=== PATIENT | female | born 1960 | race American Indian/Alaskan Native ===

== ENCOUNTER 2016-09-21 06:10 | Day surgery (SDC) | payer BC ==
[2016-09-21] MEDS ORDERED: ECOTRIN PO ONE (06:46)
[2016-09-21] MEDS ORDERED: NACL 0.9% 500 ML 500 ML IV SCH (07:00)
[2016-09-21] MEDS ORDERED: CALAN ONE (08:31)
[2016-09-21] MEDS ORDERED: HEPARIN/NS 5000 UNIT/500ML(CATH LAB) 1,000 ML IR ONE (08:31)
[2016-09-21] MEDS ORDERED: HEPARIN 10,000 UNITS/10 ML ONE (08:31)
[2016-09-21] MEDS ORDERED: NITROGLYCERIN SYRINGE 3 ML ONE (08:32)
[2016-09-21] MEDS: XYLOCAINE 2% INFILTRATI ONE ×2 (08:56→09:10)
[2016-09-21] MEDS: VERSED ONE ×3 (08:56→09:13)
[2016-09-21] MEDS: SUBLIMAZE ONE ×3 (08:56→09:13)
[2016-09-21] MEDS ORDERED: APRESOLINE ONE (09:06)
[2016-09-21] MEDS ORDERED: NORMODYNE IV ONE (09:10)
[2016-09-21] MEDS ORDERED: WATER FOR INJ (PF) 0 ML ONE (09:14)
[2016-09-21] MEDS ORDERED: ANGIOMAX IV ONE (09:14)
[2016-09-21] MEDS ORDERED: NACL 0.9% 0 ML ONE (09:14)
[2016-09-21] MEDS ORDERED: NITROSTAT SL ONE (09:16)
[2016-09-21] MEDS ORDERED: LASIX ONE (09:19)
--- NOTE | 2016-09-21 09:43 | Short Stay Summary ---
Short Stay Documentation Date of service: 09/21/16 - History H&P: obtained from office - Allergies and Medications Current Medications: Allergies Penicillins Allergy (Severe, Verified 09/28/15 09:22) GO INTO SHOCK Home Medications Medication Instructions Recorded Confirmed Last Taken Type Aspirin EC [Aspirin Enteric Coated 81 mg PO QDAY #30 tablet 09/30/15 09/21/16 Rx TAB] Furosemide [Lasix TAB] 40 mg PO QDAY #30 tablet 09/30/15 09/21/16 09/20/16 Rx Valsartan [Diovan] 320 mg PO DAILY #60 tablet 09/30/15 09/21/16 09/20/16 Rx metFORMIN [Glucophage] 500 mg PO QDAY #30 tab 09/30/15 09/21/16 09/20/16 Rx oxyCODONE /ACETAMINOPHEN [Percocet 1 tab PO Q6H PRN #20 tablet 09/30/15 Unknown Rx 5/325 mg] cloNIDine [Catapres] 0.2 mg PO BID 09/21/16 09/21/16 09/20/16 History Active Medications Sodium Chloride (Nacl 0.9% 500 Ml) 500 mls @ 50 mls/hr IV DIRECT ANN MARIE Stop: 09/21/16 16:59 Last Admin: 09/21/16 08:00 Dose: 50 mls/hr - Brief post op/procedure progress note Date of procedure: 09/21/16 Pre-op diagnosis: sob Post-op diagnosis: same Procedure: see report Anesthesia: local Estimated blood loss: none Pathology: none - Disposition Condition at discharge: Good Disposition: DISCHARGED TO HOME OR SELFCARE - Discharge Diagnoses (1) SOBOE (shortness of breath on exertion) Status: Acute (2) Acute on chronic diastolic heart failure Status: Chronic (3) COPD with chronic bronchitis Status: Chronic (4) CAD (coronary artery disease) Status: Chronic Qualifiers: Coronary Disease-Associated Artery/Lesion type: [place] artery [place] vs. transplanted heart: comanche heart Associated angina: with stable angina Qualified Code(s): I25.118 - Atherosclerotic heart disease of [place] coronary artery with other forms of angina pectoris (5) Hyperlipidemia Status: Chronic Qualifiers: Hyperlipidemia type: mixed hyperlipidemia Qualified Code(s): E78.2 - Mixed hyperlipidemia (6) Hypertension Status: Chronic Qualifiers: Hypertension type: essential hypertension Qualified Code(s): I10 - Essential (primary) hypertension (7) Morbid obesity Status: Chronic Qualifiers: Obesity type: due to excess calories Qualified Code(s): E66.01 - Morbid ( severe) obesity due to excess calories (8) Obstructive sleep apnea Status: Chronic (9) Tobacco abuse Status: Chronic Short Stay Discharge Plan Activity: advance as tolerated Diet: low fat, low cholesterol, low salt, diabetic Wound: keep clean and dry Special Instructions: hold Metformin (for two days) Follow up with: VIPUL JACOBS MD [Primary Care Provider] - 7 Days
--- NOTE | 2016-09-21 10:35 | Cardiac Catherization Report ---
LEFT HEART CATHETERIZATION ORDERING PHYSICIAN: Emmanuel Garsia M.D. CLINICAL INFORMATION: This is a 56-year-old female with morbid obesity, smoker, hypertension and has known coronary artery disease, PCI of the ramus several years ago last year had PCI of the mid RCA with a drug-eluting Resolute 3, presents with shortness of breath with minimal exertion with elevated BP, and in view of patient's risk factors and is on appropriate medications here for left heart catheterization. Left heart catheterization performed via the right radial artery, sterile technique, local anesthesia, 6-Namibian radial sheath inserted. FINDINGS: Left system with a JL3.5 catheter. It is a short left main. LAD is a large caliber vessel that is patent from proximally and distally is a wraparound LAD with mild luminal irregularities. Diagonal 1, diagonal 2, and medium caliber vessels are patent. Ramus is a medium caliber vessel, mid stent is widely patent just proximal to that is about 20% lesion. Circumflex and AV groove is a large caliber vessel, patent. OM1 is a medium caliber vessel, has a mid diffuse 50%. RCA engaged with JR4, is a medium caliber vessel with moderate tortuosity, proximal is patent, mid stent widely patent distal patent. Small PDA and PLV. LV gram done in the JAQUELINE and LYNNE view shows normal LV function, LVEDP of 40 to 45 mmHg, LV is 198/18, aortic is 204/113, no gradient across the aortic valve on pullback. 5-Namibian catheters were taken over a 6-Namibian sheath taken out. Radial dressing applied. No hematoma. No bleeding. SUMMARY: 1. Nonobstructive coronary artery disease left main short and patent. LAD large caliber wraparound LAD with mild luminal irregularities. Diagonal 1 and diagonal 2 are patent, circumflex and AV groove patent. Ramus stent patent, proximally 20%. OM1 is medium caliber vessel to the mid 50%. RCA mid stent widely patent with moderate tortuosity. 2. Normal LV function with elevated left end-diastolic pressure. The patient's shortness of breath for uncontrolled BP and diastolic dysfunction. The patient received 40 of Lasix during the procedure and also IV labetalol and hydralazine for better BP control. JOB# [id number] KINA/MARCK
[2016-09-21 11:22] VITALS: BP 157/91
== END 2016-09-21 11:40 | disposition home or self-care (01) ==
LOC: OPU 06:10
PROVIDERS: ATTEND Internal Medicine
DX: I25.10 Atherosclerotic heart disease of native coronary artery without angina pectoris (principal); I11.0 Hypertensive heart disease with heart failure; I50.33 Acute on chronic diastolic (congestive) heart failure; J44.9 Chronic obstructive pulmonary disease, unspecified; F17.210 Nicotine dependence, cigarettes, uncomplicated; E78.5 Hyperlipidemia, unspecified; G47.33 Obstructive sleep apnea (adult) (pediatric); E66.01 Morbid (severe) obesity due to excess calories; Z68.42 Body mass index [BMI] 45.0-49.9, adult; Z95.5 Presence of coronary angioplasty implant and graft; Z79.899 Other long term (current) drug therapy
CPT/HCPCS: 93005; 93010; 93458; C1894; J0360; J1644; J1940; J2250; J3010; J7040; J0583; Q9967

== ENCOUNTER 2018-06-19 15:01 | Inpatient (IN) | payer BC ==
[2018-06-19] MEDS ORDERED: ASPIRIN PO ONE (15:20)
--- NOTE | 2018-06-19 15:20 | Emergency Department Report ---
Blank Doc - Documentation Documentation: This is a 58-year-old female c/o chest pain and shortness of breathe x2 days. Patient stated that feels like someone is sitting on her chest. Patient also has some nausea and vomiting. Denies any radiation. PMH includes Cardiac stents, CHF, HTN, DM Will order EKG, Labs, CXR Sent to Main ED for further evaluation and treatment
[2018-06-19] MEDS ORDERED: NITROSTAT SL ONE (15:21)
[2018-06-19] MEDS ORDERED: BABY ASPIRIN ONE (15:24)
[2018-06-19 15:51] LABS: Basophils # (Auto) 0.1 K/mm3 (0.0-0.1); Basophils % (Auto) 0.9 % (0.0-1.8); Eosinophils # (Auto) 0.3 K/mm3 (0.0-0.4); Eosinophils % (Auto) 4.6 % (0.0-4.3); Hematocrit 32.7 % (30.3-42.9); Hemoglobin 10.1 gm/dl (10.1-14.3); Lymphocytes # (Auto) 1.6 K/mm3 (1.2-5.4); Lymphocytes % (Auto) 22.4 % (13.4-35.0); Mean Corpuscular HGB Conc 31 % (30-34); Monocytes # (Auto) 0.6 K/mm3 (0.0-0.8); Monocytes % (Auto) 7.7 % (0.0-7.3); Platelet Count 325 K/mm3 (140-440); Red Blood Count 4.97 M/mm3 (3.65-5.03)
[2018-06-19 15:52] LABS: Mean Corpuscular Volume 66 fl (79-97); Red Cell Distribution Width 20.8 % (13.2-15.2)
[2018-06-19 16:01] LABS: INR 0.9 (0.87-1.13)
[2018-06-19 16:16] LABS: Partial Thromboplastin Time 62.1 Sec. (24.2-36.6)
--- NOTE | 2018-06-19 16:16 | XRay Report ---
FINAL REPORT PROCEDURE: Chest. TECHNIQUE: Portable AP view. HISTORY: Chest pain. COMPARISON: No prior studies are available for comparison. FINDINGS: The radiograph is underpenetrated. The heart size is enlarged. There is tortuosity of the thoracic ao rta. The lungs are grossly clear. There are no pleural effusions. The soft tissues and regional skele ton are unremarkable. IMPRESSION: Limited study. Mild cardiomegaly.
[2018-06-19 16:50] LABS: Alanine Aminotransferase 11 units/L (7-56); Albumin 3.4 g/dL (3.9-5); BUN/Creatinine Ratio 17; Blood Urea Nitrogen 12 mg/dL (7-17); Calcium 8.6 mg/dL (8.4-10.2); Hemolysis Index 15
[2018-06-19] MEDS ORDERED: MORPHINE IV ONE ×2 (16:56→19:35)
[2018-06-19] MEDS ORDERED: NORMODYNE IV ONE (16:56)
[2018-06-19 17:25] LABS: Chol/HDL Ratio 4.57 %; HDL Cholesterol 28 mg/dL (40-59); LDL Cholesterol,Direct 92 mg/dL (50-130)
[2018-06-19] MEDS ORDERED: NITRO-BID 2% TP ONE (17:28)
--- NOTE | 2018-06-19 17:29 | Emergency Department Report ---
ED Chest Pain HPI - General Chief Complaint: Chest Pain Stated Complaint: CHEST PAIN Time Seen by Provider: 06/19/18 15:21 Source: patient Mode of arrival: Ambulatory Limitations: No Limitations - History of Present Illness Initial Comments: 58 year-old female presents to the emergency department from home with complaint of some midsternal to left-sided chest pain, nausea, vomiting and diarrhea, that all started about Saturday, 4 days ago. Patient says it feels like "something is sitting on my chest." There is associated shortness of breath. She also complains of some right ear pain and throat pain. She denies any fever. Patient has a past medical history of hypertension, CHF, coronary artery disease with stents. She is a tobacco smoker. No recent travel or sick contacts at home. She did not take anything for her symptoms prior to presentation. Primary care physician is Dr. Marion and she follows with [facility] cardiology. Severity scale (0 -10): 10 - Related Data Home Medications Medication Instructions Recorded Confirmed Last Taken Clonidine HCl [Catapres] 0.3 mg PO BID 06/19/18 06/19/18 Unknown Furosemide [Lasix] 80 mg PO DAILY 06/19/18 06/19/18 Unknown Nitroglycerin [Nitrostat] 0.4 mg SL TID 06/19/18 06/19/18 Unknown Allergies Allergy/AdvReac Type Severity Reaction Status Date / Time Penicillins Allergy Severe GO INTO Verified 06/19/18 15:03 SHOCK Heart Score - HEART Score History: Moderately suspicious EKG: Non-specific Age: 45-65 Risk factors: > 3 risk factors or hx of atherosclerotic disease Troponin: > 3x normal limit HEART Score: 7 - Critical Actions Critical Actions: >7 pts:50-65% risk of adverse cardiac event. Early invasive measures ED Review of Systems ROS: Stated complaint: CHEST PAIN Other details as noted in HPI Comment: All other systems reviewed and negative Constitutional: denies: chills, fever Eyes: denies: eye pain, vision change ENT: ear pain, throat pain Respiratory: shortness of breath. denies: cough Cardiovascular: chest pain. denies: edema Gastrointestinal: denies: abdominal pain, vomiting Genitourinary: denies: dysuria, discharge Musculoskeletal: denies: back pain, arthralgia Skin: denies: rash, lesions Neurological: denies: headache, weakness ED Past Medical Hx - Past Medical History Hx Hypertension: Yes Hx Heart Attack/AMI: No Hx Congestive Heart Failure: Yes Hx Diabetes: Yes Hx Deep Vein Thrombosis: Yes Hx Arthritis: Yes Hx COPD: Yes Additional medical history: CAD - Surgical History Hx Coronary Stent: Yes (2004, 2007, 09/2015) Hx Cholecystectomy: Yes Hx Appendectomy: Yes Additional Surgical History: HYSTERECTOMY. TONSILLECTOMY - Social History Smoking Status: Unknown if ever smoked Substance Use Type: None - Medications Home Medications: Home Medications Medication Instructions Recorded Confirmed Last Taken Type Clonidine HCl [Catapres] 0.3 mg PO BID 06/19/18 06/19/18 Unknown History Furosemide [Lasix] 80 mg PO DAILY 06/19/18 06/19/18 Unknown History Nitroglycerin [Nitrostat] 0.4 mg SL TID 06/19/18 06/19/18 Unknown History ED Physical Exam - General Limitations: No Limitations - Other Other exam information: GENERAL: The patient is well-developed well-nourished. HEENT: Normocephalic. Atraumatic. Patient has moist mucous membranes. Oropharynx is clear. Normal-appearing bilateral external ear canals and tympanic membranes. EYES: Extraocular motions are intact. Pupils are equal and reactive to light bilaterally. NECK: Supple. Trachea is midline. CHEST/LUNGS: Clear to auscultation. There is no respiratory distress noted. No chest pain to palpation of the chest wall. HEART/CARDIOVASCULAR: Regular. There is no tachycardia. There is no obvious murmur. ABDOMEN: Abdomen is soft, nontender. Patient has normal bowel sounds. Obese habitus. SKIN: Skin is warm and dry. NEURO: The patient is awake, alert, and oriented. The patient is cooperative. The patient has no focal neurologic deficits. The patient has normal speech. MUSCULOSKELETAL: There is no tenderness or deformity. There is no limitation range of motion. There is no evidence of acute injury. ED Course Vital Signs 06/19/18 06/19/18 06/19/18 15:20 15:23 15:28 Temperature 98.4 F Pulse Rate 105 H 105 H 105 H Respiratory 26 H Rate Blood Pressure 219/137 219/137 219/137 Blood Pressure [Right] O2 Sat by Pulse 93 100 Oximetry 06/19/18 06/19/18 06/19/18 15:42 15:45 16:01 Temperature Pulse Rate 105 H 97 H 89 Respiratory 22 23 Rate Blood Pressure Blood Pressure [Right] O2 Sat by Pulse 98 98 Oximetry 06/19/18 06/19/18 06/19/18 16:15 16:31 16:45 Temperature Pulse Rate 75 93 H 76 Respiratory 17 14 15 Rate Blood Pressure Blood Pressure [Right] O2 Sat by Pulse 95 95 91 Oximetry 06/19/18 06/19/18 06/19/18 17:01 17:15 17:31 Temperature Pulse Rate 84 80 81 Respiratory 20 20 21 Rate Blood Pressure 198/87 198/87 Blood Pressure [Right] O2 Sat by Pulse 96 91 94 Oximetry 06/19/18 06/19/18 06/19/18 17:45 18:01 19:19 Temperature 98.3 F Pulse Rate 74 73 88 Respiratory 15 15 20 Rate Blood Pressure 198/87 198/87 Blood Pressure 196/89 [Right] O2 Sat by Pulse 94 91 97 Oximetry - Consultations Consultation #1: I spoke with the preassembler and inspector air conditioning installer for [facility], Dr. Hernandez. He recommended starting heparin, Nitropaste, nothing after midnight to eat and they will see the patient has a consult. 06/19/18 20:07 LAMIN score - Lamin Score Age > 65: (0) No Aspirin use within the Past 7 Days: (1) Yes 3 or more CAD Risk Factors: (1) Yes 2 or more Angina events in past 24 hrs: (1) Yes Known CAD with more than 50% Stenosis: (1) Yes Elevated Cardiac Markers: (0) No ST Deviation Greater than 0.5mm: (0) No LAMIN Score: 4 ED Medical Decision Making - Lab Data Result diagrams: 06/19/18 15:40 06/19/18 16:13 - EKG Data -: EKG Interpreted by Me EKG shows normal: sinus rhythm, axis, intervals, QRS complexes (Q waves to the septal leads), ST-T waves Rate: normal - EKG Data When compared to previous EKG there are: no significant change Interpretation: unchanged when compared t (03/15/17) - Radiology Data Radiology results: report reviewed, image reviewed interpreted by me: Chest x-ray does not show any pneumothorax, pleural effusion, pneumonia or obvious focal consolidation. PROCEDURE: CT angiogram chest with contrast. TECHNIQUE: Computerized tomographic angiography of the chest was performed after the IV injection of iodinated nonionic contrast including image processing. The image data was postprocessed using 2- dimensional multiplanar reformatted (MPR) and 3-dimensional (MIP and/or volume rendered) techniques. HISTORY: Chest pain, elevated D-dimer. COMPARISON: No prior studies are available for comparison. FINDINGS: Image quality is limited by the patient's obesity. The trachea and central bronchi appear normal. There is mild subsegmental atelectasis located laterally in the lingula. The lungs are otherwise grossly clear. There are no pleural effusions. The thoracic aorta has a normal caliber without evidence of dissection. The pulmonary arteries enhance normally. There are no definite filling defects to indicate pulmonary embolism. There are small nonspecific mediastinal lymph nodes. The heart size is mildly enlarged. The adrenal glands are not enlarged. The thoracic skeleton appears intact. IMPRESSION: No evidence of pulmonary embolism. Mild cardiomegaly. Transcribed By: RAMSEY Dictated By: JEAN CLAUDE MOORE MD Electronically Authenticated By: JEAN CLAUDE MOORE MD Signed Date/Time: 06/19/181956 - Medical Decision Making Patient presents with a four-day history of chest pain, nausea, vomiting, diarrhea. Just complains of some right ear pain. EKG does not show any signs of ST elevation WI. Chest x-ray does not show any focal consolidation, pneumothorax, pleural effusions, pneumonia or any other acute process. Patient does have an elevated d-dimer and therefore a CT angiography of the chest was done but there was no signs of any pulmonary embolism. Patient does have eleva abhinav troponin levels that are trending upwards without any renal insufficiency. I spoke with cardiology and they are aware of the patient's presentation, lab results, EKG and will see the patient is a consult. The patient has been started on a heparin drip and given a 1 inch Nitropaste. The patient will be admitted to the hospital for further evaluation and treatment was accepted for admission by the hospitalist service. - Differential Diagnosis WI, PE, Costochondritis, Gerd, Pneumonia Critical Care Time: Yes Critical care time in (mins) excluding proc time.: 35 Critical care attestation.: If time is entered above; I have spent that time in minutes in the direct care of this critically ill patient, excluding procedure time. Critical time has been spent on this patient during her initial evaluation, multiple re-evaluations, ordering and interpretation of labs and imaging, discussion with the hospitalist and cardiology service. There is a high probability of clinically significant, sudden, or life-threatening deterioration that has required multiple and direct attention, intervention, and management. Critical Care Time: 35 minutes ED Disposition Clinical Impression: NSTEMI (non-ST elevated myocardial infarction), Hypertensive urgency, Acute chest pain Disposition: 09 OP ADMIT IP TO THIS HOSP Is pt being admited?: Yes Condition: Serious Time of Disposition: 19:32
[2018-06-19] MEDS ORDERED: HEPARIN 10,000 UNITS/10 ML IV ONE (18:36)
[2018-06-19] MEDS ORDERED: HEPARIN/ 0.45% NACL-25,000 UNIT/500 ML 25,000 UNIT/500 ML BAG IV SCH (19:00)
--- NOTE | 2018-06-19 19:57 | Cat Scan Report ---
FINAL REPORT PROCEDURE: CT angiogram chest with contrast. TECHNIQUE: Computerized tomographic angiography of the chest was performed after the IV injection of iodinated nonionic contrast including image processing. The image data was postprocessed using 2-dim ensional multiplanar reformatted (MPR) and 3-dimensional (MIP and/or volume rendered) techniques. HISTORY: Chest pain, elevated D-dimer. COMPARISON: No prior studies are available for comparison. FINDINGS: Image quality is limited by the patient's obesity. The trachea and central bronchi appear normal. The re is mild subsegmental atelectasis located laterally in the lingula. The lungs are otherwise grossly clear. There are no pleural effusions. The thoracic aorta has a normal caliber without evidence of d issection. The pulmonary arteries enhance normally. There are no definite filling defects to indicate pulmonary embolism. There are small nonspecific mediastinal lymph nodes. The heart size is mildly en larged. The adrenal glands are not enlarged. The thoracic skeleton appears intact. IMPRESSION: No evidence of pulmonary embolism. Mild cardiomegaly.
[2018-06-19] MEDS ORDERED: TYLENOL PO PRN (20:24)
[2018-06-19] MEDS ORDERED: NITROSTAT SL PRN (20:24)
[2018-06-19] MEDS ORDERED: SODIUM CHLORIDE FLUSH SYRINGE 10 ML IV PRN (20:24)
--- NOTE | 2018-06-19 21:26 | History and Physical Report ---
<IMELDA MCGEE - Last Filed: 06/20/18 02:32> History of Present Illness Date of examination: 06/19/18 Date of admission: 06/19/18 19:32 Chief complaint: chest pain History of present illness: Pt is a 58 year-old black female with PMHx od CAD s/p stent, DM type2, who presents to the ER today from home with complaint of midsternal chest pain x 4 days. Pt states that the symptoms started on Saturday (4 days ago), she developed chest pain, sudden nausea/vomiting and diarrhea, diaphoresis and SOB, pt states that the pain is located in the midsternal area, it was a pressure-like pain, it felt like "something is sitting on my chest." Pt states that she was having SOB, rigging in the right ear pain and throat pain. Patient states at first she thought that she was getting sick, but she states when the chest pain increased and became persisted today she decided to come to the ER for evaluation. Pt denies any headache, denies LOC, denies chills, denies cough, denies chest congestion. In the ER, pt c/o chest pain 10/10 in intensity, EKG shows no ST elevation criteria, her first troponin was elevated at 0.261. Pt reports an intense family history of heart disease in her father side, most of the family in the father side is including her father and her grand mother. Pt states that she has been following with cardiology frequently for cardiac disease, her Primary care physician is Dr. Marion and her cardiology is with [facility]. Medications and Allergies Allergies Allergy/AdvReac Type Severity Reaction Status Date / Time Penicillins Allergy Severe GO INTO Verified 06/19/18 15:03 SHOCK Home Medications Medication Instructions Recorded Confirmed Last Taken Type Clonidine HCl [Catapres] 0.3 mg PO BID 06/19/18 06/19/18 Unknown History Furosemide [Lasix] 80 mg PO DAILY 06/19/18 06/19/18 Unknown History Nitroglycerin [Nitrostat] 0.4 mg SL TID 06/19/18 06/19/18 Unknown History Active Meds: Active Medications Acetaminophen (Tylenol) 650 mg PO Q4H PRN PRN Reason: Pain MILD(1-3)/Fever >100.5/ALAS Atorvastatin Calcium (Lipitor) 40 mg PO QHS [facility] Famotidine (Pepcid) 20 mg IV BID [facility] Heparin Sodium/Sodium Chloride (Heparin/ 0.45% Nacl-25,000 Unit/500 Ml) 25,000 unit in 500 mls @ 20 mls/hr IV TITRATE [facility]; Protocol Last Admin: 06/19/18 19:30 Dose: 1,000 units/hr, 20 mls/hr Documented by: Metoprolol Tartrate (Lopressor) 50 mg PO BID [facility] Morphine Sulfate (Morphine) 2 mg IV Q4H PRN PRN Reason: Pain, Moderate (4-6) Nitroglycerin (Nitrostat) 0.4 mg SL .Q5MIN PRN PRN Reason: Chest Pain Ondansetron HCl (Zofran) 4 mg IV Q8H PRN PRN Reason: Nausea And Vomiting Sodium Chloride (Sodium Chloride Flush Syringe 10 Ml) 10 ml IV BID [facility] Sodium Chloride (Sodium Chloride Flush Syringe 10 Ml) 10 ml IV PRN PRN PRN Reason: LINE FLUSH Exam - Constitutional Vitals: Temp Pulse Resp BP Pulse Ox 98.3 F 75 15 187/98 90 06/19/18 19:19 06/19/18 20:31 06/19/18 20:31 06/19/18 20:31 06/19/18 20:31 General appearance: Present: no acute distress - EENT Eyes: Present: PERRL, EOM intact ENT: hearing intact - Neck Neck: Present: normal ROM - Respiratory Respiratory effort: normal Respiratory: bilateral: diminished - Cardiovascular Rhythm: regular - Extremities Extremities: no ischemia - Abdominal General gastrointestinal: Present: non-tender, non-distended Female genitourinary: Present: deferred - Rectal Rectal Exam: deferred - Integumentary Integumentary: Present: warm, dry - Musculoskeletal Musculoskeletal: strength equal bilaterally - Psychiatric Psychiatric: appropriate mood/affect - Neurologic Neurologic: moves all extremities Results - Labs CBC & Chem 7: 06/19/18 15:40 06/19/18 16:13 Labs: Laboratory Last Values WBC 7.3 K/mm3 (4.5-11.0) 06/19/18 15:40 RBC 4.97 M/mm3 (3.65-5.03) 06/19/18 15:40 Hgb 10.1 gm/dl (10.1-14.3) 06/19/18 15:40 Hct 32.7 % (30.3-42.9) 06/19/18 15:40 MCV 66 fl (79-97) L 06/19/18 15:40 MCH 20 pg (28-32) L 06/19/18 15:40 MCHC 31 % (30-34) 06/19/18 15:40 RDW 20.8 % (13.2-15.2) H 06/19/18 15:40 Plt Count 325 K/mm3 (140-440) 06/19/18 15:40 Lymph % (Auto) 22.4 % (13.4-35.0) 06/19/18 15:40 [place] % (Auto) 7.7 % (0.0-7.3) H 06/19/18 15:40 Eos % (Auto) 4.6 % (0.0-4.3) H 06/19/18 15:40 Baso % (Auto) 0.9 % (0.0-1.8) 06/19/18 15:40 Lymph # 1.6 K/mm3 (1.2-5.4) 06/19/18 15:40 [place] # 0.6 K/mm3 (0.0-0.8) 06/19/18 15:40 Eos # 0.3 K/mm3 (0.0-0.4) 06/19/18 15:40 Baso # 0.1 K/mm3 (0.0-0.1) 06/19/18 15:40 Seg Neutrophils % 64.4 % (40.0-70.0) 06/19/18 15:40 Seg Neutrophils # 4.7 K/mm3 (1.8-7.7) 06/19/18 15:40 PT 12.6 Sec. (12.2-14.9) 06/19/18 15:40 INR 0.90 (0.87-1.13) 06/19/18 15:40 APTT 65.0 Sec. (24.2-36.6) H* 06/19/18 17:40 D-Dimer 621.4 ng/mlDDU (0-234) H 06/19/18 15:40 Sodium 141 mmol/L (137-145) 06/19/18 16:13 Potassium 3.8 mmol/L (3.6-5.0) 06/19/18 16:13 Chloride 106.0 mmol/L (98-107) 06/19/18 16:13 Carbon Dioxide 24 mmol/L (22-30) 06/19/18 16:13 Anion Gap 15 mmol/L 06/19/18 16:13 BUN 12 mg/dL (7-17) 06/19/18 16:13 Creatinine 0.7 mg/dL (0.7-1.2) 06/19/18 16:13 Estimated GFR > 60 ml/min 06/19/18 16:13 BUN/Creatinine Ratio 17 % 06/19/18 16:13 Glucose 94 mg/dL (65-100) 06/19/18 16:13 Calcium 8.6 mg/dL (8.4-10.2) 06/19/18 16:13 Total Bilirubin < 0.20 mg/dL (0.1-1.2) 06/19/18 16:13 AST 23 units/L (5-40) 06/19/18 16:13 ALT 11 units/L (7-56) 06/19/18 16:13 Alkaline Phosphatase 159 units/L (35-129) H 06/19/18 16:13 Troponin T 0.347 ng/mL (0.00-0.029) H* D 06/19/18 17:40 Total Protein 7.1 g/dL (6.3-8.2) 06/19/18 16:13 Albumin 3.4 g/dL (3.9-5) L 06/19/18 16:13 Albumin/Globulin Ratio 0.9 % 06/19/18 16:13 Triglycerides 87 mg/dL (2-149) 06/19/18 16:13 Cholesterol 128 mg/dL (50-199) 06/19/18 16:13 LDL Cholesterol Direct 92 mg/dL (50-130) 06/19/18 16:13 HDL Cholesterol 28 mg/dL (40-59) L 06/19/18 16:13 Cholesterol/HDL Ratio 4.57 % 06/19/18 16:13 Assessment and Plan Assessment and plan: 1. Chest pain 2. NSTEMI 3. CAD/s/p PTCA with stent 4. Accelerated HTN 5. Uncontrolled DM type 2 6. Morbid obesity 7. Tobacco used disorder Plan: Admit to medtele for chest pain Continue CE Q6hr x2 more Heparin gtt infusing per protocol Nitro sublingual PRN for chest pain Repeat EKG in am Morphine PRN for chest pain Resume home meds Accu check ACHS with insulin per sliding scale Consult cardiology for evaluation in am Further plan per cardiology recommendation Plan was d/w pt, voiced understanding Pt's condition and plan of care discussed with Advance Directives: Yes VTE prophylaxis?: Mechanical Plan of care discussed with patient/family: Yes <HUONG MEAD - Last Filed: 06/20/18 03:57> History of Present Illness Date of admission: 06/19/18 19:32 Medications and Allergies Active Meds: Active Medications Acetaminophen (Tylenol) 650 mg PO Q4H PRN PRN Reason: Pain MILD(1-3)/Fever >100.5/ALAS Aspirin (Baby Aspirin) 81 mg PO QDAY [facility] Atorvastatin Calcium (Lipitor) 40 mg PO QHS [facility] Last Admin: 06/19/18 21:56 Dose: 40 mg Documented by: Famotidine (Pepcid) 20 mg IV BID [facility] Last Admin: 06/19/18 21:56 Dose: 20 mg Documented by: Furosemide (Lasix) 80 mg PO DAILY@0600 [facility] Hydralazine HCl (Apresoline) 5 mg IV Q6H PRN PRN Reason: Hypertension Last Admin: 06/20/18 02:22 Dose: 5 mg Documented by: Heparin Sodium/Sodium Chloride (Heparin/ 0.45% Nacl-25,000 Unit/500 Ml) 25,000 unit in 500 mls @ 20 mls/hr IV TITRATE [facility]; Protocol Last Titration: 06/20/18 03:35 Dose: 1,500 units/hr, 30 mls/hr Documented by: Lisinopril (Zestril) 2.5 mg PO QDAY [facility] Metoprolol Tartrate (Lopressor) 50 mg PO BID [facility] Last Admin: 06/19/18 21:56 Dose: 50 mg Documented by: Morphine Sulfate (Morphine) 2 mg IV Q4H PRN PRN Reason: Pain, Moderate (4-6) Last Admin: 06/19/18 22:12 Dose: 2 mg Documented by: Nitroglycerin (Nitrostat) 0.4 mg SL .Q5MIN PRN PRN Reason: Chest Pain Ondansetron HCl (Zofran) 4 mg IV Q8H PRN PRN Reason: Nausea And Vomiting Last Admin: 06/19/18 22:12 Dose: 4 mg Documented by: Sodium Chloride (Sodium Chloride Flush Syringe 10 Ml) 10 ml IV BID [facility] Last Admin: 06/19/18 21:57 Dose: 10 ml Documented by: Sodium Chloride (Sodium Chloride Flush Syringe 10 Ml) 10 ml IV PRN PRN PRN Reason: LINE FLUSH Exam - Constitutional Vitals: Temp Pulse Resp BP Pulse Ox 98.4 F 67 18 177/103 99 06/19/18 23:57 06/19/18 23:57 06/19/18 23:57 06/20/18 02:22 06/19/18 23:57 Results - Labs CBC & Chem 7: 06/19/18 15:40 06/19/18 16:13 Labs: Laboratory Last Values WBC 7.3 K/mm3 (4.5-11.0) 06/19/18 15:40 RBC 4.97 M/mm3 (3.65-5.03) 06/19/18 15:40 Hgb 10.1 gm/dl (10.1-14.3) 06/19/18 15:40 Hct 32.7 % (30.3-42.9) 06/19/18 15:40 MCV 66 fl (79-97) L 06/19/18 15:40 MCH 20 pg (28-32) L 06/19/18 15:40 MCHC 31 % (30-34) 06/19/18 15:40 RDW 20.8 % (13.2-15.2) H 06/19/18 15:40 Plt Count 325 K/mm3 (140-440) 06/19/18 15:40 Lymph % (Auto) 22.4 % (13.4-35.0) 06/19/18 15:40 [place] % (Auto) 7.7 % (0.0-7.3) H 06/19/18 15:40 Eos % (Auto) 4.6 % (0.0-4.3) H 06/19/18 15:40 Baso % (Auto) 0.9 % (0.0-1.8) 06/19/18 15:40 Lymph # 1.6 K/mm3 (1.2-5.4) 06/19/18 15:40 [place] # 0.6 K/mm3 (0.0-0.8) 06/19/18 15:40 Eos # 0.3 K/mm3 (0.0-0.4) 06/19/18 15:40 Baso # 0.1 K/mm3 (0.0-0.1) 06/19/18 15:40 Seg Neutrophils % 64.4 % (40.0-70.0) 06/19/18 15:40 Seg Neutrophils # 4.7 K/mm3 (1.8-7.7) 06/19/18 15:40 PT 12.6 Sec. (12.2-14.9) 06/19/18 15:40 INR 0.90 (0.87-1.13) 06/19/18 15:40 APTT 65.0 Sec. (24.2-36.6) H* 06/19/18 17:40 D-Dimer 621.4 ng/mlDDU (0-234) H 06/19/18 15:40 Heparin Anti-Xa Level < 0.10 U.I./ml (0.3-0.7) L 06/20/18 02:37 Sodium 141 mmol/L (137-145) 06/19/18 16:13 Potassium 3.8 mmol/L (3.6-5.0) 06/19/18 16:13 Chloride 106.0 mmol/L (98-107) 06/19/18 16:13 Carbon Dioxide 24 mmol/L (22-30) 06/19/18 16:13 Anion Gap 15 mmol/L 06/19/18 16:13 BUN 12 mg/dL (7-17) 06/19/18 16:13 Creatinine 0.7 mg/dL (0.7-1.2) 06/19/18 16:13 Estimated GFR > 60 ml/min 06/19/18 16:13 BUN/Creatinine Ratio 17 % 06/19/18 16:13 Glucose 94 mg/dL (65-100) 06/19/18 16:13 Hemoglobin A1c 6.4 % (4-6) H 06/19/18 23:00 Calcium 8.6 mg/dL (8.4-10.2) 06/19/18 16:13 Total Bilirubin < 0.20 mg/dL (0.1-1.2) 06/19/18 16:13 AST 23 units/L (5-40) 06/19/18 16:13 ALT 11 units/L (7-56) 06/19/18 16:13 Alkaline Phosphatase 159 units/L (35-129) H 06/19/18 16:13 Total Creatine Kinase 704 units/L (30-135) H 06/20/18 02:37 CK-MB (CK-2) 107.7 ng/mL (0.0-4.0) H 06/20/18 02:37 CK-MB (CK-2) Rel Index 15.2 (0-4) H 06/20/18 02:37 Troponin T 0.347 ng/mL (0.00-0.029) H* D 06/19/18 17:40 Total Protein 7.1 g/dL (6.3-8.2) 06/19/18 16:13 Albumin 3.4 g/dL (3.9-5) L 06/19/18 16:13 Albumin/Globulin Ratio 0.9 % 06/19/18 16:13 Triglycerides 87 mg/dL (2-149) 06/19/18 16:13 Cholesterol 128 mg/dL (50-199) 06/19/18 16:13 LDL Cholesterol Direct 92 mg/dL (50-130) 06/19/18 16:13 HDL Cholesterol 28 mg/dL (40-59) L 06/19/18 16:13 Cholesterol/HDL Ratio 4.57 % 06/19/18 16:13 TSH 1.050 mlU/mL (0.270-4.200) 06/19/18 20:50 Assessment and Plan Assessment and plan: 58-year-old man with a history of hypertension, CHF, coronary artery disease, diabetes, COPD on 2 L oxygen, gout, tobacco abuse comes to the emergency room with complaints of chest pain, which she states feels as if someone is sitting on her chest. Patient became very diaphoretic, short of breath. Patient is being admitted for NSTEMI., Continue heparin drip, start beta vamsi, LETTY inhibitor, aspirin, statin, morphine,cardiology is consulted to see the patient
[2018-06-19] MEDS: LOPRESSOR PO SCH (21:56)
[2018-06-19] MEDS: PEPCID IV SCH (21:56)
[2018-06-19] MEDS ORDERED: SODIUM CHLORIDE FLUSH SYRINGE 10 ML IV SCH (22:00)
[2018-06-19] MEDS: ZOFRAN IV PRN (22:12)
[2018-06-19] MEDS: MORPHINE IV PRN (22:12)
[2018-06-20] MEDS ORDERED: APRESOLINE IV PRN ×2 (02:11→09:04)
[2018-06-20 03:18] LABS: Creatine Kinase MB 107.7 ng/mL (0.0-4.0)
[2018-06-20] MEDS ORDERED: HEPARIN 10,000 UNITS/10 ML IV ONE (03:41)
[2018-06-20] MEDS: MORPHINE IV PRN ×3 (05:56→21:30)
[2018-06-20] MEDS: ZOFRAN IV PRN (05:57)
[2018-06-20] MEDS ORDERED: LASIX PO SCH (06:00)
[2018-06-20] MEDS ORDERED: NACL 0.9% 500 ML 500 ML ONE (08:51)
[2018-06-20] MEDS ORDERED: HALFPRIN EC PO ONE (08:51)
[2018-06-20] MEDS ORDERED: TYLENOL ONE (09:02)
--- NOTE | 2018-06-20 09:13 | Consultation ---
History of Present Illness Consult date: 06/20/18 Requesting physician: CELESTINE DICKEY Consult reason: chest pain, elevated troponin History of present illness: This is a 58-year-old female with morbid obesity hypertension cholesterol known coronary disease smoker who for the last few days since Saturday had right-sided and left-sided chest pressure and some radiation to the left arm on and off thought it was food poisoning. Patient has some nausea and vomiting. No loss of consciousness no fever no chills no melena no syncope no seizures. Patient has chronic shortness of breath with exertion. Patient came to emergency room with 10 out of 10 chest pain and elevated troponin her than her normal And was admitted for acute coronary syndrome\non-ST elevation [place]. Patient been treated medically with recurrent chest pain received morphine earlier this morning. Past History Past Medical History: CAD, hypertension, hyperlipidemia Social history: smoking. denies: alcohol abuse, prescription drug abuse Medications and Allergies Allergies Allergy/AdvReac Type Severity Reaction Status Date / Time Penicillins Allergy Severe GO INTO Verified 06/19/18 15:03 SHOCK Home Medications Medication Instructions Recorded Confirmed Last Taken Type Clonidine HCl [Catapres] 0.3 mg PO BID 06/19/18 06/19/18 Unknown History Furosemide [Lasix] 80 mg PO DAILY 06/19/18 06/19/18 Unknown History Nitroglycerin [Nitrostat] 0.4 mg SL TID 06/19/18 06/19/18 Unknown History Active Meds: Active Medications Acetaminophen (Tylenol) 650 mg PO Q4H PRN PRN Reason: Pain MILD(1-3)/Fever >100.5/ALAS Last Admin: 06/20/18 09:01 Dose: 650 mg Documented by: Aspirin (Baby Aspirin) 81 mg PO QDAY [facility] Atorvastatin Calcium (Lipitor) 40 mg PO QHS [facility] Last Admin: 06/19/18 21:56 Dose: 40 mg Documented by: Famotidine (Pepcid) 20 mg IV BID [facility] Last Admin: 06/19/18 21:56 Dose: 20 mg Documented by: Furosemide (Lasix) 80 mg PO DAILY@0600 [facility] Last Admin: 06/20/18 05:53 Dose: 80 mg Documented by: Hydralazine HCl (Apresoline) 5 mg IV Q6H PRN PRN Reason: Hypertension Last Admin: 06/20/18 02:22 Dose: 5 mg Documented by: Hydralazine HCl (Apresoline) 20 mg IV ONCE ONE Stop: 06/20/18 09:05 Hydralazine HCl (Apresoline) 10 mg IV Q4HR PRN PRN Reason: Hypertension Heparin Sodium/Sodium Chloride (Heparin/ 0.45% Nacl-25,000 Unit/500 Ml) 25,000 unit in 500 mls @ 20 mls/hr IV TITRATE [facility]; Protocol Last Titration: 06/20/18 03:35 Dose: 1,500 units/hr, 30 mls/hr Documented by: Sodium Chloride (Nacl 0.9% 500 Ml) 500 mls @ 50 mls/hr IV DIRECT [facility] Stop: 06/20/18 19:59 Lisinopril (Zestril) 2.5 mg PO QDAY [facility] Metoprolol Tartrate (Lopressor) 50 mg PO BID [facility] Last Admin: 06/19/18 21:56 Dose: 50 mg Documented by: Miscellaneous Medication (Clonidine Hcl [Catapres]) 0.3 mg PO BID [facility] Morphine Sulfate (Morphine) 2 mg IV Q4H PRN PRN Reason: Pain, Moderate (4-6) Last Admin: 06/20/18 05:56 Dose: 2 mg Documented by: Nitroglycerin (Nitrostat) 0.4 mg SL .Q5MIN PRN PRN Reason: Chest Pain Ondansetron HCl (Zofran) 4 mg IV Q8H PRN PRN Reason: Nausea And Vomiting Last Admin: 06/20/18 05:57 Dose: 4 mg Documented by: Sodium Chloride (Sodium Chloride Flush Syringe 10 Ml) 10 ml IV BID [facility] Last Admin: 06/19/18 21:57 Dose: 10 ml Documented by: Sodium Chloride (Sodium Chloride Flush Syringe 10 Ml) 10 ml IV PRN PRN PRN Reason: LINE FLUSH Review of Systems All systems: negative Physical Examination Vital Signs Pulse BP Pulse Ox 105 H 219/137 93 06/19/18 15:20 06/19/18 15:20 06/19/18 15:20 General appearance: no acute distress, well-nourished HEENT: Positive: PERRL, Mucus Membranes Moist Neck: Positive: neck supple, trachea midline Cardiac: Positive: Reg Rate and Rhythm, S1/S2. Negative: Audible Murmur Lungs: Positive: clear to auscultation, Normal Breath Sounds Neuro: Positive: Grossly Intact Abdomen: Positive: Soft, Active Bowel Sounds. Negative: Tender, Distended Female genitourinary: deferred Skin: Positive: Clear Incision: Cardiac Cath Site Musculoskeletal: No Pain, Normal Range of Motion Extremities: Present: normal. Absent: edema Results 06/19/18 15:40 06/19/18 16:13 Cardiac Enzymes 06/19/18 06/20/18 Range/Units 16:13 02:37 AST 23 (5-40) units/L CK-MB (CK-2) 107.7 H (0.0-4.0) ng/mL Coagulation 06/19/18 06/19/18 Range/Units 15:40 17:40 PT 12.6 (12.2-14.9) Sec. INR 0.90 (0.87-1.13) APTT 62.1 H* 65.0 H* (24.2-36.6) Sec. Lipids 06/19/18 Range/Units 16:13 Triglycerides 87 (2-149) mg/dL Cholesterol 128 (50-199) mg/dL HDL Cholesterol 28 L (40-59) mg/dL Cholesterol/HDL Ratio 4.57 % CBC 06/19/18 Range/Units 15:40 WBC 7.3 (4.5-11.0) K/mm3 RBC 4.97 (3.65-5.03) M/mm3 Hgb 10.1 (10.1-14.3) gm/dl Hct 32.7 (30.3-42.9) % Plt Count 325 (140-440) K/mm3 Lymph # 1.6 (1.2-5.4) K/mm3 [place] # 0.6 (0.0-0.8) K/mm3 Eos # 0.3 (0.0-0.4) K/mm3 Baso # 0.1 (0.0-0.1) K/mm3 Comprehensive Metabolic Panel 06/19/18 Range/Units 16:13 Sodium 141 (137-145) mmol/L Potassium 3.8 (3.6-5.0) mmol/L Chloride 106.0 (98-107) mmol/L Carbon Dioxide 24 (22-30) mmol/L BUN 12 (7-17) mg/dL Creatinine 0.7 (0.7-1.2) mg/dL Glucose 94 (65-100) mg/dL Calcium 8.6 (8.4-10.2) mg/dL AST 23 (5-40) units/L ALT 11 (7-56) units/L Alkaline Phosphatase 159 H (35-129) units/L Total Protein 7.1 (6.3-8.2) g/dL Albumin 3.4 L (3.9-5) g/dL - Imaging and Cardiology Echo: report reviewed (03/2017 normal LV function impaired relaxation pattern no significant regurgitations) Cardiac cath: report reviewed (03/2017 left main. LAD patent mild luminal irregularities ramus stent patent proximal 20% circumflex patent RCA mid stents patent normal LV function) EKG interpretations - Telemetry EKG Rhythm: Sinus Rhythm (normal sinus rhythm nonspecific ST-T wave) Assessment and Plan Patient in view of elevated blood pressure recurrent chest pain with abnormal troponin suggestive of non-ST elevation [place] patient will proceed with cardiac catheterization continue medical management for blood pressure control patient states stopped smoking 2 weeks ago patient was explained the risk and benefits cardiac catheterization and has agreed - Patient Problems (1) Hypertensive urgency Current Visit: Yes Status: Acute (2) NSTEMI (non-ST elevated myocardial infarction) Current Visit: Yes Status: Acute (3) Acute exacerbation of CHF (congestive heart failure) Current Visit: No Status: Acute Qualifiers: Qualified Code(s): I50.43 - Acute on chronic combined systolic (congestive) and diastolic (congestive) heart failure (4) Respiratory failure Current Visit: No Status: Acute Qualifiers: Chronicity: acute Respiratory failure complication: hypoxia Qualified Code(s): J96.01 - Acute respiratory failure with hypoxia (5) Acute on chronic diastolic heart failure Current Visit: No Status: Chronic (6) Hyperlipidemia Current Visit: No Status: Chronic Qualifiers: Hyperlipidemia type: mixed hyperlipidemia Qualified Code(s): E78.2 - Mixed hyperlipidemia
[2018-06-20] MEDS ORDERED: SUBLIMAZE ONE (09:24)
[2018-06-20] MEDS ORDERED: HEPARIN/NS 5000 UNIT/500ML(CATH LAB) 1,000 ML IR ONE (09:24)
[2018-06-20] MEDS ORDERED: HEPARIN 10,000 UNITS/10 ML ONE (09:24)
[2018-06-20] MEDS ORDERED: CALAN ONE (09:25)
[2018-06-20] MEDS ORDERED: NITROGLYCERIN SYRINGE 3 ML ONE (09:25)
[2018-06-20] MEDS ORDERED: XYLOCAINE 2% INFILTRATI ONE (09:25)
[2018-06-20] MEDS: VERSED ONE ×2 (09:59→10:03)
[2018-06-20] MEDS ORDERED: NACL 0.9% 500 ML 500 ML IV SCH (10:00)
[2018-06-20] MEDS ORDERED: ZESTRIL PO SCH (10:00)
[2018-06-20] MEDS ORDERED: APRESOLINE IV ONE (10:00)
[2018-06-20] MEDS ORDERED: NON-FORMULARY (Clonidine Hcl [Catapres] 0.3 MG) PO SCH (10:00)
[2018-06-20] MEDS ORDERED: NORMODYNE IV ONE (10:08)
[2018-06-20] MEDS: ANGIOMAX IV ONE ×2 (10:12→10:18)
[2018-06-20] MEDS ORDERED: WATER FOR INJ (PF) ONE (10:13)
[2018-06-20] MEDS ORDERED: NACL 0.9% 50 ML ONE (10:13)
[2018-06-20] MEDS ORDERED: LASIX ONE (10:21)
[2018-06-20] MEDS ORDERED: ALUM-MAG HYDROX-SIMETH 200-200-20MG/5ML ONE (10:32)
[2018-06-20] MEDS ORDERED: PLAVIX ONE (10:32)
[2018-06-20] MEDS ORDERED: NACL 0.9% 1000 ML 1,000 ML IV SCH (11:00)
[2018-06-20] MEDS: CATAPRES PO SCH ×2 (13:37→21:32)
[2018-06-20] MEDS ORDERED: CATAPRES ONE (13:39)
--- NOTE | 2018-06-20 13:40 | Progress Note ---
Assessment and Plan Assessment and plan: --Non-ST elevation [place]; status post left heart catheterization; Left heart cath revealed left main patent LAD patent circumflex pain OM1 50% ramus 100% RCA stent patent EF 50% with elevated left end-diastolic pressure. PCI of the ramus with a drug- eluting 2.5 x 30 mm stent patient. Continue aspirin and Plavix and high-dose statin and beta vamsi and losartan Optimize blood pressure medications --Hypertensive urgency; continue current antihypertensives, adjusted dose When necessary hydralazine --History of coronary artery disease status post PCI/stent; Continue current cardiac medications, cardiology following --Type 2 diabetes mellitus; Accu-Chek sliding scale coverage ADA diet and insulin as needed --Morbid obesity; BMI 49.1; advised diet modification and exercise as tolerated and weight reduction, when medically stable --Ongoing tobacco use; smoking cessation, nicotine patch as needed --DVT prophylaxis; SCDs, Lovenox Closely monitor the patient and adjust management as needed Possible discharge home tomorrow if stable Plan of care reviewed with the patient and family and the I also discussed with executive talent acquisition consultant Dr. Hernandez History Interval history: Patient seen and examined medical records reviewed Patient was admitted for chest pain and non-ST elevation [place] Underwent heart cath, status post PCI Patient feels slightly better no new complaints Blood pressure sounds uncontrolled Alert awake oriented 3 Vital signs review Hospitalist Physical - Constitutional Vitals: Temp Pulse Resp BP Pulse Ox 98.5 F 86 17 150/80 99 06/20/18 11:15 06/20/18 13:37 06/20/18 13:00 06/20/18 13:37 06/20/18 13:00 General appearance: Present: no acute distress, well-nourished - EENT Eyes: Present: PERRL, EOM intact - Neck Neck: Present: supple, normal ROM - Respiratory Respiratory effort: normal Respiratory: bilateral: diminished, negative: rales, rhonchi, wheezing - Cardiovascular Rhythm: regular Heart Sounds: Present: S1 & S2 - Extremities Extremities: no ischemia, No edema - Abdominal General gastrointestinal: soft, non-tender, non-distended, normal bowel sounds - Integumentary Integumentary: Present: clear, warm - Psychiatric Psychiatric: appropriate mood/affect, cooperative - Neurologic Neurologic: CNII-XII intact, moves all extremities Results - Labs CBC & Chem 7: 06/21/18 05:50 06/21/18 05:50 Labs: Laboratory Last Values WBC 7.3 K/mm3 (4.5-11.0) 06/19/18 15:40 RBC 4.97 M/mm3 (3.65-5.03) 06/19/18 15:40 Hgb 10.1 gm/dl (10.1-14.3) 06/19/18 15:40 Hct 32.7 % (30.3-42.9) 06/19/18 15:40 MCV 66 fl (79-97) L 06/19/18 15:40 MCH 20 pg (28-32) L 06/19/18 15:40 MCHC 31 % (30-34) 06/19/18 15:40 RDW 20.8 % (13.2-15.2) H 06/19/18 15:40 Plt Count 325 K/mm3 (140-440) 06/19/18 15:40 Lymph % (Auto) 22.4 % (13.4-35.0) 06/19/18 15:40 [place] % (Auto) 7.7 % (0.0-7.3) H 06/19/18 15:40 Eos % (Auto) 4.6 % (0.0-4.3) H 06/19/18 15:40 Baso % (Auto) 0.9 % (0.0-1.8) 06/19/18 15:40 Lymph # 1.6 K/mm3 (1.2-5.4) 06/19/18 15:40 [place] # 0.6 K/mm3 (0.0-0.8) 06/19/18 15:40 Eos # 0.3 K/mm3 (0.0-0.4) 06/19/18 15:40 Baso # 0.1 K/mm3 (0.0-0.1) 06/19/18 15:40 Seg Neutrophils % 64.4 % (40.0-70.0) 06/19/18 15:40 Seg Neutrophils # 4.7 K/mm3 (1.8-7.7) 06/19/18 15:40 PT 12.6 Sec. (12.2-14.9) 06/19/18 15:40 INR 0.90 (0.87-1.13) 06/19/18 15:40 APTT 65.0 Sec. (24.2-36.6) H* 06/19/18 17:40 Activated Clotting Time 340 (74-137) H 06/20/18 10:39 D-Dimer 621.4 ng/mlDDU (0-234) H 06/19/18 15:40 Heparin Anti-Xa Level 0.10 U.I./ml (0.3-0.7) L 06/20/18 12:24 Sodium 141 mmol/L (137-145) 06/19/18 16:13 Potassium 3.8 mmol/L (3.6-5.0) 06/19/18 16:13 Chloride 106.0 mmol/L (98-107) 06/19/18 16:13 Carbon Dioxide 24 mmol/L (22-30) 06/19/18 16:13 Anion Gap 15 mmol/L 06/19/18 16:13 BUN 12 mg/dL (7-17) 06/19/18 16:13 Creatinine 0.7 mg/dL (0.7-1.2) 06/19/18 16:13 Estimated GFR > 60 ml/min 06/19/18 16:13 BUN/Creatinine Ratio 17 % 06/19/18 16:13 Glucose 94 mg/dL (65-100) 06/19/18 16:13 Hemoglobin A1c 6.4 % (4-6) H 06/19/18 23:00 Calcium 8.6 mg/dL (8.4-10.2) 06/19/18 16:13 Total Bilirubin < 0.20 mg/dL (0.1-1.2) 06/19/18 16:13 AST 23 units/L (5-40) 06/19/18 16:13 ALT 11 units/L (7-56) 06/19/18 16:13 Alkaline Phosphatase 159 units/L (35-129) H 06/19/18 16:13 Total Creatine Kinase 1017 units/L (30-135) H 06/20/18 12:24 CK-MB (CK-2) 138.0 ng/mL (0.0-4.0) H 06/20/18 12:24 CK-MB (CK-2) Rel Index 13.5 (0-4) H 06/20/18 12:24 Troponin T 4.130 ng/mL (0.00-0.029) H* D 06/20/18 12:24 Total Protein 7.1 g/dL (6.3-8.2) 06/19/18 16:13 Albumin 3.4 g/dL (3.9-5) L 06/19/18 16:13 Albumin/Globulin Ratio 0.9 % 06/19/18 16:13 Triglycerides 87 mg/dL (2-149) 06/19/18 16:13 Cholesterol 128 mg/dL (50-199) 06/19/18 16:13 LDL Cholesterol Direct 92 mg/dL (50-130) 06/19/18 16:13 HDL Cholesterol 28 mg/dL (40-59) L 06/19/18 16:13 Cholesterol/HDL Ratio 4.57 % 06/19/18 16:13 TSH 1.050 mlU/mL (0.270-4.200) 06/19/18 20:50
[2018-06-20] MEDS: COZAAR PO SCH (14:49)
--- NOTE | 2018-06-20 15:32 | Cardiac Catherization Report ---
LEFT HEART CATHETERIZATION/PERCUTANEOUS CORONARY INTERVENTION CLINICAL INFORMATION: This is a 58-year-old -L[place] female with known history of coronary artery disease with ramus stent and right coronary artery stent. Catheterization in 2014 showed patency with mild 20% ramus stent, noncompliant with medication, is a smoker, presents with shortness of breath with a non-ST elevation VA. DESCRIPTION OF PROCEDURE: The patient was brought to the labor union business representative. Moderate sedation was given, 1.5 mg of Versed and 75 mcg of fentanyl was given. Total sedation time was 31 minutes, started at 10:02 a.m., finished at 10:33 a.m. Procedure was performed by the right radial artery, sterile technique, local anesthesia, 6-Mexican radial sheath inserted. PROCEDURAL FINDINGS: Left system engaged with JL3.5 catheter. Left main is large and patent. LAD is a large caliber vessel, patent with mild luminal irregularities wraparound LAD. Diagonal 1 and diagonal 2 patent. Circumflex and AV groove is a medium caliber vessel, patent with mild luminal irregularities. OM1 is a small to medium caliber vessel, mid 50% lesion. Ramus 100% proximally. RCA engaged with JR4 anterior takeoff, large caliber vessel has moderate to severe tortuosity. Mid stent patent. PDA and PLV are medium caliber vessel, it is patent. LV gram done in CHINESE and LYNNE shows borderline normal LV function, EF 50%, LVEDP of 45-50 mmHg. LV is 163. Aortic is 165/96. In view of elevated left end-diastolic pressure, we gave IV Lasix. The patient was satting normal and was not short of breath. I then proceeded with PCI of the ramus/intravascular ultrasound of the ramus. Engaged the left system with an EBU 3.5 guiding catheter. Used a short run-through coronary wire with difficulty crossing the occlusion, it was totaled. Stent ballooned with a 2.0 x 15 balloon x 2 inflations restored MORA 3 flow from MORA 0. Ballooned further. It became a medium caliber ramus with mild thrombus within the stent. Intravascular ultrasound showed we were within the lumen and distal reference vessel 3.0 x 2.5 and proximal same 3.0 x 2.5. Stented with a drug-eluting Resolute 2.5 x 30 mm overlapping with the previously placed stent and inflated at 15 atmospheres. Excellent angiographic result. Repeat IVUS showed good stent apposition and expansion noted. Coronary wire was removed. Multiple angiograms continued MORA 3 flow, no dissection, no perforation, good stent apposition and MORA 3 flow. A 6-Mexican guiding catheter taken over guidewire, 6-Mexican radial sheath was discontinued. Radial band applied. No hematoma, no bleeding. SUMMARY: 1. Successful PCI with intravascular ultrasound of the ramus, which was 100% culprit vessel with a drug-eluting Resolute Lux 2.5 x 30 mm. 2. Left main patent, LAD patent. RCA moderate to severe tortuosity with mid stent patent, circumflex patent, OM1 50% with ramus 100% with successful PCI. 3. acute diastolic dysfunction and stressed the importance of compliance with medications and smoking cessation. JOB# [id number] WHITNEY/MARCK HARMON
[2018-06-20] MEDS: BABY ASPIRIN PO SCH (19:57)
[2018-06-20] MEDS: LOPRESSOR PO SCH ×2 (19:57→21:31)
[2018-06-20] MEDS: PEPCID IV SCH ×2 (19:58→21:31)
[2018-06-20] MEDS ORDERED: LOVENOX SUB-Q SCH (22:00)
[2018-06-21 01:07] LABS: Bilirubin,Urine NEG (Negative); Blood,Urine NEG (Negative); Color,Urine Yellow (Yellow); Protein,Urine <15 mg/dL mg/dL (Negative); Urobilinogen,Urine < 2.0 mg/dL (<2.0); WBC,Urine < 1.0 /HPF (0.0-6.0)
[2018-06-21 06:04] LABS: Basophils # (Auto) 0.1 K/mm3 (0.0-0.1); Basophils % (Auto) 0.7 % (0.0-1.8); Eosinophils # (Auto) 0.2 K/mm3 (0.0-0.4); Eosinophils % (Auto) 2.9 % (0.0-4.3); Hematocrit 30.5 % (30.3-42.9); Hemoglobin 9.5 gm/dl (10.1-14.3); Lymphocytes # (Auto) 1.4 K/mm3 (1.2-5.4); Lymphocytes % (Auto) 18.6 % (13.4-35.0); Mean Corpuscular HGB Conc 31 % (30-34); Monocytes # (Auto) 0.7 K/mm3 (0.0-0.8); Monocytes % (Auto) 9.6 % (0.0-7.3); Platelet Count 310 K/mm3 (140-440); Red Blood Count 4.72 M/mm3 (3.65-5.03)
[2018-06-21 06:08] LABS: Mean Corpuscular Volume 65 fl (79-97)
[2018-06-21 06:19] LABS: Creatine Kinase MB 29.3 ng/mL (0.0-4.0)
[2018-06-21 06:20] LABS: BUN/Creatinine Ratio 15; Blood Urea Nitrogen 15 mg/dL (7-17); Calcium 8.7 mg/dL (8.4-10.2); Hemolysis Index 9
[2018-06-21 08:05] VITALS: BP 123/69
[2018-06-21] MEDS ORDERED: MILK OF MAGNESIA PO ONE (08:32)
[2018-06-21] MEDS ORDERED: CHLORASEPTIC MM PRN (08:33)
[2018-06-21] MEDS ORDERED: CATAPRES PO SCH (08:48)
[2018-06-21] MEDS: COZAAR PO SCH (09:53)
[2018-06-21] MEDS: BABY ASPIRIN PO SCH (09:53)
[2018-06-21] MEDS: LOPRESSOR PO SCH (09:54)
[2018-06-21] MEDS: PEPCID IV SCH (09:55)
[2018-06-21] MEDS ORDERED: IMDUR PO SCH (10:00)
[2018-06-21] MEDS ORDERED: PLAVIX PO SCH (10:00)
[2018-06-21] MEDS: MORPHINE IV PRN (10:02)
--- NOTE | 2018-06-21 10:05 | Discharge Summary ---
Providers - Providers Date of Admission: 06/19/18 19:32 Date of discharge: 06/21/18 Attending physician: SIDDHARTHA MERCER 06/19/18 Consult to Cardiac Rehabilitation [CONS] Routine Reason For Exam: Phase 1 06/19/18 20:08 Consult to Cardiology [CONS] Routine Consulting Provider: MAGGI ROBERTS Reason For Exam: NSTEMI 06/20/18 Consult to Cardiac Rehabilitation [CONS] Routine Reason For Exam: post pci Primary care physician: VIPUL JACOBS Hospitalization Reason for admission: chest pain and positive cardiac enzymes Condition: Good Pertinent studies: CTA chest no PE mild cardiomegaly Chest x-ray; limited study mild cardiomegaly Echo; EF 45-50% Procedures: Left heart cath ;revealed left main patent LAD patent circumflex pain OM1 50% ramus 100% RCA stent patent PCI of the ramus with a drug-eluting 2.5 x 30 mm stent patient. EF 50% with elevated left end-diastolic pressure. Hospital course: Very pleasant morbidly obese 58-year-old -[place] female patient with significant past medical history of coronary artery disease status post PCI type 2 diabetes mellitus hypertension dyslipidemia ongoing tobacco use noncompliance with medications was admitted through emergency room with chest pain and positive cardiac enzymes patient was admitted symptomatically managed, evaluated by cardiology, underwent stress test, status post PCI to ramus/DIANELYS Medications were optimized.Patient counseled smoking cessation, advised weight reduction, strongly advised to comply with medications and diet to follow up visits,Verbalized understanding Today she is comfortable no new complaints Physical examination unremarkable, Cardiology cleared Patient is hemodynamically and clinically stable at discharge Discharge diagnosis; --Non-ST elevation MO; status post PCI/DIANELYS to ramus --Hypertensive urgency; POA, moderate control --History of coronary artery disease status post PCI/stent; advised compliance --Type 2 diabetes mellitus; continue current management --Morbid obesity;BMI 49.1;adv diet modification,exercise and weight reduction,when medically stable --Ongoing tobacco use; smoking cessation, nicotine patch as needed --Dyslipidemia; statin Disposition: TO HOME OR SELFCARE Time spent for discharge: 32 min Core Measure Documentation - Palliative Care Palliative Care/ Comfort Measures: Not Applicable - Core Measures Any of the following diagnoses?: heart failure - Heart Failure Discharge Requirements LETTY/ARB for LVSD if EF <40%: Yes Beta vamsi at discharge: Yes Exam - Constitutional Vitals: Temp Pulse Resp BP Pulse Ox 99.1 F 84 20 123/69 96 06/21/18 08:04 06/21/18 08:00 06/21/18 08:00 06/21/18 08:00 06/21/18 08:00 General appearance: Present: no acute distress, well-nourished, obese - EENT Eyes: Present: PERRL, EOM intact - Neck Neck: Present: supple, normal ROM - Respiratory Respiratory effort: normal Respiratory: bilateral: diminished, negative: rales, rhonchi, wheezing - Cardiovascular Rhythm: regular Heart Sounds: Present: S1 & S2 - Extremities Extremities: no ischemia, No edema - Abdominal General gastrointestinal: Present: soft, non-tender, non-distended, normal bowel sounds - Integumentary Integumentary: Present: clear, warm - Musculoskeletal Musculoskeletal: strength equal bilaterally - Psychiatric Psychiatric: appropriate mood/affect, cooperative - Neurologic Neurologic: CNII-XII intact, moves all extremities Plan Activity: advance as tolerated, fall precautions Diet: other (cardiac diet) Special Instructions: smoking cessation Additional Instructions: If you have chest pain or shortness of breath. Contact M.D. or go to emergency room Follow up with: HINA LEVINE DO [Staff Physician] - 3-5 Days MAGGI ROBERTS MD [Staff Physician] - 7 Days Forms: [facility] PCI D/C Instructions, Work/School Release Form Prescriptions: Aspirin [Aspirin BABY CHEW TAB] 81 mg PO QDAY #30 tab.chew AtorvaSTATin [Lipitor] 40 mg PO QHS #30 tablet cloNIDine [Catapres] 0.1 mg PO BID #60 tablet Clopidogrel [Plavix] 75 mg PO QDAY #30 tablet Furosemide [Lasix] 20 mg PO DAILY #30 tablet ISOSORBIDE MONOnitrate [Imdur ER] 30 mg PO DAILY #30 tab.er.24h Losartan [Cozaar] 100 mg PO QDAY #30 tablet Metoprolol [Lopressor TAB] 50 mg PO BID #60 tablet Nicotine [Habitrol] 21 mg TD DAILY #30 patch
--- NOTE | 2018-06-21 11:06 | Progress Note ---
Assessment and Plan Patient is chest pain-free blood pressures controlled labs are stable urged compliance with medications and smoking sensation patient will follow-up office next week continue dual antiplatelet therapy - Patient Problems (1) Hypertensive urgency Current Visit: Yes Status: Acute (2) NSTEMI (non-ST elevated myocardial infarction) Current Visit: Yes Status: Acute (3) Acute exacerbation of CHF (congestive heart failure) Current Visit: No Status: Acute (4) Respiratory failure Current Visit: No Status: Acute Qualifiers: Chronicity: acute Respiratory failure complication: hypoxia Qualified Code(s): J96.01 - Acute respiratory failure with hypoxia (5) Acute on chronic diastolic heart failure Current Visit: No Status: Chronic (6) Hyperlipidemia Current Visit: No Status: Chronic Qualifiers: Hyperlipidemia type: mixed hyperlipidemia Qualified Code(s): E78.2 - Mixed hyperlipidemia Subjective Date of service: 06/21/18 Principal diagnosis: nstemi Interval history: feeling much better Objective Vital Signs Temp Pulse Pulse Resp Resp BP BP 06/21/18 08:04 99.1 F 06/21/18 08:00 84 20 123/69 06/21/18 04:27 89 18 152/87 06/20/18 23:44 98.3 F 77 18 158/85 06/20/18 22:30 90 18 06/20/18 22:00 18 18 06/20/18 21:32 90 112/49 06/20/18 21:31 90 112/49 06/20/18 21:30 18 06/20/18 20:04 82 06/20/18 19:44 98.1 F 90 18 112/49 06/20/18 17:30 157/84 06/20/18 17:14 79 06/20/18 17:00 98.3 F 79 18 146/73 06/20/18 16:20 98.6 F 79 18 157/84 06/20/18 15:13 18 06/20/18 14:49 150/86 06/20/18 13:37 86 150/80 06/20/18 13:00 88 17 153/83 06/20/18 12:30 86 14 175/109 06/20/18 12:00 96 H 15 135/83 06/20/18 11:45 75 20 148/81 06/20/18 11:30 76 17 151/82 06/20/18 11:15 98.5 F 75 17 170/91 Pulse Ox 06/21/18 08:04 06/21/18 08:00 96 06/21/18 04:27 95 06/20/18 23:44 100 06/20/18 22:30 100 06/20/18 22:00 06/20/18 21:32 06/20/18 21:31 06/20/18 21:30 06/20/18 20:04 06/20/18 19:44 100 06/20/18 17:30 06/20/18 17:14 96 06/20/18 17:00 06/20/18 16:20 06/20/18 15:13 06/20/18 14:49 06/20/18 13:37 06/20/18 13:00 99 06/20/18 12:30 99 06/20/18 12:00 99 06/20/18 11:45 95 06/20/18 11:30 97 06/20/18 11:15 94 - Physical Examination General: Appears Well HEENT: Positive: PERRL, Mucus Membranes Moist Neck: Positive: neck supple, trachea midline Cardiac: Positive: Reg Rate and Rhythm Lungs: Positive: clear to auscultation Neuro: Positive: Grossly Intact Abdomen: Positive: Soft, Active Bowel Sounds. Negative: Tender, Distended Skin: Positive: Clear Incision: Cardiac Cath Site (no hemtoma and soft) Musculoskeletal: No Pain, Normal Range of Motion Extremities: Present: normal. Absent: edema - Labs and Meds Cardiac Enzymes 06/20/18 06/21/18 Range/Units 12:24 05:50 CK-MB (CK-2) 138.0 H 29.3 H (0.0-4.0) ng/mL CBC 06/21/18 Range/Units 05:50 WBC 7.7 (4.5-11.0) K/mm3 RBC 4.72 (3.65-5.03) M/mm3 Hgb 9.5 L (10.1-14.3) gm/dl Hct 30.5 (30.3-42.9) % Plt Count 310 (140-440) K/mm3 Lymph # 1.4 (1.2-5.4) K/mm3 Rich # 0.7 (0.0-0.8) K/mm3 Eos # 0.2 (0.0-0.4) K/mm3 Baso # 0.1 (0.0-0.1) K/mm3 Comprehensive Metabolic Panel 06/21/18 Range/Units 05:50 Sodium 137 (137-145) mmol/L Potassium 4.0 (3.6-5.0) mmol/L Chloride 100.8 (98-107) mmol/L Carbon Dioxide 25 (22-30) mmol/L BUN 15 (7-17) mg/dL Creatinine 1.0 (0.7-1.2) mg/dL Glucose 128 H (65-100) mg/dL Calcium 8.7 (8.4-10.2) mg/dL - Imaging and Cardiology Echo: report reviewed (03/2017 normal LV function impaired relaxation pattern no significant regurgitations), other (06/20/2018 ef 45-50% moderate lvh diastolic dsyfunction ) Cardiac cath: report reviewed (03/2017 left main. LAD patent mild luminal irregularities ramus stent patent proximal 20% circumflex patent RCA mid stents patent normal LV function) - Telemetry EKG Rhythm: Sinus Rhythm
== END 2018-06-21 11:22 | disposition home or self-care (01) | DRG 246 ==
LOC: ED 15:01 → 4A 19:32
PROVIDERS: ADMIT Internal Medicine; ATTEND Internal Medicine
PROC: 027034Z Dilation of Coronary Artery, One Artery with Drug-eluting Intraluminal Device, Percutaneous Approach (ICD-10-PCS; principal; 2018-06-20)
PROC: 4A023N7 Measurement of Cardiac Sampling and Pressure, Left Heart, Percutaneous Approach (ICD-10-PCS; 2018-06-20)
PROC: B2111ZZ Fluoroscopy of Multiple Coronary Arteries using Low Osmolar Contrast (ICD-10-PCS; 2018-06-20)
PROC: B2151ZZ Fluoroscopy of Left Heart using Low Osmolar Contrast (ICD-10-PCS; 2018-06-20)
DX: I21.4 Non-ST elevation (NSTEMI) myocardial infarction (principal); J96.01 Acute respiratory failure with hypoxia; I50.33 Acute on chronic diastolic (congestive) heart failure; Z68.42 Body mass index [BMI] 45.0-49.9, adult; I16.0 Hypertensive urgency; E66.01 Morbid (severe) obesity due to excess calories; I25.10 Atherosclerotic heart disease of native coronary artery without angina pectoris; E11.9 Type 2 diabetes mellitus without complications; F17.200 Nicotine dependence, unspecified, uncomplicated; I11.0 Hypertensive heart disease with heart failure; M19.90 Unspecified osteoarthritis, unspecified site; J44.9 Chronic obstructive pulmonary disease, unspecified; E78.2 Mixed hyperlipidemia; Z88.0 Allergy status to penicillin; Z91.14 Patient's other noncompliance with medication regimen; Z71.6 Tobacco abuse counseling; Z71.3 Dietary counseling and surveillance; Z79.899 Other long term (current) drug therapy; Z95.5 Presence of coronary angioplasty implant and graft; Z86.718 Personal history of other venous thrombosis and embolism; Z90.49 Acquired absence of other specified parts of digestive tract; Z90.710 Acquired absence of both cervix and uterus
CPT/HCPCS: 36415; 71045; 71275; 80048; 80053; 80061; 81001; 82550; 82553; 82962; 83036; 84443; 84484; 85014; 85018; 85025; 85347; 85379; 85520; 85610; 85730; 92928; 92978; 93005; 93010; 93306; 93458; 96374; 96375; 96376; G0378; A9270-GY; C1725; C1753; C1769; C1874; C1887; C1894; C9600; J0360; J0583; J1644; J1650; J1940; J2250; J2270; J2405; J3010; J7040; Q9967

== ENCOUNTER 2019-04-12 11:52 | Inpatient (IN) | payer BC ==
[2019-04-12] MEDS ORDERED: IPRATROPIUM/ALBUTEROL SULFATE 3 ML AMPUL.NEB IH ONE (12:10)
--- NOTE | 2019-04-12 12:13 | Emergency Department Report ---
Chief Complaint: Dyspnea/Respdistress Stated Complaint: SANDOVAL/SOB Time Seen by Provider: 04/12/19 12:07 - Exam Vital Signs: Vital Signs 04/12/19 04/12/19 11:56 12:05 Temperature 98.1 F 98.1 F Pulse Rate 105 H 112 H Respiratory 18 24 Rate Blood Pressure 205/91 205/91 O2 Sat by Pulse 98 91 Oximetry MSE screening note: Focused history and physical exam performed. Pt c/o sob, chest pain, pedal edema. On home 02, nc 5L. Lungs +wheezing pedal edema Due to findings the following was ordered: EKG CXR CBC,CMP,TROP,BNP, DUOBEB ED Disposition for MSE Condition: Stable
[2019-04-12 13:07] LABS: Basophils % (Auto) 0.8 % (0.0-1.8); Eosinophils # (Auto) 0.6 K/mm3 (0.0-0.4); Eosinophils % (Auto) 9.3 % (0.0-4.3); Lymphocytes # (Auto) 1.2 K/mm3 (1.2-5.4); Lymphocytes % (Auto) 18.9 % (13.4-35.0); Mean Corpuscular HGB Conc 30 % (30-34); Monocytes # (Auto) 0.5 K/mm3 (0.0-0.8); Monocytes % (Auto) 7.2 % (0.0-7.3); Platelet Count 329 K/mm3 (140-440); Red Blood Count 4.82 M/mm3 (3.65-5.03)
--- NOTE | 2019-04-12 13:10 | XRay Report ---
CHEST 2 VIEWS INDICATION / CLINICAL INFORMATION: SOB, CHEST PAIN ,COUGH. COMPARISON: Chest radiograph 06/19/2018 FINDINGS: SUPPORT DEVICES: None. HEART / MEDIASTINUM: Stable mild cardiomegaly. LUNGS / PLEURA: Minimal subsegmental atelectasis in the left midlung. The lungs are otherwise clear. No pleural effusion. No pneumothorax. ADDITIONAL FINDINGS: No significant additional findings. IMPRESSION: 1. Stable cardiomegaly. No acute cardiopulmonary abnormality identified. Signer Name: Rylie Martinez MD Signed: 04/12/2019 1:06 PM Workstation Name: [id number]
[2019-04-12 13:12] LABS: Hematocrit 30.8 % (30.3-42.9); Hemoglobin 9.2 gm/dl (10.1-14.3); Mean Corpuscular Volume 64 fl (79-97); Red Cell Distribution Width 22.1 % (13.2-15.2)
[2019-04-12 13:19] LABS: Alanine Aminotransferase 8 units/L (7-56); Albumin 3.8 g/dL (3.9-5); BUN/Creatinine Ratio 32; Blood Urea Nitrogen 19 mg/dL (7-17); Calcium 8.9 mg/dL (8.4-10.2); Hemolysis Index 0
[2019-04-12] MEDS ORDERED: ALBUTEROL 2.5 MG/3 ML NEBU IH ONE (13:37)
[2019-04-12] MEDS ORDERED: IPRATROPIUM 0.02% NEBU 2.5 ML IH ONE (13:38)
[2019-04-12] MEDS ORDERED: methylPREDNISolone Sod Succinate 125 MG/2 ML INJ IV ONE (13:38)
[2019-04-12] MEDS ORDERED: AZITHROMYCIN 500 MG in SODIUM CHLORIDE 0.9% 250ML 250 ML IV ONE (13:38)
[2019-04-12] MEDS ORDERED: BENZONATATE 100 MG CAP PO ONE (13:38)
[2019-04-12] MEDS ORDERED: cloNIDine 0.1 MG TAB PO ONE (13:39)
[2019-04-12] MEDS ORDERED: FUROSEMIDE 40 MG/4 ML INJ IV ONE ×2 (13:40→22:57)
[2019-04-12] MEDS ORDERED: MAGNESIUM SULFATE 2 GM/50 ML BAG IV ONE (13:40)
[2019-04-12] MEDS ORDERED: HYDROcodone/ACETAMINOPHEN 5-325 MG TAB PO ONE (14:38)
--- NOTE | 2019-04-12 14:56 | Emergency Department Report ---
ED Shortness of Breath HPI - General Chief Complaint: Dyspnea/Respdistress Stated Complaint: SANDOVAL/SOB Time Seen by Provider: 04/12/19 12:07 Source: patient Mode of arrival: Ambulatory Limitations: No Limitations - History of Present Illness Initial Comments: 59-year-old female with a past medical history of CHF, COPD on home oxygen 5L, previous DVT, diabetes, CAD with multiple stents presents to the hospital complaining of shortness of breath 3 days. Patient also having a cough productive of yellow sputum and occasionally blood-tinged. She complains of sternal chest pain that is worse with deep inspiration and palpation. She has bilateral leg edema. Patient denies fever. She presents with audible wheezing and tachypnea. Patient has been noncompliant with her coumadin, Lasix, and albuterol for about 2 weeks. She did try her albuterol yesterday but discontinued use because it was not helping. - Related Data Previous Rx's Medication Instructions Recorded Last Taken Type Aspirin [Aspirin BABY CHEW TAB] 81 mg PO QDAY #30 tab.chew 06/21/18 Unknown Rx AtorvaSTATin [Lipitor] 40 mg PO QHS #30 tablet 06/21/18 Unknown Rx Clopidogrel [Plavix] 75 mg PO QDAY #30 tablet 06/21/18 Unknown Rx Furosemide [Lasix] 20 mg PO DAILY #30 tablet 06/21/18 Unknown Rx ISOSORBIDE MONOnitrate [Imdur ER] 30 mg PO DAILY #30 tab.er.24h 06/21/18 Unknown Rx Losartan [Cozaar] 100 mg PO QDAY #30 tablet 06/21/18 Unknown Rx Metoprolol [Lopressor TAB] 50 mg PO BID #60 tablet 06/21/18 Unknown Rx Nicotine [Habitrol] 21 mg TD DAILY #30 patch 06/21/18 Unknown Rx cloNIDine [Catapres] 0.1 mg PO BID #60 tablet 06/21/18 Unknown Rx Allergies Allergy/AdvReac Type Severity Reaction Status Date / Time Penicillins Allergy Severe GO INTO Verified 06/19/18 15:03 SHOCK ED Review of Systems ROS: Stated complaint: SANDOVAL/SOB Other details as noted in HPI Comment: All other systems reviewed and negative ED Past Medical Hx - Past Medical History Previous Medical History?: Yes Hx Hypertension: Yes Hx Heart Attack/AMI: No Hx Congestive Heart Failure: Yes Hx Diabetes: Yes Hx Deep Vein Thrombosis: Yes (left leg) Hx Arthritis: Yes Hx COPD: Yes (home O2) Additional medical history: CAD - Surgical History Past Surgical History?: Yes Hx Coronary Stent: Yes (2004, 2007, 09/2015) Hx Cholecystectomy: Yes Hx Appendectomy: Yes Additional Surgical History: HYSTERECTOMY. TONSILLECTOMY - Social History Smoking Status: Current Every Day Smoker Substance Use Type: None - Medications Home Medications: Home Medications Medication Instructions Recorded Confirmed Last Taken Type Aspirin [Aspirin BABY CHEW TAB] 81 mg PO QDAY #30 tab.chew 06/21/18 Unknown Rx AtorvaSTATin [Lipitor] 40 mg PO QHS #30 tablet 06/21/18 Unknown Rx Clopidogrel [Plavix] 75 mg PO QDAY #30 tablet 06/21/18 Unknown Rx Furosemide [Lasix] 20 mg PO DAILY #30 tablet 06/21/18 Unknown Rx ISOSORBIDE MONOnitrate [Imdur ER] 30 mg PO DAILY #30 tab.er.24h 06/21/18 Unknown Rx Losartan [Cozaar] 100 mg PO QDAY #30 tablet 06/21/18 Unknown Rx Metoprolol [Lopressor TAB] 50 mg PO BID #60 tablet 06/21/18 Unknown Rx Nicotine [Habitrol] 21 mg TD DAILY #30 patch 06/21/18 Unknown Rx cloNIDine [Catapres] 0.1 mg PO BID #60 tablet 06/21/18 Unknown Rx ED Physical Exam - General Limitations: No Limitations - Other Other exam information: General: Mild respiratory distress Head: Atraumatic Eyes: normal appearance ENT: Moist mucous membranes Neck: Normal appearance, no midline tenderness Chest: Clear to auscultation bilaterally bilateral wheezing, tachypnea, accessory muscle use. Reproducible sternal chest wall tenderness palpation CV: Regular rate and rhythm Abdomen: Soft, normal bowel sounds, nontender, nondistended, no rebound or guarding Back: Normal inspection Extremity: One plus pitting lower extremity edema 2, full range of motion Neuro: Alert O x 3, no facial asymmetry, speech clear, no gross motor sensory deficit Psych: Appropriate behavior Skin: No rash ED Course Vital Signs 04/12/19 04/12/19 04/12/19 11:56 12:05 13:16 Temperature 98.1 F 98.1 F 98 F Pulse Rate 105 H 112 H 91 H Respiratory 18 24 24 Rate Blood Pressure 205/91 205/91 Blood Pressure 222/112 [Left] O2 Sat by Pulse 98 91 100 Oximetry ED Medical Decision Making - Lab Data Result diagrams: 04/12/19 12:34 04/12/19 12:34 Lab Results 04/12/19 04/12/19 04/12/19 Range/Units 12:34 12:34 12:34 WBC 6.4 (4.5-11.0) K/mm3 RBC 4.82 (3.65-5.03) M/mm3 Hgb 9.2 L (10.1-14.3) gm/dl Hct 30.8 (30.3-42.9) % MCV 64 L (79-97) fl MCH 19 L (28-32) pg MCHC 30 (30-34) % RDW 22.1 H (13.2-15.2) % Plt Count 329 (140-440) K/mm3 Lymph % (Auto) 18.9 (13.4-35.0) % [place] % (Auto) 7.2 (0.0-7.3) % Eos % (Auto) 9.3 H (0.0-4.3) % Baso % (Auto) 0.8 (0.0-1.8) % Lymph # 1.2 (1.2-5.4) K/mm3 [place] # 0.5 (0.0-0.8) K/mm3 Eos # 0.6 H (0.0-0.4) K/mm3 Baso # 0.0 (0.0-0.1) K/mm3 Seg Neutrophils % 63.8 (40.0-70.0) % Seg Neutrophils # 4.1 (1.8-7.7) K/mm3 Sodium 141 (137-145) mmol/L Potassium 4.2 (3.6-5.0) mmol/L Chloride 106.2 (98-107) mmol/L Carbon Dioxide 20 L (22-30) mmol/L Anion Gap 19 mmol/L BUN 19 H (7-17) mg/dL Creatinine 0.6 L (0.7-1.2) mg/dL Estimated GFR > 60 ml/min BUN/Creatinine Ratio 32 % Glucose 103 H (65-100) mg/dL Calcium 8.9 (8.4-10.2) mg/dL Total Bilirubin 0.20 (0.1-1.2) mg/dL AST 10 (5-40) units/L ALT 8 (7-56) units/L Alkaline Phosphatase 155 H (35-129) units/L Troponin T < 0.010 (0.00-0.029) ng/mL NT-Pro-B Natriuret Pep 989.6 H (0-900) pg/mL Total Protein 7.7 (6.3-8.2) g/dL Albumin 3.8 L (3.9-5) g/dL Albumin/Globulin Ratio 1.0 % - EKG Data -: EKG Interpreted by Me EKG shows normal: sinus rhythm, ST-T waves (no stemi) Rate: normal (83) - EKG Data When compared to previous EKG there are: no significant change - Radiology Data Radiology results: report reviewed CHEST 2 VIEWS INDICATION / CLINICAL INFORMATION: SOB, CHEST PAIN ,COUGH. COMPARISON: Chest radiograph 06/19/2018 FINDINGS: SUPPORT DEVICES: None. HEART / MEDIASTINUM: Stable mild cardiomegaly. LUNGS / PLEURA: Minimal subsegmental atelectasis in the left midlung. The lungs are otherwise clear. No pleural effusion. No pneumothorax. ADDITIONAL FINDINGS: No significant additional findings. IMPRESSION: 1. Stable cardiomegaly. No acute cardiopulmonary abnormality identified. - Medical Decision Making Presents with COPD exacerbation. Patient treated in the ED with Solu-Medrol, albuterol, Atrovent, Bell, Toradol, and Tessalon Perles. Patient also has a significantly elevated blood pressure despite taking her BP medication prior to arrival. Clonidine 0.1 mg provided. She has been noncompliant with Lasix, Coumadin, and albuterol inhaler. Azithromycin provided empirically due to respiratory symptoms. No infiltrate on chest x-ray. No signs of pulmonary edema. Lasix provided lower extremity edema the possibility of right heart failure. Sternal chest pain reproducible on exam. Unchanged EKG. Negative troponin. Aspirin provided. Patient will be admitted by the hospitalist service - Differential Diagnosis CHF, pneumonia, bronchitis, COPD, PE, [place] Critical Care Time: No Critical care attestation.: If time is entered above; I have spent that time in minutes in the direct care of this critically ill patient, excluding procedure time. ED Disposition Clinical Impression: COPD exacerbation, Leg edema, Noncompliance with medication regimen, Uncontrolled hypertension, Obstructive sleep apnea, Tobacco abuse, Chest pain, O2 dependent Disposition: DC-09 OP ADMIT IP TO THIS HOSP Is pt being admited?: Yes Condition: Stable Time of Disposition: 15:01 (Dr. Haile/hospitalist)
[2019-04-12] MEDS ORDERED: ASPIRIN 325 MG TAB PO ONE (15:01)
--- NOTE | 2019-04-12 15:02 | History and Physical Report ---
History of Present Illness Chief complaint: I feel bloated, and i cant breathe History of present illness: 59 YO Female with HTN, Diastolic CHF(EF 45%), COPD, OA, Chronic Respiratory Failure on Home Oxygen via NC, DM, CAD S/P Stent Placement on DAPT, Nicotine Dependence, Medication Noncompliance presents to ED for evaluation. Pt states that she has experienced shortness of breath, productive cough with yellow sputum as well as chest discomfort with deep breathing. Pt acknowledges Orthopnea/PND, Dypsnea on Exertion, Dypsnea at rest, leg edema. Pt acknowledges dietary and medication noncompliance. Pt transported to [facility] via private vehicle. Pt seen and evaluated in ED and found to have Acute Hypoxemic Respiratory failure, and placed on supplemental oxygen, and nebulizer therapy without improvement. Pt also found to have CHF Decompensation, Hypertensive Urgency. Pt admitted to Medical floor with remote telemetry. Cardiology consulted in ED. Pt denies fever, chills, palpitations, hemoptysis, BRBPR, skin rash, recent ill contacts. Prior admission on 06/19/18 reviewed. All medication listed at time of admission has been reconciled. Past History Past Medical History: other (see HPI) Past Surgical History: appendectomy, cholecystectomy, hysterectomy, tonsillectomy Social history: single, smoking Family history: diabetes, hypertension Medications and Allergies Allergies Allergy/AdvReac Type Severity Reaction Status Date / Time Penicillins Allergy Severe GO INTO Verified 06/19/18 15:03 SHOCK Home Medications Medication Instructions Recorded Confirmed Last Taken Type Aspirin [Aspirin BABY CHEW TAB] 81 mg PO QDAY #30 tab.chew 06/21/18 Unknown Rx AtorvaSTATin [Lipitor] 40 mg PO QHS #30 tablet 06/21/18 Unknown Rx Clopidogrel [Plavix] 75 mg PO QDAY #30 tablet 06/21/18 Unknown Rx Furosemide [Lasix] 20 mg PO DAILY #30 tablet 06/21/18 Unknown Rx ISOSORBIDE MONOnitrate [Imdur ER] 30 mg PO DAILY #30 tab.er.24h 06/21/18 Unknown Rx Losartan [Cozaar] 100 mg PO QDAY #30 tablet 06/21/18 Unknown Rx Metoprolol [Lopressor TAB] 50 mg PO BID #60 tablet 06/21/18 Unknown Rx Nicotine [Habitrol] 21 mg TD DAILY #30 patch 06/21/18 Unknown Rx cloNIDine [Catapres] 0.1 mg PO BID #60 tablet 06/21/18 Unknown Rx Review of Systems Constitutional: no weight loss, no weight gain, no fever, no chills Ears, nose, mouth and throat: no ear pain, no ear discharge, no tinnitis, no decreased hearing, no nasal congestion, no nasal discharge Cardiovascular: orthopnea, shortness of breath, dyspnea on exertion, paroxysmal nocturnal dyspnea, leg edema, decreased exercise tolerance, no chest pain, no rapid/irregular heart beat Respiratory: cough, shortness of breath, wheezing, pain on inspiration, no excessive sputum Gastrointestinal: no nausea, no vomiting, no diarrhea, no constipation Genitourinary Female: no pelvic pain, no flank pain, no menorrhagia, no dysuria, no urinary frequency Rectal: no pain, no incontinence, no bleeding Musculoskeletal: no neck stiffness, no neck pain, no arm numbness/tingling, no low back pain, no shooting leg pain Integumentary: no rash, no pruritis, no redness, no sores, no wounds Neurological: no paralysis, no weakness, no parathesias, no numbness, no syncope Psychiatric: no anxiety, no memory loss, no sleep disturbances, no insomnia, no change in appetite, no change in libido, no suicidal ideation Endocrine: no cold intolerance, no heat intolerance, no excessive thirst, no excessive sweating Hematologic/Lymphatic: no easy bruising, no easy bleeding, no lymphadenopathy, no lymphedema Allergic/Immunologic: no allergic rhinitis, no persistent infections, no anaphylaxis Exam - Constitutional Vitals: Temp Pulse Resp BP Pulse Ox 98 F 91 H 24 222/112 100 04/12/19 13:16 04/12/19 13:16 04/12/19 13:16 04/12/19 13:16 04/12/19 13:16 General appearance: Present: mild distress, obese - EENT Eyes: Present: PERRL ENT: hearing intact, clear oral mucosa - Neck Neck: Present: supple, normal ROM - Respiratory Respiratory effort: labored, accessory muscle use, stridor Respiratory: bilateral: diminished - Cardiovascular Heart Sounds: Present: S1 & S2. Absent: rub, click - Extremities Extremities: pulses symmetrical, No edema Peripheral Pulses: within normal limits - Abdominal General gastrointestinal: Present: soft, non-tender, non-distended, normal bowel sounds Female genitourinary: Present: normal - Integumentary Integumentary: Present: clear, warm, dry - Musculoskeletal Musculoskeletal: gait normal, strength equal bilaterally - Psychiatric Psychiatric: appropriate mood/affect, intact judgment & insight - Neurologic Neurologic: CNII-XII intact, moves all extremities Results - Labs CBC & Chem 7: 04/12/19 12:34 04/12/19 12:34 Labs: Abnormal lab results 04/12/19 04/12/19 04/12/19 Range/Units 12:34 12:34 12:34 Hgb 9.2 L (10.1-14.3) gm/dl MCV 64 L (79-97) fl MCH 19 L (28-32) pg RDW 22.1 H (13.2-15.2) % Eos % (Auto) 9.3 H (0.0-4.3) % Eos # 0.6 H (0.0-0.4) K/mm3 Carbon Dioxide 20 L (22-30) mmol/L BUN 19 H (7-17) mg/dL Creatinine 0.6 L (0.7-1.2) mg/dL Glucose 103 H (65-100) mg/dL Alkaline Phosphatase 155 H (35-129) units/L NT-Pro-B Natriuret Pep 989.6 H (0-900) pg/mL Albumin 3.8 L (3.9-5) g/dL Assessment and Plan - Patient Problems (1) Acute respiratory failure with hypoxia Current Visit: No Status: Acute Plan to address problem: Supplemental oxygen, nebulizer therapy, pulse oximetry, NIPPV as clinically indicated, chest X ray, CTA Chest pending at time of admission (2) Acute exacerbation of CHF (congestive heart failure) Current Visit: No Status: Acute Plan to address problem: Strict I/O, daily weight, monitor uop q shift, cardiology consulted in ED, diuresis, pulse oximetry, supplemental oxygen, chest x ray, thyroid panel, magnesium level. (3) Obesity hypoventilation syndrome Current Visit: Yes Status: Acute Plan to address problem: supplemental oxygen, NIPPV as clinically indicated, pulse oximetry, chest x ray, balanced diet, outpatient bariatric surgery evaluation. (4) Hypertensive urgency Current Visit: No Status: Acute Plan to address problem: IV hydralazine prn, supportive care, monitor BP q shift, continue medical management. (5) Noncompliance with medication regimen Current Visit: No Status: Acute Plan to address problem: Behavior change counseling, supportive care. (6) Nicotine dependence Current Visit: Yes Status: Acute Qualifiers: Substance use status: in withdrawal Plan to address problem: smoking cessation counseling, supportive care. (7) Diabetes Current Visit: Yes Status: Acute Plan to address problem: ADA diet, insulin, accu check, hypoglycemia protocol (8) DVT prophylaxis Current Visit: Yes Status: Acute Plan to address problem: SCD to BLE while in bed, prophylactic lovenox
[2019-04-12] MEDS ORDERED: ALBUTEROL 2.5 MG/3 ML NEBU IH PRN (15:07)
[2019-04-12] MEDS ORDERED: ONDANSETRON 4 MG/2 ML INJ IV PRN (15:07)
[2019-04-12] MEDS ORDERED: LORazepam 2 MG/ML VIAL ONE (17:37)
[2019-04-12] MEDS ORDERED: LORazepam 2 MG/ML VIAL IV ONE (17:41)
[2019-04-12] MEDS: cloNIDine 0.1 MG TAB PO SCH (21:49)
[2019-04-12] MEDS: ENOXAPARIN 40 MG/0.4 ML INJ SUB-Q SCH (22:12)
[2019-04-12 22:13] LABS: Free T4 (Free Thyroxine) 1.16 ng/dL (0.76-1.46)
[2019-04-13] MEDS: LORazepam 2 MG/ML VIAL IV PRN ×4 (00:29→23:52)
[2019-04-13] MEDS: INSULIN LISPRO 100 UNIT/ML SUB-Q SCH ×5 (00:30→23:15)
[2019-04-13] MEDS: hydrALAZINE 20 MG/1 ML INJ IV PRN (06:53)
[2019-04-13] MEDS ORDERED: INSULIN LISPRO 100 UNIT/ML SUB-Q SCH (07:30)
[2019-04-13 09:16] LABS: Basophils % (Auto) 0.4 % (0.0-1.8); Lymphocytes # (Auto) 0.7 K/mm3 (1.2-5.4); Lymphocytes % (Auto) 8.8 % (13.4-35.0); Mean Corpuscular HGB Conc 30 % (30-34); Monocytes # (Auto) 0.4 K/mm3 (0.0-0.8); Monocytes % (Auto) 5.3 % (0.0-7.3); Platelet Count 337 K/mm3 (140-440); Red Blood Count 4.82 M/mm3 (3.65-5.03)
[2019-04-13 09:17] LABS: Hemoglobin 9.3 gm/dl (10.1-14.3); Mean Corpuscular Volume 64 fl (79-97); Red Cell Distribution Width 22.1 % (13.2-15.2)
[2019-04-13 09:37] LABS: BUN/Creatinine Ratio 34; Blood Urea Nitrogen 27 mg/dL (7-17); Calcium 9.6 mg/dL (8.4-10.2); Hemolysis Index 0
[2019-04-13] MEDS: ASPIRIN 81 MG TAB CHEW PO SCH (09:56)
[2019-04-13] MEDS: NICOTINE 21 MG/24 HR PATCH TD SCH (09:56)
[2019-04-13] MEDS: CLOPIDOGREL 75 MG TAB PO SCH (09:56)
[2019-04-13] MEDS: cloNIDine 0.1 MG TAB PO SCH (10:05)
[2019-04-13] MEDS: LOSARTAN 50 MG TAB PO SCH (10:06)
--- NOTE | 2019-04-13 11:10 | Consultation ---
History of Present Illness Consult date: 04/13/19 Requesting physician: CAROLINE PRATER Consult reason: congestive heart failure History of present illness: The pt is a 59 YO female with a past medical history of CAD s/p PCI, HTN, HLP, COPD, ongoing tobacco use, chronic respiratory failure on home O2 @ 5L (follows Dr. Shahid), ADAN, morbid obesity. She is followed in our office by Dr. Hernandez. She presented with c/o one month of progressively worsening BLE edema, SOB, PERALES, orthopnea and wheezing. She admits that she stopped taking her lasix several weeks ago because she was irritated by frequent urination. She also stopped taking her home breathing treatments because "steroids make you gain weight". Additionally, she ran out of Plavix several months ago. She also c/o frequent cough with frothy pink sputum and intermittent pleuritic chest pain associated with coughing. She denies any palpitations, n/v, diaphoresis, dizziness or syncope. [facility] 06/2018 with PCI of ramus with DIANELYS, left main patent, LAD patent, RCA moderate to severe tortuosity with mid stent patent, circ patent, OM1 50% with ramus 100% with successful PCI, acute diastolic dysfunction. Echo done 06/2018 showed EF 45-50%, mod LVH. Past History Past Medical History: other (see HPI) Past Surgical History: appendectomy, cholecystectomy, hysterectomy, tonsillectomy Social history: single, smoking Family history: diabetes, hypertension Medications and Allergies Allergies Allergy/AdvReac Type Severity Reaction Status Date / Time Penicillins Allergy Severe GO INTO Verified 06/19/18 15:03 SHOCK Home Medications Medication Instructions Recorded Confirmed Last Taken Type Aspirin [Aspirin BABY CHEW TAB] 81 mg PO QDAY #30 tab.chew 06/21/18 04/13/19 Unknown Rx AtorvaSTATin [Lipitor] 40 mg PO QHS #30 tablet 06/21/18 04/13/19 Unknown Rx Clopidogrel [Plavix] 75 mg PO QDAY #30 tablet 06/21/18 04/13/19 Unknown Rx Furosemide [Lasix] 20 mg PO DAILY #30 tablet 06/21/18 04/13/19 Unknown Rx ISOSORBIDE MONOnitrate [Imdur ER] 30 mg PO DAILY #30 tab.er.24h 06/21/18 04/13/19 Unknown Rx Losartan [Cozaar] 100 mg PO QDAY #30 tablet 06/21/18 04/13/19 Unknown Rx Metoprolol [Lopressor TAB] 50 mg PO BID #60 tablet 06/21/18 04/13/19 Unknown Rx cloNIDine [Catapres] 0.1 mg PO BID #60 tablet 06/21/18 04/13/19 Unknown Rx Active Meds: Active Medications Acetaminophen (Tylenol) 650 mg PO Q4H PRN PRN Reason: Pain MILD(1-3)/Fever >100.5/ALAS Albuterol (Proventil) 2.5 mg IH Q4HRT PRN PRN Reason: Shortness Of Breath Aspirin (Baby Aspirin) 81 mg PO QDAY [facility] Last Admin: 04/13/19 09:56 Dose: 81 mg Documented by: Atorvastatin Calcium (Lipitor) 40 mg PO QHS [facility] Last Admin: 04/12/19 21:50 Dose: 40 mg Documented by: Clonidine HCl (Catapres) 0.1 mg PO BID [facility] Last Admin: 04/13/19 10:05 Dose: 0.1 mg Documented by: Clopidogrel Bisulfate (Plavix) 75 mg PO QDAY [facility] Last Admin: 04/13/19 09:56 Dose: 75 mg Documented by: Enoxaparin Sodium (Enoxaparin) 40 mg SUB-Q QDAY@2200 [facility] Last Admin: 04/12/19 22:12 Dose: 40 mg Documented by: Hydralazine HCl (Apresoline) 10 mg IV Q6H PRN PRN Reason: Hypertension Last Admin: 04/13/19 06:53 Dose: 10 mg Documented by: Insulin Human Lispro (Humalog) 0 unit SUB-Q [facility]; Protocol Last Admin: 04/13/19 09:57 Dose: 1 unit Documented by: Isosorbide Mononitrate (Imdur) 30 mg PO DAILY [facility] Last Admin: 04/13/19 10:02 Dose: 30 mg Documented by: Lorazepam (Ativan) 1 mg IV Q3H PRN PRN Reason: Anxiety Last Admin: 04/13/19 00:29 Dose: 1 mg Documented by: Losartan Potassium (Cozaar) 100 mg PO QDAY [facility] Last Admin: 04/13/19 10:06 Dose: 100 mg Documented by: Nicotine (Habitrol) 21 mg TD DAILY [facility] Last Admin: 04/13/19 09:56 Dose: 21 mg Documented by: Ondansetron HCl (Zofran) 4 mg IV Q8H PRN PRN Reason: Nausea And Vomiting Sodium Chloride (Sodium Chloride Flush Syringe 10 Ml) 10 ml IV BID [facility] Last Admin: 04/13/19 10:05 Dose: 10 ml Documented by: Sodium Chloride (Sodium Chloride Flush Syringe 10 Ml) 10 ml IV PRN PRN PRN Reason: LINE FLUSH Review of Systems Constitutional: no weight loss, no weight gain, no fever, no chills, no sweats Ears, nose, mouth and throat: no ear pain, no nose pain, no sinus pressure, no sinus pain Cardiovascular: chest pain, orthopnea, edema, shortness of breath, dyspnea on exertion, paroxysmal nocturnal dyspnea, high blood pressure, leg edema, decreased exercise tolerance, no palpitations, no rapid/irregular heart beat, no syncope, no lightheadedness Respiratory: cough, cough with sputum, shortness of breath, dyspnea on exertion, wheezing, pain on inspiration, no congestion Gastrointestinal: no abdominal pain, no nausea, no vomiting, no diarrhea, no constipation, no change in bowel habits Genitourinary Female: no pelvic pain, no flank pain, no dysuria, no urinary frequency, no urgency Musculoskeletal: no neck stiffness, no neck pain, no shooting arm pain, no arm numbness/tingling, no low back pain, no shooting leg pain Integumentary: no rash, no pruritis, no redness, no sores, no wounds Neurological: no head injury, no paralysis, no weakness, no parathesias, no numbness, no tingling, no seizures, no syncope Psychiatric: no anxiety Endocrine: no cold intolerance, no heat intolerance Hematologic/Lymphatic: no easy bruising, no easy bleeding Allergic/Immunologic: no urticaria, no wheezing Physical Examination Vital Signs Temp Pulse Resp BP Pulse Ox 98.1 F 105 H 18 205/91 98 04/12/19 11:56 04/12/19 11:56 04/12/19 11:56 04/12/19 11:56 04/12/19 11:56 General appearance: no acute distress HEENT: Positive: PERRL, Normocephaly, Mucus Membranes Moist Neck: Positive: neck supple, trachea midline Cardiac: Positive: Reg Rate and Rhythm, S1/S2 Lungs: Positive: Decreased Breath Sounds, Wheezes, Oxygen Neuro: Positive: Grossly Intact Abdomen: Negative: Tender Skin: Negative: Rash Musculoskeletal: No Pain Extremities: Present: +2 Edema (BLE) Results 04/13/19 08:38 04/13/19 08:38 Cardiac Enzymes 04/12/19 Range/Units 12:34 AST 10 (5-40) units/L CBC 04/12/19 12 Range/Units 12:34 08:38 WBC 6.4 7.4 (4.5-11.0) K/mm3 RBC 4.82 4.82 (3.65-5.03) M/mm3 Hgb 9.2 L 9.3 L (10.1-14.3) gm/dl Hct 30.8 31.0 (30.3-42.9) % Plt Count 329 337 (140-440) K/mm3 Lymph # 1.2 0.7 L (1.2-5.4) K/mm3 [place] # 0.5 0.4 (0.0-0.8) K/mm3 Eos # 0.6 H 0.0 (0.0-0.4) K/mm3 Baso # 0.0 0.0 (0.0-0.1) K/mm3 Comprehensive Metabolic Panel 04/12/19 04/13/19 Range/Units 12:34 08:38 Sodium 141 140 (137-145) mmol/L Potassium 4.2 4.6 (3.6-5.0) mmol/L Chloride 106.2 104.8 (98-107) mmol/L Carbon Dioxide 20 L 19 L (22-30) mmol/L BUN 19 H 27 H (7-17) mg/dL Creatinine 0.6 L 0.8 (0.7-1.2) mg/dL Glucose 103 H 149 H (65-100) mg/dL Calcium 8.9 9.6 (8.4-10.2) mg/dL AST 10 (5-40) units/L ALT 8 (7-56) units/L Alkaline Phosphatase 155 H (35-129) units/L Total Protein 7.7 (6.3-8.2) g/dL Albumin 3.8 L (3.9-5) g/dL - Imaging and Cardiology Echo: report reviewed (06/2018 showed EF 45-50%, mod LVH. ) Cardiac cath: report reviewed ( 06/2018 with PCI of ramus with DIANELYS, left main patent, LAD patent, RCA moderate to severe tortuosity with mid stent patent, circ patent, OM1 50% with ramus 100% with successful PCI, acute diastolic dysfunction. ) EKG: report reviewed, image reviewed EKG interpretations - Telemetry EKG Rhythm: Sinus Rhythm - EKG Sinus rhythms and dysrhythmias: sinus rhythm Assessment and Plan Initiate scheduled IV diuresis. Optimize anti-hypertensive regimen - will avoid BB at this time in setting of COPD with acute exacerbation. Obtain echo. Recommend pulmonary consultation per primary. Further recs to follow per hospital course. The patient has been seen in conjunction with Dr. Joselito Brian who agrees with the assessment and plan of care. - Patient Problems (1) Acute HFrEF (heart failure with reduced ejection fraction) Current Visit: Yes Status: Acute (2) COPD exacerbation Current Visit: Yes Status: Acute (3) Acute on chronic respiratory failure Current Visit: Yes Status: Acute (4) Accelerated hypertension Current Visit: Yes Status: Acute (5) CAD (coronary artery disease) Current Visit: Yes Status: Chronic Qualifiers: Coronary Disease-Associated Artery/Lesion type: [place] artery [place] vs. transplanted heart: [place] heart Associated angina: with stable angina Qualified Code(s): I25.118 - Atherosclerotic heart disease of [place] coronary artery with other forms of angina pectoris (6) Stented coronary artery Current Visit: Yes Status: Chronic (7) Diabetes Current Visit: Yes Status: Chronic (8) Pleuritic chest pain Current Visit: Yes Status: Acute (9) Hyperlipidemia Current Visit: Yes Status: Chronic Qualifiers: Hyperlipidemia type: mixed hyperlipidemia Qualified Code(s): E78.2 - Mixed hyperlipidemia (10) Morbid obesity Current Visit: Yes Status: Chronic (11) Obstructive sleep apnea Current Visit: Yes Status: Chronic (12) Tobacco abuse Current Visit: Yes Status: Chronic (13) Medical non-compliance Current Visit: Yes Status: Chronic
[2019-04-13] MEDS ORDERED: cloNIDine 0.1 MG TAB PO SCH (11:27)
[2019-04-13] MEDS ORDERED: cloNIDine 0.1 MG TAB PO ONE ×2 (12:00→15:00)
--- NOTE | 2019-04-13 13:32 | Progress Note ---
Assessment and Plan Assessment and plan: Acute HFrEF. Cont IV diuresis per Cardiology. F/U ECHO. Cardiology consulted. Acute COPD exacerbation. Cont steroids,, bronchodilators/nebs. Pulm consult Accel HTN. Cont home regimen and adjust as needed CAD. hx of stent. Cont per Cards DMII. Accuchecks and SSRI HLD. Cont statin Morbid obesity. Pt will be couseled on weight loss and exercise Tobacco abuse. Pt will be couseled on cessation History Interval history: Pt still c/o SOB Hospitalist Physical - Constitutional Vitals: Temp Pulse Resp BP Pulse Ox 97.4 F L 90 22 198/108 100 04/13/19 12:15 04/13/19 12:15 04/13/19 12:15 04/13/19 12:15 04/13/19 12:15 General appearance: Present: no acute distress - EENT Eyes: Present: PERRL, EOM intact ENT: hearing intact, clear oral mucosa, dentition normal - Neck Neck: Present: supple, normal ROM - Respiratory Respiratory effort: normal Respiratory: bilateral: CTA - Cardiovascular Rhythm: regular Heart Sounds: Present: S1 & S2. Absent: gallop, rub - Extremities Extremities: no ischemia, No edema, Full ROM Extremity abnormal: edema - Abdominal General gastrointestinal: soft, non-tender, non-distended, normal bowel sounds - Integumentary Integumentary: Present: clear, warm, dry - Neurologic Neurologic: CNII-XII intact, moves all extremities Results - Labs CBC & Chem 7: 04/13/19 08:38 04/13/19 08:38 Labs: Laboratory Last Values WBC 7.4 K/mm3 (4.5-11.0) 04/13/19 08:38 RBC 4.82 M/mm3 (3.65-5.03) 04/13/19 08:38 Hgb 9.3 gm/dl (10.1-14.3) L 04/13/19 08:38 Hct 31.0 % (30.3-42.9) 04/13/19 08:38 MCV 64 fl (79-97) L 04/13/19 08:38 MCH 19 pg (28-32) L 04/13/19 08:38 MCHC 30 % (30-34) 04/13/19 08:38 RDW 22.1 % (13.2-15.2) H 04/13/19 08:38 Plt Count 337 K/mm3 (140-440) 04/13/19 08:38 Lymph % (Auto) 8.8 % (13.4-35.0) L 04/13/19 08:38 [place] % (Auto) 5.3 % (0.0-7.3) 04/13/19 08:38 Eos % (Auto) 0.0 % (0.0-4.3) 04/13/19 08:38 Baso % (Auto) 0.4 % (0.0-1.8) 04/13/19 08:38 Lymph # 0.7 K/mm3 (1.2-5.4) L 04/13/19 08:38 [place] # 0.4 K/mm3 (0.0-0.8) 04/13/19 08:38 Eos # 0.0 K/mm3 (0.0-0.4) 04/13/19 08:38 Baso # 0.0 K/mm3 (0.0-0.1) 04/13/19 08:38 Seg Neutrophils % 85.5 % (40.0-70.0) H 04/13/19 08:38 Seg Neutrophils # 6.3 K/mm3 (1.8-7.7) 04/13/19 08:38 Sodium 140 mmol/L (137-145) 04/13/19 08:38 Potassium 4.6 mmol/L (3.6-5.0) 04/13/19 08:38 Chloride 104.8 mmol/L (98-107) 04/13/19 08:38 Carbon Dioxide 19 mmol/L (22-30) L 04/13/19 08:38 Anion Gap 21 mmol/L 04/13/19 08:38 BUN 27 mg/dL (7-17) H 04/13/19 08:38 Creatinine 0.8 mg/dL (0.7-1.2) 04/13/19 08:38 Estimated GFR > 60 ml/min 04/13/19 08:38 BUN/Creatinine Ratio 34 % 04/13/19 08:38 Glucose 149 mg/dL (65-100) H 04/13/19 08:38 POC Glucose 412 (70-105) H 04/13/19 12:23 Calcium 9.6 mg/dL (8.4-10.2) 04/13/19 08:38 Magnesium 2.40 mg/dL (1.7-2.3) H 04/12/19 20:51 Total Bilirubin 0.20 mg/dL (0.1-1.2) 04/12/19 12:34 AST 10 units/L (5-40) 04/12/19 12:34 ALT 8 units/L (7-56) 04/12/19 12:34 Alkaline Phosphatase 155 units/L (35-129) H 04/12/19 12:34 Troponin T < 0.010 ng/mL (0.00-0.029) 04/12/19 12:34 NT-Pro-B Natriuret Pep 989.6 pg/mL (0-900) H 04/12/19 12:34 Total Protein 7.7 g/dL (6.3-8.2) 04/12/19 12:34 Albumin 3.8 g/dL (3.9-5) L 04/12/19 12:34 Albumin/Globulin Ratio 1.0 % 04/12/19 12:34 TSH 0.417 mlU/mL (0.270-4.200) 04/12/19 20:51 Free T4 1.16 ng/dL (0.76-1.46) 04/12/19 20:51 Active Medications - Current Medications Current Medications: Generic Name Dose Route Start Last Admin Trade Name Freq PRN Reason Stop Dose Admin Acetaminophen 650 mg 04/12/19 15:07 Tylenol PO Q4H PRN Pain MILD(1-3)/Fever >100.5/ALAS Albuterol 2.5 mg 04/12/19 15:07 Proventil IH Q4HRT PRN Shortness Of Breath Amlodipine Besylate 10 mg 04/13/19 12:00 Amlodipine PO QDAY [facility] Aspirin 81 mg 04/13/19 10:00 04/13/19 09:56 Baby Aspirin PO 81 mg QDAY [facility]IE Administration Atorvastatin Calcium 40 mg 04/12/19 22:00 04/12/19 21:50 Lipitor PO 40 mg QHS [facility]IE Administration Clonidine HCl 0.2 mg 04/13/19 22:00 Catapres PO BID [facility]IE Clopidogrel Bisulfate 75 mg 04/13/19 10:00 04/13/19 09:56 Plavix PO 75 mg QDAY [facility]IE Administration Enoxaparin Sodium 40 mg 04/12/19 22:00 04/12/19 22:12 Enoxaparin SUB-Q 40 mg QDAY@2200 [facility] Administration Furosemide 40 mg 04/13/19 11:22 Lasix IV 0600,1800 [facility]IE Hydralazine HCl 10 mg 04/12/19 20:22 04/13/19 06:53 Apresoline IV 10 mg Q6H PRN Administration Hypertension Insulin Human Lispro 0 unit 04/13/19 00:01 04/13/19 09:57 Humalog SUB-Q 1 unit ACHS ANN MARIE Administration Protocol Isosorbide Mononitrate 60 mg 04/14/19 10:00 Imdur PO QDAY [facility]IE Lorazepam 1 mg 04/12/19 23:57 04/13/19 11:23 Ativan IV 1 mg Q3H PRN Administration Anxiety Losartan Potassium 100 mg 04/13/19 10:00 04/13/19 10:06 Cozaar PO 100 mg QDAY [facility]IE Administration Nicotine 21 mg 04/13/19 10:00 04/13/19 09:56 Habitrol TD 21 mg DAILY [facility] Administration Ondansetron HCl 4 mg 04/12/19 15:07 Zofran IV Q8H PRN Nausea And Vomiting Sodium Chloride 10 ml 04/12/19 22:00 04/13/19 10:05 Sodium Chloride Flush Syringe 10 Ml IV 10 ml BID [facility] Administration Sodium Chloride 10 ml 04/12/19 15:07 Sodium Chloride Flush Syringe 10 Ml IV PRN PRN LINE FLUSH
[2019-04-13] MEDS: FUROSEMIDE 40 MG/4 ML INJ IV SCH ×2 (13:51→18:30)
[2019-04-13] MEDS: methylPREDNISolone Sod Succinate 125 MG/2 ML INJ IV SCH ×2 (15:02→23:16)
[2019-04-13] MEDS: amLODIPine 10 MG TAB PO SCH (15:14)
--- NOTE | 2019-04-13 17:48 | Consultation ---
History of Present Illness Consult date: 04/13/19 Reason for consult: dyspnea, cough, chest pain, COPD, obstructive sleep apnea History of present illness: PULMONARY AND CRITICAL CARE CONSULTATION. DR. Haile thank you for asking us to participate in the care of this patient. 59 YO Female with HTN, Diastolic CHF(EF 45%), COPD, OA, Chronic Respiratory Failure on Home Oxygen via NC, DM, CAD S/P Stent Placement on DAPT, Nicotine Dependence, Medication Noncompliance presents to ED for evaluation. Pt states that she has experienced shortness of breath, productive cough with yellow sputum as well as chest discomfort with deep breathing. Pt acknowledges Orthopnea/PND, Dypsnea on Exertion, Dypsnea at rest, leg edema. Pt acknowledges dietary and medication noncompliance. Pt transported to [facility] via private vehicle. Pt seen and evaluated in ED and found to have Acute Hypoxemic Respiratory failure, and placed on supplemental oxygen, and nebulizer therapy without improvement. Pt also found to have CHF Decompensation, Hypertensive Urgency. Pt admitted to Medical floor with remote telemetry. Cardiology consulted in ED. Pt denies fever, chills, palpitations, hemoptysis, BRBPR, skin rash, recent ill contacts. Prior admission on 06/19/18 reviewed. All medication listed at time of admission has been reconciled. Patient complaining cough with russell sputum. Denies hemoptysis. Patient has history of smoking . Counselled to stop smoking 30 years. Denies alcohol or drug abuse. Patient allergic to pencillins. Patient not and has 3 children. Patient alert, awake. sitting up in chair. On 5 litres O2. O2 saturation 98% Patient still has mild wheezing. No acute respiratory distress. Patient has history of sleep apnea. Uses CPAP at home. Past History Past Medical History: other (see HPI) Past Surgical History: appendectomy, cholecystectomy, hysterectomy, tonsillectomy Social history: single, smoking Family history: diabetes, hypertension Medications and Allergies Allergies Allergy/AdvReac Type Severity Reaction Status Date / Time Penicillins Allergy Severe GO INTO Verified 06/19/18 15:03 SHOCK Home Medications Medication Instructions Recorded Confirmed Last Taken Type Aspirin [Aspirin BABY CHEW TAB] 81 mg PO QDAY #30 tab.chew 06/21/18 04/13/19 Unknown Rx AtorvaSTATin [Lipitor] 40 mg PO QHS #30 tablet 06/21/18 04/13/19 Unknown Rx Clopidogrel [Plavix] 75 mg PO QDAY #30 tablet 06/21/18 04/13/19 Unknown Rx Furosemide [Lasix] 20 mg PO DAILY #30 tablet 06/21/18 04/13/19 Unknown Rx ISOSORBIDE MONOnitrate [Imdur ER] 30 mg PO DAILY #30 tab.er.24h 06/21/18 04/13/19 Unknown Rx Losartan [Cozaar] 100 mg PO QDAY #30 tablet 06/21/18 04/13/19 Unknown Rx Metoprolol [Lopressor TAB] 50 mg PO BID #60 tablet 06/21/18 04/13/19 Unknown Rx cloNIDine [Catapres] 0.1 mg PO BID #60 tablet 06/21/18 04/13/19 Unknown Rx Active Meds: Active Medications Acetaminophen (Tylenol) 650 mg PO Q4H PRN PRN Reason: Pain MILD(1-3)/Fever >100.5/ALAS Albuterol (Proventil) 2.5 mg IH Q4HRT PRN PRN Reason: Shortness Of Breath Amlodipine Besylate (Amlodipine) 10 mg PO QDAY [facility] Last Admin: 04/13/19 15:14 Dose: 10 mg Documented by: Aspirin (Baby Aspirin) 81 mg PO QDAY [facility] Last Admin: 04/13/19 09:56 Dose: 81 mg Documented by: Atorvastatin Calcium (Lipitor) 40 mg PO QHS [facility] Last Admin: 04/12/19 21:50 Dose: 40 mg Documented by: Clonidine HCl (Catapres) 0.2 mg PO BID [facility] Clopidogrel Bisulfate (Plavix) 75 mg PO QDAY [facility] Last Admin: 04/13/19 09:56 Dose: 75 mg Documented by: Enoxaparin Sodium (Enoxaparin) 40 mg SUB-Q QDAY@2200 [facility] Last Admin: 04/12/19 22:12 Dose: 40 mg Documented by: Furosemide (Lasix) 40 mg IV 0600,1800 [facility] Last Admin: 04/13/19 13:51 Dose: 40 mg Documented by: Hydralazine HCl (Apresoline) 10 mg IV Q6H PRN PRN Reason: Hypertension Last Admin: 04/13/19 06:53 Dose: 10 mg Documented by: Insulin Glargine (Lantus) 10 units SUB-Q QHS [facility] Insulin Human Lispro (Humalog) 0 unit SUB-Q ACHS [facility]; Protocol Last Admin: 04/13/19 17:22 Dose: Not Given Documented by: Isosorbide Mononitrate (Imdur) 60 mg PO QDAY [facility] Lorazepam (Ativan) 1 mg IV Q3H PRN PRN Reason: Anxiety Last Admin: 04/13/19 11:23 Dose: 1 mg Documented by: Losartan Potassium (Cozaar) 100 mg PO QDAY [facility] Last Admin: 04/13/19 10:06 Dose: 100 mg Documented by: Methylprednisolone Sodium Succinate (Solu-Medrol) 60 mg IV Q8HR [facility] Last Admin: 04/13/19 15:02 Dose: 60 mg Documented by: Nicotine (Habitrol) 21 mg TD DAILY [facility] Last Admin: 04/13/19 09:56 Dose: 21 mg Documented by: Ondansetron HCl (Zofran) 4 mg IV Q8H PRN PRN Reason: Nausea And Vomiting Sodium Chloride (Sodium Chloride Flush Syringe 10 Ml) 10 ml IV BID [facility] Last Admin: 04/13/19 10:05 Dose: 10 ml Documented by: Sodium Chloride (Sodium Chloride Flush Syringe 10 Ml) 10 ml IV PRN PRN PRN Reason: LINE FLUSH Review of Systems All systems: negative Physical Examination Vital signs: Vital Signs Temp Pulse Resp BP Pulse Ox 98.1 F 105 H 18 205/91 98 04/12/19 11:56 04/12/19 11:56 04/12/19 11:56 04/12/19 11:56 04/12/19 11:56 General appearance: no acute distress, alert Eyes: non-icteric Neck: supple, no JVD Ascultation: Bilateral: wheezes Cardiovascular: regular rate and rhythm Gastrointestinal: normoactive bowel sounds, soft, non-tender Integumentary: normal Extremities: no cyanosis, no edema Musculoskeletal: no deformities Gait: other (Can not assess at this time.) normal mental status, non-focal exam, pupils equal and round, CN II-XII normal mood appropriate Results - Laboratory Findings CBC and BMP: 04/13/19 08:38 04/13/19 08:38 Abnormal lab findings: Abnormal Labs 04/12/19 04/12/19 04/12/19 12:34 12:34 12:34 Hgb 9.2 L MCV 64 L MCH 19 L RDW 22.1 H Lymph % (Auto) Eos % (Auto) 9.3 H Lymph # Eos # 0.6 H Seg Neutrophils % Carbon Dioxide 20 L BUN 19 H Creatinine 0.6 L Glucose 103 H POC Glucose Magnesium Alkaline Phosphatase 155 H NT-Pro-B Natriuret Pep 989.6 H Albumin 3.8 L 04/12/19 04/12/19 04/13/19 20:51 21:48 07:37 Hgb MCV MCH RDW Lymph % (Auto) Eos % (Auto) Lymph # Eos # Seg Neutrophils % Carbon Dioxide BUN Creatinine Glucose POC Glucose 180 H 153 H Magnesium 2.40 H Alkaline Phosphatase NT-Pro-B Natriuret Pep Albumin 04/13/19 04/13/19 04/13/19 08:38 08:38 12:23 Hgb 9.3 L MCV 64 L MCH 19 L RDW 22.1 H Lymph % (Auto) 8.8 L Eos % (Auto) Lymph # 0.7 L Eos # Seg Neutrophils % 85.5 H Carbon Dioxide 19 L BUN 27 H Creatinine Glucose 149 H POC Glucose 412 H Magnesium Alkaline Phosphatase NT-Pro-B Natriuret Pep Albumin 04/13/19 17:01 Hgb MCV MCH RDW Lymph % (Auto) Eos % (Auto) Lymph # Eos # Seg Neutrophils % Carbon Dioxide BUN Creatinine Glucose POC Glucose 131 H Magnesium Alkaline Phosphatase NT-Pro-B Natriuret Pep Albumin - Diagnostic Findings Chest x-ray: report reviewed (Stable cardiomegaly and no acute cardiopulmonary process.), image reviewed Assessment and Plan 59 YO Female with HTN, Diastolic CHF(EF 45%), COPD, OA, Chronic Respiratory Failure on Home Oxygen via NC, DM, CAD S/P Stent Placement on DAPT, Nicotine Dependence, Medication Noncompliance presents to ED for evaluation. Pt states that she has experienced shortness of breath, productive cough with yellow sputum as well as chest discomfort with deep breathing. Pt acknowledges Orthopnea/PND, Dypsnea on Exertion, Dypsnea at rest, leg edema. Pt acknowledges dietary and medication noncompliance. Pt transported to [facility] via private vehicle. Pt seen and evaluated in ED and found to have Acute Hypoxemic Respiratory failure, and placed on supplemental oxygen, and nebulizer therapy without improvement. Pt also found to have CHF Decompensation, Hypertensive Urgency. Pt admitted to Medical floor with remote telemetry. Cardiology consulted in ED. Pt denies fever, chills, palpitations, hemoptysis, BRBPR, skin rash, recent ill contacts. Prior admission on 06/19/18 reviewed. All medication listed at time of admission has been reconciled. Patient complaining cough with russell sputum. Denies hemoptysis. Patient has history of smoking . Counselled to stop smoking 30 years. Denies alcohol or drug abuse. Patient allergic to pencillins. Patient not and has 3 children. Patient alert, awake. sitting up in chair. On 5 litres O2. O2 saturation 98% Patient still has mild wheezing. No acute respiratory distress. Patient has history of sleep apnea. Uses CPAP at home. - Patient Problems (1) Acute on chronic respiratory failure Current Visit: Yes Status: Acute Plan to address problem: O2 5 litres O2. BIPAP during night time and Prn for shortness of breath during day time. Albuterol/atrovent aerosol treatments q 6 hours. Continue I/V solumedrol. Continue S/C Lovenox. Recommend GI prophylaxis. (2) COPD exacerbation Current Visit: Yes Status: Acute Plan to address problem: O2 5 litres O2. BIPAP during night time and Prn for shortness of breath during day time. Albuterol/atrovent aerosol treatments q 6 hours. Continue I/V solumedrol. Continue S/C Lovenox. Recommend GI prophylaxis. ABGs on O2. (3) Morbid obesity Current Visit: Yes Status: Chronic Plan to address problem: Recommend loose weight. Diet and exercise. Recommend to consult stone derrickman and rigger for weight reduction diet. (4) Obesity hypoventilation syndrome Current Visit: Yes Status: Acute Plan to address problem: ABGs on O2. BIPAP during night time and Prn for shortness of breath during day time. (5) Obstructive sleep apnea Current Visit: Yes Status: Chronic Plan to address problem: BIPAP during night time and Prn for shortness of breath during day time. (6) Accelerated hypertension Current Visit: Yes Status: Acute Plan to address problem: Management as per primary care. (7) Nicotine dependence Current Visit: Yes Status: Acute Qualifiers: Substance use status: in withdrawal Plan to address problem: Counselled to stop smoking.
[2019-04-13] MEDS: cloNIDine 0.2 MG TAB PO SCH (23:14)
[2019-04-13] MEDS: ENOXAPARIN 40 MG/0.4 ML INJ SUB-Q SCH (23:16)
[2019-04-13] MEDS: INSULIN GLARGINE 100 UNITS/ML SUB-Q SCH (23:17)
[2019-04-14] MEDS: methylPREDNISolone Sod Succinate 125 MG/2 ML INJ IV SCH ×3 (06:03→22:00)
[2019-04-14] MEDS: FUROSEMIDE 40 MG/4 ML INJ IV SCH ×2 (06:03→17:30)
[2019-04-14] MEDS: hydrALAZINE 20 MG/1 ML INJ IV PRN (06:03)
[2019-04-14 06:14] LABS: BUN/Creatinine Ratio 38; Blood Urea Nitrogen 30 mg/dL (7-17); Calcium 9.2 mg/dL (8.4-10.2); Hemolysis Index 38
[2019-04-14] MEDS: INSULIN LISPRO 100 UNIT/ML SUB-Q SCH ×4 (08:38→22:01)
[2019-04-14] MEDS: NICOTINE 21 MG/24 HR PATCH TD SCH (09:20)
[2019-04-14] MEDS: CLOPIDOGREL 75 MG TAB PO SCH (09:21)
[2019-04-14] MEDS: LOSARTAN 50 MG TAB PO SCH (09:21)
[2019-04-14] MEDS: cloNIDine 0.2 MG TAB PO SCH ×2 (09:22→22:00)
[2019-04-14] MEDS: amLODIPine 10 MG TAB PO SCH (09:22)
[2019-04-14] MEDS: LORazepam 2 MG/ML VIAL IV PRN ×2 (09:22→17:31)
[2019-04-14] MEDS: ASPIRIN 81 MG TAB CHEW PO SCH (09:22)
--- NOTE | 2019-04-14 10:32 | Progress Note ---
Assessment and Plan Cont IV diuresis. Echo reviewed - EF 35-40%, mild LVH, restrictive diastolic filling, moderate pulm HTN. Echo done 06/2018 showed EF 45-50%, mod LVH. Wheezing is greatly improved. Will initiate lopressor (beta selective) for BP optimization in setting of CMP. Pulmonary recs appreciated. The patient has been seen in conjunction with Dr. Joselito Brian who agrees with the assessment and plan of care. - Patient Problems (1) Acute HFrEF (heart failure with reduced ejection fraction) Current Visit: Yes Status: Acute (2) Cardiomyopathy Current Visit: Yes Status: Chronic (3) COPD exacerbation Current Visit: Yes Status: Acute (4) Acute on chronic respiratory failure Current Visit: Yes Status: Acute (5) Accelerated hypertension Current Visit: Yes Status: Acute (6) CAD (coronary artery disease) Current Visit: Yes Status: Chronic Qualifiers: Coronary Disease-Associated Artery/Lesion type: ramona artery [place] vs. transplanted heart: ramona heart Associated angina: with stable angina Qualified Code(s): I25.118 - Atherosclerotic heart disease of ramona coronary artery with other forms of angina pectoris (7) Stented coronary artery Current Visit: Yes Status: Chronic (8) Diabetes Current Visit: Yes Status: Chronic (9) Pleuritic chest pain Current Visit: Yes Status: Acute (10) Hyperlipidemia Current Visit: Yes Status: Chronic Qualifiers: Hyperlipidemia type: mixed hyperlipidemia Qualified Code(s): E78.2 - Mixed hyperlipidemia (11) Morbid obesity Current Visit: Yes Status: Chronic (12) Obstructive sleep apnea Current Visit: Yes Status: Chronic (13) Tobacco abuse Current Visit: Yes Status: Chronic (14) Medical non-compliance Current Visit: Yes Status: Chronic Subjective Date of service: 04/14/19 Principal diagnosis: HF; COPD exac Interval history: pt resting in bed, feeling better today. in SR on tele. Objective Last Vital Signs Temp 98.1 F 04/14/19 05:11 Pulse 95 H 04/14/19 06:33 Resp 24 04/14/19 05:11 BP 180/102 04/14/19 06:33 Pulse Ox 98 04/14/19 07:59 - Physical Examination General: No Apparent Distress HEENT: Positive: PERRL, Normocephaly, Mucus Membranes Moist Neck: Positive: neck supple, trachea midline Cardiac: Positive: Reg Rate and Rhythm, S1/S2 Lungs: Positive: Decreased Breath Sounds Neuro: Positive: Grossly Intact Abdomen: Negative: Tender Skin: Negative: Rash Musculoskeletal: No Pain Extremities: Present: +1 Edema (BLE) - Labs and Meds Comprehensive Metabolic Panel 04/14/19 Range/Units 05:32 Sodium 137 (137-145) mmol/L Potassium 5.0 (3.6-5.0) mmol/L Chloride 103.0 (98-107) mmol/L Carbon Dioxide 24 (22-30) mmol/L BUN 30 H (7-17) mg/dL Creatinine 0.8 (0.7-1.2) mg/dL Glucose 210 H (65-100) mg/dL Calcium 9.2 (8.4-10.2) mg/dL - Imaging and Cardiology EKG: report reviewed, image reviewed Echo: report reviewed (06/2018 showed EF 45-50%, mod LVH. ) Cardiac cath: report reviewed ( 06/2018 with PCI of ramus with DIANELYS, left main patent, LAD patent, RCA moderate to severe tortuosity with mid stent patent, circ patent, OM1 50% with ramus 100% with successful PCI, acute diastolic dysfunction. ) - Telemetry EKG Rhythm: Sinus Rhythm - EKG Sinus rhythms and dysrhythmias: sinus rhythm
[2019-04-14] MEDS ORDERED: FLU VACC QUAD 2019-20 (3 YR UP)/PF 60 MCG/0.5 ML SYRINGE IM ONE (12:00)
[2019-04-14] MEDS: METOPROLOL TARTRATE 25 MG TAB PO SCH ×2 (14:46→22:00)
--- NOTE | 2019-04-14 15:17 | Progress Note ---
Assessment and Plan Assessment and plan: Acute HFrEF. Cont IV diuresis per Cardiology. ECHO revealed - EF 35-40%, mild LVH, restrictive diastolic filling, moderate pulm HTN. Echo done 06/2018 showed EF 45-50%, mod LVH. Cardiology following Acute COPD exacerbation. Cont steroids, bronchodilators/nebs. Accel HTN. Cont home regimen and adjust as needed CAD. hx of stent. Cont per Cards DMII. Accuchecks and SSRI HLD. Cont statin Morbid obesity. Pt will be couseled on weight loss and exercise Tobacco abuse. Pt will be couseled on cessation History Interval history: Pt still c/o SOB Hospitalist Physical - Constitutional Vitals: Temp Pulse Resp BP Pulse Ox 98.0 F 82 20 165/87 94 04/14/19 11:41 04/14/19 11:41 04/14/19 11:41 04/14/19 11:41 04/14/19 11:41 General appearance: Present: no acute distress - EENT Eyes: Present: PERRL, EOM intact ENT: hearing intact, clear oral mucosa, dentition normal - Neck Neck: Present: supple, normal ROM - Respiratory Respiratory effort: normal Respiratory: bilateral: CTA - Cardiovascular Rhythm: regular Heart Sounds: Present: S1 & S2. Absent: gallop, rub - Extremities Extremities: no ischemia, No edema, Full ROM - Abdominal General gastrointestinal: soft, non-tender, non-distended, normal bowel sounds - Integumentary Integumentary: Present: clear, warm, dry - Neurologic Neurologic: CNII-XII intact, moves all extremities Results - Labs CBC & Chem 7: 04/13/19 08:38 04/14/19 05:32 Labs: Laboratory Last Values WBC 7.4 K/mm3 (4.5-11.0) 04/13/19 08:38 RBC 4.82 M/mm3 (3.65-5.03) 04/13/19 08:38 Hgb 9.3 gm/dl (10.1-14.3) L 04/13/19 08:38 Hct 31.0 % (30.3-42.9) 04/13/19 08:38 MCV 64 fl (79-97) L 04/13/19 08:38 MCH 19 pg (28-32) L 04/13/19 08:38 MCHC 30 % (30-34) 04/13/19 08:38 RDW 22.1 % (13.2-15.2) H 04/13/19 08:38 Plt Count 337 K/mm3 (140-440) 04/13/19 08:38 Lymph % (Auto) 8.8 % (13.4-35.0) L 04/13/19 08:38 Moody % (Auto) 5.3 % (0.0-7.3) 04/13/19 08:38 Eos % (Auto) 0.0 % (0.0-4.3) 04/13/19 08:38 Baso % (Auto) 0.4 % (0.0-1.8) 04/13/19 08:38 Lymph # 0.7 K/mm3 (1.2-5.4) L 04/13/19 08:38 Moody # 0.4 K/mm3 (0.0-0.8) 04/13/19 08:38 Eos # 0.0 K/mm3 (0.0-0.4) 04/13/19 08:38 Baso # 0.0 K/mm3 (0.0-0.1) 04/13/19 08:38 Seg Neutrophils % 85.5 % (40.0-70.0) H 04/13/19 08:38 Seg Neutrophils # 6.3 K/mm3 (1.8-7.7) 04/13/19 08:38 Sodium 137 mmol/L (137-145) 04/14/19 05:32 Potassium 5.0 mmol/L (3.6-5.0) 04/14/19 05:32 Chloride 103.0 mmol/L (98-107) 04/14/19 05:32 Carbon Dioxide 24 mmol/L (22-30) 04/14/19 05:32 Anion Gap 15 mmol/L 04/14/19 05:32 BUN 30 mg/dL (7-17) H 04/14/19 05:32 Creatinine 0.8 mg/dL (0.7-1.2) 04/14/19 05:32 Estimated GFR > 60 ml/min 04/14/19 05:32 BUN/Creatinine Ratio 38 % 04/14/19 05:32 Glucose 210 mg/dL (65-100) H 04/14/19 05:32 POC Glucose 288 (70-105) H 04/14/19 11:30 Calcium 9.2 mg/dL (8.4-10.2) 04/14/19 05:32 Magnesium 2.40 mg/dL (1.7-2.3) H 04/12/19 20:51 Total Bilirubin 0.20 mg/dL (0.1-1.2) 04/12/19 12:34 AST 10 units/L (5-40) 04/12/19 12:34 ALT 8 units/L (7-56) 04/12/19 12:34 Alkaline Phosphatase 155 units/L (35-129) H 04/12/19 12:34 Troponin T < 0.010 ng/mL (0.00-0.029) 04/12/19 12:34 NT-Pro-B Natriuret Pep 989.6 pg/mL (0-900) H 04/12/19 12:34 Total Protein 7.7 g/dL (6.3-8.2) 04/12/19 12:34 Albumin 3.8 g/dL (3.9-5) L 04/12/19 12:34 Albumin/Globulin Ratio 1.0 % 04/12/19 12:34 TSH 0.417 mlU/mL (0.270-4.200) 04/12/19 20:51 Free T4 1.16 ng/dL (0.76-1.46) 04/12/19 20:51 Active Medications - Current Medications Current Medications: Generic Name Dose Route Start Last Admin Trade Name Freq PRN Reason Stop Dose Admin Acetaminophen 650 mg 04/12/19 15:07 Tylenol PO Q4H PRN Pain MILD(1-3)/Fever >100.5/ALAS Albuterol 2.5 mg 04/12/19 15:07 04/13/19 21:25 Proventil IH 2.5 mg Q4HRT PRN Administration Shortness Of Breath Amlodipine Besylate 10 mg 04/13/19 12:00 04/14/19 09:22 Amlodipine PO 10 mg QDAY ANN MARIE Administration Aspirin 81 mg 04/13/19 10:00 04/14/19 09:22 Baby Aspirin PO 81 mg QDAY ANN MARIE Administration Atorvastatin Calcium 40 mg 04/12/19 22:00 04/13/19 23:14 Lipitor PO 40 mg QHS ANN MARIE Administration Clonidine HCl 0.2 mg 04/13/19 22:00 04/14/19 09:22 Catapres PO 0.2 mg BID ANN MARIE Administration Clopidogrel Bisulfate 75 mg 04/13/19 10:00 04/14/19 09:21 Plavix PO 75 mg QDAY ANN MARIE Administration Enoxaparin Sodium 40 mg 04/12/19 22:00 04/13/19 23:16 Enoxaparin SUB-Q 40 mg QDAY@2200 ANN MARIE Administration Furosemide 40 mg 04/13/19 11:22 04/14/19 06:03 Lasix IV 40 mg 0600,1800 ANN MARIE Administration Hydralazine HCl 10 mg 04/12/19 20:22 04/14/19 06:03 Apresoline IV 10 mg Q6H PRN Administration Hypertension Insulin Glargine 10 units 04/13/19 22:00 04/13/19 23:17 Lantus SUB-Q 10 units QHS ANN MARIE Administration Insulin Human Lispro 0 unit 04/13/19 00:01 04/14/19 12:30 Humalog SUB-Q 4 unit ACHS ANN MARIE Administration Protocol Isosorbide Mononitrate 60 mg 04/14/19 10:00 04/14/19 09:22 Imdur PO 60 mg QDAY ANN MARIE Administration Lorazepam 1 mg 04/12/19 23:57 04/14/19 09:22 Ativan IV 1 mg Q3H PRN Administration Anxiety Losartan Potassium 100 mg 04/13/19 10:00 04/14/19 09:21 Cozaar PO 100 mg QDAY ANN MARIE Administration Methylprednisolone Sodium Succinate 60 mg 04/13/19 14:00 04/14/19 14:44 Solu-Medrol IV 60 mg Q8HR ANN MARIE Administration Metoprolol Tartrate 25 mg 04/14/19 13:00 04/14/19 14:46 Metoprolol PO 25 mg BID ANN MARIE Administration Nicotine 21 mg 04/13/19 10:00 04/14/19 09:20 Habitrol TD 21 mg DAILY ANN MARIE Administration Ondansetron HCl 4 mg 04/12/19 15:07 Zofran IV Q8H PRN Nausea And Vomiting Sodium Chloride 10 ml 04/12/19 22:00 04/14/19 09:21 Sodium Chloride Flush Syringe 10 Ml IV 10 ml BID ANN MARIE Administration Sodium Chloride 10 ml 04/12/19 15:07 Sodium Chloride Flush Syringe 10 Ml IV PRN PRN LINE FLUSH
--- NOTE | 2019-04-14 18:10 | Progress Note ---
Assessment and Plan IPatient alert, awake . Still complaining shortness of breath and wheezing.Patient is on 5 litres O2. O2 saturation 100%.Patient is on I/V solumedrol and aerosolized bronchodilators. Patients blood sugar recorded 500. Patient is on Insulin coverage. - Patient Problems (1) Acute on chronic respiratory failure Current Visit: Yes Status: Acute Plan to address problem: O2 5 litres O2. BIPAP during night time and Prn for shortness of breath during day time. Albuterol/atrovent aerosol treatments q 6 hours. Continue I/V solumedrol. Continue S/C Lovenox. Recommend GI prophylaxis. (2) COPD exacerbation Current Visit: Yes Status: Acute Plan to address problem: O2 5 litres O2. BIPAP during night time and Prn for shortness of breath during day time. Albuterol/atrovent aerosol treatments q 6 hours. Continue I/V solumedrol. Continue S/C Lovenox. Recommend GI prophylaxis. ABGs on O2. (3) Morbid obesity Current Visit: Yes Status: Chronic Plan to address problem: Recommend loose weight. Diet and exercise. Recommend to consult senior electronics technician for weight reduction diet. (4) Obesity hypoventilation syndrome Current Visit: Yes Status: Acute Plan to address problem: ABGs on O2. BIPAP during night time and Prn for shortness of breath during day time. (5) Obstructive sleep apnea Current Visit: Yes Status: Chronic Plan to address problem: BIPAP during night time and Prn for shortness of breath during day time. (6) Accelerated hypertension Current Visit: Yes Status: Acute Plan to address problem: Management as per primary care. (7) Nicotine dependence Current Visit: Yes Status: Acute Qualifiers: Substance use status: in withdrawal Plan to address problem: Counselled to stop smoking. Subjective Date of service: 04/14/19 Principal diagnosis: HF; COPD exac Interval history: Patient alert, awake . Still complaining shortness of breath and wheezing.Patient is on 5 litres O2. O2 saturation 100%.Patient is on I/V solume drol and aerosolized bronchodilators. Patients blood sugar recorded 500. Patient is on Insulin coverage. Objective Vital Signs - 12hr 04/14/19 04/14/19 04/14/19 06:33 07:59 11:41 Temperature 98.0 F Pulse Rate 95 H 82 Respiratory 20 Rate Blood Pressure 180/102 165/87 O2 Sat by Pulse 99 98 94 Oximetry 04/14/19 17:30 Temperature 98.0 F Pulse Rate 81 Respiratory 18 Rate Blood Pressure 139/95 O2 Sat by Pulse 100 Oximetry Constitutional: no acute distress, alert Eyes: non-icteric Neck: supple, no JVD Ascultation: Bilateral: wheezes Cardiovascular: regular rate and rhythm Gastrointestinal: normoactive bowel sounds, soft, non-tender Integumentary: normal Extremities: no cyanosis, no edema Neurologic: normal mental status, non-focal exam, pupils equal and round, CN II- XII normal Psychiatric: mood appropriate CBC and BMP: 04/13/19 08:38 04/14/19 16:48 Abnormal lab findings: Abnormal Labs 04/12/19 04/12/19 04/12/19 12:34 12:34 12:34 Hgb 9.2 L MCV 64 L MCH 19 L RDW 22.1 H Lymph % (Auto) Eos % (Auto) 9.3 H Lymph # Eos # 0.6 H Seg Neutrophils % Carbon Dioxide 20 L BUN 19 H Creatinine 0.6 L Glucose 103 H POC Glucose Magnesium Alkaline Phosphatase 155 H NT-Pro-B Natriuret Pep 989.6 H Albumin 3.8 L 04/12/19 04/12/19 04/13/19 20:51 21:48 07:37 Hgb MCV MCH RDW Lymph % (Auto) Eos % (Auto) Lymph # Eos # Seg Neutrophils % Carbon Dioxide BUN Creatinine Glucose POC Glucose 180 H 153 H Magnesium 2.40 H Alkaline Phosphatase NT-Pro-B Natriuret Pep Albumin 04/13/19 04/13/19 04/13/19 08:38 08:38 12:23 Hgb 9.3 L MCV 64 L MCH 19 L RDW 22.1 H Lymph % (Auto) 8.8 L Eos % (Auto) Lymph # 0.7 L Eos # Seg Neutrophils % 85.5 H Carbon Dioxide 19 L BUN 27 H Creatinine Glucose 149 H POC Glucose 412 H Magnesium Alkaline Phosphatase NT-Pro-B Natriuret Pep Albumin 04/13/19 04/13/19 04/14/19 17:01 21:31 05:32 Hgb MCV MCH RDW Lymph % (Auto) Eos % (Auto) Lymph # Eos # Seg Neutrophils % Carbon Dioxide BUN 30 H Creatinine Glucose 210 H POC Glucose 131 H 274 H Magnesium Alkaline Phosphatase NT-Pro-B Natriuret Pep Albumin 04/14/19 04/14/19 04/14/19 07:46 11:30 16:09 Hgb MCV MCH RDW Lymph % (Auto) Eos % (Auto) Lymph # Eos # Seg Neutrophils % Carbon Dioxide BUN Creatinine Glucose POC Glucose 240 H 288 H 500 H Magnesium Alkaline Phosphatase NT-Pro-B Natriuret Pep Albumin 04/14/19 16:48 Hgb MCV MCH RDW Lymph % (Auto) Eos % (Auto) Lymph # Eos # Seg Neutrophils % Carbon Dioxide BUN Creatinine Glucose 388 H POC Glucose Magnesium Alkaline Phosphatase NT-Pro-B Natriuret Pep Albumin
[2019-04-14] MEDS: ENOXAPARIN 40 MG/0.4 ML INJ SUB-Q SCH (22:00)
[2019-04-14] MEDS: INSULIN GLARGINE 100 UNITS/ML SUB-Q SCH (22:01)
[2019-04-15] MEDS: methylPREDNISolone Sod Succinate 125 MG/2 ML INJ IV SCH ×3 (05:30→21:44)
[2019-04-15] MEDS: FUROSEMIDE 40 MG/4 ML INJ IV SCH ×2 (05:30→18:21)
[2019-04-15] MEDS: LORazepam 2 MG/ML VIAL IV PRN ×3 (05:41→21:55)
[2019-04-15] MEDS: amLODIPine 10 MG TAB PO SCH (10:40)
[2019-04-15] MEDS: ASPIRIN 81 MG TAB CHEW PO SCH (10:41)
[2019-04-15] MEDS: cloNIDine 0.2 MG TAB PO SCH ×2 (10:41→21:44)
[2019-04-15] MEDS: METOPROLOL TARTRATE 25 MG TAB PO SCH (10:41)
[2019-04-15] MEDS: LOSARTAN 50 MG TAB PO SCH (10:42)
[2019-04-15] MEDS: NICOTINE 21 MG/24 HR PATCH TD SCH (10:42)
[2019-04-15] MEDS: CLOPIDOGREL 75 MG TAB PO SCH (10:43)
[2019-04-15] MEDS: INSULIN LISPRO 100 UNIT/ML SUB-Q SCH ×4 (10:47→22:50)
[2019-04-15] MEDS ORDERED: METOPROLOL TARTRATE 25 MG TAB PO SCH (11:01)
--- NOTE | 2019-04-15 11:04 | Progress Note ---
Assessment and Plan Cont IV diuresis. Echo reviewed - EF 35-40%, mild LVH, restrictive diastolic filling, moderate pulm HTN. Echo done 06/2018 showed EF 45-50%, mod LVH. Optimize BPs - increase lopressor, consider addition of hydralazine. Pulmonary recs appreciated. The patient has been seen in conjunction with Dr. Joselito Brian who agrees with the assessment and plan of care. - Patient Problems (1) Acute HFrEF (heart failure with reduced ejection fraction) Current Visit: Yes Status: Acute (2) Cardiomyopathy Current Visit: Yes Status: Chronic (3) COPD exacerbation Current Visit: Yes Status: Acute (4) Acute on chronic respiratory failure Current Visit: Yes Status: Acute (5) Accelerated hypertension Current Visit: Yes Status: Acute (6) CAD (coronary artery disease) Current Visit: Yes Status: Chronic Qualifiers: Coronary Disease-Associated Artery/Lesion type: [place] artery [place] vs. transplanted heart: [place] heart Associated angina: with stable angina Qualified Code(s): I25.118 - Atherosclerotic heart disease of [place] coronary artery with other forms of angina pectoris (7) Stented coronary artery Current Visit: Yes Status: Chronic (8) Diabetes Current Visit: Yes Status: Chronic (9) Pleuritic chest pain Current Visit: Yes Status: Acute (10) Hyperlipidemia Current Visit: Yes Status: Chronic Qualifiers: Hyperlipidemia type: mixed hyperlipidemia Qualified Code(s): E78.2 - Mixed hyperlipidemia (11) Morbid obesity Current Visit: Yes Status: Chronic (12) Obstructive sleep apnea Current Visit: Yes Status: Chronic (13) Tobacco abuse Current Visit: Yes Status: Chronic (14) Medical non-compliance Current Visit: Yes Status: Chronic Subjective Date of service: 04/15/19 Principal diagnosis: HF; COPD exac Interval history: pt resting in bed, feeling better today. in SR on tele. Objective Last Vital Signs Temp 98.1 F 04/15/19 04:07 Pulse 82 04/15/19 10:41 Resp 20 04/15/19 04:07 BP 193/90 04/15/19 10:42 Pulse Ox 98 04/15/19 10:46 - Physical Examination General: No Apparent Distress HEENT: Positive: PERRL, Normocephaly, Mucus Membranes Moist Neck: Positive: neck supple, trachea midline Cardiac: Positive: Reg Rate and Rhythm, S1/S2 Lungs: Positive: Decreased Breath Sounds, Wheezes, Oxygen Neuro: Positive: Grossly Intact Abdomen: Negative: Tender Skin: Negative: Rash Musculoskeletal: No Pain Extremities: Present: +1 Edema (BLE) - Labs and Meds Comprehensive Metabolic Panel 04/14/19 Range/Units 16:48 Glucose 388 H (65-100) mg/dL - Imaging and Cardiology EKG: report reviewed, image reviewed Echo: report reviewed (06/2018 showed EF 45-50%, mod LVH. ) Cardiac cath: report reviewed ( 06/2018 with PCI of ramus with DIANELYS, left main patent, LAD patent, RCA moderate to severe tortuosity with mid stent patent, circ patent, OM1 50% with ramus 100% with successful PCI, acute diastolic dysfunction. ) - EKG Sinus rhythms and dysrhythmias: sinus rhythm
[2019-04-15] MEDS ORDERED: METOPROLOL TARTRATE 25 MG TAB PO ONE (12:00)
--- NOTE | 2019-04-15 14:00 | Progress Note ---
Assessment and Plan Patient alert, awake. Patient says shortness of breath is somewhat better today. Patient is on 2 litres O2. O2 saturation 92%. Patient is on I/V solumedrol and aerosolized bronchodilators. Patients blood sugar recorded 280 today. Patient is on Insulin coverage. Patient has blood gas on room air. ABG POC ABG pH 7.409 (7.35-7.45) 04/15/19 08:55 POC ABG pCO2 41.4 (35-45) 04/15/19 08:55 POC ABG pO2 68 (80-105) L 04/15/19 08:55 POC ABG HCO3 26.2 (22-26 mml/L) 04/15/19 08:55 POC ABG Total CO2 27 (23-27mmol/L) 04/15/19 08:55 POC ABG O2 Sat 94 04/15/19 08:55 - Patient Problems (1) Acute on chronic respiratory failure Current Visit: Yes Status: Acute Plan to address problem: O2 2 litres O2. BIPAP during night time and Prn for shortness of breath during day time. Albuterol/atrovent aerosol treatments q 6 hours. Continue I/V solumedrol. Continue S/C Lovenox. Recommend GI prophylaxis. (2) COPD exacerbation Current Visit: Yes Status: Acute Plan to address problem: O2 2 litres O2. BIPAP during night time and Prn for shortness of breath during day time. Albuterol/atrovent aerosol treatments q 6 hours. Continue I/V solumedrol. Continue S/C Lovenox. Recommend GI prophylaxis. . (3) Morbid obesity Current Visit: Yes Status: Chronic Plan to address problem: Recommend loose weight. Diet and exercise. Recommend to consult salvage inspector for weight reduction diet. (4) Obesity hypoventilation syndrome Current Visit: Yes Status: Acute Plan to address problem: BIPAP during night time and Prn for shortness of breath during day time. (5) Obstructive sleep apnea Current Visit: Yes Status: Chronic Plan to address problem: BIPAP during night time and Prn for shortness of breath during day time. (6) Accelerated hypertension Current Visit: Yes Status: Acute Plan to address problem: Management as per primary care. (7) Nicotine dependence Current Visit: Yes Status: Acute Qualifiers: Substance use status: in withdrawal Plan to address problem: Counselled to stop smoking. Subjective Date of service: 04/15/19 Principal diagnosis: HF; COPD exac Interval history: Patient alert, awake. Patient says shortness of breath is somewhat better today. Patient is on 2 litres O2. O2 saturation 92%. Patient is on I/V solumedrol and aerosolized bronchodilators. Patients blood sugar recorded 280 today. Patient is on Insulin coverage. Patient has blood gas on room air. ABG POC ABG pH 7.409 (7.35-7.45) 04/15/19 08:55 POC ABG pCO2 41.4 (35-45) 04/15/19 08:55 POC ABG pO2 68 (80-105) L 04/15/19 08:55 POC ABG HCO3 26.2 (22-26 mml/L) 04/15/19 08:55 POC ABG Total CO2 27 (23-27mmol/L) 04/15/19 08:55 POC ABG O2 Sat 94 04/15/19 08:55 Objective Vital Signs - 12hr 04/15/19 04/15/19 04/15/19 04:07 10:20 10:40 Temperature 98.1 F Pulse Rate 88 Respiratory 20 Rate Blood Pressure 197/107 193/90 193/90 O2 Sat by Pulse 97 Oximetry 04/15/19 04/15/19 04/15/19 10:41 10:42 10:46 Temperature Pulse Rate 82 Respiratory Rate Blood Pressure 193/90 193/90 O2 Sat by Pulse 98 Oximetry 04/15/19 04/15/19 12:13 12:44 Temperature 98.0 F Pulse Rate 75 Respiratory 19 Rate Blood Pressure 169/93 169/93 O2 Sat by Pulse 96 Oximetry Constitutional: no acute distress, alert Eyes: non-icteric Neck: supple, no JVD Ascultation: Bilateral: wheezes Cardiovascular: regular rate and rhythm Gastrointestinal: normoactive bowel sounds, soft, non-tender Integumentary: normal Extremities: no cyanosis, no edema Neurologic: normal mental status, non-focal exam, pupils equal and round, CN II- XII normal Psychiatric: mood appropriate CBC and BMP: 04/13/19 08:38 04/14/19 16:48 ABG, PT/INR, D-dimer: ABG POC ABG pH 7.409 (7.35-7.45) 04/15/19 08:55 POC ABG pCO2 41.4 (35-45) 04/15/19 08:55 POC ABG pO2 68 (80-105) L 04/15/19 08:55 POC ABG HCO3 26.2 (22-26 mml/L) 04/15/19 08:55 POC ABG Total CO2 27 (23-27mmol/L) 04/15/19 08:55 POC ABG O2 Sat 94 04/15/19 08:55 Abnormal lab findings: Abnormal Labs 04/12/19 04/12/19 04/12/19 12:34 12:34 12:34 Hgb 9.2 L MCV 64 L MCH 19 L RDW 22.1 H Lymph % (Auto) Eos % (Auto) 9.3 H Lymph # Eos # 0.6 H Seg Neutrophils % POC ABG pO2 Carbon Dioxide 20 L BUN 19 H Creatinine 0.6 L Glucose 103 H POC Glucose Magnesium Alkaline Phosphatase 155 H NT-Pro-B Natriuret Pep 989.6 H Albumin 3.8 L 04/12/19 04/12/19 04/13/19 20:51 21:48 07:37 Hgb MCV MCH RDW Lymph % (Auto) Eos % (Auto) Lymph # Eos # Seg Neutrophils % POC ABG pO2 Carbon Dioxide BUN Creatinine Glucose POC Glucose 180 H 153 H Magnesium 2.40 H Alkaline Phosphatase NT-Pro-B Natriuret Pep Albumin 04/13/19 04/13/19 04/13/19 08:38 08:38 12:23 Hgb 9.3 L MCV 64 L MCH 19 L RDW 22.1 H Lymph % (Auto) 8.8 L Eos % (Auto) Lymph # 0.7 L Eos # Seg Neutrophils % 85.5 H POC ABG pO2 Carbon Dioxide 19 L BUN 27 H Creatinine Glucose 149 H POC Glucose 412 H Magnesium Alkaline Phosphatase NT-Pro-B Natriuret Pep Albumin 04/13/19 04/13/19 04/14/19 17:01 21:31 05:32 Hgb MCV MCH RDW Lymph % (Auto) Eos % (Auto) Lymph # Eos # Seg Neutrophils % POC ABG pO2 Carbon Dioxide BUN 30 H Creatinine Glucose 210 H POC Glucose 131 H 274 H Magnesium Alkaline Phosphatase NT-Pro-B Natriuret Pep Albumin 04/14/19 04/14/1904/14/19 07:46 11:30 16:09 Hgb MCV MCH RDW Lymph % (Auto) Eos % (Auto) Lymph # Eos # Seg Neutrophils % POC ABG pO2 Carbon Dioxide BUN Creatinine Glucose POC Glucose 240 H 288 H 500 H Magnesium Alkaline Phosphatase NT-Pro-B Natriuret Pep Albumin 04/14/19 04/14/19 04/15/19 16:48 21:24 07:29 Hgb MCV MCH RDW Lymph % (Auto) Eos % (Auto) Lymph # Eos # Seg Neutrophils % POC ABG pO2 Carbon Dioxide BUN Creatinine Glucose 388 H POC Glucose 386 H 187 H Magnesium Alkaline Phosphatase NT-Pro-B Natriuret Pep Albumin 04/15/19 04/15/19 08:55 13:02 Hgb MCV MCH RDW Lymph % (Auto) Eos % (Auto) Lymph # Eos # Seg Neutrophils % POC ABG pO2 68 L Carbon Dioxide BUN Creatinine Glucose POC Glucose 218 H Magnesium Alkaline Phosphatase NT-Pro-B Natriuret Pep Albumin
--- NOTE | 2019-04-15 18:18 | Progress Note ---
Assessment and Plan Assessment and plan: Acute HFrEF. Cont IV diuresis per Cardiology. ECHO revealed - EF 35-40%, mild LVH, restrictive diastolic filling, moderate pulm HTN. Echo done 06/2018 showed EF 45-50%, mod LVH. Cardiology following Acute COPD exacerbation. Cont steroids, bronchodilators/nebs. Accel HTN. Cont home regimen and adjust as needed CAD. hx of stent. Cont per Cards DMII. Accuchecks and SSRI HLD. Cont statin Morbid obesity. Pt will be couseled on weight loss and exercise Tobacco abuse. Pt will be couseled on cessation History Interval history: Pt still c/o SOB Hospitalist Physical - Constitutional Vitals: Temp Pulse Resp BP Pulse Ox 98.8 F 84 18 159/82 92 04/15/19 17:41 04/15/19 17:41 04/15/19 17:41 04/15/19 17:41 04/15/19 17:41 General appearance: Present: no acute distress - EENT Eyes: Present: PERRL, EOM intact ENT: hearing intact, clear oral mucosa, dentition normal - Neck Neck: Present: supple, normal ROM - Respiratory Respiratory effort: normal Respiratory: bilateral: CTA - Cardiovascular Rhythm: regular Heart Sounds: Present: S1 & S2. Absent: gallop, rub - Extremities Extremities: no ischemia, No edema, Full ROM - Abdominal General gastrointestinal: soft, non-tender, non-distended, normal bowel sounds - Integumentary Integumentary: Present: clear, warm, dry - Neurologic Neurologic: CNII-XII intact, moves all extremities Results - Labs CBC & Chem 7: 04/13/19 08:38 04/14/19 16:48 Labs: Laboratory Last Values WBC 7.4 K/mm3 (4.5-11.0) 04/13/19 08:38 RBC 4.82 M/mm3 (3.65-5.03) 04/13/19 08:38 Hgb 9.3 gm/dl (10.1-14.3) L 04/13/19 08:38 Hct 31.0 % (30.3-42.9) 04/13/19 08:38 MCV 64 fl (79-97) L 04/13/19 08:38 MCH 19 pg (28-32) L 04/13/19 08:38 MCHC 30 % (30-34) 04/13/19 08:38 RDW 22.1 % (13.2-15.2) H 04/13/19 08:38 Plt Count 337 K/mm3 (140-440) 04/13/19 08:38 Lymph % (Auto) 8.8 % (13.4-35.0) L 04/13/19 08:38 [place] % (Auto) 5.3 % (0.0-7.3) 04/13/19 08:38 Eos % (Auto) 0.0 % (0.0-4.3) 04/13/19 08:38 Baso % (Auto) 0.4 % (0.0-1.8) 04/13/19 08:38 Lymph # 0.7 K/mm3 (1.2-5.4) L 04/13/19 08:38 [place] # 0.4 K/mm3 (0.0-0.8) 04/13/19 08:38 Eos # 0.0 K/mm3 (0.0-0.4) 04/13/19 08:38 Baso # 0.0 K/mm3 (0.0-0.1) 04/13/19 08:38 Seg Neutrophils % 85.5 % (40.0-70.0) H 04/13/19 08:38 Seg Neutrophils # 6.3 K/mm3 (1.8-7.7) 04/13/19 08:38 POC ABG pH 7.409 (7.35-7.45) 04/15/19 08:55 POC ABG pCO2 41.4 (35-45) 04/15/19 08:55 POC ABG pO2 68 (80-105) L 04/15/19 08:55 POC ABG HCO3 26.2 (22-26 mml/L) 04/15/19 08:55 POC ABG Total CO2 27 (23-27mmol/L) 04/15/19 08:55 POC ABG O2 Sat 94 04/15/19 08:55 POC ABG Base Excess 2 ((-2) - (+3)mmol/L) 04/15/19 08:55 FiO2 21 % 04/15/19 08:55 Sodium 137 mmol/L (137-145) 04/14/19 05:32 Potassium 5.0 mmol/L (3.6-5.0) 04/14/19 05:32 Chloride 103.0 mmol/L (98-107) 04/14/19 05:32 Carbon Dioxide 24 mmol/L (22-30) 04/14/19 05:32 Anion Gap 15 mmol/L 04/14/19 05:32 BUN 30 mg/dL (7-17) H 04/14/19 05:32 Creatinine 0.8 mg/dL (0.7-1.2) 04/14/19 05:32 Estimated GFR > 60 ml/min 04/14/19 05:32 BUN/Creatinine Ratio 38 % 04/14/19 05:32 Glucose 388 mg/dL (65-100) H 04/14/19 16:48 POC Glucose 218 (70-105) H 04/15/19 13:02 Calcium 9.2 mg/dL (8.4-10.2) 04/14/19 05:32 Magnesium 2.40 mg/dL (1.7-2.3) H 04/12/19 20:51 Total Bilirubin 0.20 mg/dL (0.1-1.2) 04/12/19 12:34 AST 10 units/L (5-40) 04/12/19 12:34 ALT 8 units/L (7-56) 04/12/19 12:34 Alkaline Phosphatase 155 units/L (35-129) H 04/12/19 12:34 Troponin T < 0.010 ng/mL (0.00-0.029) 04/12/19 12:34 NT-Pro-B Natriuret Pep 989.6 pg/mL (0-900) H 04/12/19 12:34 Total Protein 7.7 g/dL (6.3-8.2) 04/12/19 12:34 Albumin 3.8 g/dL (3.9-5) L 04/12/19 12:34 Albumin/Globulin Ratio 1.0 % 04/12/19 12:34 TSH 0.417 mlU/mL (0.270-4.200) 04/12/19 20:51 Free T4 1.16 ng/dL (0.76-1.46) 04/12/19 20:51 Active Medications - Current Medications Current Medications: Generic Name Dose Route Start Last Admin Trade Name Freq PRN Reason Stop Dose Admin Acetaminophen 650 mg 04/12/19 15:07 Tylenol PO Q4H PRN Pain MILD(1-3)/Fever >100.5/ALAS Albuterol 2.5 mg 04/12/19 15:07 04/13/19 21:25 Proventil IH 2.5 mg Q4HRT PRN Administration Shortness Of Breath Amlodipine Besylate 10 mg 04/13/19 12:00 04/15/19 10:40 Amlodipine PO 10 mg QDAY ANN MARIE Administration Aspirin 81 mg 04/13/19 10:00 04/15/19 10:41 Baby Aspirin PO 81 mg QDAY ANN MARIE Administration Atorvastatin Calcium 40 mg 04/12/19 22:00 04/14/19 22:00 Lipitor PO 40 mg QHS ANN MARIE Administration Clonidine HCl 0.2 mg 04/13/19 22:00 04/15/19 10:41 Catapres PO 0.2 mg BID ANN MARIE Administration Clopidogrel Bisulfate 75 mg 04/13/19 10:00 04/15/19 10:43 Plavix PO 75 mg QDAY ANN MARIE Administration Enoxaparin Sodium 40 mg 04/12/19 22:00 04/14/19 22:00 Enoxaparin SUB-Q 40 mg QDAY@2200 ANN MARIE Administration Furosemide 40 mg 04/13/19 11:22 04/15/19 05:30 Lasix IV 40 mg 0600,1800 ANN MARIE Administration Hydralazine HCl 10 mg 04/12/19 20:22 04/14/19 06:03 Apresoline IV 10 mg Q6H PRN Administration Hypertension Insulin Glargine 10 units 04/13/19 22:00 04/14/19 22:01 Lantus SUB-Q 10 units QHS ANN MARIE Administration Insulin Human Lispro 0 unit 04/13/19 00:01 04/15/19 14:11 Humalog SUB-Q 3 unit ACHS ANN MARIE Administration Protocol Isosorbide Mononitrate 60 mg 04/14/19 10:00 04/15/19 10:41 Imdur PO 60 mg QDAY ANN MARIE Administration Lorazepam 1 mg 04/12/19 23:57 04/15/19 14:06 Ativan IV 1 mg Q3H PRN Administration Anxiety Losartan Potassium 100 mg 04/13/19 10:00 04/15/19 10:42 Cozaar PO 100 mg QDAY ANN MARIE Administration Methylprednisolone Sodium Succinate 60 mg 04/13/19 14:00 04/15/19 14:02 Solu-Medrol IV 60 mg Q8HR ANN MARIE Administration Metoprolol Tartrate 50 mg 04/15/19 22:00 Metoprolol PO BID ANN MARIE Nicotine 21 mg 04/13/19 10:00 04/15/19 10:42 Habitrol TD 21 mg DAILY ANN MARIE Administration Ondansetron HCl 4 mg 04/12/19 15:07 Zofran IV Q8H PRN Nausea And Vomiting Sodium Chloride 10 ml 04/12/19 22:00 04/15/19 10:48 Sodium Chloride Flush Syringe 10 Ml IV Not Given BID ANN MARIE Sodium Chloride 10 ml 04/12/19 15:07 Sodium Chloride Flush Syringe 10 Ml IV PRN PRN LINE FLUSH
[2019-04-15] MEDS: METOPROLOL TARTRATE 50 MG TAB PO SCH (21:43)
[2019-04-15] MEDS: ENOXAPARIN 40 MG/0.4 ML INJ SUB-Q SCH (21:45)
[2019-04-15] MEDS: INSULIN GLARGINE 100 UNITS/ML SUB-Q SCH (22:50)
[2019-04-16 05:55] LABS: BUN/Creatinine Ratio 36; Blood Urea Nitrogen 36 mg/dL (7-17); Calcium 9.3 mg/dL (8.4-10.2); Hemolysis Index 38
[2019-04-16] MEDS: methylPREDNISolone Sod Succinate 125 MG/2 ML INJ IV SCH ×3 (06:15→22:37)
[2019-04-16] MEDS: FUROSEMIDE 40 MG/4 ML INJ IV SCH ×2 (06:17→17:36)
[2019-04-16] MEDS: INSULIN LISPRO 100 UNIT/ML SUB-Q SCH ×4 (09:02→22:34)
--- NOTE | 2019-04-16 10:02 | Progress Note ---
Assessment and Plan Pt appears to be clinically improving. Cont present cardiac management. Encourage increased activity and ambulation - will consult physical therapy. The patient has been seen in conjunction with Dr. Joselito Brian who agrees with the assessment and plan of care. - Patient Problems (1) Acute HFrEF (heart failure with reduced ejection fraction) Current Visit: Yes Status: Acute (2) Cardiomyopathy Current Visit: Yes Status: Chronic (3) COPD exacerbation Current Visit: Yes Status: Acute (4) Acute on chronic respiratory failure Current Visit: Yes Status: Acute (5) Accelerated hypertension Current Visit: Yes Status: Acute (6) CAD (coronary artery disease) Current Visit: Yes Status: Chronic Qualifiers: Coronary Disease-Associated Artery/Lesion type: [place] artery [place] vs. transplanted heart: [place] heart Associated angina: with stable angina Qualified Code(s): I25.118 - Atherosclerotic heart disease of [place] coronary artery with other forms of angina pectoris (7) Stented coronary artery Current Visit: Yes Status: Chronic (8) Diabetes Current Visit: Yes Status: Chronic (9) Pleuritic chest pain Current Visit: Yes Status: Acute (10) Hyperlipidemia Current Visit: Yes Status: Chronic Qualifiers: Hyperlipidemia type: mixed hyperlipidemia Qualified Code(s): E78.2 - Mixed hyperlipidemia (11) Morbid obesity Current Visit: Yes Status: Chronic (12) Obstructive sleep apnea Current Visit: Yes Status: Chronic (13) Tobacco abuse Current Visit: Yes Status: Chronic (14) Medical non-compliance Current Visit: Yes Status: Chronic Subjective Date of service: 04/16/19 Principal diagnosis: HF; COPD exac Interval history: pt resting in bed, feeling better today. in SR on tele. has not been OOB. Objective Last Vital Signs Temp 98.9 F 04/16/19 05:34 Pulse 70 04/16/19 05:34 Resp 20 04/16/19 05:34 BP 185/88 04/16/19 05:34 Pulse Ox 99 04/16/19 05:34 - Physical Examination General: No Apparent Distress HEENT: Positive: PERRL, Normocephaly, Mucus Membranes Moist Neck: Positive: neck supple, trachea midline Cardiac: Positive: Reg Rate and Rhythm, S1/S2 Lungs: Positive: Decreased Breath Sounds Neuro: Positive: Grossly Intact Abdomen: Negative: Tender Skin: Negative: Rash Musculoskeletal: No Pain Extremities: Present: +1 Edema (BLE) - Labs and Meds Comprehensive Metabolic Panel 04/16/19 Range/Units 04:46 Sodium 137 (137-145) mmol/L Potassium 4.9 (3.6-5.0) mmol/L Chloride 97.6 L (98-107) mmol/L Carbon Dioxide 26 (22-30) mmol/L BUN 36 H (7-17) mg/dL Creatinine 1.0 (0.7-1.2) mg/dL Glucose 258 H (65-100) mg/dL Calcium 9.3 (8.4-10.2) mg/dL - Imaging and Cardiology EKG: report reviewed, image reviewed Echo: report reviewed (EF 35-40%, mild LVH, restrictive diastolic filling, moderate pulm HTN. Echo done 06/2018 showed EF 45-50%, mod LVH. ) Cardiac cath: report reviewed ( 06/2018 with PCI of ramus with DIANELYS, left main patent, LAD patent, RCA moderate to severe tortuosity with mid stent patent, circ patent, OM1 50% with ramus 100% with successful PCI, acute diastolic dysfunction. ) - Telemetry EKG Rhythm: Sinus Rhythm - EKG Sinus rhythms and dysrhythmias: sinus rhythm
--- NOTE | 2019-04-16 11:28 | Progress Note ---
Assessment and Plan Acute on chronic hypoxic respiratory failure AE COPD Tobacco use disorder-[place] dependence Acute HFrEF - ECHO revealed - EF 35-40%, mild LVH, restrictive diastolic filling, moderate pulm HTN. Echo done 06/2018 showed EF 45-50%, mod LVH. Morbid obesity Accel HTN CAD Type 2 DM -Continue supplemental oxygen to keep O2 sats>90% -Nocturnal BIPAP and prn -Antibiotics to complete course for severe AE-COPD -Bronchodilators -Continue Montelukast -Start steroid taper in the next 48 hours -Accucheck with glycemic control -VTE prophylaxis -Smoking cessation counselling done at the bedside for 7 minutes. States she is ready to quit -Nicotine withdrawal precautions -Cardioprotective measures, heart failure measures and education -Gentle diuresis while monitoring renal function, hemodynamics and electrolyte profile -Increase activity -Weight loss and life style modifications -CXR and ABG prn -Influenza and pneumonia vaccination per protocol -Blood pressure control Subjective Date of service: 04/16/19 Principal diagnosis: HF; COPD exac Interval history: Patient is seen today for: Acute Hypoxemic and Hypercapnic Respiratory failure; AE-COPD; ADAN-OHS; Tobacco use disorder-nicotine dependence; Morbid obesity Seen and examined at bedside; 24hour events reviewed; nursing and respiratory care staff consulted; no adverse overnight events reported to me; resting in bed; on going shortness of breath with minimal exertion; no nausea or vomiting; no fevers; no diarrhea; cough is improving Vitals, labs, medications, chart reviewed Objective Vital Signs - 12hr 04/16/19 05:34 Temperature 98.9 F Pulse Rate 70 Respiratory 20 Rate Blood Pressure 185/88 O2 Sat by Pulse 99 Oximetry Constitutional: no acute distress, alert Eyes: non-icteric Neck: supple, no JVD Effort: mildly labored Ascultation: Bilateral: wheezes Cardiovascular: regular rate and rhythm, other (S1,S2) Gastrointestinal: normoactive bowel sounds, soft, non-tender Integumentary: normal Extremities: no cyanosis, no edema Neurologic: normal mental status, non-focal exam, pupils equal and round, CN II- XII normal, motor strength normal and Psychiatric: mood appropriate, affect normal CBC and BMP: 04/13/19 08:38 04/18/19 07:16 ABG, PT/INR, D-dimer: ABG POC ABG pH 7.409 (7.35-7.45) 12/04/19 08:55 POC ABG pCO2 41.4 (35-45) 04/15/19 08:55 POC ABG pO2 68 (80-105) L 04/15/19 08:55 POC ABG HCO3 26.2 (22-26 mml/L) 04/15/19 08:55 POC ABG Total CO2 27 (23-27mmol/L) 04/15/19 08:55 POC ABG O2 Sat 94 04/15/19 08:55 Abnormal lab findings: Abnormal Labs 04/12/19 04/12/19 04/12/19 12:34 12:34 12:34 Hgb 9.2 L MCV 64 L MCH 19 L RDW 22.1 H Lymph % (Auto) Eos % (Auto) 9.3 H Lymph # Eos # 0.6 H Seg Neutrophils % POC ABG pO2 Chloride Carbon Dioxide 20 L BUN 19 H Creatinine 0.6 L Glucose 103 H POC Glucose Magnesium Alkaline Phosphatase 155 H NT-Pro-B Natriuret Pep 989.6 H Albumin 3.8 L 04/12/19 04/12/19 04/13/19 20:51 21:48 07:37 Hgb MCV MCH RDW Lymph % (Auto) Eos % (Auto) Lymph # Eos # Seg Neutrophils % POC ABG pO2 Chloride Carbon Dioxide BUN Creatinine Glucose POC Glucose 180 H 153 H Magnesium 2.40 H Alkaline Phosphatase NT-Pro-B Natriuret Pep Albumin 04/13/19 04/13/19 04/13/19 08:38 08:38 12:23 Hgb 9.3 L MCV 64 L MCH 19 L RDW 22.1 H Lymph % (Auto) 8.8 L Eos % (Auto) Lymph # 0.7 L Eos # Seg Neutrophils % 85.5 H POC ABG pO2 Chloride Carbon Dioxide 19 L BUN 27 H Creatinine Glucose 149 H POC Glucose 412 H Magnesium Alkaline Phosphatase NT-Pro-B Natriuret Pep Albumin 04/13/19 04/13/19 04/14/19 17:01 21:31 05:32 Hgb MCV MCH RDW Lymph % (Auto) Eos % (Auto) Lymph # Eos # Seg Neutrophils % POC ABG pO2 Chloride Carbon Dioxide BUN 30 H Creatinine Glucose 210 H POC Glucose 131 H 274 H Magnesium Alkaline Phosphatase NT-Pro-B Natriuret Pep Albumin 04/14/19 04/14/19 04/14/19 07:46 11:30 16:09 Hgb MCV MCH RDW Lymph % (Auto) Eos % (Auto) Lymph # Eos # Seg Neutrophils % POC ABG pO2 Chloride Carbon Dioxide BUN Creatinine Glucose POC Glucose 240 H 288 H 500 H Magnesium Alkaline Phosphatase NT-Pro-B Natriuret Pep Albumin 04/14/19 04/14/19 04/15/19 16:48 21:24 07:29 Hgb MCV MCH RDW Lymph % (Auto) Eos % (Auto) Lymph # Eos # Seg Neutrophils % POC ABG pO2 Chloride Carbon Dioxide BUN Creatinine Glucose 388 H POC Glucose 386 H 187 H Magnesium Alkaline Phosphatase NT-Pro-B Natriuret Pep Albumin 04/15/19 04/15/19 04/15/19 08:55 13:02 16:35 Hgb MCV MCH RDW Lymph % (Auto) Eos % (Auto) Lymph # Eos # Seg Neutrophils % POC ABG pO2 68 L Chloride Carbon Dioxide BUN Creatinine Glucose POC Glucose 218 H 278 H Magnesium Alkaline Phosphatase NT-Pro-B Natriuret Pep Albumin 04/15/19 04/16/19 04/16/19 22:22 04:46 08:13 Hgb MCV MCH RDW Lymph % (Auto) Eos % (Auto) Lymph # Eos # Seg Neutrophils % POC ABG pO2 Chloride 97.6 L Carbon Dioxide BUN 36 H Creatinine Glucose 258 H POC Glucose 304 H 239 H Magnesium Alkaline Phosphatase NT-Pro-B Natriuret Pep Albumin Chest x-ray: image reviewed
[2019-04-16] MEDS: cloNIDine 0.2 MG TAB PO SCH ×2 (12:14→22:35)
[2019-04-16] MEDS: NICOTINE 21 MG/24 HR PATCH TD SCH (12:14)
[2019-04-16] MEDS: METOPROLOL TARTRATE 50 MG TAB PO SCH ×2 (12:15→22:36)
[2019-04-16] MEDS: ASPIRIN 81 MG TAB CHEW PO SCH (12:17)
[2019-04-16] MEDS: amLODIPine 10 MG TAB PO SCH (12:17)
[2019-04-16] MEDS: CLOPIDOGREL 75 MG TAB PO SCH (12:17)
[2019-04-16] MEDS: LOSARTAN 50 MG TAB PO SCH (12:18)
[2019-04-16] MEDS: LORazepam 2 MG/ML VIAL IV PRN ×2 (12:35→22:35)
--- NOTE | 2019-04-16 16:27 | Progress Note ---
Assessment and Plan Assessment and plan: Acute HFrEF. Cont IV diuresis per Cardiology. ECHO revealed - EF 35-40%, mild LVH, restrictive diastolic filling, moderate pulm HTN. Echo done 06/2018 showed EF 45-50%, mod LVH. Cardiology following Acute COPD exacerbation. Cont steroids, bronchodilators/nebs. Accel HTN. Cont home regimen and adjust as needed CAD. hx of stent. Cont per Cards DMII. Accuchecks and SSRI HLD. Cont statin Morbid obesity. Pt will be couseled on weight loss and exercise Tobacco abuse. Pt will be couseled on cessation Disposition. Anticipate d/c in 1-2 days History Interval history: Pt still c/o SOB Hospitalist Physical - Constitutional Vitals: Temp Pulse Resp BP Pulse Ox 98.2 F 72 22 182/119 99 04/16/19 11:59 04/16/19 12:18 04/16/19 11:59 04/16/19 12:18 04/16/19 11:59 General appearance: Present: no acute distress - EENT Eyes: Present: PERRL, EOM intact ENT: hearing intact, clear oral mucosa, dentition normal - Neck Neck: Present: supple, normal ROM - Respiratory Respiratory effort: normal Respiratory: bilateral: CTA - Cardiovascular Rhythm: regular Heart Sounds: Present: S1 & S2. Absent: gallop, rub - Extremities Extremities: no ischemia, No edema, Full ROM - Abdominal General gastrointestinal: soft, non-tender, non-distended, normal bowel sounds - Integumentary Integumentary: Present: clear, warm, dry - Neurologic Neurologic: CNII-XII intact, moves all extremities Results - Labs CBC & Chem 7: 04/13/19 08:38 04/16/19 04:46 Labs: Laboratory Last Values WBC 7.4 K/mm3 (4.5-11.0) 04/13/19 08:38 RBC 4.82 M/mm3 (3.65-5.03) 04/13/19 08:38 Hgb 9.3 gm/dl (10.1-14.3) L 04/13/19 08:38 Hct 31.0 % (30.3-42.9) 04/13/19 08:38 MCV 64 fl (79-97) L 04/13/19 08:38 MCH 19 pg (28-32) L 04/13/19 08:38 MCHC 30 % (30-34) 04/13/19 08:38 RDW 22.1 % (13.2-15.2) H 04/13/19 08:38 Plt Count 337 K/mm3 (140-440) 04/13/19 08:38 Lymph % (Auto) 8.8 % (13.4-35.0) L 04/13/19 08:38 [place] % (Auto) 5.3 % (0.0-7.3) 04/13/19 08:38 Eos % (Auto) 0.0 % (0.0-4.3) 04/13/19 08:38 Baso % (Auto) 0.4 % (0.0-1.8) 04/13/19 08:38 Lymph # 0.7 K/mm3 (1.2-5.4) L 04/13/19 08:38 [place] # 0.4 K/mm3 (0.0-0.8) 04/13/19 08:38 Eos # 0.0 K/mm3 (0.0-0.4) 04/13/19 08:38 Baso # 0.0 K/mm3 (0.0-0.1) 04/13/19 08:38 Seg Neutrophils % 85.5 % (40.0-70.0) H 04/13/19 08:38 Seg Neutrophils # 6.3 K/mm3 (1.8-7.7) 04/13/19 08:38 POC ABG pH 7.409 (7.35-7.45) 04/15/19 08:55 POC ABG pCO2 41.4 (35-45) 04/15/19 08:55 POC ABG pO2 68 (80-105) L 04/15/19 08:55 POC ABG HCO3 26.2 (22-26 mml/L) 04/15/19 08:55 POC ABG Total CO2 27 (23-27mmol/L) 04/15/19 08:55 POC ABG O2 Sat 94 04/15/19 08:55 POC ABG Base Excess 2 ((-2) - (+3)mmol/L) 04/15/19 08:55 FiO2 21 % 04/15/19 08:55 Sodium 137 mmol/L (137-145) 04/16/19 04:46 Potassium 4.9 mmol/L (3.6-5.0) 04/16/19 04:46 Chloride 97.6 mmol/L (98-107) L 04/16/19 04:46 Carbon Dioxide 26 mmol/L (22-30) 04/16/19 04:46 Anion Gap 18 mmol/L 04/16/19 04:46 BUN 36 mg/dL (7-17) H 04/16/19 04:46 Creatinine 1.0 mg/dL (0.7-1.2) 04/16/19 04:46 Estimated GFR > 60 ml/min 04/16/19 04:46 BUN/Creatinine Ratio 36 % 04/16/19 04:46 Glucose 258 mg/dL (65-100) H 04/16/19 04:46 POC Glucose 261 (70-105) H 04/16/19 12:05 Calcium 9.3 mg/dL (8.4-10.2) 04/16/19 04:46 Magnesium 2.40 mg/dL (1.7-2.3) H 04/12/19 20:51 Total Bilirubin 0.20 mg/dL (0.1-1.2) 04/12/19 12:34 AST 10 units/L (5-40) 04/12/19 12:34 ALT 8 units/L (7-56) 04/12/19 12:34 Alkaline Phosphatase 155 units/L (35-129) H 04/12/19 12:34 Troponin T < 0.010 ng/mL (0.00-0.029) 04/12/19 12:34 NT-Pro-B Natriuret Pep 989.6 pg/mL (0-900) H 04/12/19 12:34 Total Protein 7.7 g/dL (6.3-8.2) 04/12/19 12:34 Albumin 3.8 g/dL (3.9-5) L 04/12/19 12:34 Albumin/Globulin Ratio 1.0 % 04/12/19 12:34 TSH 0.417 mlU/mL (0.270-4.200) 04/12/19 20:51 Free T4 1.16 ng/dL (0.76-1.46) 04/12/19 20:51 Active Medications - Current Medications Current Medications: Generic Name Dose Route Start Last Admin Trade Name Freq PRN Reason Stop Dose Admin Acetaminophen 650 mg 04/12/19 15:07 Tylenol PO Q4H PRN Pain MILD(1-3)/Fever >100.5/ALAS Albuterol 2.5 mg 04/12/19 15:07 04/13/19 21:25 Proventil IH 2.5 mg Q4HRT PRN Administration Shortness Of Breath Amlodipine Besylate 10 mg 04/13/19 12:00 04/16/19 12:17 Amlodipine PO 10 mg QDAY ANN MARIE Administration Aspirin 81 mg 04/13/19 10:00 04/16/19 12:17 Baby Aspirin PO 81 mg QDAY ANN MARIE Administration Atorvastatin Calcium 40 mg 04/12/19 22:00 04/15/19 21:44 Lipitor PO 40 mg QHS ANN MARIE Administration Clonidine HCl 0.2 mg 04/13/19 22:00 04/16/19 12:14 Catapres PO 0.2 mg BID ANN MARIE Administration Clopidogrel Bisulfate 75 mg 04/13/19 10:00 04/16/19 12:17 Plavix PO 75 mg QDAY ANN MARIE Administration Enoxaparin Sodium 40 mg 04/12/19 22:00 04/15/19 21:45 Enoxaparin SUB-Q 40 mg QDAY@2200 ANN MARIE Administration Furosemide 40 mg 04/13/19 11:22 04/16/19 06:17 Lasix IV 40 mg 0600,1800 ANN MARIE Administration Hydralazine HCl 10 mg 04/12/19 20:22 04/14/19 06:03 Apresoline IV 10 mg Q6H PRN Administration Hypertension Insulin Glargine 10 units 04/13/19 22:00 04/15/19 22:50 Lantus SUB-Q 10 units QHS ANN MARIE Administration Insulin Human Lispro 0 unit 04/13/19 00:01 04/16/19 12:35 Humalog SUB-Q 4 unit ACHS ANN MARIE Administration Protocol Isosorbide Mononitrate 60 mg 04/14/19 10:00 04/16/19 12:16 Imdur PO 60 mg QDAY ANN MARIE Administration Lorazepam 1 mg 04/12/19 23:57 04/16/19 12:35 Ativan IV 1 mg Q3H PRN Administration Anxiety Losartan Potassium 100 mg 04/13/19 10:00 04/16/19 12:18 Cozaar PO 100 mg QDAY ANN MARIE Administration Methylprednisolone Sodium Succinate 60 mg 04/13/19 14:00 04/16/19 16:10 Solu-Medrol IV 60 mg Q8HR ANN MARIE Administration Metoprolol Tartrate 50 mg 04/15/19 22:00 04/16/19 12:15 Metoprolol PO 50 mg BID ANN MARIE Administration Nicotine 21 mg 04/13/19 10:00 04/16/19 12:14 Habitrol TD 21 mg DAILY ANN MARIE Administration Ondansetron HCl 4 mg 04/12/19 15:07 Zofran IV Q8H PRN Nausea And Vomiting Sodium Chloride 10 ml 04/12/19 22:00 04/16/19 12:18 Sodium Chloride Flush Syringe 10 Ml IV 10 ml BID ANN MARIE Administration Sodium Chloride 10 ml 04/12/19 15:07 Sodium Chloride Flush Syringe 10 Ml IV PRN PRN LINE FLUSH
[2019-04-16] MEDS: ENOXAPARIN 40 MG/0.4 ML INJ SUB-Q SCH (22:34)
[2019-04-16] MEDS: INSULIN GLARGINE 100 UNITS/ML SUB-Q SCH (22:36)
[2019-04-16] MEDS: ACETAMINOPHEN 325 MG TAB PO PRN (22:38)
[2019-04-17] MEDS: hydrALAZINE 20 MG/1 ML INJ IV PRN ×2 (06:55→17:10)
[2019-04-17] MEDS: FUROSEMIDE 40 MG/4 ML INJ IV SCH ×2 (06:55→17:11)
[2019-04-17] MEDS: methylPREDNISolone Sod Succinate 125 MG/2 ML INJ IV SCH ×3 (06:55→21:36)
[2019-04-17] MEDS: INSULIN LISPRO 100 UNIT/ML SUB-Q SCH ×4 (08:40→22:10)
[2019-04-17] MEDS: ASPIRIN 81 MG TAB CHEW PO SCH (09:39)
[2019-04-17] MEDS: NICOTINE 21 MG/24 HR PATCH TD SCH (09:39)
[2019-04-17] MEDS: CLOPIDOGREL 75 MG TAB PO SCH (09:39)
[2019-04-17] MEDS: METOPROLOL TARTRATE 50 MG TAB PO SCH ×2 (09:41→21:37)
[2019-04-17] MEDS: cloNIDine 0.2 MG TAB PO SCH ×2 (09:41→21:38)
[2019-04-17] MEDS: amLODIPine 10 MG TAB PO SCH (09:41)
[2019-04-17] MEDS: LOSARTAN 50 MG TAB PO SCH (09:42)
[2019-04-17] MEDS: LORazepam 2 MG/ML VIAL IV PRN ×2 (09:53→22:10)
--- NOTE | 2019-04-17 11:37 | Progress Note ---
Assessment and Plan Assessment and plan: Acute HFrEF. Cont IV diuresis per Cardiology. ECHO revealed - EF 35-40%, mild LVH, restrictive diastolic filling, moderate pulm HTN. Echo done 06/2018 showed EF 45-50%, mod LVH. Cardiology following Acute COPD exacerbation. Cont steroids, bronchodilators/nebs. Accel HTN. Cont home regimen and adjust as needed CAD. hx of stent. Cont per Cards DMII. Accuchecks and SSRI. Increase Lantus. Attempt to wean steroids. HLD. Cont statin Morbid obesity. Pt will be couseled on weight loss and exercise Tobacco abuse. Pt couseled on cessation History Interval history: Pt still c/o SOB. Patient on HFNC requiring 15 L Hospitalist Physical - Constitutional Vitals: Temp Pulse Resp BP Pulse Ox 98.1 F 82 20 152/80 96 04/17/19 05:24 04/17/19 09:42 04/17/19 05:24 04/17/19 09:42 04/17/19 05:24 General appearance: Present: mild distress, obese - EENT Eyes: Present: PERRL, EOM intact ENT: hearing intact, clear oral mucosa, dentition normal - Neck Neck: Present: supple, normal ROM - Respiratory Respiratory effort: normal Respiratory: bilateral: diminished, rhonchi - Cardiovascular Rhythm: regular Heart Sounds: Present: S1 & S2. Absent: gallop, rub - Extremities Extremities: no ischemia, No edema, Full ROM - Abdominal General gastrointestinal: soft, non-tender, non-distended, normal bowel sounds - Integumentary Integumentary: Present: clear, warm, dry - Neurologic Neurologic: CNII-XII intact, moves all extremities Results - Labs CBC & Chem 7: 04/13/19 08:38 04/16/19 04:46 Labs: Laboratory Last Values WBC 7.4 K/mm3 (4.5-11.0) 04/13/19 08:38 RBC 4.82 M/mm3 (3.65-5.03) 04/13/19 08:38 Hgb 9.3 gm/dl (10.1-14.3) L 04/13/19 08:38 Hct 31.0 % (30.3-42.9) 04/13/19 08:38 MCV 64 fl (79-97) L 04/13/19 08:38 MCH 19 pg (28-32) L 04/13/19 08:38 MCHC 30 % (30-34) 04/13/19 08:38 RDW 22.1 % (13.2-15.2) H 04/13/19 08:38 Plt Count 337 K/mm3 (140-440) 04/13/19 08:38 Lymph % (Auto) 8.8 % (13.4-35.0) L 04/13/19 08:38 [place] % (Auto) 5.3 % (0.0-7.3) 04/13/19 08:38 Eos % (Auto) 0.0 % (0.0-4.3) 04/13/19 08:38 Baso % (Auto) 0.4 % (0.0-1.8) 04/13/19 08:38 Lymph # 0.7 K/mm3 (1.2-5.4) L 04/13/19 08:38 [place] # 0.4 K/mm3 (0.0-0.8) 04/13/19 08:38 Eos # 0.0 K/mm3 (0.0-0.4) 04/13/19 08:38 Baso # 0.0 K/mm3 (0.0-0.1) 04/13/19 08:38 Seg Neutrophils % 85.5 % (40.0-70.0) H 04/13/19 08:38 Seg Neutrophils # 6.3 K/mm3 (1.8-7.7) 04/13/19 08:38 POC ABG pH 7.409 (7.35-7.45) 04/15/19 08:55 POC ABG pCO2 41.4 (35-45) 04/15/19 08:55 POC ABG pO2 68 (80-105) L 04/15/19 08:55 POC ABG HCO3 26.2 (22-26 mml/L) 04/15/19 08:55 POC ABG Total CO2 27 (23-27mmol/L) 04/15/19 08:55 POC ABG O2 Sat 94 04/15/19 08:55 POC ABG Base Excess 2 ((-2) - (+3)mmol/L) 04/15/19 08:55 FiO2 21 % 04/15/19 08:55 Sodium 137 mmol/L (137-145) 04/16/19 04:46 Potassium 4.9 mmol/L (3.6-5.0) 04/16/19 04:46 Chloride 97.6 mmol/L (98-107) L 04/16/19 04:46 Carbon Dioxide 26 mmol/L (22-30) 04/16/19 04:46 Anion Gap 18 mmol/L 04/16/19 04:46 BUN 36 mg/dL (7-17) H 04/16/19 04:46 Creatinine 1.0 mg/dL (0.7-1.2) 04/16/19 04:46 Estimated GFR > 60 ml/min 04/16/19 04:46 BUN/Creatinine Ratio 36 % 04/16/19 04:46 Glucose 258 mg/dL (65-100) H 04/16/19 04:46 POC Glucose 181 (70-105) H 04/17/19 07:38 Calcium 9.3 mg/dL (8.4-10.2) 04/16/19 04:46 Magnesium 2.40 mg/dL (1.7-2.3) H 04/12/19 20:51 Total Bilirubin 0.20 mg/dL (0.1-1.2) 04/12/19 12:34 AST 10 units/L (5-40) 04/12/19 12:34 ALT 8 units/L (7-56) 04/12/19 12:34 Alkaline Phosphatase 155 units/L (35-129) H 04/12/19 12:34 Troponin T < 0.010 ng/mL (0.00-0.029) 04/12/19 12:34 NT-Pro-B Natriuret Pep 989.6 pg/mL (0-900) H 04/12/19 12:34 Total Protein 7.7 g/dL (6.3-8.2) 04/12/19 12:34 Albumin 3.8 g/dL (3.9-5) L 04/12/19 12:34 Albumin/Globulin Ratio 1.0 % 04/12/19 12:34 TSH 0.417 mlU/mL (0.270-4.200) 04/12/19 20:51 Free T4 1.16 ng/dL (0.76-1.46) 04/12/19 20:51 Active Medications - Current Medications Current Medications: Generic Name Dose Route Start Last Admin Trade Name Freq PRN Reason Stop Dose Admin Acetaminophen 650 mg 04/12/19 15:07 04/16/19 22:38 Tylenol PO 650 mg Q4H PRN Administration Pain MILD(1-3)/Fever >100.5/ALAS Albuterol 2.5 mg 04/12/19 15:07 04/13/19 21:25 Proventil IH 2.5 mg Q4HRT PRN Administration Shortness Of Breath Amlodipine Besylate 10 mg 04/13/19 12:00 04/17/19 09:41 Amlodipine PO 10 mg QDAY ANN MARIE Administration Aspirin 81 mg 04/13/19 10:00 04/17/19 09:39 Baby Aspirin PO 81 mg QDAY ANN MARIE Administration Atorvastatin Calcium 40 mg 04/12/19 22:00 04/16/19 22:35 Lipitor PO 40 mg QHS ANN MARIE Administration Clonidine HCl 0.2 mg 04/13/19 22:00 04/17/19 09:41 Catapres PO 0.2 mg BID ANN MARIE Administration Clopidogrel Bisulfate 75 mg 04/13/19 10:00 04/17/19 09:39 Plavix PO 75 mg QDAY ANN MARIE Administration Enoxaparin Sodium 40 mg 04/12/19 22:00 04/16/19 22:34 Enoxaparin SUB-Q 40 mg QDAY@2200 ANN MARIE Administration Furosemide 40 mg 04/13/19 11:22 04/17/19 06:55 Lasix IV 40 mg 0600,1800 ANN MARIE Administration Hydralazine HCl 10 mg 04/12/19 20:22 04/17/19 06:55 Apresoline IV 10 mg Q6H PRN Administration Hypertension Insulin Glargine 10 units 04/13/19 22:00 04/16/19 22:36 Lantus SUB-Q 10 units QHS ANN MARIE Administration Insulin Human Lispro 0 unit 04/13/19 00:01 04/17/19 08:40 Humalog SUB-Q 2 unit ACHS ANN MARIE Administration Protocol Isosorbide Mononitrate 60 mg 04/14/19 10:00 04/17/19 09:40 Imdur PO 60 mg QDAY ANN MARIE Administration Lorazepam 1 mg 04/12/19 23:57 04/17/19 09:53 Ativan IV 1 mg Q3H PRN Administration Anxiety Losartan Potassium 100 mg 04/13/19 10:00 04/17/19 09:42 Cozaar PO 100 mg QDAY ANN MARIE Administration Methylprednisolone Sodium Succinate 60 mg 04/13/19 14:00 04/17/19 06:55 Solu-Medrol IV 60 mg Q8HR ANN MARIE Administration Metoprolol Tartrate 50 mg 04/15/19 22:00 04/17/19 09:41 Metoprolol PO 50 mg BID ANN MARIE Administration Nicotine 21 mg 04/13/19 10:00 04/17/19 09:39 Habitrol TD 21 mg DAILY ANN MARIE Administration Ondansetron HCl 4 mg 04/12/19 15:07 Zofran IV Q8H PRN Nausea And Vomiting Sodium Chloride 10 ml 04/12/19 22:00 04/17/19 09:43 Sodium Chloride Flush Syringe 10 Ml IV 10 ml BID ANN MARIE Administration Sodium Chloride 10 ml 04/12/19 15:07 Sodium Chloride Flush Syringe 10 Ml IV PRN PRN LINE FLUSH Nutrition/Malnutrition Assess - Dietary Evaluation Nutrition/Malnutrition Findings: Nutrition Notes Start: 04/17/19 10:48 Freq: Status: Active Protocol: Document 04/17/19 10:48 CT (Rec: 04/17/19 10:48 CT [id number]) Co-Sign 04/17/19 10:48 LP Nutrition Notes Need for Assessment generated from: LOS Subjective/Other Information Pt eating 100% of meals per ADLs. Nutrition Intervention Anticipated Discharge Needs: Cardiac/Consistent CHO Revisit per MD consult or patient Sign Off request:
--- NOTE | 2019-04-17 11:54 | Progress Note ---
Assessment and Plan Acute on chronic hypoxic respiratory failure AE COPD Tobacco use disorder-Nicoit[place] dependence Acute HFrEF - ECHO revealed - EF 35-40%, mild LVH, restrictive diastolic filling, moderate pulm HTN. Echo done 06/2018 showed EF 45-50%, mod LVH. Morbid obesity Accel HTN CAD Type 2 DM Continue all current care With ongoing wheezing, add azithromycin for anti-inflammatory properties while monitoring closely for arrhythmias -Continue supplemental oxygen to keep O2 sats>90% -Nocturnal BIPAP and prn -Antibiotics to complete course for severe AE-COPD -Bronchodilators -Continue Montelukast -Start steroid taper in the next 24 hours hours -Accucheck with glycemic control -VTE prophylaxis -Smoking cessation counselling done at the bedside for 7 minutes. States she is ready to quit -Nicotine withdrawal precautions -Cardioprotective measures, heart failure measures and education -Gentle diuresis while monitoring renal function, hemodynamics and electrolyte profile -Increase activity -Weight loss and life style modifications -CXR and ABG prn -Influenza and pneumonia vaccination per protocol -Blood pressure control Subjective Date of service: 04/17/19 Principal diagnosis: HF; COPD exac Interval history: Patient is seen today for: Acute Hypoxemic and Hypercapnic Respiratory failure; AE-COPD; ADAN-OHS; Tobacco use disorder-nicotine dependence; Morbid obesity Seen and examined at bedside; 24hour events reviewed; nursing and respiratory care staff consulted; no adverse overnight events reported to me; resting in chair; on going shortness of breath with minimal exertion; no nausea or vomiting; no fevers; no diarrhea; cough is improving Home oxygen was delivered this morning- portable tank Vitals, labs, medications, chart reviewed Objective Vital Signs - 12hr 04/17/19 04/17/19 04/17/19 05:24 06:55 09:40 Temperature 98.1 F Pulse Rate 71 71 82 Respiratory 20 Rate Blood Pressure 191/110 191/110 152/80 O2 Sat by Pulse 96 Oximetry 04/17/19 04/17/19 04/17/19 09:41 09:42 11:27 Temperature 98.2 F Pulse Rate 82 82 79 Respiratory 22 Rate Blood Pressure 152/80 152/80 185/97 O2 Sat by Pulse 93 Oximetry Constitutional: no acute distress, alert Eyes: non-icteric Neck: supple, no lymphadenopathy, no JVD Effort: mildly labored Ascultation: Bilateral: wheezes Cardiovascular: regular rate and rhythm, other (S1,S2) Gastrointestinal: normoactive bowel sounds, soft, non-tender Integumentary: normal Extremities: no cyanosis, no edema Neurologic: normal mental status, non-focal exam, pupils equal and round, CN II- XII normal Psychiatric: mood appropriate, affect normal CBC and BMP: 04/13/19 08:38 04/18/19 07:16 ABG, PT/INR, D-dimer: ABG POC ABG pH 7.409 (7.35-7.45) 04/15/19 08:55 POC ABG pCO2 41.4 (35-45) 04/15/19 08:55 POC ABG pO2 68 (80-105) L 04/15/19 08:55 POC ABG HCO3 26.2 (22-26 mml/L) 04/15/19 08:55 POC ABG Total CO2 27 (23-27mmol/L) 04/15/19 08:55 POC ABG O2 Sat 94 04/15/19 08:55 Abnormal lab findings: Abnormal Labs 04/12/19 04/12/19 04/12/19 12:34 12:34 12:34 Hgb 9.2 L MCV 64 L MCH 19 L RDW 22.1 H Lymph % (Auto) Eos % (Auto) 9.3 H Lymph # Eos # 0.6 H Seg Neutrophils % POC ABG pO2 Chloride Carbon Dioxide 20 L BUN 19 H Creatinine 0.6 L Glucose 103 H POC Glucose Magnesium Alkaline Phosphatase 155 H NT-Pro-B Natriuret Pep 989.6 H Albumin 3.8 L 04/12/19 04/12/19 04/13/19 20:51 21:48 07:37 Hgb MCV MCH RDW Lymph % (Auto) Eos % (Auto) Lymph # Eos # Seg Neutrophils % POC ABG pO2 Chloride Carbon Dioxide BUN Creatinine Glucose POC Glucose 180 H 153 H Magnesium 2.40 H Alkaline Phosphatase NT-Pro-B Natriuret Pep Albumin 04/13/19 04/13/19 04/13/19 08:38 08:38 12:23 Hgb 9.3 L MCV 64 L MCH 19 L RDW 22.1 H Lymph % (Auto) 8.8 L Eos % (Auto) Lymph # 0.7 L Eos # Seg Neutrophils % 85.5 H POC ABG pO2 Chloride Carbon Dioxide 19 L BUN 27 H Creatinine Glucose 149 H POC Glucose 412 H Magnesium Alkaline Phosphatase NT-Pro-B Natriuret Pep Albumin 04/13/19 04/13/19 04/14/19 17:01 21:31 05:32 Hgb MCV MCH RDW Lymph % (Auto) Eos % (Auto) Lymph # Eos # Seg Neutrophils % POC ABG pO2 Chloride Carbon Dioxide BUN 30 H Creatinine Glucose 210 H POC Glucose 131 H 274 H Magnesium Alkaline Phosphatase NT-Pro-B Natriuret Pep Albumin 04/14/19 04/14/19 04/14/19 07:46 11:30 16:09 Hgb MCV MCH RDW Lymph % (Auto) Eos % (Auto) Lymph # Eos # Seg Neutrophils % POC ABG pO2 Chloride Carbon Dioxide BUN Creatinine Glucose POC Glucose 240 H 288 H 500 H Magnesium Alkaline Phosphatase NT-Pro-B Natriuret Pep Albumin 04/14/19 04/14/19 04/15/19 16:48 21:24 07:29 Hgb MCV MCH RDW Lymph % (Auto) Eos % (Auto) Lymph # Eos # Seg Neutrophils % POC ABG pO2 Chloride Carbon Dioxide BUN Creatinine Glucose 388 H POC Glucose 386 H 187 H Magnesium Alkaline Phosphatase NT-Pro-B Natriuret Pep Albumin 04/15/19 04/15/19 04/15/19 08:55 13:02 16:35 Hgb MCV MCH RDW Lymph % (Auto) Eos % (Auto) Lymph # Eos # Seg Neutrophils % POC ABG pO2 68 L Chloride Carbon Dioxide BUN Creatinine Glucose POC Glucose 218 H 278 H Magnesium Alkaline Phosphatase NT-Pro-B Natriuret Pep Albumin 04/15/19 04/16/19 04/16/19 22:22 04:46 08:13 Hgb MCV MCH RDW Lymph % (Auto) Eos % (Auto) Lymph # Eos # Seg Neutrophils % POC ABG pO2 Chloride 97.6 L Carbon Dioxide BUN 36 H Creatinine Glucose 258 H POC Glucose 304 H 239 H Magnesium Alkaline Phosphatase NT-Pro-B Natriuret Pep Albumin 04/16/19 04/16/19 04/16/19 12:05 16:51 21:59 Hgb MCV MCH RDW Lymph % (Auto) Eos % (Auto) Lymph # Eos # Seg Neutrophils % POC ABG pO2 Chloride Carbon Dioxide BUN Creatinine Glucose POC Glucose 261 H 285 H 317 H Magnesium Alkaline Phosphatase NT-Pro-B Natriuret Pep Albumin 04/17/19 04/17/19 07:38 11:32 Hgb MCV MCH RDW Lymph % (Auto) Eos % (Auto) Lymph # Eos # Seg Neutrophils % POC ABG pO2 Chloride Carbon Dioxide BUN Creatinine Glucose POC Glucose 181 H 349 H Magnesium Alkaline Phosphatase NT-Pro-B Natriuret Pep Albumin
--- NOTE | 2019-04-17 12:04 | Progress Note ---
Assessment and Plan Pt still with wheezing and developed cough overnight. Follow pulmonary recs. Physical therapy did not start yesterday because her blood pressures were too high. She has still not been OOB. Optimize BPs - initiate hydralazine. Encourage increased activity and ambulation. Pt appears to be nearing euvolemia. Will convert IV lasix to PO lasix from tomorrow AM. Hopeful d/c within next 24-48hrs. The patient has been seen in conjunction with Dr. Joselito Brian who agrees with the assessment and plan of care. - Patient Problems (1) Acute HFrEF (heart failure with reduced ejection fraction) Current Visit: Yes Status: Acute (2) Cardiomyopathy Current Visit: Yes Status: Chronic (3) COPD exacerbation Current Visit: Yes Status: Acute (4) Acute on chronic respiratory failure Current Visit: Yes Status: Acute (5) Accelerated hypertension Current Visit: Yes Status: Acute (6) CAD (coronary artery disease) Current Visit: Yes Status: Chronic Qualifiers: Coronary Disease-Associated Artery/Lesion type: [place] artery [place] vs. transplanted heart: [place] heart Associated angina: with stable angina Qualified Code(s): I25.118 - Atherosclerotic heart disease of [place] coronary artery with other forms of angina pectoris (7) Stented coronary artery Current Visit: Yes Status: Chronic (8) Diabetes Current Visit: Yes Status: Chronic (9) Pleuritic chest pain Current Visit: Yes Status: Acute (10) Hyperlipidemia Current Visit: Yes Status: Chronic Qualifiers: Hyperlipidemia type: mixed hyperlipidemia Qualified Code(s): E78.2 - Mixed hyperlipidemia (11) Morbid obesity Current Visit: Yes Status: Chronic (12) Obstructive sleep apnea Current Visit: Yes Status: Chronic (13) Tobacco abuse Current Visit: Yes Status: Chronic (14) Medical non-compliance Current Visit: Yes Status: Chronic Subjective Date of service: 04/17/19 Principal diagnosis: HF; COPD exac Interval history: pt resting in bed, feeling better today. still wheezing and developed cough overnight. in SR on tele. has not been OOB. Objective Last Vital Signs Temp 98.2 F 04/17/19 11:27 Pulse 79 04/17/19 11:27 Resp 22 04/17/19 11:27 BP 185/97 04/17/19 11:27 Pulse Ox 93 04/17/19 11:27 - Physical Examination General: No Apparent Distress HEENT: Positive: PERRL, Normocephaly, Mucus Membranes Moist Neck: Positive: neck supple, trachea midline Cardiac: Positive: Reg Rate and Rhythm, S1/S2 Lungs: Positive: Wheezes Neuro: Positive: Grossly Intact Abdomen: Negative: Tender Skin: Negative: Rash Musculoskeletal: No Pain Extremities: Present: edema (trace BLE) - Imaging and Cardiology EKG: report reviewed, image reviewed Echo: report reviewed (EF 35-40%, mild LVH, restrictive diastolic filling, moderate pulm HTN. Echo done 06/2018 showed EF 45-50%, mod LVH. ) Cardiac cath: report reviewed ( 06/2018 with PCI of ramus with DIANELYS, left main patent, LAD patent, RCA moderate to severe tortuosity with mid stent patent, circ patent, OM1 50% with ramus 100% with successful PCI, acute diastolic dysfunction. ) - EKG Sinus rhythms and dysrhythmias: sinus rhythm
[2019-04-17 12:31] LABS: BUN/Creatinine Ratio 45; Blood Urea Nitrogen 36 mg/dL (7-17); Calcium 9.1 mg/dL (8.4-10.2); Hemolysis Index 14
[2019-04-17] MEDS: hydrALAZINE 25 MG TAB PO SCH ×2 (13:09→21:37)
[2019-04-17] MEDS: ENOXAPARIN 40 MG/0.4 ML INJ SUB-Q SCH (21:42)
[2019-04-17] MEDS: INSULIN GLARGINE 100 UNITS/ML SUB-Q SCH (22:11)
[2019-04-18] MEDS: hydrALAZINE 20 MG/1 ML INJ IV PRN (00:44)
[2019-04-18] MEDS: hydrALAZINE 25 MG TAB PO SCH ×3 (06:41→22:22)
[2019-04-18] MEDS: methylPREDNISolone Sod Succinate 125 MG/2 ML INJ IV SCH ×3 (06:41→22:24)
[2019-04-18] MEDS: INSULIN LISPRO 100 UNIT/ML SUB-Q SCH ×4 (07:30→22:24)
[2019-04-18 07:47] LABS: BUN/Creatinine Ratio 43; Blood Urea Nitrogen 34 mg/dL (7-17); Calcium 9.1 mg/dL (8.4-10.2); Hemolysis Index 15
--- NOTE | 2019-04-18 08:37 | Progress Note ---
Assessment and Plan - Patient Problems (1) Acute HFrEF (heart failure with reduced ejection fraction) Current Visit: Yes Status: Acute (2) Cardiomyopathy Current Visit: Yes Status: Chronic (3) COPD exacerbation Current Visit: Yes Status: Acute (4) Acute on chronic respiratory failure Current Visit: Yes Status: Acute (5) Accelerated hypertension Current Visit: Yes Status: Acute (6) CAD (coronary artery disease) Current Visit: Yes Status: Chronic Qualifiers: Coronary Disease-Associated Artery/Lesion type: [place] artery [place] vs. transplanted heart: [place] heart Associated angina: with stable angina Qualified Code(s): I25.118 - Atherosclerotic heart disease of [place] coronary artery with other forms of angina pectoris (7) Stented coronary artery Current Visit: Yes Status: Chronic (8) Diabetes Current Visit: Yes Status: Chronic (9) Pleuritic chest pain Current Visit: Yes Status: Acute (10) Hyperlipidemia Current Visit: Yes Status: Chronic Qualifiers: Hyperlipidemia type: mixed hyperlipidemia Qualified Code(s): E78.2 - Mixed hyperlipidemia (11) Morbid obesity Current Visit: Yes Status: Chronic (12) Obstructive sleep apnea Current Visit: Yes Status: Chronic (13) Tobacco abuse Current Visit: Yes Status: Chronic (14) Medical non-compliance Current Visit: Yes Status: Chronic cardiac status stable bp elevated still wheezing rec: per pulm escalate antihtn therapy--consider increasing dose of hydralazine continue current mgt Subjective Date of service: 04/18/19 Principal diagnosis: HF; COPD exac Interval history: pt denies cp or palp. remains sob and still coughing Objective Vital Signs Temp Pulse Resp BP Pulse Ox 04/18/19 06:41 70 184/92 04/18/19 06:14 97.8 F 70 20 184/92 97 04/18/19 00:44 69 198/104 04/18/19 00:08 98.5 F 69 20 198/104 98 04/17/19 21:44 94 04/17/19 21:38 80 202/96 04/17/19 21:37 80 202/96 04/17/19 17:10 68 209/113 04/17/19 16:33 98.0 F 68 24 226/115 95 04/17/19 13:09 79 185/97 04/17/19 12:47 100 04/17/19 11:27 98.2 F 79 22 185/97 93 04/17/19 09:42 82 152/80 04/17/19 09:41 82 152/80 04/17/19 09:40 82 152/80 - Physical Examination General: No Apparent Distress HEENT: Positive: PERRL, Normocephaly, Mucus Membranes Moist Neck: Positive: neck supple, trachea midline Cardiac: Positive: Reg Rate and Rhythm Lungs: Positive: Decreased Breath Sounds, Wheezes (on expiration) Neuro: Positive: Grossly Intact Abdomen: Negative: Tender Skin: Negative: Rash Musculoskeletal: No Pain Extremities: Present: edema (trace BLE) - Labs and Meds Comprehensive Metabolic Panel 04/17/19 04/18/19 Range/Units 11:28 07:16 Sodium 134 L 135 L (137-145) mmol/L Potassium 4.3 4.3 (3.6-5.0) mmol/L Chloride 94.1 L 94.1 L (98-107) mmol/L Carbon Dioxide 24 25 (22-30) mmol/L BUN 36 H 34 H (7-17) mg/dL Creatinine 0.8 0.8 (0.7-1.2) mg/dL Glucose 352 H 255 H (65-100) mg/dL Calcium 9.1 9.1 (8.4-10.2) mg/dL - Imaging and Cardiology EKG: report reviewed, image reviewed Echo: report reviewed (EF 35-40%, mild LVH, restrictive diastolic filling, moderate pulm HTN. Echo done 06/2018 showed EF 45-50%, mod LVH. ) Cardiac cath: report reviewed ( 06/2018 with PCI of ramus with DIANELYS, left main patent, LAD patent, RCA moderate to severe tortuosity with mid stent patent, circ patent, OM1 50% with ramus 100% with successful PCI, acute diastolic dysfunction. ) - EKG Sinus rhythms and dysrhythmias: sinus rhythm
--- NOTE | 2019-04-18 09:19 | Progress Note ---
Assessment and Plan Assessment and plan: Acute HFrEF. Cont IV diuresis per Cardiology. ECHO revealed - EF 35-40%, mild LVH, restrictive diastolic filling, moderate pulm HTN. Echo done 06/2018 showed EF 45-50%, mod LVH. Cardiology following Acute COPD exacerbation. Cont steroids, bronchodilators/nebs. Hypertensive urgency. BP still uncontrolled Increase clonidine to 0.3mg bid Increase hydralazine to 20mg iv prn CAD. hx of stent. Cont per Cards DMII. Accuchecks and SSRI. Increase Lantus. Attempt to wean steroids. HLD. Cont statin Morbid obesity. Pt will be couseled on weight loss and exercise Tobacco abuse. Pt couseled on cessation History Interval history: Shortness of breath Hospitalist Physical - Physical exam Narrative exam: Gen: Not in acute distress, lying in bed HEENT: Normocephalic, atraumatic Neck: supple, no JVD Heart: S1 and S2 reg, no murmurs, rubs or gallop Lungs: Clear to auscultation bilaterally, Abd: soft, mild tender, [place] over surgical wound, surgical drain,bowel sounds present Ext: No edema, no clubbing, no cyanosis Neuro: Awake, alert, oriented X 3, moves all ext - Constitutional Vitals: Temp Pulse Resp BP Pulse Ox 97.8 F 70 20 184/92 97 04/18/19 06:14 04/18/19 06:41 04/18/19 06:14 04/18/19 06:41 04/18/19 06:14 General appearance: Present: obese Results - Labs CBC & Chem 7: 04/13/19 08:38 04/18/19 07:16 Labs: Laboratory Last Values WBC 7.4 K/mm3 (4.5-11.0) 04/13/19 08:38 RBC 4.82 M/mm3 (3.65-5.03) 04/13/19 08:38 Hgb 9.3 gm/dl (10.1-14.3) L 04/13/19 08:38 Hct 31.0 % (30.3-42.9) 04/13/19 08:38 MCV 64 fl (79-97) L 04/13/19 08:38 MCH 19 pg (28-32) L 04/13/19 08:38 MCHC 30 % (30-34) 04/13/19 08:38 RDW 22.1 % (13.2-15.2) H 04/13/19 08:38 Plt Count 337 K/mm3 (140-440) 04/13/19 08:38 Lymph % (Auto) 8.8 % (13.4-35.0) L 04/13/19 08:38 [place] % (Auto) 5.3 % (0.0-7.3) 04/13/19 08:38 Eos % (Auto) 0.0 % (0.0-4.3) 04/13/19 08:38 Baso % (Auto) 0.4 % (0.0-1.8) 04/13/19 08:38 Lymph # 0.7 K/mm3 (1.2-5.4) L 04/13/19 08:38 [place] # 0.4 K/mm3 (0.0-0.8) 04/13/19 08:38 Eos # 0.0 K/mm3 (0.0-0.4) 04/13/19 08:38 Baso # 0.0 K/mm3 (0.0-0.1) 04/13/19 08:38 Seg Neutrophils % 85.5 % (40.0-70.0) H 04/13/19 08:38 Seg Neutrophils # 6.3 K/mm3 (1.8-7.7) 04/13/19 08:38 POC ABG pH 7.409 (7.35-7.45) 04/15/19 08:55 POC ABG pCO2 41.4 (35-45) 04/15/19 08:55 POC ABG pO2 68 (80-105) L 04/15/19 08:55 POC ABG HCO3 26.2 (22-26 mml/L) 04/15/19 08:55 POC ABG Total CO2 27 (23-27mmol/L) 04/15/19 08:55 POC ABG O2 Sat 94 04/15/19 08:55 POC ABG Base Excess 2 ((-2) - (+3)mmol/L) 04/15/19 08:55 FiO2 21 % 04/15/19 08:55 Sodium 135 mmol/L (137-145) L 04/18/19 07:16 Potassium 4.3 mmol/L (3.6-5.0) 04/18/19 07:16 Chloride 94.1 mmol/L (98-107) L 04/18/19 07:16 Carbon Dioxide 25 mmol/L (22-30) 04/18/19 07:16 Anion Gap 20 mmol/L 04/18/19 07:16 BUN 34 mg/dL (7-17) H 04/18/19 07:16 Creatinine 0.8 mg/dL (0.7-1.2) 04/18/19 07:16 Estimated GFR > 60 ml/min 04/18/19 07:16 BUN/Creatinine Ratio 43 % 04/18/19 07:16 Glucose 255 mg/dL (65-100) H 04/18/19 07:16 POC Glucose 242 (70-105) H 04/18/19 07:42 Calcium 9.1 mg/dL (8.4-10.2) 04/18/19 07:16 Magnesium 2.40 mg/dL (1.7-2.3) H 04/12/19 20:51 Total Bilirubin 0.20 mg/dL (0.1-1.2) 04/12/19 12:34 AST 10 units/L (5-40) 04/12/19 12:34 ALT 8 units/L (7-56) 04/12/19 12:34 Alkaline Phosphatase 155 units/L (35-129) H 04/12/19 12:34 Troponin T < 0.010 ng/mL (0.00-0.029) 04/12/19 12:34 NT-Pro-B Natriuret Pep 989.6 pg/mL (0-900) H 04/12/19 12:34 Total Protein 7.7 g/dL (6.3-8.2) 04/12/19 12:34 Albumin 3.8 g/dL (3.9-5) L 04/12/19 12:34 Albumin/Globulin Ratio 1.0 % 04/12/19 12:34 TSH 0.417 mlU/mL (0.270-4.200) 04/12/19 20:51 Free T4 1.16 ng/dL (0.76-1.46) 04/12/19 20:51 Active Medications - Current Medications Current Medications: Generic Name Dose Route Start Last Admin Trade Name Freq PRN Reason Stop Dose Admin Acetaminophen 650 mg 04/12/19 15:07 04/16/19 22:38 Tylenol PO 650 mg Q4H PRN Administration Pain MILD(1-3)/Fever >100.5/ALAS Albuterol 2.5 mg 04/12/19 15:07 04/13/19 21:25 Proventil IH 2.5 mg Q4HRT PRN Administration Shortness Of Breath Amlodipine Besylate 10 mg 04/13/19 12:00 04/17/19 09:41 Amlodipine PO 10 mg QDAY ANN MARIE Administration Aspirin 81 mg 04/13/19 10:00 04/17/19 09:39 Baby Aspirin PO 81 mg QDAY ANN MARIE Administration Atorvastatin Calcium 40 mg 04/12/19 22:00 04/17/19 21:37 Lipitor PO 40 mg QHS ANN MARIE Administration Clonidine HCl 0.2 mg 04/13/19 22:00 04/17/19 21:38 Catapres PO 0.2 mg BID ANN MARIE Administration Clopidogrel Bisulfate 75 mg 04/13/19 10:00 04/17/19 09:39 Plavix PO 75 mg QDAY ANN MARIE Administration Enoxaparin Sodium 40 mg 04/12/19 22:00 04/17/19 21:42 Enoxaparin SUB-Q 40 mg QDAY@2200 ANN MARIE Administration Furosemide 40 mg 04/18/19 10:00 Lasix PO QDAY ANN MARIE Hydralazine HCl 10 mg 04/12/19 20:22 04/18/19 00:44 Apresoline IV 10 mg Q6H PRN Administration Hypertension Hydralazine HCl 50 mg 04/17/19 14:00 04/18/19 06:41 Apresoline PO 50 mg Q8HR ANN MARIE Administration Insulin Glargine 15 units 04/17/19 22:00 04/17/19 22:11 Lantus SUB-Q 15 units QHS ANN MARIE Administration Insulin Human Lispro 0 unit 04/13/19 00:01 04/18/19 07:30 Humalog SUB-Q 3 unit ACHS ANN MARIE Administration Protocol Isosorbide Mononitrate 60 mg 04/14/19 10:00 04/17/19 09:40 Imdur PO 60 mg QDAY ANN MARIE Administration Lorazepam 1 mg 04/12/19 23:57 04/17/19 22:10 Ativan IV 1 mg Q3H PRN Administration Anxiety Losartan Potassium 100 mg 04/13/19 10:00 04/17/19 09:42 Cozaar PO 100 mg QDAY ANN MARIE Administration Methylprednisolone Sodium Succinate 60 mg 04/13/19 14:00 04/18/19 06:41 Solu-Medrol IV 60 mg Q8HR ANN MARIE Administration Metoprolol Tartrate 50 mg 04/15/19 22:00 04/17/19 21:37 Metoprolol PO 50 mg BID ANN MARIE Administration Nicotine 21 mg 04/13/19 10:00 04/17/19 09:39 Habitrol TD 21 mg DAILY ANN MARIE Administration Ondansetron HCl 4 mg 04/12/19 15:07 Zofran IV Q8H PRN Nausea And Vomiting Sodium Chloride 10 ml 04/12/19 22:00 04/17/19 21:39 Sodium Chloride Flush Syringe 10 Ml IV 10 ml BID ANN MARIE Administration Sodium Chloride 10 ml 04/12/19 15:07 Sodium Chloride Flush Syringe 10 Ml IV PRN PRN LINE FLUSH Nutrition/Malnutrition Assess - Dietary Evaluation Nutrition/Malnutrition Findings: Nutrition Notes Start: 04/17/19 10:48 Freq: Status: Active Protocol: Document 04/17/19 10:48 CT (Rec: 04/17/19 10:48 CT [id number]) Co-Sign 04/17/19 10:48 LP Nutrition Notes Need for Assessment generated from: LOS Initial or Follow up Brief Note Subjective/Other Information Pt eating 100% of meals per ADLs. Nutrition Intervention Anticipated Discharge Needs: Cardiac/Consistent CHO Revisit per MD consult or patient Sign Off request:
[2019-04-18] MEDS: FUROSEMIDE 40 MG TAB PO SCH (09:56)
[2019-04-18] MEDS: LOSARTAN 50 MG TAB PO SCH (09:56)
[2019-04-18] MEDS: CLOPIDOGREL 75 MG TAB PO SCH (09:57)
[2019-04-18] MEDS: cloNIDine 0.2 MG TAB PO SCH (09:57)
[2019-04-18] MEDS: NICOTINE 21 MG/24 HR PATCH TD SCH (09:57)
[2019-04-18] MEDS: amLODIPine 10 MG TAB PO SCH (09:57)
[2019-04-18] MEDS: METOPROLOL TARTRATE 50 MG TAB PO SCH ×2 (09:57→22:23)
[2019-04-18] MEDS: ASPIRIN 81 MG TAB CHEW PO SCH (09:57)
[2019-04-18] MEDS ORDERED: cloNIDine 0.1 MG TAB PO SCH (18:00)
--- NOTE | 2019-04-18 19:36 | Progress Note ---
Assessment and Plan Patient alert, awake. Patient says shortness of breath is better . Patient is on 2 litres O2. O2 saturation 95%. Patient is on I/V solumedrol and aerosolized bronchodilators. Patients blood sugar recorded 228 today. Patient is on Insulin coverage. Patient has blood gas on room air. ABG POC ABG pH 7.409 (7.35-7.45) 04/15/19 08:55 POC ABG pCO2 41.4 (35-45) 04/15/19 08:55 POC ABG pO2 68 (80-105) L 04/15/19 08:55 POC ABG HCO3 26.2 (22-26 mml/L) 04/15/19 08:55 POC ABG Total CO2 27 (23-27mmol/L) 04/15/19 08:55 POC ABG O2 Sat 94 04/15/19 08:55 - Patient Problems (1) Acute on chronic respiratory failure Current Visit: Yes Status: Acute Plan to address problem: O2 2 litres O2. BIPAP during night time and Prn for shortness of breath during day time. Albuterol/atrovent aerosol treatments q 6 hours. Continue I/V solumedrol. Continue S/C Lovenox. Recommend GI prophylaxis. (2) COPD exacerbation Current Visit: Yes Status: Acute Plan to address problem: O2 2 litres O2. BIPAP during night time and Prn for shortness of breath during day time. Albuterol/atrovent aerosol treatments q 6 hours. Continue I/V solumedrol. Continue S/C Lovenox. Recommend GI prophylaxis. . (3) Morbid obesity Current Visit: Yes Status: Chronic Plan to address problem: Recommend loose weight. Diet and exercise. Recommend to consult neurobiologist for weight reduction diet. (4) Obesity hypoventilation syndrome Current Visit: Yes Status: Acute Plan to address problem: BIPAP during night time and Prn for shortness of breath during day time. (5) Obstructive sleep apnea Current Visit: Yes Status: Chronic Plan to address problem: BIPAP during night time and Prn for shortness of breath during day time. (6) Accelerated hypertension Current Visit: Yes Status: Acute Plan to address problem: Management as per primary care. (7) Nicotine dependence Current Visit: Yes Status: Acute Qualifiers: Substance use status: in withdrawal Plan to address problem: Counselled to stop smoking. Subjective Date of service: 04/18/19 Principal diagnosis: HF; COPD exac Interval history: Patient alert, awake. Patient says shortness of breath is better . Patient is on 2 litres O2. O2 saturation 95%. Patient is on I/V solumedrol and aerosolized bronchodilators. Patients blood sugar recorded 228 today. Patient is on Insulin coverage. Patient has blood gas on room air. ABG POC ABG pH 7.409 (7.35-7.45) 04/15/19 08:55 POC ABG pCO2 41.4 (35-45) 04/15/19 08:55 POC ABG pO2 68 (80-105) L 04/15/19 08:55 POC ABG HCO3 26.2 (22-26 mml/L) 04/15/19 08:55 POC ABG Total CO2 27 (23-27mmol/L) 04/15/19 08:55 POC ABG O2 Sat 94 04/15/19 08:55 Objective Vital Signs - 12hr 04/18/19 04/18/19 04/18/19 09:48 12:02 17:18 Temperature 98.4 F 98.0 F Pulse Rate 66 72 Respiratory 22 20 Rate Blood Pressure 187/106 198/170 O2 Sat by Pulse 93 97 95 Oximetry Constitutional: no acute distress, alert Eyes: non-icteric ENT: oropharynx moist Neck: supple, no JVD Effort: mildly labored Ascultation: Bilateral: wheezes Cardiovascular: regular rate and rhythm, other (S1,S2) Gastrointestinal: normoactive bowel sounds, soft, non-tender Integumentary: normal Extremities: no cyanosis, no edema Neurologic: normal mental status, non-focal exam, pupils equal and round, CN II- XII normal Psychiatric: mood appropriate, affect normal CBC and BMP: 04/13/19 08:38 04/18/19 07:16 ABG, PT/INR, D-dimer: ABG POC ABG pH 7.409 (7.35-7.45) 04/15/19 08:55 POC ABG pCO2 41.4 (35-45) 04/15/19 08:55 POC ABG pO2 68 (80-105) L 04/15/19 08:55 POC ABG HCO3 26.2 (22-26 mml/L) 04/15/19 08:55 POC ABG Total CO2 27 (23-27mmol/L) 04/15/19 08:55 POC ABG O2 Sat 94 04/15/19 08:55 Abnormal lab findings: Abnormal Labs 04/12/19 04/12/19 04/12/19 12:34 12:34 12:34 Hgb 9.2 L MCV 64 L MCH 19 L RDW 22.1 H Lymph % (Auto) Eos % (Auto) 9.3 H Lymph # Eos # 0.6 H Seg Neutrophils % POC ABG pO2 Sodium Chloride Carbon Dioxide 20 L BUN 19 H Creatinine 0.6 L Glucose 103 H POC Glucose Magnesium Alkaline Phosphatase 155 H NT-Pro-B Natriuret Pep 989.6 H Albumin 3.8 L 04/12/19 04/12/19 04/13/19 20:51 21:48 07:37 Hgb MCV MCH RDW Lymph % (Auto) Eos % (Auto) Lymph # Eos # Seg Neutrophils % POC ABG pO2 Sodium Chloride Carbon Dioxide BUN Creatinine Glucose POC Glucose 180 H 153 H Magnesium 2.40 H Alkaline Phosphatase NT-Pro-B Natriuret Pep Albumin 04/13/19 04/13/19 04/13/19 08:38 08:38 12:23 Hgb 9.3 L MCV 64 L MCH 19 L RDW 22.1 H Lymph % (Auto) 8.8 L Eos % (Auto) Lymph # 0.7 L Eos # Seg Neutrophils % 85.5 H POC ABG pO2 Sodium Chloride Carbon Dioxide 19 L BUN 27 H Creatinine Glucose 149 H POC Glucose 412 H Magnesium Alkaline Phosphatase NT-Pro-B Natriuret Pep Albumin 04/13/19 04/13/19 04/14/19 17:01 21:31 05:32 Hgb MCV MCH RDW Lymph % (Auto) Eos % (Auto) Lymph # Eos # Seg Neutrophils % POC ABG pO2 Sodium Chloride Carbon Dioxide BUN 30 H Creatinine Glucose 210 H POC Glucose 131 H 274 H Magnesium Alkaline Phosphatase NT-Pro-B Natriuret Pep Albumin 04/14/19 04/14/19 04/14/19 07:46 11:30 16:09 Hgb MCV MCH RDW Lymph % (Auto) Eos % (Auto) Lymph # Eos # Seg Neutrophils % POC ABG pO2 Sodium Chloride Carbon Dioxide BUN Creatinine Glucose POC Glucose 240 H 288 H 500 H Magnesium Alkaline Phosphatase NT-Pro-B Natriuret Pep Albumin 04/14/19 04/14/19 04/15/19 16:48 21:24 07:29 Hgb MCV MCH RDW Lymph % (Auto) Eos % (Auto) Lymph # Eos # Seg Neutrophils % POC ABG pO2 Sodium Chloride Carbon Dioxide BUN Creatinine Glucose 388 H POC Glucose 386 H 187 H Magnesium Alkaline Phosphatase NT-Pro-B Natriuret Pep Albumin 04/15/19 04/15/19 04/15/19 08:55 13:02 16:35 Hgb MCV MCH RDW Lymph % (Auto) Eos % (Auto) Lymph # Eos # Seg Neutrophils % POC ABG pO2 68 L Sodium Chloride Carbon Dioxide BUN Creatinine Glucose POC Glucose 218 H 278 H Magnesium Alkaline Phosphatase NT-Pro-B Natriuret Pep Albumin 04/15/19 04/16/19 04/16/19 22:22 04:46 08:13 Hgb MCV MCH RDW Lymph % (Auto) Eos % (Auto) Lymph # Eos # Seg Neutrophils % POC ABG pO2 Sodium Chloride 97.6 L Carbon Dioxide BUN 36 H Creatinine Glucose 258 H POC Glucose 304 H 239 H Magnesium Alkaline Phosphatase NT-Pro-B Natriuret Pep Albumin 04/16/19 04/16/19 04/16/19 12:05 16:51 21:59 Hgb MCV MCH RDW Lymph % (Auto) Eos % (Auto) Lymph # Eos # Seg Neutrophils % POC ABG pO2 Sodium Chloride Carbon Dioxide BUN Creatinine Glucose POC Glucose 261 H 285 H 317 H Magnesium Alkaline Phosphatase NT-Pro-B Natriuret Pep Albumin 04/17/19 04/17/19 04/17/19 07:38 11:28 11:32 Hgb MCV MCH RDW Lymph % (Auto) Eos % (Auto) Lymph # Eos # Seg Neutrophils % POC ABG pO2 Sodium 134 L Chloride 94.1 L Carbon Dioxide BUN 36 H Creatinine Glucose 352 H POC Glucose 181 H 349 H Magnesium Alkaline Phosphatase NT-Pro-B Natriuret Pep Albumin 04/17/19 04/17/19 04/18/19 16:18 21:22 07:16 Hgb MCV MCH RDW Lymph % (Auto) Eos % (Auto) Lymph # Eos # Seg Neutrophils % POC ABG pO2 Sodium 135 L Chloride 94.1 L Carbon Dioxide BUN 34 H Creatinine Glucose 255 H POC Glucose 316 H 374 H Magnesium Alkaline Phosphatase NT-Pro-B Natriuret Pep Albumin 04/18/19 04/18/19 04/18/19 07:42 11:42 16:44 Hgb MCV MCH RDW Lymph % (Auto) Eos % (Auto) Lymph # Eos # Seg Neutrophils % POC ABG pO2 Sodium Chloride Carbon Dioxide BUN Creatinine Glucose POC Glucose 242 H 200 H 228 H Magnesium Alkaline Phosphatase NT-Pro-B Natriuret Pep Albumin
[2019-04-18] MEDS: ENOXAPARIN 40 MG/0.4 ML INJ SUB-Q SCH (22:23)
[2019-04-18] MEDS: LORazepam 2 MG/ML VIAL IV PRN (22:27)
[2019-04-18] MEDS: INSULIN GLARGINE 100 UNITS/ML SUB-Q SCH (22:28)
[2019-04-19] MEDS: hydrALAZINE 100 MG TAB PO SCH ×3 (05:12→22:26)
[2019-04-19] MEDS: cloNIDine 0.1 MG TAB PO SCH ×3 (05:12→22:31)
[2019-04-19] MEDS: methylPREDNISolone Sod Succinate 125 MG/2 ML INJ IV SCH ×3 (05:13→22:26)
[2019-04-19] MEDS: ACETAMINOPHEN 325 MG TAB PO PRN (06:57)
[2019-04-19] MEDS: hydrALAZINE 20 MG/1 ML INJ IV PRN ×2 (06:58→19:37)
[2019-04-19] MEDS: INSULIN LISPRO 100 UNIT/ML SUB-Q SCH ×4 (07:30→22:27)
--- NOTE | 2019-04-19 09:09 | Progress Note ---
Assessment and Plan Assessment and plan: Acute HFrEF. Cont IV diuresis per Cardiology. ECHO revealed - EF 35-40%, mild LVH, restrictive diastolic filling, moderate pulm HTN. Echo done 06/2018 showed EF 45-50%, mod LVH. Cardiology following Acute COPD exacerbation. Cont steroids, bronchodilators/nebs. Hypertensive urgency. BP still uncontrolled Increased clonidine to 0.3mg bid Increased hydralazine to 20mg iv prn Today , increase Hydralazine to 100mg tid CAD. hx of stent. Cont per Cards DMII. Accuchecks and SSRI. Increase Lantus. Attempt to wean steroids. HLD. Cont statin Morbid obesity. Pt will be couseled on weight loss and exercise Tobacco abuse. Pt counseled on cessation History Interval history: Less Shortness of breath No chest pain Hospitalist Physical - Physical exam Narrative exam: Gen: Not in acute distress, lying in bed HEENT: Normocephalic, atraumatic Neck: supple, no JVD Heart: S1 and S2 reg, no murmurs, rubs or gallop Lungs: Clear to auscultation bilaterally, Abd: soft, nontender, normal bowel sounds Ext: No edema, no clubbing, no cyanosis Neuro: Awake, alert, oriented X 3, moves all ext - Constitutional Vitals: Temp Pulse Resp BP Pulse Ox 98.1 F 60 18 192/94 96 04/18/19 20:15 04/19/19 06:58 04/19/19 06:57 04/19/19 06:58 04/19/19 08:17 General appearance: Present: obese Results - Labs CBC & Chem 7: 04/13/19 08:38 04/18/19 07:16 Labs: Laboratory Last Values WBC 7.4 K/mm3 (4.5-11.0) 04/13/19 08:38 RBC 4.82 M/mm3 (3.65-5.03) 04/13/19 08:38 Hgb 9.3 gm/dl (10.1-14.3) L 04/13/19 08:38 Hct 31.0 % (30.3-42.9) 04/13/19 08:38 MCV 64 fl (79-97) L 04/13/19 08:38 MCH 19 pg (28-32) L 04/13/19 08:38 MCHC 30 % (30-34) 04/13/19 08:38 RDW 22.1 % (13.2-15.2) H 04/13/19 08:38 Plt Count 337 K/mm3 (140-440) 04/13/19 08:38 Lymph % (Auto) 8.8 % (13.4-35.0) L 04/13/19 08:38 [place] % (Auto) 5.3 % (0.0-7.3) 04/13/19 08:38 Eos % (Auto) 0.0 % (0.0-4.3) 04/13/19 08:38 Baso % (Auto) 0.4 % (0.0-1.8) 04/13/19 08:38 Lymph # 0.7 K/mm3 (1.2-5.4) L 04/13/19 08:38 [place] # 0.4 K/mm3 (0.0-0.8) 04/13/19 08:38 Eos # 0.0 K/mm3 (0.0-0.4) 04/13/19 08:38 Baso # 0.0 K/mm3 (0.0-0.1) 04/13/19 08:38 Seg Neutrophils % 85.5 % (40.0-70.0) H 04/13/19 08:38 Seg Neutrophils # 6.3 K/mm3 (1.8-7.7) 04/13/19 08:38 POC ABG pH 7.409 (7.35-7.45) 04/15/19 08:55 POC ABG pCO2 41.4 (35-45) 04/15/19 08:55 POC ABG pO2 68 (80-105) L 04/15/19 08:55 POC ABG HCO3 26.2 (22-26 mml/L) 04/15/19 08:55 POC ABG Total CO2 27 (23-27mmol/L) 04/15/19 08:55 POC ABG O2 Sat 94 04/15/19 08:55 POC ABG Base Excess 2 ((-2) - (+3)mmol/L) 04/15/19 08:55 FiO2 21 % 04/15/19 08:55 Sodium 135 mmol/L (137-145) L 04/18/19 07:16 Potassium 4.3 mmol/L (3.6-5.0) 04/18/19 07:16 Chloride 94.1 mmol/L (98-107) L 04/18/19 07:16 Carbon Dioxide 25 mmol/L (22-30) 04/18/19 07:16 Anion Gap 20 mmol/L 04/18/19 07:16 BUN 34 mg/dL (7-17) H 04/18/19 07:16 Creatinine 0.8 mg/dL (0.7-1.2) 04/18/19 07:16 Estimated GFR > 60 ml/min 04/18/19 07:16 BUN/Creatinine Ratio 43 % 04/18/19 07:16 Glucose 255 mg/dL (65-100) H 04/18/19 07:16 POC Glucose 260 (70-105) H 04/19/19 08:19 Calcium 9.1 mg/dL (8.4-10.2) 04/18/19 07:16 Magnesium 2.40 mg/dL (1.7-2.3) H 04/12/19 20:51 Total Bilirubin 0.20 mg/dL (0.1-1.2) 04/12/19 12:34 AST 10 units/L (5-40) 04/12/19 12:34 ALT 8 units/L (7-56) 04/12/19 12:34 Alkaline Phosphatase 155 units/L (35-129) H 04/12/19 12:34 Troponin T < 0.010 ng/mL (0.00-0.029) 04/12/19 12:34 NT-Pro-B Natriuret Pep 989.6 pg/mL (0-900) H 04/12/19 12:34 Total Protein 7.7 g/dL (6.3-8.2) 04/12/19 12:34 Albumin 3.8 g/dL (3.9-5) L 04/12/19 12:34 Albumin/Globulin Ratio 1.0 % 04/12/19 12:34 TSH 0.417 mlU/mL (0.270-4.200) 04/12/19 20:51 Free T4 1.16 ng/dL (0.76-1.46) 04/12/19 20:51 Active Medications - Current Medications Current Medications: Generic Name Dose Route Start Last Admin Trade Name Freq PRN Reason Stop Dose Admin Acetaminophen 650 mg 04/12/19 15:07 04/19/19 06:57 Tylenol PO 650 mg Q4H PRN Administration Pain MILD(1-3)/Fever >100.5/ALAS Albuterol 2.5 mg 04/12/19 15:07 04/13/19 21:25 Proventil IH 2.5 mg Q4HRT PRN Administration Shortness Of Breath Amlodipine Besylate 10 mg 04/13/19 12:00 04/18/19 09:57 Amlodipine PO 10 mg QDAY ANN MARIE Administration Aspirin 81 mg 04/13/19 10:00 04/18/19 09:57 Baby Aspirin PO 81 mg QDAY ANN MARIE Administration Atorvastatin Calcium 40 mg 04/12/19 22:00 04/18/19 22:24 Lipitor PO 40 mg QHS ANN MARIE Administration Clonidine HCl 0.3 mg 04/19/19 06:00 04/19/19 05:12 Catapres PO 0.3 mg Q8H ANN MARIE Administration Clopidogrel Bisulfate 75 mg 04/13/19 10:00 04/18/19 09:57 Plavix PO 75 mg QDAY ANN MARIE Administration Enoxaparin Sodium 40 mg 04/12/19 22:00 04/18/19 22:23 Enoxaparin SUB-Q 40 mg QDAY@2200 ANN MARIE Administration Furosemide 40 mg 04/18/19 10:00 04/18/19 09:56 Lasix PO 40 mg QDAY ANN MARIE Administration Hydralazine HCl 20 mg 04/18/19 16:40 04/19/19 06:58 Apresoline IV 20 mg Q4H PRN Administration SBP>180 or DBP>110 Hydralazine HCl 100 mg 04/19/19 06:00 04/19/19 05:12 Apresoline PO 100 mg Q8HR ANN MARIE Administration Insulin Glargine 15 units 04/17/19 22:00 04/18/19 22:28 Lantus SUB-Q 15 units QHS ANN MARIE Administration Insulin Human Lispro 0 unit 04/13/19 00:01 04/19/19 07:30 Humalog SUB-Q 4 unit ACHS ANN MARIE Administration Protocol Isosorbide Mononitrate 60 mg 04/14/19 10:00 04/18/19 09:57 Imdur PO 60 mg QDAY ANN MARIE Administration Lorazepam 1 mg 04/12/19 23:57 04/18/19 22:27 Ativan IV 1 mg Q3H PRN Administration Anxiety Losartan Potassium 100 mg 04/13/19 10:00 04/18/19 09:56 Cozaar PO 100 mg QDAY ANN MARIE Administration Methylprednisolone Sodium Succinate 60 mg 04/13/19 14:00 04/19/19 05:13 Solu-Medrol IV 60 mg Q8HR ANN MARIE Administration Metoprolol Tartrate 50 mg 04/15/19 22:00 04/18/19 22:23 Metoprolol PO 50 mg BID ANN MARIE Administration Nicotine 21 mg 04/13/19 10:00 04/18/19 09:57 Habitrol TD 21 mg DAILY ANN MARIE Administration Ondansetron HCl 4 mg 04/12/19 15:07 04/18/19 17:55 Zofran IV 4 mg Q8H PRN Administration Nausea And Vomiting Sodium Chloride 10 ml 04/12/19 22:00 04/18/19 22:24 Sodium Chloride Flush Syringe 10 Ml IV 10 ml BID ANN MARIE Administration Sodium Chloride 10 ml 04/12/19 15:07 Sodium Chloride Flush Syringe 10 Ml IV PRN PRN LINE FLUSH Nutrition/Malnutrition Assess - Dietary Evaluation Nutrition/Malnutrition Findings: Nutrition Notes Start: 04/17/19 10:48 Freq: Status: Active Protocol: Document 04/17/19 10:48 CT (Rec: 04/17/19 10:48 CT [id number]) Co-Sign 04/17/19 10:48 LP Nutrition Notes Need for Assessment generated from: LOS Initial or Follow up Brief Note Subjective/Other Information Pt eating 100% of meals per ADLs. Nutrition Intervention Anticipated Discharge Needs: Cardiac/Consistent CHO Revisit per MD consult or patient Sign Off request:
[2019-04-19] MEDS: amLODIPine 10 MG TAB PO SCH (09:37)
[2019-04-19] MEDS: LOSARTAN 50 MG TAB PO SCH (09:37)
[2019-04-19] MEDS: FUROSEMIDE 40 MG TAB PO SCH (09:37)
[2019-04-19] MEDS: CLOPIDOGREL 75 MG TAB PO SCH (09:37)
[2019-04-19] MEDS: ASPIRIN 81 MG TAB CHEW PO SCH (09:37)
[2019-04-19] MEDS: NICOTINE 21 MG/24 HR PATCH TD SCH (09:38)
[2019-04-19] MEDS: METOPROLOL TARTRATE 50 MG TAB PO SCH ×2 (09:38→22:24)
--- NOTE | 2019-04-19 19:29 | Progress Note ---
Assessment and Plan Patient alert, awake. Patient says shortness of breath is better . Patient is on 2 litres O2. O2 saturation 98%. Patient is on I/V solumedrol and aerosolized bronchodilators. Patients blood sugar recorded 259 today. Patient is on Insulin coverage. Patient has blood gas on room air. ABG POC ABG pH 7.409 (7.35-7.45) 04/15/19 08:55 POC ABG pCO2 41.4 (35-45) 04/15/19 08:55 POC ABG pO2 68 (80-105) L 04/15/19 08:55 POC ABG HCO3 26.2 (22-26 mml/L) 04/15/19 08:55 POC ABG Total CO2 27 (23-27mmol/L) 04/15/19 08:55 POC ABG O2 Sat 94 04/15/19 08:55 - Patient Problems (1) Acute on chronic respiratory failure Current Visit: Yes Status: Acute Plan to address problem: Patient is on 2 litres o2. Albuterol/atrovent aerosol treatments q 6 hours. Continue I/V solumedrol. Continue S/C Lovenox. Recommend GI prophylaxis. (2) COPD exacerbation Current Visit: Yes Status: Acute Plan to address problem: O2 2 litres O2. BIPAP during night time and Prn for shortness of breath during day time. Albuterol/atrovent aerosol treatments q 6 hours. Continue I/V solumedrol. Continue S/C Lovenox. Recommend GI prophylaxis. . (3) Morbid obesity Current Visit: Yes Status: Chronic Plan to address problem: Recommend loose weight. Diet and exercise. Recommend to consult supervisor fiber locking for weight reduction diet. (4) Obesity hypoventilation syndrome Current Visit: Yes Status: Acute Plan to address problem: BIPAP during night time and Prn for shortness of breath during day time. (5) Obstructive sleep apnea Current Visit: Yes Status: Chronic Plan to address problem: BIPAP during night time and Prn for shortness of breath during day time. (6) Accelerated hypertension Current Visit: Yes Status: Acute Plan to address problem: Management as per primary care. (7) Nicotine dependence Current Visit: Yes Status: Acute Qualifiers: Substance use status: in withdrawal Plan to address problem: Counselled to stop smoking. Subjective Date of service: 04/19/19 Principal diagnosis: HF; COPD exac Interval history: Patient alert, awake. Patient says shortness of breath is better . Patient is on 2 litres O2. O2 saturation 98%. Patient is on I/V solumedrol and aerosolized bronchodilators. Patients blood sugar recorded 259 today. Patient is on Insulin coverage. Patient has blood gas on room air. ABG POC ABG pH 7.409 (7.35-7.45) 04/15/19 08:55 POC ABG pCO2 41.4 (35-45) 04/15/19 08:55 POC ABG pO2 68 (80-105) L 04/15/19 08:55 POC ABG HCO3 26.2 (22-26 mml/L) 04/15/19 08:55 POC ABG Total CO2 27 (23-27mmol/L) 04/15/19 08:55 POC ABG O2 Sat 94 04/15/19 08:55 Objective Vital Signs - 12hr 04/19/19 04/19/19 04/19/19 08:17 12:01 17:19 Temperature 97.8 F 98.5 F Pulse Rate 68 70 Respiratory 22 22 Rate Blood Pressure 191/95 185/99 O2 Sat by Pulse 96 98 98 Oximetry Constitutional: no acute distress, alert Eyes: non-icteric ENT: oropharynx moist Neck: supple, no lymphadenopathy, no JVD Effort: mildly labored Ascultation: Bilateral: wheezes (Ocasional wheezing.) Cardiovascular: regular rate and rhythm, other (S1,S2) Gastrointestinal: normoactive bowel sounds, soft, non-tender Integumentary: normal Extremities: no cyanosis, no edema Neurologic: normal mental status, non-focal exam, pupils equal and round, CN II- XII normal Psychiatric: mood appropriate, affect normal CBC and BMP: 04/13/19 08:38 04/18/19 07:16 ABG, PT/INR, D-dimer: ABG POC ABG pH 7.409 (7.35-7.45) 04/15/19 08:55 POC ABG pCO2 41.4 (35-45) 04/15/19 08:55 POC ABG pO2 68 (80-105) L 04/15/19 08:55 POC ABG HCO3 26.2 (22-26 mml/L) 04/15/19 08:55 POC ABG Total CO2 27 (23-27mmol/L) 04/15/19 08:55 POC ABG O2 Sat 94 04/15/19 08:55 Abnormal lab findings: Abnormal Labs 04/12/19 04/12/19 04/12/19 12:34 12:34 12:34 Hgb 9.2 L MCV 64 L MCH 19 L RDW 22.1 H Lymph % (Auto) Eos % (Auto) 9.3 H Lymph # Eos # 0.6 H Seg Neutrophils % POC ABG pO2 Sodium Chloride Carbon Dioxide 20 L BUN 19 H Creatinine 0.6 L Glucose 103 H POC Glucose Magnesium Alkaline Phosphatase 155 H NT-Pro-B Natriuret Pep 989.6 H Albumin 3.8 L 04/12/19 04/12/19 04/13/19 20:51 21:48 07:37 Hgb MCV MCH RDW Lymph % (Auto) Eos % (Auto) Lymph # Eos # Seg Neutrophils % POC ABG pO2 Sodium Chloride Carbon Dioxide BUN Creatinine Glucose POC Glucose 180 H 153 H Magnesium 2.40 H Alkaline Phosphatase NT-Pro-B Natriuret Pep Albumin 04/13/19 04/13/19 04/13/19 08:38 08:38 12:23 Hgb 9.3 L MCV 64 L MCH 19 L RDW 22.1 H Lymph % (Auto) 8.8 L Eos % (Auto) Lymph # 0.7 L Eos # Seg Neutrophils % 85.5 H POC ABG pO2 Sodium Chloride Carbon Dioxide 19 L BUN 27 H Creatinine Glucose 149 H POC Glucose 412 H Magnesium Alkaline Phosphatase NT-Pro-B Natriuret Pep Albumin 04/13/19 04/13/19 04/14/19 17:01 21:31 05:32 Hgb MCV MCH RDW Lymph % (Auto) Eos % (Auto) Lymph # Eos # Seg Neutrophils % POC ABG pO2 Sodium Chloride Carbon Dioxide BUN 30 H Creatinine Glucose 210 H POC Glucose 131 H 274 H Magnesium Alkaline Phosphatase NT-Pro-B Natriuret Pep Albumin 04/14/19 04/14/19 04/14/19 07:46 11:30 16:09 Hgb MCV MCH RDW Lymph % (Auto) Eos % (Auto) Lymph # Eos # Seg Neutrophils % POC ABG pO2 Sodium Chloride Carbon Dioxide BUN Creatinine Glucose POC Glucose 240 H 288 H 500 H Magnesium Alkaline Phosphatase NT-Pro-B Natriuret Pep Albumin 04/14/19 04/14/19 04/15/19 16:48 21:24 07:29 Hgb MCV MCH RDW Lymph % (Auto) Eos % (Auto) Lymph # Eos # Seg Neutrophils % POC ABG pO2 Sodium Chloride Carbon Dioxide BUN Creatinine Glucose 388 H POC Glucose 386 H 187 H Magnesium Alkaline Phosphatase NT-Pro-B Natriuret Pep Albumin 04/15/19 04/15/19 04/15/19 08:55 13:02 16:35 Hgb MCV MCH RDW Lymph % (Auto) Eos % (Auto) Lymph # Eos # Seg Neutrophils % POC ABG pO2 68 L Sodium Chloride Carbon Dioxide BUN Creatinine Glucose POC Glucose 218 H 278 H Magnesium Alkaline Phosphatase NT-Pro-B Natriuret Pep Albumin 04/15/19 04/16/19 04/16/19 22:22 04:46 08:13 Hgb MCV MCH RDW Lymph % (Auto) Eos % (Auto) Lymph # Eos # Seg Neutrophils % POC ABG pO2 Sodium Chloride 97.6 L Carbon Dioxide BUN 36 H Creatinine Glucose 258 H POC Glucose 304 H 239 H Magnesium Alkaline Phosphatase NT-Pro-B Natriuret Pep Albumin 04/16/19 04/16/19 04/16/19 12:05 16:51 21:59 Hgb MCV MCH RDW Lymph % (Auto) Eos % (Auto) Lymph # Eos # Seg Neutrophils % POC ABG pO2 Sodium Chloride Carbon Dioxide BUN Creatinine Glucose POC Glucose 261 H 285 H 317 H Magnesium Alkaline Phosphatase NT-Pro-B Natriuret Pep Albumin 04/17/19 04/17/19 04/17/19 07:38 11:28 11:32 Hgb MCV MCH RDW Lymph % (Auto) Eos % (Auto) Lymph # Eos # Seg Neutrophils % POC ABG pO2 Sodium 134 L Chloride 94.1 L Carbon Dioxide BUN 36 H Creatinine Glucose 352 H POC Glucose 181 H 349 H Magnesium Alkaline Phosphatase NT-Pro-B Natriuret Pep Albumin 04/17/19 04/17/19 04/18/19 16:18 21:22 07:16 Hgb MCV MCH RDW Lymph % (Auto) Eos % (Auto) Lymph # Eos # Seg Neutrophils % POC ABG pO2 Sodium 135 L Chloride 94.1 L Carbon Dioxide BUN 34 H Creatinine Glucose 255 H POC Glucose 316 H 374 H Magnesium Alkaline Phosphatase NT-Pro-B Natriuret Pep Albumin 04/18/19 04/18/19 04/18/19 07:42 11:42 16:44 Hgb MCV MCH RDW Lymph % (Auto) Eos % (Auto) Lymph # Eos # Seg Neutrophils % POC ABG pO2 Sodium Chloride Carbon Dioxide BUN Creatinine Glucose POC Glucose 242 H 200 H 228 H Magnesium Alkaline Phosphatase NT-Pro-B Natriuret Pep Albumin 04/18/19 04/19/19 04/19/19 21:23 08:19 11:33 Hgb MCV MCH RDW Lymph % (Auto) Eos % (Auto) Lymph # Eos # Seg Neutrophils % POC ABG pO2 Sodium Chloride Carbon Dioxide BUN Creatinine Glucose POC Glucose 265 H 260 H 293 H Magnesium Alkaline Phosphatase NT-Pro-B Natriuret Pep Albumin 04/19/19 16:51 Hgb MCV MCH RDW Lymph % (Auto) Eos % (Auto) Lymph # Eos # Seg Neutrophils % POC ABG pO2 Sodium Chloride Carbon Dioxide BUN Creatinine Glucose POC Glucose 259 H Magnesium Alkaline Phosphatase NT-Pro-B Natriuret Pep Albumin
[2019-04-19] MEDS ORDERED: INSULIN GLARGINE 100 UNITS/ML SUB-Q SCH (22:00)
[2019-04-19] MEDS: LORazepam 2 MG/ML VIAL IV PRN (22:27)
[2019-04-19] MEDS: ENOXAPARIN 40 MG/0.4 ML INJ SUB-Q SCH (22:27)
[2019-04-20] MEDS: hydrALAZINE 100 MG TAB PO SCH ×2 (05:43→13:06)
[2019-04-20] MEDS: cloNIDine 0.1 MG TAB PO SCH ×2 (05:43→13:05)
[2019-04-20] MEDS: methylPREDNISolone Sod Succinate 125 MG/2 ML INJ IV SCH ×2 (05:44→13:06)
[2019-04-20] MEDS: INSULIN LISPRO 100 UNIT/ML SUB-Q SCH ×2 (07:30→11:30)
[2019-04-20] MEDS: CLOPIDOGREL 75 MG TAB PO SCH (09:40)
[2019-04-20] MEDS: NICOTINE 21 MG/24 HR PATCH TD SCH (09:40)
[2019-04-20] MEDS: LOSARTAN 50 MG TAB PO SCH (09:40)
[2019-04-20] MEDS: amLODIPine 10 MG TAB PO SCH (09:40)
[2019-04-20] MEDS: ASPIRIN 81 MG TAB CHEW PO SCH (09:41)
[2019-04-20] MEDS: METOPROLOL TARTRATE 50 MG TAB PO SCH (09:41)
[2019-04-20] MEDS: FUROSEMIDE 40 MG TAB PO SCH (09:42)
--- NOTE | 2019-04-20 10:44 | Progress Note ---
Hospitalist Physical - Constitutional Vitals: Temp Pulse Resp BP Pulse Ox 97.9 F 65 20 188/102 93 04/20/19 05:12 04/20/19 09:41 04/20/19 05:12 04/20/19 09:41 04/20/19 05:12 General appearance: Present: obese Results - Labs CBC & Chem 7: 04/13/19 08:38 04/18/19 07:16 Labs: Laboratory Last Values WBC 7.4 K/mm3 (4.5-11.0) 04/13/19 08:38 RBC 4.82 M/mm3 (3.65-5.03) 04/13/19 08:38 Hgb 9.3 gm/dl (10.1-14.3) L 04/13/19 08:38 Hct 31.0 % (30.3-42.9) 04/13/19 08:38 MCV 64 fl (79-97) L 04/13/19 08:38 MCH 19 pg (28-32) L 04/13/19 08:38 MCHC 30 % (30-34) 04/13/19 08:38 RDW 22.1 % (13.2-15.2) H 04/13/19 08:38 Plt Count 337 K/mm3 (140-440) 04/13/19 08:38 Lymph % (Auto) 8.8 % (13.4-35.0) L 04/13/19 08:38 [place] % (Auto) 5.3 % (0.0-7.3) 04/13/19 08:38 Eos % (Auto) 0.0 % (0.0-4.3) 04/13/19 08:38 Baso % (Auto) 0.4 % (0.0-1.8) 04/13/19 08:38 Lymph # 0.7 K/mm3 (1.2-5.4) L 04/13/19 08:38 [place] # 0.4 K/mm3 (0.0-0.8) 04/13/19 08:38 Eos # 0.0 K/mm3 (0.0-0.4) 04/13/19 08:38 Baso # 0.0 K/mm3 (0.0-0.1) 04/13/19 08:38 Seg Neutrophils % 85.5 % (40.0-70.0) H 04/13/19 08:38 Seg Neutrophils # 6.3 K/mm3 (1.8-7.7) 04/13/19 08:38 POC ABG pH 7.409 (7.35-7.45) 04/15/19 08:55 POC ABG pCO2 41.4 (35-45) 04/15/19 08:55 POC ABG pO2 68 (80-105) L 04/15/19 08:55 POC ABG HCO3 26.2 (22-26 mml/L) 04/15/19 08:55 POC ABG Total CO2 27 (23-27mmol/L) 04/15/19 08:55 POC ABG O2 Sat 94 04/15/19 08:55 POC ABG Base Excess 2 ((-2) - (+3)mmol/L) 04/15/19 08:55 FiO2 21 % 04/15/19 08:55 Sodium 135 mmol/L (137-145) L 04/18/19 07:16 Potassium 4.3 mmol/L (3.6-5.0) 04/18/19 07:16 Chloride 94.1 mmol/L (98-107) L 04/18/19 07:16 Carbon Dioxide 25 mmol/L (22-30) 04/18/19 07:16 Anion Gap 20 mmol/L 04/18/19 07:16 BUN 34 mg/dL (7-17) H 04/18/19 07:16 Creatinine 0.8 mg/dL (0.7-1.2) 04/18/19 07:16 Estimated GFR > 60 ml/min 04/18/19 07:16 BUN/Creatinine Ratio 43 % 04/18/19 07:16 Glucose 255 mg/dL (65-100) H 04/18/19 07:16 POC Glucose 198 (70-105) H 04/20/19 08:04 Calcium 9.1 mg/dL (8.4-10.2) 04/18/19 07:16 Magnesium 2.40 mg/dL (1.7-2.3) H 04/12/19 20:51 Total Bilirubin 0.20 mg/dL (0.1-1.2) 04/12/19 12:34 AST 10 units/L (5-40) 04/12/19 12:34 ALT 8 units/L (7-56) 04/12/19 12:34 Alkaline Phosphatase 155 units/L (35-129) H 04/12/19 12:34 Troponin T < 0.010 ng/mL (0.00-0.029) 04/12/19 12:34 NT-Pro-B Natriuret Pep 989.6 pg/mL (0-900) H 04/12/19 12:34 Total Protein 7.7 g/dL (6.3-8.2) 04/12/19 12:34 Albumin 3.8 g/dL (3.9-5) L 04/12/19 12:34 Albumin/Globulin Ratio 1.0 % 04/12/19 12:34 TSH 0.417 mlU/mL (0.270-4.200) 04/12/19 20:51 Free T4 1.16 ng/dL (0.76-1.46) 04/12/19 20:51 Active Medications - Current Medications Current Medications: Generic Name Dose Route Start Last Admin Trade Name Freq PRN Reason Stop Dose Admin Acetaminophen 650 mg 04/12/19 15:07 04/19/19 06:57 Tylenol PO 650 mg Q4H PRN Administration Pain MILD(1-3)/Fever >100.5/ALAS Albuterol 2.5 mg 04/12/19 15:07 04/13/19 21:25 Proventil IH 2.5 mg Q4HRT PRN Administration Shortness Of Breath Amlodipine Besylate 10 mg 04/13/19 12:00 04/20/19 09:40 Amlodipine PO 10 mg QDAY ANN MARIE Administration Aspirin 81 mg 04/13/19 10:00 04/20/19 09:41 Baby Aspirin PO 81 mg QDAY ANN MARIE Administration Atorvastatin Calcium 40 mg 04/12/19 22:00 04/19/19 22:26 Lipitor PO 40 mg QHS ANN MARIE Administration Clonidine HCl 0.3 mg 04/19/19 06:00 04/20/19 05:43 Catapres PO 0.3 mg Q8H ANN MARIE Administration Clopidogrel Bisulfate 75 mg 04/13/19 10:00 04/20/19 09:40 Plavix PO 75 mg QDAY ANN MARIE Administration Enoxaparin Sodium 40 mg 04/12/19 22:00 04/19/19 22:27 Enoxaparin SUB-Q 40 mg QDAY@2200 ANN MARIE Administration Furosemide 40 mg 04/18/19 10:00 04/20/19 09:42 Lasix PO 40 mg QDAY ANN MARIE Administration Hydralazine HCl 20 mg 04/18/19 16:40 04/19/19 19:37 Apresoline IV 20 mg Q4H PRN Administration SBP>180 or DBP>110 Hydralazine HCl 100 mg 04/19/19 06:00 04/20/19 05:43 Apresoline PO 100 mg Q8HR ANN MARIE Administration Insulin Glargine 25 units 04/19/19 22:00 04/19/19 22:28 Lantus SUB-Q 25 units QHS ANN MARIE Administration Insulin Human Lispro 0 unit 04/13/19 00:01 04/20/19 07:30 Humalog SUB-Q 2 unit ACHS ANN MARIE Administration Protocol Isosorbide Mononitrate 60 mg 04/14/19 10:00 04/20/19 09:41 Imdur PO 60 mg QDAY ANN MARIE Administration Lorazepam 1 mg 04/12/19 23:57 04/19/19 22:27 Ativan IV 1 mg Q3H PRN Administration Anxiety Losartan Potassium 100 mg 04/13/19 10:00 04/20/19 09:40 Cozaar PO 100 mg QDAY ANN MARIE Administration Methylprednisolone Sodium Succinate 60 mg 04/13/19 14:00 04/20/19 05:44 Solu-Medrol IV 60 mg Q8HR ANN MARIE Administration Metoprolol Tartrate 50 mg 04/15/19 22:00 04/20/19 09:41 Metoprolol PO 50 mg BID ANN MARIE Administration Nicotine 21 mg 04/13/19 10:00 04/20/19 09:40 Habitrol TD 21 mg DAILY ANN MARIE Administration Ondansetron HCl 4 mg 04/12/19 15:07 04/18/19 17:55 Zofran IV 4 mg Q8H PRN Administration Nausea And Vomiting Sodium Chloride 10 ml 04/12/19 22:00 04/20/19 09:42 Sodium Chloride Flush Syringe 10 Ml IV 10 ml BID ANN MARIE Administration Sodium Chloride 10 ml 04/12/19 15:07 Sodium Chloride Flush Syringe 10 Ml IV PRN PRN LINE FLUSH Nutrition/Malnutrition Assess - Dietary Evaluation Nutrition/Malnutrition Findings: Nutrition Notes Start: 04/17/19 10:48 Freq: Status: Active Protocol: Document 04/19/19 11:23 LP (Rec: 04/19/19 11:25 LP [id number]) Nutrition Notes Need for Assessment generated from: MD Order,Education Initial or Follow up Brief Note Current Diagnosis COPD,Diabetes,Hypertension, Heart Failure Subjective/Other Information Pt states not following diet at home.Pt wanting to change diet. #1 Nutrition Diagnosis Food and nutrition-related knowledge deficit Etiology DM and HTN diet As Evidenced by Signs and Symptoms Pt states not following diet at home Nutrition Intervention Teaching Recipient Patient Learning Readiness Good Teaching Methods Discussion,Handout Response to Teaching Verbalize understanding Education Handouts Provided Consistent CHO and HTN diet Barriers to Learning No Barriers RD phone number provided Yes Patient aware of follow up options Yes Revisit per MD consult or patient Sign Off request:
--- NOTE | 2019-04-20 11:58 | Progress Note ---
Assessment and Plan Currently stable cardiac status. BPs remain elevated- hydralazine increased per primary. Pt may discharge home from cardiology standpoint on present cardiac regimen. Recommend follow up in our office with Dr. Hernandez within 3-5 days ([phone]). Pt states she will call and make her own appointment. The patient has been seen in conjunction with Dr. Matute who agrees with the assessment and plan of care. - Patient Problems (1) Acute HFrEF (heart failure with reduced ejection fraction) Current Visit: Yes Status: Acute (2) Cardiomyopathy Current Visit: Yes Status: Chronic (3) COPD exacerbation Current Visit: Yes Status: Acute (4) Acute on chronic respiratory failure Current Visit: Yes Status: Acute (5) Accelerated hypertension Current Visit: Yes Status: Acute (6) CAD (coronary artery disease) Current Visit: Yes Status: Chronic Qualifiers: Coronary Disease-Associated Artery/Lesion type: [place] artery [place] vs. transplanted heart: [place] heart Associated angina: with stable angina Qualified Code(s): I25.118 - Atherosclerotic heart disease of [place] coronary artery with other forms of angina pectoris (7) Stented coronary artery Current Visit: Yes Status: Chronic (8) Diabetes Current Visit: Yes Status: Chronic (9) Pleuritic chest pain Current Visit: Yes Status: Acute (10) Hyperlipidemia Current Visit: Yes Status: Chronic Qualifiers: Hyperlipidemia type: mixed hyperlipidemia Qualified Code(s): E78.2 - Mixed hyperlipidemia (11) Morbid obesity Current Visit: Yes Status: Chronic (12) Obstructive sleep apnea Current Visit: Yes Status: Chronic (13) Tobacco abuse Current Visit: Yes Status: Chronic (14) Medical non-compliance Current Visit: Yes Status: Chronic Subjective Date of service: 04/20/19 Principal diagnosis: HF; COPD exac Interval history: pt resting up in chair, feeling better. wheezing has resolved. in SR on tele. Objective Last Vital Signs Temp 97.9 F 04/20/19 05:12 Pulse 65 04/20/19 09:41 Resp 20 04/20/19 05:12 BP 188/102 04/20/19 09:41 Pulse Ox 93 04/20/19 05:12 - Physical Examination General: No Apparent Distress HEENT: Positive: PERRL, Normocephaly, Mucus Membranes Moist Neck: Positive: neck supple, trachea midline Cardiac: Positive: Reg Rate and Rhythm, S1/S2 Lungs: Positive: Decreased Breath Sounds, Oxygen Neuro: Positive: Grossly Intact Abdomen: Negative: Tender Skin: Negative: Rash Musculoskeletal: No Pain Extremities: Present: edema (trace BLE) - Imaging and Cardiology EKG: report reviewed, image reviewed Echo: report reviewed (EF 35-40%, mild LVH, restrictive diastolic filling, moderate pulm HTN. Echo done 06/2018 showed EF 45-50%, mod LVH. ) Cardiac cath: report reviewed ( 06/2018 with PCI of ramus with DIANELYS, left main patent, LAD patent, RCA moderate to severe tortuosity with mid stent patent, circ patent, OM1 50% with ramus 100% with successful PCI, acute diastolic dysfunction. ) - EKG Sinus rhythms and dysrhythmias: sinus rhythm
[2019-04-20] MEDS: LORazepam 2 MG/ML VIAL IV PRN (13:23)
--- NOTE | 2019-04-20 13:34 | Progress Note ---
Assessment and Plan Patient alert, awake. Patient says shortness of breath is better . Patient is on 2 litres O2. O2 saturation 99%. Patient is on I/V solumedrol and aerosolized bronchodilators. Patients blood sugar recorded 230 today. Patient is on Insulin coverage. Patient has blood gas on room air. ABG POC ABG pH 7.409 (7.35-7.45) 04/15/19 08:55 POC ABG pCO2 41.4 (35-45) 04/15/19 08:55 POC ABG pO2 68 (80-105) L 04/15/19 08:55 POC ABG HCO3 26.2 (22-26 mml/L) 04/15/19 08:55 POC ABG Total CO2 27 (23-27mmol/L) 04/15/19 08:55 POC ABG O2 Sat 94 04/15/19 08:55 Patients blood pressure is high. primary care waiting for the blood pressure to come down for discharge. If patient going home, recommend to come to the office within 1 week for pulmonary follow up. - Patient Problems (1) Acute on chronic respiratory failure Current Visit: Yes Status: Acute Plan to address problem: Patient is on 2 litres o2. Albuterol/atrovent aerosol treatments q 6 hours. Continue I/V solumedrol. Continue S/C Lovenox. Recommend GI prophylaxis. (2) COPD exacerbation Current Visit: Yes Status: Acute Plan to address problem: O2 2 litres O2. BIPAP during night time and Prn for shortness of breath during day time. Albuterol/atrovent aerosol treatments q 6 hours. Continue I/V solumedrol. Continue S/C Lovenox. Recommend GI prophylaxis. . (3) Morbid obesity Current Visit: Yes Status: Chronic Plan to address problem: Recommend loose weight. Diet and exercise. Recommend to consult front office spec for weight reduction diet. (4) Obesity hypoventilation syndrome Current Visit: Yes Status: Acute Plan to address problem: BIPAP during night time and Prn for shortness of breath during day time. (5) Obstructive sleep apnea Current Visit: Yes Status: Chronic Plan to address problem: BIPAP during night time and Prn for shortness of breath during day time. (6) Accelerated hypertension Current Visit: Yes Status: Acute Plan to address problem: Management as per primary care. (7) Nicotine dependence Current Visit: Yes Status: Acute Qualifiers: Substance use status: in withdrawal Plan to address problem: Counselled to stop smoking. Subjective Date of service: 04/20/19 Principal diagnosis: HF; COPD exac Interval history: Patient alert, awake. Patient says shortness of breath is better . Patient is on 2 litres O2. O2 saturation 99%. Patient is on I/V solumedrol and aerosolized bronchodilators. Patients blood sugar recorded 230 today. Patient is on Insulin coverage. Patient has blood gas on room air. ABG POC ABG pH 7.409 (7.35-7.45) 04/15/19 08:55 POC ABG pCO2 41.4 (35-45) 04/15/19 08:55 POC ABG pO2 68 (80-105) L 04/15/19 08:55 POC ABG HCO3 26.2 (22-26 mml/L) 04/15/19 08:55 POC ABG Total CO2 27 (23-27mmol/L) 04/15/19 08:55 POC ABG O2 Sat 94 04/15/19 08:55 Patients blood pressure is high. primary care waiting for the blood pressure to come down for discharge. If patient going home, recommend to come to the office within 1 week for pulmonary follow up. Objective Vital Signs - 12hr 04/20/19 04/20/19 04/20/19 04:47 05:12 05:43 Temperature 97.9 F 97.9 F Pulse Rate 20 L 65 Respiratory 20 20 Rate Blood Pressure 188/102 188/102 Blood Pressure 188/102 [Left] O2 Sat by Pulse 93 Oximetry 04/20/19 04/20/19 04/20/19 09:40 09:41 11:46 Temperature 98.2 F Pulse Rate 62 65 56 L Respiratory 20 Rate Blood Pressure 188/102 188/102 144/79 Blood Pressure [Left] O2 Sat by Pulse 98 Oximetry 04/20/19 04/20/19 12:37 13:05 Temperature Pulse Rate 60 Respiratory Rate Blood Pressure 144/79 Blood Pressure [Left] O2 Sat by Pulse 99 Oximetry Constitutional: no acute distress, alert Eyes: non-icteric ENT: oropharynx moist Neck: supple, no lymphadenopathy, no JVD Effort: mildly labored Ascultation: Bilateral: wheezes (Ocasional wheezing.) Cardiovascular: regular rate and rhythm, other (S1,S2) Gastrointestinal: normoactive bowel sounds, soft, non-tender Integumentary: normal Extremities: no cyanosis, no edema Neurologic: normal mental status, non-focal exam, pupils equal and round, CN II- XII normal Psychiatric: mood appropriate, affect normal CBC and BMP: 04/13/19 08:38 04/18/19 07:16 ABG, PT/INR, D-dimer: ABG POC ABG pH 7.409 (7.35-7.45) 04/15/19 08:55 POC ABG pCO2 41.4 (35-45) 04/15/19 08:55 POC ABG pO2 68 (80-105) L 04/15/19 08:55 POC ABG HCO3 26.2 (22-26 mml/L) 04/15/19 08:55 POC ABG Total CO2 27 (23-27mmol/L) 04/15/19 08:55 POC ABG O2 Sat 94 04/15/19 08:55 Abnormal lab findings: Abnormal Labs 04/12/19 04/12/19 04/12/19 12:34 12:34 12:34 Hgb 9.2 L MCV 64 L MCH 19 L RDW 22.1 H Lymph % (Auto) Eos % (Auto) 9.3 H Lymph # Eos # 0.6 H Seg Neutrophils % POC ABG pO2 Sodium Chloride Carbon Dioxide 20 L BUN 19 H Creatinine 0.6 L Glucose 103 H POC Glucose Magnesium Alkaline Phosphatase 155 H NT-Pro-B Natriuret Pep 989.6 H Albumin 3.8 L 04/12/19 04/12/19 04/13/19 20:51 21:48 07:37 Hgb MCV MCH RDW Lymph % (Auto) Eos % (Auto) Lymph # Eos # Seg Neutrophils % POC ABG pO2 Sodium Chloride Carbon Dioxide BUN Creatinine Glucose POC Glucose 180 H 153 H Magnesium 2.40 H Alkaline Phosphatase NT-Pro-B Natriuret Pep Albumin 04/13/19 04/13/19 04/13/19 08:38 08:38 12:23 Hgb 9.3 L MCV 64 L MCH 19 L RDW 22.1 H Lymph % (Auto) 8.8 L Eos % (Auto) Lymph # 0.7 L Eos # Seg Neutrophils % 85.5 H POC ABG pO2 Sodium Chloride Carbon Dioxide 19 L BUN 27 H Creatinine Glucose 149 H POC Glucose 412 H Magnesium Alkaline Phosphatase NT-Pro-B Natriuret Pep Albumin 04/13/19 04/13/19 04/14/19 17:01 21:31 05:32 Hgb MCV MCH RDW Lymph % (Auto) Eos % (Auto) Lymph # Eos # Seg Neutrophils % POC ABG pO2 Sodium Chloride Carbon Dioxide BUN 30 H Creatinine Glucose 210 H POC Glucose 131 H 274 H Magnesium Alkaline Phosphatase NT-Pro-B Natriuret Pep Albumin 04/14/19 04/14/19 04/14/19 07:46 11:30 16:09 Hgb MCV MCH RDW Lymph % (Auto) Eos % (Auto) Lymph # Eos # Seg Neutrophils % POC ABG pO2 Sodium Chloride Carbon Dioxide BUN Creatinine Glucose POC Glucose 240 H 288 H 500 H Magnesium Alkaline Phosphatase NT-Pro-B Natriuret Pep Albumin 04/14/19 04/14/19 04/15/19 16:48 21:24 07:29 Hgb MCV MCH RDW Lymph % (Auto) Eos % (Auto) Lymph # Eos # Seg Neutrophils % POC ABG pO2 Sodium Chloride Carbon Dioxide BUN Creatinine Glucose 388 H POC Glucose 386 H 187 H Magnesium Alkaline Phosphatase NT-Pro-B Natriuret Pep Albumin 04/15/19 04/15/19 04/15/19 08:55 13:02 16:35 Hgb MCV MCH RDW Lymph % (Auto) Eos % (Auto) Lymph # Eos # Seg Neutrophils % POC ABG pO2 68 L Sodium Chloride Carbon Dioxide BUN Creatinine Glucose POC Glucose 218 H 278 H Magnesium Alkaline Phosphatase NT-Pro-B Natriuret Pep Albumin 04/15/19 04/16/19 04/16/19 22:22 04:46 08:13 Hgb MCV MCH RDW Lymph % (Auto) Eos % (Auto) Lymph # Eos # Seg Neutrophils % POC ABG pO2 Sodium Chloride 97.6 L Carbon Dioxide BUN 36 H Creatinine Glucose 258 H POC Glucose 304 H 239 H Magnesium Alkaline Phosphatase NT-Pro-B Natriuret Pep Albumin 04/16/19 04/16/19 04/16/19 12:05 16:51 21:59 Hgb MCV MCH RDW Lymph % (Auto) Eos % (Auto) Lymph # Eos # Seg Neutrophils % POC ABG pO2 Sodium Chloride Carbon Dioxide BUN Creatinine Glucose POC Glucose 261 H 285 H 317 H Magnesium Alkaline Phosphatase NT-Pro-B Natriuret Pep Albumin 04/17/19 04/17/19 04/17/19 07:38 11:28 11:32 Hgb MCV MCH RDW Lymph % (Auto) Eos % (Auto) Lymph # Eos # Seg Neutrophils % POC ABG pO2 Sodium 134 L Chloride 94.1 L Carbon Dioxide BUN 36 H Creatinine Glucose 352 H POC Glucose 181 H 349 H Magnesium Alkaline Phosphatase NT-Pro-B Natriuret Pep Albumin 04/17/19 04/17/19 04/18/19 16:18 21:22 07:16 Hgb MCV MCH RDW Lymph % (Auto) Eos % (Auto) Lymph # Eos # Seg Neutrophils % POC ABG pO2 Sodium 135 L Chloride 94.1 L Carbon Dioxide BUN 34 H Creatinine Glucose 255 H POC Glucose 316 H 374 H Magnesium Alkaline Phosphatase NT-Pro-B Natriuret Pep Albumin 04/18/19 04/18/19 04/18/19 07:42 11:42 16:44 Hgb MCV MCH RDW Lymph % (Auto) Eos % (Auto) Lymph # Eos # Seg Neutrophils % POC ABG pO2 Sodium Chloride Carbon Dioxide BUN Creatinine Glucose POC Glucose 242 H 200 H 228 H Magnesium Alkaline Phosphatase NT-Pro-B Natriuret Pep Albumin 04/18/19 04/19/19 04/19/19 21:23 08:19 11:33 Hgb MCV MCH RDW Lymph % (Auto) Eos % (Auto) Lymph # Eos # Seg Neutrophils % POC ABG pO2 Sodium Chloride Carbon Dioxide BUN Creatinine Glucose POC Glucose 265 H 260 H 293 H Magnesium Alkaline Phosphatase NT-Pro-B Natriuret Pep Albumin 04/19/19 04/19/19 04/20/19 16:51 21:50 08:04 Hgb MCV MCH RDW Lymph % (Auto) Eos % (Auto) Lymph # Eos # Seg Neutrophils % POC ABG pO2 Sodium Chloride Carbon Dioxide BUN Creatinine Glucose POC Glucose 259 H 318 H 198 H Magnesium Alkaline Phosphatase NT-Pro-B Natriuret Pep Albumin 04/20/19 12:04 Hgb MCV MCH RDW Lymph % (Auto) Eos % (Auto) Lymph # Eos # Seg Neutrophils % POC ABG pO2 Sodium Chloride Carbon Dioxide BUN Creatinine Glucose POC Glucose 230 H Magnesium Alkaline Phosphatase NT-Pro-B Natriuret Pep Albumin
[2019-04-20 13:59] VITALS: BP 148/81
--- NOTE | 2019-04-20 14:59 | Discharge Summary ---
Providers - Providers Date of Admission: 04/12/19 15:07 Date of discharge: 04/20/19 Attending physician: JEAN CLAUDE CYR 04/12/19 20:34 Consult to Physician [CONS] Routine Comment: Consulting Provider: FIDEL MILLER Physician Instructions: Reason For Exam: CHF 04/13/19 13:30 Consult to Physician [CONS] Routine Comment: Consulting Provider: MAGED LANDERS Physician Instructions: Reason For Exam: resp failure 04/16/19 10:03 Physical Therapy Evaluation and Treat [CONS] Routine Comment: Reason For Exam: deconditioning 04/19/19 09:08 Consult to Dietitian/Nutrition [CONS] Routine Physician Instructions: Reason For Exam: Hypertension,diabetes,morbid obesity Reason for Consult: Diet education Primary care physician: VIPUL JACOBS Hospitalization Condition: Fair Hospital course: 59 YO Female with HTN, Diastolic CHF(EF 45%), COPD, OA, Chronic Respiratory Failure on Home Oxygen via NC, DM, CAD S/P Stent Placement on DAPT, Nicotine Dependence, Medication Noncompliance . She presented to ED for evaluation for shortness of breath, productive cough with yellow sputum as well as chest discomfort with deep breathing. Pt acknowledges Orthopnea/PND, Dypsnea on Exertion, Dypsnea at rest, leg edema. Pt acknowledges dietary and medication noncompliance. She was seen and evaluated in ED and found to have Acute Hypoxemic Respiratory failure, and placed on supplemental oxygen, nebulizer therapy and admitted. he was seen by sourcing intern, [employer]. He improved slowly and was discharged home 04/20/19 Acute on chronic systolic CHF. He was followed by cardiology. Lasix, Beta blockers, ARB Acute COPD exacerbation. Treated with solumedrol, bronchodilators/nebs. Hypertensive urgency, controlled after increasing clonidine to 0.3mg bid, Hydralazine to 20mg iv prn and 100mg tid CAD. hx of stent. DMII. Accuchecks and SSRI. Increased Lantus. HLD. Cont statin Morbid obesity. Pt counseled on diet and exercise to lose weight. Tobacco abuse. Pt counseled on cessation Total time spent on discharge, 35 mins Disposition: [id number] HOME UNDER HOME HLTH - Discharge Diagnoses (1) Acute respiratory failure with hypoxia Status: Acute (2) COPD exacerbation Status: Acute (3) HTN (hypertension) Status: Acute Qualifiers: Hypertension type: essential hypertension Qualified Code(s): I10 - Essential (primary) hypertension (4) Hypertensive urgency Status: Acute (5) Diabetes mellitus, type 2 Status: Chronic (6) Hyperlipidemia Status: Chronic Qualifiers: Hyperlipidemia type: mixed hyperlipidemia Qualified Code(s): E78.2 - Mixed hyperlipidemia (7) Morbid obesity Status: Chronic (8) CAD (coronary artery disease) Status: Acute (9) Acute on chronic systolic (congestive) heart failure Status: Acute Core Measure Documentation - Palliative Care Palliative Care/ Comfort Measures: Not Applicable - Core Measures Any of the following diagnoses?: heart failure - Heart Failure Discharge Requirements LETTY/ARB for LVSD if EF <40%: Yes Beta vamsi at discharge: Yes Exam - Constitutional Vitals: Temp Pulse Resp BP Pulse Ox 98.2 F 62 20 148/81 99 04/20/19 11:46 04/20/19 13:58 04/20/19 11:46 04/20/19 13:58 04/20/19 12:37 Plan Activity: advance as tolerated Diet: low fat, low cholesterol, low salt, diabetic Plan of Treatment: 1.Follow up with PCP in 1 week. 2.Follow up with cardiology in 1 week. 3.Follow up with Dr. Shahid in 1 week Follow up with: MARTHA ESTRADAMANOR MD JIAN [Referring] - 7 Days Forms: Work/School Release Form Prescriptions: amLODIPine 10 mg PO QDAY #30 tablet hydrALAZINE [Apresoline TAB] 100 mg PO Q8HR #90 tab cloNIDine [Catapres] 0.2 mg PO BID #60 tablet ISOSORBIDE MONOnitrate [Imdur ER] 60 mg PO QDAY #30 tablet Prednisone [predniSONE 5 mg (6-Day Pack, 21 Tabs)] 5 mg PO .TAPER #1 tab.ds.pk
== END 2019-04-20 18:30 | disposition home health service (06) | DRG 291 ==
LOC: ED 11:52 → 3A 15:07
PROVIDERS: ADMIT Internal Medicine; ATTEND Internal Medicine
PROC: 5A09357 Assistance with Respiratory Ventilation, Less than 24 Consecutive Hours, Continuous Positive Airway Pressure (ICD-10-PCS; 2019-04-14)
PROC: 4A033R1 Measurement of Arterial Saturation, Peripheral, Percutaneous Approach (ICD-10-PCS; principal; 2019-04-15)
DX: I11.0 Hypertensive heart disease with heart failure (principal); J96.21 Acute and chronic respiratory failure with hypoxia; J44.1 Chronic obstructive pulmonary disease with (acute) exacerbation; Z68.42 Body mass index [BMI] 45.0-49.9, adult; E66.2 Morbid (severe) obesity with alveolar hypoventilation; F17.213 Nicotine dependence, cigarettes, with withdrawal; I50.43 Acute on chronic combined systolic (congestive) and diastolic (congestive) heart failure; I42.9 Cardiomyopathy, unspecified; E11.9 Type 2 diabetes mellitus without complications; M19.90 Unspecified osteoarthritis, unspecified site; R60.0 Localized edema; I16.0 Hypertensive urgency; I25.118 Atherosclerotic heart disease of native coronary artery with other forms of angina pectoris; E78.2 Mixed hyperlipidemia; R07.81 Pleurodynia; Z88.0 Allergy status to penicillin; Z99.81 Dependence on supplemental oxygen; Z91.14 Patient's other noncompliance with medication regimen; Z95.1 Presence of aortocoronary bypass graft; Z86.718 Personal history of other venous thrombosis and embolism; Z79.899 Other long term (current) drug therapy; Z90.49 Acquired absence of other specified parts of digestive tract; Z90.710 Acquired absence of both cervix and uterus; Z79.82 Long term (current) use of aspirin; Z71.3 Dietary counseling and surveillance; Z83.3 Family history of diabetes mellitus; Z82.49 Family history of ischemic heart disease and other diseases of the circulatory system; Z90.89 Acquired absence of other organs; Z95.5 Presence of coronary angioplasty implant and graft; Z71.6 Tobacco abuse counseling
CPT/HCPCS: 36415; 36600; 71046; 80048; 80053; 82803; 82947; 82962; 83735; 83880; 84439; 84443; 84484; 85025; 87116; 90686; 93005; 93010; 93306; 94640; 94660; 94760; 99406; G0378; A9270-GY; J0360; J0456; J1650; J1815; J1940; J2060; J2405; J2930; J3475; J7050

== ENCOUNTER 2019-10-06 10:13 | Inpatient (IN) | payer BC ==
--- NOTE | 2019-10-06 10:42 | Emergency Department Report ---
ED General Adult HPI - General Chief complaint: Adult Asthma Stated complaint: CHEST PAINS PUI?: Yes Time Seen by Provider: 10/06/19 10:40 Source: patient, RN notes reviewed, old records reviewed Mode of arrival: Ambulatory Limitations: No Limitations - History of Present Illness Initial comments: For the entire history and physical examination, I had on complete personal protective equipment Primary care doctor: Dr Bishop Pulmonology: Dr Victor M Goldman Cardiology: [facility] Past medical history: Heart disease, multiple stents, on aspirin therapy, COPD, obesity, hypertension, on home oxygen therapy, question CHF versus dependent edema The patient is a 59-year-old female. She is not known to myself previously. S he presents to the ER with a complaint of cough, wheezing, chest wall pain, shortness of breath, intermittent hemoptysis, malaise, fatigue, and weakness. She states that she has been staying at home. She states that she was ruled out for coronavirus 2 weeks ago. She denies sick contacts. Chest wall pain is present for 1 week. It is constant, and does not radiate to the back, arms or neck. Cough, wheezing, shortness of breath present for the past 3 to 4 days. She endorses intermittent minimal hemoptysis. There is no abdominal pain. There is no urinary symptoms. She denies bright red blood per rectum. She denies focal extremity weakness and or numbness. Chest wall pain increases with palpation and decreases with rest. Cough, wheezing, shortness of breath constant, worsened with physical exertion, decreased with rest. -: days(s), week(s) (1) Location: chest (Chest wall pain) Severity scale (0 -10): 0 Quality: other Consistency: other Improves with: other Worsens with: other - Related Data Home Medications Medication Instructions Recorded Confirmed Last Taken Furosemide 40 mg PO DAILY 10/28/13 10/06/19 10/28/13 Aspirin [Aspirin BABY CHEW TAB] 81 mg PO DAILY 10/06/19 10/06/19 Unknown Budesonide/Formoterol Fumarate 10.2 gm PO 10/06/19 Unknown [Budesonide-Formoterol 160-4.5] Losartan [Cozaar] 50 mg PO DAILY 10/06/19 10/06/19 Unknown Nitroglycerin [Nitrostat] 0.4 mg SL PRN 10/06/19 10/06/19 Unknown Previous Rx's Medication Instructions Recorded Last Taken Type Aspirin EC [Halfprin EC] 81 mg PO QDAY #30 tablet 10/30/13 Unknown Rx Metoprolol [Lopressor TAB] 50 mg PO BID #60 tablet 10/30/13 Unknown Rx Allergies Allergy/AdvReac Type Severity Reaction Status Date / Time Penicillins Allergy Anaphylaxis Verified 10/28/13 15:50 ED Review of Systems ROS: Stated complaint: CHEST PAINS Other details as noted in HPI Constitutional: malaise, weakness. denies: fever Eyes: denies: eye discharge ENT: congestion Respiratory: cough, orthopnea, shortness of breath, SOB with exertion, SOB at rest, wheezing Cardiovascular: as per HPI, dyspnea on exertion, orthopnea Gastrointestinal: denies: nausea, vomiting, hematemesis, melena, hematochezia Genitourinary: denies: dysuria Musculoskeletal: myalgia Skin: denies: lesions Neurological: weakness Psychiatric: anxiety Hematological/Lymphatic: denies: easy bleeding ED Past Medical Hx - Past Medical History Hx Hypertension: Yes Hx Heart Attack/AMI: No Hx Congestive Heart Failure: Yes Hx Diabetes: Yes Hx Deep Vein Thrombosis: No Hx Pulmonary Embolism: No Hx Liver Disease: No Hx Sickle Cell Disease: No Hx Arthritis: Yes Hx Asthma: Yes Hx COPD: Yes Hx Tuberculosis: No Hx HIV: No Additional medical history: gout - Surgical History Hx Coronary Stent: Yes Hx Pacemaker: No Hx Internal Defibrillator: No Hx Cholecystectomy: Yes - Social History Smoking Status: Former Smoker - Medications Home Medications: Home Medications Medication Instructions Recorded Confirmed Last Taken Type Furosemide 40 mg PO DAILY 10/28/13 10/06/19 10/28/13 History Aspirin EC [Halfprin EC] 81 mg PO QDAY #30 tablet 10/30/13 Unknown Rx Metoprolol [Lopressor TAB] 50 mg PO BID #60 tablet 10/30/13 10/06/19 Unknown Rx Aspirin [Aspirin BABY CHEW TAB] 81 mg PO DAILY 10/06/19 10/06/19 Unknown History Budesonide/Formoterol Fumarate 10.2 gm PO 10/06/19 Unknown History [Budesonide-Formoterol 160-4.5] Losartan [Cozaar] 50 mg PO DAILY 10/06/19 10/06/19 Unknown History Nitroglycerin [Nitrostat] 0.4 mg SL PRN 10/06/19 10/06/19 Unknown History ED Physical Exam - General Limitations: Physical Limitation General appearance: alert, anxious, in distress, obese - Head Head exam: Present: atraumatic, normocephalic - Eye Eye exam: Present: normal appearance - ENT ENT exam: Present: normal exam, mucous membranes moist, normal external ear exam - Neck Neck exam: Present: normal inspection, full ROM - Respiratory Respiratory exam: Present: respiratory distress, wheezes, rhonchi, chest wall tenderness. Absent: stridor - Cardiovascular Cardiovascular Exam: Present: regular rate, normal rhythm, normal heart sounds. Absent: bradycardia, tachycardia, irregular rhythm, systolic murmur, diastolic murmur, rubs, gallop - GI/Abdominal GI/Abdominal exam: Present: soft. Absent: distended, tenderness, guarding, rebound, rigid, pulsatile mass - Extremities Exam Extremities exam: Present: normal inspection, full ROM, pedal edema, other (2+ pulses noted in the bilateral upper and lower extremities. There is no palpable cord. negative Homans sign. Muscular compartments are soft. The pelvis is stable.). Absent: calf tenderness - Back Exam Back exam: Present: normal inspection, full ROM. Absent: tenderness, CVA tenderness (R), CVA tenderness (L), paraspinal tenderness, vertebral tenderness - Neurological Exam Neurological exam: Present: alert, other (No facial droop. Tongue midline. Extraocular movements intact bilaterally. Facial sensation intact to light touch in V1, V2, V3 distribution bilaterally. 5 and a 5 strength in 4 extremities. Sensation intact to light touch in 4 extremities.). Absent: motor sensory deficit - Psychiatric Psychiatric exam: Present: anxious - Skin Skin exam: Present: warm, dry, intact, normal color. Absent: rash ED Course Vital Signs 10/06/19 10/06/19 10/06/19 10:22 11:33 11:35 Temperature 98.6 F Pulse Rate 104 H Pulse Rate [ 91 H Bilateral] Respiratory 20 Rate Respiratory 18 Rate [Bilateral ] Blood Pressure 214/140 [Left] O2 Sat by Pulse 94 96 Oximetry - Reevaluation(s) Reevaluation #1: 10/06/19 11:21 Differential diagnosis, including but not limited to: COPD exacerbation, bronchitis bronchiectasis, pneumonia, pulmonary embolism, costochondritis, CHF, acute coronary syndrome Novel coronavirus Assessment and plan: 59-year-old female with numerous cardiovascular risk factors, numerous pulmonary comorbidities, presenting with chest wall pain, cough, hemoptysis, shortness of breath, wheezing, resolving tachycardia, and borderline hypoxia on supplemental oxygen; she is typically on 3 to 5 L of supplemental oxygen. Suspect COPD exacerbation, with costochondritis. We will treat her symptoms with albuterol, Atrovent, steroids, magnesium, and acetaminophen/Pepcid. She describes intolerance to nitroglycerin. Blood pressure somewhat improved, 180/134, however, given history of heart disease, endorsement of chest wall pain, we will withhold subcutaneous epinephrine. We will reassess after her data points have resulted. Patient at moderate risk for major adverse cardiac event as per heart score. Think pulmonary embolism is unlikely, but we will riskstratify the patient with a d-dimer. Patient has numerous medical comorbidities which put her at risk for decompensation for coronavirus, and given her impressive symptomatology and inability to follow-up at this time, anticipate admission once initial diagnostics have resulted. Reevaluation #2: 10/06/19 13:06 In spite of aggressive therapy, patient still wheezing and short of breath as per verbal report from nursing team. Patient to be admitted for COPD exacerbation, chest pain, presented to hospital physician, Dr. Haile. ED Medical Decision Making - Lab Data Result diagrams: 10/06/19 11:26 10/06/19 11:00 Vital Signs 10/06/19 10:22 Temperature 98.6 F Pulse Rate 104 H Respiratory 20 Rate Blood Pressure 214/140 [Left] O2 Sat by Pulse 94 Oximetry - EKG Data -: EKG Interpreted by Me - EKG Data 10/06/19 11:24 The EKG today shows a sinus rhythm, 91 bpm, with a normal axis, QTC is prolonged, atrial enlargement, the EKG is not a STEMI. The EKG appears to be unchanged from prior EKG from October 30, 2013 - Radiology Data Radiology results: pending, report reviewed, image reviewed interpreted by me: X-ray of the chest shows enlarged cardiac silhouette, likely secondary to portab le technique, no obvious pneumothorax, mild pulmonary vascular congestion, no obvious infiltrate, no obvious bony deformity. Print Report Referring Physician: JEAN CLAUDE INGRAM Patient Name: SHAHID FERNANDEZ Date of : 1960 Sex: Female Report Date: 2019-10-06 Report Status: Finalized Findings [facility] [address] [place] [address] XRay Report Signed Patient: SHAHID FERNANDEZ MR#: [id number] : 1960 Acct:[id number] Age/Sex: 59 / F ADM Date: 10/06/19 Loc: ED Attending Dr: Ordering Physician: JEAN CLAUDE INGRAM MD Date of Service: 10/06/19 Procedure(s): XR chest 1V ap Accession Number(s): [id number] cc: JEAN CLAUDE INGRAM MD Fluoro Time In Minutes: CHEST 1 VIEW 10:57 AM INDICATION / CLINICAL INFORMATION: Dyspnea. COMPARISON: 09/06/2019. FINDINGS: SUPPORT DEVICES: None. HEART / MEDIASTINUM: Cardiomegaly is stable. Pulmonary vasculature is normal. LUNGS / PLEURA: No significant pulmonary or pleural abnormality. No pneumothorax. ADDITIONAL FINDINGS: No significant additional findings. IMPRESSION: No acute findings. Signer Name: Prashanth Cantrell MD Signed: 10/06/2019 12:13 PM Workstation Name: [id number] Transcribed By: RT Dictated By: Prashanth Cantrell MD Electronically Authenticated By: Prashanth Cantrell MD Signed Date/Time: 10/06/19 1213 DD/ 1212 TD/TT: Critical Care Time: Yes Critical care time in (mins) excluding proc time.: 35 Critical care attestation.: If time is entered above; I have spent that time in minutes in the direct care of this critically ill patient, excluding procedure time. ED Disposition Clinical Impression: Accelerated hypertension, Acute chest pain, COPD exacerbation, Suspected 2019 novel coronavirus infection Disposition: OP ADMIT IP TO THIS HOSP Is pt being admited?: Yes Does the pt Need Aspirin: No Condition: Stable Instructions: Chest Pain (ED), Chronic Obstructive Pulmonary Disease (ED), Hypertension (ED) Referrals: PRIMARY CARE, [Primary Care Provider] - 3-5 Days
[2019-10-06] MEDS ORDERED: ALBUTEROL 2.5 MG/3 ML NEBU IH ONE (10:56)
[2019-10-06] MEDS ORDERED: IPRATROPIUM 0.02% NEBU 2.5 ML IH ONE (10:56)
[2019-10-06] MEDS ORDERED: MAGNESIUM SULFATE 2 GM/50 ML BAG IV ONE (10:56)
[2019-10-06] MEDS ORDERED: methylPREDNISolone Sod Succinate 125 MG/2 ML INJ IV ONE (10:56)
[2019-10-06] MEDS ORDERED: FAMOTIDINE 20 MG TAB PO ONE (11:25)
[2019-10-06] MEDS ORDERED: ACETAMINOPHEN 325 MG TAB PO ONE (11:25)
[2019-10-06 12:08] LABS: Basophils # (Auto) 0.1 K/mm3 (0.0-0.1); Basophils % (Auto) 1.2 % (0.0-1.8); Eosinophils # (Auto) 0.7 K/mm3 (0.0-0.4); Eosinophils % (Auto) 8.9 % (0.0-4.3); Hematocrit 30.6 % (30.3-42.9); Hemoglobin 9.2 gm/dl (10.1-14.3); Lymphocytes # (Auto) 1.2 K/mm3 (1.2-5.4); Lymphocytes % (Auto) 15.2 % (13.4-35.0); Mean Corpuscular HGB Conc 30 % (30-34); Monocytes # (Auto) 0.7 K/mm3 (0.0-0.8); Monocytes % (Auto) 8.1 % (0.0-7.3); Platelet Count 364 K/mm3 (140-440); Red Blood Count 4.97 M/mm3 (3.65-5.03)
[2019-10-06 12:15] LABS: Mean Corpuscular Volume 62 fl (79-97); Red Cell Distribution Width 23.1 % (13.2-15.2)
--- NOTE | 2019-10-06 12:18 | XRay Report ---
CHEST 1 VIEW 10:57 AM INDICATION / CLINICAL INFORMATION: Dyspnea. COMPARISON: 09/06/2019. FINDINGS: SUPPORT DEVICES: None. HEART / MEDIASTINUM: Cardiomegaly is stable. Pulmonary vasculature is normal. LUNGS / PLEURA: No significant pulmonary or pleural abnormality. No pneumothorax. ADDITIONAL FINDINGS: No significant additional findings. IMPRESSION: No acute findings. Signer Name: Prashanth Cantrell MD Signed: 10/06/2019 12:13 PM Workstation Name: [id number]
[2019-10-06 12:20] LABS: INR 1.08 (0.87-1.13)
[2019-10-06 12:21] LABS: Partial Thromboplastin Time 31.5 Sec. (24.2-36.6)
[2019-10-06] MEDS ORDERED: ASPIRIN 81 MG TAB CHEW PO ONE (12:32)
[2019-10-06 12:40] LABS: Alanine Aminotransferase 8 units/L (7-56); Albumin 3.8 g/dL (3.9-5); BUN/Creatinine Ratio 27; Blood Urea Nitrogen 16 mg/dL (7-17); Hemolysis Index 82
[2019-10-06 12:44] LABS: C-Reactive Protein 1.8 mg/dL (0.00-1.30)
[2019-10-06] MEDS ORDERED: DOXYCYCLINE 100 MG CAP PO ONE (13:07)
[2019-10-06] MEDS ORDERED: FUROSEMIDE 20 MG/2 ML INJ IV ONE (13:08)
[2019-10-06] MEDS ORDERED: hydrALAZINE 20 MG/1 ML INJ IV ONE (13:08)
--- NOTE | 2019-10-06 13:09 | History and Physical Report ---
History of Present Illness Chief complaint: I cannot breathe History of present illness: 59 YO Female with HTN, OA, CAD S/P Stent x2, Nicotine Dependence, HI, Morbid Obesity, COPD, Obesity Hypoventilation Syndrome, Chronic Respiratory Failure on Home Oxygen presents to ED for evaluation. Patient states that she has e xperienced shortness of breath, orthopnea, paroxysmal nocturnal dyspnea, decreased exercise tolerance, increased productive cough with clear sputum, increased frequency of bronchodilator therapy without relief of symptoms, and increased use of supplemental oxygen without relief. Patient was seen by her advertising solicitor 1 week ago and has experienced worsening symptoms since that evaluation. Patient transported to [facility] via private vehicle for further care and evaluation. Patient seen and evaluated in the emergency department. Lab and imaging studies reviewed. Patient found to have acute on chronic respiratory failure with a pulse oximetry of 87% on room air as well as clinical findings consistent with COPD exacerbation, congestive heart failure exacerbation, and a blood pressure of 214/140 which is consistent with accelerated hypertension. Patient admitted to telemetry. Pulmonology team consulted in ED. Cardiology team consulted in ED. Patient initiated on CHF protocol and treated with supplemental oxygen. Patient denies fever, chills, chest pain, palpitations, NVD, Medication noncompliance, unilateral leg/calf swelling, recent prolonged car/air travel, difficulty breathing, individual/family history of DVT/bleeding/blood clotting disorders, or hemoptysis. Patient denies known exposure to COVID-19. Patient underwent coronavirus PCR swab and was found to be -2 weeks ago. All medication listed at time of admission has been reconciled. Past History Past Medical History: acute HI, CAD, heart failure, hypertension Past Surgical History: cholecystectomy, Other (Cardiac stent placement) Social history: , smoking. denies: alcohol abuse, prescription drug abuse Family history: diabetes, hypertension Medications and Allergies Allergies Allergy/AdvReac Type Severity Reaction Status Date / Time Penicillins Allergy Anaphylaxis Verified 10/28/13 15:50 Home Medications Medication Instructions Recorded Confirmed Last Taken Type Furosemide 40 mg PO DAILY 10/28/13 10/06/19 10/28/13 History Aspirin EC [Halfprin EC] 81 mg PO QDAY #30 tablet 10/30/13 10/06/19 Unknown Rx Metoprolol [Lopressor TAB] 50 mg PO BID #60 tablet 10/30/13 10/06/19 Unknown Rx ALBUTEROL NEB's 0.083 inh PO Q6H 10/06/19 10/06/19 Unknown History Albuterol INH(or & Nicu Only) 6.7 gm PO Q6H PRN 10/06/19 10/06/19 Unknown History Aspirin [Aspirin BABY CHEW TAB] 81 mg PO DAILY 10/06/19 10/06/19 Unknown History AtorvaSTATin 40 mg PO DAILY 10/06/19 10/06/19 Unknown History Budesonide/Formoterol Fumarate 10.2 gm PO 10/06/19 Unknown History [Budesonide-Formoterol 160-4.5] Celecoxib [celeBREX] 200 mg PO DAILY 10/06/19 10/06/19 Unknown History Clopidogrel [Plavix] 75 mg PO QWEEK 10/06/19 10/06/19 Unknown History Dulaglutide [Trulicity] 0.75 mg SQ 10/06/19 Unknown History HumuLIN 70/30 Kwikpen 15 units SQ BID 10/06/19 10/06/19 Unknown History Insulin Glargine,Hum.rec.anlog 20 units SQ QHS 10/06/19 10/06/19 Unknown History [Lantus Solostar] Losartan [Cozaar] 50 mg PO DAILY 10/06/19 10/06/19 Unknown History Nitroglycerin [Nitrostat] 0.4 mg SL PRN 10/06/19 10/06/19 Unknown History Symbicort 160-4.5 Mcg Inhaler 10/06/19 Unknown History cloNIDine [Catapres] 0.2 mg PO BID 10/06/19 10/06/19 Unknown History metFORMIN 500 mg PO BID 10/06/19 10/06/19 Unknown History Active Meds: Active Medications Furosemide (Lasix) 20 mg IV ONCE ONE Stop: 10/06/19 13:09 Hydralazine HCl (Apresoline) 10 mg IV ONCE ONE Stop: 10/06/19 13:09 Review of Systems Constitutional: no weight loss, no weight gain, no fever, no chills Ears, nose, mouth and throat: no ear pain, no ear discharge, no tinnitis, no nose pain, no nasal congestion Breasts: no change in shape, no swelling, no mass Cardiovascular: orthopnea, shortness of breath, dyspnea on exertion, paroxysmal nocturnal dyspnea, leg edema, decreased exercise tolerance, no chest pain Respiratory: cough, cough with sputum, shortness of breath, dyspnea on exertion, no hemoptysis Gastrointestinal: no abdominal pain, no nausea, no vomiting, no diarrhea, no constipation Genitourinary Female: no pelvic pain, no flank pain, no menorrhagia, no dysuria, no urinary frequency, no urgency Rectal: no pain, no incontinence, no bleeding Musculoskeletal: no neck stiffness, no neck pain, no shooting arm pain, no low back pain, no shooting leg pain, no leg numbness/tingling Integumentary: no rash, no pruritis, no redness, no sores, no wounds Neurological: no paralysis, no weakness, no parathesias, no numbness, no tingling Psychiatric: no anxiety, no memory loss, no change in sleep habits, no sleep disturbances, no insomnia, no hypersomnia Endocrine: no cold intolerance, no heat intolerance, no polyphagia, no excessive thirst, no polydipsia Hematologic/Lymphatic: no easy bruising, no easy bleeding Allergic/Immunologic: no urticaria, no wheezing Exam - Constitutional Vitals: Temp Pulse Resp BP Pulse Ox 98.6 F 91 H 18 214/140 96 10/06/19 10:22 10/06/19 11:35 10/06/19 11:35 10/06/19 10:22 10/06/19 11:33 General appearance: Present: mild distress, obese - EENT Eyes: Present: PERRL ENT: hearing intact, clear oral mucosa - Neck Neck: Present: supple, normal ROM - Respiratory Respiratory effort: labored, accessory muscle use, stridor Respiratory: bilateral: CTA, diminished - Cardiovascular Heart Sounds: Present: S1 & S2. Absent: rub, click - Extremities Extremities: pulses symmetrical Extremity abnormal: edema Peripheral Pulses: within normal limits - Abdominal General gastrointestinal: Present: soft, non-tender, non-distended, normal bowel sounds Female genitourinary: Present: normal - Integumentary Integumentary: Present: clear, warm, dry - Musculoskeletal Musculoskeletal: gait normal, strength equal bilaterally - Psychiatric Psychiatric: appropriate mood/affect, intact judgment & insight - Neurologic Neurologic: CNII-XII intact, moves all extremities HEART Score - HEART Score Troponin: Troponin T < 0.010 ng/mL (0.00-0.029) 10/06/19 10:57 Results - Labs CBC & Chem 7: 10/06/19 11:26 10/06/19 11:00 Labs: Abnormal lab results 10/06/19 10/06/19 10/06/19 Range/Units 10:56 10:57 11:00 Hgb (10.1-14.3) gm/dl MCV (79-97) fl MCH (28-32) pg RDW (13.2-15.2) % [place] % (Auto) (0.0-7.3) % Eos % (Auto) (0.0-4.3) % Eos # (0.0-0.4) K/mm3 Creatinine 0.6 L (0.7-1.2) mg/dL Glucose 119 H 120 H (65-100) mg/dL Alkaline Phosphatase 177 H (35-129) units/L Lactate Dehydrogenase 379 H 600 H (91-180) units/L C-Reactive Protein 1.80 H 1.80 H (0.00-1.30) mg/dL NT-Pro-B Natriuret Pep 1182 H (0-900) pg/mL Albumin 3.8 L (3.9-5) g/dL 10/06/19 Range/Units 11:26 Hgb 9.2 L (10.1-14.3) gm/dl MCV 62 L (79-97) fl MCH 19 L (28-32) pg RDW 23.1 H (13.2-15.2) % [place]comb % (Auto) 8.1 H (0.0-7.3) % Eos % (Auto) 8.9 H (0.0-4.3) % Eos # 0.7 H (0.0-0.4) K/mm3 Creatinine (0.7-1.2) mg/dL Glucose (65-100) mg/dL Alkaline Phosphatase (35-129) units/L Lactate Dehydrogenase (91-180) units/L C-Reactive Protein (0.00-1.30) mg/dL NT-Pro-B Natriuret Pep (0-900) pg/mL Albumin (3.9-5) g/dL Assessment and Plan - Patient Problems (1) Acute and chronic respiratory failure Current Visit: Yes Status: Acute Qualifiers: Respiratory failure complication: hypoxia Qualified Code(s): J96.21 - Acute and chronic respiratory failure with hypoxia Plan to address problem: Submental oxygen, pulse oximetry, chest x-ray, nebulizer therapy, noninvasive positive pressure ventilation as clinically indicated, pulmonary team consulted in ED. (2) Congestive heart failure Current Visit: Yes Status: Acute Qualifiers: Heart failure type: systolic Heart failure chronicity: acute on chronic Qualified Code(s): I50.23 - Acute on chronic systolic (congestive) heart failure Plan to address problem: Strict I's/O, monitor urine output every shift, daily weight, pulse oximetry, diuretic therapy with Lasix, blood pressure control. Hospitalist nebulizer therapy, BNP, chest x-ray, cardiology consulted in ED. (3) Accelerated hypertension Current Visit: Yes Status: Acute Plan to address problem: Monitor blood pressure every shift, IV hydralazine every 6 hours as needed for systolic blood pressure greater than 155, resume prehospital antihypertensive th erapy. (4) Obesity hypoventilation syndrome Current Visit: Yes Status: Acute Plan to address problem: Submental oxygen, pulse oximetry, nebulizer therapy, noninvasive positive pressure ventilation as clinically indicated, outpatient pulmonary follow-up for sleep study. (5) COPD with exacerbation Current Visit: Yes Status: Acute Plan to address problem: Supplemental oxygen, nebulizer therapy, IV steroid therapy, pulmonology team consulted in ED. (6) Coronary artery disease Current Visit: Yes Status: Acute Qualifiers: Associated angina: without angina Plan to address problem: Low-cholesterol diet, risk factor reduction therapy, dual antiplatelet therapy, supportive care. (7) Morbid obesity with body mass index of 40.0-49.9 Current Visit: No Status: Acute Plan to address problem: Balanced diet, increase physical activity at discharge, outpatient bariatric surgery follow-up. (8) Advance care planning Current Visit: Yes Status: Acute Plan to address problem: Disease education conducted, patient acknowledges understanding and agreement with care plan, patient is full code, +30 minutes. (9) DVT prophylaxis Current Visit: No Status: Acute Plan to address problem: SCD to bilateral lower extremities while in bed, patient is ambulatory
[2019-10-06] MEDS ORDERED: ONDANSETRON 4 MG/2 ML INJ IV PRN (13:13)
[2019-10-06] MEDS ORDERED: ACETAMINOPHEN 325 MG TAB PO PRN (13:13)
[2019-10-06] MEDS ORDERED: DOXYCYCLINE 100 MG CAP ONE (13:51)
[2019-10-06] MEDS ORDERED: FUROSEMIDE 20 MG/2 ML INJ ONE (13:51)
[2019-10-06] MEDS ORDERED: hydrALAZINE 20 MG/1 ML INJ ONE ×2 (13:52→18:25)
[2019-10-06] MEDS ORDERED: NITROGLYCERIN 0.4 MG TAB SUBL SL PRN (14:00)
--- NOTE | 2019-10-06 14:31 | Consultation ---
History of Present Illness Consult date: 10/06/19 Requesting physician: CAROLINE PRATER Reason for consult: COPD (Acute Exacerbation) History of present illness: PULMONARY/CCM CONSULT NOTE (Full dictation # [id number]) Please see dictated notes for full details Past History Past Medical History: acute [place], CAD, heart failure, hypertension Past Surgical History: cholecystectomy, Other (Cardiac stent placement) Social history: , smoking. denies: alcohol abuse, prescription drug abuse Family history: diabetes, hypertension Medications and Allergies Allergies Allergy/AdvReac Type Severity Reaction Status Date / Time Penicillins Allergy Anaphylaxis Verified 10/28/13 15:50 Home Medications Medication Instructions Recorded Confirmed Last Taken Type Furosemide 40 mg PO DAILY 10/28/13 10/06/19 10/28/13 History Aspirin EC [Halfprin EC] 81 mg PO QDAY #30 tablet 10/30/13 10/06/19 Unknown Rx Metoprolol [Lopressor TAB] 50 mg PO BID #60 tablet 10/30/13 10/06/19 Unknown Rx ALBUTEROL NEB's 0.083 inh PO Q6H 10/06/19 10/06/19 Unknown History Albuterol INH(or & Nicu Only) 6.7 gm PO Q6H PRN 10/06/19 10/06/19 Unknown History Aspirin [Aspirin BABY CHEW TAB] 81 mg PO DAILY 10/06/19 10/06/19 Unknown History AtorvaSTATin 40 mg PO DAILY 10/06/19 10/06/19 Unknown History Budesonide/Formoterol Fumarate 10.2 gm PO 10/06/19 Unknown History [Budesonide-Formoterol 160-4.5] Celecoxib [celeBREX] 200 mg PO DAILY 10/06/19 10/06/19 Unknown History Clopidogrel [Plavix] 75 mg PO QWEEK 10/06/19 10/06/19 Unknown History Dulaglutide [Trulicity] 0.75 mg SQ 10/06/19 Unknown History HumuLIN 70/30 Kwikpen 15 units SQ BID 10/06/19 10/06/19 Unknown History Insulin Glargine,Hum.rec.anlog 20 units SQ QHS 10/06/19 10/06/19 Unknown History [Lantus Solostar] Losartan [Cozaar] 50 mg PO DAILY 10/06/19 10/06/19 Unknown History Nitroglycerin [Nitrostat] 0.4 mg SL PRN 10/06/19 10/06/19 Unknown History Symbicort 160-4.5 Mcg Inhaler 10/06/19 Unknown History cloNIDine [Catapres] 0.2 mg PO BID 10/06/19 10/06/19 Unknown History metFORMIN 500 mg PO BID 10/06/19 10/06/19 Unknown History Active Meds: Active Medications Acetaminophen (Tylenol) 650 mg PO Q4H PRN PRN Reason: Pain MILD(1-3)/Fever >100.5/ALAS Aspirin (Baby Aspirin) 81 mg PO DAILY ANN MARIE Furosemide (Lasix) 40 mg IV BID@0600,1800 ANN MARIE Losartan Potassium (Cozaar) 50 mg PO DAILY ANN MARIE Metoprolol Tartrate (Metoprolol) 12.5 mg PO BID ANN MARIE Nitroglycerin (Nitrostat) 0.4 mg SL PRN PRN PRN Reason: Chest Pain Ondansetron HCl (Zofran) 4 mg IV Q8H PRN PRN Reason: Nausea And Vomiting Sodium Chloride (Sodium Chloride Flush Syringe 10 Ml) 10 ml IV BID ANN MARIE Sodium Chloride (Sodium Chloride Flush Syringe 10 Ml) 10 ml IV PRN PRN PRN Reason: LINE FLUSH Physical Examination Vital signs: Vital Signs Temp Pulse Resp BP Pulse Ox 98.6 F 104 H 20 214/140 94 10/06/19 10:22 10/06/19 10:22 10/06/19 10:22 10/06/19 10:22 10/06/19 10:22 Results - Laboratory Findings CBC and BMP: 10/06/19 11:26 10/06/19 11:00 PT/INR, D-dimer PT 13.8 Sec. (12.2-14.9) 10/06/19 11:26 INR 1.08 (0.87-1.13) 10/06/19 11:26 D-Dimer 178.53 ng/mlDDU (0-234) 10/06/19 11:26 Abnormal lab findings: Abnormal Labs 10/06/19 10/06/19 10/06/19 10:56 10:57 11:00 Hgb MCV MCH RDW [place] % (Auto) Eos % (Auto) Eos # Creatinine 0.6 L Glucose 119 H 120 H Alkaline Phosphatase 177 H Lactate Dehydrogenase 379 H 600 H C-Reactive Protein 1.80 H 1.80 H NT-Pro-B Natriuret Pep 1182 H Albumin 3.8 L 10/06/19 11:26 Hgb 9.2 L MCV 62 L MCH 19 L RDW 23.1 H [place] % (Auto) 8.1 H Eos % (Auto) 8.9 H Eos # 0.7 H Creatinine Glucose Alkaline Phosphatase Lactate Dehydrogenase C-Reactive Protein NT-Pro-B Natriuret Pep Albumin
[2019-10-06 14:55] LABS: Free T4 (Free Thyroxine) 1.23 ng/dL (0.76-1.46)
[2019-10-06] MEDS ORDERED: ALBUTEROL 2.5 MG/3 ML NEBU IH PRN (17:39)
[2019-10-06] MEDS ORDERED: levoFLOXacin 500 MG TAB ONE (17:57)
[2019-10-06] MEDS: levoFLOXacin 500 MG TAB PO SCH (17:58)
[2019-10-06] MEDS ORDERED: FUROSEMIDE 40 MG/4 ML INJ ONE (17:58)
[2019-10-06] MEDS: FUROSEMIDE 40 MG/4 ML INJ IV SCH (17:58)
[2019-10-06] MEDS ORDERED: oxyCODONE /ACETAMINOPHEN 5-325MG TAB ONE (18:25)
[2019-10-06] MEDS: oxyCODONE /ACETAMINOPHEN 5-325MG TAB PO PRN (18:26)
[2019-10-06] MEDS: hydrALAZINE 20 MG/1 ML INJ IV PRN (18:27)
--- NOTE | 2019-10-06 20:26 | Consultation ---
PULMONARY CRITICAL CARE CONSULTATION NOTE CONSULTING PHYSICIAN: Dr. Emanuel Haile. REASON FOR CONSULTATION: Acute hypoxemic respiratory failure. CHIEF COMPLAINT AND HISTORY OF PRESENT ILLNESS: The patient is a 59-year-old -Slov[place] female with past medical history significant amongst other things for a diagnosis of chronic obstructive lung disease, but also being evaluated for congestive heart failure, came into the Emergency Room complaining of about 2-3 days of increasing shortness of breath, dyspnea on exertion. She had a cough and began to notice intermittent hemoptysis. She denied fevers or chills. She admitted she was wheezing. She used her bronchodilators at home without any improvement in her symptoms. She then noticed lower extremity swelling bilaterally. She admitted to some element of orthopnea, came into the Emergency Room with chest wall pain that was pleuritic in nature, mostly in the left side. In the Emergency Room, she was evaluated and found to indeed be in acute hypoxemic respiratory failure, to be wheezing and we were asked to assist with management. When I stopped by to see her, she was resting in bed, feeling a little bit better, but still short of breath, still with increased respiratory effort at rest. She denied any vomiting or overt aspiration. She denied any sick contacts. This really is as much of the history of presentation as I have. I should mention she has a 10+ pack year tobacco smoking history, admitted that she has tried to smoke once or twice, but that in the past 3 weeks, she has been as an abstinent as she has ever been in her life. PAST MEDICAL HISTORY: Again, significant for COPD, morbid obesity, history of cardiomyopathy, coronary artery disease, history of obstructive sleep apnea, on noninvasive ventilation at home, history of arthritis, history of gout as well as a history of diabetes. PAST SURGICAL HISTORY: History of cholecystectomy. MEDICATIONS: She was on at the time I stopped by to see her, according to the medication administration record included the following: Tylenol 650 mg p.o. q. 4 hours p.r.n. mild pain or fevers, aspirin 81 mg p.o. daily, Lipitor 40 mg p.o. at bedtime, Celebrex 200 mg p.o. daily, Catapres 0.2 mg p.o. b.i.d., Plavix 75 mg p.o. daily, Lasix 40 mg IV b.i.d., Cozaar 50 mg p.o. daily, Solu-Medrol 40 mg IV q. 12 hours, metoprolol 12.5 mg p.o. b.i.d., Zofran 4 mg IV q. 8 hours p.r.n. nausea and vomiting. ALLERGIES: PENICILLINS. Nature of this allergy is unknown. DIET: Morbidly obese. Denies acute weight loss or gain in the preceding few weeks to months. FAMILY AND SOCIAL HISTORY: Lives in the community. She has a 10+ pack year tobacco smoking history. Denies alcohol or illicit drug use or abuse. Family history, otherwise I believe positive for hypertension. REVIEW OF SYSTEMS: No loss of consciousness. No new onset seizures. No new onset focal weakness. Denies gross hematochezia or melena. Denies gross hematuria or dysuria. Denies polydipsia or polyuria. Denies heat or cold intolerance. She denies periods of unexplained sadness and/or elation as may be consistent with psychiatric type disorders. Complete 13-system review of systems obtained. Pertinent positives and/or negatives as in body of history above, otherwise are noncontributory. PHYSICAL EXAMINATION: VITAL SIGNS: At presentation, she was afebrile, temperature 98.6 degrees Fahrenheit with a pulse of 104, respiratory rate of 20 at that time and blood pressure 214/140. O2 sats 94%, inspired oxygen concentration at that time was not recorded. When I stopped by to see her, O2 sats were 98%; however, that was on 3-4 liters nasal cannula. GENERAL: Elderly looking obese -[place] female, normocephalic, atraumatic, talking to me in slightly interrupted sentences with mild to moderately increased respiratory effort at rest. HEAD, EYES, EARS, NOSE AND THROAT: She is anicteric. No conjunctival erythema. Mallampati #4 oropharynx. No gross jugular venous distention. She has a large neck circumference. Grossly, there were no palpable lymph nodes in the supraclavicular or submandibular lymph node chains. LUNGS: Auscultation of both lung low significant for bilateral expiratory wheezing with prolonged expiratory phase and slightly diminished breath sounds. HEART: Heart sounds 1 and 2 are heard at the time of my evaluation, regular rate and rhythm without overt rubs or murmurs. ABDOMEN: Soft, full, protuberant. Bowel sounds are positive, nontender, no palpable hepatosplenomegaly. EXTREMITIES: Without overt digital clubbing or cyanosis. She has about a 1-2+ bipedal pitting edema. Pedal pulses are 2+ bilaterally. NEUROLOGIC: Pupils are equal, round, about 4 mm, reactive to light. Extraocular muscle movements are intact. She moves all 4 extremities spontaneously. SKIN: Normal turgor in the areas examined without overt cellulitis or rash. PSYCHIATRIC: Her mood is normal. Affect is appropriate. LABORATORY DATA: From my review, admission, white cell count 8000, hemoglobin 9.2, hematocrit 30.6, and platelet count was 364. D-dimer is within normal limits. INR is within normal limits. Serum sodium 140, potassium 4.6, chloride 104, bicarbonate 25, BUN 16, creatinine 0.6, glucose was 120. Lactic acid is level within normal limits. BNP elevated at 1182. CRP is 1.8. TSH is within normal limits. Procalcitonin less than 0.04, two sets of blood cultures have been drawn, no growth to date. A chest x-ray was done. I have reviewed the chest x-ray. I have also reviewed the radiologist's interpretation and compared it with an x-ray from 10/29/2019. She does have gross cardiomegaly, blunting of the costophrenic angles may be secondary to the soft tissue shadows/breast shadows. Unfortunately, I am unable to actually pull the last film, but the comparison for this film is also from a prior film and essentially no acute process that I can see. Again, perhaps mild interstitial edema pattern at worst. No gross pneumothorax, no gross bony fracture. ASSESSMENT: 1. Acute hypoxemic respiratory failure. 2. Acute chronic obstructive pulmonary disease exacerbation. 3. Acute congestive heart failure exacerbation. 4. Mild pulmonary edema. 5. Obstructive sleep apnea. 6. Morbid obesity. 7. Tobacco use disorder. 8. Diabetes. 9. Hypertensive emergency. 10. Anemia that is microcytic. 11. Elevated serum BNP. PLAN: It seems like it is a combined feature going on here, she certainly I think will benefit from diuresis for the interstitial edema component/acute CHF component. She will also need better hypertension controlled. As she was certainly having an element of hypertensive urgency, I do also feel there is a significant amount of COPD here at play. She will be continued on systemic steroids. I will start long-acting bronchodilators as well as inhaled corticosteroids as well as p.r.n. short-acting bronchodilator therapy. I will put her empirically on Levaquin monotherapy for an acute COPD exacerbation. I have a rather low clinical suspicion for venous thromboembolic disorder, just clinically. I will not pursue that diagnosis further. We will see how she responds to symptomatic treatment. Cardiology evaluation, I believe, has been placed and otherwise we will defer to the attending physician. Troponin is within normal limits. She will be placed on GI prophylaxis as well as DVT prophylaxis. Flu and pneumonia vaccination will be addressed per protocol. Thank you very much for the consult. I should mention she will be continued on bilevel positive air pressure ventilation therapy at bedtime with p.r.n. use during the day. She is going to be admitted to the telemetry floor. We will follow along and make further recommendations as picture progresses/becomes clearer. JOB# [id number] KAYLA/MARCK HARMON
[2019-10-06] MEDS: ARFORMOTEROL 15 MCG/2 ML NEBU IH SCH (21:36)
[2019-10-06] MEDS: BUDESONIDE 0.5 MG/2 ML NEBU IH SCH (21:36)
[2019-10-06] MEDS: INSULIN LISPRO 100 UNIT/ML SUB-Q SCH (22:42)
[2019-10-06] MEDS: methylPREDNISolone Sod Succinate 40 MG/1 ML INJ IV SCH (22:43)
[2019-10-06] MEDS: ENOXAPARIN 40 MG/0.4 ML INJ SUB-Q SCH (22:43)
[2019-10-06] MEDS: cloNIDine 0.2 MG TAB PO SCH (22:43)
[2019-10-06] MEDS: METOPROLOL TARTRATE 25 MG TAB PO SCH (22:44)
[2019-10-07] MEDS: oxyCODONE /ACETAMINOPHEN 5-325MG TAB PO PRN (04:23)
[2019-10-07 05:31] LABS: BUN/Creatinine Ratio 29; Blood Urea Nitrogen 20 mg/dL (7-17); Calcium 9.3 mg/dL (8.4-10.2); Hemolysis Index 82
[2019-10-07] MEDS: hydrALAZINE 20 MG/1 ML INJ IV PRN (06:04)
[2019-10-07] MEDS: FUROSEMIDE 40 MG/4 ML INJ IV SCH ×2 (06:04→17:45)
[2019-10-07] MEDS: ARFORMOTEROL 15 MCG/2 ML NEBU IH SCH ×2 (07:50→22:19)
[2019-10-07] MEDS: IPRATROPIUM/ALBUTEROL SULFATE 3 ML AMPUL.NEB IH SCH ×3 (07:50→21:47)
[2019-10-07] MEDS: BUDESONIDE 0.5 MG/2 ML NEBU IH SCH ×2 (07:50→21:47)
[2019-10-07] MEDS: cloNIDine 0.2 MG TAB PO SCH (09:50)
[2019-10-07] MEDS: METOPROLOL TARTRATE 25 MG TAB PO SCH ×3 (09:50→22:51)
[2019-10-07] MEDS: FAMOTIDINE 20 MG TAB PO SCH (09:50)
[2019-10-07] MEDS: ASPIRIN 81 MG TAB CHEW PO SCH (09:51)
[2019-10-07] MEDS: CLOPIDOGREL 75 MG TAB PO SCH (09:51)
[2019-10-07] MEDS: INSULIN LISPRO 100 UNIT/ML SUB-Q SCH ×4 (09:56→22:50)
[2019-10-07] MEDS: methylPREDNISolone Sod Succinate 40 MG/1 ML INJ IV SCH ×2 (09:56→22:50)
[2019-10-07] MEDS ORDERED: LOSARTAN 50 MG TAB PO SCH (10:00)
[2019-10-07] MEDS ORDERED: NON-FORMULARY EACH (Atorvastatin 40 MG) PO SCH (10:00)
[2019-10-07] MEDS ORDERED: ASPIRIN EC 81 MG TAB PO SCH (10:00)
[2019-10-07] MEDS: CELECOXIB 200 MG CAP PO SCH (10:07)
--- NOTE | 2019-10-07 11:12 | Consultation ---
History of Present Illness Consult date: 10/07/19 Requesting physician: CAROLINE PRATER Consult reason: congestive heart failure History of present illness: The pt is a 59 YO female with a past medical history of CAD s/p PCI, HTN, HLP, COPD, ongoing tobacco use (quit 3.5 weeks ago), chronic respiratory failure on home O2 @ 5L (follows Dr. Shahid), ADAN, morbid obesity. She is followed in our office by Dr. Hernandez. She presented with c/o several days of progressively wor sening SOB, SOB, PERALES, orthopnea and BLE edema. She also c/o cough and intermittent pleuritic chest pain associated with coughing. She denies any palpitations, n/v, diaphoresis, dizziness or syncope. She reports compliance with her home medication regimen. Admission BP was 214/140. [facility] 06/2018 with PCI of ramus with DIANELYS, left main patent, LAD patent, RCA moderate to severe tortuosity with mid stent patent, circ patent, OM1 50% with ramus 100% with successful PCI, acute diastolic dysfunction. Echo done 04/2019 showed EF 35-40%, mild LVH, restrictive diastolic filling, moderate pulm HTN RVSP 53mmHg. Echo done 06/2018 showed EF 45-50%, mod LVH. Past History Past Medical History: acute PR, CAD, heart failure, hypertension Past Surgical History: cholecystectomy, Other (Cardiac stent placement) Social history: , smoking. denies: alcohol abuse, prescription drug abuse Family history: diabetes, hypertension Medications and Allergies Allergies Allergy/AdvReac Type Severity Reaction Status Date / Time Penicillins Allergy Anaphylaxis Verified 10/28/13 15:50 Home Medications Medication Instructions Recorded Confirmed Last Taken Type Furosemide 40 mg PO DAILY 10/28/13 10/06/19 10/28/13 History Aspirin EC [Halfprin EC] 81 mg PO QDAY #30 tablet 10/30/13 10/06/19 Unknown Rx Metoprolol [Lopressor TAB] 50 mg PO BID #60 tablet 10/30/13 10/06/19 Unknown Rx ALBUTEROL NEB's 0.083 inh PO Q6H 10/06/19 10/06/19 Unknown History Albuterol INH(or & Nicu Only) 6.7 gm PO Q6H PRN 10/06/19 10/06/19 Unknown History Aspirin [Aspirin BABY CHEW TAB] 81 mg PO DAILY 10/06/19 10/06/19 Unknown History AtorvaSTATin 40 mg PO DAILY 10/06/19 10/06/19 Unknown History Budesonide/Formoterol Fumarate 10.2 gm PO 10/06/19 Unknown History [Budesonide-Formoterol 160-4.5] Celecoxib [celeBREX] 200 mg PO DAILY 10/06/19 10/06/19 Unknown History Clopidogrel [Plavix] 75 mg PO QWEEK 10/06/19 10/06/19 Unknown History Dulaglutide [Trulicity] 0.75 mg SQ 10/06/19 Unknown History HumuLIN 70/30 Kwikpen 15 units SQ BID 10/06/19 10/06/19 Unknown History Insulin Glargine,Hum.rec.anlog 20 units SQ QHS 10/06/19 10/06/19 Unknown History [Lantus Solostar] Losartan [Cozaar] 50 mg PO DAILY 10/06/19 10/06/19 Unknown History Nitroglycerin [Nitrostat] 0.4 mg SL PRN 10/06/19 10/06/19 Unknown History Symbicort 160-4.5 Mcg Inhaler 10/06/19 Unknown History cloNIDine [Catapres] 0.2 mg PO BID 10/06/19 10/06/19 Unknown History metFORMIN 500 mg PO BID 10/06/19 10/06/19 Unknown History Active Meds: Active Medications Acetaminophen (Tylenol) 650 mg PO Q4H PRN PRN Reason: Pain MILD(1-3)/Fever >100.5/ALAS Albuterol (Proventil) 2.5 mg IH Q4HRT PRN PRN Reason: Shortness Of Breath Albuterol/Ipratropium (Duoneb *Not For Prn Use*) 1 ampul IH TIDRT [facility] Last Admin: 10/07/19 07:50 Dose: Not Given Documented by: Arformoterol Tartrate (Brovana Nebu) 15 mcg IH Q12HRT [facility] Last Admin: 10/07/19 07:50 Dose: 15 mcg Documented by: Aspirin (Baby Aspirin) 81 mg PO DAILY [facility] Last Admin: 10/07/19 09:51 Dose: 81 mg Documented by: Atorvastatin Calcium (Lipitor) 40 mg PO QHS [facility] Last Admin: 10/06/19 22:43 Dose: 40 mg Documented by: Budesonide (Pulmicort) 0.5 mg IH Q12HRT [facility] Last Admin: 10/07/19 07:50 Dose: 0.5 mg Documented by: Celecoxib (Celebrex) 200 mg PO DAILY [facility] Last Admin: 10/07/19 10:07 Dose: 200 mg Documented by: Clopidogrel Bisulfate (Plavix) 75 mg PO DAILY [facility] Last Admin: 10/07/19 09:51 Dose: 75 mg Documented by: Ezetimibe (Zetia) 10 mg PO QHS [facility] Enoxaparin Sodium (Enoxaparin) 40 mg SUB-Q QDAY@2200 [facility] Last Admin: 10/06/19 22:43 Dose: 40 mg Documented by: Famotidine (Pepcid) 20 mg PO QDAY [facility] Last Admin: 10/07/19 09:50 Dose: 20 mg Documented by: Furosemide (Lasix) 40 mg IV BID@0600,1800 [facility] Last Admin: 10/07/19 06:04 Dose: 40 mg Documented by: Hydralazine HCl (Apresoline) 10 mg IV Q6HR PRN PRN Reason: SBP > 160 Last Admin: 10/07/19 06:04 Dose: 10 mg Documented by: Hydralazine HCl (Apresoline) 50 mg PO Q8HR [facility] Insulin Human Lispro (Humalog) 0 unit SUB-Q [facility]; Protocol Last Admin: 10/07/19 09:56 Dose: 2 unit Documented by: Isosorbide Mononitrate (Imdur) 30 mg PO QDAY [facility] Levofloxacin (Levaquin) 500 mg PO Q24H [facility] Last Admin: 10/06/19 17:58 Dose: 500 mg Documented by: Losartan Potassium (Cozaar) 100 mg PO DAILY [facility] Methylprednisolone Sodium Succinate (Solu-Medrol) 40 mg IV Q12H [facility] Last Admin: 10/07/19 09:56 Dose: 40 mg Documented by: Metoprolol Tartrate (Metoprolol) 50 mg PO BID [facility] Nitroglycerin (Nitrostat) 0.4 mg SL PRN PRN PRN Reason: Chest Pain Ondansetron HCl (Zofran) 4 mg IV Q8H PRN PRN Reason: Nausea And Vomiting Oxycodone/Acetaminophen (Percocet 5/325) 1 tab PO Q6H PRN PRN Reason: Pain, Moderate (4-6) Last Admin: 10/07/19 04:23 Dose: 1 tab Documented by: Sodium Chloride (Sodium Chloride Flush Syringe 10 Ml) 10 ml IV BID ANN MARIE Last Admin: 10/07/19 09:59 Dose: 10 ml Documented by: Sodium Chloride (Sodium Chloride Flush Syringe 10 Ml) 10 ml IV PRN PRN PRN Reason: LINE FLUSH Last Admin: 10/07/19 06:05 Dose: 10 ml Documented by: Review of Systems Constitutional: no fever, no chills, no sweats Ears, nose, mouth and throat: no ear pain, no nose pain, no sinus pressure, no sinus pain Cardiovascular: chest pain, orthopnea, edema, shortness of breath, dyspnea on exertion, paroxysmal nocturnal dyspnea, high blood pressure, leg edema, decreased exercise tolerance, no palpitations, no rapid/irregular heart beat, no syncope, no lightheadedness Respiratory: cough, shortness of breath, dyspnea on exertion, no congestion, no wheezing Gastrointestinal: no abdominal pain, no nausea, no vomiting, no diarrhea, no constipation, no change in bowel habits Genitourinary Female: no pelvic pain, no flank pain, no dysuria, no urinary frequency, no urgency Musculoskeletal: no neck stiffness, no neck pain, no shooting arm pain, no arm numbness/tingling, no low back pain, no shooting leg pain Integumentary: no rash, no pruritis, no redness, no sores, no wounds Neurological: no head injury, no paralysis, no weakness, no parathesias, no numbness, no tingling, no seizures, no syncope Psychiatric: no anxiety Endocrine: no cold intolerance, no heat intolerance Hematologic/Lymphatic: no easy bruising Allergic/Immunologic: no urticaria Physical Examination Vital Signs Temp Pulse Resp BP Pulse Ox 98.6 F 104 H 20 214/140 94 10/06/19 10:22 10/06/19 10:22 10/06/19 10:22 10/06/19 10:22 10/06/19 10:22 General appearance: no acute distress HEENT: Positive: PERRL, Normocephaly, Mucus Membranes Moist Neck: Positive: neck supple, trachea midline Cardiac: Positive: Reg Rate and Rhythm, S1/S2 Lungs: Positive: Decreased Breath Sounds Neuro: Positive: Grossly Intact Abdomen: Negative: Tender Skin: Negative: Rash Musculoskeletal: No Pain Extremities: Present: +1 Edema Results 10/06/19 11:26 10/07/19 04:28 Cardiac Enzymes 10/06/19 10/06/19 Range/Units 10:56 11:00 AST 15 (5-40) units/L Lactate Dehydrogenase 379 H 600 H (91-180) units/L Coagulation 10/06/19 Range/Units 11:26 PT 13.8 (12.2-14.9) Sec. INR 1.08 (0.87-1.13) APTT 31.5 (24.2-36.6) Sec. CBC 10/06/19 Range/Units 11:26 WBC 8.0 (4.5-11.0) K/mm3 RBC 4.97 (3.65-5.03) M/mm3 Hgb 9.2 L (10.1-14.3) gm/dl Hct 30.6 (30.3-42.9) % Plt Count 364 (140-440) K/mm3 Lymph # 1.2 (1.2-5.4) K/mm3 [place] # 0.7 (0.0-0.8) K/mm3 Eos # 0.7 H (0.0-0.4) K/mm3 Baso # 0.1 (0.0-0.1) K/mm3 Comprehensive Metabolic Panel 10/06/19 10/06/19 10/07/19 Range/Units 10:56 11:00 04:28 Sodium 140 136 L (137-145) mmol/L Potassium 4.6 5.4 H (3.6-5.0) mmol/L Chloride 103.6 99.7 (98-107) mmol/L Carbon Dioxide 25 21 L (22-30) mmol/L BUN 16 20 H (7-17) mg/dL Creatinine 0.6 L 0.7 (0.7-1.2) mg/dL Glucose 119 H 120 H 187 H (65-100) mg/dL Calcium 9.0 9.3 (8.4-10.2) mg/dL AST 15 (5-40) units/L ALT 8 (7-56) units/L Alkaline Phosphatase 177 H (35-129) units/L Total Protein 7.4 (6.3-8.2) g/dL Albumin 3.8 L (3.9-5) g/dL - Imaging and Cardiology Echo: report reviewed (04/2019 showed EF 35-40%, mild LVH, restrictive diastolic filling, moderate pulm HTN, RVSP 53mmHg. ) EKG: report reviewed, image reviewed EKG interpretations - Telemetry EKG Rhythm: Sinus Rhythm - EKG Sinus rhythms and dysrhythmias: sinus rhythm Assessment and Plan Cont GDMT and IV lasix BID as tolerated. Optimize anti-hypertensive regimen. Chest pain appears pleuritic. AMI r/o. No plans for repeat ischemic evaluation at this time. F/u pulmonary recs. The patient has been seen in conjunction with Dr. Hernandez who agrees with the assessment and plan of care. - Patient Problems (1) Acute on chronic HFrEF (heart failure with reduced ejection fraction) Current Visit: Yes Status: Acute (2) Cardiomyopathy Current Visit: Yes Status: Chronic (3) Acute on chronic respiratory failure Current Visit: Yes Status: Acute (4) Accelerated hypertension Current Visit: Yes Status: Acute (5) Chest pain Current Visit: Yes Status: Acute Plan to address problem: appears pleuritic (6) COPD (chronic obstructive pulmonary disease) Current Visit: Yes Status: Chronic (7) Coronary artery disease Current Visit: Yes Status: Chronic Qualifiers: Associated angina: without angina (8) Stented coronary artery Current Visit: Yes Status: Chronic (9) Hyperlipemia Current Visit: Yes Status: Chronic (10) Morbid obesity with body mass index of 40.0-49.9 Current Visit: Yes Status: Acute (11) Sleep apnea Current Visit: Yes Status: Chronic (12) Pulmonary hypertension Current Visit: Yes Status: Chronic
[2019-10-07] MEDS: hydrALAZINE 25 MG TAB PO SCH ×2 (13:04→22:51)
[2019-10-07] MEDS: LOSARTAN 50 MG TAB PO SCH (13:05)
--- NOTE | 2019-10-07 14:05 | Progress Note ---
Assessment and Plan Acute hypoxemic respiratory failure. Acute chronic obstructive pulmonary disease exacerbation. Acute congestive heart failure exacerbation. Mild pulmonary edema. Obstructive sleep apnea. Morbid obesity. Tobacco use disorder. Diabetes. Hypertensive emergency. Anemia that is microcytic. Elevated serum BNP - continue supplemental oxygen to keep O2 sats>90% - optimize cardiac function per cardiology - continue empiric diuresis while monitoring electrolytes and hemodynamics - Nocturnal BIPAP and prn daytime use - no indication for empiric antibiotics acutely - continue bronchodilators with pulmonary hygiene per RT - no indication for systemic steroids - Accucheck with glycemic control for target BG < 180 mg/dl - VTE prophylaxis - Smoking cessation counselling done at the bedside - Nicotine withdrawal precautions - Cardioprotective measures, heart failure measures and education - PT/OT to Increase activity as tolerated - Weight loss and life style modifications - CXR and ABG prn - Influenza and pneumonia vaccination per protocol - Blood pressure control - continue other care per attending / other conbsultants ... re-evaluate in am & prn Subjective Date of service: 10/07/19 Principal diagnosis: Ac Hypoxemic Resp failure; AE-COPD; AE-CHF; HTNsive Urgency; ADAN-OHS Interval history: Patient is seen today for: Acute Hypoxemic and Hypercapnic Respiratory failure; AE-COPD; Acute CHF exacerbation; Hypertensive Urgency; ADAN-OHS; Tobacco use disorder-nicotine dependence; Morbid obesity Seen and examined at bedside; 24hour events reviewed; nursing and respiratory care staff consulted; no adverse overnight events reported to me; resting peac efully in bed; feels better; No chest pains or palpitations Objective Vital Signs - 12hr 10/07/19 10/07/19 10/07/19 04:11 06:04 07:47 Temperature 98.1 F Pulse Rate 92 H Pulse Rate [ Bilateral] Respiratory 20 Rate Respiratory Rate [Bilateral ] Blood Pressure 175/120 201/120 O2 Sat by Pulse 99 97 Oximetry 10/07/19 10/07/19 10/07/19 07:50 08:25 12:08 Temperature 97.7 F 97.8 F Pulse Rate 78 79 Pulse Rate [ 75 Bilateral] Respiratory 17 17 Rate Respiratory 20 Rate [Bilateral ] Blood Pressure 150/77 187/101 O2 Sat by Pulse 97 95 Oximetry 10/07/19 13:29 Temperature Pulse Rate Pulse Rate [ 83 Bilateral] Respiratory Rate Respiratory 20 Rate [Bilateral ] Blood Pressure O2 Sat by Pulse Oximetry Constitutional: appears uncomfortable, other (elderly obese AAF with mildly increased respiratory effort at rest) Eyes: non-icteric ENT: oropharynx moist Neck: supple, no lymphadenopathy, no JVD Effort: mildly labored Ascultation: Bilateral: diminished breath sounds, rhonchi Percussion: Bilateral: not dull Cardiovascular: regular rate and rhythm Gastrointestinal: normoactive bowel sounds, soft, non-tender, non-distended Integumentary: rash Extremities: no cyanosis, no edema, pulses normal, no ischemia or petechiae Neurologic: normal mental status, non-focal exam, pupils equal and round, motor strength normal and Psychiatric: anxious CBC and BMP: 10/06/19 11:26 10/08/19 05:10 ABG, PT/INR, D-dimer: PT/INR, D-dimer PT 13.8 Sec. (12.2-14.9) 10/06/19 11:26 INR 1.08 (0.87-1.13) 10/06/19 11:26 D-Dimer 178.53 ng/mlDDU (0-234) 10/06/19 11:26 Abnormal lab findings: Abnormal Labs 10/06/19 10/06/19 10/06/19 10:56 10:57 11:00 Hgb MCV MCH RDW [place] % (Auto) Eos % (Auto) Eos # Sodium Potassium Carbon Dioxide BUN Creatinine 0.6 L Glucose 119 H 120 H POC Glucose Alkaline Phosphatase 177 H Lactate Dehydrogenase 379 H 600 H C-Reactive Protein 1.80 H 1.80 H NT-Pro-B Natriuret Pep 1182 H Albumin 3.8 L 10/06/19 10/06/19 10/07/19 11:26 20:51 04:28 Hgb 9.2 L MCV 62 L MCH 19 L RDW 23.1 H [place] % (Auto) 8.1 H Eos % (Auto) 8.9 H Eos # 0.7 H Sodium 136 L Potassium 5.4 H Carbon Dioxide 21 L BUN 20 H Creatinine Glucose 187 H POC Glucose 226 H Alkaline Phosphatase Lactate Dehydrogenase C-Reactive Protein NT-Pro-B Natriuret Pep Albumin 10/07/19 10/07/19 09:53 12:19 Hgb MCV MCH RDW [place] % (Auto) Eos % (Auto) Eos # Sodium Potassium Carbon Dioxide BUN Creatinine Glucose POC Glucose 199 H 194 H Alkaline Phosphatase Lactate Dehydrogenase C-Reactive Protein NT-Pro-B Natriuret Pep Albumin Chest x-ray: image reviewed Allied health notes reviewed: nursing
--- NOTE | 2019-10-07 17:13 | Progress Note ---
Assessment and Plan - Patient Problems (1) Acute and chronic respiratory failure Current Visit: Yes Status: Acute Qualifiers: Respiratory failure complication: hypoxia Qualified Code(s): J96.21 - Acute and chronic respiratory failure with hypoxia Plan to address problem: Submental oxygen, pulse oximetry, chest x-ray, nebulizer therapy, noninvasive positive pressure ventilation as clinically indicated, pulmonary team consulted in ED. (2) Congestive heart failure Current Visit: Yes Status: Acute Qualifiers: Heart failure type: systolic Heart failure chronicity: acute on chronic Qualified Code(s): I50.23 - Acute on chronic systolic (congestive) heart failure Plan to address problem: Strict I's/O, monitor urine output every shift, daily weight, pulse oximetry, diuretic therapy with Lasix, blood pressure control. Hospitalist nebulizer therapy, BNP, chest x-ray, cardiology consulted in ED. (3) Accelerated hypertension Current Visit: Yes Status: Acute Plan to address problem: Monitor blood pressure every shift, IV hydralazine every 6 hours as needed for systolic blood pressure greater than 155, resume prehospital antihypertensive therapy. (4) Obesity hypoventilation syndrome Current Visit: Yes Status: Acute Plan to address problem: Submental oxygen, pulse oximetry, nebulizer therapy, noninvasive positive pressure ventilation as clinically indicated, outpatient pulmonary follow-up for sleep study. (5) COPD with exacerbation Current Visit: Yes Status: Acute Plan to address problem: Supplemental oxygen, nebulizer therapy, IV steroid therapy, pulmonology team consulted in ED. (6) Coronary artery disease Current Visit: Yes Status: Chronic Qualifiers: Associated angina: without angina Plan to address problem: Low-cholesterol diet, risk factor reduction therapy, dual antiplatelet therapy, supportive care. (7) Morbid obesity with body mass index of 40.0-49.9 Current Visit: Yes Status: Acute Plan to address problem: Balanced diet, increase physical activity at discharge, outpatient bariatric surgery follow-up. (8) Advance care planning Current Visit: Yes Status: Acute Plan to address problem: Disease education conducted, patient acknowledges understanding and agreement with care plan, patient is full code, +30 minutes. (9) DVT prophylaxis Current Visit: No Status: Acute Plan to address problem: SCD to bilateral lower extremities while in bed, patient is ambulatory History Interval history: 59 YO Female HD #2 with CHF Decompensation, Acute on Chronic Respiratory Failure, COPD Exacerbation, Accelerated HTN. Patient states that she feels somewhat better today. Patient acknowledges response to diuretic and steroid therapy. Patient acknowledges improvement in dyspnea on exertion as well as dyspnea at rest. Patient denies fever, chills, chest pain, palpitation. No reported nursing events overnight. Hospitalist Physical - Constitutional Vitals: Temp Pulse Resp BP Pulse Ox 98.0 F 74 17 155/87 96 10/07/19 16:25 10/07/19 16:25 10/07/19 16:25 10/07/19 16:25 10/07/19 16:25 General appearance: Present: no acute distress - EENT Eyes: Present: PERRL, EOM intact - Neck Neck: Present: supple - Respiratory Respiratory: bilateral: diminished - Cardiovascular Rhythm: regular Heart Sounds: Present: S1 & S2 - Extremities Extremities: no ischemia Extremity abnormal: edema Peripheral Pulses: within normal limits - Abdominal General gastrointestinal: soft, non-tender, non-distended - Integumentary Integumentary: Present: clear, warm, dry - Psychiatric Psychiatric: appropriate mood/affect, cooperative - Neurologic Neurologic: CNII-XII intact HEART Score - HEART Score Troponin: Troponin T < 0.010 ng/mL (0.00-0.029) 10/06/19 17:00 Results - Labs CBC & Chem 7: 10/06/19 11:26 10/07/19 04:28 Labs: Laboratory Last Values WBC 8.0 K/mm3 (4.5-11.0) 10/06/19 11: RBC 4.97 M/mm3 (3.65-5.03) 10/06/19 11:26 Hgb 9.2 gm/dl (10.1-14.3) L 10/06/19 11:26 Hct 30.6 % (30.3-42.9) 10/06/19 11: MCV 62 fl (79-97) L 10/06/19 11: MCH 19 pg (28-32) L 10/06/19 11:26 MCHC 30 % (30-34) 10/06/19 11:26 RDW 23.1 % (13.2-15.2) H 10/06/19 11:26 Plt Count 364 K/mm3 (140-440) 10/06/19 11:26 Lymph % (Auto) 15.2 % (13.4-35.0) 10/06/19 11:26 [place] % (Auto) 8.1 % (0.0-7.3) H 10/06/19 11:26 Eos % (Auto) 8.9 % (0.0-4.3) H 10/06/19 11:26 Baso % (Auto) 1.2 % (0.0-1.8) 10/06/19 11:26 Lymph # 1.2 K/mm3 (1.2-5.4) 10/06/19 11:26 [place] # 0.7 K/mm3 (0.0-0.8) 10/06/19 11:26 Eos # 0.7 K/mm3 (0.0-0.4) H 10/06/19 11:26 Baso # 0.1 K/mm3 (0.0-0.1) 10/06/19 11: Seg Neutrophils % 66.6 % (40.0-70.0) 10/06/19 11: Seg Neutrophils # 5.3 K/mm3 (1.8-7.7) 10/06/19 11:26 PT 13.8 Sec. (12.2-14.9) 10/06/19 11: INR 1.08 (0.87-1.13) 10/06/19 11:26 APTT 31.5 Sec. (24.2-36.6) 10/06/19 11:26 D-Dimer 178.53 ng/mlDDU (0-234) 10/06/19 11:26 Sodium 136 mmol/L (137-145) L 10/07/19 04:28 Potassium 5.4 mmol/L (3.6-5.0) H 10/07/19 04:28 Chloride 99.7 mmol/L (98-107) 10/07/19 04:28 Carbon Dioxide 21 mmol/L (22-30) L 10/07/19 04:28 Anion Gap 21 mmol/L 10/07/19 04:28 BUN 20 mg/dL (7-17) H 10/07/19 04:28 Creatinine 0.7 mg/dL (0.7-1.2) 10/07/19 04:28 Estimated GFR > 60 ml/min 10/07/19 04:28 BUN/Creatinine Ratio 29 % 10/07/19 04:28 Glucose 187 mg/dL (65-100) H 10/07/19 04:28 POC Glucose 229 (70-105) H 10/07/19 16:36 Lactic Acid 1.30 mmol/L (0.7-2.0) 10/06/19 11:26 Calcium 9.3 mg/dL (8.4-10.2) 10/07/19 04:28 Magnesium 2.10 mg/dL (1.7-2.3) 10/06/19 11:26 Ferritin 23.4 ng/mL (13.0-400.0) 10/06/19 11:26 Total Bilirubin 0.20 mg/dL (0.1-1.2) 10/06/19 10:56 AST 15 units/L (5-40) 10/06/19 10:56 ALT 8 units/L (7-56) 10/06/19 10:56 Alkaline Phosphatase 177 units/L (35-129) H 10/06/19 10:56 Lactate Dehydrogenase 600 units/L (91-180) H 10/06/19 11:00 Total Creatine Kinase 80 units/L (30-135) 10/06/19 10:57 Troponin T < 0.010 ng/mL (0.00-0.029) 10/06/19 17:00 C-Reactive Protein 1.80 mg/dL (0.00-1.30) H 10/06/19 11:00 NT-Pro-B Natriuret Pep 1182 pg/mL (0-900) H 10/06/19 10:57 Total Protein 7.4 g/dL (6.3-8.2) 10/06/19 10:56 Albumin 3.8 g/dL (3.9-5) L 10/06/19 10:56 Albumin/Globulin Ratio 1.1 % 10/06/19 10:56 Procalcitonin < 0.05 ng/mL (<0.15) 10/06/19 11:26 TSH 1.330 mlU/mL (0.270-4.200) 10/06/19 11:26 Free T4 1.23 ng/dL (0.76-1.46) 10/06/19 11:26 Microbiology: Microbiology 10/06/19 14:55 Peripheral/Venous Blood Culture - Preliminary NO GROWTH AFTER 24 HOURS 10/06/19 14:55 Peripheral/Venous Blood Culture - Preliminary NO GROWTH AFTER 24 HOURS Fabian/IV: Voiding Method Toilet IV Catheter Type [Left Forearm INT / Saline Lock ] Active Medications - Current Medications Current Medications: Generic Name Dose Route Start Last Admin Trade Name Freq PRN Reason Stop Dose Admin Acetaminophen 650 mg 10/06/19 13:13 10/07/19 13:04 Tylenol PO 650 mg Q4H PRN Administration Pain MILD(1-3)/Fever >100.5/ALAS Albuterol 2.5 mg 10/06/19 17:39 Proventil IH Q4HRT PRN Shortness Of Breath Albuterol/Ipratropium 1 ampul 10/07/19 08:00 10/07/19 13:29 Duoneb *Not For Prn Use* IH 1 ampul TIDRT ANN MARIE Administration Arformoterol Tartrate 15 mcg 10/06/19 20:00 10/07/19 07:50 Brovana Nebu IH 15 mcg Q12HRT ANN MARIE Administration Aspirin 81 mg 10/07/19 10:00 10/07/19 09:51 Baby Aspirin PO 81 mg DAILY ANN MARIE Administration Atorvastatin Calcium 40 mg 10/06/19 22:00 10/06/19 22:43 Lipitor PO 40 mg QHS ANN MARIE Administration Budesonide 0.5 mg 10/06/19 20:00 10/07/19 07:50 Pulmicort IH 0.5 mg Q12HRT ANN MARIE Administration Celecoxib 200 mg 10/07/19 10:00 10/07/19 10:07 Celebrex PO 200 mg DAILY ANN MARIE Administration Clopidogrel Bisulfate 75 mg 10/06/19 10:00 10/07/19 09:51 Plavix PO 75 mg DAILY ANN MARIE Administration Ezetimibe 10 mg 10/07/19 22:00 Zetia PO QHS ANN MARIE Enoxaparin Sodium 40 mg 10/06/19 22:00 10/06/19 22:43 Enoxaparin SUB-Q 40 mg QDAY@2200 ANN MARIE Administration Famotidine 20 mg 10/07/19 10:00 10/07/19 09:50 Pepcid PO 20 mg QDAY ANN MARIE Administration Furosemide 40 mg 10/06/19 18:00 10/07/19 06:04 Lasix IV 40 mg BID@0600,1800 ANN MARIE Administration Hydralazine HCl 10 mg 10/06/19 18:15 10/07/19 06:04 Apresoline IV 10 mg Q6HR PRN Administration SBP > 160 Hydralazine HCl 50 mg 10/07/19 14:00 10/07/19 13:04 Apresoline PO 50 mg Q8HR ANN MARIE Administration Insulin Human Lispro 0 unit 10/06/19 22:00 10/07/19 13:04 Humalog SUB-Q 2 unit ACHS ANN MARIE Administration Protocol Isosorbide Mononitrate 30 mg 10/07/19 11:00 10/07/19 13:04 Imdur PO 30 mg QDAY ANN MARIE Administration Levofloxacin 500 mg 10/06/19 18:00 10/06/19 17:58 Levaquin PO 10/10/19 18:01 500 mg Q24H ANN MARIE Administration Lorazepam 1 mg 10/07/19 17:11 Ativan IV Q6H PRN Agitation Losartan Potassium 100 mg 10/07/19 11:00 10/07/19 13:05 Cozaar PO 100 mg DAILY ANN MARIE Administration Methylprednisolone Sodium Succinate 40 mg 10/06/19 22:00 10/07/19 09:56 Solu-Medrol IV 40 mg Q12H ANN MARIE Administration Metoprolol Tartrate 50 mg 10/07/19 11:00 10/07/19 13:05 Metoprolol PO 50 mg BID ANN MARIE Administration Nitroglycerin 0.4 mg 10/06/19 14:00 Nitrostat SL PRN PRN Chest Pain Ondansetron HCl 4 mg 10/06/19 13:13 Zofran IV Q8H PRN Nausea And Vomiting Oxycodone/Acetaminophen 1 tab 10/06/19 18:14 10/07/19 04:23 Percocet 5/325 PO 1 tab Q6H PRN Administration Pain, Moderate (4-6) Sodium Chloride 10 ml 10/06/19 22:00 10/07/19 09:59 Sodium Chloride Flush Syringe 10 Ml IV 10 ml BID ANN MARIE Administration Sodium Chloride 10 ml 10/06/19 13:13 10/07/19 06:05 Sodium Chloride Flush Syringe 10 Ml IV 10 ml PRN PRN Administration LINE FLUSH
[2019-10-07] MEDS: levoFLOXacin 500 MG TAB PO SCH (17:45)
[2019-10-07] MEDS: ENOXAPARIN 40 MG/0.4 ML INJ SUB-Q SCH (22:50)
[2019-10-07] MEDS: EZETIMIBE 10 MG TAB PO SCH (22:52)
[2019-10-07] MEDS: LORazepam 2 MG/ML VIAL IV PRN (23:02)
[2019-10-08] MEDS: FUROSEMIDE 40 MG/4 ML INJ IV SCH ×2 (06:42→18:50)
[2019-10-08] MEDS: hydrALAZINE 25 MG TAB PO SCH (06:43)
[2019-10-08 07:01] LABS: Alanine Aminotransferase 8 units/L (7-56); Albumin 3.8 g/dL (3.9-5); BUN/Creatinine Ratio 33; Blood Urea Nitrogen 33 mg/dL (7-17); Calcium 9.2 mg/dL (8.4-10.2); Hemolysis Index 8
--- NOTE | 2019-10-08 07:09 | Progress Note ---
Assessment and Plan Acute and chronic hypoxemic-hypercapnic respiratory failure. Acute chronic obstructive pulmonary disease exacerbation. Acute congestive heart failure exacerbation. Mild pulmonary edema. Obstructive sleep apnea. Morbid obesity. Tobacco use disorder. Diabetes. Hypertensive emergency. Anemia that is microcytic. Elevated serum BNP - continue supplemental oxygen to keep O2 sats>90% - optimize cardiac function per cardiology - continue empiric diuresis while monitoring electrolytes and hemodynamics - Nocturnal BIPAP and prn daytime use - no indication for empiric antibiotics at this time - continue bronchodilators with pulmonary hygiene per RT - no indication for systemic steroids - Accucheck with glycemic control for target BG < 180 mg/dl - VTE prophylaxis - Smoking cessation counselling done at the bedside - Nicotine withdrawal precautions - Cardioprotective measures, heart failure measures and education - PT/OT to Increase activity as tolerated - Weight loss and life style modifications - CXR and ABG prn - Influenza and pneumonia vaccination per protocol - Blood pressure control - continue other care per attending / other consultants -discharge planning with early outpatient follow up with her community [employer] Subjective Date of service: 10/08/19 Principal diagnosis: Ac Hypoxemic Resp failure; AE-COPD; AE-CHF; HTNsive Urgency; AADN-OHS Interval history: Patient is seen today for: Acute Hypoxemic and Hypercapnic Respiratory failure; AE-COPD; Acute CHF exacerbation; Hypertensive Urgency; ADAN-OHS; Tobacco use disorder-nicotine dependence; Morbid obesity Seen and examined at bedside; 24hour events reviewed; nursing and respiratory care staff consulted; no adverse overnight events reported to me; sitting up in chair, improving but still has some shortness of breath. Asking fro "something for my cough"; no fevers or chills; anxious. Denies any diarrhea or vomiting, no chest pains Objective - Exam Narrative Exam: Vitals reviewed Constitutional: appears uncomfortable, other (elderly obese AAF with mildly increased respiratory effort at rest) Eyes: non-icteric ENT: oropharynx moist Neck: supple, no lymphadenopathy, no JVD Effort: mildly labored Ascultation: Bilateral: diminished breath sounds, rhonchi Percussion: Bilateral: not dull Cardiovascular: regular rate and rhythm Gastrointestinal: normoactive bowel sounds, soft, non-tender, non-distended Integumentary: rash Extremities: no cyanosis, no edema, pulses normal, no ischemia or petechiae Neurologic: normal mental status, non-focal exam, pupils equal and round, motor strength normal and Psychiatric: anxious Vital Signs - 12hr 10/07/19 10/07/19 10/07/19 19:25 21:47 22:00 Temperature 97.8 F Pulse Rate 66 Pulse Rate [ 91 H Bilateral] Pulse Rate [ 66 Left Radial] Pulse Rate [ 66 Right Radial] Respiratory 20 18 Rate Respiratory 18 Rate [Bilateral ] Blood Pressure 160/90 O2 Sat by Pulse 98 98 Oximetry 10/07/19 10/07/19 10/07/19 22:09 22:51 23:00 Temperature Pulse Rate 68 67 Pulse Rate [ Bilateral] Pulse Rate [ Left Radial] Pulse Rate [ Right Radial] Respiratory Rate Respiratory Rate [Bilateral ] Blood Pressure 144/74 O2 Sat by Pulse 99 Oximetry 10/08/19 10/08/19 10/08/19 00:12 03:54 06:43 Temperature 98.0 F 98.0 F Pulse Rate 68 72 72 Pulse Rate [ Bilateral] Pulse Rate [ Left Radial] Pulse Rate [ Right Radial] Respiratory 18 18 Rate Respiratory Rate [Bilateral ] Blood Pressure 142/78 136/84 188/106 O2 Sat by Pulse 98 100 Oximetry CBC and BMP: 10/06/19 11:26 10/08/19 05:10 ABG, PT/INR, D-dimer: PT/INR, D-dimer PT 13.8 Sec. (12.2-14.9) 10/06/19 11:26 INR 1.08 (0.87-1.13) 10/06/19 11:26 D-Dimer 178.53 ng/mlDDU (0-234) 10/06/19 11:26 Abnormal lab findings: Abnormal Labs 10/06/19 10/06/19 10/06/19 10:56 10:57 11:00 Hgb MCV MCH RDW [place] % (Auto) Eos % (Auto) Eos # Sodium Potassium Carbon Dioxide BUN Creatinine 0.6 L Glucose 119 H 120 H POC Glucose Magnesium Alkaline Phosphatase 177 H Lactate Dehydrogenase 379 H 600 H C-Reactive Protein 1.80 H 1.80 H NT-Pro-B Natriuret Pep 1182 H Albumin 3.8 L 10/06/19 10/06/19 10/07/19 11:26 20:51 04:28 Hgb 9.2 L MCV 62 L MCH 19 L RDW 23.1 H [place] % (Auto) 8.1 H Eos % (Auto) 8.9 H Eos # 0.7 H Sodium 136 L Potassium 5.4 H Carbon Dioxide 21 L BUN 20 H Creatinine Glucose 187 H POC Glucose 226 H Magnesium Alkaline Phosphatase Lactate Dehydrogenase C-Reactive Protein NT-Pro-B Natriuret Pep Albumin 10/07/19 10/07/19 10/07/19 09:53 12:19 16:36 Hgb MCV MCH RDW [place] % (Auto) Eos % (Auto) Eos # Sodium Potassium Carbon Dioxide BUN Creatinine Glucose POC Glucose 199 H 194 H 229 H Magnesium Alkaline Phosphatase Lactate Dehydrogenase C-Reactive Protein NT-Pro-B Natriuret Pep Albumin 10/07/19 10/08/19 22:42 05:10 Hgb MCV MCH RDW [place] % (Auto) Eos % (Auto) Eos # Sodium 136 L Potassium Carbon Dioxide BUN 33 H Creatinine Glucose 218 H POC Glucose 125 H Magnesium 2.40 H Alkaline Phosphatase 168 H Lactate Dehydrogenase C-Reactive Protein NT-Pro-B Natriuret Pep Albumin 3.8 L
[2019-10-08] MEDS: IPRATROPIUM/ALBUTEROL SULFATE 3 ML AMPUL.NEB IH SCH ×3 (08:13→21:27)
[2019-10-08] MEDS: ARFORMOTEROL 15 MCG/2 ML NEBU IH SCH ×2 (08:13→21:29)
[2019-10-08] MEDS: BUDESONIDE 0.5 MG/2 ML NEBU IH SCH ×2 (08:13→21:27)
[2019-10-08] MEDS: INSULIN LISPRO 100 UNIT/ML SUB-Q SCH ×4 (10:33→22:34)
[2019-10-08] MEDS: CELECOXIB 200 MG CAP PO SCH (10:34)
[2019-10-08] MEDS: FAMOTIDINE 20 MG TAB PO SCH (10:36)
[2019-10-08] MEDS: LOSARTAN 50 MG TAB PO SCH (10:36)
[2019-10-08] MEDS: methylPREDNISolone Sod Succinate 40 MG/1 ML INJ IV SCH ×2 (10:36→22:34)
[2019-10-08] MEDS: CLOPIDOGREL 75 MG TAB PO SCH ×2 (10:37→10:38)
[2019-10-08] MEDS: ASPIRIN 81 MG TAB CHEW PO SCH (10:37)
[2019-10-08] MEDS: METOPROLOL TARTRATE 25 MG TAB PO SCH ×2 (10:37→22:31)
--- NOTE | 2019-10-08 12:31 | Progress Note ---
Assessment and Plan Pulm recs noted. Cont IV Lasix 40mg BID with strict I/Os. Cont BB, ARB, and Imdur. Increase PO Hydralazine to 100mg TID. Cont ASA, Plavix, and statin. Pt seen in conjunction with Dr. Hernandez, who agrees with the assessment and plan of care. - Patient Problems (1) Acute on chronic HFrEF (heart failure with reduced ejection fraction) Current Visit: Yes Status: Acute (2) Cardiomyopathy Current Visit: Yes Status: Chronic (3) Pleuritic chest pain Current Visit: Yes Status: Acute (4) Acute on chronic respiratory failure Current Visit: Yes Status: Acute (5) COPD (chronic obstructive pulmonary disease) Current Visit: Yes Status: Chronic (6) Pulmonary hypertension Current Visit: Yes Status: Chronic (7) Accelerated hypertension Current Visit: Yes Status: Acute (8) Coronary artery disease Current Visit: Yes Status: Chronic Qualifiers: Associated angina: without angina (9) Stented coronary artery Current Visit: Yes Status: Chronic (10) Hyperlipemia Current Visit: Yes Status: Chronic Qualifiers: Hyperlipidemia type: mixed hyperlipidemia Qualified Code(s): E78.2 - Mixed hyperlipidemia (11) ADAN (obstructive sleep apnea) Current Visit: Yes Status: Chronic (12) Morbid obesity Current Visit: Yes Status: Chronic Subjective Date of service: 10/08/19 Principal diagnosis: AC Hypoxemic Resp Failure; AE-COPD; AE-CHF; HTNsive Urgency; ADAN-OHS Interval history: Pt sitting up in bed comfortably upon exam. She states her breathing is much better today. No current cardiac complaints. Tele reviewed - NSR 70s with no acute events noted. Objective Last Vital Signs Temp 97.7 F 10/08/19 08:14 Pulse 78 10/08/19 10:37 Resp 20 10/08/19 10:34 BP 168/86 10/08/19 10:37 Pulse Ox 90 10/08/19 08:14 - Physical Examination General: No Apparent Distress HEENT: Positive: EOMI, Normocephaly, Mucus Membranes Moist Neck: Positive: neck supple, trachea midline. Negative: JVD/HJR Cardiac: Positive: Reg Rate and Rhythm, S1/S2 Lungs: Positive: Decreased Breath Sounds (bilaterally) Neuro: Positive: Grossly Intact, Motor Function Intact, Coordination Normal, Sensory Function Intact Abdomen: Positive: Soft, Active Bowel Sounds. Negative: Tender Skin: Negative: Rash Musculoskeletal: No Pain, Normal Range of Motion Extremities: Present: upper extr. pulses, lower extr. pulses, edema (trace BLE edema) - Labs and Meds Cardiac Enzymes 10/08/19 Range/Units 05:10 AST 8 (5-40) units/L Comprehensive Metabolic Panel 10/08/19 Range/Units 05:10 Sodium 136 L (137-145) mmol/L Potassium 4.6 (3.6-5.0) mmol/L Chloride 100.6 (98-107) mmol/L Carbon Dioxide 22 (22-30) mmol/L BUN 33 H (7-17) mg/dL Creatinine 1.0 (0.7-1.2) mg/dL Glucose 218 H (65-100) mg/dL Calcium 9.2 (8.4-10.2) mg/dL AST 8 (5-40) units/L ALT 8 (7-56) units/L Alkaline Phosphatase 168 H (35-129) units/L Total Protein 7.4 (6.3-8.2) g/dL Albumin 3.8 L (3.9-5) g/dL - Imaging and Cardiology EKG: report reviewed, image reviewed Echo: report reviewed (04/2019: EF 35-40%, mild LVH, restrictive diastolic filling, mod pHTN (RVSP 53mmHg) ) Cardiac cath: report reviewed (06/2018 with PCI of ramus with DIANELYS, left main patent, LAD patent, RCA moderate to severe tortuosity with mid stent patent, circ patent, OM1 50% with ramus 100% with successful PCI, acute diastolic dysfunction) - Telemetry EKG Rhythm: Sinus Rhythm - EKG Sinus rhythms and dysrhythmias: sinus rhythm
[2019-10-08] MEDS: hydrALAZINE 100 MG TAB PO SCH ×2 (14:08→20:36)
[2019-10-08] MEDS: guaiFENesin ER 600 MG TAB PO SCH ×2 (14:20→22:31)
--- NOTE | 2019-10-08 17:20 | Progress Note ---
Assessment and Plan - Patient Problems (1) Acute and chronic respiratory failure Current Visit: Yes Status: Acute Qualifiers: Respiratory failure complication: hypoxia Qualified Code(s): J96.21 - Acute and chronic respiratory failure with hypoxia Plan to address problem: Submental oxygen, pulse oximetry, chest x-ray, nebulizer therapy, noninvasive positive pressure ventilation as clinically indicated, pulmonary team consulted in ED. (2) Congestive heart failure Current Visit: Yes Status: Acute Qualifiers: Heart failure type: systolic Heart failure chronicity: acute on chronic Qualified Code(s): I50.23 - Acute on chronic systolic (congestive) heart failure Plan to address problem: Strict I's/O, monitor urine output every shift, daily weight, pulse oximetry, diuretic therapy with Lasix, blood pressure control. Hospitalist nebulizer therapy, BNP, chest x-ray, cardiology consulted in ED. (3) Accelerated hypertension Current Visit: Yes Status: Acute Plan to address problem: Monitor blood pressure every shift, IV hydralazine every 6 hours as needed for systolic blood pressure greater than 155, resume prehospital antihypertensive therapy. (4) Obesity hypoventilation syndrome Current Visit: Yes Status: Acute Plan to address problem: Submental oxygen, pulse oximetry, nebulizer therapy, noninvasive positive pressure ventilation as clinically indicated, outpatient pulmonary follow-up for sleep study. (5) COPD with exacerbation Current Visit: Yes Status: Acute Plan to address problem: Supplemental oxygen, nebulizer therapy, IV steroid therapy, pulmonology team consulted in ED. (6) Coronary artery disease Current Visit: Yes Status: Chronic Qualifiers: Associated angina: without angina Plan to address problem: Low-cholesterol diet, risk factor reduction therapy, dual antiplatelet therapy, supportive care. (7) Morbid obesity with body mass index of 40.0-49.9 Current Visit: Yes Status: Acute Plan to address problem: Balanced diet, increase physical activity at discharge, outpatient bariatric surgery follow-up. (8) Advance care planning Current Visit: Yes Status: Acute Plan to address problem: Disease education conducted, patient acknowledges understanding and agreement with care plan, patient is full code, +30 minutes. (9) DVT prophylaxis Current Visit: No Status: Acute Plan to address problem: SCD to bilateral lower extremities while in bed, patient is ambulatory History Interval history: 59 YO Female HD #3 with CHF Decompensation, Acute on Chronic Respiratory Failure, COPD Exacerbation, Accelerated HTN. Patient states that she feels a little bit better today. Patient acknowledges continued response to diuretic and steroid therapy. Patient acknowledges improvement in dyspnea on exertion as well as dyspnea at rest again today but continues to acknowledge decreased exercise tolerance. Patient denies fever, chills, chest pain, palpitation. No reported nursing events overnight. Hospitalist Physical - Constitutional Vitals: Temp Pulse Resp BP Pulse Ox 98.0 F 74 18 156/84 96 10/08/19 11:13 10/08/19 11:13 10/08/19 11:13 10/08/19 11:13 10/08/19 11:13 General appearance: Present: no acute distress, obese - EENT Eyes: Present: PERRL, EOM intact ENT: hearing intact - Neck Neck: Present: supple - Respiratory Respiratory: bilateral: diminished, wheezing - Cardiovascular Rhythm: regular Heart Sounds: Present: S1 & S2 - Extremities Extremities: no ischemia Extremity abnormal: edema Peripheral Pulses: within normal limits - Abdominal General gastrointestinal: soft, non-tender, non-distended - Integumentary Integumentary: Present: clear, warm, dry - Psychiatric Psychiatric: appropriate mood/affect, cooperative - Neurologic Neurologic: CNII-XII intact, moves all extremities, gait normal HEART Score - HEART Score Troponin: Troponin T < 0.010 ng/mL (0.00-0.029) 10/06/19 17:00 Results - Labs CBC & Chem 7: 10/06/19 11:26 10/08/19 05:10 Labs: Laboratory Last Values WBC 8.0 K/mm3 (4.5-11.0) 10/06/19 11: RBC 4.97 M/mm3 (3.65-5.03) 10/06/19 11:26 Hgb 9.2 gm/dl (10.1-14.3) L 10/06/19 11: Hct 30.6 % (30.3-42.9) 10/06/19 11: MCV 62 fl (79-97) L 10/06/19 11: MCH 19 pg (28-32) L 10/06/19 11: MCHC 30 % (30-34) 10/06/19 11: RDW 23.1 % (13.2-15.2) H 10/06/19 11:26 Plt Count 364 K/mm3 (140-440) 10/06/19 11:26 Lymph % (Auto) 15.2 % (13.4-35.0) 10/06/19 11:26 Hayes % (Auto) 8.1 % (0.0-7.3) H 10/06/19 11:26 Eos % (Auto) 8.9 % (0.0-4.3) H 10/06/19 11:26 Baso % (Auto) 1.2 % (0.0-1.8) 10/06/19 11:26 Lymph # 1.2 K/mm3 (1.2-5.4) 10/06/19 11: Hayes # 0.7 K/mm3 (0.0-0.8) 10/06/19 11:26 Eos # 0.7 K/mm3 (0.0-0.4) H 10/06/19 11:26 Baso # 0.1 K/mm3 (0.0-0.1) 10/06/19 11:26 Seg Neutrophils % 66.6 % (40.0-70.0) 10/06/19 11:26 Seg Neutrophils # 5.3 K/mm3 (1.8-7.7) 10/06/19 11:26 PT 13.8 Sec. (12.2-14.9) 10/06/19 11:26 INR 1.08 (0.87-1.13) 10/06/19 11:26 APTT 31.5 Sec. (24.2-36.6) 10/06/19 11:26 D-Dimer 178.53 ng/mlDDU (0-234) 10/06/19 11:26 Sodium 136 mmol/L (137-145) L 10/08/19 05:10 Potassium 4.6 mmol/L (3.6-5.0) 10/08/19 05:10 Chloride 100.6 mmol/L (98-107) 10/08/19 05:10 Carbon Dioxide 22 mmol/L (22-30) 10/08/19 05:10 Anion Gap 18 mmol/L 10/08/19 05:10 BUN 33 mg/dL (7-17) H 10/08/19 05:10 Creatinine 1.0 mg/dL (0.7-1.2) 10/08/19 05:10 Estimated GFR > 60 ml/min 10/08/19 05:10 BUN/Creatinine Ratio 33 % 10/08/19 05:10 Glucose 218 mg/dL (65-100) H 10/08/19 05:10 POC Glucose 216 (70-105) H 10/08/19 16:23 Lactic Acid 1.30 mmol/L (0.7-2.0) 10/06/19 11:26 Calcium 9.2 mg/dL (8.4-10.2) 10/08/19 05:10 Magnesium 2.40 mg/dL (1.7-2.3) H 10/08/19 05:10 Ferritin 23.4 ng/mL (13.0-400.0) 10/06/19 11:26 Total Bilirubin 0.20 mg/dL (0.1-1.2) 10/08/19 05:10 AST 8 units/L (5-40) 10/08/19 05:10 ALT 8 units/L (7-56) 10/08/19 05:10 Alkaline Phosphatase 168 units/L (35-129) H 10/08/19 05:10 Lactate Dehydrogenase 600 units/L (91-180) H 10/06/19 11:00 Total Creatine Kinase 80 units/L (30-135) 10/06/19 10:57 Troponin T < 0.010 ng/mL (0.00-0.029) 10/06/19 17:00 C-Reactive Protein 1.80 mg/dL (0.00-1.30) H 10/06/19 11:00 NT-Pro-B Natriuret Pep 1182 pg/mL (0-900) H 10/06/19 10:57 Total Protein 7.4 g/dL (6.3-8.2) 10/08/19 05:10 Albumin 3.8 g/dL (3.9-5) L 10/08/19 05:10 Albumin/Globulin Ratio 1.1 % 10/08/19 05:10 Procalcitonin < 0.05 ng/mL (<0.15) 10/06/19 11:26 TSH 1.330 mlU/mL (0.270-4.200) 10/06/19 11:26 Free T4 1.23 ng/dL (0.76-1.46) 10/06/19 11:26 Microbiology: Microbiology 10/06/19 14:55 Peripheral/Venous Blood Culture - Preliminary NO GROWTH AFTER 48 HOURS 10/06/19 14:55 Peripheral/Venous Blood Culture - Preliminary NO GROWTH AFTER 48 HOURS Fabian/IV: Voiding Method Toilet IV Catheter Type [Left Forearm INT / Saline Lock ] Active Medications - Current Medications Current Medications: Generic Name Dose Route Start Last Admin Trade Name Freq PRN Reason Stop Dose Admin Acetaminophen 650 mg 10/06/19 13:13 10/07/19 13:04 Tylenol PO 650 mg Q4H PRN Administration Pain MILD(1-3)/Fever >100.5/ALAS Albuterol 2.5 mg 10/06/19 17:39 Proventil IH Q4HRT PRN Shortness Of Breath Albuterol/Ipratropium 1 ampul 10/07/19 08:00 10/08/19 14:15 Duoneb *Not For Prn Use* IH 1 ampul TIDRT ANN MARIE Administration Arformoterol Tartrate 15 mcg 10/06/19 20:00 10/08/19 08:13 Brovana Nebu IH 15 mcg Q12HRT ANN MARIE Administration Aspirin 81 mg 10/07/19 10:00 10/08/19 10:37 Baby Aspirin PO 81 mg DAILY ANN MARIE Administration Atorvastatin Calcium 40 mg 10/06/19 22:00 10/07/19 22:50 Lipitor PO 40 mg QHS ANN MARIE Administration Budesonide 0.5 mg 10/06/19 20:00 10/08/19 08:13 Pulmicort IH 0.5 mg Q12HRT ANN MARIE Administration Celecoxib 200 mg 10/07/19 10:00 10/08/19 10:34 Celebrex PO 200 mg DAILY ANN MARIE Administration Clopidogrel Bisulfate 75 mg 10/06/19 10:00 10/08/19 10:38 Plavix PO 75 mg DAILY ANN MARIE Administration Ezetimibe 10 mg 10/07/19 22:00 10/07/19 22:52 Zetia PO 10 mg QHS ANN MARIE Administration Enoxaparin Sodium 40 mg 10/06/19 22:00 10/07/19 22:50 Enoxaparin SUB-Q 40 mg QDAY@2200 ANN MARIE Administration Famotidine 20 mg 10/07/19 10:00 10/08/19 10:36 Pepcid PO 20 mg QDAY ANN MARIE Administration Furosemide 40 mg 10/06/19 18:00 10/08/19 06:42 Lasix IV 40 mg BID@0600,1800 ANN MARIE Administration Guaifenesin 600 mg 10/08/19 14:00 10/08/19 14:20 Mucinex Er PO 600 mg BID ANN MARIE Administration Hydralazine HCl 10 mg 10/06/19 18:15 10/07/19 06:04 Apresoline IV 10 mg Q6HR PRN Administration SBP > 160 Hydralazine HCl 100 mg 10/08/19 14:00 10/08/19 14:08 Apresoline PO 100 mg TID ANN MARIE Administration Insulin Human Lispro 0 unit 10/06/19 22:00 10/08/19 14:20 Humalog SUB-Q 4 unit ACHS ANN MARIE Administration Protocol Isosorbide Mononitrate 30 mg 10/07/19 11:00 10/08/19 10:37 Imdur PO 30 mg QDAY ANN MARIE Administration Levofloxacin 500 mg 10/06/19 18:00 10/07/19 17:45 Levaquin PO 10/10/19 18:01 500 mg Q24H ANN MARIE Administration Lorazepam 1 mg 10/07/19 17:11 10/07/19 23:02 Ativan IV 1 mg Q6H PRN Administration Agitation Losartan Potassium 100 mg 10/07/19 11:00 10/08/19 10:36 Cozaar PO 100 mg DAILY ANN MARIE Administration Methylprednisolone Sodium Succinate 40 mg 10/06/19 22:00 10/08/19 10:36 Solu-Medrol IV 40 mg Q12H ANN MARIE Administration Metoprolol Tartrate 50 mg 10/07/19 11:00 10/08/19 10:37 Metoprolol PO 50 mg BID ANN MARIE Administration Nitroglycerin 0.4 mg 10/06/19 14:00 Nitrostat SL PRN PRN Chest Pain Ondansetron HCl 4 mg 10/06/19 13:13 Zofran IV Q8H PRN Nausea And Vomiting Oxycodone/Acetaminophen 1 tab 10/06/19 18:14 10/07/19 04:23 Percocet 5/325 PO 1 tab Q6H PRN Administration Pain, Moderate (4-6) Sodium Chloride 10 ml 10/06/19 22:00 10/08/19 10:38 Sodium Chloride Flush Syringe 10 Ml IV 10 ml BID ANN MARIE Administration Sodium Chloride 10 ml 10/06/19 13:13 10/07/19 06:05 Sodium Chloride Flush Syringe 10 Ml IV 10 ml PRN PRN Administration LINE FLUSH
[2019-10-08] MEDS: levoFLOXacin 500 MG TAB PO SCH (18:50)
[2019-10-08] MEDS: ENOXAPARIN 40 MG/0.4 ML INJ SUB-Q SCH (22:30)
[2019-10-08] MEDS: EZETIMIBE 10 MG TAB PO SCH (22:31)
[2019-10-08] MEDS: LORazepam 2 MG/ML VIAL IV PRN (22:46)
[2019-10-09] MEDS: FUROSEMIDE 40 MG/4 ML INJ IV SCH (06:13)
[2019-10-09] MEDS: BUDESONIDE 0.5 MG/2 ML NEBU IH SCH ×2 (07:41→20:21)
[2019-10-09] MEDS: ARFORMOTEROL 15 MCG/2 ML NEBU IH SCH ×2 (07:41→20:21)
[2019-10-09] MEDS: IPRATROPIUM/ALBUTEROL SULFATE 3 ML AMPUL.NEB IH SCH ×3 (07:41→20:20)
[2019-10-09] MEDS: INSULIN LISPRO 100 UNIT/ML SUB-Q SCH ×4 (08:56→21:38)
[2019-10-09] MEDS: guaiFENesin ER 600 MG TAB PO SCH ×2 (09:37→21:27)
[2019-10-09] MEDS: CELECOXIB 200 MG CAP PO SCH (09:37)
[2019-10-09] MEDS: CLOPIDOGREL 75 MG TAB PO SCH (09:37)
[2019-10-09] MEDS: FAMOTIDINE 20 MG TAB PO SCH (09:37)
[2019-10-09] MEDS: METOPROLOL TARTRATE 25 MG TAB PO SCH ×2 (09:38→21:27)
[2019-10-09] MEDS: hydrALAZINE 100 MG TAB PO SCH ×3 (09:38→20:18)
[2019-10-09] MEDS: ASPIRIN 81 MG TAB CHEW PO SCH (09:38)
[2019-10-09] MEDS: LOSARTAN 50 MG TAB PO SCH (09:39)
[2019-10-09] MEDS: methylPREDNISolone Sod Succinate 40 MG/1 ML INJ IV SCH ×2 (09:46→21:26)
--- NOTE | 2019-10-09 11:51 | Progress Note ---
Assessment and Plan Acute hypoxemic respiratory failure. Acute chronic obstructive pulmonary disease exacerbation. Acute congestive heart failure exacerbation. Mild pulmonary edema. Obstructive sleep apnea. Morbid obesity. Tobacco use disorder. Diabetes. Hypertensive emergency. Anemia that is microcytic. Elevated serum BNP - continue supplemental oxygen to keep O2 sats>90% - optimize cardiac function per cardiology - continue empiric diuresis while monitoring electrolytes and hemodynamics - Nocturnal BIPAP and prn daytime use - no indication for empiric antibiotics acutely - continue bronchodilators with pulmonary hygiene per RT - no indication for systemic steroids - Accucheck with glycemic control for target BG < 180 mg/dl - VTE prophylaxis - Smoking cessation counselling done at the bedside - Nicotine withdrawal precautions - Cardioprotective measures, heart failure measures and education - PT/OT to Increase activity as tolerated - Weight loss and life style modifications - CXR and ABG prn - Influenza and pneumonia vaccination per protocol - Blood pressure control - continue other care per attending / other conbsultants ... re-evaluate in am & prn Subjective Date of service: 10/09/19 Principal diagnosis: Ac Hypoxemic Resp failure; AE-COPD; AE-CHF; HTNsive Urgency; ADAN-OHS Interval history: Patient is seen today for: Acute Hypoxemic and Hypercapnic Respiratory failure; AE-COPD; Acute CHF exacerbation; Hypertensive Urgency; ADAN-OHS; Tobacco use disorder-nicotine dependence; Morbid obesity Seen and examined at bedside; 24hour events reviewed; nursing and respiratory care staff consulted; no adverse overnight events reported to me; resting peace fully in bed; Objective Vital Signs - 12hr 10/09/19 10/09/19 10/09/19 04:20 05:37 07:40 Temperature 98.0 F Pulse Rate 89 89 Pulse Rate [ Bilateral] Respiratory 18 Rate Respiratory Rate [Bilateral ] Blood Pressure 146/73 O2 Sat by Pulse 94 97 Oximetry 10/09/19 10/09/19 10/09/19 07:41 08:30 09:38 Temperature 97.9 F Pulse Rate 73 77 Pulse Rate [ 72 Bilateral] Respiratory 20 Rate Respiratory 18 Rate [Bilateral ] Blood Pressure 177/78 177/78 O2 Sat by Pulse 92 Oximetry 10/09/19 09:39 Temperature Pulse Rate 77 Pulse Rate [ Bilateral] Respiratory Rate Respiratory Rate [Bilateral ] Blood Pressure 177/78 O2 Sat by Pulse Oximetry Constitutional: appears uncomfortable, other (elderly obese AAF with mildly increased respiratory effort at rest) Eyes: non-icteric ENT: oropharynx moist Neck: supple, no lymphadenopathy, no JVD Effort: mildly labored Ascultation: Bilateral: diminished breath sounds, rhonchi Percussion: Bilateral: not dull Cardiovascular: regular rate and rhythm Gastrointestinal: normoactive bowel sounds, soft, non-tender, non-distended Integumentary: rash Extremities: no cyanosis, no edema, pulses normal, no ischemia or petechiae Neurologic: normal mental status, non-focal exam, pupils equal and round, motor strength normal and Psychiatric: anxious CBC and BMP: 10/06/19 11:26 10/08/19 05:10 ABG, PT/INR, D-dimer: PT/INR, D-dimer PT 13.8 Sec. (12.2-14.9) 10/06/19 11: INR 1.08 (0.87-1.13) 10/06/19 11:26 D-Dimer 178.53 ng/mlDDU (0-234) 10/06/19 11:26 Abnormal lab findings: Abnormal Labs 10/06/19 10/06/19 10/06/19 10:56 10:57 11:00 Hgb MCV MCH RDW [place] % (Auto) Eos % (Auto) Eos # Sodium Potassium Carbon Dioxide BUN Creatinine 0.6 L Glucose 119 H 120 H POC Glucose Magnesium Alkaline Phosphatase 177 H Lactate Dehydrogenase 379 H 600 H C-Reactive Protein 1.80 H 1.80 H NT-Pro-B Natriuret Pep 1182 H Albumin 3.8 L 10/06/19 10/06/19 10/07/19 11:26 20:51 04:28 Hgb 9.2 L MCV 62 L MCH 19 L RDW 23.1 H [place] % (Auto) 8.1 H Eos % (Auto) 8.9 H Eos # 0.7 H Sodium 136 L Potassium 5.4 H Carbon Dioxide 21 L BUN 20 H Creatinine Glucose 187 H POC Glucose 226 H Magnesium Alkaline Phosphatase Lactate Dehydrogenase C-Reactive Protein NT-Pro-B Natriuret Pep Albumin 10/07/19 10/07/19 10/07/19 09:53 12:19 16:36 Hgb MCV MCH RDW [place] % (Auto) Eos % (Auto) Eos # Sodium Potassium Carbon Dioxide BUN Creatinine Glucose POC Glucose 199 H 194 H 229 H Magnesium Alkaline Phosphatase Lactate Dehydrogenase C-Reactive Protein NT-Pro-B Natriuret Pep Albumin 10/07/19 10/08/19 10/08/19 22:42 05:10 08:25 Hgb MCV MCH RDW [place] % (Auto) Eos % (Auto) Eos # Sodium 136 L Potassium Carbon Dioxide BUN 33 H Creatinine Glucose 218 H POC Glucose 125 H 217 H Magnesium 2.40 H Alkaline Phosphatase 168 H Lactate Dehydrogenase C-Reactive Protein NT-Pro-B Natriuret Pep Albumin 3.8 L 10/08/19 10/08/19 10/08/19 14:19 16:23 21:13 Hgb MCV MCH RDW [place] % (Auto) Eos % (Auto) Eos # Sodium Potassium Carbon Dioxide BUN Creatinine Glucose POC Glucose 271 H 216 H 207 H Magnesium Alkaline Phosphatase Lactate Dehydrogenase C-Reactive Protein NT-Pro-B Natriuret Pep Albumin 10/09/19 08:41 Hgb MCV MCH RDW [place] % (Auto) Eos % (Auto) Eos # Sodium Potassium Carbon Dioxide BUN Creatinine Glucose POC Glucose 197 H Magnesium Alkaline Phosphatase Lactate Dehydrogenase C-Reactive Protein NT-Pro-B Natriuret Pep Albumin Allied health notes reviewed: nursing
--- NOTE | 2019-10-09 13:43 | Progress Note ---
Assessment and Plan Convert to PO Lasix 40mg qDay. Start Entresto /. Will coordinate w/Case Mgmt to provide coupon. Cont BB, Imdur, and Hydralazine. Cont ASA, Plavix, and statin. Lifestyle modifications, including diet (salt/fluid intake), weight loss, and continuance of smoking cessation discussed with pt at bedside. Currently stable cardiac status. Pt may be discharged from a Cardiology standpoint. Will schedule OP BMP in 1 week. F/u with Dr. Hernandez in our office in 2 weeks ([phone]). Pt seen in conjunction with Dr. Hernandez, who agrees with the assessment and plan of care. - Patient Problems (1) Acute on chronic HFrEF (heart failure with reduced ejection fraction) Current Visit: Yes Status: Resolved (2) Cardiomyopathy Current Visit: Yes Status: Chronic (3) Pleuritic chest pain Current Visit: Yes Status: Resolved (4) Acute on chronic respiratory failure Current Visit: Yes Status: Acute (5) COPD (chronic obstructive pulmonary disease) Current Visit: Yes Status: Chronic (6) Pulmonary hypertension Current Visit: Yes Status: Chronic (7) ADAN (obstructive sleep apnea) Current Visit: Yes Status: Chronic (8) Accelerated hypertension Current Visit: Yes Status: Resolved (9) Coronary artery disease Current Visit: Yes Status: Chronic Qualifiers: Associated angina: without angina (10) Stented coronary artery Current Visit: Yes Status: Chronic (11) Hyperlipemia Current Visit: Yes Status: Chronic Qualifiers: Hyperlipidemia type: mixed hyperlipidemia Qualified Code(s): E78.2 - Mixed hyperlipidemia (12) Morbid obesity Current Visit: Yes Status: Chronic Subjective Date of service: 10/09/19 Principal diagnosis: A/C Hypoxemic Resp Failure; AE-COPD; AE-CHF; HTNsive Urgency; ADAN-OHS Interval history: Pt sitting up in chair comfortably upon exam. She states her breathing has significantly improved. No current cardiac complaints. Tele reviewed - NSR 80s with no acute events noted. Objective Last Vital Signs Temp 97.9 F 10/09/19 08:30 Pulse 66 10/09/19 13:49 Resp 10/09/19 13:49 BP 165/90 10/09/19 11:51 Pulse Ox 92 10/09/19 08:30 - Physical Examination General: No Apparent Distress HEENT: Positive: EOMI, Normocephaly, Mucus Membranes Moist Neck: Positive: neck supple, trachea midline. Negative: JVD/HJR Cardiac: Positive: Reg Rate and Rhythm, S1/S2 Lungs: Positive: clear to auscultation (bilaterally) Neuro: Positive: Grossly Intact, Motor Function Intact, Coordination Normal, Sensory Function Intact Abdomen: Positive: Soft, Active Bowel Sounds. Negative: Tender Skin: Negative: Rash, Wound Musculoskeletal: No Pain, Normal Range of Motion Extremities: Present: upper extr. pulses, lower extr. pulses, edema (trace pedal edema) - Imaging and Cardiology EKG: report reviewed, image reviewed Echo: report reviewed (04/2019: EF 35-40%, mild LVH, restrictive diastolic filling, mod pHTN (RVSP 53mmHg) ) Cardiac cath: report reviewed (06/2018 with PCI of ramus with DIANELYS, left main patent, LAD patent, RCA moderate to severe tortuosity with mid stent patent, circ patent, OM1 50% with ramus 100% with successful PCI, acute diastolic dysfunction) - Telemetry EKG Rhythm: Sinus Rhythm - EKG Sinus rhythms and dysrhythmias: sinus rhythm - Allied health notes Allied health notes reviewed: nursing
[2019-10-09] MEDS: levoFLOXacin 500 MG TAB PO SCH (17:18)
--- NOTE | 2019-10-09 20:02 | Progress Note ---
Assessment and Plan - Patient Problems (1) Acute and chronic respiratory failure Current Visit: Yes Status: Acute Qualifiers: Respiratory failure complication: hypoxia Qualified Code(s): J96.21 - Acute and chronic respiratory failure with hypoxia Plan to address problem: Submental oxygen, pulse oximetry, chest x-ray, nebulizer therapy, noninvasive positive pressure ventilation as clinically indicated, pulmonary team consulted in ED. (2) Congestive heart failure Current Visit: Yes Status: Acute Qualifiers: Heart failure type: systolic Heart failure chronicity: acute on chronic Qualified Code(s): I50.23 - Acute on chronic systolic (congestive) heart failure Plan to address problem: Strict I's/O, monitor urine output every shift, daily weight, pulse oximetry, diuretic therapy with Lasix, blood pressure control. Hospitalist nebulizer therapy, BNP, chest x-ray, cardiology consulted in ED. (3) Accelerated hypertension Current Visit: Yes Status: Resolved Plan to address problem: Monitor blood pressure every shift, IV hydralazine every 6 hours as needed for systolic blood pressure greater than 155, resume prehospital antihypertensive therapy. (4) Obesity hypoventilation syndrome Current Visit: Yes Status: Acute Plan to address problem: Submental oxygen, pulse oximetry, nebulizer therapy, noninvasive positive pressure ventilation as clinically indicated, outpatient pulmonary follow-up for sleep study. (5) COPD with exacerbation Current Visit: Yes Status: Acute Plan to address problem: Supplemental oxygen, nebulizer therapy, IV steroid therapy, pulmonology team consulted in ED. (6) Coronary artery disease Current Visit: Yes Status: Chronic Qualifiers: Associated angina: without angina Plan to address problem: Low-cholesterol diet, risk factor reduction therapy, dual antiplatelet therapy, supportive care. (7) Morbid obesity with body mass index of 40.0-49.9 Current Visit: Yes Status: Acute Plan to address problem: Balanced diet, increase physical activity at discharge, outpatient bariatric surgery follow-up. (8) Advance care planning Current Visit: Yes Status: Acute Plan to address problem: Disease education conducted, patient acknowledges understanding and agreement with care plan, patient is full code, +30 minutes. (9) DVT prophylaxis Current Visit: No Status: Acute Plan to address problem: SCD to bilateral lower extremities while in bed, patient is ambulatory History Interval history: 59 YO Female HD #4 with CHF Decompensation, Acute on Chronic Respiratory Failure, COPD Exacerbation, Accelerated HTN. Patient states that she feels better today and continues to improve. Patient acknowledges continued response to diuretic and steroid therapy. Patient acknowledges improvement in dyspnea on exertion as well as dyspnea at rest again today . Patient denies fever, chills, chest pain, palpitation. No reported nursing events overnight. Diacharge in am on home oxygen. Hospitalist Physical - Constitutional Vitals: Temp Pulse Resp BP Pulse Ox 97.9 F 102 H 20 164/97 92 10/09/19 08:30 10/09/19 19:10 10/09/19 13:49 10/09/19 19:10 10/09/19 08:30 General appearance: Present: no acute distress, obese - EENT Eyes: Present: PERRL, EOM intact ENT: hearing intact - Neck Neck: Present: supple - Respiratory Respiratory effort: normal Respiratory: bilateral: CTA - Cardiovascular Rhythm: regular Heart Sounds: Present: S1 & S2 - Extremities Extremities: no ischemia Peripheral Pulses: within normal limits - Abdominal General gastrointestinal: soft, non-tender, non-distended - Integumentary Integumentary: Present: clear, warm, dry - Psychiatric Psychiatric: appropriate mood/affect, cooperative - Neurologic Neurologic: CNII-XII intact HEART Score - HEART Score Troponin: Troponin T < 0.010 ng/mL (0.00-0.029) 10/06/19 17:00 Results - Labs CBC & Chem 7: 10/06/19 11:26 10/08/19 05:10 Labs: Laboratory Last Values WBC 8.0 K/mm3 (4.5-11.0) 10/06/19 11: RBC 4.97 M/mm3 (3.65-5.03) 10/06/19 11:26 Hgb 9.2 gm/dl (10.1-14.3) L 10/06/19 11: Hct 30.6 % (30.3-42.9) 10/06/19 11: MCV 62 fl (79-97) L 10/06/19 11: MCH 19 pg (28-32) L 10/06/19 11: MCHC 30 % (30-34) 10/06/19 11: RDW 23.1 % (13.2-15.2) H 10/06/19 11:26 Plt Count 364 K/mm3 (140-440) 10/06/19 11:26 Lymph % (Auto) 15.2 % (13.4-35.0) 10/06/19 11:26 Rains % (Auto) 8.1 % (0.0-7.3) H 10/06/19 11:26 Eos % (Auto) 8.9 % (0.0-4.3) H 10/06/19 11:26 Baso % (Auto) 1.2 % (0.0-1.8) 10/06/19 11:26 Lymph # 1.2 K/mm3 (1.2-5.4) 10/06/19 11:26 Rains # 0.7 K/mm3 (0.0-0.8) 10/06/19 11:26 Eos # 0.7 K/mm3 (0.0-0.4) H 10/06/19 11:26 Baso # 0.1 K/mm3 (0.0-0.1) 10/06/19 11:26 Seg Neutrophils % 66.6 % (40.0-70.0) 10/06/19 11:26 Seg Neutrophils # 5.3 K/mm3 (1.8-7.7) 10/06/19 11:26 PT 13.8 Sec. (12.2-14.9) 10/06/19 11:26 INR 1.08 (0.87-1.13) 10/06/19 11:26 APTT 31.5 Sec. (24.2-36.6) 10/06/19 11:26 D-Dimer 178.53 ng/mlDDU (0-234) 10/06/19 11:26 Sodium 136 mmol/L (137-145) L 10/08/19 05:10 Potassium 4.6 mmol/L (3.6-5.0) 10/08/19 05:10 Chloride 100.6 mmol/L (98-107) 10/08/19 05:10 Carbon Dioxide 22 mmol/L (22-30) 10/08/19 05:10 Anion Gap 18 mmol/L 10/08/19 05:10 BUN 33 mg/dL (7-17) H 10/08/19 05:10 Creatinine 1.0 mg/dL (0.7-1.2) 10/08/19 05:10 Estimated GFR > 60 ml/min 10/08/19 05:10 BUN/Creatinine Ratio 33 % 10/08/19 05:10 Glucose 218 mg/dL (65-100) H 10/08/19 05:10 POC Glucose 215 (70-105) H 10/09/19 16:37 Lactic Acid 1.30 mmol/L (0.7-2.0) 10/06/19 11:26 Calcium 9.2 mg/dL (8.4-10.2) 10/08/19 05:10 Magnesium 2.40 mg/dL (1.7-2.3) H 10/08/19 05:10 Ferritin 23.4 ng/mL (13.0-400.0) 10/06/19 11:26 Total Bilirubin 0.20 mg/dL (0.1-1.2) 10/08/19 05:10 AST 8 units/L (5-40) 10/08/19 05:10 ALT 8 units/L (7-56) 10/08/19 05:10 Alkaline Phosphatase 168 units/L (35-129) H 10/08/19 05:10 Lactate Dehydrogenase 600 units/L (91-180) H 10/06/19 11:00 Total Creatine Kinase 80 units/L (30-135) 10/06/19 10:57 Troponin T < 0.010 ng/mL (0.00-0.029) 10/06/19 17:00 C-Reactive Protein 1.80 mg/dL (0.00-1.30) H 10/06/19 11:00 NT-Pro-B Natriuret Pep 1182 pg/mL (0-900) H 10/06/19 10:57 Total Protein 7.4 g/dL (6.3-8.2) 10/08/19 05:10 Albumin 3.8 g/dL (3.9-5) L 10/08/19 05:10 Albumin/Globulin Ratio 1.1 % 10/08/19 05:10 Procalcitonin < 0.05 ng/mL (<0.15) 10/06/19 11:26 TSH 1.330 mlU/mL (0.270-4.200) 10/06/19 11:26 Free T4 1.23 ng/dL (0.76-1.46) 10/06/19 11:26 Microbiology: Microbiology 10/07/19 09:50 Nares - Right MRSA Culture - Preliminary 10/06/19 14:55 Peripheral/Venous Blood Culture - Preliminary NO GROWTH AFTER 72 HOURS 10/06/19 14:55 Peripheral/Venous Blood Culture - Preliminary NO GROWTH AFTER 72 HOURS Fabian/IV: Voiding Method Toilet IV Catheter Type [Left Forearm INT / Saline Lock ] Active Medications - Current Medications Current Medications: Generic Name Dose Route Start Last Admin Trade Name Freq PRN Reason Stop Dose Admin Acetaminophen 650 mg 10/06/19 13:13 10/07/19 13:04 Tylenol PO 650 mg Q4H PRN Administration Pain MILD(1-3)/Fever >100.5/ALAS Albuterol 2.5 mg 10/06/19 17:39 Proventil IH Q4HRT PRN Shortness Of Breath Albuterol/Ipratropium 1 ampul 10/07/19 08:00 10/09/19 13:48 Duoneb *Not For Prn Use* IH 1 ampul TIDRT ANN MARIE Administration Arformoterol Tartrate 15 mcg 10/06/19 20:00 10/09/19 07:41 Brovana Nebu IH 15 mcg Q12HRT ANN MARIE Administration Aspirin 81 mg 10/07/19 10:00 10/09/19 09:38 Baby Aspirin PO 81 mg DAILY ANN MARIE Administration Atorvastatin Calcium 40 mg 10/06/19 22:00 10/08/19 22:31 Lipitor PO 40 mg QHS ANN MARIE Administration Budesonide 0.5 mg 10/06/19 20:00 10/09/19 07:41 Pulmicort IH 0.5 mg Q12HRT ANN MARIE Administration Celecoxib 200 mg 10/07/19 10:00 10/09/19 09:37 Celebrex PO 200 mg DAILY ANN MARIE Administration Clopidogrel Bisulfate 75 mg 10/06/19 10:00 10/09/19 09:37 Plavix PO 75 mg DAILY ANN MARIE Administration Ezetimibe 10 mg 10/07/19 22:00 10/08/19 22:31 Zetia PO 10 mg QHS ANN MARIE Administration Enoxaparin Sodium 40 mg 10/06/19 22:00 10/08/19 22:30 Enoxaparin SUB-Q 40 mg QDAY@2200 ANN MARIE Administration Famotidine 20 mg 10/07/19 10:00 10/09/19 09:37 Pepcid PO 20 mg QDAY ANN MARIE Administration Furosemide 40 mg 10/10/19 10:00 Lasix PO QDAY ANN MARIE Guaifenesin 600 mg 10/08/19 14:00 10/09/19 09:37 Mucinex Er PO 600 mg BID ANN MARIE Administration Hydralazine HCl 10 mg 10/06/19 18:15 10/07/19 06:04 Apresoline IV 10 mg Q6HR PRN Administration SBP > 160 Hydralazine HCl 100 mg 10/08/19 14:00 10/09/19 13:40 Apresoline PO 100 mg TID ANN MARIE Administration Insulin Human Lispro 0 unit 10/06/19 22:00 10/09/19 17:18 Humalog SUB-Q 3 unit ACHS ANN MARIE Administration Protocol Isosorbide Mononitrate 30 mg 10/07/19 11:00 10/09/19 09:39 Imdur PO 30 mg QDAY ANN MARIE Administration Levofloxacin 500 mg 10/06/19 18:00 10/09/19 17:18 Levaquin PO 10/10/19 18:01 500 mg Q24H ANN MARIE Administration Lorazepam 1 mg 10/07/19 17:11 10/08/19 22:46 Ativan IV 1 mg Q6H PRN Administration Agitation Methylprednisolone Sodium Succinate 40 mg 10/06/19 22:00 10/09/19 09:46 Solu-Medrol IV 40 mg Q12H ANN MARIE Administration Metoprolol Tartrate 50 mg 10/07/19 11:00 10/09/19 09:38 Metoprolol PO 50 mg BID ANN MARIE Administration Nitroglycerin 0.4 mg 10/06/19 14:00 Nitrostat SL PRN PRN Chest Pain Ondansetron HCl 4 mg 10/06/19 13:13 Zofran IV Q8H PRN Nausea And Vomiting Oxycodone/Acetaminophen 1 tab 10/06/19 18:14 10/07/19 04:23 Percocet 5/325 PO 1 tab Q6H PRN Administration Pain, Moderate (4-6) Sodium Chloride 10 ml 10/06/19 22:00 10/09/19 09:39 Sodium Chloride Flush Syringe 10 Ml IV 10 ml BID ANN MARIE Administration Sodium Chloride 10 ml 10/06/19 13:13 10/07/19 06:05 Sodium Chloride Flush Syringe 10 Ml IV 10 ml PRN PRN Administration LINE FLUSH
[2019-10-09] MEDS: ENOXAPARIN 40 MG/0.4 ML INJ SUB-Q SCH (21:26)
[2019-10-09] MEDS: EZETIMIBE 10 MG TAB PO SCH (21:27)
[2019-10-09] MEDS: SACUBITRIL/VALSARTAN 49-51 MG TAB PO SCH (21:27)
[2019-10-10] MEDS: hydrALAZINE 20 MG/1 ML INJ IV PRN (02:53)
[2019-10-10 08:22] VITALS: BP 166/86
[2019-10-10] MEDS: INSULIN LISPRO 100 UNIT/ML SUB-Q SCH ×2 (08:31→11:27)
[2019-10-10] MEDS: hydrALAZINE 100 MG TAB PO SCH (08:32)
[2019-10-10] MEDS: BUDESONIDE 0.5 MG/2 ML NEBU IH SCH (08:33)
[2019-10-10] MEDS: IPRATROPIUM/ALBUTEROL SULFATE 3 ML AMPUL.NEB IH SCH (08:33)
[2019-10-10] MEDS: ARFORMOTEROL 15 MCG/2 ML NEBU IH SCH (08:33)
[2019-10-10] MEDS: CLOPIDOGREL 75 MG TAB PO SCH (09:36)
[2019-10-10] MEDS: ASPIRIN 81 MG TAB CHEW PO SCH (09:36)
[2019-10-10] MEDS: guaiFENesin ER 600 MG TAB PO SCH (09:36)
[2019-10-10] MEDS: FAMOTIDINE 20 MG TAB PO SCH (09:36)
[2019-10-10] MEDS: METOPROLOL TARTRATE 25 MG TAB PO SCH (09:36)
[2019-10-10] MEDS: CELECOXIB 200 MG CAP PO SCH (09:38)
[2019-10-10] MEDS: SACUBITRIL/VALSARTAN 49-51 MG TAB PO SCH (09:38)
[2019-10-10] MEDS: methylPREDNISolone Sod Succinate 40 MG/1 ML INJ IV SCH (09:49)
[2019-10-10] MEDS ORDERED: FUROSEMIDE 40 MG TAB PO SCH (10:00)
[2019-10-10] MEDS ORDERED: SPIRONOLACTONE 25 MG TAB PO SCH (10:00)
--- NOTE | 2019-10-10 12:13 | Discharge Summary ---
Providers - Providers Date of Admission: 10/06/19 13:13 Attending physician: CAROLINE PRATER 10/06/19 13:33 Consult to Physician [CONS] Routine Comment: Consulting Provider: MAGED LANDERS Physician Instructions: Reason For Exam: Respiratory failure 10/06/19 13:35 Consult to Physician [CONS] Routine Comment: Consulting Provider: FIDEL MILLER Physician Instructions: Reason For Exam: CHF Primary care physician: ETIQUETTE TEACHER Hospitalization Condition: Stable Hospital course: 59 YO Female with HTN, OA, CAD S/P Stent x2, Nicotine Dependence, [place], Morbid Obesity, COPD, Obesity Hypoventilation Syndrome, Chronic Respiratory Failure on Home Oxygen presented to ED for evaluation. Patient stated that she had experienced shortness of breath, orthopnea, paroxysmal nocturnal dyspnea, decreased exercise tolerance, increased productive cough with clear sputum, increased frequency of bronchodilator therapy without relief of symptoms, and increased use of supplemental oxygen without relief. Patient was seen by her rn production 1 week prior to presentation and had experienced worsening symptoms since that evaluation. Patient transported to [facility] via private vehicle for further care and evaluation. Patient seen and evaluated in the emergency department. Lab and imaging studies reviewed. Patient found to have acute on chronic respiratory failure with a pulse oximetry of 87% on room air as well as clinical findings consistent with COPD exacerbation, congestive heart failure exacerbation, and a blood pressure of 214/140 which is consistent with accelerated hypertension. Patient admitted to telemetry. Pulmonology team consulted in ED. Cardiology team consulted in ED. Patient initiated on CHF protocol and treated with supplemental oxygen for respiratory failure. Patient found to be negative for coronavirus after outpatient testing. Patient responded to the aforementioned therapy with modest clinical improvement on hospital day 1, followed by incremental improvement during the ensuing hospital stay. Patient status improved and patient is subsequently medically optimized on the day of discharge and is back to usual state of health. Patient antihypertensive therapy was adjusted and strict I's/O monitoring was conducted. Patient medically optimized and subsequently discharged home. Patient seen and evaluated prior to discharge but no significant new physical exam findings. Patient discharged home and instructed to follow-up with primary care physician within 3 to 5 days, pulmonology as instructed, and cardiology team as instructed. Patient instructed to conduct daily weights and notify cardiology/primary care physician if patient gains more than 3 pounds within a 24-hour timeframe using the same weight scale which has been calibrated. Patient knowledges understanding instructions. 35 minutes dedicated to patient discharge and coordination of care. Disposition: DC-01 TO HOME OR SELFCARE - Discharge Diagnoses (1) Morbid obesity with body mass index of 40.0-49.9 Status: Acute (2) DVT prophylaxis Status: Acute (3) Accelerated hypertension Status: Resolved (4) Obesity hypoventilation syndrome Status: Acute (5) Congestive heart failure Status: Acute Qualifiers: Heart failure type: systolic Heart failure chronicity: acute on chronic Qualified Code(s): I50.23 - Acute on chronic systolic (congestive) heart failure (6) Acute and chronic respiratory failure Status: Acute Qualifiers: Respiratory failure complication: hypoxia Qualified Code(s): J96.21 - Acute and chronic respiratory failure with hypoxia (7) COPD with exacerbation Status: Acute (8) Coronary artery disease Status: Chronic Qualifiers: Associated angina: without angina (9) Advance care planning Status: Acute Core Measure Documentation - Palliative Care Palliative Care/ Comfort Measures: Not Applicable - Core Measures Any of the following diagnoses?: heart failure - Heart Failure Discharge Requirements LETTY/ARB for LVSD if EF <40%: Yes Beta vamsi at discharge: Yes Exam - Constitutional Vitals: Temp Pulse Resp BP Pulse Ox 97.7 F 70 20 166/86 98 10/10/19 08:05 10/10/19 09:37 10/10/19 08:33 10/10/19 09:37 10/10/19 08:30 General appearance: Present: no acute distress, obese - EENT Eyes: Present: PERRL ENT: hearing intact, clear oral mucosa - Neck Neck: Present: supple, normal ROM - Respiratory Respiratory effort: normal Respiratory: bilateral: CTA - Cardiovascular Heart Sounds: Present: S1 & S2. Absent: rub, click - Extremities Extremities: pulses symmetrical, No edema Extremity abnormal: edema Peripheral Pulses: within normal limits - Abdominal General gastrointestinal: Present: soft, non-tender, non-distended, normal bowel sounds Female genitourinary: Present: normal - Integumentary Integumentary: Present: clear, warm, dry - Musculoskeletal Musculoskeletal: gait normal, strength equal bilaterally - Psychiatric Psychiatric: appropriate mood/affect, intact judgment & insight - Neurologic Neurologic: CNII-XII intact, moves all extremities Plan Activity: advance as tolerated Diet: low fat, low cholesterol, low salt Special Instructions: restrict fluid intake to (8 glasses of water daily), record daily weights, record daily BP diary Follow up with: PRIMARY CARE, [Primary Care Provider] - 3-5 Days Prescriptions: hydrALAZINE [Apresoline TAB] 100 mg PO Q8H #90 tablet Sacubitril/Valsartan [Entresto 97 mg-103 mg Tablet] 1 each PO DAILY #30 tablet Aspirin EC [Halfprin EC] 81 mg PO QDAY #30 tablet ISOSORBIDE MONOnitrate [Imdur ER] 30 mg PO DAILY #30 tab.er.24h Furosemide [Lasix TAB] 40 mg PO QDAY #30 tablet Metoprolol [Lopressor TAB] 50 mg PO BID #60 tablet Clopidogrel [Plavix] 75 mg PO QDAY #30 tablet Simvastatin 40 mg PO QHS #30 tablet Other Discharge Orders: Home Health Care (Amb) Location: None Selected Bedside Commode- Elevator (Amb) Location: None Selected Shower Chair (Amb) Location: None Selected
== END 2019-10-10 12:10 | disposition home or self-care (01) | DRG 291 ==
LOC: ED 10:13 → MERGE 13:13 → 4A 13:13
PROVIDERS: ADMIT Internal Medicine; ATTEND Internal Medicine
PROC: 5A09357 Assistance with Respiratory Ventilation, Less than 24 Consecutive Hours, Continuous Positive Airway Pressure (ICD-10-PCS; principal; 2019-10-06)
DX: I11.0 Hypertensive heart disease with heart failure (principal); J96.21 Acute and chronic respiratory failure with hypoxia; J44.1 Chronic obstructive pulmonary disease with (acute) exacerbation; E66.2 Morbid (severe) obesity with alveolar hypoventilation; Z68.42 Body mass index [BMI] 45.0-49.9, adult; I16.1 Hypertensive emergency; I50.23 Acute on chronic systolic (congestive) heart failure; I25.10 Atherosclerotic heart disease of native coronary artery without angina pectoris; I42.9 Cardiomyopathy, unspecified; I27.20 Pulmonary hypertension, unspecified; E78.2 Mixed hyperlipidemia; F17.200 Nicotine dependence, unspecified, uncomplicated; M10.9 Gout, unspecified; D64.9 Anemia, unspecified; Z90.49 Acquired absence of other specified parts of digestive tract; Z82.49 Family history of ischemic heart disease and other diseases of the circulatory system; Z95.5 Presence of coronary angioplasty implant and graft; Z83.3 Family history of diabetes mellitus; Z88.0 Allergy status to penicillin; Z79.899 Other long term (current) drug therapy; I25.2 Old myocardial infarction; Z79.82 Long term (current) use of aspirin
CPT/HCPCS: 36415; 71045; 80048; 80053; 82140; 82550; 82728; 82947; 82962; 83615; 83735; 83880; 84145; 84439; 84443; 84484; 85025; 85379; 85610; 85730; 86140; 87040; 87116; 93005; 94640; 94644; 94660; 94760; G0378; A9270-GY; J0360; J1650; J1815; J1940; J2060; J2405; J2920; J2930; J3475

== ENCOUNTER 2020-07-21 15:53 | Inpatient (IN) | payer BC ==
[2020-07-21] MEDS ORDERED: ASPIRIN 325 MG TAB PO ONE (16:01)
--- NOTE | 2020-07-21 16:31 | XRay Report ---
XR chest 1V ap INDICATION / CLINICAL INFORMATION: Chest Pain COMPARISON: 02/09/2020 FINDINGS: SUPPORT DEVICES: None. HEART / MEDIASTINUM: Prominent cardiac silhouette, similar prior. LUNGS / PLEURA: Pulmonary vascular congestion. No definite pleural effusion. No pneumothorax. ADDITIONAL FINDINGS: No significant additional findings. IMPRESSION: 1. Cardiomegaly with pulmonary vascular congestion. Signer Name: Rafi Masters MD Signed: 07/21/2020 4:27 PM Workstation Name: [id number]
[2020-07-21 16:43] LABS: Basophils # (Auto) 0.1 K/mm3 (0.0-0.1); Basophils % (Auto) 0.7 % (0.0-1.8); Eosinophils # (Auto) 0.2 K/mm3 (0.0-0.4); Eosinophils % (Auto) 2.4 % (0.0-4.3); Lymphocytes # (Auto) 1.3 K/mm3 (1.2-5.4); Lymphocytes % (Auto) 16.5 % (13.4-35.0); Mean Corpuscular HGB Conc 29 % (30-34); Monocytes # (Auto) 0.7 K/mm3 (0.0-0.8); Monocytes % (Auto) 9.3 % (0.0-7.3); Platelet Count 350 K/mm3 (140-440); Red Blood Count 5.24 M/mm3 (3.65-5.03)
[2020-07-21 16:44] LABS: Hematocrit 31.2 % (30.3-42.9); Mean Corpuscular Volume 60 fl (79-97); Red Cell Distribution Width 24.7 % (13.2-15.2)
[2020-07-21 16:56] LABS: INR 1.04 (0.87-1.13)
[2020-07-21] MEDS ORDERED: FUROSEMIDE 40 MG/4 ML INJ IV ONE (17:02)
[2020-07-21] MEDS ORDERED: NITROGLYCERIN 2% OINT 1 GM TP ONE (17:03)
--- NOTE | 2020-07-21 17:06 | Emergency Department Report ---
ED Chest Pain HPI - General Chief Complaint: Dyspnea/Respdistress Stated Complaint: SOB Time Seen by Provider: 07/21/20 16:53 Source: patient Mode of arrival: Ambulatory Limitations: No Limitations - History of Present Illness Initial Comments: Patient is a 60-year-old F Nepalese female with HTN, OA, CAD S/P Stent x2, Nicotine Dependence, OR, Morbid Obesity, COPD, Obesity Hypoventilation Syndrome, Chronic Respiratory Failure on Home Oxygen. Patient states that she did run out of her home oxygen yesterday but states that she has had worsening shortness of breath especially with exertion for the last week. She is taking her Lasix and has been urinating but feels as though she is retaining fluids. She also states for the last several days she has had some chest pain and pressure on the left side of the chest. She denies nausea vomiting fevers chills cough cold or congestion. She has had COVID-19 testing which was negative. Patient has been out of some of her blood pressure medications and blood thinners for several months due to the COVID-19 pandemic. Patient states she has mostly been in the house has been afraid to come to the hospital. - Related Data Home Medications Medication Instructions Recorded Confirmed Last Taken ALBUTEROL NEB's 0.083 inh PO Q6H 10/06/19 10/06/19 Unknown Albuterol INH(or & Nicu Only) 6.7 gm PO Q6H PRN 10/06/19 10/06/19 Unknown AtorvaSTATin 40 mg PO DAILY 10/06/19 10/06/19 Unknown Budesonide/Formoterol Fumarate 10.2 gm PO Q6H 10/06/19 10/07/19 Unknown [Budesonide-Formoterol 160-4.5] Celecoxib [celeBREX] 200 mg PO DAILY 10/06/19 10/06/19 Unknown Clopidogrel [Plavix] 75 mg PO QWEEK 10/06/19 10/06/19 Unknown Dulaglutide [Trulicity] 0.75 mg SQ DAILY 10/06/19 10/07/19 Unknown HumuLIN 70/30 Kwikpen 15 units SQ BID 10/06/19 10/06/19 Unknown Symbicort 160-4.5 Mcg Inhaler 160 1000units Q6H 10/06/19 10/07/19 Unknown cloNIDine [Catapres] 0.2 mg PO BID 10/06/19 10/06/19 Unknown Previous Rx's Medication Instructions Recorded Last Taken Type AtorvaSTATin [Lipitor] 40 mg PO QHS #30 tablet 09/12/19 Unknown Rx ISOSORBIDE MONOnitrate [Imdur ER] 60 mg PO QDAY #30 tablet 09/12/19 Unknown Rx cloNIDine [Catapres] 0.2 mg PO BID #60 tablet 09/12/19 Unknown Rx hydrALAZINE [Apresoline TAB] 100 mg PO Q8HR #90 tab 09/12/19 Unknown Rx Aspirin EC [Halfprin EC] 81 mg PO QDAY #30 tablet 10/09/19 Unknown Rx Furosemide [Lasix TAB] 40 mg PO QDAY #30 tablet 10/09/19 Unknown Rx Sacubitril/Valsartan [Entresto 97 1 each PO DAILY #30 tablet 10/09/19 Unknown Rx mg-103 mg Tablet] Simvastatin 40 mg PO QHS #30 tablet 10/09/19 Unknown Rx Budesonide [Pulmicort Flexhaler] 90 mcg IH BID #1 aer.pow.ba 02/09/20 Unknown Rx Ferrous Sulfate [Feosol 325 MG tab] 325 mg PO BID #60 tablet 02/09/20 Unknown Rx Furosemide [Lasix TAB] 40 mg PO 0600,1800 #60 tablet 02/09/20 Unknown Rx Metoprolol Xl [Metoprolol 50 mg PO QDAY #30 tablet 02/09/20 Unknown Rx SUCCINATE ER TAB] Prednisone [predniSONE 5 mg (6-Day 5 mg PO .TAPER #1 tab.ds.pk 02/09/20 Unknown Rx Pack, 21 Tabs)] Allergies Allergy/AdvReac Type Severity Reaction Status Date / Time Penicillins Allergy Severe GO INTO Verified 07/21/20 15:54 SHOCK Heart Score - HEART Score History: Moderately suspicious EKG: Non-specific Age: 45-65 Risk factors: > 3 risk factors or hx of atherosclerotic disease Troponin: < normal limit HEART Score: 5 ED Review of Systems ROS: Stated complaint: SOB Other details as noted in HPI Comment: All other systems reviewed and negative ED Past Medical Hx - Past Medical History Hx Hypertension: Yes Hx Heart Attack/AMI: No Hx Congestive Heart Failure: Yes Hx Diabetes: Yes Hx Deep Vein Thrombosis: Yes (left leg) Hx Pulmonary Embolism: No Hx Liver Disease: No Hx Sickle Cell Disease: No Hx Arthritis: Yes Hx Asthma: No Hx COPD: Yes Hx Tuberculosis: No Hx HIV: No Additional medical history: CAD - Surgical History Hx Coronary Stent: Yes (2004, 2007, 09/2015) Hx Pacemaker: No Hx Internal Defibrillator: No Hx Cholecystectomy: Yes Hx Appendectomy: Yes Additional Surgical History: HYSTERECTOMY. TONSILLECTOMY - Social History Smoking Status: Never Smoker Substance Use Type: None - Medications Home Medications: Home Medications Medication Instructions Recorded Confirmed Last Taken Type AtorvaSTATin [Lipitor] 40 mg PO QHS #30 tablet 09/12/19 Unknown Rx ISOSORBIDE MONOnitrate [Imdur ER] 60 mg PO QDAY #30 tablet 09/12/19 Unknown Rx cloNIDine [Catapres] 0.2 mg PO BID #60 tablet 09/12/19 Unknown Rx hydrALAZINE [Apresoline TAB] 100 mg PO Q8HR #90 tab 09/12/19 Unknown Rx ALBUTEROL NEB's 0.083 inh PO Q6H 10/06/19 10/06/19 Unknown History Albuterol INH(or & Nicu Only) 6.7 gm PO Q6H PRN 10/06/19 10/06/19 Unknown History AtorvaSTATin 40 mg PO DAILY 10/06/19 10/06/19 Unknown History Budesonide/Formoterol Fumarate 10.2 gm PO Q6H 10/06/19 10/07/19 Unknown History [Budesonide-Formoterol 160-4.5] Celecoxib [celeBREX] 200 mg PO DAILY 10/06/19 10/06/19 Unknown History Clopidogrel [Plavix] 75 mg PO QWEEK 10/06/19 10/06/19 Unknown History Dulaglutide [Trulicity] 0.75 mg SQ DAILY 10/06/19 10/07/19 Unknown History HumuLIN 70/30 Kwikpen 15 units SQ BID 10/06/19 10/06/19 Unknown History Symbicort 160-4.5 Mcg Inhaler 160 1000units Q6H 10/06/19 10/07/19 Unknown History cloNIDine [Catapres] 0.2 mg PO BID 10/06/19 10/06/19 Unknown History Aspirin EC [Halfprin EC] 81 mg PO QDAY #30 tablet 10/09/19 Unknown Rx Furosemide [Lasix TAB] 40 mg PO QDAY #30 tablet 10/09/19 Unknown Rx Sacubitril/Valsartan [Entresto 97 1 each PO DAILY #30 tablet 10/09/19 Unknown Rx mg-103 mg Tablet] Simvastatin 40 mg PO QHS #30 tablet 10/09/19 Unknown Rx Budesonide [Pulmicort Flexhaler] 90 mcg IH BID #1 aer.pow.ba 02/09/20 Unknown Rx Ferrous Sulfate [Feosol 325 MG tab] 325 mg PO BID #60 tablet 02/09/20 Unknown Rx Furosemide [Lasix TAB] 40 mg PO 0600,1800 #60 tablet 02/09/20 Unknown Rx Metoprolol Xl [Metoprolol 50 mg PO QDAY #30 tablet 02/09/20 Unknown Rx SUCCINATE ER TAB] Prednisone [predniSONE 5 mg (6-Day 5 mg PO .TAPER #1 tab.ds.pk 02/09/20 Unknown Rx Pack, 21 Tabs)] ED Physical Exam - General Limitations: No Limitations General appearance: alert, in no apparent distress - Head Head exam: Present: atraumatic, normocephalic - Eye Eye exam: Present: normal appearance, PERRL, EOMI - ENT ENT exam: Present: mucous membranes moist - Neck Neck exam: Present: normal inspection - Respiratory Respiratory exam: Present: normal lung sounds bilaterally, rales (fine rales bilateral bases). Absent: respiratory distress, wheezes, rhonchi, stridor - Cardiovascular Cardiovascular Exam: Present: regular rate, normal rhythm, normal heart sounds. Absent: systolic murmur, diastolic murmur, rubs, gallop - GI/Abdominal GI/Abdominal exam: Present: soft, normal bowel sounds. Absent: distended, tenderness, guarding, rebound - Extremities Exam Extremities exam: Present: normal inspection, other (+2 edema bilateal legs up to mid calf) - Back Exam Back exam: Present: normal inspection - Neurological Exam Neurological exam: Present: alert, oriented X3 - Psychiatric Psychiatric exam: Present: normal affect, normal mood - Skin Skin exam: Present: warm, dry, intact, normal color. Absent: rash ED Course Vital Signs 07/21/20 07/21/20 07/21/20 17:38 17:41 17:43 Pulse Rate 88 89 Respiratory 24 21 Rate Blood Pressure 237/139 Blood Pressure 237/139 [Right] O2 Sat by Pulse 99 98 Oximetry MORA score - Mora Score Age > 65: (0) No Aspirin use within the Past 7 Days: (1) Yes 3 or more CAD Risk Factors: (1) Yes 2 or more Angina events in past 24 hrs: (1) Yes Known CAD with more than 50% Stenosis: (1) Yes Elevated Cardiac Markers: (0) No ST Deviation Greater than 0.5mm: (0) No MORA Score: 4 ED Medical Decision Making - Lab Data Result diagrams: 07/21/20 16:09 07/21/20 16:09 Lab Results 07/21/20 07/21/20 07/21/20 Range/Units 16:09 16:09 16:09 WBC 7.9 (4.5-11.0) K/mm3 RBC 5.24 H (3.65-5.03) M/mm3 Hgb 9.0 L (10.1-14.3) gm/dl Hct 31.2 (30.3-42.9) % MCV 60 L (79-97) fl MCH 17 L (28-32) pg MCHC 29 L (30-34) % RDW 24.7 H (13.2-15.2) % Plt Count 350 (140-440) K/mm3 Lymph % (Auto) 16.5 (13.4-35.0) % [place] % (Auto) 9.3 H (0.0-7.3) % Eos % (Auto) 2.4 (0.0-4.3) % Baso % (Auto) 0.7 (0.0-1.8) % Lymph # (Auto) 1.3 (1.2-5.4) K/mm3 [place] # (Auto) 0.7 (0.0-0.8) K/mm3 Eos # (Auto) 0.2 (0.0-0.4) K/mm3 Baso # (Auto) 0.1 (0.0-0.1) K/mm3 Seg Neutrophils % 71.1 H (40.0-70.0) % Seg Neutrophils # 5.6 (1.8-7.7) K/mm3 PT 13.5 (12.2-14.9) Sec. INR 1.04 (0.87-1.13) Sodium 139 (137-145) mmol/L Potassium 4.2 (3.6-5.0) mmol/L Chloride 104.9 (98-107) mmol/L Carbon Dioxide 22 (22-30) mmol/L Anion Gap 16 mmol/L BUN 14 (7-17) mg/dL Creatinine 0.9 (0.6-1.2) mg/dL Estimated GFR > 60 ml/min BUN/Creatinine Ratio 16 % Glucose 100 (65-100) mg/dL Calcium 8.7 (8.4-10.2) mg/dL Troponin T < 0.010 (0.00-0.029) ng/mL NT-Pro-B Natriuret Pep 2447 H (0-900) pg/mL - EKG Data -: EKG Interpreted by Ks - EKG Data 07/21/20 17:07 EKG shows normal sinus rhythm with a rate of 99. [place] is normal intervals show a prolonged QT. No ST segment elevations or depressions. Time of interpretation 1608 - Radiology Data Reporting MD: Rafi Masters Dictation Time: July 21, 2020 15:27 Pattern Marking Supervisor: Not available Mechanical Adjuster Date: XR chest 1V ap INDICATION / CLINICAL INFORMATION: Chest Pain COMPARISON: 02/09/2020 FINDINGS: SUPPORT DEVICES: None. HEART / MEDIASTINUM: Prominent cardiac silhouette, similar prior. LUNGS / PLEURA: Pulmonary vascular congestion. No definite pleural effusion. No pneumothorax. ADDITIONAL FINDINGS: No significant additional findings. IMPRESSION: 1. Cardiomegaly with pulmonary vascular congestion. Signer Name: Rafi Masters MD Signed: 07/21/2020 3:27 PM Workstation Name: [facility] - Medical Decision Making Because of the patient's elevated heart score and chest pain and significantly elevated blood pressure patient will be admitted to the hospitalist service with cardiology consult. Patient given IV Lasix, Nitropaste for preload reduction and a dose of labetalol to reduce her blood pressure. Patient's first troponin is negative. EKG shows no acute elevation OR. Patient stable for admission to the telemetry unit Critical Care Time: Yes (30) Critical care attestation.: If time is entered above; I have spent that time in minutes in the direct care of this critically ill patient, excluding procedure time. ED Disposition Clinical Impression: Hypertensive urgency, malignant, CHF exacerbation, SOBOE (shortness of breath on exertion), Acute chest pain Disposition: OP ADMIT IP TO THIS HOSP Is pt being admited?: Yes Does the pt Need Aspirin: No Condition: Stable Instructions: Chest Pain (ED) Time of Disposition: 17:56
[2020-07-21 17:12] LABS: BUN/Creatinine Ratio 16; Blood Urea Nitrogen 14 mg/dL (7-17); Calcium 8.7 mg/dL (8.4-10.2); Hemolysis Index 3
[2020-07-21] MEDS ORDERED: LORazepam 2 MG/ML VIAL IV ONE (17:52)
[2020-07-21] MEDS: FERROUS SULFATE 325 MG TAB PO SCH (22:30)
[2020-07-21] MEDS: cloNIDine 0.2 MG TAB PO SCH (22:30)
--- NOTE | 2020-07-21 22:31 | History and Physical Report ---
History of Present Illness Date of examination: 07/21/20 Date of admission: 07/21/20 17:56 Chief complaint: Chest pain for 1 week History of present illness: 60-year-old -Maldivian female with history of multiple medical problems including hypertension, congestive heart failure, coronary artery disease with 4 stents: Insulin-dependent diabetes: Deep vein thrombosis: COPD, comes in for chest pain management greater on the left side for the last 1 week. Inte rmittent in nature. Patient is taking her Lasix and other medications. Patient ran out of home oxygen yesterday. Patient states that she has chronic respiratory failure and is on home oxygen. Chest pain is ongoing for the last 1 week and intermittent nature. Mostly left precordial. Some shortness of breath present. Is it is at baseline to have some shortness of breath and patient is on Lasix and Entresto. Patient has class IV NYHA symptoms. No diaphoresis. No radiation of pain. No exacerbating or relieving factors. Patient has history of severe coronary artery disease and had 4 stents. 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 - Past Medical History --Hypertension: Yes --Congestive Heart Failure: Yes --Diabetes: Yes --Deep Vein Thrombosis: Yes (left leg)--COPD: Yes Additional medical history: CAD - Surgical History --Coronary Stent: Yes (2004, 2007, 09/2015) --Cholecystectomy: Yes --Appendectomy: Yes Additional Surgical History: HYSTERECTOMY. 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 no syncope no seizures Skin no rash no itching Psychiatric no depression no homicidal or suicidal tendencies Hematologic no lymphedema or bruising Endocrine no polydipsia no polyuria no cold intolerance no heat intolerance Medications and Allergies Allergies Allergy/AdvReac Type Severity Reaction Status Date / Time Penicillins Allergy Severe GO INTO Verified 07/21/20 15:54 SHOCK Home Medications Medication Instructions Recorded Confirmed Last Taken Type AtorvaSTATin [Lipitor] 40 mg PO QHS #30 tablet 09/12/19 Unknown Rx ISOSORBIDE MONOnitrate [Imdur ER] 60 mg PO QDAY #30 tablet 09/12/19 Unknown Rx cloNIDine [Catapres] 0.2 mg PO BID #60 tablet 09/12/19 Unknown Rx hydrALAZINE [Apresoline TAB] 100 mg PO Q8HR #90 tab 09/12/19 Unknown Rx ALBUTEROL NEB's 0.083 inh PO Q6H 10/06/19 10/06/19 Unknown History Albuterol INH(or & Nicu Only) 6.7 gm PO Q6H PRN 10/06/19 10/06/19 Unknown History AtorvaSTATin 40 mg PO DAILY 10/06/19 10/06/19 Unknown History Budesonide/Formoterol Fumarate 10.2 gm PO Q6H 10/06/19 10/07/19 Unknown History [Budesonide-Formoterol 160-4.5] Celecoxib [celeBREX] 200 mg PO DAILY 10/06/19 10/06/19 Unknown History Clopidogrel [Plavix] 75 mg PO QWEEK 10/06/19 10/06/19 Unknown History Dulaglutide [Trulicity] 0.75 mg SQ DAILY 10/06/19 10/07/19 Unknown History HumuLIN 70/30 Kwikpen 15 units SQ BID 10/06/19 10/06/19 Unknown History Symbicort 160-4.5 Mcg Inhaler 160 1000units Q6H 10/06/19 10/07/19 Unknown History cloNIDine [Catapres] 0.2 mg PO BID 10/06/19 10/06/19 Unknown History Aspirin EC [Halfprin EC] 81 mg PO QDAY #30 tablet 10/09/19 Unknown Rx Furosemide [Lasix TAB] 40 mg PO QDAY #30 tablet 10/09/19 Unknown Rx Sacubitril/Valsartan [Entresto 97 1 each PO DAILY #30 tablet 10/09/19 Unknown Rx mg-103 mg Tablet] Simvastatin 40 mg PO QHS #30 tablet 10/09/19 Unknown Rx Budesonide [Pulmicort Flexhaler] 90 mcg IH BID #1 aer.pow.ba 02/09/20 Unknown Rx Ferrous Sulfate [Feosol 325 MG tab] 325 mg PO BID #60 tablet 02/09/20 Unknown Rx Furosemide [Lasix TAB] 40 mg PO 0600,1800 #60 tablet 02/09/20 Unknown Rx Metoprolol Xl [Metoprolol 50 mg PO QDAY #30 tablet 02/09/20 Unknown Rx SUCCINATE ER TAB] Prednisone [predniSONE 5 mg (6-Day 5 mg PO .TAPER #1 tab.ds.pk 02/09/20 Unknown Rx Pack, 21 Tabs)] Exam - Constitutional Vitals: Temp Pulse Resp BP Pulse Ox 97.8 F 90 21 237/139 98 07/21/20 15:59 07/21/20 18:01 07/21/20 17:41 07/21/20 17:43 07/21/20 17:41 General appearance: Present: no acute distress, well-nourished - EENT Eyes: Present: PERRL ENT: hearing intact, clear oral mucosa - Neck Neck: Present: supple, normal ROM - Respiratory Respiratory effort: normal Respiratory: bilateral: CTA - Cardiovascular Heart rate: 78 Rhythm: regular Heart Sounds: Present: S1 & S2. Absent: rub, click - Extremities Extremities: no ischemia, pulses intact, pulses symmetrical, No edema Peripheral Pulses: within normal limits - Abdominal General gastrointestinal: Present: soft, non-tender, non-distended, normal bowel sounds Female genitourinary: Present: normal - Integumentary Integumentary: Present: clear, warm, dry - Musculoskeletal Musculoskeletal: gait normal, strength equal bilaterally - Psychiatric Psychiatric: appropriate mood/affect, intact judgment & insight - Neurologic Neurologic: CNII-XII intact, moves all extremities - Allied Health Allied health notes reviewed: nursing, case management HEART Score - HEART Score History: Highly suspicious EKG: Non-specific Age: 45-65 Risk factors: > 3 risk factors or hx of atherosclerotic disease Troponin: Troponin T < 0.010 ng/mL (0.00-0.029) 07/21/20 19:16 Troponin: < normal limit HEART Score: 6 - Critical Actions Critical Actions: 4-6 pts:12-16.6% risk of adverse cardiac event. Should be admitted Results - Labs CBC & Chem 7: 07/21/20 16:09 07/21/20 16:09 Labs: Laboratory Last Values WBC 7.9 K/mm3 (4.5-11.0) 07/21/20 16:09 RBC 5.24 M/mm3 (3.65-5.03) H 07/21/20 16:09 Hgb 9.0 gm/dl (10.1-14.3) L 07/21/20 16:09 Hct 31.2 % (30.3-42.9) 07/21/20 16:09 MCV 60 fl (79-97) L 07/21/20 16:09 MCH 17 pg (28-32) L 07/21/20 16:09 MCHC 29 % (30-34) L 07/21/20 16:09 RDW 24.7 % (13.2-15.2) H 07/21/20 16:09 Plt Count 350 K/mm3 (140-440) 07/21/20 16:09 Lymph % (Auto) 16.5 % (13.4-35.0) 07/21/20 16:09 [place] % (Auto) 9.3 % (0.0-7.3) H 07/21/20 16:09 Eos % (Auto) 2.4 % (0.0-4.3) 07/21/20 16:09 Baso % (Auto) 0.7 % (0.0-1.8) 07/21/20 16:09 Lymph # (Auto) 1.3 K/mm3 (1.2-5.4) 07/21/20 16:09 [place] # (Auto) 0.7 K/mm3 (0.0-0.8) 07/21/20 16:09 Eos # (Auto) 0.2 K/mm3 (0.0-0.4) 07/21/20 16:09 Baso # (Auto) 0.1 K/mm3 (0.0-0.1) 07/21/20 16:09 Seg Neutrophils % 71.1 % (40.0-70.0) H 07/21/20 16:09 Seg Neutrophils # 5.6 K/mm3 (1.8-7.7) 07/21/20 16:09 PT 13.5 Sec. (12.2-14.9) 07/21/20 16:09 INR 1.04 (0.87-1.13) 07/21/20 16:09 Sodium 139 mmol/L (137-145) 07/21/20 16:09 Potassium 4.2 mmol/L (3.6-5.0) 07/21/20 16:09 Chloride 104.9 mmol/L (98-107) 07/21/20 16:09 Carbon Dioxide 22 mmol/L (22-30) 07/21/20 16:09 Anion Gap 16 mmol/L 07/21/20 16:09 BUN 14 mg/dL (7-17) 07/21/20 16:09 Creatinine 0.9 mg/dL (0.6-1.2) 07/21/20 16:09 Estimated GFR > 60 ml/min 07/21/20 16:09 BUN/Creatinine Ratio 16 % 07/21/20 16:09 Glucose 100 mg/dL (65-100) 07/21/20 16:09 Calcium 8.7 mg/dL (8.4-10.2) 07/21/20 16:09 Troponin T < 0.010 ng/mL (0.00-0.029) 07/21/20 19:16 NT-Pro-B Natriuret Pep 2447 pg/mL (0-900) H 07/21/20 16:09 Short CBC 07/21/20 07/22/20 Range/Units 16:09 04:56 WBC 7.9 7.7 (4.5-11.0) K/mm3 Hgb 9.0 L 8.8 L (10.1-14.3) gm/dl Hct 31.2 30.8 (30.3-42.9) % Plt Count 350 331 (140-440) K/mm3 BMP 07/21/20 07/22/20 16:09 04:56 Sodium 139 140 Potassium 4.2 4.1 Chloride 104.9 104.5 Carbon Dioxide 22 25 BUN 14 15 Creatinine 0.9 0.7 Glucose 100 84 Calcium 8.7 8.6 Cardiac Enzymes 07/21/20 07/21/20 07/22/20 Range/Units 16:09 19:16 04:56 CK-MB (CK-2) 2.5 (0.0-4.0) ng/mL Troponin T < 0.010 < 0.010 < 0.010 (0.00-0.029) ng/mL Liver Function 07/22/20 Range/Units 04:56 Total Bilirubin 0.30 (0.1-1.2) mg/dL AST 7 (5-40) units/L ALT 5 L (7-56) units/L Alkaline Phosphatase 161 H (35-129) units/L Albumin 3.6 L (3.9-5) g/dL - Imaging and Cardiology EKG: report reviewed (Sinus rhythm no acute ST-T wave changes) Imaging and Cardiology: Sinus rhythm no acute ST-T wave changes chest x-ray Cardiomegaly with pulmonary vascular congestion Assessment and Plan Advance Directives: Yes (Full code) VTE prophylaxis?: Chemical Plan of care discussed with patient/family: Yes - Patient Problems (1) ACS (acute coronary syndrome) Current Visit: No Status: Acute Plan to address problem: Patient with extensive coronary artery disease and 4 stents Chest pain for 1 week We will get serial troponins and Lexiscan in a.m. Cardiology consult requested (2) Respiratory failure with hypoxia Current Visit: Yes Status: Chronic Qualifiers: Chronicity: chronic Qualified Code(s): J96.11 - Chronic respiratory failure with hypoxia Plan to address problem: Continue 2 L nasal cannula oxygen (3) CHF (congestive heart failure) Current Visit: Yes Status: Chronic Qualifiers: Heart failure type: combined systolic and diastolic Plan to address problem: BNP is high in the mid 2 thousands Continue Lasix and Entresto Daily weights Daily intake and output Echocardiogram for ejection fraction not done recently (4) Hypertension Current Visit: Yes Status: Chronic Qualifiers: Hypertension type: essential hypertension Qualified Code(s): I10 - Essential (primary) hypertension Plan to address problem: Continue antihypertensives and adjust medications (5) IDDM (insulin dependent diabetes mellitus) Current Visit: Yes Status: Chronic Plan to address problem: Continue home insulin and coverage with moderate scale insulin per protocol Check hemoglobin A1c (6) Morbid obesity Current Visit: No Status: Chronic Plan to address problem: Needs bariatric surgery as outpatient Refer to Dr. Patel (7) O2 dependent Current Visit: No Status: Chronic Plan to address problem: Continue 2 L nasal cannula oxygen (8) CAD (coronary artery disease) Current Visit: No Status: Chronic Qualifiers: Coronary Disease-Associated Artery/Lesion type: [place] artery [place] vs. transplanted heart: [place] heart Associated angina: without angina Qualified Code(s): I25.10 - Atherosclerotic heart disease of [place] coronary artery without angina pectoris Plan to address problem: Patient has 4 stents Continue aspirin and isosorbide mono nitrate (9) Hyperlipidemia Current Visit: No Status: Chronic Qualifiers: Hyperlipidemia type: mixed hyperlipidemia Qualified Code(s): E78.2 - Mixed hyperlipidemia Plan to address problem: Continue statins (10) DVT prophylaxis Current Visit: No Status: Acute Plan to address problem: On heparin and GI prophylaxis
[2020-07-21] MEDS ORDERED: [UNRECOGNIZED DRUG - REMARK] PO PRN (22:32)
[2020-07-21] MEDS ORDERED: ACETAMINOPHEN 325 MG TAB PO PRN (22:40)
[2020-07-21] MEDS ORDERED: HYDROmorphone 1 MG/1 ML INJ IV PRN (22:40)
[2020-07-21] MEDS ORDERED: NON-FORMULARY EACH (Budesonide [Pulmicort Flexhaler] 90 MCG Aer.Pow.Ba) IH SCH (22:45)
[2020-07-21] MEDS ORDERED: INSULIN ISOPHANE SQ SCH (22:45)
[2020-07-21] MEDS ORDERED: NON-FORMULARY EACH (Budesonide/Formoterol Fumarate [Budesonide-Formoterol 160-4.5] 10.2 GM PO SCH (22:45)
[2020-07-21] MEDS ORDERED: INSULIN REGULAR SQ SCH (22:45)
[2020-07-21] MEDS ORDERED: CLOPIDOGREL 75 MG TAB PO SCH (23:00)
[2020-07-21] MEDS ORDERED: ALBUTEROL 2.5 MG/3 ML NEBU IH PRN (23:05)
[2020-07-21] MEDS ORDERED: TEMAZEPAM 15 MG CAP PO ONE (23:53)
[2020-07-22] MEDS: hydrALAZINE 100 MG TAB PO SCH ×3 (00:34→13:06)
[2020-07-22] MEDS: oxyCODONE /ACETAMINOPHEN 5-325MG TAB PO PRN ×3 (00:35→17:44)
[2020-07-22 05:41] LABS: Mean Corpuscular HGB Conc 29 % (30-34); Platelet Count 331 K/mm3 (140-440); Red Blood Count 5.12 M/mm3 (3.65-5.03)
[2020-07-22 05:57] LABS: Creatine Kinase MB 2.5 ng/mL (0.0-4.0)
[2020-07-22 05:58] LABS: Hematocrit 30.8 % (30.3-42.9); Hemoglobin 8.8 gm/dl (10.1-14.3); Lymphocytes % (Auto) 18.1 % (13.4-35.0); Mean Corpuscular Volume 60 fl (79-97); Monocytes % (Auto) 8.9 % (0.0-7.3); Red Cell Distribution Width 24.7 % (13.2-15.2)
[2020-07-22 05:59] LABS: Alanine Aminotransferase 5 units/L (7-56); Albumin 3.6 g/dL (3.9-5); BUN/Creatinine Ratio 21; Basophils # (Auto) 0.1 K/mm3 (0.0-0.1); Basophils % (Auto) 0.7 % (0.0-1.8); Blood Urea Nitrogen 15 mg/dL (7-17); Calcium 8.6 mg/dL (8.4-10.2); Eosinophils # (Auto) 0.2 K/mm3 (0.0-0.4); Eosinophils % (Auto) 2.9 % (0.0-4.3); Hemolysis Index 2; Lymphocytes # (Auto) 1.4 K/mm3 (1.2-5.4); Monocytes # (Auto) 0.7 K/mm3 (0.0-0.8)
[2020-07-22] MEDS ORDERED: FUROSEMIDE 40 MG TAB PO SCH (06:00)
[2020-07-22] MEDS ORDERED: REGADENOSON 0.4 MG/5 ML INJ IV ONE (07:06)
[2020-07-22] MEDS: INSULIN LISPRO 100 UNIT/ML SUB-Q SCH ×4 (07:30→22:02)
--- NOTE | 2020-07-22 07:55 | Progress Note ---
Assessment and Plan Assessment and plan: 60-year-old -[place] female with history of multiple medical problems including hypertension, congestive heart failure, coronary artery disease with 4 stents: Insulin-dependent diabetes: Deep vein thrombosis: COPD, comes in for chest pain management greater on the left side for the last 1 week. Intermittent in nature. Patient is taking her Lasix and other medications. Patient ran out of home oxygen yesterday. Patient states that she has chronic respiratory failure and is on home oxygen. Chest pain is ongoing for the last 1 week and intermittent nature. Mostly left precordial. Some shortness of breath present. Is it is at baseline to have some shortness of breath and patient is on Lasix and Entresto. Patient has class IV NYHA symptoms. No diaphoresis. No radiation of pain. No exacerbating or relieving factors. Patient has history of severe coronary artery disease and had 4 stents. 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 Hernandez. 07/22: Discussed extensively with the patient today I believe patient has underlying congestive heart failure. Awaiting further input from cardiology. We will continue diuresis with changed Lasix to IV twice daily and monitor ins and outs. Monitor electrolytes and adjust as needed. Patient is on 4 L of oxygen at home. Noted Microcytic anemia- start on iron (1) ACS (acute coronary syndrome) Current Visit: No Status: Acute Plan to address problem: Patient with extensive coronary artery disease and 4 stents Chest pain for 1 week We will get serial troponins and Lexiscan in a.m. Cardiology consult requested (2) Respiratory failure with hypoxia Current Visit: Yes Status: Chronic Qualifiers: Chronicity: chronic Qualified Code(s): J96.11 - Chronic respiratory failure with hypoxia Plan to address problem: Continue nasal cannula oxygen (3) CHF (congestive heart failure) Current Visit: Yes Status: Chronic Qualifiers: Heart failure type: combined systolic and diastolic Plan to address problem: BNP is high in the mid 2 thousands Continue Lasix and Entresto Daily weights Daily intake and output Echocardiogram for ejection fraction not done recently (4) Hypertension Current Visit: Yes Status: Chronic Qualifiers: Hypertension type: essential hypertension Qualified Code(s): I10 - Essential (primary) hypertension Plan to address problem: Continue antihypertensives and adjust medications (5) IDDM (insulin dependent diabetes mellitus) Current Visit: Yes Status: Chronic Plan to address problem: Continue home insulin and coverage with moderate scale insulin per protocol Check hemoglobin A1c (6) Morbid obesity Current Visit: No Status: Chronic Plan to address problem: Needs bariatric surgery as outpatient Refer to Dr. Patel (7) O2 dependent Current Visit: No Status: Chronic Plan to address problem: Continue 2 L nasal cannula oxygen (8) CAD (coronary artery disease) Current Visit: No Status: Chronic Qualifiers: Coronary Disease-Associated Artery/Lesion type: [place] artery [place] vs. transplanted heart: [place] heart Associated angina: without angina Qualified Code(s): I25.10 - Atherosclerotic heart disease of [place] coronary artery without angina pectoris Plan to address problem: Patient has 4 stents Continue aspirin and isosorbide mono nitrate (9) Hyperlipidemia Current Visit: No Status: Chronic Qualifiers: Hyperlipidemia type: mixed hyperlipidemia Qualified Code(s): E78.2 - Mixed hyperlipidemia Plan to address problem: Continue statins (10) DVT prophylaxis Current Visit: No Status: Acute Plan to address problem: On heparin and GI prophylaxis History Interval history: Patient seen and examined still with shortness of breath although reports some improvement. Still with what she describes as [id number] pain across the mid sternum area. Hospitalist Physical - Physical exam Narrative exam: VITAL SIGNS: Reviewed. GENERAL: The patient appears normally developed, morbidly vital signs as documented. HEAD: No signs of head trauma. EYES: Pupils are equal. Extraocular motions intact. EARS: Hearing grossly intact. MOUTH: Oropharynx is normal. NECK: No adenopathy, no JVD. CHEST: Chest with diminished breath sounds bilaterally. No wheezes, rales, or rhonchi. CARDIAC: Regular rate and rhythm. S1 and S2, without murmurs, gallops, or rubs. VASCULAR: 2+ pitting edema. Peripheral pulses normal and equal in all extremities. ABDOMEN: Soft, non tender and non distended. No rebound or guarding, and no masses palpated. Bowel Sounds normal. MUSCULOSKELETAL: Good range of motion of all major joints. Extremities without clubbing, cyanosis. 2+ pitting edema bilateral. NEUROLOGIC EXAM: Alert and oriented x 3 No focal sensory or strength deficits. Speech normal. Follows commands. PSYCHIATRIC: Mood normal. SKIN: detail exam as documented in skin assessment - Constitutional Vitals: Temp Pulse Resp BP Pulse Ox 98.5 F 88 20 172/91 95 07/22/20 07:38 07/22/20 07:38 07/22/20 07:38 07/22/20 07:38 07/22/20 07:38 General appearance: Present: no acute distress, well-nourished HEART Score - HEART Score EKG: Non-specific Age: 45-65 Risk factors: > 3 risk factors or hx of atherosclerotic disease Troponin: Troponin T < 0.010 ng/mL (0.00-0.029) 07/22/20 04:56 Troponin: < normal limit - Critical Actions Critical Actions: 4-6 pts:12-16.6% risk of adverse cardiac event. Should be admitted Results - Labs CBC & Chem 7: 07/22/20 04:56 07/22/20 04:56 Labs: Laboratory Last Values WBC 7.7 K/mm3 (4.5-11.0) 07/22/20 04:56 RBC 5.12 M/mm3 (3.65-5.03) H 07/22/20 04:56 Hgb 8.8 gm/dl (10.1-14.3) L 07/22/20 04:56 Hct 30.8 % (30.3-42.9) 07/22/20 04:56 MCV 60 fl (79-97) L 07/22/20 04:56 MCH 17 pg (28-32) L 07/22/20 04:56 MCHC 29 % (30-34) L 07/22/20 04:56 RDW 24.7 % (13.2-15.2) H 07/22/20 04:56 Plt Count 331 K/mm3 (140-440) 07/22/20 04:56 Lymph % (Auto) 18.1 % (13.4-35.0) 07/22/20 04:56 [place] % (Auto) 8.9 % (0.0-7.3) H 07/22/20 04:56 Eos % (Auto) 2.9 % (0.0-4.3) 07/22/20 04:56 Baso % (Auto) 0.7 % (0.0-1.8) 07/22/20 04:56 Lymph # (Auto) 1.4 K/mm3 (1.2-5.4) 07/22/20 04:56 [place] # (Auto) 0.7 K/mm3 (0.0-0.8) 07/22/20 04:56 Eos # (Auto) 0.2 K/mm3 (0.0-0.4) 07/22/20 04:56 Baso # (Auto) 0.1 K/mm3 (0.0-0.1) 07/22/20 04:56 Seg Neutrophils % 69.4 % (40.0-70.0) 07/22/20 04:56 Seg Neutrophils # 5.4 K/mm3 (1.8-7.7) 07/22/20 04:56 PT 13.5 Sec. (12.2-14.9) 07/21/20 16:09 INR 1.04 (0.87-1.13) 07/21/20 16:09 Sodium 140 mmol/L (137-145) 07/22/20 04:56 Potassium 4.1 mmol/L (3.6-5.0) 07/22/20 04:56 Chloride 104.5 mmol/L (98-107) 07/22/20 04:56 Carbon Dioxide 25 mmol/L (22-30) 07/22/20 04:56 Anion Gap 15 mmol/L 07/22/20 04:56 BUN 15 mg/dL (7-17) 07/22/20 04:56 Creatinine 0.7 mg/dL (0.6-1.2) 07/22/20 04:56 Estimated GFR > 60 ml/min 07/22/20 04:56 BUN/Creatinine Ratio 21 % 07/22/20 04:56 Glucose 84 mg/dL (65-100) 07/22/20 04:56 Hemoglobin A1c 5.8 % (4-6) 07/22/20 04:56 Calcium 8.6 mg/dL (8.4-10.2) 07/22/20 04:56 Total Bilirubin 0.30 mg/dL (0.1-1.2) 07/22/20 04:56 AST 7 units/L (5-40) 07/22/20 04:56 ALT 5 units/L (7-56) L 07/22/20 04:56 Alkaline Phosphatase 161 units/L (35-129) H 07/22/20 04:56 Total Creatine Kinase 32 units/L (30-135) 07/22/20 04:56 CK-MB (CK-2) 2.5 ng/mL (0.0-4.0) 07/22/20 04:56 CK-MB (CK-2) Rel Index 7.8 (0-4) H 07/22/20 04:56 Troponin T < 0.010 ng/mL (0.00-0.029) 07/22/20 04:56 NT-Pro-B Natriuret Pep 2447 pg/mL (0-900) H 07/21/20 16:09 Total Protein 7.3 g/dL (6.3-8.2) 07/22/20 04:56 Albumin 3.6 g/dL (3.9-5) L 07/22/20 04:56 Albumin/Globulin Ratio 1.0 % 07/22/20 04:56 Fabian/IV: Voiding Method External Female Catheter Active Medications - Current Medications Current Medications: Generic Name Dose Route Start Last Admin Trade Name Freq PRN Reason Stop Dose Admin Acetaminophen 650 mg 07/21/20 22:40 Acetaminophen 325 Mg Tab PO Q4H PRN Pain MILD(1-3)/Fever >100.5/ALAS Albuterol 2.5 mg 07/21/20 23:05 Albuterol 2.5 Mg/3 Ml Nebu IH Q4HRT PRN Wheezing Arformoterol Tartrate 15 mcg 07/22/20 08:00 Arformoterol 15 Mcg/2 Ml Nebu IH Q12HRT [facility] Aspirin 81 mg 07/22/20 10:00 Aspirin Ec 81 Mg Tab PO QDAY [facility] Atorvastatin Calcium 40 mg 07/22/20 22:00 Atorvastatin 40 Mg Tab PO QHS [facility] Budesonide 1 mg 07/22/20 08:00 Budesonide 0.5 Mg/2 Ml Nebu IH Q12HRT [facility] Celecoxib 200 mg 07/22/20 10:00 Celecoxib 200 Mg Cap PO DAILY [facility] Clonidine HCl 0.2 mg 07/21/20 23:00 07/21/20 22:30 Clonidine 0.2 Mg Tab PO 0.2 mg BID ANN MARIE Administration Clopidogrel Bisulfate 75 mg 07/22/20 10:00 Clopidogrel 75 Mg Tab PO QDAY [facility] Famotidine 20 mg 07/22/20 10:00 Famotidine 20 Mg Tab PO BID [facility] Ferrous Sulfate 325 mg 07/21/20 23:00 07/21/20 22:30 Ferrous Sulfate 325 Mg Tab PO 325 mg BID ANN MARIE Administration Furosemide 40 mg 07/22/20 08:00 Furosemide 40 Mg/4 Ml Inj IV 0600,1800 [facility] Heparin Sodium (Porcine) 5,000 unit 07/22/20 10:00 Heparin 5,000 Unit/1 Ml Vial SUB-Q Q12HR [facility] Hydralazine HCl 100 mg 07/21/20 23:00 07/22/20 05:01 Hydralazine 100 Mg Tab PO 100 mg Q8HR [facility] Administration Hydromorphone HCl 0.5 mg 07/21/20 22:40 Hydromorphone 1 Mg/1 Ml Inj IV Q3H PRN Pain , Severe (7-10) Insulin Human Isoph/Insulin Regular 15 unit 07/22/20 08:00 Insulin Nph/Regular 70/30 Inj SUB-Q BIDDIAB [facility] Insulin Human Lispro 0 unit 07/22/20 07:30 Insulin Lispro 100 Unit/Ml SUB-Q ACHS [facility] Protocol Isosorbide Mononitrate 60 mg 07/22/20 10:00 Isosorbide Mononitrate Er 60 Mg Tab PO QDAY [facility] Metoprolol Succinate 50 mg 07/22/20 10:00 Metoprolol Succinate Xl 50 Mg Tab PO QDAY [facility] Ondansetron HCl 4 mg 07/21/20 22:40 Ondansetron 4 Mg/2 Ml Inj IV Q3H PRN Nausea And Vomiting Oxycodone/Acetaminophen 1 tab 07/21/20 22:40 07/22/20 00:35 Oxycodone /Acetaminophen 5-325mg Tab PO 1 tab Q6H PRN Administration Pain, Moderate (4-6) Sodium Chloride 10 ml 07/22/20 10:00 Sodium Chloride 0.9% 10 Ml Flush Syringe IV BID [facility] Sodium Chloride 10 ml 07/21/20 22:40 Sodium Chloride 0.9% 10 Ml Flush Syringe IV PRN PRN LINE FLUSH
[2020-07-22] MEDS ORDERED: hydrALAZINE 20 MG/1 ML INJ IV PRN (08:00)
[2020-07-22] MEDS ORDERED: NON-FORMULARY EACH (Atorvastatin 40 MG) PO SCH (10:00)
[2020-07-22] MEDS ORDERED: NON-FORMULARY EACH (Sacubitril/Valsartan [Entresto 97 Mg-103 Mg Tablet] 1 EACH Tablet) PO SCH (10:00)
[2020-07-22] MEDS: FERROUS SULFATE 325 MG TAB PO SCH ×2 (10:04→21:59)
[2020-07-22] MEDS: ASPIRIN EC 81 MG TAB PO SCH (10:04)
[2020-07-22] MEDS: METOPROLOL SUCCINATE XL 50 MG TAB PO SCH (10:04)
[2020-07-22] MEDS: FAMOTIDINE 20 MG TAB PO SCH ×2 (10:05→21:58)
[2020-07-22] MEDS: cloNIDine 0.2 MG TAB PO SCH ×2 (10:05→22:23)
[2020-07-22] MEDS: CLOPIDOGREL 75 MG TAB PO SCH (10:05)
[2020-07-22] MEDS: HEPARIN 5,000 UNIT/1 ML VIAL SUB-Q SCH ×2 (10:07→21:58)
[2020-07-22] MEDS: ONDANSETRON 4 MG/2 ML INJ IV PRN (10:12)
[2020-07-22] MEDS: CELECOXIB 200 MG CAP PO SCH (10:13)
[2020-07-22] MEDS: SACUBITRIL/VALSARTAN 49-51 MG TAB PO SCH (10:14)
[2020-07-22] MEDS: INSULIN NPH/REGULAR 70/30 INJ SUB-Q SCH ×2 (10:15→17:44)
[2020-07-22] MEDS: BUDESONIDE 0.5 MG/2 ML NEBU IH SCH ×2 (11:19→20:21)
[2020-07-22] MEDS: ARFORMOTEROL 15 MCG/2 ML NEBU IH SCH ×2 (11:19→20:21)
--- NOTE | 2020-07-22 14:20 | Consultation ---
History of Present Illness Consult date: 07/22/20 Requesting physician: CELESTINE DICKEY Consult reason: congestive heart failure History of present illness: The pt is a 59 YO female with a past medical history of CAD s/p PCI, HTN, HLP, COPD, intermittent tobacco use, chronic respiratory failure on home O2 (follows Dr. Shahid), ADAN, morbid obesity. She is followed in our office by Dr. Hernandez. She presented with c/o several days of progressively worsening SOB, PERALES, orthop wilbert and BLE edema. She also c/o cough and intermittent pleuritic chest pain associated with coughing. She denies any palpitations, n/v, diaphoresis, dizziness or syncope. She reports compliance with her home medication regimen. Admission BP was 213/143. C 06/2018 with PCI of ramus with DIANELYS, left main patent, LAD patent, RCA moderate to severe tortuosity with mid stent patent, circ patent, OM1 50% with ramus 100% with successful PCI, acute diastolic dysfunction. Echo done 04/2019 showed EF 35-40%, mild LVH, restrictive diastolic filling, moderate pulm HTN RVSP 53mmHg. Echo done 06/2018 showed EF 45-50%, mod LVH. Past History Past Medical History: other (as per HPI) Medications and Allergies Allergies Allergy/AdvReac Type Severity Reaction Status Date / Time Penicillins Allergy Severe GO INTO Verified 07/21/20 15:54 SHOCK Home Medications Medication Instructions Recorded Confirmed Last Taken Type AtorvaSTATin [Lipitor] 40 mg PO QHS #30 tablet 09/12/19 Unknown Rx ISOSORBIDE MONOnitrate [Imdur ER] 60 mg PO QDAY #30 tablet 09/12/19 Unknown Rx cloNIDine [Catapres] 0.2 mg PO BID #60 tablet 09/12/19 Unknown Rx hydrALAZINE [Apresoline TAB] 100 mg PO Q8HR #90 tab 09/12/19 Unknown Rx ALBUTEROL NEB's 0.083 inh PO Q6H 10/06/19 10/06/19 Unknown History Albuterol INH(or & Nicu Only) 6.7 gm PO Q6H PRN 10/06/19 10/06/19 Unknown History AtorvaSTATin 40 mg PO DAILY 10/06/19 10/06/19 Unknown History Budesonide/Formoterol Fumarate 10.2 gm PO Q6H 10/06/19 10/07/19 Unknown History [Budesonide-Formoterol 160-4.5] Celecoxib [celeBREX] 200 mg PO DAILY 10/06/19 10/06/19 Unknown History Clopidogrel [Plavix] 75 mg PO QWEEK 10/06/19 10/06/19 Unknown History Dulaglutide [Trulicity] 0.75 mg SQ DAILY 10/06/19 10/07/19 Unknown History HumuLIN 70/30 Kwikpen 15 units SQ BID 10/06/19 10/06/19 Unknown History Symbicort 160-4.5 Mcg Inhaler 160 1000units Q6H 10/06/19 10/07/19 Unknown History cloNIDine [Catapres] 0.2 mg PO BID 10/06/19 10/06/19 Unknown History Aspirin EC [Halfprin EC] 81 mg PO QDAY #30 tablet 10/09/19 Unknown Rx Furosemide [Lasix TAB] 40 mg PO QDAY #30 tablet 10/09/19 Unknown Rx Sacubitril/Valsartan [Entresto 97 1 each PO DAILY #30 tablet 10/09/19 Unknown Rx mg-103 mg Tablet] Simvastatin 40 mg PO QHS #30 tablet 10/09/19 Unknown Rx Budesonide [Pulmicort Flexhaler] 90 mcg IH BID #1 aer.pow.[email or web address] 02/09/20 Unknown Rx Ferrous Sulfate [Feosol 325 MG tab] 325 mg PO BID #60 tablet 02/09/20 Unknown Rx Furosemide [Lasix TAB] 40 mg PO 0600,1800 #60 tablet 02/09/20 Unknown Rx Metoprolol Xl [Metoprolol 50 mg PO QDAY #30 tablet 02/09/20 Unknown Rx SUCCINATE ER TAB] Prednisone [predniSONE 5 mg (6-Day 5 mg PO .TAPER #1 tab.ds.pk 02/09/20 Unknown Rx Pack, 21 Tabs)] Active Meds: Active Medications Acetaminophen (Acetaminophen 325 Mg Tab) 650 mg PO Q4H PRN PRN Reason: Pain MILD(1-3)/Fever >100.5/ALAS Albuterol (Albuterol 2.5 Mg/3 Ml Nebu) 2.5 mg IH Q4HRT PRN PRN Reason: Wheezing Arformoterol Tartrate (Arformoterol 15 Mcg/2 Ml Nebu) 15 mcg IH Q12HRT [facility] Last Admin: 07/22/20 11:19 Dose: 15 mcg Documented by: Aspirin (Aspirin Ec 81 Mg Tab) 81 mg PO QDAY [facility] Last Admin: 07/22/20 10:04 Dose: 81 mg Documented by: Atorvastatin Calcium (Atorvastatin 40 Mg Tab) 40 mg PO QHS [facility] Budesonide (Budesonide 0.5 Mg/2 Ml Nebu) 1 mg IH Q12HRT [facility] Last Admin: 07/22/20 11:19 Dose: 1 mg Documented by: Celecoxib (Celecoxib 200 Mg Cap) 200 mg PO DAILY [facility] Last Admin: 07/22/20 10:13 Dose: 200 mg Documented by: Clonidine HCl (Clonidine 0.2 Mg Tab) 0.2 mg PO BID [facility] Last Admin: 07/22/20 10:05 Dose: 0.2 mg Documented by: Clopidogrel Bisulfate (Clopidogrel 75 Mg Tab) 75 mg PO QDAY [facility] Last Admin: 07/22/20 10:05 Dose: 75 mg Documented by: Famotidine (Famotidine 20 Mg Tab) 20 mg PO BID [facility] Last Admin: 07/22/20 10:05 Dose: 20 mg Documented by: Ferrous Sulfate (Ferrous Sulfate 325 Mg Tab) 325 mg PO BID [facility] Last Admin: 07/22/20 10:04 Dose: 325 mg Documented by: Furosemide (Furosemide 40 Mg/4 Ml Inj) 40 mg IV 0600,1800 [facility] Heparin Sodium (Porcine) (Heparin 5,000 Unit/1 Ml Vial) 5,000 unit SUB-Q Q12HR [facility] Last Admin: 07/22/20 10:07 Dose: 5,000 unit Documented by: Hydralazine HCl (Hydralazine 100 Mg Tab) 100 mg PO Q8HR [facility] Last Admin: 07/22/20 13:06 Dose: 100 mg Documented by: Hydralazine HCl (Hydralazine 20 Mg/1 Ml Inj) 10 mg IV Q4H PRN PRN Reason: Hypertension Hydromorphone HCl (Hydromorphone 1 Mg/1 Ml Inj) 0.5 mg IV Q3H PRN PRN Reason: Pain , Severe (7-10) Insulin Human Isoph/Insulin Regular (Insulin Nph/Regular 70/30 Inj) 15 unit SUB-Q BIDDIAB [facility] Last Admin: 07/22/20 10:15 Dose: 15 unit Documented by: Insulin Human Lispro (Insulin Lispro 100 Unit/Ml) 0 unit SUB-Q ACHS ANN MARIE; [place]ylor col Last Admin: 07/22/20 13:04 Dose: Not Given Documented by: Isosorbide Mononitrate (Isosorbide Mononitrate Er 60 Mg Tab) 60 mg PO QDAY [facility] Last Admin: 07/22/20 10:04 Dose: 60 mg Documented by: Metoprolol Succinate (Metoprolol Succinate Xl 50 Mg Tab) 50 mg PO QDAY [facility] Last Admin: 07/22/20 10:04 Dose: 50 mg Documented by: Ondansetron HCl (Ondansetron 4 Mg/2 Ml Inj) 4 mg IV Q3H PRN PRN Reason: Nausea And Vomiting Last Admin: 07/22/20 10:12 Dose: 4 mg Documented by: Oxycodone/Acetaminophen (Oxycodone /Acetaminophen 5-325mg Tab) 1 tab PO Q6H PRN PRN Reason: Pain, Moderate (4-6) Last Admin: 07/22/20 10:11 Dose: 1 tab Documented by: Sodium Chloride (Sodium Chloride 0.9% 10 Ml Flush Syringe) 10 ml IV BID [facility] Last Admin: 07/22/20 10:06 Dose: 10 ml Documented by: Sodium Chloride (Sodium Chloride 0.9% 10 Ml Flush Syringe) 10 ml IV PRN PRN PRN Reason: LINE FLUSH Review of Systems Constitutional: no fever, no chills, no sweats Ears, nose, mouth and throat: no ear pain, no nose pain, no sinus pressure, no sinus pain Cardiovascular: shortness of breath Respiratory: shortness of breath, no cough, no congestion, no wheezing, no pain on inspiration Gastrointestinal: no abdominal pain, no nausea, no vomiting, no diarrhea, no constipation, no change in bowel habits Genitourinary Female: no pelvic pain, no flank pain, no dysuria, no urinary frequency, no urgency Musculoskeletal: no neck stiffness, no neck pain, no shooting arm pain, no arm numbness/tingling, no low back pain, no shooting leg pain, no leg numbness/tingling Integumentary: no rash, no pruritis, no redness, no sores, no wounds Neurological: no head injury, no paralysis, no weakness, no parathesias, no numbness, no tingling, no seizures, no syncope Psychiatric: no anxiety Endocrine: no cold intolerance, no heat intolerance Hematologic/Lymphatic: no easy bruising Allergic/Immunologic: no urticaria Physical Examination Vital Signs Temp Pulse Resp BP Pulse Ox 97.8 F 107 H 20 213/143 96 07/21/20 15:59 07/21/20 15:59 07/21/20 15:59 07/21/20 15:59 07/21/20 15:59 General appearance: no acute distress HEENT: Positive: PERRL, Normocephaly, Mucus Membranes Moist Neck: Positive: neck supple, trachea midline Cardiac: Positive: Reg Rate and Rhythm, S1/S2 Lungs: Positive: Decreased Breath Sounds Neuro: Negative: Grossly Intact Abdomen: Negative: Tender Skin: Negative: Rash Musculoskeletal: No Pain Extremities: Absent: edema Results 07/22/20 04:56 07/22/20 04:56 Cardiac Enzymes 07/22/20 07/22/20 Range/Units 04:56 04:56 AST 7 (5-40) units/L CK-MB (CK-2) 2.5 (0.0-4.0) ng/mL Coagulation 07/21/20 Range/Units 16:09 PT 13.5 (12.2-14.9) Sec. INR 1.04 (0.87-1.13) CBC 07/21/20 07/22/20 Range/Units 16:09 04:56 WBC 7.9 7.7 (4.5-11.0) K/mm3 RBC 5.24 H 5.12 H (3.65-5.03) M/mm3 Hgb 9.0 L 8.8 L (10.1-14.3) gm/dl Hct 31.2 30.8 (30.3-42.9) % Plt Count 350 331 (140-440) K/mm3 Lymph # (Auto) 1.3 1.4 (1.2-5.4) K/mm3 [place] # (Auto) 0.7 0.7 (0.0-0.8) K/mm3 Eos # (Auto) 0.2 0.2 (0.0-0.4) K/mm3 Baso # (Auto) 0.1 0.1 (0.0-0.1) K/mm3 Comprehensive Metabolic Panel 07/21/20 07/22/20 Range/Units 16:09 04:56 Sodium 139 140 (137-145) mmol/L Potassium 4.2 4.1 (3.6-5.0) mmol/L Chloride 104.9 104.5 (98-107) mmol/L Carbon Dioxide 22 25 (22-30) mmol/L BUN 14 15 (7-17) mg/dL Creatinine 0.9 0.7 (0.6-1.2) mg/dL Glucose 100 84 (65-100) mg/dL Calcium 8.7 8.6 (8.4-10.2) mg/dL AST 7 (5-40) units/L ALT 5 L (7-56) units/L Alkaline Phosphatase 161 H (35-129) units/L Total Protein 7.3 (6.3-8.2) g/dL Albumin 3.6 L (3.9-5) g/dL - Imaging and Cardiology Echo: report reviewed (04/2019 showed EF 35-40%, mild LVH, restrictive diastolic filling, moderate pulm HTN RVSP 53mmHg. ) EKG: report reviewed, image reviewed EKG interpretations - Telemetry EKG Rhythm: Sinus Rhythm - EKG Sinus rhythms and dysrhythmias: sinus rhythm Assessment and Plan Agree with present cardiac management. Pt refused completion of stress testing this AM. Await tte. Will follow. Pt seen in conjunction with Dr. Joselito Brian who agrees with the assessment and plan of care. - Patient Problems (1) Acute on chronic HFrEF (heart failure with reduced ejection fraction) Current Visit: Yes Status: Acute (2) Acute on chronic respiratory failure Current Visit: Yes Status: Acute Qualifiers: Respiratory failure complication: hypoxia Qualified Code(s): J96.21 - Acute and chronic respiratory failure with hypoxia (3) COPD with exacerbation Current Visit: Yes Status: Acute (4) Obesity hypoventilation syndrome Current Visit: Yes Status: Chronic (5) Obstructive sleep apnea Current Visit: Yes Status: Chronic (6) Pulmonary hypertension Current Visit: Yes Status: Chronic (7) Accelerated hypertension Current Visit: Yes Status: Acute (8) Prolonged QT interval Current Visit: Yes Status: Acute (9) Cardiomyopathy Current Visit: Yes Status: Chronic Qualifiers: Cardiomyopathy type: ischemic Qualified Code(s): I25.5 - Ischemic cardiomyopathy (10) CAD (coronary artery disease) Current Visit: Yes Status: Chronic Qualifiers: Coronary Disease-Associated Artery/Lesion type: [place] artery [place] vs. transplanted heart: [place] heart Associated angina: without angina Qualified Code(s): I25.10 - Atherosclerotic heart disease of [place] coronary artery without angina pectoris (11) Stented coronary artery Current Visit: Yes Status: Chronic (12) Anemia Current Visit: Yes Status: Acute (13) Elevated alkaline phosphatase level Current Visit: Yes Status: Acute (14) Hyperlipidemia Current Visit: Yes Status: Chronic Qualifiers: Hyperlipidemia type: mixed hyperlipidemia Qualified Code(s): E78.2 - Mixed hyperlipidemia (15) Diabetes mellitus, type 2 Current Visit: Yes Status: Chronic (16) Morbid obesity Current Visit: Yes Status: Chronic (17) Tobacco abuse Current Visit: No Status: Chronic (18) Medical non-compliance Current Visit: Yes Status: Chronic Plan to address problem: secondary to financial obstacles
[2020-07-22 14:47] LABS: Creatine Kinase MB 2.4 ng/mL (0.0-4.0)
[2020-07-22] MEDS: FUROSEMIDE 40 MG/4 ML INJ IV SCH (17:44)
[2020-07-23] MEDS: oxyCODONE /ACETAMINOPHEN 5-325MG TAB PO PRN ×4 (00:20→21:38)
[2020-07-23] MEDS: hydrALAZINE 100 MG TAB PO SCH ×4 (00:23→21:38)
[2020-07-23] MEDS: ONDANSETRON 4 MG/2 ML INJ IV PRN (05:45)
[2020-07-23] MEDS: FUROSEMIDE 40 MG/4 ML INJ IV SCH ×2 (05:45→17:57)
[2020-07-23 07:43] LABS: Blood Urea Nitrogen 16 mg/dL (7-17); Calcium 8.6 mg/dL (8.4-10.2); Hemolysis Index 187
[2020-07-23 07:59] LABS: BUN/Creatinine Ratio 23
[2020-07-23] MEDS ORDERED: SODIUM POLYSTYRENE 15 GM/60 ML ORAL LIQD PO ONE (08:18)
[2020-07-23] MEDS ORDERED: INSULIN REGULAR, HUMAN 100 UNITS/1 ML IV ONE (08:20)
[2020-07-23] MEDS ORDERED: DEXTROSE 50% IN WATER (25GM) 50 ML VIAL IV ONE ×2 (08:21→09:00)
[2020-07-23] MEDS: ARFORMOTEROL 15 MCG/2 ML NEBU IH SCH ×2 (08:46→21:10)
[2020-07-23] MEDS: BUDESONIDE 0.5 MG/2 ML NEBU IH SCH ×3 (08:47→21:11)
[2020-07-23] MEDS ORDERED: DEXTROSE 50% IN WATER (25GM) 50 ML SYRINGE IV ONE ×2 (08:50→10:00)
[2020-07-23] MEDS: FAMOTIDINE 20 MG TAB PO SCH ×2 (09:23→21:39)
[2020-07-23] MEDS: ASPIRIN EC 81 MG TAB PO SCH (09:23)
[2020-07-23] MEDS: FERROUS SULFATE 325 MG TAB PO SCH ×2 (09:23→21:38)
[2020-07-23] MEDS: CLOPIDOGREL 75 MG TAB PO SCH (09:23)
[2020-07-23] MEDS: METOPROLOL SUCCINATE XL 50 MG TAB PO SCH (09:28)
[2020-07-23] MEDS: INSULIN LISPRO 100 UNIT/ML SUB-Q SCH ×4 (09:35→21:40)
[2020-07-23] MEDS: INSULIN NPH/REGULAR 70/30 INJ SUB-Q SCH ×2 (09:35→17:57)
[2020-07-23] MEDS: SACUBITRIL/VALSARTAN 49-51 MG TAB PO SCH (09:39)
[2020-07-23] MEDS: HEPARIN 5,000 UNIT/1 ML VIAL SUB-Q SCH ×2 (09:39→21:39)
--- NOTE | 2020-07-23 10:22 | Progress Note ---
Subjective Date of service: 07/23/20 Interval history: Assessment and plan: 60-year-old -[place] female with history of multiple medical problems including hypertension, congestive heart failure, coronary artery disease with 4 stents: Insulin-dependent diabetes: Deep vein thrombosis: COPD, comes in for chest pain management greater on the left side for the last 1 week. Intermittent in nature. Patient is taking her Lasix and other medications. Patient ran out of home oxygen yesterday. Patient states that she has chronic respiratory failure and is on home oxygen. Chest pain is ongoing for the last 1 week and intermittent nature. Mostly left precordial. Some shortness of breath present. Is it is at baseline to have some shortness of breath and patient is on Lasix and Entresto. Patient has class IV NYHA symptoms. No diaphoresis. No radiation of pain. No exacerbating or relieving factors. Patient has history of severe coronary artery disease and had 4 stents. Patient's primary nursing administrator is Dr. Hernandez. 07/22: Discussed extensively with the patient today I believe patient has underlying congestive heart failure. Awaiting further input from cardiology. We will continue diuresis with changed Lasix to IV twice daily and monitor ins and outs. Monitor electrolytes and adjust as needed. Patient is on 4 L of oxygen at home. Noted Microcytic anemia- start on iron CAD/PCI: [place] ruled out Troponin x2 - negative Patient with extensive coronary artery disease and 4 stents has been having sharp left-sided chest pain , worse with deep breath Left upper chest wall is moderately tender Cardiology consulted and cardiology note reviewed Acute on chronic CHF EF 35 to 40% in 2019 Repeat echo is pending Cardiology consulted and note reviewed Continue Lasix IV Hold on Entresto as the patient was noted to be hyperkalemic this morning BNP is high in the mid 2 thousands Continue Lasix IV Daily weights Daily intake and output Echocardiogram for ejection fraction not done recently Hyperkalemia Ordered Kayexalate and 1 dose of IV D50 with 5 units of insulin Hold Entresto for now until cardiology evaluation Discussed with RN Monitor electrolytes closely Acute bronchitis with pleuritic chest pain and moderate left upper chest wall tenderness We will empirically start the patient on p.o. antibiotic Levaquin x3 days Patient also complains of productive cough with yellowish green sputum She denies any fever or chills Acute hypoxic respiratory failure Continue oxygen via nasal cannula Likely multifactorial etiology including CHF and COPD Patient is on home oxygen Hypertension Patient is on multiple medications Blood pressure is in the low normal range with BP systolic around 120 Discussed with RN She is holding off on antihypertensive medication for now However beta-vamsi was given Will decrease clonidine to 0.1 mg Type 2 diabetes on insulin Continue insulin sliding scale coverage A1c 5.8 Morbid obesity Counseling on diet, exercise and weight loss was emphasized Discussed the dangers of obesity Hyperlipidemia Continue statin DVT prophylaxis On heparin and GI prophylaxis History Interval history: Patient seen and examined still with shortness of breath although reports some improvement. Still with what she describes as [id number] pain across the mid sternum area. 07/23 Patient is awake alert and oriented, complains of sharp left upper chest pain, increased with deep breath and with cough She denies any fever or chills. Also complains of productive cough with yellowish-green sputum Lab results reviewed, cardiology note reviewed Objective - Constitutional Vitals: Vital Signs - 12hr 07/23/20 07/23/20 07/23/20 00:00 00:18 03:00 Temperature 98.0 F Pulse Rate 72 72 Respiratory 20 Rate Blood Pressure 124/64 O2 Sat by Pulse 96 100 Oximetry 07/23/20 07/23/20 07/23/20 05:02 05:13 07:39 Temperature 98.2 F 98.4 F 97.9 F Pulse Rate 75 63 89 Respiratory 20 16 18 Rate Blood Pressure 148/79 164/64 119/62 O2 Sat by Pulse 95 97 93 Oximetry 07/23/20 09:28 Temperature Pulse Rate Respiratory Rate Blood Pressure 119/62 O2 Sat by Pulse Oximetry General appearance: Present: no acute distress, obese - EENT Eyes: PERRL, EOM intact ENT: hearing intact, no thrush - Neck Neck: supple, normal ROM, no masses or JVD - Respiratory Respiratory effort: normal Respiratory: bilateral: diminished, negative: rhonchi, other (Moderate tenderness over the left upper chest wall) - Breasts Breasts: deferred - Cardiovascular Rhythm: regular Heart Sounds: Present: S1 & S2 Extremities: No edema - Gastrointestinal General gastrointestinal: Present: soft, non-tender Rectal Exam: deferred - Integumentary Integumentary: clear, warm - Musculoskeletal Musculoskeletal: strength equal bilaterally, other (Moderate tenderness over the left upper chest wall) - Neurologic Neurologic: CNII-XII intact, no focal deficits - Psychiatric Psychiatric: appropriate mood/affect - Labs CBC & Chem 7: 07/22/20 04:56 07/23/20 06:41 Labs: Abnormal lab results 07/22/20 07/22/20 07/22/20 Range/Units 11:20 14:03 15:36 Sodium (137-145) mmol/L Potassium (3.6-5.0) mmol/L Glucose (65-100) mg/dL POC Glucose 136 H 136 H (70-105) mg/dL CK-MB (CK-2) Rel Index 6.3 H (0-4) 07/22/20 07/23/20 Range/Units 21:48 06:41 Sodium 136 L (137-145) mmol/L Potassium 6.1 H* D (3.6-5.0) mmol/L Glucose 115 H (65-100) mg/dL POC Glucose 122 H (70-105) mg/dL CK-MB (CK-2) Rel Index (0-4) HEART Score - HEART Score EKG: Non-specific Age: 45-65 Risk factors: > 3 risk factors or hx of atherosclerotic disease Troponin: Troponin T < 0.010 ng/mL (0.00-0.029) 07/22/20 14:03 Troponin: < normal limit - Critical Actions Critical Actions: 4-6 pts:12-16.6% risk of adverse cardiac event. Should be admitted
[2020-07-23] MEDS: cloNIDine 0.2 MG TAB PO SCH ×2 (10:43→21:39)
[2020-07-23] MEDS: CELECOXIB 200 MG CAP PO SCH (11:14)
[2020-07-23] MEDS: levoFLOXacin 500 MG TAB PO SCH (11:14)
--- NOTE | 2020-07-23 14:15 | Progress Note ---
Assessment and Plan - Patient Problems (1) Acute on chronic HFrEF (heart failure with reduced ejection fraction) Current Visit: Yes Status: Acute (2) Acute on chronic respiratory failure Current Visit: Yes Status: Acute Qualifiers: Respiratory failure complication: hypoxia Qualified Code(s): J96.21 - Acute and chronic respiratory failure with hypoxia (3) COPD with exacerbation Current Visit: Yes Status: Acute (4) Obesity hypoventilation syndrome Current Visit: Yes Status: Chronic (5) Obstructive sleep apnea Current Visit: Yes Status: Chronic (6) Pulmonary hypertension Current Visit: Yes Status: Chronic (7) Accelerated hypertension Current Visit: Yes Status: Acute (8) Prolonged QT interval Current Visit: Yes Status: Acute (9) Cardiomyopathy Current Visit: Yes Status: Chronic Qualifiers: Cardiomyopathy type: ischemic Qualified Code(s): I25.5 - Ischemic cardiomyopathy (10) CAD (coronary artery disease) Current Visit: Yes Status: Chronic Qualifiers: Coronary Disease-Associated Artery/Lesion type: [place] artery [place] vs. transplanted heart: [place] heart Associated angina: without angina Qualified Code(s): I25.10 - Atherosclerotic heart disease of [place] coronary artery without angina pectoris (11) Stented coronary artery Current Visit: Yes Status: Chronic (12) Anemia Current Visit: Yes Status: Acute (13) Elevated alkaline phosphatase level Current Visit: Yes Status: Acute (14) Hyperlipidemia Current Visit: Yes Status: Chronic Qualifiers: Hyperlipidemia type: mixed hyperlipidemia Qualified Code(s): E78.2 - Mixed hyperlipidemia (15) Diabetes mellitus, type 2 Current Visit: Yes Status: Chronic (16) Morbid obesity Current Visit: Yes Status: Chronic (17) Tobacco abuse Current Visit: No Status: Chronic (18) Medical non-compliance Current Visit: Yes Status: Chronic Plan to address problem: Subjective Date of service: 07/23/20 Interval history: complains of cp on breathing.Patient was asleep. When i woke her up patient started complaining of chest pain. Objective Vital Signs Temp Pulse Pulse Resp Resp BP Pulse Ox 07/23/20 12:00 18 94 07/23/20 11:52 98.0 F 84 18 147/84 99 07/23/20 11:00 107 H 07/23/20 09:28 119/62 07/23/20 07:39 97.9 F 89 18 119/62 93 07/23/20 05:13 98.4 F 63 16 164/64 97 07/23/20 05:02 98.2 F 75 20 148/79 95 07/23/20 03:00 72 07/23/20 00:18 98.0 F 72 20 124/64 100 07/23/20 00:00 96 07/22/20 20:51 91 07/22/20 20:49 75 15 07/22/20 20:02 97.4 F L 74 20 103/77 95 07/22/20 15:39 98.6 F 65 20 123/76 100 - Physical Examination HEENT: Positive: PERRL, Normocephaly, Mucus Membranes Moist Neck: Positive: neck supple, trachea midline Neuro: Negative: Grossly Intact Abdomen: Negative: Tender Skin: Negative: Rash Musculoskeletal: No Pain Extremities: Absent: edema - Labs and Meds Cardiac Enzymes 07/22/20 Range/Units 14:03 CK-MB (CK-2) 2.4 (0.0-4.0) ng/mL Comprehensive Metabolic Panel 07/23/20 Range/Units 06:41 Sodium 136 L (137-145) mmol/L Potassium 6.1 H* D (3.6-5.0) mmol/L Chloride 100.9 (98-107) mmol/L Carbon Dioxide 27 (22-30) mmol/L BUN 16 (7-17) mg/dL Creatinine 0.7 (0.6-1.2) mg/dL Glucose 115 H (65-100) mg/dL Calcium 8.6 (8.4-10.2) mg/dL - Imaging and Cardiology EKG: report reviewed, image reviewed Echo: report reviewed (04/2019 showed EF 35-40%, mild LVH, restrictive diastolic filling, moderate pulm HTN RVSP 53mmHg. ) - EKG Sinus rhythms and dysrhythmias: sinus rhythm
[2020-07-23 15:18] LABS: BUN/Creatinine Ratio 18; Blood Urea Nitrogen 14 mg/dL (7-17); Calcium 8.7 mg/dL (8.4-10.2); Hemolysis Index 0
[2020-07-24] MEDS: FUROSEMIDE 40 MG/4 ML INJ IV SCH ×2 (05:23→18:11)
[2020-07-24] MEDS: oxyCODONE /ACETAMINOPHEN 5-325MG TAB PO PRN ×3 (05:23→21:23)
[2020-07-24] MEDS: hydrALAZINE 100 MG TAB PO SCH ×3 (05:23→21:24)
[2020-07-24] MEDS: BUDESONIDE 0.5 MG/2 ML NEBU IH SCH ×2 (07:44→22:59)
[2020-07-24] MEDS: ARFORMOTEROL 15 MCG/2 ML NEBU IH SCH ×2 (07:44→22:59)
[2020-07-24] MEDS: INSULIN LISPRO 100 UNIT/ML SUB-Q SCH ×4 (08:38→21:25)
[2020-07-24] MEDS: INSULIN NPH/REGULAR 70/30 INJ SUB-Q SCH ×2 (08:39→16:37)
[2020-07-24] MEDS: cloNIDine 0.2 MG TAB PO SCH ×2 (09:31→21:22)
[2020-07-24] MEDS: FERROUS SULFATE 325 MG TAB PO SCH ×2 (09:31→21:23)
[2020-07-24] MEDS: CELECOXIB 200 MG CAP PO SCH (09:32)
[2020-07-24] MEDS: CLOPIDOGREL 75 MG TAB PO SCH (09:32)
[2020-07-24] MEDS: SACUBITRIL/VALSARTAN 49-51 MG TAB PO SCH (09:32)
[2020-07-24] MEDS: METOPROLOL SUCCINATE XL 50 MG TAB PO SCH (09:32)
[2020-07-24] MEDS: levoFLOXacin 500 MG TAB PO SCH (09:32)
[2020-07-24] MEDS: FAMOTIDINE 20 MG TAB PO SCH ×2 (09:32→21:24)
[2020-07-24] MEDS: HEPARIN 5,000 UNIT/1 ML VIAL SUB-Q SCH ×2 (09:36→21:24)
[2020-07-24] MEDS: ASPIRIN EC 81 MG TAB PO SCH (09:36)
[2020-07-24 10:54] LABS: Blood Urea Nitrogen 14 mg/dL (7-17); Calcium 8.7 mg/dL (8.4-10.2); Hemolysis Index 14
[2020-07-24 10:58] LABS: BUN/Creatinine Ratio 20
[2020-07-24 11:07] LABS: Mean Corpuscular HGB Conc 29 % (30-34); Platelet Count 291 K/mm3 (140-440); Red Blood Count 5.56 M/mm3 (3.65-5.03)
--- NOTE | 2020-07-24 11:17 | Progress Note ---
Assessment and Plan 60-year-old -[place] female with history of multiple medical problems including hypertension, congestive heart failure, coronary artery disease with 4 stents: Insulin-dependent diabetes: Deep vein thrombosis: COPD, comes in for [facility] pain management greater on the left side for the last 1 week. Intermittent in nature. Patient is taking her Lasix and other medications. Patient ran out of home oxygen yesterday. Patient states that she has chronic respiratory failure and is on home oxygen. Chest pain is ongoing for the last 1 week and intermittent nature. Mostly left precordial. Some shortness of breath present. Is it is at baseline to have some shortness of breath and patient is on Lasix and Entresto. Patient has class IV NYHA symptoms. No diaphoresis. No radiation of pain. No exacerbating or relieving factors. Patient has history of severe coronary artery disease and had 4 stents. Patient's primary cardio logist is Dr. Hernandez. 07/22: Discussed extensively with the patient today I believe patient has un derlying congestive heart failure. Awaiting further input from cardiology. We will continue diuresis with changed Lasix to IV twice daily and monitor ins and outs. Monitor electrolytes and adjust as needed. Patient is on 4 L of oxygen at home. Noted Microcytic anemia- start on iron CAD/PCI: [place] ruled out Troponin x2 - negative Patient with extensive coronary artery disease and 4 stents has been having sharp left-sided chest pain , worse with deep breath Left upper chest wall is moderately tender. not tender today Cardiology consulted and cardiology note reviewed Acute on chronic CHF EF 35 to 40% in 2019 Repeat echo is pending Cardiology consulted and note reviewed Change IV Lasix to p.o. soon for for anticipated discharge. Hold on Entresto as the patient was noted to be hyperkalemic this morning BNP is high in the mid 2 thousands Continue Lasix IV Daily weights Daily intake and output Echocardiogram for ejection fraction not done recently Hyperkalemia Ordered Kayexalate and 1 dose of IV D50 with 5 units of insulin Hold Entresto for now until cardiology evaluation Discussed with RN Monitor electrolytes closely Acute bronchitis with pleuritic chest pain and moderate left upper chest wall tenderness We will empirically start the patient on p.o. antibiotic Levaquin x3 days Patient also complains of productive cough with yellowish green sputum She denies any fever or chills Acute hypoxic respiratory failure Continue oxygen via nasal cannula Likely multifactorial etiology including CHF and COPD Patient is on home oxygen Hypertension Patient is on multiple medications Blood pressure is in the low normal range with BP systolic around 120 BP much better at this particular time. Will titrate accordingly. She is holding off on antihypertensive medication for now However beta-vamsi was given Will decrease clonidine to 0.1 mg Type 2 diabetes on insulin Continue insulin sliding scale coverage A1c 5.8 Morbid obesity Counseling on diet, exercise and weight loss was emphasized Discussed the dangers of obesity Hyperlipidemia Continue statin DVT prophylaxis On heparin and GI prophylaxis Subjective Date of service: 07/24/20 Principal diagnosis: Chest pain. Interval history: Interval history: Patient seen and examined still with shortness of breath although reports some improvement. Still with what she describes as [id number] pain across the mid sternum area. 07/23 Patient is awake alert and oriented, complains of sharp left upper chest pain, increased with deep breath and with cough She denies any fever or chills. Also complains of productive cough with yellowish-green sputum Lab results reviewed, cardiology note reviewed 07/24. Patient complains of pain when she takes deep breath. It is unusual every conversation comes to patient's states she has pain and that we are not recognizing her pain at this time. But patient did not appear to be any chest pain. Also appears to have preoccupation about what types of pain medications and or anything for anxiety IV. Patient does not want any p.o. medications only wants IV medications. Clearly does not appear in any distress at this time. Able to speak in full sentences make needs known without any chest pain or shortness of breath at this time. Objective - Constitutional Vitals: Vital Signs - 12hr 07/24/20 07/24/20 07/24/20 00:30 04:00 05:26 Temperature 98.3 F 98.3 F Pulse Rate 86 104 H 88 Respiratory 20 20 Rate Blood Pressure 103/50 Blood Pressure 159/80 [Right] O2 Sat by Pulse 93 Oximetry 07/24/20 08:11 Temperature 98.1 F Pulse Rate 91 H Respiratory 18 Rate Blood Pressure 180/84 Blood Pressure [Right] O2 Sat by Pulse 96 Oximetry General appearance: Present: no acute distress, well-nourished - EENT Eyes: PERRL, EOM intact ENT: hearing intact, clear oral mucosa Ears: bilateral: normal - Neck Neck: supple, normal ROM - Respiratory Respiratory effort: normal Respiratory: bilateral: CTA - Breasts Breasts: normal - Cardiovascular Rhythm: regular Heart Sounds: Present: S1 & S2. Absent: gallop, rub Extremities: pulses intact, No edema, normal color, Full ROM - Gastrointestinal General gastrointestinal: Present: soft, non-tender, non-distended, normal bowel sounds - Genitourinary Female genitourinary: normal - Integumentary Integumentary: clear, warm, dry - Musculoskeletal Musculoskeletal: strength equal bilaterally, other (Fluid has improved significantly.) - Neurologic Neurologic: moves all extremities - Psychiatric Psychiatric: memory intact, appropriate mood/affect, intact judgment & insight - Labs CBC & Chem 7: 07/24/20 08:49 07/24/20 08:49 Labs: Abnormal lab results 07/23/20 07/23/20 07/23/20 Range/Units 07:20 11:50 14:21 Sodium (137-145) mmol/L Glucose 103 H (65-100) mg/dL POC Glucose 107 H 112 H (70-105) mg/dL 07/23/20 07/23/20 07/24/20 Range/Units 15:35 20:49 08:49 Sodium 136 L (137-145) mmol/L Glucose (65-100) mg/dL POC Glucose 118 H 116 H (70-105) mg/dL HEART Score - HEART Score EKG: Non-specific Age: 45-65 Risk factors: > 3 risk factors or hx of atherosclerotic disease Troponin: Troponin T < 0.010 ng/mL (0.00-0.029) 07/22/20 14:03 Troponin: < normal limit - Critical Actions Critical Actions: 4-6 pts:12-16.6% risk of adverse cardiac event. Should be admitted
[2020-07-24 11:18] LABS: Hematocrit 33.4 % (30.3-42.9); Hemoglobin 9.5 gm/dl (10.1-14.3); Mean Corpuscular Volume 60 fl (79-97); Red Cell Distribution Width 24.6 % (13.2-15.2)
--- NOTE | 2020-07-24 14:46 | Progress Note ---
Assessment and Plan Patient may be discharged. - Patient Problems (1) Acute on chronic HFrEF (heart failure with reduced ejection fraction) Current Visit: Yes Status: Acute (2) Acute on chronic respiratory failure Current Visit: Yes Status: Acute Qualifiers: Respiratory failure complication: hypoxia Qualified Code(s): J96.21 - Acute and chronic respiratory failure with hypoxia (3) COPD with exacerbation Current Visit: Yes Status: Acute (4) Obesity hypoventilation syndrome Current Visit: Yes Status: Chronic (5) Obstructive sleep apnea Current Visit: Yes Status: Chronic (6) Pulmonary hypertension Current Visit: Yes Status: Chronic (7) Accelerated hypertension Current Visit: Yes Status: Acute (8) Prolonged QT interval Current Visit: Yes Status: Acute (9) Cardiomyopathy Current Visit: Yes Status: Chronic Qualifiers: Cardiomyopathy type: ischemic Qualified Code(s): I25.5 - Ischemic cardiomyopathy (10) CAD (coronary artery disease) Current Visit: Yes Status: Chronic Qualifiers: Coronary Disease-Associated Artery/Lesion type: [place] artery [place] vs. transplanted heart: [place] heart Associated angina: without angina Qualified Code(s): I25.10 - Atherosclerotic heart disease of [place] coronary artery without angina pectoris (11) Stented coronary artery Current Visit: Yes Status: Chronic (12) Anemia Current Visit: Yes Status: Acute (13) Elevated alkaline phosphatase level Current Visit: Yes Status: Acute (14) Hyperlipidemia Current Visit: Yes Status: Chronic Qualifiers: Hyperlipidemia type: mixed hyperlipidemia Qualified Code(s): E78.2 - Mixed hyperlipidemia (15) Diabetes mellitus, type 2 Current Visit: Yes Status: Chronic (16) Morbid obesity Current Visit: Yes Status: Chronic (17) Tobacco abuse Current Visit: No Status: Chronic (18) Medical non-compliance Current Visit: Yes Status: Chronic Plan to address problem: Subjective Date of service: 07/24/20 Interval history: Patient complains of left-sided pleuritic type of chest pain and movements. Patient is diuresing well with IV Lasix and the swelling in lower extremities is decreasing. Objective Vital Signs Temp Pulse Pulse Resp Resp BP BP 07/24/20 12:00 92 H 07/24/20 11:28 98.2 F 89 18 131/84 07/24/20 09:00 20 07/24/20 08:11 98.1 F 91 H 18 180/84 07/24/20 07:44 85 18 07/24/20 05:26 98.3 F 88 20 159/80 07/24/20 04:00 104 H 07/24/20 00:30 98.3 F 86 20 103/50 07/23/20 21:39 96 H 112/53 07/23/20 21:38 20 07/23/20 21:01 07/23/20 20:59 85 15 07/23/20 20:54 07/23/20 19:32 98.2 F 81 20 122/53 07/23/20 19:00 77 07/23/20 15:36 98.4 F 89 18 146/79 Pulse Ox 07/24/20 12:00 07/24/20 11:28 91 07/24/20 09:00 98 07/24/20 08:11 96 07/24/20 07:44 95 07/24/20 05:26 07/24/20 04:00 07/24/20 00:30 93 07/23/20 21:39 07/23/20 21:38 07/23/20 21:01 96 07/23/20 20:59 07/23/20 20:54 97 07/23/20 19:32 92 07/23/20 19:00 07/23/20 15:36 94 - Physical Examination HEENT: Positive: PERRL, Normocephaly, Mucus Membranes Moist Neck: Positive: neck supple, trachea midline Neuro: Negative: Grossly Intact Abdomen: Negative: Tender Skin: Negative: Rash Musculoskeletal: No Pain Extremities: Absent: edema - Labs and Meds CBC 07/24/20 Range/Units 08:49 WBC 9.6 (4.5-11.0) K/mm3 RBC 5.56 H (3.65-5.03) M/mm3 Hgb 9.5 L (10.1-14.3) gm/dl Hct 33.4 (30.3-42.9) % Plt Count 291 (140-440) K/mm3 Comprehensive Metabolic Panel 07/23/20 07/24/20 Range/Units 14:21 08:49 Sodium 139 136 L (137-145) mmol/L Potassium 4.1 D 3.8 (3.6-5.0) mmol/L Chloride 102.4 99.7 (98-107) mmol/L Carbon Dioxide 26 24 (22-30) mmol/L BUN 14 14 (7-17) mg/dL Creatinine 0.8 0.7 (0.6-1.2) mg/dL Glucose 103 H 97 (65-100) mg/dL Calcium 8.7 8.7 (8.4-10.2) mg/dL - Imaging and Cardiology EKG: report reviewed, image reviewed Echo: report reviewed (04/2019 showed EF 35-40%, mild LVH, restrictive diastolic filling, moderate pulm HTN RVSP 53mmHg. ) - Telemetry EKG Rhythm: Sinus Rhythm (82/m) - EKG Sinus rhythms and dysrhythmias: sinus rhythm
[2020-07-25] MEDS: oxyCODONE /ACETAMINOPHEN 5-325MG TAB PO PRN (05:43)
[2020-07-25] MEDS: hydrALAZINE 100 MG TAB PO SCH ×2 (05:43→13:21)
[2020-07-25] MEDS: FUROSEMIDE 40 MG/4 ML INJ IV SCH (05:43)
[2020-07-25] MEDS: BUDESONIDE 0.5 MG/2 ML NEBU IH SCH (07:53)
[2020-07-25] MEDS: ARFORMOTEROL 15 MCG/2 ML NEBU IH SCH (07:53)
[2020-07-25] MEDS: INSULIN LISPRO 100 UNIT/ML SUB-Q SCH ×2 (08:10→11:37)
[2020-07-25] MEDS: INSULIN NPH/REGULAR 70/30 INJ SUB-Q SCH (08:37)
[2020-07-25] MEDS: ASPIRIN EC 81 MG TAB PO SCH (09:14)
[2020-07-25] MEDS: CLOPIDOGREL 75 MG TAB PO SCH (09:14)
[2020-07-25] MEDS: FERROUS SULFATE 325 MG TAB PO SCH (09:14)
[2020-07-25] MEDS: FAMOTIDINE 20 MG TAB PO SCH (09:14)
[2020-07-25] MEDS: METOPROLOL SUCCINATE XL 50 MG TAB PO SCH (09:15)
[2020-07-25] MEDS: cloNIDine 0.2 MG TAB PO SCH (09:15)
[2020-07-25] MEDS: HEPARIN 5,000 UNIT/1 ML VIAL SUB-Q SCH (09:16)
[2020-07-25] MEDS: CELECOXIB 200 MG CAP PO SCH (09:17)
[2020-07-25] MEDS: SACUBITRIL/VALSARTAN 49-51 MG TAB PO SCH (09:17)
[2020-07-25] MEDS: levoFLOXacin 500 MG TAB PO SCH (09:30)
[2020-07-25] MEDS ORDERED: FERROUS SULFATE 325 MG TAB PO SCH (10:00)
--- NOTE | 2020-07-25 10:24 | Discharge Summary ---
Providers - Providers Date of Admission: 07/22/20 08:55 Date of discharge: 07/25/20 Attending physician: MONIKA SMART 07/21/20 22:48 Consult to Physician [CONS] Routine Comment: Consulting Provider: MAGGI ROBERTS Physician Instructions: Reason For Exam: Acute coronary syndrome, CHF Primary care physician: MAGGI ROBERTS Hospitalization Reason for admission: sob Condition: Stable Hospital course: 60-year-old morbidly obese female with a history of hypertension, hyperlipidemia, congestive heart failure, coronary disease status post stent placement x4. Diabetes COPD presented with atypical chest pain described as prickly [id number] along left side of back associated with exacerbations during inspiration. Patient found to be congestive heart failure. Patient brought in diuresed well. Important note throughout hospital stay patient's complaint of chest pain was not consistent. Noted from the door speaking in full sentences without pain. And only when she walked to the door the patient complained of chest pain anxiety requesting morphine. Patient did not want Percocet. Follow-up serial chest x-ray suggests compensation of heart failure. Patient stabilized for discharge with further work-up with cardiology doing outpatient. Cardiology document already made aware. All questions and concerns answered to patient's satisfaction Disposition: DC-01 TO HOME OR SELFCARE Final Discharge Diagnosis (Prints w/discharge instructions): chf exacerbation - Discharge Diagnoses (1) Acute chest pain Status: Acute Comment: Atypical chest pain. Unlikely secondary to coronary artery disease. Patient has had stenting +4. Follow-up cardiology [facility] outpatient. Unable to perform stress test. Continue antiplatelet antilipid and long acting nitroglycerin. (2) Acute exacerbation of CHF (congestive heart failure) Status: Acute Comment: Now fairly well compensated we will continue diuresis Lasix and Entresto. Now fairly well compensated. (3) Hypertensive urgency, malignant Status: Acute Comment: Fairly well controlled with beta-vamsi metoprolol. (4) Hypertension Status: Chronic Qualifiers: Hypertension type: essential hypertension Qualified Code(s): I10 - Essential (primary) hypertension (5) IDDM (insulin dependent diabetes mellitus) Status: Chronic Comment: Optimal control with current dose of insulin. Tinea present management. (6) Morbid obesity with body mass index of 40.0-49.9 Status: Acute Comment: Suggest decrease caloric intake. Decrease carbohydrate. (7) O2 dependent Status: Acute Comment: Patient O2 dependent on 4 L of oxygen. Will resume this. (8) COPD (chronic obstructive pulmonary disease) Status: Chronic Comment: Stable with long-acting beta agonist as well as long- acting steroid. Continue nebulized albuterol as needed. (9) Hyperlipemia Status: Chronic Qualifiers: Hyperlipidemia type: mixed hyperlipidemia Qualified Code(s): E78.2 - Mixed hyperlipidemia Comment: statin Core Measure Documentation - Palliative Care Palliative Care/ Comfort Measures: Not Applicable - Core Measures Any of the following diagnoses?: none - Heart Failure Discharge Requirements LETTY/ARB for LVSD if EF <40%: Yes Beta vamsi at discharge: Yes Heart failure comment: echo 55% Exam - Constitutional Vitals: Temp Pulse Resp BP Pulse Ox 97.3 F L 78 20 131/63 97 07/25/20 08:01 07/25/20 09:18 07/25/20 08:01 07/25/20 09:18 07/25/20 08:01 General appearance: Present: no acute distress, well-nourished - EENT Eyes: Present: PERRL ENT: hearing intact, clear oral mucosa - Neck Neck: Present: supple, normal ROM - Respiratory Respiratory effort: normal Respiratory: bilateral: CTA - Cardiovascular Heart Sounds: Present: S1 & S2. Absent: rub, click - Extremities Extremities: pulses symmetrical, No edema Peripheral Pulses: within normal limits - Abdominal General gastrointestinal: Present: soft, non-tender, non-distended, normal bowel sounds Female genitourinary: Present: normal - Integumentary Integumentary: Present: clear, warm, dry - Musculoskeletal Musculoskeletal: gait normal, strength equal bilaterally - Psychiatric Psychiatric: appropriate mood/affect, intact judgment & insight - Neurologic Neurologic: CNII-XII intact, moves all extremities Plan Activity: advance as tolerated Weight Bearing Status: Weight Bear as Tolerated Diet: low cholesterol, diabetic Follow up with: MAGGI ROBERTS MD [Primary Care Provider] - 3-5 Days Prescriptions: hydrALAZINE [Apresoline TAB] 100 mg PO Q8HR #90 tab ISOSORBIDE MONOnitrate [Imdur ER] 60 mg PO QDAY #30 tablet oxyCODONE /ACETAMINOPHEN [Percocet 5/325 mg] 1 tab PO Q6H PRN #20 tablet PRN Reason: Pain, Moderate (4-6)
--- NOTE | 2020-07-25 10:59 | XRay Report ---
CHEST 1 VIEW 07/25/2020 9:52 AM INDICATION / CLINICAL INFORMATION: sob. COMPARISON: 07/21/2020. FINDINGS: SUPPORT DEVICES: None. HEART / MEDIASTINUM: Stable cardiomegaly. Aorta is tortuous and ectatic. LUNGS / PLEURA: Mild increased interstitial markings remain. No more localized infiltrate, pleural fl uid or pneumothorax. ADDITIONAL FINDINGS: No significant additional findings. IMPRESSION: Stable chest. Signer Name: Wilton Hinton MD Signed: 07/25/2020 10:55 AM Workstation Name: [id number]
[2020-07-25] MEDS ORDERED: LORazepam 2 MG/ML VIAL IV PRN (11:00)
[2020-07-25 12:25] VITALS: BP 112/55
--- NOTE | 2020-07-25 12:48 | Progress Note ---
Assessment and Plan Echo (07/22/20) Reviewed: EF 50-55%. Moderate LVH. Impaired LV relaxation. Mild TR. 04/2019 showed EF 35-40%, mild LVH, restrictive diastolic filling, moderate pulm HTN RVSP 53mmHg. EF is noted to have improved. Patient is currently in stable cardiac status. She appears to be nearing euvolemia. Pt may discharge home from cardiology standpoint. At discharge, recommend PO lasix 40mg daily and continue all other home cardiac regimen. Follow up in our [place] office with Dr Hernandez on 08/08/20 at 09:30AM. This patient was seen in conjunction with Dr Hernandez who agrees with this assessment and plan of care. (1) Acute on chronic HFrEF (heart failure with reduced ejection fraction) Current Visit: Yes Status: Acute (2) Acute on chronic respiratory failure Current Visit: Yes Status: Acute Qualifiers: Respiratory failure complication: hypoxia Qualified Code(s): J96.21 - Acute and chronic respiratory failure with hypoxia (3) COPD with exacerbation Current Visit: Yes Status: Acute (4) Obesity hypoventilation syndrome Current Visit: Yes Status: Chronic (5) Obstructive sleep apnea Current Visit: Yes Status: Chronic (6) Pulmonary hypertension Current Visit: Yes Status: Chronic (7) Accelerated hypertension Current Visit: Yes Status: Acute (8) Prolonged QT interval Current Visit: Yes Status: Acute (9) Cardiomyopathy Current Visit: Yes Status: Chronic Qualifiers: Cardiomyopathy type: ischemic Qualified Code(s): I25.5 - Ischemic cardiomyopathy (10) CAD (coronary artery disease) Current Visit: Yes Status: Chronic Qualifiers: Coronary Disease-Associated Artery/Lesion type: [place] artery [place] vs. transplanted heart: [place] heart Associated angina: without angina Qualified Code(s): I25.10 - Atherosclerotic heart disease of [place] coronary artery without angina pectoris (11) Stented coronary artery Current Visit: Yes Status: Chronic (12) Anemia Current Visit: Yes Status: Acute (13) Elevated alkaline phosphatase level Current Visit: Yes Status: Acute (14) Hyperlipidemia Current Visit: Yes Status: Chronic Qualifiers: Hyperlipidemia type: mixed hyperlipidemia Qualified Code(s): E78.2 - Mixed hyperlipidemia (15) Diabetes mellitus, type 2 Current Visit: Yes Status: Chronic (16) Morbid obesity Current Visit: Yes Status: Chronic (17) Tobacco abuse Current Visit: No Status: Chronic (18) Medical non-compliance Current Visit: Yes Status: Chronic Plan to address problem: Subjective Date of service: 07/25/20 Principal diagnosis: Chest pain. Interval history: Patient is resting comfortably in bed, alert and oriented and feeling better. No new cardiac complaints. Tele reviewed: SR, HR 75. Objective Last Vital Signs Temp 97.2 F L 07/25/20 11:20 Pulse 64 07/25/20 11:20 Resp 20 07/25/20 11:20 BP 112/55 07/25/20 11:20 Pulse Ox 100 07/25/20 11:20 - Physical Examination General: No Apparent Distress HEENT: Positive: PERRL, Normocephaly, Mucus Membranes Moist Neck: Positive: neck supple, trachea midline Cardiac: Positive: Reg Rate and Rhythm, S1/S2 Lungs: Positive: clear to auscultation, Normal Breath Sounds Neuro: Negative: Grossly Intact Abdomen: Negative: Tender Skin: Negative: Rash Musculoskeletal: No Pain Extremities: Absent: edema - Imaging and Cardiology EKG: report reviewed, image reviewed Echo: report reviewed (Echo (07/22/20) Reviewed: EF 50-55%. Moderate LVH. Impaired LV relaxation. Mild TR. 04/2019 showed EF 35-40%, mild LVH, restrictive diastolic filling, moderate pulm HTN RVSP 53mmHg. ) - Telemetry EKG Rhythm: Sinus Rhythm - EKG Sinus rhythms and dysrhythmias: sinus rhythm
== END 2020-07-25 14:19 | disposition home or self-care (01) | DRG 291 ==
LOC: ED 15:53 → 4A 17:56 → OBSVTOIN 07-22 08:55
PROVIDERS: ADMIT Internal Medicine; ATTEND Internal Medicine
DX: I11.0 Hypertensive heart disease with heart failure (principal); J96.21 Acute and chronic respiratory failure with hypoxia; J44.1 Chronic obstructive pulmonary disease with (acute) exacerbation; E66.2 Morbid (severe) obesity with alveolar hypoventilation; J44.0 Chronic obstructive pulmonary disease with (acute) lower respiratory infection; Z68.41 Body mass index [BMI] 40.0-44.9, adult; I24.9 Acute ischemic heart disease, unspecified; I50.23 Acute on chronic systolic (congestive) heart failure; J20.9 Acute bronchitis, unspecified; E78.2 Mixed hyperlipidemia; I25.5 Ischemic cardiomyopathy; I16.0 Hypertensive urgency; I25.10 Atherosclerotic heart disease of native coronary artery without angina pectoris; E11.9 Type 2 diabetes mellitus without complications; I27.20 Pulmonary hypertension, unspecified; I45.81 Long QT syndrome; D64.9 Anemia, unspecified; M19.90 Unspecified osteoarthritis, unspecified site; R74.8 Abnormal levels of other serum enzymes; E87.5 Hyperkalemia; R07.89 Other chest pain; E78.5 Hyperlipidemia, unspecified; F17.200 Nicotine dependence, unspecified, uncomplicated; Z20.822 Contact with and (suspected) exposure to COVID-19; Z88.0 Allergy status to penicillin; I25.2 Old myocardial infarction; Z79.4 Long term (current) use of insulin; Z90.710 Acquired absence of both cervix and uterus; Z90.49 Acquired absence of other specified parts of digestive tract; Z99.81 Dependence on supplemental oxygen; Z71.3 Dietary counseling and surveillance; Z98.61 Coronary angioplasty status; Z91.19 Patient's noncompliance with other medical treatment and regimen
CPT/HCPCS: 36415; 71045; 80048; 80053; 82550; 82553; 82962; 83036; 83880; 84484; 85025; 85027; 85610; 87116; 93005; 93306; 94640; 94760; 96365; 96366; G0378; A9270-GY; J1644; J1815; J1940; J2060; J2405

== ENCOUNTER 2020-09-15 12:08 | Inpatient (IN) | payer BC ==
--- NOTE | 2020-09-15 12:14 | Emergency Department Report ---
Blank Doc - Documentation Documentation: 61-year-old female that presents with bilateral leg swelling, shortness of omar ath and chest tightness. Patient stated was sent by her operations officer afloat. History of congestive heart failure. 1- This initial assessment/diagnostic orders/clinical plan/ treatment(s) is/are subject to change based on pt's health status, clinical progression and re- assessment by fellow clinical providers in the ED. Further treatment and workup at subsequent clinical provers discretion. Patient/guardians urged not to elope from ED as their condition may be serious if not clinically assessed and managed. 2-cardiac work-up
[2020-09-15] MEDS ORDERED: hydrALAZINE 20 MG/1 ML INJ IV ONE (12:32)
--- NOTE | 2020-09-15 12:47 | Emergency Department Report ---
ED Chest Pain HPI - General Chief Complaint: Dyspnea/Respdistress Stated Complaint: CHEST PAIN/SWOLLEN LT ARM Time Seen by Provider: 09/15/20 12:13 Source: patient Mode of arrival: Wheelchair Limitations: No Limitations - History of Present Illness Initial Comments: This is a 60-year-old -[place] female presents to the emergency department from home with complaint of a 2-day history of shortness of breath and some generalized chest pain/pressure. She says it feels like "someone is sitting on my chest." The shortness of breath worsens with any type of exertion or with laying flat. She also admits to bilateral lower extremity leg swelling. She has a history of CHF, lud-pvtmnko-hkstxwphu diabetes, coronary artery disease with previous OK, and COPD who is sometimes O2 dependent at home. Patient follows with Dr. Hernandez and says that she called the office today and was told to come to the emergency department. She says that she has been compliant with her medications including her diuretics. She is a tobacco smoker but denies any illicit drug use or alcohol abuse. - Related Data Home Medications Medication Instructions Recorded Confirmed Last Taken ALBUTEROL NEB's 0.083 inh PO Q6H 10/06/19 10/06/19 Unknown Albuterol INH(or & Nicu Only) 6.7 gm PO Q6H PRN 10/06/19 10/06/19 Unknown AtorvaSTATin 40 mg PO DAILY 10/06/19 10/06/19 Unknown Budesonide/Formoterol Fumarate 10.2 gm PO Q6H 10/06/19 10/07/19 Unknown [Budesonide-Formoterol 160-4.5] Celecoxib [celeBREX] 200 mg PO DAILY 10/06/19 10/06/19 Unknown Clopidogrel [Plavix] 75 mg PO QWEEK 10/06/19 10/06/19 Unknown Dulaglutide [Trulicity] 0.75 mg SQ DAILY 10/06/19 10/07/19 Unknown HumuLIN 70/30 Kwikpen 15 units SQ BID 10/06/19 10/06/19 Unknown Symbicort 160-4.5 Mcg Inhaler 160 1000units Q6H 10/06/19 10/07/19 Unknown cloNIDine [Catapres] 0.2 mg PO BID 10/06/19 10/06/19 Unknown Previous Rx's Medication Instructions Recorded Last Taken Type AtorvaSTATin [Lipitor] 40 mg PO QHS #30 tablet 09/12/19 Unknown Rx cloNIDine [Catapres] 0.2 mg PO BID #60 tablet 09/12/19 Unknown Rx Aspirin EC [Halfprin EC] 81 mg PO QDAY #30 tablet 10/09/19 Unknown Rx Furosemide [Lasix TAB] 40 mg PO QDAY #30 tablet 10/09/19 Unknown Rx Sacubitril/Valsartan [Entresto 97 1 each PO DAILY #30 tablet 10/09/19 Unknown Rx mg-103 mg Tablet] Simvastatin 40 mg PO QHS #30 tablet 10/09/19 Unknown Rx Budesonide [Pulmicort Flexhaler] 90 mcg IH BID #1 aer.pow.ba 02/09/20 Unknown Rx Ferrous Sulfate [Feosol 325 MG tab] 325 mg PO BID #60 tablet 02/09/20 Unknown Rx Furosemide [Lasix TAB] 40 mg PO 0600,1800 #60 tablet 02/09/20 Unknown Rx Metoprolol Xl [Metoprolol 50 mg PO QDAY #30 tablet 02/09/20 Unknown Rx SUCCINATE ER TAB] Prednisone [predniSONE 5 mg (6-Day 5 mg PO .TAPER #1 tab.ds.pk 02/09/20 Unknown Rx Pack, 21 Tabs)] Arformoterol Nebu [Brovana Nebu] 15 mcg IH Q12HRT ml 07/25/20 Unknown Rx Budesonide [Pulmicort Respules] 0.5 mg IH Q12HRT nebu 07/25/20 Unknown Rx Famotidine [Pepcid] 20 mg PO BID tablet 07/25/20 Unknown Rx ISOSORBIDE MONOnitrate [Imdur ER] 60 mg PO QDAY #30 tablet 07/25/20 Unknown Rx Lispro Insulin [HumaLOG] 0 unit SUB-Q ACHS units 07/25/20 Unknown Rx hydrALAZINE [Apresoline TAB] 100 mg PO Q8HR #90 tab 07/25/20 Unknown Rx oxyCODONE /ACETAMINOPHEN [Percocet 1 tab PO Q6H PRN #20 tablet 07/25/20 Unknown Rx 5/325 mg] Allergies Allergy/AdvReac Type Severity Reaction Status Date / Time Penicillins Allergy Severe GO INTO Verified 09/15/20 12:11 SHOCK Heart Score - HEART Score History: Slightly suspicious EKG: Normal Age: 45-65 Risk factors: > 3 risk factors or hx of atherosclerotic disease Troponin: < normal limit HEART Score: 3 - EKG Read Time Time EKG Completed: 12:37 EKG Read Time: 12:37 ED Review of Systems ROS: Stated complaint: CHEST PAIN/SWOLLEN LT ARM Other details as noted in HPI Comment: All other systems reviewed and negative Constitutional: denies: chills, fever Eyes: denies: eye pain, vision change ENT: denies: ear pain, throat pain Respiratory: orthopnea, shortness of breath Cardiovascular: chest pain, edema Gastrointestinal: denies: abdominal pain, vomiting Genitourinary: denies: dysuria, discharge Musculoskeletal: denies: back pain, arthralgia Skin: denies: rash, lesions Neurological: denies: headache, weakness ED Past Medical Hx - Past Medical History Hx Hypertension: Yes Hx Heart Attack/AMI: No Hx Congestive Heart Failure: Yes Hx Diabetes: Yes Hx Deep Vein Thrombosis: Yes (left leg) Hx Pulmonary Embolism: No Hx Liver Disease: No Hx Sickle Cell Disease: No Hx Arthritis: Yes Hx Asthma: No Hx COPD: Yes Hx Tuberculosis: No Hx HIV: No Additional medical history: CAD - Surgical History Hx Coronary Stent: Yes (2004, 2007, 09/2015) Hx Pacemaker: No Hx Internal Defibrillator: No Hx Cholecystectomy: Yes Hx Appendectomy: Yes Additional Surgical History: HYSTERECTOMY. TONSILLECTOMY - Social History Smoking Status: Current Every Day Smoker Substance Use Type: None - Medications Home Medications: Home Medications Medication Instructions Recorded Confirmed Last Taken Type AtorvaSTATin [Lipitor] 40 mg PO QHS #30 tablet 09/12/19 Unknown Rx cloNIDine [Catapres] 0.2 mg PO BID #60 tablet 09/12/19 Unknown Rx ALBUTEROL NEB's 0.083 inh PO Q6H 10/06/19 10/06/19 Unknown History Albuterol INH(or & Nicu Only) 6.7 gm PO Q6H PRN 10/06/19 10/06/19 Unknown History AtorvaSTATin 40 mg PO DAILY 10/06/19 10/06/19 Unknown History Budesonide/Formoterol Fumarate 10.2 gm PO Q6H 10/06/19 10/07/19 Unknown History [Budesonide-Formoterol 160-4.5] Celecoxib [celeBREX] 200 mg PO DAILY 10/06/19 10/06/19 Unknown History Clopidogrel [Plavix] 75 mg PO QWEEK 10/06/19 10/06/19 Unknown History Dulaglutide [Trulicity] 0.75 mg SQ DAILY 10/06/19 10/07/19 Unknown History HumuLIN 70/30 Kwikpen 15 units SQ BID 10/06/19 10/06/19 Unknown History Symbicort 160-4.5 Mcg Inhaler 160 1000units Q6H 10/06/19 10/07/19 Unknown History cloNIDine [Catapres] 0.2 mg PO BID 10/06/19 10/06/19 Unknown History Aspirin EC [Halfprin EC] 81 mg PO QDAY #30 tablet 10/09/19 Unknown Rx Furosemide [Lasix TAB] 40 mg PO QDAY #30 tablet 10/09/19 Unknown Rx Sacubitril/Valsartan [Entresto 97 1 each PO DAILY #30 tablet 10/09/19 Unknown Rx mg-103 mg Tablet] Simvastatin 40 mg PO QHS #30 tablet 10/09/19 Unknown Rx Budesonide [Pulmicort Flexhaler] 90 mcg IH BID #1 aer.pow.ba 02/09/20 Unknown Rx Ferrous Sulfate [Feosol 325 MG tab] 325 mg PO BID #60 tablet 02/09/20 Unknown Rx Furosemide [Lasix TAB] 40 mg PO 0600,1800 #60 tablet 02/09/20 Unknown Rx Metoprolol Xl [Metoprolol 50 mg PO QDAY #30 tablet 02/09/20 Unknown Rx SUCCINATE ER TAB] Prednisone [predniSONE 5 mg (6-Day 5 mg PO .TAPER #1 tab.ds.pk 02/09/20 Unknown Rx Pack, 21 Tabs)] Arformoterol Nebu [Brovana Nebu] 15 mcg IH Q12HRT ml 07/25/20 Unknown Rx Budesonide [Pulmicort Respules] 0.5 mg IH Q12HRT nebu 07/25/20 Unknown Rx Famotidine [Pepcid] 20 mg PO BID tablet 07/25/20 Unknown Rx ISOSORBIDE MONOnitrate [Imdur ER] 60 mg PO QDAY #30 tablet 07/25/20 Unknown Rx Lispro Insulin [HumaLOG] 0 unit SUB-Q ACHS units 07/25/20 Unknown Rx hydrALAZINE [Apresoline TAB] 100 mg PO Q8HR #90 tab 07/25/20 Unknown Rx oxyCODONE /ACETAMINOPHEN [Percocet 1 tab PO Q6H PRN #20 tablet 07/25/20 Unknown Rx 5/325 mg] ED Physical Exam - General Limitations: No Limitations - Other Other exam information: GENERAL: The patient is well-developed well-nourished. HENT: Normocephalic. Atraumatic. Patient has moist mucous membranes. EYES: Extraocular motions are intact. NECK: Supple. Trachea is midline. CHEST/LUNGS: Coarse breath sounds and wheezing heard bilaterally. There is some tachypnea but no accessory muscle use. HEART/CARDIOVASCULAR: Regular. There is mild tachycardia. There is no murmur. ABDOMEN: Abdomen is soft, nontender. Patient has normal bowel sounds. Morbidly obese habitus. SKIN: Skin is warm and dry. 2+ pitting edema to the bilateral lower extremities. NEURO: The patient is awake, alert, and oriented. The patient is cooperative. The patient has no focal neurologic deficits. Normal speech. MUSCULOSKELETAL: There is no tenderness or deformity. ED Course Vital Signs 09/15/20 09/15/20 12:11 12:47 Temperature 98.9 F Pulse Rate 111 H 98 H Respiratory 28 H Rate Blood Pressure 219/119 214/118 O2 Sat by Pulse 94 Oximetry LAMIN score - Lamin Score Age > 65: (0) No Aspirin use within the Past 7 Days: (1) Yes 3 or more CAD Risk Factors: (1) Yes 2 or more Angina events in past 24 hrs: (1) Yes Known CAD with more than 50% Stenosis: (1) Yes Elevated Cardiac Markers: (0) No ST Deviation Greater than 0.5mm: (0) No LAMIN Score: 4 ED Medical Decision Making - Lab Data Result diagrams: 09/15/20 12:40 09/15/20 12:40 Lab Results 09/15/20 09/15/20 09/15/20 Range/Units 12:40 12:40 12:40 WBC 6.7 (4.5-11.0) K/mm3 RBC 5.21 H (3.65-5.03) M/mm3 Hgb 8.8 L (10.1-14.3) gm/dl Hct 31.4 (30.3-42.9) % MCV 60 L (79-97) fl MCH 17 L (28-32) pg MCHC 28 L (30-34) % RDW 25.1 H (13.2-15.2) % Plt Count 288 (140-440) K/mm3 Add Manual Diff Complete Total Counted 100 Seg Neuts % (Manual) 84.0 H (40.0-70.0) % Lymphocytes % (Manual) 11.0 L (13.4-35.0) % Monocytes % (Manual) 4.0 (0.0-7.3) % Eosinophils % (Manual) 1.0 (0.0-4.3) % Nucleated RBC % Not Reportable Seg Neutrophils # Man 5.6 (1.8-7.7) K/mm3 Band Neutrophils # 0.0 K/mm3 Lymphocytes # (Manual) 0.7 L (1.2-5.4) K/mm3 Abs React Lymphs (Man) 0.0 K/mm3 Monocytes # (Manual) 0.3 (0.0-0.8) K/mm3 Eosinophils # (Manual) 0.1 (0.0-0.4) K/mm3 Basophils # (Manual) 0.0 (0.0-0.1) K/mm3 Metamyelocytes # 0.0 K/mm3 Myelocytes # 0.0 K/mm3 Promyelocytes # 0.0 K/mm3 Blast Cells # 0.0 K/mm3 WBC Morphology Not Reportable Hypersegmented Neuts Not Reportable Hyposegmented Neuts Not Reportable Hypogranular Neuts Not Reportable Smudge Cells Not Reportable Toxic Granulation Not Reportable Toxic Vacuolation Not Reportable Dohle Bodies Not Reportable Pelger-Huet Anomaly Not Reportable Juan Rods Not Reportable Platelet Estimate Consistent w auto Clumped Platelets Not Reportable Plt Clumps, EDTA Not Reportable Large Platelets Few Giant Platelets Rare Platelet Satelliting Not Reportable Plt Morphology Comment Not Reportable RBC Morphology Not Reportable Dimorphic RBCs Not Reportable Polychromasia Not Reportable Hypochromasia 3+ Poikilocytosis Not Reportable Anisocytosis 2+ Microcytosis 2+ Macrocytosis Not Reportable Spherocytes Not Reportable Pappenheimer Bodies Not Reportable Sickle Cells Not Reportable Target Cells Not Reportable Tear Drop Cells Not Reportable Ovalocytes Not Reportable Helmet Cells Not Reportable Lozano-Burwell Bodies Not Reportable [place] Rings Not Reportable Joanna Cells Not Reportable Bite Cells Not Reportable Crenated Cell Not Reportable Elliptocytes Not Reportable Acanthocytes (Spur) Not Reportable Rouleaux Not Reportable Hemoglobin C Crystals Not Reportable Schistocytes Not Reportable Malaria parasites Not Reportable Didier Bodies Not Reportable Hem Pathologist Commnt No PT 15.5 H (12.2-14.9) Sec. INR 1.25 H (0.87-1.13) APTT 35.2 (24.2-36.6) Sec. Sodium 135 L (137-145) mmol/L Potassium 3.7 (3.6-5.0) mmol/L Chloride 101.1 (98-107) mmol/L Carbon Dioxide 23 (22-30) mmol/L Anion Gap 15 mmol/L BUN 11 (7-17) mg/dL Creatinine 0.7 (0.6-1.2) mg/dL Estimated GFR > 60 ml/min BUN/Creatinine Ratio 16 % Glucose 118 H (65-100) mg/dL Calcium 8.7 (8.4-10.2) mg/dL Total Bilirubin 0.50 (0.1-1.2) mg/dL AST 7 (5-40) units/L ALT 6 L (7-56) units/L Alkaline Phosphatase 168 H (35-129) units/L Troponin T < 0.010 (0.00-0.029) ng/mL NT-Pro-B Natriuret Pep 5704 H (0-900) pg/mL Total Protein 7.3 (6.3-8.2) g/dL Albumin 3.9 (3.9-5) g/dL Albumin/Globulin Ratio 1.1 % - EKG Data -: EKG Interpreted by Il EKG shows normal: sinus rhythm, axis, intervals, QRS complexes, ST-T waves Rate: normal - EKG Data When compared to previous EKG there are: no significant change Interpretation: normal EKG, unchanged when compared t (07/21/20) - Radiology Data Radiology results: image reviewed interpreted by me: Chest x-ray shows moderate cardiomegaly. There is pulmonary vascular congestion. No obvious pneumonia. No pneumothorax. - Medical Decision Making Patient presents with a 2-day history of shortness of breath and some chest pressure. EKG does not have any morphology consistent with ST elevation myocardial infar ction. Chest x-ray shows cardiomegaly and pulmonary vascular congestion. Patient has both coarse breath sounds and wheezing heard to auscultation. She has pitting edema to the bilateral lower extremities. Patient was given hydralazine for her very elevated blood pressure. She was given some Lasix to start diuresis. The patient was given a DuoNeb breathing treatment and Solu-Medrol secondary to her COPD and/or bronchospasm. First troponin is negative. She has a very elevated BNP, greater than 5000, without any renal insufficiency. Patient will be admitted to the hospital for further evaluation and treatment and was accepted for admission by the hospitalist, Dr. Evans. Critical Care Time: No Critical care attestation.: If time is entered above; I have spent that time in minutes in the direct care of this critically ill patient, excluding procedure time. ED Disposition Clinical Impression: COPD exacerbation, Acute on chronic HFrEF (heart failure with reduced ejection fraction), Obesity hypoventilation syndrome, Hypertensive emergency Disposition: DC-09 OP ADMIT IP TO THIS HOSP Is pt being admited?: Yes Condition: Stable
[2020-09-15 12:58] LABS: Mean Corpuscular HGB Conc 28 % (30-34); Platelet Count 288 K/mm3 (140-440); Red Blood Count 5.21 M/mm3 (3.65-5.03)
--- NOTE | 2020-09-15 13:02 | XRay Report ---
CHEST 1 VIEW INDICATION: SOB. COMPARISON: 07/25/2020 FINDINGS: Support devices: None. Heart: Stable cardiomegaly. Lungs/Pleura: Mild pulmonary venous congestion is evident. There is poor inspiration. No obvious inf iltrate, pleural effusion or pneumothorax. Additional findings: None. IMPRESSION: Mild cardiomegaly and pulmonary venous congestion but no CHF. Signer Name: Manish Nascimento Jr, MD Signed: 09/15/2020 12:58 PM Workstation Name: [id number]
[2020-09-15 13:08] LABS: Hematocrit 31.4 % (30.3-42.9); Hemoglobin 8.8 gm/dl (10.1-14.3); Mean Corpuscular Volume 60 fl (79-97); Red Cell Distribution Width 25.1 % (13.2-15.2)
[2020-09-15] MEDS ORDERED: IPRATROPIUM/ALBUTEROL SULFATE 3 ML AMPUL.NEB IH ONE (13:09)
[2020-09-15 13:12] LABS: INR 1.25 (0.87-1.13); Partial Thromboplastin Time 35.2 Sec. (24.2-36.6)
[2020-09-15 13:17] LABS: Alanine Aminotransferase 6 units/L (7-56); Albumin 3.9 g/dL (3.9-5); Blood Urea Nitrogen 11 mg/dL (7-17); Calcium 8.7 mg/dL (8.4-10.2); Hemolysis Index 4
[2020-09-15 13:22] LABS: BUN/Creatinine Ratio 16
[2020-09-15] MEDS ORDERED: FUROSEMIDE 40 MG/4 ML INJ IV ONE (13:26)
[2020-09-15] MEDS ORDERED: MORPHINE 4 MG/1 ML INJ IV ONE (13:31)
[2020-09-15] MEDS ORDERED: methylPREDNISolone Sod Succinate 125 MG/2 ML INJ IV ONE (13:31)
[2020-09-15 13:49] LABS: Total Cells Counted 100
[2020-09-15 13:50] LABS: Anisocytosis 2+; Giant Platelets Rare; Hypochromasia 3+; Large Platelets Few; Platelet Estimate Consistent w Auto
[2020-09-15] MEDS ORDERED: cloNIDine 0.1 MG TAB PO ONE (15:30)
--- NOTE | 2020-09-15 15:44 | Consultation ---
History of Present Illness Consult date: 09/15/20 Requesting physician: BERNIE THAKUR Consult reason: congestive heart failure History of present illness: This patient is a 60-year-old female with a significant history of coronary artery disease status post PCI in 2019, cardiomyopathy, [id number] diabetic, systolic heart failure, hypertension, hyper lipid, tobacco use, COPD. Patient is followed by Dr Hernandez in our office. Patient presents to [facility] ER with a chief complaint of chest pain and shortness of breath x1 week and bilateral lower extremity edema. Patient states she has gained approximately 12 pounds over the last week. Shortness of breath has continued to worsen in spite of using albuterol MDI approximately 4 times a day. Chest pain she describes as substernal 7 out of 10 and sharp, intermittent, worse with exertion, no palliative factors. Patient also endorses orthopnea. Patient denies any weakness or dizziness abdominal pain nausea vomiting diarrhea, recent illness or known exposures. She is still using tobacco but denies any EtOH or other illicit drugs. Patient also endorses frequent incontinence up to 12 times per night that she attributes to taking diuretics at night. On exam patient has decreased breath sounds on the left with expiratory wheezing. Heart tones suggest systolic murmur. Bilateral lower extremity edema 2+ noted. Of note patient uses CPAP for ADAN at night. [facility] reviewed (2018): PCI with DIANELYS of mid ramus 70%. Echo reviewed (07/22/2020): EF 50 to 55%. Echo reviewed (06/2018): EF 35 to 40%. Past History Past Medical History: other (See HPI) Medications and Allergies Allergies Allergy/AdvReac Type Severity Reaction Status Date / Time Penicillins Allergy Severe GO INTO Verified 09/15/20 12:11 SHOCK Home Medications Medication Instructions Recorded Confirmed Last Taken Type AtorvaSTATin [Lipitor] 40 mg PO QHS #30 tablet 09/12/19 Unknown Rx cloNIDine [Catapres] 0.2 mg PO BID #60 tablet 09/12/19 Unknown Rx ALBUTEROL NEB's 0.083 inh PO Q6H 10/06/19 10/06/19 Unknown History Albuterol INH(or & Nicu Only) 6.7 gm PO Q6H PRN 10/06/19 10/06/19 Unknown History AtorvaSTATin 40 mg PO DAILY 10/06/19 10/06/19 Unknown History Budesonide/Formoterol Fumarate 10.2 gm PO Q6H 10/06/19 10/07/19 Unknown History [Budesonide-Formoterol 160-4.5] Celecoxib [celeBREX] 200 mg PO DAILY 10/06/19 10/06/19 Unknown History Clopidogrel [Plavix] 75 mg PO QWEEK 10/06/19 10/06/19 Unknown History Dulaglutide [Trulicity] 0.75 mg SQ DAILY 10/06/19 10/07/19 Unknown History HumuLIN 70/30 Kwikpen 15 units SQ BID 10/06/19 10/06/19 Unknown History Symbicort 160-4.5 Mcg Inhaler 160 1000units Q6H 10/06/19 10/07/19 Unknown History cloNIDine [Catapres] 0.2 mg PO BID 10/06/19 10/06/19 Unknown History Aspirin EC [Halfprin EC] 81 mg PO QDAY #30 tablet 10/09/19 Unknown Rx Furosemide [Lasix TAB] 40 mg PO QDAY #30 tablet 10/09/19 Unknown Rx Sacubitril/Valsartan [Entresto 97 1 each PO DAILY #30 tablet 10/09/19 Unknown Rx mg-103 mg Tablet] Simvastatin 40 mg PO QHS #30 tablet 10/09/19 Unknown Rx Budesonide [Pulmicort Flexhaler] 90 mcg IH BID #1 aer.pow.ba 02/09/20 Unknown Rx Ferrous Sulfate [Feosol 325 MG tab] 325 mg PO BID #60 tablet 02/09/20 Unknown Rx Furosemide [Lasix TAB] 40 mg PO 0600,1800 #60 tablet 02/09/20 Unknown Rx Metoprolol Xl [Metoprolol 50 mg PO QDAY #30 tablet 02/09/20 Unknown Rx SUCCINATE ER TAB] Prednisone [predniSONE 5 mg (6-Day 5 mg PO .TAPER #1 tab.ds.pk 02/09/20 Unknown Rx Pack, 21 Tabs)] Arformoterol Nebu [Brovana Nebu] 15 mcg IH Q12HRT ml 07/25/20 Unknown Rx Budesonide [Pulmicort Respules] 0.5 mg IH Q12HRT nebu 07/25/20 Unknown Rx Famotidine [Pepcid] 20 mg PO BID tablet 07/25/20 Unknown Rx ISOSORBIDE MONOnitrate [Imdur ER] 60 mg PO QDAY #30 tablet 07/25/20 Unknown Rx Lispro Insulin [HumaLOG] 0 unit SUB-Q ACHS units 07/25/20 Unknown Rx hydrALAZINE [Apresoline TAB] 100 mg PO Q8HR #90 tab 07/25/20 Unknown Rx oxyCODONE /ACETAMINOPHEN [Percocet 1 tab PO Q6H PRN #20 tablet 07/25/20 Unknown Rx 5/325 mg] Active Meds: Active Medications Aspirin (Aspirin Ec 81 Mg Tab) 81 mg PO QDAY ANN MARIE Atorvastatin Calcium (Atorvastatin 40 Mg Tab) 40 mg PO QHS ANN MARIE Furosemide (Furosemide 40 Mg/4 Ml Inj) 40 mg IV 0600,1800 ANN MARIE Hydralazine HCl (Hydralazine 100 Mg Tab) 100 mg PO Q8HR ANN MARIE Potassium Chloride (Potassium Chloride Er 20 Meq Tab) 20 meq PO QDAY ANN MARIE Review of Systems Constitutional: weight gain, no weight loss, no fever, no chills, no sweats Ears, nose, mouth and throat: no ear pain, no ear discharge, no nose pain, no nasal congestion, no nasal discharge Cardiovascular: chest pain, orthopnea, edema, shortness of breath, dyspnea on exertion, high blood pressure, leg edema, no palpitations, no rapid/irregular heart beat, no syncope, no lightheadedness Respiratory: shortness of breath, dyspnea on exertion, no cough, no cough with sputum, no excessive sputum Gastrointestinal: no abdominal pain, no nausea, no vomiting, no diarrhea Genitourinary Female: urinary frequency, mixed incontinence, no pelvic pain, no flank pain Musculoskeletal: no neck stiffness, no neck pain, no shooting arm pain, no arm numbness/tingling, no low back pain, no shooting leg pain Integumentary: no rash, no pruritis, no redness, no sores, no wounds Neurological: no head injury, no paralysis, no weakness, no parathesias, no numbness, no tingling, no seizures, no syncope Psychiatric: no anxiety Endocrine: no cold intolerance, no heat intolerance Hematologic/Lymphatic: no easy bruising, no easy bleeding Allergic/Immunologic: no urticaria Physical Examination Last Vital Signs Temp 98.9 F 09/15/20 12:11 Pulse 98 H 09/15/20 12:47 Resp 28 H 09/15/20 12:11 BP 214/118 09/15/20 12:47 Pulse Ox 94 09/15/20 12:11 General appearance: mild distress HEENT: Positive: PERRL, Normocephaly, Mucus Membranes Moist Neck: Positive: neck supple, trachea midline Cardiac: Positive: Reg Rate and Rhythm, S1/S2, Audible Murmur Lungs: Positive: Decreased Breath Sounds, Wheezes, Oxygen, Other (Breath sounds are decreased on the left with expiratory wheeze) Neuro: Positive: Grossly Intact Abdomen: Positive: Unremarkable, Soft Skin: Negative: Rash, Wound Extremities: Present: upper extr. pulses, lower extr. pulses, +2 Edema Results 09/15/20 12:40 09/15/20 12:40 Cardiac Enzymes 09/15/20 Range/Units 12:40 AST 7 (5-40) units/L Coagulation 09/15/20 Range/Units 12:40 PT 15.5 H (12.2-14.9) Sec. INR 1.25 H (0.87-1.13) APTT 35.2 (24.2-36.6) Sec. CBC 09/15/20 Range/Units 12:40 WBC 6.7 (4.5-11.0) K/mm3 RBC 5.21 H (3.65-5.03) M/mm3 Hgb 8.8 L (10.1-14.3) gm/dl Hct 31.4 (30.3-42.9) % Plt Count 288 (140-440) K/mm3 Comprehensive Metabolic Panel 09/15/20 Range/Units 12:40 Sodium 135 L (137-145) mmol/L Potassium 3.7 (3.6-5.0) mmol/L Chloride 101.1 (98-107) mmol/L Carbon Dioxide 23 (22-30) mmol/L BUN 11 (7-17) mg/dL Creatinine 0.7 (0.6-1.2) mg/dL Glucose 118 H (65-100) mg/dL Calcium 8.7 (8.4-10.2) mg/dL AST 7 (5-40) units/L ALT 6 L (7-56) units/L Alkaline Phosphatase 168 H (35-129) units/L Total Protein 7.3 (6.3-8.2) g/dL Albumin 3.9 (3.9-5) g/dL - Imaging and Cardiology Echo: pending EKG: report reviewed, image reviewed EKG interpretations - Telemetry EKG Rhythm: Sinus Rhythm - EKG Sinus rhythms and dysrhythmias: sinus rhythm Assessment and Plan Telemetry reviewed: Sinus rhythm 79. Chest pain in setting of coronary artery disease status post PCI 12-lead reviewed normal sinus rhythm no ST segment elevation. Troponins are negative x2. Continue to trend CE's. ASA 81 mg p.o. daily We will plan for ischemic eval once patient is medically stabilized. Acute respiratory failure with hypoxia secondary to COPD exacerbation and history of ADAN Patient is currently receiving albuterol nebulized treatment with supplemental oxygen. Management per primary team. No beta-blockers in setting of obstructive pulmonary exacerbation CPAP ordered nightly Hypertensive emergency Optimize antihypertensive regimen. Give clonidine 0.1 mg p.o. once. Resume home medication hydralazine 100 mg 3 times daily Acute on chronic heart failure reduced ejection fraction in setting of cardiomyopathy Repeat echo cardiogram is pending. To prior echo is reviewed with discrepancy of ejection fraction. Volume optimization: Initiate Lasix 40 mg IV twice daily. Initiate Aldactone 25 mg p.o. daily DVT prophylaxis Heparin SQ We will follow This patient was seen in conjunction with Dr Roberto who agrees with this assessment and plan of care. - Patient Problems (1) Acute respiratory failure with hypoxia Current Visit: Yes Status: Acute (2) COPD exacerbation Current Visit: Yes Status: Acute (3) Hypertensive emergency Current Visit: Yes Status: Acute (4) CAD (coronary artery disease) Current Visit: Yes Status: Chronic Qualifiers: Coronary Disease-Associated Artery/Lesion type: [place] artery [place] vs. transplanted heart: [place] heart Associated angina: with stable angina Qualified Code(s): I25.118 - Atherosclerotic heart disease of [place] coronary artery with other forms of angina pectoris (5) Stented coronary artery Current Visit: Yes Status: Chronic (6) Acute on chronic HFrEF (heart failure with reduced ejection fraction) Current Visit: Yes Status: Acute (7) DVT prophylaxis Current Visit: No Status: Acute (8) Anemia Current Visit: Yes Status: Acute (9) Cardiomyopathy Current Visit: No Status: Chronic Qualifiers: Cardiomyopathy type: ischemic Qualified Code(s): I25.5 - Ischemic cardiomyopathy (10) Diabetes mellitus, type 2 Current Visit: Yes Status: Chronic (11) HTN (hypertension) Current Visit: Yes Status: Chronic Qualifiers: Hypertension type: essential hypertension Qualified Code(s): I10 - Essential (primary) hypertension (12) Hyperlipidemia Current Visit: Yes Status: Chronic Qualifiers: Hyperlipidemia type: mixed hyperlipidemia Qualified Code(s): E78.2 - Mixed hyperlipidemia (13) ADAN (obstructive sleep apnea) Current Visit: Yes Status: Chronic (14) Tobacco use Current Visit: Yes Status: Chronic
[2020-09-15] MEDS: hydrALAZINE 100 MG TAB PO SCH ×2 (15:48→22:56)
[2020-09-15] MEDS ORDERED: POTASSIUM CHLORIDE ER 20 MEQ TAB PO SCH (16:00)
[2020-09-15] MEDS ORDERED: FUROSEMIDE 40 MG/4 ML INJ IV SCH (18:00)
--- NOTE | 2020-09-15 18:01 | Electrocardiograph Report ---
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
[2020-09-15] MEDS: SPIRONOLACTONE 25 MG TAB PO SCH (18:29)
[2020-09-15] MEDS: HEPARIN 5,000 UNIT/1 ML VIAL SUB-Q SCH (22:56)
[2020-09-15] MEDS ORDERED: ACETAMINOPHEN 325 MG TAB PO PRN (23:11)
[2020-09-15] MEDS ORDERED: METOCLOPRAMIDE 10 MG/2 ML INJ IV PRN (23:11)
[2020-09-15] MEDS ORDERED: NON-FORMULARY EACH (Budesonide/Formoterol Fumarate [Budesonide-Formoterol 160-4.5] 10.2 GM PO SCH (23:15)
[2020-09-15] MEDS ORDERED: HUMULIN SQ SCH (23:15)
[2020-09-15] MEDS ORDERED: CLOPIDOGREL 75 MG TAB PO SCH (23:45)
[2020-09-16] MEDS: oxyCODONE /ACETAMINOPHEN 5-325MG TAB PO PRN (00:26)
[2020-09-16] MEDS: FAMOTIDINE 20 MG TAB PO SCH ×3 (00:26→21:42)
[2020-09-16] MEDS: FERROUS SULFATE 325 MG TAB PO SCH ×3 (00:26→21:41)
[2020-09-16] MEDS: INSULIN LISPRO 100 UNIT/ML SUB-Q SCH ×5 (00:26→22:12)
[2020-09-16 00:58] LABS: Bilirubin,Urine NEG (Negative); Blood,Urine NEG (Negative); Color,Urine Yellow (Yellow); Protein,Urine <15 mg/dL mg/dL (Negative); Urobilinogen,Urine < 2.0 mg/dL (<2.0)
[2020-09-16 05:22] LABS: Mean Corpuscular HGB Conc 29 % (30-34); Platelet Count 290 K/mm3 (140-440); Red Blood Count 5.47 M/mm3 (3.65-5.03)
[2020-09-16 05:23] LABS: Basophils # (Auto) 0.1 K/mm3 (0.0-0.1); Basophils % (Auto) 1.2 % (0.0-1.8); Hematocrit 33.1 % (30.3-42.9); Hemoglobin 9.6 gm/dl (10.1-14.3); Lymphocytes # (Auto) 0.5 K/mm3 (1.2-5.4); Lymphocytes % (Auto) 6.5 % (13.4-35.0); Mean Corpuscular Volume 61 fl (79-97); Monocytes # (Auto) 0.2 K/mm3 (0.0-0.8); Monocytes % (Auto) 2.9 % (0.0-7.3); Red Cell Distribution Width 25.2 % (13.2-15.2)
[2020-09-16 05:28] LABS: Alanine Aminotransferase 5 units/L (7-56); Albumin 3.8 g/dL (3.9-5); BUN/Creatinine Ratio 24; Blood Urea Nitrogen 19 mg/dL (7-17); Calcium 9.1 mg/dL (8.4-10.2); Hemolysis Index 4
[2020-09-16] MEDS ORDERED: IPRATROPIUM/ALBUTEROL SULFATE 3 ML AMPUL.NEB IH PRN (06:33)
[2020-09-16] MEDS ORDERED: ALBUTEROL 2.5 MG/3 ML NEBU IH PRN (06:40)
--- NOTE | 2020-09-16 06:42 | History and Physical Report ---
History of Present Illness Date of examination: 09/15/20 Date of admission: 09/15/20 13:38 Chief complaint: Shortness of breath for 2 days History of present illness: 61-year-old female with multiple medical problems including insulin-dependent diabetes, hypertension, hyperlipidemia and COPD comes in for increasing shortness of breath of 2 days duration associated with wheezing and orthopnea. No fever or chills. Patient has intermittent oxygen at home. Patient called [facility] cardiology office and was asked to come to the emergency room for evaluation. Chest pain is intermittent. Her main complaint is shortness of breath and wheezing and orthopnea. Patient has class IV NYHA symptoms. Patient states she is compliant with her medications. Heart Score - HEART Score History: Slightly suspicious EKG: Normal Age: 45-65 Risk factors: > 3 risk factors or hx of atherosclerotic disease Troponin: < normal limit HEART Score: 3 - EKG Read Time Time EKG Completed: 12:37 EKG Read Time: 12:37 - Past Medical History --Hypertension: Yes --Congestive Heart Failure: Yes --Diabetes: Yes --Deep Vein Thrombosis: Yes (left leg) --Arthritis: Yes --COPD: Yes Additional medical history: CAD - Surgical History --Coronary Stent: Yes (2004, 2007, 09/2015) --Cholecystectomy: Yes --Appendectomy: Yes Additional Surgical History: HYSTERECTOMY. TONSILLECTOMY - Social History Smoking Status: Current Every Day Smoker Substance Use Type: None Review of Systems ROS: Stated complaint: CHEST PAIN/SWOLLEN LT ARM Other details as noted in HPI Comment: All other systems reviewed and negative Constitutional: denies: chills, fever Eyes: denies: eye pain, vision change ENT: denies: ear pain, throat pain Respiratory: orthopnea, shortness of breath Cardiovascular: chest pain, edema Gastrointestinal: denies: abdominal pain, vomiting Genitourinary: denies: dysuria, discharge Musculoskeletal: denies: back pain, arthralgia Skin: denies: rash, lesions Neurological: denies: headache, weakness Past History Past Medical History: other (See HPI) Medications and Allergies Allergies Allergy/AdvReac Type Severity Reaction Status Date / Time Penicillins Allergy Severe GO INTO Verified 09/15/20 12:11 SHOCK Home Medications Medication Instructions Recorded Confirmed Last Taken Type AtorvaSTATin [Lipitor] 40 mg PO QHS #30 tablet 09/12/19 09/15/20 09/15/20 Rx cloNIDine [Catapres] 0.2 mg PO BID #60 tablet 09/12/19 09/15/20 09/15/20 Rx ALBUTEROL NEB's 0.083 inh PO Q6H 10/06/19 09/15/20 Unknown History Albuterol INH(or & Nicu Only) 6.7 gm PO Q6H PRN 10/06/19 09/15/20 Unknown History AtorvaSTATin 40 mg PO DAILY 10/06/19 09/15/20 09/15/20 History Budesonide/Formoterol Fumarate 10.2 gm PO Q6H 10/06/19 09/15/20 Unknown History [Budesonide-Formoterol 160-4.5] Celecoxib [celeBREX] 200 mg PO DAILY 10/06/19 09/15/20 09/15/20 History Clopidogrel [Plavix] 75 mg PO QWEEK 10/06/19 09/15/20 Unknown History Dulaglutide [Trulicity] 0.75 mg SQ DAILY 10/06/19 09/15/20 Unknown History HumuLIN 70/30 Kwikpen 15 units SQ BID 10/06/19 09/15/20 09/15/20 History Symbicort 160-4.5 Mcg Inhaler 160 1000units Q6H 10/06/19 09/15/20 Unknown History cloNIDine [Catapres] 0.2 mg PO BID 10/06/19 09/15/20 09/15/20 History Aspirin EC [Halfprin EC] 81 mg PO QDAY #30 tablet 10/09/19 09/15/20 09/15/20 Rx Furosemide [Lasix TAB] 40 mg PO QDAY #30 tablet 10/09/19 09/15/20 Unknown Rx Sacubitril/Valsartan [Entresto 97 1 each PO DAILY #30 tablet 10/09/19 09/15/20 09/15/20 Rx mg-103 mg Tablet] Simvastatin 40 mg PO QHS #30 tablet 10/09/19 09/15/20 09/15/20 Rx Budesonide [Pulmicort Flexhaler] 90 mcg IH BID #1 aer.pow.ba 02/09/20 09/15/20 Unknown Rx Ferrous Sulfate [Feosol 325 MG tab] 325 mg PO BID #60 tablet 02/09/20 09/15/20 09/15/20 Rx Furosemide [Lasix TAB] 40 mg PO 0600,1800 #60 tablet 02/09/20 09/15/20 09/15/20 Rx Metoprolol Xl [Metoprolol 50 mg PO QDAY #30 tablet 02/09/20 09/15/20 Unknown Rx SUCCINATE ER TAB] Prednisone [predniSONE 5 mg (6-Day 5 mg PO .TAPER #1 tab.ds.pk 02/09/20 09/15/20 Unknown Rx Pack, 21 Tabs)] Arformoterol Nebu [Brovana Nebu] 15 mcg IH Q12HRT ml 07/25/20 09/15/20 09/15/20 Rx Budesonide [Pulmicort Respules] 0.5 mg IH Q12HRT nebu 07/25/20 09/15/20 Unknown Rx Famotidine [Pepcid] 20 mg PO BID tablet 07/25/20 09/15/20 09/15/20 Rx ISOSORBIDE MONOnitrate [Imdur ER] 60 mg PO QDAY #30 tablet 07/25/20 09/15/20 Unknown Rx Lispro Insulin [HumaLOG] 0 unit SUB-Q ACHS units 07/25/20 09/15/20 09/15/20 Rx hydrALAZINE [Apresoline TAB] 100 mg PO Q8HR #90 tab 07/25/20 09/15/20 09/15/20 Rx oxyCODONE /ACETAMINOPHEN [Percocet 1 tab PO Q6H PRN #20 tablet 07/25/20 09/15/20 09/15/20 Rx 5/325 mg] Active Meds: Active Medications Acetaminophen (Acetaminophen 325 Mg Tab) 650 mg PO Q4H PRN PRN Reason: Pain MILD(1-3)/Fever >100.5/ALAS Albuterol/Ipratropium (Ipratropium/Albuterol Sulfate 3 Ml Ampul.Neb) 1 ampul IH Q3H PRN PRN Reason: Wheezing Albuterol/Ipratropium (Ipratropium/Albuterol Sulfate 3 Ml Ampul.Neb) 1 ampul IH QIDRT ANN MARIE Arformoterol Tartrate (Arformoterol 15 Mcg/2 Ml Nebu) 15 mcg IH Q12HRT ANN MARIE Aspirin (Aspirin Ec 81 Mg Tab) 81 mg PO QDAY REPLACED BY [facility] Atorvastatin Calcium (Atorvastatin 40 Mg Tab) 40 mg PO QHS REPLACED BY [facility] Last Admin: 09/15/20 22:56 Dose: 40 mg Documented by: Budesonide (Budesonide 0.5 Mg/2 Ml Nebu) 1 mg IH Q12HRT REPLACED BY [facility] Celecoxib (Celecoxib 200 Mg Cap) 200 mg PO DAILY REPLACED BY [facility] Clonidine HCl (Clonidine 0.2 Mg Tab) 0.2 mg PO BID REPLACED BY [facility] Clopidogrel Bisulfate (Clopidogrel 75 Mg Tab) 75 mg PO QDAY REPLACED BY [facility] Famotidine (Famotidine 20 Mg Tab) 20 mg PO BID REPLACED BY [facility] Last Admin: 09/16/20 00:26 Dose: 20 mg Documented by: Ferrous Sulfate (Ferrous Sulfate 325 Mg Tab) 325 mg PO BID REPLACED BY [facility] Last Admin: 09/16/20 00:26 Dose: 325 mg Documented by: Furosemide (Furosemide 40 Mg Tab) 40 mg PO 0600,1800 REPLACED BY [facility] Heparin Sodium (Porcine) (Heparin 5,000 Unit/1 Ml Vial) 5,000 unit SUB-Q Q12HR REPLACED BY [facility] Last Admin: 09/15/20 22:56 Dose: 5,000 unit Documented by: Hydralazine HCl (Hydralazine 100 Mg Tab) 100 mg PO Q8HR REPLACED BY [facility] Last Admin: 09/15/20 22:56 Dose: 100 mg Documented by: Hydromorphone HCl (Hydromorphone 1 Mg/1 Ml Inj) 0.5 mg IV Q3H PRN PRN Reason: Pain , Severe (7-10) Levofloxacin/Dextrose (Levaquin 750mg/150ml) 750 mg in 150 mls @ 100 mls/hr IV Q24HR REPLACED BY [facility]; Protocol Insulin Human Isoph/Insulin Regular (Insulin Nph/Regular 70/30 Inj) 20 unit SUB-Q BIDDIAB REPLACED BY [facility] Insulin Human Lispro (Insulin Lispro 100 Unit/Ml) 0 unit SUB-Q ACHS REPLACED BY [facility]; Protocol Last Admin: 09/16/20 00:26 Dose: 4 unit Documented by: Isosorbide Mononitrate (Isosorbide Mononitrate Er 60 Mg Tab) 60 mg PO QDAY REPLACED BY [facility] Methylprednisolone Sodium Succinate (Methylprednisolone Sod Succinate 125 Mg/2 Ml Inj) 60 mg IV Q8HR REPLACED BY [facility] Metoclopramide HCl (Metoclopramide 10 Mg/2 Ml Inj) 10 mg IV Q6H PRN PRN Reason: Nausea And Vomiting Metoprolol Succinate (Metoprolol Succinate Xl 50 Mg Tab) 50 mg PO QDAY REPLACED BY [facility] Ondansetron HCl (Ondansetron 4 Mg/2 Ml Inj) 4 mg IV Q3H PRN PRN Reason: Nausea And Vomiting Oxycodone/Acetaminophen (Oxycodone /Acetaminophen 5-325mg Tab) 1 tab PO Q6H PRN PRN Reason: Pain, Moderate (4-6) Last Admin: 09/16/20 00:26 Dose: 1 tab Documented by: Potassium Chloride (Potassium Chloride Er 20 Meq Tab) 20 meq PO QDAY REPLACED BY [facility] Last Admin: 09/15/20 15:48 Dose: 20 meq Documented by: Potassium Chloride (Potassium Chloride Er 20 Meq Tab) 20 meq PO Q12H REPLACED BY [facility] Sodium Chloride (Sodium Chloride 0.9% 10 Ml Flush Syringe) 10 ml IV BID ANN MARIE Sodium Chloride (Sodium Chloride 0.9% 10 Ml Flush Syringe) 10 ml IV PRN PRN PRN Reason: LINE FLUSH Spironolactone (Spironolactone 25 Mg Tab) 25 mg PO QDAY REPLACED BY [facility] Last Admin: 09/15/20 18:29 Dose: 25 mg Documented by: Exam - Constitutional Vitals: Temp Pulse Resp BP Pulse Ox 98.0 F 89 18 184/105 94 09/16/20 04:53 09/16/20 04:53 09/16/20 04:53 09/16/20 04:53 09/16/20 04:53 General appearance: Present: mild distress, well-nourished - EENT Eyes: Present: PERRL ENT: hearing intact, clear oral mucosa - Neck Neck: Present: supple, normal ROM - Respiratory Respiratory effort: normal Respiratory: bilateral: CTA - Cardiovascular Heart rate: 78 Rhythm: regular Heart Sounds: Present: S1 & S2. Absent: rub, click - Extremities Extremities: no ischemia, pulses intact, pulses symmetrical, No edema Peripheral Pulses: within normal limits - Abdominal General gastrointestinal: Present: soft, non-tender, non-distended, normal bowel sounds Female genitourinary: Present: normal - Rectal Rectal Exam: deferred - Integumentary Integumentary: Present: clear, warm, dry - Musculoskeletal Musculoskeletal: gait normal, strength equal bilaterally - Psychiatric Psychiatric: appropriate mood/affect, intact judgment & insight - Neurologic Neurologic: CNII-XII intact, moves all extremities - Allied Health Allied health notes reviewed: nursing, case management HEART Score - HEART Score EKG: Normal Age: 45-65 Risk factors: > 3 risk factors or hx of atherosclerotic disease Troponin: Troponin T < 0.010 ng/mL (0.00-0.029) 09/16/20 04:51 Troponin: < normal limit Results - Labs CBC & Chem 7: 09/16/20 04:51 09/16/20 04:51 Labs: Laboratory Last Values WBC 7.7 K/mm3 (4.5-11.0) 09/16/20 04:51 RBC 5.47 M/mm3 (3.65-5.03) H 09/16/20 04:51 Hgb 9.6 gm/dl (10.1-14.3) L 09/16/20 04:51 Hct 33.1 % (30.3-42.9) 09/16/20 04:51 MCV 61 fl (79-97) L 09/16/20 04:51 MCH 18 pg (28-32) L 09/16/20 04:51 MCHC 29 % (30-34) L 09/16/20 04:51 RDW 25.2 % (13.2-15.2) H 09/16/20 04:51 Plt Count 290 K/mm3 (140-440) 09/16/20 04:51 Lymph % (Auto) 6.5 % (13.4-35.0) L 09/16/20 04:51 Stewart % (Auto) 2.9 % (0.0-7.3) 09/16/20 04:51 Eos % (Auto) 0.0 % (0.0-4.3) 09/16/20 04:51 Baso % (Auto) 1.2 % (0.0-1.8) 09/16/20 04:51 Lymph # (Auto) 0.5 K/mm3 (1.2-5.4) L 09/16/20 04:51 Stewart # (Auto) 0.2 K/mm3 (0.0-0.8) 09/16/20 04:51 Eos # (Auto) 0.0 K/mm3 (0.0-0.4) 09/16/20 04:51 Baso # (Auto) 0.1 K/mm3 (0.0-0.1) 09/16/20 04:51 Add Manual Diff Complete 09/15/20 12:40 Total Counted 100 09/15/20 12:40 Seg Neutrophils % 88.4 % (40.0-70.0) H 09/16/20 04:51 Seg Neuts % (Manual) 84.0 % (40.0-70.0) H 09/15/20 12:40 Lymphocytes % (Manual) 11.0 % (13.4-35.0) L 09/15/20 12:40 Monocytes % (Manual) 4.0 % (0.0-7.3) 09/15/20 12:40 Eosinophils % (Manual) 1.0 % (0.0-4.3) 09/15/20 12:40 Nucleated RBC % Not Reportable 09/15/20 12:40 Seg Neutrophils # 6.9 K/mm3 (1.8-7.7) 09/16/20 04:51 Seg Neutrophils # Man 5.6 K/mm3 (1.8-7.7) 09/15/20 12:40 Band Neutrophils # 0.0 K/mm3 09/15/20 12:40 Lymphocytes # (Manual) 0.7 K/mm3 (1.2-5.4) L 09/15/20 12:40 Abs React Lymphs (Man) 0.0 K/mm3 09/15/20 12:40 Monocytes # (Manual) 0.3 K/mm3 (0.0-0.8) 09/15/20 12:40 Eosinophils # (Manual) 0.1 K/mm3 (0.0-0.4) 09/15/20 12:40 Basophils # (Manual) 0.0 K/mm3 (0.0-0.1) 09/15/20 12:40 Metamyelocytes # 0.0 K/mm3 09/15/20 12:40 Myelocytes # 0.0 K/mm3 09/15/20 12:40 Promyelocytes # 0.0 K/mm3 09/15/20 12:40 Blast Cells # 0.0 K/mm3 09/15/20 12:40 WBC Morphology Not Reportable 09/15/20 12:40 Hypersegmented Neuts Not Reportable 09/15/20 12:40 Hyposegmented Neuts Not Reportable 09/15/20 12:40 Hypogranular Neuts Not Reportable 09/15/20 12:40 Smudge Cells Not Reportable 09/15/20 12:40 Toxic Granulation Not Reportable 09/15/20 12:40 Toxic Vacuolation Not Reportable 09/15/20 12:40 Dohle Bodies Not Reportable 09/15/20 12:40 Pelger-Huet Anomaly Not Reportable 09/15/20 12:40 Juan Rods Not Reportable 09/15/20 12:40 Platelet Estimate Consistent w auto 09/15/20 12:40 Clumped Platelets Not Reportable 09/15/20 12:40 Plt Clumps, EDTA Not Reportable 09/15/20 12:40 Large Platelets Few 09/15/20 12:40 Giant Platelets Rare 09/15/20 12:40 Platelet Satelliting Not Reportable 09/15/20 12:40 Plt Morphology Comment Not Reportable 09/15/20 12:40 RBC Morphology Not Reportable 09/15/20 12:40 Dimorphic RBCs Not Reportable 09/15/20 12:40 Polychromasia Not Reportable 09/15/20 12:40 Hypochromasia 3+ 09/15/20 12:40 Poikilocytosis Not Reportable 09/15/20 12:40 Anisocytosis 2+ 09/15/20 12:40 Microcytosis 2+ 09/15/20 12:40 Macrocytosis Not Reportable 09/15/20 12:40 Spherocytes Not Reportable 09/15/20 12:40 Pappenheimer Bodies Not Reportable 09/15/20 12:40 Sickle Cells Not Reportable 09/15/20 12:40 Target Cells Not Reportable 09/15/20 12:40 Tear Drop Cells Not Reportable 09/15/20 12:40 Ovalocytes Not Reportable 09/15/20 12:40 Helmet Cells Not Reportable 09/15/20 12:40 Lozano-Lander Bodies Not Reportable 09/15/20 12:40 [place] Rings Not Reportable 09/15/20 12:40 Bayard Cells Not Reportable 09/15/20 12:40 Bite Cells Not Reportable 09/15/20 12:40 Crenated Cell Not Reportable 09/15/20 12:40 Elliptocytes Not Reportable 09/15/20 12:40 Acanthocytes (Spur) Not Reportable 09/15/20 12:40 Rouleaux Not Reportable 09/15/20 12:40 Hemoglobin C Crystals Not Reportable 09/15/20 12:40 Schistocytes Not Reportable 09/15/20 12:40 Malaria parasites Not Reportable 09/15/20 12:40 Didier Bodies Not Reportable 09/15/20 12:40 Hem Pathologist Commnt No 09/15/20 12:40 PT 15.5 Sec. (12.2-14.9) H 09/15/20 12:40 INR 1.25 (0.87-1.13) H 09/15/20 12:40 APTT 35.2 Sec. (24.2-36.6) 09/15/20 12:40 Sodium 133 mmol/L (137-145) L 09/16/20 04:51 Potassium 4.4 mmol/L (3.6-5.0) 09/16/20 04:51 Chloride 97.7 mmol/L (98-107) L 09/16/20 04:51 Carbon Dioxide 23 mmol/L (22-30) 09/16/20 04:51 Anion Gap 17 mmol/L 09/16/20 04:51 BUN 19 mg/dL (7-17) H 09/16/20 04:51 Creatinine 0.8 mg/dL (0.6-1.2) 09/16/20 04:51 Estimated GFR > 60 ml/min 09/16/20 04:51 BUN/Creatinine Ratio 24 % 09/16/20 04:51 Glucose 131 mg/dL (65-100) H 09/16/20 04:51 POC Glucose 218 mg/dL (70-105) H 09/15/20 21:02 Hemoglobin A1c 5.7 % (4-6) 09/16/20 04:51 Calcium 9.1 mg/dL (8.4-10.2) 09/16/20 04:51 Magnesium 2.00 mg/dL (1.7-2.3) 09/16/20 04:51 Total Bilirubin 0.40 mg/dL (0.1-1.2) 09/16/20 04:51 AST 8 units/L (5-40) 09/16/20 04:51 ALT 5 units/L (7-56) L 09/16/20 04:51 Alkaline Phosphatase 173 units/L (35-129) H 09/16/20 04:51 Troponin T < 0.010 ng/mL (0.00-0.029) 09/16/20 04:51 NT-Pro-B Natriuret Pep 5704 pg/mL (0-900) H 09/15/20 12:40 Total Protein 7.8 g/dL (6.3-8.2) 09/16/20 04:51 Albumin 3.8 g/dL (3.9-5) L 09/16/20 04:51 Albumin/Globulin Ratio 1.0 % 09/16/20 04:51 Urine Color Yellow (Yellow) 09/16/20 00:35 Urine Turbidity Clear (Clear) 09/16/20 00:35 Urine pH 6.0 (5.0-7.0) 09/16/20 00:35 Ur Specific [place] 1.006 (1.003-1.030) 09/16/20 00:35 Urine Protein <15 mg/dl mg/dL (Negative) 09/16/20 00:35 Urine Glucose (UA) Neg mg/dL (Negative) 09/16/20 00:35 Urine Ketones Neg mg/dL (Negative) 09/16/20 00:35 Urine Blood Neg (Negative) 09/16/20 00:35 Urine Nitrite Pos (Negative) 09/16/20 00:35 Urine Bilirubin Neg (Negative) 09/16/20 00:35 Urine Urobilinogen < 2.0 mg/dL (<2.0) 09/16/20 00:35 Ur Leukocyte Esterase Neg (Negative) 09/16/20 00:35 Urine WBC (Auto) 0.0 /HPF (0.0-6.0) 09/16/20 00:35 Urine RBC (Auto) 0.0 /HPF (0.0-6.0) 09/16/20 00:35 U Epithel Cells (Auto) 1.0 /HPF (0-13.0) 09/16/20 00:35 Short CBC 09/15/20 09/16/20 Range/Units 12:40 04:51 WBC 6.7 7.7 (4.5-11.0) K/mm3 Hgb 8.8 L 9.6 L (10.1-14.3) gm/dl Hct 31.4 33.1 (30.3-42.9) % Plt Count 288 290 (140-440) K/mm3 BMP 09/15/20 09/16/20 12:40 04:51 Sodium 135 L 133 L Potassium 3.7 4.4 Chloride 101.1 97.7 L Carbon Dioxide 23 23 BUN 11 19 H Creatinine 0.7 0.8 Glucose 118 H 131 H Calcium 8.7 9.1 Cardiac Enzymes 09/15/20 09/16/20 Range/Units 12:40 04:51 Troponin T < 0.010 < 0.010 (0.00-0.029) ng/mL Liver Function 09/15/20 09/16/20 Range/Units 12:40 04:51 Total Bilirubin 0.50 0.40 (0.1-1.2) mg/dL AST 7 8 (5-40) units/L ALT 6 L 5 L (7-56) units/L Alkaline Phosphatase 168 H 173 H (35-129) units/L Albumin 3.9 3.8 L (3.9-5) g/dL Urine 09/16/20 Range/Units 00:35 Urine Color Yellow (Yellow) Urine pH 6.0 (5.0-7.0) Ur Specific [place] 1.006 (1.003-1.030) Urine Protein <15 mg/dl (Negative) mg/dL Urine Glucose (UA) Neg (Negative) mg/dL - Imaging and Cardiology EKG: report reviewed (Sinus rhythm no acute ST-T wave changes) Imaging and Cardiology: Chest x-ray Mild cardiomegaly and pulmonary venous congestion but no CHF Assessment and Plan Advance Directives: Yes (Full code) VTE prophylaxis?: Chemical Plan of care discussed with patient/family: Yes - Patient Problems (1) Acute on chronic HFrEF (heart failure with reduced ejection fraction) Current Visit: Yes Status: Acute Plan to address problem: Patient initiated on IV Lasix every 12 hours and potassium Echocardiogram for ejection fraction Strict intake and output Daily weights Cardiology consult requested BNP is in the mid 5000 (2) COPD exacerbation Current Visit: Yes Status: Acute Plan to address problem: Patient initiated on duo nebs and IV Solu-Medrol and IV Levaquin (3) CAD (coronary artery disease) Current Visit: Yes Status: Chronic Qualifiers: Coronary Disease-Associated Artery/Lesion type: [place] artery [place] vs. transplanted heart: [place] heart Associated angina: with stable angina Qualified Code(s): I25.118 - Atherosclerotic heart disease of [place] coronary artery with other forms of angina pectoris (4) HTN (hypertension) Current Visit: Yes Status: Chronic Qualifiers: Hypertension type: essential hypertension Qualified Code(s): I10 - Essential (primary) hypertension Plan to address problem: Continue antihypertensives and adjust medications (5) Hyperlipidemia Current Visit: Yes Status: Chronic Qualifiers: Hyperlipidemia type: mixed hyperlipidemia Qualified Code(s): E78.2 - Mixed hyperlipidemia Plan to address problem: Continue statins (6) ADAN (obstructive sleep apnea) Current Visit: Yes Status: Chronic Plan to address problem: CPAP as necessary (7) IDDM (insulin dependent diabetes mellitus) Current Visit: Yes Status: Chronic Plan to address problem: Continue home insulin and Accu-Cheks AC at bedtime Hemoglobin A1c to be checked coverage as per moderate dose sliding scale protocol (8) DVT prophylaxis Current Visit: Yes Status: Acute Plan to address problem: On heparin GI prophylaxis
[2020-09-16] MEDS: hydrALAZINE 100 MG TAB PO SCH ×3 (06:45→21:42)
[2020-09-16] MEDS: FUROSEMIDE 40 MG TAB PO SCH ×2 (06:45→18:56)
[2020-09-16] MEDS ORDERED: hydrALAZINE 20 MG/1 ML INJ IV PRN (06:48)
[2020-09-16] MEDS ORDERED: REGADENOSON 0.4 MG/5 ML INJ IV ONE (07:29)
[2020-09-16] MEDS ORDERED: ARFORMOTEROL 15 MCG/2 ML NEBU IH SCH (08:00)
[2020-09-16] MEDS ORDERED: BUDESONIDE 0.5 MG/2 ML NEBU IH SCH (08:00)
[2020-09-16] MEDS: INSULIN NPH/REGULAR 70/30 INJ SUB-Q SCH ×2 (08:00→18:55)
[2020-09-16] MEDS: methylPREDNISolone Sod Succinate 125 MG/2 ML INJ IV SCH ×3 (08:16→21:43)
[2020-09-16] MEDS: IPRATROPIUM/ALBUTEROL SULFATE 3 ML AMPUL.NEB IH SCH ×4 (08:31→21:24)
[2020-09-16] MEDS ORDERED: NON-FORMULARY EACH (Sacubitril/Valsartan [Entresto 97 Mg-103 Mg Tablet] 1 EACH Tablet) PO SCH (10:00)
[2020-09-16] MEDS ORDERED: FAMOTIDINE 20 MG TAB PO SCH (10:00)
[2020-09-16] MEDS ORDERED: METOPROLOL SUCCINATE XL 50 MG TAB PO SCH (10:00)
[2020-09-16] MEDS: ARFORMOTEROL 15 MCG/2 ML NEBU IH SCH ×2 (10:34→21:25)
[2020-09-16] MEDS: cloNIDine 0.2 MG TAB PO SCH ×2 (11:25→21:42)
[2020-09-16] MEDS: POTASSIUM CHLORIDE ER 20 MEQ TAB PO SCH ×2 (11:25→21:42)
[2020-09-16] MEDS: amLODIPine 5 MG TAB PO SCH (11:26)
[2020-09-16] MEDS: ASPIRIN EC 81 MG TAB PO SCH (11:26)
[2020-09-16] MEDS: CLOPIDOGREL 75 MG TAB PO SCH (11:26)
[2020-09-16] MEDS: SPIRONOLACTONE 25 MG TAB PO SCH (11:26)
[2020-09-16] MEDS: SACUBITRIL/VALSARTAN 49-51 MG TAB PO SCH (11:27)
[2020-09-16] MEDS: CELECOXIB 200 MG CAP PO SCH (11:27)
[2020-09-16] MEDS: HEPARIN 5,000 UNIT/1 ML VIAL SUB-Q SCH ×2 (11:28→21:42)
[2020-09-16] MEDS ORDERED: LOSARTAN 50 MG TAB PO SCH (12:00)
[2020-09-16] MEDS: BUDESONIDE 0.5 MG/2 ML NEBU IH SCH ×2 (12:16→21:24)
--- NOTE | 2020-09-16 14:43 | Progress Note ---
Subjective Date of service: 09/16/20 Interval history: History of present illness: This patient is a 60-year-old female with a significant history of coronary artery disease status post PCI in 2019, cardiomyopathy, pwy-fcbjmva-foylxwevd diabetic, systolic heart failure, hypertension, hyper lipid, tobacco use, COPD. Patient presents to ER with a chief complaint of chest pain and shortness of breath x1 week and bilateral lower extremity edema. Patient states she has gained approximately 12 pounds over the last week. Shortness of breath has continued to worsen in spite of using albuterol MDI approximately 4 times a day. Chest pain she describes as substernal 7 out of 10 and sharp, intermittent, worse with exertion, no palliative factors. Patient also endorses orthopnea. Patient denies any weakness or dizziness abdominal pain nausea vomiting diarrhea, recent illness or known exposures. Of note patient uses CPAP for ADAN at night. [facility] (2019): PCI with DIANELYS of mid ramus 70%. Echo (07/22/2020): EF 50 to 55%. Echo (06/2018): EF 35 to 40%. Assessment and plan Acute on chronic CHF with reduced ejection fraction Patient initiated on IV Lasix every 12 hours and potassium Cardiology note reviewed Continue management / work-up per cardiology recommendations Strict intake and output Daily weights BNP is in the mid 5000 COPD exacerbation Patient initiated on duo nebs and IV Solu-Medrol and empiric IV Levaquin Clinical history appears better and patient also feels better Possible discharge in a.m. if cardiology clears the patient Hypertension Poorly controlled Add amlodipine Continue antihypertensives and adjust medications Hyperlipidemia Continue statin History of ADAN Continue CPAP at at bedtime Type 2 diabetes A1c 4.4 Continue insulin sliding scale coverage Accu-Cheks reviewed Microcytic anemia No overt bleed Monitor H&H Morbid obesity Counseling done on diet, weight loss and daily exercise if possible Tobacco abuse Smoking cessation counseling was done Objective - Constitutional Vitals: Vital Signs - 12hr 09/16/20 09/16/20 09/16/20 04:37 04:53 06:47 Temperature 98.0 F Pulse Rate 89 89 Pulse Rate [ Anterior Bilateral Throughout] Pulse Rate [ 87 From Monitor] Respiratory 18 Rate Respiratory Rate [Anterior Bilateral Throughout] Blood Pressure 184/105 Blood Pressure 173/91 [Right] O2 Sat by Pulse 92 94 Oximetry 09/16/20 09/16/20 09/16/20 07:48 08:35 12:00 Temperature 97.6 F 97.8 F Pulse Rate 85 91 H Pulse Rate [ 89 Anterior Bilateral Throughout] Pulse Rate [ From Monitor] Respiratory 18 18 Rate Respiratory 18 Rate [Anterior Bilateral Throughout] Blood Pressure 183/103 Blood Pressure 173/86 [Right] O2 Sat by Pulse 100 92 Oximetry 09/16/20 12:20 Temperature Pulse Rate Pulse Rate [ 98 H Anterior Bilateral Throughout] Pulse Rate [ From Monitor] Respiratory Rate Respiratory 18 Rate [Anterior Bilateral Throughout] Blood Pressure Blood Pressure [Right] O2 Sat by Pulse Oximetry General appearance: Present: no acute distress, obese - EENT Eyes: PERRL, EOM intact ENT: hearing intact - Neck Neck: supple, normal ROM, no masses or JVD - Respiratory Respiratory effort: normal Respiratory: bilateral: CTA, diminished, negative: rales, rhonchi - Cardiovascular Rhythm: regular Heart Sounds: Present: S1 & S2 Extremities: No edema - Gastrointestinal General gastrointestinal: Present: soft, non-tender Rectal Exam: deferred - Genitourinary Female genitourinary: deferred - Integumentary Integumentary: clear - Musculoskeletal Musculoskeletal: strength equal bilaterally - Neurologic Neurologic: no focal deficits, moves all extremities - Psychiatric Psychiatric: appropriate mood/affect - Labs CBC & Chem 7: 09/16/20 04:51 09/16/20 04:51 Labs: Abnormal lab results 09/15/20 09/16/20 09/16/20 Range/Units 21:02 04:51 04:51 RBC 5.47 H (3.65-5.03) M/mm3 Hgb 9.6 L (10.1-14.3) gm/dl MCV 61 L (79-97) fl MCH 18 L (28-32) pg MCHC 29 L (30-34) % RDW 25.2 H (13.2-15.2) % Lymph % (Auto) 6.5 L (13.4-35.0) % Lymph # (Auto) 0.5 L (1.2-5.4) K/mm3 Seg Neutrophils % 88.4 H (40.0-70.0) % Sodium 133 L (137-145) mmol/L Chloride 97.7 L (98-107) mmol/L BUN 19 H (7-17) mg/dL Glucose 131 H (65-100) mg/dL POC Glucose 218 H (70-105) mg/dL ALT 5 L (7-56) units/L Alkaline Phosphatase 173 H (35-129) units/L Albumin 3.8 L (3.9-5) g/dL 09/16/20 09/16/20 Range/Units 07:47 11:26 RBC (3.65-5.03) M/mm3 Hgb (10.1-14.3) gm/dl MCV (79-97) fl MCH (28-32) pg MCHC (30-34) % RDW (13.2-15.2) % Lymph % (Auto) (13.4-35.0) % Lymph # (Auto) (1.2-5.4) K/mm3 Seg Neutrophils % (40.0-70.0) % Sodium (137-145) mmol/L Chloride (98-107) mmol/L BUN (7-17) mg/dL Glucose (65-100) mg/dL POC Glucose 188 H 190 H (70-105) mg/dL ALT (7-56) units/L Alkaline Phosphatase (35-129) units/L Albumin (3.9-5) g/dL HEART Score - HEART Score EKG: Normal Age: 45-65 Risk factors: > 3 risk factors or hx of atherosclerotic disease Troponin: Troponin T < 0.010 ng/mL (0.00-0.029) 09/16/20 13:14 Troponin: < normal limit
--- NOTE | 2020-09-16 15:11 | Progress Note ---
Assessment and Plan Telemetry reviewed: Sinus rhythm 88. No events * Chest pain in setting of coronary artery disease status post PCI * Patient is currently chest pain-free * 12-lead reviewed normal sinus rhythm no ST segment elevation. Troponins are negative x2. Continue to trend CE's. * We will plan for ischemic eval once patient is medically stabilized. * Continue ASA 81 mg p.o. daily, atorvastatin 40 mg nightly * No objection to Imdur 60 mg daily * Acute respiratory failure with hypoxia secondary to COPD exacerbation and history of ADAN * Patient is currently receiving albuterol nebulized treatment with supplemental oxygen. Management per primary team. * No beta-blockers in setting of obstructive pulmonary exacerbation requiring nebulized beta agonist * CPAP ordered nightly * Hypertensive emergency * Optimize antihypertensive regimen: Initiate losartan 50 mg p.o. daily, continue amlodipine 5 mg p.o. daily, continue clonidine 0.2 mg twice daily, continue hydralazine 100 mg p.o. every 8 hours, discontinue metoprolol XL 50 mg daily * Acute on chronic heart failure reduced ejection fraction in setting of cardiomyopathy * Repeat echo cardiogram is pending. To prior echo is reviewed with discrepancy of ejection fraction. * Continue volume optimization: Agree with Lasix 40 mg p.o. twice daily, continue Aldactone 25 mg daily * DVT prophylaxis * Heparin SQ We will follow This patient was seen in conjunction with Dr Roberto who agrees with this assessment and plan of care. - Patient Problems (1) Acute respiratory failure with hypoxia Current Visit: Yes Status: Acute (2) COPD exacerbation Current Visit: Yes Status: Acute (3) Hypertensive emergency Current Visit: Yes Status: Acute (4) CAD (coronary artery disease) Current Visit: Yes Status: Chronic Qualifiers: Coronary Disease-Associated Artery/Lesion type: elem artery [place] vs. transplanted heart: elem heart Associated angina: with stable angina Qualified Code(s): I25.118 - Atherosclerotic heart disease of [place] coronary artery with other forms of angina pectoris (5) Stented coronary artery Current Visit: Yes Status: Chronic (6) Acute on chronic HFrEF (heart failure with reduced ejection fraction) Current Visit: Yes Status: Acute (7) DVT prophylaxis Current Visit: No Status: Acute (8) Anemia Current Visit: Yes Status: Acute (9) Cardiomyopathy Current Visit: No Status: Chronic Qualifiers: Cardiomyopathy type: ischemic Qualified Code(s): I25.5 - Ischemic cardiomyopathy (10) Diabetes mellitus, type 2 Current Visit: Yes Status: Chronic (11) HTN (hypertension) Current Visit: Yes Status: Chronic Qualifiers: Hypertension type: essential hypertension Qualified Code(s): I10 - Essential (primary) hypertension (12) Hyperlipidemia Current Visit: Yes Status: Chronic Qualifiers: Hyperlipidemia type: mixed hyperlipidemia Qualified Code(s): E78.2 - Mixed hyperlipidemia (13) ADAN (obstructive sleep apnea) Current Visit: Yes Status: Chronic (14) Tobacco use Current Visit: Yes Status: Chronic Subjective Date of service: 09/16/20 Principal diagnosis: COPD exacerbation, acute on chronic diastolic heart failure Interval history: Patient resting comfortably in bed. No chest pain overnight and patient reports significant improvement in shortness of breath. She is currently on supplemental O2 via nasal cannula at 5 L/min. Telemetry reviewed: Sinus rhythm 88. No events Objective Last Vital Signs Temp 97.8 F 09/16/20 12:00 Pulse 98 H 09/16/20 12:20 Resp 18 09/16/20 12:20 BP 173/86 09/16/20 12:00 Pulse Ox 92 09/16/20 12:00 - Physical Examination HEENT: Positive: PERRL, Normocephaly, Mucus Membranes Moist Neck: Positive: neck supple, trachea midline Cardiac: Positive: Reg Rate and Rhythm, S1/S2 Lungs: Positive: clear to auscultation, Normal Breath Sounds Neuro: Positive: Grossly Intact Abdomen: Positive: Unremarkable, Soft Skin: Negative: Rash, Wound Extremities: Present: upper extr. pulses, lower extr. pulses, +2 Edema - Labs and Meds Cardiac Enzymes 09/16/20 Range/Units 04:51 AST 8 (5-40) units/L CBC 09/16/20 Range/Units 04:51 WBC 7.7 (4.5-11.0) K/mm3 RBC 5.47 H (3.65-5.03) M/mm3 Hgb 9.6 L (10.1-14.3) gm/dl Hct 33.1 (30.3-42.9) % Plt Count 290 (140-440) K/mm3 Lymph # (Auto) 0.5 L (1.2-5.4) K/mm3 [place] # (Auto) 0.2 (0.0-0.8) K/mm3 Eos # (Auto) 0.0 (0.0-0.4) K/mm3 Baso # (Auto) 0.1 (0.0-0.1) K/mm3 Comprehensive Metabolic Panel 09/16/20 Range/Units 04:51 Sodium 133 L (137-145) mmol/L Potassium 4.4 (3.6-5.0) mmol/L Chloride 97.7 L (98-107) mmol/L Carbon Dioxide 23 (22-30) mmol/L BUN 19 H (7-17) mg/dL Creatinine 0.8 (0.6-1.2) mg/dL Glucose 131 H (65-100) mg/dL Calcium 9.1 (8.4-10.2) mg/dL AST 8 (5-40) units/L ALT 5 L (7-56) units/L Alkaline Phosphatase 173 H (35-129) units/L Total Protein 7.8 (6.3-8.2) g/dL Albumin 3.8 L (3.9-5) g/dL - Imaging and Cardiology EKG: report reviewed (Sinus rhythm no acute ST-T wave changes) Echo: pending - Telemetry EKG Rhythm: Sinus Rhythm - EKG Sinus rhythms and dysrhythmias: sinus rhythm
[2020-09-16] MEDS: ONDANSETRON 4 MG/2 ML INJ IV PRN (21:43)
[2020-09-16] MEDS: HYDROmorphone 1 MG/1 ML INJ IV PRN (21:47)
[2020-09-16] MEDS ORDERED: NON-FORMULARY EACH (Simvastatin [Simvastatin] 40 MG Tablet) PO SCH (22:00)
[2020-09-17] MEDS: HYDROmorphone 1 MG/1 ML INJ IV PRN ×2 (01:54→23:13)
[2020-09-17] MEDS: FUROSEMIDE 40 MG TAB PO SCH ×2 (06:41→17:50)
[2020-09-17] MEDS: hydrALAZINE 100 MG TAB PO SCH ×3 (06:41→22:48)
[2020-09-17] MEDS: methylPREDNISolone Sod Succinate 125 MG/2 ML INJ IV SCH (06:42)
[2020-09-17] MEDS ORDERED: LOSARTAN 50 MG TAB PO SCH (07:56)
[2020-09-17] MEDS: IPRATROPIUM/ALBUTEROL SULFATE 3 ML AMPUL.NEB IH SCH ×4 (08:30→20:56)
[2020-09-17] MEDS: BUDESONIDE 0.5 MG/2 ML NEBU IH SCH ×2 (08:30→20:56)
[2020-09-17] MEDS: ARFORMOTEROL 15 MCG/2 ML NEBU IH SCH ×2 (08:30→20:56)
--- NOTE | 2020-09-17 09:28 | Progress Note ---
Subjective Date of service: 09/17/20 Principal diagnosis: COPD exacerbation, acute on chronic diastolic heart failure Interval history: History of present illness: This patient is a 60-year-old female with a significant history of coronary artery disease status post PCI in 2019, cardiomyopathy, kal-mwaipiq-njbehxxog diabetic, systolic heart failure, hypertension, hyper lipid, tobacco use, COPD. Patient presents to ER with a chief complaint of chest pain and shortness of breath x1 week and bilateral lower extremity edema. Patient states she has gained approximately 12 pounds over the last week. Shortness of breath has continued to worsen in spite of using albuterol MDI approximately 4 times a day. Chest pain she describes as substernal 7 out of 10 and sharp, intermittent, worse with exertion, no palliative factors. Patient also endorses orthopnea. Patient denies any weakness or dizziness abdominal pain nausea vomiting diarrhea, recent illness or known exposures. Of note patient uses CPAP for ADAN at night. [facility] (2019): PCI with DIANELYS of mid ramus 70%. Echo (07/22/2020): EF 50 to 55%. Echo (06/2018): EF 35 to 40%. 5/8 feels better, states she is less short of breath, complains of cough with yellowish sputum, denies fever or chills, also complains of feeling depressed and frequently crying without any reason. She denies any chest pain, or abdominal pain Assessment and plan Acute on chronic CHF with reduced ejection fraction Patient initiated on IV Lasix every 12 hours and potassium Continue Entresto and spironolactone Cardiology note reviewed Continue management / work-up per cardiology recommendations Strict intake and output Daily weights BNP is in the mid 5000 COPD exacerbation Patient initiated on duo nebs and IV Solu-Medrol and empiric IV Levaquin patient also better and less short of breath We will change IV steroids to p.o. prednisone Continue arformoterol and budesonide solutions via nebulizer and continue DuoNeb treatments Chronic hypoxia Oxygen saturation on 4 L via nasal cannula is 88 to 92% Chest x-ray reviewed Hypertension Poorly controlled Continue amlodipine Increase clonidine to 0.2 mg 3 times daily Stop losartan as patient is on Entresto Depressed mood We will start on fluoxetine Discussed with the patient and she is okay with it Hyperlipidemia Continue statin History of ADAN Continue CPAP at at bedtime Type 2 diabetes A1c 4.4 Continue insulin sliding scale coverage Accu-Cheks reviewed Microcytic anemia No overt bleed Monitor H&H Morbid obesity Counseling done on diet, weight loss and daily exercise if possible Tobacco abuse Smoking cessation counseling was done Objective - Constitutional Vitals: Vital Signs - 12hr 09/16/20 09/16/20 09/17/20 21:29 21:42 00:08 Temperature 98.0 F Pulse Rate 99 H Pulse Rate [ 92 H Anterior Bilateral Throughout] Respiratory 18 Rate Respiratory 18 Rate [Anterior Bilateral Throughout] Blood Pressure 179/92 176/96 O2 Sat by Pulse 88 Oximetry 09/17/20 09/17/20 04:49 07:30 Temperature 98.0 F 97.9 F Pulse Rate 87 91 H Pulse Rate [ Anterior Bilateral Throughout] Respiratory 18 22 Rate Respiratory Rate [Anterior Bilateral Throughout] Blood Pressure 179/102 185/109 O2 Sat by Pulse 92 93 Oximetry General appearance: Present: well-nourished, obese - EENT Eyes: PERRL, EOM intact ENT: hearing intact, clear oral mucosa - Neck Neck: supple, normal ROM, no masses or JVD - Respiratory Respiratory effort: normal Respiratory: bilateral: diminished, rhonchi - Cardiovascular Rhythm: regular Heart Sounds: Present: S1 & S2 Extremity abnormal: edema (Trace bilateral leg edema) - Gastrointestinal General gastrointestinal: Present: soft, non-tender Rectal Exam: deferred - Genitourinary Female genitourinary: deferred - Integumentary Integumentary: clear - Musculoskeletal Musculoskeletal: strength equal bilaterally - Neurologic Neurologic: no focal deficits, moves all extremities - Psychiatric Psychiatric: appropriate mood/affect - Labs CBC & Chem 7: 09/16/20 04:51 09/16/20 04:51 Labs: Abnormal lab results 09/16/20 09/16/20 09/16/20 Range/Units 07:47 11:26 16:41 POC Glucose 188 H 190 H 223 H (70-105) mg/dL 09/16/20 09/17/20 Range/Units 21:41 07:32 POC Glucose 215 H 251 H (70-105) mg/dL HEART Score - HEART Score EKG: Normal Age: 45-65 Risk factors: > 3 risk factors or hx of atherosclerotic disease Troponin: Troponin T < 0.010 ng/mL (0.00-0.029) 09/16/20 13:14 Troponin: < normal limit
[2020-09-17 10:02] LABS: Mean Corpuscular HGB Conc 28 % (30-34); Platelet Count 317 K/mm3 (140-440); Red Blood Count 5.38 M/mm3 (3.65-5.03)
[2020-09-17 10:06] LABS: BUN/Creatinine Ratio 34; Blood Urea Nitrogen 31 mg/dL (7-17); Calcium 8.9 mg/dL (8.4-10.2); Hemolysis Index 2
[2020-09-17 10:11] LABS: Hemoglobin 9.1 gm/dl (10.1-14.3); Mean Corpuscular Volume 61 fl (79-97); Red Cell Distribution Width 25.2 % (13.2-15.2)
[2020-09-17] MEDS: INSULIN LISPRO 100 UNIT/ML SUB-Q SCH ×4 (10:53→22:50)
[2020-09-17] MEDS: INSULIN NPH/REGULAR 70/30 INJ SUB-Q SCH ×2 (10:53→17:49)
[2020-09-17] MEDS: SACUBITRIL/VALSARTAN 49-51 MG TAB PO SCH (10:54)
[2020-09-17] MEDS: FLUoxetine 20 MG CAP PO SCH (10:54)
[2020-09-17] MEDS: FAMOTIDINE 20 MG TAB PO SCH ×2 (10:54→22:48)
[2020-09-17] MEDS: predniSONE 20 MG TAB PO SCH (10:54)
[2020-09-17] MEDS: CELECOXIB 200 MG CAP PO SCH (10:54)
[2020-09-17] MEDS: ASPIRIN EC 81 MG TAB PO SCH (10:54)
[2020-09-17] MEDS: levoFLOXacin 750 MG TAB PO SCH (10:55)
[2020-09-17] MEDS: FERROUS SULFATE 325 MG TAB PO SCH ×2 (10:55→22:58)
[2020-09-17] MEDS: SPIRONOLACTONE 25 MG TAB PO SCH (10:55)
[2020-09-17] MEDS: POTASSIUM CHLORIDE ER 20 MEQ TAB PO SCH ×2 (10:55→22:57)
[2020-09-17] MEDS: amLODIPine 5 MG TAB PO SCH (10:55)
[2020-09-17] MEDS: CLOPIDOGREL 75 MG TAB PO SCH (10:55)
[2020-09-17] MEDS: cloNIDine 0.2 MG TAB PO SCH ×2 (11:00→17:49)
[2020-09-17] MEDS: HEPARIN 5,000 UNIT/1 ML VIAL SUB-Q SCH ×2 (12:13→22:49)
--- NOTE | 2020-09-17 22:30 | Progress Note ---
Assessment and Plan Pt is requesting Psych eval, stating "I am depressed. I cry all the time. My kids don't care about me." Also expressing suicidal ideation, stating "I have guns at home. I had to put them in the safe." From a cardiac standpoint, continue IV diuresis and other present mgmt. Resume BB as tolerated. Will optimize antihypertensive regimen and attempt to wean off Clonidine due to concerns about compliance in attempt to avoid disrupt continuation and subsequent rebound HTN as an outpatient. Pt seen in conjunction with Dr. Garsia, who agrees with the assessment and plan of care. - Patient Problems (1) Suicidal ideation Current Visit: Yes Status: Acute (2) Acute respiratory failure with hypoxia Current Visit: Yes Status: Acute (3) COPD exacerbation Current Visit: Yes Status: Acute (4) Obstructive sleep apnea Current Visit: Yes Status: Chronic (5) Obesity hypoventilation syndrome Current Visit: Yes Status: Chronic (6) Pulmonary hypertension Current Visit: Yes Status: Chronic (7) Acute on chronic heart failure with preserved ejection fraction (HFpEF) Current Visit: Yes Status: Acute (8) H/O cardiomyopathy Current Visit: Yes Status: Chronic (9) NSVT (nonsustained ventricular tachycardia) Current Visit: Yes Status: Acute (10) CAD (coronary artery disease) Current Visit: Yes Status: Chronic Qualifiers: Coronary Disease-Associated Artery/Lesion type: [place] artery [place] vs. transplanted heart: [place] heart Associated angina: with stable angina Qualified Code(s): I25.118 - Atherosclerotic heart disease of [place] coronary artery with other forms of angina pectoris (11) Stented coronary artery Current Visit: Yes Status: Chronic Plan to address problem: PCI of ramus 06/2018 (12) Accelerated hypertension Current Visit: Yes Status: Chronic (13) T2DM (type 2 diabetes mellitus) Current Visit: Yes Status: Chronic Qualifiers: Diabetes mellitus assisted insulin use: unspecified assisted insulin use status (14) Tobacco abuse Current Visit: Yes Status: Chronic (15) Depression Current Visit: Yes Status: Suspected Subjective Date of service: 09/17/20 Principal diagnosis: COPD Exacerbation, ADAN/OHS, A/C HFrEF Interval history: Resting comfortably in bed. SOB is improving. Still with significant edema. Tele reviewed - SR 80s, 5-bt run of VT noted 09/17 @ 1706. Objective Last Vital Signs Temp 97.3 F L 09/17/20 20:01 Pulse 70 09/17/20 20:01 Resp 18 09/17/20 20:01 BP 155/84 09/17/20 20:01 Pulse Ox 98 09/17/20 20:01 - Physical Examination General: No Apparent Distress HEENT: Positive: EOMI, Normocephaly, Mucus Membranes Moist Neck: Positive: neck supple, trachea midline. Negative: JVD/HJR Cardiac: Positive: Reg Rate and Rhythm, S1/S2 Lungs: Positive: Decreased Breath Sounds Neuro: Positive: Grossly Intact Abdomen: Positive: Soft. Negative: Tender Skin: Negative: Rash Extremities: Present: lower extr. pulses, +2 Edema - Labs and Meds CBC 09/17/20 Range/Units 09:37 WBC 9.9 (4.5-11.0) K/mm3 RBC 5.38 H (3.65-5.03) M/mm3 Hgb 9.1 L (10.1-14.3) gm/dl Hct 33.0 (30.3-42.9) % Plt Count 317 (140-440) K/mm3 Comprehensive Metabolic Panel 09/17/20 Range/Units 09:37 Sodium 137 (137-145) mmol/L Potassium 5.0 (3.6-5.0) mmol/L Chloride 101.9 (98-107) mmol/L Carbon Dioxide 22 (22-30) mmol/L BUN 31 H (7-17) mg/dL Creatinine 0.9 (0.6-1.2) mg/dL Glucose 223 H (65-100) mg/dL Calcium 8.9 (8.4-10.2) mg/dL - Imaging and Cardiology EKG: report reviewed, image reviewed Echo: report reviewed (09/15/2020 - EF 50-55%, mod concentric LVH) - Telemetry EKG Rhythm: Sinus Rhythm - EKG Sinus rhythms and dysrhythmias: sinus rhythm
[2020-09-18] MEDS: cloNIDine 0.2 MG TAB PO SCH ×4 (00:37→22:07)
[2020-09-18] MEDS: HYDROmorphone 1 MG/1 ML INJ IV PRN ×4 (05:30→22:13)
[2020-09-18] MEDS: hydrALAZINE 100 MG TAB PO SCH ×3 (05:31→22:07)
[2020-09-18] MEDS: FUROSEMIDE 40 MG TAB PO SCH (05:44)
[2020-09-18 06:49] LABS: Mean Corpuscular HGB Conc 28 % (30-34); Platelet Count 273 K/mm3 (140-440); Red Blood Count 5.36 M/mm3 (3.65-5.03)
[2020-09-18 07:29] LABS: BUN/Creatinine Ratio 38; Blood Urea Nitrogen 34 mg/dL (7-17); Calcium 8.5 mg/dL (8.4-10.2); Hemolysis Index 139
[2020-09-18 07:51] LABS: Hematocrit 33.4 % (30.3-42.9); Hemoglobin 9.3 gm/dl (10.1-14.3); Mean Corpuscular Volume 62 fl (79-97)
[2020-09-18 07:52] LABS: Red Cell Distribution Width 25.2 % (13.2-15.2)
[2020-09-18] MEDS ORDERED: SODIUM POLYSTYRENE 15 GM/60 ML ORAL LIQD PO ONE ×2 (08:00→11:00)
[2020-09-18] MEDS: INSULIN LISPRO 100 UNIT/ML SUB-Q SCH ×4 (08:00→22:21)
[2020-09-18] MEDS: ARFORMOTEROL 15 MCG/2 ML NEBU IH SCH ×2 (08:03→20:41)
[2020-09-18] MEDS: IPRATROPIUM/ALBUTEROL SULFATE 3 ML AMPUL.NEB IH SCH ×4 (08:04→20:20)
[2020-09-18] MEDS: BUDESONIDE 0.5 MG/2 ML NEBU IH SCH ×2 (08:04→20:41)
[2020-09-18] MEDS: FERROUS SULFATE 325 MG TAB PO SCH ×2 (10:49→22:14)
[2020-09-18] MEDS: INSULIN NPH/REGULAR 70/30 INJ SUB-Q SCH ×3 (10:49→17:13)
[2020-09-18] MEDS: CELECOXIB 200 MG CAP PO SCH (10:50)
[2020-09-18] MEDS: ASPIRIN EC 81 MG TAB PO SCH (10:50)
[2020-09-18] MEDS: predniSONE 20 MG TAB PO SCH (10:50)
[2020-09-18] MEDS: FAMOTIDINE 20 MG TAB PO SCH ×2 (10:50→22:14)
[2020-09-18] MEDS: METOPROLOL SUCCINATE XL 25 MG TAB PO SCH (10:50)
[2020-09-18] MEDS: SACUBITRIL/VALSARTAN 49-51 MG TAB PO SCH (10:50)
[2020-09-18] MEDS: SPIRONOLACTONE 25 MG TAB PO SCH (10:50)
[2020-09-18] MEDS: amLODIPine 5 MG TAB PO SCH (10:50)
[2020-09-18] MEDS: FLUoxetine 20 MG CAP PO SCH (10:50)
[2020-09-18] MEDS: CLOPIDOGREL 75 MG TAB PO SCH (10:50)
[2020-09-18] MEDS: HEPARIN 5,000 UNIT/1 ML VIAL SUB-Q SCH ×2 (10:51→22:14)
[2020-09-18] MEDS: levoFLOXacin 750 MG TAB PO SCH (10:51)
--- NOTE | 2020-09-18 11:47 | Progress Note ---
Subjective Date of service: 09/18/20 Principal diagnosis: COPD Exacerbation, ADAN/OHS, A/C HFrEF Interval history: History of present illness: This patient is a 60-year-old female with a significant history of coronary artery disease status post PCI in 2019, cardiomyopathy, ggj-qqrltfv-nonybktzz diabetic, systolic heart failure, hypertension, hyper lipid, tobacco use, COPD. Patient presents to ER with a chief complaint of chest pain and shortness of breath x1 week and bilateral lower extremity edema. Patient states she has gained approximately 12 pounds over the last week. Shortness of breath has continued to worsen in spite of using albuterol MDI approximately 4 times a day. Chest pain she describes as substernal 7 out of 10 and sharp, intermittent, worse with exertion, no palliative factors. Patient also endorses orthopnea. Patient denies any weakness or dizziness abdominal pain nausea vomiting diarrhea, recent illness or known exposures. Of note patient uses CPAP for ADAN at night. [facility] (2019): PCI with DIANELYS of mid ramus 70%. Echo (07/22/2020): EF 50 to 55%. Echo (06/2018): EF 35 to 40%. 5/8 feels better, states she is less short of breath, complains of cough with yellowish sputum, denies fever or chills, also complains of feeling depressed and frequently crying without any reason. She denies any chest pain, or abdominal pain Assessment and plan Acute on chronic CHF with reduced ejection fraction Patient initiated on IV Lasix every 12 hours and potassium Continue Entresto and spironolactone Cardiology note reviewed Continue management / work-up per cardiology recommendations Strict intake and output Daily weights BNP is in the mid 5000 Decrease Lasix to once daily COPD exacerbation Slow improvement Continue duo nebs and prednisone p.o. and empiric IV Levaquin patient feels better and less short of breath Continue arformoterol and budesonide solutions via nebulizer and continue DuoNeb treatments Chronic hypoxia Oxygen saturation on 4 L via nasal cannula is 88 to 92% Chest x-ray reviewed Patient is O2 dependent and is on home oxygen at 3 to 4 L Hypertension Poorly controlled Increase amlodipine 10 mg Continue clonidine to 0.2 mg 3 times daily She is also on Entresto Depressed mood Started on fluoxetine Discussed with the patient and she is okay with it Hyperlipidemia Continue statin History of ADAN Continue CPAP at at bedtime Hyperkalemia Serum potassium 5.5 ? 2/2 ARB/spironolactone Await cardiology follow-up to see if medications can be adjusted Kayexalate 30 g x 1 dose Monitor electrolytes Type 2 diabetes A1c 5.7 Continue insulin sliding scale coverage Accu-Cheks reviewed Microcytic anemia No overt bleed Check stool for occult blood Will order iron, TIBC and ferritin levels Monitor H&H Morbid obesity Counseling done on diet, weight loss and daily exercise if possible Tobacco abuse Smoking cessation counseling was done Objective - Constitutional Vitals: Vital Signs - 12hr 09/18/20 09/18/20 09/18/20 00:37 05:23 09:05 Temperature 98.0 F 98.3 F Pulse Rate 88 83 93 H Respiratory 18 18 Rate Blood Pressure 147/83 155/94 Blood Pressure 163/93 [Right] O2 Sat by Pulse 96 97 Oximetry General appearance: Present: no acute distress, well-nourished, obese - EENT Eyes: PERRL, EOM intact ENT: hearing intact, no thrush - Neck Neck: supple, normal ROM, no masses or JVD - Respiratory Respiratory effort: normal Respiratory: bilateral: CTA, diminished, rhonchi (Scattered bilateral rhonchi) - Cardiovascular Rhythm: regular Heart Sounds: Present: S1 & S2 Extremity abnormal: edema (Trace leg edema) - Gastrointestinal General gastrointestinal: Present: soft, non-tender Rectal Exam: deferred - Genitourinary Female genitourinary: deferred - Integumentary Integumentary: clear - Musculoskeletal Musculoskeletal: strength equal bilaterally - Neurologic Neurologic: no focal deficits, moves all extremities - Psychiatric Psychiatric: appropriate mood/affect - Labs CBC & Chem 7: 09/18/20 06:12 09/18/20 06:12 Labs: Abnormal lab results 09/17/20 09/17/20 09/17/20 Range/Units 11:20 16:08 21:37 WBC (4.5-11.0) K/mm3 RBC (3.65-5.03) M/mm3 Hgb (10.1-14.3) gm/dl MCV (79-97) fl MCH (28-32) pg MCHC (30-34) % RDW (13.2-15.2) % Sodium (137-145) mmol/L Potassium (3.6-5.0) mmol/L BUN (7-17) mg/dL Glucose (65-100) mg/dL POC Glucose 232 H 274 H 217 H (70-105) mg/dL 09/18/20 09/18/20 Range/Units 06:12 06:12 WBC 16.0 H (4.5-11.0) K/mm3 RBC 5.36 H (3.65-5.03) M/mm3 Hgb 9.3 L (10.1-14.3) gm/dl MCV 62 L (79-97) fl MCH 17 L (28-32) pg MCHC 28 L (30-34) % RDW 25.2 H (13.2-15.2) % Sodium 135 L (137-145) mmol/L Potassium 5.5 H (3.6-5.0) mmol/L BUN 34 H (7-17) mg/dL Glucose 117 H (65-100) mg/dL POC Glucose (70-105) mg/dL HEART Score - HEART Score EKG: Normal Age: 45-65 Risk factors: > 3 risk factors or hx of atherosclerotic disease Troponin: Troponin T < 0.010 ng/mL (0.00-0.029) 09/16/20 13:14 Troponin: < normal limit
[2020-09-18] MEDS ORDERED: amLODIPine 5 MG TAB PO SCH (11:50)
[2020-09-18] MEDS: amLODIPine 10 MG TAB PO SCH (11:58)
--- NOTE | 2020-09-18 13:02 | Progress Note ---
Assessment and Plan Consider Psych eval given aforementioned suicidal ideation. From a cardiac standpoint, continue IV diuresis. Anticipate transition to PO La six in 1-2 days. K correction underway. Hold Aldactone for now. Continue BB as tolerated. Will optimize antihypertensive regimen and attempt to wean off Clonidine due to concerns about compliance in attempt to avoid disrupt continuation and subsequent rebound HTN as an outpatient. Pt seen in conjunction with Dr. Garsia, who agrees with the assessment and plan of care. - Patient Problems (1) Suicidal ideation Current Visit: Yes Status: Acute (2) Acute respiratory failure with hypoxia Current Visit: Yes Status: Acute (3) COPD exacerbation Current Visit: Yes Status: Acute (4) Obstructive sleep apnea Current Visit: Yes Status: Chronic (5) Obesity hypoventilation syndrome Current Visit: Yes Status: Chronic (6) Pulmonary hypertension Current Visit: Yes Status: Chronic (7) Acute on chronic heart failure with preserved ejection fraction (HFpEF) Current Visit: Yes Status: Acute (8) H/O cardiomyopathy Current Visit: Yes Status: Chronic (9) NSVT (nonsustained ventricular tachycardia) Current Visit: Yes Status: Acute (10) CAD (coronary artery disease) Current Visit: Yes Status: Chronic Qualifiers: Coronary Disease-Associated Artery/Lesion type: [place] artery [place] vs. transplanted heart: [place] heart Associated angina: with stable angina Qualified Code(s): I25.118 - Atherosclerotic heart disease of [place] coronary artery with other forms of angina pectoris (11) Stented coronary artery Current Visit: Yes Status: Chronic Plan to address problem: PCI of ramus 06/2018 (12) Accelerated hypertension Current Visit: Yes Status: Chronic (13) T2DM (type 2 diabetes mellitus) Current Visit: Yes Status: Chronic Qualifiers: Diabetes mellitus senior care insulin use: unspecified senior care insulin use status (14) Tobacco abuse Current Visit: Yes Status: Chronic (15) Depression Current Visit: Yes Status: Chronic Subjective Date of service: 09/18/20 Principal diagnosis: COPD Exacerbation, ADAN/OHS, A/C HFrEF Interval history: Resting comfortably in bed. SOB continues to improve. Still with significant edema. -1800 mL UOP/24 hrs. Tele reviewed - SR 80s, 5-bt run of VT noted 09/17 @ 1706. Objective Last Vital Signs Temp 98.3 F 09/18/20 09:05 Pulse 93 H 05/09/21 09:05 Resp 18 09/18/20 09:05 BP 163/93 09/18/20 09:05 Pulse Ox 97 09/18/20 09:05 - Physical Examination General: No Apparent Distress HEENT: Positive: EOMI, Normocephaly, Mucus Membranes Moist Neck: Positive: neck supple, trachea midline. Negative: JVD/HJR Cardiac: Positive: Reg Rate and Rhythm, S1/S2 Lungs: Positive: Decreased Breath Sounds (bilaterally) Neuro: Positive: Grossly Intact Abdomen: Positive: Soft. Negative: Tender Skin: Negative: Rash Extremities: Present: upper extr. pulses, lower extr. pulses, +1 Edema (BLE) - Labs and Meds CBC 09/18/20 Range/Units 06:12 WBC 16.0 H (4.5-11.0) K/mm3 RBC 5.36 H (3.65-5.03) M/mm3 Hgb 9.3 L (10.1-14.3) gm/dl Hct 33.4 (30.3-42.9) % Plt Count 273 (140-440) K/mm3 Comprehensive Metabolic Panel 09/18/20 Range/Units 06:12 Sodium 135 L (137-145) mmol/L Potassium 5.5 H (3.6-5.0) mmol/L Chloride 101.0 (98-107) mmol/L Carbon Dioxide 24 (22-30) mmol/L BUN 34 H (7-17) mg/dL Creatinine 0.9 (0.6-1.2) mg/dL Glucose 117 H (65-100) mg/dL Calcium 8.5 (8.4-10.2) mg/dL - Imaging and Cardiology EKG: report reviewed, image reviewed Echo: report reviewed (09/15/2020 - EF 50-55%, mod concentric LVH) - Telemetry EKG Rhythm: Sinus Rhythm - EKG Sinus rhythms and dysrhythmias: sinus rhythm
[2020-09-18] MEDS: ONDANSETRON 4 MG/2 ML INJ IV PRN ×2 (17:31→22:13)
[2020-09-18] MEDS ORDERED: ALBUTEROL 2.5 MG/3 ML NEBU IH PRN (20:44)
[2020-09-19] MEDS: HYDROmorphone 1 MG/1 ML INJ IV PRN (05:50)
[2020-09-19] MEDS: hydrALAZINE 100 MG TAB PO SCH ×3 (05:50→22:49)
[2020-09-19] MEDS: cloNIDine 0.2 MG TAB PO SCH ×3 (05:50→22:49)
[2020-09-19 06:40] LABS: Mean Corpuscular HGB Conc 29 % (30-34); Platelet Count 269 K/mm3 (140-440); Red Blood Count 5.57 M/mm3 (3.65-5.03)
[2020-09-19 06:41] LABS: Hemoglobin 9.7 gm/dl (10.1-14.3); Mean Corpuscular Volume 61 fl (79-97); Red Cell Distribution Width 25.5 % (13.2-15.2)
[2020-09-19 07:05] LABS: BUN/Creatinine Ratio 36; Blood Urea Nitrogen 29 mg/dL (7-17); Calcium 8.3 mg/dL (8.4-10.2); Hemolysis Index 47
[2020-09-19] MEDS: INSULIN NPH/REGULAR 70/30 INJ SUB-Q SCH ×2 (08:31→17:25)
[2020-09-19] MEDS: INSULIN LISPRO 100 UNIT/ML SUB-Q SCH ×3 (08:48→22:55)
--- NOTE | 2020-09-19 09:15 | Progress Note ---
Assessment and Plan Assessment and plan: #Acute on chronic diastolic heart failure Lasix p.o. Aldactone on hold per cardiology Toprol Cardiology note reviewed Echocardiogram-EF 55 to 60% Continue to monitor I's and O's Daily weights #COPD exacerbation Bronchodilators Prednisone p.o. Follows up with Dr. Rios in the office. She had a pulmonary function test performed recently but results are unknown as per patient #Chronic hypoxia Uses oxygen at home-2 to 3 L of oxygen #Hypertension Continue amlodipine, clonidine #Depression Patient started on fluoxetine Psych consulted for evaluation #Hyperlipidemia Continue statin #History of ADAN Continue CPAP at at bedtime #Hyperkalemia Resolved #Type 2 diabetes A1c 5.7 Well-controlled Continue lispro as ordered #Morbid obesity Counseling done on diet, weight loss and daily exercise if possible #Tobacco abuse Smoking cessation counseling was done #DVT prophylaxis-Heparin/Lovenox. #Disposition-likely home when stable for discharge History Interval history: HPI This patient is a 60-year-old female with a significant history of coronary artery disease status post PCI in 2019, cardiomyopathy, czc-egswexd-eiktaschw diabetic, systolic heart failure, hypertension, hyper lipid, tobacco use, COPD. Patient presents to ER with a chief complaint of chest pain and shortness of breath x1 week and bilateral lower extremity edema. Patient states she has gained approximately 12 pounds over the last week. Shortness of breath has continued to worsen in spite of using albuterol MDI approximately 4 times a day. Chest pain she describes as substernal 7 out of 10 and sharp, intermittent, worse with exertion, no palliative factors. Patient also endorses orthopnea. Patient denies any weakness or dizziness abdominal pain nausea vomiting diarrhea, recent illness or known exposures. Of note patient uses CPAP for ADAN at night. [facility] (2019): PCI with DIANELYS of mid ramus 70%. Echo (07/22/2020): EF 50 to 55%. Echo (06/2018): EF 35 to 40%. 5/8 feels better, states she is less short of breath, complains of cough with yellowish sputum, denies fever or chills, also complains of feeling depressed and frequently crying without any reason. She denies any chest pain, or abdominal pain /10. Patient seen and examined at bedside this morning. In a good mood. Psychiatry consulted for noted depression with questionable suicidal ideation. Remains on diuretics. Cardiology following. Vitals reviewed-SBP in the 130s. Hospitalist Physical - Physical exam Narrative exam: VITAL SIGNS: Reviewed. GENERAL: Awake HEAD: No signs of head trauma. EYES: Pupils are equal. Extraocular motions intact. MOUTH: Oropharynx is normal. NECK: No adenopathy, no JVD. CHEST: Diminished breath sounds bilaterally with trace wheeze CARDIAC: normal S1 and S2, without murmurs, gallops, or rubs. ABDOMEN: Soft, non tender and non distended. No rebound or guarding, and no masses palpated. Bowel Sounds normal. MUSCULOSKELETAL: Slight edema NEUROLOGIC EXAM: Alert and oriented x3. No focal neurologic deficits SKIN: No obvious lesions - Constitutional Vitals: Temp Pulse Resp BP Pulse Ox 98.4 F 68 22 135/81 96 09/19/20 07:35 09/19/20 07:35 09/19/20 07:35 09/19/20 07:35 09/19/20 07:35 HEART Score - HEART Score EKG: Normal Age: 45-65 Risk factors: > 3 risk factors or hx of atherosclerotic disease Troponin: Troponin T < 0.010 ng/mL (0.00-0.029) 09/16/20 13:14 Troponin: < normal limit Results - Labs CBC & Chem 7: 09/19/20 05:17 09/19/20 05:17 Labs: Laboratory Last Values WBC 12.6 K/mm3 (4.5-11.0) H 09/19/20 05:17 RBC 5.57 M/mm3 (3.65-5.03) H 09/19/20 05:17 Hgb 9.7 gm/dl (10.1-14.3) L 09/19/20 05:17 Hct 34.0 % (30.3-42.9) 09/19/20 05:17 MCV 61 fl (79-97) L 09/19/20 05:17 MCH 18 pg (28-32) L 09/19/20 05:17 MCHC 29 % (30-34) L 09/19/20 05:17 RDW 25.5 % (13.2-15.2) H 09/19/20 05:17 Plt Count 269 K/mm3 (140-440) 09/19/20 05:17 Lymph % (Auto) 6.5 % (13.4-35.0) L 09/16/20 04:51 [place] % (Auto) 2.9 % (0.0-7.3) 09/16/20 04:51 Eos % (Auto) 0.0 % (0.0-4.3) 09/16/20 04:51 Baso % (Auto) 1.2 % (0.0-1.8) 09/16/20 04:51 Lymph # (Auto) 0.5 K/mm3 (1.2-5.4) L 09/16/20 04:51 [place] # (Auto) 0.2 K/mm3 (0.0-0.8) 09/16/20 04:51 Eos # (Auto) 0.0 K/mm3 (0.0-0.4) 09/16/20 04:51 Baso # (Auto) 0.1 K/mm3 (0.0-0.1) 09/16/20 04:51 Add Manual Diff Complete 09/15/20 12:40 Total Counted 100 09/15/20 12:40 Seg Neutrophils % 88.4 % (40.0-70.0) H 09/16/20 04:51 Seg Neuts % (Manual) 84.0 % (40.0-70.0) H 09/15/20 12:40 Lymphocytes % (Manual) 11.0 % (13.4-35.0) L 09/15/20 12:40 Monocytes % (Manual) 4.0 % (0.0-7.3) 09/15/20 12:40 Eosinophils % (Manual) 1.0 % (0.0-4.3) 09/15/20 12:40 Nucleated RBC % Not Reportable 09/15/20 12:40 Seg Neutrophils # 6.9 K/mm3 (1.8-7.7) 09/16/20 04:51 Seg Neutrophils # Man 5.6 K/mm3 (1.8-7.7) 09/15/20 12:40 Band Neutrophils # 0.0 K/mm3 09/15/20 12:40 Lymphocytes # (Manual) 0.7 K/mm3 (1.2-5.4) L 09/15/20 12:40 Abs React Lymphs (Man) 0.0 K/mm3 09/15/20 12:40 Monocytes # (Manual) 0.3 K/mm3 (0.0-0.8) 09/15/20 12:40 Eosinophils # (Manual) 0.1 K/mm3 (0.0-0.4) 09/15/20 12:40 Basophils # (Manual) 0.0 K/mm3 (0.0-0.1) 09/15/20 12:40 Metamyelocytes # 0.0 K/mm3 09/15/20 12:40 Myelocytes # 0.0 K/mm3 09/15/20 12:40 Promyelocytes # 0.0 K/mm3 09/15/20 12:40 Blast Cells # 0.0 K/mm3 09/15/20 12:40 WBC Morphology Not Reportable 09/15/20 12:40 Hypersegmented Neuts Not Reportable 09/15/20 12:40 Hyposegmented Neuts Not Reportable 09/15/20 12:40 Hypogranular Neuts Not Reportable 09/15/20 12:40 Smudge Cells Not Reportable 09/15/20 12:40 Toxic Granulation Not Reportable 09/15/20 12:40 Toxic Vacuolation Not Reportable 09/15/20 12:40 Dohle Bodies Not Reportable 09/15/20 12:40 Pelger-Huet Anomaly Not Reportable 09/15/20 12:40 Juan Rods Not Reportable 09/15/20 12:40 Platelet Estimate Consistent w auto 09/15/20 12:40 Clumped Platelets Not Reportable 09/15/20 12:40 Plt Clumps, EDTA Not Reportable 09/15/20 12:40 Large Platelets Few 09/15/20 12:40 Giant Platelets Rare 09/15/20 12:40 Platelet Satelliting Not Reportable 09/15/20 12:40 Plt Morphology Comment Not Reportable 09/15/20 12:40 RBC Morphology Not Reportable 09/15/20 12:40 Dimorphic RBCs Not Reportable 09/15/20 12:40 Polychromasia Not Reportable 09/15/20 12:40 Hypochromasia 3+ 09/15/20 12:40 Poikilocytosis Not Reportable 09/15/20 12:40 Anisocytosis 2+ 09/15/20 12:40 Microcytosis 2+ 09/15/20 12:40 Macrocytosis Not Reportable 09/15/20 12:40 Spherocytes Not Reportable 09/15/20 12:40 Pappenheimer Bodies Not Reportable 09/15/20 12:40 Sickle Cells Not Reportable 09/15/20 12:40 Target Cells Not Reportable 09/15/20 12:40 Tear Drop Cells Not Reportable 09/15/20 12:40 Ovalocytes Not Reportable 09/15/20 12:40 Helmet Cells Not Reportable 09/15/20 12:40 Lozano-Cowden Bodies Not Reportable 09/15/20 12:40 [place] Rings Not Reportable 09/15/20 12:40 [place] Cells Not Reportable 09/15/20 12:40 Bite Cells Not Reportable 09/15/20 12:40 Crenated Cell Not Reportable 09/15/20 12:40 Elliptocytes Not Reportable 09/15/20 12:40 Acanthocytes (Spur) Not Reportable 09/15/20 12:40 Rouleaux Not Reportable 09/15/20 12:40 Hemoglobin C Crystals Not Reportable 09/15/20 12:40 Schistocytes Not Reportable 09/15/20 12:40 Malaria parasites Not Reportable 09/15/20 12:40 [place] Bodies Not Reportable 09/15/20 12:40 Hem Pathologist Commnt No 09/15/20 12:40 PT 15.5 Sec. (12.2-14.9) H 09/15/20 12:40 INR 1.25 (0.87-1.13) H 09/15/20 12:40 APTT 35.2 Sec. (24.2-36.6) 09/15/20 12:40 Sodium 137 mmol/L (137-145) 09/19/20 05:17 Potassium 4.1 mmol/L (3.6-5.0) D 09/19/20 05:17 Chloride 100.7 mmol/L (98-107) 09/19/20 05:17 Carbon Dioxide 23 mmol/L (22-30) 09/19/20 05:17 Anion Gap 17 mmol/L 09/19/20 05:17 BUN 29 mg/dL (7-17) H 09/19/20 05:17 Creatinine 0.8 mg/dL (0.6-1.2) 09/19/20 05:17 Estimated GFR > 60 ml/min 09/19/20 05:17 BUN/Creatinine Ratio 36 % 09/19/20 05:17 Glucose 120 mg/dL (65-100) H 09/19/20 05:17 POC Glucose 164 mg/dL (70-105) H 09/18/20 20:24 Hemoglobin A1c 5.7 % (4-6) 09/16/20 04:51 Calcium 8.3 mg/dL (8.4-10.2) L 09/19/20 05:17 Magnesium 2.00 mg/dL (1.7-2.3) 09/17/20 09:37 Total Bilirubin 0.40 mg/dL (0.1-1.2) 09/16/20 04:51 AST 8 units/L (5-40) 09/16/20 04:51 ALT 5 units/L (7-56) L 09/16/20 04:51 Alkaline Phosphatase 173 units/L (35-129) H 09/16/20 04:51 Troponin T < 0.010 ng/mL (0.00-0.029) 09/16/20 13:14 NT-Pro-B Natriuret Pep 5704 pg/mL (0-900) H 09/15/20 12:40 Total Protein 7.8 g/dL (6.3-8.2) 09/16/20 04:51 Albumin 3.8 g/dL (3.9-5) L 09/16/20 04:51 Albumin/Globulin Ratio 1.0 % 09/16/20 04:51 Urine Color Yellow (Yellow) 09/16/20 00:35 Urine Turbidity Clear (Clear) 09/16/20 00:35 Urine pH 6.0 (5.0-7.0) 09/16/20 00:35 Ur Specific [place] 1.006 (1.003-1.030) 09/16/20 00:35 Urine Protein <15 mg/dl mg/dL (Negative) 09/16/20 00:35 Urine Glucose (UA) Neg mg/dL (Negative) 09/16/20 00:35 Urine Ketones Neg mg/dL (Negative) 09/16/20 00:35 Urine Blood Neg (Negative) 09/16/20 00:35 Urine Nitrite Pos (Negative) 09/16/20 00:35 Urine Bilirubin Neg (Negative) 09/16/20 00:35 Urine Urobilinogen < 2.0 mg/dL (<2.0) 09/16/20 00:35 Ur Leukocyte Esterase Neg (Negative) 09/16/20 00:35 Urine WBC (Auto) 0.0 /HPF (0.0-6.0) 09/16/20 00:35 Urine RBC (Auto) 0.0 /HPF (0.0-6.0) 09/16/20 00:35 U Epithel Cells (Auto) 1.0 /HPF (0-13.0) 09/16/20 00:35 Nasal Screen MRSA (PCR) Negative (Negative) 09/16/20 Unknown Fabian/IV: Voiding Method Toilet Active Medications - Current Medications Current Medications: Generic Name Dose Route Start Last Admin Trade Name Freq PRN Reason Stop Dose Admin Acetaminophen 650 mg 09/15/20 23:11 Acetaminophen 325 Mg Tab PO Q4H PRN Pain MILD(1-3)/Fever >100.5/ALAS Albuterol 2.5 mg 09/18/20 20:44 Albuterol 2.5 Mg/3 Ml Nebu IH Q4HRT PRN Shortness Of Breath Albuterol/Ipratropium 1 ampul 09/19/20 08:00 Ipratropium/Albuterol Sulfate 3 Ml Ampul.Neb IH TIDRT ANN MARIE Amlodipine Besylate 10 mg 09/18/20 12:00 09/18/20 11:58 Amlodipine 10 Mg Tab PO 10 mg DAILY ANN MARIE Administration Arformoterol Tartrate 15 mcg 09/16/20 10:00 09/18/20 20:41 Arformoterol 15 Mcg/2 Ml Nebu IH 15 mcg Q12HRT ANN MARIE Administration Aspirin 81 mg 09/16/20 10:00 09/18/20 10:50 Aspirin Ec 81 Mg Tab PO 81 mg QDAY ANN MARIE Administration Atorvastatin Calcium 40 mg 09/15/20 22:00 09/18/20 22:14 Atorvastatin 40 Mg Tab PO 40 mg QHS ANN MARIE Administration Budesonide 0.5 mg 09/16/20 10:00 09/18/20 20:41 Budesonide 0.5 Mg/2 Ml Nebu IH 0.5 mg Q12HRT ANN MARIE Administration Celecoxib 200 mg 09/16/20 10:00 09/18/20 10:50 Celecoxib 200 Mg Cap PO 200 mg DAILY ANN MARIE Administration Clonidine HCl 0.1 mg 09/18/20 13:04 09/19/20 05:50 Clonidine 0.2 Mg Tab PO 0.1 mg Q8H ANN MARIE Administration Clopidogrel Bisulfate 75 mg 09/16/20 10:00 09/18/20 10:50 Clopidogrel 75 Mg Tab PO 75 mg QDAY ANN MARIE Administration Famotidine 20 mg 09/15/20 23:45 09/18/20 22:14 Famotidine 20 Mg Tab PO 20 mg BID ANN MARIE Administration Ferrous Sulfate 325 mg 09/15/20 23:45 09/18/20 22:14 Ferrous Sulfate 325 Mg Tab PO 325 mg BID ANN MARIE Administration Fluoxetine HCl 20 mg 09/17/20 10:00 09/18/20 10:50 Fluoxetine 20 Mg Cap PO 20 mg QDAY ANN MARIE Administration Furosemide 40 mg 09/19/20 10:00 Furosemide 40 Mg Tab PO QDAY ANN MARIE Heparin Sodium (Porcine) 5,000 unit 09/15/20 22:00 09/18/20 22:14 Heparin 5,000 Unit/1 Ml Vial SUB-Q 5,000 unit Q12HR ANN MARIE Administration Hydralazine HCl 100 mg 09/15/20 16:00 09/19/20 05:50 Hydralazine 100 Mg Tab PO 100 mg Q8HR ANN MARIE Administration Hydralazine HCl 10 mg 09/16/20 06:48 Hydralazine 20 Mg/1 Ml Inj IV Q3H PRN SBP >/=160;DBP >/=100 Hydromorphone HCl 0.5 mg 09/15/20 23:11 09/19/20 05:50 Hydromorphone 1 Mg/1 Ml Inj IV 0.5 mg Q3H PRN Administration Pain , Severe (7-10) Insulin Human Isoph/Insulin Regular 25 unit 09/18/20 09:00 09/18/20 17:13 Insulin Nph/Regular 70/30 Inj SUB-Q 25 unit BIDDIAB ANN MARIE Administration Insulin Human Lispro 0 unit 09/15/20 23:55 09/19/20 08:48 Insulin Lispro 100 Unit/Ml SUB-Q Not Given ACHS [facility] Protocol Isosorbide Mononitrate 60 mg 09/16/20 10:00 09/18/20 10:50 Isosorbide Mononitrate Er 60 Mg Tab PO 60 mg QDAY ANN MARIE Administration Levofloxacin 750 mg 09/17/20 10:00 09/18/20 10:51 Levofloxacin 750 Mg Tab PO 09/20/20 10:01 750 mg Q24HR ANN MARIE Administration Protocol Metoclopramide HCl 10 mg 09/15/20 23:11 09/18/20 05:40 Metoclopramide 10 Mg/2 Ml Inj IV 10 mg Q6H PRN Administration Nausea And Vomiting Metoprolol Succinate 25 mg 09/18/20 10:00 09/18/20 10:50 Metoprolol Succinate Xl 25 Mg Tab PO 25 mg QDAY ANN MARIE Administration Ondansetron HCl 4 mg 09/15/20 23:11 09/18/20 22:13 Ondansetron 4 Mg/2 Ml Inj IV 4 mg Q3H PRN Administration Nausea And Vomiting Oxycodone/Acetaminophen 1 tab 09/15/20 23:06 09/16/20 00:26 Oxycodone /Acetaminophen 5-325mg Tab PO 1 tab Q6H PRN Administration Pain, Moderate (4-6) Prednisone 40 mg 09/17/20 10:00 09/18/20 10:50 Prednisone 20 Mg Tab PO 40 mg QDAY ANN MARIE Administration Sodium Chloride 10 ml 09/16/20 10:00 09/18/20 22:14 Sodium Chloride 0.9% 10 Ml Flush Syringe IV 10 ml BID ANN MARIE Administration Sodium Chloride 10 ml 09/15/20 23:11 Sodium Chloride 0.9% 10 Ml Flush Syringe IV PRN PRN LINE FLUSH
[2020-09-19] MEDS: BUDESONIDE 0.5 MG/2 ML NEBU IH SCH ×2 (10:55→20:12)
[2020-09-19] MEDS: ARFORMOTEROL 15 MCG/2 ML NEBU IH SCH ×2 (10:56→20:12)
[2020-09-19] MEDS: IPRATROPIUM/ALBUTEROL SULFATE 3 ML AMPUL.NEB IH SCH ×3 (10:56→20:11)
[2020-09-19] MEDS: FAMOTIDINE 20 MG TAB PO SCH ×2 (11:32→22:48)
[2020-09-19] MEDS: FERROUS SULFATE 325 MG TAB PO SCH ×2 (11:32→22:48)
[2020-09-19] MEDS: amLODIPine 10 MG TAB PO SCH (11:32)
[2020-09-19] MEDS: FUROSEMIDE 40 MG TAB PO SCH (11:33)
[2020-09-19] MEDS: predniSONE 20 MG TAB PO SCH (11:33)
[2020-09-19] MEDS: FLUoxetine 20 MG CAP PO SCH (11:33)
[2020-09-19] MEDS: levoFLOXacin 750 MG TAB PO SCH (11:33)
[2020-09-19] MEDS: SACUBITRIL/VALSARTAN 49-51 MG TAB PO SCH (11:34)
[2020-09-19] MEDS: CLOPIDOGREL 75 MG TAB PO SCH (11:34)
[2020-09-19] MEDS: CELECOXIB 200 MG CAP PO SCH (11:34)
[2020-09-19] MEDS: ASPIRIN EC 81 MG TAB PO SCH (11:34)
[2020-09-19] MEDS: HEPARIN 5,000 UNIT/1 ML VIAL SUB-Q SCH ×2 (11:35→22:55)
[2020-09-19] MEDS: METOPROLOL SUCCINATE XL 25 MG TAB PO SCH (11:35)
--- NOTE | 2020-09-19 11:41 | Consultation ---
History of Present Illness - Reason for Consult Consult date: 09/19/20 Reason for consult: depression - History of Present Psychiatric Illness Floresita Kunz is a 60 y/o female patient who present for SOB. During my assessment of the patient today, she is calm, and cooperative. She has a comical personality. She verbalizes feeling depressed. She states her kids are un grateful and don't speak to her. The patient is tearful at times. She denies SI/HI. She says "no, I'm not suicidal at all and you're not going to get me to say that." The patient then laughs. She denies hallucinations of any kind. The patient says she needs help when she's discharged like home health and a hospital bed. She says she has a hard time getting up her steps with COPD. She says she has like 18 steps. PAST PSYCHIATRIC HISTORY Diagnoses: Depression Suicide attempts or Self-harm behavior: Denies Prior psychiatric hospitalizations: yes Substance Abuse history: Denies Previous psychiatric medications tried: zoloft, prozac Outpatient treatment: Not in years PAST MEDICAL HISTORY: None reported Family Psychiatric History: None reported or documented SOCIAL HISTORY Marital Status: Living Arrangements: alone Employment Status: Retired Access to guns/weapons: None reported Education: History of Abuse: None reported Legal History: None reported REVIEW OF SYSTEMS Constitutional: Negative for weight loss ENT: Negative for stridor Respiratory: Negative for cough or hemoptysis All other systems reviewed and are negative MENTAL STATUS EXAMINATION General Appearance and Behavior: Age appropriate, good hygiene, wearing ap propriate clothes, good eye contact, cooperative polite with questioning. Cooperation: Participating/engaged Psychomotor Behavior: unremarkable and within normal limits Mood: Depressed Affect and affective range: congruent with mood Thought Process: goal directed Thought Content: Denies Speech: Normal volume, Regular rate and rhythm, Intellectual Functioning: Average Suicidal Ideation: Denies Homicidal Ideation: Denies Impulse Control: Unimpaired Insight and Judgment: Limited insight and judgment, Memory: Normal, Attention: Normal, Orientation: Alert, oriented Assessment (1) Major Depressive Disorder (2) Generalized Anxiety Disorder Current Visit: Yes Status: Acute Treatment Plan Case management consult Effexor 25mg po daily Vistaril 25mg po BID prn anxiety Mirtazepine 7.5mg po qhs Sitter: Defer to primary Medical: per priamary Disposition: Do not recommend acute inpatient treatment. The nylon mender to give the patient outpatient resources for CBT and psychiatry Will sign off. Thank you for this consult Case staffed with Dr. Noel Medications and Allergies Allergies Allergy/AdvReac Type Severity Reaction Status Date / Time Penicillins Allergy Severe GO INTO Verified 09/15/20 12:11 SHOCK Home Medications Medication Instructions Recorded Confirmed Last Taken Type AtorvaSTATin [Lipitor] 40 mg PO QHS #30 tablet 09/12/19 09/15/20 09/15/20 Rx cloNIDine [Catapres] 0.2 mg PO BID #60 tablet 09/12/19 09/15/20 09/15/20 Rx ALBUTEROL NEB's 0.083 inh PO Q6H 10/06/19 09/15/20 Unknown History Albuterol INH(or & Nicu Only) 6.7 gm PO Q6H PRN 10/06/19 09/15/20 Unknown History AtorvaSTATin 40 mg PO DAILY 10/06/19 09/15/20 09/15/20 History Budesonide/Formoterol Fumarate 10.2 gm PO Q6H 10/06/19 09/15/20 Unknown History [Budesonide-Formoterol 160-4.5] Celecoxib [celeBREX] 200 mg PO DAILY 10/06/19 09/15/20 09/15/20 History Clopidogrel [Plavix] 75 mg PO QWEEK 10/06/19 09/15/20 Unknown History Dulaglutide [Trulicity] 0.75 mg SQ DAILY 10/06/19 09/15/20 Unknown History HumuLIN 70/30 Kwikpen 15 units SQ BID 10/06/19 09/15/20 09/15/20 History Symbicort 160-4.5 Mcg Inhaler 160 1000units Q6H 10/06/19 09/15/20 Unknown History cloNIDine [Catapres] 0.2 mg PO BID 10/06/19 09/15/20 09/15/20 History Aspirin EC [Halfprin EC] 81 mg PO QDAY #30 tablet 10/09/19 09/15/20 09/15/20 Rx Furosemide [Lasix TAB] 40 mg PO QDAY #30 tablet 10/09/19 09/15/20 Unknown Rx Sacubitril/Valsartan [Entresto 97 1 each PO DAILY #30 tablet 10/09/19 09/15/20 09/15/20 Rx mg-103 mg Tablet] Simvastatin 40 mg PO QHS #30 tablet 10/09/19 09/15/20 09/15/20 Rx Budesonide [Pulmicort Flexhaler] 90 mcg IH BID #1 aer.pow.ba 02/09/20 09/15/20 Unknown Rx Ferrous Sulfate [Feosol 325 MG tab] 325 mg PO BID #60 tablet 02/09/20 09/15/20 09/15/20 Rx Furosemide [Lasix TAB] 40 mg PO 0600,1800 #60 tablet 02/09/20 09/15/20 09/15/20 Rx Metoprolol Xl [Metoprolol 50 mg PO QDAY #30 tablet 02/09/20 09/15/20 Unknown Rx SUCCINATE ER TAB] Prednisone [predniSONE 5 mg (6-Day 5 mg PO .TAPER #1 tab.ds.pk 02/09/20 09/15/20 Unknown Rx Pack, 21 Tabs)] Arformoterol Nebu [Brovana Nebu] 15 mcg IH Q12HRT ml 07/25/20 09/15/20 09/15/20 Rx Budesonide [Pulmicort Respules] 0.5 mg IH Q12HRT nebu 07/25/20 09/15/20 Unknown Rx Famotidine [Pepcid] 20 mg PO BID tablet 07/25/20 09/15/20 09/15/20 Rx ISOSORBIDE MONOnitrate [Imdur ER] 60 mg PO QDAY #30 tablet 07/25/20 09/15/20 Unknown Rx Lispro Insulin [HumaLOG] 0 unit SUB-Q ACHS units 07/25/20 09/15/20 09/15/20 Rx hydrALAZINE [Apresoline TAB] 100 mg PO Q8HR #90 tab 07/25/20 09/15/20 09/15/20 Rx oxyCODONE /ACETAMINOPHEN [Percocet 1 tab PO Q6H PRN #20 tablet 07/25/20 09/15/20 09/15/20 Rx 5/325 mg] Mirtazapine 7.5 mg PO QHS #30 tablet 09/19/20 Unknown Rx Venlafaxine [Effexor 25mg tab] 25 mg PO DAILY #30 tablet 09/19/20 Unknown Rx hydrOXYzine PAMOATE [Vistaril] 25 mg PO BID PRN #60 capsule 09/19/20 Unknown Rx Active Meds: Active Medications Acetaminophen (Acetaminophen 325 Mg Tab) 650 mg PO Q4H PRN PRN Reason: Pain MILD(1-3)/Fever >100.5/ALAS Albuterol (Albuterol 2.5 Mg/3 Ml Nebu) 2.5 mg IH Q4HRT PRN PRN Reason: Shortness Of Breath Albuterol/Ipratropium (Ipratropium/Albuterol Sulfate 3 Ml Ampul.Neb) 1 ampul IH TIDRT [facility] Last Admin: 09/19/20 10:56 Dose: 1 ampul Documented by: Amlodipine Besylate (Amlodipine 10 Mg Tab) 10 mg PO DAILY [facility] Last Admin: 09/18/20 11:58 Dose: 10 mg Documented by: Arformoterol Tartrate (Arformoterol 15 Mcg/2 Ml Nebu) 15 mcg IH Q12HRT [facility] Last Admin: 09/19/20 10:56 Dose: 15 mcg Documented by: Aspirin (Aspirin Ec 81 Mg Tab) 81 mg PO QDAY [facility] Last Admin: 09/18/20 10:50 Dose: 81 mg Documented by: Atorvastatin Calcium (Atorvastatin 40 Mg Tab) 40 mg PO QHS [facility] Last Admin: 09/18/20 22:14 Dose: 40 mg Documented by: Budesonide (Budesonide 0.5 Mg/2 Ml Nebu) 0.5 mg IH Q12HRT [facility] Last Admin: 09/19/20 10:55 Dose: 0.5 mg Documented by: Celecoxib (Celecoxib 200 Mg Cap) 200 mg PO DAILY [facility] Last Admin: 09/18/20 10:50 Dose: 200 mg Documented by: Clonidine HCl (Clonidine 0.2 Mg Tab) 0.1 mg PO Q8H [facility] Last Admin: 09/19/20 05:50 Dose: 0.1 mg Documented by: Clopidogrel Bisulfate (Clopidogrel 75 Mg Tab) 75 mg PO QDAY [facility] Last Admin: 09/18/20 10:50 Dose: 75 mg Documented by: Famotidine (Famotidine 20 Mg Tab) 20 mg PO BID [facility] Last Admin: 09/18/20 22:14 Dose: 20 mg Documented by: Ferrous Sulfate (Ferrous Sulfate 325 Mg Tab) 325 mg PO BID [facility] Last Admin: 09/18/20 22:14 Dose: 325 mg Documented by: Fluoxetine HCl (Fluoxetine 20 Mg Cap) 20 mg PO QDAY [facility] Last Admin: 09/18/20 10:50 Dose: 20 mg Documented by: Furosemide (Furosemide 40 Mg Tab) 40 mg PO QDAY [facility] Heparin Sodium (Porcine) (Heparin 5,000 Unit/1 Ml Vial) 5,000 unit SUB-Q Q12HR [facility] Last Admin: 09/18/20 22:14 Dose: 5,000 unit Documented by: Hydralazine HCl (Hydralazine 100 Mg Tab) 100 mg PO Q8HR [facility] Last Admin: 09/19/20 05:50 Dose: 100 mg Documented by: Hydralazine HCl (Hydralazine 20 Mg/1 Ml Inj) 10 mg IV Q3H PRN PRN Reason: SBP >/=160;DBP >/=100 Hydromorphone HCl (Hydromorphone 1 Mg/1 Ml Inj) 0.5 mg IV Q3H PRN PRN Reason: Pain , Severe (7-10) Last Admin: 09/19/20 05:50 Dose: 0.5 mg Documented by: Insulin Human Isoph/Insulin Regular (Insulin Nph/Regular 70/30 Inj) 25 unit SUB-Q BIDDIAB [facility] Last Admin: 09/18/20 17:13 Dose: 25 unit Documented by: Insulin Human Lispro (Insulin Lispro 100 Unit/Ml) 0 unit SUB-Q [facility]; Protocol Last Admin: 09/19/20 08:48 Dose: Not Given Documented by: Isosorbide Mononitrate (Isosorbide Mononitrate Er 60 Mg Tab) 60 mg PO QDAY [facility] Last Admin: 09/18/20 10:50 Dose: 60 mg Documented by: Levofloxacin (Levofloxacin 750 Mg Tab) 750 mg PO Q24HR [facility]; Protocol Stop: 09/20/20 10:01 Last Admin: 09/18/20 10:51 Dose: 750 mg Documented by: Metoclopramide HCl (Metoclopramide 10 Mg/2 Ml Inj) 10 mg IV Q6H PRN PRN Reason: Nausea And Vomiting Last Admin: 09/18/20 05:40 Dose: 10 mg Documented by: Metoprolol Succinate (Metoprolol Succinate Xl 25 Mg Tab) 25 mg PO QDAY [facility] Last Admin: 09/18/20 10:50 Dose: 25 mg Documented by: Ondansetron HCl (Ondansetron 4 Mg/2 Ml Inj) 4 mg IV Q3H PRN PRN Reason: Nausea And Vomiting Last Admin: 09/18/20 22:13 Dose: 4 mg Documented by: Oxycodone/Acetaminophen (Oxycodone /Acetaminophen 5-325mg Tab) 1 tab PO Q6H PRN PRN Reason: Pain, Moderate (4-6) Last Admin: 09/16/20 00:26 Dose: 1 tab Documented by: Prednisone (Prednisone 20 Mg Tab) 40 mg PO QDAY [facility] Last Admin: 09/18/20 10:50 Dose: 40 mg Documented by: Sodium Chloride (Sodium Chloride 0.9% 10 Ml Flush Syringe) 10 ml IV BID [facility] Last Admin: 09/18/20 22:14 Dose: 10 ml Documented by: Sodium Chloride (Sodium Chloride 0.9% 10 Ml Flush Syringe) 10 ml IV PRN PRN PRN Reason: LINE FLUSH Mental Status Exam - Vital signs Last Vital Signs Temp 98.4 F 09/19/20 07:35 Pulse 68 09/19/20 07:35 Resp 22 09/19/20 07:35 BP 135/81 09/19/20 07:35 Pulse Ox 96 09/19/20 07:35 Results Result Diagrams: 09/19/20 05:17 09/19/20 05:17 Abnormal lab results 09/18/20 09/18/20 09/18/20 Range/Units 08:19 15:54 20:24 WBC (4.5-11.0) K/mm3 RBC (3.65-5.03) M/mm3 Hgb (10.1-14.3) gm/dl MCV (79-97) fl MCH (28-32) pg MCHC (30-34) % RDW (13.2-15.2) % BUN (7-17) mg/dL Glucose (65-100) mg/dL POC Glucose 109 H 111 H 164 H (70-105) mg/dL Calcium (8.4-10.2) mg/dL 09/19/20 09/19/20 09/19/20 Range/Units 05:17 05:17 07:31 WBC 12.6 H (4.5-11.0) K/mm3 RBC 5.57 H (3.65-5.03) M/mm3 Hgb 9.7 L (10.1-14.3) gm/dl MCV 61 L (79-97) fl MCH 18 L (28-32) pg MCHC 29 L (30-34) % RDW 25.5 H (13.2-15.2) % BUN 29 H (7-17) mg/dL Glucose 120 H (65-100) mg/dL POC Glucose 113 H (70-105) mg/dL Calcium 8.3 L (8.4-10.2) mg/dL All other labs normal.
[2020-09-19] MEDS ORDERED: hydrOXYzine PAMOATE 25 MG CAP PO PRN (11:42)
[2020-09-19] MEDS: VENLAFAXINE 25 MG TAB PO SCH (17:25)
--- NOTE | 2020-09-19 17:27 | Progress Note ---
Assessment and Plan Telemetry reviewed: Sinus rhythm 88. No events * Chest pain in setting of coronary artery disease status post PCI * Patient is currently chest pain-free * 12-lead reviewed normal sinus rhythm no ST segment elevation. Troponins are negative x2. Continue to trend CE's. * We will plan for ischemic eval once patient is medically stabilized. This may be pursued in the outpatient setting. * Continue ASA 81 mg p.o. daily, atorvastatin 40 mg nightly * No objection to Imdur 60 mg daily * Acute respiratory failure with hypoxia secondary to COPD exacerbation and history of ADAN * Breath sounds remain diminished bilaterally but expiratory wheezing has resolved. Patient is currently receiving albuterol nebulized treatment with supplemental oxygen. Management per primary team. * CPAP ordered nightly * Hypertensive emergency * Continue current antihypertensive regimen: Amlodipine 10 mg p.o., clonidine 0.1 mg 3 times daily, hydralazine 100 mg 3 times daily, metoprolol XL 25 mg daily * Acute on chronic heart failure reduced ejection fraction in setting of cardiomyopathy * Echocardiogram reviewed (09/15/2020): LVEF is 50 to 55% LV SF is normal. Moderate concentric LVH. RVSF is normal. Mild TR. * Patient appears to be nearing euvolemia. Continue volume optimization: Agree with Lasix 40 mg p.o. daily. * DVT prophylaxis * Heparin SQ Patient appears to be nearing euvolemia. Echocardiogram reveals no cardiomyopathy. Shortness of breath appears to be mostly of a pulmonary nature related to COPD as patient continues to use tobacco. We will plan for ischemic eval once stabilized. We will follow This patient was seen in conjunction with Dr Rula Brian who agrees with this assessment and plan of care. - Patient Problems (1) Acute respiratory failure with hypoxia Current Visit: Yes Status: Acute (2) COPD exacerbation Current Visit: Yes Status: Acute (3) Hypertensive emergency Current Visit: Yes Status: Acute (4) CAD (coronary artery disease) Current Visit: Yes Status: Chronic Qualifiers: Coronary Disease-Associated Artery/Lesion type: [place] artery [place] vs. transplanted heart: [place] heart Associated angina: with stable angina Qu alified Code(s): I25.118 - Atherosclerotic heart disease of [place] coronary artery with other forms of angina pectoris (5) Stented coronary artery Current Visit: Yes Status: Chronic (6) Acute on chronic HFrEF (heart failure with reduced ejection fraction) Current Visit: Yes Status: Acute (7) DVT prophylaxis Current Visit: No Status: Acute (8) Anemia Current Visit: Yes Status: Acute (9) Cardiomyopathy Current Visit: No Status: Chronic Qualifiers: Cardiomyopathy type: ischemic Qualified Code(s): I25.5 - Ischemic cardiomyopathy (10) Diabetes mellitus, type 2 Current Visit: Yes Status: Chronic (11) HTN (hypertension) Current Visit: Yes Status: Chronic Qualifiers: Hypertension type: essential hypertension Qualified Code(s): I10 - Essential (primary) hypertension (12) Hyperlipidemia Current Visit: Yes Status: Chronic Qualifiers: Hyperlipidemia type: mixed hyperlipidemia Qualified Code(s): E78.2 - Mixed hyperlipidemia (13) ADAN (obstructive sleep apnea) Current Visit: Yes Status: Chronic (14) Tobacco use Current Visit: Yes Status: Chronic Subjective Date of service: 09/19/20 Principal diagnosis: COPD Exacerbation, ADAN/OHS, A/C HFrEF Interval history: Patient resting comfortably in bed. No chest pain overnight and patient reports significant improvement in shortness of breath. She is currently on supplemental O2 via nasal cannula at 1L/Min. She is on home O2 3lpm via [place]. Telemetry reviewed: Sinus rhythm 85. Episode of 3 beat V. tach noted overnight. Objective Last Vital Signs Temp 97.3 F L 09/19/20 16:29 Pulse 76 09/19/20 16:29 Resp 18 09/19/20 16:29 BP 150/76 09/19/20 16:29 Pulse Ox 98 09/19/20 16:29 - Physical Examination General: No Apparent Distress HEENT: Positive: EOMI, Normocephaly, Mucus Membranes Moist Neck: Positive: neck supple, trachea midline. Negative: JVD/HJR Cardiac: Positive: Reg Rate and Rhythm, S1/S2 Lungs: Positive: clear to auscultation, Normal Breath Sounds Neuro: Positive: Grossly Intact Abdomen: Positive: Soft. Negative: Tender Skin: Negative: Rash Extremities: Present: upper extr. pulses, lower extr. pulses, +1 Edema (BLE) - Labs and Meds CBC 09/19/20 Range/Units 05:17 WBC 12.6 H (4.5-11.0) K/mm3 RBC 5.57 H (3.65-5.03) M/mm3 Hgb 9.7 L (10.1-14.3) gm/dl Hct 34.0 (30.3-42.9) % Plt Count 269 (140-440) K/mm3 Comprehensive Metabolic Panel 09/19/20 Range/Units 05:17 Sodium 137 (137-145) mmol/L Potassium 4.1 D (3.6-5.0) mmol/L Chloride 100.7 (98-107) mmol/L Carbon Dioxide 23 (22-30) mmol/L BUN 29 H (7-17) mg/dL Creatinine 0.8 (0.6-1.2) mg/dL Glucose 120 H (65-100) mg/dL Calcium 8.3 L (8.4-10.2) mg/dL - Imaging and Cardiology EKG: report reviewed, image reviewed Echo: report reviewed (09/15/2020 - EF 50-55%, mod concentric LVH) - Telemetry EKG Rhythm: Sinus Rhythm - EKG Sinus rhythms and dysrhythmias: sinus rhythm
[2020-09-19] MEDS ORDERED: MIRTAZAPINE 15 MG TAB PO SCH (22:00)
[2020-09-20] MEDS: hydrALAZINE 100 MG TAB PO SCH ×2 (06:58→13:22)
[2020-09-20] MEDS: cloNIDine 0.2 MG TAB PO SCH ×2 (07:01→13:22)
[2020-09-20] MEDS: ARFORMOTEROL 15 MCG/2 ML NEBU IH SCH ×2 (07:44→21:37)
[2020-09-20] MEDS: IPRATROPIUM/ALBUTEROL SULFATE 3 ML AMPUL.NEB IH SCH ×3 (07:44→21:37)
[2020-09-20] MEDS: BUDESONIDE 0.5 MG/2 ML NEBU IH SCH ×2 (07:44→21:37)
[2020-09-20] MEDS: INSULIN LISPRO 100 UNIT/ML SUB-Q SCH ×3 (08:31→17:17)
[2020-09-20] MEDS: oxyCODONE /ACETAMINOPHEN 5-325MG TAB PO PRN (09:54)
[2020-09-20] MEDS: FUROSEMIDE 40 MG TAB PO SCH (09:55)
[2020-09-20] MEDS: METOPROLOL SUCCINATE XL 25 MG TAB PO SCH (09:55)
[2020-09-20] MEDS: predniSONE 20 MG TAB PO SCH (09:55)
[2020-09-20] MEDS: ASPIRIN EC 81 MG TAB PO SCH (09:55)
[2020-09-20] MEDS: CELECOXIB 200 MG CAP PO SCH (09:56)
[2020-09-20] MEDS: CLOPIDOGREL 75 MG TAB PO SCH (09:56)
[2020-09-20] MEDS: levoFLOXacin 750 MG TAB PO SCH (09:56)
[2020-09-20] MEDS: amLODIPine 10 MG TAB PO SCH (09:56)
[2020-09-20] MEDS: VENLAFAXINE 25 MG TAB PO SCH (09:57)
[2020-09-20] MEDS: SACUBITRIL/VALSARTAN 49-51 MG TAB PO SCH (09:57)
[2020-09-20] MEDS: FERROUS SULFATE 325 MG TAB PO SCH (09:57)
[2020-09-20] MEDS: FAMOTIDINE 20 MG TAB PO SCH (09:57)
[2020-09-20] MEDS: HEPARIN 5,000 UNIT/1 ML VIAL SUB-Q SCH (09:57)
[2020-09-20] MEDS: FLUoxetine 20 MG CAP PO SCH (09:57)
[2020-09-20 11:05] LABS: Blood Urea Nitrogen 21 mg/dL (7-17); Hemolysis Index 4
[2020-09-20 11:11] LABS: BUN/Creatinine Ratio 30
--- NOTE | 2020-09-20 12:28 | Progress Note ---
Assessment and Plan Telemetry reviewed: Sinus rhythm 88. No events * Chest pain in setting of coronary artery disease status post PCI * Patient is currently chest pain-free. No chest pain reported overnight. * 12-lead reviewed normal sinus rhythm no ST segment elevation. Troponins are negative x2. Continue to trend CE's. * We will plan for ischemic eval once patient is medically stabilized. This may be pursued in the outpatient setting. No Lexiscan testing in setting of acute exacerbation of obstructive pulmonary disease * Continue ASA 81 mg p.o. daily, atorvastatin 40 mg nightly * No objection to Imdur 60 mg daily * Acute respiratory failure with hypoxia secondary to COPD exacerbation and history of ADAN * Breath sounds remain diminished bilaterally with bilateral expiratory wheeze. Patient is currently receiving albuterol nebulized treatment with supplemental oxygen. Management per primary team. * CPAP ordered nightly * Hypertensive emergency * Optimize antihypertensive regimen: Discontinue metoprolol XL in setting of COPD exacerbation requiring beta agonist therapy. Initiate lisinopril 10 mg p.o. daily. Continue amlodipine 10 mg p.o., clonidine 0.1 mg 3 times daily, hydralazine 100 mg 3 times daily. * Acute on chronic heart failure reduced ejection fraction in setting of cardiomyopathy * Echocardiogram reviewed (09/15/2020): LVEF is 50 to 55% LV SF is normal. Moderate concentric LVH. RVSF is normal. Mild TR. * Patient appears to be nearing euvolemia. Continue volume optimization: Agree with Lasix 40 mg p.o. daily. * Patient has new complaint of right lower extremity tenderness. Will obtain BLE duplex ultrasound to rule out DVT. * DVT prophylaxis * Heparin SQ Patient appears to be nearing euvolemia. Echocardiogram reveals no cardiomyopathy. Shortness of breath appears to be mostly of a pulmonary nature related to COPD as patient continues to use tobacco. We will plan for ischemic eval once stabilized. We will follow This patient was seen in conjunction with Dr Rula Brian who agrees with this assessment and plan of care. - Patient Problems (1) Acute respiratory failure with hypoxia Current Visit: Yes Status: Acute (2) COPD exacerbation Current Visit: Yes Status: Acute (3) Hypertensive emergency Current Visit: Yes Status: Acute (4) CAD (coronary artery disease) Current Visit: Yes Status: Chronic Qualifiers: Coronary Disease-Associated Artery/Lesion type: [place] artery [place] vs. transplanted heart: [place] heart Associated angina: with stable angina Qualified Code(s): I25.118 - Atherosclerotic heart disease of [place] coronary artery with other forms of angina pectoris (5) Stented coronary artery Current Visit: Yes Status: Chronic (6) Acute on chronic HFrEF (heart failure with reduced ejection fraction) Current Visit: Yes Status: Acute (7) DVT prophylaxis Current Visit: No Status: Acute (8) Anemia Current Visit: Yes Status: Acute (9) Cardiomyopathy Current Visit: No Status: Chronic Qualifiers: Cardiomyopathy type: ischemic Qualified Code(s): I25.5 - Ischemic cardiomyopathy (10) Diabetes mellitus, type 2 Current Visit: Yes Status: Chronic (11) HTN (hypertension) Current Visit: Yes Status: Chronic Qualifiers: Hypertension type: essential hypertension Qualified Code(s): I10 - Essential (primary) hypertension (12) Hyperlipidemia Current Visit: Yes Status: Chronic Qualifiers: Hyperlipidemia type: mixed hyperlipidemia Qualified Code(s): E78.2 - Mixed hyperlipidemia (13) ADAN (obstructive sleep apnea) Current Visit: Yes Status: Chronic (14) Tobacco use Current Visit: Yes Status: Chronic Subjective Date of service: 09/20/20 Principal diagnosis: COPD Exacerbation, ADAN/OHS, A/C HFrEF Interval history: Patient resting comfortably in bed. No chest pain overnight. Patient is currently on supplemental O2 at 3 L/min. She reports shortness of breath is mildly worse overnight. Telemetry reviewed: Sinus rhythm 80. No events Objective Last Vital Signs Temp 98.7 F 09/20/20 08:08 Pulse 66 09/20/20 09:56 Resp 18 09/20/20 08:08 BP 145/87 09/20/20 09:56 Pulse Ox 94 09/20/20 08:08 - Physical Examination General: No Apparent Distress HEENT: Positive: EOMI, Normocephaly, Mucus Membranes Moist Neck: Positive: neck supple, trachea midline. Negative: JVD/HJR Cardiac: Positive: Reg Rate and Rhythm, S1/S2 Lungs: Positive: Decreased Breath Sounds, Wheezes (Breath sounds are decreased in the bases with bilateral expiratory wheeze patient reports breathing treatment approximately 1 hour prior to interview) Neuro: Positive: Grossly Intact Abdomen: Positive: Soft. Negative: Tender Skin: Negative: Rash Extremities: Present: upper extr. pulses, lower extr. pulses, +1 Edema (BLE) - Labs and Meds Comprehensive Metabolic Panel 09/20/20 Range/Units 09:10 Sodium 138 (137-145) mmol/L Potassium 3.7 (3.6-5.0) mmol/L Chloride 101.7 (98-107) mmol/L Carbon Dioxide 29 (22-30) mmol/L BUN 21 H (7-17) mg/dL Creatinine 0.7 (0.6-1.2) mg/dL Glucose 126 H (65-100) mg/dL Calcium 8.0 L (8.4-10.2) mg/dL - Imaging and Cardiology EKG: report reviewed, image reviewed Echo: report reviewed (09/15/2020 - EF 50-55%, mod concentric LVH) - Telemetry EKG Rhythm: Sinus Rhythm - EKG Sinus rhythms and dysrhythmias: sinus rhythm
[2020-09-20] MEDS: INSULIN NPH/REGULAR 70/30 INJ SUB-Q SCH ×2 (12:43→17:17)
[2020-09-20] MEDS ORDERED: LISINOPRIL 10 MG TAB PO SCH (13:00)
[2020-09-20 13:11] VITALS: BP 113/65
--- NOTE | 2020-09-20 15:03 | Discharge Summary ---
Providers - Providers Date of Admission: 09/17/20 14:50 Date of discharge: 09/20/20 Attending physician: LAI MEMBRENO 09/15/20 14:50 Consult to Cardiology [CONS] Routine Consulting Provider: MAGGI ROBERTS Reason For Exam: CHF 09/15/20 23:11 Consult to Physician [CONS] Routine Comment: Consulting Provider: MAGGI ROBERTS Physician Instructions: Reason For Exam: Acute coronary syndrome 09/19/20 07:54 Consult to Mental Health [CONS] Routine Reason For Exam: Depression 09/19/20 11:46 Consult to Case Management [CONS] Routine Services Needed at Discharge: Home Health Services Notified:: CASE MANAGEMENT Additional Physician Instructions: The patient states she needs a home health aid, and a hospital bed. The patient states she has 18 steps in her home and she can't get to her bed. She says she gets too SOB 09/19/20 12:05 Physical Therapy Evaluation and Treat [CONS] Urgent Comment: Reason For Exam: Debility 09/19/20 12:06 Occupational Therapy Evaluate and Treat [CONS] Urgent Comment: Reason For Exam: Weakness Primary care physician: FEATHER SHAPER Hospitalization Condition: Stable Hospital course: This patient is a 60-year-old female with a significant history of coronary artery disease status post PCI in 2019, cardiomyopathy with preserved EF on recent echocardiogram, insulin-dependent diabetic, hypertension, hyperlipidemia, tobacco use, COPD presents to ER with a chief complaint of chest pain and shortness of breath x1 week and bilateral lower extremity edema. Patient states she has gained approximately 12 pounds over the last week. Shortness of breath has continued to worsen in spite of using albuterol MDI approximately 4 times a day. Chest pain she describes as substernal 7 out of 10 and sharp, intermittent, worse with exertion, no palliative factors. Patient also endorses orthopnea. Patient denies any weakness or dizziness abdominal pain nausea vomiting diarrhea, recent illness or known exposures. Of note patient uses CPAP for ADAN at night and follows up with Dr. Dyer for her COPD. . Patient was admitted to the hospital for further evaluation and management. Patient initiated on IV Lasix every 12 hours and potassium, cardiology was consulted for further evaluation and management. [facility] (2019): PCI with DIANELYS of mid ramus 70%. Echo (07/22/2020): EF 50 to 55%. Daily clinical course: 5/8 feels better, states she is less short of breath, complains of cough with yellowish sputum, denies fever or chills, also complains of feeling depressed and frequently crying without any reason. She denies any chest pain, or abdominal pain. Cardiology recommended medical management. Continue to monitor IV Lasix, strict ins and O's, daily weight. Patient also placed on albuterol nebulizer breathing treatment as needed. 09/19. Patient seen and examined at bedside this morning. In a good mood. Psychiatry consulted for noted depression with questionable suicidal ideation. Remains on diuretics. Cardiology following. Vitals reviewed-SBP in the 130s. 09/20: Blood glucose noted to be low 50s this morning. Insulin dose has been adjusted to prevent hypoglycemia. Patient was evaluated by psychiatry and recommended no acute inpatient treatment. Cardiology recommended medical management and recommended further cardiac work-up as outpatient. Echocardiogram this admission showed EF 50 to 55%. Patient is resting today with 3 L nasal cannula which is her baseline. Evaluated by physical therapy and recommended home health. Patient will be discharged home with home health and outpatient follow-up. Disposition: DC/[place]- HOME UNDER HOME [facility] Final Discharge Diagnosis (Prints w/discharge instructions): Acute on chronic diastolic heart failure. Acute COPD exacerbation. Chronic hypoxic respiratory failure. Coronary artery disease with history of PCI. Hypertension. Major depressive disorder. Generalized anxiety disorder. Hyperlipidemia. History of ADAN. Hyperkalemia, resolved. Diabetes mellitus type 2 on insulin A1c 5.7. Morbid obesity. Tobacco abuse. Hypoglycemia, due to insulin -dose also adjusted Core Measure Documentation - Palliative Care Palliative Care/ Comfort Measures: Not Applicable - Core Measures Any of the following diagnoses?: history only Exam - Physical Exam Narrative exam: VITAL SIGNS: Reviewed. GENERAL: Awake, morbidly obese HEAD: No signs of head trauma. EYES: Pupils are equal. Extraocular motions intact. MOUTH: Oropharynx is normal. NECK: No adenopathy, no JVD. CHEST: Diminished breath sounds bilaterally with trace wheeze CARDIAC: normal S1 and S2, without murmurs, gallops, or rubs. ABDOMEN: Soft, non tender and non distended. No rebound or guarding, and no masses palpated. Bowel Sounds normal. MUSCULOSKELETAL: Slight edema NEUROLOGIC EXAM: Alert and oriented x3. No focal neurologic deficits SKIN: No obvious lesions - Constitutional Vitals: Temp Pulse Resp BP Pulse Ox 98.7 F 71 18 113/65 97 09/20/20 08:08 09/20/20 13:45 09/20/20 13:45 09/20/20 13:24 09/20/20 12:42 Plan Activity: advance as tolerated Weight Bearing Status: Weight Bear as Tolerated Diet: low fat, low salt, diabetic Special Instructions: record daily weights, record blood sugar diary, physical therapy, home oxygen via (3L n/c) Additional Instructions: Follow-up with bicycle mechanic in 1 week. Please check your blood glucose daily before meals and at bedtime Follow up with: PRIMARY CARE, [Primary Care Provider] - 7 Days COMPA ELLIS MD [Staff Physician] - 7 Days Prescriptions: Mirtazapine 7.5 mg PO QHS #30 tablet amLODIPine 10 mg PO DAILY #30 tablet Venlafaxine [Effexor 25mg tab] 25 mg PO DAILY #30 tablet Prednisone [predniSONE 5 mg (6-Day Pack, 21 Tabs)] 5 mg PO .TAPER #1 tab.ds.pk FLUoxetine [PROzac] 20 mg PO QDAY #30 capsule hydrOXYzine PAMOATE [Vistaril] 25 mg PO BID PRN #60 capsule PRN Reason: Anxiety
--- NOTE | 2020-09-20 16:51 | Vascular Lab Report ---
DUPLEX DOPPLER LOWER EXTREMITY VEINS, BILATERAL INDICATION / CLINICAL INFORMATION: Bilateral leg pain. TECHNIQUE: Duplex doppler imaging was performed through the veins of both lower extremities using venous jonas kalpesh and other maneuvers. COMPARISON: None available. FINDINGS: RIGHT COMMON FEMORAL VEIN: Negative. RIGHT FEMORAL VEIN: Negative. RIGHT POPLITEAL VEIN: Negative. RIGHT CALF VEINS: Negative. LEFT COMMON FEMORAL VEIN: Negative. LEFT FEMORAL VEIN: Negative. LEFT POPLITEAL VEIN: Negative. LEFT CALF VEINS: Negative. ADDITIONAL FINDINGS: There is no evidence of a popliteal cyst or other significant abnormality. IMPRESSION: No sonographic evidence for DVT in either lower extremity. Signer Name: Prashanth Cantrell MD Signed: 09/20/2020 4:46 PM Workstation Name: [id number]
== END 2020-09-20 22:12 | disposition home health service (06) | DRG 291 ==
LOC: ED 12:08 → 4A 13:38 → OBSVTOIN 09-17 14:50
PROVIDERS: ADMIT Internal Medicine; ATTEND Internal Medicine
PROC: 5A09357 Assistance with Respiratory Ventilation, Less than 24 Consecutive Hours, Continuous Positive Airway Pressure (ICD-10-PCS; principal; 2020-09-16)
PROC: 5A09357 Assistance with Respiratory Ventilation, Less than 24 Consecutive Hours, Continuous Positive Airway Pressure (ICD-10-PCS; 2020-09-18)
DX: I11.0 Hypertensive heart disease with heart failure (principal); J96.21 Acute and chronic respiratory failure with hypoxia; I16.1 Hypertensive emergency; J44.1 Chronic obstructive pulmonary disease with (acute) exacerbation; E66.2 Morbid (severe) obesity with alveolar hypoventilation; I47.1 Supraventricular tachycardia; Z68.43 Body mass index [BMI] 50.0-59.9, adult; I50.43 Acute on chronic combined systolic (congestive) and diastolic (congestive) heart failure; I42.9 Cardiomyopathy, unspecified; I25.10 Atherosclerotic heart disease of native coronary artery without angina pectoris; D50.9 Iron deficiency anemia, unspecified; I27.20 Pulmonary hypertension, unspecified; F17.200 Nicotine dependence, unspecified, uncomplicated; E78.5 Hyperlipidemia, unspecified; F32.9 Major depressive disorder, single episode, unspecified; F41.1 Generalized anxiety disorder; E87.5 Hyperkalemia; E11.649 Type 2 diabetes mellitus with hypoglycemia without coma; Z90.710 Acquired absence of both cervix and uterus; Z86.718 Personal history of other venous thrombosis and embolism; Z79.01 Long term (current) use of anticoagulants; Z88.0 Allergy status to penicillin; Z71.6 Tobacco abuse counseling; Z79.899 Other long term (current) drug therapy
CPT/HCPCS: 36415; 71045; 80048; 80053; 81001; 82962; 83036; 83735; 83880; 84484; 85007; 85025; 85027; 85610; 85730; 87641; 93005; 93306; 93970; 94640; 96365; 99406; G0378; A9270-GY; J0360; J1170; J1644; J1815; J1940; J1956; J2270; J2405; J2765; J2930; J7512

== ENCOUNTER 2020-11-15 18:09 | Inpatient (IN) | payer BC ==
--- NOTE | 2020-11-15 23:22 | Emergency Department Report ---
ED Shortness of Breath HPI - General Chief Complaint: Dyspnea/Respdistress Stated Complaint: DIFF BREATHING Time Seen by Provider: 11/15/20 23:09 Source: patient Mode of arrival: Ambulatory Limitations: No Limitations - History of Present Illness Initial Comments: Chief complaint: " Trouble breathing. I know I have fluid around my heart." HPI: This is a 60-year-old female with history of insulin-dependent diabetes mellitus, hypertension, dyslipidemia, COPD, tobacco dependence, CAD status post PCI, diastolic heart failure with ejection fraction 50 to 55% who presents with shortness of breath. Patient ran out of her oxygen at home on yesterday. She felt so uncomfortable that she felt as if she was "going to ". She has productive cough. She has increased foot swelling. While in the waiting area during this ED encounter, she developed chest pain left-sided. She has a sensation of something sitting on her chest. She also has mild global headache. Patient underwent left heart cardiac catheter authorization on June 2018: She underwent PCI status post non-ST elevation IA MD Complaint: shortness of breath, cough, chest pain -: Gradual, days(s) (Several days worse on yesterday) Severity: moderate Consistency: constant Improves With: rest Worsens With: nothing Known History Of: COPD, other (Diastolic heart failure, tobacco dependence, CAD) Context: smoke/fume exposure Associated Symptoms: chest pain, cough, sputum production, other (Headache) - Related Data Home Medications Medication Instructions Recorded Confirmed Last Taken Budesonide/Formoterol Fumarate 10.2 gm PO Q6H 10/06/19 09/15/20 Unknown [Budesonide-Formoterol 160-4.5] Celecoxib [celeBREX] 200 mg PO DAILY 10/06/19 09/15/20 09/15/20 Clopidogrel [Plavix] 75 mg PO QWEEK 10/06/19 09/15/20 Unknown Dulaglutide [Trulicity] 0.75 mg SQ DAILY 10/06/19 09/15/20 Unknown HumuLIN 70/30 Kwikpen 15 units SQ BID 10/06/19 09/15/20 09/15/20 Symbicort 160-4.5 Mcg Inhaler 160 1000units Q6H 10/06/19 09/15/20 Unknown cloNIDine [Catapres] 0.2 mg PO BID 10/06/19 09/15/20 09/15/20 Previous Rx's Medication Instructions Recorded Last Taken Type AtorvaSTATin [Lipitor] 40 mg PO QHS #30 tablet 09/12/19 09/15/20 Rx Aspirin EC [Halfprin EC] 81 mg PO QDAY #30 tablet 10/09/19 09/15/20 Rx Sacubitril/Valsartan [Entresto 97 1 each PO DAILY #30 tablet 10/09/19 09/15/20 Rx mg-103 mg Tablet] Ferrous Sulfate [Feosol 325 MG tab] 325 mg PO BID #60 tablet 02/09/20 09/15/20 Rx Furosemide [Lasix TAB] 40 mg PO 0600,1800 #60 tablet 02/09/20 09/15/20 Rx Arformoterol Nebu [Brovana Nebu] 15 mcg IH Q12HRT ml 07/25/20 09/15/20 Rx Budesonide [Pulmicort Respules] 0.5 mg IH Q12HRT nebu 07/25/20 Unknown Rx Famotidine [Pepcid] 20 mg PO BID tablet 07/25/20 09/15/20 Rx ISOSORBIDE MONOnitrate [Imdur ER] 60 mg PO QDAY #30 tablet 07/25/20 Unknown Rx Lispro Insulin [HumaLOG] 0 unit SUB-Q ACHS units 07/25/20 09/15/20 Rx hydrALAZINE [Apresoline TAB] 100 mg PO Q8HR #90 tab 07/25/20 09/15/20 Rx oxyCODONE /ACETAMINOPHEN [Percocet 1 tab PO Q6H PRN #20 tablet 07/25/20 09/15/20 Rx 5/325 mg] Mirtazapine 7.5 mg PO QHS #30 tablet 09/19/20 Unknown Rx Venlafaxine [Effexor 25mg tab] 25 mg PO DAILY #30 tablet 09/19/20 Unknown Rx hydrOXYzine PAMOATE [Vistaril] 25 mg PO BID PRN #60 capsule 09/19/20 Unknown Rx FLUoxetine [PROzac] 20 mg PO QDAY #30 capsule 09/20/20 Unknown Rx Prednisone [predniSONE 5 mg (6-Day 5 mg PO .TAPER #1 tab.ds.pk 09/20/20 Unknown Rx Pack, 21 Tabs)] amLODIPine 10 mg PO DAILY #30 tablet 09/20/20 Unknown Rx Allergies Allergy/AdvReac Type Severity Reaction Status Date / Time Penicillins Allergy Severe GO INTO Verified 09/15/20 12:11 SHOCK ED Review of Systems ROS: Stated complaint: DIFF BREATHING Other details as noted in HPI Comment: All other systems reviewed and negative Constitutional: denies: fever, malaise Respiratory: cough, SOB with exertion Cardiovascular: chest pain, edema ED Past Medical Hx - Past Medical History Previous Medical History?: Yes Hx Hypertension: Yes Hx Heart Attack/AMI: No Hx Congestive Heart Failure: Yes Hx Diabetes: Yes Hx Deep Vein Thrombosis: Yes (left leg) Hx Pulmonary Embolism: No Hx Liver Disease: No Hx Sickle Cell Disease: No Hx Arthritis: Yes Hx Asthma: No Hx COPD: Yes Hx Tuberculosis: No Hx HIV: No Additional medical history: CAD - Surgical History Past Surgical History?: Yes Hx Coronary Stent: Yes (2004, 2007, 09/2015) Hx Pacemaker: No Hx Internal Defibrillator: No Hx Cholecystectomy: Yes Hx Appendectomy: Yes Additional Surgical History: HYSTERECTOMY. TONSILLECTOMY - Social History Smoking Status: Current Every Day Smoker Substance Use Type: None - Medications Home Medications: Home Medications Medication Instructions Recorded Confirmed Last Taken Type AtorvaSTATin [Lipitor] 40 mg PO QHS #30 tablet 09/12/19 09/15/20 09/15/20 Rx Budesonide/Formoterol Fumarate 10.2 gm PO Q6H 10/06/19 09/15/20 Unknown History [Budesonide-Formoterol 160-4.5] Celecoxib [celeBREX] 200 mg PO DAILY 10/06/19 09/15/20 09/15/20 History Clopidogrel [Plavix] 75 mg PO QWEEK 10/06/19 09/15/20 Unknown History Dulaglutide [Trulicity] 0.75 mg SQ DAILY 10/06/19 09/15/20 Unknown History HumuLIN 70/30 Kwikpen 15 units SQ BID 10/06/19 09/15/20 09/15/20 History Symbicort 160-4.5 Mcg Inhaler 160 1000units Q6H 10/06/19 09/15/20 Unknown History cloNIDine [Catapres] 0.2 mg PO BID 10/06/19 09/15/20 09/15/20 History Aspirin EC [Halfprin EC] 81 mg PO QDAY #30 tablet 10/09/19 09/15/20 09/15/20 Rx Sacubitril/Valsartan [Entresto 97 1 each PO DAILY #30 tablet 10/09/19 09/15/20 09/15/20 Rx mg-103 mg Tablet] Ferrous Sulfate [Feosol 325 MG tab] 325 mg PO BID #60 tablet 02/09/20 09/15/20 09/15/20 Rx Furosemide [Lasix TAB] 40 mg PO 0600,1800 #60 tablet 02/09/20 09/15/20 09/15/20 Rx Arformoterol Nebu [Brovana Nebu] 15 mcg IH Q12HRT ml 07/25/20 09/15/20 09/15/20 Rx Budesonide [Pulmicort Respules] 0.5 mg IH Q12HRT nebu 07/25/20 09/15/20 Unknown Rx Famotidine [Pepcid] 20 mg PO BID tablet 07/25/20 09/15/20 09/15/20 Rx ISOSORBIDE MONOnitrate [Imdur ER] 60 mg PO QDAY #30 tablet 07/25/20 09/15/20 Unknown Rx Lispro Insulin [HumaLOG] 0 unit SUB-Q ACHS units 07/25/20 09/15/20 09/15/20 Rx hydrALAZINE [Apresoline TAB] 100 mg PO Q8HR #90 tab 07/25/20 09/15/20 09/15/20 Rx oxyCODONE /ACETAMINOPHEN [Percocet 1 tab PO Q6H PRN #20 tablet 07/25/20 09/15/20 09/15/20 Rx 5/325 mg] Mirtazapine 7.5 mg PO QHS #30 tablet 09/19/20 Unknown Rx Venlafaxine [Effexor 25mg tab] 25 mg PO DAILY #30 tablet 09/19/20 Unknown Rx hydrOXYzine PAMOATE [Vistaril] 25 mg PO BID PRN #60 capsule 09/19/20 Unknown Rx FLUoxetine [PROzac] 20 mg PO QDAY #30 capsule 09/20/20 Unknown Rx Prednisone [predniSONE 5 mg (6-Day 5 mg PO .TAPER #1 tab.ds.pk 09/20/20 Unknown Rx Pack, 21 Tabs)] amLODIPine 10 mg PO DAILY #30 tablet 09/20/20 Unknown Rx ED Physical Exam - General Limitations: No Limitations General appearance: alert, other (Moderate work of breathing, has difficulty completing sentences, tearful upset) - Head Head exam: Present: atraumatic, normocephalic - Eye Eye exam: Present: normal appearance - ENT ENT exam: Present: mucous membranes moist - Neck Neck exam: Present: normal inspection, full ROM - Respiratory Respiratory exam: Present: respiratory distress, decreased breath sounds, prolonged expiratory. Absent: wheezes, rales, rhonchi - Cardiovascular Cardiovascular Exam: Present: regular rate, normal rhythm, normal heart sounds. Absent: systolic murmur, diastolic murmur, rubs, gallop - GI/Abdominal GI/Abdominal exam: Present: soft, normal bowel sounds. Absent: distended, tenderness, guarding, rebound - Extremities Exam Extremities exam: Present: pedal edema - Neurological Exam Neurological exam: Present: alert, oriented X3 - Psychiatric Psychiatric exam: Present: normal affect, depressed. Absent: homicidal ideation, suicidal ideation - Skin Skin exam: Present: warm, dry, intact, normal color. Absent: rash ED Course Vital Signs 11/15/20 11/15/20 11/15/20 18:16 23:14 23:15 Temperature 98.3 F Pulse Rate 105 H 99 H Pulse Rate [ Bilateral Throughout] Respiratory 25 H Rate Respiratory Rate [Bilateral Throughout] Blood Pressure 214/142 Blood Pressure 115/79 [Right] O2 Sat by Pulse 100 93 99 Oximetry 11/15/20 11/16/20 11/16/20 23:30 00:08 00:23 Temperature Pulse Rate 98 H Pulse Rate [ 101 H 100 H Bilateral Throughout] Respiratory 19 Rate Respiratory 15 16 Rate [Bilateral Throughout] Blood Pressure 66/50 Blood Pressure [Right] O2 Sat by Pulse 96 Oximetry 11/16/20 01:13 Temperature Pulse Rate Pulse Rate [ Bilateral Throughout] Respiratory 18 Rate Respiratory Rate [Bilateral Throughout] Blood Pressure Blood Pressure [Right] O2 Sat by Pulse Oximetry ED Medical Decision Making - Lab Data Result diagrams: 11/16/20 00:07 11/16/20 00:07 - EKG Data -: EKG Interpreted by Me EKG shows normal: sinus rhythm, axis, QRS complexes Rate: tachycardia - EKG Data 11/15/20 23:21 EKG obtained 1828 EKG interpreted by me Sinus tachycardia rate 100 bpm normal axis prolonged QTC enlarged P waves, no ST elevation nonischemic T wave pattern 11/15/20 23:22 EKG unchanged from 09/15/2020 - Radiology Data Radiology results: report reviewed Findings Reporting MD: Rafi Masters Dictation Time: November 15, 2020 22:55 Instrument Operator: Not available Paper [employer] 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 HEART / MEDIASTINUM: Unchanged prominent cardiac silhouette. LUNGS / PLEURA: Mild pulmonary vascular congestion. Peribronchial thickening. No definite airspace disease. Left midlung zone parenchymal opacities favored to represent atelectasis. Costophrenic sulci are sharp. No pneumothorax. ADDITIONAL FINDINGS: No significant additional findings. IMPRESSION: 1. Pulmonary vascular congestion. Otherwise, no significant abnormality. Signer Name: Rafi Masters MD Signed: 11/15/2020 10:55 PM Workstation Name: [id number] - Medical Decision Making 1. COPD exacerbation: Treated with IV steroids, Levaquin, DuoNeb. 2. Stable angina. After 6 hours observation troponin negative. EKG unchanged from 2 months prior. No ischemic changes. 3. Acute diastolic heart failure: IV furosemide initiated emergency department, antihypertensive medications initiated. Patient is admitted to hospitalist service Critical care attestation.: If time is entered above; I have spent that time in minutes in the direct care of this critically ill patient, excluding procedure time. ED Disposition Clinical Impression: COPD exacerbation, Chronic respiratory failure, Stable angina, Acute diastolic heart failure Disposition: OP ADMIT IP TO THIS HOSP Is pt being admited?: Yes Does the pt Need Aspirin: No Condition: Stable Instructions: Angina, [id number], Chronic Obstructive Pulmonary Disease (ED)
[2020-11-15] MEDS ORDERED: FUROSEMIDE 40 MG/4 ML INJ IV ONE (23:24)
[2020-11-15] MEDS ORDERED: levoFLOXacin 500 MG TAB PO ONE (23:24)
[2020-11-15] MEDS ORDERED: IPRATROPIUM/ALBUTEROL SULFATE 3 ML AMPUL.NEB IH ONE (23:24)
[2020-11-15] MEDS ORDERED: ASPIRIN 81 MG TAB CHEW PO ONE (23:25)
[2020-11-15] MEDS ORDERED: ONDANSETRON 4 MG/2 ML INJ IV ONE (23:25)
[2020-11-15] MEDS ORDERED: MORPHINE 4 MG/1 ML INJ IV ONE (23:25)
[2020-11-15] MEDS ORDERED: methylPREDNISolone Sod Succinate 125 MG/2 ML INJ IV ONE (23:27)
--- NOTE | 2020-11-15 23:59 | XRay Report ---
XR chest 1V ap INDICATION / CLINICAL INFORMATION: Dyspnea COMPARISON: September 15, 2020 FINDINGS: SUPPORT DEVICES: None. HEART / MEDIASTINUM: Unchanged prominent cardiac silhouette. LUNGS / PLEURA: Mild pulmonary vascular congestion. Peribronchial thickening. No definite airspace di sease. Left midlung zone parenchymal opacities favored to represent atelectasis. Costophrenic sulci a re sharp. No pneumothorax. ADDITIONAL FINDINGS: No significant additional findings. IMPRESSION: 1. Pulmonary vascular congestion. Otherwise, no significant abnormality. Signer Name: Rafi Masters MD Signed: 11/15/2020 11:55 PM Workstation Name: [id number]
[2020-11-16 00:48] LABS: Blood Urea Nitrogen 11 mg/dL (7-17); Calcium 8.7 mg/dL (8.4-10.2); Hemolysis Index 63
[2020-11-16 00:49] LABS: BUN/Creatinine Ratio 16
[2020-11-16 00:55] LABS: Basophils # (Auto) 0.2 K/mm3 (0.0-0.1); Eosinophils # (Auto) 0.5 K/mm3 (0.0-0.4); Eosinophils % (Auto) 6.7 % (0.0-4.3); Mean Corpuscular HGB Conc 29 % (30-34); Monocytes # (Auto) 0.7 K/mm3 (0.0-0.8); Monocytes % (Auto) 9.7 % (0.0-7.3); Platelet Count 320 K/mm3 (140-440); Red Blood Count 5.66 M/mm3 (3.65-5.03)
[2020-11-16 00:56] LABS: Basophils % (Auto) 2.6 % (0.0-1.8); Hematocrit 35.7 % (30.3-42.9); Hemoglobin 10.2 gm/dl (10.1-14.3); Lymphocytes % (Auto) 14.9 % (13.4-35.0); Mean Corpuscular Volume 63 fl (79-97); Red Cell Distribution Width 24.1 % (13.2-15.2)
[2020-11-16] MEDS ORDERED: cloNIDine 0.2 MG TAB PO ONE (01:29)
[2020-11-16] MEDS ORDERED: NITROGLYCERIN 0.4 MG TAB SUBL SL PRN (01:48)
[2020-11-16] MEDS ORDERED: ACETAMINOPHEN 325 MG TAB PO PRN (01:48)
[2020-11-16] MEDS ORDERED: ALBUTEROL 2.5 MG/3 ML NEBU IH PRN (01:48)
[2020-11-16] MEDS ORDERED: DEXTROSE 50% IN WATER (25GM) 50 ML SYRINGE IV PRN (01:48)
[2020-11-16] MEDS ORDERED: ONDANSETRON 4 MG/2 ML INJ IV PRN (01:48)
[2020-11-16] MEDS ORDERED: oxyCODONE /ACETAMINOPHEN 5-325MG TAB PO PRN (01:55)
--- NOTE | 2020-11-16 02:48 | History and Physical Report ---
History of Present Illness Date of examination: 11/16/20 Date of admission: Chief complaint: SOB, ble edema History of present illness: 60-year-old -[place] obese female with history of HTN, IDDM, HLD, COPD, CHF, ADAN, chronic respiratory failure (on home O2), left lower extremity DVT, CAD, arthritis, ELSI, and depression who presents [facility] ED with complaints of shortness of breath and chest pain. Patient reports increased shortness of breath after running out of home oxygen 1 day ago. She states she was unable to go to the bathroom or perform any ADLs due to worsening shortness of breath. She states feeling so uncomfortable as if "she was going to ", so she decided to call EMS for assistance. She also complains of cough with thick green sputum production x3 to 4 days. Endorses worsening bilateral lower extremity pitting edema. While in the waiting area in the ED she developed nonradiating left- sided chest pain. She describes her pain as some pain/someone sitting on her chest. She was treated with JOSE, and states that her pain has since resolved. Endorses mild generalized headache. Denies fever, chills, nausea, vomiting, diarrhea, abdominal pain, constipation, palpitation, noncompliance with meds, recent sick contacts Review of medical record shows patient was previously admitted on 09/15/2020 with complaints of chest pain. During this admission patient underwent echo and PCI. Past History Past Medical History: CAD, COPD, diabetes (Insulin-dependent), heart failure, hy pertension, hyperlipidemia, other (ADAN with nocturnal use of BiPAP, left lower extremity DVT, arthritis, obesity, depression, generalized anxiety) Past Surgical History: appendectomy, cholecystectomy, hysterectomy, tonsillectomy, Other (Coronary stent x3 (2004, 2007, 09/2015)) Social history: single, Lives alone, smoking (Current everyday smoker), full code. denies: alcohol abuse, prescription drug abuse, IV drug use Family history: hypertension Medications and Allergies Allergies Allergy/AdvReac Type Severity Reaction Status Date / Time Penicillins Allergy Severe GO INTO Verified 09/15/20 12:11 SHOCK Home Medications Medication Instructions Recorded Confirmed Last Taken Type AtorvaSTATin [Lipitor] 40 mg PO QHS #30 tablet 09/12/19 09/15/20 09/15/20 Rx Budesonide/Formoterol Fumarate 10.2 gm PO Q6H 10/06/19 09/15/20 Unknown History [Budesonide-Formoterol 160-4.5] Celecoxib [celeBREX] 200 mg PO DAILY 10/06/19 09/15/20 09/15/20 History Clopidogrel [Plavix] 75 mg PO QWEEK 10/06/19 09/15/20 Unknown History Dulaglutide [Trulicity] 0.75 mg SQ DAILY 10/06/19 09/15/20 Unknown History HumuLIN 70/30 Kwikpen 15 units SQ BID 10/06/19 09/15/20 09/15/20 History Symbicort 160-4.5 Mcg Inhaler 160 1000units Q6H 10/06/19 09/15/20 Unknown History cloNIDine [Catapres] 0.2 mg PO BID 10/06/19 09/15/20 09/15/20 History Aspirin EC [Halfprin EC] 81 mg PO QDAY #30 tablet 10/09/19 09/15/20 09/15/20 Rx Sacubitril/Valsartan [Entresto 97 1 each PO DAILY #30 tablet 10/09/19 09/15/20 09/15/20 Rx mg-103 mg Tablet] Ferrous Sulfate [Feosol 325 MG tab] 325 mg PO BID #60 tablet 02/09/20 09/15/20 09/15/20 Rx Furosemide [Lasix TAB] 40 mg PO 0600,1800 #60 tablet 02/09/20 09/15/20 09/15/20 Rx Arformoterol Nebu [Brovana Nebu] 15 mcg IH Q12HRT ml 07/25/20 09/15/20 09/15/20 Rx Budesonide [Pulmicort Respules] 0.5 mg IH Q12HRT nebu 07/25/20 09/15/20 Unknown Rx Famotidine [Pepcid] 20 mg PO BID tablet 07/25/20 09/15/20 09/15/20 Rx ISOSORBIDE MONOnitrate [Imdur ER] 60 mg PO QDAY #30 tablet 07/25/20 09/15/20 Unknown Rx Lispro Insulin [HumaLOG] 0 unit SUB-Q ACHS units 07/25/20 09/15/20 09/15/20 Rx hydrALAZINE [Apresoline TAB] 100 mg PO Q8HR #90 tab 07/25/20 09/15/20 09/15/20 Rx oxyCODONE /ACETAMINOPHEN [Percocet 1 tab PO Q6H PRN #20 tablet 07/25/20 09/15/20 09/15/20 Rx 5/325 mg] Mirtazapine 7.5 mg PO QHS #30 tablet 09/19/20 Unknown Rx Venlafaxine [Effexor 25mg tab] 25 mg PO DAILY #30 tablet 09/19/20 Unknown Rx hydrOXYzine PAMOATE [Vistaril] 25 mg PO BID PRN #60 capsule 09/19/20 Unknown Rx FLUoxetine [PROzac] 20 mg PO QDAY #30 capsule 09/20/20 Unknown Rx Prednisone [predniSONE 5 mg (6-Day 5 mg PO .TAPER #1 tab.ds.pk 09/20/20 Unknown Rx Pack, 21 Tabs)] amLODIPine 10 mg PO DAILY #30 tablet 09/20/20 Unknown Rx Active Meds: Active Medications Acetaminophen (Acetaminophen 325 Mg Tab) 650 mg PO Q4H PRN PRN Reason: Pain MILD(1-3)/Fever >100.5/ALAS Albuterol (Albuterol 2.5 Mg/3 Ml Nebu) 2.5 mg IH Q3HRT PRN PRN Reason: Shortness Of Breath Albuterol/Ipratropium (Ipratropium/Albuterol Sulfate 3 Ml Ampul.Neb) 1 ampul IH Q6HRT [facility] Amlodipine Besylate (Amlodipine 10 Mg Tab) 10 mg PO DAILY [facility] Aspirin (Aspirin Ec 81 Mg Tab) 81 mg PO QDAY [facility] Atorvastatin Calcium (Atorvastatin 40 Mg Tab) 40 mg PO QHS [facility] Budesonide (Budesonide 0.5 Mg/2 Ml Nebu) 0.5 mg IH Q12HRT [facility] Celecoxib (Celecoxib 200 Mg Cap) 200 mg PO DAILY [facility] Clopidogrel Bisulfate (Clopidogrel 75 Mg Tab) 75 mg PO QDAY [facility] Dextrose (Dextrose 50% In Water (25gm) 50 Ml Syringe) 50 ml IV Q30MIN PRN; Protocol PRN Reason: Hypoglycemia Docusate Sodium (Docusate Sodium 100 Mg Cap) 100 mg PO BID [facility] Famotidine (Famotidine 20 Mg Tab) 20 mg PO BID [facility] Ferrous Sulfate (Ferrous Sulfate 325 Mg Tab) 325 mg PO BID [facility] Fluoxetine HCl (Fluoxetine 20 Mg Cap) 20 mg PO QDAY [facility] Furosemide (Furosemide 40 Mg/4 Ml Inj) 40 mg IV BID@0600,1800 [facility] Hydralazine HCl (Hydralazine 100 Mg Tab) 100 mg PO Q8HR [facility] Levofloxacin/Dextrose (Levaquin 500mg/100ml) 500 mg in 100 mls @ 100 mls/hr IV Q24H ANN MARIE; Protocol Insulin Human Lispro (Insulin Lispro 100 Unit/Ml) 0 unit SUB-Q ACHS ANN MARIE; Protocol Isosorbide Mononitrate (Isosorbide Mononitrate Er 60 Mg Tab) 60 mg PO QDAY [facility] Methylprednisolone Sodium Succinate (Methylprednisolone Sod Succinate 125 Mg/2 Ml Inj) 60 mg IV Q8HR [facility] Morphine Sulfate (Morphine 2 Mg/1 Ml Inj) 2 mg IV Q5MIN PRN PRN Reason: Chest Pain unrelieved by NTG Nitroglycerin (Nitroglycerin 0.4 Mg Tab Subl) 0.4 mg SL .Q5MIN PRN PRN Reason: Chest Pain Ondansetron HCl (Ondansetron 4 Mg/2 Ml Inj) 4 mg IV Q6H PRN PRN Reason: Nausea And Vomiting Oxycodone/Acetaminophen (Oxycodone /Acetaminophen 5-325mg Tab) 1 tab PO Q6H PRN PRN Reason: Pain , Severe (7-10) Potassium Chloride (Potassium Chloride Er 10 Meq Tab) 10 meq PO QDAY [facility] Stop: 11/19/20 10:01 Sodium Chloride (Sodium Chloride 0.9% 10 Ml Flush Syringe) 10 ml IV BID [facility] Sodium Chloride (Sodium Chloride 0.9% 10 Ml Flush Syringe) 10 ml IV PRN PRN PRN Reason: LINE FLUSH Venlafaxine HCl (Venlafaxine 25 Mg Tab) 25 mg PO DAILY [facility] Review of Systems All systems: negative (As noted in HPI) Exam - Physical Exam Narrative exam: Physical exam General appearance: Present: No acute distress, alert and oriented 3, obese, slightly anxious, adult female - EENT Eyes: Present: PERRL, EOM intact ENT: hearing intact, normal dentition - Neck Neck: Present: supple, normal ROM - Respiratory Respiratory effort: Non-labored Respiratory: Diminished bases, prolonged expiratory phase, on supplemental oxygen - Cardiovascular Heart rate: 100 (bpm) Rhythm: Sinus tachycardia Heart Sounds: Present: S1 & S2. Absent: rub, click - Extremities Extremities: no ischemia, pulses intact, 2+ bilateral lower extremity pitting edema - Peripheral Assessment Peripheral Pulses: within normal limits - Abdominal General gastrointestinal: Obese, soft, non-tender, normal bowel sounds - Integumentary Integumentary: Present: warm, dry - Musculoskeletal Musculoskeletal: Able to move all extremities, limited mobility due to body habitus -Neurological Neurological: CN II-XII intact - Psychiatric Psychiatric: cooperative - Constitutional Vitals: Temp Pulse Resp BP Pulse Ox 98.3 F 81 19 168/88 95 11/15/20 23:15 11/16/20 02:16 11/16/20 02:16 11/16/20 02:16 11/16/20 02:16 HEART Score - HEART Score Troponin: Troponin T < 0.010 ng/mL (0.00-0.029) 11/16/20 00:07 Results - Labs CBC & Chem 7: 11/16/20 00:07 11/16/20 00:07 Labs: Laboratory Last Values WBC 7.0 K/mm3 (4.5-11.0) 11/16/20 00:07 RBC 5.66 M/mm3 (3.65-5.03) H 11/16/20 00:07 Hgb 10.2 gm/dl (10.1-14.3) 11/16/20 00:07 Hct 35.7 % (30.3-42.9) 11/16/20 00:07 MCV 63 fl (79-97) L 11/16/20 00:07 MCH 18 pg (28-32) L 11/16/20 00:07 MCHC 29 % (30-34) L 11/16/20 00:07 RDW 24.1 % (13.2-15.2) H 11/16/20 00:07 Plt Count 320 K/mm3 (140-440) 11/16/20 00:07 Lymph % (Auto) 14.9 % (13.4-35.0) 11/16/20 00:07 Rhea % (Auto) 9.7 % (0.0-7.3) H 11/16/20 00:07 Eos % (Auto) 6.7 % (0.0-4.3) H 11/16/20 00:07 Baso % (Auto) 2.6 % (0.0-1.8) H 11/16/20 00:07 Lymph # (Auto) 1.0 K/mm3 (1.2-5.4) L 11/16/20 00:07 Rhea # (Auto) 0.7 K/mm3 (0.0-0.8) 11/16/20 00:07 Eos # (Auto) 0.5 K/mm3 (0.0-0.4) H 11/16/20 00:07 Baso # (Auto) 0.2 K/mm3 (0.0-0.1) H 11/16/20 00:07 Seg Neutrophils % 66.1 % (40.0-70.0) 11/16/20 00:07 Seg Neutrophils # 4.7 K/mm3 (1.8-7.7) 11/16/20 00:07 Sodium 142 mmol/L (137-145) 11/16/20 00:07 Potassium 4.7 mmol/L (3.6-5.0) 11/16/20 00:07 Chloride 106.7 mmol/L (98-107) 11/16/20 00:07 Carbon Dioxide 18 mmol/L (22-30) L 11/16/20 00:07 Anion Gap 22 mmol/L 11/16/20 00:07 BUN 11 mg/dL (7-17) 11/16/20 00:07 Creatinine 0.7 mg/dL (0.6-1.2) 11/16/20 00:07 Estimated GFR > 60 ml/min 11/16/20 00:07 BUN/Creatinine Ratio 16 % 11/16/20 00:07 Glucose 94 mg/dL (65-100) 11/16/20 00:07 Calcium 8.7 mg/dL (8.4-10.2) 11/16/20 00:07 Troponin T < 0.010 ng/mL (0.00-0.029) 11/16/20 00:07 NT-Pro-B Natriuret Pep 5512 pg/mL (0-900) H 11/16/20 00:07 - Imaging and Cardiology Chest x-ray: report reviewed, image reviewed Imaging and Cardiology: CXR: FINDINGS: SUPPORT DEVICES: None. HEART / MEDIASTINUM: Unchanged prominent cardiac silhouette. LUNGS / PLEURA: Mild pulmonary vascular congestion. Peribronchial thickening. No definite airspace disease. Left midlung zone parenchymal opacities favored to represent atelectasis. Costophrenic sulci are sharp. No pneumothorax. ADDITIONAL FINDINGS: No significant additional findings. IMPRESSION: 1. Pulmonary vascular congestion. Otherwise, no significant abnormality. Assessment and Plan Assessment and plan: Acute on chronic HFrEF -EF 50-55% with moderate concentric LVH seen on Echo 09/15/20 -BNP elevated at 5512 -Troponin negative 1, will trend -CXR suggestive of pulmonary vascular congestion -Start IV Lasix twice daily -Continue ASA, Plavix, statin, -Cardiology consulted Stable angina -History of CAD, status post PCI x3 (most recent 09/2020) -Reports pain resolved with JOSE -On continuous remote threat monitoring analyst -Supportive care Acute exacerbation COPD -Increased cough with thick green sputum production -Scheduled to DuoNebs and Pulmicort, albuterol when necessary -IV systemic steroids -Follows as outpatient -Pulmonary consulted Chronic respiratory failure -Baseline home oxygen requirements 4L continuously -Currently on supplemental at baseline -Monitor saturations Insulin-dependent diabetes mellitus -POC BG monitoring -SSI coverage prn -HgbA1C pending HTN -Uncontrolled -Monitor BP -Resume home hypertensive meds History of ELSI and depression -Continue Effexor and Prozac History of ADAN -With nocturnal use of CPAP -Continue while inpatient Tobacco user -Current every day smoker -Reports smoking 2 to 3 cigarettes/ day -Counseled for cessation -Nicotine patch when necessary
[2020-11-16] MEDS: IPRATROPIUM/ALBUTEROL SULFATE 3 ML AMPUL.NEB IH SCH ×4 (03:22→20:44)
[2020-11-16 05:33] LABS: Chol/HDL Ratio 4.86 %; HDL Cholesterol 22 mg/dL (40-59); LDL Cholesterol,Direct 77 mg/dL (50-130)
[2020-11-16] MEDS: hydrALAZINE 100 MG TAB PO SCH ×3 (06:39→22:12)
[2020-11-16] MEDS: methylPREDNISolone Sod Succinate 125 MG/2 ML INJ IV SCH ×3 (06:39→22:13)
[2020-11-16] MEDS: FUROSEMIDE 40 MG/4 ML INJ IV SCH ×2 (06:39→17:37)
[2020-11-16] MEDS: INSULIN LISPRO 100 UNIT/ML SUB-Q SCH ×6 (08:37→22:11)
[2020-11-16] MEDS: BUDESONIDE 0.5 MG/2 ML NEBU IH SCH ×2 (09:21→20:45)
[2020-11-16] MEDS ORDERED: METOPROLOL TARTRATE 50 MG TAB PO SCH (10:00)
[2020-11-16] MEDS ORDERED: CLOPIDOGREL 75 MG TAB PO SCH (10:00)
[2020-11-16] MEDS: NICOTINE 14 MG/24 HR PATCH TD SCH (10:59)
[2020-11-16] MEDS: amLODIPine 10 MG TAB PO SCH (10:59)
[2020-11-16] MEDS: FERROUS SULFATE 325 MG TAB PO SCH ×2 (10:59→22:12)
[2020-11-16] MEDS: CLOPIDOGREL 75 MG TAB PO SCH (11:00)
[2020-11-16] MEDS: DOCUSATE SODIUM 100 MG CAP PO SCH ×2 (11:00→22:12)
[2020-11-16] MEDS: FAMOTIDINE 20 MG TAB PO SCH ×2 (11:00→22:12)
[2020-11-16] MEDS: ASPIRIN EC 81 MG TAB PO SCH (11:00)
[2020-11-16] MEDS: POTASSIUM CHLORIDE ER 10 MEQ TAB PO SCH (11:00)
[2020-11-16] MEDS: FLUoxetine 20 MG CAP PO SCH (11:00)
[2020-11-16] MEDS: CELECOXIB 200 MG CAP PO SCH (11:09)
[2020-11-16] MEDS: VENLAFAXINE 25 MG TAB PO SCH (11:10)
--- NOTE | 2020-11-16 13:03 | Consultation ---
History of Present Illness Consult date: 11/16/20 Requesting physician: MIREYA DUMONT Consult reason: congestive heart failure History of present illness: This patient is a 60-year-old female with a significant history of coronary artery disease status post PCI in 2019, cardiomyopathy, [id number] diabetic, systolic heart failure, hypertension, hyper lipid, tobacco use, COPD. Patient is followed by Dr Hernandez in our office. Patient presents to [facility] ER with a chief complaint of shortness of breath x1 week and bilateral lower extremity edema. Patient states she has been out of medications including Plavix due to financial issues for approximately 1 month and out of home oxygen for approximately 1 week. Shortness of breath has continued to worsen in spite of using albuterol MDI approximately 4 times a day. Patient denies any weakness or dizziness abdominal pain nausea vomiting diarrhea, recent illness or known exposures. She is still using tobacco but denies any EtOH or other illicit drugs. Patient also endorses frequent incontinence up to 12 times per night that she attributes to taking diuretics at night. On exam patient has decreased breath sounds with expiratory wheezing. Bilateral lower extremity edema 2+ noted. Of note patient uses CPAP for ADAN at night. [facility] reviewed (2018): PCI with DIANELYS of mid ramus 70%. Echo reviewed (07/22/2020): EF 50 to 55%. Echo reviewed (06/2018): EF 35 to 40%. Past History Past Medical History: CAD, COPD, diabetes (Insulin-dependent), heart failure, hypertension, hyperlipidemia, other (ADAN with nocturnal use of BiPAP, left lower extremity DVT, arthritis, obesity, depression, generalized anxiety) Past Surgical History: appendectomy, cholecystectomy, hysterectomy, tonsillectomy, Other (Coronary stent x3 (2004, 2007, 09/2015)) Social history: single, Lives alone, smoking (Current everyday smoker), full code. denies: alcohol abuse, prescription drug abuse, IV drug use Family history: hypertension Medications and Allergies Allergies Allergy/AdvReac Type Severity Reaction Status Date / Time Penicillins Allergy Severe GO INTO Verified 09/15/20 12:11 SHOCK Home Medications Medication Instructions Recorded Confirmed Last Taken Type AtorvaSTATin [Lipitor] 40 mg PO QHS #30 tablet 09/12/19 09/15/20 09/15/20 Rx Budesonide/Formoterol Fumarate 10.2 gm PO Q6H 10/06/19 09/15/20 Unknown History [Budesonide-Formoterol 160-4.5] Celecoxib [celeBREX] 200 mg PO DAILY 10/06/19 09/15/20 09/15/20 History Clopidogrel [Plavix] 75 mg PO QWEEK 10/06/19 09/15/20 Unknown History Dulaglutide [Trulicity] 0.75 mg SQ DAILY 10/06/19 09/15/20 Unknown History HumuLIN 70/30 Kwikpen 15 units SQ BID 10/06/19 09/15/20 09/15/20 History Symbicort 160-4.5 Mcg Inhaler 160 1000units Q6H 10/06/19 09/15/20 Unknown History cloNIDine [Catapres] 0.2 mg PO BID 10/06/19 09/15/20 09/15/20 History Aspirin EC [Halfprin EC] 81 mg PO QDAY #30 tablet 10/09/19 09/15/20 09/15/20 Rx Sacubitril/Valsartan [Entresto 97 1 each PO DAILY #30 tablet 10/09/19 09/15/20 09/15/20 Rx mg-103 mg Tablet] Ferrous Sulfate [Feosol 325 MG tab] 325 mg PO BID #60 tablet 02/09/20 09/15/20 09/15/20 Rx Furosemide [Lasix TAB] 40 mg PO 0600,1800 #60 tablet 02/09/20 09/15/20 09/15/20 Rx Arformoterol Nebu [Brovana Nebu] 15 mcg IH Q12HRT ml 07/25/20 09/15/20 09/15/20 Rx Budesonide [Pulmicort Respules] 0.5 mg IH Q12HRT nebu 07/25/20 09/15/20 Unknown Rx Famotidine [Pepcid] 20 mg PO BID tablet 07/25/20 09/15/20 09/15/20 Rx ISOSORBIDE MONOnitrate [Imdur ER] 60 mg PO QDAY #30 tablet 07/25/20 09/15/20 Unknown Rx Lispro Insulin [HumaLOG] 0 unit SUB-Q ACHS units 07/25/20 09/15/20 09/15/20 Rx hydrALAZINE [Apresoline TAB] 100 mg PO Q8HR #90 tab 07/25/20 09/15/20 09/15/20 Rx oxyCODONE /ACETAMINOPHEN [Percocet 1 tab PO Q6H PRN #20 tablet 07/25/20 09/15/20 09/15/20 Rx 5/325 mg] Mirtazapine 7.5 mg PO QHS #30 tablet 09/19/20 Unknown Rx Venlafaxine [Effexor 25mg tab] 25 mg PO DAILY #30 tablet 09/19/20 Unknown Rx hydrOXYzine PAMOATE [Vistaril] 25 mg PO BID PRN #60 capsule 09/19/20 Unknown Rx FLUoxetine [PROzac] 20 mg PO QDAY #30 capsule 09/20/20 Unknown Rx Prednisone [predniSONE 5 mg (6-Day 5 mg PO .TAPER #1 tab.ds.pk 09/20/20 Unknown Rx Pack, 21 Tabs)] amLODIPine 10 mg PO DAILY #30 tablet 09/20/20 Unknown Rx Active Meds: Active Medications Acetaminophen (Acetaminophen 325 Mg Tab) 650 mg PO Q4H PRN PRN Reason: Pain MILD(1-3)/Fever >100.5/ALAS Albuterol (Albuterol 2.5 Mg/3 Ml Nebu) 2.5 mg IH Q3HRT PRN PRN Reason: Shortness Of Breath Albuterol/Ipratropium (Ipratropium/Albuterol Sulfate 3 Ml Ampul.Neb) 1 ampul IH Q6HRT [facility] Last Admin: 11/16/20 09:21 Dose: 1 ampul Documented by: Amlodipine Besylate (Amlodipine 10 Mg Tab) 10 mg PO DAILY [facility] Last Admin: 11/16/20 10:59 Dose: 10 mg Documented by: Aspirin (Aspirin Ec 81 Mg Tab) 81 mg PO QDAY [facility] Last Admin: 11/16/20 11:00 Dose: 81 mg Documented by: Atorvastatin Calcium (Atorvastatin 40 Mg Tab) 40 mg PO QHS [facility] Budesonide (Budesonide 0.5 Mg/2 Ml Nebu) 0.5 mg IH Q12HRT [facility] Last Admin: 11/16/20 09:21 Dose: 0.5 mg Documented by: Celecoxib (Celecoxib 200 Mg Cap) 200 mg PO DAILY [facility] Last Admin: 11/16/20 11:09 Dose: 200 mg Documented by: Clopidogrel Bisulfate (Clopidogrel 75 Mg Tab) 75 mg PO QDAY [facility] Last Admin: 11/16/20 11:00 Dose: 75 mg Documented by: Dextrose (Dextrose 50% In Water (25gm) 50 Ml Syringe) 50 ml IV Q30MIN PRN; Protocol PRN Reason: Hypoglycemia Docusate Sodium (Docusate Sodium 100 Mg Cap) 100 mg PO BID [facility] Last Admin: 11/16/20 11:00 Dose: 100 mg Documented by: Famotidine (Famotidine 20 Mg Tab) 20 mg PO BID [facility] Last Admin: 11/16/20 11:00 Dose: 20 mg Documented by: Ferrous Sulfate (Ferrous Sulfate 325 Mg Tab) 325 mg PO BID [facility] Last Admin: 11/16/20 10:59 Dose: 325 mg Documented by: Fluoxetine HCl (Fluoxetine 20 Mg Cap) 20 mg PO QDAY [facility] Last Admin: 11/16/20 11:00 Dose: 20 mg Documented by: Furosemide (Furosemide 40 Mg/4 Ml Inj) 40 mg IV BID@0600,1800 [facility] Last Admin: 11/16/20 06:39 Dose: 40 mg Documented by: Hydralazine HCl (Hydralazine 100 Mg Tab) 100 mg PO Q8HR [facility] Last Admin: 11/16/20 06:39 Dose: 100 mg Documented by: Levofloxacin/Dextrose (Levaquin 500mg/100ml) 500 mg in 100 mls @ 100 mls/hr IV Q24H [facility]; Protocol Insulin Human Lispro (Insulin Lispro 100 Unit/Ml) 0 unit SUB-Q ACHS [facility]; Protocol Last Admin: 11/16/20 08:37 Dose: 2 unit Documented by: Isosorbide Mononitrate (Isosorbide Mononitrate Er 60 Mg Tab) 60 mg PO QDAY [facility] Last Admin: 11/16/20 11:00 Dose: 60 mg Documented by: Methylprednisolone Sodium Succinate (Methylprednisolone Sod Succinate 125 Mg/2 Ml Inj) 60 mg IV Q8HR [facility] Last Admin: 11/16/20 06:39 Dose: 60 mg Documented by: Metoprolol Tartrate (Metoprolol Tartrate 50 Mg Tab) 50 mg PO BID [facility] Last Admin: 11/16/20 10:59 Dose: 50 mg Documented by: Morphine Sulfate (Morphine 2 Mg/1 Ml Inj) 2 mg IV Q5MIN PRN PRN Reason: Chest Pain unrelieved by NTG Nicotine (Nicotine 14 Mg/24 Hr Patch) 14 mg TD QDAY [facility] Last Admin: 11/16/20 10:59 Dose: 14 mg Documented by: Nitroglycerin (Nitroglycerin 0.4 Mg Tab Subl) 0.4 mg SL .Q5MIN PRN PRN Reason: Chest Pain Ondansetron HCl (Ondansetron 4 Mg/2 Ml Inj) 4 mg IV Q6H PRN PRN Reason: Nausea And Vomiting Oxycodone/Acetaminophen (Oxycodone /Acetaminophen 5-325mg Tab) 1 tab PO Q6H PRN PRN Reason: Pain , Severe (7-10) Potassium Chloride (Potassium Chloride Er 10 Meq Tab) 10 meq PO QDAY [facility] Stop: 11/19/20 10:01 Last Admin: 11/16/20 11:00 Dose: 10 meq Documented by: Sodium Chloride (Sodium Chloride 0.9% 10 Ml Flush Syringe) 10 ml IV BID [facility] Last Admin: 11/16/20 11:01 Dose: 10 ml Documented by: Sodium Chloride (Sodium Chloride 0.9% 10 Ml Flush Syringe) 10 ml IV PRN PRN PRN Reason: LINE FLUSH Last Admin: 11/16/20 06:39 Dose: 10 ml Documented by: Venlafaxine HCl (Venlafaxine 25 Mg Tab) 25 mg PO DAILY [facility] Last Admin: 11/16/20 11:10 Dose: 25 mg Documented by: Review of Systems Constitutional: weight gain, no weight loss, no fever, no chills, no sweats, no night sweats Ears, nose, mouth and throat: no ear pain, no ear discharge, no nose pain, no nasal congestion, no nasal discharge Cardiovascular: orthopnea, edema, shortness of breath, dyspnea on exertion, high blood pressure, leg edema, no chest pain, no palpitations, no rapid/irregular h eart beat, no syncope, no lightheadedness, no paroxysmal nocturnal dyspnea, no claudication, no phlebitis, no decreased exercise tolerance Respiratory: cough, cough with sputum, shortness of breath, dyspnea on exertion, wheezing, no hemoptysis Gastrointestinal: no abdominal pain, no nausea, no vomiting, no diarrhea Genitourinary Female: urge incontinence, no flank pain Musculoskeletal: no neck stiffness, no neck pain, no shooting arm pain, no arm numbness/tingling, no low back pain, no shooting leg pain Integumentary: no rash, no pruritis, no redness, no sores, no wounds Neurological: no head injury, no paralysis, no weakness, no parathesias, no numbness, no tingling, no seizures, no syncope Psychiatric: no anxiety Endocrine: no cold intolerance, no heat intolerance Hematologic/Lymphatic: no easy bruising, no easy bleeding Allergic/Immunologic: no urticaria Physical Examination Last Vital Signs Temp 98.3 F 11/16/20 12:14 Pulse 79 11/16/20 12:14 Resp 22 11/16/20 12:14 BP 185/100 11/16/20 12:14 Pulse Ox 93 11/16/20 12:14 General appearance: no acute distress HEENT: Positive: PERRL, Normocephaly, Mucus Membranes Moist Neck: Positive: neck supple, trachea midline Cardiac: Positive: Reg Rate and Rhythm, S1/S2 Lungs: Positive: Decreased Breath Sounds Neuro: Positive: Grossly Intact Abdomen: Positive: Unremarkable, Soft Skin: Negative: Rash, Wound Musculoskeletal: No Pain Extremities: Present: upper extr. pulses, lower extr. pulses, +2 Edema Results 11/16/20 00:07 11/16/20 00:07 Lipids 11/16/20 Range/Units 04:17 Triglycerides 65 (2-149) mg/dL Cholesterol 107 (50-199) mg/dL HDL Cholesterol 22 L (40-59) mg/dL Cholesterol/HDL Ratio 4.86 % CBC 11/16/20 Range/Units 00:07 WBC 7.0 (4.5-11.0) K/mm3 RBC 5.66 H (3.65-5.03) M/mm3 Hgb 10.2 (10.1-14.3) gm/dl Hct 35.7 (30.3-42.9) % Plt Count 320 (140-440) K/mm3 Lymph # (Auto) 1.0 L (1.2-5.4) K/mm3 [place] # (Auto) 0.7 (0.0-0.8) K/mm3 Eos # (Auto) 0.5 H (0.0-0.4) K/mm3 Baso # (Auto) 0.2 H (0.0-0.1) K/mm3 Comprehensive Metabolic Panel 11/16/20 Range/Units 00:07 Sodium 142 (137-145) mmol/L Potassium 4.7 (3.6-5.0) mmol/L Chloride 106.7 (98-107) mmol/L Carbon Dioxide 18 L (22-30) mmol/L BUN 11 (7-17) mg/dL Creatinine 0.7 (0.6-1.2) mg/dL Glucose 94 (65-100) mg/dL Calcium 8.7 (8.4-10.2) mg/dL - Imaging and Cardiology Echo: report reviewed Cardiac cath: report reviewed EKG: report reviewed, image reviewed EKG interpretations - Telemetry EKG Rhythm: Sinus Rhythm - EKG Sinus rhythms and dysrhythmias: sinus tachycardia Assessment and Plan Acute on chronic heart failure preserved ejection fraction in setting of coronary artery disease status post PCI * Pulmonary edema on CXR with bilateral on CXR with bilateral 2+ lower extremity edema. * Echocardiogram reviewed (09/15/2020): LVEF is 50 to 55%. LV SF is normal. Moderate LVH. RV SF is normal. Moderate pulmonary hypertension cannot be excluded due to poor regurgitant envelope * Optimize volume control: Lasix 40 mg IV twice daily. Strict I/O's. Repeat BMP in a.m * Patient is chronically on dual antiplatelet therapy with aspirin/Plavix. Patient reports medical noncompliance with Plavix for approximately 1 month due to income issues. Resume dual antiplatelet therapy. * Troponins are negative x2. Twelve-lead shows sinus tach with no acute ischemic changes. AMI is ruled out * Optimize antihypertensive regimen: Discontinue metoprolol. Resume home medications Entresto, clonidine 0.2 mg, amlodipine 10. Continue hydralazine 100mg 3 times daily. Plan to wean off hydralazine once normotensive. Consider weaning off Entresto for alternative ARB prior to discharge depending on financial obstacles for patient. Acute COPD exacerbation * MDI at bedside. Patient is currently on O2 support via nasal cannula. Teresita nt is on home O2 supplement. ADAN * CPAP nightly DVT prophylaxis * Heparin SQ - Patient Problems (1) Acute respiratory failure with hypoxia Current Visit: Yes Status: Acute (2) COPD exacerbation Current Visit: Yes Status: Acute (3) Hypertensive emergency Current Visit: Yes Status: Acute (4) CAD (coronary artery disease) Current Visit: Yes Status: Chronic Qualifiers: Coronary Disease-Associated Artery/Lesion type: [place]all artery [place] vs. transplanted heart: marshall heart Associated angina: with stable angina Q ualified Code(s): I25.118 - Atherosclerotic heart disease of marshall coronary artery with other forms of angina pectoris (5) Stented coronary artery Current Visit: Yes Status: Chronic (6) Acute on chronic HFrEF (heart failure with reduced ejection fraction) Current Visit: Yes Status: Acute (7) DVT prophylaxis Current Visit: No Status: Acute (9) Cardiomyopathy Current Visit: No Status: Chronic Qualifiers: Cardiomyopathy type: ischemic Qualified Code(s): I25.5 - Ischemic cardiomyopathy (10) Diabetes mellitus, type 2 Current Visit: Yes Status: Chronic (11) HTN (hypertension) Current Visit: Yes Status: Chronic Qualifiers: Hypertension type: essential hypertension Qualified Code(s): I10 - Essential (primary) hypertension (12) Hyperlipidemia Current Visit: Yes Status: Chronic Qualifiers: Hyperlipidemia type: mixed hyperlipidemia Qualified Code(s): E78.2 - Mixed hyperlipidemia (13) ADAN (obstructive sleep apnea) Current Visit: Yes Status: Chronic (14) Tobacco use Current Visit: Yes Status: Chronic
[2020-11-16] MEDS ORDERED: NON-FORMULARY EACH (Sacubitril/Valsartan [Entresto 97 Mg-103 Mg Tablet] 1 EACH Tablet) PO SCH (13:15)
[2020-11-16] MEDS: cloNIDine 0.2 MG TAB PO SCH ×2 (13:57→22:12)
[2020-11-16] MEDS: MORPHINE 2 MG/1 ML INJ IV PRN (14:15)
--- NOTE | 2020-11-16 14:58 | Consultation ---
History of Present Illness Consult date: 11/16/20 Reason for consult: dyspnea, cough, chest pain, COPD, hypoxemia, DVT History of present illness: 60-year-old -[place] obese female with history of HTN, IDDM, HLD, COPD, CHF, ADAN, chronic respiratory failure (on home O2), left lower extremity DVT, CAD, arthritis, ELSI, and depression who presents [facility] with complaints of shortness of breath and chest pain. Patient reports increased shortness of breath after running out of home oxygen 1 day ago. She states she was unable to go to the bathroom or perform any ADLs due to worsening shortness of breath. She states feeling so uncomfortable as if "she was going to ", so she decided to call EMS for assistance. She also complains of cough with thick green sputum production x3 to 4 days. Endorses worsening bilateral lower extremity pitting edema. While in the waiting area in the ED she developed nonradiating left- sided chest pain. She describes her pain as some pain/someone sitting on her chest. She was treated with JOSE, and states that her pain has since resolved. Endorses mild generalized headache. Denies fever, chills, nausea, vomiting, diarrhea, abdominal pain, constipation, palpitation, noncompliance with meds, recent sick contacts Patient alert, awake. Says breathing better since she came into the hospital. Patient presently on 2 litres O2. O2 saturation running 93%. Patient afebrile. No leukocytosis. Blood pressure 185/100. Chest xray 11/15/20 reported Pulmonary vascular congestion. Otherwise, no significant abnormality. Patient is on I/V solumedrol, Albuterol/atrovent aerosol treatments,Levaquin, famotidine. Past History Past Medical History: CAD, COPD, diabetes (Insulin-dependent), heart failure, hypertension, hyperlipidemia, other (ADAN with nocturnal use of BiPAP, left lower extremity DVT, arthritis, obesity, depression, generalized anxiety) Past Surgical History: appendectomy, cholecystectomy, hysterectomy, tonsillectomy, Other (Coronary stent x3 (2004, 2007, 09/2015)) Social history: single, Lives alone, smoking (Current everyday smoker), full code. denies: alcohol abuse, prescription drug abuse, IV drug use Family history: hypertension Medications and Allergies Allergies Allergy/AdvReac Type Severity Reaction Status Date / Time Penicillins Allergy Severe GO INTO Verified 09/15/20 12:11 SHOCK Home Medications Medication Instructions Recorded Confirmed Last Taken Type AtorvaSTATin [Lipitor] 40 mg PO QHS #30 tablet 09/12/19 09/15/20 09/15/20 Rx Budesonide/Formoterol Fumarate 10.2 gm PO Q6H 10/06/19 09/15/20 Unknown History [Budesonide-Formoterol 160-4.5] Celecoxib [celeBREX] 200 mg PO DAILY 10/06/19 09/15/20 09/15/20 History Clopidogrel [Plavix] 75 mg PO QWEEK 10/06/19 09/15/20 Unknown History Dulaglutide [Trulicity] 0.75 mg SQ DAILY 10/06/19 09/15/20 Unknown History HumuLIN 70/30 Kwikpen 15 units SQ BID 10/06/19 09/15/20 09/15/20 History Symbicort 160-4.5 Mcg Inhaler 160 1000units Q6H 10/06/19 09/15/20 Unknown History cloNIDine [Catapres] 0.2 mg PO BID 10/06/19 09/15/20 09/15/20 History Aspirin EC [Halfprin EC] 81 mg PO QDAY #30 tablet 10/09/19 09/15/20 09/15/20 Rx Sacubitril/Valsartan [Entresto 97 1 each PO DAILY #30 tablet 10/09/19 09/15/20 09/15/20 Rx mg-103 mg Tablet] Ferrous Sulfate [Feosol 325 MG tab] 325 mg PO BID #60 tablet 02/09/20 09/15/20 09/15/20 Rx Furosemide [Lasix TAB] 40 mg PO 0600,1800 #60 tablet 02/09/20 09/15/20 09/15/20 Rx Arformoterol Nebu [Brovana Nebu] 15 mcg IH Q12HRT ml 07/25/20 09/15/20 09/15/20 Rx Budesonide [Pulmicort Respules] 0.5 mg IH Q12HRT nebu 07/25/20 09/15/20 Unknown Rx Famotidine [Pepcid] 20 mg PO BID tablet 07/25/20 09/15/20 09/15/20 Rx ISOSORBIDE MONOnitrate [Imdur ER] 60 mg PO QDAY #30 tablet 07/25/20 09/15/20 Unknown Rx Lispro Insulin [HumaLOG] 0 unit SUB-Q ACHS units 07/25/20 09/15/20 09/15/20 Rx hydrALAZINE [Apresoline TAB] 100 mg PO Q8HR #90 tab 07/25/20 09/15/20 09/15/20 Rx oxyCODONE /ACETAMINOPHEN [Percocet 1 tab PO Q6H PRN #20 tablet 07/25/20 09/15/20 09/15/20 Rx 5/325 mg] Mirtazapine 7.5 mg PO QHS #30 tablet 09/19/20 Unknown Rx Venlafaxine [Effexor 25mg tab] 25 mg PO DAILY #30 tablet 09/19/20 Unknown Rx hydrOXYzine PAMOATE [Vistaril] 25 mg PO BID PRN #60 capsule 09/19/20 Unknown Rx FLUoxetine [PROzac] 20 mg PO QDAY #30 capsule 09/20/20 Unknown Rx Prednisone [predniSONE 5 mg (6-Day 5 mg PO .TAPER #1 tab.ds.pk 09/20/20 Unknown Rx Pack, 21 Tabs)] amLODIPine 10 mg PO DAILY #30 tablet 09/20/20 Unknown Rx Active Meds: Active Medications Acetaminophen (Acetaminophen 325 Mg Tab) 650 mg PO Q4H PRN PRN Reason: Pain MILD(1-3)/Fever >100.5/ALAS Albuterol (Albuterol 2.5 Mg/3 Ml Nebu) 2.5 mg IH Q3HRT PRN PRN Reason: Shortness Of Breath Albuterol/Ipratropium (Ipratropium/Albuterol Sulfate 3 Ml Ampul.Neb) 1 ampul IH Q6HRT [facility] Last Admin: 11/16/20 13:56 Dose: 1 ampul Documented by: Amlodipine Besylate (Amlodipine 10 Mg Tab) 10 mg PO DAILY [facility] Last Admin: 11/16/20 10:59 Dose: 10 mg Documented by: Aspirin (Aspirin Ec 81 Mg Tab) 81 mg PO QDAY [facility] Last Admin: 11/16/20 11:00 Dose: 81 mg Documented by: Atorvastatin Calcium (Atorvastatin 40 Mg Tab) 40 mg PO QHS [facility] Budesonide (Budesonide 0.5 Mg/2 Ml Nebu) 0.5 mg IH Q12HRT [facility] Last Admin: 11/16/20 09:21 Dose: 0.5 mg Documented by: Celecoxib (Celecoxib 200 Mg Cap) 200 mg PO DAILY [facility] Last Admin: 11/16/20 11:09 Dose: 200 mg Documented by: Clonidine HCl (Clonidine 0.2 Mg Tab) 0.2 mg PO BID [facility] Last Admin: 11/16/20 13:57 Dose: 0.2 mg Documented by: Clopidogrel Bisulfate (Clopidogrel 75 Mg Tab) 75 mg PO QDAY [facility] Last Admin: 11/16/20 11:00 Dose: 75 mg Documented by: Dextrose (Dextrose 50% In Water (25gm) 50 Ml Syringe) 50 ml IV Q30MIN PRN; Protocol PRN Reason: Hypoglycemia Docusate Sodium (Docusate Sodium 100 Mg Cap) 100 mg PO BID [facility] Last Admin: 11/16/20 11:00 Dose: 100 mg Documented by: Famotidine (Famotidine 20 Mg Tab) 20 mg PO BID [facility] Last Admin: 11/16/20 11:00 Dose: 20 mg Documented by: Ferrous Sulfate (Ferrous Sulfate 325 Mg Tab) 325 mg PO BID [facility] Last Admin: 11/16/20 10:59 Dose: 325 mg Documented by: Fluoxetine HCl (Fluoxetine 20 Mg Cap) 20 mg PO QDAY [facility] Last Admin: 11/16/20 11:00 Dose: 20 mg Documented by: Furosemide (Furosemide 40 Mg/4 Ml Inj) 40 mg IV BID@0600,1800 [facility] Last Admin: 11/16/20 06:39 Dose: 40 mg Documented by: Hydralazine HCl (Hydralazine 100 Mg Tab) 100 mg PO Q8HR [facility] Last Admin: 11/16/20 13:57 Dose: 100 mg Documented by: Levofloxacin/Dextrose (Levaquin 500mg/100ml) 500 mg in 100 mls @ 100 mls/hr IV Q24H [facility]; Protocol Insulin Human Lispro (Insulin Lispro 100 Unit/Ml) 0 unit SUB-Q ACHS [facility]; Protocol Last Admin: 11/16/20 13:58 Dose: 4 unit Documented by: Isosorbide Mononitrate (Isosorbide Mononitrate Er 60 Mg Tab) 60 mg PO QDAY [facility] Last Admin: 11/16/20 11:00 Dose: 60 mg Documented by: Methylprednisolone Sodium Succinate (Methylprednisolone Sod Succinate 125 Mg/2 Ml Inj) 60 mg IV Q8HR [facility] Last Admin: 11/16/20 13:57 Dose: 60 mg Documented by: Morphine Sulfate (Morphine 2 Mg/1 Ml Inj) 2 mg IV Q5MIN PRN PRN Reason: Chest Pain unrelieved by NTG Last Admin: 11/16/20 14:15 Dose: 2 mg Documented by: Nicotine (Nicotine 14 Mg/24 Hr Patch) 14 mg TD QDAY [facility] Last Admin: 11/16/20 10:59 Dose: 14 mg Documented by: Nitroglycerin (Nitroglycerin 0.4 Mg Tab Subl) 0.4 mg SL .Q5MIN PRN PRN Reason: Chest Pain Ondansetron HCl (Ondansetron 4 Mg/2 Ml Inj) 4 mg IV Q6H PRN PRN Reason: Nausea And Vomiting Oxycodone/Acetaminophen (Oxycodone /Acetaminophen 5-325mg Tab) 1 tab PO Q6H PRN PRN Reason: Pain , Severe (7-10) Potassium Chloride (Potassium Chloride Er 10 Meq Tab) 10 meq PO QDAY [facility] Stop: 11/19/20 10:01 Last Admin: 11/16/20 11:00 Dose: 10 meq Documented by: Sodium Chloride (Sodium Chloride 0.9% 10 Ml Flush Syringe) 10 ml IV BID [facility] Last Admin: 11/16/20 11:01 Dose: 10 ml Documented by: Sodium Chloride (Sodium Chloride 0.9% 10 Ml Flush Syringe) 10 ml IV PRN PRN PRN Reason: LINE FLUSH Last Admin: 11/16/20 14:15 Dose: 10 ml Documented by: Venlafaxine HCl (Venlafaxine 25 Mg Tab) 25 mg PO DAILY [facility] Last Admin: 11/16/20 11:10 Dose: 25 mg Documented by: Review of Systems All systems: negative Physical Examination Vital signs: Vital Signs Pulse BP Pulse Ox 105 H 214/142 100 11/15/20 18:16 11/15/20 18:16 11/15/20 18:16 General appearance: alert, appears uncomfortable, other (Emotional and rest less.) Eyes: non-icteric ENT: oropharynx moist Neck: supple, no JVD Ascultation: Bilateral: wheezes Cardiovascular: regular rate and rhythm Gastrointestinal: normoactive bowel sounds, non-tender Integumentary: normal Extremities: no cyanosis, no edema Musculoskeletal: no deformities non-focal exam, pupils equal and round anxious, depressed Results - Laboratory Findings CBC and BMP: 11/16/20 00:07 11/16/20 00:07 Abnormal lab findings: Abnormal Labs 11/16/20 11/16/20 11/16/20 00:07 00:07 04:17 RBC 5.66 H MCV 63 L MCH 18 L MCHC 29 L RDW 24.1 H [place] % (Auto) 9.7 H Eos % (Auto) 6.7 H Baso % (Auto) 2.6 H Lymph # (Auto) 1.0 L Eos # (Auto) 0.5 H Baso # (Auto) 0.2 H Carbon Dioxide 18 L POC Glucose Hemoglobin A1c 6.2 H NT-Pro-B Natriuret Pep 5512 H HDL Cholesterol 11/16/20 11/16/20 11/16/20 04:17 07:42 12:14 RBC MCV MCH MCHC RDW [place] % (Auto) Eos % (Auto) Baso % (Auto) Lymph # (Auto) Eos # (Auto) Baso # (Auto) Carbon Dioxide POC Glucose 163 H 274 H Hemoglobin A1c NT-Pro-B Natriuret Pep HDL Cholesterol 22 L - Diagnostic Findings Chest x-ray: report reviewed, image reviewed Additional studies: XR chest 1V ap 11/15/20 INDICATION / CLINICAL INFORMATION: Dyspnea COMPARISON: September 15, 2020 FINDINGS: SUPPORT DEVICES: None. HEART / MEDIASTINUM: Unchanged prominent cardiac silhouette. LUNGS / PLEURA: Mild pulmonary vascular congestion. Peribronchial thickening. No definite airspace disease. Left midlung zone parenchymal opacities favored to represent atelectasis. Costophrenic sulci are sharp. No pneumothorax. ADDITIONAL FINDINGS: No significant additional findings. IMPRESSION: 1. Pulmonary vascular congestion. Otherwise, no significant abnormality. Assessment and Plan 60-year-old -[place] obese female with history of HTN, IDDM, HLD, COPD, CHF, ADAN, chronic respiratory failure (on home O2), left lower extremity DVT, CAD, arthritis, ELSI, and depression who presents [facility] with complaints of shortness of breath and chest pain. Patient reports increased shortness of breath after running out of home oxygen 1 day ago. She states she was unable to go to the bathroom or perform any ADLs due to worsening shortness of breath. She states feeling so uncomfortable as if "she was going to ", so she decided to call EMS for assistance. She also complains of cough with thick green sputum production x3 to 4 days. Endorses worsening bilateral lower extremity pitting edema. While in the waiting area in the ED she developed nonradiating left- sided chest pain. She describes her pain as some pain/someone sitting on her chest. She was treated with JOSE, and states that her pain has since resolved. Endorses mild generalized headache. Denies fever, chills, nausea, vomiting, diarrhea, abdominal pain, constipation, palpitation, noncompliance with meds, recent sick contacts Patient alert, awake. Says breathing better since she came into the hospital. Patient presently on 2 litres O2. O2 saturation running 93%. Patient afebrile. No leukocytosis. Blood pressure 185/100. Chest xray 11/15/20 reported Pulmonary vascular congestion. Otherwise, no significant abnormality. Patient is on I/V solumedrol, Albuterol/atrovent aerosol treatments,Levaquin - Patient Problems (1) Acute and chronic respiratory failure Current Visit: No Status: Acute Qualifiers: Respiratory failure complication: hypoxia Qualified Code(s): J96.21 - Acute and chronic respiratory failure with hypoxia Plan to address problem: O2 2 litres via nasal canula. Albuterol/atrovent aerosol treatments q 6 hours. Continue I/V solumedrol. Recommend DVT prophylaxis S/C Heparin. Continue famotidine. ABGs on room air. (2) COPD exacerbation Current Visit: Yes Status: Acute Plan to address problem: O2 2 litres via nasal canula. Albuterol/atrovent aerosol treatments q 6 hours. Continue I/V solumedrol. Recommend DVT prophylaxis S/C Heparin. Recommend GI prophylaxis Like prilosec Recommend Zithromax. ABGs on room air. (3) Acute diastolic heart failure Current Visit: Yes Status: Acute Plan to address problem: Management as per cardiology. (4) ACS (acute coronary syndrome) Current Visit: No Status: Acute Plan to address problem: Management as per Cardiology. (5) Accelerated hypertension Current Visit: No Status: Acute Plan to address problem: Management as per primary care. (6) Morbid obesity with body mass index of 40.0-49.9 Current Visit: No Status: Acute Plan to address problem: Recommend to loose weight. Diet and exercise. (7) Diabetes Current Visit: No Status: Chronic Plan to address problem: Management as per primary care. (8) ADAN (obstructive sleep apnea) Current Visit: No Status: Chronic Plan to address problem: BIPAP during night time (9) Tobacco use Current Visit: No Status: Chronic Plan to address problem: Counseled to stop smoking. Getting Nicoderm Patch.
--- NOTE | 2020-11-16 16:39 | Event Note ---
Date: 11/16/20 Patient seen and examined Vitals noted and BP appears to be significantly elevated Patient on 3 L nasal cannula O2 She states that she ran out of her home oxygen S1 and S2 positive, diminished breath sounds with few rhonchi auscultated bilaterally Patient is morbidly obese 60-year-old -[place] obese female with history of HTN, IDDM, HLD, COPD, CHF, ADAN, chronic respiratory failure (on home O2), left lower extremity DVT, CAD, arthritis, ELSI, and depression who presents [facility] with complaints of shortness of breath and chest pain. Review of medical record shows patient was previously admitted on 09/15/2020 with complaints of chest pain. During that admission patient underwent echo and PCI. Continue to monitor with serial cardiac enzymes, adjust BP meds, consulted cardiology Consulted case management for home O2 arrangement Follow clinically, continue current management and plan as dictated in the HPI It took me about 28 minutes to reevaluate and reasses this patient, discussed with RN/CM, review medical documents, lab results, imaging, medication list and placing order.
[2020-11-16] MEDS ORDERED: FORMOTEROL IH SCH (16:45)
[2020-11-16] MEDS ORDERED: BUDESONIDE IH SCH (16:45)
[2020-11-16] MEDS: INSULIN NPH/REGULAR 70/30 INJ SUB-Q SCH (17:34)
--- NOTE | 2020-11-16 18:01 | Electrocardiograph Report ---
[facility] Test Date: 2020-11-15 Test Time: 18:28:58 Pat Name: SHAHID FERNANDEZ Department: Room: A468 1 Gender: F Nailer Machine: ED : 1960 Requested By: ALISSA JUÁREZ Order Number: [id number] Reading MD: Andres Enriquez Measurements Intervals [place] Rate: 100 P: 60 MO: 152 QRS: 69 QRSD: 89 T: 73 QT: 400 QTc: 518 Interpretive Statements Sinus tachycardia LAE, consider biatrial enlargement Prolonged QT interval Compared to ECG 09/15/2020 12:36:37 No significant change Electronically Signed On 11-16-2020 18:00:59 EDT by Andres Enriquez
[2020-11-16] MEDS ORDERED: BUDESONIDE 0.5 MG/2 ML NEBU IH SCH (20:00)
[2020-11-16] MEDS: ARFORMOTEROL 15 MCG/2 ML NEBU IH SCH (20:45)
[2020-11-16] MEDS ORDERED: NON-FORMULARY EACH (Mirtazapine [Mirtazapine] 7.5 MG Tablet) PO SCH (22:00)
[2020-11-16] MEDS ORDERED: INSULIN REGULAR SQ SCH (22:00)
[2020-11-16] MEDS ORDERED: INSULIN ISOPHANE SQ SCH (22:00)
[2020-11-16] MEDS: SACUBITRIL/VALSARTAN 49-51 MG TAB PO SCH (22:10)
[2020-11-16] MEDS: MIRTAZAPINE 15 MG TAB PO SCH (22:12)
[2020-11-16] MEDS ORDERED: ALPRAZolam 0.5 MG TAB PO ONE (23:24)
[2020-11-17] MEDS: MORPHINE 2 MG/1 ML INJ IV PRN ×2 (00:23→10:29)
[2020-11-17] MEDS ORDERED: hydrALAZINE 20 MG/1 ML INJ IV ONE (01:35)
[2020-11-17] MEDS: methylPREDNISolone Sod Succinate 125 MG/2 ML INJ IV SCH ×3 (05:46→21:48)
[2020-11-17] MEDS: hydrALAZINE 100 MG TAB PO SCH ×3 (05:47→21:49)
[2020-11-17] MEDS: FUROSEMIDE 40 MG/4 ML INJ IV SCH ×2 (05:47→18:16)
[2020-11-17 06:32] LABS: Basophils % (Auto) 0.1 % (0.0-1.8); Lymphocytes # (Auto) 0.4 K/mm3 (1.2-5.4); Lymphocytes % (Auto) 7.3 % (13.4-35.0); Mean Corpuscular HGB Conc 28 % (30-34); Monocytes # (Auto) 0.3 K/mm3 (0.0-0.8); Monocytes % (Auto) 5.1 % (0.0-7.3); Platelet Count 334 K/mm3 (140-440); Red Blood Count 5.14 M/mm3 (3.65-5.03)
[2020-11-17 06:33] LABS: Hematocrit 31.7 % (30.3-42.9); Mean Corpuscular Volume 62 fl (79-97); Red Cell Distribution Width 24.3 % (13.2-15.2)
[2020-11-17 06:48] LABS: Albumin 3.5 g/dL (3.9-5); Blood Urea Nitrogen 19 mg/dL (7-17); Hemolysis Index 0
[2020-11-17 06:52] LABS: Alanine Aminotransferase < 5 units/L (7-56); BUN/Creatinine Ratio 27
[2020-11-17] MEDS: BUDESONIDE 0.5 MG/2 ML NEBU IH SCH ×2 (09:14→20:48)
[2020-11-17] MEDS: ARFORMOTEROL 15 MCG/2 ML NEBU IH SCH ×2 (09:15→20:48)
[2020-11-17] MEDS: IPRATROPIUM/ALBUTEROL SULFATE 3 ML AMPUL.NEB IH SCH ×4 (09:15→20:48)
[2020-11-17] MEDS ORDERED: NON-FORMULARY EACH (Dulaglutide [Trulicity] 0.75 MG/0.5 ML Pen.Injctr) SQ SCH (10:00)
[2020-11-17] MEDS ORDERED: carvediloL 6.25 MG TAB PO SCH (10:00)
[2020-11-17] MEDS: CLOPIDOGREL 75 MG TAB PO SCH (10:23)
[2020-11-17] MEDS: INSULIN NPH/REGULAR 70/30 INJ SUB-Q SCH ×2 (10:23→18:17)
[2020-11-17] MEDS: VENLAFAXINE 25 MG TAB PO SCH (10:24)
[2020-11-17] MEDS: FAMOTIDINE 20 MG TAB PO SCH ×2 (10:24→21:47)
[2020-11-17] MEDS: FLUoxetine 20 MG CAP PO SCH (10:24)
[2020-11-17] MEDS: METOPROLOL TARTRATE 50 MG TAB PO SCH ×2 (10:24→21:47)
[2020-11-17] MEDS: DOCUSATE SODIUM 100 MG CAP PO SCH ×2 (10:24→21:47)
[2020-11-17] MEDS: FERROUS SULFATE 325 MG TAB PO SCH ×2 (10:24→21:47)
[2020-11-17] MEDS: ASPIRIN EC 81 MG TAB PO SCH (10:24)
[2020-11-17] MEDS: POTASSIUM CHLORIDE ER 10 MEQ TAB PO SCH (10:24)
[2020-11-17] MEDS: CELECOXIB 200 MG CAP PO SCH (10:25)
[2020-11-17] MEDS: cloNIDine 0.2 MG TAB PO SCH ×2 (10:25→21:47)
[2020-11-17] MEDS: NICOTINE 14 MG/24 HR PATCH TD SCH (10:25)
[2020-11-17] MEDS: SACUBITRIL/VALSARTAN 49-51 MG TAB PO SCH ×2 (10:25→21:48)
[2020-11-17] MEDS: INSULIN LISPRO 100 UNIT/ML SUB-Q SCH ×4 (10:26→21:46)
[2020-11-17] MEDS: amLODIPine 10 MG TAB PO SCH (10:26)
--- NOTE | 2020-11-17 14:15 | Progress Note ---
Assessment and Plan Acute on chronic heart failure preserved ejection fraction in setting of coronary artery disease status post PCI * Pulmonary edema on CXR with bilateral on CXR with bilateral 2+ lower extremity edema. Lower extremity edema is significantly improved since yesterday * Echocardiogram reviewed (09/15/2020): LVEF is 50 to 55%. LV SF is normal. Moderate LVH. RV SF is normal. Moderate pulmonary hypertension cannot be excluded due to poor regurgitant envelope * Continue current volume control: Lasix 40 mg IV twice daily. Strict I/O's. Repeat BMP in a.m * Continue dual antiplatelet therapy. * Optimize antihypertensive regimen: Resume metoprolol 50 mg twice daily. Continue current antihypertensive regimen. ADAN * CPAP nightly DVT prophylaxis * Heparin SQ Currently stable cardiac status. Continuing with IV diuretics. Will follow This patient was seen in conjunction with Dr Roberto who agrees with this assessment and plan of care - Patient Problems (1) Acute respiratory failure with hypoxia Current Visit: Yes Status: Acute (2) COPD exacerbation Current Visit: Yes Status: Acute (3) Hypertensive emergency Current Visit: Yes Status: Acute (4) CAD (coronary artery disease) Current Visit: Yes Status: Chronic Qualifiers: Coronary Disease-Associated Artery/Lesion type: [place] artery [place] vs. transplanted heart: rampart heart Associated angina: with stable angina Qualified Code(s): I25.118 - Atherosclerotic heart disease of [place] coronary artery with other forms of angina pectoris (5) Stented coronary artery Current Visit: Yes Status: Chronic (6) Acute on chronic HFrEF (heart failure with reduced ejection fraction) Current Visit: Yes Status: Acute (7) DVT prophylaxis Current Visit: No Status: Acute (9) Cardiomyopathy Current Visit: No Status: Chronic Qualifiers: Cardiomyopathy type: ischemic Qualified Code(s): I25.5 - Ischemic cardiomyopathy (10) Diabetes mellitus, type 2 Current Visit: Yes Status: Chronic (11) HTN (hypertension) Current Visit: Yes Status: Chronic Qualifiers: Hypertension type: essential hypertension Qualified Code(s): I10 - Essential (primary) hypertension (12) Hyperlipidemia Current Visit: Yes Status: Chronic Qualifiers: Hyperlipidemia type: mixed hyperlipidemia Qualified Code(s): E78.2 - Mixed hyperlipidemia (13) ADAN (obstructive sleep apnea) Current Visit: Yes Status: Chronic (14) Tobacco use Current Visit: Yes Status: Chronic Subjective Date of service: 11/17/20 Principal diagnosis: Acute Respiratory Failure, COPD Exacerbation Interval history: Patient resting comfortably. No shortness of breath or chest pain overnight. Patient currently on supplemental O2 via nasal cannula 2 L/min. Telemetry reviewed: Sinus rhythm 95. No events Objective Last Vital Signs Temp 97.8 F 11/17/20 11:51 Pulse 81 11/17/20 11:51 Resp 20 11/17/20 11:51 BP 147/78 11/17/20 11:51 Pulse Ox 97 11/17/20 11:51 - Physical Examination General: No Apparent Distress HEENT: Positive: PERRL, Normocephaly, Mucus Membranes Moist Neck: Positive: neck supple, trachea midline Cardiac: Positive: Reg Rate and Rhythm, S1/S2 Lungs: Positive: Normal Breath Sounds, Oxygen Neuro: Positive: Grossly Intact Abdomen: Positive: Unremarkable, Soft Skin: Negative: Rash, Wound Musculoskeletal: No Pain Extremities: Present: upper extr. pulses, lower extr. pulses, +2 Edema (Bilateral lower extremity edema, improved since yesterday) - Labs and Meds Cardiac Enzymes 11/17/20 Range/Units 06:05 AST 6 (5-40) units/L CBC 11/17/20 Range/Units 06:05 WBC 6.1 (4.5-11.0) K/mm3 RBC 5.14 H (3.65-5.03) M/mm3 Hgb 9.0 L (10.1-14.3) gm/dl Hct 31.7 (30.3-42.9) % Plt Count 334 (140-440) K/mm3 Lymph # (Auto) 0.4 L (1.2-5.4) K/mm3 [place] # (Auto) 0.3 (0.0-0.8) K/mm3 Eos # (Auto) 0.0 (0.0-0.4) K/mm3 Baso # (Auto) 0.0 (0.0-0.1) K/mm3 Comprehensive Metabolic Panel 11/17/20 Range/Units 06:05 Sodium 135 L (137-145) mmol/L Potassium 4.7 (3.6-5.0) mmol/L Chloride 101.2 (98-107) mmol/L Carbon Dioxide 22 (22-30) mmol/L BUN 19 H (7-17) mg/dL Creatinine 0.7 (0.6-1.2) mg/dL Glucose 167 H (65-100) mg/dL Calcium 9.0 (8.4-10.2) mg/dL AST 6 (5-40) units/L ALT < 5 L (7-56) units/L Alkaline Phosphatase 169 H (35-129) units/L Total Protein 7.0 (6.3-8.2) g/dL Albumin 3.5 L (3.9-5) g/dL - Imaging and Cardiology EKG: report reviewed, image reviewed Echo: report reviewed Cardiac cath: report reviewed - Telemetry EKG Rhythm: Sinus Rhythm - EKG Sinus rhythms and dysrhythmias: sinus tachycardia
--- NOTE | 2020-11-17 15:01 | Progress Note ---
Assessment and Plan Acute on Chronic hypoxemic respiratory failure AE-COPD HFpEF Obstructive sleep apnea Morbid obesity Tobacco use disorder DM II Accelerated hypertension Anemia that is microcytic Elevated serum BNP - continue supplemental oxygen to keep O2 sats>90% - optimize cardiac function per cardiology - continue diuresis while monitoring electrolytes and hemodynamics - Nocturnal BIPAP and prn daytime use - complete empiric CAP AB's - continue bronchodilators with pulmonary hygiene per RT - no indication for systemic steroids - Accucheck with glycemic control for target BG < 180 mg/dl - VTE prophylaxis - Smoking cessation counselling done at the bedside - Nicotine withdrawal precautions - Cardioprotective measures, heart failure measures and education - PT/OT to Increase activity as tolerated - Weight loss and life style modifications - CXR and ABG prn - Influenza and pneumonia vaccination per protocol - Blood pressure control - continue other care per attending / other conbsultants ... re-evaluate in am & prn Subjective Date of service: 11/17/20 Principal diagnosis: Ac. on Ch. Resp failure; AE-COPD; AE-CHF; HTNsive Urgency; ADAN-OHS; Obesity Interval history: Patient is seen today for: Acute Hypoxemic and Hypercapnic Respiratory failure; AE-COPD; Acute CHF exacerbation; Hypertensive Urgency; ADAN-OHS; Tobacco use disorder-nicotine dependence; Morbid obesity Seen and examined at bedside; 24hour events reviewed; nursing and respiratory care staff consulted; no adverse overnight events reported to me; resting peacefully in bed; Objective Vital Signs - 12hr 11/17/20 11/17/20 11/17/20 04:31 08:00 08:58 Temperature 97.5 F L 98.6 F Pulse Rate 73 85 Pulse Rate [ 83 Bilateral Throughout] Respiratory 19 20 Rate Respiratory 19 Rate [Bilateral Throughout] Blood Pressure 153/87 143/76 O2 Sat by Pulse 94 92 Oximetry 11/17/20 11/17/20 11/17/20 09:16 11:51 14:00 Temperature 97.8 F Pulse Rate 81 Pulse Rate [ 64 Bilateral Throughout] Respiratory 20 Rate Respiratory 19 Rate [Bilateral Throughout] Blood Pressure 147/78 O2 Sat by Pulse 94 97 Oximetry Constitutional: alert, appears uncomfortable, other (Emotional and rest less.) Eyes: non-icteric ENT: oropharynx moist Neck: supple, no JVD Ascultation: Bilateral: wheezes Cardiovascular: regular rate and rhythm Gastrointestinal: normoactive bowel sounds, non-tender Integumentary: normal Extremities: no cyanosis, no edema Neurologic: non-focal exam, pupils equal and round Psychiatric: anxious, depressed CBC and BMP: 11/17/20 06:05 11/17/20 06:05 ABG, PT/INR, D-dimer: PT/INR, D-dimer D-Dimer 326.63 ng/mlDDU (0-234) H 11/17/20 06:05 Abnormal lab findings: Abnormal Labs 11/16/20 11/16/20 11/16/20 00:07 00:07 04:17 RBC 5.66 H Hgb MCV 63 L MCH 18 L MCHC 29 L RDW 24.1 H Lymph % (Auto) [place] % (Auto) 9.7 H Eos % (Auto) 6.7 H Baso % (Auto) 2.6 H Lymph # (Auto) 1.0 L Eos # (Auto) 0.5 H Baso # (Auto) 0.2 H Seg Neutrophils % D-Dimer Sodium Carbon Dioxide 18 L BUN Glucose POC Glucose Hemoglobin A1c 6.2 H ALT Alkaline Phosphatase NT-Pro-B Natriuret Pep 5512 H Albumin HDL Cholesterol 11/16/20 11/16/20 11/16/20 04:17 07:42 12:14 RBC Hgb MCV MCH MCHC RDW Lymph % (Auto) [place] % (Auto) Eos % (Auto) Baso % (Auto) Lymph # (Auto) Eos # (Auto) Baso # (Auto) Seg Neutrophils % D-Dimer Sodium Carbon Dioxide BUN Glucose POC Glucose 163 H 274 H Hemoglobin A1c ALT Alkaline Phosphatase NT-Pro-B Natriuret Pep Albumin HDL Cholesterol 22 L 11/16/20 11/16/20 11/17/20 15:37 21:11 06:05 RBC 5.14 H Hgb 9.0 L MCV 62 L MCH 18 L MCHC 28 L RDW 24.3 H Lymph % (Auto) 7.3 L [place] % (Auto) Eos % (Auto) Baso % (Auto) Lymph # (Auto) 0.4 L Eos # (Auto) Baso # (Auto) Seg Neutrophils % 87.5 H D-Dimer Sodium Carbon Dioxide BUN Glucose POC Glucose 204 H 158 H Hemoglobin A1c ALT Alkaline Phosphatase NT-Pro-B Natriuret Pep Albumin HDL Cholesterol 11/17/20 11/17/20 11/17/20 06:05 06:05 08:54 RBC Hgb MCV MCH MCHC RDW Lymph % (Auto) [place] % (Auto) Eos % (Auto) Baso % (Auto) Lymph # (Auto) Eos # (Auto) Baso # (Auto) Seg Neutrophils % D-Dimer 326.63 H Sodium 135 L Carbon Dioxide BUN 19 H Glucose 167 H POC Glucose 247 H Hemoglobin A1c ALT < 5 L Alkaline Phosphatase 169 H NT-Pro-B Natriuret Pep Albumin 3.5 L HDL Cholesterol 11/17/20 11:53 RBC Hgb MCV MCH MCHC RDW Lymph % (Auto) [place] % (Auto) Eos % (Auto) Baso % (Auto) Lymph # (Auto) Eos # (Auto) Baso # (Auto) Seg Neutrophils % D-Dimer Sodium Carbon Dioxide BUN Glucose POC Glucose 228 H Hemoglobin A1c ALT Alkaline Phosphatase NT-Pro-B Natriuret Pep Albumin HDL Cholesterol
--- NOTE | 2020-11-17 15:42 | Progress Note ---
Assessment and Plan --Acute on chronic diastolic heart failure started on Lasix iv Cardiology note reviewed Echocardiogram-EF 55 to 60% Continue to monitor I's and O's Daily weights --COPD exacerbation cont Bronchodilators, steroids, and abx Follows up with Dr. Rios in the office. She had a pulmonary function test performed recently but results are unknown as per patient --Acute hypoxic respiratory failure Uses oxygen at home-2 to 3 L of oxygen but recently discontinued Continue supplemental O2 to keep O2 sat more than 92% and wean off as tolerated --Hypertension Continue amlodipine, clonidine and Lasix --Depression, Patient started on fluoxetine --Hyperlipidemia, Continue statin --History of ADAN, Continue CPAP at at bedtime --Type 2 diabetes A1c 6.2, Well-diet controlled Continue SSI as ordered, consistent carb diet --Morbid obesity Counseling done on diet, weight loss and daily exercise if possible --Tobacco abuse Smoking cessation counseling was done --DVT prophylaxis-Heparin/Lovenox. --Disposition-likely home when stable for discharge Brief history: 60-year-old -Indian obese female with history of HTN, IDDM, HLD, COPD, CHF, ADAN, chronic respiratory failure (on home O2), left lower extremity DVT, CAD, arthritis, ELSI, and depression who presents [facility] with complaints of shortness of breath and chest pain. Review of medical record shows patient was previously admitted on 09/15/2020 with complaints of chest pain. During that admission patient underwent echo. Contin ue to monitor with serial cardiac enzymes, adjust BP meds, consulted cardiology. Patient also reported that she ran out of her home oxygen. Consulted case management for home O2 arrangement Follow clinically, continue current management and plan as dictated in the [facility] (2019): PCI with DIANELYS of mid ramus 70%. Echo (07/22/2020): EF 50 to 55%. Echo (06/2018): EF 35 to 40%. Daily clinical course: 8 feels better, states she is less short of breath, complains of cough with yellowish sputum, denies fever or chills. She denies any chest pain, or abdominal pain. Slightly improved lower extremity swelling. Cardiology wanted to continue IV diuretics. piping manager consulted for home O2 set up. Subjective Date of service: 11/17/20 Principal diagnosis: Ac. on Ch. Resp failure; AE-COPD; AE-CHF; HTNsive Urgency; ADAN-OHS; Obesity Interval history: Patient seen and examined. Medical records and medication list reviewed. No acute event overnight noted by the RN. Patient complains of cough and difficulty breathing even on resting. Patient is tolerating diet. Has significant lower extremity edema, currently on 3 to 4 L nasal cannula O2 Discussed plan of care at bedside with patient. Objective - Exam Narrative Exam: GENERAL: well-developed and morbidly obese elderly -Indian female bienvenido wright on bed appeared to be in no discomfort. HEENT: Normocephalic. Atraumatic. No conjunctival congestion or icterus. Patient has moist mucous membranes. NECK: Supple. Trachea midline. CHEST/LUNGS: + wheezes auscultated bilaterally, breathing nonlabored. + few crackles HEART/CARDIOVASCULAR: Regular in rate and rhythm. S1 and S2 positive. ABDOMEN: Abdomen is soft, nontender. Patient has normal bowel sounds. SKIN: There is no rash. Warm and dry. NEURO: No focal motor deficit. Follows command. MUSCULOSKELETAL: No joint effusion or tenderness. EXTRIMITY: 3+ pitting edema, no cyanosis or clubbing. PSYCH: Cooperative. - Constitutional Vitals: Vital Signs - 12hr 11/17/20 11/17/20 11/17/20 04:31 08:00 08:58 Temperature 97.5 F L 98.6 F Pulse Rate 73 85 Pulse Rate [ 83 Bilateral Throughout] Respiratory 19 20 Rate Respiratory 19 Rate [Bilateral Throughout] Blood Pressure 153/87 143/76 O2 Sat by Pulse 94 92 Oximetry 11/17/20 11/17/20 11/17/20 09:16 11:51 14:00 Temperature 97.8 F Pulse Rate 81 Pulse Rate [ 64 Bilateral Throughout] Respiratory 20 Rate Respiratory 19 Rate [Bilateral Throughout] Blood Pressure 147/78 O2 Sat by Pulse 94 97 Oximetry - Labs CBC & Chem 7: 11/19/20 04:59 11/19/20 04:59 Labs: Abnormal lab results 11/16/20 11/16/20 11/17/20 Range/Units 15:37 21:11 06:05 RBC 5.14 H (3.65-5.03) M/mm3 Hgb 9.0 L (10.1-14.3) gm/dl MCV 62 L (79-97) fl MCH 18 L (28-32) pg MCHC 28 L (30-34) % RDW 24.3 H (13.2-15.2) % Lymph % (Auto) 7.3 L (13.4-35.0) % Lymph # (Auto) 0.4 L (1.2-5.4) K/mm3 Seg Neutrophils % 87.5 H (40.0-70.0) % D-Dimer (0-234) ng/mlDDU Sodium (137-145) mmol/L BUN (7-17) mg/dL Glucose (65-100) mg/dL POC Glucose 204 H 158 H (70-105) mg/dL ALT (7-56) units/L Alkaline Phosphatase (35-129) units/L Albumin (3.9-5) g/dL 11/17/20 11/17/20 11/17/20 Range/Units 06:05 06:05 08:54 RBC (3.65-5.03) M/mm3 Hgb (10.1-14.3) gm/dl MCV (79-97) fl MCH (28-32) pg MCHC (30-34) % RDW (13.2-15.2) % Lymph % (Auto) (13.4-35.0) % Lymph # (Auto) (1.2-5.4) K/mm3 Seg Neutrophils % (40.0-70.0) % D-Dimer 326.63 H (0-234) ng/mlDDU Sodium 135 L (137-145) mmol/L BUN 19 H (7-17) mg/dL Glucose 167 H (65-100) mg/dL POC Glucose 247 H (70-105) mg/dL ALT < 5 L (7-56) units/L Alkaline Phosphatase 169 H (35-129) units/L Albumin 3.5 L (3.9-5) g/dL 11/17/20 Range/Units 11:53 RBC (3.65-5.03) M/mm3 Hgb (10.1-14.3) gm/dl MCV (79-97) fl MCH (28-32) pg MCHC (30-34) % RDW (13.2-15.2) % Lymph % (Auto) (13.4-35.0) % Lymph # (Auto) (1.2-5.4) K/mm3 Seg Neutrophils % (40.0-70.0) % D-Dimer (0-234) ng/mlDDU Sodium (137-145) mmol/L BUN (7-17) mg/dL Glucose (65-100) mg/dL POC Glucose 228 H (70-105) mg/dL ALT (7-56) units/L Alkaline Phosphatase (35-129) units/L Albumin (3.9-5) g/dL HEART Score - HEART Score Troponin: Troponin T < 0.010 ng/mL (0.00-0.029) 11/17/20 06:05
[2020-11-17] MEDS: MIRTAZAPINE 15 MG TAB PO SCH (21:46)
[2020-11-17] MEDS: levoFLOXacin 500 MG TAB PO SCH (21:47)
[2020-11-17] MEDS: oxyCODONE /ACETAMINOPHEN 5-325MG TAB PO PRN (21:57)
[2020-11-17] MEDS: ALPRAZolam 0.5 MG TAB PO PRN (21:58)
[2020-11-18] MEDS: IPRATROPIUM/ALBUTEROL SULFATE 3 ML AMPUL.NEB IH SCH ×4 (05:35→19:46)
[2020-11-18] MEDS: FUROSEMIDE 40 MG/4 ML INJ IV SCH ×2 (06:55→17:44)
[2020-11-18] MEDS: methylPREDNISolone Sod Succinate 125 MG/2 ML INJ IV SCH ×3 (06:55→22:07)
[2020-11-18] MEDS: hydrALAZINE 100 MG TAB PO SCH ×3 (06:55→22:08)
[2020-11-18] MEDS: INSULIN LISPRO 100 UNIT/ML SUB-Q SCH ×4 (07:59→22:10)
[2020-11-18] MEDS: INSULIN NPH/REGULAR 70/30 INJ SUB-Q SCH ×2 (07:59→17:44)
--- NOTE | 2020-11-18 08:40 | Progress Note ---
Assessment and Plan Acute on Chronic hypoxemic respiratory failure AE-COPD HFpEF Obstructive sleep apnea Morbid obesity Tobacco use disorder DM II Accelerated hypertension Anemia that is microcytic Elevated serum BNP - continue to titrate supplemental oxygen to keep SpO2 89-92% - continue bronchodilators with pulmonary hygiene per RT - no indication for systemic steroids at this time - continue diuresis while monitoring electrolytes and hemodynamics - Nocturnal BIPAP and prn daytime use - complete empiric CAP antibitoic therapy - Accucheck with glycemic control for target BG < 180 mg/dl - VTE prophylaxis - Smoking cessation counselling done at the bedside - Nicotine withdrawal precautions - PT/OT to Increase activity as tolerated - Weight loss and life style modifications - CXR and ABG as clinically indicated - Influenza and pneumonia vaccination per protocol - Blood pressure control - Cardioprotective measures, heart failure measures and education - optimize cardiac function per cardiology - continue other care per attending / other conbsultants Subjective Date of service: 11/18/20 Principal diagnosis: Ac. on Ch. Resp failure; AE-COPD; AE-CHF; HTNsive Urgency; ADAN-OHS; Obesity Interval history: Patient is seen today for: Acute Hypoxemic and Hypercapnic Respiratory failure; AE-COPD; Acute CHF exacerbation; Hypertensive Urgency; ADAN-OHS; Tobacco use disorder-nicotine dependence; Morbid obesity Seen and examined at bedside; 24hour events reviewed; nursing and respiratory care staff consulted; no adverse overnight events reported to me; resting peacefully in bed; remains on supplemental oxygen, denies any chest pain, no shortness of breath, no fevers, no chills, no nausea or vomiting. Slowly improving Objective Vital Signs - 12hr 11/17/20 11/17/20 11/18/20 20:51 23:07 03:12 Temperature 97.7 F 97.3 F L Pulse Rate 80 57 L Pulse Rate [ 66 Bilateral Throughout] Respiratory 19 20 Rate Respiratory 19 Rate [Bilateral Throughout] Blood Pressure 134/73 131/79 Blood Pressure [Right] O2 Sat by Pulse 98 95 95 Oximetry 11/18/20 08:11 Temperature 98.4 F Pulse Rate 60 Pulse Rate [ Bilateral Throughout] Respiratory 18 Rate Respiratory Rate [Bilateral Throughout] Blood Pressure Blood Pressure 134/76 [Right] O2 Sat by Pulse 91 Oximetry Constitutional: alert, appears uncomfortable, other (Emotional and rest less.) Eyes: non-icteric ENT: oropharynx moist Neck: supple, no JVD Ascultation: Bilateral: wheezes Cardiovascular: regular rate and rhythm Gastrointestinal: normoactive bowel sounds, non-tender Integumentary: normal Extremities: no cyanosis, no edema Neurologic: non-focal exam, pupils equal and round Psychiatric: anxious, depressed CBC and BMP: 11/19/20 04:59 11/19/20 04:59 ABG, PT/INR, D-dimer: PT/INR, D-dimer D-Dimer 326.63 ng/mlDDU (0-234) H 11/17/20 06:05 Abnormal lab findings: Abnormal Labs 11/16/20 11/16/20 11/16/20 00:07 00:07 04:17 RBC 5.66 H Hgb MCV 63 L MCH 18 L MCHC 29 L RDW 24.1 H Lymph % (Auto) Turner % (Auto) 9.7 H Eos % (Auto) 6.7 H Baso % (Auto) 2.6 H Lymph # (Auto) 1.0 L Eos # (Auto) 0.5 H Baso # (Auto) 0.2 H Seg Neutrophils % D-Dimer Sodium Carbon Dioxide 18 L BUN Glucose POC Glucose Hemoglobin A1c 6.2 H ALT Alkaline Phosphatase NT-Pro-B Natriuret Pep 5512 H Albumin HDL Cholesterol 11/16/20 11/16/20 11/16/20 04:17 07:42 12:14 RBC Hgb MCV MCH MCHC RDW Lymph % (Auto) [place] % (Auto) Eos % (Auto) Baso % (Auto) Lymph # (Auto) Eos # (Auto) Baso # (Auto) Seg Neutrophils % D-Dimer Sodium Carbon Dioxide BUN Glucose POC Glucose 163 H 274 H Hemoglobin A1c ALT Alkaline Phosphatase NT-Pro-B Natriuret Pep Albumin HDL Cholesterol 22 L 11/16/20 11/16/20 11/17/20 15:37 21:11 06:05 RBC 5.14 H Hgb 9.0 L MCV 62 L MCH 18 L MCHC 28 L RDW 24.3 H Lymph % (Auto) 7.3 L Turner % (Auto) Eos % (Auto) Baso % (Auto) Lymph # (Auto) 0.4 L Eos # (Auto) Baso # (Auto) Seg Neutrophils % 87.5 H D-Dimer Sodium Carbon Dioxide BUN Glucose POC Glucose 204 H 158 H Hemoglobin A1c ALT Alkaline Phosphatase NT-Pro-B Natriuret Pep Albumin HDL Cholesterol 11/17/20 11/17/20 11/17/20 06:05 06:05 08:54 RBC Hgb MCV MCH MCHC RDW Lymph % (Auto) [place] % (Auto) Eos % (Auto) Baso % (Auto) Lymph # (Auto) Eos # (Auto) Baso # (Auto) Seg Neutrophils % D-Dimer 326.63 H Sodium 135 L Carbon Dioxide BUN 19 H Glucose 167 H POC Glucose 247 H Hemoglobin A1c ALT < 5 L Alkaline Phosphatase 169 H NT-Pro-B Natriuret Pep Albumin 3.5 L HDL Cholesterol 11/17/20 11/17/20 11/17/20 11:53 16:52 20:27 RBC Hgb MCV MCH MCHC RDW Lymph % (Auto) Turner % (Auto) Eos % (Auto) Baso % (Auto) Lymph # (Auto) Eos # (Auto) Baso # (Auto) Seg Neutrophils % D-Dimer Sodium Carbon Dioxide BUN Glucose POC Glucose 228 H 178 H 183 H Hemoglobin A1c ALT Alkaline Phosphatase NT-Pro-B Natriuret Pep Albumin HDL Cholesterol 11/18/20 08:09 RBC Hgb MCV MCH MCHC RDW Lymph % (Auto) Turner % (Auto) Eos % (Auto) Baso % (Auto) Lymph # (Auto) Eos # (Auto) Baso # (Auto) Seg Neutrophils % D-Dimer Sodium Carbon Dioxide BUN Glucose POC Glucose 160 H Hemoglobin A1c ALT Alkaline Phosphatase NT-Pro-B Natriuret Pep Albumin HDL Cholesterol
[2020-11-18] MEDS: ARFORMOTEROL 15 MCG/2 ML NEBU IH SCH ×2 (09:25→19:47)
[2020-11-18] MEDS: BUDESONIDE 0.5 MG/2 ML NEBU IH SCH ×2 (09:28→19:46)
[2020-11-18] MEDS: amLODIPine 10 MG TAB PO SCH (09:38)
[2020-11-18] MEDS: CELECOXIB 200 MG CAP PO SCH (09:38)
[2020-11-18] MEDS: DOCUSATE SODIUM 100 MG CAP PO SCH ×2 (09:39→22:08)
[2020-11-18] MEDS: cloNIDine 0.2 MG TAB PO SCH ×2 (09:39→22:07)
[2020-11-18] MEDS: CLOPIDOGREL 75 MG TAB PO SCH (09:39)
[2020-11-18] MEDS: METOPROLOL TARTRATE 50 MG TAB PO SCH ×2 (09:39→22:09)
[2020-11-18] MEDS: FAMOTIDINE 20 MG TAB PO SCH ×2 (09:39→22:06)
[2020-11-18] MEDS: FLUoxetine 20 MG CAP PO SCH (09:39)
[2020-11-18] MEDS: NICOTINE 14 MG/24 HR PATCH TD SCH (09:39)
[2020-11-18] MEDS: POTASSIUM CHLORIDE ER 10 MEQ TAB PO SCH (09:39)
[2020-11-18] MEDS: VENLAFAXINE 25 MG TAB PO SCH (09:39)
[2020-11-18] MEDS: FERROUS SULFATE 325 MG TAB PO SCH ×2 (09:39→22:08)
[2020-11-18] MEDS: SACUBITRIL/VALSARTAN 49-51 MG TAB PO SCH (09:39)
[2020-11-18] MEDS: ASPIRIN EC 81 MG TAB PO SCH (09:39)
[2020-11-18 09:52] LABS: BUN/Creatinine Ratio 31; Blood Urea Nitrogen 28 mg/dL (7-17); Calcium 9.1 mg/dL (8.4-10.2); Hemolysis Index 81
[2020-11-18 09:53] LABS: Mean Corpuscular HGB Conc 29 % (30-34); Platelet Count 306 K/mm3 (140-440); Red Blood Count 5.38 M/mm3 (3.65-5.03)
[2020-11-18 09:57] LABS: Hematocrit 33.5 % (30.3-42.9); Hemoglobin 9.8 gm/dl (10.1-14.3); Mean Corpuscular Volume 62 fl (79-97); Red Cell Distribution Width 24.1 % (13.2-15.2)
[2020-11-18] MEDS ORDERED: SODIUM POLYSTYRENE 15 GM/60 ML ORAL LIQD PO ONE (11:00)
--- NOTE | 2020-11-18 12:38 | Progress Note ---
Assessment and Plan Acute on chronic heart failure preserved ejection fraction in setting of coronary artery disease status post PCI * Pulmonary edema on CXR with with bilateral 1+ lower extremity edema. Lower extremity edema is significantly improved since yesterday * Echocardiogram reviewed (09/15/2020): LVEF is 50 to 55%. LV SF is normal. Moderate LVH. RV SF is normal. Moderate pulmonary hypertension cannot be excluded due to poor regurgitant envelope * Continue current volume control: Lasix 40 mg IV twice daily. Strict I/O's. Repeat BMP in a.m * Continue dual antiplatelet therapy. * Optimize antihypertensive regimen. Discontinue Entresto due to hyperkalemia ADAN * CPAP nightly DVT prophylaxis * Heparin SQ Currently stable cardiac status. Bilateral lower extremity edema is significantly improved, 1+. Anticipate 1 more day of IV diuresis. Will follow Patient should follow-up with Dr Hernandez, [facility] in our [place] location on 11/28/2020 at 2:30 PM. #[phone] This patient was seen in conjunction with Dr Roberto who agrees with this assessment and plan of care - Patient Problems (1) Acute respiratory failure with hypoxia Current Visit: Yes Status: Acute (2) COPD exacerbation Current Visit: Yes Status: Acute (3) Hypertensive emergency Current Visit: Yes Status: Acute (4) CAD (coronary artery disease) Current Visit: Yes Status: Chronic Qualifiers: Coronary Disease-Associated Artery/Lesion type: council artery [place] vs. transplanted heart: council heart Associated angina: with stable angina Ethan lified Code(s): I25.118 - Atherosclerotic heart disease of council coronary artery with other forms of angina pectoris (5) Stented coronary artery Current Visit: Yes Status: Chronic (6) Acute on chronic HFrEF (heart failure with reduced ejection fraction) Current Visit: Yes Status: Acute (7) DVT prophylaxis Current Visit: No Status: Acute (9) Cardiomyopathy Current Visit: No Status: Chronic Qualifiers: Cardiomyopathy type: ischemic Qualified Code(s): I25.5 - Ischemic cardiomyopathy (10) Diabetes mellitus, type 2 Current Visit: Yes Status: Chronic (11) HTN (hypertension) Current Visit: Yes Status: Chronic Qualifiers: Hypertension type: essential hypertension Qualified Code(s): I10 - Essential (primary) hypertension (12) Hyperlipidemia Current Visit: Yes Status: Chronic Qualifiers: Hyperlipidemia type: mixed hyperlipidemia Qualified Code(s): E78.2 - Mixed hyperlipidemia (13) ADAN (obstructive sleep apnea) Current Visit: Yes Status: Chronic (14) Tobacco use Current Visit: Yes Status: Chronic Subjective Date of service: 11/18/20 Principal diagnosis: Ac. on Ch. Resp failure; AE-COPD; AE-CHF; HTNsive Urgency; ADAN-OHS; Obesity Interval history: Patient resting comfortably in bed currently receiving albuterol breathing [place]. No chest pain overnight, some mild shortness of breath Telemetry reviewed: Sinus rhythm 67. No events Objective Last Vital Signs Temp 98.4 F 11/18/20 08:11 Pulse 60 11/18/20 08:11 Resp 18 11/18/20 08:11 BP 134/76 11/18/20 08:11 Pulse Ox 91 11/18/20 08:11 - Physical Examination General: No Apparent Distress HEENT: Positive: PERRL, Normocephaly, Mucus Membranes Moist Neck: Positive: neck supple, trachea midline Cardiac: Positive: Reg Rate and Rhythm, S1/S2 Lungs: Positive: Decreased Breath Sounds Neuro: Positive: Grossly Intact Abdomen: Positive: Unremarkable, Soft Skin: Negative: Rash, Wound Musculoskeletal: No Pain Extremities: Present: upper extr. pulses, lower extr. pulses, +1 Edema (Bilateral lower extremity edema is significantly improved since yesterday) - Labs and Meds CBC 11/18/20 Range/Units 08:10 WBC 10.4 (4.5-11.0) K/mm3 RBC 5.38 H (3.65-5.03) M/mm3 Hgb 9.8 L (10.1-14.3) gm/dl Hct 33.5 (30.3-42.9) % Plt Count 306 (140-440) K/mm3 Comprehensive Metabolic Panel 11/18/20 Range/Units 08:10 Sodium 136 L (137-145) mmol/L Potassium 5.6 H (3.6-5.0) mmol/L Chloride 100.3 (98-107) mmol/L Carbon Dioxide 25 (22-30) mmol/L BUN 28 H (7-17) mg/dL Creatinine 0.9 (0.6-1.2) mg/dL Glucose 142 H (65-100) mg/dL Calcium 9.1 (8.4-10.2) mg/dL - Imaging and Cardiology EKG: report reviewed, image reviewed Echo: report reviewed Cardiac cath: report reviewed - EKG Sinus rhythms and dysrhythmias: sinus tachycardia
[2020-11-18] MEDS: oxyCODONE /ACETAMINOPHEN 5-325MG TAB PO PRN (13:08)
[2020-11-18] MEDS ORDERED: SODIUM BICARB 8.4% 50 MEQ/50 ML SYRINGE IV ONE (14:00)
[2020-11-18] MEDS: MORPHINE 2 MG/1 ML INJ IV PRN ×2 (14:34→22:14)
[2020-11-18] MEDS: ALPRAZolam 0.5 MG TAB PO PRN (17:49)
--- NOTE | 2020-11-18 18:46 | Progress Note ---
Assessment and Plan --Acute on chronic diastolic heart failure started on Lasix iv Cardiology note reviewed Echocardiogram-EF 55 to 60% Continue to monitor I's and O's Daily weights --COPD exacerbation cont Bronchodilators, steroids, and abx Follows up with Dr. Rios in the office. She had a pulmonary function test performed recently but results are unknown as per patient --Acute hypoxic respiratory failure Uses oxygen at home-2 to 3 L of oxygen but recently discontinued Continue supplemental O2 to keep O2 sat more than 92% and wean off as tolerated --Hypertension Continue amlodipine, clonidine and Lasix --Depression, Patient started on fluoxetine --Hyperlipidemia, Continue statin --History of ADAN, Continue CPAP at at bedtime --Type 2 diabetes A1c 6.2, Well-diet controlled Continue SSI as ordered, consistent carb diet --Morbid obesity Counseling done on diet, weight loss and daily exercise if possible --Tobacco abuse Smoking cessation counseling was done --DVT prophylaxis-Heparin/Lovenox. --Disposition-likely home when stable for discharge Brief history: 60-year-old -German obese female with history of HTN, IDDM, HLD, COPD, CHF, ADAN, chronic respiratory failure (on home O2), left lower extremity DVT, CAD, arthritis, ELSI, and depression who presents [facility] with complaints of shortness of breath and chest pain. Review of medical record shows patient was previously admitted on 09/15/2020 with complaints of chest pain. During that admission patient underwent echo. Contin ue to monitor with serial cardiac enzymes, adjust BP meds, consulted cardiology. Patient also reported that she ran out of her home oxygen. Consulted case management for home O2 arrangement Follow clinically, continue current management and plan as dictated in the [facility] (2019): PCI with DIANELYS of mid ramus 70%. Echo (07/22/2020): EF 50 to 55%. Echo (06/2018): EF 35 to 40%. Daily clinical course: 11/17 feels better, states she is less short of breath, complains of cough with yellowish sputum, denies fever or chills. She denies any chest pain, or abdominal pain. Slightly improved lower extremity swelling. Cardiology wanted to continue IV diuretics. med spa manager consulted for home O2 set up. 11/18/20: Patient continues to have difficulty breathing with lower extremity swelling. Diuresing well with current diuretic doses. Potassium level 5.6 today, ordered for Kayexalate, repeat BMP tomorrow. Will assess for home O2 requirement on discharge. Continue current management and plan, discussed with cardiology -appreciate recommendation. Subjective Date of service: 11/18/20 Principal diagnosis: Ac. on Ch. Resp failure; AE-COPD; AE-CHF; HTNsive Urgency; ADAN-OHS; Obesity Interval history: Patient seen and examined. Medical records and medication list reviewed. No acute event overnight noted by the RN. Patient complains of cough and difficulty breathing even on minimal exertion. Patient is tolerating diet. Lower extremity swelling improved, currently on 3 to 4 L nasal cannula O2 Discussed plan of care at bedside with patient. Objective - Exam Narrative Exam: GENERAL: well-developed and morbidly obese elderly -German female lying on bed appeared to be in no discomfort. HEENT: Normocephalic. Atraumatic. No conjunctival congestion or icterus. Patient has moist mucous membranes. NECK: Supple. Trachea midline. CHEST/LUNGS: + wheezes auscultated bilaterally, breathing nonlabored. + few crackles HEART/CARDIOVASCULAR: Regular in rate and rhythm. S1 and S2 positive. ABDOMEN: Abdomen is soft, nontender. Patient has normal bowel sounds. SKIN: There is no rash. Warm and dry. NEURO: No focal motor deficit. Follows command. MUSCULOSKELETAL: No joint effusion or tenderness. EXTRIMITY: 3+ pitting edema, no cyanosis or clubbing. PSYCH: Cooperative. - Constitutional Vitals: Vital Signs - 12hr 11/18/20 11/18/20 11/18/20 08:11 10:00 11:34 Temperature 98.4 F 98.2 F Pulse Rate 60 54 L Pulse Rate [ Bilateral Throughout] Respiratory 18 16 Rate Respiratory Rate [Bilateral Throughout] Blood Pressure 134/76 133/83 [Right] O2 Sat by Pulse 91 98 89 Oximetry 11/18/20 11/18/20 14:19 16:41 Temperature 97.6 F Pulse Rate 61 Pulse Rate [ 97 H Bilateral Throughout] Respiratory 16 Rate Respiratory 16 Rate [Bilateral Throughout] Blood Pressure 124/75 [Right] O2 Sat by Pulse 82 L Oximetry - Labs CBC & Chem 7: 11/19/20 04:59 11/19/20 04:59 Labs: Abnormal lab results 11/17/20 11/18/20 11/18/20 Range/Units 20:27 08:09 08:10 RBC 5.38 H (3.65-5.03) M/mm3 Hgb 9.8 L (10.1-14.3) gm/dl MCV 62 L (79-97) fl MCH 18 L (28-32) pg MCHC 29 L (30-34) % RDW 24.1 H (13.2-15.2) % Sodium (137-145) mmol/L Potassium (3.6-5.0) mmol/L BUN (7-17) mg/dL Glucose (65-100) mg/dL POC Glucose 183 H 160 H (70-105) mg/dL 11/18/20 11/18/20 11/18/20 Range/Units 08:10 12:06 16:07 RBC (3.65-5.03) M/mm3 Hgb (10.1-14.3) gm/dl MCV (79-97) fl MCH (28-32) pg MCHC (30-34) % RDW (13.2-15.2) % Sodium 136 L (137-145) mmol/L Potassium 5.6 H (3.6-5.0) mmol/L BUN 28 H (7-17) mg/dL Glucose 142 H (65-100) mg/dL POC Glucose 258 H 173 H (70-105) mg/dL HEART Score - HEART Score Troponin: Troponin T < 0.010 ng/mL (0.00-0.029) 11/17/20 06:05
[2020-11-18] MEDS: MIRTAZAPINE 15 MG TAB PO SCH (22:08)
[2020-11-18] MEDS: levoFLOXacin 500 MG TAB PO SCH (22:13)
[2020-11-19] MEDS: IPRATROPIUM/ALBUTEROL SULFATE 3 ML AMPUL.NEB IH SCH ×4 (00:45→14:18)
[2020-11-19] MEDS: methylPREDNISolone Sod Succinate 125 MG/2 ML INJ IV SCH (05:16)
[2020-11-19] MEDS: hydrALAZINE 100 MG TAB PO SCH ×2 (05:16→14:00)
[2020-11-19] MEDS: FUROSEMIDE 40 MG/4 ML INJ IV SCH (05:16)
[2020-11-19 06:59] LABS: Mean Corpuscular HGB Conc 29 % (30-34); Platelet Count 349 K/mm3 (140-440); Red Blood Count 5.57 M/mm3 (3.65-5.03)
[2020-11-19 07:02] LABS: BUN/Creatinine Ratio 37; Blood Urea Nitrogen 33 mg/dL (7-17); Calcium 8.6 mg/dL (8.4-10.2); Hemolysis Index 5
[2020-11-19 07:31] LABS: Mean Corpuscular Volume 63 fl (79-97)
[2020-11-19] MEDS: BUDESONIDE 0.5 MG/2 ML NEBU IH SCH (08:32)
[2020-11-19] MEDS: ARFORMOTEROL 15 MCG/2 ML NEBU IH SCH (08:32)
[2020-11-19] MEDS: INSULIN LISPRO 100 UNIT/ML SUB-Q SCH ×2 (08:59→12:00)
--- NOTE | 2020-11-19 09:26 | Progress Note ---
Assessment and Plan Acute on chronic heart failure preserved ejection fraction in setting of coronary artery disease status post PCI * Bilateral 1+/2+ lower extremity edema. Lower extremity edema is significantly improved since yesterday * Echocardiogram reviewed (09/15/2020): LVEF is 50 to 55%. LV SF is normal. Moderate LVH. RV SF is normal. Moderate pulmonary hypertension cannot be excluded due to poor regurgitant envelope * Continue dual antiplatelet therapy. * Optimize antihypertensive regimen: Decrease metoprolol to 25 mg twice daily due to ongoing respiratory distress requiring albuterol nebulized treatments * Comfort diuresis to Lasix p.o. 40 mg daily ADAN * CPAP nightly DVT prophylaxis * Heparin SQ Currently stable cardiac status. Bilateral lower extremity edema is improved. Patient still complaining of shortness of breath requiring O2 support. Will follow Patient should follow-up with Dr Hernandez, [facility] in our [place] location on 11/28/2020 at 2:30 PM. #[id number] This patient was seen in conjunction with Dr Roberto who agrees with this assessment and plan of care - Patient Problems (1) Acute respiratory failure with hypoxia Current Visit: Yes Status: Acute (2) COPD exacerbation Current Visit: Yes Status: Acute (3) Hypertensive emergency Current Visit: Yes Status: Acute (4) CAD (coronary artery disease) Current Visit: Yes Status: Chronic Qualifiers: Coronary Disease-Associated Artery/Lesion type: [place] artery [place] vs. transplanted heart: [place] heart Associated angina: with stable angina Qualified Code(s): I25.118 - Atherosclerotic heart disease of [place] coronary artery with other forms of angina pectoris (5) Stented coronary artery Current Visit: Yes Status: Chronic (6) Acute on chronic HFrEF (heart failure with reduced ejection fraction) Current Visit: Yes Status: Acute (7) DVT prophylaxis Current Visit: No Status: Acute (9) Cardiomyopathy Current Visit: No Status: Chronic Qualifiers: Cardiomyopathy type: ischemic Qualified Code(s): I25.5 - Ischemic cardiomyopathy (10) Diabetes mellitus, type 2 Current Visit: Yes Status: Chronic (11) HTN (hypertension) Current Visit: Yes Status: Chronic Qualifiers: Hypertension type: essential hypertension Qualified Code(s): I10 - Essential (primary) hypertension (12) Hyperlipidemia Current Visit: Yes Status: Chronic Qualifiers: Hyperlipidemia type: mixed hyperlipidemia Qualified Code(s): E78.2 - Mixed hyperlipidemia (13) ADAN (obstructive sleep apnea) Current Visit: Yes Status: Chronic (14) Tobacco use Current Visit: Yes Status: Chronic Subjective Date of service: 11/19/20 Principal diagnosis: Ac. on Ch. Resp failure; AE-COPD; AE-CHF; HTNsive Urgency; ADAN-OHS; Obesity Interval history: Patient resting in bed with complaint of ongoing respiratory distress. Patient is still requiring supplemental O2 via nasal cannula 3 L/min. Bilateral lower extremity edema is improved to 1+/2+. Telemetry reviewed: Sinus rhythm 83. No events Objective Last Vital Signs Temp 98.1 F 11/19/20 05:22 Pulse 58 L 11/19/20 05:22 Resp 20 11/19/20 05:22 BP 128/68 11/19/20 05:22 Pulse Ox 94 11/19/20 05:22 - Physical Examination General: No Apparent Distress HEENT: Positive: PERRL, Normocephaly, Mucus Membranes Moist Neck: Positive: neck supple, trachea midline Cardiac: Positive: Reg Rate and Rhythm, S1/S2 Lungs: Positive: Decreased Breath Sounds, Wheezes Neuro: Positive: Grossly Intact Abdomen: Positive: Unremarkable, Soft Skin: Negative: Rash, Wound Musculoskeletal: No Pain Extremities: Present: upper extr. pulses, lower extr. pulses, +1 Edema - Labs and Meds CBC 11/18/20 11/19/20 Range/Units 08:10 04:59 WBC 10.4 12.0 H (4.5-11.0) K/mm3 RBC 5.38 H 5.57 H (3.65-5.03) M/mm3 Hgb 9.8 L 10.0 L (10.1-14.3) gm/dl Hct 33.5 35.0 (30.3-42.9) % Plt Count 306 349 (140-440) K/mm3 Comprehensive Metabolic Panel 11/18/20 11/19/20 Range/Units 08:10 04:59 Sodium 136 L 143 D (137-145) mmol/L Potassium 5.6 H 4.9 (3.6-5.0) mmol/L Chloride 100.3 104.2 (98-107) mmol/L Carbon Dioxide 25 26 (22-30) mmol/L BUN 28 H 33 H (7-17) mg/dL Creatinine 0.9 0.9 (0.6-1.2) mg/dL Glucose 142 H 156 H (65-100) mg/dL Calcium 9.1 8.6 (8.4-10.2) mg/dL - Imaging and Cardiology EKG: report reviewed, image reviewed Echo: report reviewed Cardiac cath: report reviewed - Telemetry EKG Rhythm: Sinus Rhythm - EKG Sinus rhythms and dysrhythmias: sinus tachycardia
[2020-11-19] MEDS: NICOTINE 14 MG/24 HR PATCH TD SCH (10:24)
[2020-11-19] MEDS: VENLAFAXINE 25 MG TAB PO SCH (10:24)
[2020-11-19] MEDS: INSULIN NPH/REGULAR 70/30 INJ SUB-Q SCH (10:24)
[2020-11-19] MEDS: CELECOXIB 200 MG CAP PO SCH (10:25)
[2020-11-19] MEDS: CLOPIDOGREL 75 MG TAB PO SCH (10:25)
[2020-11-19] MEDS: FAMOTIDINE 20 MG TAB PO SCH (10:25)
[2020-11-19] MEDS: DOCUSATE SODIUM 100 MG CAP PO SCH (10:25)
[2020-11-19] MEDS: METOPROLOL TARTRATE 50 MG TAB PO SCH (10:25)
[2020-11-19] MEDS: FLUoxetine 20 MG CAP PO SCH (10:25)
[2020-11-19] MEDS: cloNIDine 0.2 MG TAB PO SCH (10:26)
[2020-11-19] MEDS: ASPIRIN EC 81 MG TAB PO SCH (10:27)
--- NOTE | 2020-11-19 11:23 | Discharge Summary ---
Providers - Providers Date of Admission: 11/17/20 11:28 Date of discharge: 11/19/20 Attending physician: LAI MEMBRENO 11/16/20 01:48 Consult to Physician [CONS] Routine Comment: Consulting Provider: JETHRO AYERS Physician Instructions: Reason For Exam: est pt, admitted for AE-CHF 11/16/20 02:43 Consult to Case Management [CONS] Routine Services Needed at Discharge: Home Health Services Notified:: disability case manager Additional Physician Instructions: pt is requesting home health to assist with ADLs 11/16/20 02:49 Consult to Physician [CONS] Routine Comment: Consulting Provider: MAGED LANDERS Physician Instructions: Reason For Exam: est pt, admitted for copd-ae 11/16/20 16:36 Consult to Case Management [CONS] Routine Services Needed at Discharge: Home O2 Notified:: disability case managerlegal manager physician: CLERK SUPERVISOR Hospitalization Condition: Stable Disposition: [id number]/[place]-06 HOME UNDER HOME HLTH Final Discharge Diagnosis (Prints w/discharge instructions): (1) Acute respiratory failure with hypoxia. Current Visit: Yes Status: Acute. (2) COPD exacerbation. Current Visit: Yes Status: Acute. (3) Hypertensive emergency. Current Visit: Yes Status: Acute. (4) CAD (coronary artery disease). Current Visit: Yes Status: Chronic. Qualifiers: Coronary Disease-Associated Artery/Lesion type: [place] artery [place] vs. transplanted heart: [place] heart Associated angina: with stable angina Qualified Code(s): I25.118 - Atherosclerotic heart disease of [place] coronary artery with other forms of angina pectoris. (5) Stented coronary artery. Current Visit: Yes Status: Chronic. (6) Acute on chronic HFrEF (heart failure with reduced ejection fraction). Current Visit: Yes Status: Acute. (7) Hyperkalemia. Current Visit: No Status: Acute. (9) Cardiomyopathy. Current Visit: No Status: Chronic. Qualifiers: Cardiomyopathy type: ischemic Qualified Code(s): I25.5 - Ischemic cardiomyopathy. (10) Diabetes mellitus, type 2. Current Visit: Yes Status: Chronic. (11) HTN (hypertension). Current Visit: Yes Status: Chronic. Qualifiers: Hypertension type: essential hypertension Qualified Code(s): I10 - Essential (primary) hypertension. (12) Hyperlipidemia. Current Visit: Yes Status: Chronic. Qualifiers: Hyperlipidemia type: mixed h yperlipidemia Qualified Code(s): E78.2 - Mixed hyperlipidemia. (13) ADAN (obstructive sleep apnea) with morbid obesity. Current Visit: Yes Status: Chronic. (14) Tobacco use. Current Visit: Yes Status: Chronic Time spent for discharge: 34 minutes Core Measure Documentation - Palliative Care Palliative Care/ Comfort Measures: Not Applicable - Core Measures Any of the following diagnoses?: none Exam - Constitutional Vitals: Temp Pulse Resp BP Pulse Ox 98.1 F 61 18 128/68 98 11/19/20 05:22 11/19/20 08:32 11/19/20 08:32 11/19/20 05:22 11/19/20 08:32 Plan Activity: advance as tolerated Weight Bearing Status: Weight Bear as Tolerated Diet: low fat, low salt, diabetic Special Instructions: record daily weights, record daily BP diary, record blood sugar diary, smoking cessation Follow up with: PRIMARY CARE, [Primary Care Provider] - 7 Days MAGGI ROBERTS MD [Staff Physician] - 7 Days Prescriptions: Furosemide [Lasix TAB] 40 mg PO QDAY #30 tablet levoFLOXacin [Levaquin TAB] 500 mg PO Q24H #3 tablet Metoprolol [Lopressor TAB] 50 mg PO BID #60 tablet Prednisone [predniSONE 5 mg (6-Day Pack, 21 Tabs)] 5 mg PO .TAPER #1 tab.ds.pk
--- NOTE | 2020-11-19 12:26 | Progress Note ---
Assessment and Plan --Acute on chronic diastolic heart failure started on Lasix iv Cardiology note reviewed Echocardiogram-EF 55 to 60% Continue to monitor I's and O's Daily weights --COPD exacerbation cont Bronchodilators, steroids, and abx Follows up with Dr. Rios in the office. She had a pulmonary function test performed recently but results are unknown as per patient --Acute hypoxic respiratory failure Uses oxygen at home-2 to 3 L of oxygen but recently discontinued Continue supplemental O2 to keep O2 sat more than 92% and wean off as tolerated --Hypertension Continue amlodipine, clonidine and Lasix --Depression, Patient started on fluoxetine --Hyperlipidemia, Continue statin --History of ADAN, Continue CPAP at at bedtime --Type 2 diabetes A1c 6.2, Well-diet controlled Continue SSI as ordered, consistent carb diet --Morbid obesity Counseling done on diet, weight loss and daily exercise if possible --Tobacco abuse Smoking cessation counseling was done --DVT prophylaxis-Heparin/Lovenox. --Disposition-likely home when stable for discharge Brief history: 60-year-old -Pakistani obese female with history of HTN, IDDM, HLD, COPD, CHF, ADAN, chronic respiratory failure (on home O2), left lower extremity DVT, CAD, arthritis, ELSI, and depression who presents [facility] with complaints of shortness of breath and chest pain. Review of medical record shows patient was previously admitted on 09/15/2020 with complaints of chest pain. During that admission patient underwent echo. Contin ue to monitor with serial cardiac enzymes, adjust BP meds, consulted cardiology. Patient also reported that she ran out of her home oxygen. Consulted case management for home O2 arrangement Follow clinically, continue current management and plan as dictated in the [facility] (2019): PCI with DIANELYS of mid ramus 70%. Echo (07/22/2020): EF 50 to 55%. Echo (06/2018): EF 35 to 40%. Daily clinical course: 78 feels better, states she is less short of breath, complains of cough with yellowish sputum, denies fever or chills. She denies any chest pain, or abdominal pain. Slightly improved lower extremity swelling. Cardiology wanted to continue IV diuretics. manager registration consulted for home O2 set up. Subjective Date of service: 11/19/20 Principal diagnosis: Ac. on Ch. Resp failure; AE-COPD; AE-CHF; HTNsive Urgency; ADAN-OHS; Obesity Interval history: Patient seen and examined. Medical records and medication list reviewed. No acute event overnight noted by the RN. Patient complains of cough and difficulty breathing even on resting. Patient is tolerating diet. Has significant lower extremity edema, currently on 3 to 4 L nasal cannula O2 Discussed plan of care at bedside with patient. Objective - Exam Narrative Exam: GENERAL: well-developed and morbidly obese elderly -Pakistani female bienvenido wright on bed appeared to be in no discomfort. HEENT: Normocephalic. Atraumatic. No conjunctival congestion or icterus. Patient has moist mucous membranes. NECK: Supple. Trachea midline. CHEST/LUNGS: + wheezes auscultated bilaterally, breathing nonlabored. + few crackles HEART/CARDIOVASCULAR: Regular in rate and rhythm. S1 and S2 positive. ABDOMEN: Abdomen is soft, nontender. Patient has normal bowel sounds. SKIN: There is no rash. Warm and dry. NEURO: No focal motor deficit. Follows command. MUSCULOSKELETAL: No joint effusion or tenderness. EXTRIMITY: 3+ pitting edema, no cyanosis or clubbing. PSYCH: Cooperative. - Constitutional Vitals: Vital Signs - 12hr 11/19/20 11/19/20 11/19/20 00:46 04:00 05:22 Temperature 98.1 F Pulse Rate 55 L 58 L Pulse Rate [ 76 Bilateral Throughout] Respiratory 20 Rate Respiratory 20 Rate [Bilateral Throughout] Blood Pressure 128/68 O2 Sat by Pulse 94 Oximetry 11/19/20 08:32 Temperature Pulse Rate Pulse Rate [ 61 Bilateral Throughout] Respiratory Rate Respiratory 18 Rate [Bilateral Throughout] Blood Pressure O2 Sat by Pulse 98 Oximetry - Labs CBC & Chem 7: 11/19/20 04:59 11/19/20 04:59 Labs: Abnormal lab results 11/18/20 11/18/20 11/19/20 Range/Units 16:07 21:47 04:59 WBC 12.0 H (4.5-11.0) K/mm3 RBC 5.57 H (3.65-5.03) M/mm3 Hgb 10.0 L (10.1-14.3) gm/dl MCV 63 L (79-97) fl MCH 18 L (28-32) pg MCHC 29 L (30-34) % RDW 24.0 H (13.2-15.2) % BUN (7-17) mg/dL Glucose (65-100) mg/dL POC Glucose 173 H 227 H (70-105) mg/dL 11/19/20 11/19/20 11/19/20 Range/Units 04:59 09:26 11:31 WBC (4.5-11.0) K/mm3 RBC (3.65-5.03) M/mm3 Hgb (10.1-14.3) gm/dl MCV (79-97) fl MCH (28-32) pg MCHC (30-34) % RDW (13.2-15.2) % BUN 33 H (7-17) mg/dL Glucose 156 H (65-100) mg/dL POC Glucose 213 H 217 H (70-105) mg/dL HEART Score - HEART Score Troponin: Troponin T < 0.010 ng/mL (0.00-0.029) 11/17/20 06:05
--- NOTE | 2020-11-19 12:50 | Progress Note ---
Assessment and Plan Acute on Chronic hypoxemic respiratory failure AE-COPD HFpEF Obstructive sleep apnea Morbid obesity Tobacco use disorder DM II Accelerated hypertension Anemia that is microcytic Elevated serum BNP - continue to titrate supplemental oxygen to keep SpO2 89-92% - continue bronchodilators with pulmonary hygiene per RT - no indication for systemic steroids at this time - continue diuresis while monitoring electrolytes and hemodynamics - Nocturnal BIPAP and prn daytime use - complete empiric CAP antibitoic therapy - Accucheck with glycemic control for target BG < 180 mg/dl - VTE prophylaxis - Smoking cessation counselling done at the bedside - Nicotine withdrawal precautions - PT/OT to Increase activity as tolerated - Weight loss and life style modifications - CXR and ABG as clinically indicated - Influenza and pneumonia vaccination per protocol - Blood pressure control - Cardioprotective measures, heart failure measures and education - optimize cardiac function per cardiology - continue other care per attending / other conbsultants Subjective Date of service: 11/19/20 Principal diagnosis: Ac. on Ch. Resp failure; AE-COPD; AE-CHF; HTNsive Urgency; ADAN-OHS; Obesity Interval history: Patient is seen today for: Acute Hypoxemic and Hypercapnic Respiratory failure; AE-COPD; Acute CHF exacerbation; Hypertensive Urgency; ADAN-OHS; Tobacco use disorder-nicotine dependence; Morbid obesity Seen and examined at bedside; 24hour events reviewed; nursing and respiratory care staff consulted; no adverse overnight events reported to me; resting peacefully in bed; remains on supplemental oxygen, denies any chest pain, no shortness of breath, no fevers, no chills, no nausea or vomiting. Slowly improving Objective Vital Signs - 12hr 11/19/20 11/19/20 11/19/20 04:00 05:22 08:32 Temperature 98.1 F Pulse Rate 55 L 58 L Pulse Rate [ 61 Bilateral Throughout] Respiratory 20 Rate Respiratory 18 Rate [Bilateral Throughout] Blood Pressure 128/68 O2 Sat by Pulse 94 98 Oximetry Constitutional: alert, appears uncomfortable, other (Emotional and rest less.) Eyes: non-icteric ENT: oropharynx moist Neck: supple, no JVD Ascultation: Bilateral: wheezes Cardiovascular: regular rate and rhythm Gastrointestinal: normoactive bowel sounds, non-tender Integumentary: normal Extremities: no cyanosis, no edema Neurologic: non-focal exam, pupils equal and round Psychiatric: anxious, depressed CBC and BMP: 11/19/20 04:59 07/10/21 04:59 ABG, PT/INR, D-dimer: PT/INR, D-dimer D-Dimer 326.63 ng/mlDDU (0-234) H 11/17/20 06:05 Abnormal lab findings: Abnormal Labs 11/16/20 11/16/20 11/16/20 00:07 00:07 04:17 WBC RBC 5.66 H Hgb MCV 63 L MCH 18 L MCHC 29 L RDW 24.1 H Lymph % (Auto) [place] % (Auto) 9.7 H Eos % (Auto) 6.7 H Baso % (Auto) 2.6 H Lymph # (Auto) 1.0 L Eos # (Auto) 0.5 H Baso # (Auto) 0.2 H Seg Neutrophils % D-Dimer Sodium Potassium Carbon Dioxide 18 L BUN Glucose POC Glucose Hemoglobin A1c 6.2 H ALT Alkaline Phosphatase NT-Pro-B Natriuret Pep 5512 H Albumin HDL Cholesterol 11/16/20 11/16/20 11/16/20 04:17 07:42 12:14 WBC RBC Hgb MCV MCH MCHC RDW Lymph % (Auto) [place] % (Auto) Eos % (Auto) Baso % (Auto) Lymph # (Auto) Eos # (Auto) Baso # (Auto) Seg Neutrophils % D-Dimer Sodium Potassium Carbon Dioxide BUN Glucose POC Glucose 163 H 274 H Hemoglobin A1c ALT Alkaline Phosphatase NT-Pro-B Natriuret Pep Albumin HDL Cholesterol 22 L 11/16/20 11/16/20 11/17/20 15:37 21:11 06:05 WBC RBC 5.14 H Hgb 9.0 L MCV 62 L MCH 18 L MCHC 28 L RDW 24.3 H Lymph % (Auto) 7.3 L [place] % (Auto) Eos % (Auto) Baso % (Auto) Lymph # (Auto) 0.4 L Eos # (Auto) Baso # (Auto) Seg Neutrophils % 87.5 H D-Dimer Sodium Potassium Carbon Dioxide BUN Glucose POC Glucose 204 H 158 H Hemoglobin A1c ALT Alkaline Phosphatase NT-Pro-B Natriuret Pep Albumin HDL Cholesterol 11/17/20 11/17/20 11/17/20 06:05 06:05 08:54 WBC RBC Hgb MCV MCH MCHC RDW Lymph % (Auto) [place] % (Auto) Eos % (Auto) Baso % (Auto) Lymph # (Auto) Eos # (Auto) Baso # (Auto) Seg Neutrophils % D-Dimer 326.63 H Sodium 135 L Potassium Carbon Dioxide BUN 19 H Glucose 167 H POC Glucose 247 H Hemoglobin A1c ALT < 5 L Alkaline Phosphatase 169 H NT-Pro-B Natriuret Pep Albumin 3.5 L HDL Cholesterol 11/17/20 11/17/20 11/17/20 11:53 16:52 20:27 WBC RBC Hgb MCV MCH MCHC RDW Lymph % (Auto) [place] % (Auto) Eos % (Auto) Baso % (Auto) Lymph # (Auto) Eos # (Auto) Baso # (Auto) Seg Neutrophils % D-Dimer Sodium Potassium Carbon Dioxide BUN Glucose POC Glucose 228 H 178 H 183 H Hemoglobin A1c ALT Alkaline Phosphatase NT-Pro-B Natriuret Pep Albumin HDL Cholesterol 11/18/20 11/18/20 11/18/20 08:09 08:10 08:10 WBC RBC 5.38 H Hgb 9.8 L MCV 62 L MCH 18 L MCHC 29 L RDW 24.1 H Lymph % (Auto) [place] % (Auto) Eos % (Auto) Baso % (Auto) Lymph # (Auto) Eos # (Auto) Baso # (Auto) Seg Neutrophils % D-Dimer Sodium 136 L Potassium 5.6 H Carbon Dioxide BUN 28 H Glucose 142 H POC Glucose 160 H Hemoglobin A1c ALT Alkaline Phosphatase NT-Pro-B Natriuret Pep Albumin HDL Cholesterol 11/18/20 11/18/20 11/18/20 12:06 16:07 21:47 WBC RBC Hgb MCV MCH MCHC RDW Lymph % (Auto) [place] % (Auto) Eos % (Auto) Baso % (Auto) Lymph # (Auto) Eos # (Auto) Baso # (Auto) Seg Neutrophils % D-Dimer Sodium Potassium Carbon Dioxide BUN Glucose POC Glucose 258 H 173 H 227 H Hemoglobin A1c ALT Alkaline Phosphatase NT-Pro-B Natriuret Pep Albumin HDL Cholesterol 11/19/20 11/19/20 11/19/20 04:59 04:59 09:26 WBC 12.0 H RBC 5.57 H Hgb 10.0 L MCV 63 L MCH 18 L MCHC 29 L RDW 24.0 H Lymph % (Auto) [place] % (Auto) Eos % (Auto) Baso % (Auto) Lymph # (Auto) Eos # (Auto) Baso # (Auto) Seg Neutrophils % D-Dimer Sodium Potassium Carbon Dioxide BUN 33 H Glucose 156 H POC Glucose 213 H Hemoglobin A1c ALT Alkaline Phosphatase NT-Pro-B Natriuret Pep Albumin HDL Cholesterol 11/19/20 11:31 WBC RBC Hgb MCV MCH MCHC RDW Lymph % (Auto) [place] % (Auto) Eos % (Auto) Baso % (Auto) Lymph # (Auto) Eos # (Auto) Baso # (Auto) Seg Neutrophils % D-Dimer Sodium Potassium Carbon Dioxide BUN Glucose POC Glucose 217 H Hemoglobin A1c ALT Alkaline Phosphatase NT-Pro-B Natriuret Pep Albumin HDL Cholesterol
[2020-11-19] MEDS: amLODIPine 10 MG TAB PO SCH (14:00)
[2020-11-19] MEDS: FERROUS SULFATE 325 MG TAB PO SCH (14:00)
[2020-11-19] MEDS ORDERED: MAGNESIUM HYDROXIDE (MOM) ORAL LIQD UDC PO STA (14:58)
[2020-11-19] MEDS ORDERED: MAGNESIUM HYDROXIDE (MOM) ORAL LIQD UDC ONE (15:01)
[2020-11-19 17:36] VITALS: BP 157/83
[2020-11-20] MEDS ORDERED: predniSONE 20 MG TAB PO SCH (10:00)
[2020-11-20] MEDS ORDERED: FUROSEMIDE 40 MG TAB PO SCH (10:00)
--- NOTE | 2020-11-20 11:00 | Discharge Summary ---
Providers - Providers Date of Admission: 11/17/20 11:28 Date of discharge: 11/19/20 Attending physician: LAI MEMBRENO 11/16/20 01:48 Consult to Physician [CONS] Routine Comment: Consulting Provider: JETHRO AYERS Physician Instructions: Reason For Exam: est pt, admitted for AE-CHF 11/16/20 02:43 Consult to Case Management [CONS] Routine Services Needed at Discharge: Home Health Services Notified:: case managers Additional Physician Instructions: pt is requesting home health to assist with ADLs 11/16/20 02:49 Consult to Physician [CONS] Routine Comment: Consulting Provider: MAGED LANDERS Physician Instructions: Reason For Exam: est pt, admitted for copd-ae 11/16/20 16:36 Consult to Case Management [CONS] Routine Services Needed at Discharge: Home O2 Notified:: case managersanimal husbandry manager physician: POLICE AC[employer]EMY INSTRUCTOR Hospitalization Condition: Stable Pertinent studies: Chest x-ray: Pulmonary vascular congestion otherwise no abnormality Hospital course: 60-year-old -[place] Citizen obese female with history of HTN, IDDM, HLD, COPD, CHF, ADAN, history of chronic respiratory failure (on home O2 but recently discontinued), left lower extremity DVT, CAD, arthritis, ELSI, and depression who presents [facility] with complaints of shortness of breath and chest pain. Review of medical record shows patient was previously admitted on 09/15/2020 with complaints of chest pain. During that admission patient underwent echo. Continue to monitor with serial cardiac enzymes, adjust BP meds, consulted cardiology. Patient also reported that she ran out of her home oxygen. Consulted case management for home O2 arrangement. Patient was admitted to telemetry floor with scheduled iv diuretics, nebulizer breathing treatment, empiric steroid and antibiotics. Monitored with serial CE, EKG. Cardiology consulted. Provided cardiac diet, daily weights, monitored in's and O's. Pat ients symptom improved with medical management. Patient did not qualify for home O2. Patient was then discharged home in stable condition with outpt f/u. [facility] (2019): PCI with DIANELYS of mid ramus 70%. Echo (07/22/2020): EF 50 to 55%. Echo (06/2018): EF 35 to 40%. Daily clinical course: 8 feels better, states she is less short of breath, complains of cough with yellowish sputum, denies fever or chills. She denies any chest pain, or abdominal pain. Slightly improved lower extremity swelling. Cardiology wanted to continue IV diuretics. telehealth case manager consulted for home O2 set up. 11/18/20: Patient continues to have difficulty breathing with lower extremity swelling. Diuresing well with current diuretic doses. Potassium level 5.6 today, ordered for Kayexalate, repeat BMP tomorrow. Will assess for home O2 requirement on discharge. Continue current management and plan, discussed with cardiology -recommended medical management, appreciate recommendation. 11/19/20: Patient has been doing well from the O2, assess for home O2 requirement and did not qualify. Clinically much improved. Discussed with entertainment production professional and recommended further management as outpatient. Patient will be discharged home with tapering dose of steroid and Lasix has been increased to 80 mg p.o. twice a day. ACEI has been discontinued and no supplemental potassium added for hyper kalemia. Recommended repeat BMP in 1 week and outpatient follow-up with her entertainment production professional Dr. Patel already in 1 week. Discharge planning management was thoroughly discussed with the patient and she verbalized understanding. Disposition: [id number] HOME UNDER HOME [facility] Final Discharge Diagnosis (Prints w/discharge instructions): --Chest pain, likel y due to GERD vs stable angina. --Acute on chronic diastolic heart failure. --Acute COPD exacerbation. --Acute hypoxic respiratory failure, resolved. --hyperkalemia. --Mild hyponatremia. ----Hypertension. --Depression, chronic. --Hyperlipidemia. --Obstructive sleep apnea. --Diabetes mellitus type 2, diet-controlled. --Morbid obesity. --Tobacco abuse. --Microcytic iron deficiency anemia on iron supplement at home. --History of coronary artery disease with a stented coronary artery Time spent for discharge: 34 minutes Core Measure Documentation - Palliative Care Palliative Care/ Comfort Measures: Not Applicable - Core Measures Any of the following diagnoses?: heart failure - Heart Failure Discharge Requirements LETTY/ARB for LVSD if EF <40%: Not Applicable Reason for no LETTY/ARB: Hyperkalemia Beta vamsi at discharge: Yes Exam - Physical Exam Narrative exam: GENERAL: well-developed and morbidly obese elderly -[place] Citizen female lying on bed appeared to be in no discomfort. HEENT: Normocephalic. Atraumatic. No conjunctival congestion or icterus. Patient has moist mucous membranes. NECK: Supple. Trachea midline. CHEST/LUNGS: + wheezes auscultated bilaterally, breathing nonlabored. + few crackles HEART/CARDIOVASCULAR: Regular in rate and rhythm. S1 and S2 positive. ABDOMEN: Abdomen is soft, nontender. Patient has normal bowel sounds. SKIN: There is no rash. Warm and dry. NEURO: No focal motor deficit. Follows command. MUSCULOSKELETAL: No joint effusion or tenderness. EXTRIMITY: 3+ pitting edema, no cyanosis or clubbing. PSYCH: Cooperative. - Constitutional Vitals: Temp Pulse Resp BP Pulse Ox 97.7 F 57 L 22 157/83 97 11/19/20 11:43 11/19/20 11:43 11/19/20 11:43 11/19/20 11:43 11/19/20 11:43 Plan Activity: advance as tolerated Weight Bearing Status: Weight Bear as Tolerated Diet: low fat, low salt, diabetic Special Instructions: record daily weights, record daily BP diary, record blood sugar diary Additional Instructions: Repeat BMP in 1 week Follow up with: PRIMARY CARE, [Primary Care Provider] - 7 Days MAGGI ROBERTS MD [Staff Physician] - 7 Days Prescriptions: Furosemide [Lasix TAB] 80 mg PO BID #60 tablet levoFLOXacin [Levaquin TAB] 500 mg PO Q24H #3 tablet Metoprolol [Lopressor TAB] 50 mg PO BID #60 tablet Prednisone [predniSONE 5 mg (6-Day Pack, 21 Tabs)] 5 mg PO .TAPER #1 tab.ds.pk
== END 2020-11-19 18:24 | disposition home health service (06) | DRG 291 ==
LOC: ED 18:09 → 4A 11-16 01:31 → OBSVTOIN 11-17 11:28
PROVIDERS: ADMIT Internal Medicine Geriatric Medicine; ATTEND Internal Medicine
DX: I11.0 Hypertensive heart disease with heart failure (principal); J96.21 Acute and chronic respiratory failure with hypoxia; J44.1 Chronic obstructive pulmonary disease with (acute) exacerbation; I82.402 Acute embolism and thrombosis of unspecified deep veins of left lower extremity; E87.1 Hypo-osmolality and hyponatremia; Z68.43 Body mass index [BMI] 50.0-59.9, adult; I50.23 Acute on chronic systolic (congestive) heart failure; E11.9 Type 2 diabetes mellitus without complications; F41.1 Generalized anxiety disorder; F32.9 Major depressive disorder, single episode, unspecified; G47.33 Obstructive sleep apnea (adult) (pediatric); D50.8 Other iron deficiency anemias; F17.200 Nicotine dependence, unspecified, uncomplicated; M19.90 Unspecified osteoarthritis, unspecified site; I42.9 Cardiomyopathy, unspecified; I25.110 Atherosclerotic heart disease of native coronary artery with unstable angina pectoris; E87.5 Hyperkalemia; E66.01 Morbid (severe) obesity due to excess calories; E78.5 Hyperlipidemia, unspecified; Z79.899 Other long term (current) drug therapy; Z79.891 Long term (current) use of opiate analgesic; Z79.01 Long term (current) use of anticoagulants; Z79.4 Long term (current) use of insulin; Z79.82 Long term (current) use of aspirin; Z90.710 Acquired absence of both cervix and uterus; Z95.5 Presence of coronary angioplasty implant and graft; Z90.49 Acquired absence of other specified parts of digestive tract; Z95.810 Presence of automatic (implantable) cardiac defibrillator; Z88.0 Allergy status to penicillin
CPT/HCPCS: 36415; 71045; 80048; 80053; 80061; 82962; 83036; 83735; 83880; 84484; 85025; 85027; 85379; 93005; 94640; 94644; 96365; 96375; G0378; A9270-GY; J0360; J1815; J1940; J1956; J2270; J2405; J2930

== ENCOUNTER 2021-01-29 15:24 | Inpatient (IN) | payer BC ==
[2021-01-29] MEDS ORDERED: NITROGLYCERIN 0.4 MG TAB SUBL SL PRN (17:13)
[2021-01-29] MEDS ORDERED: FUROSEMIDE 100 MG/10 ML INJ IV ONE (17:13)
[2021-01-29] MEDS ORDERED: ASPIRIN 325 MG TAB PO ONE (17:13)
--- NOTE | 2021-01-29 17:18 | Emergency Department Report ---
ED Shortness of Breath HPI - General Stated Complaint: SOB Time Seen by Provider: 01/29/21 17:04 - History of Present Illness Initial Comments: Patient presents by missing her shortness of breath. She started having shortness of breath last night. She states that she ran out of her oxygen. She states that the tank was just automatically dry. She could not catch her breath. She started to have a panic attack. She was able to make it through tonight. She got up today and was still having problems. She ultimately called an ambulance because of this. She is also having chest pain described as an 8 out of 10. It is a tightness across the chest. She states she cannot walk more than 5 or 6 feet without becoming short of breath and having to rest. She admits that she is retaining fluid. She has been on a diuretic, Lasix, but it does not seem to be helping. She believes that she is overloaded and in heart failure. She has had this before and believes that this is the same problem. She has had a cough producing a clear phlegm. There is no fever associated with this. She has had no exposure to coronavirus. She states that these are the same symptoms she has had when she has had to be admitted and get IV Lasix to [facility]. - Related Data Home Medications Medication Instructions Recorded Confirmed Last Taken Budesonide/Formoterol Fumarate 10.2 gm PO Q6H 10/06/19 09/15/20 Unknown [Budesonide-Formoterol 160-4.5] Celecoxib [celeBREX] 200 mg PO DAILY 10/06/19 09/15/20 09/15/20 Clopidogrel [Plavix] 75 mg PO QWEEK 10/06/19 09/15/20 Unknown Dulaglutide [Trulicity] 0.75 mg SQ DAILY 10/06/19 09/15/20 Unknown HumuLIN 70/30 Kwikpen 15 units SQ BID 10/06/19 09/15/20 09/15/20 cloNIDine [Catapres] 0.2 mg PO BID 10/06/19 09/15/20 09/15/20 Previous Rx's Medication Instructions Recorded Last Taken Type AtorvaSTATin [Lipitor] 40 mg PO QHS #30 tablet 09/12/19 09/15/20 Rx Aspirin EC [Halfprin EC] 81 mg PO QDAY #30 tablet 10/09/19 09/15/20 Rx Ferrous Sulfate [Feosol 325 MG tab] 325 mg PO BID #60 tablet 02/09/20 09/15/20 Rx Arformoterol Nebu [Brovana Nebu] 15 mcg IH Q12HRT ml 07/25/20 09/15/20 Rx Budesonide [Pulmicort Respules] 0.5 mg IH Q12HRT nebu 07/25/20 Unknown Rx Famotidine [Pepcid] 20 mg PO BID tablet 07/25/20 09/15/20 Rx ISOSORBIDE MONOnitrate [Imdur ER] 60 mg PO QDAY #30 tablet 07/25/20 Unknown Rx Lispro Insulin [HumaLOG] 0 unit SUB-Q ACHS units 07/25/20 09/15/20 Rx hydrALAZINE [Apresoline TAB] 100 mg PO Q8HR #90 tab 07/25/20 09/15/20 Rx Mirtazapine 7.5 mg PO QHS #30 tablet 09/19/20 Unknown Rx Venlafaxine [Effexor 25mg tab] 25 mg PO DAILY #30 tablet 09/19/20 Unknown Rx hydrOXYzine PAMOATE [Vistaril] 25 mg PO BID PRN #60 capsule 09/19/20 Unknown Rx FLUoxetine [PROzac] 20 mg PO QDAY #30 capsule 09/20/20 Unknown Rx amLODIPine 10 mg PO DAILY #30 tablet 09/20/20 Unknown Rx Furosemide [Lasix TAB] 80 mg PO BID #60 tablet 11/19/20 Unknown Rx Metoprolol [Lopressor TAB] 50 mg PO BID #60 tablet 11/19/20 Unknown Rx Prednisone [predniSONE 5 mg (6-Day 5 mg PO .TAPER #1 tab.ds.pk 11/19/20 Unknown Rx Pack, 21 Tabs)] levoFLOXacin [Levaquin TAB] 500 mg PO Q24H #3 tablet 11/19/20 Unknown Rx Allergies Allergy/AdvReac Type Severity Reaction Status Date / Time Penicillins Allergy Severe GO INTO Verified 09/15/20 12:11 SHOCK ED Review of Systems ROS: Stated complaint: SOB Other details as noted in HPI Comment: All other systems reviewed and negative Constitutional: denies: fever Eyes: denies: eye pain ENT: denies: throat pain Respiratory: see HPI Cardiovascular: as per HPI Endocrine: unexplained weight gain Gastrointestinal: denies: abdominal pain Genitourinary: denies: dysuria Musculoskeletal: denies: back pain Skin: denies: rash Neurological: denies: headache Psychiatric: as per HPI, anxiety Hematological/Lymphatic: denies: easy bruising ED Past Medical Hx - Past Medical History Hx Hypertension: Yes Hx Heart Attack/AMI: No Hx Congestive Heart Failure: Yes Hx Diabetes: Yes Hx Deep Vein Thrombosis: Yes (left leg) Hx Pulmonary Embolism: No Hx Liver Disease: No Hx Sickle Cell Disease: No Hx Arthritis: Yes Hx Asthma: No Hx COPD: Yes Hx Tuberculosis: No Hx HIV: No Additional medical history: CAD - Surgical History Hx Coronary Stent: Yes (2004, 2007, 09/2015) Hx Pacemaker: No Hx Internal Defibrillator: No Hx Cholecystectomy: Yes Hx Appendectomy: Yes Additional Surgical History: HYSTERECTOMY. TONSILLECTOMY - Family History Family history: CAD/[place], hypertension - Social History Smoking Status: Unknown if ever smoked - Medications Home Medications: Home Medications Medication Instructions Recorded Confirmed Last Taken Type AtorvaSTATin [Lipitor] 40 mg PO QHS #30 tablet 09/12/19 09/15/20 09/15/20 Rx Budesonide/Formoterol Fumarate 10.2 gm PO Q6H 10/06/19 09/15/20 Unknown History [Budesonide-Formoterol 160-4.5] Celecoxib [celeBREX] 200 mg PO DAILY 10/06/19 09/15/20 09/15/20 History Clopidogrel [Plavix] 75 mg PO QWEEK 10/06/19 09/15/20 Unknown History Dulaglutide [Trulicity] 0.75 mg SQ DAILY 10/06/19 09/15/20 Unknown History HumuLIN 70/30 Kwikpen 15 units SQ BID 10/06/19 09/15/20 09/15/20 History cloNIDine [Catapres] 0.2 mg PO BID 10/06/19 09/15/20 09/15/20 History Aspirin EC [Halfprin EC] 81 mg PO QDAY #30 tablet 10/09/19 09/15/20 09/15/20 Rx Ferrous Sulfate [Feosol 325 MG tab] 325 mg PO BID #60 tablet 02/09/20 09/15/20 09/15/20 Rx Arformoterol Nebu [Brovana Nebu] 15 mcg IH Q12HRT ml 07/25/20 09/15/20 09/15/20 Rx Budesonide [Pulmicort Respules] 0.5 mg IH Q12HRT nebu 07/25/20 09/15/20 Unknown Rx Famotidine [Pepcid] 20 mg PO BID tablet 07/25/20 09/15/20 09/15/20 Rx ISOSORBIDE MONOnitrate [Imdur ER] 60 mg PO QDAY #30 tablet 07/25/20 09/15/20 Unknown Rx Lispro Insulin [HumaLOG] 0 unit SUB-Q ACHS units 07/25/20 09/15/20 09/15/20 Rx hydrALAZINE [Apresoline TAB] 100 mg PO Q8HR #90 tab 07/25/20 09/15/20 09/15/20 Rx Mirtazapine 7.5 mg PO QHS #30 tablet 09/19/20 Unknown Rx Venlafaxine [Effexor 25mg tab] 25 mg PO DAILY #30 tablet 09/19/20 Unknown Rx hydrOXYzine PAMOATE [Vistaril] 25 mg PO BID PRN #60 capsule 09/19/20 Unknown Rx FLUoxetine [PROzac] 20 mg PO QDAY #30 capsule 09/20/20 Unknown Rx amLODIPine 10 mg PO DAILY #30 tablet 09/20/20 Unknown Rx Furosemide [Lasix TAB] 80 mg PO BID #60 tablet 11/19/20 Unknown Rx Metoprolol [Lopressor TAB] 50 mg PO BID #60 tablet 11/19/20 Unknown Rx Prednisone [predniSONE 5 mg (6-Day 5 mg PO .TAPER #1 tab.ds.pk 11/19/20 Unknown Rx Pack, 21 Tabs)] levoFLOXacin [Levaquin TAB] 500 mg PO Q24H #3 tablet 11/19/20 Unknown Rx ED Physical Exam - General Limitations: Other (Pulse ox is noted. Patient is hypoxic.) General appearance: alert, anxious, in distress (Moderate), obese - Head Head exam: Present: atraumatic, normocephalic, normal inspection - Eye Eye exam: Present: normal appearance, EOMI. Absent: scleral icterus - ENT ENT exam: Present: normal exam, normal external ear exam - Neck Neck exam: Present: normal inspection, other (No JVD). Absent: meningismus - Respiratory Respiratory exam: Present: respiratory distress (Moderate), rales - Cardiovascular Cardiovascular Exam: Present: regular rate, normal rhythm - GI/Abdominal GI/Abdominal exam: Present: soft. Absent: tenderness - Extremities Exam Extremities exam: Present: normal capillary refill, pedal edema (3+ bilateral). Absent: calf tenderness - Back Exam Back exam: Absent: CVA tenderness (R), CVA tenderness (L) - Neurological Exam Neurological exam: Present: alert, oriented X3, CN II-XII intact. Absent: motor sensory deficit - Psychiatric Psychiatric exam: Present: anxious - Skin Skin exam: Present: warm, dry ED Course Vital Signs 01/29/21 17:16 Temperature 98.1 F Pulse Rate 106 H Respiratory 16 Rate Blood Pressure 213/143 O2 Sat by Pulse 99 Oximetry - Reevaluation(s) Reevaluation #1: 01/29/21 17:14 IV labs ordered. Old records reviewed. Lasix was ordered. Reevaluation #2: 01/29/21 18:27 Labs of been reviewed. Chest x-ray was noted. We will proceed with admission. Based on the patient's hypertensive urgency, nitroglycerin drip has been ordered. Patient has already been treated with IV diuretics. ED Medical Decision Making - Lab Data Result diagrams: 01/29/21 17:20 01/29/21 17:20 - EKG Data 01/29/21 18:32 Rhythm strip: Monitor shows a normal sinus rhythm without ectopy. Monitor 15 seconds. - Radiology Data Radiology results: report reviewed - Medical Decision Making Patient presents secondary to difficulty breathing and chest pain. She was found to have an acute exacerbation of congestive heart failure. This is on chronic CHF. She was hypoxic. Patient has anasarca. She also has hypertensive urgency with mean arterial pressures in the 160s. She has been aggressively treated with aspirin, nitroglycerin, as well as IV Lasix. She will be admitted for diuresis and ongoing management. She does not have evidence of acute respiratory failure that would require intubation. Critical Care Time: Yes Critical care attestation.: If time is entered above; I have spent that time in minutes in the direct care of this critically ill patient, excluding procedure time. Critical Care Time: Critical care time of 45 minutes exclusive of all procedures based on hypertensive emergency needing IV nitroglycerin and IV Lasix with hypoxia. ED Disposition Clinical Impression: Shortness of breath, Precordial chest pain, Hypoxia CHF exacerbation Qualifiers: Heart failure type: combined systolic and diastolic Qualified Code(s): I50.43 - Acute on chronic combined systolic (congestive) and diastolic (congestive) heart failure Disposition: 09 ADMITTED INPATIENT Is pt being admited?: Yes Condition: Stable Instructions: Nonspecific Chest Pain, Adult Referrals: PRIMARY CARE,MD [Primary Care Provider] - 3-5 Days
[2021-01-29 17:42] LABS: Mean Corpuscular HGB Conc 28 % (30-34); Platelet Count 296 K/mm3 (140-440); Red Blood Count 5.12 M/mm3 (3.65-5.03)
[2021-01-29 17:43] LABS: Hematocrit 32.6 % (30.3-42.9); Hemoglobin 9.3 gm/dl (10.1-14.3); Mean Corpuscular Volume 64 fl (79-97); Red Cell Distribution Width 23.5 % (13.2-15.2)
[2021-01-29 17:52] LABS: Blood Urea Nitrogen 11 mg/dL (7-17); Calcium 8.5 mg/dL (8.4-10.2); Hemolysis Index 6
[2021-01-29 17:53] LABS: BUN/Creatinine Ratio 16
[2021-01-29] MEDS ORDERED: NITROGLYCERIN DRIP 50 MG/250 ML BOTTLE IV SCH (18:00)
--- NOTE | 2021-01-29 18:02 | XRay Report ---
CHEST 1 VIEW 01/29/2021 5:36 PM INDICATION / CLINICAL INFORMATION: Dyspnea and history of CHF. COMPARISON: 11/15/20. FINDINGS: SUPPORT DEVICES: None. HEART / MEDIASTINUM: Moderate cardiomegaly is stable. Pulmonary vasculature is probably normal. LUNGS / PLEURA: No definite pulmonary or pleural abnormality.. No pneumothorax. ADDITIONAL FINDINGS: No significant additional findings. IMPRESSION: Cardiomegaly without evidence of congestive heart failure. Signer Name: Prashanth Cantrell MD Signed: 01/29/2021 5:57 PM Workstation Name: [id number]
--- NOTE | 2021-01-29 18:33 | History and Physical Report ---
History of Present Illness Chief complaint: I cannot breathe History of present illness: 60 YO Female with HTN, OA, CAD S/P Stent x2 on DAPT, Nicotine Dependence, [place], Morbid Obesity, COPD, Obesity Hypoventilation Syndrome, Chronic Respiratory Failure on Home Oxygen presents to ED for evaluation. Patient states that she has experienced shortness of breath over the past 1 day with persistent symptoms over the same timeframe. Patient states that she believes that she ran out of oxygen. EMS notified and upon arrival the patient was found to be in distress and subsequent transported to [facility] for further care and evaluation of the aforementioned symptoms. The patient was seen and evaluated in the emergency department. All lab and imaging studies reviewed. Patient acknowledges orthopnea, paroxysmal nocturnal dyspnea, decreased exercise tolerance, increased frequency of bronchodilator therapy without relief of symptoms, and increased use of supplemental oxygen without relief. Patient found to have acute on chronic respiratory failure with a pulse oximetry of 87% on room air as well as clinical findings consistent with congestive heart failure exacerbation, and a blood pressure of 214/140 which is consistent with accelerated hypertension. Patient initiated on nitro drip. Patient admitted to IMCU due to increased risk of worsening symptoms. Patient initiated on CHF protocol and treated with supplemental oxygen. Patient denies fever, chills, chest pain, palpitations, NVD, unilateral leg/calf swelling, recent prolonged car/air travel, difficulty breathing, individual/family history of DVT/bleeding/blood clotting disorders. Patient denies known exposure to COVID-19. Prior admission on 11/17/2020 reviewed. All medication listed at time of admission has been reconciled. Advanced care planning conducted in ED. Past History Past Surgical History: appendectomy, cholecystectomy, hysterectomy, tonsillectomy, Other (Cardiac stent placement) Social history: single Family history: diabetes, hypertension Medications and Allergies Allergies Allergy/AdvReac Type Severity Reaction Status Date / Time Penicillins Allergy Severe GO INTO Verified 09/15/20 12:11 SHOCK Home Medications Medication Instructions Recorded Confirmed Last Taken Type AtorvaSTATin [Lipitor] 40 mg PO QHS #30 tablet 09/12/19 09/15/20 09/15/20 Rx Budesonide/Formoterol Fumarate 10.2 gm PO Q6H 10/06/19 09/15/20 Unknown History [Budesonide-Formoterol 160-4.5] Celecoxib [celeBREX] 200 mg PO DAILY 10/06/19 09/15/20 09/15/20 History Clopidogrel [Plavix] 75 mg PO QWEEK 10/06/19 09/15/20 Unknown History Dulaglutide [Trulicity] 0.75 mg SQ DAILY 10/06/19 09/15/20 Unknown History HumuLIN 70/30 Kwikpen 15 units SQ BID 10/06/19 09/15/20 09/15/20 History cloNIDine [Catapres] 0.2 mg PO BID 10/06/19 09/15/20 09/15/20 History Aspirin EC [Halfprin EC] 81 mg PO QDAY #30 tablet 10/09/19 09/15/20 09/15/20 Rx Ferrous Sulfate [Feosol 325 MG tab] 325 mg PO BID #60 tablet 02/09/20 09/15/20 09/15/20 Rx Arformoterol Nebu [Brovana Nebu] 15 mcg IH Q12HRT ml 07/25/20 09/15/20 09/15/20 Rx Budesonide [Pulmicort Respules] 0.5 mg IH Q12HRT nebu 07/25/20 09/15/20 Unknown Rx Famotidine [Pepcid] 20 mg PO BID tablet 07/25/20 09/15/20 09/15/20 Rx ISOSORBIDE MONOnitrate [Imdur ER] 60 mg PO QDAY #30 tablet 07/25/20 09/15/20 Unknown Rx Lispro Insulin [HumaLOG] 0 unit SUB-Q ACHS units 07/25/20 09/15/20 09/15/20 Rx hydrALAZINE [Apresoline TAB] 100 mg PO Q8HR #90 tab 07/25/20 09/15/20 09/15/20 Rx Mirtazapine 7.5 mg PO QHS #30 tablet 09/19/20 Unknown Rx Venlafaxine [Effexor 25mg tab] 25 mg PO DAILY #30 tablet 09/19/20 Unknown Rx hydrOXYzine PAMOATE [Vistaril] 25 mg PO BID PRN #60 capsule 09/19/20 Unknown Rx FLUoxetine [PROzac] 20 mg PO QDAY #30 capsule 09/20/20 Unknown Rx amLODIPine 10 mg PO DAILY #30 tablet 09/20/20 Unknown Rx Furosemide [Lasix TAB] 80 mg PO BID #60 tablet 11/19/20 Unknown Rx Metoprolol [Lopressor TAB] 50 mg PO BID #60 tablet 11/19/20 Unknown Rx Prednisone [predniSONE 5 mg (6-Day 5 mg PO .TAPER #1 tab.ds.pk 11/19/20 Unknown Rx Pack, 21 Tabs)] levoFLOXacin [Levaquin TAB] 500 mg PO Q24H #3 tablet 11/19/20 Unknown Rx Active Meds: Active Medications Nitroglycerin/Dextrose (Tridil Drip 50mg/250ml) 50 mg in 250 mls @ 6 mls/hr IV TITR ANN MARIE; Protocol Review of Systems Constitutional: no weight loss, no weight gain, no fever Breasts: no change in shape, no swelling, no mass Cardiovascular: orthopnea, dyspnea on exertion, paroxysmal nocturnal dyspnea, high blood pressure, decreased exercise tolerance, no chest pain Respiratory: no cough, no cough with sputum, no excessive sputum Gastrointestinal: no abdominal pain, no nausea, no vomiting, no diarrhea, no constipation Genitourinary Female: no pelvic pain, no flank pain, no dysuria, no urinary frequency, no urgency Rectal: no pain, no incontinence, no bleeding Musculoskeletal: no neck stiffness, no neck pain, no shooting arm pain, no arm numbness/tingling Integumentary: no rash, no pruritis, no redness, no sores, no wounds Neurological: no transient paralysis, no paralysis, no parathesias, no numbness, no seizures, no syncope, no tremors Psychiatric: no anxiety, no memory loss, no sleep disturbances, no hypersomnia, no change in appetite Endocrine: no cold intolerance, no polyphagia, no excessive thirst, no polyuria, no excessive sweating Hematologic/Lymphatic: no easy bruising, no easy bleeding, no lymphadenopathy, no lymphedema Allergic/Immunologic: no allergic rhinitis, no persistent infections, no an aphylaxis Exam - Constitutional Vitals: Temp Pulse Resp BP Pulse Ox 98.1 F 106 H 16 213/143 99 01/29/21 17:16 01/29/21 17:16 01/29/21 17:16 01/29/21 17:16 01/29/21 17:16 General appearance: Present: mild distress, obese - EENT Eyes: Present: PERRL ENT: hearing intact, clear oral mucosa - Neck Neck: Present: supple, normal ROM - Respiratory Respiratory effort: normal Respiratory: bilateral: CTA - Cardiovascular Heart Sounds: Present: S1 & S2. Absent: rub, click - Extremities Extremities: pulses symmetrical Extremity abnormal: edema Peripheral Pulses: within normal limits - Abdominal General gastrointestinal: Present: soft, non-tender, non-distended, normal bowel sounds Female genitourinary: Present: normal - Integumentary Integumentary: Present: clear, warm, dry - Musculoskeletal Musculoskeletal: gait normal, strength equal bilaterally - Psychiatric Psychiatric: appropriate mood/affect, intact judgment & insight - Neurologic Neurologic: CNII-XII intact, moves all extremities HEART Score - HEART Score Troponin: Troponin T < 0.010 ng/mL (0.00-0.029) 01/29/21 17:20 Results - Labs CBC & Chem 7: 01/29/21 17:20 01/29/21 17:20 Labs: Abnormal lab results 01/29/21 01/29/21 Range/Units 17:20 17:20 RBC 5.12 H (3.65-5.03) M/mm3 Hgb 9.3 L (10.1-14.3) gm/dl MCV 64 L (79-97) fl MCH 18 L (28-32) pg MCHC 28 L (30-34) % RDW 23.5 H (13.2-15.2) % Chloride 107.5 H (98-107) mmol/L NT-Pro-B Natriuret Pep 5954 H (0-900) pg/mL Assessment and Plan - Patient Problems (1) Acute exacerbation of CHF (congestive heart failure) Current Visit: Yes Status: Acute Qualifiers: Heart failure type: combined systolic and diastolic Qualified Code(s): I50.43 - Acute on chronic combined systolic (congestive) and diastolic (congestive) heart failure Plan to address problem: CHF protocol: Strict I/O, monitor urine output every shift, daily weight, afterload reduction, supplemental oxygen, pulse oximetry, diuresis with Lasix, echocardiogram from 09/30 reviewed. (2) Malignant hypertension Current Visit: Yes Status: Acute Plan to address problem: Monitor blood pressure every shift, nitro drip initiated in ER, blood pressure check q. routine, continue prehospital antihypertensive therapy. (3) Obesity hypoventilation syndrome Current Visit: Yes Status: Acute Plan to address problem: Balanced diet, increase physical activity at discharge, outpatient pulmonary follow-up for sleep study, outpatient bariatric surgery follow-up. (4) Acute and chronic respiratory failure Current Visit: Yes Status: Acute Qualifiers: Respiratory failure complication: hypoxia Qualified Code(s): J96.21 - Acute and chronic respiratory failure with hypoxia Plan to address problem: Supplemental oxygen, pulse oximetry, nebulizer therapy, (5) DVT prophylaxis Current Visit: Yes Status: Acute Plan to address problem: SCD to bilateral lower extremities while in bed, prophylactic anticoagulation (6) Advance care planning Current Visit: Yes Status: Acute Plan to address problem: Disease education conducted, care plan discussed, diagnoses discussed, prognosis discussed, patient is full code, patient knowledges understanding agree with care plan, +30 minutes.
[2021-01-29] MEDS ORDERED: ALBUTEROL 2.5 MG/3 ML NEBU IH PRN (18:37)
[2021-01-29] MEDS ORDERED: ACETAMINOPHEN 325 MG TAB PO PRN (18:37)
[2021-01-29] MEDS ORDERED: hydrOXYzine PAMOATE 25 MG CAP PO PRN (19:13)
[2021-01-29] MEDS ORDERED: DEXTROSE 50% IN WATER (25GM) 50 ML SYRINGE IV PRN (19:15)
[2021-01-29] MEDS: BUDESONIDE 0.5 MG/2 ML NEBU IH SCH (21:55)
[2021-01-29] MEDS ORDERED: NON-FORMULARY EACH (Mirtazapine [Mirtazapine] 7.5 MG Tablet) PO SCH (22:00)
[2021-01-30] MEDS: FAMOTIDINE 20 MG TAB PO SCH ×2 (00:10→10:24)
[2021-01-30] MEDS: METOPROLOL TARTRATE 50 MG TAB PO SCH ×2 (00:10→10:23)
[2021-01-30] MEDS: FERROUS SULFATE 325 MG TAB PO SCH ×2 (00:10→10:25)
[2021-01-30] MEDS: oxyCODONE /ACETAMINOPHEN 5-325MG TAB PO PRN (00:10)
[2021-01-30] MEDS: MIRTAZAPINE 15 MG TAB PO SCH (00:11)
[2021-01-30] MEDS: HEPARIN 5,000 UNIT/1 ML VIAL SUB-Q SCH ×2 (00:11→10:25)
[2021-01-30] MEDS: cloNIDine 0.2 MG TAB PO SCH ×2 (00:11→10:24)
[2021-01-30] MEDS: hydrALAZINE 100 MG TAB PO SCH ×3 (00:11→14:43)
[2021-01-30] MEDS: INSULIN LISPRO 100 UNIT/ML SUB-Q SCH ×4 (00:40→18:45)
[2021-01-30 04:17] LABS: Basophils # (Auto) 0.1 K/mm3 (0.0-0.1); Basophils % (Auto) 1.3 % (0.0-1.8); Eosinophils # (Auto) 0.3 K/mm3 (0.0-0.4); Eosinophils % (Auto) 5.7 % (0.0-4.3); Lymphocytes # (Auto) 0.9 K/mm3 (1.2-5.4); Lymphocytes % (Auto) 17.2 % (13.4-35.0); Mean Corpuscular HGB Conc 29 % (30-34); Monocytes # (Auto) 0.6 K/mm3 (0.0-0.8); Monocytes % (Auto) 11.4 % (0.0-7.3); Platelet Count 248 K/mm3 (140-440); Red Blood Count 4.93 M/mm3 (3.65-5.03)
[2021-01-30 04:18] LABS: Hematocrit 31.3 % (30.3-42.9); Hemoglobin 9.2 gm/dl (10.1-14.3); Mean Corpuscular Volume 64 fl (79-97)
[2021-01-30 04:19] LABS: Red Cell Distribution Width 23.1 % (13.2-15.2)
[2021-01-30 05:08] LABS: Blood Urea Nitrogen 12 mg/dL (7-17); Calcium 8.7 mg/dL (8.4-10.2); Hemolysis Index 8
[2021-01-30 05:10] LABS: BUN/Creatinine Ratio 17
[2021-01-30] MEDS: FUROSEMIDE 40 MG/4 ML INJ IV SCH ×2 (05:56→17:33)
[2021-01-30] MEDS ORDERED: hydrALAZINE 20 MG/1 ML INJ IV PRN (06:56)
[2021-01-30] MEDS: BUDESONIDE 0.5 MG/2 ML NEBU IH SCH (09:16)
--- NOTE | 2021-01-30 10:17 | Progress Note ---
Assessment and Plan Assessment and plan: 60 YO Female with PMhx of CHF, HTN, OA, CAD S/P Stent x2 on DAPT, Nicotine Dependence, [place], Morbid Obesity, COPD, Obesity Hypoventilation Syndrome, Chronic Respiratory Failure on 3.5L of O2 at home presented with acute CHF exacerbation and was found to be in hypertensive urgency required Nitro gtt. Assessment /plan: #Acute exacerbation of CHF (congestive heart failure) - Cont. CHF protocol: Strict I/O, monitor urine output every shift, daily weight, afterload reduction, Low Na diet-Fluid restriction 1.5L - Supplemental oxygen - 09/15/20 echocardiogram: EF 50-55%. Lt. moderate ventricular hypertrophy. Trace to mild tricuspid regurgitation - ProBNP on admit: 5954. Cont. diuresis with Lasix BID #Malignant hypertension - 01/30 off Nitro gtt. Continue home antihypertensive therapy - PRN hydralazine for SBP greater than 160 - Monitor blood pressure every shift #Obesity hypoventilation syndrome - Balanced diet, increase physical activity at discharge - Outpatient pulmonary follow-up for sleep study, outpatient bariatric surgery follow-up. #Acute on chronic respiratory failure - Supplemental oxygen currently at 5L NC - Wean O2 as tolerated, Pulse Ox monitor routine with VS - Cont nebulizer therapy #DVT prophylaxis - SCDs to bilateral lower extremities while in bed - prophylactic anticoagulation- Hep SUbQ Q12hrs #Advance care planning - Disease education conducted, care plan discussed, diagnoses discussed, prognosis discussed, and patient knowledges understanding agree with care plan History Interval history: Patient was seen in the ED, fully AAOX4, on 5L NC, with PERALES with exertion. Currently off Nitro gtt, SBP in the 140- 150s. Will restart patient on PO home meds, PRN Hydralazine for SBP than than 160. Continue IV Lasix BID, strict I&Os. Start patient on low Na diet with 1500ml Fluid restriction. Transfer to Med/Surg. Hospitalist Physical - Constitutional Vitals: Temp Pulse Resp BP Pulse Ox 98.1 F 81 16 143/95 100 01/29/21 17:16 01/30/21 09:21 01/30/21 09:21 01/30/21 07:04 01/30/21 07:04 General appearance: Present: mild distress, obese - EENT Eyes: Present: PERRL, EOM intact ENT: hearing intact, clear oral mucosa - Respiratory Respiratory effort: labored (SOB with exertion) Respiratory: bilateral: diminished - Cardiovascular Rhythm: regular Heart Sounds: Present: S1 & S2 - Extremities Extremities: pulses intact, pulses symmetrical Extremity abnormal: edema - Peripheral Assessment Bilateral Leg Edema Type: Non-pitting Edema Degree: 1+ Capillary Refill: < 3 seconds Skin Temperature: Warm Bilateral Arm Edema Degree: 1+ Capillary Refill: < 3 seconds Skin Temperature: Warm Peripheral Pulses: within normal limits - Abdominal General gastrointestinal: soft, non-tender, normal bowel sounds - Integumentary Integumentary: Present: clear, warm, dry - Psychiatric Psychiatric: appropriate mood/affect, intact judgment & insight - Neurologic Neurologic: CNII-XII intact, moves all extremities - Allied Health Allied health notes reviewed: nursing HEART Score - HEART Score Troponin: Troponin T < 0.010 ng/mL (0.00-0.029) 01/29/21 17:20 Results - Labs CBC & Chem 7: 01/30/21 03:23 01/30/21 03:23 Labs: Laboratory Last Values WBC 5.3 K/mm3 (4.5-11.0) 01/30/21 03:23 RBC 4.93 M/mm3 (3.65-5.03) 01/30/21 03:23 Hgb 9.2 gm/dl (10.1-14.3) L 01/30/21 03:23 Hct 31.3 % (30.3-42.9) 01/30/21 03:23 MCV 64 fl (79-97) L 01/30/21 03:23 MCH 19 pg (28-32) L 01/30/21 03:23 MCHC 29 % (30-34) L 01/30/21 03:23 RDW 23.1 % (13.2-15.2) H 01/30/21 03:23 Plt Count 248 K/mm3 (140-440) 01/30/21 03:23 Lymph % (Auto) 17.2 % (13.4-35.0) 01/30/21 03:23 [place] % (Auto) 11.4 % (0.0-7.3) H 01/30/21 03:23 Eos % (Auto) 5.7 % (0.0-4.3) H 01/30/21 03:23 Baso % (Auto) 1.3 % (0.0-1.8) 01/30/21 03:23 Lymph # (Auto) 0.9 K/mm3 (1.2-5.4) L 01/30/21 03:23 [place] # (Auto) 0.6 K/mm3 (0.0-0.8) 01/30/21 03:23 Eos # (Auto) 0.3 K/mm3 (0.0-0.4) 01/30/21 03:23 Baso # (Auto) 0.1 K/mm3 (0.0-0.1) 01/30/21 03:23 Seg Neutrophils % 64.4 % (40.0-70.0) 01/30/21 03:23 Seg Neutrophils # 3.4 K/mm3 (1.8-7.7) 01/30/21 03:23 Sodium 140 mmol/L (137-145) 01/30/21 03:23 Potassium 3.7 mmol/L (3.6-5.0) 01/30/21 03:23 Chloride 107.9 mmol/L (98-107) H 01/30/21 03:23 Carbon Dioxide 20 mmol/L (22-30) L 01/30/21 03:23 Anion Gap 16 mmol/L 01/30/21 03:23 BUN 12 mg/dL (7-17) 01/30/21 03:23 Creatinine 0.7 mg/dL (0.6-1.2) 01/30/21 03:23 Estimated GFR > 60 ml/min 01/30/21 03:23 BUN/Creatinine Ratio 17 % 01/30/21 03:23 Glucose 74 mg/dL (65-100) 01/30/21 03:23 POC Glucose 90 mg/dL (70-105) 01/30/21 07:58 Calcium 8.7 mg/dL (8.4-10.2) 01/30/21 03:23 Troponin T < 0.010 ng/mL (0.00-0.029) 01/29/21 17:20 NT-Pro-B Natriuret Pep 5954 pg/mL (0-900) H 01/29/21 17:20 Active Medications - Current Medications Current Medications: Generic Name Dose Route Start Last Admin Trade Name Freq PRN Reason Stop Dose Admin Acetaminophen 650 mg 01/29/21 18:37 Acetaminophen 325 Mg Tab PO Q6H PRN Pain MILD(1-3)/Fever >100.5/ALAS Albuterol 2.5 mg 01/29/21 18:37 01/30/21 09:19 Albuterol 2.5 Mg/3 Ml Nebu IH 2.5 mg Q3HRT PRN Administration Shortness Of Breath Amlodipine Besylate 10 mg 01/30/21 10:00 Amlodipine 10 Mg Tab PO DAILY ANN MARIE Aspirin 81 mg 01/30/21 10:00 Aspirin Ec 81 Mg Tab PO QDAY ANN MARIE Atorvastatin Calcium 40 mg 01/29/21 22:00 01/30/21 00:11 Atorvastatin 40 Mg Tab PO 40 mg QHS ANN MARIE Administration Budesonide 0.5 mg 01/29/21 20:00 01/30/21 09:16 Budesonide 0.5 Mg/2 Ml Nebu IH 0.5 mg Q12HRT ANN MARIE Administration Celecoxib 200 mg 01/30/21 10:00 Celecoxib 200 Mg Cap PO DAILY ANN MARIE Clonidine HCl 0.2 mg 01/29/21 22:00 01/30/21 00:11 Clonidine 0.2 Mg Tab PO 0.2 mg BID ANN MARIE Administration Clopidogrel Bisulfate 75 mg 01/30/21 10:00 Clopidogrel 75 Mg Tab PO QDAY ANN MARIE Dextrose 50 ml 01/29/21 19:15 Dextrose 50% In Water (25gm) 50 Ml Syringe IV Q30MIN PRN Hypoglycemia Protocol Famotidine 20 mg 01/29/21 22:00 01/30/21 00:10 Famotidine 20 Mg Tab PO 20 mg BID ANN MARIE Administration Ferrous Sulfate 325 mg 01/29/21 22:00 01/30/21 00:10 Ferrous Sulfate 325 Mg Tab PO 325 mg BID ANN MARIE Administration Fluoxetine HCl 20 mg 01/30/21 10:00 Fluoxetine 20 Mg Cap PO QDAY ANN MARIE Furosemide 40 mg 01/30/21 06:00 01/30/21 05:56 Furosemide 40 Mg/4 Ml Inj IV 40 mg BID@0600,1800 ANN MARIE Administration Heparin Sodium (Porcine) 5,000 unit 01/29/21 22:00 01/30/21 00:11 Heparin 5,000 Unit/1 Ml Vial SUB-Q 5,000 unit Q12HR ANN MARIE Administration Hydralazine HCl 100 mg 01/29/21 22:00 01/30/21 05:56 Hydralazine 100 Mg Tab PO 100 mg Q8HR ANN MARIE Administration Hydralazine HCl 10 mg 01/30/21 06:56 Hydralazine 20 Mg/1 Ml Inj IV Q4HR PRN systolic greater than 160 Hydromorphone HCl 0.5 mg 01/29/21 18:37 Hydromorphone 1 Mg/1 Ml Inj IV Q24H PRN Pain , Severe (7-10) Hydroxyzine Pamoate 25 mg 01/29/21 19:13 01/29/21 20:51 Hydroxyzine Pamoate 25 Mg Cap PO 25 mg BID PRN Administration Anxiety Insulin Human Lispro 0 unit 01/30/21 00:00 01/30/21 06:05 Insulin Lispro 100 Unit/Ml SUB-Q Not Given Q6HR [facility] Protocol Isosorbide Mononitrate 60 mg 01/30/21 10:00 Isosorbide Mononitrate Er 60 Mg Tab PO QDAY ANN MARIE Metoprolol Tartrate 50 mg 01/29/21 22:00 01/30/21 00:10 Metoprolol Tartrate 50 Mg Tab PO 50 mg BID ANN MARIE Administration Mirtazapine 7.5 mg 01/29/21 22:00 01/30/21 00:11 Mirtazapine 15 Mg Tab PO 7.5 mg QHS ANN MARIE Administration Oxycodone/Acetaminophen 1 tab 01/29/21 18:37 01/30/21 00:10 Oxycodone /Acetaminophen 5-325mg Tab PO 1 tab Q12H PRN Administration Pain, Moderate (4-6) Sodium Chloride 10 ml 01/29/21 22:00 01/30/21 00:13 Sodium Chloride 0.9% 10 Ml Flush Syringe IV 10 ml BID ANN MARIE Administration Sodium Chloride 10 ml 01/29/21 18:37 Sodium Chloride 0.9% 10 Ml Flush Syringe IV PRN PRN LINE FLUSH Venlafaxine HCl 25 mg 01/30/21 10:00 Venlafaxine 25 Mg Tab PO DAILY [facility]
[2021-01-30] MEDS: ASPIRIN EC 81 MG TAB PO SCH (10:24)
[2021-01-30] MEDS: CLOPIDOGREL 75 MG TAB PO SCH (10:24)
[2021-01-30] MEDS: amLODIPine 10 MG TAB PO SCH (10:25)
[2021-01-30] MEDS: FLUoxetine 20 MG CAP PO SCH (10:26)
[2021-01-30] MEDS: CELECOXIB 200 MG CAP PO SCH (12:13)
[2021-01-30] MEDS: VENLAFAXINE 25 MG TAB PO SCH (12:14)
[2021-01-30] MEDS: HYDROmorphone 1 MG/1 ML INJ IV PRN (17:52)
[2021-01-31] MEDS: INSULIN LISPRO 100 UNIT/ML SUB-Q SCH ×4 (00:14→17:02)
[2021-01-31] MEDS: HEPARIN 5,000 UNIT/1 ML VIAL SUB-Q SCH ×3 (00:14→21:37)
[2021-01-31] MEDS: MIRTAZAPINE 15 MG TAB PO SCH ×2 (00:15→21:38)
[2021-01-31] MEDS: FERROUS SULFATE 325 MG TAB PO SCH ×3 (00:15→21:38)
[2021-01-31] MEDS: METOPROLOL TARTRATE 50 MG TAB PO SCH ×3 (00:15→21:46)
[2021-01-31] MEDS: hydrALAZINE 100 MG TAB PO SCH ×4 (00:16→21:39)
[2021-01-31] MEDS: cloNIDine 0.2 MG TAB PO SCH ×3 (00:16→21:39)
[2021-01-31] MEDS: FAMOTIDINE 20 MG TAB PO SCH ×3 (00:16→21:39)
[2021-01-31] MEDS: FUROSEMIDE 40 MG/4 ML INJ IV SCH ×2 (06:53→18:39)
[2021-01-31 08:16] LABS: Blood Urea Nitrogen 18 mg/dL (7-17); Calcium 8.7 mg/dL (8.4-10.2); Hemolysis Index 0
[2021-01-31 08:21] LABS: BUN/Creatinine Ratio 26
[2021-01-31] MEDS: IPRATROPIUM/ALBUTEROL SULFATE 3 ML AMPUL.NEB IH SCH ×5 (09:35→21:00)
[2021-01-31] MEDS: BUDESONIDE 0.5 MG/2 ML NEBU IH SCH ×3 (09:36→21:00)
[2021-01-31] MEDS: ASPIRIN EC 81 MG TAB PO SCH (10:55)
[2021-01-31] MEDS: CLOPIDOGREL 75 MG TAB PO SCH (10:56)
[2021-01-31] MEDS: FLUoxetine 20 MG CAP PO SCH (10:56)
[2021-01-31] MEDS: VENLAFAXINE 25 MG TAB PO SCH (10:56)
[2021-01-31] MEDS: CELECOXIB 200 MG CAP PO SCH (10:57)
[2021-01-31] MEDS: amLODIPine 10 MG TAB PO SCH (10:57)
[2021-01-31] MEDS: oxyCODONE /ACETAMINOPHEN 5-325MG TAB PO PRN (11:20)
--- NOTE | 2021-01-31 13:32 | Progress Note ---
Assessment and Plan Assessment and plan: The patient is a 60-year-old female with past medical history of CHF, hypertension, ADAN, CAD status post stent x2 (currently on DAPT), tobacco dependence, prior DE, morbid obesity, COPD, obesity hypoventilation syndrome, chronic respiratory failure (on 3.5 L of O2 at home) who presented with acute on chronic heart failure exacerbation and was found to be in hypertensive emergency requiring nitroglycerin gtt. #Acute exacerbation of congestive heart failure Continue CHF exacerbation protocol: Strict I/O, monitor urine output every shift, daily weights, afterload reduction, low-sodium diet, and fluid r estriction of approximately 1.5 mL/day Currently on 3 to 4 L of supplemental oxygen Pro BNP on admission; 5954. Continue diuresis with IV Lasix 40 mg twice daily Cardiology consulted; appreciate recs 09/15/2020 echocardiogram: EF 50 to 55%. Left moderate ventricular hypertrophy. Trace to mild tricuspid regurgitation. #Malignant hypertension Nitroglycerin gtt. initiated in the ED; discontinued on 01/30 Continue with home antihypertensive therapy Hydralazine as needed for SBP greater than 160 Continue to monitor blood pressure every shift #Obesity hypoventilation syndrome Continue balanced diet and increase physical activity at discharge Outpatient pulmonary follow-up for sleep study, outpatient bariatric surgery follow-up #Acute on chronic hypoxic respiratory failure Currently requiring 4 L nasal cannula of supplemental oxygen Continue to wean O2 as tolerated Continue nebulizer therapy #DVT prophylaxis Continue subcutaneous heparin every 12 hours Continue SCDs to bilateral lower extremities while in bed #Advance care planning Continue with physical therapy and pending final recs Disease education conducted, care plan discussed, diagnoses discussed, prognosis discussed, and patient acknowledges understanding with care plan Disposition Plan: Continue medical management Total Time Spent with Patient (Minutes): 30 min History Interval history: Patient endorses having continued shortness of breath and orthopnea. Patient denies fevers, chills, nausea, vomiting, abdominal pain, chest pain, urinary symptoms, or weakness. Patient continues to endorse bilateral lower leg e xtremity swelling. Hospitalist Physical - Constitutional Vitals: Temp Pulse Resp BP Pulse Ox 98.1 F 89 14 166/80 91 01/31/21 07:42 01/31/21 10:58 01/31/21 12:20 01/31/21 10:58 01/31/21 07:42 General appearance: Present: no acute distress, mild distress, obese - EENT Eyes: Present: PERRL, EOM intact ENT: hearing intact, clear oral mucosa, dentition normal - Neck Neck: Present: normal ROM - Respiratory Respiratory effort: normal Respiratory: bilateral: rales, rhonchi, negative: CTA, diminished, wheezing - Cardiovascular Rhythm: regular Heart Sounds: Present: S1 & S2 - Extremities Extremities: pulses intact, pulses symmetrical, normal temperature, normal color Extremity abnormal: edema, tenderness Peripheral Pulses: within normal limits - Abdominal General gastrointestinal: soft, tender, non-distended, other (DifficultyDoris abdominal sounds) - Integumentary Integumentary: Present: normal turgor - Psychiatric Psychiatric: appropriate mood/affect, intact judgment & insight, memory intact, cooperative - Neurologic Neurologic: CNII-XII intact - Allied Health Allied health notes reviewed: nursing, PT, case management HEART Score - HEART Score History: Moderately suspicious EKG: Non-specific Age: 45-65 Risk factors: > 3 risk factors or hx of atherosclerotic disease Troponin: Troponin T < 0.010 ng/mL (0.00-0.029) 01/29/21 17:20 Results - Labs CBC & Chem 7: 01/30/21 03:23 01/31/21 07:22 Labs: Laboratory Last Values WBC 5.3 K/mm3 (4.5-11.0) 01/30/21 03:23 RBC 4.93 M/mm3 (3.65-5.03) 01/30/21 03:23 Hgb 9.2 gm/dl (10.1-14.3) L 01/30/21 03:23 Hct 31.3 % (30.3-42.9) 01/30/21 03:23 MCV 64 fl (79-97) L 01/30/21 03:23 MCH 19 pg (28-32) L 01/30/21 03:23 MCHC 29 % (30-34) L 01/30/21 03:23 RDW 23.1 % (13.2-15.2) H 01/30/21 03:23 Plt Count 248 K/mm3 (140-440) 01/30/21 03:23 Lymph % (Auto) 17.2 % (13.4-35.0) 01/30/21 03:23 [place] % (Auto) 11.4 % (0.0-7.3) H 01/30/21 03:23 Eos % (Auto) 5.7 % (0.0-4.3) H 01/30/21 03:23 Baso % (Auto) 1.3 % (0.0-1.8) 01/30/21 03:23 Lymph # (Auto) 0.9 K/mm3 (1.2-5.4) L 01/30/21 03:23 [place] # (Auto) 0.6 K/mm3 (0.0-0.8) 01/30/21 03:23 Eos # (Auto) 0.3 K/mm3 (0.0-0.4) 01/30/21 03:23 Baso # (Auto) 0.1 K/mm3 (0.0-0.1) 01/30/21 03:23 Seg Neutrophils % 64.4 % (40.0-70.0) 01/30/21 03:23 Seg Neutrophils # 3.4 K/mm3 (1.8-7.7) 01/30/21 03:23 Sodium 141 mmol/L (137-145) 01/31/21 07:22 Potassium 3.7 mmol/L (3.6-5.0) 01/31/21 07:22 Chloride 109.2 mmol/L (98-107) H 01/31/21 07:22 Carbon Dioxide 20 mmol/L (22-30) L 01/31/21 07:22 Anion Gap 16 mmol/L 01/31/21 07:22 BUN 18 mg/dL (7-17) H 01/31/21 07:22 Creatinine 0.7 mg/dL (0.6-1.2) 01/31/21 07:22 Estimated GFR > 60 ml/min 01/31/21 07:22 BUN/Creatinine Ratio 26 % 01/31/21 07:22 Glucose 126 mg/dL (65-100) H 01/31/21 07:22 POC Glucose 131 mg/dL (70-105) H 01/31/21 11:12 Calcium 8.7 mg/dL (8.4-10.2) 01/31/21 07:22 Magnesium 2.00 mg/dL (1.7-2.3) 01/31/21 07:22 Troponin T < 0.010 ng/mL (0.00-0.029) 01/29/21 17:20 NT-Pro-B Natriuret Pep 5954 pg/mL (0-900) H 01/29/21 17:20 - Imaging and Cardiology EKG: image reviewed Chest x-ray: image reviewed Abdominal x-ray: image reviewed Fabian/IV: Voiding Method External Female Catheter Active Medications - Current Medications Current Medications: Generic Name Dose Route Start Last Admin Trade Name Freq PRN Reason Stop Dose Admin Acetaminophen 650 mg 01/29/21 18:37 Acetaminophen 325 Mg Tab PO Q6H PRN Pain MILD(1-3)/Fever >100.5/ALAS Albuterol 2.5 mg 01/29/21 18:37 01/30/21 09:19 Albuterol 2.5 Mg/3 Ml Nebu IH 2.5 mg Q3HRT PRN Administration Shortness Of Breath Albuterol/Ipratropium 1 ampul 01/30/21 20:00 01/31/21 09:35 Ipratropium/Albuterol Sulfate 3 Ml Ampul.Neb IH 1 ampul Q6HRT ANN MARIE Administration Amlodipine Besylate 10 mg 01/30/21 10:00 01/31/21 10:57 Amlodipine 10 Mg Tab PO 10 mg DAILY ANN MARIE Administration Aspirin 81 mg 01/30/21 10:00 01/31/21 10:55 Aspirin Ec 81 Mg Tab PO 81 mg QDAY ANN MARIE Administration Atorvastatin Calcium 40 mg 01/29/21 22:00 01/31/21 00:15 Atorvastatin 40 Mg Tab PO 40 mg QHS ANN MARIE Administration Budesonide 0.5 mg 01/29/21 20:00 01/31/21 09:36 Budesonide 0.5 Mg/2 Ml Nebu IH 0.5 mg Q12HRT ANN MARIE Administration Celecoxib 200 mg 01/30/21 10:00 01/31/21 10:57 Celecoxib 200 Mg Cap PO 200 mg DAILY ANN MARIE Administration Clonidine HCl 0.2 mg 01/29/21 22:00 01/31/21 10:57 Clonidine 0.2 Mg Tab PO 0.2 mg BID ANN MARIE Administration Clopidogrel Bisulfate 75 mg 01/30/21 10:00 01/31/21 10:56 Clopidogrel 75 Mg Tab PO 75 mg QDAY ANN MARIE Administration Dextrose 50 ml 01/29/21 19:15 Dextrose 50% In Water (25gm) 50 Ml Syringe IV Q30MIN PRN Hypoglycemia Protocol Famotidine 20 mg 01/29/21 22:00 01/31/21 10:56 Famotidine 20 Mg Tab PO 20 mg BID ANN MARIE Administration Ferrous Sulfate 325 mg 01/29/21 22:00 01/31/21 10:56 Ferrous Sulfate 325 Mg Tab PO 325 mg BID ANN MARIE Administration Fluoxetine HCl 20 mg 01/30/21 10:00 01/31/21 10:56 Fluoxetine 20 Mg Cap PO 20 mg QDAY ANN MARIE Administration Furosemide 40 mg 01/30/21 06:00 01/31/21 06:53 Furosemide 40 Mg/4 Ml Inj IV 40 mg BID@0600,1800 ANN MARIE Administration Heparin Sodium (Porcine) 5,000 unit 01/29/21 22:00 01/31/21 10:56 Heparin 5,000 Unit/1 Ml Vial SUB-Q 5,000 unit Q12HR ANN MARIE Administration Hydralazine HCl 100 mg 01/29/21 22:00 01/31/21 13:04 Hydralazine 100 Mg Tab PO 100 mg Q8HR ANN MARIE Administration Hydralazine HCl 10 mg 01/30/21 06:56 Hydralazine 20 Mg/1 Ml Inj IV Q4HR PRN systolic greater than 160 Hydromorphone HCl 0.5 mg 01/29/21 18:37 01/30/21 17:52 Hydromorphone 1 Mg/1 Ml Inj IV 0.5 mg Q24H PRN Administration Pain , Severe (7-10) Hydroxyzine Pamoate 25 mg 01/29/21 19:13 01/29/21 20:51 Hydroxyzine Pamoate 25 Mg Cap PO 25 mg BID PRN Administration Anxiety Insulin Human Lispro 0 unit 01/30/21 00:00 01/31/21 11:34 Insulin Lispro 100 Unit/Ml SUB-Q Not Given Q6HR [facility] Protocol Isosorbide Mononitrate 60 mg 01/30/21 10:00 01/31/21 10:58 Isosorbide Mononitrate Er 60 Mg Tab PO 60 mg QDAY ANN MARIE Administration Metoprolol Tartrate 50 mg 01/29/21 22:00 01/31/21 10:57 Metoprolol Tartrate 50 Mg Tab PO 50 mg BID ANN MARIE Administration Mirtazapine 7.5 mg 01/29/21 22:00 01/31/21 00:15 Mirtazapine 15 Mg Tab PO 7.5 mg QHS ANN MARIE Administration Oxycodone/Acetaminophen 1 tab 01/29/21 18:37 01/31/21 11:20 Oxycodone /Acetaminophen 5-325mg Tab PO 1 tab Q12H PRN Administration Pain, Moderate (4-6) Sodium Chloride 10 ml 01/29/21 22:00 01/31/21 10:58 Sodium Chloride 0.9% 10 Ml Flush Syringe IV 10 ml BID ANN MARIE Administration Sodium Chloride 10 ml 01/29/21 18:37 Sodium Chloride 0.9% 10 Ml Flush Syringe IV PRN PRN LINE FLUSH Venlafaxine HCl 25 mg 01/30/21 10:00 01/31/21 10:56 Venlafaxine 25 Mg Tab PO 25 mg DAILY ANN MARIE Administration Nutrition/Malnutrition Assess - Malnutrition Assessment Minimum of two criteria: No physical signs of malnutrition - Attestation Statement I have reviewed and agreed w/ Malnutrition eval & tx plan: Yes
--- NOTE | 2021-01-31 16:06 | Consultation ---
History of Present Illness Consult date: 01/31/21 Requesting physician: NATHAN ERNANDEZ Consult reason: congestive heart failure History of present illness: This patient is a 60 y/o female with a PMHX of CAD s/p PCI in 2019 on DAPT, DM, HFrEF(EF50-55%), HTN, and COPD on home 02 who [facility] with a complaint of SOB x 3 days. The patient reports that her symptoms progressively worsened but that the night before she came in her breathing was much worse and that she started to have chest pain which is why she came in. She describes the chest pain as tightness around her heart and rated it 10/10. At the tie of interview patient reports pain is 6/10. She states at home nothing relieved her SOB or chest pain and that exertion made it worse. She further reports that that she noticed she was retaining fluid on her legs. She admits to being noncompliant with medications and her diet. She endorses a cough and orthopnea but denies lightheadedness, nausea, vomiting, or palpitations. At her baseline she state she can only walk around 5 feet before becoming SOB. In ED patient was found to be in hypertensive emergency and required a nitroglycerin gtt which was d/c on 01/30/2021. Patient is followed by Dr. Hernandez of our group. Cardiology is consulted for CHF. Past History Past Medical History: CAD, COPD, heart failure, hypertension, hyperlipidemia Past Surgical History: appendectomy, cholecystectomy, hysterectomy, tonsillectomy, Other (Cardiac stent placement) Social history: single Family history: diabetes, hypertension Medications and Allergies Allergies Allergy/AdvReac Type Severity Reaction Status Date / Time Penicillins Allergy Severe GO INTO Verified 01/30/21 09:10 SHOCK Home Medications Medication Instructions Recorded Confirmed Last Taken Type AtorvaSTATin [Lipitor] 40 mg PO QHS #30 tablet 09/12/19 01/30/21 09/15/20 Rx Budesonide/Formoterol Fumarate 10.2 gm PO Q6H 10/06/19 01/30/21 Unknown History [Budesonide-Formoterol 160-4.5] Celecoxib [celeBREX] 200 mg PO DAILY 10/06/19 01/30/21 09/15/20 History Clopidogrel [Plavix] 75 mg PO QWEEK 10/06/19 01/30/21 Unknown History Dulaglutide [Trulicity] 0.75 mg SQ DAILY 10/06/19 01/30/21 Unknown History cloNIDine [Catapres] 0.2 mg PO BID 10/06/19 01/30/21 09/15/20 History Aspirin EC [Halfprin EC] 81 mg PO QDAY #30 tablet 10/09/19 01/30/21 09/15/20 Rx Arformoterol Nebu [Brovana Nebu] 15 mcg IH Q12HRT ml 07/25/20 01/30/21 09/15/20 Rx Budesonide [Pulmicort Respules] 0.5 mg IH Q12HRT nebu 07/25/20 01/30/21 Unknown Rx Famotidine [Pepcid] 20 mg PO BID tablet 07/25/20 01/30/21 09/15/20 Rx ISOSORBIDE MONOnitrate [Imdur ER] 60 mg PO QDAY #30 tablet 07/25/20 01/30/21 Unknown Rx Lispro Insulin [HumaLOG] 0 unit SUB-Q ACHS units 07/25/20 01/30/21 09/15/20 Rx hydrALAZINE [Apresoline TAB] 100 mg PO Q8HR #90 tab 07/25/20 01/30/21 09/15/20 Rx Mirtazapine 7.5 mg PO QHS #30 tablet 09/19/20 01/30/21 Unknown Rx hydrOXYzine PAMOATE [Vistaril] 25 mg PO BID PRN #60 capsule 09/19/20 01/30/21 Unknown Rx amLODIPine 10 mg PO DAILY #30 tablet 09/20/20 01/30/21 Unknown Rx Furosemide [Lasix TAB] 80 mg PO BID #60 tablet 11/19/20 01/30/21 Unknown Rx Metoprolol [Lopressor TAB] 50 mg PO BID #60 tablet 11/19/20 01/30/21 Unknown Rx Active Meds: Active Medications Acetaminophen (Acetaminophen 325 Mg Tab) 650 mg PO Q6H PRN PRN Reason: Pain MILD(1-3)/Fever >100.5/ALAS Albuterol (Albuterol 2.5 Mg/3 Ml Nebu) 2.5 mg IH Q3HRT PRN PRN Reason: Shortness Of Breath Last Admin: 01/30/21 09:19 Dose: 2.5 mg Documented by: Albuterol/Ipratropium (Ipratropium/Albuterol Sulfate 3 Ml Ampul.Neb) 1 ampul IH Q6HRT [facility] Last Admin: 01/31/21 16:00 Dose: 1 ampul Documented by: Amlodipine Besylate (Amlodipine 10 Mg Tab) 10 mg PO DAILY [facility] Last Admin: 01/31/21 10:57 Dose: 10 mg Documented by: Aspirin (Aspirin Ec 81 Mg Tab) 81 mg PO QDAY [facility] Last Admin: 01/31/21 10:55 Dose: 81 mg Documented by: Atorvastatin Calcium (Atorvastatin 40 Mg Tab) 40 mg PO QHS [facility] Last Admin: 01/31/21 00:15 Dose: 40 mg Documented by: Budesonide (Budesonide 0.5 Mg/2 Ml Nebu) 0.5 mg IH Q12HRT [facility] Last Admin: 01/31/21 09:36 Dose: 0.5 mg Documented by: Celecoxib (Celecoxib 200 Mg Cap) 200 mg PO DAILY [facility] Last Admin: 01/31/21 10:57 Dose: 200 mg Documented by: Clonidine HCl (Clonidine 0.2 Mg Tab) 0.2 mg PO BID [facility] Last Admin: 01/31/21 10:57 Dose: 0.2 mg Documented by: Clopidogrel Bisulfate (Clopidogrel 75 Mg Tab) 75 mg PO QDAY [facility] Last Admin: 01/31/21 10:56 Dose: 75 mg Documented by: Dextrose (Dextrose 50% In Water (25gm) 50 Ml Syringe) 50 ml IV Q30MIN PRN; Protocol PRN Reason: Hypoglycemia Famotidine (Famotidine 20 Mg Tab) 20 mg PO BID [facility] Last Admin: 01/31/21 10:56 Dose: 20 mg Documented by: Ferrous Sulfate (Ferrous Sulfate 325 Mg Tab) 325 mg PO BID [facility] Last Admin: 01/31/21 10:56 Dose: 325 mg Documented by: Fluoxetine HCl (Fluoxetine 20 Mg Cap) 20 mg PO QDAY [facility] Last Admin: 01/31/21 10:56 Dose: 20 mg Documented by: Furosemide (Furosemide 40 Mg/4 Ml Inj) 40 mg IV BID@0600,1800 [facility] Last Admin: 01/31/21 06:53 Dose: 40 mg Documented by: Heparin Sodium (Porcine) (Heparin 5,000 Unit/1 Ml Vial) 5,000 unit SUB-Q Q12HR [facility] Last Admin: 01/31/21 10:56 Dose: 5,000 unit Documented by: Hydralazine HCl (Hydralazine 100 Mg Tab) 100 mg PO Q8HR [facility] Last Admin: 01/31/21 13:04 Dose: 100 mg Documented by: Hydralazine HCl (Hydralazine 20 Mg/1 Ml Inj) 10 mg IV Q4HR PRN PRN Reason: systolic greater than 160 Hydromorphone HCl (Hydromorphone 1 Mg/1 Ml Inj) 0.5 mg IV Q24H PRN PRN Reason: Pain , Severe (7-10) Last Admin: 01/30/21 17:52 Dose: 0.5 mg Documented by: Hydroxyzine Pamoate (Hydroxyzine Pamoate 25 Mg Cap) 25 mg PO BID PRN PRN Reason: Anxiety Last Admin: 01/29/21 20:51 Dose: 25 mg Documented by: Insulin Human Lispro (Insulin Lispro 100 Unit/Ml) 0 unit SUB-Q Q6HR [facility]; Protocol Last Admin: 01/31/21 11:34 Dose: Not Given Documented by: Isosorbide Mononitrate (Isosorbide Mononitrate Er 60 Mg Tab) 60 mg PO QDAY [facility] Last Admin: 01/31/21 10:58 Dose: 60 mg Documented by: Metoprolol Tartrate (Metoprolol Tartrate 50 Mg Tab) 50 mg PO BID [facility] Last Admin: 01/31/21 10:57 Dose: 50 mg Documented by: Mirtazapine (Mirtazapine 15 Mg Tab) 7.5 mg PO QHS [facility] Last Admin: 01/31/21 00:15 Dose: 7.5 mg Documented by: Oxycodone/Acetaminophen (Oxycodone /Acetaminophen 5-325mg Tab) 1 tab PO Q12H PRN PRN Reason: Pain, Moderate (4-6) Last Admin: 01/31/21 11:20 Dose: 1 tab Documented by: Sodium Chloride (Sodium Chloride 0.9% 10 Ml Flush Syringe) 10 ml IV BID [facility] Last Admin: 01/31/21 10:58 Dose: 10 ml Documented by: Sodium Chloride (Sodium Chloride 0.9% 10 Ml Flush Syringe) 10 ml IV PRN PRN PRN Reason: LINE FLUSH Valsartan (Valsartan 160mg Tab) 160 mg PO DAILY [facility] Venlafaxine HCl (Venlafaxine 25 Mg Tab) 25 mg PO DAILY [facility] Last Admin: 01/31/21 10:56 Dose: 25 mg Documented by: Review of Systems All systems: negative Constitutional: no weight loss, no weight gain, no fever, no chills Ears, nose, mouth and throat: no nasal discharge, no sinus pressure, no sinus pain Cardiovascular: chest pain, orthopnea, edema, shortness of breath, dyspnea on exertion, no palpitations, no rapid/irregular heart beat, no syncope, no lightheadedness Respiratory: cough, shortness of breath, dyspnea on exertion, no hemoptysis Gastrointestinal: no nausea, no vomiting, no diarrhea Musculoskeletal: no neck stiffness, no neck pain, no shooting arm pain Integumentary: no rash, no pruritis, no redness Neurological: no head injury, no transient paralysis, no paralysis Psychiatric: no anxiety, no memory loss Endocrine: no cold intolerance, no heat intolerance Hematologic/Lymphatic: no easy bruising, no easy bleeding Physical Examination Vital Signs Temp Pulse Resp BP Pulse Ox 98.1 F 106 H 16 213/143 99 01/29/21 17:16 01/29/21 17:16 01/29/21 17:16 01/29/21 17:16 01/29/21 17:16 General appearance: no acute distress HEENT: Positive: PERRL Neck: Positive: trachea midline Cardiac: Positive: Reg Rate and Rhythm Lungs: Positive: Wheezes Neuro: Positive: Grossly Intact Abdomen: Positive: Soft, Active Bowel Sounds Skin: Negative: Rash, Suspicious Lesions, Ulceration Extremities: Present: upper extr. pulses, lower extr. pulses, +2 Edema Results 01/30/21 03:23 01/31/21 07:22 Comprehensive Metabolic Panel 01/31/21 Range/Units 07:22 Sodium 141 (137-145) mmol/L Potassium 3.7 (3.6-5.0) mmol/L Chloride 109.2 H (98-107) mmol/L Carbon Dioxide 20 L (22-30) mmol/L BUN 18 H (7-17) mg/dL Creatinine 0.7 (0.6-1.2) mg/dL Glucose 126 H (65-100) mg/dL Calcium 8.7 (8.4-10.2) mg/dL - Imaging and Cardiology Echo: report reviewed EKG: pending EKG interpretations - Telemetry EKG Rhythm: Sinus Rhythm - EKG Sinus rhythms and dysrhythmias: sinus rhythm Assessment and Plan HFpEF * Echocardiogram reviewed (09/15/2020): LVEF is 50 to 55%. LV SF is normal. Moderate LVH. RV SF is normal. Moderate pulmonary hypertension cannot be excluded due to poor regurgitant envelope * Telemetry reviewed: sinus 90s no events on monitor * BNP on admission 5954, BLE edema. Currently on Lasix 40mg IV BID * GDMT: asa, BB, LETTY/ARB, statin Acute hypoxic respiratory failure COPD (on home O2) * Currently on NC * Management per primary team HTN * Continue metoprolol 50mg PO BID, valsartan 160mg PO QD, amlodipine 10mg QD, c lonidine 0.2mg PO BID CAD s/p PCI 2018 * [facility] reviewed (2018): PCI with DIANELYS of mid ramus 70% * Continue DAPT and Imdur 60mg QD Continue diuretics. EKG pending, BMP in AM, strict I/Os, continue to monitor Patient seen in conjunction with Dr. Hernandez who agrees with this plan of care. Will continue to follow - Patient Problems (1) Acute and chronic respiratory failure Current Visit: Yes Status: Acute Qualifiers: Respiratory failure complication: hypoxia Qualified Code(s): J96.21 - Acute and chronic respiratory failure with hypoxia (2) Acute exacerbation of CHF (congestive heart failure) Current Visit: Yes Status: Acute Qualifiers: Heart failure type: combined systolic and diastolic Qualified Code(s): I50.43 - Acute on chronic combined systolic (congestive) and diastolic (congestive) heart failure (3) Malignant hypertension Current Visit: Yes Status: Acute (4) Obesity hypoventilation syndrome Current Visit: Yes Status: Acute (5) Precordial chest pain Current Visit: Yes Status: Acute (6) Shortness of breath Current Visit: Yes Status: Acute (7) Acute and chronic respiratory failure Current Visit: No Status: Acute Qualifiers: Respiratory failure complication: hypoxia Qualified Code(s): J96.21 - Acute and chronic respiratory failure with hypoxia (8) Morbid obesity with body mass index of 40.0-49.9 Current Visit: No Status: Acute (9) CAD (coronary artery disease) Current Visit: No Status: Chronic Qualifiers: Coronary Disease-Associated Artery/Lesion type: [place] artery [place] vs. transplanted heart: [place] heart Associated angina: with stable angina Qualified Code(s): I25.118 - Atherosclerotic heart disease of [place] coronary artery with other forms of angina pectoris (10) H/O cardiomyopathy Current Visit: No Status: Chronic (11) Medical non-compliance Current Visit: No Status: Chronic
[2021-01-31] MEDS: HYDROmorphone 1 MG/1 ML INJ IV PRN (18:39)
[2021-02-01] MEDS: IPRATROPIUM/ALBUTEROL SULFATE 3 ML AMPUL.NEB IH SCH ×3 (05:27→17:40)
[2021-02-01] MEDS: INSULIN LISPRO 100 UNIT/ML SUB-Q SCH ×4 (05:52→17:47)
[2021-02-01] MEDS: FUROSEMIDE 40 MG/4 ML INJ IV SCH ×2 (06:06→17:49)
[2021-02-01] MEDS: hydrALAZINE 100 MG TAB PO SCH ×3 (06:06→22:03)
[2021-02-01 06:21] LABS: Basophils % (Auto) 0.5 % (0.0-1.8); Eosinophils # (Auto) 0.2 K/mm3 (0.0-0.4); Eosinophils % (Auto) 1.7 % (0.0-4.3); Lymphocytes # (Auto) 0.4 K/mm3 (1.2-5.4); Lymphocytes % (Auto) 4.9 % (13.4-35.0); Mean Corpuscular HGB Conc 28 % (30-34); Monocytes # (Auto) 0.9 K/mm3 (0.0-0.8); Monocytes % (Auto) 10.5 % (0.0-7.3); Platelet Count 257 K/mm3 (140-440); Red Blood Count 4.88 M/mm3 (3.65-5.03)
[2021-02-01 06:43] LABS: BUN/Creatinine Ratio 21; Blood Urea Nitrogen 19 mg/dL (7-17); Calcium 8.9 mg/dL (8.4-10.2); Hemolysis Index 1
[2021-02-01 06:53] LABS: Hematocrit 30.8 % (30.3-42.9); Hemoglobin 8.7 gm/dl (10.1-14.3); Mean Corpuscular Volume 63 fl (79-97)
[2021-02-01 06:54] LABS: Red Cell Distribution Width 23.3 % (13.2-15.2)
[2021-02-01] MEDS: BUDESONIDE 0.5 MG/2 ML NEBU IH SCH (08:48)
[2021-02-01] MEDS: METOPROLOL TARTRATE 50 MG TAB PO SCH ×2 (09:28→22:13)
[2021-02-01] MEDS: CLOPIDOGREL 75 MG TAB PO SCH (09:28)
[2021-02-01] MEDS: FAMOTIDINE 20 MG TAB PO SCH ×2 (09:28→22:03)
[2021-02-01] MEDS: FLUoxetine 20 MG CAP PO SCH (09:28)
[2021-02-01] MEDS: ASPIRIN EC 81 MG TAB PO SCH (09:28)
[2021-02-01] MEDS: CELECOXIB 200 MG CAP PO SCH (09:28)
[2021-02-01] MEDS: VENLAFAXINE 25 MG TAB PO SCH (09:29)
[2021-02-01] MEDS: cloNIDine 0.2 MG TAB PO SCH ×2 (09:29→22:04)
[2021-02-01] MEDS: FERROUS SULFATE 325 MG TAB PO SCH ×2 (09:30→22:05)
[2021-02-01] MEDS: VALSARTAN 160MG TAB PO SCH (09:30)
[2021-02-01] MEDS: HEPARIN 5,000 UNIT/1 ML VIAL SUB-Q SCH ×2 (09:30→22:05)
[2021-02-01] MEDS: amLODIPine 10 MG TAB PO SCH (09:30)
--- NOTE | 2021-02-01 12:43 | Progress Note ---
Assessment and Plan HFpEF * Echocardiogram reviewed (09/15/2020): LVEF is 50 to 55%. LV SF is normal. Moderate LVH. RV SF is normal. Moderate pulmonary hypertension cannot be excluded due to poor regurgitant envelope * Telemetry reviewed: sinus 90s no events on monitor * BNP on admission 5954, BLE edema. Currently on Lasix 40mg IV BID * GDMT: asa, BB, LETTY/ARB, statin * EKG showed normal sinus rhythm with no acute ischemic changes Acute hypoxic respiratory failure COPD (on home O2) * Currently on NC * Management per primary team HTN * Continue metoprolol 50mg PO BID, valsartan 160mg PO QD, amlodipine 10mg QD, clonidine 0.2mg PO BID CAD s/p PCI 2018 * [facility] 06/20/2018 successful PCI with intravascular ultrasound of the ramus with DIANELYS which was 100% culprit vessel with DIANELYS. Left main patent, LAD patent. RCA mmoderate to severe tortuosity with mid stent patent, circumflex pateent, ARIELA 50% with sintia 100% with successful PCI. Acute diastolic dysfunction. * Continue DAPT and Imdur 60mg QD Continue diuretics. Strict I/Os, BMP in AM, continue to monitor Patient seen in conjunction with Dr. Hernandez who agrees with this plan of care. Will continue to follow - Patient Problems (1) Acute and chronic respiratory failure Current Visit: Yes Status: Acute Qualifiers: Respiratory failure complication: hypoxia Qualified Code(s): J96.21 - Acute and chronic respiratory failure with hypoxia (2) Acute exacerbation of CHF (congestive heart failure) Current Visit: Yes Status: Acute Qualifiers: Heart failure type: combined systolic and diastolic Qualified Code(s): I50.43 - Acute on chronic combined systolic (congestive) and diastolic (congestive) heart failure (3) Malignant hypertension Current Visit: Yes Status: Acute (4) Obesity hypoventilation syndrome Current Visit: Yes Status: Acute (5) Precordial chest pain Current Visit: Yes Status: Acute (6) Shortness of breath Current Visit: Yes Status: Acute (7) Acute and chronic respiratory failure Current Visit: No Status: Acute Qualifiers: Respiratory failure complication: hypoxia Qualified Code(s): J96.21 - Acute and chronic respiratory failure with hypoxia (8) Morbid obesity with body mass index of 40.0-49.9 Current Visit: No Status: Acute (9) CAD (coronary artery disease) Current Visit: No Status: Chronic Qualifiers: Coronary Disease-Associated Artery/Lesion type: [place] artery [place] vs. transplanted heart: [place] heart Associated angina: with stable angina Qualified Code(s): I25.118 - Atherosclerotic heart disease of [place] coronary artery with other forms of angina pectoris (10) H/O cardiomyopathy Current Visit: No Status: Chronic (11) Medical non-compliance Current Visit: No Status: Chronic Subjective Date of service: 02/01/21 Principal diagnosis: HFpEF, Hypertensive emergency, Acuteon chronic respiratory failure Interval history: Patient sitting in bed reports feeling better Sinus 70s on monitor Objective Vital Signs Temp Pulse Pulse Resp Resp BP Pulse Ox 02/01/21 10:47 15 94 02/01/21 10:00 87 02/01/21 09:30 79 120/76 02/01/21 09:29 79 120/76 02/01/21 09:28 82 02/01/21 08:52 79 18 97 02/01/21 08:10 98.2 F 77 18 117/58 90 02/01/21 03:50 99.4 F 80 20 146/84 94 02/01/21 03:00 17 94 01/31/21 22:17 97.9 F 81 20 124/59 91 01/31/21 22:00 97 H 01/31/21 21:46 74 119/65 01/31/21 21:39 74 119/65 01/31/21 21:00 74 18 01/31/21 20:44 98.7 F 74 20 119/65 97 01/31/21 18:39 18 01/31/21 16:10 88 20 01/31/21 15:37 98.2 F 71 20 117/56 92 01/31/21 13:31 17 94 - Physical Examination General: No Apparent Distress HEENT: Positive: PERRL Neck: Positive: trachea midline Cardiac: Positive: Reg Rate and Rhythm Lungs: Positive: Wheezes Neuro: Positive: Grossly Intact Abdomen: Positive: Soft, Active Bowel Sounds Skin: Negative: Rash, Suspicious Lesions, Ulceration Extremities: Present: upper extr. pulses, lower extr. pulses, +2 Edema - Labs and Meds CBC 02/01/21 Range/Units 05:50 WBC 9.0 (4.5-11.0) K/mm3 RBC 4.88 (3.65-5.03) M/mm3 Hgb 8.7 L (10.1-14.3) gm/dl Hct 30.8 (30.3-42.9) % Plt Count 257 (140-440) K/mm3 Lymph # (Auto) 0.4 L (1.2-5.4) K/mm3 [place] # (Auto) 0.9 H (0.0-0.8) K/mm3 Eos # (Auto) 0.2 (0.0-0.4) K/mm3 Baso # (Auto) 0.0 (0.0-0.1) K/mm3 Comprehensive Metabolic Panel 02/01/21 Range/Units 05:50 Sodium 139 (137-145) mmol/L Potassium 3.6 (3.6-5.0) mmol/L Chloride 105.5 (98-107) mmol/L Carbon Dioxide 22 (22-30) mmol/L BUN 19 H (7-17) mg/dL Creatinine 0.9 (0.6-1.2) mg/dL Glucose 108 H (65-100) mg/dL Calcium 8.9 (8.4-10.2) mg/dL - Imaging and Cardiology EKG: report reviewed Echo: report reviewed ((09/15/2020): LVEF is 50 to 55%. LV SF is normal. Moderate LVH. RV SF is normal. Moderate pulmonary hypertension cannot be excluded due to poor regurgitant envelope) Cardiac cath: report reviewed ([facility] 06/20/2018 successful PCI with intravascular ultrasound of the ramus with DIANELYS which was 100% culprit vessel with DIANELYS. Left main patent, LAD patent. RCA mmoderate to severe tortuosity with mid stent patent, circumflex pateent, ARIELA 50% with sintia 100% with successful PCI. Acute diastolic dysfunction) - Telemetry EKG Rhythm: Sinus Rhythm - EKG Sinus rhythms and dysrhythmias: sinus rhythm QRS axis and voltage: right axis deviation
--- NOTE | 2021-02-01 13:48 | Progress Note ---
Assessment and Plan Assessment and plan: The patient is a 60-year-old female with past medical history of CHF, hypertension, ADAN, CAD status post stent x2 (currently on DAPT), tobacco dependence, prior [place], morbid obesity, COPD, obesity hypoventilation syndrome, chronic respiratory failure (on 3.5 L of O2 at home) who presented with acute on chronic heart failure exacerbation and was found to be in hypertensive emergency requiring nitroglycerin gtt. #Acute exacerbation of congestive heart failure Continue CHF exacerbation protocol: Strict I/O, monitor urine output every shift, daily weights, afterload reduction, low-sodium diet, and fluid restriction of approximately 1.5 mL/day Currently on 3 to 4 L of supplemental oxygen Pro BNP on admission; 5954. Continue diuresis with IV Lasix 40 mg twice daily Cardiology consulted; appreciate recs 09/15/2020 echocardiogram: EF 50 to 55%. Left moderate ventricular hypertrophy. Trace to mild tricuspid regurgitation. #Malignant hypertension-resolved Nitroglycerin gtt. initiated in the ED; discontinued on 01/30 Continue with home antihypertensive therapy Hydralazine as needed for SBP greater than 160 Continue to monitor blood pressure every shift #Obesity hypoventilation syndrome Continue balanced diet and increase physical activity at discharge Outpatient pulmonary follow-up for sleep study, outpatient bariatric surgery follow-up #Acute on chronic hypoxic respiratory failure Currently requiring 4 L nasal cannula of supplemental oxygen Continue to wean O2 as tolerated Continue nebulizer therapy #DVT prophylaxis Continue subcutaneous heparin every 12 hours Continue SCDs to bilateral lower extremities while in bed #Advance care planning Continue with physical therapy and pending final recs Disease education conducted, care plan discussed, diagnoses discussed, prognosis discussed, and patient acknowledges understanding with care plan Disposition Plan: Continue medical management History Interval history: No acute events over night. The patient denies fevers, chills, nausea, vomiting, abdominal pain, chest pain/pressure, shortness of breath, urinary symptoms, weakness, or confusion. Hospitalist Physical - Constitutional Vitals: Temp Pulse Resp BP Pulse Ox 98.2 F 87 15 120/76 94 02/01/21 08:10 02/01/21 10:00 02/01/21 10:47 02/01/21 09:30 02/01/21 10:47 General appearance: Present: no acute distress, well-nourished, obese - EENT Eyes: Present: PERRL, EOM intact ENT: hearing intact, clear oral mucosa, dentition normal - Neck Neck: Present: supple, normal ROM - Respiratory Respiratory effort: normal Respiratory: bilateral: rales (Bilateral lower lung), rhonchi - Cardiovascular Rhythm: regular Heart Sounds: Present: S1 & S2 - Extremities Extremities: no ischemia, pulses intact, pulses symmetrical Extremity abnormal: edema (2+ pitting edema to bilateral mid thighs) Peripheral Pulses: within normal limits - Abdominal General gastrointestinal: soft, non-tender, non-distended, other (Difficult to auscultate bowel sounds given body habitus) - Integumentary Integumentary: Present: clear, warm, dry - Psychiatric Psychiatric: appropriate mood/affect, intact judgment & insight, memory intact, cooperative - Neurologic Neurologic: CNII-XII intact, moves all extremities - Allied Health Allied health notes reviewed: nursing HEART Score - HEART Score History: Highly suspicious EKG: Non-specific Age: 45-65 Risk factors: > 3 risk factors or hx of atherosclerotic disease Troponin: Troponin T < 0.010 ng/mL (0.00-0.029) 01/29/21 17:20 - Critical Actions Critical Actions: 4-6 pts:12-16.6% risk of adverse cardiac event. Should be admitted Results - Labs CBC & Chem 7: 02/01/21 05:50 02/01/21 05:50 Labs: Laboratory Last Values WBC 9.0 K/mm3 (4.5-11.0) 02/01/21 05:50 RBC 4.88 M/mm3 (3.65-5.03) 02/01/21 05:50 Hgb 8.7 gm/dl (10.1-14.3) L 02/01/21 05:50 Hct 30.8 % (30.3-42.9) 02/01/21 05:50 MCV 63 fl (79-97) L 02/01/21 05:50 MCH 18 pg (28-32) L 02/01/21 05:50 MCHC 28 % (30-34) L 02/01/21 05:50 RDW 23.3 % (13.2-15.2) H 02/01/21 05:50 Plt Count 257 K/mm3 (140-440) 02/01/21 05:50 Lymph % (Auto) 4.9 % (13.4-35.0) L 02/01/21 05:50 [place] % (Auto) 10.5 % (0.0-7.3) H 02/01/21 05:50 Eos % (Auto) 1.7 % (0.0-4.3) 02/01/21 05:50 Baso % (Auto) 0.5 % (0.0-1.8) 02/01/21 05:50 Lymph # (Auto) 0.4 K/mm3 (1.2-5.4) L 02/01/21 05:50 [place] # (Auto) 0.9 K/mm3 (0.0-0.8) H 02/01/21 05:50 Eos # (Auto) 0.2 K/mm3 (0.0-0.4) 02/01/21 05:50 Baso # (Auto) 0.0 K/mm3 (0.0-0.1) 02/01/21 05:50 Seg Neutrophils % 82.4 % (40.0-70.0) H 02/01/21 05:50 Seg Neutrophils # 7.5 K/mm3 (1.8-7.7) 02/01/21 05:50 Sodium 139 mmol/L (137-145) 02/01/21 05:50 Potassium 3.6 mmol/L (3.6-5.0) 02/01/21 05:50 Chloride 105.5 mmol/L (98-107) 02/01/21 05:50 Carbon Dioxide 22 mmol/L (22-30) 02/01/21 05:50 Anion Gap 15 mmol/L 02/01/21 05:50 BUN 19 mg/dL (7-17) H 02/01/21 05:50 Creatinine 0.9 mg/dL (0.6-1.2) 02/01/21 05:50 Estimated GFR > 60 ml/min 02/01/21 05:50 BUN/Creatinine Ratio 21 % 02/01/21 05:50 Glucose 108 mg/dL (65-100) H 02/01/21 05:50 POC Glucose 107 mg/dL (70-105) H 02/01/21 11:47 Calcium 8.9 mg/dL (8.4-10.2) 02/01/21 05:50 Phosphorus 3.30 mg/dL (2.5-4.5) 02/01/21 05:50 Magnesium 2.00 mg/dL (1.7-2.3) 02/01/21 05:50 Troponin T < 0.010 ng/mL (0.00-0.029) 01/29/21 17:20 NT-Pro-B Natriuret Pep 5954 pg/mL (0-900) H 01/29/21 17:20 Fabian/IV: Voiding Method External Female Catheter Active Medications - Current Medications Current Medications: Generic Name Dose Route Start Last Admin Trade Name Freq PRN Reason Stop Dose Admin Acetaminophen 650 mg 01/29/21 18:37 Acetaminophen 325 Mg Tab PO Q6H PRN Pain MILD(1-3)/Fever >100.5/ALAS Albuterol 2.5 mg 01/29/21 18:37 01/30/21 09:19 Albuterol 2.5 Mg/3 Ml Nebu IH 2.5 mg Q3HRT PRN Administration Shortness Of Breath Albuterol/Ipratropium 1 ampul 01/30/21 20:00 02/01/21 08:48 Ipratropium/Albuterol Sulfate 3 Ml Ampul.Neb IH 1 ampul Q6HRT ANN MARIE Administration Amlodipine Besylate 10 mg 01/30/21 10:00 02/01/21 09:30 Amlodipine 10 Mg Tab PO 10 mg DAILY ANN MARIE Administration Aspirin 81 mg 01/30/21 10:00 02/01/21 09:28 Aspirin Ec 81 Mg Tab PO 81 mg QDAY ANN MARIE Administration Atorvastatin Calcium 40 mg 01/29/21 22:00 01/31/21 21:39 Atorvastatin 40 Mg Tab PO 40 mg QHS ANN MARIE Administration Budesonide 0.5 mg 01/29/21 20:00 02/01/21 08:48 Budesonide 0.5 Mg/2 Ml Nebu IH 0.5 mg Q12HRT ANN MARIE Administration Celecoxib 200 mg 01/30/21 10:00 02/01/21 09:28 Celecoxib 200 Mg Cap PO 200 mg DAILY ANN MARIE Administration Clonidine HCl 0.2 mg 01/29/21 22:00 02/01/21 09:29 Clonidine 0.2 Mg Tab PO 0.2 mg BID ANN MARIE Administration Clopidogrel Bisulfate 75 mg 01/30/21 10:00 02/01/21 09:28 Clopidogrel 75 Mg Tab PO 75 mg QDAY ANN MARIE Administration Dextrose 50 ml 01/29/21 19:15 Dextrose 50% In Water (25gm) 50 Ml Syringe IV Q30MIN PRN Hypoglycemia Protocol Famotidine 20 mg 01/29/21 22:00 02/01/21 09:28 Famotidine 20 Mg Tab PO 20 mg BID ANN MARIE Administration Ferrous Sulfate 325 mg 01/29/21 22:00 02/01/21 09:30 Ferrous Sulfate 325 Mg Tab PO Not Given BID ANN MARIE Fluoxetine HCl 20 mg 01/30/21 10:00 02/01/21 09:28 Fluoxetine 20 Mg Cap PO 20 mg QDAY ANN MARIE Administration Furosemide 40 mg 01/30/21 06:00 02/01/21 06:06 Furosemide 40 Mg/4 Ml Inj IV 40 mg BID@0600,1800 ANN MARIE Administration Heparin Sodium (Porcine) 5,000 unit 01/29/21 22:00 02/01/21 09:30 Heparin 5,000 Unit/1 Ml Vial SUB-Q 5,000 unit Q12HR ANN MARIE Administration Hydralazine HCl 100 mg 01/29/21 22:00 02/01/21 06:06 Hydralazine 100 Mg Tab PO 100 mg Q8HR ANN MARIE Administration Hydralazine HCl 10 mg 01/30/21 06:56 Hydralazine 20 Mg/1 Ml Inj IV Q4HR PRN systolic greater than 160 Hydromorphone HCl 0.5 mg 01/29/21 18:37 01/31/21 18:39 Hydromorphone 1 Mg/1 Ml Inj IV 0.5 mg Q24H PRN Administration Pain , Severe (7-10) Hydroxyzine Pamoate 25 mg 01/29/21 19:13 01/29/21 20:51 Hydroxyzine Pamoate 25 Mg Cap PO 25 mg BID PRN Administration Anxiety Insulin Human Lispro 0 unit 01/30/21 00:00 02/01/21 12:15 Insulin Lispro 100 Unit/Ml SUB-Q Not Given Q6HR [facility] Protocol Isosorbide Mononitrate 60 mg 01/30/21 10:00 02/01/21 09:29 Isosorbide Mononitrate Er 60 Mg Tab PO 60 mg QDAY ANN MARIE Administration Metoprolol Tartrate 50 mg 01/29/21 22:00 02/01/21 09:28 Metoprolol Tartrate 50 Mg Tab PO 50 mg BID ANN MARIE Administration Mirtazapine 7.5 mg 01/29/21 22:00 01/31/21 21:38 Mirtazapine 15 Mg Tab PO 7.5 mg QHS ANN MARIE Administration Oxycodone/Acetaminophen 1 tab 01/29/21 18:37 01/31/21 11:20 Oxycodone /Acetaminophen 5-325mg Tab PO 1 tab Q12H PRN Administration Pain, Moderate (4-6) Sodium Chloride 10 ml 01/29/21 22:00 02/01/21 09:30 Sodium Chloride 0.9% 10 Ml Flush Syringe IV 10 ml BID ANN MARIE Administration Sodium Chloride 10 ml 01/29/21 18:37 Sodium Chloride 0.9% 10 Ml Flush Syringe IV PRN PRN LINE FLUSH Valsartan 160 mg 02/01/21 10:00 02/01/21 09:30 Valsartan 160mg Tab PO 160 mg DAILY ANN MARIE Administration Venlafaxine HCl 25 mg 01/30/21 10:00 02/01/21 09:29 Venlafaxine 25 Mg Tab PO 25 mg DAILY ANN MARIE Administration
[2021-02-01] MEDS: HYDROmorphone 1 MG/1 ML INJ IV PRN (17:49)
[2021-02-01] MEDS: MIRTAZAPINE 15 MG TAB PO SCH (22:04)
[2021-02-02] MEDS: INSULIN LISPRO 100 UNIT/ML SUB-Q SCH ×4 (00:26→18:15)
[2021-02-02] MEDS: IPRATROPIUM/ALBUTEROL SULFATE 3 ML AMPUL.NEB IH SCH ×5 (01:12→22:05)
[2021-02-02] MEDS: BUDESONIDE 0.5 MG/2 ML NEBU IH SCH ×3 (01:15→22:05)
[2021-02-02] MEDS: oxyCODONE /ACETAMINOPHEN 5-325MG TAB PO PRN (05:52)
[2021-02-02] MEDS: hydrALAZINE 100 MG TAB PO SCH ×3 (05:52→21:42)
[2021-02-02] MEDS: FUROSEMIDE 40 MG/4 ML INJ IV SCH ×2 (05:52→18:15)
[2021-02-02 08:59] LABS: Basophils # (Auto) 0.1 K/mm3 (0.0-0.1); Basophils % (Auto) 1.2 % (0.0-1.8); Eosinophils # (Auto) 0.3 K/mm3 (0.0-0.4); Eosinophils % (Auto) 4.3 % (0.0-4.3); Lymphocytes # (Auto) 0.5 K/mm3 (1.2-5.4); Lymphocytes % (Auto) 6.6 % (13.4-35.0); Mean Corpuscular HGB Conc 30 % (30-34); Monocytes # (Auto) 0.8 K/mm3 (0.0-0.8); Monocytes % (Auto) 10.9 % (0.0-7.3); Platelet Count 238 K/mm3 (140-440)
[2021-02-02 09:08] LABS: BUN/Creatinine Ratio 25; Blood Urea Nitrogen 20 mg/dL (7-17); Calcium 8.5 mg/dL (8.4-10.2); Hemolysis Index 23
[2021-02-02] MEDS: VALSARTAN 160MG TAB PO SCH (09:22)
[2021-02-02] MEDS: ASPIRIN EC 81 MG TAB PO SCH (09:22)
[2021-02-02] MEDS: CLOPIDOGREL 75 MG TAB PO SCH (09:22)
[2021-02-02] MEDS: FLUoxetine 20 MG CAP PO SCH (09:22)
[2021-02-02] MEDS: cloNIDine 0.2 MG TAB PO SCH ×2 (09:22→21:42)
[2021-02-02] MEDS: amLODIPine 10 MG TAB PO SCH (09:23)
[2021-02-02] MEDS: FAMOTIDINE 20 MG TAB PO SCH ×2 (09:23→21:42)
[2021-02-02] MEDS: FERROUS SULFATE 325 MG TAB PO SCH ×2 (09:23→21:41)
[2021-02-02] MEDS: HEPARIN 5,000 UNIT/1 ML VIAL SUB-Q SCH ×2 (09:23→21:41)
[2021-02-02] MEDS: METOPROLOL TARTRATE 50 MG TAB PO SCH ×2 (09:23→21:42)
[2021-02-02] MEDS: VENLAFAXINE 25 MG TAB PO SCH (09:24)
[2021-02-02] MEDS: CELECOXIB 200 MG CAP PO SCH (09:24)
[2021-02-02 09:26] LABS: Hematocrit 31.4 % (30.3-42.9); Hemoglobin 9.3 gm/dl (10.1-14.3); Mean Corpuscular Volume 63 fl (79-97)
[2021-02-02 09:27] LABS: Red Cell Distribution Width 23.3 % (13.2-15.2)
--- NOTE | 2021-02-02 11:58 | Progress Note ---
Assessment and Plan HFpEF * Echocardiogram reviewed (09/15/2020): LVEF is 50 to 55%. LV SF is normal. Moderate LVH. RV SF is normal. Moderate pulmonary hypertension cannot be excluded due to poor regurgitant envelope * Telemetry reviewed: sinus 70s no events on monitor * BNP on admission 5954, BLE edema. Currently on Lasix 40mg IV BID * GDMT: asa, BB, LETTY/ARB, statin * EKG showed normal sinus rhythm with no acute ischemic changes Acute hypoxic respiratory failure COPD (on home O2) * Currently on NC * Management per primary team HTN * Continue metoprolol 50mg PO BID, valsartan 160mg PO QD, amlodipine 10mg QD, clonidine 0.2mg PO BID CAD s/p PCI 2018 * [facility] 06/20/2018 successful PCI with intravascular ultrasound of the ramus with DIANEYLS which was 100% culprit vessel with DIANELYS. Left main patent, LAD patent. RCA mmoderate to severe tortuosity with mid stent patent, circumflex pateent, ARIELA 50% with sintia 100% with successful PCI. Acute diastolic dysfunction. * Continue DAPT and Imdur 60mg QD Continue diuretics. Strict I/Os, BMP in AM, plan for possible d/c in AM Patient seen in conjunction with Dr. Hernandez who agrees with this plan of care. Will continue to follow - Patient Problems (1) Acute and chronic respiratory failure Current Visit: Yes Status: Acute Qualifiers: Respiratory failure complication: hypoxia Qualified Code(s): J96.21 - Acute and chronic respiratory failure with hypoxia (2) Acute exacerbation of CHF (congestive heart failure) Current Visit: Yes Status: Acute Qualifiers: Heart failure type: combined systolic and diastolic Qualified Code(s): I50.43 - Acute on chronic combined systolic (congestive) and diastolic (congestive) heart failure (3) Malignant hypertension Current Visit: Yes Status: Acute (4) Obesity hypoventilation syndrome Current Visit: Yes Status: Acute (5) Precordial chest pain Current Visit: Yes Status: Acute (6) Shortness of breath Current Visit: Yes Status: Acute (7) Acute and chronic respiratory failure Current Visit: No Status: Acute Qualifiers: Respiratory failure complication: hypoxia Qualified Code(s): J96.21 - Acute and chronic respiratory failure with hypoxia (8) Morbid obesity with body mass index of 40.0-49.9 Current Visit: No Status: Acute (9) CAD (coronary artery disease) Current Visit: No Status: Chronic Qualifiers: Coronary Disease-Associated Artery/Lesion type: [place] artery [place] vs. transplanted heart: [place] heart Associated angina: with stable angina Qualified Code(s): I25.118 - Atherosclerotic heart disease of [place] coronary artery with other forms of angina pectoris (10) H/O cardiomyopathy Current Visit: No Status: Chronic (11) Medical non-compliance Current Visit: No Status: Chronic Subjective Date of service: 02/02/21 Principal diagnosis: HFpEF, Hypertensive emergency, Acuteon chronic respiratory failure Interval history: Patient sitting in bed reports feeling better Sinus 70s on monitor Objective Vital Signs Temp Pulse Pulse Resp Resp BP Pulse Ox 02/02/21 09:23 71 132/68 02/02/21 09:22 71 132/68 02/02/21 09:07 98.5 F 71 20 132/68 90 02/02/21 08:25 70 02/02/21 05:35 98.4 F 66 18 162/93 93 02/02/21 03:00 15 94 02/02/21 01:15 74 18 02/02/21 01:08 97 02/01/21 23:44 98.4 F 18 133/87 97 02/01/21 22:13 87 127/75 02/01/21 22:04 87 127/75 02/01/21 22:00 55 L 02/01/21 19:34 98.2 F 66 18 103/63 92 02/01/21 15:33 98.3 F 127/75 - Physical Examination General: No Apparent Distress HEENT: Positive: PERRL Neck: Positive: trachea midline Cardiac: Positive: Reg Rate and Rhythm Lungs: Positive: Decreased Breath Sounds Neuro: Positive: Grossly Intact Abdomen: Positive: Soft, Active Bowel Sounds Skin: Negative: Rash, Suspicious Lesions, Ulceration Extremities: Present: upper extr. pulses, lower extr. pulses, +2 Edema - Labs and Meds CBC 02/02/21 Range/Units 08:30 WBC 7.1 (4.5-11.0) K/mm3 RBC 5.00 (3.65-5.03) M/mm3 Hgb 9.3 L (10.1-14.3) gm/dl Hct 31.4 (30.3-42.9) % Plt Count 238 (140-440) K/mm3 Lymph # (Auto) 0.5 L (1.2-5.4) K/mm3 [place] # (Auto) 0.8 (0.0-0.8) K/mm3 Eos # (Auto) 0.3 (0.0-0.4) K/mm3 Baso # (Auto) 0.1 (0.0-0.1) K/mm3 Comprehensive Metabolic Panel 02/02/21 Range/Units 08:30 Sodium 137 (137-145) mmol/L Potassium 3.8 (3.6-5.0) mmol/L Chloride 102.6 (98-107) mmol/L Carbon Dioxide 22 (22-30) mmol/L BUN 20 H (7-17) mg/dL Creatinine 0.8 (0.6-1.2) mg/dL Glucose 125 H (65-100) mg/dL Calcium 8.5 (8.4-10.2) mg/dL - Imaging and Cardiology EKG: report reviewed Echo: report reviewed ((09/15/2020): LVEF is 50 to 55%. LV SF is normal. Moderate LVH. RV SF is normal. Moderate pulmonary hypertension cannot be excluded due to poor regurgitant envelope) Cardiac cath: report reviewed ([facility] 06/20/2018 successful PCI with intravascular ultrasound of the ramus with DIANELYS which was 100% culprit vessel with DIANELYS. Left main patent, LAD patent. RCA mmoderate to severe tortuosity with mid stent patent, circumflex pateent, ARIELA 50% with sintia 100% with successful PCI. Acute diastolic dysfunction) - Telemetry EKG Rhythm: Sinus Rhythm - EKG Sinus rhythms and dysrhythmias: sinus rhythm QRS axis and voltage: right axis deviation
--- NOTE | 2021-02-02 13:55 | Progress Note ---
Assessment and Plan Assessment and plan: The patient is a 60-year-old female with past medical history of CHF, hypertension, ADAN, CAD status post stent x2 (currently on DAPT), tobacco dependence, prior [place], morbid obesity, COPD, obesity hypoventilation syndrome, chronic respiratory failure (on 3.5 L of O2 at home) who presented with acute on chronic heart failure exacerbation and was found to be in hypertensive emergency requiring nitroglycerin gtt. #Acute exacerbation of congestive heart failure-improved Continue CHF exacerbation protocol: Strict I/O, monitor urine output every shift, daily weights, afterload reduction, low-sodium diet, and fluid restriction of approximately 1.5 mL/day Currently on 3 to 4 L of supplemental oxygen (baseline O2 is 3 to 4 L) Pro BNP on admission; 5954. Continue diuresis with IV Lasix 40 mg twice daily Cardiology consulted; appreciate recs 09/15/2020 echocardiogram: EF 50 to 55%. Left moderate ventricular hypertrophy. Trace to mild tricuspid regurgitation. Patient counseled on medical compliance and strong need to follow-up with cardiology in outpatient. #Malignant hypertension-resolved Nitroglycerin gtt. initiated in the ED; discontinued on 01/30 Continue with home antihypertensive therapy Hydralazine as needed for SBP greater than 160 Continue to monitor blood pressure every shift #Obesity hypoventilation syndrome Continue balanced diet and increase physical activity at discharge Outpatient pulmonary follow-up for sleep study, outpatient bariatric surgery follow-up #Acute on chronic hypoxic respiratory failure-resolved Currently requiring 4 L nasal cannula of supplemental oxygen Continue to wean O2 as tolerated Continue nebulizer therapy #DVT prophylaxis Continue subcutaneous heparin every 12 hours Continue SCDs to bilateral lower extremities while in bed #Advance care planning Continue with physical therapy and pending final recs Disease education conducted, care plan discussed, diagnoses discussed, prognosis discussed, and patient acknowledges understanding with care plan Disposition Plan: Continue medical management. Pending possible discharge home tomorrow. History Interval history: No acute events over night. The patient denies fevers, chills, nausea, vomiting, abdominal pain, chest pain/pressure, shortness of breath, urinary symptoms, weakness, or confusion. Hospitalist Physical - Constitutional Vitals: Temp Pulse Resp BP Pulse Ox 97.9 F 53 L 19 121/56 90 02/02/21 11:36 02/02/21 11:36 02/02/21 11:36 02/02/21 11:36 02/02/21 11:36 General appearance: Present: no acute distress, well-nourished, obese - EENT Eyes: Present: PERRL, EOM intact ENT: hearing intact, clear oral mucosa, dentition normal - Neck Neck: Present: supple, normal ROM - Respiratory Respiratory effort: normal Respiratory: bilateral: rales, negative: CTA, diminished, rhonchi, wheezing, other - Cardiovascular Rhythm: regular Heart Sounds: Present: S1 & S2 - Extremities Extremities: no ischemia, pulses intact, pulses symmetrical Extremity abnormal: edema (1+ pitting edema to bilateral lower knees) Peripheral Pulses: within normal limits - Abdominal General gastrointestinal: soft, non-tender, non-distended, normal bowel sounds - Integumentary Integumentary: Present: clear, warm, dry - Psychiatric Psychiatric: appropriate mood/affect, intact judgment & insight, memory intact, cooperative - Neurologic Neurologic: CNII-XII intact, moves all extremities - Allied Health Allied health notes reviewed: nursing HEART Score - HEART Score EKG: Non-specific Age: 45-65 Risk factors: > 3 risk factors or hx of atherosclerotic disease Troponin: Troponin T < 0.010 ng/mL (0.00-0.029) 01/29/21 17:20 - Critical Actions Critical Actions: 4-6 pts:12-16.6% risk of adverse cardiac event. Should be admitted Results - Labs CBC & Chem 7: 02/02/21 08:30 02/02/21 08:30 Labs: Laboratory Last Values WBC 7.1 K/mm3 (4.5-11.0) 02/02/21 08:30 RBC 5.00 M/mm3 (3.65-5.03) 02/02/21 08:30 Hgb 9.3 gm/dl (10.1-14.3) L 02/02/21 08:30 Hct 31.4 % (30.3-42.9) 02/02/21 08:30 MCV 63 fl (79-97) L 02/02/21 08:30 MCH 19 pg (28-32) L 02/02/21 08:30 MCHC 30 % (30-34) 02/02/21 08:30 RDW 23.3 % (13.2-15.2) H 02/02/21 08:30 Plt Count 238 K/mm3 (140-440) 02/02/21 08:30 Lymph % (Auto) 6.6 % (13.4-35.0) L 02/02/21 08:30 Heard % (Auto) 10.9 % (0.0-7.3) H 02/02/21 08:30 Eos % (Auto) 4.3 % (0.0-4.3) 02/02/21 08:30 Baso % (Auto) 1.2 % (0.0-1.8) 02/02/21 08:30 Lymph # (Auto) 0.5 K/mm3 (1.2-5.4) L 02/02/21 08:30 Heard # (Auto) 0.8 K/mm3 (0.0-0.8) 02/02/21 08:30 Eos # (Auto) 0.3 K/mm3 (0.0-0.4) 02/02/21 08:30 Baso # (Auto) 0.1 K/mm3 (0.0-0.1) 02/02/21 08:30 Seg Neutrophils % 77.0 % (40.0-70.0) H 02/02/21 08:30 Seg Neutrophils # 5.4 K/mm3 (1.8-7.7) 02/02/21 08:30 Sodium 137 mmol/L (137-145) 02/02/21 08:30 Potassium 3.8 mmol/L (3.6-5.0) 02/02/21 08:30 Chloride 102.6 mmol/L (98-107) 02/02/21 08:30 Carbon Dioxide 22 mmol/L (22-30) 02/02/21 08:30 Anion Gap 16 mmol/L 02/02/21 08:30 BUN 20 mg/dL (7-17) H 02/02/21 08:30 Creatinine 0.8 mg/dL (0.6-1.2) 02/02/21 08:30 Estimated GFR > 60 ml/min 02/02/21 08:30 BUN/Creatinine Ratio 25 % 02/02/21 08:30 Glucose 125 mg/dL (65-100) H 02/02/21 08:30 POC Glucose 111 mg/dL (70-105) H 02/02/21 11:35 Calcium 8.5 mg/dL (8.4-10.2) 02/02/21 08:30 Phosphorus 3.20 mg/dL (2.5-4.5) 02/02/21 08:30 Magnesium 2.00 mg/dL (1.7-2.3) 02/02/21 08:30 Troponin T < 0.010 ng/mL (0.00-0.029) 01/29/21 17:20 NT-Pro-B Natriuret Pep 5954 pg/mL (0-900) H 01/29/21 17:20 Fabian/IV: Voiding Method External Female Catheter Active Medications - Current Medications Current Medications: Generic Name Dose Route Start Last Admin Trade Name Freq PRN Reason Stop Dose Admin Acetaminophen 650 mg 01/29/21 18:37 Acetaminophen 325 Mg Tab PO Q6H PRN Pain MILD(1-3)/Fever >100.5/ALAS Albuterol 2.5 mg 01/29/21 18:37 01/30/21 09:19 Albuterol 2.5 Mg/3 Ml Nebu IH 2.5 mg Q3HRT PRN Administration Shortness Of Breath Albuterol/Ipratropium 1 ampul 01/30/21 20:00 02/02/21 09:33 Ipratropium/Albuterol Sulfate 3 Ml Ampul.Neb IH 1 ampul Q6HRT ANN MARIE Administration Amlodipine Besylate 10 mg 01/30/21 10:00 02/02/21 09:23 Amlodipine 10 Mg Tab PO 10 mg DAILY ANN MARIE Administration Aspirin 81 mg 01/30/21 10:00 02/02/21 09:22 Aspirin Ec 81 Mg Tab PO 81 mg QDAY ANN MARIE Administration Atorvastatin Calcium 40 mg 01/29/21 22:00 02/01/21 22:04 Atorvastatin 40 Mg Tab PO 40 mg QHS ANN MARIE Administration Budesonide 0.5 mg 01/29/21 20:00 02/02/21 09:34 Budesonide 0.5 Mg/2 Ml Nebu IH 0.5 mg Q12HRT ANN MARIE Administration Celecoxib 200 mg 01/30/21 10:00 02/02/21 09:24 Celecoxib 200 Mg Cap PO 200 mg DAILY ANN MARIE Administration Clonidine HCl 0.2 mg 01/29/21 22:00 02/02/21 09:22 Clonidine 0.2 Mg Tab PO 0.2 mg BID ANN MARIE Administration Clopidogrel Bisulfate 75 mg 01/30/21 10:00 02/02/21 09:22 Clopidogrel 75 Mg Tab PO 75 mg QDAY ANN MARIE Administration Dextrose 50 ml 01/29/21 19:15 Dextrose 50% In Water (25gm) 50 Ml Syringe IV Q30MIN PRN Hypoglycemia Protocol Famotidine 20 mg 01/29/21 22:00 02/02/21 09:23 Famotidine 20 Mg Tab PO 20 mg BID ANN MARIE Administration Ferrous Sulfate 325 mg 01/29/21 22:00 02/02/21 09:23 Ferrous Sulfate 325 Mg Tab PO 325 mg BID ANN MARIE Administration Fluoxetine HCl 20 mg 01/30/21 10:00 02/02/21 09:22 Fluoxetine 20 Mg Cap PO 20 mg QDAY ANN MARIE Administration Furosemide 40 mg 01/30/21 06:00 02/02/21 05:52 Furosemide 40 Mg/4 Ml Inj IV 40 mg BID@0600,1800 ANN MARIE Administration Heparin Sodium (Porcine) 5,000 unit 01/29/21 22:00 02/02/21 09:23 Heparin 5,000 Unit/1 Ml Vial SUB-Q 5,000 unit Q12HR ANN MARIE Administration Hydralazine HCl 100 mg 01/29/21 22:00 02/02/21 05:52 Hydralazine 100 Mg Tab PO 100 mg Q8HR ANN MARIE Administration Hydralazine HCl 10 mg 01/30/21 06:56 Hydralazine 20 Mg/1 Ml Inj IV Q4HR PRN systolic greater than 160 Hydromorphone HCl 0.5 mg 01/29/21 18:37 02/01/21 17:49 Hydromorphone 1 Mg/1 Ml Inj IV 0.5 mg Q24H PRN Administration Pain , Severe (7-10) Hydroxyzine Pamoate 25 mg 01/29/21 19:13 01/29/21 20:51 Hydroxyzine Pamoate 25 Mg Cap PO 25 mg BID PRN Administration Anxiety Insulin Human Lispro 0 unit 01/30/21 00:00 02/02/21 11:48 Insulin Lispro 100 Unit/Ml SUB-Q Not Given Q6HR [facility] Protocol Isosorbide Mononitrate 60 mg 01/30/21 10:00 02/02/21 09:23 Isosorbide Mononitrate Er 60 Mg Tab PO 60 mg QDAY ANN MARIE Administration Metoprolol Tartrate 50 mg 01/29/21 22:00 02/02/21 09:23 Metoprolol Tartrate 50 Mg Tab PO 50 mg BID ANN MARIE Administration Mirtazapine 7.5 mg 01/29/21 22:00 02/01/21 22:04 Mirtazapine 15 Mg Tab PO 7.5 mg QHS ANN MARIE Administration Oxycodone/Acetaminophen 1 tab 01/29/21 18:37 02/02/21 05:52 Oxycodone /Acetaminophen 5-325mg Tab PO 1 tab Q12H PRN Administration Pain, Moderate (4-6) Sodium Chloride 10 ml 01/29/21 22:00 02/02/21 09:25 Sodium Chloride 0.9% 10 Ml Flush Syringe IV 10 ml BID ANN MARIE Administration Sodium Chloride 10 ml 01/29/21 18:37 Sodium Chloride 0.9% 10 Ml Flush Syringe IV PRN PRN LINE FLUSH Valsartan 160 mg 02/01/21 10:00 02/02/21 09:22 Valsartan 160mg Tab PO 160 mg DAILY ANN MARIE Administration Venlafaxine HCl 25 mg 01/30/21 10:00 02/02/21 09:24 Venlafaxine 25 Mg Tab PO 25 mg DAILY ANN MARIE Administration
[2021-02-02] MEDS: HYDROmorphone 1 MG/1 ML INJ IV PRN (19:57)
[2021-02-02] MEDS: MIRTAZAPINE 15 MG TAB PO SCH (21:41)
[2021-02-03] MEDS: INSULIN LISPRO 100 UNIT/ML SUB-Q SCH ×4 (03:17→17:24)
[2021-02-03] MEDS: FUROSEMIDE 40 MG/4 ML INJ IV SCH ×2 (05:05→17:24)
[2021-02-03] MEDS: hydrALAZINE 100 MG TAB PO SCH ×3 (05:05→22:04)
--- NOTE | 2021-02-03 08:41 | Electrocardiograph Report ---
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
[2021-02-03] MEDS: CELECOXIB 200 MG CAP PO SCH (09:14)
[2021-02-03] MEDS: FERROUS SULFATE 325 MG TAB PO SCH ×2 (09:14→22:04)
[2021-02-03] MEDS: VENLAFAXINE 25 MG TAB PO SCH (09:14)
[2021-02-03] MEDS: ASPIRIN EC 81 MG TAB PO SCH (09:15)
[2021-02-03] MEDS: amLODIPine 10 MG TAB PO SCH (09:15)
[2021-02-03] MEDS: HEPARIN 5,000 UNIT/1 ML VIAL SUB-Q SCH ×2 (09:15→22:04)
[2021-02-03] MEDS: METOPROLOL TARTRATE 50 MG TAB PO SCH ×2 (09:16→22:05)
[2021-02-03] MEDS: CLOPIDOGREL 75 MG TAB PO SCH (09:16)
[2021-02-03] MEDS: cloNIDine 0.2 MG TAB PO SCH ×2 (09:16→22:04)
[2021-02-03] MEDS: FAMOTIDINE 20 MG TAB PO SCH ×2 (09:16→22:04)
[2021-02-03] MEDS: VALSARTAN 160MG TAB PO SCH (09:16)
[2021-02-03] MEDS: FLUoxetine 20 MG CAP PO SCH (09:17)
[2021-02-03] MEDS: BUDESONIDE 0.5 MG/2 ML NEBU IH SCH ×2 (09:41→19:05)
[2021-02-03] MEDS: IPRATROPIUM/ALBUTEROL SULFATE 3 ML AMPUL.NEB IH SCH ×3 (09:42→19:05)
[2021-02-03 10:56] LABS: Mean Corpuscular HGB Conc 30 % (30-34); Platelet Count 252 K/mm3 (140-440); Red Blood Count 5.03 M/mm3 (3.65-5.03)
[2021-02-03 11:04] LABS: Blood Urea Nitrogen 19 mg/dL (7-17); Calcium 8.9 mg/dL (8.4-10.2); Hemolysis Index 1
[2021-02-03 11:05] LABS: BUN/Creatinine Ratio 27
--- NOTE | 2021-02-03 12:12 | Progress Note ---
Assessment and Plan Assessment and plan: The patient is a 60-year-old female with past medical history of CHF, hypertension, ADAN, CAD status post stent x2 (currently on DAPT), tobacco dependence, prior [place], morbid obesity, COPD, obesity hypoventilation syndrome, chronic respiratory failure (on 3.5 L of O2 at home) who presented with acute on chronic heart failure exacerbation and was found to be in hypertensive emergency requiring nitroglycerin gtt. #Acute exacerbation of congestive heart failure-resolved Continue CHF exacerbation protocol: Strict I/O, monitor urine output every shift, daily weights, afterload reduction, low-sodium diet, and fluid restriction of approximately 1.5 mL/day Currently on 3 to 4 L of supplemental oxygen (baseline O2 is 3 to 4 L) Pro BNP on admission; 5954. Continue diuresis with IV Lasix 40 mg twice daily Cardiology consulted; appreciate recs 09/15/2020 echocardiogram: EF 50 to 55%. Left moderate ventricular hypertrophy. Trace to mild tricuspid regurgitation. Patient counseled on medical compliance and strong need to follow-up with cardiology in outpatient. #Malignant hypertension-resolved Nitroglycerin gtt. initiated in the ED; discontinued on 01/30 Continue with home antihypertensive therapy Hydralazine as needed for SBP greater than 160 Continue to monitor blood pressure every shift #Obesity hypoventilation syndrome-state Continue balanced diet and increase physical activity at discharge Outpatient pulmonary follow-up for sleep study, outpatient bariatric surgery follow-up #Acute on chronic hypoxic respiratory failure-resolved Currently requiring 4 L nasal cannula of supplemental oxygen Continue to wean O2 as tolerated Continue nebulizer therapy #DVT prophylaxis Continue subcutaneous heparin every 12 hours Continue SCDs to bilateral lower extremities while in bed #Advance care planning Continue with physical therapy and pending final recs Disease education conducted, care plan discussed, diagnoses discussed, prognosis discussed, and patient acknowledges understanding with care plan Counseled patient about medication compliance and utilizing resources to ensure medication can be purchased. Patient expressed understanding and is adamant about compliance to medications and clinic appointments. Disposition Plan: Pending discharge tomorrow morning History Interval history: No acute events overnight. Hospitalist Physical - Constitutional Vitals: Temp Pulse Resp BP Pulse Ox 98.9 F 76 19 149/82 97 02/03/21 08:27 02/03/21 09:43 02/03/21 09:43 02/03/21 09:16 02/03/21 09:42 General appearance: Present: no acute distress, well-nourished, obese - EENT Eyes: Present: PERRL, EOM intact ENT: hearing intact, clear oral mucosa, dentition normal - Neck Neck: Present: supple, normal ROM - Respiratory Respiratory effort: normal Respiratory: bilateral: rales (Bilateral lower base) - Cardiovascular Rhythm: regular Heart Sounds: Present: S1 & S2 - Extremities Extremities: no ischemia, pulses intact, pulses symmetrical, normal temperature, normal color Extremity abnormal: edema (1+ pitting edema to bilateral knees) - Abdominal General gastrointestinal: soft, non-tender, non-distended, normal bowel sounds - Integumentary Integumentary: Present: clear, warm, dry - Psychiatric Psychiatric: appropriate mood/affect, intact judgment & insight, memory intact - Neurologic Neurologic: CNII-XII intact, moves all extremities - Allied Health Allied health notes reviewed: nursing HEART Score - HEART Score History: Moderately suspicious EKG: Non-specific Age: 45-65 Risk factors: > 3 risk factors or hx of atherosclerotic disease Troponin: Troponin T < 0.010 ng/mL (0.00-0.029) 01/29/21 17:20 - Critical Actions Critical Actions: 4-6 pts:12-16.6% risk of adverse cardiac event. Should be admitted Results - Labs CBC & Chem 7: 02/02/21 08:30 02/03/21 10:11 Labs: Laboratory Last Values WBC 7.1 K/mm3 (4.5-11.0) 02/02/21 08:30 RBC 5.00 M/mm3 (3.65-5.03) 02/02/21 08:30 Hgb 9.3 gm/dl (10.1-14.3) L 02/02/21 08:30 Hct 31.4 % (30.3-42.9) 02/02/21 08:30 MCV 63 fl (79-97) L 02/02/21 08:30 MCH 19 pg (28-32) L 02/02/21 08:30 MCHC 30 % (30-34) 02/02/21 08:30 RDW 23.3 % (13.2-15.2) H 02/02/21 08:30 Plt Count 238 K/mm3 (140-440) 02/02/21 08:30 Lymph % (Auto) 6.6 % (13.4-35.0) L 02/02/21 08:30 [place] % (Auto) 10.9 % (0.0-7.3) H 02/02/21 08:30 Eos % (Auto) 4.3 % (0.0-4.3) 02/02/21 08:30 Baso % (Auto) 1.2 % (0.0-1.8) 02/02/21 08:30 Lymph # (Auto) 0.5 K/mm3 (1.2-5.4) L 02/02/21 08:30 [place] # (Auto) 0.8 K/mm3 (0.0-0.8) 02/02/21 08:30 Eos # (Auto) 0.3 K/mm3 (0.0-0.4) 02/02/21 08:30 Baso # (Auto) 0.1 K/mm3 (0.0-0.1) 02/02/21 08:30 Seg Neutrophils % 77.0 % (40.0-70.0) H 02/02/21 08:30 Seg Neutrophils # 5.4 K/mm3 (1.8-7.7) 02/02/21 08:30 Sodium 139 mmol/L (137-145) 02/03/21 10:11 Potassium 3.7 mmol/L (3.6-5.0) 02/03/21 10:11 Chloride 102.9 mmol/L (98-107) 02/03/21 10:11 Carbon Dioxide 25 mmol/L (22-30) 02/03/21 10:11 Anion Gap 15 mmol/L 02/03/21 10:11 BUN 19 mg/dL (7-17) H 02/03/21 10:11 Creatinine 0.7 mg/dL (0.6-1.2) 02/03/21 10:11 Estimated GFR > 60 ml/min 02/03/21 10:11 BUN/Creatinine Ratio 27 % 02/03/21 10:11 Glucose 100 mg/dL (65-100) 02/03/21 10:11 POC Glucose 87 mg/dL (70-105) 02/03/21 08:22 Calcium 8.9 mg/dL (8.4-10.2) 02/03/21 10:11 Phosphorus 3.10 mg/dL (2.5-4.5) 02/03/21 10:11 Magnesium 1.90 mg/dL (1.7-2.3) 02/03/21 10:11 Troponin T < 0.010 ng/mL (0.00-0.029) 01/29/21 17:20 NT-Pro-B Natriuret Pep 5954 pg/mL (0-900) H 01/29/21 17:20 Fabian/IV: Voiding Method External Female Catheter Active Medications - Current Medications Current Medications: Generic Name Dose Route Start Last Admin Trade Name Freq PRN Reason Stop Dose Admin Acetaminophen 650 mg 01/29/21 18:37 Acetaminophen 325 Mg Tab PO Q6H PRN Pain MILD(1-3)/Fever >100.5/ALAS Albuterol 2.5 mg 01/29/21 18:37 01/30/21 09:19 Albuterol 2.5 Mg/3 Ml Nebu IH 2.5 mg Q3HRT PRN Administration Shortness Of Breath Albuterol/Ipratropium 1 ampul 02/03/21 08:00 02/03/21 09:42 Ipratropium/Albuterol Sulfate 3 Ml Ampul.Neb IH 1 ampul TIDRT ANN MARIE Administration Amlodipine Besylate 10 mg 01/30/21 10:00 02/03/21 09:15 Amlodipine 10 Mg Tab PO 10 mg DAILY ANN MARIE Administration Aspirin 81 mg 01/30/21 10:00 02/03/21 09:15 Aspirin Ec 81 Mg Tab PO 81 mg QDAY ANN MARIE Administration Atorvastatin Calcium 40 mg 01/29/21 22:00 02/02/21 21:42 Atorvastatin 40 Mg Tab PO 40 mg QHS ANN MARIE Administration Budesonide 0.5 mg 01/29/21 20:00 02/03/21 09:41 Budesonide 0.5 Mg/2 Ml Nebu IH 0.5 mg Q12HRT ANN MARIE Administration Celecoxib 200 mg 01/30/21 10:00 02/03/21 09:14 Celecoxib 200 Mg Cap PO 200 mg DAILY ANN MARIE Administration Clonidine HCl 0.2 mg 01/29/21 22:00 02/03/21 09:16 Clonidine 0.2 Mg Tab PO 0.2 mg BID ANN MARIE Administration Clopidogrel Bisulfate 75 mg 01/30/21 10:00 02/03/21 09:16 Clopidogrel 75 Mg Tab PO 75 mg QDAY ANN MARIE Administration Dextrose 50 ml 01/29/21 19:15 Dextrose 50% In Water (25gm) 50 Ml Syringe IV Q30MIN PRN Hypoglycemia Protocol Famotidine 20 mg 01/29/21 22:00 02/03/21 09:16 Famotidine 20 Mg Tab PO 20 mg BID ANN MARIE Administration Ferrous Sulfate 325 mg 01/29/21 22:00 02/03/21 09:14 Ferrous Sulfate 325 Mg Tab PO 325 mg BID ANN MARIE Administration Fluoxetine HCl 20 mg 01/30/21 10:00 02/03/21 09:17 Fluoxetine 20 Mg Cap PO 20 mg QDAY ANN MARIE Administration Furosemide 40 mg 01/30/21 06:00 02/03/21 05:05 Furosemide 40 Mg/4 Ml Inj IV 40 mg BID@0600,1800 ANN MARIE Administration Heparin Sodium (Porcine) 5,000 unit 01/29/21 22:00 02/03/21 09:15 Heparin 5,000 Unit/1 Ml Vial SUB-Q 5,000 unit Q12HR ANN MARIE Administration Hydralazine HCl 100 mg 01/29/21 22:00 02/03/21 05:05 Hydralazine 100 Mg Tab PO 100 mg Q8HR ANN MARIE Administration Hydralazine HCl 10 mg 01/30/21 06:56 Hydralazine 20 Mg/1 Ml Inj IV Q4HR PRN systolic greater than 160 Hydromorphone HCl 0.5 mg 01/29/21 18:37 02/02/21 19:57 Hydromorphone 1 Mg/1 Ml Inj IV 0.5 mg Q24H PRN Administration Pain , Severe (7-10) Hydroxyzine Pamoate 25 mg 01/29/21 19:13 01/29/21 20:51 Hydroxyzine Pamoate 25 Mg Cap PO 25 mg BID PRN Administration Anxiety Insulin Human Lispro 0 unit 01/30/21 00:00 02/03/21 11:15 Insulin Lispro 100 Unit/Ml SUB-Q Not Given Q6HR [facility] Protocol Isosorbide Mononitrate 60 mg 01/30/21 10:00 02/03/21 09:15 Isosorbide Mononitrate Er 60 Mg Tab PO 60 mg QDAY ANN MARIE Administration Metoprolol Tartrate 50 mg 01/29/21 22:00 02/03/21 09:16 Metoprolol Tartrate 50 Mg Tab PO 50 mg BID ANN MARIE Administration Mirtazapine 7.5 mg 01/29/21 22:00 02/02/21 21:41 Mirtazapine 15 Mg Tab PO 7.5 mg QHS ANN MARIE Administration Oxycodone/Acetaminophen 1 tab 01/29/21 18:37 02/02/21 05:52 Oxycodone /Acetaminophen 5-325mg Tab PO 1 tab Q12H PRN Administration Pain, Moderate (4-6) Sodium Chloride 10 ml 01/29/21 22:00 02/03/21 09:20 Sodium Chloride 0.9% 10 Ml Flush Syringe IV 10 ml BID ANN MARIE Administration Sodium Chloride 10 ml 01/29/21 18:37 Sodium Chloride 0.9% 10 Ml Flush Syringe IV PRN PRN LINE FLUSH Valsartan 160 mg 02/01/21 10:00 02/03/21 09:16 Valsartan 160mg Tab PO 160 mg DAILY ANN MARIE Administration Venlafaxine HCl 25 mg 01/30/21 10:00 02/03/21 09:14 Venlafaxine 25 Mg Tab PO 25 mg DAILY ANN MARIE Administration
[2021-02-03 12:17] LABS: Hematocrit 31.4 % (30.3-42.9); Hemoglobin 9.3 gm/dl (10.1-14.3); Mean Corpuscular Volume 62 fl (79-97); Red Cell Distribution Width 23.3 % (13.2-15.2)
--- NOTE | 2021-02-03 13:14 | Progress Note ---
Assessment and Plan HFpEF * Echocardiogram reviewed (09/15/2020): LVEF is 50 to 55%. LV SF is normal. Moderate LVH. RV SF is normal. Moderate pulmonary hypertension cannot be excluded due to poor regurgitant envelope * Telemetry reviewed: sinus 70s no events on monitor * BNP on admission 5954, BLE edema. Currently on Lasix 40mg IV BID * GDMT: asa, BB, LETTY/ARB, statin * EKG showed normal sinus rhythm with no acute ischemic changes Acute hypoxic respiratory failure COPD (on home O2) * Currently on NC * Management per primary team HTN * Continue metoprolol 50mg PO BID, valsartan 160mg PO QD, amlodipine 10mg QD, clonidine 0.2mg PO BID CAD s/p PCI 2018 * [facility] 06/20/2018 successful PCI with intravascular ultrasound of the ramus with DIANELYS which was 100% culprit vessel with DIANELYS. Left main patent, LAD patent. RCA mmoderate to severe tortuosity with mid stent patent, circumflex pateent, ARIELA 50% with sintia 100% with successful PCI. Acute diastolic dysfunction. * Continue DAPT and Imdur 60mg QD Plan: Continue diuretics. Strict I/Os. Plan for d/c in AM Patient should be discharged home on Lasix 40mg PO BID. Patient has follow up appointment with Dr. Hernandez, [facility], on 02/27/2021 at 9:30 in our [place] location. Patient seen in conjunction with Dr. Hernandez who agrees with this plan of care. Will continue to follow - Patient Problems (1) Acute and chronic respiratory failure Current Visit: Yes Status: Acute Qualifiers: Respiratory failure complication: hypoxia Qualified Code(s): J96.21 - Acute and chronic respiratory failure with hypoxia (2) Acute exacerbation of CHF (congestive heart failure) Current Visit: Yes Status: Acute Qualifiers: Heart failure type: combined systolic and diastolic Qualified Code(s): I50.43 - Acute on chronic combined systolic (congestive) and diastolic (congestive) heart failure (3) Malignant hypertension Current Visit: Yes Status: Acute (4) Obesity hypoventilation syndrome Current Visit: Yes Status: Acute (5) Precordial chest pain Current Visit: Yes Status: Acute (6) Shortness of breath Current Visit: Yes Status: Acute (7) Acute and chronic respiratory failure Current Visit: No Status: Acute Qualifiers: Respiratory failure complication: hypoxia Qualified Code(s): J96.21 - Acute and chronic respiratory failure with hypoxia (8) Morbid obesity with body mass index of 40.0-49.9 Current Visit: No Status: Acute (9) CAD (coronary artery disease) Current Visit: No Status: Chronic Qualifiers: Coronary Disease-Associated Artery/Lesion type: saxman artery [place] vs. transplanted heart: saxman heart Associated angina: with stable angina Qualified Code(s): I25.118 - Atherosclerotic heart disease of [place] coronary artery with other forms of angina pectoris (10) H/O cardiomyopathy Current Visit: No Status: Chronic (11) Medical non-compliance Current Visit: No Status: Chronic Subjective Date of service: 02/03/21 Principal diagnosis: HFpEF, Hypertensive emergency, Acuteon chronic respiratory failure Interval history: Patient sitting in bed with no cardiac complaints Sinus 70s with no events on monitor Objective Last Vital Signs Temp 98.9 F 02/03/21 08:27 Pulse 76 02/03/21 09:43 Resp 19 02/03/21 09:43 BP 149/82 02/03/21 09:16 Pulse Ox 97 02/03/21 09:42 - Physical Examination General: No Apparent Distress HEENT: Positive: PERRL Neck: Positive: trachea midline Cardiac: Positive: Reg Rate and Rhythm Lungs: Positive: Decreased Breath Sounds Neuro: Positive: Grossly Intact Abdomen: Positive: Soft, Active Bowel Sounds Skin: Negative: Rash, Suspicious Lesions, Ulceration Extremities: Present: upper extr. pulses, lower extr. pulses, +2 Edema - Labs and Meds CBC 02/03/21 Range/Units 10:11 WBC 5.3 (4.5-11.0) K/mm3 RBC 5.03 (3.65-5.03) M/mm3 Hgb 9.3 L (10.1-14.3) gm/dl Hct 31.4 (30.3-42.9) % Plt Count 252 (140-440) K/mm3 Comprehensive Metabolic Panel 02/03/21 Range/Units 10:11 Sodium 139 (137-145) mmol/L Potassium 3.7 (3.6-5.0) mmol/L Chloride 102.9 (98-107) mmol/L Carbon Dioxide 25 (22-30) mmol/L BUN 19 H (7-17) mg/dL Creatinine 0.7 (0.6-1.2) mg/dL Glucose 100 (65-100) mg/dL Calcium 8.9 (8.4-10.2) mg/dL - Imaging and Cardiology EKG: report reviewed Echo: report reviewed ((09/15/2020): LVEF is 50 to 55%. LV SF is normal. Moderat e LVH. RV SF is normal. Moderate pulmonary hypertension cannot be excluded due to poor regurgitant envelope) Cardiac cath: report reviewed ([facility] 06/20/2018 successful PCI with intravascular ultrasound of the ramus with DIANELYS which was 100% culprit vessel with DIANELYS. Left main patent, LAD patent. RCA mmoderate to severe tortuosity with mid stent patent, circumflex pateent, ARIELA 50% with sintia 100% with successful PCI. Acute diastolic dysfunction) - Telemetry EKG Rhythm: Sinus Rhythm - EKG Sinus rhythms and dysrhythmias: sinus rhythm QRS axis and voltage: right axis deviation
[2021-02-03] MEDS: oxyCODONE /ACETAMINOPHEN 5-325MG TAB PO PRN (17:28)
[2021-02-03] MEDS: MIRTAZAPINE 15 MG TAB PO SCH (22:05)
[2021-02-03] MEDS: HYDROmorphone 1 MG/1 ML INJ IV PRN (22:10)
[2021-02-03 23:11] LABS: Band Neutrophils # (Manual) 0.1 K/mm3; Total Cells Counted 100
[2021-02-03 23:12] LABS: Anisocytosis 2+; Hypochromasia 2+; Ovalocytes Few; Platelet Estimate Consistent w Auto; Poikilocytosis 1+
[2021-02-04] MEDS: INSULIN LISPRO 100 UNIT/ML SUB-Q SCH ×4 (03:05→18:09)
[2021-02-04] MEDS: hydrALAZINE 100 MG TAB PO SCH ×3 (06:04→21:50)
[2021-02-04] MEDS: FUROSEMIDE 40 MG/4 ML INJ IV SCH ×2 (06:04→22:03)
[2021-02-04 06:30] LABS: Hematocrit 31.2 % (30.3-42.9); Hemoglobin 9.1 gm/dl (10.1-14.3); Mean Corpuscular HGB Conc 29 % (30-34); Mean Corpuscular Volume 63 fl (79-97); Platelet Count 248 K/mm3 (140-440); Red Blood Count 4.91 M/mm3 (3.65-5.03); Red Cell Distribution Width 23.4 % (13.2-15.2)
[2021-02-04 06:45] LABS: BUN/Creatinine Ratio 26; Blood Urea Nitrogen 21 mg/dL (7-17); Calcium 8.8 mg/dL (8.4-10.2); Hemolysis Index 4
[2021-02-04] MEDS ORDERED: POTASSIUM CHLORIDE ER 20 MEQ TAB PO ONE (08:00)
[2021-02-04] MEDS: BUDESONIDE 0.5 MG/2 ML NEBU IH SCH ×4 (08:20→22:20)
[2021-02-04] MEDS: IPRATROPIUM/ALBUTEROL SULFATE 3 ML AMPUL.NEB IH SCH ×4 (08:47→22:20)
[2021-02-04 09:13] LABS: Total Cells Counted 100
[2021-02-04 09:14] LABS: Anisocytosis 2+; Hypochromasia 2+
[2021-02-04 09:15] LABS: Ovalocytes Few; Poikilocytosis 1+; Target Cells Few
[2021-02-04] MEDS: FERROUS SULFATE 325 MG TAB PO SCH ×2 (10:00→21:50)
[2021-02-04] MEDS: CELECOXIB 200 MG CAP PO SCH (10:55)
[2021-02-04] MEDS: FLUoxetine 20 MG CAP PO SCH (10:58)
[2021-02-04] MEDS: VALSARTAN 160MG TAB PO SCH (10:58)
[2021-02-04] MEDS: VENLAFAXINE 25 MG TAB PO SCH (10:58)
[2021-02-04] MEDS: CLOPIDOGREL 75 MG TAB PO SCH (10:59)
[2021-02-04] MEDS: oxyCODONE /ACETAMINOPHEN 5-325MG TAB PO PRN (10:59)
[2021-02-04] MEDS: METOPROLOL TARTRATE 50 MG TAB PO SCH ×2 (10:59→21:50)
[2021-02-04] MEDS: amLODIPine 10 MG TAB PO SCH (10:59)
[2021-02-04] MEDS: cloNIDine 0.2 MG TAB PO SCH ×2 (10:59→21:50)
[2021-02-04] MEDS: ASPIRIN EC 81 MG TAB PO SCH (10:59)
[2021-02-04] MEDS: FAMOTIDINE 20 MG TAB PO SCH ×2 (10:59→21:50)
[2021-02-04] MEDS: HEPARIN 5,000 UNIT/1 ML VIAL SUB-Q SCH ×2 (11:01→21:50)
--- NOTE | 2021-02-04 14:46 | Progress Note ---
Assessment and Plan Assessment and plan: The patient is a 60-year-old female with past medical history of CHF, hypertension, ADAN, CAD status post stent x2 (currently on DAPT), tobacco dependence, prior [place], morbid obesity, COPD, obesity hypoventilation syndrome, chronic respiratory failure (on 3.5 L of O2 at home) who presented with acute on chronic heart failure exacerbation and was found to be in hypertensive emergency requiring nitroglycerin gtt. #Acute exacerbation of congestive heart failure-resolved Continue CHF exacerbation protocol: Strict I/O, monitor urine output every shift, daily weights, afterload reduction, low-sodium diet, and fluid restriction of approximately 1.5 mL/day Currently on 3 to 4 L of supplemental oxygen (baseline O2 is 3 to 4 L) Pro BNP on admission; 5954. Continue diuresis with IV Lasix 40 mg twice daily. Will transition to p.o. Lasix 40 mg twice daily tomorrow. Cardiology consulted; appreciate recs 09/15/2020 echocardiogram: EF 50 to 55%. Left moderate ventricular hypertrophy. Trace to mild tricuspid regurgitation. Patient counseled on medical compliance and strong need to follow-up with cardiology in outpatient. #Malignant hypertension-resolved Nitroglycerin gtt. initiated in the ED; discontinued on 01/30 Continue with home antihypertensive therapy Hydralazine as needed for SBP greater than 160 Continue to monitor blood pressure every shift #Obesity hypoventilation syndrome-state Continue balanced diet and increase physical activity at discharge Outpatient pulmonary follow-up for sleep study, outpatient bariatric surgery follow-up #Acute on chronic hypoxic respiratory failure-resolved Currently requiring 4 L nasal cannula of supplemental oxygen Continue to wean O2 as tolerated Continue nebulizer therapy #DVT prophylaxis Continue subcutaneous heparin every 12 hours Continue SCDs to bilateral lower extremities while in bed #Advance care planning Continue with physical therapy and pending final recs; possible SNF Disease education conducted, care plan discussed, diagnoses discussed, prognosis discussed, and patient acknowledges understanding with care plan Counseled patient about medication compliance and utilizing resources to ensure medication can be purchased. Patient expressed understanding and is adamant about compliance to medications and clinic appointments. Disposition Plan: Pending PT evaluation History Interval history: No acute events overnight. Hospitalist Physical - Constitutional Vitals: Temp Pulse Resp BP Pulse Ox 98.6 F 68 19 146/71 90 02/04/21 12:08 02/04/21 12:08 02/04/21 12:08 02/04/21 12:08 02/04/21 12:08 General appearance: Present: no acute distress, well-nourished, obese - EENT Eyes: Present: PERRL, EOM intact ENT: hearing intact, clear oral mucosa, dentition normal - Neck Neck: Present: supple, normal ROM - Respiratory Respiratory effort: normal (On 3 L nasal cannula) Respiratory: negative: CTA, diminished, rales, rhonchi, wheezing - Cardiovascular Rhythm: regular Heart Sounds: Present: S1 & S2 - Extremities Extremities: no ischemia, pulses intact, pulses symmetrical, normal temperature, normal color Extremity abnormal: edema (1+ edema to bilateral knees) Peripheral Pulses: within normal limits - Abdominal General gastrointestinal: soft, non-tender, non-distended, normal bowel sounds - Integumentary Integumentary: Present: clear, warm, dry - Psychiatric Psychiatric: appropriate mood/affect, intact judgment & insight, memory intact, cooperative - Neurologic Neurologic: CNII-XII intact, moves all extremities - Allied Health Allied health notes reviewed: nursing HEART Score - HEART Score EKG: Non-specific Age: 45-65 Risk factors: > 3 risk factors or hx of atherosclerotic disease Troponin: Troponin T < 0.010 ng/mL (0.00-0.029) 01/29/21 17:20 - Critical Actions Critical Actions: 4-6 pts:12-16.6% risk of adverse cardiac event. Should be admitted Results - Labs CBC & Chem 7: 02/04/21 06:01 02/04/21 06:01 Labs: Laboratory Last Values WBC 4.8 K/mm3 (4.5-11.0) 02/04/21 06:01 RBC 4.91 M/mm3 (3.65-5.03) 02/04/21 06:01 Hgb 9.1 gm/dl (10.1-14.3) L 02/04/21 06:01 Hct 31.2 % (30.3-42.9) 02/04/21 06:01 MCV 63 fl (79-97) L 02/04/21 06:01 MCH 18 pg (28-32) L 02/04/21 06:01 MCHC 29 % (30-34) L 02/04/21 06:01 RDW 23.4 % (13.2-15.2) H 02/04/21 06:01 Plt Count 248 K/mm3 (140-440) 02/04/21 06:01 Lymph % (Auto) 6.6 % (13.4-35.0) L 02/02/21 08:30 [place] % (Auto) Stock Worker 02/04/21 06:01 Eos % (Auto) 4.3 % (0.0-4.3) 02/02/21 08:30 Baso % (Auto) 1.2 % (0.0-1.8) 02/02/21 08:30 Lymph # (Auto) 0.5 K/mm3 (1.2-5.4) L 02/02/21 08:30 [place] # (Auto) 0.8 K/mm3 (0.0-0.8) 02/02/21 08:30 Eos # (Auto) 0.3 K/mm3 (0.0-0.4) 02/02/21 08:30 Baso # (Auto) 0.1 K/mm3 (0.0-0.1) 02/02/21 08:30 Add Manual Diff Complete 02/04/21 06:01 Total Counted 100 02/04/21 06:01 Seg Neutrophils % 77.0 % (40.0-70.0) H 02/02/21 08:30 Seg Neuts % (Manual) 61.0 % (40.0-70.0) 02/04/21 06:01 Band Neutrophils % 1.0 % 02/04/21 06:01 Lymphocytes % (Manual) 16.0 % (13.4-35.0) 02/04/21 06:01 Monocytes % (Manual) 13.0 % (0.0-7.3) H 02/04/21 06:01 Eosinophils % (Manual) 9.0 % (0.0-4.3) H 02/04/21 06:01 Nucleated RBC % Not Reportable 02/04/21 06:01 Seg Neutrophils # 5.4 K/mm3 (1.8-7.7) 02/02/21 08:30 Seg Neutrophils # Man 2.9 K/mm3 (1.8-7.7) 02/04/21 06:01 Band Neutrophils # 0.0 K/mm3 02/04/21 06:01 Lymphocytes # (Manual) 0.8 K/mm3 (1.2-5.4) L 02/04/21 06:01 Abs React Lymphs (Man) 0.0 K/mm3 02/04/21 06:01 Monocytes # (Manual) 0.6 K/mm3 (0.0-0.8) 02/04/21 06:01 Eosinophils # (Manual) 0.4 K/mm3 (0.0-0.4) 02/04/21 06:01 Basophils # (Manual) 0.0 K/mm3 (0.0-0.1) 02/04/21 06:01 Metamyelocytes # 0.0 K/mm3 02/04/21 06:01 Myelocytes # 0.0 K/mm3 02/04/21 06:01 Promyelocytes # 0.0 K/mm3 02/04/21 06:01 Blast Cells # 0.0 K/mm3 02/04/21 06:01 WBC Morphology Not Reportable 02/04/21 06:01 Hypersegmented Neuts Not Reportable 02/04/21 06:01 Hyposegmented Neuts Not Reportable 02/04/21 06:01 Hypogranular Neuts Not Reportable 02/04/21 06:01 Smudge Cells Not Reportable 02/04/21 06:01 Toxic Granulation Not Reportable 02/04/21 06:01 Toxic Vacuolation Not Reportable 02/04/21 06:01 Dohle Bodies Not Reportable 02/04/21 06:01 Pelger-Huet Anomaly Not Reportable 02/04/21 06:01 Juan Rods Not Reportable 02/04/21 06:01 Platelet Estimate Not Reportable 02/04/21 06:01 Clumped Platelets Not Reportable 02/04/21 06:01 Plt Clumps, EDTA Not Reportable 02/04/21 06:01 Large Platelets Not Reportable 02/04/21 06:01 Giant Platelets Not Reportable 02/04/21 06:01 Platelet Satelliting Not Reportable 02/04/21 06:01 Plt Morphology Comment Not Reportable 02/04/21 06:01 RBC Morphology Not Reportable 02/04/21 06:01 Dimorphic RBCs Not Reportable 02/04/21 06:01 Polychromasia Not Reportable 02/04/21 06:01 Hypochromasia 2+ 02/04/21 06:01 Poikilocytosis 1+ 02/04/21 06:01 Anisocytosis 2+ 02/04/21 06:01 Microcytosis 2+ 02/04/21 06:01 Macrocytosis Not Reportable 02/04/21 06:01 Spherocytes Not Reportable 02/04/21 06:01 Pappenheimer Bodies Not Reportable 02/04/21 06:01 Sickle Cells Not Reportable 02/04/21 06:01 Target Cells Few 02/04/21 06:01 Tear Drop Cells Not Reportable 02/04/21 06:01 Ovalocytes Few 02/04/21 06:01 Helmet Cells Not Reportable 02/04/21 06:01 Lozano-Mandan Bodies Not Reportable 02/04/21 06:01 [place] Rings Not Reportable 02/04/21 06:01 Joanna Cells Not Reportable 02/04/21 06:01 Bite Cells Not Reportable 02/04/21 06:01 Crenated Cell Not Reportable 02/04/21 06:01 Elliptocytes Few 02/04/21 06:01 Acanthocytes (Spur) Not Reportable 02/04/21 06:01 Rouleaux Not Reportable 02/04/21 06:01 Hemoglobin C Crystals Not Reportable 02/04/21 06:01 Schistocytes Not Reportable 02/04/21 06:01 Malaria parasites Not Reportable 02/04/21 06:01 Didier Bodies Not Reportable 02/04/21 06:01 Hem Pathologist Commnt No 02/04/21 06:01 Sodium 140 mmol/L (137-145) 02/04/21 06:01 Potassium 3.5 mmol/L (3.6-5.0) L 02/04/21 06:01 Chloride 102.5 mmol/L (98-107) 02/04/21 06:01 Carbon Dioxide 26 mmol/L (22-30) 02/04/21 06:01 Anion Gap 15 mmol/L 02/04/21 06:01 BUN 21 mg/dL (7-17) H 02/04/21 06:01 Creatinine 0.8 mg/dL (0.6-1.2) 02/04/21 06:01 Estimated GFR > 60 ml/min 02/04/21 06:01 BUN/Creatinine Ratio 26 % 02/04/21 06:01 Glucose 114 mg/dL (65-100) H 02/04/21 06:01 POC Glucose 81 mg/dL (70-105) 02/04/21 12:06 Calcium 8.8 mg/dL (8.4-10.2) 02/04/21 06:01 Phosphorus 3.50 mg/dL (2.5-4.5) 02/04/21 06:01 Magnesium 2.00 mg/dL (1.7-2.3) 02/04/21 06:01 Troponin T < 0.010 ng/mL (0.00-0.029) 01/29/21 17:20 NT-Pro-B Natriuret Pep 5954 pg/mL (0-900) H 01/29/21 17:20 Fabian/IV: Voiding Method External Female Catheter Active Medications - Current Medications Current Medications: Generic Name Dose Route Start Last Admin Trade Name Freq PRN Reason Stop Dose Admin Acetaminophen 650 mg 01/29/21 18:37 Acetaminophen 325 Mg Tab PO Q6H PRN Pain MILD(1-3)/Fever >100.5/ALAS Albuterol 2.5 mg 01/29/21 18:37 01/30/21 09:19 Albuterol 2.5 Mg/3 Ml Nebu IH 2.5 mg Q3HRT PRN Administration Shortness Of Breath Albuterol/Ipratropium 1 ampul 02/03/21 08:00 02/04/21 12:46 Ipratropium/Albuterol Sulfate 3 Ml Ampul.Neb IH 1 ampul TIDRT ANN MARIE Administration Amlodipine Besylate 10 mg 01/30/21 10:00 02/04/21 10:59 Amlodipine 10 Mg Tab PO 10 mg DAILY ANN MARIE Administration Aspirin 81 mg 01/30/21 10:00 02/04/21 10:59 Aspirin Ec 81 Mg Tab PO 81 mg QDAY ANN MARIE Administration Atorvastatin Calcium 40 mg 01/29/21 22:00 02/03/21 22:04 Atorvastatin 40 Mg Tab PO 40 mg QHS ANN MARIE Administration Budesonide 0.5 mg 01/29/21 20:00 02/04/21 12:46 Budesonide 0.5 Mg/2 Ml Nebu IH 0.5 mg Q12HRT ANN MARIE Administration Celecoxib 200 mg 01/30/21 10:00 02/04/21 10:55 Celecoxib 200 Mg Cap PO 200 mg DAILY ANN MARIE Administration Clonidine HCl 0.2 mg 01/29/21 22:00 02/04/21 10:59 Clonidine 0.2 Mg Tab PO 0.2 mg BID ANN MARIE Administration Clopidogrel Bisulfate 75 mg 01/30/21 10:00 02/04/21 10:59 Clopidogrel 75 Mg Tab PO 75 mg QDAY ANN MARIE Administration Dextrose 50 ml 01/29/21 19:15 Dextrose 50% In Water (25gm) 50 Ml Syringe IV Q30MIN PRN Hypoglycemia Protocol Famotidine 20 mg 01/29/21 22:00 02/04/21 10:59 Famotidine 20 Mg Tab PO 20 mg BID ANN MARIE Administration Ferrous Sulfate 325 mg 01/29/21 22:00 02/04/21 10:00 Ferrous Sulfate 325 Mg Tab PO Not Given BID ANN MARIE Fluoxetine HCl 20 mg 01/30/21 10:00 02/04/21 10:58 Fluoxetine 20 Mg Cap PO 20 mg QDAY ANN MARIE Administration Furosemide 40 mg 01/30/21 06:00 02/04/21 06:04 Furosemide 40 Mg/4 Ml Inj IV 40 mg BID@0600,1800 ANN MARIE Administration Heparin Sodium (Porcine) 5,000 unit 01/29/21 22:00 02/04/21 11:01 Heparin 5,000 Unit/1 Ml Vial SUB-Q 5,000 unit Q12HR ANN MARIE Administration Hydralazine HCl 100 mg 01/29/21 22:00 02/04/21 06:04 Hydralazine 100 Mg Tab PO 100 mg Q8HR ANN MARIE Administration Hydralazine HCl 10 mg 01/30/21 06:56 Hydralazine 20 Mg/1 Ml Inj IV Q4HR PRN systolic greater than 160 Hydromorphone HCl 0.5 mg 01/29/21 18:37 02/03/21 22:10 Hydromorphone 1 Mg/1 Ml Inj IV 0.5 mg Q24H PRN Administration Pain , Severe (7-10) Hydroxyzine Pamoate 25 mg 01/29/21 19:13 01/29/21 20:51 Hydroxyzine Pamoate 25 Mg Cap PO 25 mg BID PRN Administration Anxiety Insulin Human Lispro 0 unit 01/30/21 00:00 02/04/21 12:32 Insulin Lispro 100 Unit/Ml SUB-Q Not Given Q6HR [facility] Protocol Isosorbide Mononitrate 60 mg 01/30/21 10:00 02/04/21 10:59 Isosorbide Mononitrate Er 60 Mg Tab PO 60 mg QDAY ANN MARIE Administration Metoprolol Tartrate 50 mg 01/29/21 22:00 02/04/21 10:59 Metoprolol Tartrate 50 Mg Tab PO 50 mg BID ANN MARIE Administration Mirtazapine 7.5 mg 01/29/21 22:00 02/03/21 22:05 Mirtazapine 15 Mg Tab PO 7.5 mg QHS ANN MARIE Administration Oxycodone/Acetaminophen 1 tab 01/29/21 18:37 02/04/21 10:59 Oxycodone /Acetaminophen 5-325mg Tab PO 1 tab Q12H PRN Administration Pain, Moderate (4-6) Sodium Chloride 10 ml 01/29/21 22:00 02/04/21 10:59 Sodium Chloride 0.9% 10 Ml Flush Syringe IV 10 ml BID ANN MARIE Administration Sodium Chloride 10 ml 01/29/21 18:37 Sodium Chloride 0.9% 10 Ml Flush Syringe IV PRN PRN LINE FLUSH Valsartan 160 mg 02/01/21 10:00 02/04/21 10:58 Valsartan 160mg Tab PO 160 mg DAILY ANN MARIE Administration Venlafaxine HCl 25 mg 01/30/21 10:00 02/04/21 10:58 Venlafaxine 25 Mg Tab PO 25 mg DAILY ANN MARIE Administration Nutrition/Malnutrition Assess - Dietary Evaluation Nutrition/Malnutrition Findings: Nutrition Notes Start: 02/03/21 13:37 Freq: Status: Active Protocol: Document 02/03/21 13:37 HIRAL (Rec: 02/03/21 14:07 HIRAL [id number]) Nutrition Notes Need for Assessment generated from: LOS Initial or Follow up Brief Note Current Diagnosis Hypertension Other Pertinent Diagnosis CHF exacerbation Current Diet Low sodium + 1.5L fluid restriction Minimum of two criteria No Nutrition Intervention Revisit per MD consult or patient Sign Off request:
[2021-02-04] MEDS: MIRTAZAPINE 15 MG TAB PO SCH (21:50)
[2021-02-04] MEDS: HYDROmorphone 1 MG/1 ML INJ IV PRN (21:51)
[2021-02-05] MEDS: INSULIN LISPRO 100 UNIT/ML SUB-Q SCH ×4 (01:28→17:52)
[2021-02-05] MEDS: FUROSEMIDE 40 MG TAB PO SCH ×2 (05:33→17:52)
[2021-02-05] MEDS: oxyCODONE /ACETAMINOPHEN 5-325MG TAB PO PRN ×2 (05:33→22:23)
[2021-02-05] MEDS: hydrALAZINE 100 MG TAB PO SCH ×3 (05:33→22:17)
[2021-02-05] MEDS ORDERED: CLOPIDOGREL 75 MG TAB PO SCH (10:00)
[2021-02-05] MEDS: FERROUS SULFATE 325 MG TAB PO SCH ×2 (10:09→22:17)
[2021-02-05] MEDS: BUDESONIDE 0.5 MG/2 ML NEBU IH SCH ×2 (10:12→20:53)
[2021-02-05] MEDS: IPRATROPIUM/ALBUTEROL SULFATE 3 ML AMPUL.NEB IH SCH ×3 (10:12→20:53)
[2021-02-05] MEDS: VENLAFAXINE 25 MG TAB PO SCH (10:31)
[2021-02-05] MEDS: FLUoxetine 20 MG CAP PO SCH (10:31)
[2021-02-05] MEDS: ASPIRIN EC 81 MG TAB PO SCH (10:31)
[2021-02-05] MEDS: CELECOXIB 200 MG CAP PO SCH (10:31)
[2021-02-05] MEDS: METOPROLOL TARTRATE 50 MG TAB PO SCH ×2 (10:31→22:17)
[2021-02-05] MEDS: VALSARTAN 160MG TAB PO SCH (10:32)
[2021-02-05] MEDS: CLOPIDOGREL 75 MG TAB PO SCH (10:32)
[2021-02-05] MEDS: cloNIDine 0.2 MG TAB PO SCH ×2 (10:32→22:17)
[2021-02-05] MEDS: FAMOTIDINE 20 MG TAB PO SCH ×2 (10:32→22:17)
[2021-02-05] MEDS: HEPARIN 5,000 UNIT/1 ML VIAL SUB-Q SCH ×2 (10:32→22:18)
[2021-02-05] MEDS: amLODIPine 10 MG TAB PO SCH (10:33)
--- NOTE | 2021-02-05 10:52 | Progress Note ---
Assessment and Plan HFpEF CAD s/p PCI 2018 Acute hypoxic respiratory failure/COPD (on home O2) HTN Echocardiogram reviewed (09/15/2020): LVEF is 50 to 55%. LV SF is normal. Moderate LVH. RV SF is normal. Moderate pulmonary hypertension cannot be excluded due to poor regurgitant envelope [facility] 06/20/2018: successful PCI with intravascular ultrasound of the ramus with DIANELYS which was 100% culprit vessel with DIANELYS. Left main patent, LAD patent. RCA mmoderate to severe tortuosity with mid stent patent, circumflex pateent, ARIELA 50% with sintia 100% with successful PCI. Acute diastolic dysfunction. Discharge planning Patient should be discharged home on Lasix 40mg PO BID. Patient has follow up appointment with Dr. Hernandez, [facility], on 02/27/2021 at 9:30 in our [place] location. Subjective Date of service: 02/05/21 Principal diagnosis: HFpEF, Hypertensive emergency, Acuteon chronic respiratory failure Interval history: Pt sitting in bed without complaints. States she feels much better. Objective Vital Signs Temp Pulse Pulse Pulse Resp Resp BP 02/05/21 10:31 90 02/05/21 09:00 98.6 F 74 22 158/74 02/05/21 08:02 74 02/05/21 06:01 97.8 F 77 20 161/71 02/04/21 23:32 97.9 F 78 20 158/74 02/04/21 22:24 71 20 02/04/21 22:00 66 02/04/21 21:00 68 18 02/04/21 20:32 98.0 F 72 20 145/77 02/04/21 15:58 98.2 F 67 18 122/60 02/04/21 13:15 02/04/21 13:05 72 18 02/04/21 12:08 98.6 F 68 19 146/71 Pulse Ox 02/05/21 10:31 02/05/21 09:00 90 02/05/21 08:02 98 02/05/21 06:01 94 02/04/21 23:32 92 02/04/21 22:24 02/04/21 22:00 02/04/21 21:00 95 02/04/21 20:32 92 02/04/21 15:58 94 02/04/21 13:15 98 02/04/21 13:05 02/04/21 12:08 90 - Physical Examination General: No Apparent Distress HEENT: Positive: PERRL Neck: Positive: trachea midline Cardiac: Positive: Reg Rate and Rhythm Lungs: Positive: Decreased Breath Sounds Neuro: Positive: Grossly Intact Abdomen: Positive: Soft, Active Bowel Sounds Skin: Negative: Rash, Suspicious Lesions, Ulceration Extremities: Present: upper extr. pulses, lower extr. pulses, edema (Trace) - Imaging and Cardiology EKG: report reviewed Echo: report reviewed ((09/15/2020): LVEF is 50 to 55%. LV SF is normal. Moderate LVH. RV SF is normal. Moderate pulmonary hypertension cannot be excluded due to poor regurgitant envelope) Cardiac cath: report reviewed ([facility] 06/20/2018 successful PCI with intravascular ultrasound of the ramus with DIANELYS which was 100% culprit vessel with DIANELYS. Left main patent, LAD patent. RCA mmoderate to severe tortuosity with mid stent patent, circumflex pateent, ARIELA 50% with sintia 100% with successful PCI. Acute diastolic dysfunction) - EKG Sinus rhythms and dysrhythmias: sinus rhythm QRS axis and voltage: right axis deviation
--- NOTE | 2021-02-05 15:55 | Progress Note ---
Assessment and Plan Assessment and plan: The patient is a 60-year-old female with past medical history of CHF, hypertension, ADAN, CAD status post stent x2 (currently on DAPT), tobacco dependence, prior MA, morbid obesity, COPD, obesity hypoventilation syndrome, chronic respiratory failure (on 3.5 L of O2 at home) who presented with acute on chronic heart failure exacerbation and was found to be in hypertensive emergency requiring nitroglycerin gtt. #Acute exacerbation of congestive heart failure-resolved Continue CHF exacerbation protocol: Strict I/O, monitor urine output every shift, daily weights, afterload reduction, low-sodium diet, and fluid restriction of approximately 1.5 mL/day Currently on 3 to 4 L of supplemental oxygen (baseline O2 is 3 to 4 L) Pro BNP on admission; 5954. Continue diuresis with IV Lasix 40 mg twice daily. Will transition to p.o. Lasix 40 mg twice daily tomorrow. Cardiology consulted; appreciate recs 09/15/2020 echocardiogram: EF 50 to 55%. Left moderate ventricular hypertrophy. Trace to mild tricuspid regurgitation. Patient counseled on medical compliance and strong need to follow-up with cardiology in outpatient. #Malignant hypertension-resolved Nitroglycerin gtt. initiated in the ED; discontinued on 01/30 Continue with home antihypertensive therapy Hydralazine as needed for SBP greater than 160 Continue to monitor blood pressure every shift #Obesity hypoventilation syndrome-state Continue balanced diet and increase physical activity at discharge Outpatient pulmonary follow-up for sleep study, outpatient bariatric surgery follow-up #Acute on chronic hypoxic respiratory failure-resolved Currently requiring 4 L nasal cannula of supplemental oxygen Continue to wean O2 as tolerated Continue nebulizer therapy #DVT prophylaxis Continue subcutaneous heparin every 12 hours Continue SCDs to bilateral lower extremities while in bed #Advance care planning Pending SNF placement per physical therapy recommendations Disease education conducted, care plan discussed, diagnoses discussed, prognosis discussed, and patient acknowledges understanding with care plan Counseled patient about medication compliance and utilizing resources to ensure medication can be purchased. Patient expressed understanding and is adamant about compliance to medications and clinic appointments. Disposition Plan: Pending SNF placement. Total Time Spent with Patient (Minutes): 20 History Interval history: No acute events overnight Hospitalist Physical - Constitutional Vitals: Temp Pulse Resp BP Pulse Ox 97.6 F 50 L 20 138/74 94 02/05/21 12:05 02/05/21 12:05 02/05/21 12:05 02/05/21 12:05 02/05/21 12:05 General appearance: Present: no acute distress, well-nourished, obese - EENT Eyes: Present: PERRL, EOM intact ENT: hearing intact, clear oral mucosa, dentition normal - Neck Neck: Present: supple, normal ROM - Respiratory Respiratory effort: normal (On 3-4 L nasal cannula) - Cardiovascular Rhythm: regular Heart Sounds: Present: S1 & S2 - Extremities Extremities: no ischemia, pulses intact, pulses symmetrical, normal temperature, normal color Extremity abnormal: edema (Trace pitting edema to bilateral knees) Peripheral Pulses: within normal limits - Abdominal General gastrointestinal: soft, non-tender, non-distended, normal bowel sounds - Integumentary Integumentary: Present: clear, warm, dry - Psychiatric Psychiatric: appropriate mood/affect, intact judgment & insight, memory intact, cooperative - Neurologic Neurologic: CNII-XII intact, moves all extremities - Allied Health Allied health notes reviewed: nursing HEART Score - HEART Score EKG: Non-specific Age: 45-65 Risk factors: > 3 risk factors or hx of atherosclerotic disease Troponin: Troponin T < 0.010 ng/mL (0.00-0.029) 01/29/21 17:20 - Critical Actions Critical Actions: 4-6 pts:12-16.6% risk of adverse cardiac event. Should be admitted Results - Labs CBC & Chem 7: 02/04/21 06:01 02/04/21 06:01 Labs: Laboratory Last Values WBC 4.8 K/mm3 (4.5-11.0) 02/04/21 06:01 RBC 4.91 M/mm3 (3.65-5.03) 02/04/21 06:01 Hgb 9.1 gm/dl (10.1-14.3) L 02/04/21 06:01 Hct 31.2 % (30.3-42.9) 02/04/21 06:01 MCV 63 fl (79-97) L 02/04/21 06:01 MCH 18 pg (28-32) L 02/04/21 06:01 MCHC 29 % (30-34) L 02/04/21 06:01 RDW 23.4 % (13.2-15.2) H 02/04/21 06:01 Plt Count 248 K/mm3 (140-440) 02/04/21 06:01 Lymph % (Auto) 6.6 % (13.4-35.0) L 02/02/21 08:30 [place] % (Auto) [employer] Intern 02/04/21 06:01 Eos % (Auto) 4.3 % (0.0-4.3) 02/02/21 08:30 Baso % (Auto) 1.2 % (0.0-1.8) 02/02/21 08:30 Lymph # (Auto) 0.5 K/mm3 (1.2-5.4) L 02/02/21 08:30 [place] # (Auto) 0.8 K/mm3 (0.0-0.8) 02/02/21 08:30 Eos # (Auto) 0.3 K/mm3 (0.0-0.4) 02/02/21 08:30 Baso # (Auto) 0.1 K/mm3 (0.0-0.1) 02/02/21 08:30 Add Manual Diff Complete 02/04/21 06:01 Total Counted 100 02/04/21 06:01 Seg Neutrophils % 77.0 % (40.0-70.0) H 02/02/21 08:30 Seg Neuts % (Manual) 61.0 % (40.0-70.0) 02/04/21 06:01 Band Neutrophils % 1.0 % 02/04/21 06:01 Lymphocytes % (Manual) 16.0 % (13.4-35.0) 02/04/21 06:01 Monocytes % (Manual) 13.0 % (0.0-7.3) H 02/04/21 06:01 Eosinophils % (Manual) 9.0 % (0.0-4.3) H 02/04/21 06:01 Nucleated RBC % Not Reportable 02/04/21 06:01 Seg Neutrophils # 5.4 K/mm3 (1.8-7.7) 02/02/21 08:30 Seg Neutrophils # Man 2.9 K/mm3 (1.8-7.7) 02/04/21 06:01 Band Neutrophils # 0.0 K/mm3 02/04/21 06:01 Lymphocytes # (Manual) 0.8 K/mm3 (1.2-5.4) L 02/04/21 06:01 Abs React Lymphs (Man) 0.0 K/mm3 02/04/21 06:01 Monocytes # (Manual) 0.6 K/mm3 (0.0-0.8) 02/04/21 06:01 Eosinophils # (Manual) 0.4 K/mm3 (0.0-0.4) 02/04/21 06:01 Basophils # (Manual) 0.0 K/mm3 (0.0-0.1) 02/04/21 06:01 Metamyelocytes # 0.0 K/mm3 02/04/21 06:01 Myelocytes # 0.0 K/mm3 02/04/21 06:01 Promyelocytes # 0.0 K/mm3 02/04/21 06:01 Blast Cells # 0.0 K/mm3 02/04/21 06:01 WBC Morphology Not Reportable 02/04/21 06:01 Hypersegmented Neuts Not Reportable 02/04/21 06:01 Hyposegmented Neuts Not Reportable 02/04/21 06:01 Hypogranular Neuts Not Reportable 02/04/21 06:01 Smudge Cells Not Reportable 02/04/21 06:01 Toxic Granulation Not Reportable 02/04/21 06:01 Toxic Vacuolation Not Reportable 02/04/21 06:01 Dohle Bodies Not Reportable 02/04/21 06:01 Pelger-Huet Anomaly Not Reportable 02/04/21 06:01 Juan Rods Not Reportable 02/04/21 06:01 Platelet Estimate Not Reportable 02/04/21 06:01 Clumped Platelets Not Reportable 02/04/21 06:01 Plt Clumps, EDTA Not Reportable 02/04/21 06:01 Large Platelets Not Reportable 02/04/21 06:01 Giant Platelets Not Reportable 02/04/21 06:01 Platelet Satelliting Not Reportable 02/04/21 06:01 Plt Morphology Comment Not Reportable 02/04/21 06:01 RBC Morphology Not Reportable 02/04/21 06:01 Dimorphic RBCs Not Reportable 02/04/21 06:01 Polychromasia Not Reportable 02/04/21 06:01 Hypochromasia 2+ 02/04/21 06:01 Poikilocytosis 1+ 02/04/21 06:01 Anisocytosis 2+ 02/04/21 06:01 Microcytosis 2+ 02/04/21 06:01 Macrocytosis Not Reportable 02/04/21 06:01 Spherocytes Not Reportable 02/04/21 06:01 Pappenheimer Bodies Not Reportable 02/04/21 06:01 Sickle Cells Not Reportable 02/04/21 06:01 Target Cells Few 02/04/21 06:01 Tear Drop Cells Not Reportable 02/04/21 06:01 Ovalocytes Few 02/04/21 06:01 Helmet Cells Not Reportable 02/04/21 06:01 Lozano-Hodgkins Bodies Not Reportable 02/04/21 06:01 [place] Rings Not Reportable 02/04/21 06:01 Joanna Cells Not Reportable 02/04/21 06:01 Bite Cells Not Reportable 02/04/21 06:01 Crenated Cell Not Reportable 02/04/21 06:01 Elliptocytes Few 02/04/21 06:01 Acanthocytes (Spur) Not Reportable 02/04/21 06:01 Rouleaux Not Reportable 02/04/21 06:01 Hemoglobin C Crystals Not Reportable 02/04/21 06:01 Schistocytes Not Reportable 02/04/21 06:01 Malaria parasites Not Reportable 02/04/21 06:01 [place]ier Bodies Not Reportable 02/04/21 06:01 Hem Pathologist Commnt No 02/04/21 06:01 Sodium 140 mmol/L (137-145) 02/04/21 06:01 Potassium 3.5 mmol/L (3.6-5.0) L 02/04/21 06:01 Chloride 102.5 mmol/L (98-107) 02/04/21 06:01 Carbon Dioxide 26 mmol/L (22-30) 02/04/21 06:01 Anion Gap 15 mmol/L 02/04/21 06:01 BUN 21 mg/dL (7-17) H 02/04/21 06:01 Creatinine 0.8 mg/dL (0.6-1.2) 02/04/21 06:01 Estimated GFR > 60 ml/min 02/04/21 06:01 BUN/Creatinine Ratio 26 % 02/04/21 06:01 Glucose 114 mg/dL (65-100) H 02/04/21 06:01 POC Glucose 95 mg/dL (70-105) 02/05/21 12:06 Calcium 8.8 mg/dL (8.4-10.2) 02/04/21 06:01 Phosphorus 3.50 mg/dL (2.5-4.5) 02/04/21 06:01 Magnesium 2.00 mg/dL (1.7-2.3) 02/04/21 06:01 Troponin T < 0.010 ng/mL (0.00-0.029) 01/29/21 17:20 NT-Pro-B Natriuret Pep 5954 pg/mL (0-900) H 01/29/21 17:20 Fabian/IV: Voiding Method External Female Catheter Active Medications - Current Medications Current Medications: Generic Name Dose Route Start Last Admin Trade Name Freq PRN Reason Stop Dose Admin Acetaminophen 650 mg 01/29/21 18:37 Acetaminophen 325 Mg Tab PO Q6H PRN Pain MILD(1-3)/Fever >100.5/ALAS Albuterol 2.5 mg 01/29/21 18:37 01/30/21 09:19 Albuterol 2.5 Mg/3 Ml Nebu IH 2.5 mg Q3HRT PRN Administration Shortness Of Breath Albuterol/Ipratropium 1 ampul 02/03/21 08:00 02/05/21 10:12 Ipratropium/Albuterol Sulfate 3 Ml Ampul.Neb IH Not Given TIDRT ANN MARIE Amlodipine Besylate 10 mg 01/30/21 10:00 02/05/21 10:33 Amlodipine 10 Mg Tab PO 10 mg DAILY ANN MARIE Administration Aspirin 81 mg 01/30/21 10:00 02/05/21 10:31 Aspirin Ec 81 Mg Tab PO 81 mg QDAY ANN MARIE Administration Atorvastatin Calcium 40 mg 01/29/21 22:00 02/04/21 21:49 Atorvastatin 40 Mg Tab PO 40 mg QHS ANN MARIE Administration Budesonide 0.5 mg 01/29/21 20:00 02/05/21 10:12 Budesonide 0.5 Mg/2 Ml Nebu IH Not Given Q12HRT ANN MARIE Celecoxib 200 mg 01/30/21 10:00 02/05/21 10:31 Celecoxib 200 Mg Cap PO 200 mg DAILY ANN MARIE Administration Clonidine HCl 0.2 mg 01/29/21 22:00 02/05/21 10:32 Clonidine 0.2 Mg Tab PO 0.2 mg BID ANN MARIE Administration Clopidogrel Bisulfate 75 mg 01/30/21 10:00 02/05/21 10:32 Clopidogrel 75 Mg Tab PO 75 mg QDAY ANN MARIE Administration Dextrose 50 ml 01/29/21 19:15 Dextrose 50% In Water (25gm) 50 Ml Syringe IV Q30MIN PRN Hypoglycemia Protocol Famotidine 20 mg 01/29/21 22:00 02/05/21 10:32 Famotidine 20 Mg Tab PO 20 mg BID ANN MARIE Administration Ferrous Sulfate 325 mg 01/29/21 22:00 02/05/21 10:09 Ferrous Sulfate 325 Mg Tab PO Not Given BID ANN MARIE Fluoxetine HCl 20 mg 01/30/21 10:00 02/05/21 10:31 Fluoxetine 20 Mg Cap PO 20 mg QDAY ANN MARIE Administration Furosemide 40 mg 02/05/21 06:00 02/05/21 05:33 Furosemide 40 Mg Tab PO 40 mg 0600,1800 ANN MARIE Administration Heparin Sodium (Porcine) 5,000 unit 01/29/21 22:00 02/05/21 10:32 Heparin 5,000 Unit/1 Ml Vial SUB-Q 5,000 unit Q12HR ANN MARIE Administration Hydralazine HCl 100 mg 01/29/21 22:00 02/05/21 14:10 Hydralazine 100 Mg Tab PO Not Given Q8HR [facility] Hydralazine HCl 10 mg 01/30/21 06:56 Hydralazine 20 Mg/1 Ml Inj IV Q4HR PRN systolic greater than 160 Hydromorphone HCl 0.5 mg 01/29/21 18:37 02/04/21 21:51 Hydromorphone 1 Mg/1 Ml Inj IV 0.5 mg Q24H PRN Administration Pain , Severe (7-10) Hydroxyzine Pamoate 25 mg 01/29/21 19:13 01/29/21 20:51 Hydroxyzine Pamoate 25 Mg Cap PO 25 mg BID PRN Administration Anxiety Insulin Human Lispro 0 unit 01/30/21 00:00 02/05/21 12:10 Insulin Lispro 100 Unit/Ml SUB-Q Not Given Q6HR [facility] Protocol Isosorbide Mononitrate 60 mg 01/30/21 10:00 02/05/21 10:31 Isosorbide Mononitrate Er 60 Mg Tab PO 60 mg QDAY ANN MARIE Administration Metoprolol Tartrate 50 mg 01/29/21 22:00 02/05/21 10:31 Metoprolol Tartrate 50 Mg Tab PO 50 mg BID ANN MARIE Administration Mirtazapine 7.5 mg 01/29/21 22:00 02/04/21 21:50 Mirtazapine 15 Mg Tab PO 7.5 mg QHS ANN MARIE Administration Oxycodone/Acetaminophen 1 tab 01/29/21 18:37 02/05/21 05:33 Oxycodone /Acetaminophen 5-325mg Tab PO 1 tab Q12H PRN Administration Pain, Moderate (4-6) Sodium Chloride 10 ml 01/29/21 22:00 02/05/21 10:33 Sodium Chloride 0.9% 10 Ml Flush Syringe IV 10 ml BID ANN MARIE Administration Sodium Chloride 10 ml 01/29/21 18:37 Sodium Chloride 0.9% 10 Ml Flush Syringe IV PRN PRN LINE FLUSH Valsartan 160 mg 02/01/21 10:00 02/05/21 10:32 Valsartan 160mg Tab PO 160 mg DAILY ANN MARIE Administration Venlafaxine HCl 25 mg 01/30/21 10:00 02/05/21 10:31 Venlafaxine 25 Mg Tab PO 25 mg DAILY ANN MARIE Administration Nutrition/Malnutrition Assess - Dietary Evaluation Nutrition/Malnutrition Findings: Nutrition Notes Start: 02/03/21 13:37 Freq: Status: Active Protocol: Document 02/03/21 13:37 HIRAL (Rec: 02/03/21 14:07 [facility] [id number]) Nutrition Notes Need for Assessment generated from: LOS Initial or Follow up Brief Note Current Diagnosis Hypertension Other Pertinent Diagnosis CHF exacerbation Current Diet Low sodium + 1.5L fluid restriction Minimum of two criteria No Nutrition Intervention Revisit per MD consult or patient Sign Off request: - Attestation Statement I have reviewed and agreed w/ Malnutrition eval & tx plan: Yes
[2021-02-05] MEDS: MIRTAZAPINE 15 MG TAB PO SCH (22:17)
[2021-02-06] MEDS: INSULIN LISPRO 100 UNIT/ML SUB-Q SCH ×4 (00:21→17:52)
[2021-02-06] MEDS: FUROSEMIDE 40 MG TAB PO SCH ×2 (05:19→21:14)
[2021-02-06] MEDS: hydrALAZINE 100 MG TAB PO SCH ×3 (05:39→21:13)
[2021-02-06 07:28] LABS: Blood Urea Nitrogen 18 mg/dL (7-17); Calcium 8.9 mg/dL (8.4-10.2); Hemolysis Index 0
[2021-02-06 07:29] LABS: BUN/Creatinine Ratio 30
[2021-02-06] MEDS: BUDESONIDE 0.5 MG/2 ML NEBU IH SCH ×2 (08:05→21:00)
[2021-02-06] MEDS: IPRATROPIUM/ALBUTEROL SULFATE 3 ML AMPUL.NEB IH SCH ×3 (08:05→21:00)
[2021-02-06] MEDS: FERROUS SULFATE 325 MG TAB PO SCH ×2 (10:11→21:13)
[2021-02-06] MEDS: VENLAFAXINE 25 MG TAB PO SCH (11:00)
[2021-02-06] MEDS: FAMOTIDINE 20 MG TAB PO SCH ×2 (11:01→21:13)
[2021-02-06] MEDS: amLODIPine 10 MG TAB PO SCH (11:01)
[2021-02-06] MEDS: CELECOXIB 200 MG CAP PO SCH (11:01)
[2021-02-06] MEDS: cloNIDine 0.2 MG TAB PO SCH ×2 (11:01→21:13)
[2021-02-06] MEDS: CLOPIDOGREL 75 MG TAB PO SCH (11:01)
[2021-02-06] MEDS: METOPROLOL TARTRATE 50 MG TAB PO SCH ×2 (11:01→21:13)
[2021-02-06] MEDS: FLUoxetine 20 MG CAP PO SCH (11:01)
[2021-02-06] MEDS: HEPARIN 5,000 UNIT/1 ML VIAL SUB-Q SCH ×2 (11:01→21:13)
[2021-02-06] MEDS: VALSARTAN 160MG TAB PO SCH (11:02)
[2021-02-06] MEDS: ASPIRIN EC 81 MG TAB PO SCH (11:02)
--- NOTE | 2021-02-06 11:25 | Progress Note ---
Assessment and Plan HFpEF * Echocardiogram reviewed (09/15/2020): LVEF is 50 to 55%. LV SF is normal. Moderate LVH. RV SF is normal. Moderate pulmonary hypertension cannot be excluded due to poor regurgitant envelope * Telemetry reviewed: sinus 70s no events on monitor * BNP on admission 5954, BLE edema. Currently on Lasix 40mg PO BID * GDMT: asa, BB, LETTY/ARB, statin * EKG showed normal sinus rhythm with no acute ischemic changes Acute hypoxic respiratory failure COPD (on home O2) * Currently on NC * Management per primary team HTN * Continue metoprolol 50mg PO BID, valsartan 160mg PO QD, amlodipine 10mg QD, clonidine 0.2mg PO BID CAD s/p PCI 2018 * [facility] 06/20/2018 successful PCI with intravascular ultrasound of the ramus with DIANELYS which was 100% culprit vessel with DIANELYS. Left main patent, LAD patent. RCA mmoderate to severe tortuosity with mid stent patent, circumflex pateent, ARIELA 50% with sintia 100% with successful PCI. Acute diastolic dysfunction. * Continue DAPT and Imdur 60mg QD Plan: Patient is stable and may be discharged from a cardiac perspective. Patient should be discharged home on Lasix 40mg PO BID. Patient has follow up appointment with Dr. Hernandez, [facility], on 02/27/2021 at 9:30 in our [place] location. Patient seen in conjunction with Dr. Roberto who agrees with this plan of care. Will see as needed - Patient Problems (1) Acute and chronic respiratory failure Current Visit: Yes Status: Acute Qualifiers: Respiratory failure complication: hypoxia Qualified Code(s): J96.21 - Acute and chronic respiratory failure with hypoxia (2) Acute exacerbation of CHF (congestive heart failure) Current Visit: Yes Status: Acute Qualifiers: Heart failure type: combined systolic and diastolic Qualified Code(s): I50.43 - Acute on chronic combined systolic (congestive) and diastolic (congestive) heart failure (3) Malignant hypertension Current Visit: Yes Status: Acute (4) Obesity hypoventilation syndrome Current Visit: Yes Status: Acute (5) Precordial chest pain Current Visit: Yes Status: Acute (6) Shortness of breath Current Visit: Yes Status: Acute (7) Acute and chronic respiratory failure Current Visit: No Status: Acute Qualifiers: Respiratory failure complication: hypoxia Qualified Code(s): J96.21 - Acute and chronic respiratory failure with hypoxia (8) Morbid obesity with body mass index of 40.0-49.9 Current Visit: No Status: Acute (9) CAD (coronary artery disease) Current Visit: No Status: Chronic Qualifiers: Coronary Disease-Associated Artery/Lesion type: [place] artery [place] vs. transplanted heart: [place] heart Associated angina: with stable angina Qualified Code(s): I25.118 - Atherosclerotic heart disease of [place] coronary artery with other forms of angina pectoris (10) H/O cardiomyopathy Current Visit: No Status: Chronic (11) Medical non-compliance Current Visit: No Status: Chronic Subjective Date of service: 02/06/21 Principal diagnosis: HFpEF, Hypertensive emergency, Acuteon chronic respiratory failure Interval history: Patient sitting in bed with no cardiac complaints Sinus 60s with with episodes of bradycardia on monitor Objective Vital Signs Temp Pulse Pulse Resp Resp BP Pulse Ox 02/06/21 08:12 50 L 100 02/06/21 08:05 60 18 98 02/06/21 03:44 97.6 F 50 L 18 149/93 96 02/06/21 01:22 98 02/05/21 23:29 98.0 F 62 17 166/93 96 02/05/21 20:57 97 02/05/21 20:55 73 20 02/05/21 20:29 95 02/05/21 19:28 98.1 F 70 20 138/85 89 02/05/21 16:26 98.0 F 54 L 20 119/63 94 02/05/21 12:05 97.6 F 50 L 20 138/74 94 - Physical Examination General: No Apparent Distress HEENT: Positive: PERRL Neck: Positive: trachea midline Cardiac: Positive: Reg Rate and Rhythm Lungs: Positive: Normal Breath Sounds Neuro: Positive: Grossly Intact Abdomen: Positive: Soft, Active Bowel Sounds Skin: Negative: Rash, Suspicious Lesions, Ulceration Extremities: Present: upper extr. pulses, lower extr. pulses, edema - Labs and Meds Comprehensive Metabolic Panel 02/06/21 Range/Units 06:52 Sodium 140 (137-145) mmol/L Potassium 3.4 L (3.6-5.0) mmol/L Chloride 103.3 (98-107) mmol/L Carbon Dioxide 31 H (22-30) mmol/L BUN 18 H (7-17) mg/dL Creatinine 0.6 (0.6-1.2) mg/dL Glucose 96 (65-100) mg/dL Calcium 8.9 (8.4-10.2) mg/dL - Imaging and Cardiology EKG: report reviewed Echo: report reviewed ((09/15/2020): LVEF is 50 to 55%. LV SF is normal. Moderate LVH. RV SF is normal. Moderate pulmonary hypertension cannot be excluded due to poor regurgitant envelope) Cardiac cath: report reviewed ([facility] 06/20/2018 successful PCI with intravascular ultrasound of the ramus with DIANELYS which was 100% culprit vessel with DIANELYS. Left main patent, LAD patent. RCA mmoderate to severe tortuosity with mid stent patent, circumflex pateent, ARIELA 50% with sintia 100% with successful PCI. Acute diastolic dysfunction) - Telemetry EKG Rhythm: Sinus Rhythm - EKG Sinus rhythms and dysrhythmias: sinus rhythm QRS axis and voltage: right axis deviation
--- NOTE | 2021-02-06 12:51 | Progress Note ---
Assessment and Plan Assessment and plan: The patient is a 60-year-old female with past medical history of CHF, hypertension, ADAN, CAD status post stent x2 (currently on DAPT), tobacco dependence, prior RI, morbid obesity, COPD, obesity hypoventilation syndrome, chronic respiratory failure (on 3.5 L of O2 at home) who presented with acute on chronic heart failure exacerbation and was found to be in hypertensive emergency requiring nitroglycerin gtt. #Acute exacerbation of congestive heart failure-resolved Continue CHF exacerbation protocol: Strict I/O, monitor urine output every shift, daily weights, afterload reduction, low-sodium diet, and fluid restriction of approximately 1.5 mL/day Currently on 3 to 4 L of supplemental oxygen (baseline O2 is 3 to 4 L) Pro BNP on admission; 5954. Continue diuresis with IV Lasix 40 mg twice daily. Will transition to p.o. Lasix 40 mg twice daily tomorrow. Cardiology consulted; appreciate recs 09/15/2020 echocardiogram: EF 50 to 55%. Left moderate ventricular hypertrophy. Trace to mild tricuspid regurgitation. Patient counseled on medical compliance and strong need to follow-up with cardiology in outpatient. #Malignant hypertension-resolved Nitroglycerin gtt. initiated in the ED; discontinued on 01/30 Continue with home antihypertensive therapy Hydralazine as needed for SBP greater than 160 Continue to monitor blood pressure every shift #Obesity hypoventilation syndrome-state Continue balanced diet and increase physical activity at discharge Outpatient pulmonary follow-up for sleep study, outpatient bariatric surgery follow-up #Acute on chronic hypoxic respiratory failure-resolved Currently requiring 4 L nasal cannula of supplemental oxygen Continue to wean O2 as tolerated Continue nebulizer therapy #DVT prophylaxis Continue subcutaneous heparin every 12 hours Continue SCDs to bilateral lower extremities while in bed #Advance care planning Pending SNF placement per physical therapy recommendations Disease education conducted, care plan discussed, diagnoses discussed, prognosis discussed, and patient acknowledges understanding with care plan Counseled patient about medication compliance and utilizing resources to ensure medication can be purchased. Patient expressed understanding and is adamant about compliance to medications and clinic appointments. Disposition Plan: Pending SNF discharge Total Time Spent with Patient (Minutes): 30 History Interval history: No acute events overnight Hospitalist Physical - Constitutional Vitals: Temp Pulse Resp BP Pulse Ox 97.6 F 50 L 18 149/93 100 02/06/21 03:44 02/06/21 08:12 02/06/21 08:05 02/06/21 03:44 02/06/21 08:12 General appearance: Present: no acute distress, well-nourished, obese - EENT Eyes: Present: PERRL, EOM intact ENT: hearing intact, clear oral mucosa, dentition normal - Neck Neck: Present: supple, normal ROM - Respiratory Respiratory effort: normal (Currently on 3-4 L nasal) Respiratory: negative: CTA, diminished, rales, rhonchi, wheezing, other - Cardiovascular Rhythm: regular Heart Sounds: Present: S1 & S2 - Extremities Extremities: no ischemia, pulses intact, pulses symmetrical, normal temperature, normal color Extremity abnormal: edema (Trace edema to bilateral knee) Peripheral Pulses: within normal limits - Abdominal General gastrointestinal: soft, non-tender, non-distended, other (Difficult to auscultate bowel sounds given body habitus) - Integumentary Integumentary: Present: clear, warm, dry - Psychiatric Psychiatric: appropriate mood/affect, intact judgment & insight, memory intact, cooperative - Neurologic Neurologic: CNII-XII intact, moves all extremities - Allied Health Allied health notes reviewed: nursing HEART Score - HEART Score EKG: Non-specific Age: 45-65 Risk factors: > 3 risk factors or hx of atherosclerotic disease Troponin: Troponin T < 0.010 ng/mL (0.00-0.029) 01/29/21 17:20 - Critical Actions Critical Actions: 4-6 pts:12-16.6% risk of adverse cardiac event. Should be a dmitted Results - Labs CBC & Chem 7: 02/04/21 06:01 02/06/21 06:52 Labs: Laboratory Last Values WBC 4.8 K/mm3 (4.5-11.0) 02/04/21 06:01 RBC 4.91 M/mm3 (3.65-5.03) 02/04/21 06:01 Hgb 9.1 gm/dl (10.1-14.3) L 02/04/21 06:01 Hct 31.2 % (30.3-42.9) 02/04/21 06:01 MCV 63 fl (79-97) L 02/04/21 06:01 MCH 18 pg (28-32) L 02/04/21 06:01 MCHC 29 % (30-34) L 02/04/21 06:01 RDW 23.4 % (13.2-15.2) H 02/04/21 06:01 Plt Count 248 K/mm3 (140-440) 02/04/21 06:01 Lymph % (Auto) 6.6 % (13.4-35.0) L 02/02/21 08:30 [place] % (Auto) Foaming Machine Operator 02/04/21 06:01 Eos % (Auto) 4.3 % (0.0-4.3) 02/02/21 08:30 Baso % (Auto) 1.2 % (0.0-1.8) 02/02/21 08:30 Lymph # (Auto) 0.5 K/mm3 (1.2-5.4) L 02/02/21 08:30 [place] # (Auto) 0.8 K/mm3 (0.0-0.8) 02/02/21 08:30 Eos # (Auto) 0.3 K/mm3 (0.0-0.4) 02/02/21 08:30 Baso # (Auto) 0.1 K/mm3 (0.0-0.1) 02/02/21 08:30 Add Manual Diff Complete 02/04/21 06:01 Total Counted 100 02/04/21 06:01 Seg Neutrophils % 77.0 % (40.0-70.0) H 02/02/21 08:30 Seg Neuts % (Manual) 61.0 % (40.0-70.0) 02/04/21 06:01 Band Neutrophils % 1.0 % 02/04/21 06:01 Lymphocytes % (Manual) 16.0 % (13.4-35.0) 02/04/21 06:01 Monocytes % (Manual) 13.0 % (0.0-7.3) H 02/04/21 06:01 Eosinophils % (Manual) 9.0 % (0.0-4.3) H 02/04/21 06:01 Nucleated RBC % Not Reportable 02/04/21 06:01 Seg Neutrophils # 5.4 K/mm3 (1.8-7.7) 02/02/21 08:30 Seg Neutrophils # Man 2.9 K/mm3 (1.8-7.7) 02/04/21 06:01 Band Neutrophils # 0.0 K/mm3 02/04/21 06:01 Lymphocytes # (Manual) 0.8 K/mm3 (1.2-5.4) L 02/04/21 06:01 Abs React Lymphs (Man) 0.0 K/mm3 02/04/21 06:01 Monocytes # (Manual) 0.6 K/mm3 (0.0-0.8) 02/04/21 06:01 Eosinophils # (Manual) 0.4 K/mm3 (0.0-0.4) 02/04/21 06:01 Basophils # (Manual) 0.0 K/mm3 (0.0-0.1) 02/04/21 06:01 Metamyelocytes # 0.0 K/mm3 02/04/21 06:01 Myelocytes # 0.0 K/mm3 02/04/21 06:01 Promyelocytes # 0.0 K/mm3 02/04/21 06:01 Blast Cells # 0.0 K/mm3 02/04/21 06:01 WBC Morphology Not Reportable 02/04/21 06:01 Hypersegmented Neuts Not Reportable 02/04/21 06:01 Hyposegmented Neuts Not Reportable 02/04/21 06:01 Hypogranular Neuts Not Reportable 02/04/21 06:01 Smudge Cells Not Reportable 02/04/21 06:01 Toxic Granulation Not Reportable 02/04/21 06:01 Toxic Vacuolation Not Reportable 02/04/21 06:01 Dohle Bodies Not Reportable 02/04/21 06:01 Pelger-Huet Anomaly Not Reportable 02/04/21 06:01 Juan Rods Not Reportable 02/04/21 06:01 Platelet Estimate Not Reportable 02/04/21 06:01 Clumped Platelets Not Reportable 02/04/21 06:01 Plt Clumps, EDTA Not Reportable 02/04/21 06:01 Large Platelets Not Reportable 02/04/21 06:01 Giant Platelets Not Reportable 02/04/21 06:01 Platelet Satelliting Not Reportable 02/04/21 06:01 Plt Morphology Comment Not Reportable 02/04/21 06:01 RBC Morphology Not Reportable 02/04/21 06:01 Dimorphic RBCs Not Reportable 02/04/21 06:01 Polychromasia Not Reportable 02/04/21 06:01 Hypochromasia 2+ 02/04/21 06:01 Poikilocytosis 1+ 02/04/21 06:01 Anisocytosis 2+ 02/04/21 06:01 Microcytosis 2+ 02/04/21 06:01 Macrocytosis Not Reportable 02/04/21 06:01 Spherocytes Not Reportable 02/04/21 06:01 Pappenheimer Bodies Not Reportable 02/04/21 06:01 Sickle Cells Not Reportable 02/04/21 06:01 Target Cells Few 02/04/21 06:01 Tear Drop Cells Not Reportable 02/04/21 06:01 Ovalocytes Few 02/04/21 06:01 Helmet Cells Not Reportable 02/04/21 06:01 [place] Bodies Not Reportable 02/04/21 06:01 [place] Rings Not Reportable 02/04/21 06:01 Joanna Cells Not Reportable 02/04/21 06:01 Bite Cells Not Reportable 02/04/21 06:01 Crenated Cell Not Reportable 02/04/21 06:01 Elliptocytes Few 02/04/21 06:01 Acanthocytes (Spur) Not Reportable 02/04/21 06:01 Rouleaux Not Reportable 02/04/21 06:01 Hemoglobin C Crystals Not Reportable 02/04/21 06:01 Schistocytes Not Reportable 02/04/21 06:01 Malaria parasites Not Reportable 02/04/21 06:01 Didier Bodies Not Reportable 02/04/21 06:01 Hem Pathologist Commnt No 02/04/21 06:01 Sodium 140 mmol/L (137-145) 02/06/21 06:52 Potassium 3.4 mmol/L (3.6-5.0) L 02/06/21 06:52 Chloride 103.3 mmol/L (98-107) 02/06/21 06:52 Carbon Dioxide 31 mmol/L (22-30) H 02/06/21 06:52 Anion Gap 9 mmol/L 02/06/21 06:52 BUN 18 mg/dL (7-17) H 02/06/21 06:52 Creatinine 0.6 mg/dL (0.6-1.2) 02/06/21 06:52 Estimated GFR > 60 ml/min 02/06/21 06:52 BUN/Creatinine Ratio 30 % 02/06/21 06:52 Glucose 96 mg/dL (65-100) 02/06/21 06:52 POC Glucose 124 mg/dL (70-105) H 02/06/21 12:15 Calcium 8.9 mg/dL (8.4-10.2) 02/06/21 06:52 Phosphorus 3.50 mg/dL (2.5-4.5) 02/04/21 06:01 Magnesium 2.00 mg/dL (1.7-2.3) 02/04/21 06:01 Troponin T < 0.010 ng/mL (0.00-0.029) 01/29/21 17:20 NT-Pro-B Natriuret Pep 5954 pg/mL (0-900) H 01/29/21 17:20 Fabian/IV: Voiding Method External Female Catheter Active Medications - Current Medications Current Medications: Generic Name Dose Route Start Last Admin Trade Name Freq PRN Reason Stop Dose Admin Acetaminophen 650 mg 01/29/21 18:37 Acetaminophen 325 Mg Tab PO Q6H PRN Pain MILD(1-3)/Fever >100.5/ALAS Albuterol 2.5 mg 01/29/21 18:37 01/30/21 09:19 Albuterol 2.5 Mg/3 Ml Nebu IH 2.5 mg Q3HRT PRN Administration Shortness Of Breath Albuterol/Ipratropium 1 ampul 02/03/21 08:00 02/06/21 08:05 Ipratropium/Albuterol Sulfate 3 Ml Ampul.Neb IH 1 ampul TIDRT ANN MARIE Administration Amlodipine Besylate 10 mg 01/30/21 10:00 02/06/21 11:01 Amlodipine 10 Mg Tab PO 10 mg DAILY ANN MARIE Administration Aspirin 81 mg 01/30/21 10:00 02/06/21 11:02 Aspirin Ec 81 Mg Tab PO 81 mg QDAY ANN MARIE Administration Atorvastatin Calcium 40 mg 01/29/21 22:00 02/05/21 22:17 Atorvastatin 40 Mg Tab PO 40 mg QHS ANN MARIE Administration Budesonide 0.5 mg 01/29/21 20:00 02/06/21 08:05 Budesonide 0.5 Mg/2 Ml Nebu IH 0.5 mg Q12HRT ANN MARIE Administration Celecoxib 200 mg 01/30/21 10:00 02/06/21 11:01 Celecoxib 200 Mg Cap PO 200 mg DAILY ANN MARIE Administration Clonidine HCl 0.2 mg 01/29/21 22:00 02/06/21 11:01 Clonidine 0.2 Mg Tab PO 0.2 mg BID ANN MARIE Administration Clopidogrel Bisulfate 75 mg 01/30/21 10:00 02/06/21 11:01 Clopidogrel 75 Mg Tab PO 75 mg QDAY ANN MARIE Administration Dextrose 50 ml 01/29/21 19:15 Dextrose 50% In Water (25gm) 50 Ml Syringe IV Q30MIN PRN Hypoglycemia Protocol Famotidine 20 mg 01/29/21 22:00 02/06/21 11:01 Famotidine 20 Mg Tab PO 20 mg BID ANN MARIE Administration Ferrous Sulfate 325 mg 01/29/21 22:00 02/05/21 22:17 Ferrous Sulfate 325 Mg Tab PO 325 mg BID ANN MARIE Administration Fluoxetine HCl 20 mg 01/30/21 10:00 02/06/21 11:01 Fluoxetine 20 Mg Cap PO 20 mg QDAY ANN MARIE Administration Furosemide 40 mg 02/05/21 06:00 02/06/21 05:19 Furosemide 40 Mg Tab PO 40 mg 0600,1800 ANN MARIE Administration Heparin Sodium (Porcine) 5,000 unit 01/29/21 22:00 02/06/21 11:01 Heparin 5,000 Unit/1 Ml Vial SUB-Q 5,000 unit Q12HR ANN MARIE Administration Hydralazine HCl 100 mg 01/29/21 22:00 02/06/21 05:39 Hydralazine 100 Mg Tab PO 100 mg Q8HR ANN MARIE Administration Hydralazine HCl 10 mg 01/30/21 06:56 Hydralazine 20 Mg/1 Ml Inj IV Q4HR PRN systolic greater than 160 Hydromorphone HCl 0.5 mg 01/29/21 18:37 02/04/21 21:51 Hydromorphone 1 Mg/1 Ml Inj IV 0.5 mg Q24H PRN Administration Pain , Severe (7-10) Hydroxyzine Pamoate 25 mg 01/29/21 19:13 01/29/21 20:51 Hydroxyzine Pamoate 25 Mg Cap PO 25 mg BID PRN Administration Anxiety Insulin Human Lispro 0 unit 01/30/21 00:00 02/06/21 05:38 Insulin Lispro 100 Unit/Ml SUB-Q Not Given Q6HR [facility] Protocol Isosorbide Mononitrate 60 mg 01/30/21 10:00 02/06/21 11:00 Isosorbide Mononitrate Er 60 Mg Tab PO 60 mg QDAY ANN MARIE Administration Metoprolol Tartrate 50 mg 01/29/21 22:00 02/06/21 11:01 Metoprolol Tartrate 50 Mg Tab PO 50 mg BID ANN MARIE Administration Mirtazapine 7.5 mg 01/29/21 22:00 02/05/21 22:17 Mirtazapine 15 Mg Tab PO 7.5 mg QHS ANN MARIE Administration Oxycodone/Acetaminophen 1 tab 01/29/21 18:37 02/05/21 22:23 Oxycodone /Acetaminophen 5-325mg Tab PO 1 tab Q12H PRN Administration Pain, Moderate (4-6) Potassium Chloride 40 meq 02/06/21 12:44 Potassium Chloride Er 20 Meq Tab PO 02/06/21 12:45 ONCE ONE Sodium Chloride 10 ml 01/29/21 22:00 02/06/21 11:02 Sodium Chloride 0.9% 10 Ml Flush Syringe IV 10 ml BID ANN MARIE Administration Sodium Chloride 10 ml 01/29/21 18:37 Sodium Chloride 0.9% 10 Ml Flush Syringe IV PRN PRN LINE FLUSH Valsartan 160 mg 02/01/21 10:00 02/06/21 11:02 Valsartan 160mg Tab PO 160 mg DAILY ANN MARIE Administration Venlafaxine HCl 25 mg 01/30/21 10:00 02/06/21 11:00 Venlafaxine 25 Mg Tab PO 25 mg DAILY ANN MARIE Administration Nutrition/Malnutrition Assess - Dietary Evaluation Nutrition/Malnutrition Findings: Nutrition Notes Start: 02/03/21 13:37 Freq: Status: Active Protocol: Document 02/03/21 13:37 CHELEALL (Rec: 02/03/21 14:07 CAALL [id number]) Nutrition Notes Need for Assessment generated from: LOS Initial or Follow up Brief Note Current Diagnosis Hypertension Other Pertinent Diagnosis CHF exacerbation Current Diet Low sodium + 1.5L fluid restriction Minimum of two criteria No Nutrition Intervention Revisit per MD consult or patient Sign Off request: - Attestation Statement I have reviewed and agreed w/ Malnutrition eval & tx plan: Yes
[2021-02-06] MEDS ORDERED: POTASSIUM CHLORIDE ER 20 MEQ TAB PO NR (13:30)
[2021-02-06] MEDS: HYDROmorphone 1 MG/1 ML INJ IV PRN (21:14)
[2021-02-06] MEDS: MIRTAZAPINE 15 MG TAB PO SCH (21:14)
[2021-02-07] MEDS: INSULIN LISPRO 100 UNIT/ML SUB-Q SCH ×2 (01:42→07:03)
[2021-02-07] MEDS: hydrALAZINE 100 MG TAB PO SCH (05:11)
[2021-02-07] MEDS: FUROSEMIDE 40 MG TAB PO SCH (05:11)
[2021-02-07 07:45] VITALS: BP 151/67
[2021-02-07] MEDS: IPRATROPIUM/ALBUTEROL SULFATE 3 ML AMPUL.NEB IH SCH (08:53)
[2021-02-07] MEDS: BUDESONIDE 0.5 MG/2 ML NEBU IH SCH (08:53)
[2021-02-07] MEDS: METOPROLOL TARTRATE 50 MG TAB PO SCH (10:22)
[2021-02-07] MEDS: CELECOXIB 200 MG CAP PO SCH (10:22)
[2021-02-07] MEDS: FLUoxetine 20 MG CAP PO SCH (10:22)
[2021-02-07] MEDS: VENLAFAXINE 25 MG TAB PO SCH (10:22)
[2021-02-07] MEDS: VALSARTAN 160MG TAB PO SCH (10:22)
[2021-02-07] MEDS: cloNIDine 0.2 MG TAB PO SCH (10:22)
[2021-02-07] MEDS: HEPARIN 5,000 UNIT/1 ML VIAL SUB-Q SCH (10:22)
[2021-02-07] MEDS: oxyCODONE /ACETAMINOPHEN 5-325MG TAB PO PRN (10:23)
[2021-02-07] MEDS: FERROUS SULFATE 325 MG TAB PO SCH (10:23)
[2021-02-07] MEDS: amLODIPine 10 MG TAB PO SCH (10:23)
[2021-02-07] MEDS: FAMOTIDINE 20 MG TAB PO SCH (10:23)
[2021-02-07] MEDS: CLOPIDOGREL 75 MG TAB PO SCH (10:23)
[2021-02-07] MEDS: ASPIRIN EC 81 MG TAB PO SCH (10:23)
--- NOTE | 2021-02-07 11:21 | Discharge Summary ---
Providers - Providers Date of Admission: 01/29/21 18:37 Attending physician: DENISE ROUSE MD 01/31/21 08:18 Physical Therapy Evaluation and Treat [CONS] Routine Comment: Reason For Exam: Difficulty with ambulation 01/31/21 13:27 Consult to Physician [CONS] Routine Comment: Consulting Provider: MAGGI ROBERTS Physician Instructions: Reason For Exam: Acute on chronic HF Primary care physician: ZONING ENGINEER Hospitalization Reason for admission: Shortness of breath and chest pain Condition: Stable Hospital course: 60-year-old female history of hypertension/coronary artery disease/COPD, and chronic respiratory failure on home oxygen who presented with shortness of breath and chest pain. She was admitted for malignant hypertension and treatment of acute CHF exacerbation. Nitro glycerin drip was started and later discontinued. IV Lasix was started for diuresis. Cardiology was consulted as well. Patient symptoms improved over time. Her medications were optimized and she was discharged home on 02/07/2021 with recommendations to follow-up with cardiology. Disposition: 01 HOME / SELF CARE / HOMELESS Final Discharge Diagnosis (Prints w/discharge instructions): Acute on chronic heart failure exacerbation. Malignant hypertension Time spent for discharge: 20-minute Core Measure Documentation - Palliative Care Palliative Care/ Comfort Measures: Not Applicable - Core Measures Any of the following diagnoses?: none Exam - Physical Exam Narrative exam: GENERAL: Elderly woman. Sitting on the side of the bed in no acute distress. HEENT: Normocephalic. Atraumatic. CHEST/LUNGS: CTAB on room air HEART/CARDIOVASCULAR: RRR. No murmur, rubs or gallops appreciated. ABDOMEN: +BS. NT/ND. NEURO: No focal motor deficit. EXTREMITIES: No cyanosis, clubbing or edema. PSYCH: Cooperative. - Constitutional Vitals: Temp Pulse Resp BP Pulse Ox 97.8 F 70 18 151/67 98 02/07/21 07:27 02/07/21 08:53 02/07/21 08:53 02/07/21 07:27 02/07/21 09:25 Plan Care Plan Goals: Patient should follow-up with PCP and cardiology on designated dates. Health Concerns: Patient should return back to the hospital if she experiences chest pain/chest pressure, shortness of breath, worsening swelling inability to lay down flat on back or decline in function. Follow up with: PRIMARY CAREMD [Primary Care Provider] - 3-5 Days MAGGI ROBERTS MD [Staff Physician] - 02/27/21 9:30 am Prescriptions: AtorvaSTATin [Lipitor] 40 mg PO QHS #90 tablet Famotidine [Acid-Pep] 20 mg PO DAILY 90 Days #90 tablet amLODIPine 10 mg PO DAILY #90 tab hydrALAZINE [Apresoline TAB] 100 mg PO Q8HR #90 tab Mometasone Furoate [Asmanex Hfa] 13 gm IH DAILY #90 hfa.aer.ad cloNIDine [Catapres] 0.2 mg PO BID 90 Days Celecoxib [celeBREX] 200 mg PO DAILY #60 cap Valsartan [Diovan] 160 mg PO DAILY #90 tablet ISOSORBIDE MONOnitrate [Imdur ER] 60 mg PO QDAY #90 tablet ISOSORBIDE MONOnitrate [Imdur ER] 60 mg PO QDAY #30 tablet Furosemide [Lasix TAB] 40 mg PO BID #90 tablet Metoprolol [Lopressor TAB] 50 mg PO BID #90 tablet NIFEdipine [Nifedipine ER] 30 mg PO DAILY #90 tablet.er Clopidogrel [Plavix] 75 mg PO QWEEK 90 Days
== END 2021-02-07 14:35 | disposition home health service (06) | DRG 291 ==
LOC: ED 15:24 → CC1 18:37 → 4A 01-30 08:17
PROVIDERS: ADMIT Internal Medicine; ATTEND Student in an Organized Health Care Education/Training Program
DX: I11.0 Hypertensive heart disease with heart failure (principal); J96.21 Acute and chronic respiratory failure with hypoxia; E66.2 Morbid (severe) obesity with alveolar hypoventilation; Z68.42 Body mass index [BMI] 45.0-49.9, adult; I16.1 Hypertensive emergency; I50.43 Acute on chronic combined systolic (congestive) and diastolic (congestive) heart failure; Z88.0 Allergy status to penicillin; Z20.822 Contact with and (suspected) exposure to COVID-19; Z79.4 Long term (current) use of insulin; Z79.82 Long term (current) use of aspirin; J44.9 Chronic obstructive pulmonary disease, unspecified; I25.10 Atherosclerotic heart disease of native coronary artery without angina pectoris; M19.90 Unspecified osteoarthritis, unspecified site; Z90.710 Acquired absence of both cervix and uterus; Z82.49 Family history of ischemic heart disease and other diseases of the circulatory system; I25.2 Old myocardial infarction; F17.200 Nicotine dependence, unspecified, uncomplicated; I42.9 Cardiomyopathy, unspecified
CPT/HCPCS: 36415; 71045; 80048; 82962; 83735; 83880; 84100; 84484; 85007; 85025; 85027; 93005; 94640; 94760; 99406; G0378; J1170; J1644; J1940; Q0177; U0003

== ENCOUNTER 2021-08-03 01:28 | Inpatient (IN) | payer BC ==
[2021-08-03] MEDS ORDERED: IPRATROPIUM 0.02% NEBU 2.5 ML IH ONE ×2 (01:35→04:29)
[2021-08-03] MEDS ORDERED: ALBUTEROL 2.5 MG/3 ML NEBU IH ONE (01:35)
[2021-08-03] MEDS ORDERED: FUROSEMIDE 40 MG/4 ML INJ IV ONE (01:35)
[2021-08-03 02:00] LABS: Basophils # (Auto) 0.1 K/mm3 (0.0-0.1); Basophils % (Auto) 2.1 % (0.0-1.8); Eosinophils # (Auto) 0.4 K/mm3 (0.0-0.4); Eosinophils % (Auto) 7.1 % (0.0-4.3); Lymphocytes # (Auto) 0.7 K/mm3 (1.2-5.4); Lymphocytes % (Auto) 10.9 % (13.4-35.0); Mean Corpuscular HGB Conc 29 % (30-34); Mean Corpuscular Volume 70 fl (79-97); Monocytes # (Auto) 0.7 K/mm3 (0.0-0.8); Monocytes % (Auto) 11.1 % (0.0-7.3); Platelet Count 267 K/mm3 (140-440); Red Blood Count 5.44 M/mm3 (3.65-5.03)
[2021-08-03 02:02] LABS: Hematocrit 38.2 % (30.3-42.9); Hemoglobin 11.2 gm/dl (10.1-14.3); Red Cell Distribution Width 20.9 % (13.2-15.2)
--- NOTE | 2021-08-03 02:07 | XRay Report ---
CHEST 1 VIEW 08/03/2021 1:48 AM INDICATION / CLINICAL INFORMATION: Dyspnea. COMPARISON: 03/25/21. FINDINGS: SUPPORT DEVICES: None. HEART / MEDIASTINUM: There is moderate generalized cardiomegaly with prominence of the central pulmon lior vessels. LUNGS / PLEURA: There is moderate diffuse interstitial lung disease, right greater than left, which h as shown mild increase. No definite pleural effusion. No pneumothorax. ADDITIONAL FINDINGS: No significant additional findings. IMPRESSION: Cardiomegaly and mild to moderate congestive heart failure. Signer Name: Prashanth Cantrell MD Signed: 08/03/2021 2:02 AM Workstation Name: [id number]
[2021-08-03 02:09] LABS: INR 1.01 (0.87-1.13)
[2021-08-03 02:17] LABS: Creatine Kinase MB 3.3 ng/mL (0.0-4.0)
[2021-08-03 02:18] LABS: Alanine Aminotransferase 23 units/L (7-56); Albumin 3.7 g/dL (3.9-5); BUN/Creatinine Ratio 26; Blood Urea Nitrogen 23 mg/dL (7-17); Calcium 8.7 mg/dL (8.4-10.2); Hemolysis Index 38
[2021-08-03] MEDS ORDERED: MORPHINE 2 MG/1 ML INJ IV ONE (02:54)
[2021-08-03] MEDS ORDERED: NITROGLYCERIN DRIP 50 MG/250 ML BOTTLE IV SCH (03:00)
--- NOTE | 2021-08-03 04:06 | Emergency Department Report ---
ED General Adult HPI - General Chief complaint: High BP Stated complaint: SANDOVAL, CHEST PAIN Time Seen by Provider: 08/03/21 01:34 Source: patient, EMS Mode of arrival: Stretcher Limitations: No Limitations - History of Present Illness Initial comments: SANDOVAL x 3 days and htn. lillian'ts bp on scene was 250/148. pt is 61 yars old with HTN diabetes chf and copd , on 4 litres of NC at home , started having SOB 3 days ago got worse today . denies any chest pain or fever or cough , also noticed increased swelling in her legs -: Gradual, days(s) Location: chest Severity scale (0 -10): 8 - Related Data Home Medications Medication Instructions Recorded Confirmed Last Taken Albuterol Mdi (or & Nicu Only) 1 puff IH QDAY PRN 03/27/21 03/27/21 03/24/21 [ProAir HFA Inhaler] [place] Oil Caps 725 mg PO QDAY 03/27/21 03/27/21 Unknown Citalopram [celeXA] 20 mg PO QDAY 03/27/21 03/27/21 02/24/21 Multivit-Min36/Iron/Folic Acid 1 each PO QDAY 03/27/21 03/27/21 03/24/21 [Geritol Complete Tablet] NIFEdipine [Adalat cc] 30 mg PO QDAY 03/27/21 03/27/21 03/24/21 Previous Rx's Medication Instructions Recorded Last Taken Type Aspirin EC [Halfprin EC] 81 mg PO QDAY #30 tablet 10/09/19 03/24/21 Rx Mirtazapine 7.5 mg PO QHS #30 tablet 09/19/20 12/26/20 Rx hydrOXYzine PAMOATE [Vistaril] 25 mg PO BID PRN #60 capsule 09/19/20 03/24/21 Rx AtorvaSTATin [Lipitor] 40 mg PO QHS #90 tablet 02/04/21 03/24/21 Rx Celecoxib [celeBREX] 200 mg PO DAILY #60 cap 02/04/21 03/10/21 Rx Clopidogrel [Plavix] 75 mg PO QWEEK 90 Days 02/04/21 03/24/21 Rx Famotidine [Acid-Pep] 20 mg PO DAILY 90 Days #90 tablet 02/04/21 03/20/21 Rx Furosemide [Lasix TAB] 40 mg PO BID #90 tablet 02/04/21 Unknown Rx ISOSORBIDE MONOnitrate [Imdur ER] 60 mg PO QDAY #30 tablet 02/04/21 Unknown Rx Metoprolol [Lopressor TAB] 50 mg PO BID #90 tablet 02/04/21 Unknown Rx Mometasone Furoate [Asmanex Hfa] 13 gm IH DAILY #90 hfa.aer.ad 02/04/21 Unknown Rx cloNIDine [Catapres] 0.2 mg PO BID 90 Days 02/04/21 Unknown Rx hydrALAZINE [Apresoline TAB] 100 mg PO Q8HR #90 tab 02/04/21 03/24/21 Rx Allergies Allergy/AdvReac Type Severity Reaction Status Date / Time Penicillins Allergy Severe GO INTO Verified 03/27/21 15:56 SHOCK ED Review of Systems ROS: Stated complaint: SANDOVAL, CHEST PAIN Other details as noted in HPI Constitutional: denies: chills, fever Eyes: denies: eye pain, eye discharge, vision change ENT: denies: ear pain, throat pain Respiratory: denies: cough, shortness of breath, wheezing Cardiovascular: denies: chest pain, palpitations Endocrine: no symptoms reported Gastrointestinal: denies: abdominal pain, nausea, diarrhea Genitourinary: denies: urgency, dysuria, discharge Musculoskeletal: denies: back pain, joint swelling, arthralgia Skin: denies: rash, lesions Neurological: denies: headache, weakness, paresthesias Psychiatric: denies: anxiety, depression Hematological/Lymphatic: denies: easy bleeding, easy bruising ED Past Medical Hx - Past Medical History Previous Medical History?: Yes Hx Hypertension: Yes Hx Heart Attack/AMI: Yes Hx Congestive Heart Failure: Yes Hx Diabetes: Yes Hx Deep Vein Thrombosis: Yes (left leg) Hx Pulmonary Embolism: No Hx Liver Disease: No Hx Sickle Cell Disease: No Hx Arthritis: Yes Hx Asthma: No Hx COPD: Yes Hx Tuberculosis: No Hx HIV: No Additional medical history: CAD - Surgical History Past Surgical History?: Yes Hx Coronary Stent: Yes Hx Pacemaker: No Hx Internal Defibrillator: No Hx Cholecystectomy: Yes Hx Appendectomy: Yes Additional Surgical History: HYSTERECTOMY. TONSILLECTOMY - Social History Smoking Status: Never Smoker - Medications Home Medications: Home Medications Medication Instructions Recorded Confirmed Last Taken Type Aspirin EC [Halfprin EC] 81 mg PO QDAY #30 tablet 10/09/19 03/27/21 03/24/21 Rx Mirtazapine 7.5 mg PO QHS #30 tablet 09/19/20 03/27/21 12/26/20 Rx hydrOXYzine PAMOATE [Vistaril] 25 mg PO BID PRN #60 capsule 09/19/20 03/27/21 03/24/21 Rx AtorvaSTATin [Lipitor] 40 mg PO QHS #90 tablet 02/04/21 03/27/21 03/24/21 Rx Celecoxib [celeBREX] 200 mg PO DAILY #60 cap 02/04/21 03/27/21 03/10/21 Rx Clopidogrel [Plavix] 75 mg PO QWEEK 90 Days 02/04/21 03/27/21 03/24/21 Rx Famotidine [Acid-Pep] 20 mg PO DAILY 90 Days #90 tablet 02/04/21 03/27/21 03/20/21 Rx Furosemide [Lasix TAB] 40 mg PO BID #90 tablet 02/04/21 03/25/21 Unknown Rx ISOSORBIDE MONOnitrate [Imdur ER] 60 mg PO QDAY #30 tablet 02/04/21 03/25/21 Unknown Rx Metoprolol [Lopressor TAB] 50 mg PO BID #90 tablet 02/04/21 03/25/21 Unknown Rx Mometasone Furoate [Asmanex Hfa] 13 gm IH DAILY #90 hfa.aer.ad 02/04/21 03/25/21 Unknown Rx cloNIDine [Catapres] 0.2 mg PO BID 90 Days 02/04/21 03/25/21 Unknown Rx hydrALAZINE [Apresoline TAB] 100 mg PO Q8HR #90 tab 02/04/21 03/27/21 03/24/21 Rx Albuterol Mdi (or & Nicu Only) 1 puff IH QDAY PRN 03/27/21 03/27/21 03/24/21 History [ProAir HFA Inhaler] [place] Oil Caps 725 mg PO QDAY 03/27/21 03/27/21 Unknown History Citalopram [celeXA] 20 mg PO QDAY 03/27/21 03/27/21 02/24/21 History Multivit-Min36/Iron/Folic Acid 1 each PO QDAY 03/27/21 03/27/21 03/24/21 History [Geritol Complete Tablet] NIFEdipine [Adalat cc] 30 mg PO QDAY 03/27/21 03/27/21 03/24/21 History ED Physical Exam - General Limitations: No Limitations General appearance: alert, in distress, obese - Head Head exam: Present: atraumatic, normocephalic - Eye Eye exam: Present: normal appearance - ENT ENT exam: Present: mucous membranes moist - Neck Neck exam: Present: normal inspection - Respiratory Respiratory exam: Present: rales, accessory muscle use, decreased breath sounds. Absent: respiratory distress - Cardiovascular Cardiovascular Exam: Present: normal rhythm, tachycardia. Absent: systolic murmur, diastolic murmur, rubs, gallop - GI/Abdominal GI/Abdominal exam: Present: soft, normal bowel sounds - Extremities Exam Extremities exam: Present: normal inspection, pedal edema - Back Exam Back exam: Present: normal inspection - Neurological Exam Neurological exam: Present: alert, oriented X3 - Psychiatric Psychiatric exam: Present: normal affect, normal mood - Skin Skin exam: Present: warm, dry, intact, normal color. Absent: rash ED Medical Decision Making - Lab Data Result diagrams: 08/03/21 01:39 08/03/21 01:39 - Radiology Data Radiology results: report reviewed, image reviewed - Medical Decision Making pt was placed on 4 litres on arrival , lasix nitro and rt given , BP is elevated , BNP is 7000 , cxr showed CHF exacerbation , will admit for pulmonary edema and CHF Critical Care Time: Yes Critical care time in (mins) excluding proc time.: 55 Critical care attestation.: If time is entered above; I have spent that time in minutes in the direct care of this critically ill patient, excluding procedure time. Critical Care Time: 55 ED Disposition Clinical Impression: Acute on chronic systolic (congestive) heart failure, CHF (congestive heart failure), Hypertensive emergency, COPD exacerbation Disposition: ADMITTED INPATIENT Is pt being admited?: Yes Does the pt Need Aspirin: No Condition: Critical Instructions: Hypertension (ED), Chronic Obstructive Pulmonary Disease (ED) Referrals: PRIMARY CARE, [Primary Care Provider] - 3-5 Days
[2021-08-03] MEDS ORDERED: ONDANSETRON 4 MG/2 ML INJ IV PRN (05:44)
[2021-08-03] MEDS ORDERED: ACETAMINOPHEN 325 MG TAB PO PRN (05:44)
[2021-08-03] MEDS ORDERED: hydrOXYzine PAMOATE 25 MG CAP PO PRN (05:48)
--- NOTE | 2021-08-03 05:56 | History and Physical Report ---
History of Present Illness Date of examination: 08/03/21 Date of admission: 08/03/21 Chief complaint: Uncontrolled high blood pressure History of present illness: 61 years old female with past medical history of congestive heart failure, hypertension, COPD, diabetes on 4 L of oxygen at home was brought to the hospital because of progressive shortness of breath for the last 3 days. Patient denies any chest pain or cough but patient complain increased swelling on the both legs. Subsequently patient was brought to the ER in the ER patient is found to have acute CHF exacerbation. Patient BNP is 7147. Chest x-ray shows cardiomegaly and mild to moderate congestive heart failure. Also patient blood pressure is 250/148 we will going to admit the patient to the ICU. We put the patient on CHF pathway also put on nitro drip. Will consult cardiology for evaluation Past History Past Medical History: acute PA, arthritis, COPD, diabetes, DVT, heart failure, hypertension Past Surgical History: appendectomy (Coronary stent), cholecystectomy, hysterectomy, tonsillectomy, Other Social history: other (no smoking) Family history: no significant family history Medications and Allergies Allergies Allergy/AdvReac Type Severity Reaction Status Date / Time Penicillins Allergy Severe GO INTO Verified 03/27/21 15:56 SHOCK Home Medications Medication Instructions Recorded Confirmed Last Taken Type Aspirin EC [Halfprin EC] 81 mg PO QDAY #30 tablet 10/09/19 03/27/21 03/24/21 Rx Mirtazapine 7.5 mg PO QHS #30 tablet 09/19/20 03/27/21 12/26/20 Rx hydrOXYzine PAMOATE [Vistaril] 25 mg PO BID PRN #60 capsule 09/19/20 03/27/21 03/24/21 Rx AtorvaSTATin [Lipitor] 40 mg PO QHS #90 tablet 02/04/21 03/27/21 03/24/21 Rx Celecoxib [celeBREX] 200 mg PO DAILY #60 cap 02/04/21 03/27/21 03/10/21 Rx Clopidogrel [Plavix] 75 mg PO QWEEK 90 Days 02/04/21 03/27/21 03/24/21 Rx Famotidine [Acid-Pep] 20 mg PO DAILY 90 Days #90 tablet 02/04/21 03/27/21 03/20/21 Rx Furosemide [Lasix TAB] 40 mg PO BID #90 tablet 02/04/21 03/25/21 Unknown Rx ISOSORBIDE MONOnitrate [Imdur ER] 60 mg PO QDAY #30 tablet 02/04/21 03/25/21 Unknown Rx Metoprolol [Lopressor TAB] 50 mg PO BID #90 tablet 02/04/21 03/25/21 Unknown Rx Mometasone Furoate [Asmanex Hfa] 13 gm IH DAILY #90 hfa.aer.ad 02/04/21 03/25/21 Unknown Rx cloNIDine [Catapres] 0.2 mg PO BID 90 Days 02/04/21 03/25/21 Unknown Rx hydrALAZINE [Apresoline TAB] 100 mg PO Q8HR #90 tab 02/04/21 03/27/21 03/24/21 Rx Albuterol Mdi (or & Nicu Only) 1 puff IH QDAY PRN 03/27/21 03/27/21 03/24/21 History [ProAir HFA Inhaler] [place] Oil Caps 725 mg PO QDAY 03/27/21 03/27/21 Unknown History Citalopram [celeXA] 20 mg PO QDAY 03/27/21 03/27/21 02/24/21 History Multivit-Min36/Iron/Folic Acid 1 each PO QDAY 03/27/21 03/27/21 03/24/21 History [Geritol Complete Tablet] NIFEdipine [Adalat cc] 30 mg PO QDAY 03/27/21 03/27/21 03/24/21 History Active Meds: Active Medications Acetaminophen (Acetaminophen 325 Mg Tab) 650 mg PO Q4H PRN PRN Reason: Pain MILD(1-3)/Fever >100.5/ALAS Albuterol (Albuterol 2.5 Mg/3 Ml Nebu) 2.5 mg IH Q3HRT PRN PRN Reason: Shortness Of Breath Albuterol/Ipratropium (Ipratropium/Albuterol Sulfate 3 Ml Ampul.Neb) 1 ampul IH Q6HRT ANN MARIE Aspirin (Aspirin Ec 81 Mg Tab) 81 mg PO QDAY ANN MARIE Atorvastatin Calcium (Atorvastatin 40 Mg Tab) 40 mg PO QHS ANN MARIE Celecoxib (Celecoxib 200 Mg Cap) 200 mg PO DAILY ANN MARIE Citalopram Hydrobromide (Citalopram 20 Mg Tab) 20 mg PO QDAY ANN MARIE Clonidine HCl (Clonidine 0.2 Mg Tab) 0.2 mg PO BID [facility] Clopidogrel Bisulfate (Clopidogrel 75 Mg Tab) 75 mg PO QWEEK [facility] Famotidine (Famotidine 20 Mg/2 Ml Inj) 20 mg IV BID [facility] Furosemide (Furosemide 40 Mg/4 Ml Inj) 40 mg IV BID@0600,1800 [facility] Hydralazine HCl (Hydralazine 100 Mg Tab) 100 mg PO Q8HR [facility] Hydromorphone HCl (Hydromorphone 1 Mg/1 Ml Inj) 0.5 mg IV Q3H PRN PRN Reason: Pain , Severe (7-10) Hydroxyzine Pamoate (Hydroxyzine Pamoate 25 Mg Cap) 25 mg PO BID PRN PRN Reason: Anxiety Nitroglycerin/Dextrose (Tridil Drip 50mg/250ml) 50 mg in 250 mls @ 3 mls/hr IV TITR [facility]; Protocol Last Admin: 08/03/21 05:03 Dose: 10 mcg/min, 3 mls/hr Isosorbide Mononitrate (Isosorbide Mononitrate Er 60 Mg Tab) 60 mg PO QDAY [facility] Methylprednisolone Sodium Succinate (Methylprednisolone Sod Succinate 40 Mg/1 Ml Inj) 40 mg IV QDAY [facility] Metoprolol Tartrate (Metoprolol Tartrate 50 Mg Tab) 50 mg PO BID [facility] Miscellaneous Medication (Mometasone Furoate [Asmanex Hfa]) 13 gm IH DAILY [facility] Miscellaneous Medication (Nifedipine [Adalat Cc]) 30 mg PO QDAY [facility] Montelukast Sodium (Montelukast 10 Mg Tab) 10 mg PO QHS [facility] Morphine Sulfate (Morphine 2 Mg/1 Ml Inj) 2 mg IV Q4H PRN PRN Reason: Pain, Moderate (4-6) Ondansetron HCl (Ondansetron 4 Mg/2 Ml Inj) 4 mg IV Q8H PRN PRN Reason: Nausea And Vomiting Sodium Chloride (Sodium Chloride 0.9% 10 Ml Flush Syringe) 10 ml IV BID [facility] Sodium Chloride (Sodium Chloride 0.9% 10 Ml Flush Syringe) 10 ml IV PRN PRN PRN Reason: LINE FLUSH Review of Systems All systems: negative Cardiovascular: chest pain, orthopnea, edema, shortness of breath, dyspnea on exertion Respiratory: shortness of breath, dyspnea on exertion Exam - Constitutional Vitals: Temp Pulse Resp BP Pulse Ox 70 18 08/03/21 04:32 08/03/21 04:32 General appearance: Present: severe distress - EENT Eyes: Present: PERRL ENT: hearing intact, clear oral mucosa - Neck Neck: Present: supple, normal ROM - Respiratory Respiratory effort: normal Respiratory: bilateral: rales - Cardiovascular Heart Sounds: Present: S1 & S2. Absent: rub, click - Extremities Extremities: pulses symmetrical, No edema Extremity abnormal: edema Peripheral Pulses: within normal limits - Abdominal General gastrointestinal: Present: soft, non-tender, non-distended, normal bowel sounds Female genitourinary: Present: normal - Integumentary Integumentary: Present: clear, warm, dry - Musculoskeletal Musculoskeletal: gait normal, strength equal bilaterally - Psychiatric Psychiatric: appropriate mood/affect, intact judgment & insight - Neurologic Neurologic: CNII-XII intact, moves all extremities HEART Score - HEART Score Troponin: Troponin T < 0.010 ng/mL (0.00-0.029) 08/03/21 01:39 Results - Labs CBC & Chem 7: 08/03/21 01:39 08/03/21 01:39 Labs: Laboratory Last Values WBC 6.3 K/mm3 (4.5-11.0) 08/03/21 01:39 RBC 5.44 M/mm3 (3.65-5.03) H 08/03/21 01:39 Hgb 11.2 gm/dl (10.1-14.3) 08/03/21 01:39 Hct 38.2 % (30.3-42.9) 08/03/21 01:39 MCV 70 fl (79-97) L 08/03/21 01:39 MCH 21 pg (28-32) L 08/03/21 01:39 MCHC 29 % (30-34) L 08/03/21 01:39 RDW 20.9 % (13.2-15.2) H 08/03/21 01:39 Plt Count 267 K/mm3 (140-440) 08/03/21 01:39 Lymph % (Auto) 10.9 % (13.4-35.0) L 08/03/21 01:39 [place] % (Auto) 11.1 % (0.0-7.3) H 08/03/21 01:39 Eos % (Auto) 7.1 % (0.0-4.3) H 08/03/21 01:39 Baso % (Auto) 2.1 % (0.0-1.8) H 08/03/21 01:39 Lymph # (Auto) 0.7 K/mm3 (1.2-5.4) L 08/03/21 01:39 [place] # (Auto) 0.7 K/mm3 (0.0-0.8) 08/03/21 01:39 Eos # (Auto) 0.4 K/mm3 (0.0-0.4) 08/03/21 01:39 Baso # (Auto) 0.1 K/mm3 (0.0-0.1) 08/03/21 01:39 Seg Neutrophils % 68.8 % (40.0-70.0) 08/03/21 01:39 Seg Neutrophils # 4.3 K/mm3 (1.8-7.7) 08/03/21 01:39 PT 14.4 Sec. (12.2-14.9) 08/03/21 01:39 INR 1.01 (0.87-1.13) 08/03/21 01:39 Sodium 140 mmol/L (137-145) 08/03/21 01:39 Potassium 4.0 mmol/L (3.6-5.0) 08/03/21 01:39 Chloride 107.2 mmol/L (98-107) H 08/03/21 01:39 Carbon Dioxide 18 mmol/L (22-30) L 08/03/21 01:39 Anion Gap 19 mmol/L 08/03/21 01:39 BUN 23 mg/dL (7-17) H 08/03/21 01:39 Creatinine 0.9 mg/dL (0.6-1.2) 08/03/21 01:39 Estimated GFR > 60 ml/min 08/03/21 01:39 BUN/Creatinine Ratio 26 % 08/03/21 01:39 Glucose 127 mg/dL (65-100) H 08/03/21 01:39 Calcium 8.7 mg/dL (8.4-10.2) 08/03/21 01:39 Total Bilirubin 0.30 mg/dL (0.1-1.2) 08/03/21 01:39 AST 19 units/L (5-40) 08/03/21 01:39 ALT 23 units/L (7-56) 08/03/21 01:39 Alkaline Phosphatase 176 units/L (35-129) H 08/03/21 01:39 Total Creatine Kinase 57 units/L (30-135) 08/03/21 01:39 CK-MB (CK-2) 3.3 ng/mL (0.0-4.0) 08/03/21 01:39 CK-MB (CK-2) Rel Index 5.7 (0-4) H 08/03/21 01:39 Troponin T < 0.010 ng/mL (0.00-0.029) 08/03/21 01:39 NT-Pro-B Natriuret Pep 7147 pg/mL (0-900) H 08/03/21 01:39 Total Protein 7.6 g/dL (6.3-8.2) 08/03/21 01:39 Albumin 3.7 g/dL (3.9-5) L 08/03/21 01:39 Albumin/Globulin Ratio 0.9 % 08/03/21 01:39 Lipase 23 units/L (13-60) 08/03/21 01:39 - Imaging and Cardiology Chest x-ray: report reviewed Assessment and Plan VTE prophylaxis?: Mechanical Plan of care discussed with patient/family: Yes - Patient Problems (1) Acute on chronic systolic (congestive) heart failure Current Visit: Yes Status: Acute Plan to address problem: Admit the patient to the medical ICU. Cardiac diet. Lasix 40 mg IV every 12 hours. Fluid restriction. Maintain input output. Daily weight. Echocardiogram. Cardiology evaluation. Critical care evaluation (2) COPD exacerbation Current Visit: Yes Status: Acute Plan to address problem: Oxygen via nasal cannula 3 L/min. DuoNeb by nebulizer every 4 hours. Albuterol via nebulizer every 4 hours as needed. Solu-Medrol 40 mg IV daily. Critical care evaluation (3) Hypertensive emergency Current Visit: Yes Status: Acute Plan to address problem: Patient is on nitro drip. We will continue the other home blood pressure med ication. Cardiology evaluation (4) Chest pain Current Visit: No Status: Acute Qualifiers: Chest pain type: unspecified Qualified Code(s): R07.9 - Chest pain, unspecified Plan to address problem: Aspirin 81 mg p.o. daily. Plavix 75 mg p.o. daily. Lipitor 40 mg p.o. daily. Serial cardiac enzymes. Echocardiogram. Cardiology evaluation (5) Diabetes mellitus, type 2 Current Visit: No Status: Chronic Plan to address problem: Humalog sliding scale moderate dose Accu-Chek before meals and at bedtime. Diabetic education (6) DVT prophylaxis Current Visit: No Status: Acute Plan to address problem: SCD for DVT prophylaxis because of a high blood pressure. Pepcid 20 mg p.o. twice daily for GI prophylaxis. Patient is a full code
[2021-08-03] MEDS ORDERED: DEXTROSE 10% *Hypoglycemia IV PRN (06:05)
[2021-08-03] MEDS ORDERED: niCARdipine DRIP 40 MG/200 ML BAG IV ONE ×2 (06:50→06:52)
[2021-08-03] MEDS: MORPHINE 2 MG/1 ML INJ IV PRN ×2 (08:25→23:20)
[2021-08-03] MEDS: cloNIDine 0.2 MG TAB PO SCH ×2 (08:25→18:31)
[2021-08-03] MEDS: FUROSEMIDE 40 MG/4 ML INJ IV SCH ×2 (08:26→18:31)
[2021-08-03] MEDS: IPRATROPIUM/ALBUTEROL SULFATE 3 ML AMPUL.NEB IH SCH ×5 (09:06→23:55)
[2021-08-03] MEDS: ALBUTEROL 2.5 MG/3 ML NEBU IH PRN ×2 (09:08→14:52)
[2021-08-03] MEDS: INSULIN LISPRO 100 UNIT/ML SUB-Q SCH ×3 (09:38→23:20)
[2021-08-03] MEDS ORDERED: methylPREDNISolone Sod Succinate 40 MG/1 ML INJ IV SCH (10:00)
[2021-08-03] MEDS ORDERED: [UNRECOGNIZED DRUG - OTHER] IH SCH (10:00)
--- NOTE | 2021-08-03 11:26 | Electrocardiograph Report ---
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
--- NOTE | 2021-08-03 11:49 | Progress Note ---
Assessment and Plan Assessment and plan: History of present illness: 61 years old female with past medical history of congestive heart failure, hypertension, COPD, diabetes on 4 L of oxygen at home was brought to the ospital because of progressive shortness of breath for the last 3 days. Patient denies any chest pain or cough but patient complain increased swelling on the both legs. ED Course: Patient BNP is 7147. Chest x-ray shows cardiomegaly and mild to moderate congestive heart failure. Also patient blood pressure is 250/148 we will going to admit the patient to the ICU. We put the patient on CHF pathway also put on nitro drip. consult cardiology for evaluation Admitted to ICU for Acute on chronic congestive heart failure exacerbation, hypertensive emergency on cardene gtt. Assessment and Plan #Acute hypoxic respiratory failure -Saturation as low as 80%, likely driven by decompensation of CHF Currently on nasal cannula 4 L/min, if hypoxia worsens will try bipap. - lasix as below - PCCM consulted #Acute on chronic diastolic congestive heart failure exacerbation -03/25/2021 echo: EF 50 to 55%, moderate concentric left ventricular hypertrophy. Right ventricle mildly dilated, right ventricle hypokinetic. Left atrium moderately dilated right atrium mildly dilated. Mild to moderate tricuspid regurgitation. Moderate pulmonary hypertension. Increase lower extremity edema, shortness of breath BNP 7147 Chest x-ray demonstrates cardiomegaly and bilateral pulmonary interstitial infiltrate - ECHO pending - lasix 40 mg IV bid - per patient she takes lasix 80 mg po daily and has been compliant. -GDMT - may benefit from bumex instead but will defer to cardiology. - Cardiology consulted # CAD with multivessel disease s/p PCI in jun 2018 -[facility] 06/20/2018 successful PCI with intravascular ultrasound of the ramus with DIANELYS which was 100% culprit vessel with DIANELYS. Left main patent, LAD patent. RCA mmoderate to severe tortuosity with mid stent patent, circumflex pateent, ARIELA 50% with sintia 100% with successful PCI. Acute diastolic dysfunction - continue dapt and imdur per cardiology -continue BB Cardiology consulted #Hypertensive emergency -Initially started on nitro GTT, currently on cardene gtt, will attempt to wean off today -Home antihypertensives restarted -Cardiology consultation - PCCM consulted #History of COPD on 4 L home oxygen - does not appear to be in acute exacerbation. - albuterol, ipratropium and budesonide Neb ordered - titrate o2 NC to home requirements #Type 2 diabetes with hyperglycemia - accuchecks ac/hs - correctional scale insulin - lantus qhs #Essential hypertension -Resume home medication: Lasix, metoprolol, Procardia XL, clonidine, valsartan #Obesity, BMI greater than 40 #Advance care planning Disease education conducted, care plan discussed, diagnoses discussed, prognosis discussed, patient is full code, patient acknowledges understanding and agree with care plan, +30 minutes. The high probability of a clinically significant, sudden or life threatening deterioration of the [pulmonary, neuro] system(s) required my full and direct attention, intervention and personal management. The aggregate critical care time was [60] minutes. This time is in addition to time spent performing reported procedures but includes the following: [x] Data Review and interpretation [x] Patient assessment and monitoring of vital signs [x] Documentation [x] Medication orders and management History Interval history: Patient seen and evaluated. Shortness of breath improved per patient. Output of 1400 cc of urine since admission per RN. Patient states that she is compliant with all her medications. 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 She is unsure why she had accumulated so much fluid as she states that she is restricting her fluid intake and salt intake. She denies knowing her ejection fraction and denied having an echo any time recently. Of note patient was just here in March. At the time ejection fraction 50 to 55% with mild concentric left ventricular hypertrophy. Hospitalist Physical - Physical exam Narrative exam: Physical Exam: VITAL SIGNS: Reviewed. GENERAL: The patient appears normally developed, Vital signs as documented. Morbid obesity, BMI greater than 40 HEAD: No signs of head trauma. EYES: Pupils are equal. Extraocular motions intact. EARS: Hearing grossly intact. MOUTH: Oropharynx is normal. NECK: No adenopathy, no JVD. CHEST: Bibasilar rales. No wheezes, rales, or rhonchi. CARDIAC: Regular rate and rhythm. S1 and S2, without murmurs, gallops, or rubs. VASCULAR: No Edema. Peripheral pulses normal and equal in all extremities. ABDOMEN: Soft, non tender and non distended. No rebound or guarding, and no masses palpated. Bowel Sounds normal. MUSCULOSKELETAL: Good range of motion of all major joints. Extremities without clubbing, cyanosis or edema. NEUROLOGIC EXAM: Alert and oriented x 4. no focal sensory or strength deficits. PSYCHIATRIC: Mood normal. SKIN: detail exam as documented in skin assessment - Constitutional Vitals: Temp Pulse Resp BP Pulse Ox 68 14 162/83 80 L 08/03/21 11:15 08/03/21 11:15 08/03/21 11:15 08/03/21 11:15 General appearance: Present: severe distress HEART Score - HEART Score Troponin: Troponin T < 0.010 ng/mL (0.00-0.029) 08/03/21 01:39 Results - Labs CBC & Chem 7: 08/03/21 01:39 08/03/21 01:39 Labs: Laboratory Last Values WBC 6.3 K/mm3 (4.5-11.0) 08/03/21 01:39 RBC 5.44 M/mm3 (3.65-5.03) H 08/03/21 01:39 Hgb 11.2 gm/dl (10.1-14.3) 08/03/21 01:39 Hct 38.2 % (30.3-42.9) 08/03/21 01:39 MCV 70 fl (79-97) L 08/03/21 01:39 MCH 21 pg (28-32) L 08/03/21 01:39 MCHC 29 % (30-34) L 08/03/21 01:39 RDW 20.9 % (13.2-15.2) H 08/03/21 01:39 Plt Count 267 K/mm3 (140-440) 08/03/21 01:39 Lymph % (Auto) 10.9 % (13.4-35.0) L 08/03/21 01:39 [place] % (Auto) 11.1 % (0.0-7.3) H 08/03/21 01:39 Eos % (Auto) 7.1 % (0.0-4.3) H 08/03/21 01:39 Baso % (Auto) 2.1 % (0.0-1.8) H 08/03/21 01:39 Lymph # (Auto) 0.7 K/mm3 (1.2-5.4) L 08/03/21 01:39 [place] # (Auto) 0.7 K/mm3 (0.0-0.8) 08/03/21 01:39 Eos # (Auto) 0.4 K/mm3 (0.0-0.4) 08/03/21 01:39 Baso # (Auto) 0.1 K/mm3 (0.0-0.1) 08/03/21 01:39 Seg Neutrophils % 68.8 % (40.0-70.0) 08/03/21 01:39 Seg Neutrophils # 4.3 K/mm3 (1.8-7.7) 08/03/21 01:39 PT 14.4 Sec. (12.2-14.9) 08/03/21 01:39 INR 1.01 (0.87-1.13) 08/03/21 01:39 Sodium 140 mmol/L (137-145) 08/03/21 01:39 Potassium 4.0 mmol/L (3.6-5.0) 08/03/21 01:39 Chloride 107.2 mmol/L (98-107) H 08/03/21 01:39 Carbon Dioxide 18 mmol/L (22-30) L 08/03/21 01:39 Anion Gap 19 mmol/L 08/03/21 01:39 BUN 23 mg/dL (7-17) H 08/03/21 01:39 Creatinine 0.9 mg/dL (0.6-1.2) 08/03/21 01:39 Estimated GFR > 60 ml/min 08/03/21 01:39 BUN/Creatinine Ratio 26 % 08/03/21 01:39 Glucose 127 mg/dL (65-100) H 08/03/21 01:39 Calcium 8.7 mg/dL (8.4-10.2) 08/03/21 01:39 Total Bilirubin 0.30 mg/dL (0.1-1.2) 08/03/21 01:39 AST 19 units/L (5-40) 08/03/21 01:39 ALT 23 units/L (7-56) 08/03/21 01:39 Alkaline Phosphatase 176 units/L (35-129) H 08/03/21 01:39 Total Creatine Kinase 57 units/L (30-135) 08/03/21 01:39 CK-MB (CK-2) 3.3 ng/mL (0.0-4.0) 08/03/21 01:39 CK-MB (CK-2) Rel Index 5.7 (0-4) H 08/03/21 01:39 Troponin T < 0.010 ng/mL (0.00-0.029) 08/03/21 01:39 NT-Pro-B Natriuret Pep 7147 pg/mL (0-900) H 08/03/21 01:39 Total Protein 7.6 g/dL (6.3-8.2) 08/03/21 01:39 Albumin 3.7 g/dL (3.9-5) L 08/03/21 01:39 Albumin/Globulin Ratio 0.9 % 08/03/21 01:39 Lipase 23 units/L (13-60) 08/03/21 01:39 Active Medications - Current Medications Current Medications: Generic Name Dose Route Start Last Admin Trade Name Freq PRN Reason Stop Dose Admin Acetaminophen 650 mg 08/03/21 05:44 Acetaminophen 325 Mg Tab PO Q4H PRN Pain MILD(1-3)/Fever >100.5/ALAS Albuterol 2.5 mg 08/03/21 05:44 08/03/21 09:08 Albuterol 2.5 Mg/3 Ml Nebu IH 2.5 mg Q3HRT PRN Administration Shortness Of Breath Albuterol/Ipratropium 1 ampul 08/03/21 08:00 08/03/21 09:06 Ipratropium/Albuterol Sulfate 3 Ml Ampul.Neb IH 1 ampul Q6HRT ANN MARIE Administration Aspirin 81 mg 08/03/21 10:00 Aspirin Ec 81 Mg Tab PO QDAY [facility] Atorvastatin Calcium 40 mg 08/03/21 22:00 Atorvastatin 40 Mg Tab PO QHS ANN MARIE Celecoxib 200 mg 08/03/21 10:00 Celecoxib 200 Mg Cap PO DAILY ANN MARIE Citalopram Hydrobromide 20 mg 08/03/21 10:00 Citalopram 20 Mg Tab PO QDAY [facility] Clonidine HCl 0.2 mg 08/03/21 08:00 08/03/21 08:25 Clonidine 0.2 Mg Tab PO 0.2 mg BID@0800,1700 ANN MARIE Administration Clopidogrel Bisulfate 75 mg 08/03/21 10:00 Clopidogrel 75 Mg Tab PO QDAY [facility] Dextrose 0 ml 08/03/21 06:05 Dextrose 10% *Hypoglycemia IV DIRECT PRN Hypoglycemia Protocol Famotidine 20 mg 08/03/21 10:00 Famotidine 20 Mg/2 Ml Inj IV BID [facility] Furosemide 40 mg 08/03/21 06:00 08/03/21 08:26 Furosemide 40 Mg/4 Ml Inj IV 40 mg BID@0600,1800 [facility] Administration Hydralazine HCl 100 mg 08/03/21 06:00 Hydralazine 100 Mg Tab PO Q8HR [facility] Hydromorphone HCl 0.5 mg 08/03/21 05:44 Hydromorphone 1 Mg/1 Ml Inj IV Q3H PRN Pain , Severe (7-10) Hydroxyzine Pamoate 25 mg 08/03/21 05:48 Hydroxyzine Pamoate 25 Mg Cap PO BID PRN Anxiety Nicardipine/Sodium Chloride 40 mg in 200 mls @ 25 mls/hr 08/03/21 06:52 08/03/21 08:26 Cardene Drip 40 Mg/200 Ml IV 08/03/21 14:51 5 mg/hr ONCE ONE 25 mls/hr Administration Protocol 5 MG/HR Insulin Human Lispro 0 unit 08/03/21 07:30 08/03/21 09:38 Insulin Lispro 100 Unit/Ml SUB-Q Not Given ACHS [facility] Protocol Isosorbide Mononitrate 60 mg 08/03/21 10:00 Isosorbide Mononitrate Er 60 Mg Tab PO QDAY [facility] Metoprolol Tartrate 50 mg 08/03/21 10:00 Metoprolol Tartrate 50 Mg Tab PO BID [facility] Miscellaneous Medication 13 gm 08/03/21 10:00 Mometasone Furoate [Asmanex Hfa] IH DAILY [facility] Montelukast Sodium 10 mg 08/03/21 22:00 Montelukast 10 Mg Tab PO QHS [facility] Morphine Sulfate 2 mg 08/03/21 05:44 08/03/21 08:25 Morphine 2 Mg/1 Ml Inj IV 2 mg Q4H PRN Administration Pain, Moderate (4-6) Nifedipine 30 mg 08/03/21 10:00 Nifedipine Xl 30 Mg Tab PO QDAY [facility] Ondansetron HCl 4 mg 08/03/21 05:44 Ondansetron 4 Mg/2 Ml Inj IV Q8H PRN Nausea And Vomiting Sodium Chloride 10 ml 08/03/21 10:00 Sodium Chloride 0.9% 10 Ml Flush Syringe IV BID ANN MARIE Sodium Chloride 10 ml 08/03/21 05:44 Sodium Chloride 0.9% 10 Ml Flush Syringe IV PRN PRN LINE FLUSH
[2021-08-03] MEDS: NIFEdipine XL 30 MG TAB PO SCH (13:00)
[2021-08-03] MEDS: CELECOXIB 200 MG CAP PO SCH (13:17)
[2021-08-03] MEDS: CITALOPRAM 20 MG TAB PO SCH (13:18)
[2021-08-03] MEDS: VALSARTAN 160MG TAB PO SCH ×2 (13:20→23:19)
[2021-08-03] MEDS: ASPIRIN EC 81 MG TAB PO SCH (13:25)
[2021-08-03] MEDS: CLOPIDOGREL 75 MG TAB PO SCH (13:25)
[2021-08-03] MEDS: FAMOTIDINE 20 MG/2 ML INJ IV SCH ×2 (13:25→23:20)
[2021-08-03] MEDS: METOPROLOL TARTRATE 50 MG TAB PO SCH ×2 (13:25→23:20)
--- NOTE | 2021-08-03 14:14 | Consultation ---
History of Present Illness Consult date: 08/03/21 Requesting physician: CELESTINE DICKEY Reason for consult: hypoxemia, other (Hypertensive Emergency) History of present illness: 61 y/o morbidly obese female admitted with hypoxic respiratory failure secondary to HTN and pulmonary edema. Per patient has been dealing with HTN for years and no one can fix it. She is tachypnic at rest but otherwise stable. Per patient not able able to lie flat. Sleeps sitting straight up. Also suffers from edema. Past History Past Medical History: acute [place], arthritis, COPD, diabetes, DVT, heart failure, hypertension Past Surgical History: appendectomy (Coronary stent), cholecystectomy, hysterectomy, tonsillectomy, Other Social history: other (no smoking) Family history: no significant family history Medications and Allergies Allergies Allergy/AdvReac Type Severity Reaction Status Date / Time Penicillins Allergy Severe GO INTO Verified 03/27/21 15:56 SHOCK Home Medications Medication Instructions Recorded Confirmed Last Taken Type Aspirin EC [Halfprin EC] 81 mg PO QDAY #30 tablet 10/09/19 08/04/21 03/24/21 Rx Mirtazapine 7.5 mg PO QHS #30 tablet 09/19/20 08/04/21 12/26/20 Rx hydrOXYzine PAMOATE [Vistaril] 25 mg PO BID PRN #60 capsule 09/19/20 08/04/21 03/24/21 Rx AtorvaSTATin [Lipitor] 40 mg PO QHS #90 tablet 02/04/21 08/04/21 03/24/21 Rx Celecoxib [celeBREX] 200 mg PO DAILY #60 cap 02/04/21 08/04/21 03/10/21 Rx Clopidogrel [Plavix] 75 mg PO QWEEK 90 Days 02/04/21 08/04/21 03/24/21 Rx Famotidine [Acid-Pep] 20 mg PO DAILY 90 Days #90 tablet 02/04/21 08/04/21 03/20/21 Rx Furosemide [Lasix TAB] 40 mg PO BID #90 tablet 02/04/21 08/04/21 Unknown Rx ISOSORBIDE MONOnitrate [Imdur ER] 60 mg PO QDAY #30 tablet 02/04/21 08/04/21 Unknown Rx Metoprolol [Lopressor TAB] 50 mg PO BID #90 tablet 02/04/21 08/04/21 Unknown Rx Mometasone Furoate [Asmanex Hfa] 13 gm IH DAILY #90 hfa.aer.ad 02/04/21 08/04/21 Unknown Rx cloNIDine [Catapres] 0.2 mg PO BID 90 Days 02/04/21 08/04/21 Unknown Rx hydrALAZINE [Apresoline TAB] 100 mg PO Q8HR #90 tab 02/04/21 08/04/21 03/24/21 Rx Albuterol Mdi (or & Nicu Only) 1 puff IH QDAY PRN 03/27/21 08/04/21 03/24/21 History [ProAir HFA Inhaler] [place] Oil Caps 725 mg PO QDAY 03/27/21 08/04/21 Unknown History Citalopram [celeXA] 20 mg PO QDAY 03/27/21 08/04/21 02/24/21 History Multivit-Min36/Iron/Folic Acid 1 each PO QDAY 03/27/21 08/04/21 03/24/21 History [Geritol Complete Tablet] NIFEdipine [Adalat cc] 30 mg PO QDAY 03/27/21 08/04/21 03/24/21 History Active Meds: Active Medications Acetaminophen (Acetaminophen 325 Mg Tab) 650 mg PO Q4H PRN PRN Reason: Pain MILD(1-3)/Fever >100.5/ALAS Albuterol (Albuterol 2.5 Mg/3 Ml Nebu) 2.5 mg IH Q3HRT PRN PRN Reason: Shortness Of Breath Last Admin: 08/03/21 09:08 Dose: 2.5 mg Albuterol/Ipratropium (Ipratropium/Albuterol Sulfate 3 Ml Ampul.Neb) 1 ampul IH Q6HRT [facility] Last Admin: 08/03/21 09:06 Dose: 1 ampul Aspirin (Aspirin Ec 81 Mg Tab) 81 mg PO QDAY [facility] Last Admin: 08/03/21 13:25 Dose: Not Given Atorvastatin Calcium (Atorvastatin 40 Mg Tab) 40 mg PO QHS [facility] Budesonide (Budesonide 0.5 Mg/2 Ml Nebu) 0.5 mg IH Q12HRT [facility] Celecoxib (Celecoxib 200 Mg Cap) 200 mg PO DAILY [facility] Last Admin: 08/03/21 13:17 Dose: 200 mg Citalopram Hydrobromide (Citalopram 20 Mg Tab) 20 mg PO QDAY [facility] Last Admin: 08/03/21 13:18 Dose: 20 mg Clonidine HCl (Clonidine 0.2 Mg Tab) 0.2 mg PO BID@0800,1700 [facility] Last Admin: 08/03/21 08:25 Dose: 0.2 mg Clopidogrel Bisulfate (Clopidogrel 75 Mg Tab) 75 mg PO QDAY [facility] Last Admin: 08/03/21 13:25 Dose: 75 mg Dextrose (Dextrose 10% *Hypoglycemia) 0 ml IV DIRECT PRN; Protocol PRN Reason: Hypoglycemia Famotidine (Famotidine 20 Mg/2 Ml Inj) 20 mg IV BID [facility] Last Admin: 08/03/21 13:25 Dose: 20 mg Furosemide (Furosemide 40 Mg/4 Ml Inj) 40 mg IV BID@0600,1800 [facility] Last Admin: 08/03/21 08:26 Dose: 40 mg Hydralazine HCl (Hydralazine 100 Mg Tab) 100 mg PO Q8HR [facility] Hydromorphone HCl (Hydromorphone 1 Mg/1 Ml Inj) 0.5 mg IV Q3H PRN PRN Reason: Pain , Severe (7-10) Hydroxyzine Pamoate (Hydroxyzine Pamoate 25 Mg Cap) 25 mg PO BID PRN PRN Reason: Anxiety Nicardipine/Sodium Chloride (Cardene Drip 40 Mg/200 Ml) 40 mg in 200 mls @ 25 mls/hr IV ONCE ONE; Protocol Stop: 08/03/21 14:51 Last Admin: 08/03/21 08:26 Dose: 5 mg/hr, 25 mls/hr Insulin Human Lispro (Insulin Lispro 100 Unit/Ml) 0 unit SUB-Q ACHS [facility]; Protocol Last Admin: 08/03/21 09:38 Dose: Not Given Isosorbide Mononitrate (Isosorbide Mononitrate Er 60 Mg Tab) 60 mg PO QDAY [facility] Last Admin: 08/03/21 13:18 Dose: 60 mg Metoprolol Tartrate (Metoprolol Tartrate 50 Mg Tab) 50 mg PO BID [facility] Last Admin: 08/03/21 13:25 Dose: 50 mg Montelukast Sodium (Montelukast 10 Mg Tab) 10 mg PO QHS [facility] Morphine Sulfate (Morphine 2 Mg/1 Ml Inj) 2 mg IV Q4H PRN PRN Reason: Pain, Moderate (4-6) Last Admin: 08/03/21 08:25 Dose: 2 mg Nifedipine (Nifedipine Xl 30 Mg Tab) 30 mg PO QDAY [facility] Ondansetron HCl (Ondansetron 4 Mg/2 Ml Inj) 4 mg IV Q8H PRN PRN Reason: Nausea And Vomiting Sodium Chloride (Sodium Chloride 0.9% 10 Ml Flush Syringe) 10 ml IV BID [facility] Sodium Chloride (Sodium Chloride 0.9% 10 Ml Flush Syringe) 10 ml IV PRN PRN PRN Reason: LINE FLUSH Valsartan (Valsartan 160mg Tab) 160 mg PO BID [facility] Last Admin: 08/03/21 13:20 Dose: 160 mg Physical Examination Vital signs: Vital Signs Resp Pulse Ox 22 98 08/03/21 04:00 08/03/21 04:00 General appearance: alert, appears uncomfortable, other (morbidly obese) Eyes: non-icteric ENT: oropharynx moist Neck: supple, other (large in circumference) Effort: mildly labored Ascultation: Bilateral: rales Percussion: Bilateral: not dull Tactile fremitus: Bilateral: normal Cardiovascular: regular rate and rhythm Gastrointestinal: normoactive bowel sounds, soft, other (obese) Results - Laboratory Findings CBC and BMP: 08/04/21 04:17 08/04/21 04:17 PT/INR, D-dimer PT 14.4 Sec. (12.2-14.9) 08/03/21 01:39 INR 1.01 (0.87-1.13) 08/03/21 01:39 Abnormal lab findings: Abnormal Labs 08/03/21 08/03/21 08/03/21 01:39 01:39 01:39 RBC 5.44 H MCV 70 L MCH 21 L MCHC 29 L RDW 20.9 H Lymph % (Auto) 10.9 L [place] % (Auto) 11.1 H Eos % (Auto) 7.1 H Baso % (Auto) 2.1 H Lymph # (Auto) 0.7 L Chloride 107.2 H Carbon Dioxide 18 L BUN 23 H Glucose 127 H Alkaline Phosphatase 176 H CK-MB (CK-2) Rel Index 5.7 H NT-Pro-B Natriuret Pep 7147 H Albumin 3.7 L - Diagnostic Findings Chest x-ray: image reviewed (cardiomegaly with pulmonary edema) Assessment and Plan 61 y/o obese female with hypoxic respiratory failure 1. Will give an additional dose of lasix now 2. Asked RT to use salter if necessary 3. Will order Bipap PRN 4. Hold on steroids for now 5. Guarded Prognosis
[2021-08-03] MEDS: hydrALAZINE 100 MG TAB PO SCH (15:00)
[2021-08-03] MEDS ORDERED: FUROSEMIDE 20 MG/2 ML INJ IV ONE (15:41)
--- NOTE | 2021-08-03 17:20 | Consultation ---
History of Present Illness Consult date: 08/03/21 Requesting physician: HEATHER FRANCIS Consult reason: other (Hypertensive emergency) History of present illness: This patient is a 61 y/o female with a PMHX of CAD s/p PCI in 2019 on DAPT, DM, HFpEF(EF50-55%), HTN, COPD on home 02, medical noncompliance who presented to ED with a complaint of shortness of breath x3 to 4 days. Patient reports that over the last several days she has had increasing shortness of breath, dyspnea on exertion, bilateral lower extremity edema. She she reports she is compliant with her medications and diet and salt restrictions. Patient states before coming to the hospital her symptoms worsen to the point that she was unable to walk more than several feet before becoming short of breath. She further reports orthopnea and a headache. She denies chest pain, nausea, vomiting, diaphoresis, lightheadedness or palpitations. Of note in the ED patient was found to have blood pressure of 250/148-elevated BNP-and CXR positive for mild to moderate CHF patient follows with Dr. Hernandez of our practice. Patient has not followed up in our office since 2019. Cardiology was consulted for hypertensive emergency Past History Past Medical History: acute [place], arthritis, COPD, diabetes, DVT, heart failure, hypertension Past Surgical History: appendectomy (Coronary stent), cholecystectomy, hysterect margo, tonsillectomy, Other Social history: other (no smoking) Family history: no significant family history Medications and Allergies Allergies Allergy/AdvReac Type Severity Reaction Status Date / Time Penicillins Allergy Severe GO INTO Verified 03/27/21 15:56 SHOCK Home Medications Medication Instructions Recorded Confirmed Last Taken Type Aspirin EC [Halfprin EC] 81 mg PO QDAY #30 tablet 10/09/19 03/27/21 03/24/21 Rx Mirtazapine 7.5 mg PO QHS #30 tablet 09/19/20 03/27/21 12/26/20 Rx hydrOXYzine PAMOATE [Vistaril] 25 mg PO BID PRN #60 capsule 09/19/20 03/27/21 03/24/21 Rx AtorvaSTATin [Lipitor] 40 mg PO QHS #90 tablet 02/04/21 03/27/21 03/24/21 Rx Celecoxib [celeBREX] 200 mg PO DAILY #60 cap 09/03/27/21 03/10/21 Rx Clopidogrel [Plavix] 75 mg PO QWEEK 90 Days 02/04/21 03/27/21 03/24/21 Rx Famotidine [Acid-Pep] 20 mg PO DAILY 90 Days #90 tablet 02/04/21 03/27/21 03/20/21 Rx Furosemide [Lasix TAB] 40 mg PO BID #90 tablet 02/04/21 03/25/21 Unknown Rx ISOSORBIDE MONOnitrate [Imdur ER] 60 mg PO QDAY #30 tablet 02/04/21 03/25/21 Unknown Rx Metoprolol [Lopressor TAB] 50 mg PO BID #90 tablet 02/04/21 03/25/21 Unknown Rx Mometasone Furoate [Asmanex Hfa] 13 gm IH DAILY #90 hfa.aer.ad 02/04/21 03/25/21 Unknown Rx cloNIDine [Catapres] 0.2 mg PO BID 90 Days 02/04/21 03/25/21 Unknown Rx hydrALAZINE [Apresoline TAB] 100 mg PO Q8HR #90 tab 02/04/21 03/27/21 03/24/21 Rx Albuterol Mdi (or & Nicu Only) 1 puff IH QDAY PRN 03/27/21 03/27/21 03/24/21 History [ProAir HFA Inhaler] [place] Oil Caps 725 mg PO QDAY 03/27/21 03/27/21 Unknown History Citalopram [celeXA] 20 mg PO QDAY 03/27/21 03/27/21 02/24/21 History Multivit-Min36/Iron/Folic Acid 1 each PO QDAY 03/27/21 03/27/21 03/24/21 History [Geritol Complete Tablet] NIFEdipine [Adalat cc] 30 mg PO QDAY 03/27/21 03/27/21 03/24/21 History Active Meds: Active Medications Acetaminophen (Acetaminophen 325 Mg Tab) 650 mg PO Q4H PRN PRN Reason: Pain MILD(1-3)/Fever >100.5/ALAS Albuterol (Albuterol 2.5 Mg/3 Ml Nebu) 2.5 mg IH Q3HRT PRN PRN Reason: Shortness Of Breath Last Admin: 08/03/21 14:52 Dose: 2.5 mg Albuterol/Ipratropium (Ipratropium/Albuterol Sulfate 3 Ml Ampul.Neb) 1 ampul IH Q4HRT [facility] Aspirin (Aspirin Ec 81 Mg Tab) 81 mg PO QDAY [facility] Last Admin: 08/03/21 13:25 Dose: Not Given Atorvastatin Calcium (Atorvastatin 40 Mg Tab) 40 mg PO QHS [facility] Budesonide (Budesonide 0.5 Mg/2 Ml Nebu) 0.5 mg IH Q12HRT [facility] Celecoxib (Celecoxib 200 Mg Cap) 200 mg PO DAILY [facility] Last Admin: 08/03/21 13:17 Dose: 200 mg Citalopram Hydrobromide (Citalopram 20 Mg Tab) 20 mg PO QDAY [facility] Last Admin: 08/03/21 13:18 Dose: 20 mg Clonidine HCl (Clonidine 0.2 Mg Tab) 0.2 mg PO BID@0800,1700 [facility] Last Admin: 08/03/21 08:25 Dose: 0.2 mg Clopidogrel Bisulfate (Clopidogrel 75 Mg Tab) 75 mg PO QDAY [facility] Last Admin: 08/03/21 13:25 Dose: 75 mg Dextrose (Dextrose 10% *Hypoglycemia) 0 ml IV DIRECT PRN; Protocol PRN Reason: Hypoglycemia Famotidine (Famotidine 20 Mg/2 Ml Inj) 20 mg IV BID [facility] Last Admin: 08/03/21 13:25 Dose: 20 mg Furosemide (Furosemide 40 Mg/4 Ml Inj) 40 mg IV BID@0600,1800 [facility] Last Admin: 08/03/21 08:26 Dose: 40 mg Hydralazine HCl (Hydralazine 100 Mg Tab) 100 mg PO Q8HR [facility] Hydromorphone HCl (Hydromorphone 1 Mg/1 Ml Inj) 0.5 mg IV Q3H PRN PRN Reason: Pain , Severe (7-10) Hydroxyzine Pamoate (Hydroxyzine Pamoate 25 Mg Cap) 25 mg PO BID PRN PRN Reason: Anxiety Insulin Human Lispro (Insulin Lispro 100 Unit/Ml) 0 unit SUB-Q ACHS [facility]; Protocol Last Admin: 08/03/21 09:38 Dose: Not Given Isosorbide Mononitrate (Isosorbide Mononitrate Er 60 Mg Tab) 60 mg PO QDAY [facility] Last Admin: 08/03/21 13:18 Dose: 60 mg Metoprolol Tartrate (Metoprolol Tartrate 50 Mg Tab) 50 mg PO BID [facility] Last Admin: 08/03/21 13:25 Dose: 50 mg Montelukast Sodium (Montelukast 10 Mg Tab) 10 mg PO QHS [facility] Morphine Sulfate (Morphine 2 Mg/1 Ml Inj) 2 mg IV Q4H PRN PRN Reason: Pain, Moderate (4-6) Last Admin: 08/03/21 08:25 Dose: 2 mg Nifedipine (Nifedipine Xl 30 Mg Tab) 30 mg PO QDAY [facility] Last Admin: 08/03/21 13:00 Dose: 30 mg Ondansetron HCl (Ondansetron 4 Mg/2 Ml Inj) 4 mg IV Q8H PRN PRN Reason: Nausea And Vomiting Sodium Chloride (Sodium Chloride 0.9% 10 Ml Flush Syringe) 10 ml IV BID [facility] Sodium Chloride (Sodium Chloride 0.9% 10 Ml Flush Syringe) 10 ml IV PRN PRN PRN Reason: LINE FLUSH Valsartan (Valsartan 160mg Tab) 160 mg PO BID [facility] Last Admin: 08/03/21 13:20 Dose: 160 mg Review of Systems Constitutional: weight gain, no fever, no chills Ears, nose, mouth and throat: no nasal discharge, no sinus pressure, no sinus pain Cardiovascular: orthopnea, edema, shortness of breath, dyspnea on exertion, high blood pressure, leg edema, no chest pain Respiratory: shortness of breath, dyspnea on exertion Gastrointestinal: no abdominal pain, no nausea, no vomiting Musculoskeletal: no neck stiffness, no neck pain, no shooting arm pain Integumentary: no rash, no pruritis, no redness Neurological: no head injury, no transient paralysis Psychiatric: no anxiety, no memory loss Endocrine: no cold intolerance, no heat intolerance Hematologic/Lymphatic: no easy bruising, no easy bleeding Physical Examination Vital Signs Resp Pulse Ox 22 98 08/03/21 04:00 08/03/21 04:00 General appearance: no acute distress HEENT: Positive: PERRL, Normocephaly Cardiac: Positive: Reg Rate and Rhythm Lungs: Positive: Decreased Breath Sounds, Wheezes Neuro: Positive: Grossly Intact Abdomen: Positive: Soft Skin: Negative: Rash, Suspicious Lesions Extremities: Present: upper extr. pulses, edema Results 08/03/21 01:39 08/03/21 01:39 Cardiac Enzymes 08/03/21 08/03/21 08/03/21 Range/Units 01:39 01:39 01:39 WBC 6.3 (4.5-11.0) K/mm3 RBC 5.44 H (3.65-5.03) M/mm3 Hgb 11.2 (10.1-14.3) gm/dl Hct 38.2 (30.3-42.9) % MCV 70 L (79-97) fl MCH 21 L (28-32) pg MCHC 29 L (30-34) % RDW 20.9 H (13.2-15.2) % Plt Count 267 (140-440) K/mm3 Lymph % (Auto) 10.9 L (13.4-35.0) % [place] % (Auto) 11.1 H (0.0-7.3) % Eos % (Auto) 7.1 H (0.0-4.3) % Baso % (Auto) 2.1 H (0.0-1.8) % Lymph # (Auto) 0.7 L (1.2-5.4) K/mm3 [place] # (Auto) 0.7 (0.0-0.8) K/mm3 Eos # (Auto) 0.4 (0.0-0.4) K/mm3 Baso # (Auto) 0.1 (0.0-0.1) K/mm3 Seg Neutrophils % 68.8 (40.0-70.0) % Seg Neutrophils # 4.3 (1.8-7.7) K/mm3 PT 14.4 (12.2-14.9) Sec. INR 1.01 (0.87-1.13) Sodium 140 (137-145) mmol/L Potassium 4.0 (3.6-5.0) mmol/L Chloride 107.2 H (98-107) mmol/L Carbon Dioxide 18 L (22-30) mmol/L Anion Gap 19 mmol/L BUN 23 H (7-17) mg/dL Creatinine 0.9 (0.6-1.2) mg/dL Estimated GFR > 60 ml/min BUN/Creatinine Ratio 26 % Glucose 127 H (65-100) mg/dL Calcium 8.7 (8.4-10.2) mg/dL Total Bilirubin 0.30 (0.1-1.2) mg/dL AST 19 (5-40) units/L ALT 23 (7-56) units/L Alkaline Phosphatase 176 H (35-129) units/L Total Creatine Kinase 57 (30-135) units/L CK-MB (CK-2) 3.3 (0.0-4.0) ng/mL CK-MB (CK-2) Rel Index 5.7 H (0-4) Troponin T < 0.010 (0.00-0.029) ng/mL NT-Pro-B Natriuret Pep (0-900) pg/mL Total Protein 7.6 (6.3-8.2) g/dL Albumin 3.7 L (3.9-5) g/dL Albumin/Globulin Ratio 0.9 % Lipase 23 (13-60) units/L // Range/Units 01:39 WBC (4.5-11.0) K/mm3 RBC (3.65-5.03) M/mm3 Hgb (10.1-14.3) gm/dl Hct (30.3-42.9) % MCV (79-97) fl MCH (28-32) pg MCHC (30-34) % RDW (13.2-15.2) % Plt Count (140-440) K/mm3 Lymph % (Auto) (13.4-35.0) % [place] % (Auto) (0.0-7.3) % Eos % (Auto) (0.0-4.3) % Baso % (Auto) (0.0-1.8) % Lymph # (Auto) (1.2-5.4) K/mm3 [place] # (Auto) (0.0-0.8) K/mm3 Eos # (Auto) (0.0-0.4) K/mm3 Baso # (Auto) (0.0-0.1) K/mm3 Seg Neutrophils % (40.0-70.0) % Seg Neutrophils # (1.8-7.7) K/mm3 PT (12.2-14.9) Sec. INR (0.87-1.13) Sodium (137-145) mmol/L Potassium (3.6-5.0) mmol/L Chloride (98-107) mmol/L Carbon Dioxide (22-30) mmol/L Anion Gap mmol/L BUN (7-17) mg/dL Creatinine (0.6-1.2) mg/dL Estimated GFR ml/min BUN/Creatinine Ratio % Glucose (65-100) mg/dL Calcium (8.4-10.2) mg/dL Total Bilirubin (0.1-1.2) mg/dL AST (5-40) units/L ALT (7-56) units/L Alkaline Phosphatase (35-129) units/L Total Creatine Kinase (30-135) units/L CK-MB (CK-2) (0.0-4.0) ng/mL CK-MB (CK-2) Rel Index (0-4) Troponin T (0.00-0.029) ng/mL NT-Pro-B Natriuret Pep 7147 H (0-900) pg/mL Total Protein (6.3-8.2) g/dL Albumin (3.9-5) g/dL Albumin/Globulin Ratio % Lipase (13-60) units/L Coagulation 08/03/21 Range/Units 01:39 PT 14.4 (12.2-14.9) Sec. INR 1.01 (0.87-1.13) CBC 08/03/21 Range/Units 01:39 WBC 6.3 (4.5-11.0) K/mm3 RBC 5.44 H (3.65-5.03) M/mm3 Hgb 11.2 (10.1-14.3) gm/dl Hct 38.2 (30.3-42.9) % Plt Count 267 (140-440) K/mm3 Lymph # (Auto) 0.7 L (1.2-5.4) K/mm3 [place] # (Auto) 0.7 (0.0-0.8) K/mm3 Eos # (Auto) 0.4 (0.0-0.4) K/mm3 Baso # (Auto) 0.1 (0.0-0.1) K/mm3 Comprehensive Metabolic Panel 08/03/21 Range/Units 01:39 Sodium 140 (137-145) mmol/L Potassium 4.0 (3.6-5.0) mmol/L Chloride 107.2 H (98-107) mmol/L Carbon Dioxide 18 L (22-30) mmol/L BUN 23 H (7-17) mg/dL Creatinine 0.9 (0.6-1.2) mg/dL Glucose 127 H (65-100) mg/dL Calcium 8.7 (8.4-10.2) mg/dL AST 19 (5-40) units/L ALT 23 (7-56) units/L Alkaline Phosphatase 176 H (35-129) units/L Total Protein 7.6 (6.3-8.2) g/dL Albumin 3.7 L (3.9-5) g/dL - Imaging and Cardiology Echo: report reviewed Cardiac cath: report reviewed EKG interpretations - Telemetry EKG Rhythm: Sinus Rhythm - EKG Sinus rhythms and dysrhythmias: sinus rhythm Myocardial infarction: lateral [place] (old age or in Assessment and Plan This patient is a 61 y/o female with a PMHX of CAD s/p PCI in 2019 on DAPT, DM, HFpEF(EF50-55%), HTN, COPD on home 02, medical noncompliance who presented to ED with a complaint of shortness of breath x3 to 4 daysHypertensive emergency Acute on chronic HFpEF Acute on chronic hypoxic respiratory failure- Currently on NC COPD- on home O2 HTN CAD s/p PCI 2018 DM Obesity Medical noncompliance Echo 09/15/2020-LVEF is 50 to 55%. LV SF is normal. Moderate LVH. RV SF is normal. Moderate pulmonary hypertension cannot be excluded due to poor reg urgitant envelope [facility] 06/20/2018 successful PCI with intravascular ultrasound of the ramus with DIANELYS which was 100% culprit vessel with DIANELYS. Left main patent, LAD patent. RCA mmo derate to severe tortuosity with mid stent patent, circumflex pateent, ARIELA 50% with sintia 100% with successful PCI. Acute diastolic dysfunction Echo 03/25/2021 EF 50 to 55%, moderate concentric left ventricular hypertrophy. Right ventricle mildly dilated, right ventricle hypokinetic. Left atrium moderately dilated right atrium mildly dilated. Mild to moderate tricuspid r egurgitation. Moderate pulmonary hypertension. Plan: EKG shows right and left arm electrode reversal. Interpretation assumes no reversal. Sinus rhythm 84 probable lateral infarct age. No acute ischemic changes. Troponin negative x1 patient denies any complaint of chest pain Agree with metoprolol 50mg PO BID, valsartan 160mg PO BID, nifedipine 30mg QD, hydralazine 100mg PO TID, clonidine 0.2mg PO BID Imdur 60mg QD Continue DAPT Patient previously on Cardene drip. Appears Cardene drip discontinued and patient blood pressure is improved BNP noted to be elevated, CXR shows mild to moderate CHF, patient has bilateral lower extremity edema. Agree with Lasix 40 mg IV twice daily for diuresis. Repeat BMP in the a.m. Patient seen in conjunction with Dr. Brian who agrees with this plan of care. Will continue to follow - Patient Problems (1) COPD exacerbation Current Visit: Yes Status: Acute (2) Hypertensive emergency Current Visit: Yes Status: Acute (3) Acute and chronic respiratory failure Current Visit: No Status: Acute Qualifiers: Respiratory failure complication: hypoxia Qualified Code(s): J96.21 - Acute and chronic respiratory failure with hypoxia (4) Acute on chronic heart failure with preserved ejection fraction (HFpEF) Current Visit: No Status: Acute (5) Cardiomyopathy Current Visit: No Status: Acute (6) Obesity hypoventilation syndrome Current Visit: No Status: Acute (7) CAD (coronary artery disease) Current Visit: No Status: Chronic Qualifiers: Coronary Disease-Associated Artery/Lesion type: cheesh-na artery [place] vs. transplanted heart: cheesh-na heart Associated angina: with stable angina Qualified Code(s): I25.118 - Atherosclerotic heart disease of cheesh-na coronary artery with other forms of angina pectoris (8) Diabetes Current Visit: No Status: Chronic Qualifiers: Diabetes mellitus type: type 1 (9) Medical non-compliance Current Visit: No Status: Chronic (10) Morbid obesity Current Visit: No Status: Chronic
[2021-08-03] MEDS: BUDESONIDE 0.5 MG/2 ML NEBU IH SCH ×2 (21:22→21:29)
[2021-08-03] MEDS: MONTELUKAST 10 MG TAB PO SCH (23:20)
[2021-08-04 00:06] LABS: Bilirubin,Urine NEG (Negative); Blood,Urine NEG (Negative); Color,Urine Yellow (Yellow); Mucus,Urine FEW /HPF; Protein,Urine <15 mg/dL mg/dL (Negative); Urobilinogen,Urine < 2.0 mg/dL (<2.0)
[2021-08-04 00:12] LABS: Amphetamine Screen,Urine PRESUMPTIVE NEGATIVE; Benzodiazepines Screen,Urine PRESUMPTIVE NEGATIVE; Cannabinoid Screen,Urine PRESUMPTIVE NEGATIVE; Cocaine Screen,Urine PRESUMPTIVE NEGATIVE; Methadone Screen,Urine PRESUMPTIVE NEGATIVE; Opiate Screen,Urine PRESUMPTIVE NEGATIVE
[2021-08-04] MEDS: hydrALAZINE 100 MG TAB PO SCH ×5 (04:14→23:01)
[2021-08-04 04:47] LABS: Mean Corpuscular HGB Conc 30 % (30-34); Platelet Count 262 K/mm3 (140-440); Red Blood Count 5.39 M/mm3 (3.65-5.03)
[2021-08-04 04:56] LABS: Hematocrit 37.3 % (30.3-42.9); Hemoglobin 11.2 gm/dl (10.1-14.3); Mean Corpuscular Volume 69 fl (79-97); Red Cell Distribution Width 20.8 % (13.2-15.2)
[2021-08-04 05:06] LABS: BUN/Creatinine Ratio 26; Blood Urea Nitrogen 21 mg/dL (7-17); Calcium 9.2 mg/dL (8.4-10.2); Hemolysis Index 0
[2021-08-04 06:05] LABS: Basophils % (Manual) 0 % (0.0-1.8); Hypochromasia 2+; Total Cells Counted 100
[2021-08-04 06:06] LABS: Anisocytosis 1+; Platelet Estimate Consistent w Auto
[2021-08-04] MEDS: FUROSEMIDE 40 MG/4 ML INJ IV SCH (06:15)
--- NOTE | 2021-08-04 07:48 | Progress Note ---
Assessment and Plan Assessment and plan: History of present illness: 61 years old female with past medical history of congestive heart failure, hypertension, COPD, diabetes on 4 L of oxygen at home was brought to the ospital because of progressive shortness of breath for the last 3 days. Patient denies any chest pain or cough but patient complain increased swelling on the both legs. ED Course: Patient BNP is 7147. Chest x-ray shows cardiomegaly and mild to moderate congestive heart failure. Also patient blood pressure is 250/148 we will going to admit the patient to the ICU. We put the patient on CHF pathway also put on nitro drip. consult cardiology for evaluation Admitted to ICU for Acute on chronic congestive heart failure exacerbation, hypertensive emergency on cardene gtt. Hospital Course 08/04: Changed diuretics to bumex 2 mg IV bid. Patient UOP appears to be excelle nt however no accurate recordings. ORder placed for q8hr I/O measurement. Wheezes noted on encounter but patinet oxygenation improved to 4l/min [place]. Will continue aggressive weaning. Patient given additional duoneb and budesonide tx. Will follow cardiology and pulmonary recs. Assessment and Plan #Acute hypoxic respiratory failure (improving) -Saturation as low as 80%, likely driven by decompensation of CHF Currently on nasal cannula 4 L/min, if hypoxia worsens will try bipap. - bumex 2 mg IV x 2. - PCCM consulted - recommend bipap qhs. #Acute on chronic diastolic congestive heart failure exacerbation Increase lower extremity edema, shortness of breath BNP 7147 Chest x-ray demonstrates cardiomegaly and bilateral pulmonary interstitial infiltrate - Echo 03/25/2021 EF 50 to 55%, moderate concentric left ventricular hypertrophy. Right ventricle mildly dilated, right ventricle hypokinetic. Left atrium moderately dilated right atrium mildly dilated. Mild to moderate tricuspid regurgitation. Moderate pulmonary hypertension. - bumex 2 mg IV x 2. - per patient she takes lasix 80 mg po daily and has been compliant. -GDMT - may benefit from bumex instead but will defer to cardiology. - Cardiology consulted # CAD with multivessel disease s/p PCI in jun 2018 -[facility] 06/20/2018 successful PCI with intravascular ultrasound of the ramus with DIANELYS which was 100% culprit vessel with DIANELYS. Left main patent, LAD patent. RCA mmoderate to severe tortuosity with mid stent patent, circumflex pateent, ARIELA 50% with sintia 100% with successful PCI. Acute diastolic dysfunction - continue dapt and imdur per cardiology -continue BB Cardiology consulted #Hypertensive emergency -Initially started on nitro GTT, currently on cardene gtt, will attempt to wean off today -Home antihypertensives restarted -Cardiology consultation - PCCM consulted #History of COPD on 4 L home oxygen - does not appear to be in acute exacerbation. - albuterol, ipratropium and budesonide Neb ordered - titrate o2 NC to home requirements #Type 2 diabetes with hyperglycemia - accuchecks ac/hs - correctional scale insulin - lantus qhs #Essential hypertension -Resume home medication: metoprolol 50mg PO BID, valsartan 160mg PO BID, nifedipine 30mg QD, hydralazine 100mg PO TID, clonidine 0.2mg PO BID Imdur 60mg QD #Obesity, BMI greater than 40 #Advance care planning Disease education conducted, care plan discussed, diagnoses discussed, prognosis discussed, patient is full code, patient acknowledges understanding and agree with care plan, +30 minutes. History Interval history: NAD on encounter. Patient states that diuretics administered produced robust urine output, stating she filled nearly four urine catches. On my encounter, patient was noted to have some slight expiratory wheezes. D/w RN Leydi to call RT for duoneb/budesonide tx. Hospitalist Physical - Physical exam Narrative exam: Physical Exam: VITAL SIGNS: Reviewed. GENERAL: The patient appears normally developed, Vital signs as documented. Morbid obesity, BMI greater than 40 HEAD: No signs of head trauma. EYES: Pupils are equal. Extraocular motions intact. EARS: Hearing grossly intact. MOUTH: Oropharynx is normal. NECK: No adenopathy, no JVD. CHEST: Bibasilar rales. BL exp wheezes CARDIAC: Regular rate and rhythm. S1 and S2, without murmurs, gallops, or rubs. VASCULAR: 2+ BL LE edema. Peripheral pulses normal and equal in all extremities. ABDOMEN: Soft, non tender and non distended. No rebound or guarding, and no masses palpated. Bowel Sounds normal. MUSCULOSKELETAL: Good range of motion of all major joints. Extremities without clubbing, cyanosis or edema. NEUROLOGIC EXAM: Alert and oriented x 4. no focal sensory or strength deficits. PSYCHIATRIC: Mood normal. SKIN: detail exam as documented in skin assessment - Constitutional Vitals: Temp Pulse Resp BP Pulse Ox 97.6 F 56 L 16 166/94 98 08/04/21 04:00 08/04/21 04:00 08/04/21 04:00 08/04/21 04:00 08/04/21 06:22 General appearance: Present: no acute distress HEART Score - HEART Score Troponin: Troponin T < 0.010 ng/mL (0.00-0.029) 08/03/21 01:39 Results - Labs CBC & Chem 7: 08/04/21 04:17 08/04/21 04:17 Labs: Laboratory Last Values WBC 5.3 K/mm3 (4.5-11.0) 08/04/21 04:17 RBC 5.39 M/mm3 (3.65-5.03) H 08/04/21 04:17 Hgb 11.2 gm/dl (10.1-14.3) 08/04/21 04:17 Hct 37.3 % (30.3-42.9) 08/04/21 04:17 MCV 69 fl (79-97) L 08/04/21 04:17 MCH 21 pg (28-32) L 08/04/21 04:17 MCHC 30 % (30-34) 08/04/21 04:17 RDW 20.8 % (13.2-15.2) H 08/04/21 04:17 Plt Count 262 K/mm3 (140-440) 08/04/21 04:17 Lymph % (Auto) 10.9 % (13.4-35.0) L 08/03/21 01:39 Branch % (Auto) 11.1 % (0.0-7.3) H 08/03/21 01:39 Eos % (Auto) Body Piercer 08/04/21 04:17 Baso % (Auto) 2.1 % (0.0-1.8) H 08/03/21 01:39 Lymph # (Auto) 0.7 K/mm3 (1.2-5.4) L 08/03/21 01:39 Branch # (Auto) 0.7 K/mm3 (0.0-0.8) 08/03/21 01:39 Eos # (Auto) 0.4 K/mm3 (0.0-0.4) 08/03/21 01:39 Baso # (Auto) 0.1 K/mm3 (0.0-0.1) 08/03/21 01:39 Add Manual Diff Complete 08/04/21 04:17 Total Counted 100 08/04/21 04:17 Seg Neutrophils % 68.8 % (40.0-70.0) 08/03/21 01:39 Seg Neuts % (Manual) 66.0 % (40.0-70.0) 08/04/21 04:17 Band Neutrophils % 0 % 08/04/21 04:17 Lymphocytes % (Manual) 9.0 % (13.4-35.0) L 08/04/21 04:17 Reactive Lymphs % (Man) 0 % 08/04/21 04:17 Monocytes % (Manual) 5.0 % (0.0-7.3) 08/04/21 04:17 Eosinophils % (Manual) 20.0 % (0.0-4.3) H 08/04/21 04:17 Basophils % (Manual) 0 % (0.0-1.8) 08/04/21 04:17 Metamyelocytes % 0 % 08/04/21 04:17 Myelocytes % 0 % 08/04/21 04:17 Promyelocytes % 0 % 08/04/21 04:17 Blast Cells % 0 % 08/04/21 04:17 Nucleated RBC % Not Reportable 08/04/21 04:17 Seg Neutrophils # 4.3 K/mm3 (1.8-7.7) 08/03/21 01:39 Seg Neutrophils # Man 3.5 K/mm3 (1.8-7.7) 08/04/21 04:17 Band Neutrophils # 0.0 K/mm3 08/04/21 04:17 Lymphocytes # (Manual) 0.5 K/mm3 (1.2-5.4) L 08/04/21 04:17 Abs React Lymphs (Man) 0.0 K/mm3 08/04/21 04:17 Monocytes # (Manual) 0.3 K/mm3 (0.0-0.8) 08/04/21 04:17 Eosinophils # (Manual) 1.1 K/mm3 (0.0-0.4) H 08/04/21 04:17 Basophils # (Manual) 0.0 K/mm3 (0.0-0.1) 08/04/21 04:17 Metamyelocytes # 0.0 K/mm3 08/04/21 04:17 Myelocytes # 0.0 K/mm3 08/04/21 04:17 Promyelocytes # 0.0 K/mm3 08/04/21 04:17 Blast Cells # 0.0 K/mm3 08/04/21 04:17 WBC Morphology Not Reportable 08/04/21 04:17 Hypersegmented Neuts Not Reportable 08/04/21 04:17 Hyposegmented Neuts Not Reportable 08/04/21 04:17 Hypogranular Neuts Not Reportable 08/04/21 04:17 Smudge Cells Not Reportable 08/04/21 04:17 Toxic Granulation Not Reportable 08/04/21 04:17 Toxic Vacuolation Not Reportable 08/04/21 04:17 Dohle Bodies Not Reportable 08/04/21 04:17 Pelger-Huet Anomaly Not Reportable 08/04/21 04:17 Juan Rods Not Reportable 08/04/21 04:17 Platelet Estimate Consistent w auto 08/04/21 04:17 Clumped Platelets Not Reportable 08/04/21 04:17 Plt Clumps, EDTA Not Reportable 08/04/21 04:17 Large Platelets Not Reportable 08/04/21 04:17 Giant Platelets Not Reportable 08/04/21 04:17 Platelet Satelliting Not Reportable 08/04/21 04:17 Plt Morphology Comment Not Reportable 08/04/21 04:17 RBC Morphology Not Reportable 08/04/21 04:17 Dimorphic RBCs Not Reportable 08/04/21 04:17 Polychromasia Not Reportable 08/04/21 04:17 Hypochromasia 2+ 08/04/21 04:17 Poikilocytosis Not Reportable 08/04/21 04:17 Anisocytosis 1+ 08/04/21 04:17 Microcytosis 1+ 08/04/21 04:17 Macrocytosis Not Reportable 08/04/21 04:17 Spherocytes Not Reportable 08/04/21 04:17 Pappenheimer Bodies Not Reportable 08/04/21 04:17 Sickle Cells Not Reportable 08/04/21 04:17 Target Cells Not Reportable 08/04/21 04:17 Tear Drop Cells Not Reportable 08/04/21 04:17 Ovalocytes Not Reportable 08/04/21 04:17 Helmet Cells Not Reportable 08/04/21 04:17 [place] Bodies Not Reportable 08/04/21 04:17 [place] Rings Not Reportable 08/04/21 04:17 Joanna Cells Not Reportable 08/04/21 04:17 Bite Cells Not Reportable 08/04/21 04:17 Crenated Cell Not Reportable 08/04/21 04:17 Elliptocytes Not Reportable 08/04/21 04:17 Acanthocytes (Spur) Not Reportable 08/04/21 04:17 Rouleaux Not Reportable 08/04/21 04:17 Hemoglobin C Crystals Not Reportable 08/04/21 04:17 Schistocytes Not Reportable 08/04/21 04:17 Malaria parasites Not Reportable 08/04/21 04:17 Didier Bodies Not Reportable 08/04/21 04:17 Hem Pathologist Commnt No 08/04/21 04:17 PT 14.4 Sec. (12.2-14.9) 08/03/21 01:39 INR 1.01 (0.87-1.13) 08/03/21 01:39 Sodium 140 mmol/L (137-145) 08/04/21 04:17 Potassium 4.0 mmol/L (3.6-5.0) 08/04/21 04:17 Chloride 104.5 mmol/L (98-107) 08/04/21 04:17 Carbon Dioxide 24 mmol/L (22-30) 08/04/21 04:17 Anion Gap 16 mmol/L 08/04/21 04:17 BUN 21 mg/dL (7-17) H 08/04/21 04:17 Creatinine 0.8 mg/dL (0.6-1.2) 08/04/21 04:17 Estimated GFR > 60 ml/min 08/04/21 04:17 BUN/Creatinine Ratio 26 % 08/04/21 04:17 Glucose 91 mg/dL (65-100) 08/04/21 04:17 POC Glucose 141 mg/dL (70-105) H 08/03/21 21:41 Calcium 9.2 mg/dL (8.4-10.2) 08/04/21 04:17 Total Bilirubin 0.30 mg/dL (0.1-1.2) 08/03/21 01:39 AST 19 units/L (5-40) 08/03/21 01:39 ALT 23 units/L (7-56) 08/03/21 01:39 Alkaline Phosphatase 176 units/L (35-129) H 08/03/21 01:39 Total Creatine Kinase 57 units/L (30-135) 08/03/21 01:39 CK-MB (CK-2) 3.3 ng/mL (0.0-4.0) 08/03/21 01:39 CK-MB (CK-2) Rel Index 5.7 (0-4) H 08/03/21 01:39 Troponin T < 0.010 ng/mL (0.00-0.029) 08/03/21 01:39 NT-Pro-B Natriuret Pep 7147 pg/mL (0-900) H 08/03/21 01:39 Total Protein 7.6 g/dL (6.3-8.2) 08/03/21 01:39 Albumin 3.7 g/dL (3.9-5) L 08/03/21 01:39 Albumin/Globulin Ratio 0.9 % 08/03/21 01:39 Lipase 23 units/L (13-60) 08/03/21 01:39 Urine Color Yellow (Yellow) 08/03/21 23:39 Urine Turbidity Clear (Clear) 08/03/21 23:39 Urine pH 5.0 (5.0-7.0) 08/03/21 23:39 Ur Specific [place] 1.014 (1.003-1.030) 08/03/21 23:39 Urine Protein <15 mg/dl mg/dL (Negative) 08/03/21 23:39 Urine Glucose (UA) Neg mg/dL (Negative) 08/03/21 23:39 Urine Ketones Neg mg/dL (Negative) 08/03/21 23:39 Urine Blood Neg (Negative) 08/03/21 23:39 Urine Nitrite Pos (Negative) 08/03/21 23:39 Urine Bilirubin Neg (Negative) 08/03/21 23:39 Urine Urobilinogen < 2.0 mg/dL (<2.0) 08/03/21 23:39 Ur Leukocyte Esterase Tr (Negative) 08/03/21 23:39 Urine WBC (Auto) 5.0 /HPF (0.0-6.0) 08/03/21 23:39 Urine RBC (Auto) 1.0 /HPF (0.0-6.0) 08/03/21 23:39 U Epithel Cells (Auto) 1.0 /HPF (0-13.0) 08/03/21 23:39 Urine Mucus Few /HPF 08/03/21 23:39 Urine Opiates Screen Presumptive negative 08/03/21 23:39 Urine Methadone Screen Presumptive negative 08/03/21 23:39 Ur Barbiturates Screen Presumptive negative 08/03/21 23:39 Ur Phencyclidine Scrn Presumptive negative 08/03/21 23:39 Ur Amphetamines Screen Presumptive negative 08/03/21 23:39 U Benzodiazepines Scrn Presumptive negative 08/03/21 23:39 Urine Cocaine Screen Presumptive negative 08/03/21 23:39 U Marijuana (THC) Screen Presumptive negative 08/03/21 23:39 Drugs of Abuse Note Disclamer 08/03/21 23:39 Fabian/IV: Voiding Method External Female Catheter Active Medications - Current Medications Current Medications: Generic Name Dose Route Start Last Admin Trade Name Freq PRN Reason Stop Dose Admin Acetaminophen 650 mg 08/03/21 05:44 Acetaminophen 325 Mg Tab PO Q4H PRN Pain MILD(1-3)/Fever >100.5/ALAS Albuterol 2.5 mg 08/03/21 05:44 08/03/21 14:52 Albuterol 2.5 Mg/3 Ml Nebu IH 2.5 mg Q3HRT PRN Administration Shortness Of Breath Albuterol/Ipratropium 1 ampul 08/04/21 08:00 Ipratropium/Albuterol Sulfate 3 Ml Ampul.Neb IH TIDRT ANN MARIE Aspirin 81 mg 08/03/21 10:00 08/03/21 13:25 Aspirin Ec 81 Mg Tab PO Not Given QDAY ANN MARIE Atorvastatin Calcium 40 mg 08/03/21 22:00 08/03/21 23:20 Atorvastatin 40 Mg Tab PO 40 mg QHS ANN MARIE Administration Budesonide 0.5 mg 08/03/21 13:00 08/03/21 21:29 Budesonide 0.5 Mg/2 Ml Nebu IH Not Given Q12HRT [facility] Bumetanide 2 mg 08/04/21 18:00 Bumetanide 1 Mg/4 Ml Inj IV BID@0600,1800 [facility] Celecoxib 200 mg 08/03/21 10:00 08/03/21 13:17 Celecoxib 200 Mg Cap PO 200 mg DAILY ANN MARIE Administration Citalopram Hydrobromide 20 mg 08/03/21 10:00 08/03/21 13:18 Citalopram 20 Mg Tab PO 20 mg QDAY ANN MARIE Administration Clonidine HCl 0.2 mg 08/03/21 08:00 08/03/21 18:31 Clonidine 0.2 Mg Tab PO Not Given BID@0800,1700 [facility] Clopidogrel Bisulfate 75 mg 08/03/21 10:00 08/03/21 13:25 Clopidogrel 75 Mg Tab PO 75 mg QDAY ANN MARIE Administration Dextrose 0 ml 08/03/21 06:05 Dextrose 10% *Hypoglycemia IV DIRECT PRN Hypoglycemia Protocol Famotidine 20 mg 08/03/21 10:00 08/03/21 23:20 Famotidine 20 Mg/2 Ml Inj IV 20 mg BID ANN MARIE Administration Hydralazine HCl 100 mg 08/03/21 06:00 08/04/21 06:14 Hydralazine 100 Mg Tab PO 100 mg Q8HR ANN MARIE Administration Hydromorphone HCl 0.5 mg 08/03/21 05:44 Hydromorphone 1 Mg/1 Ml Inj IV Q3H PRN Pain , Severe (7-10) Hydroxyzine Pamoate 25 mg 08/03/21 05:48 Hydroxyzine Pamoate 25 Mg Cap PO BID PRN Anxiety Insulin Human Lispro 0 unit 08/03/21 07:30 08/03/21 23:20 Insulin Lispro 100 Unit/Ml SUB-Q Not Given ACHS [facility] Protocol Isosorbide Mononitrate 60 mg 08/03/21 10:00 08/03/21 13:18 Isosorbide Mononitrate Er 60 Mg Tab PO 60 mg QDAY ANN MARIE Administration Metoprolol Tartrate 50 mg 08/03/21 10:00 08/03/21 23:20 Metoprolol Tartrate 50 Mg Tab PO 50 mg BID ANN MARIE Administration Montelukast Sodium 10 mg 08/03/21 22:00 08/03/21 23:20 Montelukast 10 Mg Tab PO 10 mg QHS ANN MARIE Administration Morphine Sulfate 2 mg 08/03/21 05:44 08/03/21 23:20 Morphine 2 Mg/1 Ml Inj IV 2 mg Q4H PRN Administration Pain, Moderate (4-6) Nifedipine 30 mg 08/03/21 10:00 08/03/21 13:00 Nifedipine Xl 30 Mg Tab PO 30 mg QDAY ANN MARIE Administration Ondansetron HCl 4 mg 08/03/21 05:44 Ondansetron 4 Mg/2 Ml Inj IV Q8H PRN Nausea And Vomiting Sodium Chloride 10 ml 08/03/21 10:00 08/03/21 23:19 Sodium Chloride 0.9% 10 Ml Flush Syringe IV 10 ml BID ANN MARIE Administration Sodium Chloride 10 ml 08/03/21 05:44 Sodium Chloride 0.9% 10 Ml Flush Syringe IV PRN PRN LINE FLUSH Valsartan 160 mg 08/03/21 13:00 08/03/21 23:19 Valsartan 160mg Tab PO 160 mg BID ANN MARIE Administration Nutrition/Malnutrition Assess - Dietary Evaluation Nutrition/Malnutrition Findings: Nutrition Notes Start: 08/03/21 17:44 Freq: Status: Active Protocol: Document 08/03/21 17:44 FREDERICK (Rec: 08/03/21 17:49 FREDERICK [id number]) Nutrition Notes Need for Assessment generated from: MD Order,Education Initial or Follow up Brief Note Current Diagnosis COPD,Diabetes,Hypertension Other Pertinent Diagnosis Chest Pain, CHF. Current Diet Cardiac Diet (since B 08/03). Height 5 ft 5 in Weight 113.398 kg [place] Body Weight (kg) 56.81 BMI 41.5 Weight change and time frame None reported at admission. Weight Status Morbidly Obese Subjective/Other Information RD consult for Nutrition Education. No reports available on Pt's PO intake of meals at the time , will assess at F/U. Pt still in critical condition , not a candidate for Nutrition Education at the time, will assess feasibility on F/U. Percent of energy/protein needs met: Prescribed Cardiac Diet provides for energy/protein needs (2,230 Kcal/85 g) during LOS. Nutrition Intervention Follow-Up By: 08/10/21 Additional Comments Nutrition education will be provided on F/U, if feasible. Continue monitoring food tolerance, %PO intake of meals , and BM.
[2021-08-04] MEDS: INSULIN LISPRO 100 UNIT/ML SUB-Q SCH ×4 (08:50→23:00)
[2021-08-04] MEDS: BUDESONIDE 0.5 MG/2 ML NEBU IH SCH ×2 (09:27→19:30)
[2021-08-04] MEDS: IPRATROPIUM/ALBUTEROL SULFATE 3 ML AMPUL.NEB IH SCH ×3 (09:28→19:30)
[2021-08-04] MEDS: METOPROLOL TARTRATE 50 MG TAB PO SCH ×2 (10:40→23:00)
[2021-08-04] MEDS: CLOPIDOGREL 75 MG TAB PO SCH (10:42)
[2021-08-04] MEDS: ASPIRIN EC 81 MG TAB PO SCH (10:43)
[2021-08-04] MEDS: CELECOXIB 200 MG CAP PO SCH (10:44)
[2021-08-04] MEDS: FAMOTIDINE 20 MG TAB PO SCH ×2 (10:46→23:00)
[2021-08-04] MEDS: cloNIDine 0.2 MG TAB PO SCH ×2 (10:47→18:56)
[2021-08-04] MEDS: VALSARTAN 160MG TAB PO SCH ×2 (10:47→23:00)
[2021-08-04] MEDS: CITALOPRAM 20 MG TAB PO SCH (10:48)
[2021-08-04] MEDS: NIFEdipine XL 30 MG TAB PO SCH (10:49)
--- NOTE | 2021-08-04 11:42 | Progress Note ---
Assessment and Plan 61 y/o obese female with hypoxic respiratory failure 08/04/21: Continue diuresis. Wean FiO2 for sats >88% 1. Will give an additional dose of lasix now 2. Asked RT to use salter if necessary 3. Will order Bipap PRN 4. Hold on steroids for now 5. Guarded Prognosis Subjective Date of service: 08/04/21 Interval history: Down to 4 liters with good sats. Objective Vital Signs - 12hr 08/03/21 08/04/21 08/04/21 23:55 00:36 01:49 Temperature Pulse Rate Pulse Rate [ 81 Bilateral] Respiratory Rate Respiratory 20 Rate [Bilateral ] Blood Pressure O2 Sat by Pulse 95 98 Oximetry 08/04/21 08/04/21 08/04/21 04:00 06:22 09:30 Temperature 97.6 F Pulse Rate 56 L Pulse Rate [ 88 Bilateral] Respiratory 16 Rate Respiratory 20 Rate [Bilateral ] Blood Pressure 166/94 O2 Sat by Pulse 90 98 Oximetry 08/04/21 08/04/21 08/04/21 09:31 10:40 10:44 Temperature Pulse Rate 76 Pulse Rate [ Bilateral] Respiratory 19 Rate Respiratory Rate [Bilateral ] Blood Pressure 137/105 O2 Sat by Pulse 96 Oximetry 08/04/21 08/04/21 10:47 10:48 Temperature Pulse Rate 76 76 Pulse Rate [ Bilateral] Respiratory Rate Respiratory Rate [Bilateral ] Blood Pressure 137/105 137/105 O2 Sat by Pulse Oximetry Constitutional: alert, appears uncomfortable, other (morbidly obese) Eyes: non-icteric ENT: oropharynx moist Neck: supple, other (large in circumference) Effort: mildly labored Ascultation: Bilateral: rales Percussion: Bilateral: not dull Tactile fremitus: Bilateral: normal Cardiovascular: regular rate and rhythm Gastrointestinal: normoactive bowel sounds, soft, other (obese) CBC and BMP: 08/04/21 04:17 08/04/21 04:17 ABG, PT/INR, D-dimer: PT/INR, D-dimer PT 14.4 Sec. (12.2-14.9) 08/03/21 01:39 INR 1.01 (0.87-1.13) 08/03/21 01:39 Abnormal lab findings: Abnormal Labs 08/03/21 08/03/21 08/03/21 01:39 01:39 01:39 RBC 5.44 H MCV 70 L MCH 21 L MCHC 29 L RDW 20.9 H Lymph % (Auto) 10.9 L [place] % (Auto) 11.1 H Eos % (Auto) 7.1 H Baso % (Auto) 2.1 H Lymph # (Auto) 0.7 L Lymphocytes % (Manual) Eosinophils % (Manual) Lymphocytes # (Manual) Eosinophils # (Manual) Chloride 107.2 H Carbon Dioxide 18 L BUN 23 H Glucose 127 H POC Glucose Alkaline Phosphatase 176 H CK-MB (CK-2) Rel Index 5.7 H NT-Pro-B Natriuret Pep 7147 H Albumin 3.7 L 08/03/21 08/03/21 08/04/21 08:06 21:41 04:17 RBC 5.39 H MCV 69 L MCH 21 L MCHC RDW 20.8 H Lymph % (Auto) [place] % (Auto) Eos % (Auto) Baso % (Auto) Lymph # (Auto) Lymphocytes % (Manual) 9.0 L Eosinophils % (Manual) 20.0 H Lymphocytes # (Manual) 0.5 L Eosinophils # (Manual) 1.1 H Chloride Carbon Dioxide BUN Glucose POC Glucose 140 H 141 H Alkaline Phosphatase CK-MB (CK-2) Rel Index NT-Pro-B Natriuret Pep Albumin 08/04/21 04:17 RBC MCV MCH MCHC RDW Lymph % (Auto) [place] % (Auto) Eos % (Auto) Baso % (Auto) Lymph # (Auto) Lymphocytes % (Manual) Eosinophils % (Manual) Lymphocytes # (Manual) Eosinophils # (Manual) Chloride Carbon Dioxide BUN 21 H Glucose POC Glucose Alkaline Phosphatase CK-MB (CK-2) Rel Index NT-Pro-B Natriuret Pep Albumin
[2021-08-04] MEDS: HYDROmorphone 1 MG/1 ML INJ IV PRN ×3 (12:19→23:08)
--- NOTE | 2021-08-04 12:40 | Progress Note ---
Assessment and Plan This patient is a 61 y/o female with a PMHX of CAD s/p PCI in 2019 on DAPT, DM, HFpEF(EF50-55%), HTN, COPD on home 02, medical noncompliance who presented to ED with a complaint of shortness of breath x3 to 4 daysHypertensive emergency Acute on chronic HFpEF Acute on chronic hypoxic respiratory failure- Currently on NC COPD- on home O2 HTN CAD s/p PCI 2018 DM Obesity Medical noncompliance Echo 09/15/2020-LVEF is 50 to 55%. LV SF is normal. Moderate LVH. RV SF is normal. Moderate pulmonary hypertension cannot be excluded due to poor regurgitant envelope C 06/20/2018 successful PCI with intravascular ultrasound of the ramus with DIANELYS which was 100% culprit vessel with DIANELYS. Left main patent, LAD patent. RCA mmoderate to severe tortuosity with mid stent patent, circumflex pateent, ARIELA 50% with sintia 100% with successful PCI. Acute diastolic dysfunction Echo 03/25/2021 EF 50 to 55%, moderate concentric left ventricular hypertrophy. Right ventricle mildly dilated, right ventricle hypokinetic. Left atrium moderately dilated right atrium mildly dilated. Mild to moderate tricuspid regurgitation. Moderate pulmonary hypertension. Plan: Patient remains chest pain-free Continue metoprolol 50mg PO BID, valsartan 160mg PO BID, nifedipine 30mg QD, hydralazine 100mg PO TID, clonidine 0.2mg PO BID Imdur 60mg QD Continue DAPT Currently being diuresed with Bumex 2 mg IV twice daily for diuresis. Repeat BMP in the a.m. Strict I's and O's Discussed importance of medication compliance and importance of follow-up appointment with patient. Patient verbalized understanding and acknowledgment Patient seen in conjunction with Dr. Brian who agrees with this plan of care. Will continue to follow - Patient Problems (1) COPD exacerbation Current Visit: Yes Status: Acute (2) Hypertensive emergency Current Visit: Yes Status: Acute (3) Acute and chronic respiratory failure Current Visit: No Status: Acute Qualifiers: Respiratory failure complication: hypoxia Qualified Code(s): J96.21 - Acute and chronic respiratory failure with hypoxia (4) Acute on chronic heart failure with preserved ejection fraction (HFpEF) Current Visit: No Status: Acute (5) Cardiomyopathy Current Visit: No Status: Acute (6) Obesity hypoventilation syndrome Current Visit: No Status: Acute (7) CAD (coronary artery disease) Current Visit: No Status: Chronic Qualifiers: Coronary Disease-Associated Artery/Lesion type: [place] artery [place] vs. transplanted heart: [place] heart Associated angina: with stable angina Qualified Code(s): I25.118 - Atherosclerotic heart disease of [place] coronary artery with other forms of angina pectoris (8) Diabetes Current Visit: No Status: Chronic Qualifiers: Diabetes mellitus type: type 1 (9) Medical non-compliance Current Visit: No Status: Chronic (10) Morbid obesity Current Visit: No Status: Chronic Subjective Date of service: 08/04/21 Principal diagnosis: Acute on chronic HFpEF, hypertensive urgency Interval history: Patient is transferred to the floor. Patient resting in bed and reports improvement in breathing Patient not on monitor Objective Vital Signs Temp Pulse Pulse Resp Resp Resp BP 08/04/21 11:46 19 08/04/21 10:48 76 137/105 08/04/21 10:47 76 137/105 08/04/21 10:44 19 08/04/21 10:40 76 137/105 08/04/21 09:31 08/04/21 09:30 88 20 08/04/21 06:22 08/04/21 04:00 97.6 F 56 L 16 166/94 08/04/21 01:49 08/04/21 00:36 08/03/21 23:55 81 20 08/03/21 23:33 111/75 08/03/21 23:20 111/75 08/03/21 23:08 08/03/21 23:01 08/03/21 22:59 08/03/21 22:37 124/75 08/03/21 21:40 97.5 F L 67 18 164/97 08/03/21 21:27 100 H 22 08/03/21 21:26 100 H 22 08/03/21 21:25 08/03/21 19:45 63 26 H 157/88 08/03/21 19:31 65 13 149/78 08/03/21 19:15 65 15 149/78 08/03/21 19:01 76 17 145/74 08/03/21 18:31 74 14 118/65 08/03/21 18:15 72 13 118/65 08/03/21 18:01 66 14 155/85 08/03/21 17:45 91 H 20 150/83 08/03/21 17:31 86 17 130/68 08/03/21 17:15 66 11 L 130/68 08/03/21 17:01 65 12 122/69 08/03/21 16:45 67 12 120/74 08/03/21 16:31 76 12 134/74 08/03/21 16:15 73 12 134/74 08/03/21 16:03 08/03/21 16:01 69 11 L 122/76 08/03/21 15:45 69 12 134/68 08/03/21 15:31 78 14 157/133 08/03/21 15:23 08/03/21 15:15 78 22 157/133 08/03/21 15:06 08/03/21 15:01 79 15 154/80 08/03/21 14:54 08/03/21 14:53 67 16 08/03/21 14:45 70 18 147/78 08/03/21 14:31 78 21 154/117 08/03/21 14:15 67 15 154/117 08/03/21 14:01 69 14 141/91 08/03/21 13:45 68 14 145/82 08/03/21 13:31 71 14 149/75 08/03/21 13:15 86 18 149/75 08/03/21 13:01 86 24 150/84 08/03/21 12:51 74 26 H 149/75 08/03/21 12:41 66 15 149/75 BP Pulse Ox 08/04/21 11:46 08/04/21 10:48 08/04/21 10:47 08/04/21 10:44 08/04/21 10:40 08/04/21 09:31 96 08/04/21 09:30 08/04/21 06:22 98 08/04/21 04:00 90 08/04/21 01:49 98 08/04/21 00:36 95 08/03/21 23:55 08/03/21 23:33 08/03/21 23:20 98 08/03/21 23:08 98 08/03/21 23:01 99 08/03/21 22:59 100 08/03/21 22:37 08/03/21 21:40 91 08/03/21 21:27 08/03/21 21:26 08/03/21 21:25 96 08/03/21 19:45 97 08/03/21 19:31 94 08/03/21 19:15 94 08/03/21 19:01 93 08/03/21 18:31 97 08/03/21 18:15 98 08/03/21 18:01 94 08/03/21 17:45 85 08/03/21 17:31 95 08/03/21 17:15 96 08/03/21 17:01 98 08/03/21 16:45 97 08/03/21 16:31 98 08/03/21 16:15 98 08/03/21 16:03 122/78 08/03/21 16:01 97 08/03/21 15:45 94 08/03/21 15:31 95 08/03/21 15:23 95 08/03/21 15:15 95 08/03/21 15:06 92 08/03/21 15:01 92 08/03/21 14:54 88 08/03/21 14:53 08/03/21 14:45 88 08/03/21 14:31 86 08/03/21 14:15 86 08/03/21 14:01 85 08/03/21 13:45 82 L 08/03/21 13:31 82 L 08/03/21 13:15 83 L 08/03/21 13:01 84 08/03/21 12:51 83 L 08/03/21 12:41 83 L - Physical Examination General: No Apparent Distress HEENT: Positive: PERRL, Normocephaly Neck: Positive: trachea midline Cardiac: Positive: Reg Rate and Rhythm Lungs: Positive: Decreased Breath Sounds Neuro: Positive: Grossly Intact Abdomen: Positive: Soft Skin: Negative: Rash, Suspicious Lesions Extremities: Present: upper extr. pulses, edema - Labs and Meds CBC 08/04/21 Range/Units 04:17 WBC 5.3 (4.5-11.0) K/mm3 RBC 5.39 H (3.65-5.03) M/mm3 Hgb 11.2 (10.1-14.3) gm/dl Hct 37.3 (30.3-42.9) % Plt Count 262 (140-440) K/mm3 Comprehensive Metabolic Panel 08/04/21 Range/Units 04:17 Sodium 140 (137-145) mmol/L Potassium 4.0 (3.6-5.0) mmol/L Chloride 104.5 (98-107) mmol/L Carbon Dioxide 24 (22-30) mmol/L BUN 21 H (7-17) mg/dL Creatinine 0.8 (0.6-1.2) mg/dL Glucose 91 (65-100) mg/dL Calcium 9.2 (8.4-10.2) mg/dL - Imaging and Cardiology Echo: report reviewed Cardiac cath: report reviewed - EKG Sinus rhythms and dysrhythmias: sinus rhythm Myocardial infarction: lateral PR (old age or in
[2021-08-04] MEDS ORDERED: ALBUTEROL 2.5 MG/3 ML NEBU IH SCH (16:00)
[2021-08-04] MEDS ORDERED: BUMETANIDE 1 MG/4 ML INJ IV SCH (18:00)
[2021-08-04] MEDS: BUMETANIDE 2.5 MG/10 ML VIAL IV SCH (22:59)
[2021-08-04] MEDS: MONTELUKAST 10 MG TAB PO SCH (23:00)
--- NOTE | 2021-08-05 04:22 | Progress Note ---
Assessment and Plan 61 y/o obese female with hypoxic respiratory failure 08/05/21: achieve net negative volume state. Wean FiO2. SUggest walk test prior to discharge 08/04/21: Continue diuresis. Wean FiO2 for sats >88% 1. Will give an additional dose of lasix now 2. Asked RT to use salter if necessary 3. Will order Bipap PRN 4. Hold on steroids for now 5. Guarded Prognosis Subjective Date of service: 08/05/21 Principal diagnosis: Acute on chronic HFpEF, hypertensive urgency Interval history: No further weaning of oxygen done but sats are good enough to wean. BP improved. I/O shows still positive fluid balance as of 420 Objective Vital Signs - 12hr 08/04/21 08/04/21 08/04/21 16:49 19:34 22:05 Temperature 98.2 F 98.1 F Pulse Rate 56 L 61 Pulse Rate [ 72 Bilateral] Respiratory 24 22 Rate Respiratory 22 Rate [Bilateral ] Blood Pressure 124/69 137/67 O2 Sat by Pulse 94 99 89 Oximetry 08/04/21 23:27 Temperature Pulse Rate Pulse Rate [ Bilateral] Respiratory Rate Respiratory Rate [Bilateral ] Blood Pressure O2 Sat by Pulse 98 Oximetry Constitutional: alert, appears uncomfortable, other (morbidly obese) Eyes: non-icteric ENT: oropharynx moist Neck: supple, other (large in circumference) Effort: mildly labored Ascultation: Bilateral: rales Percussion: Bilateral: not dull Tactile fremitus: Bilateral: normal Cardiovascular: regular rate and rhythm Gastrointestinal: normoactive bowel sounds, soft, other (obese) CBC and BMP: 08/04/21 04:17 08/04/21 04:17 ABG, PT/INR, D-dimer: PT/INR, D-dimer PT 14.4 Sec. (12.2-14.9) 08/03/21 01:39 INR 1.01 (0.87-1.13) 08/03/21 01:39 Abnormal lab findings: Abnormal Labs 08/03/21 08/03/21 08/03/21 01:39 01:39 01:39 RBC 5.44 H MCV 70 L MCH 21 L MCHC 29 L RDW 20.9 H Lymph % (Auto) 10.9 L [place] % (Auto) 11.1 H Eos % (Auto) 7.1 H Baso % (Auto) 2.1 H Lymph # (Auto) 0.7 L Lymphocytes % (Manual) Eosinophils % (Manual) Lymphocytes # (Manual) Eosinophils # (Manual) Chloride 107.2 H Carbon Dioxide 18 L BUN 23 H Glucose 127 H POC Glucose Alkaline Phosphatase 176 H CK-MB (CK-2) Rel Index 5.7 H NT-Pro-B Natriuret Pep 7147 H Albumin 3.7 L 08/03/21 08/03/21 08/04/21 08:06 21:41 04:17 RBC 5.39 H MCV 69 L MCH 21 L MCHC RDW 20.8 H Lymph % (Auto) [place] % (Auto) Eos % (Auto) Baso % (Auto) Lymph # (Auto) Lymphocytes % (Manual) 9.0 L Eosinophils % (Manual) 20.0 H Lymphocytes # (Manual) 0.5 L Eosinophils # (Manual) 1.1 H Chloride Carbon Dioxide BUN Glucose POC Glucose 140 H 141 H Alkaline Phosphatase CK-MB (CK-2) Rel Index NT-Pro-B Natriuret Pep Albumin 08/04/21 08/04/21 08/04/21 04:17 08:10 11:24 RBC MCV MCH MCHC RDW Lymph % (Auto) [place] % (Auto) Eos % (Auto) Baso % (Auto) Lymph # (Auto) Lymphocytes % (Manual) Eosinophils % (Manual) Lymphocytes # (Manual) Eosinophils # (Manual) Chloride Carbon Dioxide BUN 21 H Glucose POC Glucose 114 H 115 H Alkaline Phosphatase CK-MB (CK-2) Rel Index NT-Pro-B Natriuret Pep Albumin 08/04/21 16:47 RBC MCV MCH MCHC RDW Lymph % (Auto) [place] % (Auto) Eos % (Auto) Baso % (Auto) Lymph # (Auto) Lymphocytes % (Manual) Eosinophils % (Manual) Lymphocytes # (Manual) Eosinophils # (Manual) Chloride Carbon Dioxide BUN Glucose POC Glucose 107 H Alkaline Phosphatase CK-MB (CK-2) Rel Index NT-Pro-B Natriuret Pep Albumin
[2021-08-05 05:13] LABS: BUN/Creatinine Ratio 33; Blood Urea Nitrogen 30 mg/dL (7-17); Calcium 9.2 mg/dL (8.4-10.2); Hemolysis Index 74
[2021-08-05] MEDS: BUMETANIDE 2.5 MG/10 ML VIAL IV SCH ×2 (06:05→19:18)
[2021-08-05] MEDS: hydrALAZINE 100 MG TAB PO SCH ×3 (06:05→22:48)
[2021-08-05] MEDS: MORPHINE 2 MG/1 ML INJ IV PRN ×3 (06:05→17:23)
[2021-08-05] MEDS: BUDESONIDE 0.5 MG/2 ML NEBU IH SCH ×2 (08:26→19:48)
[2021-08-05] MEDS: IPRATROPIUM/ALBUTEROL SULFATE 3 ML AMPUL.NEB IH SCH ×3 (08:26→19:48)
--- NOTE | 2021-08-05 08:35 | Progress Note ---
Assessment and Plan #Acute hypoxic respiratory failure (improving) -Saturation in the 90s. Agree most likely exacerbated by decompensation of CHF however resolved now. Currently on nasal cannula 2 L/min, if hypoxia worsens will try bipap. - bumex 2 mg IV x 2. - PCCM consulted - recommend bipap qhs. Anticipated discharge 1 to 2 days. Patient will require walk test prior to discharge. #Acute on chronic diastolic congestive heart failure exacerbation Increase lower extremity edema, shortness of breath edema resolving with Bumex. BNP 7147-no evidence of acute heart failure at this particular time. Chest x-ray demonstrates cardiomegaly and bilateral pulmonary interstitial infiltrate - Echo 03/25/2021 EF 50 to 55%, moderate concentric left ventricular hypertrophy. Right ventricle mildly dilated, right ventricle hypokinetic. Left atrium moderately dilated right atrium mildly dilated. Mild to moderate tricuspid regurgitation. Moderate pulmonary hypertension. - bumex 2 mg IV x 2. - per patient she takes lasix 80 mg po daily and has been compliant. -GDMT - may benefit from bumex instead but will defer to cardiology. - Cardiology consulted # CAD with multivessel disease s/p PCI in jun 2018 -[facility] 06/20/2018 successful PCI with intravascular ultrasound of the ramus with DIANELYS which was 100% culprit vessel with DIANELYS. Left main patent, LAD patent. RCA mmoderate to severe tortuosity with mid stent patent, circumflex pateent, ARIELA 50% with sintia 100% with successful PCI. Acute diastolic dysfunction - continue dapt and imdur per cardiology -continue BB Cardiology consulted #Hypertensive emergency -Initially started on nitro GTT, currently on cardene gtt, will attempt to wean off today -Home antihypertensives restarted -Cardiology consultation - PCCM consulted #History of COPD on 4 L home oxygen - does not appear to be in acute exacerbation. - albuterol, ipratropium and budesonide Neb ordered - titrate o2 NC to home requirements #Type 2 diabetes with hyperglycemia - accuchecks ac/hs-very well controlled Accu-Cheks 105 115. - correctional scale insulin - lantus qhs #Essential hypertension -Resume home medication: metoprolol 50mg PO BID, valsartan 160mg PO BID, nifedipine 30mg QD, hydralazine 100mg PO TID, clonidine 0.2mg PO BID Imdur 60mg QD Patient has excellent blood pressure control 130/67 currently. #Obesity, BMI greater than 40 Subjective Date of service: 08/05/21 Principal diagnosis: Acute on chronic HFpEF, hypertensive urgency Interval history: Patient 61-year-old obese female with a history of hypertension, congestive heart failure, COPD on 4 L of home O2, diabetes presents with a 3-day history of shortness of breath dyspnea with minimal exertion. Evaluation patient found to have hypertensive emergency and CHF exacerbation. Was admitted aggressive control of hypertension with nitroglycerin drip and home antihypertensives. Als o underwent aggressive diuresis and currently slowly improving. Not able to wean any more oxygen at this time secondary to hypoxemia. Hospital Course 08/04: Changed diuretics to bumex 2 mg IV bid. Patient UOP appears to be excellent however no accurate recordings. ORder placed for q8hr I/O measurement. Wheezes noted on encounter but patinet oxygenation improved to 4l/min [place]. Will continue aggressive weaning. Patient given additional duoneb and budesonide tx. Will follow cardiology and pulmonary recs 08/05; not able to wean at this particular time secondary to hypoxemia. Patient does appear to be more comfortable. As noted still somewhat positive fluid balance. Blood pressure stable 130/67. Objective - Constitutional Vitals: Vital Signs - 12hr 08/04/21 08/04/21 08/05/21 22:05 23:27 05:59 Temperature 98.1 F 97.8 F Pulse Rate 61 64 Pulse Rate [ Bilateral] Respiratory 22 14 Rate Respiratory Rate [Bilateral ] Blood Pressure 137/67 130/67 O2 Sat by Pulse 89 98 96 Oximetry 08/05/21 08/05/21 08:00 08:32 Temperature Pulse Rate Pulse Rate [ 80 Bilateral] Respiratory Rate Respiratory 18 Rate [Bilateral ] Blood Pressure O2 Sat by Pulse 97 Oximetry General appearance: Present: no acute distress, well-nourished - EENT Eyes: PERRL, EOM intact ENT: hearing intact, clear oral mucosa Ears: bilateral: normal - Neck Neck: supple, normal ROM - Respiratory Respiratory effort: normal Respiratory: bilateral: CTA, rhonchi (Bilateral bases. No wheezing.) - Breasts Breasts: normal - Cardiovascular Rhythm: regular Heart Sounds: Present: S1 & S2. Absent: gallop, rub Extremities: pulses intact, No edema, normal color, Full ROM - Gastrointestinal General gastrointestinal: Present: soft, non-tender, non-distended, normal bowel sounds - Genitourinary Female genitourinary: normal - Integumentary Integumentary: clear, warm, dry - Musculoskeletal Musculoskeletal: 1, strength equal bilaterally - Neurologic Neurologic: moves all extremities - Psychiatric Psychiatric: memory intact, appropriate mood/affect, intact judgment & insight - Labs CBC & Chem 7: 08/04/21 04:17 08/05/21 04:38 Labs: Abnormal lab results 08/04/21 08/04/21 08/04/21 Range/Units 08:10 11:24 16:47 BUN (7-17) mg/dL POC Glucose 114 H 115 H 107 H (70-105) mg/dL 08/05/21 Range/Units 04:38 BUN 30 H (7-17) mg/dL POC Glucose (70-105) mg/dL HEART Score - HEART Score Troponin: Troponin T < 0.010 ng/mL (0.00-0.029) 08/03/21 01:39
[2021-08-05] MEDS: INSULIN LISPRO 100 UNIT/ML SUB-Q SCH ×4 (09:12→23:27)
[2021-08-05] MEDS: VALSARTAN 160MG TAB PO SCH ×2 (09:31→23:28)
[2021-08-05] MEDS: ASPIRIN EC 81 MG TAB PO SCH (09:31)
[2021-08-05] MEDS: CELECOXIB 200 MG CAP PO SCH (09:32)
[2021-08-05] MEDS: cloNIDine 0.2 MG TAB PO SCH ×2 (09:32→17:22)
[2021-08-05] MEDS: CLOPIDOGREL 75 MG TAB PO SCH (09:33)
[2021-08-05] MEDS: FAMOTIDINE 20 MG TAB PO SCH ×2 (09:33→22:50)
[2021-08-05] MEDS: METOPROLOL TARTRATE 50 MG TAB PO SCH ×2 (09:34→22:49)
[2021-08-05] MEDS: NIFEdipine XL 30 MG TAB PO SCH (09:34)
[2021-08-05] MEDS: CITALOPRAM 20 MG TAB PO SCH (09:34)
--- NOTE | 2021-08-05 16:08 | Progress Note ---
Assessment and Plan Acute on Chronic Respiratory Failure (on 4L home O2) Acute on Chronic HFpEF COPD Accelerated HTN CAD s/p PCI (2018, on DAPT) DM Morbid Obesity Medical Non-compliance Echo 09/15/2020 - LVEF is 50 to 55%. LV SF is normal. Moderate LVH. RV SF is normal. Moderate pulmonary hypertension cannot be excluded due to poor regurgitant envelope. Echo 03/25/2021 - EF 50 to 55%, moderate concentric left ventricular hypertrophy. Right ventricle mildly dilated, right ventricle hypokinetic. Left atrium moderately dilated, right atrium mildly dilated. Mild to moderate tricuspid regurgitation. Moderate pulmonary hypertension. [facility] 06/20/2018 - successful PCI with intravascular ultrasound of the ramus with DIANELYS which was 100% culprit vessel. Left main patent, LAD patent. RCA mmoderate to severe tortuosity with mid stent patent, Circumflex patent, OM1 50% with ramus 100% with successful PCI. Plan: Continue IV Bumex 2mg BID with strict I/Os and close monitoring of renal indices and electrolytes. Anticipate transition to PO diuretics in the next 1 to 2 days. BP stable on current regimen (Clonidine 0.2 mg twice daily, Lopressor 50 mg twice daily, Valsartan 160 mg twice daily, Nifedipine 30 mg daily, Hydralazine 100 mg 3 times daily, Imdur 60 mg daily). Patient seen in conjunction with Dr. Rangel, who agrees with the assessment and plan of care. - Patient Problems (1) Acute on chronic heart failure with preserved ejection fraction (HFpEF) Current Visit: Yes Status: Acute (2) Accelerated hypertension Current Visit: Yes Status: Acute Subjective Date of service: 08/05/21 Principal diagnosis: HFpEF, Accelerated HTN Interval history: Diuresing well. Breathing continues to improve. Objective Vital Signs Temp Pulse Pulse Resp Resp BP Pulse Ox 08/05/21 13:50 100 08/05/21 13:47 56 L 16 08/05/21 11:17 60 153/87 94 08/05/21 09:34 73 147/76 08/05/21 09:33 73 147/76 08/05/21 09:32 74 147/76 08/05/21 09:31 74 147/76 08/05/21 08:32 97 08/05/21 08:00 80 18 08/05/21 05:59 97.8 F 64 14 130/67 96 08/04/21 23:27 98 08/04/21 22:05 98.1 F 61 22 137/67 89 08/04/21 22:04 60 137/67 90 08/04/21 19:34 72 22 99 08/04/21 16:49 98.2 F 56 L 24 124/69 94 - Physical Examination General: No Apparent Distress HEENT: Positive: EOMI, Normocephaly Neck: Positive: neck supple, trachea midline. Negative: JVD/HJR Cardiac: Positive: Reg Rate and Rhythm, S1/S2 Lungs: Positive: Rales Neuro: Positive: Grossly Intact Abdomen: Positive: Soft Skin: Negative: Rash Extremities: Present: edema - Labs and Meds Comprehensive Metabolic Panel 08/05/21 Range/Units 04:38 Sodium 141 (137-145) mmol/L Potassium 4.7 (3.6-5.0) mmol/L Chloride 105.2 (98-107) mmol/L Carbon Dioxide 24 (22-30) mmol/L BUN 30 H (7-17) mg/dL Creatinine 0.9 (0.6-1.2) mg/dL Glucose 98 (65-100) mg/dL Calcium 9.2 (8.4-10.2) mg/dL - Imaging and Cardiology EKG: report reviewed, image reviewed Echo: report reviewed Cardiac cath: report reviewed - Telemetry EKG Rhythm: Sinus Rhythm - EKG Sinus rhythms and dysrhythmias: sinus rhythm Myocardial infarction: lateral MS (old age or in
[2021-08-05] MEDS: MONTELUKAST 10 MG TAB PO SCH (22:50)
[2021-08-06] MEDS: MORPHINE 2 MG/1 ML INJ IV PRN (05:36)
[2021-08-06] MEDS: hydrALAZINE 100 MG TAB PO SCH ×2 (06:34→22:38)
[2021-08-06] MEDS: BUMETANIDE 2.5 MG/10 ML VIAL IV SCH (07:30)
--- NOTE | 2021-08-06 08:12 | Progress Note ---
Assessment and Plan 61 y/o obese female with hypoxic respiratory failure 08/06/21: Patient changed to bumex. Still positive based on yesterday's I/o. Wean FiO2 as tolerated. Walk test prior to discharge as per patient she is not on oxygen therapy at home. 08/05/21: achieve net negative volume state. Wean FiO2. SUggest walk test prior to discharge 08/04/21: Continue diuresis. Wean FiO2 for sats >88% 1. Will give an additional dose of lasix now 2. Asked RT to use salter if necessary 3. Will order Bipap PRN 4. Hold on steroids for now 5. Guarded Prognosis Subjective Date of service: 08/06/21 Principal diagnosis: HFpEF, Accelerated HTN Interval history: No acute events. Still on 4 liters with good sats. Objective Vital Signs - 12hr 08/05/21 08/05/21 08/06/21 22:35 22:49 03:00 Temperature 97.6 F Pulse Rate 59 L 59 L Respiratory 20 Rate Blood Pressure 123/67 123/67 Blood Pressure [Left] O2 Sat by Pulse 95 98 Oximetry 08/06/21 08/06/21 05:03 05:07 Temperature 97.7 F Pulse Rate 54 L Respiratory 20 Rate Blood Pressure Blood Pressure 106/57 [Left] O2 Sat by Pulse 98 Oximetry Constitutional: alert, appears uncomfortable, other (morbidly obese) Eyes: non-icteric ENT: oropharynx moist Neck: supple, other (large in circumference) Effort: mildly labored Ascultation: Bilateral: rales Percussion: Bilateral: not dull Tactile fremitus: Bilateral: normal Cardiovascular: regular rate and rhythm Gastrointestinal: normoactive bowel sounds, soft, other (obese) CBC and BMP: 08/04/21 04:17 08/05/21 04:38 ABG, PT/INR, D-dimer: PT/INR, D-dimer PT 14.4 Sec. (12.2-14.9) 08/03/21 01:39 INR 1.01 (0.87-1.13) 08/03/21 01:39 Abnormal lab findings: Abnormal Labs 08/03/21 08/03/21 08/03/21 01:39 01:39 01:39 RBC 5.44 H MCV 70 L MCH 21 L MCHC 29 L RDW 20.9 H Lymph % (Auto) 10.9 L [place] % (Auto) 11.1 H Eos % (Auto) 7.1 H Baso % (Auto) 2.1 H Lymph # (Auto) 0.7 L Lymphocytes % (Manual) Eosinophils % (Manual) Lymphocytes # (Manual) Eosinophils # (Manual) Chloride 107.2 H Carbon Dioxide 18 L BUN 23 H Glucose 127 H POC Glucose Alkaline Phosphatase 176 H CK-MB (CK-2) Rel Index 5.7 H NT-Pro-B Natriuret Pep 7147 H Albumin 3.7 L 08/03/21 08/03/21 08/04/21 08:06 21:41 04:17 RBC 5.39 H MCV 69 L MCH 21 L MCHC RDW 20.8 H Lymph % (Auto) [place] % (Auto) Eos % (Auto) Baso % (Auto) Lymph # (Auto) Lymphocytes % (Manual) 9.0 L Eosinophils % (Manual) 20.0 H Lymphocytes # (Manual) 0.5 L Eosinophils # (Manual) 1.1 H Chloride Carbon Dioxide BUN Glucose POC Glucose 140 H 141 H Alkaline Phosphatase CK-MB (CK-2) Rel Index NT-Pro-B Natriuret Pep Albumin 08/04/21 08/04/21 08/04/21 04:17 08:10 11:24 RBC MCV MCH MCHC RDW Lymph % (Auto) [place] % (Auto) Eos % (Auto) Baso % (Auto) Lymph # (Auto) Lymphocytes % (Manual) Eosinophils % (Manual) Lymphocytes # (Manual) Eosinophils # (Manual) Chloride Carbon Dioxide BUN 21 H Glucose POC Glucose 114 H 115 H Alkaline Phosphatase CK-MB (CK-2) Rel Index NT-Pro-B Natriuret Pep Albumin 08/04/21 08/05/21 08/05/21 16:47 04:38 16:03 RBC MCV MCH MCHC RDW Lymph % (Auto) [place] % (Auto) Eos % (Auto) Baso % (Auto) Lymph # (Auto) Lymphocytes % (Manual) Eosinophils % (Manual) Lymphocytes # (Manual) Eosinophils # (Manual) Chloride Carbon Dioxide BUN 30 H Glucose POC Glucose 107 H 115 H Alkaline Phosphatase CK-MB (CK-2) Rel Index NT-Pro-B Natriuret Pep Albumin 08/05/21 20:58 RBC MCV MCH MCHC RDW Lymph % (Auto) [place] % (Auto) Eos % (Auto) Baso % (Auto) Lymph # (Auto) Lymphocytes % (Manual) Eosinophils % (Manual) Lymphocytes # (Manual) Eosinophils # (Manual) Chloride Carbon Dioxide BUN Glucose POC Glucose 111 H Alkaline Phosphatase CK-MB (CK-2) Rel Index NT-Pro-B Natriuret Pep Albumin
[2021-08-06] MEDS: IPRATROPIUM/ALBUTEROL SULFATE 3 ML AMPUL.NEB IH SCH ×3 (09:26→21:07)
[2021-08-06] MEDS: BUDESONIDE 0.5 MG/2 ML NEBU IH SCH ×2 (09:26→21:07)
[2021-08-06] MEDS: INSULIN LISPRO 100 UNIT/ML SUB-Q SCH ×2 (09:48→18:06)
[2021-08-06] MEDS: ASPIRIN EC 81 MG TAB PO SCH (09:56)
[2021-08-06] MEDS: cloNIDine 0.2 MG TAB PO SCH (09:56)
[2021-08-06] MEDS: VALSARTAN 160MG TAB PO SCH (09:56)
[2021-08-06] MEDS: CELECOXIB 200 MG CAP PO SCH (09:57)
[2021-08-06] MEDS: CITALOPRAM 20 MG TAB PO SCH (09:57)
[2021-08-06] MEDS: FAMOTIDINE 20 MG TAB PO SCH ×2 (09:57→22:38)
[2021-08-06] MEDS: METOPROLOL TARTRATE 50 MG TAB PO SCH ×2 (09:57→22:36)
[2021-08-06] MEDS: HYDROmorphone 1 MG/1 ML INJ IV PRN ×2 (09:58→17:11)
[2021-08-06] MEDS: CLOPIDOGREL 75 MG TAB PO SCH (09:58)
[2021-08-06] MEDS: NIFEdipine XL 30 MG TAB PO SCH (09:59)
--- NOTE | 2021-08-06 10:48 | Progress Note ---
Assessment and Plan Accelerated hypertension Acute on chronic HFpEF 55% Acute on chronic hypoxic respiratory failure COPD- on home O2 HTN CAD s/p PCI 2018 DM Obesity Medical noncompliance Echo 09/15/2020-LVEF is 50 to 55%. LV SF is normal. Moderate LVH. RV SF is normal. Moderate pulmonary hypertension cannot be excluded due to poor regurgitant envelope [facility] 06/20/2018 successful PCI with intravascular ultrasound of the ramus with DIANELYS which was 100% culprit vessel with DIANELYS. Left main patent, LAD patent. RCA mmoderate to severe tortuosity with mid stent patent, circumflex pateent, ARIELA 50% with sintia 100% with successful PCI. Acute diastolic dysfunction Echo 03/25/2021 EF 50 to 55%, moderate concentric left ventricular hypertrophy. Right ventricle mildly dilated, right ventricle hypokinetic. Left atrium moderately dilated right atrium mildly dilated. Mild to moderate tricuspid regurgitation. Moderate pulmonary hypertension. Plan: Hypotension this morning Continue metoprolol 50mg PO BID, nifedipine 30mg QD, hydralazine 100mg PO TID, Imdur 60mg QD Consider tritrating down clonidine and valsartan Continue DAPT Decrease bumex 1 mg IV QDay Strict I's and O's Subjective Date of service: 08/06/21 Principal diagnosis: HFpEF, Accelerated HTN Interval history: Patient sitting up in bed states that her breathing is better. She also is complaining of productive cough with green phlegm Objective Vital Signs Temp Pulse Pulse Resp Resp BP BP 08/06/21 10:02 98.4 F 62 18 160/87 08/06/21 09:57 62 160/87 08/06/21 09:56 62 160/87 08/06/21 09:33 08/06/21 09:25 78 18 08/06/21 05:07 97.7 F 20 106/57 08/06/21 05:03 54 L 08/06/21 03:00 08/05/21 22:49 59 L 123/67 08/05/21 22:35 97.6 F 59 L 20 123/67 08/05/21 19:51 55 L 18 08/05/21 17:22 61 139/79 08/05/21 15:58 98.7 F 18 139/79 08/05/21 15:00 08/05/21 13:50 08/05/21 13:47 56 L 16 08/05/21 11:17 60 153/87 Pulse Ox 08/06/21 10:02 91 08/06/21 09:57 08/06/21 09:56 08/06/21 09:33 97 08/06/21 09:25 08/06/21 05:07 08/06/21 05:03 98 08/06/21 03:00 98 08/05/21 22:49 08/05/21 22:35 95 08/05/21 19:51 98 08/05/21 17:22 08/05/21 15:58 08/05/21 15:00 97 08/05/21 13:50 100 08/05/21 13:47 08/05/21 11:17 94 - Physical Examination General: No Apparent Distress HEENT: Positive: EOMI, Normocephaly Neck: Positive: neck supple, trachea midline. Negative: JVD/HJR Cardiac: Positive: Reg Rate and Rhythm Lungs: Positive: Normal Breath Sounds Neuro: Positive: Grossly Intact Abdomen: Positive: Soft Skin: Negative: Rash Extremities: Present: edema - Imaging and Cardiology EKG: report reviewed, image reviewed Echo: report reviewed Cardiac cath: report reviewed - EKG Sinus rhythms and dysrhythmias: sinus rhythm Myocardial infarction: lateral [place] (old age or in
--- NOTE | 2021-08-06 11:00 | Progress Note ---
Assessment and Plan Assessment and plan: #Acute hypoxic respiratory failureresolved -Saturation in the 90s. Agree most likely exacerbated by decompensation of CHF however resolved now. Currently on nasal cannula for L/min, if hypoxia worsens will try bipap. - bumex 2 mg IV daily. - PCCM consulted; appreciate recs - recommend bipap qhs. Will require walk test prior to discharge #Acute on chronic diastolic congestive heart failure exacerbationimproving Increase lower extremity edema, shortness of breath edema resolving with Bumex. BNP 7147-no evidence of acute heart failure at this particular time. Chest x-ray demonstrates cardiomegaly and bilateral pulmonary interstitial infiltrate - Echo 03/25/2021 EF 50 to 55%, moderate concentric left ventricular hy pertrophy. Right ventricle mildly dilated, right ventricle hypokinetic. Left atrium moderately dilated right atrium mildly dilated. Mild to moderate tricuspid regurgitation. Moderate pulmonary hypertension. - bumex 2 mg IV x 2. - per patient she takes lasix 80 mg po daily and has been compliant. -GDMT - may benefit from bumex instead but will defer to cardiology. - Cardiology consulted; appreciate recs # CAD with multivessel disease s/p PCI in jun 2018chron -[facility] 06/20/2018 successful PCI with intravascular ultrasound of the ramus with DIANELYS which was 100% culprit vessel with DIANELYS. Left main patent, LAD patent. RCA mmoderate to severe tortuosity with mid stent patent, circumflex pateent, ARIELA 50% with sintia 100% with successful PCI. Acute diastolic dysfunction - continue dapt and imdur per cardiology -continue BB Cardiology consulted; appreciate recs #Hypertensive emergencyimproving -Initially started on nitro GTT, currently on cardene gtt, will attempt to wean off today -Resume home medication: metoprolol 50mg PO BID, valsartan 160mg PO BID, nifedipine 30mg QD, hydralazine 100mg PO TID, clonidine 0.2mg PO BID Imdur 60mg QD -Cardiology consultation - PCCM consulted; appreciate recs #History of COPD on 4 L home oxygen - does not appear to be in acute exacerbation. - albuterol, ipratropium and budesonide Neb ordered - titrate o2 NC to home requirements #Type 2 diabetes with hyperglycemia - accuchecks ac/hs-very well controlled Accu-Cheks 105 115. - correctional scale insulin - lantus [place] #Morbid obesity #Weight loss counseling #Exercise counseling - BMI 46.1 - Counseled patient on the importance of weight loss, incorporating exercise, and dietary changes (lean meats, fresh fruits and vegetables, and water intake). Patient expresses understanding. - Time: + 15 min #Advanced care planning -Disease education conducted, care plan discussed, diagnoses discussed, prog nosis discussed, and patient acknowledges understanding with care plan -Time: +30 min Disposition Plan: Continue medical management Total Time Spent with Patient (Minutes): 30 minutes History Interval history: No acute events overnight. Hospitalist Physical - Constitutional Vitals: Temp Pulse Resp BP Pulse Ox 98.4 F 62 18 160/87 91 08/06/21 10:02 08/06/21 10:02 08/06/21 10:02 08/06/21 10:02 08/06/21 10:02 General appearance: Present: no acute distress, well-nourished, obese - EENT Eyes: Present: PERRL, EOM intact ENT: hearing intact, clear oral mucosa, dentition normal - Neck Neck: Present: supple, normal ROM - Respiratory Respiratory effort: normal Respiratory: bilateral: diminished (4L nasal cannula) - Cardiovascular Rhythm: regular Heart Sounds: Present: S1 & S2 - Extremities Extremities: no ischemia, pulses intact, pulses symmetrical, normal temperature, normal color Extremity abnormal: edema (1+ pitting edema of bilateral lower extremities to the knees) Peripheral Pulses: within normal limits - Abdominal General gastrointestinal: soft, non-tender, non-distended, normal bowel sounds - Integumentary Integumentary: Present: clear, warm, dry - Psychiatric Psychiatric: appropriate mood/affect, intact judgment & insight, memory intact - Neurologic Neurologic: CNII-XII intact - Allied Health Allied health notes reviewed: nursing HEART Score - HEART Score Troponin: Troponin T < 0.010 ng/mL (0.00-0.029) 08/03/21 01:39 Results - Labs CBC & Chem 7: 08/04/21 04:17 08/05/21 04:38 Labs: Laboratory Last Values WBC 5.3 K/mm3 (4.5-11.0) 08/04/21 04:17 RBC 5.39 M/mm3 (3.65-5.03) H 08/04/21 04:17 Hgb 11.2 gm/dl (10.1-14.3) 08/04/21 04:17 Hct 37.3 % (30.3-42.9) 08/04/21 04:17 MCV 69 fl (79-97) L 08/04/21 04:17 MCH 21 pg (28-32) L 08/04/21 04:17 MCHC 30 % (30-34) 08/04/21 04:17 RDW 20.8 % (13.2-15.2) H 08/04/21 04:17 Plt Count 262 K/mm3 (140-440) 08/04/21 04:17 Lymph % (Auto) 10.9 % (13.4-35.0) L 08/03/21 01:39 [place] % (Auto) 11.1 % (0.0-7.3) H 08/03/21 01:39 Eos % (Auto) Rigging Helper 08/04/21 04:17 Baso % (Auto) 2.1 % (0.0-1.8) H 08/03/21 01:39 Lymph # (Auto) 0.7 K/mm3 (1.2-5.4) L 08/03/21 01:39 Eagle # (Auto) 0.7 K/mm3 (0.0-0.8) 08/03/21 01:39 Eos # (Auto) 0.4 K/mm3 (0.0-0.4) 08/03/21 01:39 Baso # (Auto) 0.1 K/mm3 (0.0-0.1) 08/03/21 01:39 Add Manual Diff Complete 08/04/21 04:17 Total Counted 100 08/04/21 04:17 Seg Neutrophils % 68.8 % (40.0-70.0) 08/03/21 01:39 Seg Neuts % (Manual) 66.0 % (40.0-70.0) 08/04/21 04:17 Band Neutrophils % 0 % 08/04/21 04:17 Lymphocytes % (Manual) 9.0 % (13.4-35.0) L 08/04/21 04:17 Reactive Lymphs % (Man) 0 % 08/04/21 04:17 Monocytes % (Manual) 5.0 % (0.0-7.3) 08/04/21 04:17 Eosinophils % (Manual) 20.0 % (0.0-4.3) H 08/04/21 04:17 Basophils % (Manual) 0 % (0.0-1.8) 08/04/21 04:17 Metamyelocytes % 0 % 08/04/21 04:17 Myelocytes % 0 % 08/04/21 04:17 Promyelocytes % 0 % 08/04/21 04:17 Blast Cells % 0 % 08/04/21 04:17 Nucleated RBC % Not Reportable 08/04/21 04:17 Seg Neutrophils # 4.3 K/mm3 (1.8-7.7) 08/03/21 01:39 Seg Neutrophils # Man 3.5 K/mm3 (1.8-7.7) 08/04/21 04:17 Band Neutrophils # 0.0 K/mm3 08/04/21 04:17 Lymphocytes # (Manual) 0.5 K/mm3 (1.2-5.4) L 08/04/21 04:17 Abs React Lymphs (Man) 0.0 K/mm3 08/04/21 04:17 Monocytes # (Manual) 0.3 K/mm3 (0.0-0.8) 08/04/21 04:17 Eosinophils # (Manual) 1.1 K/mm3 (0.0-0.4) H 08/04/21 04:17 Basophils # (Manual) 0.0 K/mm3 (0.0-0.1) 08/04/21 04:17 Metamyelocytes # 0.0 K/mm3 08/04/21 04:17 Myelocytes # 0.0 K/mm3 08/04/21 04:17 Promyelocytes # 0.0 K/mm3 08/04/21 04:17 Blast Cells # 0.0 K/mm3 08/04/21 04:17 WBC Morphology Not Reportable 08/04/21 04:17 Hypersegmented Neuts Not Reportable 08/04/21 04:17 Hyposegmented Neuts Not Reportable 08/04/21 04:17 Hypogranular Neuts Not Reportable 08/04/21 04:17 Smudge Cells Not Reportable 08/04/21 04:17 Toxic Granulation Not Reportable 08/04/21 04:17 Toxic Vacuolation Not Reportable 08/04/21 04:17 Dohle Bodies Not Reportable 08/04/21 04:17 Pelger-Huet Anomaly Not Reportable 08/04/21 04:17 Juan Rods Not Reportable 08/04/21 04:17 Platelet Estimate Consistent w auto 08/04/21 04:17 Clumped Platelets Not Reportable 08/04/21 04:17 Plt Clumps, EDTA Not Reportable 08/04/21 04:17 Large Platelets Not Reportable 08/04/21 04:17 Giant Platelets Not Reportable 08/04/21 04:17 Platelet Satelliting Not Reportable 08/04/21 04:17 Plt Morphology Comment Not Reportable 08/04/21 04:17 RBC Morphology Not Reportable 08/04/21 04:17 Dimorphic RBCs Not Reportable 08/04/21 04:17 Polychromasia Not Reportable 08/04/21 04:17 Hypochromasia 2+ 08/04/21 04:17 Poikilocytosis Not Reportable 08/04/21 04:17 Anisocytosis 1+ 08/04/21 04:17 Microcytosis 1+ 08/04/21 04:17 Macrocytosis Not Reportable 08/04/21 04:17 Spherocytes Not Reportable 08/04/21 04:17 Pappenheimer Bodies Not Reportable 08/04/21 04:17 Sickle Cells Not Reportable 08/04/21 04:17 Target Cells Not Reportable 08/04/21 04:17 Tear Drop Cells Not Reportable 08/04/21 04:17 Ovalocytes Not Reportable 08/04/21 04:17 Helmet Cells Not Reportable 08/04/21 04:17 Lozano-Dimock Bodies Not Reportable 08/04/21 04:17 [place] Rings Not Reportable 08/04/21 04:17 [place] Cells Not Reportable 08/04/21 04:17 Bite Cells Not Reportable 08/04/21 04:17 Crenated Cell Not Reportable 08/04/21 04:17 Elliptocytes Not Reportable 08/04/21 04:17 Acanthocytes (Spur) Not Reportable 08/04/21 04:17 Rouleaux Not Reportable 08/04/21 04:17 Hemoglobin C Crystals Not Reportable 08/04/21 04:17 Schistocytes Not Reportable 08/04/21 04:17 Malaria parasites Not Reportable 08/04/21 04:17 Didier Bodies Not Reportable 08/04/21 04:17 Hem Pathologist Commnt No 08/04/21 04:17 PT 14.4 Sec. (12.2-14.9) 08/03/21 01:39 INR 1.01 (0.87-1.13) 08/03/21 01:39 Sodium 141 mmol/L (137-145) 08/05/21 04:38 Potassium 4.7 mmol/L (3.6-5.0) 08/05/21 04:38 Chloride 105.2 mmol/L (98-107) 08/05/21 04:38 Carbon Dioxide 24 mmol/L (22-30) 08/05/21 04:38 Anion Gap 17 mmol/L 08/05/21 04:38 BUN 30 mg/dL (7-17) H 08/05/21 04:38 Creatinine 0.9 mg/dL (0.6-1.2) 08/05/21 04:38 Estimated GFR > 60 ml/min 08/05/21 04:38 BUN/Creatinine Ratio 33 % 08/05/21 04:38 Glucose 98 mg/dL (65-100) 08/05/21 04:38 POC Glucose 111 mg/dL (70-105) H 08/05/21 20:58 Calcium 9.2 mg/dL (8.4-10.2) 08/05/21 04:38 Total Bilirubin 0.30 mg/dL (0.1-1.2) 08/03/21 01:39 AST 19 units/L (5-40) 08/03/21 01:39 ALT 23 units/L (7-56) 08/03/21 01:39 Alkaline Phosphatase 176 units/L (35-129) H 08/03/21 01:39 Total Creatine Kinase 57 units/L (30-135) 08/03/21 01:39 CK-MB (CK-2) 3.3 ng/mL (0.0-4.0) 08/03/21 01:39 CK-MB (CK-2) Rel Index 5.7 (0-4) H 08/03/21 01:39 Troponin T < 0.010 ng/mL (0.00-0.029) 08/03/21 01:39 NT-Pro-B Natriuret Pep 7147 pg/mL (0-900) H 08/03/21 01:39 Total Protein 7.6 g/dL (6.3-8.2) 08/03/21 01:39 Albumin 3.7 g/dL (3.9-5) L 08/03/21 01:39 Albumin/Globulin Ratio 0.9 % 08/03/21 01:39 Lipase 23 units/L (13-60) 08/03/21 01:39 Urine Color Yellow (Yellow) 08/03/21 23:39 Urine Turbidity Clear (Clear) 08/03/21 23:39 Urine pH 5.0 (5.0-7.0) 08/03/21 23:39 Ur Specific [place] 1.014 (1.003-1.030) 08/03/21 23:39 Urine Protein <15 mg/dl mg/dL (Negative) 08/03/21 23:39 Urine Glucose (UA) Neg mg/dL (Negative) 08/03/21 23:39 Urine Ketones Neg mg/dL (Negative) 08/03/21 23:39 Urine Blood Neg (Negative) 08/03/21 23:39 Urine Nitrite Pos (Negative) 08/03/21 23:39 Urine Bilirubin Neg (Negative) 08/03/21 23:39 Urine Urobilinogen < 2.0 mg/dL (<2.0) 08/03/21 23:39 Ur Leukocyte Esterase Tr (Negative) 08/03/21 23:39 Urine WBC (Auto) 5.0 /HPF (0.0-6.0) 08/03/21 23:39 Urine RBC (Auto) 1.0 /HPF (0.0-6.0) 08/03/21 23:39 U Epithel Cells (Auto) 1.0 /HPF (0-13.0) 08/03/21 23:39 Urine Mucus Few /HPF 08/03/21 23:39 Urine Opiates Screen Presumptive negative 08/03/21 23:39 Urine Methadone Screen Presumptive negative 08/03/21 23:39 Ur Barbiturates Screen Presumptive negative 08/03/21 23:39 Ur Phencyclidine Scrn Presumptive negative 08/03/21 23:39 Ur Amphetamines Screen Presumptive negative 08/03/21 23:39 U Benzodiazepines Scrn Presumptive negative 08/03/21 23:39 Urine Cocaine Screen Presumptive negative 08/03/21 23:39 U Marijuana (THC) Screen Presumptive negative 08/03/21 23:39 Drugs of Abuse Note Disclamer 08/03/21 23:39 Fabian/IV: Voiding Method External Female Catheter Active Medications - Current Medications Current Medications: Generic Name Dose Route Start Last Admin Trade Name Freq PRN Reason Stop Dose Admin Acetaminophen 650 mg 08/03/21 05:44 08/04/21 08:35 Acetaminophen 325 Mg Tab PO 650 mg Q4H PRN Administration Pain MILD(1-3)/Fever >100.5/ALAS Albuterol 2.5 mg 08/03/21 05:44 08/03/21 14:52 Albuterol 2.5 Mg/3 Ml Nebu IH 2.5 mg Q3HRT PRN Administration Shortness Of Breath Albuterol/Ipratropium 1 ampul 08/04/21 08:00 08/06/21 09:26 Ipratropium/Albuterol Sulfate 3 Ml Ampul.Neb IH 1 ampul TIDRT ANN MARIE Administration Aspirin 81 mg 08/03/21 10:00 08/06/21 09:56 Aspirin Ec 81 Mg Tab PO 81 mg QDAY ANN MARIE Administration Atorvastatin Calcium 40 mg 08/03/21 22:00 08/05/21 22:48 Atorvastatin 40 Mg Tab PO 40 mg QHS ANN MARIE Administration Budesonide 0.5 mg 08/03/21 13:00 08/06/21 09:26 Budesonide 0.5 Mg/2 Ml Nebu IH 0.5 mg Q12HRT ANN MARIE Administration Bumetanide 1 mg 08/07/21 10:00 Bumetanide 1 Mg/4 Ml Inj IV QDAY ANN MARIE Celecoxib 200 mg 08/03/21 10:00 08/06/21 09:57 Celecoxib 200 Mg Cap PO 200 mg DAILY ANN MARIE Administration Citalopram Hydrobromide 20 mg 08/03/21 10:00 08/06/21 09:57 Citalopram 20 Mg Tab PO 20 mg QDAY ANN MARIE Administration Clonidine HCl 0.1 mg 08/06/21 22:00 Clonidine 0.1 Mg Tab PO Q12HR ANN MARIE Clopidogrel Bisulfate 75 mg 08/03/21 10:00 08/06/21 09:58 Clopidogrel 75 Mg Tab PO 75 mg QDAY ANN MARIE Administration Dextrose 0 ml 08/03/21 06:05 Dextrose 10% *Hypoglycemia IV DIRECT PRN Hypoglycemia Protocol Famotidine 20 mg 08/04/21 10:00 08/06/21 09:57 Famotidine 20 Mg Tab PO 20 mg BID ANN MARIE Administration Hydralazine HCl 100 mg 08/03/21 06:00 08/06/21 06:34 Hydralazine 100 Mg Tab PO Not Given Q8HR ANN MARIE Hydromorphone HCl 0.5 mg 08/03/21 05:44 08/06/21 09:58 Hydromorphone 1 Mg/1 Ml Inj IV 0.5 mg Q3H PRN Administration Pain , Severe (7-10) Hydroxyzine Pamoate 25 mg 08/03/21 05:48 Hydroxyzine Pamoate 25 Mg Cap PO BID PRN Anxiety Insulin Human Lispro 0 unit 08/03/21 07:30 08/06/21 09:48 Insulin Lispro 100 Unit/Ml SUB-Q Not Given ACHS [facility] Protocol Isosorbide Mononitrate 60 mg 08/03/21 10:00 08/06/21 09:56 Isosorbide Mononitrate Er 60 Mg Tab PO 60 mg QDAY [facility] Administration Metoprolol Tartrate 50 mg 08/03/21 10:00 08/06/21 09:57 Metoprolol Tartrate 50 Mg Tab PO 50 mg BID ANN AMRIE Administration Montelukast Sodium 10 mg 08/03/21 22:00 08/05/21 22:50 Montelukast 10 Mg Tab PO 10 mg QHS ANN MARIE Administration Morphine Sulfate 2 mg 08/03/21 05:44 08/06/21 05:36 Morphine 2 Mg/1 Ml Inj IV 2 mg Q4H PRN Administration Pain, Moderate (4-6) Nifedipine 30 mg 08/03/21 10:00 08/06/21 09:59 Nifedipine Xl 30 Mg Tab PO 30 mg QDAY [facility] Administration Ondansetron HCl 4 mg 08/03/21 05:44 Ondansetron 4 Mg/2 Ml Inj IV Q8H PRN Nausea And Vomiting Sodium Chloride 10 ml 08/03/21 10:00 08/06/21 10:00 Sodium Chloride 0.9% 10 Ml Flush Syringe IV 10 ml BID ANN MARIE Administration Sodium Chloride 10 ml 08/03/21 05:44 Sodium Chloride 0.9% 10 Ml Flush Syringe IV PRN PRN LINE FLUSH Valsartan 160 mg 08/07/21 10:00 Valsartan 160mg Tab PO DAILY ANN MARIE Nutrition/Malnutrition Assess - Dietary Evaluation Nutrition/Malnutrition Findings: Nutrition Notes Start: 08/03/21 17:44 Freq: Status: Active Protocol: Document 08/03/21 17:44 FREDERICK (Rec: 08/03/21 17:49 FREDERICK [id number]) Nutrition Notes Need for Assessment generated from: MD Order,Education Initial or Follow up Brief Note Current Diagnosis COPD,Diabetes,Hypertension Other Pertinent Diagnosis Chest Pain, CHF. Current Diet Cardiac Diet (since B 08/03). Height 5 ft 5 in Weight 113.398 kg [place] Body Weight (kg) 56.81 BMI 41.5 Weight change and time frame None reported at admission. Weight Status Morbidly Obese Subjective/Other Information RD consult for Nutrition Education. No reports available on Pt's PO intake of meals at the time , will assess at F/U. Pt still in critical condition , not a candidate for Nutrition Education at the time, will assess feasibility on F/U. Percent of energy/protein needs met: Prescribed Cardiac Diet provides for energy/protein needs (2,230 Kcal/85 g) during LOS. Nutrition Intervention Follow-Up By: 08/10/21 Additional Comments Nutrition education will be provided on F/U, if feasible. Continue monitoring food tolerance, %PO intake of meals , and BM.
[2021-08-06] MEDS: MONTELUKAST 10 MG TAB PO SCH (22:36)
[2021-08-06] MEDS: cloNIDine 0.1 MG TAB PO SCH (22:38)
[2021-08-07] MEDS: INSULIN LISPRO 100 UNIT/ML SUB-Q SCH ×5 (00:31→23:58)
[2021-08-07] MEDS: hydrALAZINE 100 MG TAB PO SCH ×3 (05:43→23:58)
[2021-08-07] MEDS: BUDESONIDE 0.5 MG/2 ML NEBU IH SCH ×2 (09:29→20:47)
[2021-08-07] MEDS: IPRATROPIUM/ALBUTEROL SULFATE 3 ML AMPUL.NEB IH SCH ×3 (09:29→20:47)
[2021-08-07] MEDS: CITALOPRAM 20 MG TAB PO SCH (10:40)
--- NOTE | 2021-08-07 13:33 | Progress Note ---
Assessment and Plan This patient is a 61 y/o female with a PMHX of CAD s/p PCI in 2019 on DAPT, DM, HFpEF(EF50-55%), HTN, COPD on home 02, medical noncompliance who presented to ED 08/03/21 with a complaint of shortness of breath x3 to 4 daysHypertensive emergency Assessment: Accelerated hypertension Acute on chronic HFpEF 55% Acute on chronic hypoxic respiratory failure COPD- on home O2 HTN CAD s/p PCI 2018 DM Obesity Medical noncompliance Cardiographics: Echo 03/25/2021 EF 50 to 55%, moderate concentric left ventricular hypertrophy. Right ventricle mildly dilated, right ventricle hypokinetic. Left atrium moderately dilated right atrium mildly dilated. Mild to moderate tricuspid regurgitation. Moderate pulmonary hypertension. Echo 09/15/2020-LVEF is 50 to 55%. LV SF is normal. Moderate LVH. RV SF is normal. Moderate pulmonary hypertension cannot be excluded due to poor regurgitant envelope C 06/20/2018 successful PCI with intravascular ultrasound of the ramus with DIANELYS which was 100% culprit vessel with DIANELYS. Left main patent, LAD patent. RCA mmoderate to severe tortuosity with mid stent patent, circumflex pateent, ARIELA 50% with sintia 100% with successful PCI. Acute diastolic dysfunction Plan: Continue metoprolol 50mg PO BID, nifedipine 30mg QD, hydralazine 100mg PO TID, Imdur 60mg QD, Clonidine 0.1 mg PO Q12, and Valsartain 160 mg PO Qday Bumex 1mg IV x 1 today. Then, transition to PO tomorrow prior to discharge. Continue DAPT (Aspirin, Plavix) Continue lipitor 40 mg PO QHS Strict I's and O's, Daily weights Patient seen in conjunction with Dr. Hernandez who agrees with the assessment and management of this patient. Subjective Date of service: 08/07/21 Principal diagnosis: HFpEF, Accelerated HTN Interval history: Patient doing well this morning. No apparent distress. She discussed her weight loss of >100 pounds. She states she is having great urine output and would like 1 more day of IV diuretics. No chest pain or shortness of breath Weight Weight 113.398 kg Weight 113.398 kg Weight 113.398 kg Intake & Output 08/06/21 08/07/21 08/07/21 23:59 11:59 23:59 Intake Total 1020 1500 Output Total 1400 2 Balance -380 1498 Intake: Oral 1020 700 Intake, Free Water 800 Output: Urine 1400 2 Void 2 Stool 0 Other: Total, Intake Amount 120 700 Total, Output Amount 2 Voiding Method External Female Catheter External Female Catheter # Voids Void 2 Objective Vital Signs Temp Pulse Pulse Resp Resp BP Pulse Ox 08/07/21 11:25 54 L 20 154/79 97 08/07/21 09:42 96 08/07/21 09:28 55 L 18 08/07/21 03:28 99.1 F 55 L 18 125/72 97 08/07/21 02:48 98 08/06/21 22:40 97.6 F 18 08/06/21 22:36 55 L 131/69 08/06/21 21:10 53 L 18 98 08/06/21 15:59 97.3 F L 54 L 18 125/72 95 08/06/21 15:00 99 08/06/21 14:53 80 18 - Physical Examination General: Appears Well, No Apparent Distress HEENT: Positive: EOMI, Normocephaly Neck: Positive: neck supple, trachea midline. Negative: JVD/HJR Cardiac: Positive: Reg Rate and Rhythm Lungs: Positive: Decreased Breath Sounds Neuro: Positive: Grossly Intact Abdomen: Positive: Soft Skin: Negative: Rash Extremities: Present: edema (Minimal) - Imaging and Cardiology EKG: report reviewed, image reviewed Echo: report reviewed Cardiac cath: report reviewed - EKG Sinus rhythms and dysrhythmias: sinus rhythm Myocardial infarction: lateral [place] (old age or in
[2021-08-07] MEDS: BUMETANIDE 2.5 MG/10 ML VIAL IV SCH (14:28)
[2021-08-07] MEDS: VALSARTAN 160MG TAB PO SCH (14:32)
[2021-08-07] MEDS: ASPIRIN EC 81 MG TAB PO SCH (14:32)
[2021-08-07] MEDS: CELECOXIB 200 MG CAP PO SCH (14:32)
[2021-08-07] MEDS: FAMOTIDINE 20 MG TAB PO SCH ×2 (14:33→23:54)
[2021-08-07] MEDS: CLOPIDOGREL 75 MG TAB PO SCH (14:33)
[2021-08-07] MEDS: NIFEdipine XL 30 MG TAB PO SCH (14:33)
[2021-08-07] MEDS: METOPROLOL TARTRATE 50 MG TAB PO SCH ×2 (14:34→23:59)
[2021-08-07] MEDS: cloNIDine 0.1 MG TAB PO SCH ×2 (14:34→23:59)
[2021-08-07] MEDS: HYDROmorphone 1 MG/1 ML INJ IV PRN (15:03)
--- NOTE | 2021-08-07 16:24 | Progress Note ---
Assessment and Plan 61 y/o obese female with hypoxic respiratory failure 08/07/21: better with bumex but only slightly if accurate (per chart negative 80cc's). Continue to diurese and wean FiO2 as tolerated. 08/06/21: Patient changed to bumex. Still positive based on yesterday's I/o. Wean FiO2 as tolerated. Walk test prior to discharge as per patient she is not on oxygen therapy at home. 08/05/21: achieve net negative volume state. Wean FiO2. SUggest walk test prior to discharge 08/04/21: Continue diuresis. Wean FiO2 for sats >88% 1. Will give an additional dose of lasix now 2. Asked RT to use salter if necessary 3. Will order Bipap PRN 4. Hold on steroids for now 5. Guarded Prognosis Subjective Date of service: 08/07/21 Principal diagnosis: HFpEF, Accelerated HTN Interval history: No acute events. STill on 4 liters. still diuresing Objective Vital Signs - 12hr 08/07/21 08/07/21 08/07/21 09:28 09:42 11:25 Pulse Rate 54 L Pulse Rate [ 55 L Bilateral] Respiratory 20 Rate Respiratory 18 Rate [Bilateral ] Blood Pressure 154/79 O2 Sat by Pulse 96 97 Oximetry 08/07/21 15:41 Pulse Rate Pulse Rate [ 68 Bilateral] Respiratory Rate Respiratory 18 Rate [Bilateral ] Blood Pressure O2 Sat by Pulse Oximetry Constitutional: alert, appears uncomfortable, other (morbidly obese) Eyes: non-icteric ENT: oropharynx moist Neck: supple, other (large in circumference) Effort: mildly labored Ascultation: Bilateral: rales Percussion: Bilateral: not dull Tactile fremitus: Bilateral: normal Cardiovascular: regular rate and rhythm Gastrointestinal: normoactive bowel sounds, soft, other (obese) CBC and BMP: 08/04/21 04:17 08/05/21 04:38 ABG, PT/INR, D-dimer: PT/INR, D-dimer PT 14.4 Sec. (12.2-14.9) 08/03/21 01:39 INR 1.01 (0.87-1.13) 08/03/21 01:39 Abnormal lab findings: Abnormal Labs 08/03/21 08/03/21 08/03/21 01:39 01:39 01:39 RBC 5.44 H MCV 70 L MCH 21 L MCHC 29 L RDW 20.9 H Lymph % (Auto) 10.9 L [place] % (Auto) 11.1 H Eos % (Auto) 7.1 H Baso % (Auto) 2.1 H Lymph # (Auto) 0.7 L Lymphocytes % (Manual) Eosinophils % (Manual) Lymphocytes # (Manual) Eosinophils # (Manual) Chloride 107.2 H Carbon Dioxide 18 L BUN 23 H Glucose 127 H POC Glucose Alkaline Phosphatase 176 H CK-MB (CK-2) Rel Index 5.7 H NT-Pro-B Natriuret Pep 7147 H Albumin 3.7 L 08/03/21 08/03/21 08/04/21 08:06 21:41 04:17 RBC 5.39 H MCV 69 L MCH 21 L MCHC RDW 20.8 H Lymph % (Auto) [place] % (Auto) Eos % (Auto) Baso % (Auto) Lymph # (Auto) Lymphocytes % (Manual) 9.0 L Eosinophils % (Manual) 20.0 H Lymphocytes # (Manual) 0.5 L Eosinophils # (Manual) 1.1 H Chloride Carbon Dioxide BUN Glucose POC Glucose 140 H 141 H Alkaline Phosphatase CK-MB (CK-2) Rel Index NT-Pro-B Natriuret Pep Albumin 08/04/21 08/04/21 08/04/21 04:17 08:10 11:24 RBC MCV MCH MCHC RDW Lymph % (Auto) [place] % (Auto) Eos % (Auto) Baso % (Auto) Lymph # (Auto) Lymphocytes % (Manual) Eosinophils % (Manual) Lymphocytes # (Manual) Eosinophils # (Manual) Chloride Carbon Dioxide BUN 21 H Glucose POC Glucose 114 H 115 H Alkaline Phosphatase CK-MB (CK-2) Rel Index NT-Pro-B Natriuret Pep Albumin 08/04/21 08/05/21 08/05/21 16:47 04:38 16:03 RBC MCV MCH MCHC RDW Lymph % (Auto) [place] % (Auto) Eos % (Auto) Baso % (Auto) Lymph # (Auto) Lymphocytes % (Manual) Eosinophils % (Manual) Lymphocytes # (Manual) Eosinophils # (Manual) Chloride Carbon Dioxide BUN 30 H Glucose POC Glucose 107 H 115 H Alkaline Phosphatase CK-MB (CK-2) Rel Index NT-Pro-B Natriuret Pep Albumin 08/05/21 08/06/21 20:58 22:19 RBC MCV MCH MCHC RDW Lymph % (Auto) [place] % (Auto) Eos % (Auto) Baso % (Auto) Lymph # (Auto) Lymphocytes % (Manual) Eosinophils % (Manual) Lymphocytes # (Manual) Eosinophils # (Manual) Chloride Carbon Dioxide BUN Glucose POC Glucose 111 H 125 H Alkaline Phosphatase CK-MB (CK-2) Rel Index NT-Pro-B Natriuret Pep Albumin
--- NOTE | 2021-08-07 16:40 | Progress Note ---
Assessment and Plan Assessment and plan: #Acute hypoxic respiratory failure -Saturation in the 90s. Agree most likely exacerbated by decompensation of CHF however resolved now. Currently on nasal cannula for 4L/min, if hypoxia worsens will try bipap. - bumex 2 mg IV daily. - PCCM consulted; appreciate recs - recommend bipap qhs. Will require walk test prior to discharge #Acute on chronic diastolic congestive heart failure exacerbationimproving Increase lower extremity edema, shortness of breath edema resolving with Bumex. BNP 7147-no evidence of acute heart failure at this particular time. Chest x-ray demonstrates cardiomegaly and bilateral pulmonary interstitial infiltrate - Echo 03/25/2021 EF 50 to 55%, moderate concentric left ventricular hypertroph y. Right ventricle mildly dilated, right ventricle hypokinetic. Left atrium moderately dilated right atrium mildly dilated. Mild to moderate tricuspid regurgitation. Moderate pulmonary hypertension. - bumex 2 mg IV x 2. - per patient she takes lasix 80 mg po daily and has been compliant. -GDMT - may benefit from bumex instead but will defer to cardiology. - Cardiology consulted; appreciate recs # CAD with multivessel disease s/p PCI in jun 2018chron -[facility] 06/20/2018 successful PCI with intravascular ultrasound of the ramus with DIANELYS which was 100% culprit vessel with DIANELYS. Left main patent, LAD patent. RCA mmoderate to severe tortuosity with mid stent patent, circumflex pateent, ARIELA 50% with sintia 100% with successful PCI. Acute diastolic dysfunction - continue dapt and imdur per cardiology -continue BB Cardiology consulted; appreciate recs #Hypertensive emergencyimproving -Initially started on nitro GTT, currently on cardene gtt, will attempt to wean off today -Resume home medication: metoprolol 50mg PO BID, valsartan 160mg PO BID, nifedipine 30mg QD, hydralazine 100mg PO TID, clonidine 0.2mg PO BID Imdur 60mg QD -Cardiology consultation - PCCM consulted; appreciate recs #History of COPD on 4 L home oxygen - does not appear to be in acute exacerbation. - albuterol, ipratropium and budesonide Neb ordered - titrate o2 NC to home requirements #Type 2 diabetes with hyperglycemia - accuchecks ac/hs-very well controlled Accu-Cheks 105 115. - correctional scale insulin - lantus [facility] #Noncompliance Patient has been counseled at length on multiple admissions about importance of medication compliance and following up with physicians in clinic; however, the patient continues to display actions contrary to medical recommendations #Morbid obesity #Weight loss counseling #Exercise counseling - BMI 46.1 - Counseled patient on the importance of weight loss, incorporating exercise, and dietary changes (lean meats, fresh fruits and vegetables, and water intake). Patient expresses understanding. - Time: + 15 min #Advanced care planning -Disease education conducted, care plan discussed, diagnoses discussed, prognosis discussed, and patient acknowledges understanding with care plan -Time: +30 min Disposition Plan: Continue medical management Total Time Spent with Patient (Minutes): 30 minutes History Interval history: No acute events overnight. Hospitalist Physical - Constitutional Vitals: Temp Pulse Resp BP Pulse Ox 99.1 F 68 18 154/79 97 08/07/21 03:28 08/07/21 15:41 08/07/21 15:41 08/07/21 11:25 08/07/21 11:25 General appearance: Present: no acute distress, well-nourished, obese - EENT Eyes: Present: PERRL, EOM intact ENT: hearing intact, clear oral mucosa - Neck Neck: Present: supple, normal ROM - Respiratory Respiratory: bilateral: diminished (On 4 L nasal cannula) - Cardiovascular Rhythm: regular Heart Sounds: Present: S1 & S2 - Extremities Extremities: no ischemia, pulses intact, pulses symmetrical, normal temperature, normal color Extremity abnormal: edema (Trace edema bilateral lower extremities) Peripheral Pulses: within normal limits - Abdominal General gastrointestinal: soft, non-tender, non-distended, normal bowel sounds - Integumentary Integumentary: Present: clear, warm, dry - Psychiatric Psychiatric: appropriate mood/affect - Neurologic Neurologic: CNII-XII intact - Allied Health Allied health notes reviewed: nursing HEART Score - HEART Score Troponin: Troponin T < 0.010 ng/mL (0.00-0.029) 08/03/21 01:39 Results - Labs CBC & Chem 7: 08/04/21 04:17 08/05/21 04:38 Labs: Laboratory Last Values WBC 5.3 K/mm3 (4.5-11.0) 08/04/21 04:17 RBC 5.39 M/mm3 (3.65-5.03) H 08/04/21 04:17 Hgb 11.2 gm/dl (10.1-14.3) 08/04/21 04:17 Hct 37.3 % (30.3-42.9) 08/04/21 04:17 MCV 69 fl (79-97) L 08/04/21 04:17 MCH 21 pg (28-32) L 08/04/21 04:17 MCHC 30 % (30-34) 08/04/21 04:17 RDW 20.8 % (13.2-15.2) H 08/04/21 04:17 Plt Count 262 K/mm3 (140-440) 08/04/21 04:17 Lymph % (Auto) 10.9 % (13.4-35.0) L 08/03/21 01:39 [place] % (Auto) 11.1 % (0.0-7.3) H 08/03/21 01:39 Eos % (Auto) Barkeeper 08/04/21 04:17 Baso % (Auto) 2.1 % (0.0-1.8) H 08/03/21 01:39 Lymph # (Auto) 0.7 K/mm3 (1.2-5.4) L 08/03/21 01:39 [place] # (Auto) 0.7 K/mm3 (0.0-0.8) 08/03/21 01:39 Eos # (Auto) 0.4 K/mm3 (0.0-0.4) 08/03/21 01:39 Baso # (Auto) 0.1 K/mm3 (0.0-0.1) 08/03/21 01:39 Add Manual Diff Complete 08/04/21 04:17 Total Counted 100 08/04/21 04:17 Seg Neutrophils % 68.8 % (40.0-70.0) 08/03/21 01:39 Seg Neuts % (Manual) 66.0 % (40.0-70.0) 08/04/21 04:17 Band Neutrophils % 0 % 08/04/21 04:17 Lymphocytes % (Manual) 9.0 % (13.4-35.0) L 08/04/21 04:17 Reactive Lymphs % (Man) 0 % 08/04/21 04:17 Monocytes % (Manual) 5.0 % (0.0-7.3) 08/04/21 04:17 Eosinophils % (Manual) 20.0 % (0.0-4.3) H 08/04/21 04:17 Basophils % (Manual) 0 % (0.0-1.8) 08/04/21 04:17 Metamyelocytes % 0 % 08/04/21 04:17 Myelocytes % 0 % 08/04/21 04:17 Promyelocytes % 0 % 08/04/21 04:17 Blast Cells % 0 % 08/04/21 04:17 Nucleated RBC % Not Reportable 08/04/21 04:17 Seg Neutrophils # 4.3 K/mm3 (1.8-7.7) 08/03/21 01:39 Seg Neutrophils # Man 3.5 K/mm3 (1.8-7.7) 08/04/21 04:17 Band Neutrophils # 0.0 K/mm3 08/04/21 04:17 Lymphocytes # (Manual) 0.5 K/mm3 (1.2-5.4) L 08/04/21 04:17 Abs React Lymphs (Man) 0.0 K/mm3 08/04/21 04:17 Monocytes # (Manual) 0.3 K/mm3 (0.0-0.8) 08/04/21 04:17 Eosinophils # (Manual) 1.1 K/mm3 (0.0-0.4) H 08/04/21 04:17 Basophils # (Manual) 0.0 K/mm3 (0.0-0.1) 08/04/21 04:17 Metamyelocytes # 0.0 K/mm3 08/04/21 04:17 Myelocytes # 0.0 K/mm3 08/04/21 04:17 Promyelocytes # 0.0 K/mm3 08/04/21 04:17 Blast Cells # 0.0 K/mm3 08/04/21 04:17 WBC Morphology Not Reportable 08/04/21 04:17 Hypersegmented Neuts Not Reportable 08/04/21 04:17 Hyposegmented Neuts Not Reportable 08/04/21 04:17 Hypogranular Neuts Not Reportable 08/04/21 04:17 Smudge Cells Not Reportable 08/04/21 04:17 Toxic Granulation Not Reportable 08/04/21 04:17 Toxic Vacuolation Not Reportable 08/04/21 04:17 Dohle Bodies Not Reportable 08/04/21 04:17 Pelger-Huet Anomaly Not Reportable 08/04/21 04:17 Juan Rods Not Reportable 08/04/21 04:17 Platelet Estimate Consistent w auto 08/04/21 04:17 Clumped Platelets Not Reportable 08/04/21 04:17 Plt Clumps, EDTA Not Reportable 08/04/21 04:17 Large Platelets Not Reportable 08/04/21 04:17 Giant Platelets Not Reportable 08/04/21 04:17 Platelet Satelliting Not Reportable 08/04/21 04:17 Plt Morphology Comment Not Reportable 08/04/21 04:17 RBC Morphology Not Reportable 08/04/21 04:17 Dimorphic RBCs Not Reportable 08/04/21 04:17 Polychromasia Not Reportable 08/04/21 04:17 Hypochromasia 2+ 08/04/21 04:17 Poikilocytosis Not Reportable 08/04/21 04:17 Anisocytosis 1+ 08/04/21 04:17 Microcytosis 1+ 08/04/21 04:17 Macrocytosis Not Reportable 08/04/21 04:17 Spherocytes Not Reportable 08/04/21 04:17 Pappenheimer Bodies Not Reportable 08/04/21 04:17 Sickle Cells Not Reportable 08/04/21 04:17 Target Cells Not Reportable 08/04/21 04:17 Tear Drop Cells Not Reportable 08/04/21 04:17 Ovalocytes Not Reportable 08/04/21 04:17 Helmet Cells Not Reportable 08/04/21 04:17 Lozano-[place] Bodies Not Reportable 08/04/21 04:17 [place] Rings Not Reportable 08/04/21 04:17 Moodus Cells Not Reportable 08/04/21 04:17 Bite Cells Not Reportable 08/04/21 04:17 Crenated Cell Not Reportable 08/04/21 04:17 Elliptocytes Not Reportable 08/04/21 04:17 Acanthocytes (Spur) Not Reportable 08/04/21 04:17 Rouleaux Not Reportable 08/04/21 04:17 Hemoglobin C Crystals Not Reportable 08/04/21 04:17 Schistocytes Not Reportable 08/04/21 04:17 Malaria parasites Not Reportable 08/04/21 04:17 Didier Bodies Not Reportable 08/04/21 04:17 Hem Pathologist Commnt No 08/04/21 04:17 PT 14.4 Sec. (12.2-14.9) 08/03/21 01:39 INR 1.01 (0.87-1.13) 08/03/21 01:39 Sodium 141 mmol/L (137-145) 08/05/21 04:38 Potassium 4.7 mmol/L (3.6-5.0) 08/05/21 04:38 Chloride 105.2 mmol/L (98-107) 08/05/21 04:38 Carbon Dioxide 24 mmol/L (22-30) 08/05/21 04:38 Anion Gap 17 mmol/L 08/05/21 04:38 BUN 30 mg/dL (7-17) H 08/05/21 04:38 Creatinine 0.9 mg/dL (0.6-1.2) 08/05/21 04:38 Estimated GFR > 60 ml/min 08/05/21 04:38 BUN/Creatinine Ratio 33 % 08/05/21 04:38 Glucose 98 mg/dL (65-100) 08/05/21 04:38 POC Glucose 125 mg/dL (70-105) H 08/06/21 22:19 Calcium 9.2 mg/dL (8.4-10.2) 08/05/21 04:38 Total Bilirubin 0.30 mg/dL (0.1-1.2) 08/03/21 01:39 AST 19 units/L (5-40) 08/03/21 01:39 ALT 23 units/L (7-56) 08/03/21 01:39 Alkaline Phosphatase 176 units/L (35-129) H 08/03/21 01:39 Total Creatine Kinase 57 units/L (30-135) 08/03/21 01:39 CK-MB (CK-2) 3.3 ng/mL (0.0-4.0) 08/03/21 01:39 CK-MB (CK-2) Rel Index 5.7 (0-4) H 08/03/21 01:39 Troponin T < 0.010 ng/mL (0.00-0.029) 08/03/21 01:39 NT-Pro-B Natriuret Pep 7147 pg/mL (0-900) H 08/03/21 01:39 Total Protein 7.6 g/dL (6.3-8.2) 08/03/21 01:39 Albumin 3.7 g/dL (3.9-5) L 08/03/21 01:39 Albumin/Globulin Ratio 0.9 % 08/03/21 01:39 Lipase 23 units/L (13-60) 08/03/21 01:39 Urine Color Yellow (Yellow) 08/03/21 23:39 Urine Turbidity Clear (Clear) 08/03/21 23:39 Urine pH 5.0 (5.0-7.0) 08/03/21 23:39 Ur Specific [place] 1.014 (1.003-1.030) 08/03/21 23:39 Urine Protein <15 mg/dl mg/dL (Negative) 08/03/21 23:39 Urine Glucose (UA) Neg mg/dL (Negative) 08/03/21 23:39 Urine Ketones Neg mg/dL (Negative) 08/03/21 23:39 Urine Blood Neg (Negative) 08/03/21 23:39 Urine Nitrite Pos (Negative) 08/03/21 23:39 Urine Bilirubin Neg (Negative) 08/03/21 23:39 Urine Urobilinogen < 2.0 mg/dL (<2.0) 08/03/21 23:39 Ur Leukocyte Esterase Tr (Negative) 08/03/21 23:39 Urine WBC (Auto) 5.0 /HPF (0.0-6.0) 08/03/21 23:39 Urine RBC (Auto) 1.0 /HPF (0.0-6.0) 08/03/21 23:39 U Epithel Cells (Auto) 1.0 /HPF (0-13.0) 08/03/21 23:39 Urine Mucus Few /HPF 08/03/21 23:39 Urine Opiates Screen Presumptive negative 08/03/21 23:39 Urine Methadone Screen Presumptive negative 08/03/21 23:39 Ur Barbiturates Screen Presumptive negative 08/03/21 23:39 Ur Phencyclidine Scrn Presumptive negative 08/03/21 23:39 Ur Amphetamines Screen Presumptive negative 08/03/21 23:39 U Benzodiazepines Scrn Presumptive negative 08/03/21 23:39 Urine Cocaine Screen Presumptive negative 08/03/21 23:39 U Marijuana (THC) Screen Presumptive negative 08/03/21 23:39 Drugs of Abuse Note Disclamer 08/03/21 23:39 Fabian/IV: Voiding Method External Female Catheter Active Medications - Current Medications Current Medications: Generic Name Dose Route Start Last Admin Trade Name Freq PRN Reason Stop Dose Admin Acetaminophen 650 mg 08/03/21 05:44 08/04/21 08:35 Acetaminophen 325 Mg Tab PO 650 mg Q4H PRN Administration Pain MILD(1-3)/Fever >100.5/ALAS Albuterol 2.5 mg 08/03/21 05:44 08/03/21 14:52 Albuterol 2.5 Mg/3 Ml Nebu IH 2.5 mg Q3HRT PRN Administration Shortness Of Breath Albuterol/Ipratropium 1 ampul 08/04/21 08:00 08/07/21 15:38 Ipratropium/Albuterol Sulfate 3 Ml Ampul.Neb IH 1 ampul TIDRT ANN MARIE Administration Aspirin 81 mg 08/03/21 10:00 08/07/21 14:32 Aspirin Ec 81 Mg Tab PO 81 mg QDAY ANN MARIE Administration Atorvastatin Calcium 40 mg 08/03/21 22:00 08/06/21 22:38 Atorvastatin 40 Mg Tab PO 40 mg QHS ANN MARIE Administration Budesonide 0.5 mg 08/03/21 13:00 08/07/21 09:29 Budesonide 0.5 Mg/2 Ml Nebu IH 0.5 mg Q12HRT ANN MARIE Administration Bumetanide 1 mg 08/07/21 10:00 08/07/21 14:28 Bumetanide 2.5 Mg/10 Ml Vial IV 1 mg QDAY ANN MARIE Administration Celecoxib 200 mg 08/03/21 10:00 08/07/21 14:32 Celecoxib 200 Mg Cap PO 200 mg DAILY ANN MARIE Administration Citalopram Hydrobromide 20 mg 08/03/21 10:00 08/06/21 09:57 Citalopram 20 Mg Tab PO 20 mg QDAY ANN MARIE Administration Clonidine HCl 0.1 mg 08/06/21 22:00 08/07/21 14:34 Clonidine 0.1 Mg Tab PO 0.1 mg Q12HR ANN MARIE Administration Clopidogrel Bisulfate 75 mg 08/03/21 10:00 08/07/21 14:33 Clopidogrel 75 Mg Tab PO 75 mg QDAY ANN MARIE Administration Dextrose 0 ml 08/03/21 06:05 Dextrose 10% *Hypoglycemia IV DIRECT PRN Hypoglycemia Protocol Famotidine 20 mg 08/04/21 10:00 08/07/21 14:33 Famotidine 20 Mg Tab PO 20 mg BID ANN MARIE Administration Hydralazine HCl 100 mg 08/03/21 06:00 08/07/21 14:33 Hydralazine 100 Mg Tab PO 100 mg Q8HR ANN MARIE Administration Hydromorphone HCl 0.5 mg 08/03/21 05:44 08/07/21 15:03 Hydromorphone 1 Mg/1 Ml Inj IV 0.5 mg Q3H PRN Administration Pain , Severe (7-10) Hydroxyzine Pamoate 25 mg 08/03/21 05:48 Hydroxyzine Pamoate 25 Mg Cap PO BID PRN Anxiety Insulin Human Lispro 0 unit 08/03/21 07:30 08/07/21 00:31 Insulin Lispro 100 Unit/Ml SUB-Q Not Given ACHS [facility] Protocol Isosorbide Mononitrate 60 mg 08/03/21 10:00 08/07/21 14:32 Isosorbide Mononitrate Er 60 Mg Tab PO 60 mg QDAY [facility] Administration Metoprolol Tartrate 50 mg 08/03/21 10:00 08/07/21 14:34 Metoprolol Tartrate 50 Mg Tab PO 50 mg BID ANN MARIE Administration Montelukast Sodium 10 mg 08/03/21 22:00 08/06/21 22:36 Montelukast 10 Mg Tab PO 10 mg QHS ANN MARIE Administration Morphine Sulfate 2 mg 08/03/21 05:44 08/06/21 05:36 Morphine 2 Mg/1 Ml Inj IV 2 mg Q4H PRN Administration Pain, Moderate (4-6) Nifedipine 30 mg 08/03/21 10:00 08/07/21 14:33 Nifedipine Xl 30 Mg Tab PO 30 mg QDAY ANN MARIE Administration Ondansetron HCl 4 mg 08/03/21 05:44 Ondansetron 4 Mg/2 Ml Inj IV Q8H PRN Nausea And Vomiting Sodium Chloride 10 ml 08/03/21 10:00 08/07/21 14:34 Sodium Chloride 0.9% 10 Ml Flush Syringe IV 10 ml BID ANN MARIE Administration Sodium Chloride 10 ml 08/03/21 05:44 Sodium Chloride 0.9% 10 Ml Flush Syringe IV PRN PRN LINE FLUSH Valsartan 160 mg 08/07/21 10:00 08/07/21 14:32 Valsartan 160mg Tab PO 160 mg DAILY ANN MARIE Administration Nutrition/Malnutrition Assess - Dietary Evaluation Nutrition/Malnutrition Findings: Nutrition Notes Start: 08/03/21 17:44 Freq: Status: Active Protocol: Document 08/03/21 17:44 FREDERICK (Rec: 08/03/21 17:49 FREDERICK [id number]) Nutrition Notes Need for Assessment generated from: MD Order,Education Initial or Follow up Brief Note Current Diagnosis COPD,Diabetes,Hypertension Other Pertinent Diagnosis Chest Pain, CHF. Current Diet Cardiac Diet (since B 08/03). Height 5 ft 5 in Weight 113.398 kg [place] Body Weight (kg) 56.81 BMI 41.5 Weight change and time frame None reported at admission. Weight Status Morbidly Obese Subjective/Other Information RD consult for Nutrition Education. No reports available on Pt's PO intake of meals at the time , will assess at F/U. Pt still in critical condition , not a candidate for Nutrition Education at the time, will assess feasibility on F/U. Percent of energy/protein needs met: Prescribed Cardiac Diet provides for energy/protein needs (2,230 Kcal/85 g) during LOS. Nutrition Intervention Follow-Up By: 08/10/21 Additional Comments Nutrition education will be provided on F/U, if feasible. Continue monitoring food tolerance, %PO intake of meals , and BM.
[2021-08-07] MEDS: MONTELUKAST 10 MG TAB PO SCH (23:54)
[2021-08-08 05:31] LABS: BUN/Creatinine Ratio 44; Blood Urea Nitrogen 35 mg/dL (7-17); Calcium 8.9 mg/dL (8.4-10.2); Hemolysis Index 4
[2021-08-08] MEDS: hydrALAZINE 100 MG TAB PO SCH ×4 (07:05→21:39)
[2021-08-08] MEDS: IPRATROPIUM/ALBUTEROL SULFATE 3 ML AMPUL.NEB IH SCH ×3 (08:59→20:01)
[2021-08-08] MEDS: BUDESONIDE 0.5 MG/2 ML NEBU IH SCH ×2 (08:59→20:01)
[2021-08-08] MEDS: METOPROLOL TARTRATE 50 MG TAB PO SCH ×2 (09:29→21:38)
[2021-08-08] MEDS: NIFEdipine XL 30 MG TAB PO SCH (09:29)
[2021-08-08] MEDS: CITALOPRAM 20 MG TAB PO SCH (09:29)
[2021-08-08] MEDS: ASPIRIN EC 81 MG TAB PO SCH (09:29)
[2021-08-08] MEDS: CELECOXIB 200 MG CAP PO SCH (09:29)
[2021-08-08] MEDS: BUMETANIDE 2.5 MG/10 ML VIAL IV SCH (09:30)
[2021-08-08] MEDS: VALSARTAN 160MG TAB PO SCH (09:30)
[2021-08-08] MEDS: FAMOTIDINE 20 MG TAB PO SCH ×2 (09:30→21:37)
[2021-08-08] MEDS: INSULIN LISPRO 100 UNIT/ML SUB-Q SCH ×4 (09:30→21:40)
[2021-08-08] MEDS: cloNIDine 0.1 MG TAB PO SCH ×2 (09:30→21:37)
[2021-08-08] MEDS: CLOPIDOGREL 75 MG TAB PO SCH (09:30)
[2021-08-08] MEDS: HYDROmorphone 1 MG/1 ML INJ IV PRN ×3 (11:33→21:35)
--- NOTE | 2021-08-08 11:59 | Progress Note ---
Assessment and Plan 61 y/o obese female with hypoxic respiratory failure 08/08/21: Continue to wean FIO2 as tolerated. Will need walk test prior to discharge. 08/07/21: better with bumex but only slightly if accurate (per chart negative 80cc's). Continue to diurese and wean FiO2 as tolerated. 08/06/21: Patient changed to bumex. Still positive based on yesterday's I/o. Wean FiO2 as tolerated. Walk test prior to discharge as per patient she is not on oxygen therapy at home. 08/05/21: achieve net negative volume state. Wean FiO2. SUggest walk test prior to discharge 08/04/21: Continue diuresis. Wean FiO2 for sats >88% 1. Will give an additional dose of lasix now 2. Asked RT to use salter if necessary 3. Will order Bipap PRN 4. Hold on steroids for now 5. Guarded Prognosis Subjective Date of service: 08/08/21 Principal diagnosis: HFpEF, Accelerated HTN Interval history: Dropped to 3 liters NC with good sats. I/O not accurate. Objective Vital Signs - 12hr 08/07/21 08/08/21 08/08/21 23:59 03:00 05:00 Temperature 97.8 F Pulse Rate 54 L 52 L Pulse Rate [ Bilateral] Respiratory 18 Rate Respiratory Rate [Bilateral ] Blood Pressure 104/56 127/63 O2 Sat by Pulse 98 95 Oximetry 08/08/21 08/08/21 08/08/21 08:00 09:00 11:03 Temperature Pulse Rate Pulse Rate [ 68 Bilateral] Respiratory Rate Respiratory 18 Rate [Bilateral ] Blood Pressure O2 Sat by Pulse 98 95 Oximetry Constitutional: alert, appears uncomfortable, other (morbidly obese) Eyes: non-icteric ENT: oropharynx moist Neck: supple, other (large in circumference) Effort: mildly labored Ascultation: Bilateral: rales Percussion: Bilateral: not dull Tactile fremitus: Bilateral: normal Cardiovascular: regular rate and rhythm Gastrointestinal: normoactive bowel sounds, soft, other (obese) CBC and BMP: 08/04/21 04:17 08/08/21 04:34 ABG, PT/INR, D-dimer: PT/INR, D-dimer PT 14.4 Sec. (12.2-14.9) 08/03/21 01:39 INR 1.01 (0.87-1.13) 08/03/21 01:39 Abnormal lab findings: Abnormal Labs 08/03/21 08/03/21 08/03/21 01:39 01:39 01:39 RBC 5.44 H MCV 70 L MCH 21 L MCHC 29 L RDW 20.9 H Lymph % (Auto) 10.9 L [place] % (Auto) 11.1 H Eos % (Auto) 7.1 H Baso % (Auto) 2.1 H Lymph # (Auto) 0.7 L Lymphocytes % (Manual) Eosinophils % (Manual) Lymphocytes # (Manual) Eosinophils # (Manual) Chloride 107.2 H Carbon Dioxide 18 L BUN 23 H Glucose 127 H POC Glucose Alkaline Phosphatase 176 H CK-MB (CK-2) Rel Index 5.7 H NT-Pro-B Natriuret Pep 7147 H Albumin 3.7 L 08/03/21 08/03/21 08/04/21 08:06 21:41 04:17 RBC 5.39 H MCV 69 L MCH 21 L MCHC RDW 20.8 H Lymph % (Auto) [place] % (Auto) Eos % (Auto) Baso % (Auto) Lymph # (Auto) Lymphocytes % (Manual) 9.0 L Eosinophils % (Manual) 20.0 H Lymphocytes # (Manual) 0.5 L Eosinophils # (Manual) 1.1 H Chloride Carbon Dioxide BUN Glucose POC Glucose 140 H 141 H Alkaline Phosphatase CK-MB (CK-2) Rel Index NT-Pro-B Natriuret Pep Albumin 08/04/21 08/04/21 08/04/21 04:17 08:10 11:24 RBC MCV MCH MCHC RDW Lymph % (Auto) [place] % (Auto) Eos % (Auto) Baso % (Auto) Lymph # (Auto) Lymphocytes % (Manual) Eosinophils % (Manual) Lymphocytes # (Manual) Eosinophils # (Manual) Chloride Carbon Dioxide BUN 21 H Glucose POC Glucose 114 H 115 H Alkaline Phosphatase CK-MB (CK-2) Rel Index NT-Pro-B Natriuret Pep Albumin 08/04/21 08/05/21 08/05/21 16:47 04:38 16:03 RBC MCV MCH MCHC RDW Lymph % (Auto) [place] % (Auto) Eos % (Auto) Baso % (Auto) Lymph # (Auto) Lymphocytes % (Manual) Eosinophils % (Manual) Lymphocytes # (Manual) Eosinophils # (Manual) Chloride Carbon Dioxide BUN 30 H Glucose POC Glucose 107 H 115 H Alkaline Phosphatase CK-MB (CK-2) Rel Index NT-Pro-B Natriuret Pep Albumin 08/05/21 08/06/21 08/08/21 20:58 22:19 04:34 RBC MCV MCH MCHC RDW Lymph % (Auto) [place] % (Auto) Eos % (Auto) Baso % (Auto) Lymph # (Auto) Lymphocytes % (Manual) Eosinophils % (Manual) Lymphocytes # (Manual) Eosinophils # (Manual) Chloride Carbon Dioxide BUN 35 H Glucose 104 H POC Glucose 111 H 125 H Alkaline Phosphatase CK-MB (CK-2) Rel Index NT-Pro-B Natriuret Pep Albumin 08/08/21 07:29 RBC MCV MCH MCHC RDW Lymph % (Auto) [place] % (Auto) Eos % (Auto) Baso % (Auto) Lymph # (Auto) Lymphocytes % (Manual) Eosinophils % (Manual) Lymphocytes # (Manual) Eosinophils # (Manual) Chloride Carbon Dioxide BUN Glucose POC Glucose 116 H Alkaline Phosphatase CK-MB (CK-2) Rel Index NT-Pro-B Natriuret Pep Albumin
[2021-08-08] MEDS: BUMETANIDE 1 MG TAB PO SCH (12:17)
--- NOTE | 2021-08-08 12:43 | Progress Note ---
Assessment and Plan Assessment and plan: #Acute on chronic hypoxic respiratory failure-resolved -most likely exacerbated by decompensation of CHF -weaned to 3L/min NC; baseline 4L at home -continue diuresis -Pulmonary following, assistance appreciated -recommend bipap qhs -patient encouraged to follow up with her Primary Hedge Fund Manager at discharge #Acute on chronic diastolic congestive heart failure exacerbationimproving -BNP 7147-no evidence of acute heart failure at this particular time. -Chest x-ray demonstrates cardiomegaly and bilateral pulmonary interstitial infiltrate -Echo 03/25/2021 EF 50 to 55%, moderate concentric left ventricular hypertrophy. Right ventricle mildly dilated, right ventricle hypokinetic. Left atrium moderately dilated right atrium mildly dilated. Mild to moderate tricuspid regurgitation. Moderate pulmonary hypertension. -Cardiology following, assistance appreciated -Outpatient follow up with Dr. Hernandez on 09/11 at 10:15am #CAD with multivessel disease s/p PCI in jun 2018chronic -[facility] 06/20/2018 successful PCI with intravascular ultrasound of the ramus with DIANELYS which was 100% culprit vessel with DIANELYS. Left main patent, LAD patent. RCA mmoderate to severe tortuosity with mid stent patent, circumflex pateent, ARIELA 50% with sintia 100% with successful PCI. Acute diastolic dysfunction -continue dapt and imdur -continue BB #Hypertensive emergencyresolved -s/p nitro and cardene gtt -continue home medication: metoprolol 50mg PO BID, valsartan 160mg PO BID, nifedipine 30mg QD, hydralazine 100mg PO TID, clonidine 0.2mg PO BID Imdur 60mg QD #History of COPD on 4 L home oxygen -does not appear to be in acute exacerbation. -albuterol, ipratropium and budesonide Neb ordered -titrate o2 NC to home requirements -will need albuterol and symbicort at discharge #Type 2 diabetes with hyperglycemia -continue lantus, SSI + accuchecks #Noncompliance Patient has been counseled at length on multiple admissions about importance of medication compliance and following up with physicians in clinic; however, the p atient continues to display actions contrary to medical recommendations #Morbid obesity #Weight loss counseling #Exercise counseling - BMI 46.1 - Counseled patient on the importance of weight loss, incorporating exercise, and dietary changes (lean meats, fresh fruits and vegetables, and water intake). Patient expresses understanding. - Time: + 15 min #Advanced care planning -Disease education conducted, care plan discussed, diagnoses discussed, progno sis discussed, and patient acknowledges understanding with care plan -Time: +30 min History Interval history: No acute events overnight. Patient reports productive cough. Has noticed a decrease in urinary output after change from IV to p.o. diuretics. Does not feel well today. No other complaints at this time. Hospitalist Physical - Physical exam Narrative exam: GENERAL: Obese. In no acute distress. HEENT: Nasal cannula at 3 L/min CHEST/LUNGS: Coarse breath sounds bilaterally. HEART/CARDIOVASCULAR: RRR. No murmur, rubs or gallops appreciated. ABDOMEN: +BS. NT/ND. SKIN: No rashes noted. NEURO: No focal motor deficit. Follows all commands. MUSCULOSKELETAL: No joint effusion EXTREMITIES: No cyanosis, clubbing or edema. PSYCH: Cooperative. - Constitutional Vitals: Temp Pulse Resp BP Pulse Ox 97.8 F 68 18 127/63 95 08/08/21 05:00 08/08/21 08:00 08/08/21 08:00 08/08/21 05:00 08/08/21 11:03 General appearance: Present: no acute distress, well-nourished, obese HEART Score - HEART Score Troponin: Troponin T < 0.010 ng/mL (0.00-0.029) 08/03/21 01:39 Results - Labs CBC & Chem 7: 08/04/21 04:17 08/08/21 04:34 Labs: Laboratory Last Values WBC 5.3 K/mm3 (4.5-11.0) 08/04/21 04:17 RBC 5.39 M/mm3 (3.65-5.03) H 08/04/21 04:17 Hgb 11.2 gm/dl (10.1-14.3) 08/04/21 04:17 Hct 37.3 % (30.3-42.9) 08/04/21 04:17 MCV 69 fl (79-97) L 08/04/21 04:17 MCH 21 pg (28-32) L 08/04/21 04:17 MCHC 30 % (30-34) 08/04/21 04:17 RDW 20.8 % (13.2-15.2) H 08/04/21 04:17 Plt Count 262 K/mm3 (140-440) 08/04/21 04:17 Lymph % (Auto) 10.9 % (13.4-35.0) L 08/03/21 01:39 [place] % (Auto) 11.1 % (0.0-7.3) H 08/03/21 01:39 Eos % (Auto) Freight Manager 08/04/21 04:17 Baso % (Auto) 2.1 % (0.0-1.8) H 08/03/21 01:39 Lymph # (Auto) 0.7 K/mm3 (1.2-5.4) L 08/03/21 01:39 [place] # (Auto) 0.7 K/mm3 (0.0-0.8) 08/03/21 01:39 Eos # (Auto) 0.4 K/mm3 (0.0-0.4) 08/03/21 01:39 Baso # (Auto) 0.1 K/mm3 (0.0-0.1) 08/03/21 01:39 Add Manual Diff Complete 08/04/21 04:17 Total Counted 100 08/04/21 04:17 Seg Neutrophils % 68.8 % (40.0-70.0) 08/03/21 01:39 Seg Neuts % (Manual) 66.0 % (40.0-70.0) 08/04/21 04:17 Band Neutrophils % 0 % 08/04/21 04:17 Lymphocytes % (Manual) 9.0 % (13.4-35.0) L 08/04/21 04:17 Reactive Lymphs % (Man) 0 % 08/04/21 04:17 Monocytes % (Manual) 5.0 % (0.0-7.3) 08/04/21 04:17 Eosinophils % (Manual) 20.0 % (0.0-4.3) H 08/04/21 04:17 Basophils % (Manual) 0 % (0.0-1.8) 08/04/21 04:17 Metamyelocytes % 0 % 08/04/21 04:17 Myelocytes % 0 % 08/04/21 04:17 Promyelocytes % 0 % 08/04/21 04:17 Blast Cells % 0 % 08/04/21 04:17 Nucleated RBC % Not Reportable 08/04/21 04:17 Seg Neutrophils # 4.3 K/mm3 (1.8-7.7) 08/03/21 01:39 Seg Neutrophils # Man 3.5 K/mm3 (1.8-7.7) 08/04/21 04:17 Band Neutrophils # 0.0 K/mm3 08/04/21 04:17 Lymphocytes # (Manual) 0.5 K/mm3 (1.2-5.4) L 08/04/21 04:17 Abs React Lymphs (Man) 0.0 K/mm3 08/04/21 04:17 Monocytes # (Manual) 0.3 K/mm3 (0.0-0.8) 08/04/21 04:17 Eosinophils # (Manual) 1.1 K/mm3 (0.0-0.4) H 08/04/21 04:17 Basophils # (Manual) 0.0 K/mm3 (0.0-0.1) 08/04/21 04:17 Metamyelocytes # 0.0 K/mm3 08/04/21 04:17 Myelocytes # 0.0 K/mm3 08/04/21 04:17 Promyelocytes # 0.0 K/mm3 08/04/21 04:17 Blast Cells # 0.0 K/mm3 08/04/21 04:17 WBC Morphology Not Reportable 08/04/21 04:17 Hypersegmented Neuts Not Reportable 08/04/21 04:17 Hyposegmented Neuts Not Reportable 08/04/21 04:17 Hypogranular Neuts Not Reportable 08/04/21 04:17 Smudge Cells Not Reportable 08/04/21 04:17 Toxic Granulation Not Reportable 08/04/21 04:17 Toxic Vacuolation Not Reportable 08/04/21 04:17 Dohle Bodies Not Reportable 08/04/21 04:17 Pelger-Huet Anomaly Not Reportable 08/04/21 04:17 Juan Rods Not Reportable 08/04/21 04:17 Platelet Estimate Consistent w auto 08/04/21 04:17 Clumped Platelets Not Reportable 08/04/21 04:17 Plt Clumps, EDTA Not Reportable 08/04/21 04:17 Large Platelets Not Reportable 08/04/21 04:17 Giant Platelets Not Reportable 08/04/21 04:17 Platelet Satelliting Not Reportable 08/04/21 04:17 Plt Morphology Comment Not Reportable 08/04/21 04:17 RBC Morphology Not Reportable 08/04/21 04:17 Dimorphic RBCs Not Reportable 08/04/21 04:17 Polychromasia Not Reportable 08/04/21 04:17 Hypochromasia 2+ 08/04/21 04:17 Poikilocytosis Not Reportable 08/04/21 04:17 Anisocytosis 1+ 08/04/21 04:17 Microcytosis 1+ 08/04/21 04:17 Macrocytosis Not Reportable 08/04/21 04:17 Spherocytes Not Reportable 08/04/21 04:17 Pappenheimer Bodies Not Reportable 08/04/21 04:17 Sickle Cells Not Reportable 08/04/21 04:17 Target Cells Not Reportable 08/04/21 04:17 Tear Drop Cells Not Reportable 08/04/21 04:17 Ovalocytes Not Reportable 08/04/21 04:17 Helmet Cells Not Reportable 08/04/21 04:17 [place] Bodies Not Reportable 08/04/21 04:17 [place] Rings Not Reportable 08/04/21 04:17 [place] Cells Not Reportable 08/04/21 04:17 Bite Cells Not Reportable 08/04/21 04:17 Crenated Cell Not Reportable 08/04/21 04:17 Elliptocytes Not Reportable 08/04/21 04:17 Acanthocytes (Spur) Not Reportable 08/04/21 04:17 Rouleaux Not Reportable 08/04/21 04:17 Hemoglobin C Crystals Not Reportable 08/04/21 04:17 Schistocytes Not Reportable 08/04/21 04:17 Malaria parasites Not Reportable 08/04/21 04:17 [place] Bodies Not Reportable 08/04/21 04:17 Hem Pathologist Commnt No 08/04/21 04:17 PT 14.4 Sec. (12.2-14.9) 08/03/21 01:39 INR 1.01 (0.87-1.13) 08/03/21 01:39 Sodium 142 mmol/L (137-145) 08/08/21 04:34 Potassium 4.2 mmol/L (3.6-5.0) 08/08/21 04:34 Chloride 104.4 mmol/L (98-107) 08/08/21 04:34 Carbon Dioxide 25 mmol/L (22-30) 08/08/21 04:34 Anion Gap 17 mmol/L 08/08/21 04:34 BUN 35 mg/dL (7-17) H 08/08/21 04:34 Creatinine 0.8 mg/dL (0.6-1.2) 08/08/21 04:34 Estimated GFR > 60 ml/min 08/08/21 04:34 BUN/Creatinine Ratio 44 % 08/08/21 04:34 Glucose 104 mg/dL (65-100) H 08/08/21 04:34 POC Glucose 116 mg/dL (70-105) H 08/08/21 07:29 Calcium 8.9 mg/dL (8.4-10.2) 08/08/21 04:34 Total Bilirubin 0.30 mg/dL (0.1-1.2) 08/03/21 01:39 AST 19 units/L (5-40) 08/03/21 01:39 ALT 23 units/L (7-56) 08/03/21 01:39 Alkaline Phosphatase 176 units/L (35-129) H 08/03/21 01:39 Total Creatine Kinase 57 units/L (30-135) 08/03/21 01:39 CK-MB (CK-2) 3.3 ng/mL (0.0-4.0) 08/03/21 01:39 CK-MB (CK-2) Rel Index 5.7 (0-4) H 08/03/21 01:39 Troponin T < 0.010 ng/mL (0.00-0.029) 08/03/21 01:39 NT-Pro-B Natriuret Pep 7147 pg/mL (0-900) H 08/03/21 01:39 Total Protein 7.6 g/dL (6.3-8.2) 08/03/21 01:39 Albumin 3.7 g/dL (3.9-5) L 08/03/21 01:39 Albumin/Globulin Ratio 0.9 % 08/03/21 01:39 Lipase 23 units/L (13-60) 08/03/21 01:39 Urine Color Yellow (Yellow) 08/03/21 23:39 Urine Turbidity Clear (Clear) 08/03/21 23:39 Urine pH 5.0 (5.0-7.0) 08/03/21 23:39 Ur Specific [place] 1.014 (1.003-1.030) 08/03/21 23:39 Urine Protein <15 mg/dl mg/dL (Negative) 08/03/21 23:39 Urine Glucose (UA) Neg mg/dL (Negative) 08/03/21 23:39 Urine Ketones Neg mg/dL (Negative) 08/03/21 23:39 Urine Blood Neg (Negative) 08/03/21 23:39 Urine Nitrite Pos (Negative) 08/03/21 23:39 Urine Bilirubin Neg (Negative) 08/03/21 23:39 Urine Urobilinogen < 2.0 mg/dL (<2.0) 08/03/21 23:39 Ur Leukocyte Esterase Tr (Negative) 08/03/21 23:39 Urine WBC (Auto) 5.0 /HPF (0.0-6.0) 08/03/21 23:39 Urine RBC (Auto) 1.0 /HPF (0.0-6.0) 08/03/21 23:39 U Epithel Cells (Auto) 1.0 /HPF (0-13.0) 08/03/21 23:39 Urine Mucus Few /HPF 08/03/21 23:39 Urine Opiates Screen Presumptive negative 08/03/21 23:39 Urine Methadone Screen Presumptive negative 08/03/21 23:39 Ur Barbiturates Screen Presumptive negative 08/03/21 23:39 Ur Phencyclidine Scrn Presumptive negative 08/03/21 23:39 Ur Amphetamines Screen Presumptive negative 08/03/21 23:39 U Benzodiazepines Scrn Presumptive negative 08/03/21 23:39 Urine Cocaine Screen Presumptive negative 08/03/21 23:39 U Marijuana (THC) Screen Presumptive negative 08/03/21 23:39 Drugs of Abuse Note Disclamer 08/03/21 23:39 Fabian/IV: Voiding Method External Female Catheter Active Medications - Current Medications Current Medications: Generic Name Dose Route Start Last Admin Trade Name Freq PRN Reason Stop Dose Admin Acetaminophen 650 mg 08/03/21 05:44 08/04/21 08:35 Acetaminophen 325 Mg Tab PO 650 mg Q4H PRN Administration Pain MILD(1-3)/Fever >100.5/ALAS Albuterol 2.5 mg 08/03/21 05:44 08/03/21 14:52 Albuterol 2.5 Mg/3 Ml Nebu IH 2.5 mg Q3HRT PRN Administration Shortness Of Breath Albuterol/Ipratropium 1 ampul 08/04/21 08:00 08/08/21 08:59 Ipratropium/Albuterol Sulfate 3 Ml Ampul.Neb IH 1 ampul TIDRT ANN MARIE Administration Aspirin 81 mg 08/03/21 10:00 08/08/21 09:29 Aspirin Ec 81 Mg Tab PO 81 mg QDAY ANN MARIE Administration Atorvastatin Calcium 40 mg 08/03/21 22:00 08/07/21 23:55 Atorvastatin 40 Mg Tab PO 40 mg QHS ANN MARIE Administration Budesonide 0.5 mg 08/03/21 13:00 08/08/21 08:59 Budesonide 0.5 Mg/2 Ml Nebu IH 0.5 mg Q12HRT ANN MARIE Administration Bumetanide 1 mg 08/08/21 10:00 08/08/21 12:17 Bumetanide 1 Mg Tab PO 1 mg QDAY ANN MARIE Administration Celecoxib 200 mg 08/03/21 10:00 08/08/21 09:29 Celecoxib 200 Mg Cap PO 200 mg DAILY ANN MARIE Administration Citalopram Hydrobromide 20 mg 08/03/21 10:00 08/08/21 09:29 Citalopram 20 Mg Tab PO 20 mg QDAY ANN MARIE Administration Clonidine HCl 0.1 mg 08/06/21 22:00 08/08/21 09:30 Clonidine 0.1 Mg Tab PO Not Given Q12HR ANN MARIE Clopidogrel Bisulfate 75 mg 08/03/21 10:00 08/08/21 09:30 Clopidogrel 75 Mg Tab PO 75 mg QDAY ANN MARIE Administration Dextrose 0 ml 08/03/21 06:05 Dextrose 10% *Hypoglycemia IV DIRECT PRN Hypoglycemia Protocol Famotidine 20 mg 08/04/21 10:00 08/08/21 09:30 Famotidine 20 Mg Tab PO 20 mg BID ANN MARIE Administration Hydralazine HCl 100 mg 08/03/21 06:00 08/08/21 07:05 Hydralazine 100 Mg Tab PO 100 mg Q8HR ANN MARIE Administration Hydromorphone HCl 0.5 mg 08/03/21 05:44 08/08/21 11:33 Hydromorphone 1 Mg/1 Ml Inj IV 0.5 mg Q3H PRN Administration Pain , Severe (7-10) Hydroxyzine Pamoate 25 mg 08/03/21 05:48 Hydroxyzine Pamoate 25 Mg Cap PO BID PRN Anxiety Insulin Human Lispro 0 unit 08/03/21 07:30 08/08/21 12:15 Insulin Lispro 100 Unit/Ml SUB-Q Not Given ACHS [facility] Protocol Isosorbide Mononitrate 60 mg 08/03/21 10:00 08/08/21 09:28 Isosorbide Mononitrate Er 60 Mg Tab PO 60 mg QDAY [facility] Administration Metoprolol Tartrate 50 mg 08/03/21 10:00 08/08/21 09:29 Metoprolol Tartrate 50 Mg Tab PO 50 mg BID [facility] Administration Mirtazapine 7.5 mg 08/08/21 22:00 Mirtazapine 15 Mg Tab PO QHS [facility] Montelukast Sodium 10 mg 08/03/21 22:00 08/07/21 23:54 Montelukast 10 Mg Tab PO 10 mg QHS [facility] Administration Morphine Sulfate 2 mg 08/03/21 05:44 08/06/21 05:36 Morphine 2 Mg/1 Ml Inj IV 2 mg Q4H PRN Administration Pain, Moderate (4-6) Nifedipine 30 mg 08/03/21 10:00 08/08/21 09:29 Nifedipine Xl 30 Mg Tab PO 30 mg QDAY [facility] Administration Ondansetron HCl 4 mg 08/03/21 05:44 Ondansetron 4 Mg/2 Ml Inj IV Q8H PRN Nausea And Vomiting Sodium Chloride 10 ml 08/03/21 10:00 08/08/21 09:31 Sodium Chloride 0.9% 10 Ml Flush Syringe IV 10 ml BID ANN MARIE Administration Sodium Chloride 10 ml 08/03/21 05:44 Sodium Chloride 0.9% 10 Ml Flush Syringe IV PRN PRN LINE FLUSH Valsartan 160 mg 08/07/21 10:00 08/08/21 09:30 Valsartan 160mg Tab PO 160 mg DAILY ANN MARIE Administration Nutrition/Malnutrition Assess - Dietary Evaluation Nutrition/Malnutrition Findings: Nutrition Notes Start: 08/03/21 17:44 Freq: Status: Active Protocol: Document 08/03/21 17:44 FREDERICK (Rec: 08/03/21 17:49 FREDERICK [id number]) Nutrition Notes Need for Assessment generated from: MD Order,Education Initial or Follow up Brief Note Current Diagnosis COPD,Diabetes,Hypertension Other Pertinent Diagnosis Chest Pain, CHF. Current Diet Cardiac Diet (since B 08/03). Height 5 ft 5 in Weight 113.398 kg [place] Body Weight (kg) 56.81 BMI 41.5 Weight change and time frame None reported at admission. Weight Status Morbidly Obese Subjective/Other Information RD consult for Nutrition Education. No reports available on Pt's PO intake of meals at the time , will assess at F/U. Pt still in critical condition , not a candidate for Nutrition Education at the time, will assess feasibility on F/U. Percent of energy/protein needs met: Prescribed Cardiac Diet provides for energy/protein needs (2,230 Kcal/85 g) during LOS. Nutrition Intervention Follow-Up By: 08/10/21 Additional Comments Nutrition education will be provided on F/U, if feasible. Continue monitoring food tolerance, %PO intake of meals , and BM.
[2021-08-08] MEDS ORDERED: oxyCODONE /ACETAMINOPHEN 5-325MG TAB PO PRN (14:27)
--- NOTE | 2021-08-08 14:27 | Progress Note ---
Assessment and Plan This patient is a 61 y/o female with a PMHX of CAD s/p PCI in 2019 on DAPT, DM, HFpEF(EF50-55%), HTN, COPD on home 02, medical noncompliance who presented to ED 08/03/21 with a complaint of shortness of breath x3 to 4 days Assessment: Accelerated hypertension Acute on chronic HFpEF 55% Acute on chronic hypoxic respiratory failure COPD- on home O2 HTN CAD s/p PCI 2018 DM Obesity Medical noncompliance Cardiographics: Echo 03/25/2021 EF 50 to 55%, moderate concentric left ventricular hypertrophy. Right ventricle mildly dilated, right ventricle hypokinetic. Left atrium moderately dilated right atrium mildly dilated. Mild to moderate tricuspid regurgitation. Moderate pulmonary hypertension. Echo 09/15/2020-LVEF is 50 to 55%. LV SF is normal. Moderate LVH. RV SF is normal. Moderate pulmonary hypertension cannot be excluded due to poor regurgitant envelope C 06/20/2018 successful PCI with intravascular ultrasound of the ramus with DIANELYS which was 100% culprit vessel with DIANELYS. Left main patent, LAD patent. RCA mmoderate to severe tortuosity with mid stent patent, circumflex pateent, ARIELA 50% with sintia 100% with successful PCI. Acute diastolic dysfunction Plan: Continue metoprolol 50mg PO BID, nifedipine 30mg QD, hydralazine 100mg PO TID, Imdur 60mg QD, Clonidine 0.1 mg PO Q12, and Valsartain 160 mg PO Qday Transitioned to Bumex 1 mg p.o. daily Continue DAPT (Aspirin, Plavix) Continue lipitor 40 mg PO QHS Patient appears euvolemic on exam, no acute distress. Stable from cardiac standpoint. Discussed importance of diet and lifestyle modifications and compliance with follow-up appointment with patient-she verbalizes understanding. She has a follow-up appointment 09/11/[address] Hernandez @ 10:15 AM in our [place] location. [phone] Patient seen in conjunction with Dr. Hernandez who agrees with the assessment and management of this patient. - Patient Problems (1) Accelerated hypertension Current Visit: Yes Status: Acute (2) Acute on chronic heart failure with preserved ejection fraction (HFpEF) Current Visit: Yes Status: Acute (3) COPD exacerbation Current Visit: Yes Status: Acute (4) Acute and chronic respiratory failure Current Visit: No Status: Acute Qualifiers: Respiratory failure complication: hypoxia Qualified Code(s): J96.21 - Acute and chronic respiratory failure with hypoxia (5) Hypertensive emergency Current Visit: No Status: Acute (6) Morbid obesity with body mass index of 40.0-49.9 Current Visit: No Status: Acute (7) Obesity hypoventilation syndrome Current Visit: No Status: Acute (8) Shortness of breath Current Visit: No Status: Acute (9) CAD (coronary artery disease) Current Visit: No Status: Chronic Qualifiers: Coronary Disease-Associated Artery/Lesion type: [place] artery [place] vs. transplanted heart: [place] heart Associated angina: with stable angina Qualified Code(s): I25.118 - Atherosclerotic heart disease of [place] coronary artery with other forms of angina pectoris (10) COPD (chronic obstructive pulmonary disease) Current Visit: No Status: Chronic (11) Diabetes Current Visit: No Status: Chronic Qualifiers: Diabetes mellitus type: type 1 (12) H/O cardiomyopathy Current Visit: No Status: Chronic (13) Hyperlipemia Current Visit: No Status: Chronic Qualifiers: Hyperlipidemia type: mixed hyperlipidemia Qualified Code(s): E78.2 - Mixed hyperlipidemia (14) Medical non-compliance Current Visit: No Status: Chronic Subjective Principal diagnosis: HFpEF, Accelerated HTN Interval history: Patient doing well this morning. No apparent distress. Denies cardiac complaints. Tele: NSR 60's Intake & Output 08/07/21 08/08/21 08/08/21 23:59 07:59 15:59 Intake Total 430 300 Output Total 400 Balance 430 -400 300 Objective Vital Signs Temp Pulse Pulse Resp Resp BP Pulse Ox 08/08/21 11:03 95 08/08/21 09:00 98 08/08/21 08:00 68 18 08/08/21 05:00 97.8 F 52 L 18 127/63 95 08/08/21 03:00 98 08/07/21 23:59 54 L 104/56 08/07/21 22:23 98.4 F 54 L 16 104/56 90 08/07/21 20:51 97 08/07/21 20:47 70 15 08/07/21 15:41 68 18 08/07/21 15:00 97 - Physical Examination General: Appears Well, No Apparent Distress HEENT: Positive: EOMI, Normocephaly Neck: Positive: neck supple, trachea midline. Negative: JVD/HJR Cardiac: Positive: Reg Rate and Rhythm, S1/S2 Lungs: Positive: Decreased Breath Sounds, No Wheeze, Rales, Rhonchi Neuro: Positive: Grossly Intact Abdomen: Positive: Soft, Active Bowel Sounds Skin: Negative: Rash Extremities: Present: +1 Edema (Bilateral lower extremities) - Labs and Meds Comprehensive Metabolic Panel 08/08/21 Range/Units 04:34 Sodium 142 (137-145) mmol/L Potassium 4.2 (3.6-5.0) mmol/L Chloride 104.4 (98-107) mmol/L Carbon Dioxide 25 (22-30) mmol/L BUN 35 H (7-17) mg/dL Creatinine 0.8 (0.6-1.2) mg/dL Glucose 104 H (65-100) mg/dL Calcium 8.9 (8.4-10.2) mg/dL - Imaging and Cardiology EKG: report reviewed, image reviewed Echo: report reviewed Cardiac cath: report reviewed - Telemetry EKG Rhythm: Sinus Rhythm - EKG Sinus rhythms and dysrhythmias: sinus rhythm Myocardial infarction: lateral [place] (old age or in - Allied health notes Allied health notes reviewed: nursing
[2021-08-08] MEDS: MONTELUKAST 10 MG TAB PO SCH (21:39)
[2021-08-08] MEDS ORDERED: NON-FORMULARY EACH (Mirtazapine [Mirtazapine] 7.5 MG Tablet) PO SCH (22:00)
[2021-08-08] MEDS ORDERED: MIRTAZAPINE 15 MG TAB PO SCH (22:00)
[2021-08-09] MEDS: HYDROmorphone 1 MG/1 ML INJ IV PRN (04:51)
--- NOTE | 2021-08-09 06:29 | Progress Note ---
Assessment and Plan 61 y/o obese female with hypoxic respiratory failure 08/09/21: Continue to wean FiO2 for sats >88%. Ambulatory pulse ox prior to discharge. Will see as needed. 08/08/21: Continue to wean FIO2 as tolerated. Will need walk test prior to discharge. 08/07/21: better with bumex but only slightly if accurate (per chart negative 80cc's). Continue to diurese and wean FiO2 as tolerated. 08/06/21: Patient changed to bumex. Still positive based on yesterday's I/o. Wean FiO2 as tolerated. Walk test prior to discharge as per patient she is not on oxygen therapy at home. 08/05/21: achieve net negative volume state. Wean FiO2. SUggest walk test prior to discharge 08/04/21: Continue diuresis. Wean FiO2 for sats >88% 1. Will give an additional dose of lasix now 2. Asked RT to use salter if necessary 3. Will order Bipap PRN 4. Hold on steroids for now 5. Guarded Prognosis Subjective Date of service: 08/09/21 Principal diagnosis: HFpEF, Accelerated HTN Interval history: Weaned down to 2 liters based on last documentation with good sats. I/O still suggest patient has positive fluid balance. Objective Vital Signs - 12hr 08/08/21 08/08/21 08/08/21 19:58 20:00 20:04 Temperature 97.2 F L Pulse Rate 67 Pulse Rate [ 68 Bilateral] Respiratory 18 Rate Respiratory 19 Rate [Bilateral ] Blood Pressure 179/94 O2 Sat by Pulse 91 99 Oximetry 08/08/21 08/08/21 21:37 21:38 Temperature Pulse Rate 67 67 Pulse Rate [ Bilateral] Respiratory Rate Respiratory Rate [Bilateral ] Blood Pressure 179/94 179/94 O2 Sat by Pulse Oximetry Constitutional: alert, appears uncomfortable, other (morbidly obese) Eyes: non-icteric ENT: oropharynx moist Neck: supple, other (large in circumference) Effort: mildly labored Ascultation: Bilateral: rales Percussion: Bilateral: not dull Tactile fremitus: Bilateral: normal Cardiovascular: regular rate and rhythm Gastrointestinal: normoactive bowel sounds, soft, other (obese) CBC and BMP: 08/04/21 04:17 08/08/21 04:34 ABG, PT/INR, D-dimer: PT/INR, D-dimer PT 14.4 Sec. (12.2-14.9) 08/03/21 01:39 INR 1.01 (0.87-1.13) 08/03/21 01:39 Abnormal lab findings: Abnormal Labs 08/03/21 08/03/21 08/03/21 01:39 01:39 01:39 RBC 5.44 H MCV 70 L MCH 21 L MCHC 29 L RDW 20.9 H Lymph % (Auto) 10.9 L [place] % (Auto) 11.1 H Eos % (Auto) 7.1 H Baso % (Auto) 2.1 H Lymph # (Auto) 0.7 L Lymphocytes % (Manual) Eosinophils % (Manual) Lymphocytes # (Manual) Eosinophils # (Manual) Chloride 107.2 H Carbon Dioxide 18 L BUN 23 H Glucose 127 H POC Glucose Alkaline Phosphatase 176 H CK-MB (CK-2) Rel Index 5.7 H NT-Pro-B Natriuret Pep 7147 H Albumin 3.7 L 08/03/21 08/03/21 08/04/21 08:06 21:41 04:17 RBC 5.39 H MCV 69 L MCH 21 L MCHC RDW 20.8 H Lymph % (Auto) [place] % (Auto) Eos % (Auto) Baso % (Auto) Lymph # (Auto) Lymphocytes % (Manual) 9.0 L Eosinophils % (Manual) 20.0 H Lymphocytes # (Manual) 0.5 L Eosinophils # (Manual) 1.1 H Chloride Carbon Dioxide BUN Glucose POC Glucose 140 H 141 H Alkaline Phosphatase CK-MB (CK-2) Rel Index NT-Pro-B Natriuret Pep Albumin 08/04/21 08/04/21 08/04/21 04:17 08:10 11:24 RBC MCV MCH MCHC RDW Lymph % (Auto) [place] % (Auto) Eos % (Auto) Baso % (Auto) Lymph # (Auto) Lymphocytes % (Manual) Eosinophils % (Manual) Lymphocytes # (Manual) Eosinophils # (Manual) Chloride Carbon Dioxide BUN 21 H Glucose POC Glucose 114 H 115 H Alkaline Phosphatase CK-MB (CK-2) Rel Index NT-Pro-B Natriuret Pep Albumin 08/04/21 08/05/21 08/05/21 16:47 04:38 16:03 RBC MCV MCH MCHC RDW Lymph % (Auto) [place] % (Auto) Eos % (Auto) Baso % (Auto) Lymph # (Auto) Lymphocytes % (Manual) Eosinophils % (Manual) Lymphocytes # (Manual) Eosinophils # (Manual) Chloride Carbon Dioxide BUN 30 H Glucose POC Glucose 107 H 115 H Alkaline Phosphatase CK-MB (CK-2) Rel Index NT-Pro-B Natriuret Pep Albumin 08/05/21 08/06/21 08/08/21 20:58 22:19 04:34 RBC MCV MCH MCHC RDW Lymph % (Auto) [place] % (Auto) Eos % (Auto) Baso % (Auto) Lymph # (Auto) Lymphocytes % (Manual) Eosinophils % (Manual) Lymphocytes # (Manual) Eosinophils # (Manual) Chloride Carbon Dioxide BUN 35 H Glucose 104 H POC Glucose 111 H 125 H Alkaline Phosphatase CK-MB (CK-2) Rel Index NT-Pro-B Natriuret Pep Albumin 08/08/21 07:29 RBC MCV MCH MCHC RDW Lymph % (Auto) [place] % (Auto) Eos % (Auto) Baso % (Auto) Lymph # (Auto) Lymphocytes % (Manual) Eosinophils % (Manual) Lymphocytes # (Manual) Eosinophils # (Manual) Chloride Carbon Dioxide BUN Glucose POC Glucose 116 H Alkaline Phosphatase CK-MB (CK-2) Rel Index NT-Pro-B Natriuret Pep Albumin Allied health notes reviewed: nursing
[2021-08-09 07:34] VITALS: BP 155/78
--- NOTE | 2021-08-09 07:36 | Discharge Summary ---
Providers - Providers Date of Admission: 08/03/21 05:44 Attending physician: DENISE ROUSE MD 08/03/21 05:44 Consult to Physician [CONS] Routine Comment: Consulting Provider: SUSANNE FARFAN Physician Instructions: Reason For Exam: htn urgency Consult to Physician [CONS] Routine Comment: Consulting Provider: COMPA ELLIS Physician Instructions: Reason For Exam: Hypertension urgency 08/03/21 06:02 Consult to Dietitian/Nutrition [CONS] Routine Physician Instructions: Reason For Exam: Reason for Consult: Diet education 08/05/21 05:21 Physical Therapy Evaluation and Treat [CONS] Routine Comment: Reason For Exam: evaluation Primary care physician: BUSSER Hospitalization Condition: Critical Disposition: 30 STILL A PATIENT Exam - Constitutional Vitals: Temp Pulse Resp BP Pulse Ox 98.6 F 62 18 155/78 97 08/09/21 04:44 08/09/21 04:44 08/09/21 04:44 08/09/21 04:44 08/09/21 04:44 Plan Care Plan Goals: Please schedule appointment with your tailor helper as well as your primary care doctor. Please take all your medications as prescribed. Follow up with: PRIMARY CARE, [Primary Care Provider] - 3-5 Days Prescriptions: AtorvaSTATin [Lipitor] 40 mg PO QHS 30 Days #30 tablet Montelukast [Singulair] 10 mg PO QHS 30 Days #30 tablet Famotidine [Acid-Pep] 20 mg PO DAILY 90 Days #90 tablet hydrALAZINE [Apresoline TAB] 100 mg PO Q8HR 30 Days #90 tab Mometasone Furoate [Asmanex Hfa] 13 gm IH DAILY #90 hfa.aer.ad Bumetanide [Bumex 1 mg tab] 1 mg PO QDAY 30 Days #30 tablet cloNIDine [Catapres] 0.1 mg PO Q12HR 30 Days #60 tablet Citalopram [Celexa] 20 mg PO QDAY 30 Days #30 tab Valsartan [Diovan] 160 mg PO DAILY 30 Days #30 tablet Aspirin EC [Halfprin EC] 81 mg PO QDAY 30 Days #30 tablet ISOSORBIDE MONOnitrate [Imdur ER] 60 mg PO QDAY 30 Days #30 tablet Metoprolol [Lopressor TAB] 50 mg PO BID 30 Days #60 tablet Clopidogrel [Plavix] 75 mg PO QDAY 30 Days #30 tablet NIFEdipine XL [Procardia Xl] 30 mg PO QDAY 30 Days #30 tablet Albuterol Sulfate [Proventil Hfa] 2 puff IH Q4H PRN 30 Days #3 each PRN Reason: Shortness Of Breath Budesonide/Formoterol Fumarate [Symbicort 160-4.5 Mcg Inhaler] 10.2 gm IH BID 30 Days #3 each
[2021-08-09] MEDS: hydrALAZINE 100 MG TAB PO SCH (08:47)
[2021-08-09] MEDS: INSULIN LISPRO 100 UNIT/ML SUB-Q SCH (08:47)
[2021-08-09] MEDS: BUDESONIDE 0.5 MG/2 ML NEBU IH SCH (09:12)
[2021-08-09] MEDS: IPRATROPIUM/ALBUTEROL SULFATE 3 ML AMPUL.NEB IH SCH (09:12)
[2021-08-09] MEDS: CITALOPRAM 20 MG TAB PO SCH (09:20)
[2021-08-09] MEDS: ASPIRIN EC 81 MG TAB PO SCH (09:20)
[2021-08-09] MEDS: cloNIDine 0.1 MG TAB PO SCH (09:20)
[2021-08-09] MEDS: NIFEdipine XL 30 MG TAB PO SCH (09:20)
[2021-08-09] MEDS: VALSARTAN 160MG TAB PO SCH (09:20)
[2021-08-09] MEDS: BUMETANIDE 1 MG TAB PO SCH (09:20)
[2021-08-09] MEDS: CLOPIDOGREL 75 MG TAB PO SCH (09:20)
[2021-08-09] MEDS: CELECOXIB 200 MG CAP PO SCH (09:21)
[2021-08-09] MEDS: FAMOTIDINE 20 MG TAB PO SCH (09:23)
[2021-08-09] MEDS: METOPROLOL TARTRATE 50 MG TAB PO SCH (09:24)
== END 2021-08-09 10:31 | disposition home or self-care (01) | DRG 291 ==
LOC: ED 01:28 → CC1 05:44 → 3A 16:21
PROVIDERS: ADMIT Hospitalist; ATTEND Student in an Organized Health Care Education/Training Program
DX: I11.0 Hypertensive heart disease with heart failure (principal); I50.33 Acute on chronic diastolic (congestive) heart failure; J96.21 Acute and chronic respiratory failure with hypoxia; I16.1 Hypertensive emergency; J44.1 Chronic obstructive pulmonary disease with (acute) exacerbation; Z68.41 Body mass index [BMI] 40.0-44.9, adult; E66.2 Morbid (severe) obesity with alveolar hypoventilation; I16.0 Hypertensive urgency; I25.10 Atherosclerotic heart disease of native coronary artery without angina pectoris; E11.65 Type 2 diabetes mellitus with hyperglycemia; I42.9 Cardiomyopathy, unspecified; Z90.49 Acquired absence of other specified parts of digestive tract; Z90.710 Acquired absence of both cervix and uterus; Z91.14 Patient's other noncompliance with medication regimen
CPT/HCPCS: 36415; 71045; 80048; 80053; 80307; 81001; 82550; 82553; 82962; 83690; 83880; 84484; 85007; 85025; 85610; 93005; 94640; 94644; 94760; G0378; J3490; J1170; J1940; J2270

== ENCOUNTER 2021-09-27 21:24 | Inpatient (IN) | payer BC ==
[2021-09-27] MEDS ORDERED: ONDANSETRON 4 MG/2 ML INJ IV ONE (22:45)
[2021-09-27] MEDS ORDERED: ASPIRIN 325 MG TAB PO ONE (22:45)
[2021-09-27] MEDS ORDERED: fentaNYL 100 MCG/2 ML INJ IV ONE (22:45)
[2021-09-27] MEDS ORDERED: FUROSEMIDE 40 MG/4 ML INJ IV ONE (22:45)
--- NOTE | 2021-09-27 22:58 | Emergency Department Report ---
HPI - General Chief Complaint: Chest Pain Time Seen by Provider: 09/27/21 22:35 - HPI HPI: Room 17 Patient is a 61-year-old female present with chief complaint of shortness of breath and chest pain. The patient states for the past 3 to 4 days she has had shortness of breath at rest and with exertion. Patient states she is had intermittent substernal chest pain radiating to the left shoulder described as feeling as though "someone is sitting on me." Patient admits to nausea vomiting with the chest pain. Patient is to cough for the past 3 days. Patient states she has been vaccinated against COVID patient denies history of fever. Patient states she currently does not have chest pain. Patient has a history of 3 cardiac stents the last which was placed approximately 1 year ago. ED Past Medical Hx - Past Medical History Hx Hypertension: Yes Hx Heart Attack/AMI: Yes Hx Congestive Heart Failure: Yes Hx Diabetes: Yes Hx Deep Vein Thrombosis: Yes (left leg) Hx of Cancer: Yes (Ovarian CA status post surgery ()) Hx Arthritis: Yes Hx COPD: Yes Additional medical history: CAD - Surgical History Hx Coronary Stent: Yes Hx Cholecystectomy: Yes Hx Appendectomy: Yes Additional Surgical History: HYSTERECTOMY. TONSILLECTOMY - Social History Smoking Status: Current Every Day Smoker (1/7 pack/day) Substance Use Type: None (Denies illicit drug use) - Medications Home Medications: Home Medications Medication Instructions Recorded Confirmed Last Taken Type Mirtazapine 7.5 mg PO QHS #30 tablet 09/19/20 08/08/21 12/26/20 Rx hydrOXYzine PAMOATE [Vistaril] 25 mg PO BID PRN #60 capsule 09/19/20 08/08/21 03/24/21 Rx Celecoxib [celeBREX] 200 mg PO DAILY #60 cap 02/04/21 08/08/21 03/10/21 Rx Multivit-Min36/Iron/Folic Acid 1 each PO QDAY 03/27/21 08/08/21 03/24/21 History [Geritol Complete Tablet] Albuterol Sulfate [Proventil Hfa] 2 puff IH Q4H PRN 30 Days #3 each 08/09/21 Unknown Rx Aspirin EC [Halfprin EC] 81 mg PO QDAY 30 Days #30 tablet 08/09/21 Unknown Rx AtorvaSTATin [Lipitor] 40 mg PO QHS 30 Days #30 tablet 08/09/21 Unknown Rx Budesonide/Formoterol Fumarate 10.2 gm IH BID 30 Days #3 each 08/09/21 Unknown Rx [Symbicort 160-4.5 Mcg Inhaler] Bumetanide [Bumex 1 mg tab] 1 mg PO QDAY 30 Days #30 tablet 08/09/21 Unknown Rx Citalopram [Celexa] 20 mg PO QDAY 30 Days #30 tab 08/09/21 Unknown Rx Clopidogrel [Plavix] 75 mg PO QDAY 30 Days #30 tablet 08/09/21 Unknown Rx Famotidine [Acid-Pep] 20 mg PO DAILY 90 Days #90 tablet 08/09/21 Unknown Rx ISOSORBIDE MONOnitrate [Imdur ER] 60 mg PO QDAY 30 Days #30 tablet 08/09/21 Unknown Rx Metoprolol [Lopressor TAB] 50 mg PO BID 30 Days #60 tablet 08/09/21 Unknown Rx Mometasone Furoate [Asmanex Hfa] 13 gm IH DAILY #90 hfa.aer.ad 08/09/21 Unknown Rx Montelukast [Singulair] 10 mg PO QHS 30 Days #30 tablet 08/09/21 Unknown Rx NIFEdipine XL [Procardia Xl] 30 mg PO QDAY 30 Days #30 tablet 08/09/21 Unknown Rx Valsartan [Diovan] 160 mg PO DAILY 30 Days #30 tablet 08/09/21 Unknown Rx cloNIDine [Catapres] 0.1 mg PO Q12HR 30 Days #60 tablet 08/09/21 Unknown Rx hydrALAZINE [Apresoline TAB] 100 mg PO Q8HR 30 Days #90 tab 08/09/21 Unknown Rx ED Review of Systems ROS: Stated complaint: SANDOVAL/CHEST PAIN Other details as noted in HPI Constitutional: denies: fever Eyes: denies: eye pain ENT: denies: throat pain Respiratory: cough, shortness of breath, SOB with exertion Cardiovascular: chest pain Endocrine: no symptoms reported Gastrointestinal: nausea, vomiting Genitourinary: denies: dysuria Musculoskeletal: back pain Neurological: denies: headache Physical Exam - Physical Exam Vital Signs: Vital Signs 09/27/21 22:16 Temperature 97.7 F Pulse Rate 107 H Respiratory 16 Rate Blood Pressure 238/137 [Left] O2 Sat by Pulse 96 Oximetry Physical Exam: GENERAL: The patient is well-developed well-nourished female lying on stretcher exhibiting slightly increased work of breathing. [] HEENT: Normocephalic. Atraumatic. Extraocular motions are intact. Patient has moist mucous membranes. NECK: Supple. Trachea midline CHEST/LUNGS: Crackles bilaterally. There is slightly increased work of breathing HEART/CARDIOVASCULAR: Regular. There is no tachycardia. There is no gallop rub or murmur. ABDOMEN: Abdomen is soft, nontender. Patient has normal bowel sounds. There is no abdominal distention. SKIN: There is no rash. There is 1+ bilateral lower extremity pitting edema. There is no diaphoresis. NEURO: The patient is awake, alert, and oriented. The patient is cooperative. The patient has no focal neurologic deficits. The patient has normal speech. GCS 15 MUSCULOSKELETAL: There is no evidence of acute injury. ED Course Vital Signs 09/27/21 22:16 Temperature 97.7 F Pulse Rate 107 H Respiratory 16 Rate Blood Pressure 238/137 [Left] O2 Sat by Pulse 96 Oximetry ED Medical Decision Making - Lab Data Result diagrams: 09/27/21 22:48 09/27/21 22:48 Laboratory Tests 09/27/21 09/27/21 22:48 22:48 WBC 5.7 RBC 5.75 H Hgb 11.7 Hct 38.4 MCV 67 L MCH 20 L MCHC 31 RDW 22.0 H Plt Count 260 Lymph % (Auto) 11.7 L [place] % (Auto) 11.6 H Eos % (Auto) 2.7 Baso % (Auto) 1.0 Lymph # (Auto) 0.7 L [place] # (Auto) 0.7 Eos # (Auto) 0.2 Baso # (Auto) 0.1 Seg Neutrophils % 73.0 H Seg Neutrophils # 4.1 Sodium 142 Potassium 3.8 Chloride 107.7 H Carbon Dioxide 19 L Anion Gap 19 BUN 11 Creatinine 0.7 Estimated GFR > 60 BUN/Creatinine Ratio 16 Glucose 80 Calcium 9.4 Total Creatine Kinase 64 CK-MB (CK-2) 3.8 CK-MB (CK-2) Rel Index 5.9 H Troponin T < 0.010 NT-Pro-B Natriuret Pep 7433 H - EKG Data -: EKG Interpreted by Me EKG shows normal: sinus rhythm, axis Rate: normal - EKG Data When compared to previous EKG there are: previous EKG unavailable Interpretation: nonspecific ST-T wave gilbert (T wave inversion lead aVL) - Radiology Data Radiology results: report reviewed (Chest x-ray), image reviewed (Chest x-ray) interpreted by me: Chest x-ray-CHF, no pneumothorax [facility] [address] [place] [address] XRay Report Signed Patient: SHAHID FERNANDEZ MR#: [id number] : 1960 Acct:[id number] Age/Sex: 61 / F ADM Date: 09/27/21 Loc: ED Attending Dr: Ordering Physician: PHI WOLFE MD Date of Service: 09/27/21 Procedure(s): XR chest 1V ap Accession Number(s): [id number] cc: PHI WOLFE MD Fluoro Time In Minutes: XR chest 1V ap INDICATION / CLINICAL INFORMATION: chest pain, shortness of breath. COMPARISON: 08/03/2021 FINDINGS: SUPPORT DEVICES: None. HEART /PULMONARY VASCULATURE: Cardiac enlargement with pulmonary vasc ulature congestion. LUNGS / PLEURA: Diffuse increased interstitial opacities noted throughout the lungs, most consistent with edema. No sizable pleural effusion. No pneumothorax. ADDITIONAL FINDINGS: No significant additional findings. IMPRESSION: Moderate CHF/volume overload with pulmonary edema. Signer Name: Viral Vargas MD Signed: 09/27/2021 11:04 PM Workstation Name: [id number] Transcribed By: JS Dictated By: VIRAL VARGAS MD Electronically Authenticated By: VIRAL VARGAS MD Signed Date/Time: 09/27/212303 DD/ 02 TD/TT: - Differential Diagnosis CHF exacerbation, ACS, hypertensive urgency, hypertensive emergency Critical care attestation.: If time is entered above; I have spent that time in minutes in the direct care of this critically ill patient, excluding procedure time. ED Disposition Clinical Impression: CHF exacerbation, Chest pain, Hypertensive urgency Disposition: ADMITTED INPATIENT Is pt being admited?: Yes Does the pt Need Aspirin: Yes Condition: Fair Instructions: Nonspecific Chest Pain, Adult Referrals: MICHAEL BARON MD [Primary Care Provider] - 3-5 Days Time of Disposition: 00:03 (Care transferred to hospitalist (Dr. Perez)) Heart Score - HEART Score History: Moderately suspicious EKG: Non-specific Age: 45-65 Risk factors: > 3 risk factors or hx of atherosclerotic disease Troponin: < normal limit HEART Score: 5 - EKG Read Time Time EKG Completed: 00:35 EKG Read Time: 00:38
--- NOTE | 2021-09-27 23:09 | XRay Report ---
XR chest 1V ap INDICATION / CLINICAL INFORMATION: chest pain, shortness of breath. COMPARISON: 08/03/2021 FINDINGS: SUPPORT DEVICES: None. HEART /PULMONARY VASCULATURE: Cardiac enlargement with pulmonary vasculature congestion. LUNGS / PLEURA: Diffuse increased interstitial opacities noted throughout the lungs, most consistent with edema. No sizable pleural effusion. No pneumothorax. ADDITIONAL FINDINGS: No significant additional findings. IMPRESSION: Moderate CHF/volume overload with pulmonary edema. Signer Name: Jasson Vargas MD Signed: 09/27/2021 11:04 PM Workstation Name: [id number]
[2021-09-27 23:24] LABS: Basophils # (Auto) 0.1 K/mm3 (0.0-0.1); Eosinophils # (Auto) 0.2 K/mm3 (0.0-0.4); Eosinophils % (Auto) 2.7 % (0.0-4.3); Lymphocytes # (Auto) 0.7 K/mm3 (1.2-5.4); Lymphocytes % (Auto) 11.7 % (13.4-35.0); Mean Corpuscular HGB Conc 31 % (30-34); Monocytes # (Auto) 0.7 K/mm3 (0.0-0.8); Monocytes % (Auto) 11.6 % (0.0-7.3); Platelet Count 260 K/mm3 (140-440); Red Blood Count 5.75 M/mm3 (3.65-5.03)
[2021-09-27 23:27] LABS: Hematocrit 38.4 % (30.3-42.9); Hemoglobin 11.7 gm/dl (10.1-14.3); Mean Corpuscular Volume 67 fl (79-97)
[2021-09-27 23:45] LABS: Creatine Kinase MB 3.8 ng/mL (0.0-4.0)
[2021-09-27 23:47] LABS: Blood Urea Nitrogen 11 mg/dL (7-17); Calcium 9.4 mg/dL (8.4-10.2); Hemolysis Index 3
[2021-09-28 00:02] LABS: BUN/Creatinine Ratio 16
[2021-09-28] MEDS ORDERED: NITROGLYCERIN 2% OINT 1 GM TP ONE (00:13)
[2021-09-28] MEDS ORDERED: ONDANSETRON 4 MG/2 ML INJ IV PRN (01:40)
--- NOTE | 2021-09-28 01:50 | History and Physical Report ---
History of Present Illness Date of examination: 09/28/21 Date of admission: 09/28/21 Chief complaint: Shortness of breath Chest pain History of present illness: 61-year-old female with past medical history of hypertension, [place], CHF, diabetes, DVT and COPD was brought to the emergency room because of shortness of breath and chest pain. The patient states for the past 3 to 4 days she has had shortness of breath at rest and with exertion. Patient states she is had intermittent substernal chest pain radiating to the left shoulder described as feeling as though "someone is sitting on me." Patient admits to nausea vomiting with the chest pain. Patient is to cough for the past 3 days. Patient states she has been vaccinated against COVID patient denies history of fever. Patient states she currently does not have chest pain. Patient has a history of 3 card iac stents the last which was placed approximately 1 year ago. In the emergency room patient is found to have a acute CHF exacerbation, patient proBNP is 7433, troponin 0.010. We are going to admit the patient we will put the patient on CHF pathway we also put on Lasix and echocardiogram and cardi ology consult Past History Past Medical History: acute [place], arthritis, CAD, COPD, diabetes, DVT, heart failure, hypertension, other (Ovarian cancer is status post surgery in 1989) Past Surgical History: cholecystectomy, hysterectomy, tonsillectomy, Other (Coronary stent appendectomy) Social history: smoking Family history: hypertension Medications and Allergies Allergies Allergy/AdvReac Type Severity Reaction Status Date / Time Penicillins Allergy Severe GO INTO Verified 08/08/21 07:16 SHOCK, ANAPHYLAXIS Home Medications Medication Instructions Recorded Confirmed Last Taken Type Mirtazapine 7.5 mg PO QHS #30 tablet 09/19/20 08/08/21 12/26/20 Rx hydrOXYzine PAMOATE [Vistaril] 25 mg PO BID PRN #60 capsule 09/19/20 08/08/21 03/24/21 Rx Celecoxib [celeBREX] 200 mg PO DAILY #60 cap 02/04/21 08/08/21 03/10/21 Rx Multivit-Min36/Iron/Folic Acid 1 each PO QDAY 03/27/21 08/08/21 03/24/21 History [Geritol Complete Tablet] Albuterol Sulfate [Proventil Hfa] 2 puff IH Q4H PRN 30 Days #3 each 08/09/21 Unknown Rx Aspirin EC [Halfprin EC] 81 mg PO QDAY 30 Days #30 tablet 08/09/21 Unknown Rx AtorvaSTATin [Lipitor] 40 mg PO QHS 30 Days #30 tablet 08/09/21 Unknown Rx Budesonide/Formoterol Fumarate 10.2 gm IH BID 30 Days #3 each 08/09/21 Unknown Rx [Symbicort 160-4.5 Mcg Inhaler] Bumetanide [Bumex 1 mg tab] 1 mg PO QDAY 30 Days #30 tablet 08/09/21 Unknown Rx Citalopram [Celexa] 20 mg PO QDAY 30 Days #30 tab 08/09/21 Unknown Rx Clopidogrel [Plavix] 75 mg PO QDAY 30 Days #30 tablet 08/09/21 Unknown Rx Famotidine [Acid-Pep] 20 mg PO DAILY 90 Days #90 tablet 08/09/21 Unknown Rx ISOSORBIDE MONOnitrate [Imdur ER] 60 mg PO QDAY 30 Days #30 tablet 08/09/21 Unknown Rx Metoprolol [Lopressor TAB] 50 mg PO BID 30 Days #60 tablet 08/09/21 Unknown Rx Mometasone Furoate [Asmanex Hfa] 13 gm IH DAILY #90 hfa.aer.ad 08/09/21 Unknown Rx Montelukast [Singulair] 10 mg PO QHS 30 Days #30 tablet 08/09/21 Unknown Rx NIFEdipine XL [Procardia Xl] 30 mg PO QDAY 30 Days #30 tablet 08/09/21 Unknown Rx Valsartan [Diovan] 160 mg PO DAILY 30 Days #30 tablet 08/09/21 Unknown Rx cloNIDine [Catapres] 0.1 mg PO Q12HR 30 Days #60 tablet 08/09/21 Unknown Rx hydrALAZINE [Apresoline TAB] 100 mg PO Q8HR 30 Days #90 tab 08/09/21 Unknown Rx Review of Systems All systems: negative Cardiovascular: chest pain, orthopnea, shortness of breath, dyspnea on exertion, paroxysmal nocturnal dyspnea Respiratory: cough, shortness of breath, dyspnea on exertion Exam - Constitutional Vitals: Temp Pulse Resp BP Pulse Ox 97.7 F 76 16 193/141 93 09/27/21 22:16 09/28/21 01:07 09/27/21 22:16 09/28/21 01:07 09/28/21 00:47 General appearance: Present: no acute distress, well-nourished - EENT Eyes: Present: PERRL ENT: hearing intact, clear oral mucosa - Neck Neck: Present: supple, normal ROM - Respiratory Respiratory effort: normal Respiratory: bilateral: rales - Cardiovascular Heart Sounds: Present: S1 & S2. Absent: rub, click - Extremities Extremities: pulses symmetrical, No edema Peripheral Pulses: within normal limits - Abdominal General gastrointestinal: Present: soft, non-tender, non-distended, normal bowel sounds Female genitourinary: Present: normal - Integumentary Integumentary: Present: clear, warm, dry - Musculoskeletal Musculoskeletal: gait normal, strength equal bilaterally - Psychiatric Psychiatric: appropriate mood/affect, intact judgment & insight - Neurologic Neurologic: CNII-XII intact, moves all extremities HEART Score - HEART Score EKG: Non-specific Age: 45-65 Risk factors: > 3 risk factors or hx of atherosclerotic disease Troponin: Troponin T < 0.010 ng/mL (0.00-0.029) 09/27/21 22:48 Troponin: < normal limit Results - Labs CBC & Chem 7: 09/27/21 22:48 09/27/21 22:48 Labs: Laboratory Last Values WBC 5.7 K/mm3 (4.5-11.0) 09/27/21 22:48 RBC 5.75 M/mm3 (3.65-5.03) H 09/27/21 22:48 Hgb 11.7 gm/dl (10.1-14.3) 09/27/21 22:48 Hct 38.4 % (30.3-42.9) 09/27/21 22:48 MCV 67 fl (79-97) L 09/27/21 22:48 MCH 20 pg (28-32) L 09/27/21 22:48 MCHC 31 % (30-34) 09/27/21 22:48 RDW 22.0 % (13.2-15.2) H 09/27/21 22:48 Plt Count 260 K/mm3 (140-440) 09/27/21 22:48 Lymph % (Auto) 11.7 % (13.4-35.0) L 09/27/21 22:48 Dewey % (Auto) 11.6 % (0.0-7.3) H 09/27/21 22:48 Eos % (Auto) 2.7 % (0.0-4.3) 09/27/21 22:48 Baso % (Auto) 1.0 % (0.0-1.8) 09/27/21 22:48 Lymph # (Auto) 0.7 K/mm3 (1.2-5.4) L 09/27/21 22:48 Dewey # (Auto) 0.7 K/mm3 (0.0-0.8) 09/27/21 22:48 Eos # (Auto) 0.2 K/mm3 (0.0-0.4) 09/27/21 22:48 Baso # (Auto) 0.1 K/mm3 (0.0-0.1) 09/27/21 22:48 Seg Neutrophils % 73.0 % (40.0-70.0) H 09/27/21 22:48 Seg Neutrophils # 4.1 K/mm3 (1.8-7.7) 09/27/21 22:48 Sodium 142 mmol/L (137-145) 09/27/21 22:48 Potassium 3.8 mmol/L (3.6-5.0) 09/27/21 22:48 Chloride 107.7 mmol/L (98-107) H 09/27/21 22:48 Carbon Dioxide 19 mmol/L (22-30) L 09/27/21 22:48 Anion Gap 19 mmol/L 09/27/21 22:48 BUN 11 mg/dL (7-17) 09/27/21 22:48 Creatinine 0.7 mg/dL (0.6-1.2) 09/27/21 22:48 Estimated GFR > 60 ml/min 09/27/21 22:48 BUN/Creatinine Ratio 16 % 09/27/21 22:48 Glucose 80 mg/dL (65-100) 09/27/21 22:48 Calcium 9.4 mg/dL (8.4-10.2) 09/27/21 22:48 Total Creatine Kinase 64 units/L (30-135) 09/27/21 22:48 CK-MB (CK-2) 3.8 ng/mL (0.0-4.0) 09/27/21 22:48 CK-MB (CK-2) Rel Index 5.9 (0-4) H 09/27/21 22:48 Troponin T < 0.010 ng/mL (0.00-0.029) 09/27/21 22:48 NT-Pro-B Natriuret Pep 7433 pg/mL (0-900) H 09/27/21 22:48 - Imaging and Cardiology Chest x-ray: report reviewed Assessment and Plan VTE prophylaxis?: Chemical Plan of care discussed with patient/family: Yes - Patient Problems (1) Acute exacerbation of CHF (congestive heart failure) Current Visit: Yes Status: Acute Plan to address problem: Admit the patient to the medical telemetry. Cardiac diet. Lasix 40 mg IV every 12 hours. Oxygen by nasal cannula 3 L/min. Fluid restriction. Maintain input output. Echocardiogram. Cardiology evaluation (2) ACS (acute coronary syndrome) Current Visit: Yes Status: Acute Plan to address problem: Aspirin 81 mg p.o. daily. Lipitor 40 mg p.o. daily. Plavix 75 mg p.o. daily. Serial cardiac enzymes. Echocardiogram. Cardiology evaluation (3) Hypertensive urgency Current Visit: Yes Status: Acute Plan to address problem: Hydralazine 10 mg IV every 6 hours as needed. Clonidine 0.1 mg p.o. every 12 hours Diovan 160 mg p.o. daily Procardia XL 30 mg p.o. daily hydralazine 100 milligrams p.o. every 8 hours (4) Acute and chronic respiratory failure Current Visit: No Status: Acute Qualifiers: Plan to address problem: Oxygen per nasal cannula 3 L/min. DuoNeb by nebulizer every 4 hours. Albuterol via nebulizer every 4 hours as needed (5) CAD (coronary artery disease) Current Visit: No Status: Chronic Qualifiers: Plan to address problem: Aspirin 81 mg p.o. daily. Lipitor 40 mg p.o. daily. Plavix 75 mg p.o. daily. Serial cardiac enzymes. Echocardiogram. Cardiology evaluation (6) COPD (chronic obstructive pulmonary disease) Current Visit: No Status: Chronic Plan to address problem: Oxygen per nasal cannula 3 L/min. DuoNeb nebulizer every 4 hours. Albuterol via nebulizer every 4 hours as needed. We continue the home medication (7) Stented coronary artery Current Visit: No Status: Chronic Plan to address problem: Aspirin 81 mg p.o. daily. Lipitor 40 mg p.o. daily. Plavix 75 mg p.o. daily. Serial cardiac enzymes. Echocardiogram. Cardiology evaluation (8) T2DM (type 2 diabetes mellitus) Current Visit: No Status: Chronic Qualifiers: Plan to address problem: 1800 kcal ADA diet. Humalog sliding scale moderate dose coverage Accu-Chek before meals and at bedtime. Diabetic education (9) Tobacco use Current Visit: No Status: Chronic Plan to address problem: We counseled the patient regarding quit smoking. Will provide nicotine patch if needed (10) DVT prophylaxis Current Visit: No Status: Acute Plan to address problem: Heparin 5000 units subcu every 12 hours for DVT prophylaxis. Pepcid 20 mg p.o. twice daily for GI prophylaxis. Patient is a full code
[2021-09-28] MEDS ORDERED: ALBUTEROL 2.5 MG/3 ML NEBU IH PRN (03:00)
[2021-09-28] MEDS ORDERED: ACETAMINOPHEN 325 MG TAB PO PRN (03:00)
[2021-09-28] MEDS ORDERED: DEXTROSE 50% IN WATER (25GM) 50 ML SYRINGE IV PRN (03:00)
[2021-09-28] MEDS ORDERED: hydrALAZINE 20 MG/1 ML INJ IV PRN (04:11)
[2021-09-28] MEDS: MORPHINE 4 MG/1 ML INJ IV PRN ×2 (05:06→20:27)
[2021-09-28] MEDS ORDERED: hydrALAZINE 20 MG/1 ML INJ IV SCH (06:00)
[2021-09-28] MEDS: FUROSEMIDE 40 MG/4 ML INJ IV SCH ×2 (06:51→17:06)
[2021-09-28] MEDS: IPRATROPIUM/ALBUTEROL SULFATE 3 ML AMPUL.NEB IH SCH ×4 (06:52→22:10)
[2021-09-28] MEDS: hydrALAZINE 100 MG TAB PO SCH ×3 (06:52→22:07)
[2021-09-28] MEDS: MORPHINE 2 MG/1 ML INJ IV PRN ×2 (07:58→15:31)
[2021-09-28] MEDS: INSULIN LISPRO 100 UNIT/ML SUB-Q SCH ×4 (09:34→21:45)
[2021-09-28] MEDS: CITALOPRAM 20 MG TAB PO SCH (09:42)
[2021-09-28] MEDS: CLOPIDOGREL 75 MG TAB PO SCH (09:42)
[2021-09-28] MEDS: FAMOTIDINE 20 MG TAB PO SCH ×2 (09:42→22:08)
[2021-09-28] MEDS: ASPIRIN EC 81 MG TAB PO SCH (09:42)
[2021-09-28] MEDS: cloNIDine 0.1 MG TAB PO SCH ×2 (09:42→22:08)
[2021-09-28] MEDS: HEPARIN 5,000 UNIT/1 ML VIAL SUB-Q SCH ×2 (09:43→22:08)
[2021-09-28] MEDS ORDERED: hydrOXYzine PAMOATE 25 MG CAP PO PRN (10:00)
[2021-09-28] MEDS ORDERED: NON-FORMULARY EACH (Budesonide/Formoterol Fumarate [Symbicort 160-4.5 Mcg Inhaler] 10.2 GM IH SCH (10:00)
[2021-09-28] MEDS: ARFORMOTEROL 15 MCG/2 ML NEBU IH SCH ×2 (10:23→22:11)
[2021-09-28] MEDS: BUDESONIDE 0.5 MG/2 ML NEBU IH SCH ×2 (10:23→22:11)
--- NOTE | 2021-09-28 12:26 | Event Note ---
Date: 09/28/21 Patient was seen this morning, and she is hemodynamically stable. #Acute on chronic diastolic heart failure #Acute coronary syndromeruled out - Continue CHF exacerbation protocol: Telemetry, Strict I/O, monitor urine output every shift, daily weights, afterload reduction, low-sodium diet, and fluid restriction of approximately 1.5 mL/day, IV Lasix 40 mg twice daily Restarting home antihypertensives. Counseled patient at length about the importance of medication compliance and following up with her outpatient visits. - Supplemental oxygen: 4 L nasal cannula (baseline) - ProBNP on admission: 7433 - Pending TTE to evaluate EF - Continue to monitor #Hypertensionuncontrolled - home medications: Hydralazine 100 mg every 8 hours, clonidine 0.1 mg every 12 hours, valsartan 160 mg daily, nifedipine 30 mg daily, metoprolol tartrate 50 mg twice daily, Imdur 60 mg daily - current medications: Hydralazine 100 mg every 8 hours, clonidine 0.1 mg every 12 hours, valsartan 160 mg daily, nifedipine 30 mg daily, metoprolol tartrate 50 mg twice daily, Imdur 60 mg daily - SBP goal <160 and DBP goal <90 while inpatient - continue to monitor #CAD with multivessel disease s/p PCI in jun 2018- chronic -[facility] 06/20/2018 successful PCI with intravascular ultrasound of the ramus with DIANELYS which was 100% culprit vessel with DIANELYS. Left main patent, LAD patent. RCA mmoderate to severe tortuosity with mid stent patent, circumflex pateent, ARIELA 50% with sintia 100% with successful PCI. Acute diastolic dysfunction - continue Atorvastatin 40 mg daily, aspirin 81 mg daily, Plavix 75 mg daily #Non-insulin dependent type II diabetes mellitus - hemoglobin A1c: unknown - home regimen: none - current regimen: moderate SSI - blood glucose goal 140-180 while inpatient - continue to monitor #History of COPD #Chronic hypoxic respiratory failure- stable #Acute on chronic hypoxic respiratory failure- ruled out --> at baseline oxygen requirements - currently at baseline oxygen requirement of 4L NC -albuterol, ipratropium and budesonide Neb ordered -titrate o2 NC to home requirements -will need albuterol and symbicort at discharge #Depression #Anxiety Continue home meds:Citalopram 20 mg daily, mirtazapine 7.5 mg nightly, hydroxyzine 25 mg twice daily as needed #Tobacco dependence #Tobacco/Smoking cessation counseling - Counseled patient about the importance of smoking cessation and the possible sequelae as a result of continued tobacco consumption. The patient expresses understanding. -Time: +15 mins #Morbid obesity #Weight loss counseling #Exercise counseling - BMI 47.4 - Counseled patient on the importance of weight loss, incorporating exercise, and dietary changes (lean meats, fresh fruits and vegetables, and water intake). Patient expresses understanding. - Time: +15 min #Noncompliance - Patient has been counseled at length on multiple admissions about importance of medication compliance and following up with physicians in clinic; however, the patient continues to display actions contrary to medical recommendations Time: +20 minutes #Coordination of CARE time: 30 minutes. Total visit time equals 30 or more minutes with greater than 50% spent [id number] on coordination of care and counseling. #Advanced care planning -Disease education conducted, care plan discussed, diagnoses discussed, prognosis discussed, and patient acknowledges understanding with care plan -Time: +30 min
[2021-09-29] MEDS: MORPHINE 4 MG/1 ML INJ IV PRN ×2 (03:00→16:52)
[2021-09-29] MEDS: hydrALAZINE 100 MG TAB PO SCH ×3 (06:28→22:37)
[2021-09-29] MEDS: FUROSEMIDE 40 MG/4 ML INJ IV SCH (06:29)
[2021-09-29 06:30] LABS: Basophils % (Auto) 0.6 % (0.0-1.8); Eosinophils # (Auto) 0.5 K/mm3 (0.0-0.4); Eosinophils % (Auto) 8.5 % (0.0-4.3); Hematocrit 35.7 % (30.3-42.9); Hemoglobin 10.9 gm/dl (10.1-14.3); Lymphocytes # (Auto) 0.6 K/mm3 (1.2-5.4); Lymphocytes % (Auto) 9.7 % (13.4-35.0); Mean Corpuscular HGB Conc 31 % (30-34); Monocytes # (Auto) 0.7 K/mm3 (0.0-0.8); Monocytes % (Auto) 12.6 % (0.0-7.3); Platelet Count 257 K/mm3 (140-440); Red Blood Count 5.43 M/mm3 (3.65-5.03)
[2021-09-29 06:47] LABS: Mean Corpuscular Volume 66 fl (79-97)
[2021-09-29 07:06] LABS: BUN/Creatinine Ratio 16; Blood Urea Nitrogen 18 mg/dL (7-17); Calcium 9.1 mg/dL (8.4-10.2); Hemolysis Index 1
--- NOTE | 2021-09-29 09:57 | Electrocardiograph Report ---
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
[2021-09-29] MEDS: ARFORMOTEROL 15 MCG/2 ML NEBU IH SCH ×2 (10:13→21:04)
[2021-09-29] MEDS: BUDESONIDE 0.5 MG/2 ML NEBU IH SCH ×2 (10:13→21:04)
[2021-09-29] MEDS: IPRATROPIUM/ALBUTEROL SULFATE 3 ML AMPUL.NEB IH SCH ×3 (10:14→21:04)
[2021-09-29] MEDS: FAMOTIDINE 20 MG TAB PO SCH ×2 (10:42→22:40)
[2021-09-29] MEDS: CLOPIDOGREL 75 MG TAB PO SCH (10:42)
[2021-09-29] MEDS: CITALOPRAM 20 MG TAB PO SCH (10:42)
[2021-09-29] MEDS: cloNIDine 0.1 MG TAB PO SCH ×2 (10:42→22:38)
[2021-09-29] MEDS: INSULIN LISPRO 100 UNIT/ML SUB-Q SCH ×4 (10:43→22:37)
[2021-09-29] MEDS: ASPIRIN EC 81 MG TAB PO SCH (10:43)
[2021-09-29] MEDS: HEPARIN 5,000 UNIT/1 ML VIAL SUB-Q SCH ×2 (10:43→22:38)
[2021-09-29] MEDS: MORPHINE 2 MG/1 ML INJ IV PRN (12:01)
--- NOTE | 2021-09-29 13:11 | Progress Note ---
Assessment and Plan Assessment and plan: #Acute on chronic diastolic heart failureimproving #Acute coronary syndromeruled out - Continue CHF exacerbation protocol: Telemetry, Strict I/O, monitor urine output every shift, daily weights, afterload reduction, low-sodium diet, and fluid restriction of approximately 1.5 mL/day, IV Lasix 40 mg twice daily Restarting home antihypertensives. Counseled patient at length about the importance of medication compliance and following up with her outpatient visits. - Supplemental oxygen: 4 L nasal cannula (baseline) - ProBNP on admission: 7433 - Pending TTE to evaluate EF - Continue to monitor #Hypertensionuncontrolled - home medications: Hydralazine 100 mg every 8 hours, clonidine 0.1 mg every 12 hours, valsartan 160 mg daily, nifedipine 30 mg daily, metoprolol tartrate 50 mg twice daily, Imdur 60 mg daily - current medications: Hydralazine 100 mg every 8 hours, clonidine 0.1 mg every 12 hours, valsartan 160 mg daily, nifedipine 30 mg daily, metoprolol tartrate 50 mg twice daily, Imdur 60 mg daily - SBP goal <160 and DBP goal <90 while inpatient - continue to monitor #CAD with multivessel disease s/p PCI in jun 2018- chronic -[facility] 06/20/2018 successful PCI with intravascular ultrasound of the ramus with DIANELYS which was 100% culprit vessel with DIANELYS. Left main patent, LAD patent. RCA mmoderate to severe tortuosity with mid stent patent, circumflex pateent, ARIELA 50% with sintia 100% with successful PCI. Acute diastolic dysfunction - continue Atorvastatin 40 mg daily, aspirin 81 mg daily, Plavix 75 mg daily #Non-insulin dependent type II diabetes mellitus - hemoglobin A1c: unknown - home regimen: none - current regimen: moderate SSI - blood glucose goal 140-180 while inpatient - continue to monitor #History of COPD #Chronic hypoxic respiratory failure- stable #Acute on chronic hypoxic respiratory failure- ruled out --> at baseline oxygen requirements - currently at baseline oxygen requirement of 4L NC -albuterol, ipratropium and budesonide Neb ordered -titrate o2 NC to home requirements -will need albuterol and symbicort at discharge #Depression #Anxiety Continue home meds:Citalopram 20 mg daily, mirtazapine 7.5 mg nightly, hydroxyzine 25 mg twice daily as needed #Tobacco dependence #Tobacco/Smoking cessation counseling - Counseled patient about the importance of smoking cessation and the possible sequelae as a result of continued tobacco consumption. The patient expresses understanding. -Time: +15 mins #Morbid obesity #Weight loss counseling #Exercise counseling - BMI 47.4 - Counseled patient on the importance of weight loss, incorporating exercise, and dietary changes (lean meats, fresh fruits and vegetables, and water intake). Patient expresses understanding. - Time: +15 min #Noncompliance - Patient has been counseled at length on multiple admissions about importance of medication compliance and following up with physicians in clinic; however, the patient continues to display actions contrary to medical recommendations Time: +20 minutes #Advanced care planning -Disease education conducted, care plan discussed, diagnoses discussed, prognosis discussed, and patient acknowledges understanding with care plan -Time: +30 min Disposition Plan: Pending discharge home tomorrow Total Time Spent with Patient (Minutes): 30 minutes History Interval history: No acute events overnight. Hospitalist Physical - Constitutional Vitals: Temp Pulse Resp BP Pulse Ox 98.3 F 94 H 18 143/83 97 09/29/21 04:17 09/29/21 10:19 09/29/21 10:19 09/29/21 10:59 09/29/21 10:00 General appearance: Present: no acute distress, well-nourished - EENT Eyes: Present: PERRL, EOM intact ENT: hearing intact, clear oral mucosa, dentition normal - Neck Neck: Present: supple, normal ROM - Respiratory Respiratory effort: normal Respiratory: bilateral: diminished (4 L nasal cannula (baseline)) - Cardiovascular Rhythm: regular Heart Sounds: Present: S1 & S2 - Extremities Extremities: no ischemia, pulses intact, pulses symmetrical, normal temperature, normal color, Full ROM Extremity abnormal: edema (Trace edema bilateral lower extremities) Peripheral Pulses: within normal limits - Abdominal General gastrointestinal: soft, non-tender, non-distended, normal bowel sounds - Integumentary Integumentary: Present: clear, warm, dry - Psychiatric Psychiatric: appropriate mood/affect, intact judgment & insight, memory intact, cooperative - Neurologic Neurologic: CNII-XII intact, moves all extremities - Allied Health Allied health notes reviewed: nursing HEART Score - HEART Score EKG: Non-specific Age: 45-65 Risk factors: > 3 risk factors or hx of atherosclerotic disease Troponin: Troponin T < 0.010 ng/mL (0.00-0.029) 09/27/21 22:48 Troponin: < normal limit Results - Labs CBC & Chem 7: 09/29/21 05:58 09/29/21 05:58 Labs: Laboratory Last Values WBC 5.9 K/mm3 (4.5-11.0) 09/29/21 05:58 RBC 5.43 M/mm3 (3.65-5.03) H 09/29/21 05:58 Hgb 10.9 gm/dl (10.1-14.3) 09/29/21 05:58 Hct 35.7 % (30.3-42.9) 09/29/21 05:58 MCV 66 fl (79-97) L 09/29/21 05:58 MCH 20 pg (28-32) L 09/29/21 05:58 MCHC 31 % (30-34) 09/29/21 05:58 RDW 22.0 % (13.2-15.2) H 09/29/21 05:58 Plt Count 257 K/mm3 (140-440) 09/29/21 05:58 Lymph % (Auto) 9.7 % (13.4-35.0) L 09/29/21 05:58 [place] % (Auto) 12.6 % (0.0-7.3) H 09/29/21 05:58 Eos % (Auto) 8.5 % (0.0-4.3) H 09/29/21 05:58 Baso % (Auto) 0.6 % (0.0-1.8) 09/29/21 05:58 Lymph # (Auto) 0.6 K/mm3 (1.2-5.4) L 09/29/21 05:58 [place] # (Auto) 0.7 K/mm3 (0.0-0.8) 09/29/21 05:58 Eos # (Auto) 0.5 K/mm3 (0.0-0.4) H 09/29/21 05:58 Baso # (Auto) 0.0 K/mm3 (0.0-0.1) 09/29/21 05:58 Seg Neutrophils % 68.6 % (40.0-70.0) 09/29/21 05:58 Seg Neutrophils # 4.0 K/mm3 (1.8-7.7) 09/29/21 05:58 Sodium 139 mmol/L (137-145) 09/29/21 05:58 Potassium 3.9 mmol/L (3.6-5.0) 09/29/21 05:58 Chloride 105.1 mmol/L (98-107) 09/29/21 05:58 Carbon Dioxide 22 mmol/L (22-30) 09/29/21 05:58 Anion Gap 16 mmol/L 09/29/21 05:58 BUN 18 mg/dL (7-17) H 09/29/21 05:58 Creatinine 1.1 mg/dL (0.6-1.2) D 09/29/21 05:58 Estimated GFR > 60 ml/min 09/29/21 05:58 BUN/Creatinine Ratio 16 % 09/29/21 05:58 Glucose 87 mg/dL (65-100) 09/29/21 05:58 POC Glucose 115 mg/dL (70-105) H 09/29/21 11:00 Calcium 9.1 mg/dL (8.4-10.2) 09/29/21 05:58 Total Creatine Kinase 64 units/L (30-135) 09/27/21 22:48 CK-MB (CK-2) 3.8 ng/mL (0.0-4.0) 09/27/21 22:48 CK-MB (CK-2) Rel Index 5.9 (0-4) H 09/27/21 22:48 Troponin T < 0.010 ng/mL (0.00-0.029) 09/27/21 22:48 NT-Pro-B Natriuret Pep 7433 pg/mL (0-900) H 09/27/21 22:48 Fabian/IV: Voiding Method External Female Catheter Active Medications - Current Medications Current Medications: Generic Name Dose Route Start Last Admin Trade Name Freq PRN Reason Stop Dose Admin Acetaminophen 650 mg 09/28/21 03:00 09/28/21 16:22 Acetaminophen 325 Mg Tab PO 650 mg Q4H PRN Administration Pain MILD(1-3)/Fever >100.5/ALAS Albuterol 2.5 mg 09/28/21 03:00 Albuterol 2.5 Mg/3 Ml Nebu IH Q3HRT PRN Shortness Of Breath Albuterol/Ipratropium 1 ampul 09/29/21 08:00 09/29/21 10:14 Ipratropium/Albuterol Sulfate 3 Ml Ampul.Neb IH 1 ampul TIDRT ANN MARIE Administration Arformoterol Tartrate 15 mcg 09/28/21 08:00 09/29/21 10:13 Arformoterol 15 Mcg/2 Ml Nebu IH 15 mcg Q12HRT ANN MARIE Administration Aspirin 81 mg 09/28/21 10:00 09/29/21 10:43 Aspirin Ec 81 Mg Tab PO 81 mg QDAY ANN MARIE Administration Atorvastatin Calcium 40 mg 09/28/21 22:00 09/28/21 22:08 Atorvastatin 40 Mg Tab PO 40 mg QHS ANN MARIE Administration Budesonide 0.5 mg 09/28/21 08:00 09/29/21 10:13 Budesonide 0.5 Mg/2 Ml Nebu IH 0.5 mg Q12HRT ANN MARIE Administration Citalopram Hydrobromide 20 mg 09/28/21 10:00 09/29/21 10:42 Citalopram 20 Mg Tab PO 20 mg QDAY ANN MARIE Administration Clonidine HCl 0.1 mg 09/28/21 10:00 09/29/21 10:42 Clonidine 0.1 Mg Tab PO 0.1 mg Q12HR ANN MARIE Administration Clopidogrel Bisulfate 75 mg 09/28/21 10:00 09/29/21 10:42 Clopidogrel 75 Mg Tab PO 75 mg QDAY ANN MARIE Administration Dextrose 50 ml 09/28/21 03:00 Dextrose 50% In Water (25gm) 50 Ml Syringe IV Q30MIN PRN Hypoglycemia Protocol Famotidine 20 mg 09/28/21 10:00 09/29/21 10:42 Famotidine 20 Mg Tab PO 20 mg BID ANN MARIE Administration Furosemide 40 mg 09/28/21 06:00 09/29/21 06:29 Furosemide 40 Mg/4 Ml Inj IV 40 mg BID@0600,1800 ANN MARIE Administration Heparin Sodium (Porcine) 5,000 unit 09/28/21 10:00 09/29/21 10:43 Heparin 5,000 Unit/1 Ml Vial SUB-Q 5,000 unit Q12HR ANN MARIE Administration Hydralazine HCl 100 mg 09/28/21 06:00 09/29/21 06:28 Hydralazine 100 Mg Tab PO 100 mg Q8HR ANN MARIE Administration Hydralazine HCl 10 mg 09/28/21 04:11 09/28/21 04:20 Hydralazine 20 Mg/1 Ml Inj IV 10 mg Q6HR PRN Administration htn Hydroxyzine Pamoate 25 mg 09/28/21 10:00 Hydroxyzine Pamoate 25 Mg Cap PO BID PRN Anxiety Insulin Human Lispro 0 unit 09/28/21 07:30 09/29/21 12:01 Insulin Lispro 100 Unit/Ml SUB-Q Not Given ACHS [facility] Protocol Isosorbide Mononitrate 60 mg 09/28/21 10:00 09/29/21 10:42 Isosorbide Mononitrate Er 60 Mg Tab PO 60 mg QDAY ANN MARIE Administration Morphine Sulfate 2 mg 09/28/21 03:00 09/29/21 12:01 Morphine 2 Mg/1 Ml Inj IV 2 mg Q4H PRN Administration Pain, Moderate (4-6) Morphine Sulfate 4 mg 09/28/21 03:00 09/29/21 03:00 Morphine 4 Mg/1 Ml Inj IV 4 mg Q4H PRN Administration Pain , Severe (7-10) Ondansetron HCl 4 mg 09/28/21 01:40 Ondansetron 4 Mg/2 Ml Inj IV Q8H PRN Nausea And Vomiting Sodium Chloride 10 ml 09/28/21 10:00 09/29/21 10:45 Sodium Chloride 0.9% 10 Ml Flush Syringe IV 10 ml BID ANN MARIE Administration Sodium Chloride 10 ml 09/28/21 01:40 Sodium Chloride 0.9% 10 Ml Flush Syringe IV PRN PRN LINE FLUSH Nutrition/Malnutrition Assess - Dietary Evaluation Nutrition/Malnutrition Findings: Nutrition Notes Start: 09/28/21 17:28 Freq: Status: Active Protocol: Document 09/28/21 17:28 FREDERICK (Rec: 09/28/21 17:36 FREDERICK [id number]) Nutrition Notes Need for Assessment generated from: MD Order,Education Initial or Follow up Brief Note Current Diagnosis COPD,Coronary Artery Disease, Diabetes,Hypertension, Respiratory Failure Other Pertinent Diagnosis NE, CHF, DVT, ACS, s/p Stent Placement. Current Diet Cardiac/Consistent Carbohydrates Diet (since B ). Height 5 ft 11 in Weight 154.22 kg [place] Body Weight (kg) 70.45 BMI 47.4 Intake Prior to Admission Good Weight change and time frame Pt denies having loss body weight [employer]. Weight Status Morbidly Obese Subjective/Other Information RD consult for nutrition education assessment. No reports available on Pt's PO intake of meals at the time , will assess at F/U. Pt is on Nasal Cannula, O2 saturation @ 94%, according to Physical Assessment History notes. Pt still in critical condition , not a candidate for Nutrition Education at the time, will assess feasibility on F/U. Percent of energy/protein needs met: Prescribed Cardiac/Consistent Carbohydrates Diet provides for energy/protein needs (1, 977 Kcal/86 g) during LOS. Nutrition Intervention Follow-Up By: 10/05/21 Additional Comments Nutrition education will be provided on F/U, if feasible. Continue monitoring food tolerance, %PO intake of meals , and BM.
--- NOTE | 2021-09-29 13:19 | Discharge Summary ---
Providers - Providers Date of Admission: 09/28/21 01:40 Date of discharge: 09/30/21 Attending physician: NATHAN ERNANDEZ MD 09/28/21 01:40 Consult to Dietitian/Nutrition [CONS] Routine Physician Instructions: Reason For Exam: Reason for Consult: Diet education 09/28/21 14:12 Physical Therapy Evaluation and Treat [CONS] Routine Comment: Reason For Exam: Acute respiratory failure Primary care physician: MICHAEL BARON Hospitalization Reason for admission: Acute on chronic diastolic heart failure Condition: Fair Pertinent studies: Reviewed. Procedures: None. Hospital course: Patient is a 61-year-old female past medical history of chronic diastolic heart failure, hypertension, CAD with multivessel disease status post PCI (June 2018), noninsulin-dependent type 2 diabetes mellitus, COPD, chronic hypoxic respiratory failure, depression, anxiety, tobacco dependence, morbid obesity, and noncompliance of medical recommendations who presented to the ED with complaints of 3-4 days of shortness of breath that is worsened with exertion. Patient describes having intermittent substernal chest pain radiating to her left shoulder that is described as "someone is sitting on me". Patient denies any nausea, vomiting. In the ED, the patient was found to be hemodynamically stable and currently at her baseline oxygen requirements (4 L nasal cannula). She had labs that were remarkable for proBNP 11/13/1932 and unremarkable tropo nins. Patient was admitted for management of acute on chronic diastolic heart failure. The patient was started on IV diuresis, and her home antihypertensives were restarted. Patient was placed on fluid restriction, and the patient has since resolved her acute exacerbation of heart failure. The patient is medically clear for discharge. Patient was counseled at length about the importance of medication compliance and following with her outpatient appointments. Patient expressed understanding. Disposition: HOME / SELF CARE / HOMELESS Final Discharge Diagnosis (Prints w/discharge instructions): Acute on chronic diastolic heart failure, hypertension, CAD with multivessel disease status post PCI in June 2018, [id number] type 2 diabetes mellitus, COPD, chronic hypoxic respiratory failure, depression, anxiety, tobacco dependence, morbid obesity, medication noncompliance Time spent for discharge: 45 min Core Measure Documentation - Palliative Care Palliative Care/ Comfort Measures: Not Applicable - Core Measures Any of the following diagnoses?: heart failure - Heart Failure Discharge Requirements LETTY/ARB for LVSD if EF <40%: Yes Beta vamsi at discharge: Yes Exam - Constitutional Vitals: Temp Pulse Resp BP Pulse Ox 98.3 F 94 H 18 143/83 97 09/29/21 04:17 09/29/21 10:19 09/29/21 10:19 09/29/21 10:59 09/29/21 10:00 General appearance: Present: no acute distress, well-nourished, obese - EENT Eyes: Present: PERRL, EOM intact ENT: hearing intact, clear oral mucosa, dentition normal - Neck Neck: Present: supple, normal ROM - Respiratory Respiratory effort: normal Respiratory: bilateral: diminished (On 4 L nasal cannula (baseline)) - Cardiovascular Rhythm: regular Heart Sounds: Present: S1 & S2 - Extremities Extremities: no ischemia, pulses intact, pulses symmetrical, No edema, normal temperature, normal color, Full ROM Peripheral Pulses: within normal limits - Abdominal General gastrointestinal: Present: soft, non-tender, non-distended, normal bowel sounds Female genitourinary: Present: deferred - Rectal Rectal Exam: deferred - Integumentary Integumentary: Present: clear, warm, dry - Musculoskeletal Musculoskeletal: strength equal bilaterally - Psychiatric Psychiatric: appropriate mood/affect, intact judgment & insight, memory intact, cooperative - Neurologic Neurologic: CNII-XII intact, moves all extremities - Allied Health Allied health notes reviewed: nursing Plan Activity: advance as tolerated Diet: low salt, diabetic Additional Instructions: Patient is a 61-year-old female past medical history of chronic diastolic heart failure, hypertension, CAD with multivessel disease status post PCI (June 2018), noninsulin-dependent type 2 diabetes mellitus, COPD, chronic hypoxic respiratory failure, depression, anxiety, tobacco dependence, morbid obesity, and noncompliance of medical recommendations who presented to the ED with complaints of 3-4 days of shortness of breath that is worsened with exertion. Patient describes having intermittent substernal chest pain radiating to her left shoulder that is described as "someone is sitting on me". Patient denies any nausea, vomiting. In the ED, the patient was found to be hemodynamically stable and currently at her baseline oxygen requirements (4 L nasal cannula). She had labs that were remarkable for proBNP 11/13/1932 and unremarkable troponins. Patient was admitted for management of acute on chronic diastolic heart failure. The patient was started on IV diuresis, and her home antihypertensives were restarted. Patient was placed on fluid restriction, and the patient has since resolved her acute exacerbation of heart failure. The patient is medically clear for discharge. Patient was counseled at length about the importance of medication compliance and following with her outpatient appointments. Patient expressed understanding. Care Plan Goals: Patient is medically clear for discharge. Assessment: Patient is a 61-year-old female past medical history of chronic diastolic heart failure, hypertension, CAD with multivessel disease status post PCI (June 2018), noninsulin-dependent type 2 diabetes mellitus, COPD, chronic hypoxic respiratory failure, depression, anxiety, tobacco dependence, morbid obesity, and noncompliance of medical recommendations who presented to the ED with complaints of 3-4 days of shortness of breath that is worsened with exertion. Patient describes having intermittent substernal chest pain radiating to her left shoulder that is described as "someone is sitting on me". Patient denies any nausea, vomiting. In the ED, the patient was found to be hemodynamically stable and currently at her baseline oxygen requirements (4 L nasal cannula). She had labs that were remarkable for proBNP 11/13/1932 and unremarkable troponins. Patient was admitted for management of acute on chronic diastolic heart failure. The patient was started on IV diuresis, and her home antihypertensives were restarted. Patient was placed on fluid restriction, and the patient has since resolved her acute exacerbation of heart failure. The patient is medically clear for discharge. Patient was counseled at length about the importance of medication compliance and following with her outpatient appointments. Patient expressed understanding. Follow up with: MICHAEL BARON MD [Primary Care Provider] - 3-5 Days
[2021-09-29] MEDS: FUROSEMIDE 40 MG TAB PO SCH (17:02)
[2021-09-29] MEDS ORDERED: NON-FORMULARY EACH (Mirtazapine [Mirtazapine] 7.5 MG Tablet) PO SCH (22:00)
[2021-09-29] MEDS ORDERED: MIRTAZAPINE 15 MG TAB PO SCH (22:00)
[2021-09-30] MEDS: FUROSEMIDE 40 MG TAB PO SCH (06:10)
[2021-09-30] MEDS: hydrALAZINE 100 MG TAB PO SCH (06:10)
[2021-09-30 06:44] LABS: BUN/Creatinine Ratio 22; Blood Urea Nitrogen 20 mg/dL (7-17); Calcium 9.3 mg/dL (8.4-10.2); Hemolysis Index 0
[2021-09-30] MEDS: INSULIN LISPRO 100 UNIT/ML SUB-Q SCH (08:25)
[2021-09-30] MEDS: IPRATROPIUM/ALBUTEROL SULFATE 3 ML AMPUL.NEB IH SCH (08:39)
[2021-09-30] MEDS: BUDESONIDE 0.5 MG/2 ML NEBU IH SCH (08:39)
[2021-09-30] MEDS: ARFORMOTEROL 15 MCG/2 ML NEBU IH SCH (08:39)
[2021-09-30 09:43] VITALS: BP 158/87
[2021-09-30] MEDS: ASPIRIN EC 81 MG TAB PO SCH (09:45)
[2021-09-30] MEDS: FAMOTIDINE 20 MG TAB PO SCH (09:45)
[2021-09-30] MEDS: HEPARIN 5,000 UNIT/1 ML VIAL SUB-Q SCH (09:46)
[2021-09-30] MEDS: CLOPIDOGREL 75 MG TAB PO SCH (09:46)
[2021-09-30] MEDS: CITALOPRAM 20 MG TAB PO SCH (09:46)
[2021-09-30] MEDS: cloNIDine 0.1 MG TAB PO SCH (09:46)
[2021-09-30] MEDS ORDERED: VALSARTAN 160MG TAB PO SCH (10:00)
== END 2021-09-30 14:02 | disposition home or self-care (01) | DRG 291 ==
LOC: ED 21:24 → 4A 09-28 01:40
PROVIDERS: ADMIT Hospitalist; ATTEND Student in an Organized Health Care Education/Training Program
DX: I11.0 Hypertensive heart disease with heart failure (principal); I50.33 Acute on chronic diastolic (congestive) heart failure; J96.11 Chronic respiratory failure with hypoxia; I16.0 Hypertensive urgency; J44.9 Chronic obstructive pulmonary disease, unspecified; M19.90 Unspecified osteoarthritis, unspecified site; F17.210 Nicotine dependence, cigarettes, uncomplicated; I25.10 Atherosclerotic heart disease of native coronary artery without angina pectoris; E11.9 Type 2 diabetes mellitus without complications; E66.01 Morbid (severe) obesity due to excess calories; F32.A Depression, unspecified; F41.9 Anxiety disorder, unspecified; Z90.49 Acquired absence of other specified parts of digestive tract; Z95.5 Presence of coronary angioplasty implant and graft; Z86.718 Personal history of other venous thrombosis and embolism; I25.2 Old myocardial infarction; Z90.710 Acquired absence of both cervix and uterus; Z91.14 Patient's other noncompliance with medication regimen
CPT/HCPCS: 36415; 71045; 80048; 82550; 82553; 82962; 83880; 84484; 85025; 93005; 94640; 94760; 99406; G0378; J3490; J0360; J1644; J1940; J2270; J2405; J3010

== ENCOUNTER 2022-01-06 08:02 | Inpatient (IN) | payer BC ==
[2022-01-06] MEDS ORDERED: cloNIDine 0.2 MG TAB PO ONE (08:40)
[2022-01-06] MEDS ORDERED: NITROGLYCERIN 2% OINT 1 GM TP ONE (08:40)
[2022-01-06] MEDS ORDERED: fentaNYL 100 MCG/2 ML INJ IV ONE (08:42)
[2022-01-06] MEDS ORDERED: ONDANSETRON 4 MG/2 ML INJ IV ONE (08:42)
[2022-01-06] MEDS ORDERED: ASPIRIN 325 MG TAB PO ONE (08:43)
--- NOTE | 2022-01-06 09:04 | XRay Report ---
CHEST 1 VIEW 01/06/2022 8:47 AM INDICATION / CLINICAL INFORMATION: chest pain, shortness of breath. COMPARISON: Radiographs 11/08/2021 FINDINGS: SUPPORT DEVICES: None. HEART / MEDIASTINUM: Marked cardiomegaly. LUNGS / PLEURA: Increased interstitial prominence throughout the bilateral lungs. No pneumothorax. ADDITIONAL FINDINGS: No significant additional findings. IMPRESSION: 1. Cardiomegaly with pulmonary edema, as seen at [facility]. 2. Superimposed pneumonia cannot be excluded. Signer Name: Dick Montano MD Signed: 01/06/2022 8:59 AM Workstation Name: [email or web address]
--- NOTE | 2022-01-06 09:10 | Emergency Department Report ---
HPI - General Chief Complaint: Dyspnea/Respdistress Time Seen by Provider: 01/06/22 08:29 - HPI HPI: Room 7 Patient is a 61-year-old female present with a chief complaint of chest pain or shortness of breath. Patient states for the past 3 to 4 days she has had shortness of breath at rest and dyspnea exertion with 10 feet. Patient states she is been compliant with her Lasix. Patient states she is also had left upper extremity numbness for the past 3 days. Patient states today she developed substernal chest pain feeling as though someone is sitting on her chest. Patient states this chest pain is been intermittent and she currently gives it a score 7/10. Patient admits to nausea but denies vomiting. The patient's is usually on home O2 4 to 5 L nasal cannula however EMS states this morning although the oxygen tank read full it was not administering any oxygen. Patient was originally found hypoxic at 88 to 90% on room air. Patient states her last cardiac catheterization occurred 2 to 3 years ago when she had a heart stent placed. ED Past Medical Hx - Past Medical History Previous Medical History?: Yes Hx Hypertension: Yes Hx Heart Attack/AMI: Yes Hx Congestive Heart Failure: Yes Hx Diabetes: Yes Hx Deep Vein Thrombosis: Yes (left leg) Hx Pulmonary Embolism: Yes Hx Arthritis: Yes (gout) Hx COPD: Yes (4 LPM O2) Additional medical history: CAD - Surgical History Past Surgical History?: Yes Hx Coronary Stent: Yes Hx Cholecystectomy: Yes Hx Appendectomy: Yes Additional Surgical History: HYSTERECTOMY. TONSILLECTOMY - Family History Family history: no significant - Social History Smoking Status: Current Every Day Smoker (1/7 pack/day) Substance Use Type: None (Denies illicit drug use) - Medications Home Medications: Home Medications Medication Instructions Recorded Confirmed Last Taken Type Mirtazapine 7.5 mg PO QHS #30 tablet 09/19/20 11/05/21 12/26/20 Rx hydrOXYzine PAMOATE [Vistaril] 25 mg PO BID PRN #60 capsule 09/19/20 11/05/21 03/24/21 Rx Celecoxib [celeBREX] 200 mg PO DAILY #60 cap 02/04/21 11/05/21 03/10/21 Rx Multivit-Min36/Iron/Folic Acid 1 each PO QDAY 03/27/21 11/05/21 03/24/21 History [Geritol Complete Tablet] Albuterol Sulfate [Proventil Hfa] 2 puff IH Q4H PRN 30 Days #3 each 08/09/21 11/05/21 Unknown Rx Aspirin EC [Halfprin EC] 81 mg PO QDAY 30 Days #30 tablet 08/09/21 11/05/21 Unknown Rx AtorvaSTATin [Lipitor] 40 mg PO QHS 30 Days #30 tablet 08/09/21 11/05/21 Unknown Rx Budesonide/Formoterol Fumarate 10.2 gm IH BID 30 Days #3 each 08/09/21 11/05/21 Unknown Rx [Symbicort 160-4.5 Mcg Inhaler] Bumetanide [Bumex 1 mg tab] 1 mg PO QDAY 30 Days #30 tablet 08/09/21 11/05/21 Unknown Rx Famotidine [Acid-Pep] 20 mg PO DAILY 90 Days #90 tablet 08/09/21 11/05/21 Unknown Rx ISOSORBIDE MONOnitrate [Imdur ER] 60 mg PO QDAY 30 Days #30 tablet 08/09/21 11/05/21 Unknown Rx Mometasone Furoate [Asmanex Hfa] 13 gm IH DAILY #90 hfa.aer.ad 08/09/21 11/05/21 Unknown Rx Montelukast [Singulair] 10 mg PO QHS 30 Days #30 tablet 08/09/21 11/05/21 Unknown Rx Azithromycin [Zithromax Z-MARCOS] 0 mg PO DAILY #1 pkg 11/11/21 Unknown Rx Citalopram [Celexa] 20 mg PO QDAY 30 Days #30 tab 11/11/21 Unknown Rx Clopidogrel [Plavix] 75 mg PO QDAY 30 Days #30 tablet 11/11/21 Unknown Rx Furosemide [Lasix TAB] 40 mg PO QDAY #30 tablet 11/11/21 Unknown Rx Metoprolol [Lopressor TAB] 50 mg PO BID 30 Days #60 tablet 11/11/21 Unknown Rx NIFEdipine XL [Procardia Xl] 30 mg PO QDAY 30 Days #30 tablet 11/11/21 Unknown Rx Valsartan [Diovan] 160 mg PO DAILY 30 Days #30 tablet 11/11/21 Unknown Rx cloNIDine [Catapres] 0.1 mg PO Q12HR 30 Days #60 tablet 11/11/21 Unknown Rx hydrALAZINE [Apresoline TAB] 100 mg PO Q8HR 30 Days #90 tab 11/11/21 Unknown Rx oxyCODONE /ACETAMINOPHEN [Percocet 1 tab PO Q6HR PRN #12 tablet 11/11/21 Unknown Rx 5/325] predniSONE 4 tab PO DAILY #30 11/11/21 Unknown Rx ED Review of Systems ROS: Stated complaint: DIFFICULTY BREATHING Other details as noted in HPI Constitutional: no symptoms reported Eyes: denies: eye pain ENT: denies: throat pain Respiratory: shortness of breath Cardiovascular: chest pain Endocrine: no symptoms reported Gastrointestinal: nausea. denies: vomiting Genitourinary: denies: dysuria Musculoskeletal: denies: back pain Neurological: headache Physical Exam - Physical Exam Vital Signs: Vital Signs 01/06/22 01/06/22 08:03 08:53 Temperature 98.0 F 98.6 F Pulse Rate 103 H 100 H Respiratory 24 24 Rate Blood Pressure 244/158 Blood Pressure 192/151 [Left] O2 Sat by Pulse 98 96 Oximetry Physical Exam: GENERAL: The patient is well-developed well-nourished female sitting on stretcher not appearing to be in acute distress. [] HEENT: Normocephalic. Atraumatic. Extraocular motions are intact. Patient has moist mucous membranes. NECK: Supple. Trachea midline CHEST/LUNGS: Clear to auscultation. There is slightly increased work of breathing HEART/CARDIOVASCULAR: Regular. There is no tachycardia. There is no gallop rub or murmur. ABDOMEN: Abdomen is soft, nontender. Patient has normal bowel sounds. There is no abdominal distention. SKIN: There is no rash. There is 1-2+ bilateral lower extremity pitting edema. There is no diaphoresis. NEURO: The patient is awake, alert, and oriented. The patient is cooperative. The patient has no focal neurologic deficits. The patient has normal speech. GCS 15 MUSCULOSKELETAL: There is no evidence of acute injury. ED Course Vital Signs 01/06/22 01/06/22 08:03 08:53 Temperature 98.0 F 98.6 F Pulse Rate 103 H 100 H Respiratory 24 24 Rate Blood Pressure 244/158 Blood Pressure 192/151 [Left] O2 Sat by Pulse 98 96 Oximetry ED Medical Decision Making - Lab Data Result diagrams: 01/06/22 08:45 01/06/22 08:45 - EKG Data -: EKG Interpreted by Me EKG shows normal: sinus rhythm Rate: tachycardia (101 bpm) - EKG Data When compared to previous EKG there are: no significant change Interpretation: other (No ischemic changes seen) - Radiology Data Radiology results: report reviewed (Chest x-ray), image reviewed (Chest x-ray) interpreted by me: Chest x-ray-CHF, no pneumothorax [facility] [address] [place] [address] XRay Report Signed Patient: SHAHID FERNANDEZ MR#: [id number] : 1960 Acct:[id number] Age/Sex: 61 / F ADM Date: 01/06/22 Loc: ED Attending Dr: Ordering Physician: PHI WOLFE MD Date of Service: 01/06/22 Procedure(s): XR chest 1V ap Accession Number(s): [id number] cc: PHI WOLFE MD Fluoro Time In Minutes: CHEST 1 VIEW 01/06/2022 8:47 AM INDICATION / CLINICAL INFORMATION: chest pain, shortness of breath. COMPARISON: Radiographs 11/08/2021 FINDINGS: SUPPORT DEVICES: None. HEART / MEDIASTINUM: Marked cardiomegaly. LUNGS / PLEURA: Increased interstitial prominence throughout the bilateral lungs. No pneumothorax. ADDITIONAL FINDINGS: No significant additional findings. IMPRESSION: 1. Cardiomegaly with pulmonary edema, as seen at CHF. 2. Superimposed pneumonia cannot be excluded. Signer Name: Merced Montano MD Signed: 01/06/2022 8:59 AM Workstation Name: [id number] Transcribed By: Dictated By: MERCED MONTANO MD Electronically Authenticated By: MERCED MONTANO MD Signed Date/Time: 01/06/22858 DD/ 7 TD/TT: - Differential Diagnosis CHF exacerbation, ACS, pericarditis, GERD Critical care attestation.: If time is entered above; I have spent that time in minutes in the direct care of this critically ill patient, excluding procedure time. ED Disposition Clinical Impression: Chest pain, CHF exacerbation, Pulmonary edema Disposition: ADMITTED INPATIENT Is pt being admited?: Yes Does the pt Need Aspirin: Yes Condition: Fair Instructions: Nonspecific Chest Pain, Adult, Pulmonary Edema (ED) Time of Disposition: 10:07 (Care transferred to hospitalist Dr. Lowe (discussed with Dr. Estes)) HEART Score - HEART Score History: Moderately suspicious EKG: Normal Age: 45-65 Risk factors: > 3 risk factors or hx of atherosclerotic disease
[2022-01-06] MEDS ORDERED: FUROSEMIDE 40 MG/4 ML INJ IV ONE (09:21)
[2022-01-06 09:34] LABS: Hematocrit 35.7 % (30.3-42.9); Hemoglobin 10.8 gm/dl (10.1-14.3); Mean Corpuscular HGB Conc 30 % (30-34); Mean Corpuscular Volume 69 fl (79-97); Red Blood Count 5.22 M/mm3 (3.65-5.03); Red Cell Distribution Width 25.2 % (13.2-15.2)
[2022-01-06 09:35] LABS: Platelet Count 265 K/mm3 (140-440)
[2022-01-06 09:51] LABS: Creatine Kinase MB 3.2 ng/mL (0.0-4.0)
[2022-01-06 09:52] LABS: Blood Urea Nitrogen 12 mg/dL (7-17); Hemolysis Index 12
[2022-01-06 10:06] LABS: BUN/Creatinine Ratio 17
[2022-01-06] MEDS ORDERED: ACETAMINOPHEN 325 MG TAB PO PRN (10:11)
[2022-01-06] MEDS ORDERED: ONDANSETRON 4 MG/2 ML INJ IV PRN (10:11)
[2022-01-06] MEDS ORDERED: MORPHINE 2 MG/1 ML INJ IV PRN (10:11)
[2022-01-06 10:13] LABS: Anisocytosis 2+; Basophils % (Manual) 0 % (0.0-1.8); Hypochromasia 2+; Platelet Estimate Consistent w Auto; Total Cells Counted 100
--- NOTE | 2022-01-06 12:10 | History and Physical Report ---
History of Present Illness Date of examination: 01/06/22 Date of admission: 01/06/22 10:11 Chief complaint: Worsening shortness of breath acute hypoxic respiratory failure/ History of present illness: Morbidly obese 61-year-old female patient with significant past medical history of Significant past medical history of hypertension, coronary artery disease, con gestive heart failure, history of DVT and PE, type 2 diabetes mellitus, COPD home O2 dependent, morbid obesity presented to the emergency room with worsening shortness of breath acute hypoxic respiratory failure requiring supplemental oxygen patient was noted to have very high blood pressures of 200s systolic and 130s to 150s diastolic. Patient has history of hypertension on multiple antihypertensives on very high doses. Patient received clonidine, with no improvement Patient also complains of intermittent chest pain sometimes associated with nausea and vomiting Patient was found to be hypoxic with O2 sats of 88 to 90% on room air requiring supplemental oxygen Patient has history of coronary artery disease status post recent heart cath with stent placement Past History Past Medical History: CAD, diabetes, heart failure, hypertension, hyperlipidemia Past Surgical History: appendectomy, hysterectomy, tonsillectomy, PTCA Social history: smoking. denies: alcohol abuse, prescription drug abuse Family history: no significant family history Medications and Allergies Allergies Allergy/AdvReac Type Severity Reaction Status Date / Time Penicillins Allergy Severe GO INTO Verified 01/06/22 10:18 SHOCK, ANAPHYLAXIS Home Medications Medication Instructions Recorded Confirmed Last Taken Type Mirtazapine 7.5 mg PO QHS #30 tablet 09/19/20 11/05/21 12/26/20 Rx hydrOXYzine PAMOATE [Vistaril] 25 mg PO BID PRN #60 capsule 09/19/20 11/05/21 03/24/21 Rx Celecoxib [celeBREX] 200 mg PO DAILY #60 cap 02/04/21 11/05/21 03/10/21 Rx Multivit-Min36/Iron/Folic Acid 1 each PO QDAY 03/27/21 11/05/21 03/24/21 History [Geritol Complete Tablet] Albuterol Sulfate [Proventil Hfa] 2 puff IH Q4H PRN 30 Days #3 each 08/09/21 11/05/21 Unknown Rx Aspirin EC [Halfprin EC] 81 mg PO QDAY 30 Days #30 tablet 08/09/21 11/05/21 Unknown Rx AtorvaSTATin [Lipitor] 40 mg PO QHS 30 Days #30 tablet 08/09/21 11/05/21 Unknown Rx Budesonide/Formoterol Fumarate 10.2 gm IH BID 30 Days #3 each 08/09/21 11/05/21 Unknown Rx [Symbicort 160-4.5 Mcg Inhaler] Bumetanide [Bumex 1 mg tab] 1 mg PO QDAY 30 Days #30 tablet 08/09/21 11/05/21 Unknown Rx Famotidine [Acid-Pep] 20 mg PO DAILY 90 Days #90 tablet 08/09/21 11/05/21 Unknown Rx ISOSORBIDE MONOnitrate [Imdur ER] 60 mg PO QDAY 30 Days #30 tablet 08/09/21 11/05/21 Unknown Rx Mometasone Furoate [Asmanex Hfa] 13 gm IH DAILY #90 hfa.aer.ad 08/09/21 11/05/21 Unknown Rx Montelukast [Singulair] 10 mg PO QHS 30 Days #30 tablet 08/09/21 11/05/21 Unknown Rx Azithromycin [Zithromax Z-MARCOS] 0 mg PO DAILY #1 pkg 11/11/21 Unknown Rx Citalopram [Celexa] 20 mg PO QDAY 30 Days #30 tab 11/11/21 Unknown Rx Clopidogrel [Plavix] 75 mg PO QDAY 30 Days #30 tablet 11/11/21 Unknown Rx Furosemide [Lasix TAB] 40 mg PO QDAY #30 tablet 11/11/21 Unknown Rx Metoprolol [Lopressor TAB] 50 mg PO BID 30 Days #60 tablet 11/11/21 Unknown Rx NIFEdipine XL [Procardia Xl] 30 mg PO QDAY 30 Days #30 tablet 11/11/21 Unknown Rx Valsartan [Diovan] 160 mg PO DAILY 30 Days #30 tablet 11/11/21 Unknown Rx cloNIDine [Catapres] 0.1 mg PO Q12HR 30 Days #60 tablet 11/11/21 Unknown Rx hydrALAZINE [Apresoline TAB] 100 mg PO Q8HR 30 Days #90 tab 11/11/21 Unknown Rx oxyCODONE /ACETAMINOPHEN [Percocet 1 tab PO Q6HR PRN #12 tablet 11/11/21 Unknown Rx 5/325] predniSONE 4 tab PO DAILY #30 11/11/21 Unknown Rx Active Meds: Active Medications Acetaminophen (Acetaminophen 325 Mg Tab) 650 mg PO Q4H PRN PRN Reason: Pain MILD(1-3)/Fever >100.5/ALAS Morphine Sulfate (Morphine 2 Mg/1 Ml Inj) 2 mg IV Q4H PRN PRN Reason: Pain, Moderate (4-6) Ondansetron HCl (Ondansetron 4 Mg/2 Ml Inj) 4 mg IV Q8H PRN PRN Reason: Nausea And Vomiting Sodium Chloride (Sodium Chloride 0.9% 10 Ml Flush Syringe) 10 ml IV BID ANN MARIE Sodium Chloride (Sodium Chloride 0.9% 10 Ml Flush Syringe) 10 ml IV PRN PRN PRN Reason: LINE FLUSH Review of Systems Constitutional: fatigue, weakness, no weight loss, no weight gain Ears, nose, mouth and throat: no nasal congestion, no nasal discharge Cardiovascular: chest pain, orthopnea, high blood pressure Respiratory: cough, shortness of breath, dyspnea on exertion, congestion Gastrointestinal: no abdominal pain, no nausea, no vomiting, no diarrhea Genitourinary Female: no flank pain, no dysuria Musculoskeletal: no myalgias, no arthritis Integumentary: no rash, no pruritis, no redness Neurological: weakness, no head injury, no seizures, no syncope Psychiatric: anxiety, no depression Endocrine: no cold intolerance, no heat intolerance Hematologic/Lymphatic: no easy bruising, no easy bleeding Allergic/Immunologic: no urticaria Exam - Constitutional Vitals: Temp Pulse Resp BP Pulse Ox 97.8 F 62 13 193/154 100 01/06/22 09:18 01/06/22 11:45 01/06/22 11:45 01/06/22 11:45 01/06/22 11:45 General appearance: Present: mild distress, well-nourished, obese (Morbidly obese) - EENT Eyes: Present: PERRL, EOM intact - Neck Neck: Present: supple, normal ROM - Respiratory Respiratory effort: normal Respiratory: bilateral: diminished, negative: rales, rhonchi, wheezing - Cardiovascular Rhythm: regular Heart Sounds: Present: S1 & S2 - Extremities Extremities: no ischemia, No edema - Abdominal General gastrointestinal: Present: soft, non-tender, non-distended, normal bowel sounds Female genitourinary: Present: deferred - Rectal Rectal Exam: deferred - Integumentary Integumentary: Present: clear, warm - Musculoskeletal Musculoskeletal: strength equal bilaterally, generalized weakness - Psychiatric Psychiatric: appropriate mood/affect, cooperative - Neurologic Neurologic: moves all extremities HEART Score - HEART Score EKG: Normal Age: 45-65 Risk factors: > 3 risk factors or hx of atherosclerotic disease Troponin: Troponin T < 0.010 ng/mL (0.00-0.029) 01/06/22 08:45 Results - Labs CBC & Chem 7: 01/06/22 08:45 01/06/22 08:45 Labs: Abnormal lab results 01/06/22 01/06/22 Range/Units 08:45 08:45 RBC 5.22 H (3.65-5.03) M/mm3 MCV 69 L (79-97) fl MCH 21 L (28-32) pg RDW 25.2 H (13.2-15.2) % Seg Neuts % (Manual) 85.0 H (40.0-70.0) % Lymphocytes % (Manual) 8.0 L (13.4-35.0) % Lymphocytes # (Manual) 0.6 L (1.2-5.4) K/mm3 CK-MB (CK-2) Rel Index 4.6 H (0-4) NT-Pro-B Natriuret Pep 69982 H (0-900) pg/mL Assessment and Plan --Hypertensive urgency; Patient's blood pressures are uncontrolled Ranging in 200s systolic, 130s to 140s diastolic Patient is on multiple very high dose antihypertensives Resume all of them, IV hydralazine as needed Closely monitor, adjust medications as needed If blood pressures are not improved, will consider Cardene drip and transfer to ICU or IMCU if needed -- Acute on chronic hypoxic respiratory failure ; Due to acute exacerbation of COPD as well as acute exacerbation of congestive heart failure Treat the underlying cause, patient is already on 4 L of nasal cannula at home Titrate O2 sats to more than 90% --Acute exacerbation of COPD ; 4 to 5 L oxygen dependent Oxygen, nebulizers, IV steroids, inhalation steroids Empiric antibiotics, i titrate oxygen to more than 90% Supportive care, pulmonary consult if needed --Acute exacerbation of diastolic CHF (congestive heart failure) Managed with antifailure medications /HFp EF, daily weights Input output monitoring, fluid restriction LVEF 50 to 55% -- Medical noncompliance Noncompliance and importance of taking medications on time was counseled about --Hyperlipidemia Continue statins, low-cholesterol diet --Coronary artery disease status post PCI Continue aspirin and isosorbide mononitrate Resume home cardiac medications --Depression Continue antidepressants Supportive care, psych evaluation if needed -Morbid obesity; BMI 53.0 Counseling done strongly advised diet modification, exercise as tolerated and weight reduction when medically stable also advised to see bariatric surgeon as outpatient for further evaluation and management with, weight reduction programs -Obesity hypoventilation syndrome Oxygen, supportive care O2 evaluation, home CPAP BiPAP as needed --DVT prophylaxis Subcu Lovenox --Advance care planning Disease education conducted, care plan discussed, diagnosis discussed, and prognosis discussed, patient is full code. Patient acknowledged understanding and agreement with care plan. Morbid obesity; behavioral and lifestyle changes, exercise as tolerated Dietary modification Preventive health care therapy; strongly advised to comply with Medication, diet, follow-up visits Closely monitor the patient and adjust the management as needed Plan of care reviewed with the patient and her nurse Also discussed discharge planning with case management
[2022-01-06] MEDS ORDERED: hydrALAZINE 20 MG/1 ML INJ IV ONE (12:18)
[2022-01-06] MEDS ORDERED: hydrALAZINE 20 MG/1 ML INJ IV PRN (12:46)
[2022-01-06] MEDS ORDERED: hydrALAZINE 100 MG TAB PO ONE (12:46)
[2022-01-06] MEDS ORDERED: NIFEdipine XL 30 MG TAB PO ONE (12:50)
[2022-01-06] MEDS ORDERED: VALSARTAN 160MG TAB PO ONE (12:51)
[2022-01-06] MEDS ORDERED: HYDROmorphone 0.5 MG/0.5 ML INJ IV PRN (12:54)
[2022-01-06] MEDS: hydrALAZINE 100 MG TAB PO SCH ×2 (13:12→21:15)
[2022-01-06] MEDS: ALPRAZolam 0.25 MG TAB PO PRN (13:13)
[2022-01-06] MEDS: cloNIDine 0.1 MG TAB PO SCH (21:16)
[2022-01-06] MEDS: MONTELUKAST 10 MG TAB PO SCH (21:17)
[2022-01-07] MEDS: METOPROLOL TARTRATE 50 MG TAB PO SCH ×3 (00:15→21:52)
[2022-01-07] MEDS: oxyCODONE /ACETAMINOPHEN 5-325MG TAB PO PRN (02:56)
[2022-01-07] MEDS: hydrALAZINE 100 MG TAB PO SCH ×3 (06:18→21:52)
--- NOTE | 2022-01-07 09:18 | Progress Note ---
Assessment and Plan Assessment and plan: --Hypertensive urgency; present on admission Well-controlled today Patient's blood pressures Ranging in 200s systolic, 130s to 140s diastolic Continue multiple antihypertensives and as needed hydralazine Advised compliance with medications diet and follow-up visits -- Acute on chronic hypoxic respiratory failure ; Due to acute exacerbation of COPD as well as acute exacerbation of congestive heart failure Treat the underlying cause, patient is already on 4 L of nasal cannula at home Titrate O2 sats to more than 90% --Acute exacerbation of COPD ; 4 to 5 L oxygen dependent Oxygen, nebulizers, IV steroids, inhalation steroids Empiric antibiotics, i titrate oxygen to more than 90% Supportive care, pulmonary consult if needed --Acute exacerbation of diastolic CHF (congestive heart failure) Managed with antifailure medications /HFp EF, daily weights Input output monitoring, fluid restriction LVEF 50 to 55% -- Medical noncompliance Noncompliance and importance of taking medications on time was counseled about --Hyperlipidemia Continue statins, low-cholesterol diet --Coronary artery disease status post PCI Continue aspirin and isosorbide mononitrate Resume home cardiac medications --Depression Continue antidepressants Supportive care, psych evaluation if needed -Morbid obesity; BMI 53.0 Counseling done strongly advised diet modification, exercise as tolerated and weight reduction when medically stable also advised to see bariatric surgeon as outpatient for further evaluation and management with, weight reduction programs -Obesity hypoventilation syndrome Oxygen, supportive care O2 evaluation, home CPAP BiPAP as needed --DVT prophylaxis Subcu Lovenox --Advance care planning Disease education conducted, care plan discussed, diagnosis discussed, and prognosis discussed, patient is full code. Patient acknowledged understanding and agreement with care plan. Morbid obesity; behavioral and lifestyle changes, exercise as tolerated Dietary modification Preventive health care therapy; strongly advised to comply with Medication, diet, follow-up visits Closely monitor the patient and adjust the management as needed Plan of care reviewed with the patient and her nurse Also discussed discharge planning with case management 01/08/2020; patient's blood pressures well controlled today, patient is still anx ious Low-dose Xanax 0.253 times a day as needed, saturating well on 4 L nasal cannula O2 History Interval history: I have seen and examined the patient at the bedside Patient's chart and medications reviewed Patient was admitted with hypertensive emergenc and acute hypoxic respiratory failure Blood pressures reasonable control today Patient is saturating well on 4 L of nasal cannula oxygen Vital signs reviewed Hospitalist Physical - Constitutional Vitals: Temp Pulse Resp BP Pulse Ox 98.4 F 67 18 134/84 93 01/07/22 08:23 01/07/22 08:23 01/07/22 08:23 01/07/22 08:23 01/07/22 08:23 General appearance: Present: mild distress, well-nourished, obese (Morbidly obese) - EENT Eyes: Present: PERRL, EOM intact - Neck Neck: Present: supple, normal ROM - Respiratory Respiratory effort: normal Respiratory: bilateral: diminished, negative: rales, rhonchi, wheezing - Cardiovascular Rhythm: regular Heart Sounds: Present: S1 & S2 - Extremities Extremities: no ischemia Extremity abnormal: edema - Abdominal General gastrointestinal: soft, non-tender, non-distended, normal bowel sounds - Integumentary Integumentary: Present: clear, warm - Psychiatric Psychiatric: appropriate mood/affect, cooperative - Neurologic Neurologic: CNII-XII intact, moves all extremities HEART Score - HEART Score EKG: Normal Age: 45-65 Risk factors: > 3 risk factors or hx of atherosclerotic disease Troponin: Troponin T < 0.010 ng/mL (0.00-0.029) 01/06/22 08:45 Results - Labs CBC & Chem 7: 01/06/22 08:45 01/06/22 08:45 Labs: Laboratory Last Values WBC 7.1 K/mm3 (4.5-11.0) 01/06/22 08:45 RBC 5.22 M/mm3 (3.65-5.03) H 01/06/22 08:45 Hgb 10.8 gm/dl (10.1-14.3) 01/06/22 08:45 Hct 35.7 % (30.3-42.9) 01/06/22 08:45 MCV 69 fl (79-97) L 01/06/22 08:45 MCH 21 pg (28-32) L 01/06/22 08:45 MCHC 30 % (30-34) 01/06/22 08:45 RDW 25.2 % (13.2-15.2) H 01/06/22 08:45 Plt Count 265 K/mm3 (140-440) 01/06/22 08:45 Add Manual Diff Complete 01/06/22 08:45 Total Counted 100 01/06/22 08:45 Seg Neuts % (Manual) 85.0 % (40.0-70.0) H 01/06/22 08:45 Band Neutrophils % 0 % 01/06/22 08:45 Lymphocytes % (Manual) 8.0 % (13.4-35.0) L 01/06/22 08:45 Reactive Lymphs % (Man) 0 % 01/06/22 08:45 Monocytes % (Manual) 5.0 % (0.0-7.3) 01/06/22 08:45 Eosinophils % (Manual) 2.0 % (0.0-4.3) 01/06/22 08:45 Basophils % (Manual) 0 % (0.0-1.8) 01/06/22 08:45 Metamyelocytes % 0 % 01/06/22 08:45 Myelocytes % 0 % 01/06/22 08:45 Promyelocytes % 0 % 01/06/22 08:45 Blast Cells % 0 % 01/06/22 08:45 Nucleated RBC % Not Reportable 01/06/22 08:45 Seg Neutrophils # Man 6.0 K/mm3 (1.8-7.7) 01/06/22 08:45 Band Neutrophils # 0.0 K/mm3 01/06/22 08:45 Lymphocytes # (Manual) 0.6 K/mm3 (1.2-5.4) L 01/06/22 08:45 Abs React Lymphs (Man) 0.0 K/mm3 01/06/22 08:45 Monocytes # (Manual) 0.4 K/mm3 (0.0-0.8) 01/06/22 08:45 Eosinophils # (Manual) 0.1 K/mm3 (0.0-0.4) 01/06/22 08:45 Basophils # (Manual) 0.0 K/mm3 (0.0-0.1) 01/06/22 08:45 Metamyelocytes # 0.0 K/mm3 01/06/22 08:45 Myelocytes # 0.0 K/mm3 01/06/22 08:45 Promyelocytes # 0.0 K/mm3 01/06/22 08:45 Blast Cells # 0.0 K/mm3 01/06/22 08:45 WBC Morphology Not Reportable 01/06/22 08:45 Hypersegmented Neuts Not Reportable 01/06/22 08:45 Hyposegmented Neuts Not Reportable 01/06/22 08:45 Hypogranular Neuts Not Reportable 01/06/22 08:45 Smudge Cells Not Reportable 01/06/22 08:45 Toxic Granulation Not Reportable 01/06/22 08:45 Toxic Vacuolation Not Reportable 01/06/22 08:45 Dohle Bodies Not Reportable 01/06/22 08:45 Pelger-Huet Anomaly Not Reportable 01/06/22 08:45 Juan Rods Not Reportable 01/06/22 08:45 Platelet Estimate Consistent w auto 01/06/22 08:45 Clumped Platelets Not Reportable 01/06/22 08:45 Plt Clumps, EDTA Not Reportable 01/06/22 08:45 Large Platelets Not Reportable 01/06/22 08:45 Giant Platelets Not Reportable 01/06/22 08:45 Platelet Satelliting Not Reportable 01/06/22 08:45 Plt Morphology Comment Not Reportable 01/06/22 08:45 RBC Morphology Not Reportable 01/06/22 08:45 Dimorphic RBCs Not Reportable 01/06/22 08:45 Polychromasia Not Reportable 01/06/22 08:45 Hypochromasia 2+ 01/06/22 08:45 Poikilocytosis Not Reportable 01/06/22 08:45 Anisocytosis 2+ 01/06/22 08:45 Microcytosis 2+ 01/06/22 08:45 Macrocytosis Not Reportable 01/06/22 08:45 Spherocytes Not Reportable 01/06/22 08:45 Pappenheimer Bodies Not Reportable 01/06/22 08:45 Sickle Cells Not Reportable 01/06/22 08:45 Target Cells Not Reportable 01/06/22 08:45 Tear Drop Cells Not Reportable 01/06/22 08:45 Ovalocytes Not Reportable 01/06/22 08:45 Helmet Cells Not Reportable 01/06/22 08:45 [place] Bodies Not Reportable 01/06/22 08:45 [place] Rings Not Reportable 01/06/22 08:45 Joanna Cells Not Reportable 01/06/22 08:45 Bite Cells Not Reportable 01/06/22 08:45 Crenated Cell Not Reportable 01/06/22 08:45 Elliptocytes Not Reportable 01/06/22 08:45 Acanthocytes (Spur) Not Reportable 01/06/22 08:45 Rouleaux Not Reportable 01/06/22 08:45 Hemoglobin C Crystals Not Reportable 01/06/22 08:45 Schistocytes Not Reportable 01/06/22 08:45 Malaria parasites Not Reportable 01/06/22 08:45 Didier Bodies Not Reportable 01/06/22 08:45 Hem Pathologist Commnt No 01/06/22 08:45 Sodium 142 mmol/L (137-145) 01/06/22 08:45 Potassium 3.7 mmol/L (3.6-5.0) 01/06/22 08:45 Chloride 105.8 mmol/L (98-107) 01/06/22 08:45 Carbon Dioxide 22 mmol/L (22-30) 01/06/22 08:45 Anion Gap 18 mmol/L 01/06/22 08:45 BUN 12 mg/dL (7-17) 01/06/22 08:45 Creatinine 0.7 mg/dL (0.6-1.2) 01/06/22 08:45 Estimated GFR > 60 ml/min 01/06/22 08:45 BUN/Creatinine Ratio 17 % 01/06/22 08:45 Glucose 90 mg/dL (65-100) 01/06/22 08:45 POC Glucose 131 mg/dL (70-105) H 01/06/22 20:09 Calcium 9.0 mg/dL (8.4-10.2) 01/06/22 08:45 Total Creatine Kinase 69 units/L (30-135) 01/06/22 08:45 CK-MB (CK-2) 3.2 ng/mL (0.0-4.0) 01/06/22 08:45 CK-MB (CK-2) Rel Index 4.6 (0-4) H 01/06/22 08:45 Troponin T < 0.010 ng/mL (0.00-0.029) 01/06/22 08:45 NT-Pro-B Natriuret Pep 29695 pg/mL (0-900) H 01/06/22 08:45 Fabian/IV: Voiding Method External Female Catheter Active Medications - Current Medications Current Medications: Generic Name Dose Route Start Last Admin Trade Name Freq PRN Reason Stop Dose Admin Acetaminophen 650 mg 01/06/22 10:11 Acetaminophen 325 Mg Tab PO Q4H PRN Pain MILD(1-3)/Fever >100.5/ALAS Alprazolam 0.25 mg 01/06/22 12:54 01/06/22 13:13 Alprazolam 0.25 Mg Tab PO 0.25 mg Q8H PRN Administration Anxiety Aspirin 81 mg 01/07/22 10:00 Aspirin Ec 81 Mg Tab PO QDAY ANN MARIE Atorvastatin Calcium 40 mg 01/06/22 22:00 01/06/22 21:14 Atorvastatin 40 Mg Tab PO 40 mg QHS [facility] Administration Bumetanide 1 mg 01/07/22 10:00 Bumetanide 1 Mg Tab PO QDAY ANN MARIE Clonidine HCl 0.1 mg 01/06/22 22:00 01/06/22 21:16 Clonidine 0.1 Mg Tab PO 0.1 mg Q12HR [facility] Administration Clopidogrel Bisulfate 75 mg 01/07/22 10:00 Clopidogrel 75 Mg Tab PO QDAY ANN MARIE Hydralazine HCl 100 mg 01/06/22 14:00 01/07/22 06:18 Hydralazine 100 Mg Tab PO 100 mg Q8HR ANN MARIE Administration Hydralazine HCl 20 mg 01/06/22 12:46 Hydralazine 20 Mg/1 Ml Inj IV Q4HR PRN Hypertension Hydromorphone HCl 0.5 mg 01/06/22 12:54 01/07/22 06:19 Hydromorphone 0.5 Mg/0.5 Ml Inj IV 0.5 mg Q4H PRN Administration Pain , Severe (7-10) Isosorbide Mononitrate 60 mg 01/07/22 10:00 Isosorbide Mononitrate Er 60 Mg Tab PO QDAY ANN MARIE Metoprolol Tartrate 50 mg 01/06/22 22:00 01/07/22 00:15 Metoprolol Tartrate 50 Mg Tab PO 50 mg BID ANN MARIE Administration Montelukast Sodium 10 mg 01/06/22 22:00 01/06/22 21:17 Montelukast 10 Mg Tab PO 10 mg QHS ANN MARIE Administration Nifedipine 30 mg 01/07/22 10:00 Nifedipine Xl 30 Mg Tab PO QDAY ANN MARIE Ondansetron HCl 4 mg 01/06/22 10:11 Ondansetron 4 Mg/2 Ml Inj IV Q8H PRN Nausea And Vomiting Oxycodone/Acetaminophen 1 tab 01/06/22 12:54 01/07/22 02:56 Oxycodone /Acetaminophen 5-325mg Tab PO 1 tab Q6H PRN Administration Pain, Moderate (4-6) Sodium Chloride 10 ml 01/06/22 22:00 01/06/22 21:17 Sodium Chloride 0.9% 10 Ml Flush Syringe IV 10 ml BID ANN MARIE Administration Sodium Chloride 10 ml 01/06/22 10:11 Sodium Chloride 0.9% 10 Ml Flush Syringe IV PRN PRN LINE FLUSH Valsartan 160 mg 01/07/22 10:00 Valsartan 160mg Tab PO DAILY ANN MARIE
--- NOTE | 2022-01-07 09:33 | Electrocardiograph Report ---
[facility] Test Date: 2022-01-06 Test Time: 08:46:28 Pat Name: SHAHID FERNANDEZ Department: Room: A454 1 Gender: F [employer] Up Worker: HELENE : 1960 Requested By: PHI WOLFE Order Number: [id number] Reading MD: Lucas Regalado Measurements Intervals [place] Rate: 101 P: 69 OK: 158 QRS: 79 QRSD: 96 T: 64 QT: 393 QTc: 509 Interpretive Statements Sinus tachycardia LAE, consider biatrial enlargement Prolonged QT interval Compared to ECG 11/05/2021 15:26:54 No significant change Electronically Signed On 01-07-2022 9:32:49 EDT by Lucas Regalado
[2022-01-07] MEDS: CLOPIDOGREL 75 MG TAB PO SCH (09:38)
[2022-01-07] MEDS: BUMETANIDE 1 MG TAB PO SCH (09:38)
[2022-01-07] MEDS: NIFEdipine XL 30 MG TAB PO SCH (09:38)
[2022-01-07] MEDS: cloNIDine 0.1 MG TAB PO SCH ×2 (09:38→21:55)
[2022-01-07] MEDS: VALSARTAN 160MG TAB PO SCH (09:38)
[2022-01-07] MEDS: FUROSEMIDE 40 MG/4 ML INJ IV SCH (09:38)
[2022-01-07] MEDS: ASPIRIN EC 81 MG TAB PO SCH (09:38)
[2022-01-07] MEDS: ALPRAZolam 0.25 MG TAB PO PRN (10:13)
[2022-01-07] MEDS: MONTELUKAST 10 MG TAB PO SCH (21:52)
[2022-01-07] MEDS: HYDROmorphone 1 MG/1 ML INJ IV PRN (22:02)
[2022-01-08] MEDS: hydrALAZINE 100 MG TAB PO SCH ×3 (05:45→21:21)
[2022-01-08] MEDS: HYDROmorphone 1 MG/1 ML INJ IV PRN ×3 (05:51→21:22)
[2022-01-08] MEDS: FUROSEMIDE 40 MG/4 ML INJ IV SCH (09:12)
[2022-01-08] MEDS: NIFEdipine XL 30 MG TAB PO SCH (09:12)
[2022-01-08] MEDS: METOPROLOL TARTRATE 50 MG TAB PO SCH ×2 (09:12→21:21)
[2022-01-08] MEDS: BUMETANIDE 1 MG TAB PO SCH (09:12)
[2022-01-08] MEDS: ASPIRIN EC 81 MG TAB PO SCH (09:13)
[2022-01-08] MEDS: CLOPIDOGREL 75 MG TAB PO SCH (09:17)
[2022-01-08] MEDS: ALPRAZolam 0.25 MG TAB PO PRN (11:27)
[2022-01-08] MEDS: cloNIDine 0.1 MG TAB PO SCH (11:28)
[2022-01-08] MEDS: VALSARTAN 160MG TAB PO SCH (11:29)
--- NOTE | 2022-01-08 14:23 | Progress Note ---
Assessment and Plan Assessment and plan: --Hypertensive urgency; present on admission Well-controlled today Patient's blood pressures Ranging in 200s systolic, 130s to 140s diastolic Continue multiple antihypertensives and as needed hydralazine Advised compliance with medications diet and follow-up visits -- Acute on chronic hypoxic respiratory failure ; Due to acute exacerbation of COPD as well as acute exacerbation of congestive heart failure Treat the underlying cause, patient is already on 4 L of nasal cannula at home Titrate O2 sats to more than 90% --Acute exacerbation of COPD ; 4 to 5 L oxygen dependent Oxygen, nebulizers, IV steroids, inhalation steroids Empiric antibiotics, i titrate oxygen to more than 90% Supportive care, pulmonary consult if needed --Acute exacerbation of diastolic CHF (congestive heart failure) Managed with antifailure medications /HFp EF, daily weights Input output monitoring, fluid restriction LVEF 50 to 55% -- Medical noncompliance Noncompliance and importance of taking medications on time was counseled about --Hyperlipidemia Continue statins, low-cholesterol diet --Coronary artery disease status post PCI Continue aspirin and isosorbide mononitrate Resume home cardiac medications --Depression Continue antidepressants Supportive care, psych evaluation if needed -Morbid obesity; BMI 53.0 Counseling done strongly advised diet modification, exercise as tolerated and weight reduction when medically stable also advised to see bariatric surgeon as outpatient for further evaluation and management with, weight reduction programs -Obesity hypoventilation syndrome Oxygen, supportive care O2 evaluation, home CPAP BiPAP as needed --DVT prophylaxis Subcu Lovenox --Advance care planning Disease education conducted, care plan discussed, diagnosis discussed, and prognosis discussed, patient is full code. Patient acknowledged understanding and agreement with care plan. Morbid obesity; behavioral and lifestyle changes, exercise as tolerated Dietary modification Preventive health care therapy; strongly advised to comply with Medication, diet, follow-up visits Closely monitor the patient and adjust the management as needed Plan of care reviewed with the patient and her nurse Also discussed discharge planning with case management 01/08/2020; patient's blood pressures well controlled today, patient is still anx ious Low-dose Xanax 0.25, 3 times a day as needed, saturating well on 4 L nasal cannula O2 01/08; patient complains of some shortness of breath, consult cardiology Optimize medications, supportive care Disposition; follow clinically, discharge when medically stable History Interval history: I have seen and examined the patient at the bedside this morning Patient's chart and medications reviewed Patient feels slightly better, still has some shortness of breath. Denies chest pain Blood pressures are well controlled Hospitalist Physical - Constitutional Vitals: Temp Pulse Resp BP Pulse Ox 98.1 F 55 L 16 105/59 85 01/08/22 12:40 01/08/22 12:40 01/08/22 12:40 01/08/22 12:40 01/08/22 12:40 General appearance: Present: mild distress, well-nourished, obese (Morbidly obese) - EENT Eyes: Present: PERRL, EOM intact - Neck Neck: Present: supple, normal ROM - Respiratory Respiratory effort: normal Respiratory: bilateral: diminished, negative: rales, rhonchi, wheezing - Cardiovascular Rhythm: regular Heart Sounds: Present: S1 & S2 - Extremities Extremities: no ischemia Extremity abnormal: edema, other (Obese) - Abdominal General gastrointestinal: soft, non-tender, non-distended, normal bowel sounds - Integumentary Integumentary: Present: clear, warm - Psychiatric Psychiatric: appropriate mood/affect, cooperative - Neurologic Neurologic: CNII-XII intact, moves all extremities HEART Score - HEART Score EKG: Normal Age: 45-65 Risk factors: > 3 risk factors or hx of atherosclerotic disease Troponin: Troponin T < 0.010 ng/mL (0.00-0.029) 01/06/22 08:45 Results - Labs CBC & Chem 7: 01/06/22 08:45 01/06/22 08:45 Labs: Laboratory Last Values WBC 7.1 K/mm3 (4.5-11.0) 01/06/22 08:45 RBC 5.22 M/mm3 (3.65-5.03) H 01/06/22 08:45 Hgb 10.8 gm/dl (10.1-14.3) 01/06/22 08:45 Hct 35.7 % (30.3-42.9) 01/06/22 08:45 MCV 69 fl (79-97) L 01/06/22 08:45 MCH 21 pg (28-32) L 01/06/22 08:45 MCHC 30 % (30-34) 01/06/22 08:45 RDW 25.2 % (13.2-15.2) H 01/06/22 08:45 Plt Count 265 K/mm3 (140-440) 01/06/22 08:45 Add Manual Diff Complete 01/06/22 08:45 Total Counted 100 01/06/22 08:45 Seg Neuts % (Manual) 85.0 % (40.0-70.0) H 01/06/22 08:45 Band Neutrophils % 0 % 01/06/22 08:45 Lymphocytes % (Manual) 8.0 % (13.4-35.0) L 01/06/22 08:45 Reactive Lymphs % (Man) 0 % 01/06/22 08:45 Monocytes % (Manual) 5.0 % (0.0-7.3) 01/06/22 08:45 Eosinophils % (Manual) 2.0 % (0.0-4.3) 01/06/22 08:45 Basophils % (Manual) 0 % (0.0-1.8) 01/06/22 08:45 Metamyelocytes % 0 % 01/06/22 08:45 Myelocytes % 0 % 01/06/22 08:45 Promyelocytes % 0 % 01/06/22 08:45 Blast Cells % 0 % 01/06/22 08:45 Nucleated RBC % Not Reportable 01/06/22 08:45 Seg Neutrophils # Man 6.0 K/mm3 (1.8-7.7) 01/06/22 08:45 Band Neutrophils # 0.0 K/mm3 01/06/22 08:45 Lymphocytes # (Manual) 0.6 K/mm3 (1.2-5.4) L 01/06/22 08:45 Abs React Lymphs (Man) 0.0 K/mm3 01/06/22 08:45 Monocytes # (Manual) 0.4 K/mm3 (0.0-0.8) 01/06/22 08:45 Eosinophils # (Manual) 0.1 K/mm3 (0.0-0.4) 01/06/22 08:45 Basophils # (Manual) 0.0 K/mm3 (0.0-0.1) 01/06/22 08:45 Metamyelocytes # 0.0 K/mm3 01/06/22 08:45 Myelocytes # 0.0 K/mm3 01/06/22 08:45 Promyelocytes # 0.0 K/mm3 01/06/22 08:45 Blast Cells # 0.0 K/mm3 01/06/22 08:45 WBC Morphology Not Reportable 01/06/22 08:45 Hypersegmented Neuts Not Reportable 01/06/22 08:45 Hyposegmented Neuts Not Reportable 01/06/22 08:45 Hypogranular Neuts Not Reportable 01/06/22 08:45 Smudge Cells Not Reportable 01/06/22 08:45 Toxic Granulation Not Reportable 01/06/22 08:45 Toxic Vacuolation Not Reportable 01/06/22 08:45 Dohle Bodies Not Reportable 01/06/22 08:45 Pelger-Huet Anomaly Not Reportable 01/06/22 08:45 Juna Rods Not Reportable 01/06/22 08:45 Platelet Estimate Consistent w auto 01/06/22 08:45 Clumped Platelets Not Reportable 01/06/22 08:45 Plt Clumps, EDTA Not Reportable 01/06/22 08:45 Large Platelets Not Reportable 01/06/22 08:45 Giant Platelets Not Reportable 01/06/22 08:45 Platelet Satelliting Not Reportable 01/06/22 08:45 Plt Morphology Comment Not Reportable 01/06/22 08:45 RBC Morphology Not Reportable 01/06/22 08:45 Dimorphic RBCs Not Reportable 01/06/22 08:45 Polychromasia Not Reportable 01/06/22 08:45 Hypochromasia 2+ 01/06/22 08:45 Poikilocytosis Not Reportable 01/06/22 08:45 Anisocytosis 2+ 01/06/22 08:45 Microcytosis 2+ 01/06/22 08:45 Macrocytosis Not Reportable 01/06/22 08:45 Spherocytes Not Reportable 01/06/22 08:45 Pappenheimer Bodies Not Reportable 01/06/22 08:45 Sickle Cells Not Reportable 01/06/22 08:45 Target Cells Not Reportable 01/06/22 08:45 Tear Drop Cells Not Reportable 01/06/22 08:45 Ovalocytes Not Reportable 01/06/22 08:45 Helmet Cells Not Reportable 01/06/22 08:45 [place] Bodies Not Reportable 01/06/22 08:45 [place] Rings Not Reportable 01/06/22 08:45 [place] Cells Not Reportable 01/06/22 08:45 Bite Cells Not Reportable 01/06/22 08:45 Crenated Cell Not Reportable 01/06/22 08:45 Elliptocytes Not Reportable 01/06/22 08:45 Acanthocytes (Spur) Not Reportable 01/06/22 08:45 Rouleaux Not Reportable 01/06/22 08:45 Hemoglobin C Crystals Not Reportable 01/06/22 08:45 Schistocytes Not Reportable 01/06/22 08:45 Malaria parasites Not Reportable 01/06/22 08:45 [place] Bodies Not Reportable 01/06/22 08:45 Hem Pathologist Commnt No 01/06/22 08:45 Sodium 142 mmol/L (137-145) 01/06/22 08:45 Potassium 3.7 mmol/L (3.6-5.0) 01/06/22 08:45 Chloride 105.8 mmol/L (98-107) 01/06/22 08:45 Carbon Dioxide 22 mmol/L (22-30) 01/06/22 08:45 Anion Gap 18 mmol/L 01/06/22 08:45 BUN 12 mg/dL (7-17) 01/06/22 08:45 Creatinine 0.7 mg/dL (0.6-1.2) 01/06/22 08:45 Estimated GFR > 60 ml/min 01/06/22 08:45 BUN/Creatinine Ratio 17 % 01/06/22 08:45 Glucose 90 mg/dL (65-100) 01/06/22 08:45 POC Glucose 131 mg/dL (70-105) H 01/06/22 20:09 Calcium 9.0 mg/dL (8.4-10.2) 01/06/22 08:45 Total Creatine Kinase 69 units/L (30-135) 01/06/22 08:45 CK-MB (CK-2) 3.2 ng/mL (0.0-4.0) 01/06/22 08:45 CK-MB (CK-2) Rel Index 4.6 (0-4) H 01/06/22 08:45 Troponin T < 0.010 ng/mL (0.00-0.029) 01/06/22 08:45 NT-Pro-B Natriuret Pep 33362 pg/mL (0-900) H 01/06/22 08:45 Fabian/IV: Voiding Method External Female Catheter Active Medications - Current Medications Current Medications: Generic Name Dose Route Start Last Admin Trade Name Freq PRN Reason Stop Dose Admin Acetaminophen 650 mg 01/06/22 10:11 Acetaminophen 325 Mg Tab PO Q4H PRN Pain MILD(1-3)/Fever >100.5/ALAS Alprazolam 0.25 mg 01/06/22 12:54 01/08/22 11:27 Alprazolam 0.25 Mg Tab PO 0.25 mg Q8H PRN Administration Anxiety Aspirin 81 mg 01/07/22 10:00 01/08/22 09:13 Aspirin Ec 81 Mg Tab PO 81 mg QDAY ANN MARIE Administration Atorvastatin Calcium 40 mg 01/06/22 22:00 01/07/22 21:52 Atorvastatin 40 Mg Tab PO 40 mg QHS ANN MARIE Administration Bumetanide 1 mg 01/07/22 10:00 01/08/22 09:12 Bumetanide 1 Mg Tab PO 1 mg QDAY ANN MARIE Administration Clonidine HCl 0.1 mg 01/06/22 22:00 01/08/22 11:28 Clonidine 0.1 Mg Tab PO Not Given Q12HR ANN MARIE Clopidogrel Bisulfate 75 mg 01/07/22 10:00 01/08/22 09:17 Clopidogrel 75 Mg Tab PO 75 mg QDAY ANN MARIE Administration Furosemide 40 mg 01/07/22 10:00 01/08/22 09:12 Furosemide 40 Mg/4 Ml Inj IV 40 mg QDAY ANN MARIE Administration Hydralazine HCl 100 mg 01/06/22 14:00 01/08/22 14:10 Hydralazine 100 Mg Tab PO Not Given Q8HR ANN MARIE Hydralazine HCl 20 mg 01/06/22 12:46 Hydralazine 20 Mg/1 Ml Inj IV Q4HR PRN Hypertension Hydromorphone HCl 0.5 mg 01/07/22 18:30 01/08/22 14:10 Hydromorphone 1 Mg/1 Ml Inj IV 0.5 mg Q6HR PRN Administration Pain , Severe (7-10) Isosorbide Mononitrate 60 mg 01/07/22 10:00 01/08/22 09:13 Isosorbide Mononitrate Er 60 Mg Tab PO 60 mg QDAY ANN MARIE Administration Metoprolol Tartrate 50 mg 01/06/22 22:00 01/08/22 09:12 Metoprolol Tartrate 50 Mg Tab PO 50 mg BID ANN MARIE Administration Montelukast Sodium 10 mg 01/06/22 22:00 01/07/22 21:52 Montelukast 10 Mg Tab PO 10 mg QHS ANN MARIE Administration Nifedipine 30 mg 01/07/22 10:00 01/08/22 09:12 Nifedipine Xl 30 Mg Tab PO 30 mg QDAY ANN MARIE Administration Ondansetron HCl 4 mg 01/06/22 10:11 Ondansetron 4 Mg/2 Ml Inj IV Q8H PRN Nausea And Vomiting Oxycodone/Acetaminophen 1 tab 01/06/22 12:54 01/07/22 02:56 Oxycodone /Acetaminophen 5-325mg Tab PO 1 tab Q6H PRN Administration Pain, Moderate (4-6) Sodium Chloride 10 ml 01/06/22 22:00 01/08/22 09:14 Sodium Chloride 0.9% 10 Ml Flush Syringe IV 10 ml BID ANN MARIE Administration Sodium Chloride 10 ml 01/06/22 10:11 Sodium Chloride 0.9% 10 Ml Flush Syringe IV PRN PRN LINE FLUSH Valsartan 160 mg 01/07/22 10:00 01/08/22 11:29 Valsartan 160mg Tab PO Not Given DAILY [facility] Nutrition/Malnutrition Assess - Dietary Evaluation Nutrition/Malnutrition Findings: Nutrition Notes Start: 01/07/22 11:52 Freq: Status: Active Protocol: Document 01/08/22 11:20 FREDERICK (Rec: 01/08/22 11:36 FREDERICK [id number]) Nutrition Notes Initial or Follow up Assessment Current Diagnosis COPD,Coronary Artery Disease, Diabetes,Hypertension, Respiratory Failure Other Pertinent Diagnosis CHF, DVT/PE, Depression, OHS. Current Diet Cardiac Diet (since D 01/06). Labs/Tests 01/08: WNL. Pertinent Medications 01/08: Nutritionally unremarkable. Height 5 ft 11 in Weight 172.365 kg Sebastian Body Weight (kg) 70.45 BMI 52.9 Intake Prior to Admission Good Weight change and time frame Pt denies having loss body weight [employer]. No body weight change reported in 1 day. Weight Status Morbidly Obese Subjective/Other Information RD consult for routine F/U on Dietary advancement. Diet continues as prescribed, Pt's PO intake of meals has been Good (75%), according to ADL notes. Pt is on Nasal Cannula, O2 saturation @ 99%, according to Physical Assessment History notes. Pt has missing teeth, according to Physical Assessment History notes. Percent of energy/protein needs met: Prescribed Cardiac Diet provides for energy/protein needs (2,230 Kcal/85 g) during LOS. Burn Absent Trauma Absent GI Symptoms None Food Allergy No Skin Integrity/Comment Assessment WNL. Current % PO Good (75-100%) Minimum of two criteria No Fluid Accumulation N/A Reduced Hospital Carrier Strength N/A (non-severe) Protein-Calorie Malnutrition N\A #1 Nutrition Diagnosis Overweight/obesity Etiology Possibly secondary to Lifestyle. As Evidenced by Signs and Symptoms BMI: 52.9 Kg/m2. Is patient on ventilator? No Is Patient Ambulatory and/or Out of Bed Yes REE-([facility]-ambulatory/OOB) [ 3087.214 [id number]] Kcal/Kg value to use for calculation 12 Approximate Energy Requirements Using 8 kcal/Kg Calculation Used for Recommendations Kcal/kg Additional Notes Protein: <2.5 g/Kg IBW; <175 g /day. Fluids: 1 ml/Kcal, or as per MD. Nutrition Intervention Change Diet Order: Continue Cardiac Diet as tolerated. Goal #1 Adjust the dietary intervention to better serve Pt's needs and clinical conditions during LOS. Follow-Up By: 01/15/22 Additional Comments Continue monitoring food tolerance, %PO intake of meals , dietary supplements, and BM.
--- NOTE | 2022-01-08 14:45 | Consultation ---
History of Present Illness Consult date: 01/08/22 Requesting physician: SIDDHARTHA MERCER Consult reason: congestive heart failure History of present illness: This patient is a 61 y/o female with a PMHX of CAD s/p PCI in 2019 on DAPT, DM, HFpEF(EF50-55%), HTN, COPD on home 02, medical noncompliance who presented to ED with a complaint of shortness of breath x3 to 4 days. Patient reports that over the last several days she has had increasing shortness of breath, dyspnea on exertion, bilateral lower extremity edema. She reports she is compliant with her medications and diet and salt restrictions. Patient states before coming to the hospital her symptoms worsen to the point that she was unable to walk more than 10ft before becoming short of breath. She further reports orthopnea. She denies chest pain, nausea, vomiting, diaphoresis, lightheadedness or palpitations. Of note in the ED patient was found to have blood pressure of 200s/150s, elevated BNP, hypoxic with O2 sats of 88%, and CXR showed pulmonary edema. Of note patient has had numerous admissions for similar complaints. Patient followed with Dr. Hernandez of our practice. Patient has not followed up in our office since 2019. Cardiology was consulted for CHF. Past History Past Medical History: CAD, diabetes, heart failure, hypertension, hyperlipidemia Past Surgical History: appendectomy, hysterectomy, tonsillectomy, PTCA Social history: smoking. denies: alcohol abuse, prescription drug abuse Family history: no significant family history Medications and Allergies Allergies Allergy/AdvReac Type Severity Reaction Status Date / Time Penicillins Allergy Severe GO INTO Verified 01/06/22 10:18 SHOCK, ANAPHYLAXIS Home Medications Medication Instructions Recorded Confirmed Last Taken Type Mirtazapine 7.5 mg PO QHS #30 tablet 09/19/20 01/06/22 12/26/20 Rx hydrOXYzine PAMOATE [Vistaril] 25 mg PO BID PRN #60 capsule 09/19/20 01/06/22 03/24/21 Rx Celecoxib [celeBREX] 200 mg PO DAILY #60 cap 02/04/21 01/06/22 01/04/22 Rx Multivit-Min36/Iron/Folic Acid 1 each PO QDAY 03/27/21 01/06/22 01/04/22 History [Geritol Complete Tablet] Albuterol Sulfate [Proventil Hfa] 2 puff IH Q4H PRN 30 Days #3 each 08/09/21 01/06/22 Unknown Rx Aspirin EC [Halfprin EC] 81 mg PO QDAY 30 Days #30 tablet 08/09/21 01/06/22 01/04/22 Rx AtorvaSTATin [Lipitor] 40 mg PO QHS 30 Days #30 tablet 08/09/21 01/06/22 01/04/22 Rx Budesonide/Formoterol Fumarate 10.2 gm IH BID 30 Days #3 each 08/09/21 01/06/22 Unknown Rx [Symbicort 160-4.5 Mcg Inhaler] Bumetanide [Bumex 1 mg tab] 1 mg PO QDAY 30 Days #30 tablet 08/09/21 01/06/22 01/04/22 Rx Famotidine [Acid-Pep] 20 mg PO DAILY 90 Days #90 tablet 08/09/21 01/06/22 01/04/22 Rx ISOSORBIDE MONOnitrate [Imdur ER] 60 mg PO QDAY 30 Days #30 tablet 08/09/21 01/06/22 01/04/22 Rx Mometasone Furoate [Asmanex Hfa] 13 gm IH DAILY #90 hfa.aer.ad 08/09/21 01/06/22 Unknown Rx Montelukast [Singulair] 10 mg PO QHS 30 Days #30 tablet 08/09/21 01/06/22 01/04/22 Rx Azithromycin [Zithromax Z-MARCOS] 0 mg PO DAILY #1 pkg 11/11/21 01/06/22 Unknown Rx Citalopram [Celexa] 20 mg PO QDAY 30 Days #30 tab 11/11/21 01/06/22 01/04/22 Rx Clopidogrel [Plavix] 75 mg PO QDAY 30 Days #30 tablet 11/11/21 01/06/22 01/04/22 Rx Furosemide [Lasix TAB] 40 mg PO QDAY #30 tablet 11/11/21 01/06/22 01/04/22 Rx Metoprolol [Lopressor TAB] 50 mg PO BID 30 Days #60 tablet 11/11/21 01/06/22 01/04/22 Rx NIFEdipine XL [Procardia Xl] 30 mg PO QDAY 30 Days #30 tablet 11/11/21 01/06/22 01/04/22 Rx Valsartan [Diovan] 160 mg PO DAILY 30 Days #30 tablet 11/11/21 01/06/22 01/04/22 Rx cloNIDine [Catapres] 0.1 mg PO Q12HR 30 Days #60 tablet 11/11/21 01/06/22 01/04/22 Rx hydrALAZINE [Apresoline TAB] 100 mg PO Q8HR 30 Days #90 tab 11/11/21 01/06/22 01/04/22 Rx oxyCODONE /ACETAMINOPHEN [Percocet 1 tab PO Q6HR PRN #12 tablet 11/11/21 01/06/22 Unknown Rx 5/325] predniSONE 4 tab PO DAILY #30 11/11/21 01/06/22 Unknown Rx Active Meds: Active Medications Acetaminophen (Acetaminophen 325 Mg Tab) 650 mg PO Q4H PRN PRN Reason: Pain MILD(1-3)/Fever >100.5/ALAS Alprazolam (Alprazolam 0.25 Mg Tab) 0.25 mg PO Q8H PRN PRN Reason: Anxiety Last Admin: 01/08/22 11:27 Dose: 0.25 mg Aspirin (Aspirin Ec 81 Mg Tab) 81 mg PO QDAY [facility] Last Admin: 01/08/22 09:13 Dose: 81 mg Atorvastatin Calcium (Atorvastatin 40 Mg Tab) 40 mg PO QHS [facility] Last Admin: 01/07/22 21:52 Dose: 40 mg Bumetanide (Bumetanide 1 Mg/4 Ml Inj) 1 mg IV BID@0600,1800 [facility] Clopidogrel Bisulfate (Clopidogrel 75 Mg Tab) 75 mg PO QDAY [facility] Last Admin: 01/08/22 09:17 Dose: 75 mg Hydralazine HCl (Hydralazine 100 Mg Tab) 100 mg PO Q8HR [facility] Last Admin: 01/08/22 14:10 Dose: Not Given Hydralazine HCl (Hydralazine 20 Mg/1 Ml Inj) 20 mg IV Q4HR PRN PRN Reason: Hypertension Hydromorphone HCl (Hydromorphone 1 Mg/1 Ml Inj) 0.5 mg IV Q6HR PRN PRN Reason: Pain , Severe (7-10) Last Admin: 01/08/22 14:10 Dose: 0.5 mg Isosorbide Mononitrate (Isosorbide Mononitrate Er 60 Mg Tab) 60 mg PO QDAY [facility] Last Admin: 01/08/22 09:13 Dose: 60 mg Metoprolol Tartrate (Metoprolol Tartrate 50 Mg Tab) 50 mg PO BID [facility] Last Admin: 01/08/22 09:12 Dose: 50 mg Montelukast Sodium (Montelukast 10 Mg Tab) 10 mg PO QHS [facility] Last Admin: 01/07/22 21:52 Dose: 10 mg Ondansetron HCl (Ondansetron 4 Mg/2 Ml Inj) 4 mg IV Q8H PRN PRN Reason: Nausea And Vomiting Oxycodone/Acetaminophen (Oxycodone /Acetaminophen 5-325mg Tab) 1 tab PO Q6H PRN PRN Reason: Pain, Moderate (4-6) Last Admin: 01/07/22 02:56 Dose: 1 tab Sodium Chloride (Sodium Chloride 0.9% 10 Ml Flush Syringe) 10 ml IV BID [facility] Last Admin: 01/08/22 09:14 Dose: 10 ml Sodium Chloride (Sodium Chloride 0.9% 10 Ml Flush Syringe) 10 ml IV PRN PRN PRN Reason: LINE FLUSH Valsartan (Valsartan 160mg Tab) 160 mg PO DAILY [facility] Last Admin: 01/08/22 11:29 Dose: Not Given Review of Systems Constitutional: no fever, no chills, no sweats Ears, nose, mouth and throat: no nasal discharge, no sinus pressure, no sinus pain Cardiovascular: orthopnea, shortness of breath, dyspnea on exertion, leg edema, no palpitations Respiratory: shortness of breath, dyspnea on exertion Gastrointestinal: no abdominal pain, no nausea, no vomiting Musculoskeletal: no neck stiffness, no neck pain, no shooting arm pain Integumentary: no rash, no pruritis, no redness Neurological: no head injury, no transient paralysis Psychiatric: no anxiety, no memory loss Endocrine: no cold intolerance, no heat intolerance Hematologic/Lymphatic: no easy bruising, no easy bleeding Physical Examination Vital Signs Temp Pulse Resp BP Pulse Ox 98.0 F 103 H 24 192/151 98 01/06/22 08:03 01/06/22 08:03 01/06/22 08:03 01/06/22 08:03 01/06/22 08:03 General appearance: no acute distress Neck: Positive: trachea midline Cardiac: Positive: Reg Rate and Rhythm Lungs: Positive: Decreased Breath Sounds, Wheezes Neuro: Positive: Grossly Intact Abdomen: Positive: Soft Skin: Negative: Rash, Suspicious Lesions, Ulceration Extremities: Present: upper extr. pulses, edema Results 01/06/22 08:45 01/06/22 08:45 - Imaging and Cardiology Echo: pending, report reviewed EKG interpretations - Telemetry EKG Rhythm: Sinus Tachycardia - EKG Sinus rhythms and dysrhythmias: sinus tachycardia Chamber hypertrophy or enlargement: left atrial enlargement Assessment and Plan This patient is a 61 y/o female with a PMHX of CAD s/p PCI in 2019 on DAPT, DM, HFpEF(EF50-55%), HTN, COPD on home 02, medical noncompliance who presented to ED with a complaint of shortness of breath x 3 to 4 days and hypertensive emergency Hypertensive urgency Acute on chronic HFpEF Acute on chronic hypoxic respiratory failure- Currently on NC COPD- on home O2 HTN CAD s/p PCI 2018 DM Obesity Medical noncompliance Echo 09/15/2020-LVEF is 50 to 55%. LV SF is normal. Moderate LVH. RV SF is normal. Moderate pulmonary hypertension cannot be excluded due to poor regurgitant envelope C 06/20/2018 successful PCI with intravascular ultrasound of the ramus with DIANELYS which was 100% culprit vessel with DIANELYS. Left main patent, LAD patent. RCA mmoderate to severe tortuosity with mid stent patent, circumflex pateent, ARIELA 50% with sintia 100% with successful PCI. Acute diastolic dysfunction Echo 03/25/2021 EF 50 to 55%, moderate concentric left ventricular hypertrophy. Right ventricle mildly dilated, right ventricle hypokinetic. Left atrium moderately dilated right atrium mildly dilated. Mild to moderate tricuspid regurgitation. Moderate pulmonary hypertension. Medications on Previous admissions: Metoprolol 50 mg p.o. twice daily, valsartan 160 mg p.o. twice daily, nifedipine 30 mg p.o. daily, hydralazine 100 mg p.o. 3 times daily, clonidine 0.2 mg p.o. twice daily, Imdur 60 mg p.o. daily Plan: EKG shows sinus tachycardia 101 with left atrial enlargement no acute ischemic changes. Troponin negative x1. Echo pending Patient currently on aspirin, atorvastatin 40 mg p.o. nightly, Bumex 1 mg p.o. daily, clonidine 0.1 mg p.o. twice daily, Plavix, Lasix 40 mg IV daily, hydralazine 100 mg p.o. 3 times daily, Imdur 60 mg p.o. daily, metoprolol 50 mg p.o. twice daily, nifedipine 30 mg p.o. daily, valsartan 160 mg p.o. daily Patient's BPs are soft we will hold clonidine 0.1mg PO BID, nifedipine 30mg QD at this time Continue metoprolol 50mg PO BID, valsartan 160mg PO BID, hydralazine 100mg PO TID, Imdur 60mg QD Continue DAPT BNP noted to be elevated, patient appears hypervolemic on exam with bilateral lower extremity edema Patient is currently on Lasix 40 IV daily and Bumex 1 mg p.o. daily. We will stop both and convert to Bumex 1 mg IV twice daily Strict I& O's, daily weights, and repeat BMP in the a.m. with close monitoring of renal Discussed importance of medication compliance and importance of follow-up appointment with patient. Patient verbalized understanding and acknowledgment Patient seen in conjunction with Dr. Hernandez who agrees with this plan of care. Will continue to follow - Patient Problems (1) Cardiomyopathy Current Visit: No Status: Chronic Qualifiers: Cardiomyopathy type: ischemic Qualified Code(s): I25.5 - Ischemic cardiom yopathy (2) CAD (coronary artery disease) Current Visit: No Status: Chronic Qualifiers: Coronary Disease-Associated Artery/Lesion type: lime artery [place] vs. 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: unspecified group home insulin use status (4) Obesity hypoventilation syndrome Current Visit: No Status: Acute (5) Acute on chronic diastolic heart failure Current Visit: No Status: Acute (6) Morbid obesity Current Visit: No Status: Chronic (7) O2 dependent Current Visit: No Status: Chronic (8) Pulmonary hypertension Current Visit: No Status: Chronic (9) Morbid obesity with body mass index of 40.0-49.9 Current Visit: No Status: Chronic (10) Hypertensive urgency, malignant Current Visit: No Status: Acute (11) Respiratory failure with hypoxia Current Visit: No Status: Chronic Qualifiers: Chronicity: chronic Qualified Code(s): J96.11 - Chronic respiratory failure with hypoxia (12) Noncompliance Current Visit: No Status: Acute (13) Hyperlipidemia Current Visit: No Status: Chronic Qualifiers: Hyperlipidemia type: mixed hyperlipidemia Qualified Code(s): E78.2 - Mixed hyperlipidemia
[2022-01-08] MEDS: BUMETANIDE 1 MG/4 ML INJ IV SCH (18:05)
[2022-01-08] MEDS: MONTELUKAST 10 MG TAB PO SCH (21:21)
[2022-01-09] MEDS: BUMETANIDE 1 MG/4 ML INJ IV SCH ×2 (05:03→17:13)
[2022-01-09] MEDS: hydrALAZINE 100 MG TAB PO SCH ×3 (05:03→21:12)
[2022-01-09] MEDS: HYDROmorphone 1 MG/1 ML INJ IV PRN ×3 (05:17→21:10)
[2022-01-09] MEDS: VALSARTAN 160MG TAB PO SCH (09:00)
[2022-01-09] MEDS: METOPROLOL TARTRATE 50 MG TAB PO SCH ×2 (09:00→21:11)
[2022-01-09 09:29] LABS: BUN/Creatinine Ratio 24; Blood Urea Nitrogen 19 mg/dL (7-17); Calcium 8.7 mg/dL (8.4-10.2); Hemolysis Index 0
--- NOTE | 2022-01-09 11:46 | Progress Note ---
Assessment and Plan This patient is a 61 y/o female with a PMHX of CAD s/p PCI in 2019 on DAPT, DM, HFpEF(EF50-55%), HTN, COPD on home 02, medical noncompliance who presented to ED with a complaint of shortness of breath x 3 to 4 days and hypertensive emergency Hypertensive urgency Acute on chronic HFpEF Acute on chronic hypoxic respiratory failure- Currently on NC COPD- on home O2 HTN CAD s/p PCI 2018 DM Obesity Medical noncompliance Echo 09/15/2020-LVEF is 50 to 55%. LV SF is normal. Moderate LVH. RV SF is nor mal. Moderate pulmonary hypertension cannot be excluded due to poor regurgitant envelope C 06/20/2018 successful PCI with intravascular ultrasound of the ramus with DIANELYS which was 100% culprit vessel with DIANELYS. Left main patent, LAD patent. RCA mmoderate to severe tortuosity with mid stent patent, circumflex pateent, ARIELA 50% with sintia 100% with successful PCI. Acute diastolic dysfunction Echo 03/25/2021 EF 50 to 55%, moderate concentric left ventricular hypertrophy. Right ventricle mildly dilated, right ventricle hypokinetic. Left atrium moder ately dilated right atrium mildly dilated. Mild to moderate tricuspid regurgitation. Moderate pulmonary hypertension. Medications on Previous admissions: Metoprolol 50 mg p.o. twice daily, valsartan 160 mg p.o. twice daily, nifedipine 30 mg p.o. daily, hydralazine 100 mg p.o. 3 times daily, clonidine 0.2 mg p.o. twice daily, Imdur 60 mg p.o. daily Plan: Echo pending Patient's BPs remain controlled will continue to hold clonidine 0.1mg PO BID, nifedipine 30mg QD at this time Continue metoprolol 50mg PO BID, valsartan 160mg PO BID, hydralazine 100mg PO TID, Imdur 60mg QD Continue DAPT with aspirin and Plavix BNP noted to be elevated, patient appears hypervolemic on exam with bilateral lower extremity edema Continue diuresis with Bumex 1 mg IV twice daily Strict I& O's, daily weights, and repeat BMP in the a.m. with close monitoring of renal Discussed importance of medication compliance and importance of follow-up appointment with patient. Patient verbalized understanding and acknowledgment Patient seen in conjunction with Dr. Hernandez who agrees with this plan of care. Will continue to follow - Patient Problems (1) Cardiomyopathy Current Visit: No Status: Chronic Qualifiers: Cardiomyopathy type: ischemic Qualified Code(s): I25.5 - Ischemic cardiomyopathy (2) CAD (coronary artery disease) Current Visit: No Status: Chronic Qualifiers: Coronary Disease-Associated Artery/Lesion type: [place] artery [place] vs. 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 (4) Obesity hypoventilation syndrome Current Visit: No Status: Acute (5) Acute on chronic diastolic heart failure Current Visit: No Status: Acute (6) Morbid obesity Current Visit: No Status: Chronic (7) O2 dependent Current Visit: No Status: Chronic (8) Pulmonary hypertension Current Visit: No Status: Chronic (9) Morbid obesity with body mass index of 40.0-49.9 Current Visit: No Status: Chronic (10) Hypertensive urgency, malignant Current Visit: No Status: Acute (11) Respiratory failure with hypoxia Current Visit: No Status: Chronic Qualifiers: Chronicity: chronic Qualified Code(s): J96.11 - Chronic respiratory failure with hypoxia (12) Noncompliance Current Visit: No Status: Acute (13) Hyperlipidemia Current Visit: No Status: Chronic Qualifiers: Hyperlipidemia type: mixed hyperlipidemia Qualified Code(s): E78.2 - Mixed hyperlipidemia Subjective Date of service: 01/09/22 Principal diagnosis: Hypertensive urgency, acute on chronic HFpEF, Interval history: Patient resting in bed in no acute distress Sinus 60s to 70s on monitor with PACs Objective Vital Signs Temp Pulse Resp BP BP Pulse Ox 01/09/22 10:00 94 01/09/22 08:23 94 01/09/22 08:04 98.1 F 78 18 135/67 84 01/09/22 03:48 98.6 F 68 20 128/63 92 01/08/22 23:22 98.2 F 77 17 146/70 99 01/08/22 23:19 93 01/08/22 22:00 73 01/08/22 21:10 100 01/08/22 19:34 93 08/29/22 19:33 98.8 F 69 19 144/79 85 01/08/22 18:13 130/70 01/08/22 12:40 98.1 F 55 L 16 105/59 85 01/08/22 12:39 54 L 105/59 82 L - Physical Examination General: No Apparent Distress HEENT: Positive: PERRL Neck: Positive: trachea midline Cardiac: Positive: Reg Rate and Rhythm Lungs: Positive: Decreased Breath Sounds Neuro: Positive: Grossly Intact Abdomen: Positive: Soft Skin: Negative: Rash, Suspicious Lesions, Ulceration Extremities: Present: upper extr. pulses, edema - Labs and Meds Comprehensive Metabolic Panel 01/09/22 Range/Units 08:51 Sodium 136 L (137-145) mmol/L Potassium 3.7 (3.6-5.0) mmol/L Chloride 100.0 (98-107) mmol/L Carbon Dioxide 27 (22-30) mmol/L BUN 19 H (7-17) mg/dL Creatinine 0.8 (0.6-1.2) mg/dL Glucose 91 (65-100) mg/dL Calcium 8.7 (8.4-10.2) mg/dL - Imaging and Cardiology Echo: pending, report reviewed - Telemetry EKG Rhythm: Sinus Rhythm - EKG Sinus rhythms and dysrhythmias: sinus tachycardia Chamber hypertrophy or enlargement: left atrial enlargement
[2022-01-09] MEDS: ASPIRIN EC 81 MG TAB PO SCH (11:57)
[2022-01-09] MEDS: CLOPIDOGREL 75 MG TAB PO SCH (11:59)
--- NOTE | 2022-01-09 12:50 | Progress Note ---
Assessment and Plan Assessment and plan: #Acute exacerbation of diastolic CHF #Medical noncompliance -BNP 12k -repeat TTE pending -continue valsartan, metoprolol, imdur at home doses -continue diuresis with IV bumex -Cardiology following, assistance appreciated -Input output monitoring, fluid restriction -patient counseled about importance of medication and follow up compliance #Hypertensive urgency-resolved #Hypertension -controlled, continue medications as above -likely secondary to medication non-compliance at home #Acute on chronic hypoxic respiratory failure -likely due to CHF exacerbation given patient medical non-compliance -patient on 4L NC now, home baseline -Titrate O2 sats to > 90% #COPD, acute exacerbation ruled out -continue inhalers #Hyperlipidemia -continue atorvastatin #Coronary artery disease status post PCI -continue BB, ASA and isosorbide mononitrate #Depression -continue celexa at home dose #Morbid obesity; BMI 53.0 #Weight loss counseling #Exercise counseling -when medically stable also advised to see bariatric surgeon as outpatient for further evaluation - Counseled patient on the importance of weight loss, incorporating exercise, and dietary changes (lean meats, fresh fruits and vegetables, and water intake). Patient expresses understanding. - Time: +15 min #Obesity hypoventilation syndrome -Oxygen, supportive care -home CPAP BiPAP as needed #Advanced care planning -Disease education conducted, care plan discussed, diagnoses discussed, prognosis discussed, and patient acknowledges understanding with care plan -Time: +30 min History Interval history: No acute events overnight. Patient reports improvement in swelling. She has extreme thirst and eats as needed ice chips to alleviate that. We discussed the importance of medication, dietary, and fluid restriction compliance. Patient has not followed up with cardiology in years and reports not having social support at home. We discussed possibility of patient living with her sister which she declined. Hospitalist Physical - Physical exam Narrative exam: GENERAL: Obese. In no acute distress. HEENT: NC in place at 3LPM NECK: Supple. CHEST/LUNGS: CTAB on supplemental O2 HEART/CARDIOVASCULAR: RRR. No murmur, rubs or gallops appreciated. ABDOMEN: +BS. NT/ND. SKIN: Skin shedding diffusely. NEURO: No focal motor deficit. Follows all commands. EXTREMITIES: No cyanosis, clubbing. 1+pitting edema at BLE. PSYCH: Cooperative. - Constitutional Vitals: Temp Pulse Resp BP Pulse Ox 98.5 F 64 20 139/73 100 01/09/22 12:10 01/09/22 12:10 01/09/22 12:10 01/09/22 12:10 01/09/22 12:10 General appearance: Present: mild distress, well-nourished, obese (Morbidly obese) HEART Score - HEART Score EKG: Normal Age: 45-65 Risk factors: > 3 risk factors or hx of atherosclerotic disease Troponin: Troponin T < 0.010 ng/mL (0.00-0.029) 01/06/22 08:45 Results - Labs CBC & Chem 7: 01/06/22 08:45 01/09/22 08:51 Labs: Laboratory Last Values WBC 7.1 K/mm3 (4.5-11.0) 01/06/22 08:45 RBC 5.22 M/mm3 (3.65-5.03) H 01/06/22 08:45 Hgb 10.8 gm/dl (10.1-14.3) 01/06/22 08:45 Hct 35.7 % (30.3-42.9) 01/06/22 08:45 MCV 69 fl (79-97) L 01/06/22 08:45 MCH 21 pg (28-32) L 01/06/22 08:45 MCHC 30 % (30-34) 01/06/22 08:45 RDW 25.2 % (13.2-15.2) H 01/06/22 08:45 Plt Count 265 K/mm3 (140-440) 01/06/22 08:45 Add Manual Diff Complete 01/06/22 08:45 Total Counted 100 01/06/22 08:45 Seg Neuts % (Manual) 85.0 % (40.0-70.0) H 01/06/22 08:45 Band Neutrophils % 0 % 01/06/22 08:45 Lymphocytes % (Manual) 8.0 % (13.4-35.0) L 01/06/22 08:45 Reactive Lymphs % (Man) 0 % 01/06/22 08:45 Monocytes % (Manual) 5.0 % (0.0-7.3) 01/06/22 08:45 Eosinophils % (Manual) 2.0 % (0.0-4.3) 01/06/22 08:45 Basophils % (Manual) 0 % (0.0-1.8) 01/06/22 08:45 Metamyelocytes % 0 % 01/06/22 08:45 Myelocytes % 0 % 01/06/22 08:45 Promyelocytes % 0 % 01/06/22 08:45 Blast Cells % 0 % 01/06/22 08:45 Nucleated RBC % Not Reportable 01/06/22 08:45 Seg Neutrophils # Man 6.0 K/mm3 (1.8-7.7) 01/06/22 08:45 Band Neutrophils # 0.0 K/mm3 01/06/22 08:45 Lymphocytes # (Manual) 0.6 K/mm3 (1.2-5.4) L 01/06/22 08:45 Abs React Lymphs (Man) 0.0 K/mm3 01/06/22 08:45 Monocytes # (Manual) 0.4 K/mm3 (0.0-0.8) 01/06/22 08:45 Eosinophils # (Manual) 0.1 K/mm3 (0.0-0.4) 01/06/22 08:45 Basophils # (Manual) 0.0 K/mm3 (0.0-0.1) 01/06/22 08:45 Metamyelocytes # 0.0 K/mm3 01/06/22 08:45 Myelocytes # 0.0 K/mm3 01/06/22 08:45 Promyelocytes # 0.0 K/mm3 01/06/22 08:45 Blast Cells # 0.0 K/mm3 01/06/22 08:45 WBC Morphology Not Reportable 01/06/22 08:45 Hypersegmented Neuts Not Reportable 01/06/22 08:45 Hyposegmented Neuts Not Reportable 01/06/22 08:45 Hypogranular Neuts Not Reportable 01/06/22 08:45 Smudge Cells Not Reportable 01/06/22 08:45 Toxic Granulation Not Reportable 01/06/22 08:45 Toxic Vacuolation Not Reportable 01/06/22 08:45 Dohle Bodies Not Reportable 01/06/22 08:45 Pelger-Huet Anomaly Not Reportable 01/06/22 08:45 Juan Rods Not Reportable 01/06/22 08:45 Platelet Estimate Consistent w auto 01/06/22 08:45 Clumped Platelets Not Reportable 01/06/22 08:45 Plt Clumps, EDTA Not Reportable 01/06/22 08:45 Large Platelets Not Reportable 01/06/22 08:45 Giant Platelets Not Reportable 01/06/22 08:45 Platelet Satelliting Not Reportable 01/06/22 08:45 Plt Morphology Comment Not Reportable 01/06/22 08:45 RBC Morphology Not Reportable 01/06/22 08:45 Dimorphic RBCs Not Reportable 01/06/22 08:45 Polychromasia Not Reportable 01/06/22 08:45 Hypochromasia 2+ 01/06/22 08:45 Poikilocytosis Not Reportable 01/06/22 08:45 Anisocytosis 2+ 01/06/22 08:45 Microcytosis 2+ 01/06/22 08:45 Macrocytosis Not Reportable 01/06/22 08:45 Spherocytes Not Reportable 01/06/22 08:45 Pappenheimer Bodies Not Reportable 01/06/22 08:45 Sickle Cells Not Reportable 01/06/22 08:45 Target Cells Not Reportable 01/06/22 08:45 Tear Drop Cells Not Reportable 01/06/22 08:45 Ovalocytes Not Reportable 01/06/22 08:45 Helmet Cells Not Reportable 01/06/22 08:45 [place]oz[place] Bodies Not Reportable 01/06/22 08:45 [place] Rings Not Reportable 01/06/22 08:45 Joanna Cells Not Reportable 01/06/22 08:45 Bite Cells Not Reportable 01/06/22 08:45 Crenated Cell Not Reportable 01/06/22 08:45 Elliptocytes Not Reportable 01/06/22 08:45 Acanthocytes (Spur) Not Reportable 01/06/22 08:45 Rouleaux Not Reportable 01/06/22 08:45 Hemoglobin C Crystals Not Reportable 01/06/22 08:45 Schistocytes Not Reportable 01/06/22 08:45 Malaria parasites Not Reportable 01/06/22 08:45 [place]ier Bodies Not Reportable 01/06/22 08:45 Hem Pathologist Commnt No 01/06/22 08:45 Sodium 136 mmol/L (137-145) L 01/09/22 08:51 Potassium 3.7 mmol/L (3.6-5.0) 01/09/22 08:51 Chloride 100.0 mmol/L (98-107) 01/09/22 08:51 Carbon Dioxide 27 mmol/L (22-30) 01/09/22 08:51 Anion Gap 13 mmol/L 01/09/22 08:51 BUN 19 mg/dL (7-17) H 01/09/22 08:51 Creatinine 0.8 mg/dL (0.6-1.2) 01/09/22 08:51 Estimated GFR > 60 ml/min 01/09/22 08:51 BUN/Creatinine Ratio 24 % 01/09/22 08:51 Glucose 91 mg/dL (65-100) 01/09/22 08:51 POC Glucose 131 mg/dL (70-105) H 01/06/22 20:09 Calcium 8.7 mg/dL (8.4-10.2) 01/09/22 08:51 Total Creatine Kinase 69 units/L (30-135) 01/06/22 08:45 CK-MB (CK-2) 3.2 ng/mL (0.0-4.0) 01/06/22 08:45 CK-MB (CK-2) Rel Index 4.6 (0-4) H 01/06/22 08:45 Troponin T < 0.010 ng/mL (0.00-0.029) 01/06/22 08:45 NT-Pro-B Natriuret Pep 37450 pg/mL (0-900) H 01/06/22 08:45 Fabian/IV: Voiding Method External Female Catheter Active Medications - Current Medications Current Medications: Generic Name Dose Route Start Last Admin Trade Name Freq PRN Reason Stop Dose Admin Acetaminophen 650 mg 01/06/22 10:11 Acetaminophen 325 Mg Tab PO Q4H PRN Pain MILD(1-3)/Fever >100.5/ALAS Alprazolam 0.25 mg 01/06/22 12:54 01/08/22 11:27 Alprazolam 0.25 Mg Tab PO 0.25 mg Q8H PRN Administration Anxiety Aspirin 81 mg 01/07/22 10:00 01/09/22 11:57 Aspirin Ec 81 Mg Tab PO 81 mg QDAY ANN MARIE Administration Atorvastatin Calcium 40 mg 01/06/22 22:00 01/08/22 21:21 Atorvastatin 40 Mg Tab PO 40 mg QHS ANN MARIE Administration Bumetanide 1 mg 01/08/22 18:00 01/09/22 05:03 Bumetanide 1 Mg/4 Ml Inj IV 1 mg BID@0600,1800 ANN MARIE Administration Clopidogrel Bisulfate 75 mg 01/07/22 10:00 01/09/22 11:59 Clopidogrel 75 Mg Tab PO 75 mg QDAY ANN MARIE Administration Hydralazine HCl 100 mg 01/06/22 14:00 01/09/22 05:03 Hydralazine 100 Mg Tab PO 100 mg Q8HR ANN MARIE Administration Hydralazine HCl 20 mg 01/06/22 12:46 Hydralazine 20 Mg/1 Ml Inj IV Q4HR PRN Hypertension Hydromorphone HCl 0.5 mg 01/07/22 18:30 01/09/22 05:17 Hydromorphone 1 Mg/1 Ml Inj IV 0.5 mg Q6HR PRN Administration Pain , Severe (7-10) Isosorbide Mononitrate 60 mg 01/07/22 10:00 01/09/22 09:00 Isosorbide Mononitrate Er 60 Mg Tab PO 60 mg QDAY ANN MARIE Administration Metoprolol Tartrate 50 mg 01/06/22 22:00 01/09/22 09:00 Metoprolol Tartrate 50 Mg Tab PO 50 mg BID ANN MARIE Administration Montelukast Sodium 10 mg 01/06/22 22:00 01/08/22 21:21 Montelukast 10 Mg Tab PO 10 mg QHS ANN MARIE Administration Ondansetron HCl 4 mg 01/06/22 10:11 Ondansetron 4 Mg/2 Ml Inj IV Q8H PRN Nausea And Vomiting Oxycodone/Acetaminophen 1 tab 01/06/22 12:54 01/07/22 02:56 Oxycodone /Acetaminophen 5-325mg Tab PO 1 tab Q6H PRN Administration Pain, Moderate (4-6) Sodium Chloride 10 ml 01/06/22 22:00 01/09/22 12:00 Sodium Chloride 0.9% 10 Ml Flush Syringe IV 10 ml BID ANN MARIE Administration Sodium Chloride 10 ml 01/06/22 10:11 Sodium Chloride 0.9% 10 Ml Flush Syringe IV PRN PRN LINE FLUSH Valsartan 160 mg 01/07/22 10:00 01/09/22 09:00 Valsartan 160mg Tab PO 160 mg DAILY ANN MARIE Administration Nutrition/Malnutrition Assess - Dietary Evaluation Nutrition/Malnutrition Findings: Nutrition Notes Start: 01/07/22 11:52 Freq: Status: Active Protocol: Document 01/08/22 11:20 FREDERICK (Rec: 01/08/22 11:36 FREDERICK [id number]) Nutrition Notes Initial or Follow up Assessment Current Diagnosis COPD,Coronary Artery Disease, Diabetes,Hypertension, Respiratory Failure Other Pertinent Diagnosis CHF, DVT/PE, Depression, OHS. Current Diet Cardiac Diet (since D 01/06). Labs/Tests 01/08: WNL. Pertinent Medications 01/08: Nutritionally unremarkable. Height 5 ft 11 in Weight 172.365 kg [place] Body Weight (kg) 70.45 BMI 52.9 Intake Prior to Admission Good Weight change and time frame Pt denies having loss body weight [employer]. No body weight change reported in 1 day. Weight Status Morbidly Obese Subjective/Other Information RD consult for routine F/U on Dietary advancement. Diet continues as prescribed, Pt's PO intake of meals has been Good (75%), according to ADL notes. Pt is on Nasal Cannula, O2 saturation @ 99%, according to Physical Assessment History notes. Pt has missing teeth, according to Physical Assessment History notes. Percent of energy/protein needs met: Prescribed Cardiac Diet provides for energy/protein needs (2,230 Kcal/85 g) during LOS. Burn Absent Trauma Absent GI Symptoms None Food Allergy No Skin Integrity/Comment Assessment WNL. Current % PO Good (75-100%) Minimum of two criteria No Fluid Accumulation N/A Reduced Spout Tender Strength N/A (non-severe) Protein-Calorie Malnutrition N\A #1 Nutrition Diagnosis Overweight/obesity Etiology Possibly secondary to Lifestyle. As Evidenced by Signs and Symptoms BMI: 52.9 Kg/m2. Is patient on ventilator? No Is Patient Ambulatory and/or Out of Bed Yes [facility] [ 3087.214 NUTR.MSJOOB] Kcal/Kg value to use for calculation 12 Approximate Energy Requirements Using 2067 kcal/Kg Calculation Used for Recommendations Kcal/kg Additional Notes Protein: <2.5 g/Kg IBW; <175 g /day. Fluids: 1 ml/Kcal, or as per MD. Nutrition Intervention Change Diet Order: Continue Cardiac Diet as tolerated. Goal #1 Adjust the dietary intervention to better serve Pt's needs and clinical conditions during LOS. Follow-Up By: 01/15/22 Additional Comments Continue monitoring food tolerance, %PO intake of meals , dietary supplements, and BM.
[2022-01-09] MEDS: CITALOPRAM 20 MG TAB PO SCH (17:13)
[2022-01-09] MEDS: MONTELUKAST 10 MG TAB PO SCH (21:11)
[2022-01-10] MEDS: BUMETANIDE 1 MG/4 ML INJ IV SCH ×2 (05:39→18:52)
[2022-01-10] MEDS: hydrALAZINE 100 MG TAB PO SCH ×3 (05:39→21:08)
[2022-01-10 09:09] LABS: Blood Urea Nitrogen 17 mg/dL (7-17); Calcium 8.9 mg/dL (8.4-10.2); Hemolysis Index 0
[2022-01-10 09:10] LABS: BUN/Creatinine Ratio 24
[2022-01-10] MEDS: CLOPIDOGREL 75 MG TAB PO SCH (09:52)
[2022-01-10] MEDS: VALSARTAN 160MG TAB PO SCH (09:52)
[2022-01-10] MEDS: METOPROLOL TARTRATE 50 MG TAB PO SCH ×2 (09:52→21:08)
[2022-01-10] MEDS: oxyCODONE /ACETAMINOPHEN 5-325MG TAB PO PRN (09:55)
[2022-01-10] MEDS: ASPIRIN EC 81 MG TAB PO SCH (09:55)
[2022-01-10] MEDS: CITALOPRAM 20 MG TAB PO SCH (09:56)
[2022-01-10] MEDS: HYDROmorphone 1 MG/1 ML INJ IV PRN (11:34)
--- NOTE | 2022-01-10 12:57 | Progress Note ---
Assessment and Plan Assessment and plan: #Acute exacerbation of diastolic CHF #Medical noncompliance -BNP 12k -repeat TTE: LVEF 50-55% with moderate/severe tricuspid regurgitation -continue valsartan, metoprolol, imdur at home doses -continue diuresis with IV bumex -Cardiology following, assistance appreciated -Input output monitoring, fluid restriction -patient counseled about importance of medication and follow up compliance #Hypertensive urgency-resolved #Hypertension -controlled, continue medications as above -likely secondary to medication non-compliance at home #Acute on chronic hypoxic respiratory failure -likely due to CHF exacerbation given patient medical non-compliance -patient on 4L NC now, home baseline -Titrate O2 sats to > 90% #COPD, acute exacerbation ruled out -continue inhalers #Hyperlipidemia -continue atorvastatin #Coronary artery disease status post PCI -continue BB, ASA and isosorbide mononitrate #Depression -continue celexa at home dose #Morbid obesity; BMI 53.0 #Weight loss counseling #Exercise counseling -when medically stable also advised to see bariatric surgeon as outpatient for further evaluation - Counseled patient on the importance of weight loss, incorporating exercise, and dietary changes (lean meats, fresh fruits and vegetables, and water intake). Patient expresses understanding. - Time: +15 min #Obesity hypoventilation syndrome -Oxygen, supportive care -home CPAP BiPAP as needed #Advanced care planning -Disease education conducted, care plan discussed, diagnoses discussed, prognosis discussed, and patient acknowledges understanding with care plan -Time: +30 min #Discharge planning -PT evaluated the patient and recommends subacute rehab, patient currently agreeable -CM/SW started process of search for SNF -if unable to be placed, patient will be discharged home History Interval history: No acute events overnight. Patient currently feeling down about her home situation with her family. She is agreeable to SNF placement if a facility is willing to accept her. She reports a cough productive of thin sputum and improved swelling of her lower extremities. She has no other acute issues at this time. Hospitalist Physical - Physical exam Narrative exam: GENERAL: Obese. In no acute distress. HEENT: NC in place at 3LPM NECK: Supple. CHEST/LUNGS: CTAB on supplemental O2 HEART/CARDIOVASCULAR: RRR. No murmur, rubs or gallops appreciated. ABDOMEN: +BS. NT/ND. SKIN: Skin shedding diffusely. NEURO: No focal motor deficit. Follows all commands. EXTREMITIES: No cyanosis, clubbing. 1+pitting edema at BLE. PSYCH: Cooperative. - Constitutional Vitals: Temp Pulse Resp BP Pulse Ox 98.0 F 73 18 142/70 100 01/10/22 12:05 01/10/22 12:05 01/10/22 12:05 01/10/22 12:05 01/10/22 12:05 General appearance: Present: mild distress, well-nourished, obese (Morbidly obese) HEART Score - HEART Score EKG: Normal Age: 45-65 Risk factors: > 3 risk factors or hx of atherosclerotic disease Troponin: Troponin T < 0.010 ng/mL (0.00-0.029) 01/06/22 08:45 Results - Labs CBC & Chem 7: 01/06/22 08:45 01/10/22 Unknown Labs: Laboratory Last Values WBC 7.1 K/mm3 (4.5-11.0) 01/06/22 08:45 RBC 5.22 M/mm3 (3.65-5.03) H 01/06/22 08:45 Hgb 10.8 gm/dl (10.1-14.3) 01/06/22 08:45 Hct 35.7 % (30.3-42.9) 01/06/22 08:45 MCV 69 fl (79-97) L 01/06/22 08:45 MCH 21 pg (28-32) L 01/06/22 08:45 MCHC 30 % (30-34) 01/06/22 08:45 RDW 25.2 % (13.2-15.2) H 01/06/22 08:45 Plt Count 265 K/mm3 (140-440) 01/06/22 08:45 Add Manual Diff Complete 01/06/22 08:45 Total Counted 100 01/06/22 08:45 Seg Neuts % (Manual) 85.0 % (40.0-70.0) H 01/06/22 08:45 Band Neutrophils % 0 % 01/06/22 08:45 Lymphocytes % (Manual) 8.0 % (13.4-35.0) L 01/06/22 08:45 Reactive Lymphs % (Man) 0 % 01/06/22 08:45 Monocytes % (Manual) 5.0 % (0.0-7.3) 01/06/22 08:45 Eosinophils % (Manual) 2.0 % (0.0-4.3) 01/06/22 08:45 Basophils % (Manual) 0 % (0.0-1.8) 01/06/22 08:45 Metamyelocytes % 0 % 01/06/22 08:45 Myelocytes % 0 % 01/06/22 08:45 Promyelocytes % 0 % 01/06/22 08:45 Blast Cells % 0 % 01/06/22 08:45 Nucleated RBC % Not Reportable 01/06/22 08:45 Seg Neutrophils # Man 6.0 K/mm3 (1.8-7.7) 01/06/22 08:45 Band Neutrophils # 0.0 K/mm3 01/06/22 08:45 Lymphocytes # (Manual) 0.6 K/mm3 (1.2-5.4) L 01/06/22 08:45 Abs React Lymphs (Man) 0.0 K/mm3 01/06/22 08:45 Monocytes # (Manual) 0.4 K/mm3 (0.0-0.8) 01/06/22 08:45 Eosinophils # (Manual) 0.1 K/mm3 (0.0-0.4) 01/06/22 08:45 Basophils # (Manual) 0.0 K/mm3 (0.0-0.1) 01/06/22 08:45 Metamyelocytes # 0.0 K/mm3 01/06/22 08:45 Myelocytes # 0.0 K/mm3 01/06/22 08:45 Promyelocytes # 0.0 K/mm3 01/06/22 08:45 Blast Cells # 0.0 K/mm3 01/06/22 08:45 WBC Morphology Not Reportable 01/06/22 08:45 Hypersegmented Neuts Not Reportable 01/06/22 08:45 Hyposegmented Neuts Not Reportable 01/06/22 08:45 Hypogranular Neuts Not Reportable 01/06/22 08:45 Smudge Cells Not Reportable 01/06/22 08:45 Toxic Granulation Not Reportable 01/06/22 08:45 Toxic Vacuolation Not Reportable 01/06/22 08:45 Dohle Bodies Not Reportable 01/06/22 08:45 Pelger-Huet Anomaly Not Reportable 01/06/22 08:45 Juan Rods Not Reportable 01/06/22 08:45 Platelet Estimate Consistent w auto 01/06/22 08:45 Clumped Platelets Not Reportable 01/06/22 08:45 Plt Clumps, EDTA Not Reportable 01/06/22 08:45 Large Platelets Not Reportable 01/06/22 08:45 Giant Platelets Not Reportable 01/06/22 08:45 Platelet Satelliting Not Reportable 01/06/22 08:45 Plt Morphology Comment Not Reportable 01/06/22 08:45 RBC Morphology Not Reportable 01/06/22 08:45 Dimorphic RBCs Not Reportable 01/06/22 08:45 Polychromasia Not Reportable 01/06/22 08:45 Hypochromasia 2+ 01/06/22 08:45 Poikilocytosis Not Reportable 01/06/22 08:45 Anisocytosis 2+ 01/06/22 08:45 Microcytosis 2+ 01/06/22 08:45 Macrocytosis Not Reportable 01/06/22 08:45 Spherocytes Not Reportable 01/06/22 08:45 Pappenheimer Bodies Not Reportable 01/06/22 08:45 Sickle Cells Not Reportable 01/06/22 08:45 Target Cells Not Reportable 01/06/22 08:45 Tear Drop Cells Not Reportable 01/06/22 08:45 Ovalocytes Not Reportable 01/06/22 08:45 Helmet Cells Not Reportable 01/06/22 08:45 Lozano-[place] Bodies Not Reportable 01/06/22 08:45 [place] Rings Not Reportable 01/06/22 08:45 [place] Cells Not Reportable 01/06/22 08:45 Bite Cells Not Reportable 01/06/22 08:45 Crenated Cell Not Reportable 01/06/22 08:45 Elliptocytes Not Reportable 01/06/22 08:45 Acanthocytes (Spur) Not Reportable 01/06/22 08:45 Rouleaux Not Reportable 01/06/22 08:45 Hemoglobin C Crystals Not Reportable 01/06/22 08:45 Schistocytes Not Reportable 01/06/22 08:45 Malaria parasites Not Reportable 01/06/22 08:45 [place]ier Bodies Not Reportable 01/06/22 08:45 Hem Pathologist Commnt No 01/06/22 08:45 Sodium 142 mmol/L (137-145) 01/10/22 Unknown Potassium 3.8 mmol/L (3.6-5.0) 01/10/22 Unknown Chloride 101.5 mmol/L (98-107) 01/10/22 Unknown Carbon Dioxide 28 mmol/L (22-30) 01/10/22 Unknown Anion Gap 16 mmol/L 01/10/22 Unknown BUN 17 mg/dL (7-17) 01/10/22 Unknown Creatinine 0.7 mg/dL (0.6-1.2) 01/10/22 Unknown Estimated GFR > 60 ml/min 01/10/22 Unknown BUN/Creatinine Ratio 24 % 01/10/22 Unknown Glucose 84 mg/dL (65-100) 01/10/22 Unknown POC Glucose 131 mg/dL (70-105) H 01/06/22 20:09 Calcium 8.9 mg/dL (8.4-10.2) 01/10/22 Unknown Total Creatine Kinase 69 units/L (30-135) 01/06/22 08:45 CK-MB (CK-2) 3.2 ng/mL (0.0-4.0) 01/06/22 08:45 CK-MB (CK-2) Rel Index 4.6 (0-4) H 01/06/22 08:45 Troponin T < 0.010 ng/mL (0.00-0.029) 01/06/22 08:45 NT-Pro-B Natriuret Pep 35341 pg/mL (0-900) H 01/06/22 08:45 Fabian/IV: Voiding Method External Female Catheter Active Medications - Current Medications Current Medications: Generic Name Dose Route Start Last Admin Trade Name Freq PRN Reason Stop Dose Admin Acetaminophen 650 mg 01/06/22 10:11 Acetaminophen 325 Mg Tab PO Q4H PRN Pain MILD(1-3)/Fever >100.5/ALAS Alprazolam 0.25 mg 01/06/22 12:54 01/08/22 11:27 Alprazolam 0.25 Mg Tab PO 0.25 mg Q8H PRN Administration Anxiety Aspirin 81 mg 01/07/22 10:00 01/10/22 09:55 Aspirin Ec 81 Mg Tab PO 81 mg QDAY ANN MARIE Administration Atorvastatin Calcium 40 mg 01/06/22 22:00 01/09/22 21:11 Atorvastatin 40 Mg Tab PO 40 mg QHS ANN MARIE Administration Bumetanide 1 mg 01/08/22 18:00 01/10/22 05:39 Bumetanide 1 Mg/4 Ml Inj IV 1 mg BID@0600,1800 ANN MARIE Administration Citalopram Hydrobromide 20 mg 01/09/22 16:00 01/10/22 09:56 Citalopram 20 Mg Tab PO 20 mg QDAY ANN MARIE Administration Clopidogrel Bisulfate 75 mg 01/07/22 10:00 01/10/22 09:52 Clopidogrel 75 Mg Tab PO 75 mg QDAY ANN MARIE Administration Hydralazine HCl 100 mg 01/06/22 14:00 01/10/22 05:39 Hydralazine 100 Mg Tab PO 100 mg Q8HR ANN MARIE Administration Hydralazine HCl 20 mg 01/06/22 12:46 Hydralazine 20 Mg/1 Ml Inj IV Q4HR PRN Hypertension Hydromorphone HCl 0.5 mg 01/07/22 18:30 01/10/22 11:34 Hydromorphone 1 Mg/1 Ml Inj IV 0.5 mg Q6HR PRN Administration Pain , Severe (7-10) Isosorbide Mononitrate 60 mg 01/07/22 10:00 01/10/22 09:55 Isosorbide Mononitrate Er 60 Mg Tab PO 60 mg QDAY ANN MARIE Administration Metoprolol Tartrate 50 mg 01/06/22 22:00 01/10/22 09:52 Metoprolol Tartrate 50 Mg Tab PO 50 mg BID ANN MARIE Administration Montelukast Sodium 10 mg 01/06/22 22:00 01/09/22 21:11 Montelukast 10 Mg Tab PO 10 mg QHS ANN MARIE Administration Ondansetron HCl 4 mg 01/06/22 10:11 Ondansetron 4 Mg/2 Ml Inj IV Q8H PRN Nausea And Vomiting Oxycodone/Acetaminophen 1 tab 01/06/22 12:54 01/10/22 09:55 Oxycodone /Acetaminophen 5-325mg Tab PO 1 tab Q6H PRN Administration Pain, Moderate (4-6) Sodium Chloride 10 ml 01/06/22 22:00 01/10/22 10:03 Sodium Chloride 0.9% 10 Ml Flush Syringe IV 10 ml BID ANN MARIE Administration Sodium Chloride 10 ml 01/06/22 10:11 Sodium Chloride 0.9% 10 Ml Flush Syringe IV PRN PRN LINE FLUSH Valsartan 160 mg 01/07/22 10:00 01/10/22 09:52 Valsartan 160mg Tab PO 160 mg DAILY ANN MARIE Administration Nutrition/Malnutrition Assess - Dietary Evaluation Nutrition/Malnutrition Findings: Nutrition Notes Start: 01/07/22 11:52 Freq: Status: Active Protocol: Document 01/08/22 11:20 FREDERICK (Rec: 01/08/22 11:36 FREDERICK [id number]) Nutrition Notes Initial or Follow up Assessment Current Diagnosis COPD,Coronary Artery Disease, Diabetes,Hypertension, Respiratory Failure Other Pertinent Diagnosis CHF, DVT/PE, Depression, OHS. Current Diet Cardiac Diet (since D 01/06). Labs/Tests 01/08: WNL. Pertinent Medications 01/08: Nutritionally unremarkable. Height 5 ft 11 in Weight 172.365 kg [place] Body Weight (kg) 70.45 BMI 52.9 Intake Prior to Admission Good Weight change and time frame Pt denies having loss body weight [employer]. No body weight change reported in 1 day. Weight Status Morbidly Obese Subjective/Other Information RD consult for routine F/U on Dietary advancement. Diet continues as prescribed, Pt's PO intake of meals has been Good (75%), according to ADL notes. Pt is on Nasal Cannula, O2 saturation @ 99%, according to Physical Assessment History notes. Pt has missing teeth, according to Physical Assessment History notes. Percent of energy/protein needs met: Prescribed Cardiac Diet provides for energy/protein needs (2,230 Kcal/85 g) during LOS. Burn Absent Trauma Absent GI Symptoms None Food Allergy No Skin Integrity/Comment Assessment WNL. Current % PO Good (75-100%) Minimum of two criteria No Fluid Accumulation N/A Reduced Marine Steward Strength N/A (non-severe) Protein-Calorie Malnutrition N\A #1 Nutrition Diagnosis Overweight/obesity Etiology Possibly secondary to Lifestyle. As Evidenced by Signs and Symptoms BMI: 52.9 Kg/m2. Is patient on ventilator? No Is Patient Ambulatory and/or Out of Bed Yes REE-([place]-ambulatory/OOB) [ 2617.214 NUTR.MSJOOB] Kcal/Kg value to use for calculation 12 Approximate Energy Requirements Using 2067 kcal/Kg Calculation Used for Recommendations Kcal/kg Additional Notes Protein: <2.5 g/Kg IBW; <175 g /day. Fluids: 1 ml/Kcal, or as per MD. Nutrition Intervention Change Diet Order: Continue Cardiac Diet as tolerated. Goal #1 Adjust the dietary intervention to better serve Pt's needs and clinical conditions during LOS. Follow-Up By: 01/15/22 Additional Comments Continue monitoring food tolerance, %PO intake of meals , dietary supplements, and BM.
--- NOTE | 2022-01-10 14:55 | Progress Note ---
Assessment and Plan This patient is a 61 y/o female with a PMHX of CAD s/p PCI in 2019 on DAPT, DM, HFpEF(EF50-55%), HTN, COPD on home 02, medical noncompliance who presented to ED with a complaint of shortness of breath x 3 to 4 days and hypertensive emergency Hypertensive urgency Acute on chronic HFpEF Acute on chronic hypoxic respiratory failure- Currently on NC COPD- on home O2 HTN CAD s/p PCI 2018 DM Obesity Medical noncompliance Echo 01/08/2022-EF 50-55%. Mild concentric LVH. Right ventricle mildly dilated. Right ventricle systolic function is grossly normal. Extremities dilated. Moderate to severe tricuspid regurgitation. Echo 09/15/2020-LVEF is 50 to 55%. LV SF is normal. Moderate LVH. RV SF is normal. Moderate pulmonary hypertension cannot be excluded due to poor regurgitant envelope C 06/20/2018 successful PCI with intravascular ultrasound of the ramus with DIANELYS which was 100% culprit vessel with DIANELYS. Left main patent, LAD patent. RCA mmoderate to severe tortuosity with mid stent patent, circumflex pateent, ARIELA 50% with sintia 100% with successful PCI. Acute diastolic dysfunction Echo 03/25/2021 EF 50 to 55%, moderate concentric left ventricular hypertrophy. Right ventricle mildly dilated, right ventricle hypokinetic. Left atrium moderately dilated right atrium mildly dilated. Mild to moderate tricuspid regurgitation. Moderate pulmonary hypertension. Medications on Previous admissions: Metoprolol 50 mg p.o. twice daily, valsartan 160 mg p.o. twice daily, nifedipine 30 mg p.o. daily, hydralazine 100 mg p.o. 3 times daily, clonidine 0.2 mg p.o. twice daily, Imdur 60 mg p.o. daily Plan: Patient's BPs remain controlled will continue to hold clonidine 0.1mg PO BID, nifedipine 30mg QD at this time Continue metoprolol 50mg PO BID, valsartan 160mg PO BID, hydralazine 100mg PO TID, Imdur 60mg QD Continue DAPT with aspirin and Plavix BNP noted to be elevated, patient appears hypervolemic on exam with bilateral lower extremity edema Continue diuresis with Bumex 1 mg IV twice daily Strict I& O's, daily weights, and repeat BMP in the a.m. with close monitoring of renal Discussed importance of medication compliance and importance of follow-up appointment with patient. Patient verbalized understanding and acknowledgment Patient seen in conjunction with Dr. Roberto who agrees with this plan of care. - Patient Problems (1) Cardiomyopathy Current Visit: No Status: Chronic Qualifiers: Cardiomyopathy type: ischemic Qualified Code(s): I25.5 - Ischemic cardiomyopathy (2) CAD (coronary artery disease) Current Visit: No Status: Chronic Qualifiers: Coronary Disease-Associated Artery/Lesion type: [place] artery [place] vs. transplanted heart: [place] heart Associated angina: without angina Qualified Code(s): I25.10 - Atherosclerotic heart disease of [place] coronary artery without angina pectoris (3) T2DM (type 2 diabetes mellitus) Current Visit: No Status: Chronic Qualifiers: Diabetes mellitus prison insulin use: unspecified rn long term care insulin use status (4) Obesity hypoventilation syndrome Current Visit: No Status: Acute (5) Acute on chronic diastolic heart failure Current Visit: No Status: Acute (6) Morbid obesity Current Visit: No Status: Chronic (7) O2 dependent Current Visit: No Status: Chronic (8) Pulmonary hypertension Current Visit: No Status: Chronic (9) Morbid obesity with body mass index of 40.0-49.9 Current Visit: No Status: Chronic (10) Hypertensive urgency, malignant Current Visit: No Status: Acute (11) Respiratory failure with hypoxia Current Visit: No Status: Chronic Qualifiers: Chronicity: chronic Qualified Code(s): J96.11 - Chronic respiratory failure with hypoxia (12) Noncompliance Current Visit: No Status: Acute (13) Hyperlipidemia Current Visit: No Status: Chronic Qualifiers: Hyperlipidemia type: mixed hyperlipidemia Qualified Code(s): E78.2 - Mixed hyperlipidemia Subjective Date of service: 01/10/22 Principal diagnosis: Hypertensive urgency, acute on chronic HFpEF, Interval history: Patient resting in bed in no acute distress Sinus 60s to 70s on monitor with PACs Objective Vital Signs Temp Pulse Resp BP BP Pulse Ox 01/10/22 12:05 98.0 F 73 18 142/70 100 01/10/22 11:34 18 01/10/22 10:55 16 01/10/22 10:00 94 01/10/22 09:55 16 150/74 01/10/22 09:52 80 150/74 01/10/22 08:34 98.9 F 83 18 150/76 94 01/10/22 08:14 78 100 01/10/22 03:58 97 01/10/22 03:57 98.0 F 70 20 133/97 75 L 01/09/22 23:37 98.1 F 72 19 152/93 98 01/09/22 22:03 93 01/09/22 22:00 80 97 01/09/22 19:02 98.8 F 85 18 137/74 100 01/09/22 16:15 98.5 F 76 20 142/78 82 L - Physical Examination General: No Apparent Distress HEENT: Positive: PERRL Neck: Positive: trachea midline Cardiac: Positive: Reg Rate and Rhythm Lungs: Positive: Normal Breath Sounds Neuro: Positive: Grossly Intact Abdomen: Positive: Soft Skin: Negative: Rash, Suspicious Lesions, Ulceration Extremities: Present: upper extr. pulses, edema - Labs and Meds Comprehensive Metabolic Panel 01/10/22 Range/Units Unknown Sodium 142 (137-145) mmol/L Potassium 3.8 (3.6-5.0) mmol/L Chloride 101.5 (98-107) mmol/L Carbon Dioxide 28 (22-30) mmol/L BUN 17 (7-17) mg/dL Creatinine 0.7 (0.6-1.2) mg/dL Glucose 84 (65-100) mg/dL Calcium 8.9 (8.4-10.2) mg/dL - Imaging and Cardiology Echo: report reviewed - Telemetry EKG Rhythm: Sinus Rhythm - EKG Sinus rhythms and dysrhythmias: sinus tachycardia Chamber hypertrophy or enlargement: left atrial enlargement
[2022-01-10] MEDS: MONTELUKAST 10 MG TAB PO SCH (21:08)
[2022-01-11] MEDS: HYDROmorphone 1 MG/1 ML INJ IV PRN ×3 (04:59→22:52)
[2022-01-11] MEDS: hydrALAZINE 100 MG TAB PO SCH ×3 (05:00→22:01)
[2022-01-11] MEDS: BUMETANIDE 1 MG/4 ML INJ IV SCH ×2 (05:00→17:44)
[2022-01-11] MEDS: ASPIRIN EC 81 MG TAB PO SCH (09:09)
[2022-01-11] MEDS: CLOPIDOGREL 75 MG TAB PO SCH (09:10)
[2022-01-11] MEDS: METOPROLOL TARTRATE 50 MG TAB PO SCH ×2 (09:10→22:00)
[2022-01-11] MEDS: VALSARTAN 160MG TAB PO SCH (09:11)
[2022-01-11] MEDS: CITALOPRAM 20 MG TAB PO SCH (09:11)
[2022-01-11 13:47] LABS: BUN/Creatinine Ratio 19; Blood Urea Nitrogen 15 mg/dL (7-17); Calcium 8.8 mg/dL (8.4-10.2); Hemolysis Index 0
--- NOTE | 2022-01-11 15:28 | Progress Note ---
Assessment and Plan This patient is a 61 y/o female with a PMHX of CAD s/p PCI in 2019 on DAPT, DM, HFpEF(EF50-55%), HTN, COPD on home 02, medical noncompliance who presented to ED with a complaint of shortness of breath x 3 to 4 days and hypertensive emergency Hypertensive urgency Acute on chronic HFpEF Acute on chronic hypoxic respiratory failure- Currently on NC COPD- on home O2 HTN CAD s/p PCI 2018 DM Obesity Medical noncompliance Echo 01/08/2022-EF 50-55%. Mild concentric LVH. Right ventricle mildly dilated. Right ventricle systolic function is grossly normal. Extremities dilated. Moderate to severe tricuspid regurgitation. Echo 09/15/2020-LVEF is 50 to 55%. LV SF is normal. Moderate LVH. RV SF is normal. Moderate pulmonary hypertension cannot be excluded due to poor regurgitant envelope C 06/20/2018 successful PCI with intravascular ultrasound of the ramus with DIANELYS which was 100% culprit vessel with DIANELYS. Left main patent, LAD patent. RCA mmoderate to severe tortuosity with mid stent patent, circumflex pateent, ARIELA 50% with sintia 100% with successful PCI. Acute diastolic dysfunction Echo 03/25/2021 EF 50 to 55%, moderate concentric left ventricular hypertrophy. Right ventricle mildly dilated, right ventricle hypokinetic. Left atrium moderately dilated right atrium mildly dilated. Mild to moderate tricuspid regurgitation. Moderate pulmonary hypertension. Medications on Previous admissions: Metoprolol 50 mg p.o. twice daily, valsartan 160 mg p.o. twice daily, nifedipine 30 mg p.o. daily, hydralazine 100 mg p.o. 3 times daily, clonidine 0.2 mg p.o. twice daily, Imdur 60 mg p.o. daily Plan: Patient's BPs remain controlled will continue to hold clonidine 0.1mg PO BID, nifedipine 30mg QD at this time Continue metoprolol 50mg PO BID, valsartan 160mg PO BID, hydralazine 100mg PO TID, Imdur 60mg QD Continue DAPT with aspirin and Plavix BNP noted to be elevated, patient appears hypervolemic on exam with bilateral lower extremity edema I&O's not appear to be documented accurately however patient reports good urine output. Will continue diuresis with Bumex 1 mg IV twice daily Strict I& O's, daily weights, and repeat BMP in the a.m. with close monitoring of renal function Discussed importance of medication compliance and importance of follow-up appointment with patient. Patient verbalized understanding and acknowledgment Patient seen in conjunction with Dr. Roberto who agrees with this plan of care. - Patient Problems (1) Cardiomyopathy Current Visit: No Status: Chronic Qualifiers: Cardiomyopathy type: ischemic Qualified Code(s): I25.5 - Ischemic cardiomyopathy (2) CAD (coronary artery disease) Current Visit: No Status: Chronic Qualifiers: Coronary Disease-Associated Artery/Lesion type: [place] artery [place] vs. transplanted heart: [place] heart Associated angina: without angina Qualified Code(s): I25.10 - Atherosclerotic heart disease of [place] coronary artery without angina pectoris (3) T2DM (type 2 diabetes mellitus) Current Visit: No Status: Chronic Qualifiers: Diabetes mellitus [facility] insulin use: unspecified [facility] insulin use status (4) Obesity hypoventilation syndrome Current Visit: No Status: Acute (5) Acute on chronic diastolic heart failure Current Visit: No Status: Acute (6) Morbid obesity Current Visit: No Status: Chronic (7) O2 dependent Current Visit: No Status: Chronic (8) Pulmonary hypertension Current Visit: No Status: Chronic (9) Morbid obesity with body mass index of 40.0-49.9 Current Visit: No Status: Chronic (10) Hypertensive urgency, malignant Current Visit: No Status: Acute (11) Respiratory failure with hypoxia Current Visit: No Status: Chronic Qualifiers: Chronicity: chronic Qualified Code(s): J96.11 - Chronic respiratory failure with hypoxia (12) Noncompliance Current Visit: No Status: Acute (13) Hyperlipidemia Current Visit: No Status: Chronic Qualifiers: Hyperlipidemia type: mixed hyperlipidemia Qualified Code(s): E78.2 - Mixed hyperlipidemia Subjective Date of service: 01/11/22 Principal diagnosis: Hypertensive urgency, acute on chronic HFpEF, Interval history: Patient resting in bed in no acute distress Sinus 60s to 70s on monitor with PACs Objective Vital Signs Temp Pulse Resp BP BP Pulse Ox 01/11/22 14:58 98.1 F 18 138/75 96 01/11/22 12:44 78 01/11/22 11:00 93 01/11/22 09:11 98.7 F 01/11/22 09:10 69 134/68 01/11/22 03:52 98.1 F 74 18 118/67 98 01/10/22 23:46 98.4 F 70 20 140/72 100 01/10/22 22:00 95 01/10/22 20:28 93 01/10/22 20:00 78 01/10/22 19:24 97.7 F 76 19 138/55 93 01/10/22 16:08 98.0 F 16 139/62 - Physical Examination General: No Apparent Distress HEENT: Positive: PERRL Neck: Positive: trachea midline Cardiac: Positive: Reg Rate and Rhythm Lungs: Positive: Decreased Breath Sounds Neuro: Positive: Grossly Intact Abdomen: Positive: Soft Skin: Negative: Rash, Suspicious Lesions, Ulceration Extremities: Present: upper extr. pulses, edema - Labs and Meds Comprehensive Metabolic Panel 01/11/22 Range/Units 13:17 Sodium 140 (137-145) mmol/L Potassium 3.8 (3.6-5.0) mmol/L Chloride 99.9 (98-107) mmol/L Carbon Dioxide 30 (22-30) mmol/L BUN 15 (7-17) mg/dL Creatinine 0.8 (0.6-1.2) mg/dL Glucose 135 H (65-100) mg/dL Calcium 8.8 (8.4-10.2) mg/dL - Imaging and Cardiology Echo: report reviewed - Telemetry EKG Rhythm: Sinus Rhythm - EKG Sinus rhythms and dysrhythmias: sinus tachycardia Chamber hypertrophy or enlargement: left atrial enlargement
--- NOTE | 2022-01-11 16:18 | Progress Note ---
Assessment and Plan Assessment and plan: #Acute exacerbation of diastolic CHF #Medical noncompliance -BNP 12k -repeat TTE: LVEF 50-55% with moderate/severe tricuspid regurgitation -continue valsartan, metoprolol, imdur at home doses -continue diuresis with IV bumex -Cardiology following, assistance appreciated -Input output monitoring, fluid restriction -patient counseled about importance of medication and follow up compliance #Hypertensive urgency-resolved #Hypertension -controlled, continue medications as above -likely secondary to medication non-compliance at home #Acute on chronic hypoxic respiratory failure -likely due to CHF exacerbation given patient medical non-compliance -patient on 4L NC now, home baseline -Titrate O2 sats to > 90% #COPD, acute exacerbation ruled out -continue inhalers #Hyperlipidemia -continue atorvastatin #Coronary artery disease status post PCI -continue BB, ASA and isosorbide mononitrate #Depression -continue celexa at home dose #Morbid obesity; BMI 53.0 #Weight loss counseling #Exercise counseling -when medically stable also advised to see bariatric surgeon as outpatient for further evaluation - Counseled patient on the importance of weight loss, incorporating exercise, and dietary changes (lean meats, fresh fruits and vegetables, and water intake). Patient expresses understanding. - Time: +15 min #Obesity hypoventilation syndrome -Oxygen, supportive care -home CPAP BiPAP as needed #Advanced care planning -Disease education conducted, care plan discussed, diagnoses discussed, prognosis discussed, and patient acknowledges understanding with care plan -Time: +30 min #Discharge planning -PT evaluated the patient and recommends subacute rehab, patient currently agreeable -Anticipate patient will be discharged tomorrow History Interval history: No acute events overnight. Patient chose to go home with home health services per social work. She reports being undecided. She was updated about current care plan and her anticipated discharge home tomorrow. She was counseled on importance of medication compliance and follow-up with her outpatient organizational effectiveness director to prevent recurrent hospitalizations. Patient was understanding. Hospitalist Physical - Physical exam Narrative exam: GENERAL: Obese. In no acute distress. HEENT: NC in place at 3LPM NECK: Supple. CHEST/LUNGS: CTAB on supplemental O2 HEART/CARDIOVASCULAR: RRR. No murmur, rubs or gallops appreciated. ABDOMEN: +BS. NT/ND. NEURO: No focal motor deficit. Follows all commands. EXTREMITIES: No cyanosis, clubbing. 1+pitting edema at BLE. PSYCH: Cooperative. - Constitutional Vitals: Temp Pulse Resp BP Pulse Ox 98.1 F 78 18 138/75 96 01/11/22 14:58 01/11/22 12:44 01/11/22 14:58 01/11/22 14:58 01/11/22 14:58 General appearance: Present: mild distress, well-nourished, obese (Morbidly obese) HEART Score - HEART Score EKG: Normal Age: 45-65 Risk factors: > 3 risk factors or hx of atherosclerotic disease Troponin: Troponin T < 0.010 ng/mL (0.00-0.029) 01/06/22 08:45 Results - Labs CBC & Chem 7: 01/06/22 08:45 01/11/22 13:17 Labs: Laboratory Last Values WBC 7.1 K/mm3 (4.5-11.0) 01/06/22 08:45 RBC 5.22 M/mm3 (3.65-5.03) H 01/06/22 08:45 Hgb 10.8 gm/dl (10.1-14.3) 01/06/22 08:45 Hct 35.7 % (30.3-42.9) 01/06/22 08:45 MCV 69 fl (79-97) L 01/06/22 08:45 MCH 21 pg (28-32) L 01/06/22 08:45 MCHC 30 % (30-34) 01/06/22 08:45 RDW 25.2 % (13.2-15.2) H 01/06/22 08:45 Plt Count 265 K/mm3 (140-440) 01/06/22 08:45 Add Manual Diff Complete 01/06/22 08:45 Total Counted 100 01/06/22 08:45 Seg Neuts % (Manual) 85.0 % (40.0-70.0) H 01/06/22 08:45 Band Neutrophils % 0 % 01/06/22 08:45 Lymphocytes % (Manual) 8.0 % (13.4-35.0) L 01/06/22 08:45 Reactive Lymphs % (Man) 0 % 01/06/22 08:45 Monocytes % (Manual) 5.0 % (0.0-7.3) 01/06/22 08:45 Eosinophils % (Manual) 2.0 % (0.0-4.3) 01/06/22 08:45 Basophils % (Manual) 0 % (0.0-1.8) 01/06/22 08:45 Metamyelocytes % 0 % 01/06/22 08:45 Myelocytes % 0 % 01/06/22 08:45 Promyelocytes % 0 % 01/06/22 08:45 Blast Cells % 0 % 01/06/22 08:45 Nucleated RBC % Not Reportable 01/06/22 08:45 Seg Neutrophils # Man 6.0 K/mm3 (1.8-7.7) 01/06/22 08:45 Band Neutrophils # 0.0 K/mm3 01/06/22 08:45 Lymphocytes # (Manual) 0.6 K/mm3 (1.2-5.4) L 01/06/22 08:45 Abs React Lymphs (Man) 0.0 K/mm3 01/06/22 08:45 Monocytes # (Manual) 0.4 K/mm3 (0.0-0.8) 01/06/22 08:45 Eosinophils # (Manual) 0.1 K/mm3 (0.0-0.4) 01/06/22 08:45 Basophils # (Manual) 0.0 K/mm3 (0.0-0.1) 01/06/22 08:45 Metamyelocytes # 0.0 K/mm3 01/06/22 08:45 Myelocytes # 0.0 K/mm3 01/06/22 08:45 Promyelocytes # 0.0 K/mm3 01/06/22 08:45 Blast Cells # 0.0 K/mm3 01/06/22 08:45 WBC Morphology Not Reportable 01/06/22 08:45 Hypersegmented Neuts Not Reportable 01/06/22 08:45 Hyposegmented Neuts Not Reportable 01/06/22 08:45 Hypogranular Neuts Not Reportable 01/06/22 08:45 Smudge Cells Not Reportable 01/06/22 08:45 Toxic Granulation Not Reportable 01/06/22 08:45 Toxic Vacuolation Not Reportable 01/06/22 08:45 Dohle Bodies Not Reportable 01/06/22 08:45 Pelger-Huet Anomaly Not Reportable 01/06/22 08:45 Juan Rods Not Reportable 01/06/22 08:45 Platelet Estimate Consistent w auto 01/06/22 08:45 Clumped Platelets Not Reportable 01/06/22 08:45 Plt Clumps, EDTA Not Reportable 01/06/22 08:45 Large Platelets Not Reportable 01/06/22 08:45 Giant Platelets Not Reportable 01/06/22 08:45 Platelet Satelliting Not Reportable 01/06/22 08:45 Plt Morphology Comment Not Reportable 01/06/22 08:45 RBC Morphology Not Reportable 01/06/22 08:45 Dimorphic RBCs Not Reportable 01/06/22 08:45 Polychromasia Not Reportable 01/06/22 08:45 Hypochromasia 2+ 01/06/22 08:45 Poikilocytosis Not Reportable 01/06/22 08:45 Anisocytosis 2+ 01/06/22 08:45 Microcytosis 2+ 01/06/22 08:45 Macrocytosis Not Reportable 01/06/22 08:45 Spherocytes Not Reportable 01/06/22 08:45 Pappenheimer Bodies Not Reportable 01/06/22 08:45 Sickle Cells Not Reportable 01/06/22 08:45 Target Cells Not Reportable 01/06/22 08:45 Tear Drop Cells Not Reportable 01/06/22 08:45 Ovalocytes Not Reportable 01/06/22 08:45 Helmet Cells Not Reportable 01/06/22 08:45 [place] Bodies Not Reportable 01/06/22 08:45 [place] Rings Not Reportable 01/06/22 08:45 Joanna Cells Not Reportable 01/06/22 08:45 Bite Cells Not Reportable 01/06/22 08:45 Crenated Cell Not Reportable 01/06/22 08:45 Elliptocytes Not Reportable 01/06/22 08:45 Acanthocytes (Spur) Not Reportable 01/06/22 08:45 Rouleaux Not Reportable 01/06/22 08:45 Hemoglobin C Crystals Not Reportable 01/06/22 08:45 Schistocytes Not Reportable 01/06/22 08:45 Malaria parasites Not Reportable 01/06/22 08:45 Didier Bodies Not Reportable 01/06/22 08:45 Hem Pathologist Commnt No 01/06/22 08:45 Sodium 140 mmol/L (137-145) 01/11/22 13:17 Potassium 3.8 mmol/L (3.6-5.0) 01/11/22 13:17 Chloride 99.9 mmol/L (98-107) 01/11/22 13:17 Carbon Dioxide 30 mmol/L (22-30) 01/11/22 13:17 Anion Gap 14 mmol/L 01/11/22 13:17 BUN 15 mg/dL (7-17) 01/11/22 13:17 Creatinine 0.8 mg/dL (0.6-1.2) 01/11/22 13:17 Estimated GFR > 60 ml/min 01/11/22 13:17 BUN/Creatinine Ratio 19 % 01/11/22 13:17 Glucose 135 mg/dL (65-100) H 01/11/22 13:17 POC Glucose 131 mg/dL (70-105) H 01/06/22 20:09 Calcium 8.8 mg/dL (8.4-10.2) 01/11/22 13:17 Total Creatine Kinase 69 units/L (30-135) 01/06/22 08:45 CK-MB (CK-2) 3.2 ng/mL (0.0-4.0) 01/06/22 08:45 CK-MB (CK-2) Rel Index 4.6 (0-4) H 01/06/22 08:45 Troponin T < 0.010 ng/mL (0.00-0.029) 01/06/22 08:45 NT-Pro-B Natriuret Pep 57353 pg/mL (0-900) H 01/06/22 08:45 Fabian/IV: Voiding Method External Female Catheter Active Medications - Current Medications Current Medications: Generic Name Dose Route Start Last Admin Trade Name Freq PRN Reason Stop Dose Admin Acetaminophen 650 mg 01/06/22 10:11 Acetaminophen 325 Mg Tab PO Q4H PRN Pain MILD(1-3)/Fever >100.5/ALAS Alprazolam 0.25 mg 01/06/22 12:54 01/08/22 11:27 Alprazolam 0.25 Mg Tab PO 0.25 mg Q8H PRN Administration Anxiety Aspirin 81 mg 01/07/22 10:00 01/11/22 09:09 Aspirin Ec 81 Mg Tab PO 81 mg QDAY ANN MARIE Administration Atorvastatin Calcium 40 mg 01/06/22 22:00 01/10/22 21:08 Atorvastatin 40 Mg Tab PO 40 mg QHS ANN MARIE Administration Bumetanide 1 mg 01/08/22 18:00 01/11/22 05:00 Bumetanide 1 Mg/4 Ml Inj IV 1 mg BID@0600,1800 ANN MARIE Administration Citalopram Hydrobromide 20 mg 01/09/22 16:00 01/11/22 09:11 Citalopram 20 Mg Tab PO 20 mg QDAY ANN MARIE Administration Clopidogrel Bisulfate 75 mg 01/07/22 10:00 01/11/22 09:10 Clopidogrel 75 Mg Tab PO 75 mg QDAY ANN MARIE Administration Hydralazine HCl 100 mg 01/06/22 14:00 01/11/22 15:06 Hydralazine 100 Mg Tab PO 100 mg Q8HR ANN MARIE Administration Hydralazine HCl 20 mg 01/06/22 12:46 Hydralazine 20 Mg/1 Ml Inj IV Q4HR PRN Hypertension Hydromorphone HCl 0.5 mg 01/07/22 18:30 01/11/22 04:59 Hydromorphone 1 Mg/1 Ml Inj IV 0.5 mg Q6HR PRN Administration Pain , Severe (7-10) Isosorbide Mononitrate 60 mg 01/07/22 10:00 01/11/22 09:10 Isosorbide Mononitrate Er 60 Mg Tab PO 60 mg QDAY ANN MARIE Administration Metoprolol Tartrate 50 mg 01/06/22 22:00 01/11/22 09:10 Metoprolol Tartrate 50 Mg Tab PO 50 mg BID ANN MARIE Administration Montelukast Sodium 10 mg 01/06/22 22:00 01/10/22 21:08 Montelukast 10 Mg Tab PO 10 mg QHS ANN MARIE Administration Ondansetron HCl 4 mg 01/06/22 10:11 Ondansetron 4 Mg/2 Ml Inj IV Q8H PRN Nausea And Vomiting Oxycodone/Acetaminophen 1 tab 01/06/22 12:54 01/10/22 09:55 Oxycodone /Acetaminophen 5-325mg Tab PO 1 tab Q6H PRN Administration Pain, Moderate (4-6) Sodium Chloride 10 ml 01/06/22 22:00 01/11/22 09:11 Sodium Chloride 0.9% 10 Ml Flush Syringe IV 10 ml BID ANN MARIE Administration Sodium Chloride 10 ml 01/06/22 10:11 Sodium Chloride 0.9% 10 Ml Flush Syringe IV PRN PRN LINE FLUSH Valsartan 160 mg 01/07/22 10:00 01/11/22 09:11 Valsartan 160mg Tab PO 160 mg DAILY ANN MARIE Administration Nutrition/Malnutrition Assess - Dietary Evaluation Nutrition/Malnutrition Findings: Nutrition Notes Start: 01/07/22 11:52 Freq: Status: Active Protocol: Document 01/08/22 11:20 FREDERICK (Rec: 01/08/22 11:36 FREDERICK [id number]) Nutrition Notes Initial or Follow up Assessment Current Diagnosis COPD,Coronary Artery Disease, Diabetes,Hypertension, Respiratory Failure Other Pertinent Diagnosis CHF, DVT/PE, Depression, OHS. Current Diet Cardiac Diet (since D 01/06). Labs/Tests 01/08: WNL. Pertinent Medications 01/08: Nutritionally unremarkable. 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 No body weight change reported in 1 day. Weight Status Morbidly Obese Subjective/Other Information RD consult for routine F/U on Dietary advancement. Diet continues as prescribed, Pt's PO intake of meals has been Good (75%), according to ADL notes. Pt is on Nasal Cannula, O2 saturation @ 99%, according to Physical Assessment History notes. Pt has missing teeth, according to Physical Assessment History notes. Percent of energy/protein needs met: Prescribed Cardiac Diet provides for energy/protein needs (2,230 Kcal/85 g) during LOS. Burn Absent Trauma Absent GI Symptoms None Food Allergy No Skin Integrity/Comment Assessment WNL. 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 As Evidenced by Signs and Symptoms BMI: 52.9 Kg/m2. Is patient on ventilator? No Is Patient Ambulatory and/or Out of Bed Yes REE-([place]-St. Jeor-ambulatory/OOB) [ 3087.214 [id number]] Kcal/Kg value to use for calculation 12 Approximate Energy Requirements Using 2067 kcal/Kg Calculation Used for Recommendations Kcal/kg Additional Notes Protein: <2.5 g/Kg IBW; <175 g /day. Fluids: 1 ml/Kcal, or as per MD. Nutrition Intervention Change Diet Order: Continue Cardiac Diet as tolerated. Goal #1 Adjust the dietary intervention to better serve Pt's needs and clinical conditions during LOS. Follow-Up By: 01/15/22 Additional Comments Continue monitoring food tolerance, %PO intake of meals , dietary supplements, and BM.
[2022-01-11] MEDS: MONTELUKAST 10 MG TAB PO SCH (22:00)
[2022-01-12] MEDS: hydrALAZINE 100 MG TAB PO SCH ×3 (06:23→21:46)
[2022-01-12] MEDS: BUMETANIDE 1 MG/4 ML INJ IV SCH ×2 (06:24→17:00)
[2022-01-12] MEDS: HYDROmorphone 1 MG/1 ML INJ IV PRN ×3 (06:26→19:27)
--- NOTE | 2022-01-12 08:48 | Discharge Summary ---
Providers - Providers Date of Admission: 01/08/22 14:58 Date of discharge: 01/12/22 Attending physician: DENISE ROUSE MD 01/08/22 14:24 Consult to Physician [CONS] Routine Comment: Consulting Provider: MAGGI ROBERTS Physician Instructions: Reason For Exam: Acute on chronic diastolic congestive heart failur 01/09/22 13:44 Physical Therapy Evaluation and Treat [CONS] Routine Comment: PT eval and treat Reason For Exam: debility 01/09/22 15:35 Occupational Therapy Evaluate and Treat [CONS] Routine Comment: OT eval and treat. Reason For Exam: debility Primary care physician: MICHAEL BARON Hospitalization Reason for admission: respiratory failure, CHF exacerbation Condition: Fair Hospital course: Patient is a 61-year-old female with history of CHF, hypertension, COPD and chronic respiratory failure on 4 L oxygen at home who presented with progressive shortness of breath and lower extremity edema. She was admitted for acute heart failure exacerbation as well as acute on chronic respiratory failure. Cardiology was consulted. She was started on home blood pressure medications and diuresed. Once patient clinically improved she was discharged home. Disposition: 01 HOME / SELF CARE / HOMELESS Final Discharge Diagnosis (Prints w/discharge instructions): Acute on chronic diastolic heart failure. Medication noncompliance. Hypertensive urgency. Hypertension. Acute on chronic hypoxic respiratory failure. COPD acute exacerbation ruled out. Hyperlipidemia. Coronary artery disease status post PCI. Depression. Morbid obesity. Obesity hypoventilation syndrome Time spent for discharge: 40 minutes Core Measure Documentation - Palliative Care Palliative Care/ Comfort Measures: Not Applicable - Core Measures Any of the following diagnoses?: heart failure - Heart Failure Discharge Requirements LETTY/ARB for LVSD if EF <40%: Yes Beta vamsi at discharge: Yes Exam - Physical Exam Narrative exam: GENERAL: Obese. In no acute distress. HEENT: NC in place at 3LPM NECK: Supple. CHEST/LUNGS: CTAB on supplemental O2 HEART/CARDIOVASCULAR: RRR. No murmur, rubs or gallops appreciated. ABDOMEN: +BS. NT/ND. NEURO: No focal motor deficit. Follows all commands. EXTREMITIES: No cyanosis, clubbing. 1+pitting edema at BLE. PSYCH: Cooperative. - Constitutional Vitals: Temp Pulse Resp BP Pulse Ox 98.0 F 70 18 158/72 99 01/12/22 04:15 01/12/22 04:15 01/12/22 04:15 01/12/22 04:15 01/12/22 04:15 Plan Care Plan Goals: Please follow with your primary care provider. Also schedule an appointment to see your operating room orderly as soon as possible. Please take all medications as prescribed. If you remain compliant with your medications and follow-up appointments it is very likely that your symptoms and overall quality of life will improve. Follow up with: MICHAEL BARON MD [Primary Care Provider] - 7 Days Prescriptions: AtorvaSTATin [Lipitor] 40 mg PO QHS 30 Days #30 tablet hydrALAZINE [Apresoline TAB] 100 mg PO Q8HR 30 Days #90 tab Bumetanide [Bumex 1 mg tab] 1 mg PO BID 30 Days #60 tablet Valsartan [Diovan] 160 mg PO DAILY 30 Days #30 tablet Aspirin EC [Halfprin EC] 81 mg PO QDAY 30 Days #30 tablet ISOSORBIDE MONOnitrate [Imdur ER] 60 mg PO QDAY 30 Days #30 tablet Metoprolol [Lopressor TAB] 50 mg PO BID 30 Days #60 tablet Clopidogrel [Plavix] 75 mg PO QDAY 30 Days #30 tablet
[2022-01-12] MEDS: ASPIRIN EC 81 MG TAB PO SCH (10:12)
[2022-01-12] MEDS: CLOPIDOGREL 75 MG TAB PO SCH (10:12)
[2022-01-12] MEDS: CITALOPRAM 20 MG TAB PO SCH (10:12)
[2022-01-12] MEDS: METOPROLOL TARTRATE 50 MG TAB PO SCH ×2 (10:12→21:46)
[2022-01-12] MEDS: VALSARTAN 160MG TAB PO SCH (12:00)
--- NOTE | 2022-01-12 12:00 | Progress Note ---
Assessment and Plan This patient is a 61 y/o female with a PMHX of CAD s/p PCI in 2019 on DAPT, DM, HFpEF(EF50-55%), HTN, COPD on home 02, medical noncompliance who presented to ED with a complaint of shortness of breath x 3 to 4 days and hypertensive emergency Hypertensive urgency Acute on chronic HFpEF Acute on chronic hypoxic respiratory failure- Currently on NC COPD- on home O2 HTN CAD s/p PCI 2018 DM Obesity Medical noncompliance Echo 01/08/2022-EF 50-55%. Mild concentric LVH. Right ventricle mildly dilated. Right ventricle systolic function is grossly normal. Extremities dilated. Moderate to severe tricuspid regurgitation. Echo 09/15/2020-LVEF is 50 to 55%. LV SF is normal. Moderate LVH. RV SF is normal. Moderate pulmonary hypertension cannot be excluded due to poor regurgitant envelope C 06/20/2018 successful PCI with intravascular ultrasound of the ramus with DIANELYS which was 100% culprit vessel with DIANELYS. Left main patent, LAD patent. RCA mmoderate to severe tortuosity with mid stent patent, circumflex pateent, ARIELA 50% with sintia 100% with successful PCI. Acute diastolic dysfunction Echo 03/25/2021 EF 50 to 55%, moderate concentric left ventricular hypertrophy. Right ventricle mildly dilated, right ventricle hypokinetic. Left atrium moderately dilated right atrium mildly dilated. Mild to moderate tricuspid regurgitation. Moderate pulmonary hypertension. Medications on Previous admissions: Metoprolol 50 mg p.o. twice daily, valsartan 160 mg p.o. twice daily, nifedipine 30 mg p.o. daily, hydralazine 100 mg p.o. 3 times daily, clonidine 0.2 mg p.o. twice daily, Imdur 60 mg p.o. daily Plan: Patient's BPs remain controlled will continue to hold clonidine 0.1mg PO BID, nifedipine 30mg QD at this time Continue metoprolol 50mg PO BID, valsartan 160mg PO BID, hydralazine 100mg PO TID, Imdur 60mg QD Continue DAPT with aspirin and Plavix Discussed importance of medication compliance, diet compliance, and importance of follow-up appointments with patient. Patient verbalized understanding and acknowledgment Cardiac status appears otherwise stable for discharge Patient should follow-up with Dr. Hernandez, [facility] certified coding specialist, in 1 to 2 weeks after discharge. Phone #[phone] Patient seen in conjunction with Dr. Roberto who agrees with this plan of care. - Patient Problems (1) Cardiomyopathy Current Visit: No Status: Chronic Qualifiers: Cardiomyopathy type: ischemic Qualified Code(s): I25.5 - Ischemic cardiomyopathy (2) CAD (coronary artery disease) Current Visit: No Status: Chronic Qualifiers: Coronary Disease-Associated Artery/Lesion type: [place] artery [place] vs. transplanted heart: [place] heart Associated angina: without angina Qualified Code(s): I25.10 - Atherosclerotic heart disease of [place] coronary artery without angina pectoris (3) T2DM (type 2 diabetes mellitus) Current Visit: No Status: Chronic Qualifiers: Diabetes mellitus fpc insulin use: unspecified fpc insulin use status (4) Obesity hypoventilation syndrome Current Visit: No Status: Acute (5) Acute on chronic diastolic heart failure Current Visit: No Status: Acute (6) Morbid obesity Current Visit: No Status: Chronic (7) O2 dependent Current Visit: No Status: Chronic (8) Pulmonary hypertension Current Visit: No Status: Chronic (9) Morbid obesity with body mass index of 40.0-49.9 Current Visit: No Status: Chronic (10) Hypertensive urgency, malignant Current Visit: No Status: Acute (11) Respiratory failure with hypoxia Current Visit: No Status: Chronic Qualifiers: Chronicity: chronic Qualified Code(s): J96.11 - Chronic respiratory failure with hypoxia (12) Noncompliance Current Visit: No Status: Acute (13) Hyperlipidemia Current Visit: No Status: Chronic Qualifiers: Hyperlipidemia type: mixed hyperlipidemia Qualified Code(s): E78.2 - Mixed hyperlipidemia Subjective Date of service: 01/12/22 Principal diagnosis: Hypertensive urgency, acute on chronic HFpEF, Interval history: Patient resting in bed in no acute distress Sinus 60s to 70s on monitor with PACs Objective Vital Signs Temp Pulse Resp BP BP Pulse Ox 01/12/22 10:32 100 01/12/22 10:12 70 158/72 01/12/22 04:15 98.0 F 70 18 158/72 99 01/12/22 03:53 61 01/12/22 00:38 69 01/11/22 23:46 98.6 F 62 18 141/76 92 01/11/22 23:00 100 01/11/22 22:00 73 165/70 100 01/11/22 20:02 66 01/11/22 19:47 98.6 F 73 18 165/70 100 01/11/22 14:58 98.1 F 18 138/75 96 01/11/22 12:44 78 - Physical Examination General: No Apparent Distress HEENT: Positive: PERRL Neck: Positive: trachea midline Cardiac: Positive: Reg Rate and Rhythm Lungs: Positive: Decreased Breath Sounds Neuro: Positive: Grossly Intact Abdomen: Positive: Soft Skin: Negative: Rash, Suspicious Lesions, Ulceration Extremities: Present: upper extr. pulses, edema - Labs and Meds Comprehensive Metabolic Panel 01/11/22 Range/Units 13:17 Sodium 140 (137-145) mmol/L Potassium 3.8 (3.6-5.0) mmol/L Chloride 99.9 (98-107) mmol/L Carbon Dioxide 30 (22-30) mmol/L BUN 15 (7-17) mg/dL Creatinine 0.8 (0.6-1.2) mg/dL Glucose 135 H (65-100) mg/dL Calcium 8.8 (8.4-10.2) mg/dL - Imaging and Cardiology Echo: report reviewed - Telemetry EKG Rhythm: Sinus Rhythm - EKG Sinus rhythms and dysrhythmias: sinus tachycardia Chamber hypertrophy or enlargement: left atrial enlargement
[2022-01-12] MEDS: MONTELUKAST 10 MG TAB PO SCH (21:47)
[2022-01-13] MEDS: HYDROmorphone 1 MG/1 ML INJ IV PRN ×2 (02:01→09:13)
[2022-01-13] MEDS: BUMETANIDE 1 MG/4 ML INJ IV SCH (06:32)
[2022-01-13] MEDS: hydrALAZINE 100 MG TAB PO SCH (06:32)
[2022-01-13 08:33] VITALS: BP 140/73
[2022-01-13] MEDS: CITALOPRAM 20 MG TAB PO SCH (09:11)
[2022-01-13] MEDS: CLOPIDOGREL 75 MG TAB PO SCH (09:11)
[2022-01-13] MEDS: VALSARTAN 160MG TAB PO SCH (09:12)
[2022-01-13] MEDS: METOPROLOL TARTRATE 50 MG TAB PO SCH (09:12)
[2022-01-13] MEDS: ASPIRIN EC 81 MG TAB PO SCH (09:12)
== END 2022-01-13 12:50 | disposition home health service (06) | DRG 291 ==
LOC: ED 08:02 → 4A 10:11 → OBSVTOIN 01-08 14:58
PROVIDERS: ADMIT Internal Medicine; ATTEND Student in an Organized Health Care Education/Training Program
DX: I11.0 Hypertensive heart disease with heart failure (principal); I50.31 Acute diastolic (congestive) heart failure; J96.21 Acute and chronic respiratory failure with hypoxia; Z68.43 Body mass index [BMI] 50.0-59.9, adult; E66.2 Morbid (severe) obesity with alveolar hypoventilation; I25.2 Old myocardial infarction; E11.9 Type 2 diabetes mellitus without complications; M10.9 Gout, unspecified; I25.10 Atherosclerotic heart disease of native coronary artery without angina pectoris; J44.9 Chronic obstructive pulmonary disease, unspecified; F17.200 Nicotine dependence, unspecified, uncomplicated; Z91.19 Patient's noncompliance with other medical treatment and regimen; F32.A Depression, unspecified; I16.0 Hypertensive urgency; Z71.3 Dietary counseling and surveillance; I42.9 Cardiomyopathy, unspecified; I27.20 Pulmonary hypertension, unspecified; E78.2 Mixed hyperlipidemia; Z90.49 Acquired absence of other specified parts of digestive tract; Z88.0 Allergy status to penicillin; Z90.710 Acquired absence of both cervix and uterus; Z79.82 Long term (current) use of aspirin
CPT/HCPCS: 36415; 71045; 80048; 82550; 82553; 82962; 83880; 84484; 85007; 85025; 93005; 93306; 94760; 96374; 99406; G0378; J3490; C8929; J0360; J1170; J1940; J2405; J3010

== ENCOUNTER 2022-01-28 13:48 | Inpatient (IN) | payer BC ==
[2022-01-28] MEDS ORDERED: ALBUTEROL 2.5 MG/3 ML NEBU IH ONE (15:23)
[2022-01-28] MEDS ORDERED: methylPREDNISolone Sod Succinate 125 MG/2 ML INJ IV ONE (15:23)
[2022-01-28] MEDS ORDERED: IPRATROPIUM 0.02% NEBU 2.5 ML IH ONE (15:23)
[2022-01-28] MEDS ORDERED: FUROSEMIDE 40 MG/4 ML INJ IV ONE (15:23)
[2022-01-28] MEDS ORDERED: HYDROmorphone 1 MG/1 ML INJ IV ONE (15:55)
--- NOTE | 2022-01-28 16:31 | XRay Report ---
CHEST 1 VIEW 01/28/2022 2:56 PM INDICATION / CLINICAL INFORMATION: Dyspnea. COMPARISON: 01/06/2022 FINDINGS: SUPPORT DEVICES: None. HEART / MEDIASTINUM: Enlarged, stable LUNGS / PLEURA: Mildly improving bilateral airspace infiltrates and effusions. No pneumothorax. ADDITIONAL FINDINGS: No significant additional findings. IMPRESSION: 1. CHF exacerbation, less severe when compared to prior. Signer Name: Prashanth Roth MD Signed: 01/28/2022 4:27 PM Workstation Name: [id number]
[2022-01-28 17:08] LABS: Color,Urine Yellow (Yellow)
[2022-01-28] MEDS ORDERED: METOPROLOL TARTRATE 5 MG/5 ML INJ IV ONE ×2 (17:11→19:48)
[2022-01-28 17:16] LABS: Mucus,Urine FEW /HPF
[2022-01-28 17:19] LABS: Amphetamine Screen,Urine PRESUMPTIVE NEGATIVE; Benzodiazepines Screen,Urine PRESUMPTIVE NEGATIVE; Cannabinoid Screen,Urine PRESUMPTIVE NEGATIVE; Cocaine Screen,Urine PRESUMPTIVE NEGATIVE; Methadone Screen,Urine PRESUMPTIVE NEGATIVE; Opiate Screen,Urine PRESUMPTIVE NEGATIVE
[2022-01-28 17:38] LABS: Hematocrit 35.3 % (30.3-42.9); Hemoglobin 10.8 gm/dl (10.1-14.3); Mean Corpuscular HGB Conc 31 % (30-34); Platelet Count 309 K/mm3 (140-440); Red Blood Count 5.13 M/mm3 (3.65-5.03)
[2022-01-28 17:41] LABS: Mean Corpuscular Volume 69 fl (79-97)
[2022-01-28 17:48] LABS: INR 1.09 (0.87-1.13)
[2022-01-28 17:52] LABS: Creatine Kinase MB 2.8 ng/mL (0.0-4.0)
[2022-01-28 17:54] LABS: Alanine Aminotransferase 6 units/L (7-56); Albumin 3.9 g/dL (3.9-5); Blood Urea Nitrogen 11 mg/dL (7-17); Calcium 8.9 mg/dL (8.4-10.2); Hemolysis Index 15
[2022-01-28 17:56] LABS: BUN/Creatinine Ratio 16
[2022-01-28] MEDS ORDERED: hydrALAZINE 20 MG/1 ML INJ IV ONE (18:00)
[2022-01-28 18:15] LABS: Anisocytosis 2+; Basophils % (Manual) 0 % (0.0-1.8); Total Cells Counted 100
[2022-01-28 18:16] LABS: Giant Platelets Few; Hypochromasia 2+; Ovalocytes Few; Platelet Estimate Consistent w Auto; Target Cells Few
[2022-01-28] MEDS ORDERED: niCARdipine DRIP 40 MG/200 ML BAG IV ONE (22:30)
[2022-01-28] MEDS ORDERED: niCARdipine 50 MG in SODIUM CHLORIDE 0.9% 250ML 230 ML IV SCH (23:00)
--- NOTE | 2022-01-28 23:52 | Emergency Department Report ---
ED Shortness of Breath HPI - General Chief Complaint: Dyspnea/Respdistress Stated Complaint: SANDOVAL Time Seen by Provider: 01/28/22 15:20 Source: patient, EMS Mode of arrival: Stretcher Limitations: No Limitations - History of Present Illness Initial Comments: SANDOVAL since last night, pt has hx of COPD and CHF, supposed to be on 5L O2 via NC however was not on any home O2 upon EMS arrival Pt found tachypneic, increased WOB with accessory muscle use, tripod position, 92% O2 sat on RA pt is 61 years old with history of CHF , COPD cardiomyopathy on home o2 , her doctor a year ago and doesn;t have PCP and depends on this hopsital for her folow up and refills, here today for sob started last night getting worse, claims that she has been on the floor and her child care assistant is travelling tomorrow , has b;t been taking he meds Complaint: shortness of breath -: days(s) Consistency: constant Improves With: oxygen, rest Worsens With: exertion Known History Of: COPD, congestive heart failure - Related Data Home Medications Medication Instructions Recorded Confirmed Last Taken Multivit-Min36/Iron/Folic Acid 1 each PO QDAY 03/27/21 01/06/22 01/04/22 [Geritol Complete Tablet] Previous Rx's Medication Instructions Recorded Last Taken Type Mirtazapine 7.5 mg PO QHS #30 tablet 09/19/20 12/26/20 Rx hydrOXYzine PAMOATE [Vistaril] 25 mg PO BID PRN #60 capsule 09/19/20 03/24/21 Rx Celecoxib [celeBREX] 200 mg PO DAILY #60 cap 02/04/21 01/04/22 Rx Albuterol Sulfate [Proventil Hfa] 2 puff IH Q4H PRN 30 Days #3 each 08/09/21 Unknown Rx Budesonide/Formoterol Fumarate 10.2 gm IH BID 30 Days #3 each 08/09/21 Unknown Rx [Symbicort 160-4.5 Mcg Inhaler] Famotidine [Acid-Pep] 20 mg PO DAILY 90 Days #90 tablet 08/09/21 01/04/22 Rx Mometasone Furoate [Asmanex Hfa] 13 gm IH DAILY #90 hfa.aer.ad 08/09/21 Unknown Rx Montelukast [Singulair] 10 mg PO QHS 30 Days #30 tablet 08/09/21 01/04/22 Rx Citalopram [Celexa] 20 mg PO QDAY 30 Days #30 tab 11/11/21 01/04/22 Rx Aspirin EC [Halfprin EC] 81 mg PO QDAY 30 Days #30 tablet 01/11/22 Unknown Rx AtorvaSTATin [Lipitor] 40 mg PO QHS 30 Days #30 tablet 01/11/22 Unknown Rx Bumetanide [Bumex 1 mg tab] 1 mg PO BID 30 Days #60 tablet 01/11/22 Unknown Rx Clopidogrel [Plavix] 75 mg PO QDAY 30 Days #30 tablet 01/11/22 Unknown Rx ISOSORBIDE MONOnitrate [Imdur ER] 60 mg PO QDAY 30 Days #30 tablet 01/11/22 Unknown Rx Metoprolol [Lopressor TAB] 50 mg PO BID 30 Days #60 tablet 01/11/22 Unknown Rx Valsartan [Diovan] 160 mg PO DAILY 30 Days #30 tablet 01/11/22 Unknown Rx hydrALAZINE [Apresoline TAB] 100 mg PO Q8HR 30 Days #90 tab 01/11/22 Unknown Rx Allergies Allergy/AdvReac Type Severity Reaction Status Date / Time Penicillins Allergy Severe GO INTO Verified 01/06/22 10:18 SHOCK, ANAPHYLAXIS ED Review of Systems ROS: Stated complaint: SANDOVAL Other details as noted in HPI Constitutional: denies: chills, fever Eyes: denies: eye pain, eye discharge, vision change ENT: denies: ear pain, throat pain Respiratory: denies: cough, shortness of breath, wheezing Cardiovascular: denies: chest pain, palpitations Endocrine: no symptoms reported Gastrointestinal: denies: abdominal pain, nausea, diarrhea Genitourinary: denies: urgency, dysuria, discharge Musculoskeletal: denies: back pain, joint swelling, arthralgia Skin: denies: rash, lesions Neurological: denies: headache, weakness, paresthesias Psychiatric: denies: anxiety, depression Hematological/Lymphatic: denies: easy bleeding, easy bruising ED Past Medical Hx - Past Medical History Hx Hypertension: Yes Hx Heart Attack/AMI: Yes Hx Congestive Heart Failure: Yes Hx Diabetes: Yes Hx Deep Vein Thrombosis: Yes (left leg) Hx Pulmonary Embolism: Yes Hx Arthritis: Yes (gout) Hx Asthma: No Hx COPD: Yes (4 LPM O2) Hx HIV: No Additional medical history: CAD - Surgical History Hx Coronary Stent: Yes Hx Cholecystectomy: Yes Hx Appendectomy: Yes Additional Surgical History: HYSTERECTOMY. TONSILLECTOMY - Social History Smoking Status: Never Smoker Substance Use Type: None - Medications Home Medications: Home Medications Medication Instructions Recorded Confirmed Last Taken Type Mirtazapine 7.5 mg PO QHS #30 tablet 09/19/20 01/06/22 12/26/20 Rx hydrOXYzine PAMOATE [Vistaril] 25 mg PO BID PRN #60 capsule 09/19/20 01/06/22 03/24/21 Rx Celecoxib [celeBREX] 200 mg PO DAILY #60 cap 02/04/21 01/06/22 01/04/22 Rx Multivit-Min36/Iron/Folic Acid 1 each PO QDAY 03/27/21 01/06/22 01/04/22 History [Geritol Complete Tablet] Albuterol Sulfate [Proventil Hfa] 2 puff IH Q4H PRN 30 Days #3 each 08/09/21 01/06/22 Unknown Rx Budesonide/Formoterol Fumarate 10.2 gm IH BID 30 Days #3 each 08/09/21 01/06/22 Unknown Rx [Symbicort 160-4.5 Mcg Inhaler] Famotidine [Acid-Pep] 20 mg PO DAILY 90 Days #90 tablet 08/09/21 01/06/2201/04 Rx Mometasone Furoate [Asmanex Hfa] 13 gm IH DAILY #90 hfa.aer.ad 08/09/21 01/06/22 Unknown Rx Montelukast [Singulair] 10 mg PO QHS 30 Days #30 tablet 08/09/21 01/06/22 01/04/22 Rx Citalopram [Celexa] 20 mg PO QDAY 30 Days #30 tab 11/11/21 01/06/22 01/04/22 Rx Aspirin EC [Halfprin EC] 81 mg PO QDAY 30 Days #30 tablet 01/11/22 Unknown Rx AtorvaSTATin [Lipitor] 40 mg PO QHS 30 Days #30 tablet 01/11/22 Unknown Rx Bumetanide [Bumex 1 mg tab] 1 mg PO BID 30 Days #60 tablet 01/11/22 Unknown Rx Clopidogrel [Plavix] 75 mg PO QDAY 30 Days #30 tablet 01/11/22 Unknown Rx ISOSORBIDE MONOnitrate [Imdur ER] 60 mg PO QDAY 30 Days #30 tablet 01/11/22 Unknown Rx Metoprolol [Lopressor TAB] 50 mg PO BID 30 Days #60 tablet 01/11/22 Unknown Rx Valsartan [Diovan] 160 mg PO DAILY 30 Days #30 tablet 01/11/22 Unknown Rx hydrALAZINE [Apresoline TAB] 100 mg PO Q8HR 30 Days #90 tab 01/11/22 Unknown Rx ED Physical Exam - General Limitations: No Limitations General appearance: alert - Head Head exam: Present: atraumatic, normocephalic - Eye Eye exam: Present: normal appearance - ENT ENT exam: Present: mucous membranes moist - Neck Neck exam: Present: normal inspection - Respiratory Respiratory exam: Present: rales, decreased breath sounds. Absent: respiratory distress - Cardiovascular Cardiovascular Exam: Present: regular rate, normal rhythm. Absent: systolic murmur, diastolic murmur, rubs, gallop - GI/Abdominal GI/Abdominal exam: Present: soft, normal bowel sounds - Extremities Exam Extremities exam: Present: normal inspection, pedal edema - Neurological Exam Neurological exam: Present: alert, oriented X3 - Psychiatric Psychiatric exam: Present: normal affect, normal mood - Skin Skin exam: Present: warm, dry, intact, normal color. Absent: rash ED Course Vital Signs 01/28/22 01/28/22 01/28/22 14:08 15:26 15:30 Temperature 97.5 F L Pulse Rate 89 83 90 Respiratory 22 16 17 Rate Blood Pressure Blood Pressure 168/144 149/106 [Left] O2 Sat by Pulse 100 100 100 Oximetry 01/28/22 01/28/22 01/28/22 15:46 16:00 16:15 Temperature Pulse Rate 83 84 95 H Respiratory 21 25 H 29 H Rate Blood Pressure 149/106 238/165 241/158 Blood Pressure [Left] O2 Sat by Pulse 100 100 92 Oximetry 01/28/22 01/28/22 01/28/22 16:30 16:46 17:01 Temperature Pulse Rate 93 H 98 H 94 H Respiratory 26 H 22 18 Rate Blood Pressure 241/158 249/150 235/182 Blood Pressure [Left] O2 Sat by Pulse 97 85 93 Oximetry 01/28/22 01/28/22 01/28/22 17:15 17:31 17:45 Temperature Pulse Rate 94 H 86 90 Respiratory 19 15 13 Rate Blood Pressure 247/145 237/143 237/151 Blood Pressure [Left] O2 Sat by Pulse 90 96 98 Oximetry 01/28/22 01/28/22 01/28/22 18:01 18:15 18:31 Temperature Pulse Rate 98 H 96 H 97 H Respiratory 20 18 14 Rate Blood Pressure 244/139 230/137 219/115 Blood Pressure [Left] O2 Sat by Pulse 95 95 97 Oximetry 01/28/22 01/28/22 01/28/22 18:45 19:01 19:15 Temperature Pulse Rate 90 98 H 100 H Respiratory 16 27 H 22 Rate Blood Pressure 222/125 212/119 204/117 Blood Pressure [Left] O2 Sat by Pulse 95 96 95 Oximetry 01/28/22 01/28/22 01/28/22 19:45 19:52 20:01 Temperature 98.7 F Pulse Rate 95 H 92 H 86 Respiratory 20 15 Rate Blood Pressure 206/111 206/111 197/104 Blood Pressure 206/111 [Left] O2 Sat by Pulse 95 92 Oximetry 01/28/22 01/28/22 01/28/22 20:15 20:31 20:45 Temperature Pulse Rate 81 Respiratory 32 H Rate Blood Pressure 203/119 217/116 203/131 Blood Pressure [Left] O2 Sat by Pulse 94 93 95 Oximetry 01/28/22 01/28/22 01/28/22 21:01 21:15 21:31 Temperature Pulse Rate Respiratory Rate Blood Pressure 189/123 184/130 171/135 Blood Pressure [Left] O2 Sat by Pulse 94 96 95 Oximetry 01/28/22 01/28/22 01/28/22 21:45 22:01 22:15 Temperature Pulse Rate Respiratory Rate Blood Pressure 220/158 233/143 231/142 Blood Pressure [Left] O2 Sat by Pulse 96 95 95 Oximetry 01/28/22 01/28/22 01/28/22 22:31 22:45 23:01 Temperature Pulse Rate 84 Respiratory 17 Rate Blood Pressure 237/141 210/130 206/122 Blood Pressure [Left] O2 Sat by Pulse 95 94 93 Oximetry 01/28/22 01/28/22 23:15 23:31 Temperature Pulse Rate 90 80 Respiratory 30 H 13 Rate Blood Pressure 193/98 197/110 Blood Pressure [Left] O2 Sat by Pulse 93 94 Oximetry ED Medical Decision Making - Lab Data Result diagrams: 01/28/22 16:32 01/28/22 16:32 - EKG Data -: EKG Interpreted by Me EKG shows normal: sinus rhythm, intervals (QT interval prolonged ) - Radiology Data Radiology results: report reviewed, image reviewed - Medical Decision Making work up showed : - CHF : lasix given - COPD, : rt given steriods - Hypertnsive : hydralazine and lopressor, started on nicardipine drip Critical care attestation.: If time is entered above; I have spent that time in minutes in the direct care of this critically ill patient, excluding procedure time. ED Disposition Clinical Impression: Acute on chronic systolic (congestive) heart failure, CHF (congestive heart failure), Shortness of breath, Noncompliance, COPD exacerbation, Medical non- compliance, Hypertensive emergency Disposition: ADMITTED INPATIENT Is pt being admited?: Yes Does the pt Need Aspirin: No Condition: Stable Instructions: Chronic Obstructive Pulmonary Disease (ED), Hypertension (ED) Referrals: PRIMARY CARE, [Primary Care Provider] - 3-5 Days
[2022-01-28] MEDS ORDERED: MAGNESIUM HYDROXIDE (MOM) ORAL LIQD UDC PO PRN (23:53)
[2022-01-28] MEDS ORDERED: ONDANSETRON 4 MG/2 ML INJ IV PRN (23:53)
[2022-01-28] MEDS ORDERED: MORPHINE 4 MG/1 ML INJ IV PRN (23:53)
[2022-01-28] MEDS ORDERED: DEXTROSE 50% IN WATER (25GM) 50 ML SYRINGE IV PRN (23:53)
--- NOTE | 2022-01-29 00:02 | History and Physical Report ---
History of Present Illness Date of examination: 01/28/22 Date of admission: 01/28/2022 Chief complaint: Shortness of breath History of present illness: 61-year-old -[place] female with known history of COPD, CHF, coronary artery disease with stent placement in the past, presenting the emergency room today via EMS for evaluation of shortness of breath. Upon arrival of EMS patient was said to be tachypneic and was not on any oxygen. She was tripoding and using accessory muscles of respiration. Initial oxygen saturation was 92% on room air. Patient indicates that she has not followed up with any primary care physician lately and she has not been quite compliant with her medications since primary care physician secondary to COVID. Patient denies any fever or chills, denies any chest pain, no headache or dizziness and no diaphoresis. She indicates that she fell at home and was on the floor for quite some time before getting help to get up from the floor. She denies any head injury, denies any loss of consciousness. Review of patient's records shows: Echo 01/08/2022-EF 50-55%. Mild concentric LVH. Right ventricle mildly dilated. Right ventricle systolic function is grossly normal. Extremities dilated. Moderate to severe tricuspid regurgitation. Echo 09/15/2020-LVEF is 50 to 55%. LV SF is normal. Moderate LVH. RV SF is n ormal. Moderate pulmonary hypertension cannot be excluded due to poor regurgitant envelope [facility] 06/20/2018 successful PCI with intravascular ultrasound of the ramus with DIANELYS which was 100% culprit vessel with DIANELYS. Left main patent, LAD patent. RCA mmoderate to severe tortuosity with mid stent patent, circumflex pateent, ARIELA 50% with sintia 100% with successful PCI. Acute diastolic dysfunction Echo 03/25/2021 EF 50 to 55%, moderate concentric left ventricular hypertrophy. Right ventricle mildly dilated, right ventricle hypokinetic. Left atrium moderately dilated right atrium mildly dilated. Mild to moderate tricuspid regurgitation. Moderate pulmonary hypertension. Upon arrival in the emergency room, blood pressure was quite elevated with systolic in the 200s and diastolic in the low 100s. Patient did not respond well to IV hydralazine and metoprolol and was subsequently placed on Cardene drip. Work-up in the emergency room today reveals elevated BNP of 11,363. Chest x-ray shows CHF exacerbation. Less severe when compared to prior. Patient being admitted for malignant hypertensive urgency and CHF exacerbation. Past History Past Medical History: arthritis, CAD, COPD, diabetes, DVT, hypertension, pulmonary embolism, other (History of gout) Past Surgical History: appendectomy, cholecystectomy, hysterectomy, PTCA, Other (Tonsillectomy) Social history: no significant social history Family history: no significant family history Medications and Allergies Allergies Allergy/AdvReac Type Severity Reaction Status Date / Time Penicillins Allergy Severe GO INTO Verified 01/06/22 10:18 SHOCK, ANAPHYLAXIS Home Medications Medication Instructions Recorded Confirmed Last Taken Type Mirtazapine 7.5 mg PO QHS #30 tablet 09/19/20 01/06/22 12/26/20 Rx hydrOXYzine PAMOATE [Vistaril] 25 mg PO BID PRN #60 capsule 09/19/20 01/06/22 03/24/21 Rx Celecoxib [celeBREX] 200 mg PO DAILY #60 cap 02/04/21 01/06/22 01/04/22 Rx Multivit-Min36/Iron/Folic Acid 1 each PO QDAY 03/27/21 01/06/22 01/04/22 History [Geritol Complete Tablet] Albuterol Sulfate [Proventil Hfa] 2 puff IH Q4H PRN 30 Days #3 each 08/09/21 01/06/22 Unknown Rx Budesonide/Formoterol Fumarate 10.2 gm IH BID 30 Days #3 each 08/09/21 01/06/22 Unknown Rx [Symbicort 160-4.5 Mcg Inhaler] Famotidine [Acid-Pep] 20 mg PO DAILY 90 Days #90 tablet 08/09/21 01/06/22 01/04/22 Rx Mometasone Furoate [Asmanex Hfa] 13 gm IH DAILY #90 hfa.aer.ad 08/09/21 01/06/22 Unknown Rx Montelukast [Singulair] 10 mg PO QHS 30 Days #30 tablet 08/09/21 01/06/22 01/04/22 Rx Citalopram [Celexa] 20 mg PO QDAY 30 Days #30 tab 11/11/21 01/06/22 01/04/22 Rx Aspirin EC [Halfprin EC] 81 mg PO QDAY 30 Days #30 tablet 01/11/22 Unknown Rx AtorvaSTATin [Lipitor] 40 mg PO QHS 30 Days #30 tablet 01/11/22 Unknown Rx Bumetanide [Bumex 1 mg tab] 1 mg PO BID 30 Days #60 tablet 01/11/22 Unknown Rx Clopidogrel [Plavix] 75 mg PO QDAY 30 Days #30 tablet 01/11/22 Unknown Rx ISOSORBIDE MONOnitrate [Imdur ER] 60 mg PO QDAY 30 Days #30 tablet 01/11/22 Unknown Rx Metoprolol [Lopressor TAB] 50 mg PO BID 30 Days #60 tablet 01/11/22 Unknown Rx Valsartan [Diovan] 160 mg PO DAILY 30 Days #30 tablet 01/11/22 Unknown Rx hydrALAZINE [Apresoline TAB] 100 mg PO Q8HR 30 Days #90 tab 01/11/22 Unknown Rx Active Meds: Active Medications Nicardipine/Sodium Chloride (Cardene Drip 40 Mg/200 Ml) 40 mg in 200 mls @ 25 mls/hr IV ONCE ONE; Protocol Stop: 01/29/22 06:29 Last Admin: 01/28/22 22:44 Dose: 5 mg/hr, 25 mls/hr Review of Systems Constitutional: no fever, no chills Ears, nose, mouth and throat: no nasal congestion, no sore throat Cardiovascular: no chest pain, no palpitations Respiratory: cough, shortness of breath Gastrointestinal: no abdominal pain, no nausea, no vomiting, no diarrhea Genitourinary Female: no pelvic pain, no flank pain, no dysuria, no hematuria Musculoskeletal: no neck pain, no low back pain Integumentary: no rash, no pruritis Neurological: no headaches, no confusion Psychiatric: no anxiety, no depression Endocrine: no polyphagia, no polydipsia, no polyuria, no nocturia Exam - Constitutional Vitals: Temp Pulse Resp BP Pulse Ox 98.7 F 80 13 197/110 94 01/28/22 19:45 01/28/22 23:31 01/28/22 23:31 01/28/22 23:31 01/28/22 23:31 General appearance: Present: no acute distress, well-nourished, obese - EENT Eyes: Present: PERRL, EOM intact. Absent: scleral icterus ENT: hearing intact, clear oral mucosa, dentition normal - Neck Neck: Present: supple, normal ROM - Respiratory Respiratory effort: normal Respiratory: bilateral: rales - Cardiovascular Rhythm: regular Heart Sounds: Present: S1 & S2. Absent: gallop, systolic murmur, diastolic murmur, rub, click - Extremities Extremities: no ischemia, pulses intact, pulses symmetrical, normal temperature, normal color, Full ROM Extremity abnormal: edema (2+ bilateral lower extremity edema) Peripheral Pulses: within normal limits - Abdominal General gastrointestinal: Present: soft, non-tender, non-distended, normal bowel sounds. Absent: mass - Integumentary Integumentary: Present: clear, warm, dry, normal turgor. Absent: rash - Musculoskeletal Musculoskeletal: strength equal bilaterally - Psychiatric Psychiatric: appropriate mood/affect, intact judgment & insight, memory intact, cooperative - Neurologic Neurologic: CNII-XII intact, no focal deficits, moves all extremities HEART Score - HEART Score Troponin: Troponin T < 0.010 ng/mL (0.00-0.029) 01/28/22 16:32 Results - Labs CBC & Chem 7: 01/28/22 16:32 01/28/22 16:32 Labs: Abnormal lab results 01/28/22 01/28/22 01/28/22 Range/Units 16:32 16:32 16:32 RBC 5.13 H (3.65-5.03) M/mm3 MCV 69 L (79-97) fl MCH 21 L (28-32) pg RDW 25.0 H (13.2-15.2) % Seg Neuts % (Manual) 88.0 H (40.0-70.0) % Lymphocytes % (Manual) 6.0 L (13.4-35.0) % Lymphocytes # (Manual) 0.3 L (1.2-5.4) K/mm3 PT 15.3 H (12.2-14.9) Sec. ALT 6 L (7-56) units/L Alkaline Phosphatase 221 H (35-129) units/L CK-MB (CK-2) Rel Index (0-4) NT-Pro-B Natriuret Pep (0-900) pg/mL Lipase 12 L (13-60) units/L 01/28/22 01/28/22 Range/Units 16:32 16:32 RBC (3.65-5.03) M/mm3 MCV (79-97) fl MCH (28-32) pg RDW (13.2-15.2) % Seg Neuts % (Manual) (40.0-70.0) % Lymphocytes % (Manual) (13.4-35.0) % Lymphocytes # (Manual) (1.2-5.4) K/mm3 PT (12.2-14.9) Sec. ALT (7-56) units/L Alkaline Phosphatase (35-129) units/L CK-MB (CK-2) Rel Index 8.2 H (0-4) NT-Pro-B Natriuret Pep 57373 H (0-900) pg/mL Lipase (13-60) units/L Assessment and Plan Assessment: 1. CHF exacerbation 2. Hypertensive urgency 3. History of cardiomyopathy 4. History of coronary artery disease with stent placement 5. Diabetes mellitus 6. History of COPD-oxygen dependent 7. Morbid obesity 8. Medication noncompliance. Plan: 1. Patient admitted and placed on diuretics. We will monitor input and output and also monitor daily weight. 2. Patient has been placed on Cardene drip. We will monitor vital signs closely. 3. Patient placed on sliding scale insulin. We will monitor Accu-Cheks. 4. Consult placed to cardiology for further evaluation and recommendations. 5. We will resume routine home medications once reconciled. 6. Patient counseled on compliance with medications. DVT prophylaxis: Subcutaneous heparin CODE STATUS: Full code
[2022-01-29] MEDS ORDERED: niCARdipine 50 MG in SODIUM CHLORIDE 0.9% 250ML 230 ML IV SCH (03:10)
[2022-01-29 05:24] LABS: Blood Urea Nitrogen 13 mg/dL (7-17); Calcium 8.9 mg/dL (8.4-10.2); Hemolysis Index 26
[2022-01-29 05:30] LABS: BUN/Creatinine Ratio 19
[2022-01-29] MEDS: FUROSEMIDE 40 MG/4 ML INJ IV SCH ×2 (06:03→17:27)
[2022-01-29] MEDS: INSULIN LISPRO 100 UNIT/ML SUB-Q SCH ×4 (08:46→22:25)
[2022-01-29] MEDS ORDERED: ALBUTEROL 2.5 MG/3 ML NEBU IH PRN (09:17)
[2022-01-29] MEDS: METOPROLOL TARTRATE 50 MG TAB PO SCH ×2 (10:12→22:25)
[2022-01-29] MEDS: FAMOTIDINE 20 MG TAB PO SCH (10:13)
[2022-01-29] MEDS: CLOPIDOGREL 75 MG TAB PO SCH (10:13)
[2022-01-29] MEDS: MULTIVITAMINS,THER W-MINERALS TAB PO SCH (10:13)
[2022-01-29] MEDS: CITALOPRAM 20 MG TAB PO SCH (10:13)
[2022-01-29] MEDS: ASPIRIN EC 81 MG TAB PO SCH (10:15)
[2022-01-29] MEDS: MORPHINE 2 MG/1 ML INJ IV PRN ×3 (10:29→22:26)
[2022-01-29] MEDS: VALSARTAN 160MG TAB PO SCH ×2 (11:47→22:24)
--- NOTE | 2022-01-29 13:39 | Consultation ---
History of Present Illness Consult date: 01/29/22 Requesting physician: TOYA SWIFT Reason for consult: other (Hypertensive Emergency) History of present illness: PULMONARY/CCM CONSULT NOTE (Full dictation # [id number]) Please see dictated notes for full details Past History Past Medical History: arthritis, CAD, COPD, diabetes, DVT, hypertension, pulmonary embolism, other (History of gout) Past Surgical History: appendectomy, cholecystectomy, hysterectomy, PTCA, Other (Tonsillectomy) Social history: no significant social history Family history: no significant family history Medications and Allergies Allergies Allergy/AdvReac Type Severity Reaction Status Date / Time Penicillins Allergy Severe GO INTO Verified 01/06/22 10:18 SHOCK, ANAPHYLAXIS Home Medications Medication Instructions Recorded Confirmed Last Taken Type Mirtazapine 7.5 mg PO QHS #30 tablet 09/19/20 01/06/22 12/26/20 Rx hydrOXYzine PAMOATE [Vistaril] 25 mg PO BID PRN #60 capsule 09/19/20 01/06/22 03/24/21 Rx Celecoxib [celeBREX] 200 mg PO DAILY #60 cap 02/04/21 01/06/22 01/04/22 Rx Multivit-Min36/Iron/Folic Acid 1 each PO QDAY 03/27/21 01/06/22 01/04/22 History [Geritol Complete Tablet] Albuterol Sulfate [Proventil Hfa] 2 puff IH Q4H PRN 30 Days #3 each 08/09/21 01/06/22 Unknown Rx Budesonide/Formoterol Fumarate 10.2 gm IH BID 30 Days #3 each 08/09/21 01/06/22 Unknown Rx [Symbicort 160-4.5 Mcg Inhaler] Famotidine [Acid-Pep] 20 mg PO DAILY 90 Days #90 tablet 08/09/21 01/06/22 01/04/22 Rx Mometasone Furoate [Asmanex Hfa] 13 gm IH DAILY #90 hfa.aer.ad 08/09/21 01/06/22 Unknown Rx Montelukast [Singulair] 10 mg PO QHS 30 Days #30 tablet 08/09/21 01/06/22 01/04/22 Rx Citalopram [Celexa] 20 mg PO QDAY 30 Days #30 tab 11/11/21 01/06/22 01/04/22 Rx Aspirin EC [Halfprin EC] 81 mg PO QDAY 30 Days #30 tablet 01/11/22 Unknown Rx AtorvaSTATin [Lipitor] 40 mg PO QHS 30 Days #30 tablet 01/11/22 Unknown Rx Bumetanide [Bumex 1 mg tab] 1 mg PO BID 30 Days #60 tablet 01/11/22 Unknown Rx Clopidogrel [Plavix] 75 mg PO QDAY 30 Days #30 tablet 01/11/22 Unknown Rx ISOSORBIDE MONOnitrate [Imdur ER] 60 mg PO QDAY 30 Days #30 tablet 01/11/22 Unknown Rx Metoprolol [Lopressor TAB] 50 mg PO BID 30 Days #60 tablet 01/11/22 Unknown Rx Valsartan [Diovan] 160 mg PO DAILY 30 Days #30 tablet 01/11/22 Unknown Rx hydrALAZINE [Apresoline TAB] 100 mg PO Q8HR 30 Days #90 tab 01/11/22 Unknown Rx Active Meds: Active Medications Acetaminophen (Acetaminophen 325 Mg Tab) 650 mg PO Q4H PRN PRN Reason: Pain MILD(1-3)/Fever >100.5/ALAS Albuterol (Albuterol 2.5 Mg/3 Ml Nebu) 2.5 mg IH Q4HRT PRN PRN Reason: Shortness Of Breath Arformoterol Tartrate (Arformoterol 15 Mcg/2 Ml Nebu) 15 mcg IH Q12HRT [facility] Aspirin (Aspirin Ec 81 Mg Tab) 81 mg PO QDAY [facility] Last Admin: 01/29/22 10:15 Dose: 81 mg Atorvastatin Calcium (Atorvastatin 40 Mg Tab) 40 mg PO QHS [facility] Budesonide (Budesonide 0.5 Mg/2 Ml Nebu) 0.5 mg IH Q12HRT [facility] Citalopram Hydrobromide (Citalopram 20 Mg Tab) 20 mg PO QDAY [facility] Last Admin: 01/29/22 10:13 Dose: 20 mg Clopidogrel Bisulfate (Clopidogrel 75 Mg Tab) 75 mg PO QDAY [facility] Last Admin: 01/29/22 10:13 Dose: 75 mg Dextrose (Dextrose 50% In Water (25gm) 50 Ml Syringe) 0 ml IV Q30MIN PRN; Protocol PRN Reason: Hypoglycemia Famotidine (Famotidine 20 Mg Tab) 20 mg PO DAILY [facility] Last Admin: 01/29/22 10:13 Dose: 20 mg Furosemide (Furosemide 40 Mg/4 Ml Inj) 40 mg IV BID@0600,1800 [facility] Last Admin: 01/29/22 06:03 Dose: 40 mg Hydralazine HCl (Hydralazine 100 Mg Tab) 100 mg PO Q8HR [facility] Hydralazine HCl (Hydralazine 20 Mg/1 Ml Inj) 10 mg IV Q4HR PRN PRN Reason: Hypertension Insulin Human Lispro (Insulin Lispro 100 Unit/Ml) 0 unit SUB-Q ACHS [facility]; Pro tocol Last Admin: 01/29/22 11:46 Dose: 2 unit Isosorbide Mononitrate (Isosorbide Mononitrate Er 60 Mg Tab) 60 mg PO QDAY [facility] Last Admin: 01/29/22 10:13 Dose: 60 mg Magnesium Hydroxide (Magnesium Hydroxide (Mom) Oral Liqd Udc) 30 ml PO Q4H PRN PRN Reason: Constipation Metoprolol Tartrate (Metoprolol Tartrate 50 Mg Tab) 50 mg PO BID [facility] Last Admin: 01/29/22 10:12 Dose: 50 mg Montelukast Sodium (Montelukast 10 Mg Tab) 10 mg PO QHS [facility] Morphine Sulfate (Morphine 2 Mg/1 Ml Inj) 2 mg IV Q4H PRN PRN Reason: Pain, Moderate (4-6) Last Admin: 01/29/22 10:29 Dose: 2 mg Morphine Sulfate (Morphine 4 Mg/1 Ml Inj) 4 mg IV Q4H PRN PRN Reason: Pain , Severe (7-10) Last Admin: 01/29/22 02:32 Dose: 4 mg Multivitamins/Minerals (Multivitamins,Ther W-Minerals Tab) 1 each PO QDAY [facility] Last Admin: 01/29/22 10:13 Dose: 1 each Ondansetron HCl (Ondansetron 4 Mg/2 Ml Inj) 4 mg IV Q8H PRN PRN Reason: Nausea And Vomiting Sodium Chloride (Sodium Chloride 0.9% 10 Ml Flush Syringe) 10 ml IV BID [facility] Last Admin: 01/29/22 10:14 Dose: 10 ml Sodium Chloride (Sodium Chloride 0.9% 10 Ml Flush Syringe) 10 ml IV PRN PRN PRN Reason: LINE FLUSH Valsartan (Valsartan 160mg Tab) 160 mg PO BID ANN MARIE Last Admin: 01/29/22 11:47 Dose: 160 mg Physical Examination Vital signs: Vital Signs Temp Pulse Resp BP Pulse Ox 97.5 F L 89 22 168/144 100 01/28/22 14:08 01/28/22 14:08 01/28/22 14:08 01/28/22 14:08 01/28/22 14:08 Results - Laboratory Findings CBC and BMP: 01/28/22 16:32 01/29/22 04:07 PT/INR, D-dimer PT 15.3 Sec. (12.2-14.9) H 01/28/22 16:32 INR 1.09 (0.87-1.13) 01/28/22 16:32 Abnormal lab findings: Abnormal Labs 01/28/22 01/28/22 01/28/22 16:32 16:32 16:32 RBC 5.13 H MCV 69 L MCH 21 L RDW 25.0 H Seg Neuts % (Manual) 88.0 H Lymphocytes % (Manual) 6.0 L Lymphocytes # (Manual) 0.3 L PT 15.3 H Glucose POC Glucose ALT 6 L Alkaline Phosphatase 221 H CK-MB (CK-2) Rel Index NT-Pro-B Natriuret Pep Lipase 12 L 01/28/22 01/28/22 01/29/22 16:32 16:32 04:07 RBC MCV MCH RDW Seg Neuts % (Manual) Lymphocytes % (Manual) Lymphocytes # (Manual) PT Glucose 210 H POC Glucose ALT Alkaline Phosphatase CK-MB (CK-2) Rel Index 8.2 H NT-Pro-B Natriuret Pep 09656 H Lipase 01/29/22 01/29/22 07:31 11:08 RBC MCV MCH RDW Seg Neuts % (Manual) Lymphocytes % (Manual) Lymphocytes # (Manual) PT Glucose POC Glucose 164 H 162 H ALT Alkaline Phosphatase CK-MB (CK-2) Rel Index NT-Pro-B Natriuret Pep Lipase
[2022-01-29] MEDS: hydrALAZINE 100 MG TAB PO SCH ×2 (13:41→22:24)
[2022-01-29] MEDS ORDERED: hydrALAZINE 100 MG TAB PO SCH (14:00)
[2022-01-29] MEDS ORDERED: hydrALAZINE 25 MG TAB PO SCH (14:00)
--- NOTE | 2022-01-29 15:28 | Consultation ---
History of Present Illness Consult date: 01/29/22 Requesting physician: JENNIFER COLEMAN Consult reason: congestive heart failure History of present illness: Patient is a 61 y/o female with a PMHX of CAD s/p PCI in 2019 on DAPT, DM, HFpEF(EF50-55%), HTN, COPD on home 02, medical noncompliance who presented to ED with a complaint that she fell at home. Patient was recently discharged from hospital on 01/12/2022 due to acute on chronic HFpEF and hypertensive urgency. Patient reports during the same day of her discharge she passed out at home. She reports that prior to coming to hospital she had seen black spot and passed out. Patient states she was lying on the floor for 14 hours. She states her granddaughter called EMS and patient was transported to the ED for further evaluation. Patient reports she is having right lower extremity pain and states was having diarrhea several days prior to coming to ED. Of note per documentation patient reportedly came to the hospital for shortness of breath and was found to be tachypneic tripoding, and found O2 sats of 92% on room air, elevated BNP, and CXR showed CHF exacerbation. At time of interview she reported being compliant with medications however per documentation patient stated she was noncompliant on medications. Patient currently denying chest pain, nausea, vomiting, diaphoresis. Patient is known to our practice and has been seen by our group for numerous admissions. Cardiology is consulted for CHF Past History Past Medical History: arthritis, CAD, COPD, diabetes, DVT, hypertension, pulmonary embolism, other (History of gout) Past Surgical History: appendectomy, cholecystectomy, hysterectomy, PTCA, Other (Tonsillectomy) Social history: no significant social history Family history: no significant family history Medications and Allergies Allergies Allergy/AdvReac Type Severity Reaction Status Date / Time Penicillins Allergy Severe GO INTO Verified 01/06/22 10:18 SHOCK, ANAPHYLAXIS Home Medications Medication Instructions Recorded Confirmed Last Taken Type Mirtazapine 7.5 mg PO QHS #30 tablet 09/19/20 01/06/22 12/26/20 Rx hydrOXYzine PAMOATE [Vistaril] 25 mg PO BID PRN #60 capsule 09/19/20 01/06/22 03/24/21 Rx Celecoxib [celeBREX] 200 mg PO DAILY #60 cap 02/04/21 01/06/22 01/04/22 Rx Multivit-Min36/Iron/Folic Acid 1 each PO QDAY 03/27/21 01/06/22 01/04/22 History [Geritol Complete Tablet] Albuterol Sulfate [Proventil Hfa] 2 puff IH Q4H PRN 30 Days #3 each 08/09/21 01/06/22 Unknown Rx Budesonide/Formoterol Fumarate 10.2 gm IH BID 30 Days #3 each 08/09/21 01/06/22 Unknown Rx [Symbicort 160-4.5 Mcg Inhaler] Famotidine [Acid-Pep] 20 mg PO DAILY 90 Days #90 tablet 08/09/21 01/06/22 01/04/22 Rx Mometasone Furoate [Asmanex Hfa] 13 gm IH DAILY #90 hfa.aer.ad 08/09/21 01/06/22 Unknown Rx Montelukast [Singulair] 10 mg PO QHS 30 Days #30 tablet 08/09/21 01/06/22 01/04/22 Rx Citalopram [Celexa] 20 mg PO QDAY 30 Days #30 tab 11/11/21 01/06/22 01/04/22 Rx Aspirin EC [Halfprin EC] 81 mg PO QDAY 30 Days #30 tablet 01/11/22 Unknown Rx AtorvaSTATin [Lipitor] 40 mg PO QHS 30 Days #30 tablet 01/11/22 Unknown Rx Bumetanide [Bumex 1 mg tab] 1 mg PO BID 30 Days #60 tablet 01/11/22 Unknown Rx Clopidogrel [Plavix] 75 mg PO QDAY 30 Days #30 tablet 01/11/22 Unknown Rx ISOSORBIDE MONOnitrate [Imdur ER] 60 mg PO QDAY 30 Days #30 tablet 01/11/22 Unknown Rx Metoprolol [Lopressor TAB] 50 mg PO BID 30 Days #60 tablet 01/11/22 Unknown Rx Valsartan [Diovan] 160 mg PO DAILY 30 Days #30 tablet 01/11/22 Unknown Rx hydrALAZINE [Apresoline TAB] 100 mg PO Q8HR 30 Days #90 tab 01/11/22 Unknown Rx Active Meds: Active Medications Acetaminophen (Acetaminophen 325 Mg Tab) 650 mg PO Q4H PRN PRN Reason: Pain MILD(1-3)/Fever >100.5/ALAS Albuterol (Albuterol 2.5 Mg/3 Ml Nebu) 2.5 mg IH Q4HRT PRN PRN Reason: Shortness Of Breath Arformoterol Tartrate (Arformoterol 15 Mcg/2 Ml Nebu) 15 mcg IH Q12HRT [facility] Aspirin (Aspirin Ec 81 Mg Tab) 81 mg PO QDAY [facility] Last Admin: 01/29/22 10:15 Dose: 81 mg Atorvastatin Calcium (Atorvastatin 40 Mg Tab) 40 mg PO QHS [facility] Budesonide (Budesonide 0.5 Mg/2 Ml Nebu) 0.5 mg IH Q12HRT [facility] Citalopram Hydrobromide (Citalopram 20 Mg Tab) 20 mg PO QDAY [facility] Last Admin: 01/29/22 10:13 Dose: 20 mg Clopidogrel Bisulfate (Clopidogrel 75 Mg Tab) 75 mg PO QDAY [facility] Last Admin: 01/29/22 10:13 Dose: 75 mg Dextrose (Dextrose 50% In Water (25gm) 50 Ml Syringe) 0 ml IV Q30MIN PRN; Protocol PRN Reason: Hypoglycemia Famotidine (Famotidine 20 Mg Tab) 20 mg PO DAILY [facility] Last Admin: 01/29/22 10:13 Dose: 20 mg Furosemide (Furosemide 40 Mg/4 Ml Inj) 40 mg IV BID@0600,1800 [facility] Last Admin: 01/29/22 06:03 Dose: 40 mg Hydralazine HCl (Hydralazine 100 Mg Tab) 100 mg PO Q8HR [facility] Last Admin: 01/29/22 13:41 Dose: 100 mg Hydralazine HCl (Hydralazine 20 Mg/1 Ml Inj) 10 mg IV Q4HR PRN PRN Reason: Hypertension Insulin Human Lispro (Insulin Lispro 100 Unit/Ml) 0 unit SUB-Q [facility]; Protocol Last Admin: 01/29/22 11:46 Dose: 2 unit Isosorbide Mononitrate (Isosorbide Mononitrate Er 60 Mg Tab) 60 mg PO QDAY [facility] Last Admin: 01/29/22 10:13 Dose: 60 mg Magnesium Hydroxide (Magnesium Hydroxide (Mom) Oral Liqd Udc) 30 ml PO Q4H PRN PRN Reason: Constipation Metoprolol Tartrate (Metoprolol Tartrate 50 Mg Tab) 50 mg PO BID [facility] Last Admin: 01/29/22 10:12 Dose: 50 mg Montelukast Sodium (Montelukast 10 Mg Tab) 10 mg PO QHS [facility] Morphine Sulfate (Morphine 2 Mg/1 Ml Inj) 2 mg IV Q4H PRN PRN Reason: Pain, Moderate (4-6) Last Admin: 01/29/22 10:29 Dose: 2 mg Morphine Sulfate (Morphine 4 Mg/1 Ml Inj) 4 mg IV Q4H PRN PRN Reason: Pain , Severe (7-10) Last Admin: 01/29/22 02:32 Dose: 4 mg Multivitamins/Minerals (Multivitamins,Ther W-Minerals Tab) 1 each PO QDAY [facility] Last Admin: 01/29/22 10:13 Dose: 1 each Ondansetron HCl (Ondansetron 4 Mg/2 Ml Inj) 4 mg IV Q8H PRN PRN Reason: Nausea And Vomiting Sodium Chloride (Sodium Chloride 0.9% 10 Ml Flush Syringe) 10 ml IV BID [facility] Last Admin: 01/29/22 10:14 Dose: 10 ml Sodium Chloride (Sodium Chloride 0.9% 10 Ml Flush Syringe) 10 ml IV PRN PRN PRN Reason: LINE FLUSH Valsartan (Valsartan 160mg Tab) 160 mg PO BID [facility] Last Admin: 01/29/22 11:47 Dose: 160 mg Review of Systems Constitutional: no weight loss, no weight gain, no fever, no chills Ears, nose, mouth and throat: no sinus pressure, no sinus pain Cardiovascular: shortness of breath, dyspnea on exertion, leg edema, no chest pain Respiratory: shortness of breath, dyspnea on exertion Gastrointestinal: diarrhea, no abdominal pain, no nausea Musculoskeletal: other (Right lower extremity pain) Integumentary: no rash, no pruritis, no redness Neurological: syncope, no head injury, no transient paralysis, no paralysis Psychiatric: no anxiety, no memory loss Endocrine: no cold intolerance, no heat intolerance Hematologic/Lymphatic: no easy bruising, no easy bleeding Physical Examination Vital Signs Temp Pulse Resp BP Pulse Ox 97.5 F L 89 22 168/144 100 01/28/22 14:08 01/28/22 14:08 01/28/22 14:08 01/28/22 14:08 01/28/22 14:08 General appearance: no acute distress HEENT: Positive: PERRL Neck: Positive: trachea midline Cardiac: Positive: Reg Rate and Rhythm Lungs: Positive: Normal Breath Sounds Neuro: Positive: Grossly Intact Abdomen: Positive: Soft Skin: Negative: Rash, Suspicious Lesions, Ulceration Extremities: Present: upper extr. pulses, edema (Right lower extremity greater than left lower extremity, possibly hematoma) Results 01/28/22 16:32 01/29/22 04:07 Cardiac Enzymes 01/28/22 01/28/22 Range/Units 16:32 16:32 AST 11 (5-40) units/L CK-MB (CK-2) 2.8 (0.0-4.0) ng/mL Coagulation 01/28/22 Range/Units 16:32 PT 15.3 H (12.2-14.9) Sec. INR 1.09 (0.87-1.13) CBC 01/28/22 Range/Units 16:32 WBC 5.8 (4.5-11.0) K/mm3 RBC 5.13 H (3.65-5.03) M/mm3 Hgb 10.8 (10.1-14.3) gm/dl Hct 35.3 (30.3-42.9) % Plt Count 309 (140-440) K/mm3 Comprehensive Metabolic Panel 01/28/22 01/29/22 Range/Units 16:32 04:07 Sodium 143 142 (137-145) mmol/L Potassium 3.7 3.8 (3.6-5.0) mmol/L Chloride 103.6 102.1 (98-107) mmol/L Carbon Dioxide 27 25 (22-30) mmol/L BUN 11 13 (7-17) mg/dL Creatinine 0.7 0.7 (0.6-1.2) mg/dL Glucose 86 210 H (65-100) mg/dL Calcium 8.9 8.9 (8.4-10.2) mg/dL AST 11 (5-40) units/L ALT 6 L (7-56) units/L Alkaline Phosphatase 221 H (35-129) units/L Total Protein 7.8 (6.3-8.2) g/dL Albumin 3.9 (3.9-5) g/dL - Imaging and Cardiology Echo: report reviewed EKG interpretations - Telemetry EKG Rhythm: Sinus Rhythm - EKG Sinus rhythms and dysrhythmias: sinus rhythm Assessment and Plan This patient is a 61 y/o female with a PMHX of CAD s/p PCI in 2019 on DAPT, DM, HFpEF(EF50-55%), HTN, COPD on home 02, medical noncompliance who presented to ED with a complaint that she fell at home. S/p fall hypertensive urgency Acute on chronic HFpEF Acute on chronic hypoxic respiratory failure- Currently on NC COPD- on home O2 HTN CAD s/p PCI 2018 DM Obesity Medical noncompliance Echo 01/08/2022-EF 50-55%. Mild concentric LVH. Right ventricle mildly dilated. Right ventricle systolic function is grossly normal. Extremities dilated. Moderate to severe tricuspid regurgitation. [facility] 06/20/2018 successful PCI with intravascular ultrasound of the ramus with DIANELYS which was 100% culprit vessel with DIANELYS. Left main patent, LAD patent. RCA mmoderate to severe tortuosity with mid stent patent, circumflex pateent, ARIELA 50% with sintia 100% with successful PCI. Acute diastolic dysfunction Medications on Previous admissions: Metoprolol 50 mg p.o. twice daily, valsartan 160 mg p.o. twice daily, nifedipine 30 mg p.o. daily, hydralazine 100 mg p.o. 3 times daily, clonidine 0.2 mg p.o. twice daily, Imdur 60 mg p.o. daily Plan: Cardene drip stopped. Will initiate valsartan 160mg PO BID and hydralazine 100mg PO TID Continue metoprolol 50mg PO BID, Imdur 60mg QD Patient's BPs remain controlled will continue to hold clonidine 0.1mg PO BID, nifedipine 30mg QD at this time Continue DAPT with aspirin and Plavix BNP noted to be elevated agree with diuresis with Lasix IV 40 mg twice daily Strict I& O's, daily weights, and repeat BMP in the a.m. with close monitoring of renal function Patient noted to have edema/hematoma on right lower extremity greater than left lower extremity. Venous Doppler study pending Discussed importance of medication compliance and importance of follow-up appoi ntment with patient. Patient verbalized understanding and acknowledgment Patient seen in conjunction with Dr. Hernandez who agrees with this plan of care. - Patient Problems (1) COPD exacerbation Current Visit: Yes Status: Acute (2) Hypertensive emergency Current Visit: Yes Status: Acute (3) Medical non-compliance Current Visit: Yes Status: Chronic (4) Acute and chronic respiratory failure Current Visit: No Status: Acute Qualifiers: Respiratory failure complication: hypoxia Qualified Code(s): J96.21 - Acute and chronic respiratory failure with hypoxia (5) Acute on chronic diastolic heart failure Current Visit: No Status: Acute (6) Cardiomyopathy Current Visit: No Status: Acute (7) Morbid obesity with body mass index of 40.0-49.9 Current Visit: No Status: Acute (8) Obesity hypoventilation syndrome Current Visit: No Status: Acute (9) CAD (coronary artery disease) Current Visit: No Status: Chronic Qualifiers: Coronary Disease-Associated Artery/Lesion type: [place] artery [place] vs. transplanted heart: [place] heart Associated angina: without angina Qualified Code(s): I25.10 - Atherosclerotic heart disease of [place] coronary artery without angina pectoris (10) Diabetes mellitus, type 2 Current Visit: No Status: Chronic (11) Hyperlipidemia Current Visit: No Status: Chronic Qualifiers: Hyperlipidemia type: mixed hyperlipidemia Qualified Code(s): E78.2 - Mixed hyperlipidemia (12) ADAN (obstructive sleep apnea) Current Visit: No Status: Chronic
--- NOTE | 2022-01-29 15:36 | Progress Note ---
<TOYA SWIFT - Last Filed: 01/29/22 15:29> Assessment and Plan Assessment and plan: This is a 61-year-old female with COPD, CHF, CAD s/p stent placement and noncompliance admitted for migraine hypertensive urgency and CHF exacerbation Neuro: Noncompliance -Reorientation as needed -Maintain sleep-wake cycle -As needed analgesia -Medical compliance strongly encouraged -Continue home Celexa Cardiac: Hypertensive urgency, acute on chronic diastolic heart failure, CAD s/p stent (06/2018) -Cardiology consulted, appreciate recommendations -Blood pressure monitoring per protocol -S/p Cardene drip -P.o. hydralazine, metoprolol, Imdur, valsartan -Admit proBNP 11,363 -Lasix 40 mg twice daily -Plavix, aspirin, Lipitor -01/09/2020 echocardiogram shows EF of 50 to 55% -Of note: Echo 09/15/2020-LVEF is 50 to 55%. LV SF is normal. Moderate LVH. RV SF is normal. Moderate pulmonary hypertension cannot be excluded due to poor regurgitant envelope [facility] 06/20/2018 successful PCI with intravascular ultrasound of the ramus with DIANELYS which was 100% culprit vessel with DIANELYS. Left main patent, LAD patent. RCA mmoderate to severe tortuosity with mid stent patent, circumflex pateent, ARIELA 50% with sintia 100% with successful PCI. Acute diastolic dysfunction Echo 03/25/2021 EF 50 to 55%, moderate concentric left ventricular hypertrophy. Right ventricle mildly dilated, right ventricle hypokinetic. Left atrium moderately dilated right atrium mildly dilated. Mild to moderate tricuspid regurgitation. Moderate pulmonary hypertension. Respiratory: Acute on chronic hypoxic respiratory failure (2 L nasal cannula at home), current nicotine abuse -Initially presented with shortness of breath -[facility] consulted, appreciate recommendations -Continue nasal cannula -SPO2 monitor per protocol -Supplemental oxygen as needed -Pulmonary hygiene -Continue Brovana, Singulair, Pulmicort -Tobacco cessation counseling provided GI: Morbid obesity -24 hours +38 mL -PPI -cc cardiac diet : NAD -Monitor intake and output -Renally dose medications -Avoid nephrotoxic medications ID: [id number] -f/u blood culture -Monitor WBC and temperature curve Endo: Hyperglycemia -Avoid hypoglycemia -SSI -Accu-Cheks ACHS -hbg a1c pending Heme: r/o DVT, h/o PE -Left lower extremity Doppler ultrasound pending swelling -Trend CBC -Transfuse hemoglobin less than 7 -SCDs to BLE while in bed The high probability of a clinically significant, sudden or life threatening deterioration of the [cardio] system(s) required my full and direct attention, i ntervention and personal management. The aggregate critical care time was [60] minutes. This time is in addition to time spent performing reported procedures but includes the following: [x] Data Review and interpretation [x] Patient assessment and monitoring of vital signs [x] Documentation [x] Medication orders and management Disposition Plan: transfer to floor Total Time Spent with Patient (Minutes): 60 History Interval history: This is 61-year-old female with COPD, CHF, PE, CAD s/p stent placement and noncompliance who presented to the emergency department on 01/28 with complaints of shortness of breath via EMS. Upon EMS arrival patient was tachypneic, not on any oxygen tripod positioned and using accessory muscles for respirations and SPO2 was 92% on room air. Patient also noted that she fell at home and was on the floor for quite some time before getting help to get up from the floor. Upon arrival to the emergency department patient's blood pressure was in the 200s over 100s and she did not respond to IV hydralazine and metoprolol and was placed on a Cardene drip and CXR showed CSF exacerbation. Patient was admitted to the hospitalist service with consult to cardiology with malignant hypertensive urgency and CHF exacerbation. Hospital course to date: 01/29: Patient has been weaned off of Cardene drip and will be started on p.o. metoprolol, hydralazine, Imdur and valsartan. PT/OT consulted. We will obtain right lower extremity ultrasound for swelling to rule out DVT. Patient will transfer to telemetry. Hospitalist Physical - Constitutional Vitals: Temp Pulse Resp BP Pulse Ox 98.4 F 91 H 16 176/104 92 01/29/22 11:43 01/29/22 11:47 01/29/22 10:30 01/29/22 11:47 01/29/22 10:30 General appearance: Present: no acute distress, obese - EENT Eyes: Present: PERRL, EOM intact ENT: hearing intact, clear oral mucosa, dentition normal - Neck Neck: Present: normal ROM - Respiratory Respiratory effort: normal Respiratory: bilateral: CTA, diminished - Cardiovascular Rhythm: regular Heart Sounds: Present: S1 & S2. Absent: systolic murmur, diastolic murmur - Extremities Extremities: no ischemia, pulses intact, pulses symmetrical Extremity abnormal: edema Peripheral Pulses: within normal limits - Abdominal General gastrointestinal: soft, non-tender, non-distended, normal bowel sounds - Integumentary Integumentary: Present: warm, dry - Psychiatric Psychiatric: cooperative - Neurologic Neurologic: CNII-XII intact, no focal deficits, moves all extremities - Allied Health Allied health notes reviewed: nursing, RT, social work HEART Score - HEART Score Troponin: Troponin T < 0.010 ng/mL (0.00-0.029) 01/28/22 16:32 Results - Labs CBC & Chem 7: 01/28/22 16:32 01/29/22 04:07 Labs: Laboratory Last Values WBC 5.8 K/mm3 (4.5-11.0) 01/28/22 16:32 RBC 5.13 M/mm3 (3.65-5.03) H 01/28/22 16:32 Hgb 10.8 gm/dl (10.1-14.3) 01/28/22 16:32 Hct 35.3 % (30.3-42.9) 01/28/22 16:32 MCV 69 fl (79-97) L 01/28/22 16:32 MCH 21 pg (28-32) L 01/28/22 16:32 MCHC 31 % (30-34) 01/28/22 16:32 RDW 25.0 % (13.2-15.2) H 01/28/22 16:32 Plt Count 309 K/mm3 (140-440) 01/28/22 16:32 Add Manual Diff Complete 01/28/22 16:32 Total Counted 100 01/28/22 16:32 Seg Neuts % (Manual) 88.0 % (40.0-70.0) H 01/28/22 16:32 Band Neutrophils % 0 % 01/28/22 16:32 Lymphocytes % (Manual) 6.0 % (13.4-35.0) L 01/28/22 16:32 Reactive Lymphs % (Man) 0 % 01/28/22 16:32 Monocytes % (Manual) 5.0 % (0.0-7.3) 01/28/22 16:32 Eosinophils % (Manual) 1.0 % (0.0-4.3) 01/28/22 16:32 Basophils % (Manual) 0 % (0.0-1.8) 01/28/22 16:32 Metamyelocytes % 0 % 01/28/22 16:32 Myelocytes % 0 % 01/28/22 16:32 Promyelocytes % 0 % 01/28/22 16:32 Blast Cells % 0 % 01/28/22 16:32 Nucleated RBC % Not Reportable 01/28/22 16:32 Seg Neutrophils # Man 5.1 K/mm3 (1.8-7.7) 01/28/22 16:32 Band Neutrophils # 0.0 K/mm3 01/28/22 16:32 Lymphocytes # (Manual) 0.3 K/mm3 (1.2-5.4) L 01/28/22 16:32 Abs React Lymphs (Man) 0.0 K/mm3 01/28/22 16:32 Monocytes # (Manual) 0.3 K/mm3 (0.0-0.8) 01/28/22 16:32 Eosinophils # (Manual) 0.1 K/mm3 (0.0-0.4) 01/28/22 16:32 Basophils # (Manual) 0.0 K/mm3 (0.0-0.1) 01/28/22 16:32 Metamyelocytes # 0.0 K/mm3 01/28/22 16:32 Myelocytes # 0.0 K/mm3 01/28/22 16:32 Promyelocytes # 0.0 K/mm3 01/28/22 16:32 Blast Cells # 0.0 K/mm3 01/28/22 16:32 WBC Morphology Not Reportable 01/28/22 16:32 Hypersegmented Neuts Not Reportable 01/28/22 16:32 Hyposegmented Neuts Not Reportable 01/28/22 16:32 Hypogranular Neuts Not Reportable 01/28/22 16:32 Smudge Cells Not Reportable 01/28/22 16:32 Toxic Granulation Not Reportable 01/28/22 16:32 Toxic Vacuolation Not Reportable 01/28/22 16:32 Dohle Bodies Not Reportable 01/28/22 16:32 Pelger-Huet Anomaly Not Reportable 01/28/22 16:32 Juan Rods Not Reportable 01/28/22 16:32 Platelet Estimate Consistent w auto 01/28/22 16:32 Clumped Platelets Not Reportable 01/28/22 16:32 Plt Clumps, EDTA Not Reportable 01/28/22 16:32 Large Platelets Not Reportable 01/28/22 16:32 Giant Platelets Few 01/28/22 16:32 Platelet Satelliting Not Reportable 01/28/22 16:32 Plt Morphology Comment Not Reportable 01/28/22 16:32 RBC Morphology Not Reportable 01/28/22 16:32 Dimorphic RBCs Not Reportable 01/28/22 16:32 Polychromasia Not Reportable 01/28/22 16:32 Hypochromasia 2+ 01/28/22 16:32 Poikilocytosis Not Reportable 01/28/22 16:32 Anisocytosis 2+ 01/28/22 16:32 Microcytosis 2+ 01/28/22 16:32 Macrocytosis Not Reportable 01/28/22 16:32 Spherocytes Not Reportable 01/28/22 16:32 Pappenheimer Bodies Not Reportable 01/28/22 16:32 Sickle Cells Not Reportable 01/28/22 16:32 Target Cells Few 01/28/22 16:32 Tear Drop Cells Not Reportable 01/28/22 16:32 Ovalocytes Few 01/28/22 16:32 Helmet Cells Not Reportable 01/28/22 16:32 [place] Bodies Not Reportable 01/28/22 16:32 [place] Rings Not Reportable 01/28/22 16:32 Joanna Cells Not Reportable 01/28/22 16:32 Bite Cells Not Reportable 01/28/22 16:32 Crenated Cell Not Reportable 01/28/22 16:32 Elliptocytes Few 01/28/22 16:32 Acanthocytes (Spur) Not Reportable 01/28/22 16:32 Rouleaux Not Reportable 01/28/22 16:32 Hemoglobin C Crystals Not Reportable 01/28/22 16:32 Schistocytes Not Reportable 01/28/22 16:32 Malaria parasites Not Reportable 01/28/22 16:32 Didier Bodies Not Reportable 01/28/22 16:32 Hem Pathologist Commnt No 01/28/22 16:32 PT 15.3 Sec. (12.2-14.9) H 01/28/22 16:32 INR 1.09 (0.87-1.13) 01/28/22 16:32 Sodium 142 mmol/L (137-145) 01/29/22 04:07 Potassium 3.8 mmol/L (3.6-5.0) 01/29/22 04:07 Chloride 102.1 mmol/L (98-107) 01/29/22 04:07 Carbon Dioxide 25 mmol/L (22-30) 01/29/22 04:07 Anion Gap 19 mmol/L 01/29/22 04:07 BUN 13 mg/dL (7-17) 01/29/22 04:07 Creatinine 0.7 mg/dL (0.6-1.2) 01/29/22 04:07 Estimated GFR > 60 ml/min 01/29/22 04:07 BUN/Creatinine Ratio 19 % 01/29/22 04:07 Glucose 210 mg/dL (65-100) H 01/29/22 04:07 POC Glucose 162 mg/dL (70-105) H 01/29/22 11:08 Ketones Quantitative Negative (Negative) 01/28/22 16:32 Lactic Acid 1.90 mmol/L (0.7-2.0) 01/28/22 16:32 Calcium 8.9 mg/dL (8.4-10.2) 01/29/22 04:07 Magnesium 2.00 mg/dL (1.7-2.3) 01/28/22 16:32 Total Bilirubin 0.60 mg/dL (0.1-1.2) 01/28/22 16:32 AST 11 units/L (5-40) 01/28/22 16:32 ALT 6 units/L (7-56) L 01/28/22 16:32 Alkaline Phosphatase 221 units/L (35-129) H 01/28/22 16:32 Total Creatine Kinase 34 units/L (30-135) 01/28/22 16:32 Total Creatine Kinase 39 units/L (30-135) 01/28/22 16:32 CK-MB (CK-2) 2.8 ng/mL (0.0-4.0) 01/28/22 16:32 CK-MB (CK-2) Rel Index 8.2 (0-4) H 01/28/22 16:32 Troponin T < 0.010 ng/mL (0.00-0.029) 01/28/22 16:32 NT-Pro-B Natriuret Pep 98954 pg/mL (0-900) H 01/28/22 16:32 Total Protein 7.8 g/dL (6.3-8.2) 01/28/22 16:32 Albumin 3.9 g/dL (3.9-5) 01/28/22 16:32 Albumin/Globulin Ratio 1.0 % 01/28/22 16: Lipase 12 units/L (13-60) L 01/28/22 16:32 Urine Color Yellow (Yellow) 01/28/22 17:02 Urine Turbidity Clear (Clear) 01/28/22 17:02 Specific Melrude (Man) 1.010 (1.003-1.030) 01/28/22 17:02 Ur Protein (Man) 1+ mg/dL (Negative) 01/28/22 17:02 Ur Ketones (Man) Negative (Negative) 01/28/22 17:02 Ur Nitrite (Man) Positive (Negative) 01/28/22 17:02 Urine Bilirubin (Man) Negative (Negative) 01/28/22 17:02 Leukocyte Esterase (Man) Negative (Negative) 01/28/22 17:02 Urine WBC (Auto) 4.0 /HPF (0.0-6.0) 01/28/22 17:02 Urine RBC (Auto) 1.0 /HPF (0.0-6.0) 01/28/22 17:02 Urine RBC (Manual) 1+ (Negative) 01/28/22 17:02 Urine Mucus Few /HPF 01/28/22 17:02 Urine Opiates Screen Presumptive negative 01/28/22 17:02 Urine Methadone Screen Presumptive negative 01/28/22 17:02 Ur Barbiturates Screen Presumptive negative 01/28/22 17:02 Ur Phencyclidine Scrn Presumptive negative 01/28/22 17:02 Ur Amphetamines Screen Presumptive negative 01/28/22 17:02 U Benzodiazepines Scrn Presumptive negative 01/28/22 17:02 Urine Cocaine Screen Presumptive negative 01/28/22 17:02 U Marijuana (THC) Screen Presumptive negative 01/28/22 17:02 Drugs of Abuse Note Disclamer 01/28/22 17:02 Active Medications - Current Medications Current Medications: Generic Name Dose Route Start Last Admin Trade Name Freq PRN Reason Stop Dose Admin Acetaminophen 650 mg 01/28/22 23:53 Acetaminophen 325 Mg Tab PO Q4H PRN Pain MILD(1-3)/Fever >100.5/ALAS Albuterol 2.5 mg 01/29/22 09:17 Albuterol 2.5 Mg/3 Ml Nebu IH Q4HRT PRN Shortness Of Breath Arformoterol Tartrate 15 mcg 01/29/22 20:00 Arformoterol 15 Mcg/2 Ml Nebu IH Q12HRT ANN MARIE Aspirin 81 mg 01/29/22 10:00 01/29/22 10:15 Aspirin Ec 81 Mg Tab PO 81 mg QDAY ANN MARIE Administration Atorvastatin Calcium 40 mg 01/29/22 22:00 Atorvastatin 40 Mg Tab PO QHS ANN MARIE Budesonide 0.5 mg 01/29/22 20:00 Budesonide 0.5 Mg/2 Ml Nebu IH Q12HRT [facility] Citalopram Hydrobromide 20 mg 01/29/22 10:00 01/29/22 10:13 Citalopram 20 Mg Tab PO 20 mg QDAY ANN MARIE Administration Clopidogrel Bisulfate 75 mg 01/29/22 10:00 01/29/22 10:13 Clopidogrel 75 Mg Tab PO 75 mg QDAY ANN MARIE Administration Dextrose 0 ml 01/28/22 23:53 Dextrose 50% In Water (25gm) 50 Ml Syringe IV Q30MIN PRN Hypoglycemia Protocol Famotidine 20 mg 01/29/22 10:00 01/29/22 10:13 Famotidine 20 Mg Tab PO 20 mg DAILY ANN MARIE Administration Furosemide 40 mg 01/29/22 06:00 01/29/22 06:03 Furosemide 40 Mg/4 Ml Inj IV 40 mg BID@0600,1800 ANN MARIE Administration Hydralazine HCl 100 mg 01/29/22 14:00 01/29/22 13:41 Hydralazine 100 Mg Tab PO 100 mg Q8HR ANN MARIE Administration Hydralazine HCl 10 mg 01/29/22 13:15 Hydralazine 20 Mg/1 Ml Inj IV Q4HR PRN Hypertension Insulin Human Lispro 0 unit 01/29/22 07:30 01/29/22 11:46 Insulin Lispro 100 Unit/Ml SUB-Q 2 unit ACHS ANN MARIE Administration Protocol Isosorbide Mononitrate 60 mg 01/29/22 10:00 01/29/22 10:13 Isosorbide Mononitrate Er 60 Mg Tab PO 60 mg QDAY ANN MARIE Administration Magnesium Hydroxide 30 ml 01/28/22 23:53 Magnesium Hydroxide (Mom) Oral Liqd Udc PO Q4H PRN Constipation Metoprolol Tartrate 50 mg 01/29/22 10:00 01/29/22 10:12 Metoprolol Tartrate 50 Mg Tab PO 50 mg BID ANN MARIE Administration Montelukast Sodium 10 mg 01/29/22 22:00 Montelukast 10 Mg Tab PO QHS ANN MARIE Morphine Sulfate 2 mg 01/28/22 23:53 01/29/22 10:29 Morphine 2 Mg/1 Ml Inj IV 2 mg Q4H PRN Administration Pain, Moderate (4-6) Morphine Sulfate 4 mg 01/28/22 23:53 01/29/22 02:32 Morphine 4 Mg/1 Ml Inj IV 4 mg Q4H PRN Administration Pain , Severe (7-10) Multivitamins/Minerals 1 each 01/29/22 10:00 01/29/22 10:13 Multivitamins,Ther W-Minerals Tab PO 1 each QDAY ANN MARIE Administration Ondansetron HCl 4 mg 01/28/22 23:53 Ondansetron 4 Mg/2 Ml Inj IV Q8H PRN Nausea And Vomiting Sodium Chloride 10 ml 01/29/22 10:00 01/29/22 10:14 Sodium Chloride 0.9% 10 Ml Flush Syringe IV 10 ml BID ANN MARIE Administration Sodium Chloride 10 ml 01/28/22 23:53 Sodium Chloride 0.9% 10 Ml Flush Syringe IV PRN PRN LINE FLUSH Valsartan 160 mg 01/29/22 11:00 01/29/22 11:47 Valsartan 160mg Tab PO 160 mg BID ANN MARIE Administration Nutrition/Malnutrition Assess - Dietary Evaluation Nutrition/Malnutrition Findings: Nutrition Notes Start: 01/29/22 13:57 Freq: Status: Active Protocol: Document 01/29/22 13:57 FREDERICK (Rec: 01/29/22 14:08 FREDERICK [id number]) Nutrition Notes Need for Assessment generated from: MD Order,Education Initial or Follow up Brief Note Current Diagnosis COPD,Coronary Artery Disease, Hypertension Other Pertinent Diagnosis CHF, DVT, PE, Cardiomyopathy. Current Diet Cardiac/Consistent Carbohydrates Diet (since B ). Height 5 ft 11 in Weight 149.685 kg [place] Body Weight (kg) 70.45 BMI 46.0 Intake Prior to Admission Good Weight change and time frame Pt denies having loss body weight [employer]. Weight Status Morbidly Obese Subjective/Other Information RD consult for nutrition education assessment. No reports available on Pt's PO intake of meals at the time , will assess at F/U. Pt is on Nasal Cannula, O2 saturation @ 94%, according to Physical Assessment History notes. Pt has caries and missing teeth, according to Physical Assessment History notes. Pt presents Bilateral-LE Pitting Edema 2+, according to Physical Assessment History notes. Pt still in critical condition , not a candidate for Nutrition Education at the time, will assess feasibility on F/U. Percent of energy/protein needs met: Prescribed Cardiac/Consistent Carbohydrates Diet provides for energy/protein needs (1, 977 Kcal/86 g) during LOS. Nutrition Intervention Follow-Up By: 02/05/22 Additional Comments Nutrition education will be provided at F/U, if feasible. Continue monitoring food tolerance, %PO intake of meals , and BM. <DERRICK PAZ - Last Filed: 01/29/22 19:24> Assessment and Plan Assessment and plan: I saw and evaluated the patient. I agree with the findings and the plan of care as documented in the Nurse Practitioner's~note, with the following corrections and additions. Hospitalist Physical - Constitutional Vitals: Temp Pulse Resp BP Pulse Ox 97.7 F 93 H 22 144/96 95 01/29/22 16:29 01/29/22 17:30 01/29/22 17:30 01/29/22 17:30 01/29/22 17:30 HEART Score - HEART Score Troponin: Troponin T < 0.010 ng/mL (0.00-0.029) 01/28/22 16:32 Results - Labs CBC & Chem 7: 01/28/22 16:32 01/29/22 04:07 Labs: Laboratory Last Values WBC 5.8 K/mm3 (4.5-11.0) 01/28/22 16:32 RBC 5.13 M/mm3 (3.65-5.03) H 01/28/22 16:32 Hgb 10.8 gm/dl (10.1-14.3) 01/28/22 16:32 Hct 35.3 % (30.3-42.9) 01/28/22 16:32 MCV 69 fl (79-97) L 01/28/22 16:32 MCH 21 pg (28-32) L 01/28/22 16:32 MCHC 31 % (30-34) 01/28/22 16:32 RDW 25.0 % (13.2-15.2) H 01/28/22 16:32 Plt Count 309 K/mm3 (140-440) 01/28/22 16:32 Add Manual Diff Complete 01/28/22 16:32 Total Counted 100 01/28/22 16:32 Seg Neuts % (Manual) 88.0 % (40.0-70.0) H 01/28/22 16:32 Band Neutrophils % 0 % 01/28/22 16:32 Lymphocytes % (Manual) 6.0 % (13.4-35.0) L 01/28/22 16:32 Reactive Lymphs % (Man) 0 % 01/28/22 16:32 Monocytes % (Manual) 5.0 % (0.0-7.3) 01/28/22 16:32 Eosinophils % (Manual) 1.0 % (0.0-4.3) 01/28/22 16:32 Basophils % (Manual) 0 % (0.0-1.8) 01/28/22 16:32 Metamyelocytes % 0 % 01/28/22 16:32 Myelocytes % 0 % 01/28/22 16:32 Promyelocytes % 0 % 01/28/22 16:32 Blast Cells % 0 % 01/28/22 16:32 Nucleated RBC % Not Reportable 01/28/22 16:32 Seg Neutrophils # Man 5.1 K/mm3 (1.8-7.7) 01/28/22 16:32 Band Neutrophils # 0.0 K/mm3 01/28/22 16:32 Lymphocytes # (Manual) 0.3 K/mm3 (1.2-5.4) L 01/28/22 16:32 Abs React Lymphs (Man) 0.0 K/mm3 01/28/22 16:32 Monocytes # (Manual) 0.3 K/mm3 (0.0-0.8) 01/28/22 16:32 Eosinophils # (Manual) 0.1 K/mm3 (0.0-0.4) 01/28/22 16:32 Basophils # (Manual) 0.0 K/mm3 (0.0-0.1) 01/28/22 16:32 Metamyelocytes # 0.0 K/mm3 01/28/22 16:32 Myelocytes # 0.0 K/mm3 01/28/22 16:32 Promyelocytes # 0.0 K/mm3 01/28/22 16:32 Blast Cells # 0.0 K/mm3 01/28/22 16:32 WBC Morphology Not Reportable 01/28/22 16:32 Hypersegmented Neuts Not Reportable 01/28/22 16:32 Hyposegmented Neuts Not Reportable 01/28/22 16:32 Hypogranular Neuts Not Reportable 01/28/22 16:32 Smudge Cells Not Reportable 01/28/22 16:32 Toxic Granulation Not Reportable 01/28/22 16:32 Toxic Vacuolation Not Reportable 01/28/22 16:32 Dohle Bodies Not Reportable 01/28/22 16:32 Pelger-Huet Anomaly Not Reportable 01/28/22 16:32 Juan Rods Not Reportable 01/28/22 16:32 Platelet Estimate Consistent w auto 01/28/22 16:32 Clumped Platelets Not Reportable 01/28/22 16:32 Plt Clumps, EDTA Not Reportable 01/28/22 16:32 Large Platelets Not Reportable 01/28/22 16:32 Giant Platelets Few 01/28/22 16:32 Platelet Satelliting Not Reportable 01/28/22 16:32 Plt Morphology Comment Not Reportable 01/28/22 16:32 RBC Morphology Not Reportable 01/28/22 16:32 Dimorphic RBCs Not Reportable 01/28/22 16:32 Polychromasia Not Reportable 01/28/22 16:32 Hypochromasia 2+ 01/28/22 16:32 Poikilocytosis Not Reportable 01/28/22 16:32 Anisocytosis 2+ 01/28/22 16:32 Microcytosis 2+ 01/28/22 16:32 Macrocytosis Not Reportable 01/28/22 16:32 Spherocytes Not Reportable 01/28/22 16:32 Pappenheimer Bodies Not Reportable 01/28/22 16:32 Sickle Cells Not Reportable 01/28/22 16:32 Target Cells Few 01/28/22 16:32 Tear Drop Cells Not Reportable 01/28/22 16:32 Ovalocytes Few 01/28/22 16:32 Helmet Cells Not Reportable 01/28/22 16:32 [place] Bodies Not Reportable 01/28/22 16:32 [place] Rings Not Reportable 01/28/22 16:32 [place] Cells Not Reportable 01/28/22 16:32 Bite Cells Not Reportable 01/28/22 16:32 Crenated Cell Not Reportable 01/28/22 16:32 Elliptocytes Few 01/28/22 16:32 Acanthocytes (Spur) Not Reportable 01/28/22 16:32 Rouleaux Not Reportable 01/28/22 16:32 Hemoglobin C Crystals Not Reportable 01/28/22 16:32 Schistocytes Not Reportable 01/28/22 16:32 Malaria parasites Not Reportable 01/28/22 16:32 Didier Bodies Not Reportable 01/28/22 16:32 Hem Pathologist Commnt No 01/28/22 16:32 PT 15.3 Sec. (12.2-14.9) H 01/28/22 16:32 INR 1.09 (0.87-1.13) 01/28/22 16:32 Sodium 142 mmol/L (137-145) 01/29/22 04:07 Potassium 3.8 mmol/L (3.6-5.0) 01/29/22 04:07 Chloride 102.1 mmol/L (98-107) 01/29/22 04:07 Carbon Dioxide 25 mmol/L (22-30) 01/29/22 04:07 Anion Gap 19 mmol/L 01/29/22 04:07 BUN 13 mg/dL (7-17) 01/29/22 04:07 Creatinine 0.7 mg/dL (0.6-1.2) 01/29/22 04:07 Estimated GFR > 60 ml/min 01/29/22 04:07 BUN/Creatinine Ratio 19 % 01/29/22 04:07 Glucose 210 mg/dL (65-100) H 01/29/22 04:07 POC Glucose 133 mg/dL (70-105) H 01/29/22 16:05 Hemoglobin A1c 6.0 % (4-6) 01/28/22 16:32 Ketones Quantitative Negative (Negative) 01/28/22 16:32 Lactic Acid 1.90 mmol/L (0.7-2.0) 01/28/22 16:32 Calcium 8.9 mg/dL (8.4-10.2) 01/29/22 04:07 Magnesium 2.00 mg/dL (1.7-2.3) 01/28/22 16:32 Total Bilirubin 0.60 mg/dL (0.1-1.2) 01/28/22 16:32 AST 11 units/L (5-40) 01/28/22 16:32 ALT 6 units/L (7-56) L 01/28/22 16:32 Alkaline Phosphatase 221 units/L (35-129) H 01/28/22 16:32 Total Creatine Kinase 34 units/L (30-135) 01/28/22 16:32 Total Creatine Kinase 39 units/L (30-135) 01/28/22 16:32 CK-MB (CK-2) 2.8 ng/mL (0.0-4.0) 01/28/22 16:32 CK-MB (CK-2) Rel Index 8.2 (0-4) H 01/28/22 16:32 Troponin T < 0.010 ng/mL (0.00-0.029) 01/28/22 16:32 NT-Pro-B Natriuret Pep 66306 pg/mL (0-900) H 01/28/22 16:32 Total Protein 7.8 g/dL (6.3-8.2) 01/28/22 16:32 Albumin 3.9 g/dL (3.9-5) 01/28/22 16:32 Albumin/Globulin Ratio 1.0 % 01/28/22 16:32 Lipase 12 units/L (13-60) L 01/28/22 16:32 Urine Color Yellow (Yellow) 01/28/22 17:02 Urine Turbidity Clear (Clear) 01/28/22 17:02 Specific Melrude (Man) 1.010 (1.003-1.030) 01/28/22 17:02 Ur Protein (Man) 1+ mg/dL (Negative) 01/28/22 17:02 Ur Ketones (Man) Negative (Negative) 01/28/22 17:02 Ur Nitrite (Man) Positive (Negative) 01/28/22 17:02 Urine Bilirubin (Man) Negative (Negative) 01/28/22 17:02 Leukocyte Esterase (Man) Negative (Negative) 01/28/22 17:02 Urine WBC (Auto) 4.0 /HPF (0.0-6.0) 01/28/22 17:02 Urine RBC (Auto) 1.0 /HPF (0.0-6.0) 01/28/22 17:02 Urine RBC (Manual) 1+ (Negative) 01/28/22 17:02 Urine Mucus Few /HPF 01/28/22 17:02 Urine Opiates Screen Presumptive negative 01/28/22 17:02 Urine Methadone Screen Presumptive negative 01/28/22 17:02 Ur Barbiturates Screen Presumptive negative 01/28/22 17:02 Ur Phencyclidine Scrn Presumptive negative 01/28/22 17:02 Ur Amphetamines Screen Presumptive negative 01/28/22 17:02 U Benzodiazepines Scrn Presumptive negative 01/28/22 17:02 Urine Cocaine Screen Presumptive negative 01/28/22 17:02 U Marijuana (THC) Screen Presumptive negative 01/28/22 17:02 Drugs of Abuse Note Disclamer 01/28/22 17:02 Fabian/IV: Voiding Method External Female Catheter Active Medications - Current Medications Current Medications: Generic Name Dose Route Start Last Admin Trade Name Freq PRN Reason Stop Dose Admin Acetaminophen 650 mg 01/28/22 23:53 Acetaminophen 325 Mg Tab PO Q4H PRN Pain MILD(1-3)/Fever >100.5/ALAS Albuterol 2.5 mg 01/29/22 09:17 Albuterol 2.5 Mg/3 Ml Nebu IH Q4HRT PRN Shortness Of Breath Arformoterol Tartrate 15 mcg 01/29/22 20:00 Arformoterol 15 Mcg/2 Ml Nebu IH Q12HRT ANN MARIE Aspirin 81 mg 01/29/22 10:00 01/29/22 10:15 Aspirin Ec 81 Mg Tab PO 81 mg QDAY ANN MARIE Administration Atorvastatin Calcium 40 mg 01/29/22 22:00 Atorvastatin 40 Mg Tab PO QHS [facility] Budesonide 0.5 mg 01/29/22 20:00 Budesonide 0.5 Mg/2 Ml Nebu IH Q12HRT [facility] Citalopram Hydrobromide 20 mg 01/29/22 10:00 01/29/22 10:13 Citalopram 20 Mg Tab PO 20 mg QDAY [facility] Administration Clopidogrel Bisulfate 75 mg 01/29/22 10:00 01/29/22 10:13 Clopidogrel 75 Mg Tab PO 75 mg QDAY [facility] Administration Dextrose 0 ml 01/28/22 23:53 Dextrose 50% In Water (25gm) 50 Ml Syringe IV Q30MIN PRN Hypoglycemia Protocol Famotidine 20 mg 01/29/22 10:00 01/29/22 10:13 Famotidine 20 Mg Tab PO 20 mg DAILY [facility] Administration Furosemide 40 mg 01/29/22 06:00 01/29/22 17:27 Furosemide 40 Mg/4 Ml Inj IV 40 mg BID@0600,1800 [facility] Administration Hydralazine HCl 100 mg 01/29/22 14:00 01/29/22 13:41 Hydralazine 100 Mg Tab PO 100 mg Q8HR [facility] Administration Hydralazine HCl 10 mg 01/29/22 13:15 Hydralazine 20 Mg/1 Ml Inj IV Q4HR PRN Hypertension Insulin Human Lispro 0 unit 01/29/22 07:30 01/29/22 16:40 Insulin Lispro 100 Unit/Ml SUB-Q Not Given ACHS [facility] Protocol Isosorbide Mononitrate 60 mg 01/29/22 10:00 01/29/22 10:13 Isosorbide Mononitrate Er 60 Mg Tab PO 60 mg QDAY [facility] Administration Magnesium Hydroxide 30 ml 01/28/22 23:53 Magnesium Hydroxide (Mom) Oral Liqd Udc PO Q4H PRN Constipation Metoprolol Tartrate 50 mg 01/29/22 10:00 01/29/22 10:12 Metoprolol Tartrate 50 Mg Tab PO 50 mg BID [facility] Administration Montelukast Sodium 10 mg 01/29/22 22:00 Montelukast 10 Mg Tab PO QHS [facility] Morphine Sulfate 2 mg 01/28/22 23:53 01/29/22 15:28 Morphine 2 Mg/1 Ml Inj IV 2 mg Q4H PRN Administration Pain, Moderate (4-6) Morphine Sulfate 4 mg 01/28/22 23:53 01/29/22 02:32 Morphine 4 Mg/1 Ml Inj IV 4 mg Q4H PRN Administration Pain , Severe (7-10) Multivitamins/Minerals 1 each 01/29/22 10:00 01/29/22 10:13 Multivitamins,Ther W-Minerals Tab PO 1 each QDAY ANN MARIE Administration Ondansetron HCl 4 mg 01/28/22 23:53 01/29/22 15:28 Ondansetron 4 Mg/2 Ml Inj IV 4 mg Q8H PRN Administration Nausea And Vomiting Sodium Chloride 10 ml 01/29/22 10:00 01/29/22 10:14 Sodium Chloride 0.9% 10 Ml Flush Syringe IV 10 ml BID ANN MARIE Administration Sodium Chloride 10 ml 01/28/22 23:53 Sodium Chloride 0.9% 10 Ml Flush Syringe IV PRN PRN LINE FLUSH Valsartan 160 mg 01/29/22 11:00 01/29/22 11:47 Valsartan 160mg Tab PO 160 mg BID ANN MARIE Administration Nutrition/Malnutrition Assess - Dietary Evaluation Nutrition/Malnutrition Findings: Nutrition Notes Start: 01/29/22 13:57 Freq: Status: Active Protocol: Document 01/29/22 13:57 FREDERICK (Rec: 01/29/22 14:08 FREDERICK [id number]) Nutrition Notes Need for Assessment generated from: MD Order,Education Initial or Follow up Brief Note Current Diagnosis COPD,Coronary Artery Disease, Hypertension Other Pertinent Diagnosis CHF, DVT, PE, Cardiomyopathy. Current Diet Cardiac/Consistent Carbohydrates Diet (since B ). Height 5 ft 11 in Weight 149.685 kg [place] Body Weight (kg) 70.45 BMI 46.0 Intake Prior to Admission Good Weight change and time frame Pt denies having loss body weight [employer]. Weight Status Morbidly Obese Subjective/Other Information RD consult for nutrition education assessment. No reports available on Pt's PO intake of meals at the time , will assess at F/U. Pt is on Nasal Cannula, O2 saturation @ 94%, according to Physical Assessment History notes. Pt has caries and missing teeth, according to Physical Assessment History notes. Pt presents Bilateral-LE Pitting Edema 2+, according to Physical Assessment History notes. Pt still in critical condition , not a candidate for Nutrition Education at the time, will assess feasibility on F/U. Percent of energy/protein needs met: Prescribed Cardiac/Consistent Carbohydrates Diet provides for energy/protein needs (1, 977 Kcal/86 g) during LOS. Nutrition Intervention Follow-Up By: 02/05/22 Additional Comments Nutrition education will be provided at F/U, if feasible. Continue monitoring food tolerance, %PO intake of meals , and BM.
--- NOTE | 2022-01-29 17:32 | Vascular Lab Report ---
DUPLEX DOPPLER LOWER EXTREMITY VEINS, RIGHT INDICATION / CLINICAL INFORMATION: dvt. TECHNIQUE: Duplex doppler imaging was performed through the veins of the right lower extremity using venous compression and other maneuvers. COMPARISON: None available. FINDINGS: RIGHT COMMON FEMORAL VEIN: Negative. RIGHT FEMORAL VEIN: Negative. RIGHT POPLITEAL VEIN: Negative. RIGHT CALF VEINS: Negative. ADDITIONAL FINDINGS: None. IMPRESSION: 1. No sonographic evidence for DVT in the right lower extremity. Signer Name: Daren Ramirez MD Signed: 01/29/2022 5:28 PM Workstation Name: [id number]
[2022-01-29] MEDS: BUDESONIDE 0.5 MG/2 ML NEBU IH SCH (20:56)
[2022-01-29] MEDS: ARFORMOTEROL 15 MCG/2 ML NEBU IH SCH (20:56)
[2022-01-29] MEDS: MONTELUKAST 10 MG TAB PO SCH (22:24)
--- NOTE | 2022-01-30 01:32 | Consultation ---
DATE OF CONSULTATION: 01/29/2022 PULMONARY CRITICAL CARE CONSULT NOTE CONSULTING PHYSICIAN: [place]. Laurie Lynn NP REASON FOR CONSULTATION: Hypertensive emergency. CHIEF COMPLAINT AND HISTORY OF PRESENT ILLNESS: The patient is a now 61-year-old -[place] female, morbidly obese, known history of chronic obstructive pulmonary disease and CHF, who presented to the Emergency Room complaining of shortness of breath. According to her, she had falling at home and lay on the floor for about 12 hours before she was found by neighbors. When she got to the Emergency Room, she was tripoding using accessory muscles of respirations. She stated she had been compliant with all her medications at home, but her legs have been swelling up on her for the preceding week. She also mentioned she had some episodes of vomiting while lying on the floor, but denied any overt aspiration. In the Emergency Room, she was evaluated and amongst other things she was found to have elevated blood pressures with systolics in the 200s and diastolics in the low 100s. She was admitted to the intensive care unit on a Cardene drip and we are asked to assist with management. When I stopped by to see her, she was feeling a little bit better. She stated that she had done a lot of diuresis and felt much better with that. She also finally received some bronchodilator treatments and felt her breathing was much easier. She denied fevers or chills prior to the episode of a ground level fall. She denies any obvious trauma or fractures. She declines x-ray of her leg in particular, but she states that is just due to water collecting in her legs and she has dealt with that before. With regard to tobacco use/abuse history, she states she is still smoking, but only about 2-3 sticks a day and she has been continuing to work to cut down. She over her lifetime that she has a 10+ pack year tobacco smoking history. This really is as much of the history of presentation as I have. PAST MEDICAL HISTORY: COPD, CHF, morbid obesity, arthritis, coronary artery disease, hypertension, history of a pulmonary emboli that was treated with anticoagulation at that time, history of gout. PAST SURGICAL HISTORY: She has had an appendectomy, cholecystectomy, hysterectomy and tonsillectomy. MEDICATIONS: She was on at the time I stopped by to see according to the medication administration record included the following: Tylenol 650 mg p.o. q.4 hours p.r.n. mild pain or fevers, albuterol 2.5 mg nebulized q. 4 hours p.r.n. shortness of breath, Brovana 15 mcg nebulized b.i.d. p.o. q.12 hours, aspirin 81 mg p.o. daily, Lipitor 40 mg p.o. at bedtime, Pulmicort 0.5 mg nebulized q.12 hours, Celexa 20 mg p.o. daily, Plavix 75 mg p.o. daily, Pepcid 20 mg p.o. daily, Lasix 40 mg IV b.i.d., hydralazine 10 mg IV q.4 hours p.r.n. elevated blood pressures and 100 mg p.o. q.8 hours scheduled, insulin via sliding scale, Imdur 60 mg p.o. daily, metoprolol 50 mg p.o. b.i.d., Singulair 10 mg p.o. at bedtime, morphine sulfate 2 mg IV q.4 hours p.r.n. moderate pain and 4 mg IV q.4 hours p.r.n. severe pain, daily multivitamin, Zofran 4 mg IV q. 8 hours p.r.n. nausea and vomiting and Diovan 160 mg p.o. b.i.d. ALLERGIES: PENICILLIN, nature of this allergy is unknown. DIET: Morbidly obese lady. She stated that she has gained some weight in the preceding week as her legs have been swelling up. FAMILY AND SOCIAL HISTORY: Lives in the community, has about a 10+ pack year tobacco smoking history. Denies current alcohol, illicit drug use or abuse. She still smokes about cigarettes per day. FAMILY HISTORY: Otherwise, noncontributory. REVIEW OF SYSTEMS: She denies any loss of consciousness at home. She stated that she was just so weak and had run out of oxygen and then she started to see some black spots while she was trying to stand out, fell down, but she denies loss of consciousness. She denies any new-onset weakness. She denies any new-onset seizures. Denies gross hematochezia or melena. Denies gross hematuria or dysuria. No episodes of diarrhea. No hematemesis. She has had some emesis though that was nonbloody. Denies heat or cold intolerance. Complete 13-system review of systems obtained. Pertinent positives and/or negatives as in body of history above, otherwise they are noncontributory. PHYSICAL EXAMINATION: VITAL SIGNS: On examination at presentation in the Emergency Room revealed vital signs shows that she was afebrile, temperature 97.5 degrees Fahrenheit, pulse of 89, respiratory rate of 22, blood pressure 168/144, O2 sats 100%, inspired oxygen concentration at that time was not recorded. When I stopped by to see her, her O2 sats were 98% and that was on 3 liters nasal cannula. GENERAL: Again, general exam, she is an elderly, morbidly obese female. Normocephalic, atraumatic. Talking to me in full sentences, but with mildly increased respiratory effort at rest. HEAD, EYES, EARS, NOSE AND THROAT: Anicteric. No conjunctival erythema. Oropharynx was moist. No gross jugular venous distention. No thyromegaly. She does have a large neck circumference. Grossly, there are no palpable lymph nodes in the supraclavicular or submandibular lymph node chains. LUNGS: Auscultation of both lung low significant mostly for diminished bilateral breath sounds. Faint inspiratory crackles in the bases. No wheezing. HEART: Sounds 1 and 2 are heard. At the time of my evaluation, regular rate and rhythm without overt rubs or murmurs. ABDOMEN: Soft, full, protuberant. Bowel sounds are positive, nontender, no palpable hepatosplenomegaly. EXTREMITIES: Without overt digital clubbing or cyanosis. She has 2-3+ bipedal pitting edema. Pedal pulses are 2+ bilaterally. NEUROLOGIC: Pupils are equal, round, about 4 mm, reactive to light. Extraocular muscle movements are intact. She moves all 4 extremities spontaneously, just weak and unable to move her legs well due to the swelling. SKIN: Normal turgor in the areas I examined without overt cellulitis or rash. Please see the wound care nurses' notes for full description of her skin. PSYCHIATRIC: Mood was normal. Affect was appropriate. She had intact judgment and insight. LABORATORY DATA: From my review are as follows: Admission white cell count 5800, hemoglobin 10.8, hematocrit 35.3, platelet count was 309. No band forms on the manual differential. INR was 1.09. Serum sodium 143, potassium 3.7, chloride 104, bicarbonate 27, BUN 11, creatinine 0.7, glucose was 86. Liver function tests essentially within normal limits. Troponin within normal limits. BNP was elevated at 11,363. Urine drug screen was presumptive negative. No microbiology studies for my review. Chest x-ray shows gross cardiomegaly, bilateral increased interstitial markings, some of them chronic appearing, but also consistent with interstitial edema; however, compared to prior chest x-rays about the same, it is a lordotic film as well, so magnifying the cardiac silhouette. ASSESSMENT: 1. Ground level fall, etiology unknown. 2. Hypertensive urgency. 3. Acute on chronic pulmonary edema. 4. Acute exacerbation of chronic obstructive pulmonary disease. 5. Acute on chronic hypoxemic respiratory failure. 6. History of coronary artery disease. 7. History of diabetes. 8. Morbid obesity. 9. History of medication noncompliance. PLAN: I do feel her fall was due to the hypoxemia. She had clearly run out of home oxygen and is on baseline home oxygen. She vehemently denies any loss of consciousness. She denies any headaches. She denies any trauma to her head. I have taken a second look around her scalpel and no obvious injuries to the forehead or scalp. We will follow her clinically at this point. We will continue diuresis. I do believe that the main issue despite the chest x-ray picture is a lordotic film, so it makes it to compare an apple and oranges compared to the last x-rays. We should continue the diuresis as ordered while monitoring electrolytes and inputs and outputs. She seems to have gotten some good diuresis. According to her, oxygen will be weaned to keep sats greater than or equal to about 90%. Aspiration precautions will be maintained. I will offer her bilevel positive airway pressure ventilation therapy if she tolerates it. I will go back, I do believe she has a history of obstructive sleep apnea and see if she has had any issues with BiPAP intolerance. She does have a history of obstructive sleep apnea. So we will offer her bilevel positive airway pressure ventilation therapy at bedtime 16/8 with a backup rate of 10. Cardiology evaluation will be at the behest of the attending physician. I really do not see any empiric need for antibiotics at this time. Chronic disease medications should be reinstituted. I should mention Cardene drip will be weaned off as her oral medications kick in. Overall the blood pressure should improve now that she is not in significant respiratory extremis. She is on GI prophylaxis with Pepcid. I will be putting her on DVT prophylaxis with Lovenox 40 mg subQ b.i.d. Flu and pneumonia vaccination will be addressed per protocol. Thank you very much for the consult. We will follow along and make further recommendations as picture progresses/becomes clearer. She is critically ill on life-sustaining interventions including the Cardene drip, at very high risk of from cardiopulmonary system decompensation. At this time, I spent about 35 minutes of critical care time without overlap and excluding any procedural time that may be necessary. If she continues to show improvement, we will get her off the Cardene drip. She will be transferred to the medical floor. TID: [id number] RECEIPT: [id number] KAYLA/ANNA
[2022-01-30] MEDS: FUROSEMIDE 40 MG/4 ML INJ IV SCH ×2 (06:16→17:28)
[2022-01-30] MEDS: hydrALAZINE 100 MG TAB PO SCH ×3 (06:16→22:57)
--- NOTE | 2022-01-30 06:23 | Progress Note ---
Assessment and Plan Hypertensive urgency AE-CHF AE-COPD Acute on chronic hypoxemic respiratory failure CAD DM II Morbid obesity Ground level fall, etiology unknown. History of medication noncompliance - up-titrate antihypertensives to target per attending / cardiology - continue bronchodilators (PAIGE & LABA) re: COPD, with pulmonary hygiene per RT - no indication for systemic steroids Rx - continue inhaled corticosteroids - continue diuresis while monitoring I's & O's / electrolytes - follow clinically off AB's - NIV qhs re: ADAN / OHS with prn daytime use for SOB - continue accuchecks with glycemic control per SSI for target blood glucose of < 180 mg/dL; avoid hypoglycemia - continue to wean supplemental oxygen for target O2 sat's > 90% acutely - aspiration precautions - prn analgesia per pain score - Maintenance of sleep-wake cycle, avoid delirium - tobacco abstinence strongly counseled - G.I. & VTE prophylaxis - PT/OT/ROM exercises - mobility protocols for pressure ulcer prophylaxis - continue other care per attending / other consultants - discharge planning ongoing concurrently .... Re-evaluate in am & prn Subjective Date of service: 01/30/22 Principal diagnosis: HTNsive urgency; AE-CHF; AE-COPD; Ac on ch hypoxemic resp failure; Obesity Interval history: Patient is seen today for: Hypertensive urgency; AE-CHF; AE-COPD; Acute on chronic hypoxemic respiratory failure; CAD; DM II; Morbid obesity Seen and examined at bedside; 24hour events reviewed; nursing and respiratory care staff consulted; no adverse overnight events reported to me; resting peacefully in bed; BP's still on high side; denies acute chest pains or palpitations; No N/V/F/C Objective Vital Signs - 12hr 01/29/22 01/29/22 01/29/22 20:06 21:02 21:15 Temperature 97.6 F Pulse Rate 96 H Pulse Rate [ 87 Throughout] Respiratory 20 Rate Respiratory 15 Rate [ Throughout] Blood Pressure 175/98 O2 Sat by Pulse 96 99 Oximetry 01/29/22 01/29/22 01/29/22 22:00 22:24 22:25 Temperature Pulse Rate 90 90 Pulse Rate [ Throughout] Respiratory Rate Respiratory Rate [ Throughout] Blood Pressure O2 Sat by Pulse 99 Oximetry 01/30/22 01/30/22 01:14 05:27 Temperature 98.3 F Pulse Rate 78 61 Pulse Rate [ Throughout] Respiratory 18 Rate Respiratory Rate [ Throughout] Blood Pressure 187/120 163/96 O2 Sat by Pulse 100 99 Oximetry Constitutional: no acute distress, other (elderly obese female with mildly increased respiratory effort at rest) Eyes: non-icteric ENT: oropharynx moist Neck: supple, no lymphadenopathy, no JVD, other (large circumference) Effort: mildly labored Ascultation: Bilateral: diminished breath sounds Percussion: Bilateral: not dull Cardiovascular: regular rate and rhythm Gastrointestinal: normoactive bowel sounds, soft, non-tender, non-distended (protuberant) Integumentary: normal Extremities: no cyanosis, no edema, pulses normal, no ischemia or petechiae Neurologic: non-focal exam, pupils equal and round, CN II-XII normal, motor strength normal and Psychiatric: mood appropriate, affect normal CBC and BMP: 01/28/22 16:32 01/30/22 10:21 ABG, PT/INR, D-dimer: PT/INR, D-dimer PT 15.3 Sec. (12.2-14.9) H 01/28/22 16:32 INR 1.09 (0.87-1.13) 01/28/22 16:32 Abnormal lab findings: Abnormal Labs 01/28/22 01/28/22 01/28/22 16:32 16:32 16:32 RBC 5.13 H MCV 69 L MCH 21 L RDW 25.0 H Seg Neuts % (Manual) 88.0 H Lymphocytes % (Manual) 6.0 L Lymphocytes # (Manual) 0.3 L PT 15.3 H Glucose POC Glucose ALT 6 L Alkaline Phosphatase 221 H CK-MB (CK-2) Rel Index NT-Pro-B Natriuret Pep Lipase 12 L 01/28/22 01/28/22 01/29/22 16:32 16:32 04:07 RBC MCV MCH RDW Seg Neuts % (Manual) Lymphocytes % (Manual) Lymphocytes # (Manual) PT Glucose 210 H POC Glucose ALT Alkaline Phosphatase CK-MB (CK-2) Rel Index 8.2 H NT-Pro-B Natriuret Pep 51613 H Lipase 01/29/22 01/29/22 01/29/22 07:31 11:08 16:05 RBC MCV MCH RDW Seg Neuts % (Manual) Lymphocytes % (Manual) Lymphocytes # (Manual) PT Glucose POC Glucose 164 H 162 H 133 H ALT Alkaline Phosphatase CK-MB (CK-2) Rel Index NT-Pro-B Natriuret Pep Lipase 01/29/22 21:53 RBC MCV MCH RDW Seg Neuts % (Manual) Lymphocytes % (Manual) Lymphocytes # (Manual) PT Glucose POC Glucose 166 H ALT Alkaline Phosphatase CK-MB (CK-2) Rel Index NT-Pro-B Natriuret Pep Lipase Allied health notes reviewed: nursing
[2022-01-30] MEDS: INSULIN LISPRO 100 UNIT/ML SUB-Q SCH ×4 (08:26→22:57)
[2022-01-30] MEDS ORDERED: cloNIDine 0.1 MG TAB PO PRN (09:00)
[2022-01-30] MEDS: BUDESONIDE 0.5 MG/2 ML NEBU IH SCH ×2 (09:05→20:58)
[2022-01-30] MEDS: ARFORMOTEROL 15 MCG/2 ML NEBU IH SCH ×2 (09:05→20:58)
[2022-01-30] MEDS: ASPIRIN EC 81 MG TAB PO SCH (09:30)
[2022-01-30] MEDS: NIFEdipine XL 90 MG TAB PO SCH (09:30)
[2022-01-30] MEDS: METOPROLOL TARTRATE 50 MG TAB PO SCH ×2 (09:30→22:57)
[2022-01-30] MEDS: FAMOTIDINE 20 MG TAB PO SCH (09:30)
[2022-01-30] MEDS: CLOPIDOGREL 75 MG TAB PO SCH (09:30)
[2022-01-30] MEDS: VALSARTAN 160MG TAB PO SCH ×2 (09:37→22:57)
[2022-01-30] MEDS: CITALOPRAM 20 MG TAB PO SCH (09:38)
[2022-01-30] MEDS: MORPHINE 2 MG/1 ML INJ IV PRN ×3 (10:27→22:58)
[2022-01-30 11:20] LABS: BUN/Creatinine Ratio 29; Blood Urea Nitrogen 23 mg/dL (7-17); Calcium 9.2 mg/dL (8.4-10.2); Hemolysis Index 0
--- NOTE | 2022-01-30 12:09 | Progress Note ---
Assessment and Plan This patient is a 61 y/o female with a PMHX of CAD s/p PCI in 2019 on DAPT, DM, HFpEF(EF50-55%), HTN, COPD on home 02, medical noncompliance who presented to ED with a complaint that she fell at home. S/p fall hypertensive urgency Acute on chronic HFpEF Acute on chronic hypoxic respiratory failure- Currently on NC COPD- on home O2 HTN CAD s/p PCI 2018 DM Obesity Medical noncompliance Echo 01/08/2022-EF 50-55%. Mild concentric LVH. Right ventricle mildly dilated. Right ventricle systolic function is grossly normal. Extremities dilated. Moderate to severe tricuspid regurgitation. C 06/20/2018 successful PCI with intravascular ultrasound of the ramus with DIANELYS which was 100% culprit vessel with DIANELYS. Left main patent, LAD patent. RCA mmoderate to severe tortuosity with mid stent patent, circumflex pateent, ARIELA 50% with sintia 100% with successful PCI. Acute diastolic dysfunction Medications on Previous admissions: Metoprolol 50 mg p.o. twice daily, valsartan 160 mg p.o. twice daily, nifedipine 30 mg p.o. daily, hydralazine 100 mg p.o. 3 times daily, clonidine 0.2 mg p.o. twice daily, Imdur 60 mg p.o. daily Plan: Continue metoprolol 50mg PO BID, Imdur 60mg QD valsartan 160mg PO BID and hydralazine 100mg PO TID Patient has been initiated on nifedipine 90 mg p.o. daily If BP remains uncontrolled will initiate clonidine 0.1mg PO BID, Continue DAPT with aspirin and Plavix BNP noted to be elevated agree with diuresis with Lasix IV 40 mg twice daily Strict I& O's, daily weights, and repeat BMP in the a.m. with close monitoring of renal function Patient noted to have edema/hematoma on right lower extremity greater than left lower extremity. Venous Doppler study showed no DVT Discussed plan of care with patient's family member who verbalized understanding and agreement Discussed importance of medication compliance and importance of follow-up appo intment with patient. Patient verbalized understanding and acknowledgment Patient seen in conjunction with Dr. Hernandez who agrees with this plan of care. - Patient Problems (1) COPD exacerbation Current Visit: Yes Status: Acute (2) Hypertensive emergency Current Visit: Yes Status: Acute (3) Medical non-compliance Current Visit: Yes Status: Chronic (4) Acute and chronic respiratory failure Current Visit: No Status: Acute Qualifiers: Respiratory failure complication: hypoxia Qualified Code(s): J96.21 - Acute and chronic respiratory failure with hypoxia (5) Acute on chronic diastolic heart failure Current Visit: No Status: Acute (6) Cardiomyopathy Current Visit: No Status: Acute (7) Morbid obesity with body mass index of 40.0-49.9 Current Visit: No Status: Acute (8) Obesity hypoventilation syndrome Current Visit: No Status: Acute (9) CAD (coronary artery disease) Current Visit: No Status: Chronic Qualifiers: Coronary Disease-Associated Artery/Lesion type: [place] artery [place] vs. transplanted heart: [place] heart Associated angina: without angina Qualified Code(s): I25.10 - Atherosclerotic heart disease of [place] coronary artery without angina pectoris (10) Diabetes mellitus, type 2 Current Visit: No Status: Chronic (11) Hyperlipidemia Current Visit: No Status: Chronic Qualifiers: Hyperlipidemia type: mixed hyperlipidemia Qualified Code(s): E78.2 - Mixed hyperlipidemia (12) ADAN (obstructive sleep apnea) Current Visit: No Status: Chronic Subjective Date of service: 01/30/22 Principal diagnosis: HTNsive urgency; AE-CHF; AE-COPD; Ac on ch hypoxemic resp failure; Obesity Interval history: Patient transferred to telemetry. Patient resting in bed in no acute distress Sinus 70s on monitor Objective Vital Signs Temp Pulse Pulse Resp Resp BP Pulse Ox 01/30/22 08:46 98.1 F 81 18 187/92 91 01/30/22 05:27 98.3 F 61 18 163/96 99 01/30/22 01:14 78 187/120 100 01/29/22 22:25 90 01/29/22 22:24 90 01/29/22 22:00 99 01/29/22 21:15 87 15 01/29/22 21:02 99 01/29/22 20:06 97.6 F 96 H 20 175/98 96 01/29/22 17:30 93 H 22 144/96 95 01/29/22 17:00 98 H 16 161/97 95 01/29/22 16:30 92 H 18 163/100 93 01/29/22 16:29 97.7 F 01/29/22 16:00 90 20 170/92 95 01/29/22 15:30 86 18 183/156 93 01/29/22 15:28 19 01/29/22 15:00 71 11 L 169/113 94 01/29/22 14:30 71 12 177/108 94 01/29/22 14:00 96 H 13 184/105 95 01/29/22 13:30 96 H 25 H 184/112 89 01/29/22 13:00 84 13 181/102 95 01/29/22 12:30 86 13 175/98 95 - Physical Examination General: No Apparent Distress HEENT: Positive: PERRL Neck: Positive: trachea midline Cardiac: Positive: Reg Rate and Rhythm Lungs: Positive: Normal Breath Sounds Neuro: Positive: Grossly Intact Abdomen: Positive: Soft Skin: Negative: Rash, Suspicious Lesions, Ulceration Extremities: Present: upper extr. pulses, edema (Right lower extremity greater than left lower extremity, possibly hematoma) - Labs and Meds Comprehensive Metabolic Panel 01/30/22 Range/Units 10:21 Sodium 141 (137-145) mmol/L Potassium 3.9 (3.6-5.0) mmol/L Chloride 100.6 (98-107) mmol/L Carbon Dioxide 31 H (22-30) mmol/L BUN 23 H (7-17) mg/dL Creatinine 0.8 (0.6-1.2) mg/dL Glucose 108 H (65-100) mg/dL Calcium 9.2 (8.4-10.2) mg/dL - Imaging and Cardiology Echo: report reviewed - Telemetry EKG Rhythm: Sinus Rhythm - EKG Sinus rhythms and dysrhythmias: sinus rhythm - Allied health notes Allied health notes reviewed: nursing
[2022-01-30] MEDS: hydrALAZINE 20 MG/1 ML INJ IV PRN (14:27)
[2022-01-30] MEDS: MULTIVITAMINS,THER W-MINERALS TAB PO SCH (14:28)
--- NOTE | 2022-01-30 16:05 | Progress Note ---
Assessment and Plan Assessment and plan: Interval history: This is 61-year-old female with COPD, CHF, PE, CAD s/p stent placement and noncompliance who presented to the emergency department on 01/28 with complaints of shortness of breath via EMS. Upon EMS arrival patient was tachypneic, not on any oxygen tripod positioned and using accessory muscles for respirations and SPO2 was 92% on room air. Patient also noted that she fell at home and was on the floor for quite some time before getting help to get up from the floor. Upon arrival to the emergency department patient's blood pressure was in the 200s over 100s and she did not respond to IV hydralazine and metoprolol and was placed on a Cardene drip and CXR showed CSF exacerbation. Patient was admitted to the hospitalist service with consult to cardiology with malignant hypertensive urgency and CHF exacerbation. Hospital course to date: 01/29: Patient has been weaned off of Cardene drip and will be started on p.o. metoprolol, hydralazine, Imdur and valsartan. PT/OT consulted. We will obtain right lower extremity ultrasound for swelling to rule out DVT. Patient will transfer to telemetry. 01/30: Swelling improved in lower extremity. LE US negative for DVT. Dispo: NICK per PT notes. D/w CM who have initiated work on referral/auth process. Assessment and Plan: Neuro: Noncompliance -Reorientation as needed -Maintain sleep-wake cycle -As needed analgesia -Medical compliance strongly encouraged -Continue home Celexa Cardiac: Hypertensive urgency, acute on chronic diastolic heart failure, CAD s/p stent (06/2018) -Cardiology consulted, appreciate recommendations -Blood pressure monitoring per protocol -S/p Cardene drip -P.o. hydralazine, metoprolol, Imdur, valsartan -Admit proBNP 11,363 -Lasix 40 mg twice daily -Plavix, aspirin, Lipitor -01/09/2020 echocardiogram shows EF of 50 to 55% -Of note: Echo 09/15/2020-LVEF is 50 to 55%. LV SF is normal. Moderate LVH. RV SF is normal. Moderate pulmonary hypertension cannot be excluded due to poor regurgitant envelope [facility] 06/20/2018 successful PCI with intravascular ultrasound of the ramus with DIANELYS which was 100% culprit vessel with DIANELYS. Left main patent, LAD patent. RCA mmoderate to severe tortuosity with mid stent patent, circumflex pateent, ARIELA 50% with sintia 100% with successful PCI. Acute diastolic dysfunction Echo 03/25/2021 EF 50 to 55%, moderate concentric left ventricular hypertrophy. Right ventricle mildly dilated, right ventricle hypokinetic. Left atrium moderately dilated right atrium mildly dilated. Mild to moderate tricuspid regurgitation. Moderate pulmonary hypertension. Respiratory: Acute on chronic hypoxic respiratory failure (2 L nasal cannula at home), current nicotine abuse -Initially presented with shortness of breath -CCM consulted, appreciate recommendations -Continue nasal cannula -SPO2 monitor per protocol -Supplemental oxygen as needed -Pulmonary hygiene -Continue Brovana, Singulair, Pulmicort -Tobacco cessation counseling provided GI: Morbid obesity -24 hours +38 mL -PPI -cc cardiac diet : NAD -Monitor intake and output -Renally dose medications -Avoid nephrotoxic medications ID: NAD -f/u blood culture -Monitor WBC and temperature curve Endo: Hyperglycemia -Avoid hypoglycemia -SSI -Accu-Cheks ACHS -hbg a1c pending Heme: r/o DVT, h/o PE -Left lower extremity Doppler ultrasound pending swelling -Trend CBC -Transfuse hemoglobin less than 7 -SCDs to BLE while in bed History Interval history: No acute complaints. States her LE swelling has decreased. Hospitalist Physical - Physical exam Narrative exam: General appearance: Present: no acute distress, obese - EENT Eyes: Present: PERRL, EOM intact ENT: hearing intact, clear oral mucosa, dentition normal - Neck Neck: Present: normal ROM - Respiratory Respiratory effort: normal Respiratory: bilateral: CTA, diminished - Cardiovascular Rhythm: regular Heart Sounds: Present: S1 & S2. Absent: systolic murmur, diastolic murmur - Extremities Extremities: no ischemia, pulses intact, pulses symmetrical Extremity abnormal: edema Peripheral Pulses: within normal limits - Abdominal General gastrointestinal: soft, non-tender, non-distended, normal bowel sounds - Integumentary Integumentary: Present: warm, dry - Psychiatric Psychiatric: cooperative - Neurologic Neurologic: CNII-XII intact, no focal deficits, moves all extremities - Allied Health Allied health notes reviewed: nursing, RT, social work - Constitutional Vitals: Temp Pulse Resp BP Pulse Ox 98.1 F 80 18 197/96 97 01/30/22 08:46 01/30/22 14:30 01/30/22 14:30 01/30/22 14:30 01/30/22 14:30 General appearance: Present: no acute distress, obese HEART Score - HEART Score Troponin: Troponin T < 0.010 ng/mL (0.00-0.029) 01/28/22 16:32 Results - Labs CBC & Chem 7: 01/28/22 16:32 01/30/22 10:21 Labs: Laboratory Last Values WBC 5.8 K/mm3 (4.5-11.0) 01/28/22 16:32 RBC 5.13 M/mm3 (3.65-5.03) H 01/28/22 16:32 Hgb 10.8 gm/dl (10.1-14.3) 01/28/22 16:32 Hct 35.3 % (30.3-42.9) 01/28/22 16:32 MCV 69 fl (79-97) L 01/28/22 16:32 MCH 21 pg (28-32) L 01/28/22 16:32 MCHC 31 % (30-34) 01/28/22 16:32 RDW 25.0 % (13.2-15.2) H 01/28/22 16:32 Plt Count 309 K/mm3 (140-440) 01/28/22 16:32 Add Manual Diff Complete 01/28/22 16:32 Total Counted 100 01/28/22 16:32 Seg Neuts % (Manual) 88.0 % (40.0-70.0) H 01/28/22 16:32 Band Neutrophils % 0 % 01/28/22 16:32 Lymphocytes % (Manual) 6.0 % (13.4-35.0) L 01/28/22 16:32 Reactive Lymphs % (Man) 0 % 01/28/22 16:32 Monocytes % (Manual) 5.0 % (0.0-7.3) 01/28/22 16:32 Eosinophils % (Manual) 1.0 % (0.0-4.3) 01/28/22 16:32 Basophils % (Manual) 0 % (0.0-1.8) 01/28/22 16:32 Metamyelocytes % 0 % 01/28/22 16:32 Myelocytes % 0 % 01/28/22 16:32 Promyelocytes % 0 % 01/28/22 16:32 Blast Cells % 0 % 01/28/22 16:32 Nucleated RBC % Not Reportable 01/28/22 16:32 Seg Neutrophils # Man 5.1 K/mm3 (1.8-7.7) 01/28/22 16:32 Band Neutrophils # 0.0 K/mm3 01/28/22 16:32 Lymphocytes # (Manual) 0.3 K/mm3 (1.2-5.4) L 01/28/22 16:32 Abs React Lymphs (Man) 0.0 K/mm3 01/28/22 16:32 Monocytes # (Manual) 0.3 K/mm3 (0.0-0.8) 01/28/22 16:32 Eosinophils # (Manual) 0.1 K/mm3 (0.0-0.4) 01/28/22 16:32 Basophils # (Manual) 0.0 K/mm3 (0.0-0.1) 01/28/22 16:32 Metamyelocytes # 0.0 K/mm3 01/28/22 16:32 Myelocytes # 0.0 K/mm3 01/28/22 16:32 Promyelocytes # 0.0 K/mm3 01/28/22 16:32 Blast Cells # 0.0 K/mm3 01/28/22 16:32 WBC Morphology Not Reportable 01/28/22 16:32 Hypersegmented Neuts Not Reportable 01/28/22 16:32 Hyposegmented Neuts Not Reportable 01/28/22 16:32 Hypogranular Neuts Not Reportable 01/28/22 16:32 Smudge Cells Not Reportable 01/28/22 16:32 Toxic Granulation Not Reportable 01/28/22 16:32 Toxic Vacuolation Not Reportable 01/28/22 16:32 Dohle Bodies Not Reportable 01/28/22 16:32 Pelger-Huet Anomaly Not Reportable 01/28/22 16:32 Juan Rods Not Reportable 01/28/22 16:32 Platelet Estimate Consistent w auto 01/28/22 16:32 Clumped Platelets Not Reportable 01/28/22 16:32 Plt Clumps, EDTA Not Reportable 01/28/22 16:32 Large Platelets Not Reportable 01/28/22 16:32 Giant Platelets Few 01/28/22 16:32 Platelet Satelliting Not Reportable 01/28/22 16:32 Plt Morphology Comment Not Reportable 01/28/22 16:32 RBC Morphology Not Reportable 01/28/22 16:32 Dimorphic RBCs Not Reportable 01/28/22 16:32 Polychromasia Not Reportable 01/28/22 16:32 Hypochromasia 2+ 01/28/22 16:32 Poikilocytosis Not Reportable 01/28/22 16:32 Anisocytosis 2+ 01/28/22 16:32 Microcytosis 2+ 01/28/22 16:32 Macrocytosis Not Reportable 01/28/22 16:32 Spherocytes Not Reportable 01/28/22 16:32 Pappenheimer Bodies Not Reportable 01/28/22 16:32 Sickle Cells Not Reportable 01/28/22 16:32 Target Cells Few 01/28/22 16:32 Tear Drop Cells Not Reportable 01/28/22 16:32 Ovalocytes Few 01/28/22 16:32 Helmet Cells Not Reportable 01/28/22 16:32 [place] Bodies Not Reportable 01/28/22 16:32 Armstrong Rings Not Reportable 01/28/22 16:32 Cranberry Cells Not Reportable 01/28/22 16:32 Bite Cells Not Reportable 01/28/22 16:32 Crenated Cell Not Reportable 01/28/22 16:32 Elliptocytes Few 01/28/22 16:32 Acanthocytes (Spur) Not Reportable 01/28/22 16:32 Rouleaux Not Reportable 01/28/22 16:32 Hemoglobin C Crystals Not Reportable 01/28/22 16:32 Schistocytes Not Reportable 01/28/22 16:32 Malaria parasites Not Reportable 01/28/22 16:32 Didier Bodies Not Reportable 01/28/22 16:32 Hem Pathologist Commnt No 01/28/22 16:32 PT 15.3 Sec. (12.2-14.9) H 01/28/22 16:32 INR 1.09 (0.87-1.13) 01/28/22 16:32 Sodium 141 mmol/L (137-145) 01/30/22 10:21 Potassium 3.9 mmol/L (3.6-5.0) 01/30/22 10:21 Chloride 100.6 mmol/L (98-107) 01/30/22 10:21 Carbon Dioxide 31 mmol/L (22-30) H 01/30/22 10:21 Anion Gap 13 mmol/L 01/30/22 10:21 BUN 23 mg/dL (7-17) H 01/30/22 10:21 Creatinine 0.8 mg/dL (0.6-1.2) 01/30/22 10:21 Estimated GFR > 60 ml/min 01/30/22 10:21 BUN/Creatinine Ratio 29 % 01/30/22 10:21 Glucose 108 mg/dL (65-100) H 01/30/22 10:21 POC Glucose 133 mg/dL (70-105) H 01/30/22 07:39 Hemoglobin A1c 6.0 % (4-6) 01/28/22 16:32 Ketones Quantitative Negative (Negative) 01/28/22 16:32 Lactic Acid 1.90 mmol/L (0.7-2.0) 01/28/22 16:32 Calcium 9.2 mg/dL (8.4-10.2) 01/30/22 10:21 Magnesium 2.00 mg/dL (1.7-2.3) 01/28/22 16:32 Total Bilirubin 0.60 mg/dL (0.1-1.2) 01/28/22 16:32 AST 11 units/L (5-40) 01/28/22 16:32 ALT 6 units/L (7-56) L 01/28/22 16:32 Alkaline Phosphatase 221 units/L (35-129) H 01/28/22 16:32 Total Creatine Kinase 34 units/L (30-135) 01/28/22 16:32 Total Creatine Kinase 39 units/L (30-135) 01/28/22 16:32 CK-MB (CK-2) 2.8 ng/mL (0.0-4.0) 01/28/22 16:32 CK-MB (CK-2) Rel Index 8.2 (0-4) H 01/28/22 16:32 Troponin T < 0.010 ng/mL (0.00-0.029) 01/28/22 16:32 NT-Pro-B Natriuret Pep 27936 pg/mL (0-900) H 01/28/22 16:32 Total Protein 7.8 g/dL (6.3-8.2) 01/28/22 16:32 Albumin 3.9 g/dL (3.9-5) 01/28/22 16:32 Albumin/Globulin Ratio 1.0 % 01/28/22 16:32 Lipase 12 units/L (13-60) L 01/28/22 16:32 Urine Color Yellow (Yellow) 01/28/22 17:02 Urine Turbidity Clear (Clear) 01/28/22 17:02 Specific Hammond (Man) 1.010 (1.003-1.030) 01/28/22 17:02 Ur Protein (Man) 1+ mg/dL (Negative) 01/28/22 17:02 Ur Ketones (Man) Negative (Negative) 01/28/22 17:02 Ur Nitrite (Man) Positive (Negative) 01/28/22 17:02 Urine Bilirubin (Man) Negative (Negative) 01/28/22 17:02 Leukocyte Esterase (Man) Negative (Negative) 01/28/22 17:02 Urine WBC (Auto) 4.0 /HPF (0.0-6.0) 01/28/22 17:02 Urine RBC (Auto) 1.0 /HPF (0.0-6.0) 01/28/22 17:02 Urine RBC (Manual) 1+ (Negative) 01/28/22 17:02 Urine Mucus Few /HPF 01/28/22 17:02 Urine Opiates Screen Presumptive negative 01/28/22 17:02 Urine Methadone Screen Presumptive negative 01/28/22 17:02 Ur Barbiturates Screen Presumptive negative 01/28/22 17:02 Ur Phencyclidine Scrn Presumptive negative 01/28/22 17:02 Ur Amphetamines Screen Presumptive negative 01/28/22 17:02 U Benzodiazepines Scrn Presumptive negative 01/28/22 17:02 Urine Cocaine Screen Presumptive negative 01/28/22 17:02 U Marijuana (THC) Screen Presumptive negative 01/28/22 17:02 Drugs of Abuse Note Disclamer 01/28/22 17:02 Fabian/IV: Voiding Method External Female Catheter Active Medications - Current Medications Current Medications: Generic Name Dose Route Start Last Admin Trade Name Freq PRN Reason Stop Dose Admin Acetaminophen 650 mg 01/28/22 23:53 Acetaminophen 325 Mg Tab PO Q4H PRN Pain MILD(1-3)/Fever >100.5/ALAS Albuterol 2.5 mg 01/29/22 09:17 Albuterol 2.5 Mg/3 Ml Nebu IH Q4HRT PRN Shortness Of Breath Arformoterol Tartrate 15 mcg 01/29/22 20:00 01/30/22 09:05 Arformoterol 15 Mcg/2 Ml Nebu IH 15 mcg Q12HRT ANN MARIE Administration Aspirin 81 mg 01/29/22 10:00 01/30/22 09:30 Aspirin Ec 81 Mg Tab PO 81 mg QDAY ANN MARIE Administration Atorvastatin Calcium 40 mg 01/29/22 22:00 01/29/22 22:25 Atorvastatin 40 Mg Tab PO 40 mg QHS ANN MARIE Administration Budesonide 0.5 mg 01/29/22 20:00 01/30/22 09:05 Budesonide 0.5 Mg/2 Ml Nebu IH 0.5 mg Q12HRT ANN MARIE Administration Citalopram Hydrobromide 20 mg 01/29/22 10:00 01/30/22 09:38 Citalopram 20 Mg Tab PO 20 mg QDAY ANN MARIE Administration Clonidine HCl 0.1 mg 01/30/22 09:00 Clonidine 0.1 Mg Tab PO Q4H PRN sbp> 160 Clopidogrel Bisulfate 75 mg 01/29/22 10:00 01/30/22 09:30 Clopidogrel 75 Mg Tab PO 75 mg QDAY ANN MARIE Administration Dextrose 0 ml 01/28/22 23:53 Dextrose 50% In Water (25gm) 50 Ml Syringe IV Q30MIN PRN Hypoglycemia Protocol Famotidine 20 mg 01/29/22 10:00 01/30/22 09:30 Famotidine 20 Mg Tab PO 20 mg DAILY ANN MARIE Administration Furosemide 40 mg 01/29/22 06:00 01/30/22 06:16 Furosemide 40 Mg/4 Ml Inj IV 40 mg BID@0600,1800 ANN MARIE Administration Hydralazine HCl 100 mg 01/29/22 14:00 01/30/22 15:42 Hydralazine 100 Mg Tab PO 100 mg Q8HR ANN MARIE Administration Hydralazine HCl 10 mg 01/29/22 13:15 01/30/22 14:27 Hydralazine 20 Mg/1 Ml Inj IV 10 mg Q4HR PRN Administration Hypertension Insulin Human Lispro 0 unit 01/29/22 07:30 01/30/22 12:06 Insulin Lispro 100 Unit/Ml SUB-Q Not Given ACHS [facility] Protocol Isosorbide Mononitrate 60 mg 01/29/22 10:00 01/30/22 09:30 Isosorbide Mononitrate Er 60 Mg Tab PO 60 mg QDAY ANN MARIE Administration Magnesium Hydroxide 30 ml 01/28/22 23:53 Magnesium Hydroxide (Mom) Oral Liqd Udc PO Q4H PRN Constipation Metoprolol Tartrate 50 mg 01/29/22 10:00 01/30/22 09:30 Metoprolol Tartrate 50 Mg Tab PO 50 mg BID ANN MARIE Administration Montelukast Sodium 10 mg 01/29/22 22:00 01/29/22 22:24 Montelukast 10 Mg Tab PO 10 mg QHS ANN MARIE Administration Morphine Sulfate 2 mg 01/28/22 23:53 01/30/22 10:27 Morphine 2 Mg/1 Ml Inj IV 2 mg Q4H PRN Administration Pain, Moderate (4-6) Morphine Sulfate 4 mg 01/28/22 23:53 01/29/22 02:32 Morphine 4 Mg/1 Ml Inj IV 4 mg Q4H PRN Administration Pain , Severe (7-10) Multivitamins/Minerals 1 each 01/29/22 10:00 01/30/22 14:28 Multivitamins,Ther W-Minerals Tab PO 1 each QDAY [facility] Administration Nifedipine 90 mg 01/30/22 10:00 01/30/22 09:30 Nifedipine Xl 90 Mg Tab PO 90 mg QDAY [facility] Administration Ondansetron HCl 4 mg 01/28/22 23:53 01/29/22 15:28 Ondansetron 4 Mg/2 Ml Inj IV 4 mg Q8H PRN Administration Nausea And Vomiting Sodium Chloride 10 ml 01/29/22 10:00 01/30/22 09:38 Sodium Chloride 0.9% 10 Ml Flush Syringe IV 10 ml BID ANN MARIE Administration Sodium Chloride 10 ml 01/28/22 23:53 Sodium Chloride 0.9% 10 Ml Flush Syringe IV PRN PRN LINE FLUSH Valsartan 160 mg 01/29/22 11:00 01/30/22 09:37 Valsartan 160mg Tab PO 160 mg BID ANN MARIE Administration Nutrition/Malnutrition Assess - Dietary Evaluation Nutrition/Malnutrition Findings: Nutrition Notes Start: 01/29/22 13:57 Freq: Status: Active Protocol: Document 01/29/22 13:57 FREDERICK (Rec: 01/29/22 14:08 FREDERICK [id number]) Nutrition Notes Need for Assessment generated from: MD Order,Education Initial or Follow up Brief Note Current Diagnosis COPD,Coronary Artery Disease, Hypertension Other Pertinent Diagnosis CHF, DVT, PE, Cardiomyopathy. Current Diet Cardiac/Consistent Carbohydrates Diet (since B ). Height 5 ft 11 in Weight 149.685 kg Mercedes Body Weight (kg) 70.45 BMI 46.0 Intake Prior to Admission Good Weight change and time frame Pt denies having loss body weight TWINE WINDER. Weight Status Morbidly Obese Subjective/Other Information RD consult for nutrition education assessment. No reports available on Pt's PO intake of meals at the time , will assess at F/U. Pt is on Nasal Cannula, O2 saturation @ 94%, according to Physical Assessment History notes. Pt has caries and missing teeth, according to Physical Assessment History notes. Pt presents Bilateral-LE Pitting Edema 2+, according to Physical Assessment History notes. Pt still in critical condition , not a candidate for Nutrition Education at the time, will assess feasibility on F/U. Percent of energy/protein needs met: Prescribed Cardiac/Consistent Carbohydrates Diet provides for energy/protein needs (1, 977 Kcal/86 g) during LOS. Nutrition Intervention Follow-Up By: 02/05/22 Additional Comments Nutrition education will be provided at F/U, if feasible. Continue monitoring food tolerance, %PO intake of meals , and BM.
[2022-01-30] MEDS: ACETAMINOPHEN 325 MG TAB PO PRN (17:28)
[2022-01-30] MEDS ORDERED: LORazepam 0.5 MG TAB PO ONE (20:00)
[2022-01-30] MEDS: MONTELUKAST 10 MG TAB PO SCH (22:57)
[2022-01-31] MEDS: FUROSEMIDE 40 MG/4 ML INJ IV SCH ×2 (06:12→17:12)
[2022-01-31] MEDS: hydrALAZINE 100 MG TAB PO SCH ×3 (06:13→21:26)
[2022-01-31 06:35] LABS: Blood Urea Nitrogen 22 mg/dL (7-17); Calcium 8.6 mg/dL (8.4-10.2); Hemolysis Index 6
[2022-01-31 06:41] LABS: BUN/Creatinine Ratio 31
[2022-01-31] MEDS: INSULIN LISPRO 100 UNIT/ML SUB-Q SCH ×4 (07:30→21:33)
[2022-01-31] MEDS: BUDESONIDE 0.5 MG/2 ML NEBU IH SCH ×2 (08:44→21:32)
[2022-01-31] MEDS: ARFORMOTEROL 15 MCG/2 ML NEBU IH SCH ×2 (08:44→21:32)
--- NOTE | 2022-01-31 08:46 | Progress Note ---
Assessment and Plan Assessment and plan: Interval history: This is 61-year-old female with COPD, CHF, PE, CAD s/p stent placement and noncompliance who presented to the emergency department on 01/28 with complaints of shortness of breath via EMS. Upon EMS arrival patient was tachypneic, not on any oxygen tripod positioned and using accessory muscles for respirations and SPO2 was 92% on room air. Patient also noted that she fell at home and was on the floor for quite some time before getting help to get up from the floor. Upon arrival to the emergency department patient's blood pressure was in the 200s over 100s and she did not respond to IV hydralazine and metoprolol and was placed on a Cardene drip and CXR showed CSF exacerbation. Patient was admitted to the hospitalist service with consult to cardiology with malignant hypertensive urgency and CHF exacerbation. Hospital course to date: 01/29: Patient has been weaned off of Cardene drip and will be started on p.o. metoprolol, hydralazine, Imdur and valsartan. PT/OT consulted. We will obtain right lower extremity ultrasound for swelling to rule out DVT. Patient will transfer to telemetry. 01/30: Swelling improved in lower extremity. LE US negative for DVT. Dispo: [facility] per PT notes. D/w CM who have initiated work on referral/auth process. 01/31: significant urine OP. good response to diuresis. Improvement seen on exam, decresae in LE edema. Ordered BMP for tomorrow AM. Xanax prn anxiety and percocet prn mod pain as patient complaining of chest wall pain and anxiety associated with hospitalization . Pending placement to [facility]. Assessment and Plan: Neuro: Noncompliance, anxiety -Reorientation as needed -Maintain sleep-wake cycle -As needed analgesia -Medical compliance strongly encouraged -Continue home Celexa - xanax prn anxiety Cardiac: Hypertensive urgency, acute on chronic diastolic heart failure, CAD s/p stent (06/2018) -Cardiology consulted, appreciate recommendations -Blood pressure monitoring per protocol -S/p Cardene drip -P.o. hydralazine, metoprolol, Imdur, valsartan -Admit proBNP 11,363 -Lasix 40 mg twice daily -Plavix, aspirin, Lipitor -01/09/2020 echocardiogram shows EF of 50 to 55% -Of note: Echo 09/15/2020-LVEF is 50 to 55%. LV SF is normal. Moderate LVH. RV SF is normal. Moderate pulmonary hypertension cannot be excluded due to poor r egurgitant envelope [facility] 06/20/2018 successful PCI with intravascular ultrasound of the ramus with DIANELYS which was 100% culprit vessel with DIANELYS. Left main patent, LAD patent. RCA mmoderate to severe tortuosity with mid stent patent, circumflex pateent, ARIELA 50% with sintia 100% with successful PCI. Acute diastolic dysfunction Echo 03/25/2021 EF 50 to 55%, moderate concentric left ventricular hypertrophy. Right ventricle mildly dilated, right ventricle hypokinetic. Left atrium moderately dilated right atrium mildly dilated. Mild to moderate tricuspid regurgitation. Moderate pulmonary hypertension. Respiratory: Acute on chronic hypoxic respiratory failure (2 L nasal cannula at home), current nicotine abuse -Initially presented with shortness of breath -CCM consulted, appreciate recommendations -Continue nasal cannula -SPO2 monitor per protocol -Supplemental oxygen as needed -Pulmonary hygiene -Continue Brovana, Singulair, Pulmicort -Tobacco cessation counseling provided GI: Morbid obesity -24 hours +38 mL -PPI -cc cardiac diet : NAD -Monitor intake and output -Renally dose medications -Avoid nephrotoxic medications ID: NAD -f/u blood culture -Monitor WBC and temperature curve Endo: Hyperglycemia -Avoid hypoglycemia -SSI -Accu-Cheks ACHS -hbg a1c pending Heme: r/o DVT, h/o PE -Left lower extremity Doppler ultrasound pending swelling -Trend CBC -Transfuse hemoglobin less than 7 -SCDs to BLE while in bed History Interval history: No acute complaints .Resting comfortably on exam. Hospitalist Physical - Physical exam Narrative exam: General appearance: Present: no acute distress, obese - EENT Eyes: Present: PERRL, EOM intact ENT: hearing intact, clear oral mucosa, dentition normal - Neck Neck: Present: normal ROM - Respiratory Respiratory effort: normal Respiratory: bilateral: CTA, diminished - Cardiovascular Rhythm: regular Heart Sounds: Present: S1 & S2. Absent: systolic murmur, diastolic murmur - Extremities Extremities: no ischemia, pulses intact, pulses symmetrical Extremity abnormal: edema Peripheral Pulses: within normal limits - Abdominal General gastrointestinal: soft, non-tender, non-distended, normal bowel sounds - Integumentary Integumentary: Present: warm, dry - Psychiatric Psychiatric: cooperative - Neurologic Neurologic: CNII-XII intact, no focal deficits, moves all extremities - Allied Health Allied health notes reviewed: nursing, RT, social work - Constitutional Vitals: Temp Pulse Resp BP Pulse Ox 98.4 F 74 18 158/81 98 01/30/22 21:16 01/31/22 08:00 01/31/22 08:00 01/30/22 21:16 01/30/22 22:00 General appearance: Present: no acute distress, obese HEART Score - HEART Score Troponin: Troponin T < 0.010 ng/mL (0.00-0.029) 01/28/22 16:32 Results - Labs CBC & Chem 7: 01/28/22 16:32 01/31/22 05:32 Labs: Laboratory Last Values WBC 5.8 K/mm3 (4.5-11.0) 01/28/22 16:32 RBC 5.13 M/mm3 (3.65-5.03) H 01/28/22 16:32 Hgb 10.8 gm/dl (10.1-14.3) 01/28/22 16:32 Hct 35.3 % (30.3-42.9) 01/28/22 16:32 MCV 69 fl (79-97) L 01/28/22 16:32 MCH 21 pg (28-32) L 01/28/22 16:32 MCHC 31 % (30-34) 01/28/22 16:32 RDW 25.0 % (13.2-15.2) H 01/28/22 16:32 Plt Count 309 K/mm3 (140-440) 01/28/22 16:32 Add Manual Diff Complete 01/28/22 16:32 Total Counted 100 01/28/22 16:32 Seg Neuts % (Manual) 88.0 % (40.0-70.0) H 01/28/22 16:32 Band Neutrophils % 0 % 01/28/22 16:32 Lymphocytes % (Manual) 6.0 % (13.4-35.0) L 01/28/22 16:32 Reactive Lymphs % (Man) 0 % 01/28/22 16:32 Monocytes % (Manual) 5.0 % (0.0-7.3) 01/28/22 16:32 Eosinophils % (Manual) 1.0 % (0.0-4.3) 01/28/22 16:32 Basophils % (Manual) 0 % (0.0-1.8) 01/28/22 16:32 Metamyelocytes % 0 % 01/28/22 16:32 Myelocytes % 0 % 01/28/22 16:32 Promyelocytes % 0 % 01/28/22 16:32 Blast Cells % 0 % 01/28/22 16:32 Nucleated RBC % Not Reportable 01/28/22 16:32 Seg Neutrophils # Man 5.1 K/mm3 (1.8-7.7) 01/28/22 16:32 Band Neutrophils # 0.0 K/mm3 01/28/22 16:32 Lymphocytes # (Manual) 0.3 K/mm3 (1.2-5.4) L 01/28/22 16:32 Abs React Lymphs (Man) 0.0 K/mm3 01/28/22 16:32 Monocytes # (Manual) 0.3 K/mm3 (0.0-0.8) 01/28/22 16:32 Eosinophils # (Manual) 0.1 K/mm3 (0.0-0.4) 01/28/22 16:32 Basophils # (Manual) 0.0 K/mm3 (0.0-0.1) 01/28/22 16:32 Metamyelocytes # 0.0 K/mm3 01/28/22 16:32 Myelocytes # 0.0 K/mm3 01/28/22 16:32 Promyelocytes # 0.0 K/mm3 01/28/22 16:32 Blast Cells # 0.0 K/mm3 01/28/22 16:32 WBC Morphology Not Reportable 01/28/22 16:32 Hypersegmented Neuts Not Reportable 01/28/22 16:32 Hyposegmented Neuts Not Reportable 01/28/22 16:32 Hypogranular Neuts Not Reportable 01/28/22 16:32 Smudge Cells Not Reportable 01/28/22 16:32 Toxic Granulation Not Reportable 01/28/22 16:32 Toxic Vacuolation Not Reportable 01/28/22 16:32 Dohle Bodies Not Reportable 01/28/22 16:32 Pelger-Huet Anomaly Not Reportable 01/28/22 16:32 Juan Rods Not Reportable 01/28/22 16:32 Platelet Estimate Consistent w auto 01/28/22 16:32 Clumped Platelets Not Reportable 01/28/22 16:32 Plt Clumps, EDTA Not Reportable 01/28/22 16:32 Large Platelets Not Reportable 01/28/22 16:32 Giant Platelets Few 01/28/22 16:32 Platelet Satelliting Not Reportable 01/28/22 16:32 Plt Morphology Comment Not Reportable 01/28/22 16:32 RBC Morphology Not Reportable 01/28/22 16:32 Dimorphic RBCs Not Reportable 01/28/22 16:32 Polychromasia Not Reportable 01/28/22 16:32 Hypochromasia 2+ 01/28/22 16:32 Poikilocytosis Not Reportable 01/28/22 16:32 Anisocytosis 2+ 01/28/22 16:32 Microcytosis 2+ 01/28/22 16:32 Macrocytosis Not Reportable 01/28/22 16:32 Spherocytes Not Reportable 01/28/22 16:32 Pappenheimer Bodies Not Reportable 01/28/22 16:32 Sickle Cells Not Reportable 01/28/22 16:32 Target Cells Few 01/28/22 16:32 Tear Drop Cells Not Reportable 01/28/22 16:32 Ovalocytes Few 01/28/22 16:32 Helmet Cells Not Reportable 01/28/22 16:32 Lozano-Beattie Bodies Not Reportable 01/28/22 16:32 Crowder Rings Not Reportable 01/28/22 16:32 [place] Cells Not Reportable 01/28/22 16:32 Bite Cells Not Reportable 01/28/22 16:32 Crenated Cell Not Reportable 01/28/22 16:32 Elliptocytes Few 01/28/22 16:32 Acanthocytes (Spur) Not Reportable 01/28/22 16:32 Rouleaux Not Reportable 01/28/22 16:32 Hemoglobin C Crystals Not Reportable 01/28/22 16:32 Schistocytes Not Reportable 01/28/22 16:32 Malaria parasites Not Reportable 01/28/22 16:32 Didier Bodies Not Reportable 01/28/22 16:32 Hem Pathologist Commnt No 01/28/22 16:32 PT 15.3 Sec. (12.2-14.9) H 01/28/22 16:32 INR 1.09 (0.87-1.13) 01/28/22 16:32 Sodium 139 mmol/L (137-145) 01/31/22 05:32 Potassium 4.0 mmol/L (3.6-5.0) 01/31/22 05:32 Chloride 99.9 mmol/L (98-107) 01/31/22 05:32 Carbon Dioxide 31 mmol/L (22-30) H 01/31/22 05:32 Anion Gap 12 mmol/L 01/31/22 05:32 BUN 22 mg/dL (7-17) H 01/31/22 05:32 Creatinine 0.7 mg/dL (0.6-1.2) 01/31/22 05:32 Estimated GFR > 60 ml/min 01/31/22 05:32 BUN/Creatinine Ratio 31 % 01/31/22 05:32 Glucose 80 mg/dL (65-100) 01/31/22 05:32 POC Glucose 115 mg/dL (70-105) H 01/30/22 22:25 Hemoglobin A1c 6.0 % (4-6) 01/28/22 16:32 Ketones Quantitative Negative (Negative) 01/28/22 16:32 Lactic Acid 1.90 mmol/L (0.7-2.0) 01/28/22 16:32 Calcium 8.6 mg/dL (8.4-10.2) 01/31/22 05:32 Magnesium 2.00 mg/dL (1.7-2.3) 01/28/22 16:32 Total Bilirubin 0.60 mg/dL (0.1-1.2) 01/28/22 16:32 AST 11 units/L (5-40) 01/28/22 16:32 ALT 6 units/L (7-56) L 01/28/22 16:32 Alkaline Phosphatase 221 units/L (35-129) H 01/28/22 16:32 Total Creatine Kinase 34 units/L (30-135) 01/28/22 16:32 Total Creatine Kinase 39 units/L (30-135) 01/28/22 16:32 CK-MB (CK-2) 2.8 ng/mL (0.0-4.0) 01/28/22 16:32 CK-MB (CK-2) Rel Index 8.2 (0-4) H 01/28/22 16:32 Troponin T < 0.010 ng/mL (0.00-0.029) 01/28/22 16:32 NT-Pro-B Natriuret Pep 94058 pg/mL (0-900) H 01/28/22 16:32 Total Protein 7.8 g/dL (6.3-8.2) 01/28/22 16:32 Albumin 3.9 g/dL (3.9-5) 01/28/22 16:32 Albumin/Globulin Ratio 1.0 % 01/28/22 16:32 Lipase 12 units/L (13-60) L 01/28/22 16:32 Urine Color Yellow (Yellow) 01/28/22 17:02 Urine Turbidity Clear (Clear) 01/28/22 17:02 Specific [place] (Man) 1.010 (1.003-1.030) 01/28/22 17:02 Ur Protein (Man) 1+ mg/dL (Negative) 01/28/22 17:02 Ur Ketones (Man) Negative (Negative) 01/28/22 17:02 Ur Nitrite (Man) Positive (Negative) 01/28/22 17:02 Urine Bilirubin (Man) Negative (Negative) 01/28/22 17:02 Leukocyte Esterase (Man) Negative (Negative) 01/28/22 17:02 Urine WBC (Auto) 4.0 /HPF (0.0-6.0) 01/28/22 17:02 Urine RBC (Auto) 1.0 /HPF (0.0-6.0) 01/28/22 17:02 Urine RBC (Manual) 1+ (Negative) 01/28/22 17:02 Urine Mucus Few /HPF 01/28/22 17:02 Urine Opiates Screen Presumptive negative 01/28/22 17:02 Urine Methadone Screen Presumptive negative 01/28/22 17:02 Ur Barbiturates Screen Presumptive negative 01/28/22 17:02 Ur Phencyclidine Scrn Presumptive negative 01/28/22 17:02 Ur Amphetamines Screen Presumptive negative 01/28/22 17:02 U Benzodiazepines Scrn Presumptive negative 01/28/22 17:02 Urine Cocaine Screen Presumptive negative 01/28/22 17:02 U Marijuana (THC) Screen Presumptive negative 01/28/22 17:02 Drugs of Abuse Note Disclamer 01/28/22 17:02 Fabian/IV: Voiding Method External Female Catheter Active Medications - Current Medications Current Medications: Generic Name Dose Route Start Last Admin Trade Name Freq PRN Reason Stop Dose Admin Acetaminophen 650 mg 01/28/22 23:53 01/30/22 17:28 Acetaminophen 325 Mg Tab PO 650 mg Q4H PRN Administration Pain MILD(1-3)/Fever >100.5/ALAS Albuterol 2.5 mg 01/29/22 09:17 Albuterol 2.5 Mg/3 Ml Nebu IH Q4HRT PRN Shortness Of Breath Arformoterol Tartrate 15 mcg 01/29/22 20:00 01/31/22 08:44 Arformoterol 15 Mcg/2 Ml Nebu IH 15 mcg Q12HRT ANN MARIE Administration Aspirin 81 mg 01/29/22 10:00 01/30/22 09:30 Aspirin Ec 81 Mg Tab PO 81 mg QDAY ANN MARIE Administration Atorvastatin Calcium 40 mg 01/29/22 22:00 01/30/22 22:57 Atorvastatin 40 Mg Tab PO 40 mg QHS ANN MARIE Administration Budesonide 0.5 mg 01/29/22 20:00 01/31/22 08:44 Budesonide 0.5 Mg/2 Ml Nebu IH 0.5 mg Q12HRT ANN MARIE Administration Citalopram Hydrobromide 20 mg 01/29/22 10:00 01/30/22 09:38 Citalopram 20 Mg Tab PO 20 mg QDAY ANN MARIE Administration Clonidine HCl 0.1 mg 01/30/22 09:00 01/30/22 17:28 Clonidine 0.1 Mg Tab PO 0.1 mg Q4H PRN Administration sbp> 160 Clopidogrel Bisulfate 75 mg 01/29/22 10:00 01/30/22 09:30 Clopidogrel 75 Mg Tab PO 75 mg QDAY ANN MARIE Administration Dextrose 0 ml 01/28/22 23:53 Dextrose 50% In Water (25gm) 50 Ml Syringe IV Q30MIN PRN Hypoglycemia Protocol Famotidine 20 mg 01/29/22 10:00 01/30/22 09:30 Famotidine 20 Mg Tab PO 20 mg DAILY ANN MARIE Administration Furosemide 40 mg 01/29/22 06:00 01/31/22 06:12 Furosemide 40 Mg/4 Ml Inj IV 40 mg BID@0600,1800 ANN MARIE Administration Hydralazine HCl 100 mg 01/29/22 14:00 01/31/22 06:13 Hydralazine 100 Mg Tab PO 100 mg Q8HR ANN MARIE Administration Hydralazine HCl 10 mg 01/29/22 13:15 01/30/22 14:27 Hydralazine 20 Mg/1 Ml Inj IV 10 mg Q4HR PRN Administration Hypertension Insulin Human Lispro 0 unit 01/29/22 07:30 01/30/22 22:57 Insulin Lispro 100 Unit/Ml SUB-Q Not Given ACHS [facility] Protocol Isosorbide Mononitrate 60 mg 01/29/22 10:00 01/30/22 09:30 Isosorbide Mononitrate Er 60 Mg Tab PO 60 mg QDAY ANN MARIE Administration Magnesium Hydroxide 30 ml 01/28/22 23:53 Magnesium Hydroxide (Mom) Oral Liqd Udc PO Q4H PRN Constipation Metoprolol Tartrate 50 mg 01/29/22 10:00 01/30/22 22:57 Metoprolol Tartrate 50 Mg Tab PO 50 mg BID ANN MARIE Administration Montelukast Sodium 10 mg 01/29/22 22:00 01/30/22 22:57 Montelukast 10 Mg Tab PO 10 mg QHS ANN MARIE Administration Morphine Sulfate 2 mg 01/28/22 23:53 01/30/22 22:58 Morphine 2 Mg/1 Ml Inj IV 2 mg Q4H PRN Administration Pain, Moderate (4-6) Morphine Sulfate 4 mg 01/28/22 23:53 01/29/22 02:32 Morphine 4 Mg/1 Ml Inj IV 4 mg Q4H PRN Administration Pain , Severe (7-10) Multivitamins/Minerals 1 each 01/29/22 10:00 01/30/22 14:28 Multivitamins,Ther W-Minerals Tab PO 1 each QDAY [facility] Administration Nifedipine 90 mg 01/30/22 10:00 01/30/22 09:30 Nifedipine Xl 90 Mg Tab PO 90 mg QDAY ANN MARIE Administration Ondansetron HCl 4 mg 01/28/22 23:53 01/29/22 15:28 Ondansetron 4 Mg/2 Ml Inj IV 4 mg Q8H PRN Administration Nausea And Vomiting Sodium Chloride 10 ml 01/29/22 10:00 01/30/22 22:58 Sodium Chloride 0.9% 10 Ml Flush Syringe IV 10 ml BID ANN MARIE Administration Sodium Chloride 10 ml 01/28/22 23:53 01/31/22 06:13 Sodium Chloride 0.9% 10 Ml Flush Syringe IV 10 ml PRN PRN Administration LINE FLUSH Valsartan 160 mg 01/29/22 11:00 01/30/22 22:57 Valsartan 160mg Tab PO 160 mg BID ANN MARIE Administration Nutrition/Malnutrition Assess - Dietary Evaluation Nutrition/Malnutrition Findings: Nutrition Notes Start: 01/29/22 13:57 Freq: Status: Active Protocol: Document 01/29/22 13:57 FREDERICK (Rec: 01/29/22 14:08 FREDERICK [id number]) Nutrition Notes Need for Assessment generated from: MD Order,Education Initial or Follow up Brief Note Current Diagnosis COPD,Coronary Artery Disease, Hypertension Other Pertinent Diagnosis CHF, DVT, PE, Cardiomyopathy. Current Diet Cardiac/Consistent Carbohydrates Diet (since B ). 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 Weight Status Morbidly Obese Subjective/Other Information RD consult for nutrition education assessment. No reports available on Pt's PO intake of meals at the time , will assess at F/U. Pt is on Nasal Cannula, O2 saturation @ 94%, according to Physical Assessment History notes. Pt has caries and missing teeth, according to Physical Assessment History notes. Pt presents Bilateral-LE Pitting Edema 2+, according to Physical Assessment History notes. Pt still in critical condition , not a candidate for Nutrition Education at the time, will assess feasibility on F/U. Percent of energy/protein needs met: Prescribed Cardiac/Consistent Carbohydrates Diet provides for energy/protein needs (1, 977 Kcal/86 g) during LOS. Nutrition Intervention Follow-Up By: 02/05/22 Additional Comments Nutrition education will be provided at F/U, if feasible. Continue monitoring food tolerance, %PO intake of meals , and BM.
[2022-01-31] MEDS: CLOPIDOGREL 75 MG TAB PO SCH (09:29)
[2022-01-31] MEDS: CITALOPRAM 20 MG TAB PO SCH (09:30)
[2022-01-31] MEDS: FAMOTIDINE 20 MG TAB PO SCH (09:30)
[2022-01-31] MEDS: NIFEdipine XL 90 MG TAB PO SCH (09:30)
[2022-01-31] MEDS: VALSARTAN 160MG TAB PO SCH ×2 (09:30→21:26)
[2022-01-31] MEDS: METOPROLOL TARTRATE 50 MG TAB PO SCH ×2 (09:30→21:27)
[2022-01-31] MEDS: ASPIRIN EC 81 MG TAB PO SCH (09:30)
[2022-01-31] MEDS: MULTIVITAMINS,THER W-MINERALS TAB PO SCH (09:30)
[2022-01-31] MEDS: ACETAMINOPHEN 325 MG TAB PO PRN (09:34)
[2022-01-31] MEDS: cloNIDine 0.1 MG TAB PO SCH ×2 (09:34→21:25)
[2022-01-31] MEDS: MORPHINE 2 MG/1 ML INJ IV PRN (11:18)
--- NOTE | 2022-01-31 13:43 | Progress Note ---
Assessment and Plan This patient is a 61 y/o female with a PMHX of CAD s/p PCI in 2019 on DAPT, DM, HFpEF(EF50-55%), HTN, COPD on home 02, medical noncompliance who presented to ED with a complaint that she fell at home. S/p fall hypertensive urgency Acute on chronic HFpEF Acute on chronic hypoxic respiratory failure- Currently on NC COPD- on home O2 HTN CAD s/p PCI 2018 DM Obesity Medical noncompliance Echo 01/08/2022-EF 50-55%. Mild concentric LVH. Right ventricle mildly dilated. Right ventricle systolic function is grossly normal. Extremities dilated. Moderate to severe tricuspid regurgitation. C 06/20/2018 successful PCI with intravascular ultrasound of the ramus with DIANELYS which was 100% culprit vessel with DIANELYS. Left main patent, LAD patent. RCA mmoderate to severe tortuosity with mid stent patent, circumflex pateent, ARIELA 50% with sintia 100% with successful PCI. Acute diastolic dysfunction Medications on Previous admissions: Metoprolol 50 mg p.o. twice daily, valsartan 160 mg p.o. twice daily, nifedipine 30 mg p.o. daily, hydralazine 100 mg p.o. 3 times daily, clonidine 0.2 mg p.o. twice daily, Imdur 60 mg p.o. daily Plan: Continue Imdur 60mg QD valsartan 160mg PO BID and hydralazine 100mg PO TID, nifedipine 90 mg p.o. daily Initiate clonidine 0.1mg PO BID and increase to metorpolol 100mg PO BID Continue DAPT with aspirin and Plavix BNP noted to be elevated agree with diuresis with Lasix IV 40 mg twice daily Strict I& O's, daily weights, and repeat BMP in the a.m. with close monitoring of renal function Discussed plan of care with patient who verbalized understanding and agreement Patient seen in conjunction with Dr. Hernandez who agrees with this plan of care. - Patient Problems (1) COPD exacerbation Current Visit: Yes Status: Acute (2) Hypertensive emergency Current Visit: Yes Status: Acute (3) Medical non-compliance Current Visit: Yes Status: Chronic (4) Acute and chronic respiratory failure Current Visit: No Status: Acute Qualifiers: Respiratory failure complication: hypoxia Qualified Code(s): J96.21 - Acute and chronic respiratory failure with hypoxia (5) Acute on chronic diastolic heart failure Current Visit: No Status: Acute (6) Cardiomyopathy Current Visit: No Status: Acute (7) Morbid obesity with body mass index of 40.0-49.9 Current Visit: No Status: Acute (8) Obesity hypoventilation syndrome Current Visit: No Status: Acute (9) CAD (coronary artery disease) Current Visit: No Status: Chronic Qualifiers: Coronary Disease-Associated Artery/Lesion type: [place] artery [place] vs. transplanted heart: [place] heart Associated angina: without angina Qualified Code(s): I25.10 - Atherosclerotic heart disease of [place] coronary artery without angina pectoris (10) Diabetes mellitus, type 2 Current Visit: No Status: Chronic (11) Hyperlipidemia Current Visit: No Status: Chronic Qualifiers: Hyperlipidemia type: mixed hyperlipidemia Qualified Code(s): E78.2 - Mixed hyperlipidemia (12) ADAN (obstructive sleep apnea) Current Visit: No Status: Chronic Subjective Date of service: 01/31/22 Principal diagnosis: HTNsive urgency; AE-CHF; AE-COPD; Ac on ch hypoxemic resp failure; Obesity Interval history: Patient resting in bed in no acute distress Sinus 80s on monitor with PVCs Objective Vital Signs Temp Pulse Pulse Resp Resp BP Pulse Ox 01/31/22 12:57 18 173/79 01/31/22 10:00 68 18 96 01/31/22 09:34 182/86 01/31/22 09:27 87 18 182/86 99 01/31/22 08:45 90 01/31/22 08:33 18 01/31/22 08:00 74 18 01/30/22 22:57 78 01/30/22 22:00 98 01/30/22 21:16 98.4 F 18 158/81 01/30/22 21:02 97 01/30/22 21:01 73 20 01/30/22 17:28 173/103 01/30/22 17:22 100 H 18 173/103 95 01/30/22 14:30 80 18 197/96 97 - Physical Examination General: No Apparent Distress HEENT: Positive: PERRL Neck: Positive: trachea midline Cardiac: Positive: Reg Rate and Rhythm Lungs: Positive: Decreased Breath Sounds Neuro: Positive: Grossly Intact Abdomen: Positive: Soft Skin: Negative: Rash, Suspicious Lesions, Ulceration Extremities: Present: upper extr. pulses, edema (Right lower extremity greater than left lower extremity, possibly hematoma) - Labs and Meds Comprehensive Metabolic Panel 01/31/22 Range/Units 05:32 Sodium 139 (137-145) mmol/L Potassium 4.0 (3.6-5.0) mmol/L Chloride 99.9 (98-107) mmol/L Carbon Dioxide 31 H (22-30) mmol/L BUN 22 H (7-17) mg/dL Creatinine 0.7 (0.6-1.2) mg/dL Glucose 80 (65-100) mg/dL Calcium 8.6 (8.4-10.2) mg/dL - Imaging and Cardiology Echo: report reviewed - Telemetry EKG Rhythm: Sinus Rhythm - EKG Sinus rhythms and dysrhythmias: sinus rhythm - Allied health notes Allied health notes reviewed: nursing
--- NOTE | 2022-01-31 14:16 | Electrocardiograph Report ---
[facility] Test Date: 2022-01-28 Test Time: 23:49:59 Pat Name: SHAHID FERNANDEZ Department: Room: A460 Gender: F Assistant Foreman: SHARMAINE : 1960 Requested By: EVARISTO BOYD Order Number: [id number] Reading MD: Andres Enriquez Measurements Intervals [place] Rate: 91 P: 82 UT: 163 QRS: 109 QRSD: 91 T: 83 QT: 420 QTc: 514 Interpretive Statements Sinus rhythm Atrial premature complex Right atrial enlargement Right axis deviation Prolonged QT interval Compared to ECG 01/06/2022 08:46:28 No significant change Electronically Signed On 01-31-2022 14:16:27 EDT by Andres Enriquez
--- NOTE | 2022-01-31 16:58 | Progress Note ---
Assessment and Plan 61-year-old -[place] female with known history of COPD, CHF, coronary artery disease with stent placement in the past, presenting the emergency room today via EMS for evaluation of shortness of breath. Upon arrival of EMS patient was said to be tachypneic and was not on any oxygen. She was tripoding and using accessory muscles of respiration. Initial oxygen saturation was 92% on room air. Patient indicates that she has not followed up with any primary care physician lately and she has not been quite compliant with her medications since primary care physician secondary to COVID. Patient denies any fever or chills, denies any chest pain, no headache or dizziness and no diaphoresis. She indicates that she fell at home and was on the floor for quite some time before getting help to get up from the floor. She denies any head injury, denies any loss of consciousness. Review of patient's records shows: Echo 01/08/2022-EF 50-55%. Mild concentric LVH. Right ventricle mildly dilated. Right ventricle systolic function is grossly normal. Extremities dilated. Moderate to severe tricuspid regurgitation. Echo 09/15/2020-LVEF is 50 to 55%. LV SF is normal. Moderate LVH. RV SF is normal. Moderate pulmonary hypertension cannot be excluded due to poor regurgitant envelope [facility] 06/20/2018 successful PCI with intravascular ultrasound of the ramus with DIANELYS which was 100% culprit vessel with DIANELYS. Left main patent, LAD patent. RCA moderate to severe tortuosity with mid stent patent, circumflex patent, ARIELA 50% with sintia 100% with successful PCI. Acute diastolic dysfunction Echo 03/25/2021 EF 50 to 55%, moderate concentric left ventricular hypertrophy. Right ventricle mildly dilated, right ventricle hypokinetic. Left atrium moderately dilated right atrium mildly dilated. Mild to moderate tricuspid reg urgitation. Moderate pulmonary hypertension. Past Medical History: arthritis, CAD, COPD, diabetes, DVT, hypertension, pulmonary embolism, other (History of gout) Past Surgical History: appendectomy, cholecystectomy, hysterectomy, PTCA, Other (Tonsillectomy) Patient has history of smoking 50 years x 1/1/2 pack for week. Denies alcohol or drug abuse. Not and has three children. Allergic to penicillin. Upon arrival in the emergency room, blood pressure was quite elevated with systolic in the 200s and diastolic in the low 100s. Patient did not respond well to IV hydralazine and metoprolol and was subsequently placed on Cardene drip. Work-up in the emergency room reveals elevated BNP of 11,363. Chest x-ray shows CHF exacerbation. Less severe when compared to prior. Patient being admitted for malignant hypertensive urgency and CHF exacerbation. Patient awake. Morbidly Obese. Resting on 5 litres O2 and O2 saturation running 98%. No acute respiratory distress at rest. Patient afebrile. Has no leukocytosis. Blood pressure 193/94 , Pulse 83 , Respirations 18. Chest xray done 01/28/22 reported CHF exacerbation, less severe when compared to prior. Doppler study of right lower extremity done 01/29/22 reported No sonographic evidence for DVT in the right lower extremity. Patient is on Brovanna/Budesonide aerosol treatments q 12 hours, Albuterol inhaler, Famotidine. Recommend DVT prophylaxis. Recommend albuterol/atrovent aerosol treatments prn for shortness of breath. I spent critical care time of 45 minutes obtaining history, review the chart, examine the patient, review chest xray , lab results, talking to the nursing staff, respiratory therapy and work up plan of treatment in this critically ill patient with multiple medical problems. - Patient Problems (1) Acute on chronic systolic (congestive) heart failure Current Visit: Yes Status: Acute Plan to address problem: Patient is on I/V Lasix. Management as per cardiology. (2) COPD exacerbation Current Visit: Yes Status: Acute Plan to address problem: O2 5 litres via nasal canula. ABGs on 5 litres O2. Brovanna/Budesonide aerosol treatments q 12hours. Albuterol/atrovent aerosol treatments q 6 hours prn for shortness of breath. Continue famotidine. Recommend DVT prophylaxis. PFTs as out patient. (3) Hypertensive emergency Current Visit: Yes Status: Acute Plan to address problem: Patient is on nifedipine, Clonidine, Hydralazine, Metaprolol. Management as per primary care and cardiology. (4) Acute respiratory failure with hypoxia Current Visit: No Status: Acute Plan to address problem: O2 5 litres via nasal canula. ABGs on 5 litres O2. Brovanna/Budesonide aerosol treatments q 12hours. Albuterol/atrovent aerosol treatments q 6 hours prn for shortness of breath. Continue famotidine. Recommend DVT prophylaxis (5) Morbid obesity with body mass index of 40.0-49.9 Current Visit: No Status: Acute Plan to address problem: Recommend to loose weight. (6) Nicotine dependence Current Visit: No Status: Acute Qualifiers: Substance use status: in withdrawal Plan to address problem: Counseled to stop smoking. (7) Obesity hypoventilation syndrome Current Visit: No Status: Acute Plan to address problem: ABGs on room air during day time. Recommend to loose weight. BIPAP during night time, PRN for sleepiness or shortness of breath during day time. (8) Diabetes mellitus, type 2 Current Visit: No Status: Chronic Plan to address problem: Management as per primary care. (9) ADAN (obstructive sleep apnea) Current Visit: No Status: Chronic Plan to address problem: BIPAP during night time. (10) Pulmonary hypertension Current Visit: No Status: Chronic Plan to address problem: Echocardiogram 03/25/21 reported moderate pulmonary hypertension. Subjective Date of service: 01/31/22 Principal diagnosis: HTNsive urgency; AE-CHF; AE-COPD; Ac on ch hypoxemic resp failure; Obesity Interval history: 61-year-old -[place] female with known history of COPD, CHF, coronary artery disease with stent placement in the past, presenting the emergency room today via EMS for evaluation of shortness of breath. Upon arrival of EMS patient was said to be tachypneic and was not on any oxygen. She was tripoding and using accessory muscles of respiration. Initial oxygen saturation was 92% on room air. Patient indicates that she has not followed up with any primary care physician lately and she has not been quite compliant with her medications since primary care physician secondary to COVID. Patient denies any fever or chills, denies any chest pain, no headache or dizziness and no diaphoresis. She indicates that she fell at home and was on the floor for quite some time before getting help to get up from the floor. She denies any head injury, denies any loss of consciousness. Review of patient's records shows: Echo 01/08/2022-EF 50-55%. Mild concentric LVH. Right ventricle mildly dilated. Right ventricle systolic function is grossly normal. Extremities dilated. Moderate to severe tricuspid regurgitation. Echo 09/15/2020-LVEF is 50 to 55%. LV SF is normal. Moderate LVH. RV SF is normal. Moderate pulmonary hypertension cannot be excluded due to poor regurgitant envelope [facility] 06/20/2018 successful PCI with intravascular ultrasound of the ramus with DIANELYS which was 100% culprit vessel with DIANELYS. Left main patent, LAD patent. RCA moderate to severe tortuosity with mid stent patent, circumflex patent, ARIELA 50% with sintia 100% with successful PCI. Acute diastolic dysfunction Echo 03/25/2021 EF 50 to 55%, moderate concentric left ventricular hypertrophy. Right ventricle mildly dilated, right ventricle hypokinetic. Left atrium moderately dilated right atrium mildly dilated. Mild to moderate tricuspid regurgitation. Moderate pulmonary hypertension. Past Medical History: arthritis, CAD, COPD, diabetes, DVT, hypertension, pulmonary embolism, other (History of gout) Past Surgical History: appendectomy, cholecystectomy, hysterectomy, PTCA, Other (Tonsillectomy) Patient has history of smoking 50 years x 1/1/2 pack for week. Denies alcohol or drug abuse. Not and has three children. Allergic to penicillin. Upon arrival in the emergency room, blood pressure was quite elevated with systolic in the 200s and diastolic in the low 100s. Patient did not respond well to IV hydralazine and metoprolol and was subsequently placed on Cardene drip. Work-up in the emergency room reveals elevated BNP of 11,363. Chest x-ray shows CHF exacerbation. Less severe when compared to prior. Patient being admitted for malignant hypertensive urgency and CHF exacerbation. Patient awake. Morbidly Obese. Resting on 5 litres O2 and O2 saturation running 98%. No acute respiratory distress at rest. Patient afebrile. Has no leukocytosis. Blood pressure 193/94 , Pulse 83 , Respirations 18. Chest xray done 01/28/22 reported CHF exacerbation, less severe when compared to prior. Doppler study of right lower extremity done 01/29/22 reported No sonographic evidence for DVT in the right lower extremity. Patient is on Brovanna/Budesonide aerosol treatments q 12 hours, Albuterol inhaler, Famotidine. Recommend DVT prophylaxis. Recommend albuterol/atrovent aerosol treatments prn for shortness of breath. Objective Vital Signs - 12hr 01/31/22 01/31/22 01/31/22 08:00 08:33 08:45 Temperature Pulse Rate Pulse Rate [ 74 Throughout] Respiratory 18 Rate Respiratory 18 Rate [ Throughout] Blood Pressure Blood Pressure [Left] O2 Sat by Pulse 90 Oximetry 01/31/22 01/31/22 01/31/22 09:27 09:34 10:00 Temperature Pulse Rate 87 68 Pulse Rate [ Throughout] Respiratory 18 18 Rate Respiratory Rate [ Throughout] Blood Pressure 182/86 182/86 Blood Pressure [Left] O2 Sat by Pulse 99 96 Oximetry 01/31/22 01/31/22 12:57 16:06 Temperature 98.0 F Pulse Rate 83 Pulse Rate [ Throughout] Respiratory 18 18 Rate Respiratory Rate [ Throughout] Blood Pressure 173/79 Blood Pressure 193/94 [Left] O2 Sat by Pulse 98 Oximetry Constitutional: no acute distress, alert, other (elderly Morbidly obese female with mildly increased respiratory effort at rest) Eyes: non-icteric ENT: oropharynx moist Neck: supple, no lymphadenopathy, no JVD, other (large circumference) Effort: mildly labored Ascultation: Bilateral: diminished breath sounds Percussion: Bilateral: not dull Cardiovascular: regular rate and rhythm Gastrointestinal: normoactive bowel sounds, soft, non-tender, non-distended (protuberant) Integumentary: normal Extremities: no cyanosis, no edema, pulses normal, no ischemia or petechiae Neurologic: non-focal exam, pupils equal and round, CN II-XII normal, motor strength normal and Psychiatric: mood appropriate, affect normal CBC and BMP: 01/28/22 16:32 02/01/22 04:23 ABG, PT/INR, D-dimer: PT/INR, D-dimer PT 15.3 Sec. (12.2-14.9) H 01/28/22 16:32 INR 1.09 (0.87-1.13) 01/28/22 16:32 Abnormal lab findings: Abnormal Labs 01/28/22 01/28/22 01/28/22 16:32 16:32 16:32 RBC 5.13 H MCV 69 L MCH 21 L RDW 25.0 H Seg Neuts % (Manual) 88.0 H Lymphocytes % (Manual) 6.0 L Lymphocytes # (Manual) 0.3 L PT 15.3 H Carbon Dioxide BUN Glucose POC Glucose ALT 6 L Alkaline Phosphatase 221 H CK-MB (CK-2) Rel Index NT-Pro-B Natriuret Pep Lipase 12 L 01/28/22 01/28/22 01/29/22 16:32 16:32 04:07 RBC MCV MCH RDW Seg Neuts % (Manual) Lymphocytes % (Manual) Lymphocytes # (Manual) PT Carbon Dioxide BUN Glucose 210 H POC Glucose ALT Alkaline Phosphatase CK-MB (CK-2) Rel Index 8.2 H NT-Pro-B Natriuret Pep 04685 H Lipase 01/29/22 01/29/22 01/29/22 07:31 11:08 16:05 RBC MCV MCH RDW Seg Neuts % (Manual) Lymphocytes % (Manual) Lymphocytes # (Manual) PT Carbon Dioxide BUN Glucose POC Glucose 164 H 162 H 133 H ALT Alkaline Phosphatase CK-MB (CK-2) Rel Index NT-Pro-B Natriuret Pep Lipase 01/29/22 01/30/22 01/30/22 21:53 07:39 10:21 RBC MCV MCH RDW Seg Neuts % (Manual) Lymphocytes % (Manual) Lymphocytes # (Manual) PT Carbon Dioxide 31 H BUN 23 H Glucose 108 H POC Glucose 166 H 133 H ALT Alkaline Phosphatase CK-MB (CK-2) Rel Index NT-Pro-B Natriuret Pep Lipase 01/30/22 01/30/22 01/31/22 11:20 22:25 05:32 RBC MCV MCH RDW Seg Neuts % (Manual) Lymphocytes % (Manual) Lymphocytes # (Manual) PT Carbon Dioxide 31 H BUN 22 H Glucose POC Glucose 110 H 115 H ALT Alkaline Phosphatase CK-MB (CK-2) Rel Index NT-Pro-B Natriuret Pep Lipase 01/31/22 01/31/22 08:27 11:26 RBC MCV MCH RDW Seg Neuts % (Manual) Lymphocytes % (Manual) Lymphocytes # (Manual) PT Carbon Dioxide BUN Glucose POC Glucose 119 H 112 H ALT Alkaline Phosphatase CK-MB (CK-2) Rel Index NT-Pro-B Natriuret Pep Lipase Prior PFT's, U/S of legs: report reviewed, image reviewed Additional Studies: UPLEX DOPPLER LOWER EXTREMITY VEINS, RIGHT 01/29/22 INDICATION / CLINICAL INFORMATION: dvt. TECHNIQUE: Duplex doppler imaging was performed through the veins of the right lower extremity using venous compression and other maneuvers. COMPARISON: None available. FINDINGS: RIGHT COMMON FEMORAL VEIN: Negative. RIGHT FEMORAL VEIN: Negative. RIGHT POPLITEAL VEIN: Negative. RIGHT CALF VEINS: Negative. ADDITIONAL FINDINGS: None. IMPRESSION: 1. No sonographic evidence for DVT in the right lower extremity. CHEST 1 VIEW 01/28/2022 2:56 PM INDICATION / CLINICAL INFORMATION: Dyspnea. COMPARISON: 01/06/2022 FINDINGS: SUPPORT DEVICES: None. HEART / MEDIASTINUM: Enlarged, stable LUNGS / PLEURA: Mildly improving bilateral airspace infiltrates and effusions. No pneumothorax. ADDITIONAL FINDINGS: No significant additional findings. IMPRESSION: 1. CHF exacerbation, less severe when compared to prior. Allied health notes reviewed: nursing
[2022-01-31] MEDS: hydrALAZINE 20 MG/1 ML INJ IV PRN (17:12)
[2022-01-31] MEDS: oxyCODONE /ACETAMINOPHEN 5-325MG TAB PO PRN (18:45)
[2022-01-31] MEDS: MONTELUKAST 10 MG TAB PO SCH (21:27)
[2022-02-01 05:58] LABS: BUN/Creatinine Ratio 23; Blood Urea Nitrogen 18 mg/dL (7-17); Calcium 8.8 mg/dL (8.4-10.2); Hemolysis Index 1
[2022-02-01] MEDS: FUROSEMIDE 40 MG/4 ML INJ IV SCH ×2 (06:54→17:24)
[2022-02-01] MEDS: hydrALAZINE 100 MG TAB PO SCH ×3 (06:54→22:53)
[2022-02-01] MEDS: INSULIN LISPRO 100 UNIT/ML SUB-Q SCH ×4 (07:51→23:06)
--- NOTE | 2022-02-01 08:07 | Progress Note ---
Assessment and Plan Assessment and plan: Interval history: This is 61-year-old female with COPD, CHF, PE, CAD s/p stent placement and noncompliance who presented to the emergency department on 01/28 with complaints of shortness of breath via EMS. Upon EMS arrival patient was tachypneic, not on any oxygen tripod positioned and using accessory muscles for respirations and SPO2 was 92% on room air. Patient also noted that she fell at home and was on the floor for quite some time before getting help to get up from the floor. Upon arrival to the emergency department patient's blood pressure was in the 200s over 100s and she did not respond to IV hydralazine and metoprolol and was placed on a Cardene drip and CXR showed CSF exacerbation. Patient was admitted to the hospitalist service with consult to cardiology with malignant hypertensive urgency and CHF exacerbation. Hospital course to date: 01/29: Patient has been weaned off of Cardene drip and will be started on p.o. metoprolol, hydralazine, Imdur and valsartan. PT/OT consulted. We will obtain right lower extremity ultrasound for swelling to rule out DVT. Patient will transfer to telemetry. 01/30: Swelling improved in lower extremity. LE US negative for DVT. Dispo: [facility] per PT notes. D/w CM who have initiated work on referral/auth process. 01/31: significant urine OP. good response to diuresis. Improvement seen on exam, decresae in LE edema. Ordered BMP for tomorrow AM. Xanax prn anxiety and percocet prn mod pain as patient complaining of chest wall pain and anxiety associated with hospitalization . Pending placement to [facility]. 02/01: Awaiting placement to [facility]. Currently requiring 4L NC satting 94%. Briefly required Wean as sats tolerate > 90%. D/c percocet as patient has inadequate pain control. Started on dilaudid po. Blood pressure high, patient was refusing last night's meds. Educated on needs for meds on continuous basis today. Patient agreed to taking meds, f/u bp in afternoon 150's sbp. Still awaiting placement to [facility]. Assessment and Plan: Neuro: Noncompliance, anxiety -Reorientation as needed -Maintain sleep-wake cycle -As needed analgesia -Medical compliance strongly encouraged -Continue home Celexa - xanax prn anxiety Cardiac: Hypertensive urgency, acute on chronic diastolic heart failure, CAD s/p stent (06/2018) -Cardiology consulted, appreciate recommendations -Blood pressure monitoring per protocol -S/p Cardene drip -P.o. hydralazine, metoprolol, Imdur, valsartan -Admit proBNP 11,363 -Lasix 40 mg twice daily -Plavix, aspirin, Lipitor -01/09/2020 echocardiogram shows EF of 50 to 55% -Of note: Echo 09/15/2020-LVEF is 50 to 55%. LV SF is normal. Moderate LVH. RV SF is normal. Moderate pulmonary hypertension cannot be excluded due to poor regurgitant envelope [facility] 06/20/2018 successful PCI with intravascular ultrasound of the ramus with DIANELYS which was 100% culprit vessel with DIANELYS. Left main patent, LAD patent. RCA mmoderate to severe tortuosity with mid stent patent, circumflex pateent, ARIELA 50% with sintia 100% with successful PCI. Acute diastolic dysfunction Echo 03/25/2021 EF 50 to 55%, moderate concentric left ventricular hy pertrophy. Right ventricle mildly dilated, right ventricle hypokinetic. Left atrium moderately dilated right atrium mildly dilated. Mild to moderate tricuspid regurgitation. Moderate pulmonary hypertension. Respiratory: Acute on chronic hypoxic respiratory failure (2 L nasal cannula at home), current nicotine abuse -Initially presented with shortness of breath -CCM consulted, appreciate recommendations -Continue nasal cannula -SPO2 monitor per protocol -Supplemental oxygen as needed -Pulmonary hygiene -Continue Brovana, Singulair, Pulmicort -Tobacco cessation counseling provided GI: Morbid obesity -24 hours +38 mL -PPI -cc cardiac diet : NAD -Monitor intake and output -Renally dose medications -Avoid nephrotoxic medications ID: NAD -f/u blood culture -Monitor WBC and temperature curve Endo: Hyperglycemia -Avoid hypoglycemia -SSI -Accu-Cheks ACHS -hbg a1c pending Heme: r/o DVT, h/o PE -Left lower extremity Doppler ultrasound pending swelling -Trend CBC -Transfuse hemoglobin less than 7 -SCDs to BLE while in bed #Advance care planning Disease education conducted, care plan discussed, diagnoses discussed, prognosis discussed, patient is full code, patient acknowledges understanding and agree with care plan, +30 minutes. History Interval history: Complaining that pain control on chest and back not adequate. Otherwise no complaints. Hospitalist Physical - Physical exam Narrative exam: General appearance: Present: no acute distress, obese - EENT Eyes: Present: PERRL, EOM intact ENT: hearing intact, clear oral mucosa, dentition normal - Neck Neck: Present: normal ROM - Respiratory Respiratory effort: normal Respiratory: bilateral: CTA, diminished - Cardiovascular Rhythm: regular Heart Sounds: Present: S1 & S2. Absent: systolic murmur, diastolic murmur - Extremities Extremities: no ischemia, pulses intact, pulses symmetrical Extremity abnormal: edema Peripheral Pulses: within normal limits - Abdominal General gastrointestinal: soft, non-tender, non-distended, normal bowel sounds - Integumentary Integumentary: Present: warm, dry - Psychiatric Psychiatric: cooperative - Neurologic Neurologic: CNII-XII intact, no focal deficits, moves all extremities - Allied Health Allied health notes reviewed: nursing, RT, social work - Constitutional Vitals: Temp Pulse Resp BP Pulse Ox 98.1 F 103 H 18 157/87 94 01/31/22 23:08 02/01/22 04:05 01/31/22 23:08 02/01/22 05:39 01/31/22 23:09 General appearance: Present: no acute distress, obese HEART Score - HEART Score Troponin: Troponin T < 0.010 ng/mL (0.00-0.029) 01/28/22 16:32 Results - Labs CBC & Chem 7: 01/28/22 16:32 02/01/22 04:23 Labs: Laboratory Last Values WBC 5.8 K/mm3 (4.5-11.0) 01/28/22 16:32 RBC 5.13 M/mm3 (3.65-5.03) H 01/28/22 16:32 Hgb 10.8 gm/dl (10.1-14.3) 01/28/22 16:32 Hct 35.3 % (30.3-42.9) 01/28/22 16:32 MCV 69 fl (79-97) L 01/28/22 16:32 MCH 21 pg (28-32) L 01/28/22 16:32 MCHC 31 % (30-34) 01/28/22 16:32 RDW 25.0 % (13.2-15.2) H 01/28/22 16:32 Plt Count 309 K/mm3 (140-440) 01/28/22 16:32 Add Manual Diff Complete 01/28/22 16:32 Total Counted 100 01/28/22 16:32 Seg Neuts % (Manual) 88.0 % (40.0-70.0) H 18 16:32 Band Neutrophils % 0 % 01/28/22 16:32 Lymphocytes % (Manual) 6.0 % (13.4-35.0) L 01/28/22 16:32 Reactive Lymphs % (Man) 0 % 01/28/22 16:32 Monocytes % (Manual) 5.0 % (0.0-7.3) 01/28/22 16:32 Eosinophils % (Manual) 1.0 % (0.0-4.3) 01/28/22 16:32 Basophils % (Manual) 0 % (0.0-1.8) 01/28/22 16:32 Metamyelocytes % 0 % 01/28/22 16:32 Myelocytes % 0 % 01/28/22 16:32 Promyelocytes % 0 % 01/28/22 16:32 Blast Cells % 0 % 01/28/22 16:32 Nucleated RBC % Not Reportable 01/28/22 16:32 Seg Neutrophils # Man 5.1 K/mm3 (1.8-7.7) 01/28/22 16:32 Band Neutrophils # 0.0 K/mm3 01/28/22 16:32 Lymphocytes # (Manual) 0.3 K/mm3 (1.2-5.4) L 01/28/22 16:32 Abs React Lymphs (Man) 0.0 K/mm3 01/28/22 16:32 Monocytes # (Manual) 0.3 K/mm3 (0.0-0.8) 01/28/22 16:32 Eosinophils # (Manual) 0.1 K/mm3 (0.0-0.4) 01/28/22 16:32 Basophils # (Manual) 0.0 K/mm3 (0.0-0.1) 01/28/22 16:32 Metamyelocytes # 0.0 K/mm3 01/28/22 16:32 Myelocytes # 0.0 K/mm3 01/28/22 16:32 Promyelocytes # 0.0 K/mm3 01/28/22 16:32 Blast Cells # 0.0 K/mm3 01/28/22 16:32 WBC Morphology Not Reportable 01/28/22 16:32 Hypersegmented Neuts Not Reportable 01/28/22 16:32 Hyposegmented Neuts Not Reportable 01/28/22 16:32 Hypogranular Neuts Not Reportable 01/28/22 16:32 Smudge Cells Not Reportable 01/28/22 16:32 Toxic Granulation Not Reportable 01/28/22 16:32 Toxic Vacuolation Not Reportable 01/28/22 16:32 Dohle Bodies Not Reportable 01/28/22 16:32 Pelger-Huet Anomaly Not Reportable 01/28/22 16:32 Juan Rods Not Reportable 01/28/22 16:32 Platelet Estimate Consistent w auto 01/28/22 16:32 Clumped Platelets Not Reportable 01/28/22 16:32 Plt Clumps, EDTA Not Reportable 01/28/22 16:32 Large Platelets Not Reportable 01/28/22 16:32 Giant Platelets Few 01/28/22 16:32 Platelet Satelliting Not Reportable 01/28/22 16:32 Plt Morphology Comment Not Reportable 01/28/22 16:32 RBC Morphology Not Reportable 01/28/22 16:32 Dimorphic RBCs Not Reportable 01/28/22 16:32 Polychromasia Not Reportable 01/28/22 16:32 Hypochromasia 2+ 01/28/22 16:32 Poikilocytosis Not Reportable 01/28/22 16:32 Anisocytosis 2+ 01/28/22 16:32 Microcytosis 2+ 01/28/22 16:32 Macrocytosis Not Reportable 01/28/22 16:32 Spherocytes Not Reportable 01/28/22 16:32 Pappenheimer Bodies Not Reportable 01/28/22 16:32 Sickle Cells Not Reportable 01/28/22 16:32 Target Cells Few 01/28/22 16:32 Tear Drop Cells Not Reportable 01/28/22 16:32 Ovalocytes Few 01/28/22 16:32 Helmet Cells Not Reportable 01/28/22 16:32 Lozano-Kendleton Bodies Not Reportable 01/28/22 16:32 [place] Rings Not Reportable 01/28/22 16:32 [place] Cells Not Reportable 01/28/22 16:32 Bite Cells Not Reportable 01/28/22 16:32 Crenated Cell Not Reportable 01/28/22 16:32 Elliptocytes Few 01/28/22 16:32 Acanthocytes (Spur) Not Reportable 01/28/22 16:32 Rouleaux Not Reportable 01/28/22 16:32 Hemoglobin C Crystals Not Reportable 01/28/22 16:32 Schistocytes Not Reportable 01/28/22 16:32 Malaria parasites Not Reportable 01/28/22 16:32 Didier Bodies Not Reportable 01/28/22 16:32 Hem Pathologist Commnt No 01/28/22 16:32 PT 15.3 Sec. (12.2-14.9) H 01/28/22 16:32 INR 1.09 (0.87-1.13) 01/28/22 16:32 Sodium 138 mmol/L (137-145) 02/01/22 04:23 Potassium 3.7 mmol/L (3.6-5.0) 02/01/22 04:23 Chloride 97.2 mmol/L (98-107) L 02/01/22 04:23 Carbon Dioxide 30 mmol/L (22-30) 02/01/22 04:23 Anion Gap 15 mmol/L 02/01/22 04:23 BUN 18 mg/dL (7-17) H 02/01/22 04:23 Creatinine 0.8 mg/dL (0.6-1.2) 02/01/22 04:23 Estimated GFR > 60 ml/min 02/01/22 04:23 BUN/Creatinine Ratio 23 % 02/01/22 04:23 Glucose 106 mg/dL (65-100) H 02/01/22 04:23 POC Glucose 112 mg/dL (70-105) H 01/31/22 20:45 Hemoglobin A1c 6.0 % (4-6) 01/28/22 16:32 Ketones Quantitative Negative (Negative) 01/28/22 16:32 Lactic Acid 1.90 mmol/L (0.7-2.0) 01/28/22 16:32 Calcium 8.8 mg/dL (8.4-10.2) 02/01/22 04:23 Magnesium 1.80 mg/dL (1.7-2.3) 02/01/22 04:23 Total Bilirubin 0.60 mg/dL (0.1-1.2) 01/28/22 16:32 AST 11 units/L (5-40) 01/28/22 16:32 ALT 6 units/L (7-56) L 01/28/22 16:32 Alkaline Phosphatase 221 units/L (35-129) H 01/28/22 16:32 Total Creatine Kinase 34 units/L (30-135) 01/28/22 16:32 Total Creatine Kinase 39 units/L (30-135) 01/28/22 16:32 CK-MB (CK-2) 2.8 ng/mL (0.0-4.0) 01/28/22 16:32 CK-MB (CK-2) Rel Index 8.2 (0-4) H 01/28/22 16:32 Troponin T < 0.010 ng/mL (0.00-0.029) 01/28/22 16:32 NT-Pro-B Natriuret Pep 18962 pg/mL (0-900) H 01/28/22 16:32 Total Protein 7.8 g/dL (6.3-8.2) 01/28/22 16:32 Albumin 3.9 g/dL (3.9-5) 01/28/22 16:32 Albumin/Globulin Ratio 1.0 % 01/28/22 16:32 Lipase 12 units/L (13-60) L 01/28/22 16:32 Urine Color Yellow (Yellow) 01/28/22 17:02 Urine Turbidity Clear (Clear) 01/28/22 17:02 Specific [place] (Man) 1.010 (1.003-1.030) 01/28/22 17:02 Ur Protein (Man) 1+ mg/dL (Negative) 01/28/22 17:02 Ur Ketones (Man) Negative (Negative) 01/28/22 17:02 Ur Nitrite (Man) Positive (Negative) 01/28/22 17:02 Urine Bilirubin (Man) Negative (Negative) 01/28/22 17:02 Leukocyte Esterase (Man) Negative (Negative) 01/28/22 17:02 Urine WBC (Auto) 4.0 /HPF (0.0-6.0) 01/28/22 17:02 Urine RBC (Auto) 1.0 /HPF (0.0-6.0) 01/28/22 17:02 Urine RBC (Manual) 1+ (Negative) 01/28/22 17:02 Urine Mucus Few /HPF 01/28/22 17:02 Urine Opiates Screen Presumptive negative 01/28/22 17:02 Urine Methadone Screen Presumptive negative 01/28/22 17:02 Ur Barbiturates Screen Presumptive negative 01/28/22 17:02 Ur Phencyclidine Scrn Presumptive negative 01/28/22 17:02 Ur Amphetamines Screen Presumptive negative 01/28/22 17:02 U Benzodiazepines Scrn Presumptive negative 01/28/22 17:02 Urine Cocaine Screen Presumptive negative 01/28/22 17:02 U Marijuana (THC) Screen Presumptive negative 01/28/22 17:02 Drugs of Abuse Note Disclamer 01/28/22 17:02 Fabian/IV: Voiding Method External Female Catheter Active Medications - Current Medications Current Medications: Generic Name Dose Route Start Last Admin Trade Name Freq PRN Reason Stop Dose Admin Acetaminophen 650 mg 01/28/22 23:53 01/31/22 09:34 Acetaminophen 325 Mg Tab PO 650 mg Q4H PRN Administration Pain MILD(1-3)/Fever >100.5/ALAS Albuterol 2.5 mg 01/29/22 09:17 Albuterol 2.5 Mg/3 Ml Nebu IH Q4HRT PRN Shortness Of Breath Alprazolam 0.5 mg 01/31/22 14:31 Alprazolam 0.5 Mg Tab PO Q8H PRN Anxiety Arformoterol Tartrate 15 mcg 01/29/22 20:00 01/31/22 21:32 Arformoterol 15 Mcg/2 Ml Nebu IH 15 mcg Q12HRT ANN MARIE Administration Aspirin 81 mg 01/29/22 10:00 01/31/22 09:30 Aspirin Ec 81 Mg Tab PO 81 mg QDAY ANN MARIE Administration Atorvastatin Calcium 40 mg 01/29/22 22:00 01/31/22 21:25 Atorvastatin 40 Mg Tab PO 40 mg QHS ANN MARIE Administration Budesonide 0.5 mg 01/29/22 20:00 01/31/22 21:32 Budesonide 0.5 Mg/2 Ml Nebu IH 0.5 mg Q12HRT ANN MARIE Administration Citalopram Hydrobromide 20 mg 01/29/22 10:00 01/31/22 09:30 Citalopram 20 Mg Tab PO 20 mg QDAY ANN MARIE Administration Clonidine HCl 0.1 mg 01/30/22 09:00 01/30/22 17:28 Clonidine 0.1 Mg Tab PO 0.1 mg Q4H PRN Administration sbp> 160 Clonidine HCl 0.1 mg 01/31/22 10:00 01/31/22 21:25 Clonidine 0.1 Mg Tab PO 0.1 mg Q12HR ANN MARIE Administration Clopidogrel Bisulfate 75 mg 01/29/22 10:00 01/31/22 09:29 Clopidogrel 75 Mg Tab PO 75 mg QDAY ANN MARIE Administration Dextrose 0 ml 01/28/22 23:53 Dextrose 50% In Water (25gm) 50 Ml Syringe IV Q30MIN PRN Hypoglycemia Protocol Famotidine 20 mg 01/29/22 10:00 01/31/22 09:30 Famotidine 20 Mg Tab PO 20 mg DAILY ANN MARIE Administration Furosemide 40 mg 01/29/22 06:00 02/01/22 06:54 Furosemide 40 Mg/4 Ml Inj IV 40 mg BID@0600,1800 ANN MARIE Administration Hydralazine HCl 100 mg 01/29/22 14:00 02/01/22 06:54 Hydralazine 100 Mg Tab PO 100 mg Q8HR ANN MARIE Administration Hydralazine HCl 10 mg 01/29/22 13:15 01/31/22 17:12 Hydralazine 20 Mg/1 Ml Inj IV 10 mg Q4HR PRN Administration Hypertension Insulin Human Lispro 0 unit 01/29/22 07:30 02/01/22 07:51 Insulin Lispro 100 Unit/Ml SUB-Q Not Given ACHS [facility] Protocol Isosorbide Mononitrate 60 mg 01/29/22 10:00 01/31/22 09:30 Isosorbide Mononitrate Er 60 Mg Tab PO 60 mg QDAY ANN MARIE Administration Magnesium Hydroxide 30 ml 01/28/22 23:53 Magnesium Hydroxide (Mom) Oral Liqd Udc PO Q4H PRN Constipation Metoprolol Tartrate 100 mg 01/31/22 22:00 01/31/22 21:27 Metoprolol Tartrate 50 Mg Tab PO 50 mg BID ANN MARIE Administration Montelukast Sodium 10 mg 01/29/22 22:00 01/31/22 21:27 Montelukast 10 Mg Tab PO 10 mg QHS ANN MARIE Administration Multivitamins/Minerals 1 each 01/29/22 10:00 01/31/22 09:30 Multivitamins,Ther W-Minerals Tab PO 1 each QDAY ANN MARIE Administration Nifedipine 90 mg 01/30/22 10:00 01/31/22 09:30 Nifedipine Xl 90 Mg Tab PO 90 mg QDAY ANN MARIE Administration Ondansetron HCl 4 mg 01/28/22 23:53 01/29/22 15:28 Ondansetron 4 Mg/2 Ml Inj IV 4 mg Q8H PRN Administration Nausea And Vomiting Oxycodone/Acetaminophen 2 tab 01/31/22 14:31 01/31/22 18:45 Oxycodone /Acetaminophen 5-325mg Tab PO 2 tab Q6H PRN Administration Pain, Moderate (4-6) Sodium Chloride 10 ml 01/29/22 10:00 01/31/22 21:33 Sodium Chloride 0.9% 10 Ml Flush Syringe IV 10 ml BID ANN MARIE Administration Sodium Chloride 10 ml 01/28/22 23:53 01/31/22 06:13 Sodium Chloride 0.9% 10 Ml Flush Syringe IV 10 ml PRN PRN Administration LINE FLUSH Valsartan 160 mg 01/29/22 11:00 01/31/22 21:26 Valsartan 160mg Tab PO 160 mg BID ANN MARIE Administration Nutrition/Malnutrition Assess - Dietary Evaluation Nutrition/Malnutrition Findings: Nutrition Notes Start: 01/29/22 13:57 Freq: Status: Active Protocol: Document 01/29/22 13:57 FREDERICK (Rec: 01/29/22 14:08 FREDERICK [id number]) Nutrition Notes Need for Assessment generated from: MD Order,Education Initial or Follow up Brief Note Current Diagnosis COPD,Coronary Artery Disease, Hypertension Other Pertinent Diagnosis CHF, DVT, PE, Cardiomyopathy. Current Diet Cardiac/Consistent Carbohydrates Diet (since B ). 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 Weight Status Morbidly Obese Subjective/Other Information RD consult for nutrition education assessment. No reports available on Pt's PO intake of meals at the time , will assess at F/U. Pt is on Nasal Cannula, O2 saturation @ 94%, according to Physical Assessment History notes. Pt has caries and missing teeth, according to Physical Assessment History notes. Pt presents Bilateral-LE Pitting Edema 2+, according to Physical Assessment History notes. Pt still in critical condition , not a candidate for Nutrition Education at the time, will assess feasibility on F/U. Percent of energy/protein needs met: Prescribed Cardiac/Consistent Carbohydrates Diet provides for energy/protein needs (1, 977 Kcal/86 g) during LOS. Nutrition Intervention Follow-Up By: 02/05/22 Additional Comments Nutrition education will be provided at F/U, if feasible. Continue monitoring food tolerance, %PO intake of meals , and BM.
[2022-02-01] MEDS: ARFORMOTEROL 15 MCG/2 ML NEBU IH SCH ×2 (08:51→20:20)
[2022-02-01] MEDS: BUDESONIDE 0.5 MG/2 ML NEBU IH SCH ×2 (08:51→20:20)
[2022-02-01] MEDS: METOPROLOL TARTRATE 50 MG TAB PO SCH ×2 (09:00→22:54)
[2022-02-01] MEDS: ASPIRIN EC 81 MG TAB PO SCH (09:00)
[2022-02-01] MEDS: FAMOTIDINE 20 MG TAB PO SCH (09:00)
[2022-02-01] MEDS: cloNIDine 0.1 MG TAB PO SCH ×3 (09:00→22:57)
[2022-02-01] MEDS: VALSARTAN 160MG TAB PO SCH ×2 (09:00→22:54)
[2022-02-01] MEDS: CITALOPRAM 20 MG TAB PO SCH (09:00)
[2022-02-01] MEDS: CLOPIDOGREL 75 MG TAB PO SCH (09:00)
[2022-02-01] MEDS: NIFEdipine XL 90 MG TAB PO SCH (09:01)
[2022-02-01] MEDS: oxyCODONE /ACETAMINOPHEN 5-325MG TAB PO PRN ×2 (09:01→15:43)
[2022-02-01] MEDS: hydrALAZINE 20 MG/1 ML INJ IV PRN ×2 (09:01→14:38)
[2022-02-01] MEDS: MULTIVITAMINS,THER W-MINERALS TAB PO SCH (09:01)
[2022-02-01] MEDS: ALPRAZolam 0.5 MG TAB PO PRN ×2 (10:07→17:24)
--- NOTE | 2022-02-01 11:29 | Progress Note ---
Assessment and Plan This patient is a 61 y/o female with a PMHX of CAD s/p PCI in 2019 on DAPT, DM, HFpEF(EF50-55%), HTN, COPD on home 02, medical noncompliance who presented to ED with a complaint that she fell at home. S/p fall hypertensive urgency Acute on chronic HFpEF Acute on chronic hypoxic respiratory failure- Currently on NC COPD- on home O2 HTN CAD s/p PCI 2018 DM Obesity Medical noncompliance Echo 01/08/2022-EF 50-55%. Mild concentric LVH. Right ventricle mildly dilated. Right ventricle systolic function is grossly normal. Extremities dilated. Moderate to severe tricuspid regurgitation. C 06/20/2018 successful PCI with intravascular ultrasound of the ramus with DIANELYS which was 100% culprit vessel with DIANELYS. Left main patent, LAD patent. RCA mmoderate to severe tortuosity with mid stent patent, circumflex pateent, ARIELA 50% with sintia 100% with successful PCI. Acute diastolic dysfunction Medications on Previous admissions: Metoprolol 50 mg p.o. twice daily, valsartan 160 mg p.o. twice daily, nifedipine 30 mg p.o. daily, hydralazine 100 mg p.o. 3 times daily, clonidine 0.2 mg p.o. twice daily, Imdur 60 mg p.o. daily Plan: Continue Imdur 60mg QD valsartan 160mg PO BID and hydralazine 100mg PO TID, nifedipine 90 mg p.o. daily,metorpolol 100mg PO BID Patient remains hypertensive will increase to clonidine 0.2mg PO BID Continue DAPT with aspirin and Plavix Patient reports good urine output will continue Lasix IV 40 mg twice daily Strict I& O's, daily weights, and repeat BMP in the a.m. with close monitoring of renal function Discussed plan of care with patient who verbalized understanding and agreement Patient seen in conjunction with Dr. Brian who agrees with this plan of care. - Patient Problems (1) COPD exacerbation Current Visit: Yes Status: Acute (2) Hypertensive emergency Current Visit: Yes Status: Acute (3) Medical non-compliance Current Visit: Yes Status: Chronic (4) Acute and chronic respiratory failure Current Visit: No Status: Acute Qualifiers: Respiratory failure complication: hypoxia Qualified Code(s): J96.21 - Acute and chronic respiratory failure with hypoxia (5) Acute on chronic diastolic heart failure Current Visit: No Status: Acute (6) Cardiomyopathy Current Visit: No Status: Acute (7) Morbid obesity with body mass index of 40.0-49.9 Current Visit: No Status: Acute (8) Obesity hypoventilation syndrome Current Visit: No Status: Acute (9) CAD (coronary artery disease) Current Visit: No Status: Chronic Qualifiers: Coronary Disease-Associated Artery/Lesion type: [place] artery [place] vs. transplanted heart: [place] heart Associated angina: without angina Qualified Code(s): I25.10 - Atherosclerotic heart disease of [place] coronary artery without angina pectoris (10) Diabetes mellitus, type 2 Current Visit: No Status: Chronic (11) Hyperlipidemia Current Visit: No Status: Chronic Qualifiers: Hyperlipidemia type: mixed hyperlipidemia Qualified Code(s): E78.2 - Mixed hyperlipidemia (12) ADAN (obstructive sleep apnea) Current Visit: No Status: Chronic Subjective Date of service: 02/01/22 Principal diagnosis: HTNsive urgency; AE-CHF; AE-COPD; Ac on ch hypoxemic resp failure; Obesity Interval history: Patient resting in bed in no acute distress Sinus 80s on monitor with no events on monitor Objective Vital Signs Temp Pulse Pulse Resp Resp BP BP 02/01/22 08:52 02/01/22 08:00 89 18 02/01/22 07:42 97.7 F 75 20 206/101 02/01/22 05:39 157/87 02/01/22 04:05 103 H 01/31/22 23:09 01/31/22 23:08 98.1 F 68 18 137/102 01/31/22 22:00 72 18 01/31/22 21:35 01/31/22 21:34 77 20 01/31/22 21:27 87 162/96 01/31/22 21:26 87 162/96 01/31/22 21:25 87 162/96 01/31/22 20:59 97.4 F L 87 19 162/96 01/31/22 16:06 98.0 F 83 18 193/94 01/31/22 12:57 18 173/79 Pulse Ox 02/01/22 08:52 95 02/01/22 08:00 02/01/22 07:42 100 02/01/22 05:39 02/01/22 04:05 01/31/22 23:09 94 01/31/22 23:08 89 01/31/22 22:00 96 01/31/22 21:35 96 01/31/22 21:34 01/31/22 21:27 01/31/22 21:26 01/31/22 21:25 01/31/22 20:59 94 01/31/22 16:06 98 01/31/22 12:57 - Physical Examination General: No Apparent Distress HEENT: Positive: PERRL Neck: Positive: trachea midline Cardiac: Positive: Reg Rate and Rhythm Lungs: Positive: Normal Breath Sounds Neuro: Positive: Grossly Intact Abdomen: Positive: Soft Skin: Negative: Rash, Suspicious Lesions, Ulceration Extremities: Present: upper extr. pulses, edema (Right lower extremity greater than left lower extremity, possibly hematoma) - Labs and Meds Comprehensive Metabolic Panel 02/01/22 Range/Units 04:23 Sodium 138 (137-145) mmol/L Potassium 3.7 (3.6-5.0) mmol/L Chloride 97.2 L (98-107) mmol/L Carbon Dioxide 30 (22-30) mmol/L BUN 18 H (7-17) mg/dL Creatinine 0.8 (0.6-1.2) mg/dL Glucose 106 H (65-100) mg/dL Calcium 8.8 (8.4-10.2) mg/dL - Imaging and Cardiology Echo: report reviewed - Telemetry EKG Rhythm: Sinus Rhythm - EKG Sinus rhythms and dysrhythmias: sinus rhythm - Allied health notes Allied health notes reviewed: nursing
[2022-02-01] MEDS ORDERED: ALBUTEROL 2.5 MG/3 ML NEBU IH SCH (14:00)
--- NOTE | 2022-02-01 14:04 | Progress Note ---
Assessment and Plan 61-year-old -[place] female with known history of COPD, CHF, coronary artery disease with stent placement in the past, presenting the emergency room today via EMS for evaluation of shortness of breath. Upon arrival of EMS patient was said to be tachypneic and was not on any oxygen. She was tripoding and using accessory muscles of respiration. Initial oxygen saturation was 92% on room air. Patient indicates that she has not followed up with any primary care physician lately and she has not been quite compliant with her medications since primary care physician secondary to COVID. Patient denies any fever or chills, denies any chest pain, no headache or dizziness and no diaphoresis. She indicates that she fell at home and was on the floor for quite some time before getting help to get up from the floor. She denies any head injury, denies any loss of consciousness. Review of patient's records shows: Echo 01/08/2022-EF 50-55%. Mild concentric LVH. Right ventricle mildly dilated. Right ventricle systolic function is grossly normal. Extremities dilated. Moderate to severe tricuspid regurgitation. Echo 09/15/2020-LVEF is 50 to 55%. LV SF is normal. Moderate LVH. RV SF is normal. Moderate pulmonary hypertension cannot be excluded due to poor regurgitant envelope [facility] 06/20/2018 successful PCI with intravascular ultrasound of the ramus with DIANELYS which was 100% culprit vessel with DIANELYS. Left main patent, LAD patent. RCA moderate to severe tortuosity with mid stent patent, circumflex patent, ARIELA 50% with sintia 100% with successful PCI. Acute diastolic dysfunction Echo 03/25/2021 EF 50 to 55%, moderate concentric left ventricular hypertrophy. Right ventricle mildly dilated, right ventricle hypokinetic. Left atrium moderately dilated right atrium mildly dilated. Mild to moderate tricuspid reg urgitation. Moderate pulmonary hypertension. Past Medical History: arthritis, CAD, COPD, diabetes, DVT, hypertension, pulmonary embolism, other (History of gout) Past Surgical History: appendectomy, cholecystectomy, hysterectomy, PTCA, Other (Tonsillectomy) Patient has history of smoking 50 years x 1/1/2 pack for week. Denies alcohol or drug abuse. Not and has three children. Allergic to penicillin. Upon arrival in the emergency room, blood pressure was quite elevated with systolic in the 200s and diastolic in the low 100s. Patient did not respond well to IV hydralazine and metoprolol and was subsequently placed on Cardene drip. Work-up in the emergency room reveals elevated BNP of 11,363. Chest x-ray shows CHF exacerbation. Less severe when compared to prior. Patient being admitted for malignant hypertensive urgency and CHF exacerbation. Patient awake. Morbidly Obese. Resting on venturi mask, FIO2 35% and O2 saturation running 96%. No acute respiratory distress at rest. Patient afebrile. Has no leukocytosis. Blood pressure 186/96 , Pulse 75 , Respirations 18. Chest xray done 01/28/22 reported CHF exacerbation, less severe when compared to prior. Doppler study of right lower extremity done 01/29/22 reported No sonographic evidence for DVT in the right lower extremity. Patient is on Brovanna/Budesonide aerosol treatments q 12 hours, Albuterol inhaler, Famotidine. Recommend DVT prophylaxis. Recommend albuterol/atrovent aerosol treatments prn for shortness of breath. I spent critical care time of 35 minutes obtaining history, review the chart, examine the patient, review chest xray , lab results, talking to the nursing staff, respiratory therapy and work up plan of treatment in this critically ill patient with multiple medical problems. - Patient Problems (1) Acute on chronic systolic (congestive) heart failure Current Visit: Yes Status: Acute Plan to address problem: Patient is on I/V Lasix. Management as per cardiology. (2) COPD exacerbation Current Visit: Yes Status: Acute Plan to address problem: Venturi mask, FIO2 35%. Brovanna/Budesonide aerosol treatments q 12hours. Albuterol/atrovent aerosol treatments q 6 hours prn for shortness of breath. Continue famotidine. Recommend DVT prophylaxis. PFTs as out patient. (3) Acute respiratory failure with hypoxia Current Visit: No Status: Acute Plan to address problem: Venturi mask, FIO2 35%. Brovanna/Budesonide aerosol treatments q 12hours. Albuterol/atrovent aerosol treatments q 6 hours prn for shortness of breath. Continue famotidine. Recommend DVT prophylaxis (4) Hypertensive emergency Current Visit: Yes Status: Acute Plan to address problem: Patient is on nifedipine, Clonidine, Hydralazine, Metaprolol. Management as per primary care and cardiology. (5) Morbid obesity with body mass index of 40.0-49.9 Current Visit: No Status: Acute Plan to address problem: Recommend to loose weight. (6) Nicotine dependence Current Visit: No Status: Acute Qualifiers: Substance use status: in withdrawal Plan to address problem: Counseled to stop smoking. (7) Obesity hypoventilation syndrome Current Visit: No Status: Acute Plan to address problem: ABGs on room air during day time. Recommend to loose weight. BIPAP during night time, PRN for sleepiness or shortness of breath during day time. (8) ADAN (obstructive sleep apnea) Current Visit: No Status: Chronic Plan to address problem: BIPAP during night time. (9) Diabetes mellitus, type 2 Current Visit: No Status: Chronic Plan to address problem: Management as per primary care. (10) Pulmonary hypertension Current Visit: No Status: Chronic Plan to address problem: Echocardiogram 03/25/21 reported moderate pulmonary hypertension. Subjective Date of service: 02/01/22 Principal diagnosis: HTNsive urgency; AE-CHF; AE-COPD; Ac on ch hypoxemic resp failure; Obesity Interval history: 61-year-old -[place] female with known history of COPD, CHF, coronary artery disease with stent placement in the past, presenting the emergency room today via EMS for evaluation of shortness of breath. Upon arrival of EMS patient was said to be tachypneic and was not on any oxygen. She was tripoding and using accessory muscles of respiration. Initial oxygen saturation was 92% on room air. Patient indicates that she has not followed up with any primary care physician lately and she has not been quite compliant with her medications since primary care physician secondary to COVID. Patient denies any fever or chills, denies any chest pain, no headache or dizziness and no diaphoresis. She indicates that she fell at home and was on the floor for quite some time before getting help to get up from the floor. She denies any head injury, denies any loss of consciousness. Review of patient's records shows: Echo 01/08/2022-EF 50-55%. Mild concentric LVH. Right ventricle mildly dilated. Right ventricle systolic function is grossly normal. Extremities dilated. Moderate to severe tricuspid regurgitation. Echo 09/15/2020-LVEF is 50 to 55%. LV SF is normal. Moderate LVH. RV SF is normal. Moderate pulmonary hypertension cannot be excluded due to poor regurgi tant envelope [facility] 06/20/2018 successful PCI with intravascular ultrasound of the ramus with DIANELYS which was 100% culprit vessel with DIANELYS. Left main patent, LAD patent. RCA moderate to severe tortuosity with mid stent patent, circumflex patent, ARIELA 50% with sintia 100% with successful PCI. Acute diastolic dysfunction Echo 03/25/2021 EF 50 to 55%, moderate concentric left ventricular hypertrophy. Right ventricle mildly dilated, right ventricle hypokinetic. Left atrium moderately dilated right atrium mildly dilated. Mild to moderate tricuspid regurgitation. Moderate pulmonary hypertension. Past Medical History: arthritis, CAD, COPD, diabetes, DVT, hypertension, pulmonary embolism, other (History of gout) Past Surgical History: appendectomy, cholecystectomy, hysterectomy, PTCA, Other (Tonsillectomy) Patient has history of smoking 50 years x 1/1/2 pack for week. Denies alcohol or drug abuse. Not and has three children. Allergic to penicillin. Upon arrival in the emergency room, blood pressure was quite elevated with systolic in the 200s and diastolic in the low 100s. Patient did not respond well to IV hydralazine and metoprolol and was subsequently placed on Cardene drip. Work-up in the emergency room reveals elevated BNP of 11,363. Chest x-ray shows CHF exacerbation. Less severe when compared to prior. Patient being admitted for malignant hypertensive urgency and CHF exacerbation. Patient awake. Morbidly Obese. Resting on venturi mask, FIO2 35% and O2 saturation running 96%. No acute respiratory distress at rest. Patient afebrile. Has no leukocytosis. Blood pressure 186/96 , Pulse 75 , Respirations 18. Chest xray done 01/28/22 reported CHF exacerbation, less severe when compared to prior. Doppler study of right lower extremity done 01/29/22 reported No sonographic evidence for DVT in the right lower extremity. Patient is on Brovanna/Budesonide aerosol treatments q 12 hours, Albuterol inhaler, Famotidine. Recommend DVT prophylaxis. Recommend albuterol/atrovent aerosol treatments prn for shortness of breath. Objective Vital Signs - 12hr 02/01/22 02/01/22 02/01/22 04:05 05:39 07:42 Temperature 97.7 F Pulse Rate 103 H 75 Pulse Rate [ Throughout] Respiratory 20 Rate Respiratory Rate [ Throughout] Blood Pressure 157/87 206/101 O2 Sat by Pulse 100 Oximetry 02/01/22 02/01/22 02/01/22 08:00 08:52 10:00 Temperature Pulse Rate 75 Pulse Rate [ 89 Throughout] Respiratory 18 Rate Respiratory 18 Rate [ Throughout] Blood Pressure O2 Sat by Pulse 95 96 Oximetry Constitutional: no acute distress, alert, other (elderly Morbidly obese female with mildly increased respiratory effort at rest) Eyes: non-icteric ENT: oropharynx moist Neck: supple, no lymphadenopathy, no JVD, other (large circumference) Effort: mildly labored Ascultation: Bilateral: diminished breath sounds Percussion: Bilateral: not dull Cardiovascular: regular rate and rhythm Gastrointestinal: normoactive bowel sounds, soft, non-tender, non-distended (protuberant) Integumentary: normal Extremities: no cyanosis, no edema, pulses normal, no ischemia or petechiae Neurologic: non-focal exam, pupils equal and round, CN II-XII normal, motor strength normal and Psychiatric: mood appropriate, affect normal CBC and BMP: 01/28/22 16:32 02/01/22 04:23 ABG, PT/INR, D-dimer: PT/INR, D-dimer PT 15.3 Sec. (12.2-14.9) H 01/28/22 16:32 INR 1.09 (0.87-1.13) 01/28/22 16:32 Abnormal lab findings: Abnormal Labs 01/28/22 01/28/22 01/28/22 16:32 16:32 16:32 RBC 5.13 H MCV 69 L MCH 21 L RDW 25.0 H Seg Neuts % (Manual) 88.0 H Lymphocytes % (Manual) 6.0 L Lymphocytes # (Manual) 0.3 L PT 15.3 H Chloride Carbon Dioxide BUN Glucose POC Glucose ALT 6 L Alkaline Phosphatase 221 H CK-MB (CK-2) Rel Index NT-Pro-B Natriuret Pep Lipase 12 L 01/28/22 01/28/22 01/29/22 16:32 16:32 04:07 RBC MCV MCH RDW Seg Neuts % (Manual) Lymphocytes % (Manual) Lymphocytes # (Manual) PT Chloride Carbon Dioxide BUN Glucose 210 H POC Glucose ALT Alkaline Phosphatase CK-MB (CK-2) Rel Index 8.2 H NT-Pro-B Natriuret Pep 13560 H Lipase 01/29/22 01/29/22 01/29/22 07:31 11:08 16:05 RBC MCV MCH RDW Seg Neuts % (Manual) Lymphocytes % (Manual) Lymphocytes # (Manual) PT Chloride Carbon Dioxide BUN Glucose POC Glucose 164 H 162 H 133 H ALT Alkaline Phosphatase CK-MB (CK-2) Rel Index NT-Pro-B Natriuret Pep Lipase 01/29/22 01/30/22 01/30/22 21:53 07:39 10:21 RBC MCV MCH RDW Seg Neuts % (Manual) Lymphocytes % (Manual) Lymphocytes # (Manual) PT Chloride Carbon Dioxide 31 H BUN 23 H Glucose 108 H POC Glucose 166 H 133 H ALT Alkaline Phosphatase CK-MB (CK-2) Rel Index NT-Pro-B Natriuret Pep Lipase 01/30/22 01/30/22 01/31/22 11:20 22:25 05:32 RBC MCV MCH RDW Seg Neuts % (Manual) Lymphocytes % (Manual) Lymphocytes # (Manual) PT Chloride Carbon Dioxide 31 H BUN 22 H Glucose POC Glucose 110 H 115 H ALT Alkaline Phosphatase CK-MB (CK-2) Rel Index NT-Pro-B Natriuret Pep Lipase 01/31/22 01/31/22 01/31/22 08:27 11:26 15:27 RBC MCV MCH RDW Seg Neuts % (Manual) Lymphocytes % (Manual) Lymphocytes # (Manual) PT Chloride Carbon Dioxide BUN Glucose POC Glucose 119 H 112 H 110 H ALT Alkaline Phosphatase CK-MB (CK-2) Rel Index NT-Pro-B Natriuret Pep Lipase 01/31/22 02/01/22 02/01/22 20:45 04:23 07:43 RBC MCV MCH RDW Seg Neuts % (Manual) Lymphocytes % (Manual) Lymphocytes # (Manual) PT Chloride 97.2 L Carbon Dioxide BUN 18 H Glucose 106 H POC Glucose 112 H 130 H ALT Alkaline Phosphatase CK-MB (CK-2) Rel Index NT-Pro-B Natriuret Pep Lipase Allied health notes reviewed: nursing
[2022-02-01] MEDS: IPRATROPIUM 0.02% NEBU 2.5 ML IH SCH (14:43)
[2022-02-01] MEDS ORDERED: ALBUTEROL 2.5 MG/3 ML NEBU IH PRN (15:00)
[2022-02-01] MEDS: HYDROmorphone 2 MG TAB PO PRN (18:07)
[2022-02-01] MEDS: MONTELUKAST 10 MG TAB PO SCH (22:56)
[2022-02-02] MEDS: HYDROmorphone 2 MG TAB PO PRN (01:35)
[2022-02-02] MEDS: ALPRAZolam 0.5 MG TAB PO PRN (01:35)
[2022-02-02] MEDS: FUROSEMIDE 40 MG/4 ML INJ IV SCH ×2 (05:58→18:17)
[2022-02-02] MEDS: hydrALAZINE 100 MG TAB PO SCH ×3 (05:58→22:07)
[2022-02-02] MEDS: INSULIN LISPRO 100 UNIT/ML SUB-Q SCH ×4 (08:30→21:07)
[2022-02-02] MEDS: CLOPIDOGREL 75 MG TAB PO SCH (09:41)
[2022-02-02] MEDS: VALSARTAN 160MG TAB PO SCH ×2 (09:41→22:07)
[2022-02-02] MEDS: MULTIVITAMINS,THER W-MINERALS TAB PO SCH (09:42)
[2022-02-02] MEDS: NIFEdipine XL 90 MG TAB PO SCH (09:42)
[2022-02-02] MEDS: METOPROLOL TARTRATE 50 MG TAB PO SCH ×2 (09:42→22:22)
[2022-02-02] MEDS: FAMOTIDINE 20 MG TAB PO SCH (09:42)
[2022-02-02] MEDS: ASPIRIN EC 81 MG TAB PO SCH (09:42)
[2022-02-02] MEDS: CITALOPRAM 20 MG TAB PO SCH (09:42)
[2022-02-02] MEDS: BUDESONIDE 0.5 MG/2 ML NEBU IH SCH ×2 (10:03→21:38)
[2022-02-02] MEDS: IPRATROPIUM 0.02% NEBU 2.5 ML IH SCH ×3 (10:03→21:38)
[2022-02-02] MEDS: ARFORMOTEROL 15 MCG/2 ML NEBU IH SCH ×2 (10:03→21:37)
[2022-02-02] MEDS: cloNIDine 0.1 MG TAB PO SCH ×2 (11:00→22:06)
--- NOTE | 2022-02-02 11:26 | Progress Note ---
Assessment and Plan Hypertensive emergency * BP is currently well controlled. Continue current therapy Heart failure preserved ejection fraction in setting of cardiomyopathy * Patient is 3-4+ bilateral lower edema and bilateral rails lower lobes. She continues to produce urine. We will continue to diurese with Lasix 40 mg IV twice daily * Echo 01/08/2022-EF 50-55%. Mild concentric LVH. Right ventricle mildly dilated. Right ventricle systolic function is grossly normal. Extremities dilated. Moderate to severe tricuspid regurgitation. * GDMT, strict I&O's Coronary artery disease * Continue dual antiplatelet therapy with aspirin Plavix * [facility] 06/20/2018 successful PCI with intravascular ultrasound of the ramus with DIANELYS which was 100% culprit vessel with DIANELYS. Left main patent, LAD patent. RCA mmoderate to severe tortuosity with mid stent patent, circumflex pateent, ARIELA 50% with sintia 100% with successful PCI. Acute diastolic dysfunction Chronic hypoxic respiratory failure in setting of known COPD * On home O2. Currently on nasal cannula Patient currently stable cardiac status. Continue to diurese. Patient seen in conjunction with Dr. Brian who agrees with this plan of care. - Patient Problems (1) COPD exacerbation Current Visit: Yes Status: Acute (2) Hypertensive emergency Current Visit: Yes Status: Acute (3) Medical non-compliance Current Visit: Yes Status: Chronic (4) Acute and chronic respiratory failure Current Visit: No Status: Acute Qualifiers: Respiratory failure complication: hypoxia Qualified Code(s): J96.21 - Acute and chronic respiratory failure with hypoxia (5) Acute on chronic diastolic heart failure Current Visit: No Status: Acute (6) Cardiomyopathy Current Visit: No Status: Acute (7) Morbid obesity with body mass index of 40.0-49.9 Current Visit: No Status: Acute (8) Obesity hypoventilation syndrome Current Visit: No Status: Acute (9) CAD (coronary artery disease) Current Visit: No Status: Chronic Qualifiers: Coronary Disease-Associated Artery/Lesion type: [place] artery [place] vs. transplanted heart: [place] heart Associated angina: without angina Qualified Code(s): I25.10 - Atherosclerotic heart disease of [place] coronary artery without angina pectoris (10) Diabetes mellitus, type 2 Current Visit: No Status: Chronic (11) Hyperlipidemia Current Visit: No Status: Chronic Qualifiers: Hyperlipidemia type: mixed hyperlipidemia Qualified Code(s): E78.2 - Mixed hyperlipidemia (12) ADAN (obstructive sleep apnea) Current Visit: No Status: Chronic Subjective Date of service: 02/01/22 Principal diagnosis: HTNsive urgency; AE-CHF; AE-COPD; Ac on ch hypoxemic resp failure; Obesity Interval history: Subjective Date of service: 02/02/22 Principal diagnosis: HTNsive urgency; AE-CHF; AE-COPD; Ac on ch hypoxemic resp failure; Obesity Interval history: Patient resting comfortably in bed no shortness of breath or chest pain overni t. Telemetry shows sinus rhythm 64 1 episode of 5 beat V. tach noted overnight Objective Last Vital Signs Temp 98.4 F 02/02/22 07:20 Pulse 64 02/02/22 07:20 Resp 18 02/02/22 07:20 BP 143/81 02/02/22 07:20 Pulse Ox 94 02/02/22 07:20 - Physical Examination General: No Apparent Distress HEENT: Positive: PERRL Neck: Positive: trachea midline Cardiac: Positive: Reg Rate and Rhythm Lungs: Positive: Normal Exam Neuro: Positive: Grossly Intact Abdomen: Positive: Soft Skin: Negative: Rash, Suspicious Lesions, Ulceration Musculoskeletal: No Pain, Normal Range of Motion Extremities: Present: upper extr. pulses, +3 Edema - Imaging and Cardiology Echo: report reviewed - Telemetry EKG Rhythm: Sinus Rhythm - EKG Sinus rhythms and dysrhythmias: sinus rhythm - Allied health notes Allied health notes reviewed: nursing
--- NOTE | 2022-02-02 12:44 | Progress Note ---
Assessment and Plan Assessment and plan: Interval history: This is 61-year-old female with COPD, CHF, PE, CAD s/p stent placement and noncompliance who presented to the emergency department on 01/28 with complaints of shortness of breath via EMS. Upon EMS arrival patient was tachypneic, not on any oxygen tripod positioned and using accessory muscles for respirations and SPO2 was 92% on room air. Patient also noted that she fell at home and was on the floor for quite some time before getting help to get up from the floor. Upon arrival to the emergency department patient's blood pressure was in the 200s over 100s and she did not respond to IV hydralazine and metoprolol and was placed on a Cardene drip and CXR showed CSF exacerbation. Patient was admitted to the hospitalist service with consult to cardiology with malignant hypertensive urgency and CHF exacerbation. Hospital course to date: 01/29: Patient has been weaned off of Cardene drip and will be started on p.o. metoprolol, hydralazine, Imdur and valsartan. PT/OT consulted. We will obtain right lower extremity ultrasound for swelling to rule out DVT. Patient will transfer to telemetry. 01/30: Swelling improved in lower extremity. LE US negative for DVT. Dispo: [facility] per PT notes. D/w CM who have initiated work on referral/auth process. 01/31: significant urine OP. good response to diuresis. Improvement seen on exam, decresae in LE edema. Ordered BMP for tomorrow AM. Xanax prn anxiety and percocet prn mod pain as patient complaining of chest wall pain and anxiety associated with hospitalization . Pending placement to [facility]. 02/01: Awaiting placement to [facility]. Currently requiring 4L NC satting 94%. Wean as sats tolerate > 90%. D/c percocet as patient has inadequate pain control. Started on dilaudid po. Blood pressure high, patient was refusing last night's meds. Educated on needs for meds on continuous basis today. Patient agreed to taking meds, f/u bp in afternoon 150's sbp. Still awaiting placement to [facility]. 02/02: Awaiting placement to [facility]. Assessment and Plan: Neuro: Noncompliance, anxiety -Reorientation as needed -Maintain sleep-wake cycle -As needed analgesia -Medical compliance strongly encouraged -Continue home Celexa - xanax prn anxiety Cardiac: Hypertensive urgency, acute on chronic diastolic heart failure, CAD s/p stent (06/2018) -Cardiology consulted, appreciate recommendations -Blood pressure monitoring per protocol -S/p Cardene drip -P.o. hydralazine, metoprolol, Imdur, valsartan -Admit proBNP 11,363 -Lasix 40 mg twice daily -Plavix, aspirin, Lipitor -01/09/2020 echocardiogram shows EF of 50 to 55% -Of note: Echo 09/15/2020-LVEF is 50 to 55%. LV SF is normal. Moderate LVH. RV SF is normal. Moderate pulmonary hypertension cannot be excluded due to poor regurgitant envelope [facility] 06/20/2018 successful PCI with intravascular ultrasound of the ramus with DIANELYS which was 100% culprit vessel with DIANELYS. Left main patent, LAD patent. RCA mmoderate to severe tortuosity with mid stent patent, circumflex pateent, ARIELA 50% with sintia 100% with successful PCI. Acute diastolic dysfunction Echo 03/25/2021 EF 50 to 55%, moderate concentric left ventricular hypertrophy. Right ventricle mildly dilated, right ventricle hypokinetic. Left atrium moderately dilated right atrium mildly dilated. Mild to moderate tricuspid regurgitation. Moderate pulmonary hypertension. Respiratory: Acute on chronic hypoxic respiratory failure (2 L nasal cannula at home), current nicotine abuse -Initially presented with shortness of breath -[facility] consulted, appreciate recommendations -Continue nasal cannula -SPO2 monitor per protocol -Supplemental oxygen as needed -Pulmonary hygiene -Continue Brovana, Singulair, Pulmicort -Tobacco cessation counseling provided GI: Morbid obesity -24 hours +38 mL -PPI -cc cardiac diet : NAD -Monitor intake and output -Renally dose medications -Avoid nephrotoxic medications ID: NAD -f/u blood culture -Monitor WBC and temperature curve Endo: Hyperglycemia -Avoid hypoglycemia -SSI -Accu-Cheks ACHS -hbg a1c pending Heme: r/o DVT, h/o PE -Left lower extremity Doppler ultrasound pending swelling -Trend CBC -Transfuse hemoglobin less than 7 -SCDs to BLE while in bed #Advance care planning Disease education conducted, care plan discussed, diagnoses discussed, prognosis discussed, patient is full code, patient acknowledges understanding and agree with care plan, +30 minutes. History Interval history: No acute complaints today. Hospitalist Physical - Physical exam Narrative exam: General appearance: Present: no acute distress, obese - EENT Eyes: Present: PERRL, EOM intact ENT: hearing intact, clear oral mucosa, dentition normal - Neck Neck: Present: normal ROM - Respiratory Respiratory effort: normal Respiratory: bilateral: CTA, diminished - Cardiovascular Rhythm: regular Heart Sounds: Present: S1 & S2. Absent: systolic murmur, diastolic murmur - Extremities Extremities: no ischemia, pulses intact, pulses symmetrical Extremity abnormal: edema Peripheral Pulses: within normal limits - Abdominal General gastrointestinal: soft, non-tender, non-distended, normal bowel sounds - Integumentary Integumentary: Present: warm, dry - Psychiatric Psychiatric: cooperative - Neurologic Neurologic: CNII-XII intact, no focal deficits, moves all extremities - Allied Health Allied health notes reviewed: nursing, RT, social work - Constitutional Vitals: Temp Pulse Resp BP Pulse Ox 98.0 F 65 18 135/79 95 02/02/22 11:30 02/02/22 11:30 02/02/22 11:30 02/02/22 11:30 02/02/22 11:30 General appearance: Present: no acute distress, obese HEART Score - HEART Score Troponin: Troponin T < 0.010 ng/mL (0.00-0.029) 01/28/22 16:32 Results - Labs CBC & Chem 7: 01/28/22 16:32 02/01/22 04:23 Labs: Laboratory Last Values WBC 5.8 K/mm3 (4.5-11.0) 01/28/22 16:32 RBC 5.13 M/mm3 (3.65-5.03) H 01/28/22 16:32 Hgb 10.8 gm/dl (10.1-14.3) 01/28/22 16:32 Hct 35.3 % (30.3-42.9) 01/28/22 16:32 MCV 69 fl (79-97) L 01/28/22 16:32 MCH 21 pg (28-32) L 01/28/22 16:32 MCHC 31 % (30-34) 01/28/22 16:32 RDW 25.0 % (13.2-15.2) H 01/28/22 16:32 Plt Count 309 K/mm3 (140-440) 01/28/22 16:32 Add Manual Diff Complete 01/28/22 16:32 Total Counted 100 01/28/22 16:32 Seg Neuts % (Manual) 88.0 % (40.0-70.0) H 01/28/22 16:32 Band Neutrophils % 0 % 01/28/22 16:32 Lymphocytes % (Manual) 6.0 % (13.4-35.0) L 01/28/22 16:32 Reactive Lymphs % (Man) 0 % 01/28/22 16:32 Monocytes % (Manual) 5.0 % (0.0-7.3) 01/28/22 16:32 Eosinophils % (Manual) 1.0 % (0.0-4.3) 01/28/22 16:32 Basophils % (Manual) 0 % (0.0-1.8) 01/28/22 16:32 Metamyelocytes % 0 % 01/28/22 16:32 Myelocytes % 0 % 01/28/22 16:32 Promyelocytes % 0 % 01/28/22 16:32 Blast Cells % 0 % 01/28/22 16:32 Nucleated RBC % Not Reportable 01/28/22 16:32 Seg Neutrophils # Man 5.1 K/mm3 (1.8-7.7) 01/28/22 16:32 Band Neutrophils # 0.0 K/mm3 01/28/22 16:32 Lymphocytes # (Manual) 0.3 K/mm3 (1.2-5.4) L 01/28/22 16:32 Abs React Lymphs (Man) 0.0 K/mm3 01/28/22 16:32 Monocytes # (Manual) 0.3 K/mm3 (0.0-0.8) 01/28/22 16:32 Eosinophils # (Manual) 0.1 K/mm3 (0.0-0.4) 01/28/22 16:32 Basophils # (Manual) 0.0 K/mm3 (0.0-0.1) 01/28/22 16:32 Metamyelocytes # 0.0 K/mm3 01/28/22 16:32 Myelocytes # 0.0 K/mm3 01/28/22 16:32 Promyelocytes # 0.0 K/mm3 01/28/22 16:32 Blast Cells # 0.0 K/mm3 01/28/22 16:32 WBC Morphology Not Reportable 01/28/22 16:32 Hypersegmented Neuts Not Reportable 01/28/22 16:32 Hyposegmented Neuts Not Reportable 01/28/22 16:32 Hypogranular Neuts Not Reportable 01/28/22 16:32 Smudge Cells Not Reportable 01/28/22 16:32 Toxic Granulation Not Reportable 01/28/22 16:32 Toxic Vacuolation Not Reportable 01/28/22 16:32 Dohle Bodies Not Reportable 01/28/22 16:32 Pelger-Huet Anomaly Not Reportable 01/28/22 16:32 Juan Rods Not Reportable 01/28/22 16:32 Platelet Estimate Consistent w auto 01/28/22 16:32 Clumped Platelets Not Reportable 01/28/22 16:32 Plt Clumps, EDTA Not Reportable 01/28/22 16:32 Large Platelets Not Reportable 01/28/22 16:32 Giant Platelets Few 01/28/22 16:32 Platelet Satelliting Not Reportable 01/28/22 16:32 Plt Morphology Comment Not Reportable 01/28/22 16:32 RBC Morphology Not Reportable 01/28/22 16:32 Dimorphic RBCs Not Reportable 01/28/22 16:32 Polychromasia Not Reportable 01/28/22 16:32 Hypochromasia 2+ 01/28/22 16:32 Poikilocytosis Not Reportable 01/28/22 16:32 Anisocytosis 2+ 01/28/22 16:32 Microcytosis 2+ 01/28/22 16:32 Macrocytosis Not Reportable 01/28/22 16:32 Spherocytes Not Reportable 01/28/22 16:32 Pappenheimer Bodies Not Reportable 01/28/22 16:32 Sickle Cells Not Reportable 01/28/22 16:32 Target Cells Few 01/28/22 16:32 Tear Drop Cells Not Reportable 01/28/22 16:32 Ovalocytes Few 01/28/22 16:32 Helmet Cells Not Reportable 01/28/22 16:32 [place] Bodies Not Reportable 01/28/22 16:32 [place] Rings Not Reportable 01/28/22 16:32 Joanna Cells Not Reportable 01/28/22 16:32 Bite Cells Not Reportable 01/28/22 16:32 Crenated Cell Not Reportable 01/28/22 16:32 Elliptocytes Few 01/28/22 16:32 Acanthocytes (Spur) Not Reportable 01/28/22 16:32 Rouleaux Not Reportable 01/28/22 16:32 Hemoglobin C Crystals Not Reportable 01/28/22 16:32 Schistocytes Not Reportable 01/28/22 16:32 Malaria parasites Not Reportable 01/28/22 16:32 Didier Bodies Not Reportable 01/28/22 16:32 Hem Pathologist Commnt No 01/28/22 16:32 PT 15.3 Sec. (12.2-14.9) H 01/28/22 16:32 INR 1.09 (0.87-1.13) 01/28/22 16:32 Sodium 138 mmol/L (137-145) 02/01/22 04:23 Potassium 3.7 mmol/L (3.6-5.0) 02/01/22 04:23 Chloride 97.2 mmol/L (98-107) L 02/01/22 04:23 Carbon Dioxide 30 mmol/L (22-30) 02/01/22 04:23 Anion Gap 15 mmol/L 02/01/22 04:23 BUN 18 mg/dL (7-17) H 02/01/22 04:23 Creatinine 0.8 mg/dL (0.6-1.2) 02/01/22 04:23 Estimated GFR > 60 ml/min 02/01/22 04:23 BUN/Creatinine Ratio 23 % 02/01/22 04:23 Glucose 106 mg/dL (65-100) H 02/01/22 04:23 POC Glucose 124 mg/dL (70-105) H 02/02/22 11:03 Hemoglobin A1c 6.0 % (4-6) 01/28/22 16:32 Ketones Quantitative Negative (Negative) 01/28/22 16:32 Lactic Acid 1.90 mmol/L (0.7-2.0) 01/28/22 16:32 Calcium 8.8 mg/dL (8.4-10.2) 02/01/22 04:23 Magnesium 1.80 mg/dL (1.7-2.3) 02/01/22 04:23 Total Bilirubin 0.60 mg/dL (0.1-1.2) 01/28/22 16:32 AST 11 units/L (5-40) 01/28/22 16:32 ALT 6 units/L (7-56) L 01/28/22 16:32 Alkaline Phosphatase 221 units/L (35-129) H 01/28/22 16:32 Total Creatine Kinase 34 units/L (30-135) 01/28/22 16:32 Total Creatine Kinase 39 units/L (30-135) 01/28/22 16:32 CK-MB (CK-2) 2.8 ng/mL (0.0-4.0) 01/28/22 16:32 CK-MB (CK-2) Rel Index 8.2 (0-4) H 01/28/22 16:32 Troponin T < 0.010 ng/mL (0.00-0.029) 01/28/22 16:32 NT-Pro-B Natriuret Pep 56293 pg/mL (0-900) H 01/28/22 16:32 Total Protein 7.8 g/dL (6.3-8.2) 01/28/22 16:32 Albumin 3.9 g/dL (3.9-5) 01/28/22 16:32 Albumin/Globulin Ratio 1.0 % 01/28/22 16:32 Lipase 12 units/L (13-60) L 01/28/22 16:32 Urine Color Yellow (Yellow) 01/28/22 17:02 Urine Turbidity Clear (Clear) 01/28/22 17:02 Specific [place] (Man) 1.010 (1.003-1.030) 01/28/22 17:02 Ur Protein (Man) 1+ mg/dL (Negative) 01/28/22 17:02 Ur Ketones (Man) Negative (Negative) 01/28/22 17:02 Ur Nitrite (Man) Positive (Negative) 01/28/22 17:02 Urine Bilirubin (Man) Negative (Negative) 01/28/22 17:02 Leukocyte Esterase (Man) Negative (Negative) 01/28/22 17:02 Urine WBC (Auto) 4.0 /HPF (0.0-6.0) 01/28/22 17:02 Urine RBC (Auto) 1.0 /HPF (0.0-6.0) 01/28/22 17:02 Urine RBC (Manual) 1+ (Negative) 01/28/22 17:02 Urine Mucus Few /HPF 01/28/22 17:02 Urine Opiates Screen Presumptive negative 01/28/22 17:02 Urine Methadone Screen Presumptive negative 01/28/22 17:02 Ur Barbiturates Screen Presumptive negative 01/28/22 17:02 Ur Phencyclidine Scrn Presumptive negative 01/28/22 17:02 Ur Amphetamines Screen Presumptive negative 01/28/22 17:02 U Benzodiazepines Scrn Presumptive negative 01/28/22 17:02 Urine Cocaine Screen Presumptive negative 01/28/22 17:02 U Marijuana (THC) Screen Presumptive negative 01/28/22 17:02 Drugs of Abuse Note Disclamer 01/28/22 17:02 Fabian/IV: Voiding Method External Female Catheter Active Medications - Current Medications Current Medications: Generic Name Dose Route Start Last Admin Trade Name Freq PRN Reason Stop Dose Admin Acetaminophen 650 mg 01/28/22 23:53 01/31/22 09:34 Acetaminophen 325 Mg Tab PO 650 mg Q4H PRN Administration Pain MILD(1-3)/Fever >100.5/ALAS Albuterol 2.5 mg 02/01/22 15:00 02/01/22 14:43 Albuterol 2.5 Mg/3 Ml Nebu IH 2.5 mg Q4HRT PRN Administration Shortness Of Breath Alprazolam 0.5 mg 01/31/22 14:31 02/02/22 01:35 Alprazolam 0.5 Mg Tab PO 0.5 mg Q8H PRN Administration Anxiety Arformoterol Tartrate 15 mcg 01/29/22 20:00 02/02/22 10:03 Arformoterol 15 Mcg/2 Ml Nebu IH 15 mcg Q12HRT ANN MARIE Administration Aspirin 81 mg 01/29/22 10:00 02/02/22 09:42 Aspirin Ec 81 Mg Tab PO 81 mg QDAY ANN MARIE Administration Atorvastatin Calcium 40 mg 01/29/22 22:00 02/01/22 22:53 Atorvastatin 40 Mg Tab PO 40 mg QHS ANN MARIE Administration Budesonide 0.5 mg 01/29/22 20:00 02/02/22 10:03 Budesonide 0.5 Mg/2 Ml Nebu IH 0.5 mg Q12HRT ANN MARIE Administration Citalopram Hydrobromide 20 mg 01/29/22 10:00 02/02/22 09:42 Citalopram 20 Mg Tab PO 20 mg QDAY ANN MARIE Administration Clonidine HCl 0.2 mg 02/01/22 12:00 02/02/22 11:00 Clonidine 0.1 Mg Tab PO Not Given Q12HR ANN MARIE Clopidogrel Bisulfate 75 mg 01/29/22 10:00 02/02/22 09:41 Clopidogrel 75 Mg Tab PO 75 mg QDAY ANN MARIE Administration Dextrose 0 ml 01/28/22 23:53 Dextrose 50% In Water (25gm) 50 Ml Syringe IV Q30MIN PRN Hypoglycemia Protocol Famotidine 20 mg 01/29/22 10:00 02/02/22 09:42 Famotidine 20 Mg Tab PO 20 mg DAILY ANN MARIE Administration Furosemide 40 mg 01/29/22 06:00 02/02/22 05:58 Furosemide 40 Mg/4 Ml Inj IV 40 mg BID@0600,1800 ANN MARIE Administration Hydralazine HCl 100 mg 01/29/22 14:00 02/02/22 05:58 Hydralazine 100 Mg Tab PO 100 mg Q8HR ANN MARIE Administration Hydralazine HCl 10 mg 01/29/22 13:15 02/01/22 14:38 Hydralazine 20 Mg/1 Ml Inj IV 10 mg Q4HR PRN Administration Hypertension Hydromorphone HCl 1 mg 02/01/22 17:21 02/02/22 01:35 Hydromorphone 2 Mg Tab PO 1 mg Q6H PRN Administration Pain , Severe (7-10) Insulin Human Lispro 0 unit 01/29/22 07:30 02/02/22 08:30 Insulin Lispro 100 Unit/Ml SUB-Q Not Given [facility] Protocol Ipratropium [place] 0.5 mg 02/01/22 14:00 02/02/22 10:03 Ipratropium 0.02% Nebu 2.5 Ml IH 0.5 mg Q6HRT ANN MARIE Administration Isosorbide Mononitrate 60 mg 01/29/22 10:00 02/02/22 09:42 Isosorbide Mononitrate Er 60 Mg Tab PO 60 mg QDAY ANN MARIE Administration Magnesium Hydroxide 30 ml 01/28/22 23:53 Magnesium Hydroxide (Mom) Oral Liqd Udc PO Q4H PRN Constipation Metoprolol Tartrate 100 mg 01/31/22 22:00 02/02/22 09:42 Metoprolol Tartrate 50 Mg Tab PO 100 mg BID ANN MARIE Administration Montelukast Sodium 10 mg 01/29/22 22:00 02/01/22 22:56 Montelukast 10 Mg Tab PO 10 mg QHS ANN MARIE Administration Multivitamins/Minerals 1 each 01/29/22 10:00 02/02/22 09:42 Multivitamins,Ther W-Minerals Tab PO 1 each QDAY ANN MARIE Administration Nifedipine 90 mg 01/30/22 10:00 02/02/22 09:42 Nifedipine Xl 90 Mg Tab PO 90 mg QDAY ANN MARIE Administration Ondansetron HCl 4 mg 01/28/22 23:53 01/29/22 15:28 Ondansetron 4 Mg/2 Ml Inj IV 4 mg Q8H PRN Administration Nausea And Vomiting Sodium Chloride 10 ml 01/29/22 10:00 02/02/22 09:44 Sodium Chloride 0.9% 10 Ml Flush Syringe IV 10 ml BID ANN MARIE Administration Sodium Chloride 10 ml 01/28/22 23:53 01/31/22 06:13 Sodium Chloride 0.9% 10 Ml Flush Syringe IV 10 ml PRN PRN Administration LINE FLUSH Valsartan 160 mg 01/29/22 11:00 02/02/22 09:41 Valsartan 160mg Tab PO 160 mg BID ANN MARIE Administration Nutrition/Malnutrition Assess - Dietary Evaluation Nutrition/Malnutrition Findings: Nutrition Notes Start: 01/29/22 13:57 Freq: Status: Active Protocol: Document 01/29/22 13:57 FREDERICK (Rec: 01/29/22 14:08 FREDERICK [id number]) Nutrition Notes Need for Assessment generated from: MD Order,Education Initial or Follow up Brief Note Current Diagnosis COPD,Coronary Artery Disease, Hypertension Other Pertinent Diagnosis CHF, DVT, PE, Cardiomyopathy. Current Diet Cardiac/Consistent Carbohydrates Diet (since B ). 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 Weight Status Morbidly Obese Subjective/Other Information RD consult for nutrition education assessment. No reports available on Pt's PO intake of meals at the time , will assess at F/U. Pt is on Nasal Cannula, O2 saturation @ 94%, according to Physical Assessment History notes. Pt has caries and missing teeth, according to Physical Assessment History notes. Pt presents Bilateral-LE Pitting Edema 2+, according to Physical Assessment History notes. Pt still in critical condition , not a candidate for Nutrition Education at the time, will assess feasibility on F/U. Percent of energy/protein needs met: Prescribed Cardiac/Consistent Carbohydrates Diet provides for energy/protein needs (1, 977 Kcal/86 g) during LOS. Nutrition Intervention Follow-Up By: 02/05/22 Additional Comments Nutrition education will be provided at F/U, if feasible. Continue monitoring food tolerance, %PO intake of meals , and BM.
--- NOTE | 2022-02-02 13:11 | Progress Note ---
Assessment and Plan 61-year-old -[place] female with known history of COPD, CHF, coronary artery disease with stent placement in the past, presenting the emergency room today via EMS for evaluation of shortness of breath. Upon arrival of EMS patient was said to be tachypneic and was not on any oxygen. She was tripoding and using accessory muscles of respiration. Initial oxygen saturation was 92% on room air. Patient indicates that she has not followed up with any primary care physician lately and she has not been quite compliant with her medications since primary care physician secondary to COVID. Patient denies any fever or chills, denies any chest pain, no headache or dizziness and no diaphoresis. She indicates that she fell at home and was on the floor for quite some time before getting help to get up from the floor. She denies any head injury, denies any loss of consciousness. Review of patient's records shows: Echo 01/08/2022-EF 50-55%. Mild concentric LVH. Right ventricle mildly dilated. Right ventricle systolic function is grossly normal. Extremities dilated. Moderate to severe tricuspid regurgitation. Echo 09/15/2020-LVEF is 50 to 55%. LV SF is normal. Moderate LVH. RV SF is normal. Moderate pulmonary hypertension cannot be excluded due to poor regurgitant envelope [facility] 06/20/2018 successful PCI with intravascular ultrasound of the ramus with DIANELYS which was 100% culprit vessel with DIANELYS. Left main patent, LAD patent. RCA moderate to severe tortuosity with mid stent patent, circumflex patent, ARIELA 50% with sintia 100% with successful PCI. Acute diastolic dysfunction Echo 03/25/2021 EF 50 to 55%, moderate concentric left ventricular hypertrophy. Right ventricle mildly dilated, right ventricle hypokinetic. Left atrium moderately dilated right atrium mildly dilated. Mild to moderate tricuspid reg urgitation. Moderate pulmonary hypertension. Past Medical History: arthritis, CAD, COPD, diabetes, DVT, hypertension, pulmonary embolism, other (History of gout) Past Surgical History: appendectomy, cholecystectomy, hysterectomy, PTCA, Other (Tonsillectomy) Patient has history of smoking 50 years x 1/1/2 pack for week. Denies alcohol or drug abuse. Not and has three children. Allergic to penicillin. Upon arrival in the emergency room, blood pressure was quite elevated with systolic in the 200s and diastolic in the low 100s. Patient did not respond well to IV hydralazine and metoprolol and was subsequently placed on Cardene drip. Work-up in the emergency room reveals elevated BNP of 11,363. Chest x-ray shows CHF exacerbation. Less severe when compared to prior. Patient being admitted for malignant hypertensive urgency and CHF exacerbation. Patient Morbidly Obese. Sleeping on nasal canula 3 litres O2, and O2 saturation running 95%. No acute respiratory distress at rest. Patient afebrile. Has no leukocytosis. Blood pressure 135/79, Pulse 65 , Respirations 18. Chest xray done 01/28/22 reported CHF exacerbation, less severe when compared to prior. Doppler study of right lower extremity done 01/29/22 reported No sonographic evidence for DVT in the right lower extremity. Patient is on Brovanna/Budesonide aerosol treatments q 12 hours, Albuterol inhaler, Famotidine. Recommend DVT prophylaxis. Albuterol/atrovent aerosol treatments prn for shortness of breath. - Patient Problems (1) Acute on chronic systolic (congestive) heart failure Current Visit: Yes Status: Acute Plan to address problem: Patient is on I/V Lasix. Management as per cardiology. (2) COPD exacerbation Current Visit: Yes Status: Acute Plan to address problem: O2 3 litres via nasal canula. Brovanna/Budesonide aerosol treatments q 12hours. Albuterol/atrovent aerosol treatments q 6 hours prn for shortness of breath. Continue famotidine. Recommend DVT prophylaxis. PFTs as out patient. (3) Acute respiratory failure with hypoxia Current Visit: No Status: Acute Plan to address problem: O2 3 litres via nasal canula. Brovanna/Budesonide aerosol treatments q 12hours. Albuterol/atrovent aerosol treatments q 6 hours prn for shortness of breath. Continue famotidine. Recommend DVT prophylaxis (4) Hypertensive emergency Current Visit: Yes Status: Acute Plan to address problem: Patient is on nifedipine, Clonidine, Hydralazine, Metaprolol. Management as per primary care and cardiology. (5) Morbid obesity with body mass index of 40.0-49.9 Current Visit: No Status: Acute Plan to address problem: Recommend to loose weight. (6) Nicotine dependence Current Visit: No Status: Acute Qualifiers: Substance use status: in withdrawal Plan to address problem: Counseled to stop smoking. (7) Obesity hypoventilation syndrome Current Visit: No Status: Acute Plan to address problem: ABGs on room air during day time. Recommend to loose weight. BIPAP during night time, PRN for sleepiness or shortness of breath during day time. (8) ADAN (obstructive sleep apnea) Current Visit: No Status: Chronic Plan to address problem: BIPAP during night time. (9) Diabetes mellitus, type 2 Current Visit: No Status: Chronic Plan to address problem: Management as per primary care. (10) Pulmonary hypertension Current Visit: No Status: Chronic Plan to address problem: Echocardiogram 03/25/21 reported moderate pulmonary hypertension. Subjective Date of service: 02/02/22 Principal diagnosis: HTNsive urgency; AE-CHF; AE-COPD; Ac on ch hypoxemic resp failure; Obesity Interval history: 61-year-old -[place] female with known history of COPD, CHF, coronary artery disease with stent placement in the past, presenting the emergency room today via EMS for evaluation of shortness of breath. Upon arrival of EMS patient was said to be tachypneic and was not on any oxygen. She was tripoding and using accessory muscles of respiration. Initial oxygen saturation was 92% on room air. Patient indicates that she has not followed up with any primary care physician lately and she has not been quite compliant with her medications since primary care physician secondary to COVID. Patient denies any fever or chills, denies any chest pain, no headache or dizziness and no diaphoresis. She indicates that she fell at home and was on the floor for quite some time before getting help to get up from the floor. She denies any head injury, denies any loss of consciousness. Review of patient's records shows: Echo 01/08/2022-EF 50-55%. Mild concentric LVH. Right ventricle mildly dilated. Right ventricle systolic function is grossly normal. Extremities dilated. Moderate to severe tricuspid regurgitation. Echo 09/15/2020-LVEF is 50 to 55%. LV SF is normal. Moderate LVH. RV SF is normal. Moderate pulmonary hypertension cannot be excluded due to poor regurgitant envelope [facility] 06/20/2018 successful PCI with intravascular ultrasound of the ramus with DIANELYS which was 100% culprit vessel with DIANELYS. Left main patent, LAD patent. RCA moderate to severe tortuosity with mid stent patent, circumflex patent, ARIELA 50% with sintia 100% with successful PCI. Acute diastolic dysfunction Echo 03/25/2021 EF 50 to 55%, moderate concentric left ventricular hypertrophy. Right ventricle mildly dilated, right ventricle hypokinetic. Left atrium moderately dilated right atrium mildly dilated. Mild to moderate tricuspid regurgitation. Moderate pulmonary hypertension. Past Medical History: arthritis, CAD, COPD, diabetes, DVT, hypertension, pulmonary embolism, other (History of gout) Past Surgical History: appendectomy, cholecystectomy, hysterectomy, PTCA, Other (Tonsillectomy) Patient has history of smoking 50 years x 1/1/2 pack for week. Denies alcohol or drug abuse. Not and has three children. Allergic to penicillin. Upon arrival in the emergency room, blood pressure was quite elevated with systolic in the 200s and diastolic in the low 100s. Patient did not respond well to IV hydralazine and metoprolol and was subsequently placed on Cardene drip. Work-up in the emergency room reveals elevated BNP of 11,363. Chest x-ray shows CHF exacerbation. Less severe when compared to prior. Patient being admitted for malignant hypertensive urgency and CHF exacerbation. Patient Morbidly Obese. Sleeping on nasal canula 3 litres O2, and O2 saturation running 95%. No acute respiratory distress at rest. Patient afebrile. Has no leukocytosis. Blood pressure 135/79, Pulse 65 , Respirations 18. Chest xray done 01/28/22 reported CHF exacerbation, less severe when compared to prior. Doppler study of right lower extremity done 01/29/22 reported No sonographic evidence for DVT in the right lower extremity. Patient is on Brovanna/Budesonide aerosol treatments q 12 hours, Albuterol inhaler, Famotidine. Recommend DVT prophylaxis. Albuterol/atrovent aerosol treatments prn for shortness of breath. Objective Vital Signs - 12hr 02/02/22 02/02/22 02/02/22 03:01 07:20 10:00 Temperature 99.1 F 98.4 F Pulse Rate 64 64 Pulse Rate [ Throughout] Respiratory 18 18 Rate Respiratory Rate [ Throughout] Blood Pressure 130/93 143/81 Blood Pressure [Left] O2 Sat by Pulse 90 94 99 Oximetry 02/02/22 02/02/22 02/02/22 10:03 10:04 11:02 Temperature 98.0 F Pulse Rate 65 Pulse Rate [ 67 67 Throughout] Respiratory 18 Rate Respiratory 18 18 Rate [ Throughout] Blood Pressure 135/79 Blood Pressure [Left] O2 Sat by Pulse 95 Oximetry 02/02/22 11:30 Temperature 98.0 F Pulse Rate 65 Pulse Rate [ Throughout] Respiratory 18 Rate Respiratory Rate [ Throughout] Blood Pressure Blood Pressure 135/79 [Left] O2 Sat by Pulse 95 Oximetry Constitutional: no acute distress, asleep, other (Morbidly Obese. Sleeping on 3 litres O2.) Eyes: non-icteric ENT: oropharynx moist Neck: supple, no lymphadenopathy, no JVD, other (large circumference) Effort: mildly labored Ascultation: Bilateral: diminished breath sounds Percussion: Bilateral: not dull Cardiovascular: regular rate and rhythm Gastrointestinal: normoactive bowel sounds, soft, non-tender, non-distended (protuberant) Integumentary: normal Extremities: no cyanosis, no edema, pulses normal, no ischemia or petechiae Neurologic: non-focal exam, pupils equal and round, CN II-XII normal Psychiatric: other (In deep sleep.) CBC and BMP: 01/28/22 16:32 02/01/22 04:23 ABG, PT/INR, D-dimer: PT/INR, D-dimer PT 15.3 Sec. (12.2-14.9) H 01/28/22 16:32 INR 1.09 (0.87-1.13) 01/28/22 16:32 Abnormal lab findings: Abnormal Labs 01/28/22 01/28/22 01/28/22 16:32 16:32 16:32 RBC 5.13 H MCV 69 L MCH 21 L RDW 25.0 H Seg Neuts % (Manual) 88.0 H Lymphocytes % (Manual) 6.0 L Lymphocytes # (Manual) 0.3 L PT 15.3 H Chloride Carbon Dioxide BUN Glucose POC Glucose ALT 6 L Alkaline Phosphatase 221 H CK-MB (CK-2) Rel Index NT-Pro-B Natriuret Pep Lipase 12 L 01/28/22 01/28/22 01/29/22 16:32 16:32 04:07 RBC MCV MCH RDW Seg Neuts % (Manual) Lymphocytes % (Manual) Lymphocytes # (Manual) PT Chloride Carbon Dioxide BUN Glucose 210 H POC Glucose ALT Alkaline Phosphatase CK-MB (CK-2) Rel Index 8.2 H NT-Pro-B Natriuret Pep 70296 H Lipase 01/29/22 01/29/22 01/29/22 07:31 11:08 16:05 RBC MCV MCH RDW Seg Neuts % (Manual) Lymphocytes % (Manual) Lymphocytes # (Manual) PT Chloride Carbon Dioxide BUN Glucose POC Glucose 164 H 162 H 133 H ALT Alkaline Phosphatase CK-MB (CK-2) Rel Index NT-Pro-B Natriuret Pep Lipase 01/29/22 01/30/22 01/30/22 21:53 07:39 10:21 RBC MCV MCH RDW Seg Neuts % (Manual) Lymphocytes % (Manual) Lymphocytes # (Manual) PT Chloride Carbon Dioxide 31 H BUN 23 H Glucose 108 H POC Glucose 166 H 133 H ALT Alkaline Phosphatase CK-MB (CK-2) Rel Index NT-Pro-B Natriuret Pep Lipase 01/30/22 01/30/22 01/31/22 11:20 22:25 05:32 RBC MCV MCH RDW Seg Neuts % (Manual) Lymphocytes % (Manual) Lymphocytes # (Manual) PT Chloride Carbon Dioxide 31 H BUN 22 H Glucose POC Glucose 110 H 115 H ALT Alkaline Phosphatase CK-MB (CK-2) Rel Index NT-Pro-B Natriuret Pep Lipase 01/31/22 01/31/22 01/31/22 08:27 11:26 15:27 RBC MCV MCH RDW Seg Neuts % (Manual) Lymphocytes % (Manual) Lymphocytes # (Manual) PT Chloride Carbon Dioxide BUN Glucose POC Glucose 119 H 112 H 110 H ALT Alkaline Phosphatase CK-MB (CK-2) Rel Index NT-Pro-B Natriuret Pep Lipase 01/31/22 02/01/22 02/01/22 20:45 04:23 07:43 RBC MCV MCH RDW Seg Neuts % (Manual) Lymphocytes % (Manual) Lymphocytes # (Manual) PT Chloride 97.2 L Carbon Dioxide BUN 18 H Glucose 106 H POC Glucose 112 H 130 H ALT Alkaline Phosphatase CK-MB (CK-2) Rel Index NT-Pro-B Natriuret Pep Lipase 02/01/22 02/01/22 02/02/22 15:20 20:39 07:21 RBC MCV MCH RDW Seg Neuts % (Manual) Lymphocytes % (Manual) Lymphocytes # (Manual) PT Chloride Carbon Dioxide BUN Glucose POC Glucose 146 H 151 H 111 H ALT Alkaline Phosphatase CK-MB (CK-2) Rel Index NT-Pro-B Natriuret Pep Lipase 02/02/22 11:03 RBC MCV MCH RDW Seg Neuts % (Manual) Lymphocytes % (Manual) Lymphocytes # (Manual) PT Chloride Carbon Dioxide BUN Glucose POC Glucose 124 H ALT Alkaline Phosphatase CK-MB (CK-2) Rel Index NT-Pro-B Natriuret Pep Lipase Allied health notes reviewed: nursing
[2022-02-02] MEDS: HYDROmorphone 0.5 MG/0.5 ML INJ IV PRN (22:08)
[2022-02-02] MEDS: MONTELUKAST 10 MG TAB PO SCH (22:21)
[2022-02-03] MEDS: IPRATROPIUM 0.02% NEBU 2.5 ML IH SCH ×4 (02:38→20:46)
[2022-02-03] MEDS: hydrALAZINE 100 MG TAB PO SCH ×3 (06:42→21:15)
[2022-02-03] MEDS: FUROSEMIDE 40 MG/4 ML INJ IV SCH ×2 (06:42→17:13)
[2022-02-03] MEDS: HYDROmorphone 0.5 MG/0.5 ML INJ IV PRN ×3 (07:20→21:15)
[2022-02-03 07:59] LABS: BUN/Creatinine Ratio 20; Blood Urea Nitrogen 16 mg/dL (7-17); Calcium 8.9 mg/dL (8.4-10.2); Hemolysis Index 14
[2022-02-03] MEDS: INSULIN LISPRO 100 UNIT/ML SUB-Q SCH ×4 (08:33→21:26)
--- NOTE | 2022-02-03 09:46 | Progress Note ---
Assessment and Plan Assessment and plan: This is 61-year-old female with COPD, CHF, PE, CAD s/p stent placement and noncompliance who presented to the emergency department on 01/28 with complaints of shortness of breath via EMS. Upon EMS arrival patient was tachypneic, not on any oxygen tripod positioned and using accessory muscles for respirations and SPO2 was 92% on room air. Patient also noted that she fell at home and was on the floor for quite some time before getting help to get up from the floor. Upon arrival to the emergency department patient's blood pressure was in the 200s over 100s and she did not respond to IV hydralazine and metoprolol and was placed on a Cardene drip and CXR showed CSF exacerbation. Patient was admitted to the hospitalist service with consult to cardiology with malignant hypertensive urgency and CHF exacerbation. Hospital course to date: 01/29: Patient has been weaned off of Cardene drip and will be started on p.o. metoprolol, hydralazine, Imdur and valsartan. PT/OT consulted. We will obtain right lower extremity ultrasound for swelling to rule out DVT. Patient will transfer to telemetry. 01/30: Swelling improved in lower extremity. LE US negative for DVT. Dispo: [facility] per PT notes. D/w CM who have initiated work on referral/auth process. 01/31: significant urine OP. good response to diuresis. Improvement seen on exam, decresae in LE edema. Ordered BMP for tomorrow AM. Xanax prn anxiety and percocet prn mod pain as patient complaining of chest wall pain and anxiety associated with hospitalization . Pending placement to [facility]. 02/01: Awaiting placement to [facility]. Currently requiring 4L NC satting 94%. Wean as sats tolerate > 90%. D/c percocet as patient has inadequate pain control. Started on dilaudid po. Blood pressure high, patient was refusing last night's meds. Educated on needs for meds on continuous basis today. Patient agreed to taking meds, f/u bp in afternoon 150's sbp. Still awaiting placement to [facility]. 02/02: Awaiting placement to [facility]. 02/03: Patient continues to diurese appropriately. We did have a conversation about weight management she verbalized understanding. She is waiting for subacute rehab placement due to recurrent falls. Will monitor electrolytes considering diuresis. She continues with oxygen but I believe she does have mor bid obesity hypoventilation syndrome and have discussed reinstating her BiPAP/CPAP for all hours of sleep while in the hospital. I also emphasized the importance of quitting tobacco use she verbalized understanding. 50 minutes counseling provided and also another 15 minutes on preventive care. Assessment and Plan: Neuro: Noncompliance, anxiety -Reorientation as needed -Maintain sleep-wake cycle -As needed analgesia -Medical compliance strongly encouraged -Continue home Celexa - xanax prn anxiety Cardiac: Hypertensive urgency, acute on chronic diastolic heart failure, CAD s/p stent (06/2018) -Cardiology consulted, appreciate recommendations -Blood pressure monitoring per protocol -S/p Cardene drip -P.o. hydralazine, metoprolol, Imdur, valsartan -Admit proBNP 11,363 -Lasix 40 mg twice daily -Plavix, aspirin, Lipitor -01/09/2020 echocardiogram shows EF of 50 to 55% -Of note: Echo 09/15/2020-LVEF is 50 to 55%. LV SF is normal. Moderate LVH. RV SF is normal. Moderate pulmonary hypertension cannot be excluded due to poor regurgitant envelope [facility] 06/20/2018 successful PCI with intravascular ultrasound of the ramus with DIANELYS which was 100% culprit vessel with DIANELYS. Left main patent, LAD patent. RCA mmoderate to severe tortuosity with mid stent patent, circumflex pateent, ARIELA 50% with sintia 100% with successful PCI. Acute diastolic dysfunction Echo 03/25/2021 EF 50 to 55%, moderate concentric left ventricular hypertrophy. Right ventricle mildly dilated, right ventricle hypokinetic. Left atrium moderately dilated right atrium mildly dilated. Mild to moderate tricuspid regurgitation. Moderate pulmonary hypertension. Respiratory: Acute on chronic hypoxic respiratory failure (2 L nasal cannula at home), current nicotine abuse, obstructive sleep apnea -Initially presented with shortness of breath -[facility] consulted, appreciate recommendations -Continue nasal cannula -SPO2 monitor per protocol -Supplemental oxygen as needed -Pulmonary hygiene -Continue Brovana, Singulair, Pulmicort -Tobacco cessation counseling provided GI: Morbid obesity -24 hours +38 mL -PPI -cc cardiac diet : NAD -Monitor intake and output -Renally dose medications -Avoid nephrotoxic medications ID: NAD -f/u blood culture -Monitor WBC and temperature curve Endo: Hyperglycemia -Avoid hypoglycemia -SSI -Accu-Cheks ACHS -hbg a1c pending Heme: r/o DVT, h/o PE -Left lower extremity Doppler ultrasound pending swelling -Trend CBC -Transfuse hemoglobin less than 7 -SCDs to BLE while in bed #Advance care planning Disease education conducted, care plan discussed, diagnoses discussed, prognosis discussed, patient is full code, patient acknowledges understanding and agree with care plan, +30 minutes. History Interval history: Patient seen and examined complaints. Hospitalist Physical - Physical exam Narrative exam: - Physical exam Narrative exam: General appearance: Present: no acute distress, morbidly obese - EENT Eyes: Present: PERRL, EOM intact ENT: hearing intact, clear oral mucosa, dentition normal - Neck Neck: Present: normal ROM - Respiratory Respiratory effort: normal Respiratory: bilateral: CTA, diminished - Cardiovascular Rhythm: regular Heart Sounds: Present: S1 & S2. Absent: systolic murmur, diastolic murmur - Extremities Extremities: no ischemia, pulses intact, pulses symmetrical Extremity abnormal: edema Peripheral Pulses: within normal limits - Abdominal General gastrointestinal: soft, non-tender, non-distended, normal bowel sounds - Integumentary Integumentary: Present: warm, dry - Psychiatric Psychiatric: cooperative - Neurologic Neurologic: CNII-XII intact, no focal deficits, moves all extremities - Allied Health Allied health notes reviewed: nursing, RT, social work - Constitutional Vitals: Temp Pulse Resp BP Pulse Ox 98.3 F 64 18 157/83 97 02/03/22 08:04 02/03/22 08:04 02/03/22 08:04 02/03/22 08:04 02/03/22 08:33 General appearance: Present: no acute distress, obese HEART Score - HEART Score Troponin: Troponin T < 0.010 ng/mL (0.00-0.029) 01/28/22 16:32 Results - Labs CBC & Chem 7: 01/28/22 16:32 02/03/22 07:11 Labs: Laboratory Last Values WBC 5.8 K/mm3 (4.5-11.0) 01/28/22 16:32 RBC 5.13 M/mm3 (3.65-5.03) H 01/28/22 16:32 Hgb 10.8 gm/dl (10.1-14.3) 01/28/22 16:32 Hct 35.3 % (30.3-42.9) 01/28/22 16:32 MCV 69 fl (79-97) L 01/28/22 16:32 MCH 21 pg (28-32) L 01/28/22 16:32 MCHC 31 % (30-34) 01/28/22 16:32 RDW 25.0 % (13.2-15.2) H 01/28/22 16:32 Plt Count 309 K/mm3 (140-440) 01/28/22 16:32 Add Manual Diff Complete 01/28/22 16:32 Total Counted 100 01/28/22 16:32 Seg Neuts % (Manual) 88.0 % (40.0-70.0) H 01/28/22 16:32 Band Neutrophils % 0 % 01/28/22 16:32 Lymphocytes % (Manual) 6.0 % (13.4-35.0) L 01/28/22 16:32 Reactive Lymphs % (Man) 0 % 01/28/22 16:32 Monocytes % (Manual) 5.0 % (0.0-7.3) 01/28/22 16:32 Eosinophils % (Manual) 1.0 % (0.0-4.3) 01/28/22 16:32 Basophils % (Manual) 0 % (0.0-1.8) 01/28/22 16:32 Metamyelocytes % 0 % 01/28/22 16:32 Myelocytes % 0 % 01/28/22 16:32 Promyelocytes % 0 % 01/28/22 16:32 Blast Cells % 0 % 01/28/22 16:32 Nucleated RBC % Not Reportable 01/28/22 16:32 Seg Neutrophils # Man 5.1 K/mm3 (1.8-7.7) 01/28/22 16:32 Band Neutrophils # 0.0 K/mm3 01/28/22 16:32 Lymphocytes # (Manual) 0.3 K/mm3 (1.2-5.4) L 01/28/22 16:32 Abs React Lymphs (Man) 0.0 K/mm3 01/28/22 16:32 Monocytes # (Manual) 0.3 K/mm3 (0.0-0.8) 01/28/22 16:32 Eosinophils # (Manual) 0.1 K/mm3 (0.0-0.4) 01/28/22 16:32 Basophils # (Manual) 0.0 K/mm3 (0.0-0.1) 01/28/22 16:32 Metamyelocytes # 0.0 K/mm3 01/28/22 16:32 Myelocytes # 0.0 K/mm3 01/28/22 16:32 Promyelocytes # 0.0 K/mm3 01/28/22 16:32 Blast Cells # 0.0 K/mm3 01/28/22 16:32 WBC Morphology Not Reportable 01/28/22 16:32 Hypersegmented Neuts Not Reportable 01/28/22 16:32 Hyposegmented Neuts Not Reportable 01/28/22 16:32 Hypogranular Neuts Not Reportable 01/28/22 16:32 Smudge Cells Not Reportable 01/28/22 16:32 Toxic Granulation Not Reportable 01/28/22 16:32 Toxic Vacuolation Not Reportable 01/28/22 16:32 Dohle Bodies Not Reportable 01/28/22 16:32 Pelger-Huet Anomaly Not Reportable 01/28/22 16:32 Juan Rods Not Reportable 01/28/22 16:32 Platelet Estimate Consistent w auto 01/28/22 16:32 Clumped Platelets Not Reportable 01/28/22 16:32 Plt Clumps, EDTA Not Reportable 01/28/22 16:32 Large Platelets Not Reportable 01/28/22 16:32 Giant Platelets Few 01/28/22 16:32 Platelet Satelliting Not Reportable 01/28/22 16:32 Plt Morphology Comment Not Reportable 01/28/22 16:32 RBC Morphology Not Reportable 01/28/22 16:32 Dimorphic RBCs Not Reportable 01/28/22 16:32 Polychromasia Not Reportable 01/28/22 16:32 Hypochromasia 2+ 01/28/22 16:32 Poikilocytosis Not Reportable 01/28/22 16:32 Anisocytosis 2+ 01/28/22 16:32 Microcytosis 2+ 01/28/22 16:32 Macrocytosis Not Reportable 01/28/22 16:32 Spherocytes Not Reportable 01/28/22 16:32 Pappenheimer Bodies Not Reportable 01/28/22 16:32 Sickle Cells Not Reportable 01/28/22 16:32 Target Cells Few 01/28/22 16:32 Tear Drop Cells Not Reportable 01/28/22 16:32 Ovalocytes Few 01/28/22 16:32 Helmet Cells Not Reportable 01/28/22 16:32 [place] Bodies Not Reportable 01/28/22 16:32 [place] Rings Not Reportable 01/28/22 16:32 Joanna Cells Not Reportable 01/28/22 16:32 Bite Cells Not Reportable 01/28/22 16:32 Crenated Cell Not Reportable 01/28/22 16:32 Elliptocytes Few 01/28/22 16:32 Acanthocytes (Spur) Not Reportable 01/28/22 16:32 Rouleaux Not Reportable 01/28/22 16:32 Hemoglobin C Crystals Not Reportable 01/28/22 16:32 Schistocytes Not Reportable 01/28/22 16:32 Malaria parasites Not Reportable 01/28/22 16:32 Didier Bodies Not Reportable 01/28/22 16:32 Hem Pathologist Commnt No 01/28/22 16:32 PT 15.3 Sec. (12.2-14.9) H 01/28/22 16:32 INR 1.09 (0.87-1.13) 01/28/22 16:32 Sodium 137 mmol/L (137-145) 02/03/22 07:11 Potassium 4.3 mmol/L (3.6-5.0) 02/03/22 07:11 Chloride 96.9 mmol/L (98-107) L 02/03/22 07:11 Carbon Dioxide 30 mmol/L (22-30) 02/03/22 07:11 Anion Gap 14 mmol/L 02/03/22 07:11 BUN 16 mg/dL (7-17) 02/03/22 07:11 Creatinine 0.8 mg/dL (0.6-1.2) 02/03/22 07:11 Estimated GFR > 60 ml/min 02/03/22 07:11 BUN/Creatinine Ratio 20 % 02/03/22 07:11 Glucose 102 mg/dL (65-100) H 02/03/22 07:11 POC Glucose 99 mg/dL (70-105) 02/02/22 20:06 Hemoglobin A1c 6.0 % (4-6) 01/28/22 16:32 Ketones Quantitative Negative (Negative) 01/28/22 16:32 Lactic Acid 1.90 mmol/L (0.7-2.0) 01/28/22 16:32 Calcium 8.9 mg/dL (8.4-10.2) 02/03/22 07:11 Magnesium 1.80 mg/dL (1.7-2.3) 02/01/22 04:23 Total Bilirubin 0.60 mg/dL (0.1-1.2) 01/28/22 16:32 AST 11 units/L (5-40) 01/28/22 16:32 ALT 6 units/L (7-56) L 01/28/22 16:32 Alkaline Phosphatase 221 units/L (35-129) H 01/28/22 16:32 Total Creatine Kinase 34 units/L (30-135) 01/28/22 16:32 Total Creatine Kinase 39 units/L (30-135) 01/28/22 16:32 CK-MB (CK-2) 2.8 ng/mL (0.0-4.0) 01/28/22 16:32 CK-MB (CK-2) Rel Index 8.2 (0-4) H 01/28/22 16:32 Troponin T < 0.010 ng/mL (0.00-0.029) 01/28/22 16:32 NT-Pro-B Natriuret Pep 34703 pg/mL (0-900) H 01/28/22 16:32 Total Protein 7.8 g/dL (6.3-8.2) 01/28/22 16:32 Albumin 3.9 g/dL (3.9-5) 01/28/22 16:32 Albumin/Globulin Ratio 1.0 % 01/28/22 16:32 Lipase 12 units/L (13-60) L 01/28/22 16:32 Urine Color Yellow (Yellow) 01/28/22 17:02 Urine Turbidity Clear (Clear) 01/28/22 17:02 Specific [place] (Man) 1.010 (1.003-1.030) 01/28/22 17:02 Ur Protein (Man) 1+ mg/dL (Negative) 01/28/22 17:02 Ur Ketones (Man) Negative (Negative) 01/28/22 17:02 Ur Nitrite (Man) Positive (Negative) 01/28/22 17:02 Urine Bilirubin (Man) Negative (Negative) 01/28/22 17:02 Leukocyte Esterase (Man) Negative (Negative) 01/28/22 17:02 Urine WBC (Auto) 4.0 /HPF (0.0-6.0) 01/28/22 17:02 Urine RBC (Auto) 1.0 /HPF (0.0-6.0) 01/28/22 17:02 Urine RBC (Manual) 1+ (Negative) 01/28/22 17:02 Urine Mucus Few /HPF 01/28/22 17:02 Urine Opiates Screen Presumptive negative 01/28/22 17:02 Urine Methadone Screen Presumptive negative 01/28/22 17:02 Ur Barbiturates Screen Presumptive negative 01/28/22 17:02 Ur Phencyclidine Scrn Presumptive negative 01/28/22 17:02 Ur Amphetamines Screen Presumptive negative 01/28/22 17:02 U Benzodiazepines Scrn Presumptive negative 01/28/22 17:02 Urine Cocaine Screen Presumptive negative 01/28/22 17:02 U Marijuana (THC) Screen Presumptive negative 01/28/22 17:02 Drugs of Abuse Note Disclamer 01/28/22 17:02 Coronavirus (PCR) Negative (Negative) 02/02/22 Unknown Fabian/IV: Voiding Method External Female Catheter Active Medications - Current Medications Current Medications: Generic Name Dose Route Start Last Admin Trade Name Freq PRN Reason Stop Dose Admin Acetaminophen 650 mg 01/28/22 23:53 01/31/22 09:34 Acetaminophen 325 Mg Tab PO 650 mg Q4H PRN Administration Pain MILD(1-3)/Fever >100.5/ALAS Albuterol 2.5 mg 02/01/22 15:00 02/01/22 14:43 Albuterol 2.5 Mg/3 Ml Nebu IH 2.5 mg Q4HRT PRN Administration Shortness Of Breath Alprazolam 0.5 mg 01/31/22 14:31 02/02/22 01:35 Alprazolam 0.5 Mg Tab PO 0.5 mg Q8H PRN Administration Anxiety Arformoterol Tartrate 15 mcg 01/29/22 20:00 02/02/22 21:37 Arformoterol 15 Mcg/2 Ml Nebu IH 15 mcg Q12HRT ANN MARIE Administration Aspirin 81 mg 01/29/22 10:00 02/02/22 09:42 Aspirin Ec 81 Mg Tab PO 81 mg QDAY ANN MARIE Administration Atorvastatin Calcium 40 mg 01/29/22 22:00 02/02/22 22:08 Atorvastatin 40 Mg Tab PO 40 mg QHS ANN MARIE Administration Budesonide 0.5 mg 01/29/22 20:00 02/02/22 21:38 Budesonide 0.5 Mg/2 Ml Nebu IH 0.5 mg Q12HRT ANN MARIE Administration Citalopram Hydrobromide 20 mg 01/29/22 10:00 02/02/22 09:42 Citalopram 20 Mg Tab PO 20 mg QDAY ANN MARIE Administration Clonidine HCl 0.2 mg 02/01/22 12:00 02/02/22 22:06 Clonidine 0.1 Mg Tab PO 0.2 mg Q12HR ANN MARIE Administration Clopidogrel Bisulfate 75 mg 01/29/22 10:00 02/02/22 09:41 Clopidogrel 75 Mg Tab PO 75 mg QDAY ANN MARIE Administration Dextrose 0 ml 01/28/22 23:53 Dextrose 50% In Water (25gm) 50 Ml Syringe IV Q30MIN PRN Hypoglycemia Protocol Famotidine 20 mg 01/29/22 10:00 02/02/22 09:42 Famotidine 20 Mg Tab PO 20 mg DAILY ANN MARIE Administration Furosemide 40 mg 01/29/22 06:00 02/03/22 06:42 Furosemide 40 Mg/4 Ml Inj IV 40 mg BID@0600,1800 ANN MARIE Administration Hydralazine HCl 100 mg 01/29/22 14:00 02/03/22 06:42 Hydralazine 100 Mg Tab PO 100 mg Q8HR ANN MARIE Administration Hydromorphone HCl 0.25 mg 02/02/22 15:25 02/03/22 07:20 Hydromorphone 0.5 Mg/0.5 Ml Inj IV 0.25 mg Q6H PRN Administration Pain, Moderate (4-6) Insulin Human Lispro 0 unit 01/29/22 07:30 02/03/22 08:33 Insulin Lispro 100 Unit/Ml SUB-Q Not Given ACHS ANN MARIE Protocol Ipratropium [place] 0.5 mg 02/01/22 14:00 02/03/22 02:38 Ipratropium 0.02% Nebu 2.5 Ml IH Not Given Q6HRT ANN MARIE Isosorbide Mononitrate 60 mg 01/29/22 10:00 02/02/22 09:42 Isosorbide Mononitrate Er 60 Mg Tab PO 60 mg QDAY ANN MARIE Administration Magnesium Hydroxide 30 ml 01/28/22 23:53 Magnesium Hydroxide (Mom) Oral Liqd Udc PO Q4H PRN Constipation Metoprolol Tartrate 100 mg 01/31/22 22:00 02/02/22 22:22 Metoprolol Tartrate 50 Mg Tab PO 100 mg BID ANN MARIE Administration Montelukast Sodium 10 mg 01/29/22 22:00 02/02/22 22:21 Montelukast 10 Mg Tab PO 10 mg QHS ANN MARIE Administration Multivitamins/Minerals 1 each 01/29/22 10:00 02/02/22 09:42 Multivitamins,Ther W-Minerals Tab PO 1 each QDAY ANN MARIE Administration Nifedipine 90 mg 01/30/22 10:00 02/02/22 09:42 Nifedipine Xl 90 Mg Tab PO 90 mg QDAY ANN MARIE Administration Ondansetron HCl 4 mg 01/28/22 23:53 01/29/22 15:28 Ondansetron 4 Mg/2 Ml Inj IV 4 mg Q8H PRN Administration Nausea And Vomiting Sodium Chloride 10 ml 01/29/22 10:00 02/02/22 22:13 Sodium Chloride 0.9% 10 Ml Flush Syringe IV 10 ml BID ANN MARIE Administration Sodium Chloride 10 ml 01/28/22 23:53 01/31/22 06:13 Sodium Chloride 0.9% 10 Ml Flush Syringe IV 10 ml PRN PRN Administration LINE FLUSH Valsartan 160 mg 01/29/22 11:00 02/02/22 22:07 Valsartan 160mg Tab PO 160 mg BID ANN MARIE Administration Nutrition/Malnutrition Assess - Dietary Evaluation Nutrition/Malnutrition Findings: Nutrition Notes Start: 01/29/22 13:57 Freq: Status: Active Protocol: Document 01/29/22 13:57 FREDERICK (Rec: 01/29/22 14:08 FREDERICK [id number]) Nutrition Notes Need for Assessment generated from: MD Order,Education Initial or Follow up Brief Note Current Diagnosis COPD,Coronary Artery Disease, Hypertension Other Pertinent Diagnosis CHF, DVT, PE, Cardiomyopathy. Current Diet Cardiac/Consistent Carbohydrates Diet (since B ). Height 5 ft 11 in Weight 149.685 kg [place] Body Weight (kg) 70.45 BMI 46.0 Intake Prior to Admission Good Weight change and time frame Pt denies having loss body weight [employer]. Weight Status Morbidly Obese Subjective/Other Information RD consult for nutrition education assessment. No reports available on Pt's PO intake of meals at the time , will assess at F/U. Pt is on Nasal Cannula, O2 saturation @ 94%, according to Physical Assessment History notes. Pt has caries and missing teeth, according to Physical Assessment History notes. Pt presents Bilateral-LE Pitting Edema 2+, according to Physical Assessment History notes. Pt still in critical condition , not a candidate for Nutrition Education at the time, will assess feasibility on F/U. Percent of energy/protein needs met: Prescribed Cardiac/Consistent Carbohydrates Diet provides for energy/protein needs (1, 977 Kcal/86 g) during LOS. Nutrition Intervention Follow-Up By: 02/05/22 Additional Comments Nutrition education will be provided at F/U, if feasible. Continue monitoring food tolerance, %PO intake of meals , and BM.
[2022-02-03] MEDS: cloNIDine 0.1 MG TAB PO SCH ×2 (09:49→21:16)
[2022-02-03] MEDS: VALSARTAN 160MG TAB PO SCH ×2 (09:49→21:15)
[2022-02-03] MEDS: CITALOPRAM 20 MG TAB PO SCH (09:49)
[2022-02-03] MEDS: FAMOTIDINE 20 MG TAB PO SCH (09:49)
[2022-02-03] MEDS: CLOPIDOGREL 75 MG TAB PO SCH (09:49)
[2022-02-03] MEDS: MULTIVITAMINS,THER W-MINERALS TAB PO SCH (09:49)
[2022-02-03] MEDS: ASPIRIN EC 81 MG TAB PO SCH (09:50)
[2022-02-03] MEDS: NIFEdipine XL 90 MG TAB PO SCH (09:50)
[2022-02-03] MEDS: METOPROLOL TARTRATE 50 MG TAB PO SCH ×2 (09:50→21:16)
[2022-02-03] MEDS: BUDESONIDE 0.5 MG/2 ML NEBU IH SCH ×2 (10:20→20:46)
[2022-02-03] MEDS: ARFORMOTEROL 15 MCG/2 ML NEBU IH SCH ×2 (10:20→20:51)
--- NOTE | 2022-02-03 13:03 | Progress Note ---
Assessment and Plan Hypertensive urgency AE-CHF AE-COPD Acute on chronic hypoxemic respiratory failure CAD DM II Morbid obesity Ground level fall, etiology unknown. History of medication noncompliance - continue bronchodilators (PAIGE & LABA) re: COPD, with pulmonary hygiene per RT - continue inhaled corticosteroids - continue diuresis while monitoring I's & O's / electrolytes - follow clinically off AB's - NIV qhs re: ADAN / OHS with prn daytime use for SOB - continue accuchecks with glycemic control per SSI for target blood glucose of < 180 mg/dL; avoid hypoglycemia - continue to titrate supplemental oxygen, keep SpO2 89-90% - prn analgesia per pain score - Maintenance of sleep-wake cycle, avoid delirium - tobacco abstinence strongly counseled - VTE prophylaxis - PT/OT/ROM exercises - continue other care per attending / other consultants - discharge planning Subjective Date of service: 02/03/22 Principal diagnosis: HTNsive urgency; AE-CHF; AE-COPD; Ac on ch hypoxemic resp failure; Obesity Interval history: Patient is seen today for: Hypertensive urgency; AE-CHF; AE-COPD; Acute on chronic hypoxemic respiratory failure; CAD; DM II; Morbid obesity Seen and examined at bedside; 24hour events reviewed; nursing and respiratory care staff consulted; no adverse overnight events reported to me; resting peacefully in bed; denies acute chest pains or palpitations; No N/V/F/C Objective Vital Signs - 12hr 02/03/22 02/03/22 02/03/22 04:38 05:30 08:04 Temperature 98.0 F 98.3 F Pulse Rate 64 73 64 Pulse Rate [ Throughout] Respiratory 19 18 Rate Respiratory Rate [ Throughout] Blood Pressure 117/62 157/83 O2 Sat by Pulse 98 88 Oximetry 02/03/22 02/03/22 02/03/22 08:05 08:33 10:00 Temperature Pulse Rate 70 Pulse Rate [ Throughout] Respiratory Rate Respiratory Rate [ Throughout] Blood Pressure O2 Sat by Pulse 91 97 Oximetry 02/03/22 10:20 Temperature Pulse Rate Pulse Rate [ 68 Throughout] Respiratory Rate Respiratory 16 Rate [ Throughout] Blood Pressure O2 Sat by Pulse 96 Oximetry Constitutional: no acute distress, alert Eyes: non-icteric ENT: oropharynx moist Neck: supple, no lymphadenopathy, no JVD, other (large circumference) Effort: normal Ascultation: Bilateral: diminished breath sounds Cardiovascular: regular rate and rhythm, other (S1,S2) Gastrointestinal: normoactive bowel sounds, soft, non-tender, non-distended (protuberant) Integumentary: normal Extremities: no cyanosis, no edema, pulses normal, no ischemia or petechiae Neurologic: normal mental status, non-focal exam, pupils equal and round, CN II- XII normal, motor strength normal and Psychiatric: mood appropriate, affect normal CBC and BMP: 01/28/22 16:32 02/04/22 07:12 ABG, PT/INR, D-dimer: PT/INR, D-dimer PT 15.3 Sec. (12.2-14.9) H 01/28/22 16:32 INR 1.09 (0.87-1.13) 01/28/22 16:32 Abnormal lab findings: Abnormal Labs 01/28/22 01/28/22 01/28/22 16:32 16:32 16:32 RBC 5.13 H MCV 69 L MCH 21 L RDW 25.0 H Seg Neuts % (Manual) 88.0 H Lymphocytes % (Manual) 6.0 L Lymphocytes # (Manual) 0.3 L PT 15.3 H Chloride Carbon Dioxide BUN Glucose POC Glucose ALT 6 L Alkaline Phosphatase 221 H CK-MB (CK-2) Rel Index NT-Pro-B Natriuret Pep Lipase 12 L 01/28/22 01/28/22 01/29/22 16:32 16:32 04:07 RBC MCV MCH RDW Seg Neuts % (Manual) Lymphocytes % (Manual) Lymphocytes # (Manual) PT Chloride Carbon Dioxide BUN Glucose 210 H POC Glucose ALT Alkaline Phosphatase CK-MB (CK-2) Rel Index 8.2 H NT-Pro-B Natriuret Pep 10265 H Lipase 01/29/22 01/29/22 01/29/22 07:31 11:08 16:05 RBC MCV MCH RDW Seg Neuts % (Manual) Lymphocytes % (Manual) Lymphocytes # (Manual) PT Chloride Carbon Dioxide BUN Glucose POC Glucose 164 H 162 H 133 H ALT Alkaline Phosphatase CK-MB (CK-2) Rel Index NT-Pro-B Natriuret Pep Lipase 01/29/22 01/30/22 01/30/22 21:53 07:39 10:21 RBC MCV MCH RDW Seg Neuts % (Manual) Lymphocytes % (Manual) Lymphocytes # (Manual) PT Chloride Carbon Dioxide 31 H BUN 23 H Glucose 108 H POC Glucose 166 H 133 H ALT Alkaline Phosphatase CK-MB (CK-2) Rel Index NT-Pro-B Natriuret Pep Lipase 01/30/22 01/30/22 01/31/22 11:20 22:25 05:32 RBC MCV MCH RDW Seg Neuts % (Manual) Lymphocytes % (Manual) Lymphocytes # (Manual) PT Chloride Carbon Dioxide 31 H BUN 22 H Glucose POC Glucose 110 H 115 H ALT Alkaline Phosphatase CK-MB (CK-2) Rel Index NT-Pro-B Natriuret Pep Lipase 01/31/22 01/31/22 01/31/22 08:27 11:26 15:27 RBC MCV MCH RDW Seg Neuts % (Manual) Lymphocytes % (Manual) Lymphocytes # (Manual) PT Chloride Carbon Dioxide BUN Glucose POC Glucose 119 H 112 H 110 H ALT Alkaline Phosphatase CK-MB (CK-2) Rel Index NT-Pro-B Natriuret Pep Lipase 01/31/22 02/01/22 02/01/22 20:45 04:23 07:43 RBC MCV MCH RDW Seg Neuts % (Manual) Lymphocytes % (Manual) Lymphocytes # (Manual) PT Chloride 97.2 L Carbon Dioxide BUN 18 H Glucose 106 H POC Glucose 112 H 130 H ALT Alkaline Phosphatase CK-MB (CK-2) Rel Index NT-Pro-B Natriuret Pep Lipase 02/01/22 02/01/22 02/02/22 15:20 20:39 07:21 RBC MCV MCH RDW Seg Neuts % (Manual) Lymphocytes % (Manual) Lymphocytes # (Manual) PT Chloride Carbon Dioxide BUN Glucose POC Glucose 146 H 151 H 111 H ALT Alkaline Phosphatase CK-MB (CK-2) Rel Index NT-Pro-B Natriuret Pep Lipase 02/02/22 02/02/22 02/03/22 11:03 15:08 07:11 RBC MCV MCH RDW Seg Neuts % (Manual) Lymphocytes % (Manual) Lymphocytes # (Manual) PT Chloride 96.9 L Carbon Dioxide BUN Glucose 102 H POC Glucose 124 H 120 H ALT Alkaline Phosphatase CK-MB (CK-2) Rel Index NT-Pro-B Natriuret Pep Lipase Chest x-ray: image reviewed Allied health notes reviewed: nursing
[2022-02-03] MEDS: ALPRAZolam 0.5 MG TAB PO PRN (13:57)
--- NOTE | 2022-02-03 15:55 | Progress Note ---
Assessment and Plan Continue IV diuresis. Possible transition to PO diuretics in AM. Pt seen in conjunction with Dr. Regalado, who agrees with the assessment and plan of care. - Patient Problems (1) Acute on chronic respiratory failure Current Visit: Yes Status: Acute Qualifiers: Respiratory failure complication: hypoxia Qualified Code(s): J96.21 - Acute and chronic respiratory failure with hypoxia (2) COPD exacerbation Current Visit: Yes Status: Acute (3) Acute on chronic heart failure with preserved ejection fraction (HFpEF) Current Visit: Yes Status: Acute (4) Hypertensive urgency Current Visit: Yes Status: Acute (5) Pulmonary hypertension Current Visit: Yes Status: Chronic (6) CAD (coronary artery disease) Current Visit: Yes Status: Chronic Qualifiers: Coronary Disease-Associated Artery/Lesion type: [place] artery [place] vs. transplanted heart: kas[place] heart (7) Stented coronary artery Current Visit: Yes Status: Chronic (8) Diabetes mellitus, type 2 Current Visit: Yes Status: Chronic (9) Morbid obesity Current Visit: Yes Status: Chronic (10) Obstructive sleep apnea Current Visit: Yes Status: Chronic (11) Medical non-compliance Current Visit: Yes Status: Chronic Subjective Date of service: 02/03/22 Principal diagnosis: A/C HFpEF, Hypertensive Urgency Interval history: Feeling a little better. Reports excellent UOP. On baseline O2. SR 70s on tele, no events. Objective Vital Signs Temp Pulse Pulse Resp Resp BP Pulse Ox 02/03/22 10:20 68 16 96 02/03/22 10:00 70 02/03/22 08:33 97 02/03/22 08:05 91 02/03/22 08:04 98.3 F 64 18 157/83 88 02/03/22 05:30 73 02/03/22 04:38 98.0 F 64 19 117/62 98 02/02/22 22:56 98.7 F 79 18 159/80 95 02/02/22 22:22 72 148/77 02/02/22 22:07 72 148/77 02/02/22 22:06 72 148/77 02/02/22 21:42 95 02/02/22 21:38 83 17 02/02/22 20:03 99.0 F 72 20 148/77 99 02/02/22 20:02 73 - Physical Examination General: No Apparent Distress HEENT: Positive: EOMI, Normocephaly Neck: Negative: JVD/HJR Cardiac: Positive: Reg Rate and Rhythm, S1/S2 Lungs: Positive: Decreased Breath Sounds Neuro: Positive: Grossly Intact Abdomen: Positive: Soft Skin: Negative: Rash Musculoskeletal: No Pain Extremities: Present: edema, warm - Labs and Meds Comprehensive Metabolic Panel 02/03/22 Range/Units 07:11 Sodium 137 (137-145) mmol/L Potassium 4.3 (3.6-5.0) mmol/L Chloride 96.9 L (98-107) mmol/L Carbon Dioxide 30 (22-30) mmol/L BUN 16 (7-17) mg/dL Creatinine 0.8 (0.6-1.2) mg/dL Glucose 102 H (65-100) mg/dL Calcium 8.9 (8.4-10.2) mg/dL - Imaging and Cardiology EKG: report reviewed, image reviewed Echo: report reviewed (01/08/2022 - LVEF 50-55%, moderate LVH, RV mildly dilated, RVSF grossly normal, moderate-severe TR, RVSP 53mmHg, no pericardial effusion.), other (03/25/2021 - EF 50 to 55%, moderate concentric left ventricular hypertrophy. Right ventricle mildly dilated, right ventricle hypokinetic. Left atrium moderately dilated, right atrium mildly dilated. Mild to moderate tricuspid regurgitation. Moderate pulmonary hypertension.) Cardiac cath: report reviewed (06/20/2018 - successful PCI with intravascular ultrasound of the ramus with DIANELYS which was 100% culprit vessel. Left main pat ent, LAD patent. RCA mmoderate to severe tortuosity with mid stent patent, Circumflex patent, OM1 50% with ramus 100% with successful PCI.) - Telemetry EKG Rhythm: Sinus Rhythm - EKG Sinus rhythms and dysrhythmias: sinus rhythm Supraventricular dysrhythmia: atrial premature complexe Chamber hypertrophy or enlargement: right atrial enlargment Repolarization changes or abnormalities: Q-T interval prolongation
[2022-02-03] MEDS: MONTELUKAST 10 MG TAB PO SCH (21:16)
[2022-02-04] MEDS: IPRATROPIUM 0.02% NEBU 2.5 ML IH SCH ×4 (03:28→20:06)
[2022-02-04] MEDS: hydrALAZINE 100 MG TAB PO SCH ×3 (06:22→22:15)
[2022-02-04 07:46] LABS: BUN/Creatinine Ratio 18; Blood Urea Nitrogen 16 mg/dL (7-17); Calcium 8.8 mg/dL (8.4-10.2); Hemolysis Index 0
--- NOTE | 2022-02-04 07:56 | Progress Note ---
Assessment and Plan Assessment and plan: This is 61-year-old female with COPD, CHF, PE, CAD s/p stent placement and noncompliance who presented to the emergency department on 01/28 with complaints of shortness of breath via EMS. Upon EMS arrival patient was tachypneic, not on any oxygen tripod positioned and using accessory muscles for respirations and SPO2 was 92% on room air. Patient also noted that she fell at home and was on the floor for quite some time before getting help to get up from the floor. Upon arrival to the emergency department patient's blood pressure was in the 200s over 100s and she did not respond to IV hydralazine and metoprolol and was placed on a Cardene drip and CXR showed CSF exacerbation. Patient was admitted to the hospitalist service with consult to cardiology with malignant hypertensive urgency and CHF exacerbation. Hospital course to date: 01/29: Patient has been weaned off of Cardene drip and will be started on p.o. metoprolol, hydralazine, Imdur and valsartan. PT/OT consulted. We will obtain right lower extremity ultrasound for swelling to rule out DVT. Patient will transfer to telemetry. 01/30: Swelling improved in lower extremity. LE US negative for DVT. Dispo: [facility] per PT notes. D/w CM who have initiated work on referral/auth process. 01/31: significant urine OP. good response to diuresis. Improvement seen on exam, decresae in LE edema. Ordered BMP for tomorrow AM. Xanax prn anxiety and percocet prn mod pain as patient complaining of chest wall pain and anxiety associated with hospitalization . Pending placement to [facility]. 02/01: Awaiting placement to [facility]. Currently requiring 4L NC satting 94%. Wean as sats tolerate > 90%. D/c percocet as patient has inadequate pain control. Started on dilaudid po. Blood pressure high, patient was refusing last night's meds. Educated on needs for meds on continuous basis today. Patient agreed to taking meds, f/u bp in afternoon 150's sbp. Still awaiting placement to [facility]. 02/02: Awaiting placement to [facility]. 02/03: Patient continues to diurese appropriately. We did have a conversation about weight management she verbalized understanding. She is waiting for subacute rehab placement due to recurrent falls. Will monitor electrolytes considering diuresis. She continues with oxygen but I believe she does have mor bid obesity hypoventilation syndrome and have discussed reinstating her BiPAP/CPAP for all hours of sleep while in the hospital. I also emphasized the importance of quitting tobacco use she verbalized understanding. 15 minutes counseling provided and also another 15 minutes on preventive care. 02/04: Patient continues to show remarkable improvement renal function is intact. Good urine output. Cardiology plans to switch IV Lasix to p.o. this morning in preparation for discharge. Continues on 3 L of oxygen. Will need to be discharged on home O2. Weight loss counseling emphasized again. Assessment and Plan: Neuro: Noncompliance, anxiety -Reorientation as needed -Maintain sleep-wake cycle -As needed analgesia -Medical compliance strongly encouraged -Continue home Celexa - xanax prn anxiety Cardiac: Hypertensive urgency, acute on chronic diastolic heart failure, CAD s/p stent (06/2018) -Cardiology consulted, appreciate recommendations -Blood pressure monitoring per protocol -S/p Cardene drip -P.o. hydralazine, metoprolol, Imdur, valsartan -Admit proBNP 11,363 -Lasix 40 mg twice daily -Plavix, aspirin, Lipitor -01/09/2020 echocardiogram shows EF of 50 to 55% -Of note: Echo 09/15/2020-LVEF is 50 to 55%. LV SF is normal. Moderate LVH. RV SF is normal. Moderate pulmonary hypertension cannot be excluded due to poor regurgitant envelope [facility] 06/20/2018 successful PCI with intravascular ultrasound of the ramus with DIANELYS which was 100% culprit vessel with DIANELYS. Left main patent, LAD patent. RCA mmoderate to severe tortuosity with mid stent patent, circumflex pateent, ARIELA 50% with sintia 100% with successful PCI. Acute diastolic dysfunction Echo 03/25/2021 EF 50 to 55%, moderate concentric left ventricular hypertrophy. Right ventricle mildly dilated, right ventricle hypokinetic. Left atrium moderately dilated right atrium mildly dilated. Mild to moderate tricuspid regurgitation. Moderate pulmonary hypertension. Respiratory: Acute on chronic hypoxic respiratory failure (2 L nasal cannula at home), current nicotine abuse, obstructive sleep apnea -Initially presented with shortness of breath -CCM consulted, appreciate recommendations -Continue nasal cannula -SPO2 monitor per protocol -Supplemental oxygen as needed -Pulmonary hygiene -Continue Brovana, Singulair, Pulmicort -Tobacco cessation counseling provided GI: Morbid obesity -24 hours +38 mL -PPI -cc cardiac diet : NAD -Monitor intake and output -Renally dose medications -Avoid nephrotoxic medications ID: NAD -f/u blood culture -Monitor WBC and temperature curve Endo: Hyperglycemia -Avoid hypoglycemia -SSI -Accu-Cheks ACHS -hbg a1c pending Heme: r/o DVT, h/o PE -Left lower extremity Doppler ultrasound pending swelling -Trend CBC -Transfuse hemoglobin less than 7 -SCDs to BLE while in bed #Advance care planning Disease education conducted, care plan discussed, diagnoses discussed, prognosis discussed, patient is full code, patient acknowledges understanding and agree with care plan, +30 minutes. History Interval history: Patient seen and examined complaints. Sitting up by the bedside. She is on 3 L of oxygen nasal cannula Hospitalist Physical - Physical exam Narrative exam: General appearance: Present: no acute distress, morbidly obese on 3 L of oxygen - EENT Eyes: Present: PERRL, EOM intact ENT: hearing intact, clear oral mucosa, dentition normal - Neck Neck: Present: normal ROM - Respiratory Respiratory effort: normal Respiratory: bilateral: CTA, diminished - Cardiovascular Rhythm: regular Heart Sounds: Present: S1 & S2. Absent: systolic murmur, diastolic murmur - Extremities Extremities: no ischemia, pulses intact, pulses symmetrical Extremity abnormal: edema Peripheral Pulses: within normal limits - Abdominal General gastrointestinal: soft, non-tender, non-distended, normal bowel sounds - Integumentary Integumentary: Present: warm, dry - Psychiatric Psychiatric: cooperative - Neurologic Neurologic: CNII-XII intact, no focal deficits, moves all extremities - Allied Health Allied health notes reviewed: nursing, RT, social work - Constitutional Vitals: Temp Pulse Resp BP Pulse Ox 97.9 F 76 18 144/75 93 02/04/22 03:37 02/04/22 03:37 02/04/22 03:37 02/04/22 03:37 02/04/22 03:37 General appearance: Present: no acute distress, obese HEART Score - HEART Score Troponin: Troponin T < 0.010 ng/mL (0.00-0.029) 01/28/22 16:32 Results - Labs CBC & Chem 7: 01/28/22 16:32 02/04/22 07:12 Labs: Laboratory Last Values WBC 5.8 K/mm3 (4.5-11.0) 01/28/22 16:32 RBC 5.13 M/mm3 (3.65-5.03) H 01/28/22 16:32 Hgb 10.8 gm/dl (10.1-14.3) 01/28/22 16:32 Hct 35.3 % (30.3-42.9) 01/28/22 16:32 MCV 69 fl (79-97) L 01/28/22 16:32 MCH 21 pg (28-32) L 01/28/22 16:32 MCHC 31 % (30-34) 01/28/22 16:32 RDW 25.0 % (13.2-15.2) H 01/28/22 16:32 Plt Count 309 K/mm3 (140-440) 01/28/22 16:32 Add Manual Diff Complete 01/28/22 16:32 Total Counted 100 01/28/22 16:32 Seg Neuts % (Manual) 88.0 % (40.0-70.0) H 01/28/22 16:32 Band Neutrophils % 0 % 01/28/22 16:32 Lymphocytes % (Manual) 6.0 % (13.4-35.0) L 01/28/22 16:32 Reactive Lymphs % (Man) 0 % 01/28/22 16:32 Monocytes % (Manual) 5.0 % (0.0-7.3) 01/28/22 16:32 Eosinophils % (Manual) 1.0 % (0.0-4.3) 01/28/22 16:32 Basophils % (Manual) 0 % (0.0-1.8) 01/28/22 16:32 Metamyelocytes % 0 % 01/28/22 16:32 Myelocytes % 0 % 01/28/22 16:32 Promyelocytes % 0 % 01/28/22 16:32 Blast Cells % 0 % 01/28/22 16:32 Nucleated RBC % Not Reportable 01/28/22 16:32 Seg Neutrophils # Man 5.1 K/mm3 (1.8-7.7) 01/28/22 16:32 Band Neutrophils # 0.0 K/mm3 01/28/22 16:32 Lymphocytes # (Manual) 0.3 K/mm3 (1.2-5.4) L 01/28/22 16:32 Abs React Lymphs (Man) 0.0 K/mm3 01/28/22 16:32 Monocytes # (Manual) 0.3 K/mm3 (0.0-0.8) 01/28/22 16:32 Eosinophils # (Manual) 0.1 K/mm3 (0.0-0.4) 01/28/22 16:32 Basophils # (Manual) 0.0 K/mm3 (0.0-0.1) 01/28/22 16:32 Metamyelocytes # 0.0 K/mm3 01/28/22 16:32 Myelocytes # 0.0 K/mm3 01/28/22 16:32 Promyelocytes # 0.0 K/mm3 01/28/22 16:32 Blast Cells # 0.0 K/mm3 01/28/22 16:32 WBC Morphology Not Reportable 01/28/22 16:32 Hypersegmented Neuts Not Reportable 01/28/22 16:32 Hyposegmented Neuts Not Reportable 01/28/22 16:32 Hypogranular Neuts Not Reportable 01/28/22 16:32 Smudge Cells Not Reportable 01/28/22 16:32 Toxic Granulation Not Reportable 01/28/22 16:32 Toxic Vacuolation Not Reportable 01/28/22 16:32 Dohle Bodies Not Reportable 01/28/22 16:32 Pelger-Huet Anomaly Not Reportable 01/28/22 16:32 Juan Rods Not Reportable 01/28/22 16:32 Platelet Estimate Consistent w auto 01/28/22 16:32 Clumped Platelets Not Reportable 01/28/22 16:32 Plt Clumps, EDTA Not Reportable 01/28/22 16:32 Large Platelets Not Reportable 01/28/22 16:32 Giant Platelets Few 01/28/22 16:32 Platelet Satelliting Not Reportable 01/28/22 16:32 Plt Morphology Comment Not Reportable 01/28/22 16:32 RBC Morphology Not Reportable 01/28/22 16:32 Dimorphic RBCs Not Reportable 01/28/22 16:32 Polychromasia Not Reportable 01/28/22 16:32 Hypochromasia 2+ 01/28/22 16:32 Poikilocytosis Not Reportable 01/28/22 16:32 Anisocytosis 2+ 01/28/22 16:32 Microcytosis 2+ 01/28/22 16:32 Macrocytosis Not Reportable 01/28/22 16:32 Spherocytes Not Reportable 01/28/22 16:32 Pappenheimer Bodies Not Reportable 01/28/22 16:32 Sickle Cells Not Reportable 01/28/22 16:32 Target Cells Few 01/28/22 16:32 Tear Drop Cells Not Reportable 01/28/22 16:32 Ovalocytes Few 01/28/22 16:32 Helmet Cells Not Reportable 01/28/22 16:32 Lozano-[place] Bodies Not Reportable 01/28/22 16:32 Avis Rings Not Reportable 01/28/22 16:32 Joanna Cells Not Reportable 01/28/22 16:32 Bite Cells Not Reportable 01/28/22 16:32 Crenated Cell Not Reportable 01/28/22 16:32 Elliptocytes Few 01/28/22 16:32 Acanthocytes (Spur) Not Reportable 01/28/22 16:32 Rouleaux Not Reportable 01/28/22 16:32 Hemoglobin C Crystals Not Reportable 01/28/22 16:32 Schistocytes Not Reportable 01/28/22 16:32 Malaria parasites Not Reportable 01/28/22 16:32 Didier Bodies Not Reportable 01/28/22 16:32 Hem Pathologist Commnt No 01/28/22 16:32 PT 15.3 Sec. (12.2-14.9) H 01/28/22 16:32 INR 1.09 (0.87-1.13) 01/28/22 16:32 Sodium 140 mmol/L (137-145) 02/04/22 07:12 Potassium 4.2 mmol/L (3.6-5.0) 02/04/22 07:12 Chloride 99.6 mmol/L (98-107) 02/04/22 07:12 Carbon Dioxide 31 mmol/L (22-30) H 02/04/22 07:12 Anion Gap 14 mmol/L 02/04/22 07:12 BUN 16 mg/dL (7-17) 02/04/22 07:12 Creatinine 0.9 mg/dL (0.6-1.2) 02/04/22 07:12 Estimated GFR > 60 ml/min 02/04/22 07:12 BUN/Creatinine Ratio 18 % 02/04/22 07:12 Glucose 111 mg/dL (65-100) H 02/04/22 07:12 POC Glucose 130 mg/dL (70-105) H 02/03/22 20:04 Hemoglobin A1c 6.0 % (4-6) 01/28/22 16:32 Ketones Quantitative Negative (Negative) 01/28/22 16:32 Lactic Acid 1.90 mmol/L (0.7-2.0) 01/28/22 16:32 Calcium 8.8 mg/dL (8.4-10.2) 02/04/22 07:12 Magnesium 1.80 mg/dL (1.7-2.3) 02/01/22 04:23 Total Bilirubin 0.60 mg/dL (0.1-1.2) 01/28/22 16:32 AST 11 units/L (5-40) 01/28/22 16:32 ALT 6 units/L (7-56) L 01/28/22 16:32 Alkaline Phosphatase 221 units/L (35-129) H 01/28/22 16:32 Total Creatine Kinase 34 units/L (30-135) 01/28/22 16:32 Total Creatine Kinase 39 units/L (30-135) 01/28/22 16:32 CK-MB (CK-2) 2.8 ng/mL (0.0-4.0) 01/28/22 16:32 CK-MB (CK-2) Rel Index 8.2 (0-4) H 01/28/22 16:32 Troponin T < 0.010 ng/mL (0.00-0.029) 01/28/22 16:32 NT-Pro-B Natriuret Pep 41770 pg/mL (0-900) H 01/28/22 16:32 Total Protein 7.8 g/dL (6.3-8.2) 01/28/22 16:32 Albumin 3.9 g/dL (3.9-5) 01/28/22 16:32 Albumin/Globulin Ratio 1.0 % 01/28/22 16:32 Lipase 12 units/L (13-60) L 01/28/22 16:32 Urine Color Yellow (Yellow) 01/28/22 17:02 Urine Turbidity Clear (Clear) 01/28/22 17:02 Specific [place] (Man) 1.010 (1.003-1.030) 01/28/22 17:02 Ur Protein (Man) 1+ mg/dL (Negative) 01/28/22 17:02 Ur Ketones (Man) Negative (Negative) 01/28/22 17:02 Ur Nitrite (Man) Positive (Negative) 01/28/22 17:02 Urine Bilirubin (Man) Negative (Negative) 01/28/22 17:02 Leukocyte Esterase (Man) Negative (Negative) 01/28/22 17:02 Urine WBC (Auto) 4.0 /HPF (0.0-6.0) 01/28/22 17:02 Urine RBC (Auto) 1.0 /HPF (0.0-6.0) 01/28/22 17:02 Urine RBC (Manual) 1+ (Negative) 01/28/22 17:02 Urine Mucus Few /HPF 01/28/22 17:02 Urine Opiates Screen Presumptive negative 01/28/22 17:02 Urine Methadone Screen Presumptive negative 01/28/22 17:02 Ur Barbiturates Screen Presumptive negative 01/28/22 17:02 Ur Phencyclidine Scrn Presumptive negative 01/28/22 17:02 Ur Amphetamines Screen Presumptive negative 01/28/22 17:02 U Benzodiazepines Scrn Presumptive negative 01/28/22 17:02 Urine Cocaine Screen Presumptive negative 01/28/22 17:02 U Marijuana (THC) Screen Presumptive negative 01/28/22 17:02 Drugs of Abuse Note Disclamer 01/28/22 17:02 Coronavirus (PCR) Negative (Negative) 02/02/22 Unknown Fabian/IV: Voiding Method External Female Catheter Active Medications - Current Medications Current Medications: Generic Name Dose Route Start Last Admin Trade Name Freq PRN Reason Stop Dose Admin Acetaminophen 650 mg 01/28/22 23:53 01/31/22 09:34 Acetaminophen 325 Mg Tab PO 650 mg Q4H PRN Administration Pain MILD(1-3)/Fever >100.5/ALAS Albuterol 2.5 mg 02/01/22 15:00 02/01/22 14:43 Albuterol 2.5 Mg/3 Ml Nebu IH 2.5 mg Q4HRT PRN Administration Shortness Of Breath Alprazolam 0.5 mg 01/31/22 14:31 02/03/22 13:57 Alprazolam 0.5 Mg Tab PO 0.5 mg Q8H PRN Administration Anxiety Arformoterol Tartrate 15 mcg 01/29/22 20:00 02/03/22 20:51 Arformoterol 15 Mcg/2 Ml Nebu IH 15 mcg Q12HRT ANN MARIE Administration Aspirin 81 mg 01/29/22 10:00 02/03/22 09:50 Aspirin Ec 81 Mg Tab PO 81 mg QDAY ANN MARIE Administration Atorvastatin Calcium 40 mg 01/29/22 22:00 02/03/22 21:16 Atorvastatin 40 Mg Tab PO 40 mg QHS ANN MARIE Administration Budesonide 0.5 mg 01/29/22 20:00 02/03/22 20:46 Budesonide 0.5 Mg/2 Ml Nebu IH 0.5 mg Q12HRT ANN MARIE Administration Citalopram Hydrobromide 20 mg 01/29/22 10:00 02/03/22 09:49 Citalopram 20 Mg Tab PO 20 mg QDAY ANN MARIE Administration Clonidine HCl 0.2 mg 02/01/22 12:00 02/03/22 21:16 Clonidine 0.1 Mg Tab PO 0.2 mg Q12HR ANN MARIE Administration Clopidogrel Bisulfate 75 mg 01/29/22 10:00 02/03/22 09:49 Clopidogrel 75 Mg Tab PO 75 mg QDAY ANN MARIE Administration Dextrose 0 ml 01/28/22 23:53 Dextrose 50% In Water (25gm) 50 Ml Syringe IV Q30MIN PRN Hypoglycemia Protocol Famotidine 20 mg 01/29/22 10:00 02/03/22 09:49 Famotidine 20 Mg Tab PO 20 mg DAILY ANN MARIE Administration Furosemide 40 mg 01/29/22 06:00 02/03/22 17:13 Furosemide 40 Mg/4 Ml Inj IV 40 mg BID@0600,1800 ANN MARIE Administration Hydralazine HCl 100 mg 01/29/22 14:00 02/04/22 06:22 Hydralazine 100 Mg Tab PO 100 mg Q8HR ANN MARIE Administration Hydromorphone HCl 0.25 mg 02/02/22 15:25 02/03/22 21:15 Hydromorphone 0.5 Mg/0.5 Ml Inj IV 0.25 mg Q6H PRN Administration Pain, Moderate (4-6) Insulin Human Lispro 0 unit 01/29/22 07:30 02/03/22 21:26 Insulin Lispro 100 Unit/Ml SUB-Q Not Given [facility] Protocol Ipratropium [place] 0.5 mg 02/01/22 14:00 02/04/22 03:28 Ipratropium 0.02% Nebu 2.5 Ml IH 0.5 mg Q6HRT ANN MARIE Administration Isosorbide Mononitrate 60 mg 01/29/22 10:00 02/03/22 09:50 Isosorbide Mononitrate Er 60 Mg Tab PO 60 mg QDAY ANN MARIE Administration Magnesium Hydroxide 30 ml 01/28/22 23:53 Magnesium Hydroxide (Mom) Oral Liqd Udc PO Q4H PRN Constipation Metoprolol Tartrate 100 mg 01/31/22 22:00 02/03/22 21:16 Metoprolol Tartrate 50 Mg Tab PO 100 mg BID ANN MARIE Administration Montelukast Sodium 10 mg 01/29/22 22:00 02/03/22 21:16 Montelukast 10 Mg Tab PO 10 mg QHS ANN MARIE Administration Multivitamins/Minerals 1 each 01/29/22 10:00 02/03/22 09:49 Multivitamins,Ther W-Minerals Tab PO 1 each QDAY ANN MARIE Administration Nifedipine 90 mg 01/30/22 10:00 02/03/22 09:50 Nifedipine Xl 90 Mg Tab PO 90 mg QDAY ANN MARIE Administration Ondansetron HCl 4 mg 01/28/22 23:53 01/29/22 15:28 Ondansetron 4 Mg/2 Ml Inj IV 4 mg Q8H PRN Administration Nausea And Vomiting Sodium Chloride 10 ml 01/29/22 10:00 02/03/22 21:17 Sodium Chloride 0.9% 10 Ml Flush Syringe IV 10 ml BID ANN MARIE Administration Sodium Chloride 10 ml 01/28/22 23:53 01/31/22 06:13 Sodium Chloride 0.9% 10 Ml Flush Syringe IV 10 ml PRN PRN Administration LINE FLUSH Valsartan 160 mg 01/29/22 11:00 02/03/22 21:15 Valsartan 160mg Tab PO 160 mg BID ANN MARIE Administration Nutrition/Malnutrition Assess - Dietary Evaluation Nutrition/Malnutrition Findings: Nutrition Notes Start: 01/29/22 13:57 Freq: Status: Active Protocol: Document 01/29/22 13:57 FREDERICK (Rec: 01/29/22 14:08 FREDERICK [email or web address]) Nutrition Notes Need for Assessment generated from: MD Order,Education Initial or Follow up Brief Note Current Diagnosis COPD,Coronary Artery Disease, Hypertension Other Pertinent Diagnosis CHF, DVT, PE, Cardiomyopathy. Current Diet Cardiac/Consistent Carbohydrates Diet (since B ). 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 Weight Status Morbidly Obese Subjective/Other Information RD consult for nutrition education assessment. No reports available on Pt's PO intake of meals at the time , will assess at F/U. Pt is on Nasal Cannula, O2 saturation @ 94%, according to Physical Assessment History notes. Pt has caries and missing teeth, according to Physical Assessment History notes. Pt presents Bilateral-LE Pitting Edema 2+, according to Physical Assessment History notes. Pt still in critical condition , not a candidate for Nutrition Education at the time, will assess feasibility on F/U. Percent of energy/protein needs met: Prescribed Cardiac/Consistent Carbohydrates Diet provides for energy/protein needs (1, 977 Kcal/86 g) during LOS. Nutrition Intervention Follow-Up By: 02/05/22 Additional Comments Nutrition education will be provided at F/U, if feasible. Continue monitoring food tolerance, %PO intake of meals , and BM.
[2022-02-04] MEDS: INSULIN LISPRO 100 UNIT/ML SUB-Q SCH ×4 (08:28→22:15)
[2022-02-04] MEDS: ARFORMOTEROL 15 MCG/2 ML NEBU IH SCH ×2 (08:48→20:06)
[2022-02-04] MEDS: BUDESONIDE 0.5 MG/2 ML NEBU IH SCH ×2 (08:48→20:06)
[2022-02-04] MEDS: MULTIVITAMINS,THER W-MINERALS TAB PO SCH (09:35)
[2022-02-04] MEDS: VALSARTAN 160MG TAB PO SCH ×2 (09:35→22:15)
[2022-02-04] MEDS: cloNIDine 0.1 MG TAB PO SCH ×2 (09:35→22:14)
[2022-02-04] MEDS: CLOPIDOGREL 75 MG TAB PO SCH (09:35)
[2022-02-04] MEDS: CITALOPRAM 20 MG TAB PO SCH (09:35)
[2022-02-04] MEDS: NIFEdipine XL 90 MG TAB PO SCH (09:35)
[2022-02-04] MEDS: HYDROmorphone 0.5 MG/0.5 ML INJ IV PRN ×3 (09:35→22:21)
[2022-02-04] MEDS: METOPROLOL TARTRATE 50 MG TAB PO SCH ×2 (09:35→22:15)
[2022-02-04] MEDS: ASPIRIN EC 81 MG TAB PO SCH (09:35)
[2022-02-04] MEDS: FAMOTIDINE 20 MG TAB PO SCH (09:36)
[2022-02-04] MEDS: ALPRAZolam 0.5 MG TAB PO PRN ×2 (09:45→14:33)
--- NOTE | 2022-02-04 09:50 | Progress Note ---
Assessment and Plan Continue IV diuresis for now. Discharge planning/rehab arrangements underway per Primary. Pt seen in conjunction with Dr. Regalado, who agrees with the assessment and plan of care. - Patient Problems (1) Acute on chronic respiratory failure Current Visit: Yes Status: Acute Qualifiers: Respiratory failure complication: hypoxia Qualified Code(s): J96.21 - Acute and chronic respiratory failure with hypoxia (2) COPD exacerbation Current Visit: Yes Status: Acute (3) Acute on chronic heart failure with preserved ejection fraction (HFpEF) Current Visit: Yes Status: Acute (4) Hypertensive urgency Current Visit: Yes Status: Acute (5) Pulmonary hypertension Current Visit: Yes Status: Chronic (6) CAD (coronary artery disease) Current Visit: Yes Status: Chronic Qualifiers: Coronary Disease-Associated Artery/Lesion type: [place] artery [place] vs. transplanted heart: [place] heart (7) Stented coronary artery Current Visit: Yes Status: Chronic (8) Diabetes mellitus, type 2 Current Visit: Yes Status: Chronic (9) Morbid obesity Current Visit: Yes Status: Chronic (10) Obstructive sleep apnea Current Visit: Yes Status: Chronic (11) Medical non-compliance Current Visit: Yes Status: Chronic Subjective Date of service: 02/04/22 Principal diagnosis: A/C HFpEF, Hypertensive Urgency Interval history: Breathing is better, diuresing well. Still has edema. Objective Vital Signs Temp Pulse Pulse Resp Resp BP BP 02/04/22 08:53 02/04/22 08:52 98.4 F 78 18 186/100 02/04/22 03:37 97.9 F 76 18 144/75 02/04/22 03:28 80 18 02/04/22 00:39 02/03/22 21:06 02/03/22 20:55 78 18 02/03/22 20:34 98.6 F 85 18 147/75 02/03/22 19:50 85 02/03/22 16:23 66 16 02/03/22 16:06 70 02/03/22 15:00 98.7 F 18 155/87 02/03/22 10:20 68 16 02/03/22 10:00 70 Pulse Ox 02/04/22 08:53 95 02/04/22 08:52 89 02/04/22 03:37 93 02/04/22 03:28 02/04/22 00:39 97 02/03/22 21:06 98 02/03/22 20:55 02/03/22 20:34 91 02/03/22 19:50 02/03/22 16:23 02/03/22 16:06 92 02/03/22 15:00 92 02/03/22 10:20 96 02/03/22 10:00 - Physical Examination General: No Apparent Distress HEENT: Positive: EOMI, Normocephaly Neck: Negative: JVD/HJR Cardiac: Positive: Reg Rate and Rhythm, S1/S2 Lungs: Positive: Decreased Breath Sounds Neuro: Positive: Grossly Intact Abdomen: Positive: Soft Skin: Negative: Rash Musculoskeletal: No Pain Extremities: Present: +1 Edema, warm - Labs and Meds Comprehensive Metabolic Panel 02/04/22 Range/Units 07:12 Sodium 140 (137-145) mmol/L Potassium 4.2 (3.6-5.0) mmol/L Chloride 99.6 (98-107) mmol/L Carbon Dioxide 31 H (22-30) mmol/L BUN 16 (7-17) mg/dL Creatinine 0.9 (0.6-1.2) mg/dL Glucose 111 H (65-100) mg/dL Calcium 8.8 (8.4-10.2) mg/dL - Imaging and Cardiology EKG: report reviewed, image reviewed Echo: report reviewed (01/08/2022 - LVEF 50-55%, moderate LVH, RV mildly dilated, RVSF grossly normal, moderate-severe TR, RVSP 53mmHg, no pericardial effusion.), other (03/25/2021 - EF 50 to 55%, moderate concentric left ventricular hypertrophy. Right ventricle mildly dilated, right ventricle hypokinetic. Left atrium moderately dilated, right atrium mildly dilated. Mild to moderate tricuspid regurgitation. Moderate pulmonary hypertension.) Cardiac cath: report reviewed (06/20/2018 - successful PCI with intravascular ultrasound of the ramus with DIANELYS which was 100% culprit vessel. Left main patent, LAD patent. RCA mmoderate to severe tortuosity with mid stent patent, Circumflex patent, OM1 50% with ramus 100% with successful PCI.) - Telemetry EKG Rhythm: Sinus Rhythm - EKG Sinus rhythms and dysrhythmias: sinus rhythm Chamber hypertrophy or enlargement: right atrial enlargment Repolarization changes or abnormalities: Q-T interval prolongation - Allied health notes Allied health notes reviewed: nursing
[2022-02-04] MEDS: FUROSEMIDE 40 MG/4 ML INJ IV SCH ×2 (10:10→21:35)
[2022-02-04] MEDS: MONTELUKAST 10 MG TAB PO SCH (22:15)
[2022-02-05] MEDS: FUROSEMIDE 40 MG/4 ML INJ IV SCH (05:56)
[2022-02-05] MEDS: hydrALAZINE 100 MG TAB PO SCH ×3 (05:56→22:58)
[2022-02-05] MEDS: INSULIN LISPRO 100 UNIT/ML SUB-Q SCH ×4 (08:24→22:59)
--- NOTE | 2022-02-05 08:34 | Progress Note ---
Assessment and Plan Assessment and plan: Assessment and plan: This is 61-year-old female with COPD, CHF, PE, CAD s/p stent placement and noncompliance who presented to the emergency department on 01/28 with complaints of shortness of breath via EMS. Upon EMS arrival patient was tachypneic, not on any oxygen tripod positioned and using accessory muscles for respirations and SPO2 was 92% on room air. Patient also noted that she fell at home and was on the floor for quite some time before getting help to get up from the floor. Upon arrival to the emergency department patient's blood pressure was in the 200s over 100s and she did not respond to IV hydralazine and metoprolol and was placed on a Cardene drip and CXR showed CSF exacerbation. Patient was admitted to the hospitalist service with consult to cardiology with malignant hypertensive urgency and CHF exacerbation. Hospital course to date: 01/29: Patient has been weaned off of Cardene drip and will be started on p.o. metoprolol, hydralazine, Imdur and valsartan. PT/OT consulted. We will obtain right lower extremity ultrasound for swelling to rule out DVT. Patient will transfer to telemetry. 01/30: Swelling improved in lower extremity. LE US negative for DVT. Dispo: [facility] per PT notes. D/w CM who have initiated work on referral/auth process. 01/31: significant urine OP. good response to diuresis. Improvement seen on exam, decresae in LE edema. Ordered BMP for tomorrow AM. Xanax prn anxiety and percocet prn mod pain as patient complaining of chest wall pain and anxiety associated with hospitalization . Pending placement to [facility]. 02/01: Awaiting placement to [facility]. Currently requiring 4L NC satting 94%. Wean as sats tolerate > 90%. D/c percocet as patient has inadequate pain control. Started on dilaudid po. Blood pressure high, patient was refusing last night's meds. Educated on needs for meds on continuous basis today. Patient agreed to taking meds, f/u bp in afternoon 150's sbp. Still awaiting placement to [facility]. 02/02: Awaiting placement to [facility]. 02/03: Patient continues to diurese appropriately. We did have a conversation about weight management she verbalized understanding. She is waiting for subacute rehab placement due to recurrent falls. Will monitor electrolytes considering diuresis. She continues with oxygen but I believe she does have morbid obesity hypoventilation syndrome and have discussed reinstating her BiPAP/CPAP for all hours of sleep while in the hospital. I also emphasized the importance of quitting tobacco use she verbalized understanding. 15 minutes counseling provided and also another 15 minutes on preventive care. 02/04: Patient continues to show remarkable improvement renal function is intact. Good urine output. Cardiology plans to switch IV Lasix to p.o. this morning in preparation for discharge. Continues on 3 L of oxygen. Will need to be discharged on home O2. Weight loss counseling emphasized again. 02/05: D/w cardiology regarding HF medications. Patient optimized. Will need to adhere to medication regimen which has been communicated to her. Pending p johann. Awaiting authorization. coronavirus test ordered this AM. Likely placement to [facility]. Assessment and Plan: Neuro: Noncompliance, anxiety -Reorientation as needed -Maintain sleep-wake cycle -As needed analgesia -Medical compliance strongly encouraged -Continue home Celexa - xanax prn anxiety Cardiac: Hypertensive urgency, acute on chronic diastolic heart failure, CAD s/p stent (06/2018) -Cardiology consulted, appreciate recommendations -Blood pressure monitoring per protocol -S/p Cardene drip -P.o. hydralazine, metoprolol, Imdur, valsartan -Admit proBNP 11,363 -Lasix 40 mg twice daily -Plavix, aspirin, Lipitor -01/09/2020 echocardiogram shows EF of 50 to 55% -Of note: Echo 09/15/2020-LVEF is 50 to 55%. LV SF is normal. Moderate LVH. RV SF is normal. Moderate pulmonary hypertension cannot be excluded due to poor regurgit ant envelope [facility] 06/20/2018 successful PCI with intravascular ultrasound of the ramus with DIANELYS which was 100% culprit vessel with DIANELYS. Left main patent, LAD patent. RCA mmoderate to severe tortuosity with mid stent patent, circumflex pateent, ARIELA 50% with sintia 100% with successful PCI. Acute diastolic dysfunction Echo 03/25/2021 EF 50 to 55%, moderate concentric left ventricular hypertrophy. Right ventricle mildly dilated, right ventricle hypokinetic. Left atrium moderately dilated right atrium mildly dilated. Mild to moderate tricuspid regurgitation. Moderate pulmonary hypertension. Respiratory: Acute on chronic hypoxic respiratory failure (chronic 2 L nasal cannula at home), current nicotine abuse, obstructive sleep apnea -Initially presented with shortness of breath -CCM consulted, appreciate recommendations -Continue nasal cannula -SPO2 monitor per protocol -Supplemental oxygen as needed -Pulmonary hygiene -Continue Brovana, Singulair, Pulmicort -Tobacco cessation counseling provided GI: Morbid obesity -24 hours +38 mL -PPI -cc cardiac diet : NAD -Monitor intake and output -Renally dose medications -Avoid nephrotoxic medications ID: NAD -f/u blood culture -Monitor WBC and temperature curve Endo: Hyperglycemia -Avoid hypoglycemia -SSI -Accu-Cheks ACHS -hbg a1c pending Heme: r/o DVT, h/o PE -Left lower extremity Doppler ultrasound pending swelling -Trend CBC -Transfuse hemoglobin less than 7 -SCDs to BLE while in bed #Advance care planning Disease education conducted, care plan discussed, diagnoses discussed, prognosis discussed, patient is full code, patient acknowledges understanding and agree with care plan, +30 minutes. Time spent: +35 min CPT [id number] History Interval history: NO acute complaints this Am. Hospitalist Physical - Physical exam Narrative exam: General appearance: Present: no acute distress, obese - EENT Eyes: Present: PERRL, EOM intact ENT: hearing intact, clear oral mucosa, dentition normal - Neck Neck: Present: normal ROM - Respiratory Respiratory effort: normal Respiratory: bilateral: CTA, diminished - Cardiovascular Rhythm: regular Heart Sounds: Present: S1 & S2. Absent: systolic murmur, diastolic murmur - Extremities Extremities: no ischemia, pulses intact, pulses symmetrical Extremity abnormal: edema Peripheral Pulses: within normal limits - Abdominal General gastrointestinal: soft, non-tender, non-distended, normal bowel sounds - Integumentary Integumentary: Present: warm, dry - Psychiatric Psychiatric: cooperative - Neurologic Neurologic: CNII-XII intact, no focal deficits, moves all extremities - Allied Health Allied health notes reviewed: nursing, RT, social work - Constitutional Vitals: Temp Pulse Resp BP Pulse Ox 98.3 F 73 18 170/91 94 02/05/22 08:08 02/05/22 08:08 02/05/22 08:08 02/05/22 08:08 02/05/22 08:08 General appearance: Present: no acute distress, obese HEART Score - HEART Score Troponin: Troponin T < 0.010 ng/mL (0.00-0.029) 01/28/22 16:32 Results - Labs CBC & Chem 7: 01/28/22 16:32 02/04/22 07:12 Labs: Laboratory Last Values WBC 5.8 K/mm3 (4.5-11.0) 01/28/22 16:32 RBC 5.13 M/mm3 (3.65-5.03) H 01/28/22 16:32 Hgb 10.8 gm/dl (10.1-14.3) 01/28/22 16:32 Hct 35.3 % (30.3-42.9) 01/28/22 16:32 MCV 69 fl (79-97) L 01/28/22 16:32 MCH 21 pg (28-32) L 01/28/22 16:32 MCHC 31 % (30-34) 01/28/22 16:32 RDW 25.0 % (13.2-15.2) H 01/28/22 16:32 Plt Count 309 K/mm3 (140-440) 01/28/22 16:32 Add Manual Diff Complete 01/28/22 16:32 Total Counted 100 01/28/22 16:32 Seg Neuts % (Manual) 88.0 % (40.0-70.0) H 01/28/22 16:32 Band Neutrophils % 0 % 01/28/22 16:32 Lymphocytes % (Manual) 6.0 % (13.4-35.0) L 01/28/22 16:32 Reactive Lymphs % (Man) 0 % 01/28/22 16:32 Monocytes % (Manual) 5.0 % (0.0-7.3) 01/28/22 16:32 Eosinophils % (Manual) 1.0 % (0.0-4.3) 01/28/22 16:32 Basophils % (Manual) 0 % (0.0-1.8) 01/28/22 16:32 Metamyelocytes % 0 % 01/28/22 16:32 Myelocytes % 0 % 01/28/22 16:32 Promyelocytes % 0 % 01/28/22 16:32 Blast Cells % 0 % 01/28/22 16:32 Nucleated RBC % Not Reportable 01/28/22 16:32 Seg Neutrophils # Man 5.1 K/mm3 (1.8-7.7) 01/28/22 16:32 Band Neutrophils # 0.0 K/mm3 01/28/22 16:32 Lymphocytes # (Manual) 0.3 K/mm3 (1.2-5.4) L 01/28/22 16:32 Abs React Lymphs (Man) 0.0 K/mm3 01/28/22 16:32 Monocytes # (Manual) 0.3 K/mm3 (0.0-0.8) 01/28/22 16:32 Eosinophils # (Manual) 0.1 K/mm3 (0.0-0.4) 01/28/22 16:32 Basophils # (Manual) 0.0 K/mm3 (0.0-0.1) 01/28/22 16:32 Metamyelocytes # 0.0 K/mm3 01/28/22 16:32 Myelocytes # 0.0 K/mm3 01/28/22 16:32 Promyelocytes # 0.0 K/mm3 01/28/22 16:32 Blast Cells # 0.0 K/mm3 01/28/22 16:32 WBC Morphology Not Reportable 01/28/22 16:32 Hypersegmented Neuts Not Reportable 01/28/22 16:32 Hyposegmented Neuts Not Reportable 01/28/22 16:32 Hypogranular Neuts Not Reportable 01/28/22 16:32 Smudge Cells Not Reportable 01/28/22 16:32 Toxic Granulation Not Reportable 01/28/22 16:32 Toxic Vacuolation Not Reportable 01/28/22 16:32 Dohle Bodies Not Reportable 01/28/22 16:32 Pelger-Huet Anomaly Not Reportable 01/28/22 16:32 Juan Rods Not Reportable 01/28/22 16:32 Platelet Estimate Consistent w auto 01/28/22 16:32 Clumped Platelets Not Reportable 01/28/22 16:32 Plt Clumps, EDTA Not Reportable 01/28/22 16:32 Large Platelets Not Reportable 01/28/22 16:32 Giant Platelets Few 01/28/22 16:32 Platelet Satelliting Not Reportable 01/28/22 16:32 Plt Morphology Comment Not Reportable 01/28/22 16:32 RBC Morphology Not Reportable 01/28/22 16:32 Dimorphic RBCs Not Reportable 01/28/22 16:32 Polychromasia Not Reportable 01/28/22 16:32 Hypochromasia 2+ 01/28/22 16:32 Poikilocytosis Not Reportable 01/28/22 16:32 Anisocytosis 2+ 01/28/22 16:32 Microcytosis 2+ 01/28/22 16:32 Macrocytosis Not Reportable 01/28/22 16:32 Spherocytes Not Reportable 01/28/22 16:32 Pappenheimer Bodies Not Reportable 01/28/22 16:32 Sickle Cells Not Reportable 01/28/22 16:32 Target Cells Few 01/28/22 16:32 Tear Drop Cells Not Reportable 01/28/22 16:32 Ovalocytes Few 01/28/22 16:32 Helmet Cells Not Reportable 01/28/22 16:32 [place]ozano-[place] Bodies Not Reportable 01/28/22 16:32 [place] Rings Not Reportable 01/28/22 16:32 [place] Cells Not Reportable 01/28/22 16:32 Bite Cells Not Reportable 01/28/22 16:32 Crenated Cell Not Reportable 01/28/22 16:32 Elliptocytes Few 01/28/22 16:32 Acanthocytes (Spur) Not Reportable 01/28/22 16:32 Rouleaux Not Reportable 01/28/22 16:32 Hemoglobin C Crystals Not Reportable 01/28/22 16:32 Schistocytes Not Reportable 01/28/22 16:32 Malaria parasites Not Reportable 01/28/22 16:32 [place]ier Bodies Not Reportable 01/28/22 16:32 Hem Pathologist Commnt No 01/28/22 16:32 PT 15.3 Sec. (12.2-14.9) H 01/28/22 16:32 INR 1.09 (0.87-1.13) 01/28/22 16:32 Sodium 140 mmol/L (137-145) 02/04/22 07:12 Potassium 4.2 mmol/L (3.6-5.0) 02/04/22 07:12 Chloride 99.6 mmol/L (98-107) 02/04/22 07:12 Carbon Dioxide 31 mmol/L (22-30) H 02/04/22 07:12 Anion Gap 14 mmol/L 02/04/22 07:12 BUN 16 mg/dL (7-17) 02/04/22 07:12 Creatinine 0.9 mg/dL (0.6-1.2) 02/04/22 07:12 Estimated GFR > 60 ml/min 02/04/22 07:12 BUN/Creatinine Ratio 18 % 02/04/22 07:12 Glucose 111 mg/dL (65-100) H 02/04/22 07:12 POC Glucose 164 mg/dL (70-105) H 02/04/22 21:03 Hemoglobin A1c 6.0 % (4-6) 01/28/22 16:32 Ketones Quantitative Negative (Negative) 01/28/22 16:32 Lactic Acid 1.90 mmol/L (0.7-2.0) 01/28/22 16:32 Calcium 8.8 mg/dL (8.4-10.2) 02/04/22 07:12 Magnesium 1.80 mg/dL (1.7-2.3) 02/01/22 04:23 Total Bilirubin 0.60 mg/dL (0.1-1.2) 01/28/22 16:32 AST 11 units/L (5-40) 01/28/22 16:32 ALT 6 units/L (7-56) L 01/28/22 16:32 Alkaline Phosphatase 221 units/L (35-129) H 01/28/22 16:32 Total Creatine Kinase 34 units/L (30-135) 01/28/22 16:32 Total Creatine Kinase 39 units/L (30-135) 01/28/22 16:32 CK-MB (CK-2) 2.8 ng/mL (0.0-4.0) 01/28/22 16:32 CK-MB (CK-2) Rel Index 8.2 (0-4) H 01/28/22 16:32 Troponin T < 0.010 ng/mL (0.00-0.029) 01/28/22 16:32 NT-Pro-B Natriuret Pep 75246 pg/mL (0-900) H 01/28/22 16:32 Total Protein 7.8 g/dL (6.3-8.2) 01/28/22 16:32 Albumin 3.9 g/dL (3.9-5) 01/28/22 16:32 Albumin/Globulin Ratio 1.0 % 01/28/22 16:32 Lipase 12 units/L (13-60) L 01/28/22 16:32 Urine Color Yellow (Yellow) 01/28/22 17:02 Urine Turbidity Clear (Clear) 01/28/22 17:02 Specific [place] (Man) 1.010 (1.003-1.030) 01/28/22 17:02 Ur Protein (Man) 1+ mg/dL (Negative) 01/28/22 17:02 Ur Ketones (Man) Negative (Negative) 01/28/22 17:02 Ur Nitrite (Man) Positive (Negative) 01/28/22 17:02 Urine Bilirubin (Man) Negative (Negative) 01/28/22 17:02 Leukocyte Esterase (Man) Negative (Negative) 01/28/22 17:02 Urine WBC (Auto) 4.0 /HPF (0.0-6.0) 01/28/22 17:02 Urine RBC (Auto) 1.0 /HPF (0.0-6.0) 01/28/22 17:02 Urine RBC (Manual) 1+ (Negative) 01/28/22 17:02 Urine Mucus Few /HPF 01/28/22 17:02 Urine Opiates Screen Presumptive negative 01/28/22 17:02 Urine Methadone Screen Presumptive negative 01/28/22 17:02 Ur Barbiturates Screen Presumptive negative 01/28/22 17:02 Ur Phencyclidine Scrn Presumptive negative 01/28/22 17:02 Ur Amphetamines Screen Presumptive negative 01/28/22 17:02 U Benzodiazepines Scrn Presumptive negative 01/28/22 17:02 Urine Cocaine Screen Presumptive negative 01/28/22 17:02 U Marijuana (THC) Screen Presumptive negative 01/28/22 17:02 Drugs of Abuse Note Disclamer 01/28/22 17:02 Coronavirus (PCR) Negative (Negative) 02/02/22 Unknown Fabian/IV: Voiding Method External Female Catheter Active Medications - Current Medications Current Medications: Generic Name Dose Route Start Last Admin Trade Name Freq PRN Reason Stop Dose Admin Acetaminophen 650 mg 01/28/22 23:53 01/31/22 09:34 Acetaminophen 325 Mg Tab PO 650 mg Q4H PRN Administration Pain MILD(1-3)/Fever >100.5/ALAS Albuterol 2.5 mg 02/01/22 15:00 02/01/22 14:43 Albuterol 2.5 Mg/3 Ml Nebu IH 2.5 mg Q4HRT PRN Administration Shortness Of Breath Alprazolam 0.5 mg 01/31/22 14:31 02/04/22 14:33 Alprazolam 0.5 Mg Tab PO 0.5 mg Q8H PRN Administration Anxiety Arformoterol Tartrate 15 mcg 01/29/22 20:00 02/04/22 20:06 Arformoterol 15 Mcg/2 Ml Nebu IH 15 mcg Q12HRT ANN MARIE Administration Aspirin 81 mg 01/29/22 10:00 02/04/22 09:35 Aspirin Ec 81 Mg Tab PO 81 mg QDAY ANN MARIE Administration Atorvastatin Calcium 40 mg 01/29/22 22:00 02/04/22 22:15 Atorvastatin 40 Mg Tab PO 40 mg QHS ANN MARIE Administration Budesonide 0.5 mg 01/29/22 20:00 02/04/22 20:06 Budesonide 0.5 Mg/2 Ml Nebu IH 0.5 mg Q12HRT ANN MARIE Administration Citalopram Hydrobromide 20 mg 01/29/22 10:00 02/04/22 09:35 Citalopram 20 Mg Tab PO 20 mg QDAY ANN MARIE Administration Clonidine HCl 0.2 mg 02/01/22 12:00 02/04/22 22:14 Clonidine 0.1 Mg Tab PO 0.2 mg Q12HR ANN MARIE Administration Clopidogrel Bisulfate 75 mg 01/29/22 10:00 02/04/22 09:35 Clopidogrel 75 Mg Tab PO 75 mg QDAY ANN MARIE Administration Dextrose 0 ml 01/28/22 23:53 Dextrose 50% In Water (25gm) 50 Ml Syringe IV Q30MIN PRN Hypoglycemia Protocol Famotidine 20 mg 01/29/22 10:00 02/04/22 09:36 Famotidine 20 Mg Tab PO 20 mg DAILY ANN MARIE Administration Furosemide 40 mg 01/29/22 06:00 02/05/22 05:56 Furosemide 40 Mg/4 Ml Inj IV 40 mg BID@0600,1800 ANN MARIE Administration Hydralazine HCl 100 mg 01/29/22 14:00 02/05/22 05:56 Hydralazine 100 Mg Tab PO 100 mg Q8HR ANN MARIE Administration Hydromorphone HCl 0.25 mg 02/02/22 15:25 02/04/22 22:21 Hydromorphone 0.5 Mg/0.5 Ml Inj IV 0.25 mg Q6H PRN Administration Pain, Moderate (4-6) Insulin Human Lispro 0 unit 01/29/22 07:30 02/05/22 08:24 Insulin Lispro 100 Unit/Ml SUB-Q Not Given ACHS [facility] Protocol Ipratropium Lily 0.5 mg 02/05/22 08:00 Ipratropium 0.02% Nebu 2.5 Ml IH TIDRT ANN MARIE Isosorbide Mononitrate 60 mg 01/29/22 10:00 02/04/22 09:35 Isosorbide Mononitrate Er 60 Mg Tab PO 60 mg QDAY ANN MARIE Administration Magnesium Hydroxide 30 ml 01/28/22 23:53 Magnesium Hydroxide (Mom) Oral Liqd Udc PO Q4H PRN Constipation Metoprolol Tartrate 100 mg 01/31/22 22:00 02/04/22 22:15 Metoprolol Tartrate 50 Mg Tab PO 100 mg BID ANN MARIE Administration Montelukast Sodium 10 mg 01/29/22 22:00 02/04/22 22:15 Montelukast 10 Mg Tab PO 10 mg QHS ANN MARIE Administration Multivitamins/Minerals 1 each 01/29/22 10:00 02/04/22 09:35 Multivitamins,Ther W-Minerals Tab PO 1 each QDAY ANN MARIE Administration Nifedipine 90 mg 01/30/22 10:00 02/04/22 09:35 Nifedipine Xl 90 Mg Tab PO 90 mg QDAY [facility] Administration Ondansetron HCl 4 mg 01/28/22 23:53 01/29/22 15:28 Ondansetron 4 Mg/2 Ml Inj IV 4 mg Q8H PRN Administration Nausea And Vomiting Sodium Chloride 10 ml 01/29/22 10:00 02/04/22 22:16 Sodium Chloride 0.9% 10 Ml Flush Syringe IV 10 ml BID ANN MARIE Administration Sodium Chloride 10 ml 01/28/22 23:53 01/31/22 06:13 Sodium Chloride 0.9% 10 Ml Flush Syringe IV 10 ml PRN PRN Administration LINE FLUSH Valsartan 160 mg 01/29/22 11:00 02/04/22 22:15 Valsartan 160mg Tab PO 160 mg BID ANN MARIE Administration Nutrition/Malnutrition Assess - Dietary Evaluation Nutrition/Malnutrition Findings: Nutrition Notes Start: 01/29/22 13:57 Freq: Status: Active Protocol: Document 01/29/22 13:57 FREDERICK (Rec: 01/29/22 14:08 FREDERICK [email or web address]) Nutrition Notes Need for Assessment generated from: MD Order,Education Initial or Follow up Brief Note Current Diagnosis COPD,Coronary Artery Disease, Hypertension Other Pertinent Diagnosis CHF, DVT, PE, Cardiomyopathy. Current Diet Cardiac/Consistent Carbohydrates Diet (since B ). 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 Weight Status Morbidly Obese Subjective/Other Information RD consult for nutrition education assessment. No reports available on Pt's PO intake of meals at the time , will assess at F/U. Pt is on Nasal Cannula, O2 saturation @ 94%, according to Physical Assessment History notes. Pt has caries and missing teeth, according to Physical Assessment History notes. Pt presents Bilateral-LE Pitting Edema 2+, according to Physical Assessment History notes. Pt still in critical condition , not a candidate for Nutrition Education at the time, will assess feasibility on F/U. Percent of energy/protein needs met: Prescribed Cardiac/Consistent Carbohydrates Diet provides for energy/protein needs (1, 977 Kcal/86 g) during LOS. Nutrition Intervention Follow-Up By: 02/05/22 Additional Comments Nutrition education will be provided at F/U, if feasible. Continue monitoring food tolerance, %PO intake of meals , and BM.
[2022-02-05] MEDS: IPRATROPIUM 0.02% NEBU 2.5 ML IH SCH ×3 (08:47→20:20)
[2022-02-05] MEDS: BUDESONIDE 0.5 MG/2 ML NEBU IH SCH ×2 (08:47→20:20)
[2022-02-05] MEDS: ARFORMOTEROL 15 MCG/2 ML NEBU IH SCH ×2 (08:47→20:20)
[2022-02-05] MEDS: VALSARTAN 160MG TAB PO SCH ×2 (09:30→22:57)
[2022-02-05] MEDS: CITALOPRAM 20 MG TAB PO SCH (09:30)
[2022-02-05] MEDS: cloNIDine 0.1 MG TAB PO SCH ×2 (09:30→22:58)
[2022-02-05] MEDS: NIFEdipine XL 90 MG TAB PO SCH (09:30)
[2022-02-05] MEDS: ASPIRIN EC 81 MG TAB PO SCH (09:30)
[2022-02-05] MEDS: METOPROLOL TARTRATE 50 MG TAB PO SCH ×2 (09:30→22:58)
[2022-02-05] MEDS: CLOPIDOGREL 75 MG TAB PO SCH (09:30)
[2022-02-05] MEDS: FAMOTIDINE 20 MG TAB PO SCH (09:31)
[2022-02-05] MEDS: MULTIVITAMINS,THER W-MINERALS TAB PO SCH (09:31)
[2022-02-05] MEDS: HYDROmorphone 0.5 MG/0.5 ML INJ IV PRN ×2 (10:20→17:40)
--- NOTE | 2022-02-05 11:39 | Progress Note ---
Assessment and Plan 61-year-old -[place] female with known history of COPD, CHF, coronary artery disease with stent placement in the past, presenting the emergency room today via EMS for evaluation of shortness of breath. Upon arrival of EMS patient was said to be tachypneic and was not on any oxygen. She was tripoding and using accessory muscles of respiration. Initial oxygen saturation was 92% on room air. Patient indicates that she has not followed up with any primary care physician lately and she has not been quite compliant with her medications since primary care physician secondary to COVID. Patient denies any fever or chills, denies any chest pain, no headache or dizziness and no diaphoresis. She indicates that she fell at home and was on the floor for quite some time before getting help to get up from the floor. She denies any head injury, denies any loss of consciousness. Review of patient's records shows: Echo 01/08/2022-EF 50-55%. Mild concentric LVH. Right ventricle mildly dilated. Right ventricle systolic function is grossly normal. Extremities dilated. Moderate to severe tricuspid regurgitation. Echo 09/15/2020-LVEF is 50 to 55%. LV SF is normal. Moderate LVH. RV SF is normal. Moderate pulmonary hypertension cannot be excluded due to poor regurgitant envelope [facility] 06/20/2018 successful PCI with intravascular ultrasound of the ramus with DIANELYS which was 100% culprit vessel with DIANELYS. Left main patent, LAD patent. RCA moderate to severe tortuosity with mid stent patent, circumflex patent, ARIELA 50% with sintia 100% with successful PCI. Acute diastolic dysfunction Echo 03/25/2021 EF 50 to 55%, moderate concentric left ventricular hypertrophy. Right ventricle mildly dilated, right ventricle hypokinetic. Left atrium moderately dilated right atrium mildly dilated. Mild to moderate tricuspid reg urgitation. Moderate pulmonary hypertension. Past Medical History: arthritis, CAD, COPD, diabetes, DVT, hypertension, pulmonary embolism, other (History of gout) Past Surgical History: appendectomy, cholecystectomy, hysterectomy, PTCA, Other (Tonsillectomy) Patient has history of smoking 50 years x 1/1/2 pack for week. Denies alcohol or drug abuse. Not and has three children. Allergic to penicillin. Upon arrival in the emergency room, blood pressure was quite elevated with systolic in the 200s and diastolic in the low 100s. Patient did not respond well to IV hydralazine and metoprolol and was subsequently placed on Cardene drip. Work-up in the emergency room reveals elevated BNP of 11,363. Chest x-ray shows CHF exacerbation. Less severe when compared to prior. Patient being admitted for malignant hypertensive urgency and CHF exacerbation. Patient Morbidly Obese. awake ,on nasal canula 3 litres O2, and O2 saturation running 98%. No acute respiratory distress at rest. Patient sitting up in chair. Patient afebrile. Has no leukocytosis. Blood pressure 160/84, Pulse 80 , Respirations 20. Chest xray done 01/28/22 reported CHF exacerbation, less severe when compared to prior. Doppler study of right lower extremity done 01/29/22 reported No sonographic evidence for DVT in the right lower extremity. Patient is on Brovanna/Budesonide aerosol treatments q 12 hours, Albuterol inhaler, Famotidine. Recommend DVT prophylaxis. Albuterol/atrovent aerosol treatments prn for shortness of breath. - Patient Problems (1) Acute on chronic systolic (congestive) heart failure Current Visit: Yes Status: Acute Plan to address problem: Patient is on I/V Lasix. Management as per cardiology. (2) COPD exacerbation Current Visit: Yes Status: Acute Plan to address problem: O2 3 litres via nasal canula. Brovanna/Budesonide aerosol treatments q 12hours. Albuterol/atrovent aerosol treatments q 6 hours prn for shortness of breath. Continue famotidine. Recommend DVT prophylaxis. PFTs as out patient. (3) Acute respiratory failure with hypoxia Current Visit: No Status: Acute Plan to address problem: O2 3 litres via nasal canula. Brovanna/Budesonide aerosol treatments q 12hours. Albuterol/atrovent aerosol treatments q 6 hours prn for shortness of breath. Continue famotidine. Recommend DVT prophylaxis (4) Hypertensive emergency Current Visit: Yes Status: Acute Plan to address problem: Patient is on nifedipine, Clonidine, Hydralazine, Metaprolol. Management as per primary care and cardiology. (5) Morbid obesity with body mass index of 40.0-49.9 Current Visit: No Status: Acute Plan to address problem: Recommend to loose weight. (6) Nicotine dependence Current Visit: No Status: Acute Qualifiers: Substance use status: in withdrawal Plan to address problem: Counseled to stop smoking. (7) Obesity hypoventilation syndrome Current Visit: No Status: Acute Plan to address problem: ABGs on room air during day time. Recommend to loose weight. BIPAP during night time, PRN for sleepiness or shortness of breath during day time. (8) ADAN (obstructive sleep apnea) Current Visit: No Status: Chronic Plan to address problem: BIPAP during night time. (9) Diabetes mellitus, type 2 Current Visit: Yes Status: Chronic Plan to address problem: Management as per primary care. (10) Pulmonary hypertension Current Visit: No Status: Chronic Plan to address problem: Echocardiogram 03/25/21 reported moderate pulmonary hypertension. Subjective Date of service: 02/05/22 Principal diagnosis: HTNsive urgency; AE-CHF; AE-COPD; Ac on ch hypoxemic resp failure; Obesity Interval history: 61-year-old -[place] female with known history of COPD, CHF, coronary artery disease with stent placement in the past, presenting the emergency room today via EMS for evaluation of shortness of breath. Upon arrival of EMS patient was said to be tachypneic and was not on any oxygen. She was tripoding and using accessory muscles of respiration. Initial oxygen saturation was 92% on room air. Patient indicates that she has not followed up with any primary care physician lately and she has not been quite compliant with her medications since primary care physician secondary to COVID. Patient denies any fever or chills, denies any chest pain, no headache or dizziness and no diaphoresis. She indicates that she fell at home and was on the floor for quite some time before getting help to get up from the floor. She denies any head injury, denies any loss of consciousness. Review of patient's records shows: Echo 01/08/2022-EF 50-55%. Mild concentric LVH. Right ventricle mildly dilated. Right ventricle systolic function is grossly normal. Extremities dilated. Moderate to severe tricuspid regurgitation. Echo 09/15/2020-LVEF is 50 to 55%. LV SF is normal. Moderate LVH. RV SF is normal. Moderate pulmonary hypertension cannot be excluded due to poor regurgitant envelope [facility] 06/20/2018 successful PCI with intravascular ultrasound of the ramus with DIANELYS which was 100% culprit vessel with DIANELYS. Left main patent, LAD patent. RCA moderate to severe tortuosity with mid stent patent, circumflex patent, ARIELA 50% with sintia 100% with successful PCI. Acute diastolic dysfunction Echo 03/25/2021 EF 50 to 55%, moderate concentric left ventricular hypertrophy. Right ventricle mildly dilated, right ventricle hypokinetic. Left atrium moderately dilated right atrium mildly dilated. Mild to moderate tricuspid regurgitation. Moderate pulmonary hypertension. Past Medical History: arthritis, CAD, COPD, diabetes, DVT, hypertension, pulmonary embolism, other (History of gout) Past Surgical History: appendectomy, cholecystectomy, hysterectomy, PTCA, Other (Tonsillectomy) Patient has history of smoking 50 years x 1/1/2 pack for week. Denies alcohol or drug abuse. Not and has three children. Allergic to penicillin. Upon arrival in the emergency room, blood pressure was quite elevated with systolic in the 200s and diastolic in the low 100s. Patient did not respond well to IV hydralazine and metoprolol and was subsequently placed on Cardene drip. Work-up in the emergency room reveals elevated BNP of 11,363. Chest x-ray shows CHF exacerbation. Less severe when compared to prior. Patient being admitted for malignant hypertensive urgency and CHF exacerbation. Patient Morbidly Obese. awake ,on nasal canula 3 litres O2, and O2 saturation running 98%. No acute respiratory distress at rest. Patient sitting up in chair. Patient afebrile. Has no leukocytosis. Blood pressure 160/84, Pulse 80 , Respirations 20. Chest xray done 01/28/22 reported CHF exacerbation, less severe when compared to prior. Doppler study of right lower extremity done 01/29/22 reported No sonographic evidence for DVT in the right lower extremity. Patient is on Brovanna/Budesonide aerosol treatments q 12 hours, Albuterol inhaler, Famotidine. Recommend DVT prophylaxis. Albuterol/atrovent aerosol treatments prn for shortness of breath. Objective Vital Signs - 12hr 02/04/22 02/05/22 02/05/22 23:38 04:15 08:08 Temperature 98.4 F 98.6 F 98.3 F Pulse Rate 78 83 73 Respiratory 20 16 18 Rate Blood Pressure 167/80 164/89 170/91 O2 Sat by Pulse 93 92 94 Oximetry 02/05/22 08:46 Temperature Pulse Rate Respiratory Rate Blood Pressure O2 Sat by Pulse 97 Oximetry Constitutional: no acute distress, alert Eyes: non-icteric ENT: oropharynx moist Neck: supple, no lymphadenopathy, no JVD, other (large circumference) Effort: normal Ascultation: Bilateral: diminished breath sounds Percussion: Bilateral: not dull Cardiovascular: regular rate and rhythm, other (S1,S2) Gastrointestinal: normoactive bowel sounds, soft, non-tender, non-distended (protuberant) Integumentary: normal Extremities: no cyanosis, no edema, pulses normal, no ischemia or petechiae Neurologic: normal mental status, non-focal exam, pupils equal and round, CN II- XII normal, motor strength normal and Psychiatric: mood appropriate, affect normal CBC and BMP: 01/28/22 16:32 02/04/22 07:12 ABG, PT/INR, D-dimer: PT/INR, D-dimer PT 15.3 Sec. (12.2-14.9) H 01/28/22 16:32 INR 1.09 (0.87-1.13) 01/28/22 16:32 Abnormal lab findings: Abnormal Labs 01/28/22 01/28/22 01/28/22 16:32 16:32 16:32 RBC 5.13 H MCV 69 L MCH 21 L RDW 25.0 H Seg Neuts % (Manual) 88.0 H Lymphocytes % (Manual) 6.0 L Lymphocytes # (Manual) 0.3 L PT 15.3 H Chloride Carbon Dioxide BUN Glucose POC Glucose ALT 6 L Alkaline Phosphatase 221 H CK-MB (CK-2) Rel Index NT-Pro-B Natriuret Pep Lipase 12 L 01/28/22 01/28/22 01/29/22 16:32 16:32 04:07 RBC MCV MCH RDW Seg Neuts % (Manual) Lymphocytes % (Manual) Lymphocytes # (Manual) PT Chloride Carbon Dioxide BUN Glucose 210 H POC Glucose ALT Alkaline Phosphatase CK-MB (CK-2) Rel Index 8.2 H NT-Pro-B Natriuret Pep 59942 H Lipase 01/29/22 01/29/22 01/29/22 07:31 11:08 16:05 RBC MCV MCH RDW Seg Neuts % (Manual) Lymphocytes % (Manual) Lymphocytes # (Manual) PT Chloride Carbon Dioxide BUN Glucose POC Glucose 164 H 162 H 133 H ALT Alkaline Phosphatase CK-MB (CK-2) Rel Index NT-Pro-B Natriuret Pep Lipase 01/29/22 01/30/22 01/30/22 21:53 07:39 10:21 RBC MCV MCH RDW Seg Neuts % (Manual) Lymphocytes % (Manual) Lymphocytes # (Manual) PT Chloride Carbon Dioxide 31 H BUN 23 H Glucose 108 H POC Glucose 166 H 133 H ALT Alkaline Phosphatase CK-MB (CK-2) Rel Index NT-Pro-B Natriuret Pep Lipase 01/30/22 01/30/22 01/31/22 11:20 22:25 05:32 RBC MCV MCH RDW Seg Neuts % (Manual) Lymphocytes % (Manual) Lymphocytes # (Manual) PT Chloride Carbon Dioxide 31 H BUN 22 H Glucose POC Glucose 110 H 115 H ALT Alkaline Phosphatase CK-MB (CK-2) Rel Index NT-Pro-B Natriuret Pep Lipase 01/31/22 01/31/22 01/31/22 08:27 11:26 15:27 RBC MCV MCH RDW Seg Neuts % (Manual) Lymphocytes % (Manual) Lymphocytes # (Manual) PT Chloride Carbon Dioxide BUN Glucose POC Glucose 119 H 112 H 110 H ALT Alkaline Phosphatase CK-MB (CK-2) Rel Index NT-Pro-B Natriuret Pep Lipase 01/31/22 02/01/22 02/01/22 20:45 04:23 07:43 RBC MCV MCH RDW Seg Neuts % (Manual) Lymphocytes % (Manual) Lymphocytes # (Manual) PT Chloride 97.2 L Carbon Dioxide BUN 18 H Glucose 106 H POC Glucose 112 H 130 H ALT Alkaline Phosphatase CK-MB (CK-2) Rel Index NT-Pro-B Natriuret Pep Lipase 02/01/22 02/01/22 02/02/22 15:20 20:39 07:21 RBC MCV MCH RDW Seg Neuts % (Manual) Lymphocytes % (Manual) Lymphocytes # (Manual) PT Chloride Carbon Dioxide BUN Glucose POC Glucose 146 H 151 H 111 H ALT Alkaline Phosphatase CK-MB (CK-2) Rel Index NT-Pro-B Natriuret Pep Lipase 02/02/22 02/02/22 02/03/22 11:03 15:08 07:11 RBC MCV MCH RDW Seg Neuts % (Manual) Lymphocytes % (Manual) Lymphocytes # (Manual) PT Chloride 96.9 L Carbon Dioxide BUN Glucose 102 H POC Glucose 124 H 120 H ALT Alkaline Phosphatase CK-MB (CK-2) Rel Index NT-Pro-B Natriuret Pep Lipase 02/03/22 02/04/22 02/04/22 20:04 07:12 21:03 RBC MCV MCH RDW Seg Neuts % (Manual) Lymphocytes % (Manual) Lymphocytes # (Manual) PT Chloride Carbon Dioxide 31 H BUN Glucose 111 H POC Glucose 130 H 164 H ALT Alkaline Phosphatase CK-MB (CK-2) Rel Index NT-Pro-B Natriuret Pep Lipase Allied health notes reviewed: nursing
--- NOTE | 2022-02-05 13:16 | Progress Note ---
Assessment and Plan This patient is a 61 y/o female with a PMHX of CAD s/p PCI in 2019 on DAPT, DM, HFpEF(EF50-55%), HTN, COPD on home 02, medical noncompliance who presented to ED with a complaint that she fell at home. S/p fall hypertensive urgency Acute on chronic HFpEF Acute on chronic hypoxic respiratory failure- Currently on NC COPD- on home O2 HTN CAD s/p PCI 2018 DM Obesity Medical noncompliance Echo 01/08/2022-EF 50-55%. Mild concentric LVH. Right ventricle mildly dilated. Right ventricle systolic function is grossly normal. Extremities dilated. Moderate to severe tricuspid regurgitation. C 06/20/2018 successful PCI with intravascular ultrasound of the ramus with DIANELYS which was 100% culprit vessel with DIANELYS. Left main patent, LAD patent. RCA mmoderate to severe tortuosity with mid stent patent, circumflex pateent, ARIELA 50% with sintia 100% with successful PCI. Acute diastolic dysfunction Medications on Previous admissions: Metoprolol 50 mg p.o. twice daily, valsartan 160 mg p.o. twice daily, nifedipine 30 mg p.o. daily, hydralazine 100 mg p.o. 3 times daily, clonidine 0.2 mg p.o. twice daily, Imdur 60 mg p.o. daily Plan: Continue Imdur 60mg QD valsartan 160mg PO BID and hydralazine 100mg PO TID, nifedipine 90 mg p.o. daily,metorpolol 100mg PO BID, clonidine 0.2mg PO BID Continue DAPT with aspirin and Plavix Patient appears near euvolemic on exam we will transition to Lasix p.o. Strict I& O's, daily weights, and repeat BMP in the a.m. with close monitoring of renal function Discussed plan of care with patient who verbalized understanding and agreement Patient awaiting rehab placement. Cardiac status otherwise stable. We will see as needed Patient seen in conjunction with Dr. Brian who agrees with this plan of care. - Patient Problems (1) COPD exacerbation Current Visit: Yes Status: Acute (2) Hypertensive emergency Current Visit: Yes Status: Acute (3) Medical non-compliance Current Visit: Yes Status: Chronic (4) Acute and chronic respiratory failure Current Visit: No Status: Acute Qualifiers: Respiratory failure complication: hypoxia Qualified Code(s): J96.21 - Acute and chronic respiratory failure with hypoxia (5) Acute on chronic diastolic heart failure Current Visit: No Status: Acute (6) Cardiomyopathy Current Visit: No Status: Acute (7) Morbid obesity with body mass index of 40.0-49.9 Current Visit: No Status: Acute (8) Obesity hypoventilation syndrome Current Visit: No Status: Acute (9) CAD (coronary artery disease) Current Visit: No Status: Chronic Qualifiers: Coronary Disease-Associated Artery/Lesion type: [place] artery [place] vs. transplanted heart: [place] heart Associated angina: without angina Qualified Code(s): I25.10 - Atherosclerotic heart disease of [place] coronary artery without angina pectoris (10) Diabetes mellitus, type 2 Current Visit: Yes Status: Chronic (11) Hyperlipidemia Current Visit: No Status: Chronic Qualifiers: Hyperlipidemia type: mixed hyperlipidemia Qualified Code(s): E78.2 - Mixed hyperlipidemia (12) ADAN (obstructive sleep apnea) Current Visit: No Status: Chronic Subjective Date of service: 02/05/22 Principal diagnosis: HTNsive urgency; AE-CHF; AE-COPD; Ac on ch hypoxemic resp failure; Obesity Interval history: Patient resting in bed in no acute distress Sinus 80s on monitor with no events on monitor Objective Vital Signs Temp Pulse Pulse Resp Resp BP Pulse Ox 02/05/22 08:46 97 02/05/22 08:08 98.3 F 73 18 170/91 94 02/05/22 04:15 98.6 F 83 16 164/89 92 02/04/22 23:38 98.4 F 78 20 167/80 93 02/04/22 21:40 99 02/04/22 20:55 97 02/04/22 20:53 78 02/04/22 20:14 97.2 F L 70 20 185/98 90 02/04/22 20:08 100 02/04/22 20:07 76 18 02/04/22 15:05 94 02/04/22 15:04 98.3 F 78 18 147/78 87 - Physical Examination General: No Apparent Distress HEENT: Positive: EOMI, Normocephaly Neck: Positive: trachea midline. Negative: JVD/HJR Cardiac: Positive: Reg Rate and Rhythm Lungs: Positive: Decreased Breath Sounds Neuro: Positive: Grossly Intact Abdomen: Positive: Soft Skin: Negative: Rash Musculoskeletal: No Pain Extremities: Present: edema, warm - Imaging and Cardiology EKG: report reviewed, image reviewed Echo: report reviewed (01/08/2022 - LVEF 50-55%, moderate LVH, RV mildly dilated, RVSF grossly normal, moderate-severe TR, RVSP 53mmHg, no pericardial effusion.), other (03/25/2021 - EF 50 to 55%, moderate concentric left ventricular hypertrophy. Right ventricle mildly dilated, right ventricle hypokinetic. Left atrium moderately dilated, right atrium mildly dilated. Mild to moderate tricuspid regurgitation. Moderate pulmonary hypertension.) Cardiac cath: report reviewed (06/20/2018 - successful PCI with intravascular ultrasound of the ramus with DIANELYS which was 100% culprit vessel. Left main patent, LAD patent. RCA mmoderate to severe tortuosity with mid stent patent, Circumflex patent, OM1 50% with ramus 100% with successful PCI.) - Telemetry EKG Rhythm: Sinus Rhythm - EKG Sinus rhythms and dysrhythmias: sinus rhythm Chamber hypertrophy or enlargement: right atrial enlargment Repolarization changes or abnormalities: Q-T interval prolongation - Allied health notes Allied health notes reviewed: nursing
[2022-02-05] MEDS: ALPRAZolam 0.5 MG TAB PO PRN (18:15)
[2022-02-05] MEDS: MONTELUKAST 10 MG TAB PO SCH (22:57)
[2022-02-06] MEDS: HYDROmorphone 0.5 MG/0.5 ML INJ IV PRN ×3 (00:20→14:57)
[2022-02-06] MEDS: hydrALAZINE 100 MG TAB PO SCH ×2 (06:52→14:57)
--- NOTE | 2022-02-06 08:03 | Discharge Summary ---
Providers - Providers Date of Admission: 01/28/22 23:54 Date of discharge: 02/06/22 Attending physician: NORA RIVREA MD 01/28/22 23:53 Consult to Physician [CONS] Routine Comment: Consulting Provider: SINA HYATT Physician Instructions: Reason For Exam: CHF Exacerbation 01/28/22 23:54 Consult to Dietitian/Nutrition [CONS] Routine Physician Instructions: Reason For Exam: Reason for Consult: Diet education 01/29/22 08:31 Consult to Physician [CONS] Routine Comment: Consulting Provider: TAMY HERNANDEZ Physician Instructions: Reason For Exam: hypertensive urgency 01/29/22 10:45 Physical Therapy Evaluation and Treat [CONS] Routine Comment: Reason For Exam: weakness 01/29/22 11:03 Occupational Therapy Evaluate and Treat [CONS] Routine Comment: Reason For Exam: debility 02/01/22 08:08 Consult to Case Management [CONS] Routine Services Needed at Discharge: Home O2 Notified:: CASE MANAGEMENT 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 Upon EMS arrival patient was tachypneic, not on any oxygen tripod positioned and using accessory muscles for respirations and SPO2 was 92% on room air. Patient also noted that she fell at home and was on the floor for quite some time before getting help to get up from the floor. Upon arrival to the emergency department patient's blood pressure was in the 200s over 100s and she did not respond to IV hydralazine and metoprolol and was placed on a Cardene drip and CXR showed CSF exacerbation. Patient was admitted to the hospitalist service with consult to cardiology with malignant hypertensive urgency and CHF exacerbation. Hospital course to date: 01/29: Patient has been weaned off of Cardene drip and will be started on p.o. metoprolol, hydralazine, Imdur and valsartan. PT/OT consulted. We will obtain right lower extremity ultrasound for swelling to rule out DVT. Patient will transfer to telemetry. 01/30: Swelling improved in lower extremity. LE US negative for DVT. Dispo: [facility] per PT notes. D/w CM who have initiated work on referral/auth process. 01/31: significant urine OP. good response to diuresis. Improvement seen on exam, decresae in LE edema. Ordered BMP for tomorrow AM. Xanax prn anxiety and percocet prn mod pain as patient complaining of chest wall pain and anxiety associated with hospitalization . Pending placement to [facility]. 02/01: Awaiting placement to [facility]. Currently requiring 4L NC satting 94%. Wean as sats tolerate > 90%. D/c percocet as patient has inadequate pain control. Started on dilaudid po. Blood pressure high, patient was refusing last night's meds. Educated on needs for meds on continuous basis today. Patient agreed to taking meds, f/u bp in afternoon 150's sbp. Still awaiting placement to [facility]. 02/02: Awaiting placement to [facility]. 02/03: Patient continues to diurese appropriately. We did have a conversation about weight management she verbalized understanding. She is waiting for subacute rehab placement due to recurrent falls. Will monitor electrolytes considering diuresis. She continues with oxygen but I believe she does have morbid obesity hypoventilation syndrome and have discussed reinstating her BiPAP/CPAP for all hours of sleep while in the hospital. I also emphasized the importance of quitting tobacco use she verbalized understanding. 15 minutes counseling provided and also another 15 minutes on preventive care. 02/04: Patient continues to show remarkable improvement renal function is intact. Good urine output. Cardiology plans to switch IV Lasix to p.o. this morning in preparation for discharge. Continues on 3 L of oxygen. Will need to be discharged on home O2. Weight loss counseling emphasized again. 02/05: D/w cardiology regarding HF medications. Patient optimized. Will need to adhere to medication regimen which has been communicated to her. Pending placement. Awaiting authorization. coronavirus test ordered this AM. Likely placement to [facility]. 02/06: Patient medically clear for discharge. Medication on discharge: Atorvastatin, montelukast, hydralazine, valsartan, aspirin, Imdur, furosemide, Lopressor, Plavix, Procardia. She is advised to follow-up outpatient with ca rdiology and a primary care physician. [facility] Assessment and Plan: Neuro: Noncompliance, anxiety -Reorientation as needed -Maintain sleep-wake cycle -As needed analgesia -Medical compliance strongly encouraged -Continue home Celexa - xanax prn anxiety Cardiac: Hypertensive urgency, acute on chronic diastolic heart failure, CAD s/p stent (06/2018) -Cardiology consulted, appreciate recommendations -Blood pressure monitoring per protocol -S/p Cardene drip -P.o. hydralazine, metoprolol, Imdur, valsartan -Admit proBNP 11,363 -Lasix 40 mg twice daily -Plavix, aspirin, Lipitor -01/09/2020 echocardiogram shows EF of 50 to 55% -Of note: Echo 09/15/2020-LVEF is 50 to 55%. LV SF is normal. Moderate LVH. RV SF is normal. Moderate pulmonary hypertension cannot be excluded due to poor regurgitant envelope [facility] 06/20/2018 successful PCI with intravascular ultrasound of the ramus with DIANELYS which was 100% culprit vessel with DIANELYS. Left main patent, LAD patent. RCA mmoderate to severe tortuosity with mid stent patent, circumflex pateent, ARIELA 50% with sintia 100% with successful PCI. Acute diastolic dysfunction Echo 03/25/2021 EF 50 to 55%, moderate concentric left ventricular hypertrophy. Right ventricle mildly dilated, right ventricle hypokinetic. Left atrium moderately dilated right atrium mildly dilated. Mild to moderate tricuspid regurgitation. Moderate pulmonary hypertension. Respiratory: Acute on chronic hypoxic respiratory failure (chronic 2 L nasal cannula at home), current nicotine abuse, obstructive sleep apnea -Initially presented with shortness of breath -CCM consulted, appreciate recommendations -Continue nasal cannula -SPO2 monitor per protocol -Supplemental oxygen as needed -Pulmonary hygiene -Continue Brovana, Singulair, Pulmicort -Tobacco cessation counseling provided GI: Morbid obesity -24 hours +38 mL -PPI -cc cardiac diet : NAD -Monitor intake and output -Renally dose medications -Avoid nephrotoxic medications ID: NAD -f/u blood culture -Monitor WBC and temperature curve Endo: Hyperglycemia -Avoid hypoglycemia -SSI -Accu-Cheks ACHS -hbg a1c pending Heme: r/o DVT, h/o PE -Left lower extremity Doppler ultrasound pending swelling -Trend CBC -Transfuse hemoglobin less than 7 -SCDs to BLE while in bed #Advance care planning Disease education conducted, care plan discussed, diagnoses discussed, prognosis discussed, patient is full code, patient acknowledges understanding and agree with care plan, +30 minutes. Disposition: [facility] Final Discharge Diagnosis (Prints w/discharge instructions): Acute on chronic diastolic heart failure Time spent for discharge: 35 Core Measure Documentation - Palliative Care Palliative Care/ Comfort Measures: Not Applicable - Core Measures Any of the following diagnoses?: heart failure - Heart Failure Discharge Requirements LETTY/ARB for LVSD if EF <40%: Yes Beta vamsi at discharge: Yes Exam - Physical Exam Narrative exam: General appearance: Present: no acute distress, obese - EENT Eyes: Present: PERRL, EOM intact ENT: hearing intact, clear oral mucosa, dentition normal - Neck Neck: Present: normal ROM - Respiratory Respiratory effort: normal Respiratory: bilateral: CTA, diminished - Cardiovascular Rhythm: regular Heart Sounds: Present: S1 & S2. Absent: systolic murmur, diastolic murmur - Extremities Extremities: no ischemia, pulses intact, pulses symmetrical Extremity abnormal: edema Peripheral Pulses: within normal limits - Abdominal General gastrointestinal: soft, non-tender, non-distended, normal bowel sounds - Integumentary Integumentary: Present: warm, dry - Psychiatric Psychiatric: cooperative - Neurologic Neurologic: CNII-XII intact, no focal deficits, moves all extremities - Allied Health Allied health notes reviewed: nursing, RT, social work - Constitutional Vitals: Temp Pulse Resp BP Pulse Ox 97.5 F L 70 16 176/84 96 02/05/22 23:53 02/05/22 23:53 02/05/22 23:53 02/05/22 23:53 02/05/22 23:53 Plan Follow up with: PRIMARY CARE, [Primary Care Provider] - 3-5 Days Prescriptions: AtorvaSTATin [Lipitor] 40 mg PO QHS 30 Days #30 tablet Montelukast [Singulair] 10 mg PO QHS 30 Days #30 tablet hydrALAZINE [Apresoline TAB] 100 mg PO Q8HR 30 Days #90 tab Valsartan [Diovan] 160 mg PO BID 30 Days #60 tablet Aspirin EC [Halfprin EC] 81 mg PO QDAY 30 Days #30 tablet ISOSORBIDE MONOnitrate [Imdur ER] 60 mg PO QDAY 30 Days #30 tablet Furosemide [Lasix TAB] 40 mg PO QDAY 30 Days #30 tablet Metoprolol [Lopressor TAB] 50 mg PO BID 30 Days #60 tablet Clopidogrel [Plavix] 75 mg PO QDAY 30 Days #30 tablet NIFEdipine XL [Procardia Xl] 90 mg PO QDAY 30 Days #30 tablet
--- NOTE | 2022-02-06 08:55 | Progress Note ---
Assessment and Plan 61-year-old -[place] female with known history of COPD, CHF, coronary artery disease with stent placement in the past, presenting the emergency room today via EMS for evaluation of shortness of breath. Upon arrival of EMS patient was said to be tachypneic and was not on any oxygen. She was tripoding and using accessory muscles of respiration. Initial oxygen saturation was 92% on room air. Patient indicates that she has not followed up with any primary care physician lately and she has not been quite compliant with her medications since primary care physician secondary to COVID. Patient denies any fever or chills, denies any chest pain, no headache or dizziness and no diaphoresis. She indicates that she fell at home and was on the floor for quite some time before getting help to get up from the floor. She denies any head injury, denies any loss of consciousness. Review of patient's records shows: Echo 01/08/2022-EF 50-55%. Mild concentric LVH. Right ventricle mildly dilated. Right ventricle systolic function is grossly normal. Extremities dilated. Moderate to severe tricuspid regurgitation. Echo 09/15/2020-LVEF is 50 to 55%. LV SF is normal. Moderate LVH. RV SF is normal. Moderate pulmonary hypertension cannot be excluded due to poor regurgitant envelope [facility] 06/20/2018 successful PCI with intravascular ultrasound of the ramus with DIANELYS which was 100% culprit vessel with DIANELYS. Left main patent, LAD patent. RCA moderate to severe tortuosity with mid stent patent, circumflex patent, ARIELA 50% with sintia 100% with successful PCI. Acute diastolic dysfunction Echo 03/25/2021 EF 50 to 55%, moderate concentric left ventricular hypertrophy. Right ventricle mildly dilated, right ventricle hypokinetic. Left atrium moderately dilated right atrium mildly dilated. Mild to moderate tricuspid reg urgitation. Moderate pulmonary hypertension. Past Medical History: arthritis, CAD, COPD, diabetes, DVT, hypertension, pulmonary embolism, other (History of gout) Past Surgical History: appendectomy, cholecystectomy, hysterectomy, PTCA, Other (Tonsillectomy) Patient has history of smoking 50 years x 1/1/2 pack for week. Denies alcohol or drug abuse. Not and has three children. Allergic to penicillin. Upon arrival in the emergency room, blood pressure was quite elevated with systolic in the 200s and diastolic in the low 100s. Patient did not respond well to IV hydralazine and metoprolol and was subsequently placed on Cardene drip. Work-up in the emergency room reveals elevated BNP of 11,363. Chest x-ray shows CHF exacerbation. Less severe when compared to prior. Patient being admitted for malignant hypertensive urgency and CHF exacerbation. Patient Morbidly Obese. awake ,on nasal canula 3 litres O2, and O2 saturation running 96%. Patient receiving breathing treatment. No acute respiratory distress at rest. Patient sitting up in chair. Patient afebrile. Has no leukocytosis. Blood pressure 180/85, Pulse 69 , Respirations 18. Chest xray done 01/28/22 reported CHF exacerbation, less severe when compared to prior. Doppler study of right lower extremity done 01/29/22 reported No sonographic evidence for DVT in the right lower extremity. Patient is on Brovanna/Budesonide aerosol treatments q 12 hours, Albuterol inhaler, Famotidine. Recommend DVT prophylaxis. Albuterol/atrovent aerosol treatments prn for shortness of breath. - Patient Problems (1) Acute on chronic systolic (congestive) heart failure Status: Acute Plan to address problem: Patient is on I/V Lasix. Management as per cardiology. (2) COPD exacerbation Status: Acute Plan to address problem: O2 3 litres via nasal canula. Brovanna/Budesonide aerosol treatments q 12hours. Albuterol/atrovent aerosol treatments q 6 hours prn for shortness of breath. Continue famotidine. Recommend DVT prophylaxis. PFTs as out patient. (3) Acute respiratory failure with hypoxia Status: Acute Plan to address problem: O2 3 litres via nasal canula. Brovanna/Budesonide aerosol treatments q 12hours. Albuterol/atrovent aerosol treatments q 6 hours prn for shortness of breath. Continue famotidine. Recommend DVT prophylaxis (4) Hypertensive emergency Status: Acute Plan to address problem: Patient is on nifedipine, Clonidine, Hydralazine, Metaprolol. Management as per primary care and cardiology. (5) Morbid obesity with body mass index of 40.0-49.9 Status: Acute Plan to address problem: Recommend to loose weight. (6) Nicotine dependence Status: Acute Qualifiers: Substance use status: in withdrawal Plan to address problem: Counseled to stop smoking. (7) Obesity hypoventilation syndrome Status: Acute Plan to address problem: ABGs on room air during day time. Recommend to loose weight. BIPAP during night time, PRN for sleepiness or shortness of breath during day time. (8) ADAN (obstructive sleep apnea) Status: Chronic Plan to address problem: BIPAP during night time. (9) Diabetes mellitus, type 2 Status: Chronic Plan to address problem: Management as per primary care. (10) Pulmonary hypertension Status: Chronic Plan to address problem: Echocardiogram 03/25/21 reported moderate pulmonary hypertension. Subjective Date of service: 02/06/22 Principal diagnosis: HTNsive urgency; AE-CHF; AE-COPD; Ac on ch hypoxemic resp failure; Obesity Interval history: 61-year-old -[place] female with known history of COPD, CHF, coronary artery disease with stent placement in the past, presenting the emergency room today via EMS for evaluation of shortness of breath. Upon arrival of EMS patient was said to be tachypneic and was not on any oxygen. She was tripoding and using accessory muscles of respiration. Initial oxygen saturation was 92% on room air. Patient indicates that she has not followed up with any primary care physician lately and she has not been quite compliant with her medications since primary care physician secondary to COVID. Patient denies any fever or chills, denies any chest pain, no headache or dizziness and no diaphoresis. She indicates that she fell at home and was on the floor for quite some time before getting help to get up from the floor. She denies any head injury, denies any loss of consciousness. Review of patient's records shows: Echo 01/08/2022-EF 50-55%. Mild concentric LVH. Right ventricle mildly dilated. Right ventricle systolic function is grossly normal. Extremities dilated. Moderate to severe tricuspid regurgitation. Echo 09/15/2020-LVEF is 50 to 55%. LV SF is normal. Moderate LVH. RV SF is normal. Moderate pulmonary hypertension cannot be excluded due to poor regurgitant envelope [facility] 06/20/2018 successful PCI with intravascular ultrasound of the ramus with DIANELYS which was 100% culprit vessel with DIANELYS. Left main patent, LAD patent. RCA moderate to severe tortuosity with mid stent patent, circumflex patent, ARIELA 50% with sintia 100% with successful PCI. Acute diastolic dysfunction Echo 03/25/2021 EF 50 to 55%, moderate concentric left ventricular hypertrophy. Right ventricle mildly dilated, right ventricle hypokinetic. Left atrium moderately dilated right atrium mildly dilated. Mild to moderate tricuspid regurgitation. Moderate pulmonary hypertension. Past Medical History: arthritis, CAD, COPD, diabetes, DVT, hypertension, pulmonary embolism, other (History of gout) Past Surgical History: appendectomy, cholecystectomy, hysterectomy, PTCA, Other (Tonsillectomy) Patient has history of smoking 50 years x 1/1/2 pack for week. Denies alcohol or drug abuse. Not and has three children. Allergic to penicillin. Upon arrival in the emergency room, blood pressure was quite elevated with systolic in the 200s and diastolic in the low 100s. Patient did not respond wel l to IV hydralazine and metoprolol and was subsequently placed on Cardene drip. Work-up in the emergency room reveals elevated BNP of 11,363. Chest x-ray shows CHF exacerbation. Less severe when compared to prior. Patient being admitted for malignant hypertensive urgency and CHF exacerbation. Patient Morbidly Obese. awake ,on nasal canula 3 litres O2, and O2 saturation running 96%. Patient receiving breathing treatment. No acute respiratory distress at rest. Patient sitting up in chair. Patient afebrile. Has no leukocytosis. Blood pressure 180/85, Pulse 69 , Respirations 18. Chest xray done 01/28/22 reported CHF exacerbation, less severe when compared to prior. Doppler study of right lower extremity done 01/29/22 reported No sonographic evidence for DVT in the right lower extremity. Patient is on Brovanna/Budesonide aerosol treatments q 12 hours, Albuterol inhaler, Famotidine. Recommend DVT prophylaxis. Albuterol/atrovent aerosol treatments prn for shortness of breath. Objective Vital Signs - 12hr 02/05/22 02/05/22 02/05/22 22:00 22:57 22:58 Temperature Pulse Rate 88 88 Respiratory Rate Blood Pressure 164/94 O2 Sat by Pulse 99 Oximetry 02/05/22 23:53 Temperature 97.5 F L Pulse Rate 70 Respiratory 16 Rate Blood Pressure 176/84 O2 Sat by Pulse 96 Oximetry Constitutional: no acute distress, alert Eyes: non-icteric ENT: oropharynx moist Neck: supple, no lymphadenopathy, no JVD, other (large circumference) Effort: normal Ascultation: Bilateral: diminished breath sounds Percussion: Bilateral: not dull Cardiovascular: regular rate and rhythm, other (S1,S2) Gastrointestinal: normoactive bowel sounds, soft, non-tender, non-distended (protuberant) Integumentary: normal Extremities: no cyanosis, no edema, pulses normal, no ischemia or petechiae Neurologic: normal mental status, non-focal exam, pupils equal and round, CN II- XII normal, motor strength normal and Psychiatric: mood appropriate, affect normal CBC and BMP: 01/28/22 16:32 02/04/22 07:12 ABG, PT/INR, D-dimer: PT/INR, D-dimer PT 15.3 Sec. (12.2-14.9) H 01/28/22 16:32 INR 1.09 (0.87-1.13) 01/28/22 16:32 Abnormal lab findings: Abnormal Labs 01/28/22 01/28/22 01/28/22 16:32 16:32 16:32 RBC 5.13 H MCV 69 L MCH 21 L RDW 25.0 H Seg Neuts % (Manual) 88.0 H Lymphocytes % (Manual) 6.0 L Lymphocytes # (Manual) 0.3 L PT 15.3 H Chloride Carbon Dioxide BUN Glucose POC Glucose ALT 6 L Alkaline Phosphatase 221 H CK-MB (CK-2) Rel Index NT-Pro-B Natriuret Pep Lipase 12 L 01/28/22 01/28/22 01/29/22 16:32 16:32 04:07 RBC MCV MCH RDW Seg Neuts % (Manual) Lymphocytes % (Manual) Lymphocytes # (Manual) PT Chloride Carbon Dioxide BUN Glucose 210 H POC Glucose ALT Alkaline Phosphatase CK-MB (CK-2) Rel Index 8.2 H NT-Pro-B Natriuret Pep 00624 H Lipase 01/29/22 01/29/22 01/29/22 07:31 11:08 16:05 RBC MCV MCH RDW Seg Neuts % (Manual) Lymphocytes % (Manual) Lymphocytes # (Manual) PT Chloride Carbon Dioxide BUN Glucose POC Glucose 164 H 162 H 133 H ALT Alkaline Phosphatase CK-MB (CK-2) Rel Index NT-Pro-B Natriuret Pep Lipase 01/29/22 01/30/22 01/30/22 21:53 07:39 10:21 RBC MCV MCH RDW Seg Neuts % (Manual) Lymphocytes % (Manual) Lymphocytes # (Manual) PT Chloride Carbon Dioxide 31 H BUN 23 H Glucose 108 H POC Glucose 166 H 133 H ALT Alkaline Phosphatase CK-MB (CK-2) Rel Index NT-Pro-B Natriuret Pep Lipase 01/30/22 01/30/22 01/31/22 11:20 22:25 05:32 RBC MCV MCH RDW Seg Neuts % (Manual) Lymphocytes % (Manual) Lymphocytes # (Manual) PT Chloride Carbon Dioxide 31 H BUN 22 H Glucose POC Glucose 110 H 115 H ALT Alkaline Phosphatase CK-MB (CK-2) Rel Index NT-Pro-B Natriuret Pep Lipase 01/31/22 01/31/22 01/31/22 08:27 11:26 15:27 RBC MCV MCH RDW Seg Neuts % (Manual) Lymphocytes % (Manual) Lymphocytes # (Manual) PT Chloride Carbon Dioxide BUN Glucose POC Glucose 119 H 112 H 110 H ALT Alkaline Phosphatase CK-MB (CK-2) Rel Index NT-Pro-B Natriuret Pep Lipase 01/31/22 02/01/22 02/01/22 20:45 04:23 07:43 RBC MCV MCH RDW Seg Neuts % (Manual) Lymphocytes % (Manual) Lymphocytes # (Manual) PT Chloride 97.2 L Carbon Dioxide BUN 18 H Glucose 106 H POC Glucose 112 H 130 H ALT Alkaline Phosphatase CK-MB (CK-2) Rel Index NT-Pro-B Natriuret Pep Lipase 02/01/22 02/01/22 02/02/22 15:20 20:39 07:21 RBC MCV MCH RDW Seg Neuts % (Manual) Lymphocytes % (Manual) Lymphocytes # (Manual) PT Chloride Carbon Dioxide BUN Glucose POC Glucose 146 H 151 H 111 H ALT Alkaline Phosphatase CK-MB (CK-2) Rel Index NT-Pro-B Natriuret Pep Lipase 02/02/22 02/02/22 02/03/22 11:03 15:08 07:11 RBC MCV MCH RDW Seg Neuts % (Manual) Lymphocytes % (Manual) Lymphocytes # (Manual) PT Chloride 96.9 L Carbon Dioxide BUN Glucose 102 H POC Glucose 124 H 120 H ALT Alkaline Phosphatase CK-MB (CK-2) Rel Index NT-Pro-B Natriuret Pep Lipase 09/24/22 09/25/22 09/25/22 20:04 07:12 21:03 RBC MCV MCH RDW Seg Neuts % (Manual) Lymphocytes % (Manual) Lymphocytes # (Manual) PT Chloride Carbon Dioxide 31 H BUN Glucose 111 H POC Glucose 130 H 164 H ALT Alkaline Phosphatase CK-MB (CK-2) Rel Index NT-Pro-B Natriuret Pep Lipase 02/05/22 02/05/22 02/06/22 08:06 20:42 08:08 RBC MCV MCH RDW Seg Neuts % (Manual) Lymphocytes % (Manual) Lymphocytes # (Manual) PT Chloride Carbon Dioxide BUN Glucose POC Glucose 113 H 107 H 133 H ALT Alkaline Phosphatase CK-MB (CK-2) Rel Index NT-Pro-B Natriuret Pep Lipase Allied health notes reviewed: nursing
[2022-02-06] MEDS: IPRATROPIUM 0.02% NEBU 2.5 ML IH SCH ×3 (09:32→20:18)
[2022-02-06] MEDS: BUDESONIDE 0.5 MG/2 ML NEBU IH SCH ×2 (09:32→20:18)
[2022-02-06] MEDS: ARFORMOTEROL 15 MCG/2 ML NEBU IH SCH ×2 (09:34→20:17)
[2022-02-06] MEDS ORDERED: FUROSEMIDE 40 MG TAB PO SCH (10:00)
[2022-02-06] MEDS: INSULIN LISPRO 100 UNIT/ML SUB-Q SCH ×3 (10:06→17:43)
[2022-02-06] MEDS: CLOPIDOGREL 75 MG TAB PO SCH (10:07)
[2022-02-06] MEDS: NIFEdipine XL 90 MG TAB PO SCH (10:07)
[2022-02-06] MEDS: FAMOTIDINE 20 MG TAB PO SCH (10:07)
[2022-02-06] MEDS: cloNIDine 0.1 MG TAB PO SCH (10:07)
[2022-02-06] MEDS: VALSARTAN 160MG TAB PO SCH (10:07)
[2022-02-06] MEDS: ASPIRIN EC 81 MG TAB PO SCH (10:07)
[2022-02-06] MEDS: METOPROLOL TARTRATE 50 MG TAB PO SCH (10:08)
[2022-02-06] MEDS: CITALOPRAM 20 MG TAB PO SCH (10:08)
[2022-02-06] MEDS: MULTIVITAMINS,THER W-MINERALS TAB PO SCH (10:08)
[2022-02-06 18:34] VITALS: BP 175/100
[2022-02-06] MEDS ORDERED: cloNIDine 0.2 MG TAB PO ONE (19:00)
[2022-02-06] MEDS ORDERED: VALSARTAN 160MG TAB PO ONE (19:00)
== END 2022-02-06 18:23 | DRG 291 ==
LOC: ED 13:48 → CC1 23:54 → 4A 01-29 17:50
PROVIDERS: ADMIT Internal Medicine Geriatric Medicine; ATTEND Internal Medicine
PROC: 5A09357 Assistance with Respiratory Ventilation, Less than 24 Consecutive Hours, Continuous Positive Airway Pressure (ICD-10-PCS; 2022-02-01)
PROC: 4A033R1 Measurement of Arterial Saturation, Peripheral, Percutaneous Approach (ICD-10-PCS; principal; 2022-02-03)
DX: I11.0 Hypertensive heart disease with heart failure (principal); I50.33 Acute on chronic diastolic (congestive) heart failure; J96.21 Acute and chronic respiratory failure with hypoxia; Z68.42 Body mass index [BMI] 45.0-49.9, adult; J44.1 Chronic obstructive pulmonary disease with (acute) exacerbation; I16.1 Hypertensive emergency; E66.2 Morbid (severe) obesity with alveolar hypoventilation; F17.203 Nicotine dependence unspecified, with withdrawal; J81.1 Chronic pulmonary edema; I42.9 Cardiomyopathy, unspecified; Z20.822 Contact with and (suspected) exposure to COVID-19; I25.10 Atherosclerotic heart disease of native coronary artery without angina pectoris; W18.39XA Other fall on same level, initial encounter; E78.2 Mixed hyperlipidemia; M10.9 Gout, unspecified; Z91.19 Patient's noncompliance with other medical treatment and regimen; Z98.61 Coronary angioplasty status; R73.9 Hyperglycemia, unspecified; F41.9 Anxiety disorder, unspecified; I27.20 Pulmonary hypertension, unspecified; Z71.6 Tobacco abuse counseling; Z90.710 Acquired absence of both cervix and uterus; Z88.0 Allergy status to penicillin; Z90.49 Acquired absence of other specified parts of digestive tract; I25.2 Old myocardial infarction; Z86.711 Personal history of pulmonary embolism; Z79.82 Long term (current) use of aspirin; Y93.89 Activity, other specified; Y92.89 Other specified places as the place of occurrence of the external cause; Y99.8 Other external cause status; Z99.81 Dependence on supplemental oxygen
CPT/HCPCS: 36415; 71045; 80048; 80053; 80307; 81001; 82010; 82140; 82550; 82553; 82962; 83036; 83690; 83735; 83880; 84484; 85007; 85025; 85610; 93005; 94640; 94760; 96374; 96375; 99285; 99406; G0378; J3490; Q9967; J0360; J1170; J1815; J1940; J2270; J2405; J2930; J7050; U0003